=== PATIENT | female | born 1955 | race Caucasian/White ===

== ENCOUNTER 2023-05-29 07:43 | Outpatient (OUT) | payer MEDICARE, MEDICAID, SELFPAY ==
--- NOTE | 2023-05-29 07:48 | CT_ITS ---
The [address] [address] Patient Name: FRANKO NUNEZ MRN: [id number] date: 1955 Sex: F Assigned Patient Location: CT Current Patient Location: CT Accession/Order Number: [id number] Exam Date: 05/29/2023 07:55 Report Date: 05/29/2023 08:49 At the request of: FAN HOWARD Procedure: CT lung screening low-dose EXAMINATION: CT lung screening low-dose HISTORY: Lung cancer screening Z12.2, Nicotine dependence F17.219 COMPARISON: No relevant comparison available. TECHNIQUE: Axial, Coronal, and Sagittal images were created without the administration of IV contrast material. Dose reduction techniques were achieved by using automated exposure control and/or adjustment of mA and/or kV according to patient size and/or use of iterative reconstruction technique. FINDINGS: LUNGS: Mild emphysematous changes and stable appearance of a few scattered punctate 3 mm nodules. PLEURA: No mass, effusion, or pneumothorax. VASCULATURE: No abnormality. ALISIA: No mass or pathologic adenopathy. MEDIASTINUM: No mass or pathologic adenopathy. CARDIAC: No enlargement, pericardial thickening, or significant calcification. AORTA: No aneurysm or dissection. CHEST WALL: No mass or axillary adenopathy BONES: No bone lesion or fracture. LIMITED ABDOMEN: No suspicious findings. Limited images of the upper abdomen. OTHER: Negative. CT/CT lung screening low-dose IMPRESSION: 1. Lung-RADS 2- Benign Appearance or Behavior. Nodules with a very low likelihood of becoming a clinically active cancer due to size or lack of growth. Follow-up CT Chest in 1 year. Electronically authenticated by: YANELIS ENGEL Date: 05/29/2023 08:49
== END 2023-05-29 07:44 | disposition home or self-care (01) ==
LOC: CT 07:43
PROVIDERS: PCP Nurse Practitioner; Visit Provider Internal Medicine
DX: J44.9 Chronic obstructive pulmonary disease, unspecified (principal); Z12.2 Encounter for screening for malignant neoplasm of respiratory organs; F17.219 Nicotine dependence, cigarettes, with unspecified nicotine-induced disorders
CPT/HCPCS: 71271

== ENCOUNTER 2023-06-04 07:15 | Outpatient (OUT) | payer MEDICARE, MEDICAID, SELFPAY ==
--- NOTE | 2023-06-04 08:25 | CA_ITS ---
Patient: FRANKO NUNEZ Exam Date: 06/04/2023 : 1955 Gender:F Ordering : VERONICA FLOR Admission #: [id number] Family : Order #: [id number] CLICK HERE TO VIEW EXAM ECHOCARDIOGRAM REPORT PROCEDURE: CA ECHO DOPPLER COMPLETE INDICATIONS: Benign essential HTN, Nonrheumatic MV regurgitation COMPARISON: None. DESCRIPTION: COMPLETE ECHOCARDIOGRAM Real-time transthoracic echocardiography with 2D, M-mode, spectral and color flow Doppler performed. QUALITY: Technical quality was adequate. LEFT VENTRICLE: Normal chamber size. Proximal septal hypertrophy (sigmoid septum). LV EF: Global left ventricular systolic function is normal. Calculated left ventricular ejection fraction is 60% DIASTOLIC: Unable to assess diastolic function. ATRIAL SEPTUM: Inadequately seen. LEFT ATRIUM: Mild dilatation. RIGHT ATRIUM: Mild dilatation. RIGHT VENTRICLE: Normal chamber size. Normal right ventricular systolic function. TRICUSPID VALVE: Normal mobility and thickness. No stenosis with trivial regurgitation. Mild pulmonary hypertension. RVSP 38mmHg MITRAL VALVE: Mildly thickened with normal mobility. No evidence of mitral valve stenosis. Mild mitral annular calcification. Moderate mitral regurgitation. AORTIC VALVE: Normal trileaflet appearance. Thickened aortic valve. Normal leaflet mobility. No evidence of aortic valve stenosis. No aortic regurgitation. AORTIC ROOT: Normal diameter and appearance. PULMONIC VALVE: Normal thickness and mobility. No stenosis. No regurgitation. PERICARDIUM: Anterior free space; trivial effusion versus fat pad. IVC: Collapses with inspirations. Normal size. CONCLUSION: 1. Global left ventricular systolic function is normal; visually estimated ejection fraction is 60 to 65%. No wall motion abnormalities. 2. Unable to assess diastolic function. 3. Biatrial enlargement. 4. The right ventricle is normal in size and systolic function. 5. Mildly elevated right ventricular systolic pressure. 6. Moderate mitral regurgitation. 7. Anterior free space; trivial effusion versus fat pad. Adult Echocardiography Procedure Report Left Ventricle LVEDD (3.7 - 5.6 cm): 4.92 cm LVESD (2.2 - 4.0 cm): 3.40 cm LVIVS thickness (0.6 - 1.2 cm): 1.19 cm LVPW thickness (0.5 - 1.0 cm): 1.02 cm e': 0.07 m/s E - e': 14.24 LVOT Max Gradient: 1.75 mm[Hg] LVOT Area (cm2): 0.66 m/s Peak Velocity (LVOT): 0.66 m/s Mean Velocity (LVOT): 0.45 m/s LVOT Diameter 1.99 cm Left Ventricular Ejection Fraction: 60.39 % Left Atrium LA Volume Index (2D A2C): 37.64 ml/m2 Left Atrium Systolic Dimension: 4.16 cm Mitral Valve MV E to A Ratio: 1.28 Mitral Valve A-Wave Peak Velocity: 0.76 m/s Mitral Valve E-Wave Peak Velocity: 0.97 m/s Right Ventricle RV Internal Diastolic Dimension: 3.62 cm Aorta AO Root Diam: 3.21 cm Ascending Ao Diam: 2.79 cm Aortic Valve AoV Area (Peak Donaldo): 1.65 cm2, 1.65 cm2 AoV Area (VTI): 1.77 cm2, 1.77 cm2 Peak Velocity(Antegrade Flow): 1.25 m/s Peak Gradient(Antegrade Flow): 6.21 mm[Hg] Mean Velocity(Antegrade Flow): 0.81 m/s Mean Gradient(Antegrade Flow): 3.01 mm[Hg] Velocity Time Integral: 29.60 cm Tricuspid Valve Peak Velocity (Regurgitant Flow): 1.62 m/s, 2.94 m/s Pulmonic Valve Mean Gradient: 1.11 mm[Hg] Mean Velocity: 0.49 m/s Peak Velocity: 0.72 m/s, 0.75 m/s Peak Gradient: 2.23 mm[Hg], 2.06 mm[Hg] Right Atrium Right Atrium Systolic Pressure: 56.67 ml, 56.67 ml Dictated by: Isra Ortez M.D. on 06/04/2023 at 15:44 Approved by: Isra Ortez M.D. on 06/04/2023 at 15:48
== END 2023-06-04 07:16 | disposition home or self-care (01) ==
LOC: CARD 07:16
PROVIDERS: PCP Nurse Practitioner; Visit Provider Nurse Practitioner
DX: I34.0 Nonrheumatic mitral (valve) insufficiency (principal); I10 Essential (primary) hypertension
CPT/HCPCS: 93306

== ENCOUNTER 2023-06-09 09:01 | Outpatient (OUT) | payer MEDICARE, MEDICAID, SELFPAY ==
[2023-06-09 09:41] LABS: Anion Gap 10.8; BUN Creatinine Ratio 34.5; Calcium 8.9 mg/dL (8.5-10.1); Carbon Dioxide 28.4 mmol/L (21.0-32.0); Chloride 103 mmol/L (98-107); Estimated GFR (African America >60 (>=60); Estimated GFR (Non-African Ame >60 (>=60); Glucose 125 mg/dL (74-106); Potassium 4.2 mmol/L (3.5-5.1); Sodium 138 mmol/L (136-145)
== END 2023-06-09 09:02 | disposition home or self-care (01) ==
PROVIDERS: PCP Nurse Practitioner; Visit Provider Nurse Practitioner
DX: I34.0 Nonrheumatic mitral (valve) insufficiency (principal)
CPT/HCPCS: 36415; 80048

== ENCOUNTER 2023-06-19 08:49 | Outpatient (OUT) | payer MEDICARE, MEDICAID, SELFPAY ==
[2023-06-19 08:43] LABS: Basophils Percent Auto 0.6 % (0.2-2.0); Eosinophils Absolute Auto 0.2 10^3/uL (0.0-0.7); Eosinophils Percent Auto 2.8 % (0.9-7.0); Hematocrit 47.6 % (36.0-48.0); Hemoglobin 16.3 g/dL (12.0-16.0); Immature Granulocytes Abs Auto 0.02 10^3/uL (0.00-0.03); Immature Granulocytes Pct Auto 0.3 % (0.0-0.5); Lymphocytes Absolute Auto 1.6 10^3/uL (1.2-3.8); Lymphocytes Percent Auto 25.5 % (20.5-60.0); Mean Corpuscular HGB Conc 34.2 g/dL (29.9-35.2); Mean Corpuscular Hemoglobin 30.4 pg (26.7-34.0); Mean Corpuscular Volume 88.8 fL (81.0-99.0); Mean Platelet Volume 10.7 fL (9.5-13.5); Monocytes Absolute Auto 0.6 10^3/uL (0.3-0.8); Monocytes Percent Auto 9.7 % (1.7-12.0); Neutrophils Absolute Auto 3.9 10^3/uL (1.4-6.5); Neutrophils Percent Auto 61.1 % (43.0-75.0); Platelet Count 258 10^3/uL (150-450); Red Blood Count 5.36 10^6/uL (4.20-5.40); Red Cell Distribution Width 12.6 % (11.0-15.0); White Blood Count 6.4 10^3/uL (4.0-11.0)
[2023-06-19 09:33] LABS: Alanine Aminotransferase 51 U/L (14-59); Albumin Globulin Ratio 0.9; Albumin Level 3.7 g/dL (3.4-5.0); Alkaline Phosphatase 67 U/L (46-116); Anion Gap 11.8; Aspartate Amino Transferase 33 U/L (15-37); BUN Creatinine Ratio 22.9; Bilirubin Total 0.8 mg/dL (0.2-1.0); Calcium 9.4 mg/dL (8.5-10.1); Carbon Dioxide 30.2 mmol/L (21.0-32.0); Chloride 103 mmol/L (98-107); Chol HDL Ratio 4.2; Cholesterol 166 mg/dL (<=200); Estimated GFR (African America >60 (>=60); Estimated GFR (Non-African Ame >60 (>=60); Free T3 2.02 pg/mL (2.18-3.98); Globulin 4.2 g/dL; Glucose 132 mg/dL (74-106); HDL Cholesterol 40 mg/dL (40-60); Sodium 140 mmol/L (136-145); Thyroid Stimulating Hormone 7.566 uIU/mL (0.358-3.740); Total Protein 7.9 g/dL (6.4-8.2); Triglycerides 165 mg/dL (<=150)
[2023-06-19 09:51] LABS: Free T4 0.58 ng/dL (0.76-1.46)
[2023-06-19 10:52] LABS: Estimated Average Glucose 117 mg/dL; Glycohemoglobin A1C 5.7 % (4.5-6.2)
== END 2023-06-19 08:50 | disposition home or self-care (01) ==
LOC: LAB 08:49
PROVIDERS: PCP Nurse Practitioner; Visit Provider Nurse Practitioner
DX: I10 Essential (primary) hypertension (principal); E78.2 Mixed hyperlipidemia; E05.00 Thyrotoxicosis with diffuse goiter without thyrotoxic crisis or storm; R73.09 Other abnormal glucose
CPT/HCPCS: 36415; 80053; 80061; 83036; 84439; 84443; 84481; 85025

== ENCOUNTER 2023-07-09 07:47 | Outpatient (OUT) | payer MEDICARE, MEDICAID, SELFPAY ==
[2023-07-09 08:33] LABS: Anion Gap 8.6; BUN Creatinine Ratio 25.3; Calcium 9.2 mg/dL (8.5-10.1); Carbon Dioxide 29.4 mmol/L (21.0-32.0); Chloride 106 mmol/L (98-107); Estimated GFR (African America >60 (>=60); Estimated GFR (Non-African Ame 59 (>=60); Glucose 123 mg/dL (74-106); Sodium 140 mmol/L (136-145)
== END 2023-07-09 07:48 | disposition home or self-care (01) ==
LOC: LAB 07:48
PROVIDERS: PCP Nurse Practitioner; Visit Provider Nurse Practitioner
DX: I10 Essential (primary) hypertension (principal)
CPT/HCPCS: 36415; 80048

== ENCOUNTER 2023-07-17 08:31 | Emergency (ER) | payer MEDICARE, MEDICAID, SELFPAY ==
[2023-07-17 08:44] VITALS: BP 169/80; PULSE 67; RESP 18; TEMP 36.6; O2SAT 95; BMI 35.4
--- NOTE | 2023-07-17 08:51 | XR_ITS ---
The [address] [address] Patient Name: FRANKO NUNEZ MRN: [id number] date: 1955 Sex: F Assigned Patient Location: ER Current Patient Location: .[facility] Accession/Order Number: [id number] Exam Date: 07/17/2023 09:00 Report Date: 07/17/2023 09:20 At the request of: GERONIMO FERGUSON Procedure: XR shoulder RT min 2V EXAM: XR shoulder RT min 2V HISTORY: Right shoulder pain which radiates into the neck and limited range of motion for a few weeks. COMPARISON: None. TECHNIQUE: 3 view right shoulder series performed. FINDINGS: The bony alignment and mineralization are within normal limits. The right clavicle, right scapula, visualized portions of the ribs and visualized portions of the proximal right humerus are unremarkable. There is no fracture, osseous destruction or periostitis. The acromioclavicular and glenohumeral articulations are maintained. There is a type II acromion. The acromiohumeral and coracohumeral intervals are maintained. There is no soft tissue abnormality. There are small endplate spurs at a few levels along the thoracic spine. There is atheromatous calcification at the aortic arch. XR/XR shoulder RT min 2V IMPRESSION: The right shoulder is unremarkable. There are small endplate spurs at a few levels along the thoracic spine. Electronically authenticated by: SUNNY CALVILLO Date: 07/17/2023 09:20
--- NOTE | 2023-07-17 09:33 | PC.NURSE ---
PT STATES HX RT SHOULDER DISLOCATION 25 YRS AGO.C/O RT SHOULDER PAIN WITH LIMITED ROM. PT STATES FREQUENT HEAVY LIFTING.
--- NOTE | 2023-07-17 09:37 | ED.EXTPRO1 ---
HPI - Extremity Problem General Chief complaint: Extremity Problem, Nontraumatic Stated complaint: UPPER EXTREMITY INJURY, NECK & SHOULDER Time Seen by Provider: 07/17/23 09:29 Source: patient Mode of arrival: walk-in Limitations: no limitations History of Present Illness HPI Narrative: 67-year-old female presents for right shoulder pain that she's had for two weeks. She gives no history of unusual activity though she's been helping another person clean her house. No trauma such as a fall. It doesn't seem to radiate. Contralateral shoulder doesn't hurt. She is right-handed. It's worse in certain positions and moderate to severe. Related Data Previous Rx's Medication Instructions Recorded ibuprofen 800 mg tablet 800 mg PO Q8H PRN pain #20 tabs 07/17/23 tramadol 50 mg tablet 50 mg PO Q6H PRN pain 5 days #20 07/17/23 tabs Allergies Allergy/AdvReac Type Severity Reaction Status Date / Time No Known Drug Allergies Allergy Verified 07/17/23 08:44 Review of Systems ROS Narrative A ten point review of systems is negative except as noted above. Exam Narrative Exam Narrative: Nurses note and vital signs reviewed and patient is not hypoxic. General: The patient appears well and in no apparent distress. Patient is resting comfortably on cart. Skin: Warm, dry, no pallor noted. There is no rash noted. Head: Normocephalic, atraumatic Eye: Normal conjunctiva, no drainage Ears, Nose, Mouth, and Throat: oral mucosa is moist. Nares patent. Cardiovascular: Regular Rate and Rhythm Respiratory: Patient is in no distress, no accessory muscle use Back: non-tender GI: nontender Musculoskeletal: the right arm is not swollen. Radial pulse 2+. Shoulders good range of motion though this causes discomfort. No erythema or bruise or rash. No focal areas tenderness to palpation. Neurological: A&O, normal speech Psychiatric: Cooperative Constitutional Vital Signs, click to edit/add: Last Vital Signs Temp 97.9 F 07/17/23 08:44 Pulse 67 07/17/23 08:44 Resp 18 07/17/23 08:44 BP 169/80 H 07/17/23 08:44 Pulse Ox 95 07/17/23 08:44 O2 Del Method Room Air 07/17/23 08:44 Course Vital Signs Vital signs: Vital Signs Temperature 97.9 F 07/17/23 08:44 Pulse Rate 67 07/17/23 08:44 Respiratory Rate 18 07/17/23 08:44 Blood Pressure 169/80 H 07/17/23 08:44 Pulse Oximetry 95 07/17/23 08:44 Oxygen Delivery Method Room Air 07/17/23 08:44 Temperature 97.9 F 07/17/23 08:44 Pulse Rate 67 07/17/23 08:44 Respiratory Rate 18 07/17/23 08:44 Blood Pressure 169/80 H 07/17/23 08:44 Pulse Oximetry 95 07/17/23 08:44 Oxygen Delivery Method Room Air 07/17/23 08:44 MDM - Extremity (Nontraumatic) MDM Narrative Medical decision making narrative: x-ray per radiology shows no acute findings. She is placed in a sling, application checked by me and found be appropriate, she is neurovascularly intact. With orthopedics. Treatment diagnosis and follow-up were discussed with the patient. Differential Diagnosis Differential diagnosis: Likely other (shoulder sprain, shoulder strain, dislocation, separation, arthritis and rotator cuff injury) Imaging Data right shoulder x-ray: Radiologist's impression: Procedure: XR shoulder RT min 2V EXAM: XR shoulder RT min 2V HISTORY: Right shoulder pain which radiates into the neck and limited range of motion for a few weeks. COMPARISON: None. TECHNIQUE: 3 view right shoulder series performed. FINDINGS: The bony alignment and mineralization are within normal limits. The right clavicle, right scapula, visualized portions of the ribs and visualized portions of the proximal right humerus are unremarkable. There is no fracture, osseous destruction or periostitis. The acromioclavicular and glenohumeral articulations are maintained. There is a type II acromion. The acromiohumeral and coracohumeral intervals are maintained. There is no soft tissue abnormality. There are small endplate spurs at a few levels along the thoracic spine. There is atheromatous calcification at the aortic arch. IMPRESSION: The right shoulder is unremarkable. There are small endplate spurs at a few levels along the thoracic spine. Electronically authenticated by: SUNNY CALVILLO Date: 07/17/2023 09:20 Discharge Plan Discharge Chief Complaint: Extremity Problem, Nontraumatic Clinical Impression: Acute pain of right shoulder Patient Disposition: Home, Self-Care Time of Disposition Decision: 09:34 Condition: Good Mode of Transportation: Private Vehicle Prescriptions / Home Meds: New ibuprofen 800 mg tablet 800 mg PO Q8H PRN (Reason: pain) Qty: 20 0RF tramadol 50 mg tablet 50 mg PO Q6H PRN (Reason: pain) 5 Days Qty: 20 0RF Instructions: Shoulder Pain (ED) Additional Instructions: Follow-up with Dr. Drake Do not wear sling for more than three days Stand Alone Forms: Portal Instructions Referrals: JAIRO WALKER [Primary Care Provider] - 1 week
[2023-07-17 09:45] VITALS: BP 140/80
== END 2023-07-17 09:46 | disposition home or self-care (01) ==
PROVIDERS: Emergency Provider Emergency Medicine; PCP Nurse Practitioner
DX: M25.511 Pain in right shoulder (principal)
CPT/HCPCS: 73030; 99283

== ENCOUNTER 2023-08-11 07:57 | Outpatient (OUT) | payer MEDICARE, MEDICAID, SELFPAY ==
--- NOTE | 2023-08-11 08:00 | XR_ITS ---
The [address] [address] Patient Name: FRANKO NUNEZ MRN: [id number] date: 1955 Sex: F Assigned Patient Location: [facility] Current Patient Location: [facility] Accession/Order Number: [id number] Exam Date: 08/11/2023 08:10 Report Date: 08/11/2023 11:58 At the request of: YANELIS SHOOK Procedure: XR cervical spine 5V EXAMINATION: XR cervical spine 5V HISTORY: Acute Neck PAin M54.2 ; recent fall COMPARISON: No relevant comparison available. FINDINGS: BONES: Multilevel mild degenerative facet arthropathy. No significant spondylosis, scoliosis, fracture, or visible bony lesion. DISC SPACES: Mild narrowing C2-3, C4-5, C5-6. Moderate narrowing C6-7. PARASPINOUS: Negative. No paraspinous abnormality is seen. OTHER: Negative. XR/XR cervical spine 5V IMPRESSION: 1. No appreciable acute abnormality. 2. Multilevel degenerative disc disease and facet arthropathy. Electronically authenticated by: YANELIS ENGEL Date: 08/11/2023 11:58
== END 2023-08-11 07:58 | disposition home or self-care (01) ==
LOC: RAD 07:57
PROVIDERS: PCP Nurse Practitioner; Visit Provider Orthopaedic Surgery
DX: M54.2 Cervicalgia (principal)
CPT/HCPCS: 72050

== ENCOUNTER 2024-03-08 07:00 | Outpatient (OUT) | payer OTHER, SELFPAY ==
--- OUTSIDE RECORDS SUMMARY | 2024-03-08 07:03 | XMS_ITS | CCD ---
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 Final Inspector Name Role Phone RANDAL ORTIZ Attending Unavailable Daley MOWER OPERATOR - POT FILLER, Jairo J Primary [facility] ider BRAULIO LASSITER Consulting Unavailable AJIT ., JERI Attending Unavailable AJIT ., JERI Admitting Unavailable DALEY, JAIRO Primary Care Unavailable AJIT ., JERI Consulting Unavailable JANEEN POOLE Consulting Unavailable AMALIA ., FAVIO Attending Unavailable AMALIA ., FAVIO Admitting Unavailable DALEY, JAIRO Primary Care Unavailable AMALIA .FAVIO Consulting Unavailable ZIEBYADI, DR YANELIS Zaldivar Consulting Unavailable DALEY, JAIRO Primary Care Unavailable PAY ., DR HUMMEL Attending Unavailable PAY ., DR HUMMEL Admitting Unavailable PAY ., DR HUMMEL Consulting Unavailable ELTAHAWY, DR ROCK Consulting Unavailable DALEY, JAIRO Primary Care Unavailable ELTAHAWY, DR ROCK Attending Unavailable ELTAHAWY, DR ROCK Admitting Unavailable ZIEBER, DR YANELIS Zaldivar Consulting Unavailable DALEY, JAIRO Primary Care Unavailable DALEY, JAIRO Attending Unavailable DALEY, JAIRO Admitting Unavailable DALEY, JAIRO Consulting Unavailable JANET, DR XAVIER Gonzalez Consulting Unavailable DALEY, JAIRO Primary Care Unavailable DALEY, JAIRO Attending Unavailable DALEY, JAIRO Admitting Unavailable ZIEBER, DR YANELIS Zaldivar Consulting Unavailable DALEY, JAIRO Consulting Unavailable TIMMIS, DR TSAI Consulting Unavailable DALEY, JAIRO Primary Care Unavailable TIMMIS, DR TSAI Attending Unavailable TIMKVNG, DR TSAI Admitting Unavailable ZIEBYADI, DR YANELIS Zaldivar Consulting Unavailable RACHELEBYADI, DR YANELIS Zaldivar Consulting Unavailable DALEY, JAIRO Primary Care Unavailable SUNNY VALENTIN Attending Unavailable SUNNY VALENTIN Admitting Unavailable SUNNY VALENTIN Consulting Unavailable JANET, DR XAVIER Gonzalez Consulting Unavailable DALEY, JAIRO Primary Care Unavailable SAMSA ., FAN Attending Unavailable SAMSA ., FAN Admitting Unavailable SAMSA ., FAN Consulting Unavailable DR YANELIS ENGEL Consulting Unavailable DALEY, JAIRO Primary Care Unavailable SUNNY VALENTIN Attending Unavailable SUNNY VALENTIN Admitting Unavailable SUNNY VALENTIN Consulting Unavailable PARSELL, BO W Referring Unavailable DALEY, JAIRO J Primary Care Unavailable BO BLACK Referring Unavailable DALEY, JAIRO J Primary Care Unavailable JASON AU Referring Unavailable DALEY, JAIRO J Primary Care Unavailable MILYCIJASON GERBER Referring Unavailable DALEY, JAIRO J Primary Care Unavailable MILYCIJASON GERBER Referring Unavailable DALEY, JAIRO J Primary Care Unavailable JASON AU Admitting Unavailable JASON AU Attending Unavailable DALEY, JAIRO J Primary Care Unavailable PARSELL, BO W Referring Unavailable DALEY, JAIRO J Primary Care Unavailable PARSELLBO W Referring Unavailable DALEY, JAIRO J Primary Care Unavailable Daley MOWER OPERATOR-POT FILLER, Jairo J Primary Care Provid er VERONICA FLOR Attending Unavailable PRANAV ORTEZ Attending Unavailable VERONICA FLOR Attending Unavailable Unavailable Primary Care Provider Unavailabl e RIA DALEYERIMarion Cabrera Attending Unavailable DALEY, JAIRO J Referring Unavailable DALEY, JAIRO J Primary Care Unavailable DALEY, JAIRO J Referring Unavailable DALEY, JAIRO J Primary Care Unavailable CRISTOBAL WHITE Attending Unavailable DALEY, JAIRO Referring Unavailable CRISTOBAL WHITE Attending Unavailable Allergies Allergy Classification Reported Allergen(s) Allergy Type Date of Onset Reaction(s) Facility (5 sources) Silicone adhesive tape Propensity to adverse reactions to drug 3 Rash [facility] (1 source) bee venom Drug allergy (disorder) 6 [facility] (1 source) Latex Drug allergy (disorder) [facility] (6 sources) Adhesive agent; Translations: [ADHESIVE] Propensity to adverse reactions to drug 3 Rash [facility] (6 sources) Lisinopril; Translations: [LISINOPRIL] Drug Allergy 3 Cough [facility] (6 sources) Bee Venom Protein (Honey Bee); Translations: [BEE VENOM PROTEIN (HONEY BEE)] Propensity to adverse reactions to drug 3 [facility] (2 sources) Honey bee venom Allergy to substance 3 Anaphylaxis [facility] (2 sources) Lisinopril Propensity to adverse reactions 3 Cough [facility] (2 sources) Attends Briefs Small Drug Intolerance 3 Rash [facility] NEGATED: Highlighted row has been ruled out! (5 sources) Other Propensity to adverse reactions 2 [facility] Medications Current Medications Medication Drug Class(es) Dates Sig (Normalized) Sig (Original) acetaminophen 500 mg / HYDROcodone bitartrate 7.5 mg oral tablet (5 sources) Opioid Agonist take 1 tablet by mouth once as needed, then take 1 tablet by mouth every four hours as needed hydrocodone-aceta minophen (LORTAB) 7.5-500 MG per tablet Take 1 tablet by mouth. 1 tab Q 4 hrs PRN 0 Active [id number] 200 actuat albuterol 0.09 mg/actuat metered dose inhaler (12 sources) beta2-Adrenergic Agonist Start: 01-13-2024 End: 01-15-2024 take 2 puff(s) by inhalation every four hours as needed for wheezing albuterol (PROVENTIL HFA;VENTOLIN HFA) 90 mcg/actuation inhaler Indications: Chronic bronchitis with emphysema (CMS-HCC) Inhale 2 puffs every 4 (four) hours as needed for wheezing or shortness of breath. 18 g 6 01/15/2024 Active Start: 03-03-2023 End: 01-13-2024 take 2 puff(s) by inhalation every four hours as needed for wheezing albuterol (PROVENTIL HFA;VENTOLIN HFA) 90 mcg/actuation inhaler Indications: Chronic bronchitis with emphysema (CMS-HCC) Inhale 2 puffs every 4 (four) hours as needed for wheezing or shortness of breath. 18 g 6 03/03/2023 01/13/2024 Discontinued (Reorder) Start: 03-03-2023 take 2 puff(s) by mo uth every six hours as needed albuterol HFA 90 mcg/act inhaler TAKE TWO PUFFS BY MOUTH EVERY 6 HOURS NEEDED 0 03/03/2023 Active take 2 puff(s) by in halation four times daily as needed ALBUTEROL IN Inhale into the lungs. 2 puffs 4 times a day PRN 0 Active atomoxetine 25 mg oral capsule (2 sources) Norepinephrine Reuptake Inhibitor Start: 02-06-2012 take 1 capsule by mouth once daily atomoxetine (STRATTERA) 25 MG capsule Take 1 capsule by mouth daily. 30 capsule 11 02/06/2012 Active diclofenac sodium 75 mg delayed release oral tablet (10 sources) Nonsteroidal Anti-inflammatory Drug Start: 01-13-2024 End: 01-15-2024 take 1 tablet by mouth in the morning for pain, then take 1 tablet by mouth at bedtime for pain, then take 1 tablet by mouth in the morning for pain, then take 1 tablet by mouth at bedtime for pain diclofenac (VOLTAREN) 75 mg EC tablet Indications: Arthritis, multiple joint involvement Take 1 tablet (75 mg total) by mouth in the morning and 1 tablet (75 mg total) before bedtime. TAKE 1 TABLET BY MOUTH IN THE MORNING AND 1 TABLET BEFORE BEDTIME. For pain.. 180 tablet 1 01/15/2024 Active Start: 12-11-2023 End: 01-13-2024 take 1 tablet by mouth in the morning for pain, then take 1 tablet by mouth at bedtime for pain, then take 1 tablet by mouth in the morning for pain, then take 1 tablet by mouth at bedtime for pain diclofenac (VOLTAREN) 75 mg EC tablet Indications: Arthritis, multiple joint involvement Take 1 tablet (75 mg total) by mouth in the morning and 1 tablet (75 mg total) before bedtime. TAKE 1 TABLET BY MOUTH IN THE MORNING AND 1 TABLET BEFORE BEDTIME. For pain.. 180 tablet 1 12/11/2023 01/13/2024 Discontinued (Reorder) Start: 08-20-2023 take 1 tablet by tapan th in the morning, then take 1 tablet by mouth at bedtime, then take 1 tablet by mouth in the morning, then take 1 tablet by mouth at bedtime diclofenac (VOLTAREN) 75 mg EC tablet Indications: Arthritis, multiple joint involvement Take 1 tablet (75 mg total) by mouth in the morning and 1 tablet (75 mg total) before bedtime. TAKE 1 TABLET BY MOUTH IN THE MORNING AND 1 TABLET BEFORE BEDTIME. 180 tablet 1 08/20/2023 Active Start: 11-17-2022 take 1 tablet by tapan th in the morning diclofenac (VOLTAREN) 75 MG EC tablet diclofenac sodium 75 mg tablet,delayed release TAKE 1 TABLET BY MOUTH IN THE MORNING AND 1 TABLET BEFORE BEDTIME 0 11/17/2022 Active [id number] 0.3 ml EPINEPHrine 1 mg/ml auto-injector (10 sources) alpha-Adrenergic Agonist, beta-Adrenergic Agonist, Catecholamine Start: 01-16-2023 EPINEPHrine (EPIP EN) 0.3 mg/0.3 mL auto-injector USE DIRECTED FOR BEE STINGS 2 each 3 01/16/2023 Active Start: 02-07-2012 EPINEPHrine (E PIPEN 2-ROSALINDA) 0.3 MG/0.3ML DANIELLE injection Inject 0.3 mLs into the muscle once as needed for 1 dose. 1 Device 1 02/07/2012 Active esomeprazole 40 mg delayed release oral capsule (5 sources) Proton Pump Inhibitor Start: 02-07-2012 take 1 capsule by mouth once daily before breakfast esomeprazole (NEXIUM) 40 MG capsule Take 1 capsule by mouth every morning (before breakfast). 30 capsule 5 02/07/2012 Active FLUoxetine 10 mg oral capsule (10 sources) Serotonin Reuptake Inhibitor Start: 01-13-2024 End: 01-15-2024 take 1 capsule by mouth once daily FLUoxetine (PROzac) 10 mg capsule Indications: Anxiety and depression Take 1 capsule (10 mg total) by mouth nightly. 90 capsule 1 01/15/2024 Active Start: 12-11-2023 End: 01-13-2024 take 1 capsule by mouth once daily FLUoxetine (PROzac) 10 mg capsule Indications: Anxiety and depression Take 1 capsule (10 mg total) by mouth nightly. 90 capsule 1 12/11/2023 01/13/2024 Discontinued (Reorder) Start: 08-03-2023 take 1 capsule by mo uth once daily FLUoxetine (PROzac) 10 mg capsule Indications: Anxiety and depression TAKE 1 CAPSULE (10 MG TOTAL) BY MOUTH NIGHTLY. 90 capsule 1 08/03/2023 Active Start: 09-04-2022 take 1 capsule by mo uth once daily FLUoxetine (PROZAC) 10 MG capsule fluoxetine 10 mg capsule TAKE 1 CAPSULE (10 MG TOTAL) BY MOUTH NIGHTLY. 0 09/04/2022 Active 60 actuat fluticasone propionate 0.25 mg/actuat / salmeterol 0.05 mg/actuat dry powder inhaler (5 sources) Corticosteroid, beta2-Adrenergic Agonist fluticasone-salmeter ol (ADVAIR) 250-50 MCG/DOSE AEPB Inhale 1 puff into the lungs every 12 hours. 2 puffs 0 Active 30 actuat fluticasone furoate 0.1 mg/actuat / umeclidinium 0.0625 mg/actuat / vilanterol 0.025 mg/actuat dry powder inhaler (10 sources) Anticholinergic, Corticosteroid, beta2-Adrenergic Agonist Start: 2023 End: 2023 take 1 puff(s) by mouth once daily TRELEGY ELLIPTA 100-62.5-25 mcg blister with device Indications: Chronic bronchitis with emphysema (CMS-HCC) INHALE 1 PUFF BY MOUTH EVERYDAY *RINSE MOUTH AFTER USE* Strength: 100-62.5-25 mcg 28 each 6 01/15/2024 Active Start: 08-20-2023 End: 01-13-2024 take 1 puff(s) by mouth once daily TRELEGY ELLIPTA 100-62.5-25 mcg blister with device Indications: Chronic bronchitis with emphysema (CMS-HCC) INHALE 1 PUFF BY MOUTH EVERYDAY *RINSE MOUTH AFTER USE* Strength: 100-62.5-25 mcg 28 each 6 08/20/2023 01/13/2024 Discontinued (Reorder) take 1 puff(s) by [facility] once daily asftjaitfws-egvynqmsn-ptmuru (TRELEGY ELLIPTA) 100-62.5-25 MCG/ACT AEPB inhaler Trelegy Ellipta 100 mcg-62.5 mcg-25 mcg powder for inhalation INHALE 1 PUFF BY MOUTH EVERYDAY *RINSE MOUTH AFTER USE* 0 Active gabapentin 300 mg oral capsule (17 sources) Anti-epileptic Agent Start: 01-13-2024 End: 01-15-2024 take 1 capsule by mouth once daily gabapentin (NEURONTIN) 300 mg capsule Indications: Fibromyalgia Take 1 capsule (300 mg total) by mouth nightly. 90 capsule 1 01/15/2024 Active Start: 12-11-2023 End: 03-28-2024 take 1 capsule by mouth once daily in the morning gabapentin (NEURONTIN) 100 mg capsule Indications: Fibromyalgia TAKE 1 CAPSULE BY MOUTH EVERY MORNING AND AFTERNOON Strength: 100 mg 180 capsule 1 01/15/2024 Active Start: 12-11-2023 End: 01-13-2024 take 1 capsule by mouth once daily gabapentin (NEURONTIN) 300 mg capsule Indications: Fibromyalgia Take 1 capsule (300 mg total) by mouth nightly. 90 capsule 1 12/11/2023 01/13/2024 Discontinued (Reorder) Start: 08-20-2023 take 1 capsule by mo uth at bedtime gabapentin (Neurontin) 300 MG capsule Take 300 mg by mouth at bedtime 0 08/20/2023 Active Start: 08-20-2023 take 1 capsule by mo uth once daily in the morning gabapentin (NEURONTIN) 100 mg capsule Indications: Fibromyalgia TAKE 1 CAPSULE BY MOUTH EVERY MORNING AND AFTERNOON Strength: 100 mg 180 capsule 0 08/20/2023 Active Start: 10-28-2022 take 1 capsule by mo uth at bedtime gabapentin (NEURONTIN) 300 MG capsule Take 300 mg by mouth in the morning and at bedtime. 0 10/28/2022 Active levothyroxine sodium 0.025 mg oral tablet (5 sources) l-Thyroxine Start: 01-13-2024 End: 01-15-2024 take 1 tablet by mouth in the morning levothyroxine (SYNTHROID, LEVOTHROID) 25 MCG tablet Indications: Acquired hypothyroidism Take 1 tablet (25 mcg total) by mouth in the morning. 90 tablet 1 01/15/2024 Active Start: 12-15-2023 End: 01-13-2024 take 1 tablet by mouth in the morning levothyroxine (SYNTHROID, LEVOTHROID) 25 MCG tablet Indications: Acquired hypothyroidism Take 1 tablet (25 mcg total) by mouth in the morning. 90 tablet 1 12/15/2023 01/13/2024 Discontinued (Reorder) Start: 10-02-2023 take 1 tablet by tapan th in the morning levothyroxine (SYNTHROID, LEVOTHROID) 50 MCG tablet Indications: Acquired hypothyroidism TAKE 1 TABLET BY MOUTH IN THE MORNING 90 tablet 1 10/02/2023 Active lisinopril 10 mg oral tablet (3 sources) Angiotensin Converting Enzyme Inhibitor Start: 06-25-2023 End: 12-22-2023 take 1 tablet by mouth in the morning lisinopril 10 MG tablet Take 10 mg by mouth in the morning. 0 06/25/2023 12/22/2023 Active losartan potassium 25 mg oral tablet (5 sources) Angiotensin 2 Receptor Julio C Start: 07-03-2023 End: 07-02-2024 losartan (COZAAR) 25 mg tablet Take 1 tablet (25 mg total) by mouth. 0 07/03/2023 07/02/2024 Active methocarbamol 500 mg oral tablet (2 sources) Muscle Relaxant take 1 tablet by mouth three times daily as needed methocarbamol (Robaxin) 500 MG tablet Take 1 tablet by mouth 3 (three) times a day as needed 0 Active metoprolol tartrate 25 mg oral tablet (12 sources) beta-Adrenergic Julio C Start: 01-13-2024 End: 01-15-2024 metoprolol tartrate (LOPRESSOR) 25 mg tablet Indications: Benign essential HTN TAKE 1 TABLET IN THE MORNING AND 1 TABLET BEFORE BEDTIME Strength: 25 mg 180 tablet 1 01/15/2024 Active Start: 12-11-2023 End: 01-13-2024 metoprolol tartrate (LOPRESS OR) 25 mg tablet Indications: Benign essential HTN TAKE 1 TABLET IN THE MORNING AND 1 TABLET BEFORE BEDTIME Strength: 25 mg 180 tablet 1 12/11/2023 01/13/2024 Discontinued (Reorder) Start: 08-20-2023 take 1 tablet by tapan th in the morning metoprolol tartrate (Lopressor) 25 MG tablet Take 1 tablet by mouth in the morning and 1 tablet before bedtime. 0 08/20/2023 Active Start: 10-31-2022 take 1 tablet by tapan th twice daily metoprolol tartrate (LOPRESSOR) 25 MG tablet metoprolol tartrate 25 mg tablet TAKE 1 TABLET BY MOUTH TWICE A DAY 0 10/31/2022 Active nitroglycerin 0.4 mg sublingual tablet (10 sources) Nitrate Vasodilator nitroglyceri n (NITROSTAT) 0.4 MG SL tablet as directed Sublingual 0 Active propylthiouracil 50 mg oral tablet (8 sources) Thyroid Hormone Synthesis Inhibitor Start: 2022 propylthiouracil (PTU) 50 MG tablet propylthiouracil 50 mg tablet TAKE 1 TABLET BY MOUTH IN THE MORNING, 1 TABLET AT NOON, 1 TABLET BEFORE BEDTIME 0 10/31/2022 Active spironolactone 25 mg oral tablet (5 sources) Aldosterone Antagonist Start: 2022 End: 2023 take 1 tablet by mouth in the morning spironolactone (ALDACTONE) 25 mg tablet Take 1 tablet (25 mg total) by mouth in the morning. 0 05/23/2023 05/22/2024 Active tiotropium (5 sources) Anticholinergic Tiotropium Bromi de Monohydrate (SPIRIVA HANDIHALER IN) Inhale into the lungs daily. 0 Active traMADol hydrochloride 50 mg oral tablet (2 sources) Opioid Agonist Start: 2022 take 1 tablet by mouth every eight hours as needed for pain traMADol (Ultram) 50 MG tablet TAKE 1 TABLET BY MOUTH EVERY 8 HOURS NEEDED FOR PAIN FOR UP TO 5 DAYS. 0 01/14/2023 Active traZODone hydrochloride 150 mg oral tablet (12 sources) Serotonin Reuptake Inhibitor Start: 2023 End: 2023 take 1 tablet by mouth once daily traZODone (DESYREL) 150 mg tablet Indications: Primary insomnia Take 1 tablet (150 mg total) by mouth nightly. 90 tablet 1 01/15/2024 Active Start: 08-20-2023 End: 01-13-2024 take 1 tablet by mouth once daily traZODone (DESYREL) 150 mg tablet Indications: Primary insomnia Take 1 tablet (150 mg total) by mouth nightly. 90 tablet 1 08/20/2023 01/13/2024 Discontinued (Reorder) Start: 10-31-2022 take 1 tablet by tapan th at bedtime traZODone (DESYREL) 150 MG tablet trazodone 150 mg tablet TAKE 1 TABLET BY MOUTH AT BEDTIME 0 10/31/2022 Active UNABLE TO FIND (5 sources) UNABLE TO FIND E pi pen PRN 0 Active Completed/Discontinued Medications Medication Drug Class(es) Dates Sig (Normalized) Sig (Original) iopamidol (ISOVUE-370) 76 % injection 120 mL (1 source) Start: 12-26-2022 End: 12-26-2022 iopamidol (ISOVUE-370) 76 % injection 120 mL Problems Active Problems Problem Classification Problem Date Documented Date Episodic/Chronic Alcohol-related disorders (2 sources) Alcohol dependence, uncomplicated; Translations: [Alcohol dependence, uncomplicated] Onset: 05-23-2023 Chronic Anxiety disorders (3 sources) Anxiety disorder, unspecified; Translations: [Mixed anxiety and depressive disorder] Onset: 12-11-2023 01-13-2024 Chronic Calculus of urinary tract (13 sources) Kidney stone; Translations: [Calculus of kidney] Onset: 08-11-2022 Episodic Cancer of cervix (1 source) Personal history of malignant neoplasm of cervix uteri; Translations: [PERS HX MALIG NEOPLASM CERV UTERI] Onset: 12-05-2022 Episodic Chronic obstructive pulmonary disease and bronchiectasis (9 sources) Emphysema, unspecified; Translations: [Chronic bronchitis] Onset: 04-01-2022 04-01-2022 Chronic Disorders usually diagnosed in infancy, childhood, or adolescence (8 sources) Attention deficit hyperactivity disorder, predominantly inattentive type; Translations: [Other specified behavioral and emotional disorders with onset usually occurring in childhood and adolescence] Onset: 02-06-2012 02-06-2012 Chronic E Codes: Fall (1 source) Fall on same level from slipping, tripping and stumbling with subsequent striking against unspecified object, initial encounter; Translations: [FALL SAME LVL SLIP STRK UNS OBJ INT] Onset: 12-05-2022 Episodic Esophageal disorders (1 source) Gastro-esophageal reflux disease without esophagitis; Translations: [GERD WITHOUT ESOPHAGITIS] Onset: 12-05-2022 Chronic Essential hypertension (10 sources) Essential (primary) hypertension; Translations: [Essential hypertension] Onset: 11-10-2019 04-01-2022 Chronic Headache; including migraine (1 source) Headache; including migraine; Translations: [HEADACHE UNSPECIFIED] Onset: 10-25-2022 Heart valve disorders (9 sources) Nonrheumatic mitral (valve) insufficiency; Translations: [Mitral valve regurgitation] Onset: 06-14-2021 Chronic Immunizations and screening for infectious disease (2 sources) Encounter for screening for other viral diseases; Translations: [Encounter for screening for other viral diseases] Onset: 12-11-2023 Episodic Joint disorders and dislocations; trauma-related (6 sources) Chondromalacia of left patella; Translations: [Chondromalacia patellae, left knee] Onset: 11-11-2022 11-11-2022 Chronic Miscellaneous mental health disorders (3 sources) Primary insomnia; Translations: [Primary insomnia] Onset: 08-20-2023 01-13-2024 Chronic Mycoses (2 sources) Onychomycosis; Translations: [Tinea unguium] 12-04-2023 Episodic Osteoarthritis (6 sources) Unspecified osteoarthritis, unspecified site; Translations: [Arthritis of left knee] Onset: 06-21-2022 11-11-2022 Chronic Other aftercare (1 source) Other [facility] (current) drug therapy; Translations: [OTH BLANKET CUTTER HAND CURRENT DRUG THERAPY] Onset: 12-05-2022 Episodic Other connective tissue disease (5 sources) Fibromyalgia; Translations: [Fibromyalgia] Onset: 11-11-2022 11-11-2022 Episodic Other connective tissue disease (2 sources) Disorder of musculoskeletal system; Translations: [Other specified disorders of synovium, right ankle and foot] 12-04-2023 Episodic Other connective tissue disease (2 sources) Pain of toes of bilateral feet; Translations: [Pain in right toe(s)] 12-04-2023 Episodic Other ear and sense organ disorders (1 source) Unspecified hearing loss, left ear; Translations: [UNSPECIFIED HEARING LOSS LEFT EAR] Onset: 12-05-2022 Chronic Other ear and sense organ disorders (7 sources) Sensorineural hearing loss, unilateral, left ear, with unrestricted hearing on the contralateral side; Translations: [Sensorineural hearing loss, unilateral] Onset: 10-21-2022 Chronic Other ear and sense organ disorders (1 source) Unspecified hearing loss, unspecified ear; Translations: [UNS HEARING LOSS UNSPECIFIED EAR] Onset: 06-21-2022 Chronic Other ear and sense organ disorders (3 sources) Deafness of left ear; Translations: [Unspecified hearing loss, left ear] Onset: 04-01-2022 04-01-2022 Chronic Other infections; including parasitic (1 source) H/O: infectious disease; Translations: [Personal history of other infectious and parasitic diseases] 11-17-2023 Episodic Other lower respiratory disease (3 sources) Pleurodynia; Translations: [PLEURODYNIA] Onset: 12-03-2022 Episodic Other nervous system disorders (1 source) Other chronic pain; Translations: [OTHER CHRONIC PAIN] Onset: 12-05-2022 Chronic Other nervous system disorders (3 sources) Chronic pain syndrome; Translations: [Chronic pain syndrome] Onset: 11-11-2022 11-11-2022 Chronic Other non-traumatic joint disorders (1 source) Arthropathy, unspecified; Translations: [Arthropathy, unspecified] Onset: 12-11-2023 Chronic Other non-traumatic joint disorders (2 sources) Arthropathy of multiple joints; Translations: [Arthropathy, unspecified] 01-13-2024 Chronic Other nutritional; endocrine; and metabolic disorders (1 source) Obesity, unspecified; Translations: [OBESITY UNSPECIFIED] Onset: 03-11-2022 Chronic Other nutritional; endocrine; and metabolic disorders (1 source) Body mass index (BMI) 35.0-35.9, adult; Translations: [BODY MASS INDEX BMI 35.0-35.9 ADULT] Onset: 03-11-2022 Chronic Other nutritional; endocrine; and metabolic disorders (3 sources) Morbid obesity; Translations: [Morbid (severe) obesity due to excess calories] Onset: 11-11-2022 11-11-2022 Chronic Other nutritional; endocrine; and metabolic disorders (1 source) Morbid (severe) obesity due to excess calories; Translations: [Morbid (severe) obesity due to excess calories] Onset: 11-11-2022 Chronic Other upper respiratory infections (1 source) Chronic maxillary sinusitis; Translations: [CHRONIC MAXILLARY SINUSITIS] Onset: 10-25-2022 Chronic Residual codes; unclassified (1 source) Acquired absence of both cervix and uterus; Translations: [ACQUIRED ABSENCE BOTH CERVIX AND UTERUS] Onset: 12-05-2022 Episodic Spondylosis; intervertebral disc disorders; other back problems (9 sources) Lumbar post-laminectomy syndrome; Translations: [Postlaminectomy syndrome, not elsewhere classified] Onset: 11-11-2022 11-11-2022 Chronic Spondylosis; intervertebral disc disorders; other back problems (1 source) Dorsalgia, unspecified; Translations: [DORSALGIA UNSPECIFIED] Onset: 12-05-2022 Episodic Substance-related disorders (13 sources) Nicotine dependence, cigarettes, uncomplicated; Translations: [Nicotine dependence, cigarettes, with unspecified nicotine-induced disorders] Onset: 04-01-2022 Chronic Superficial injury; contusion (3 sources) Contusion of left front wall of thorax, initial encounter; Translations: [Contusion of right elbow, initial encounter] Onset: 03-11-2022 Episodic Thyroid disorders (7 sources) Graves' disease; Translations: [Thyrotoxicosis with diffuse goiter without thyrotoxic crisis or storm] Onset: 05-25-2020 04-01-2022 Chronic Past or Other Problems Problem Classification Problem Date Documented Da te Episodic/Chronic Abdominal pain (4 sources) Unspecified abdominal pain; Translations: [UNSPECIFIED ABDOMINAL PAIN] Onset: 08-07-2022 Episodic Cancer of ovary (1 source) Personal history of malignant neoplasm of ovary; Translations: [PERSONAL HX MALIG NEOPLASM OVARY] Onset: 06-21-2022 Episodic Cardiac dysrhythmias (5 sources) Intermittent palpitations; Translations: [Palpitations] Onset: 05-23-2023 08-20-2023 Episodic Gastrointestinal hemorrhage (4 sources) Melena; Translations: [MELENA] Onset: 06-19-2022 Episodic Genitourinary symptoms and ill-defined conditions (4 sources) Rafael hematuria; Translations: [Gross hematuria] Onset: 12-12-2022 Episodic Mood disorders (4 sources) Mood disorders; Translations: [Depression, unspecified] Onset: 08-20-2023 Resolved: 12-11-2023 08-20-2023 Nonspecific chest pain (5 sources) Atypical chest pain; Translations: [Other chest pain] Onset: 05-19-2018 08-20-2023 Episodic Other bone disease and musculoskeletal deformities (1 source) Other specified disorders of bone density and structure, left thigh; Translations: [OTH D/O BONE DEN STRUCT LT THIGH] Onset: 08-18-2022 Episodic Other bone disease and musculoskeletal deformities (3 sources) Bone cyst; Translations: [Other cyst of bone, unspecified site] Onset: 05-23-2023 08-20-2023 Episodic Other connective tissue disease (1 source) Pain in right foot; Translations: [PAIN IN RIGHT FOOT] Onset: 04-04-2022 Episodic Other connective tissue disease (1 source) Fibromyalgia; Translations: [Fibromyalgia] Onset: 11-11-2022 Episodic Other non-traumatic joint disorders (4 sources) Pain in right ankle and joints of right foot; Translations: [PAIN IN RIGHT ANKLE] Onset: 07-03-2022 Episodic Other non-traumatic joint disorders (4 sources) Pain in right elbow; Translations: [PAIN IN RIGHT ELBOW] Onset: 03-08-2022 Episodic Other screening for suspected conditions (not mental disorders or infectious disease) (2 sources) Encounter for screening for osteoporosis; Translations: [Encounter for screening mammogram for malignant neoplasm of breast] Onset: 08-18-2022 Episodic Other upper respiratory infections (1 source) Acute maxillary sinusitis, unspecified; Translations: [ACUTE MAXILLARY SINUSITIS UNS] Onset: 10-25-2022 Episodic Residual codes; unclassified (8 sources) Insomnia; Translations: [Insomnia, unspecified] Onset: 02-06-2012 02-06-2012 Episodic Residual codes; unclassified (5 sources) Tobacco user; Translations: [Tobacco use] Onset: 02-06-2012 02-06-2012 Episodic Residual codes; unclassified (4 sources) Asymptomatic menopausal state; Translations: [ASYMPTOMATIC MENOPAUSAL STATE] Onset: 08-13-2022 Episodic Residual codes; unclassified (1 source) Family history of leukemia; Translations: [FAMILY HISTORY OF LEUKEMIA] Onset: 08-18-2022 Episodic Residual codes; unclassified (1 source) Family history of malignant neoplasm of kidney; Translations: [FAM HX MALIGNANT NEOPLASM KIDNEY] Onset: 08-18-2022 Episodic Residual codes; unclassified (1 source) Acquired absence of ovaries, bilateral; Translations: [ACQUIRED ABSENCE OVARIES BILATERAL] Onset: 06-21-2022 Episodic Unclassified (1 source) AMS, low o2 stats Onset: 09-11-2022 Unclassified (3 sources) Onset: 08-20-2023 Resolved: 12-15-2023 08-20-2023 Results Test Name Value Interpretation Reference Range Facility HCV Ab IA Qlon 12-11-2023 ANTI HCV W/PCR REFLX Reactive Abnormal NRCT [facility] Comment on above: Result Comment: Supplemental testing for HCV RNA by PCR has been ordered per CDC recommendations. Ejbvuz-la-dwjwqf ratio is >=1.00. Performed By: #### T HYR, 83167-3 #### [facility] ([id number]) [address], [address] [place] [address] HCV RNA PAULY+probe Qnon 12-11 HCV RNA QUANT PCR [id number] IU/mL Abnormal Undetected [facility] Comment on above: Result Comment: NOTE Result in log IU/mL is 7.28. ADDITIONAL INFORMATION The quantification range of this assay is 15 to 100,000,000 IU/mL (1.18 log to 8.00 log IU/mL). Testing was performed using the diomedes HCV test ([employer] Test Performed by: [facility] [address] [place] [address] [employer]: Raj Bhatti M.D. Ph.D.; CLIA# [id number] Performed By: #### T HYR, 44250-1 #### [facility] ([id number]) [address] [place] [address], [facility] [address] [place] [address] THYROID PROFILEon 12-11-2023 Free T4 [Mass/Vol] 1.29 ng/dL Normal 0.61-1.60 [facility] Comment on above: Performed By: #### T HYR, 35253-0 #### [facility] ([id number]) [address] [place] [address], [address] [address] TSH 0.45 uIU/mL Low 0.49-4.67 [facility] Comment on above: Performed By: #### T HYR, 76998-1 #### [facility] ([id number]) [address] [place] [address], [address] [address] Office Visiton 11-17-2023 Follow-up visit [id number] Robyn Thorpe 1955 F Date Provider Department Center 11/17/2023 Julisa-PRANAV ORTEZ Family History Problem Relation Age of Onset Diabetes Mother Coronary artery disease Mother Hypertension Mother Coronary artery disease Father Hypertension Father Other Father Coronary artery disease Brother Family Status - Relation Status Age at Mother Father Brother Level of Service:28507 SC OFFICE/OUTPATIENT ESTABLISHED LOW MDM 20 MIN Normal [facility] Orders Onlyon 11-17-2023 Orders Only [id number] Robyn Thorpe Rick 1955 F Date Provider Department Center 11/17/2023 PAT BAL GEE Alejandro Family History Problem Relation Age of Onset Diabetes Mother Coronary artery disease Mother Hypertension Mother Coronary artery disease Father Hypertension Father Other Father Coronary artery disease Brother Family Status - Relation Status Age at Mother Father Brother [facility] 36on 07-03-2023 36 Patient stopped by the office today c/o cough with lisinopril. Can we switch her to losartan? [facility] Orders Onlyon 06-25-2023 Orders Only [id number] Karson Thorpegiancarlo Cabrera 1955 Date Provider Department Center 06/25/2023 VERONICA BELLO GEE Thurman Family History Problem Relation Age of Onset Diabetes Mother Coronary artery disease Mother Hypertension Mother Coronary artery disease Father Hypertension Father Other Father Coronary artery disease Brother Family Status - Relation Status Age at Mother Father Brother [facility] 37on 06-10-2023 37 Increase lisinopril to 5 mg daily ( take 2 of the 2.5 mg tabs until the bottle is empty and then next bottle will be the 5 mg tabs) Have blood checked in 1 week- to check kidney function and electrolytes Continue all other meds [facility] Office Visiton 06-10-2023 Follow-up visit [id number] Gila,Robyn J 1955 Date Provider Department Center 06/10/2023 VERONICA BELLO GEE Alejandro Family History Problem Relation Age of Onset Diabetes Mother Coronary artery disease Mother Hypertension Mother Coronary artery disease Father Hypertension Father Other Father Coronary artery disease Brother Family Status - Relation Status Age at Mother Father Brother Level of Service:06112 SC OFFICE/OUTPATIENT ESTABLISHED MOD MDM 30-39 MIN Reason for Visit and Comments: Follow-up [[id number]] [facility] Telephoneon 06-10-2023 Telephone [id number] Karson Thorpegiancarlo Cabrera 1955 Date Provider Department Center 06/10/2023 PAT BAL Family History Problem Relation Age of Onset Diabetes Mother Coronary artery disease Mother Hypertension Mother Coronary artery disease Father Hypertension Father Other Father Coronary artery disease Brother Family Status - Relation Status Age at Mother Father Brother [facility] Orders Onlyon 06-02-2023 Orders Only [id number] Robyn Thorpe 1955 Provider Department Center 06/02/2023 VERONICA BELLO . Family History Problem Relation Age of Onset Diabetes Mother Coronary artery disease Mother Hypertension Mother Coronary artery disease Father Hypertension Father Other Father Coronary artery disease Brother Family Status - Relation Status Age at Mother Father Brother [facility] 36on 05-30-2023 36 Aline- does she have a f/U scheduled? [facility] 37on 05-23-2023 37 Start Spironolactone/Aldac tone 1 tab daily in the morning for high blood pressure and water retention Please have blood drawn next week to check kidney function and electrolytes. Continue to take all other medications [facility] Office Visiton 05-23-2023 Follow-up visit [id number] Robyn Thorpe 1955 Provider Department [place] 05/23/2023 VERONICA BELLO GEE [facility] Family History Problem Relation Age of Onset Diabetes Mother Coronary artery disease Mother Hypertension Mother Coronary artery disease Father Hypertension Father Other Father Coronary artery disease Brother Family Status - Relation Status Age at Mother Father Brother Level of Service:03654 SC OFFICE/OUTPATIENT ESTABLISHED MOD MDM 30-39 MIN [facility] XR ABDOMEN (KUB) (SINGLE AP VIEW)on 04-27-2023 XR ABDOMEN (KUB) (SINGLE AP VIEW) EXAMINATION: ONE SUPINE XRAY VIEW(S) OF THE ABDOMEN 04/25/2023 1:21 pm COMPARISON: None. HISTORY: ORDERING SYSTEM PROVIDED HISTORY: Renal calculus FINDINGS: Bowel gas pattern nonobstructed. Renal shadows partially obscured by bowel gas and fecal debris. No definite renal or ureteral stones. No acute osseous abnormality. IMPRESSION: No definite renal or ureteral stones Interpreted by: Олег Acosta DO Signed by: Олег Acosta DO 04/27/23 Final result Normal [facility] OPERATIVE REPORTon OPERATIVE REPORT [address] [address] OPERATIVE REPORT PATIENT NAME: ROBYN THORPE : 1955 MED REC NO: [id number] ROOM: ACCOUNT NO: [id number] ADMIT DATE: 01/21/2023 PROVIDER: Jason Au DATE OF PROCEDURE: 01/21/2023 SURGEON: Dr. Jason Au. PERINATAL DIRECTOR: None. PREOPERATIVE DIAGNOSIS: Right ureteral calculus. POSTOPERATIVE DIAGNOSIS: Right ureteral calculus. PROCEDURE PERFORMED: Right extracorporeal shockwave lithotripsy. ANESTHESIA: General. COMPLICATIONS: None. ESTIMATED BLOOD LOSS: Minimal. SPECIMENS: None. PROSTHESIS: None. DISPOSITION: Stable. FINDINGS: A 7-mm right renal calculus. INDICATIONS: The patient is a 67-year-old female with known right-sided renal calculus, here now for definitive therapy in the form of ESWL. DESCRIPTION OF PROCEDURE: The patient was taken back to the operating room after informed consent including all risks, benefits, and alternatives were obtained. The patient was transferred from the [facility] onto the operating room table, where she was induced under general anesthesia, and given IV Ancef for preoperative antibiotic prophylaxis. To begin the case, she was placed into the lithotripsy table. The stone was identified on biplanar fluoroscopy. We then ablated the stone. We did use a total of 3000 shocks, power level ranging between 3 and 7 and frequency between 60 and 90 in 3000 shocks. We did remove the treatment head and we saw fluoroscopic ablation of the calculus. She was then awoken from general anesthesia, transferred to the [facility], and taken to the PACU in satisfactory condition by Nursing and Anesthesia Teams. PLAN: The patient will be discharged home per PACU criterion and follow up with us in three months with a repeat KUB. JASON AU [id number] Doc#: [id number] CC: Normal [facility] Basic Metabolic Panelon 03- Anion gap [Moles/Vol] 8 mmol/L Low 9 - 17 mmol/L [facility] Calcium [Mass/Vol] 9.4 mg/dL 8.6 - 10. 4 mg/dL [facility] Chloride [Moles/Vol] 108 mmol/L High 98 - 107 mmol/L [facility] CO2 [Moles/Vol] 25 mmol/L 20 - 31 mmol/L [facility] Creatinine [Mass/Vol] 0.68 mg/dL 0.50 - 0.90 mg/dL [facility] GFR/1.73 sq M.predicted MDRD (S/P/Bld) [Vol rate/Area] - PINF [facility] Comment on above: These results are not intended for use in patients <18 years of age. eGFR results are calculated without a race factor using the 2020 CKD-EPI equation. Careful clinical correlation is recommended, particularly when comparing to results calculated using previous equations. The CKD-EPI equation is less accurate in patients with extremes of muscle mass, extra-renal metabolism of creatine, excessive creatine ingestion, or following therapy that affects renal tubular secretion. Glucose [Mass/Vol] 109 mg/dL High 70 - 99 mg/dL [facility] Interpretation and review of laboratory results Abnormal [facility] Potassium [Moles/Vol] 3.6 mmol/L Low 3.7 - 5.3 mmol/L [facility] Sodium [Moles/Vol] 141 mmol/L 135 - 144 mmol/L [facility] Urea nitrogen [Mass/Vol] 20 mg/dL 8 - 23 mg/dL [facility] Urea nitrogen/Creatinine (Bld) [Mass ratio] 29 High 9 - 20 [facility] Basic Metabolic Profon 01-03 Anion gap [Moles/Vol] 8 mmol/L Low -17 [facility] Comment on above: Performed By: #### B KARINA, CDP #### [facility] [address] [place] [address] [employer]: Xavier Cuevas MD BUN/CRE Ratio 29 High 9-20 [facility] Comment on above: Performed By: #### B KARINA, CDP #### [facility] [address] [place] [address] [employer]: Xavier Cuevas MD Calcium [Mass/Vol] 9.4 mg/dL Normal 8.6-10.4 [facility] Comment on above: Performed By: #### B KARINA, CDP #### [facility] [address] [place] [address] [employer]: Xavier Cuevas MD Chloride [Moles/Vol] 108 mmol/L High 98-107 [facility] Comment on above: Performed By: #### B MP, CDP #### [facility] [address] [place] [address] [employer]: Xavier Cuevas MD CO2 [Moles/Vol] 25 mmol/L Normal 20-31 [facility] Comment on above: Performed By: #### B KARINA, CDP #### [facility] [address] [place], [place] [id number] [employer]: Xavier Cuevas MD Creatinine [Mass/Vol] 0.68 mg/dL Normal 0.50-0.90 [facility] Comment on above: Performed By: #### B KARINA, CDP #### [facility] [address] [place] [address] [employer] B[employer]: Xavier Cuevas MD GFR/1.73 sq M.predicted among non-blacks MDRD (S/P/Bld) [Vol rate/Area] mL/min/{1.73_m2} Normal >60 [facility] Comment on above: Result Comment: These results are not intended for use in patients <18 years of age. eGFR results are calculated without a race factor using the 2020 CKD-EPI equation. Careful clinical correlation is recommended, particularly when comparing to results calculated using previous equations. The CKD-EPI equation is less accurate in patients with extremes of muscle mass, extra-renal metabolism of creatine, excessive creatine ingestion, or following therapy that affects renal tubular secretion. Performed By: #### B KARINA, CDP #### [facility] [address] [place] [address] [employer]: Xavier Cuevas MD Glucose [Mass/Vol] 109 mg/dL High 70-99 [facility] Comment on above: Performed By: #### B KARINA, CDP #### [facility] [address] [place] [address] [employer]: Xavier Cuevas MD Potassium [Moles/Vol] 3.6 mmol/L Low 3.7-5.3 [facility] Comment on above: Performed By: #### B KARINA, CDP #### [facility] [address] [place], [place] [id number] [employer]: Xavier Cuevas MD Sodium [Moles/Vol] 141 mmol/L Normal 135-144 [facility] Comment on above: Performed By: #### B KARINA, CDP #### [facility] [address] [place], [place] [id number] [employer]: Xavier Cuevas MD Urea nitrogen [Mass/Vol] 20 mg/dL Normal 8-23 [facility] Comment on above: Performed By: #### B KARINA, CDP #### [facility] [address] [place] [address] [employer] Bander: Xavier Cuevas MD CBC with Auto Differentialon 01-03-2023 Absolute Eos # 0.20 [facility] Absolute Immature Granulocyte 0.03 [facility] Absolute Lymph # 1.05 Low [facility] Absolute Sutter # 0.78 [facility] Basophils (Bld) [#/Vol] 0.04 10*3/uL [facility] Basophils/100 WBC (Bld) 1 % 0 - 2 % [facility] Eosinophils/100 WBC (Bld) 3 % 1 - 4 % [facility] Hematocrit (Bld) [Volume fraction] 43.3 % 36.3 - 47.1 % [facility] Hemoglobin (Bld) [Mass/Vol] 14.3 g/dL 11.9 - 15.1 g/dL [facility] Immature granulocytes/100 WBC (Bld) 1 % High 0 [facility] Interpretation and review of laboratory results Abnormal [facility] Lymphocytes/100 WBC (Bld) 16 % Low 24 - 43 % [facility] MCH (RBC) [Entitic mass] 28.9 pg 25.2 - 33.5 pg [facility] MCHC (RBC) [Mass/Vol] 33.0 g/dL 28.4 - 34.8 g/dL [facility] MCV (RBC) [Entitic vol] 87.5 fL 82.6 - 102.9 fL [facility] Monocytes/100 WBC (Bld) 12 % 3 - 12 % [facility] NRBC Automated 0.0 0.0 per 100 WBC [facility] Platelet distribution width (Bld) [Ratio] 13.2 % 11.8 - 14.4 % [facility] Platelet mean volume (Bld) [Entitic vol] 10.9 fL 8.1 - 13.5 fL [facility] Platelets (Bld) [#/Vol] 227 10*3/uL [facility] RBC (Bld) [#/Vol] 4.95 10*6/uL 3.95 - 5.1 1 m/uL [facility] Segmented neutrophils/100 WBC (Bld) 67 % High 36 - 65 % [facility] Segs Absolute 4.37 [facility] WBC (Bld) [#/Vol] 6.5 10*3/uL [facility] CBC with Diffon 01-03-2023 Abs. Basophil 0.04 k/uL Normal 0.00-0.20 [facility] Comment on above: Performed By: #### B KARINA, CDP #### [facility] [address] [place] [address] [place] [address] [employer] B[employer]: Xavier Cuevas MD Abs.Imm.Granulocyte 0.03 k/uL Normal 0.00-0.30 [facility] Comment on above: Performed By: #### B KARINA, CDP #### [facility] [address] [place] [address] [employer] Bander: Xavier Cuevas MD Abs.Neutrophil (Seg) 4.37 k/uL Normal 1.50-8.10 [facility] Comment on above: Performed By: #### B MP, CDP #### [facility] [address] [place] [address] Dr[address] [place], [place] [address] [employer]: Xavier Cuevas MD Basophils/100 WBC (Bld) 1 % Normal 0-2 [facility] Comment on above: Performed By: #### B MP, CDP #### [address] [place], [facility] [employer]: Xavier Cuevas MD Eosinophils (Bld) [#/Vol] 0.20 10*3/uL Normal 0.00-0.44 [facility] Comment on above: Performed By: #### B MP, CDP #### [address] [place], [place] [address] [employer]: Xavier Cuevas MD Eosinophils/100 WBC (Bld) 3 % Normal 1-4 [facility] Comment on above: Performed By: #### B KARINA, CDP #### [address] [place], [facility]83 [employer]: Xavier Cuevas MD Erythrocyte distribution width (RBC) [Ratio] 13.2 % Normal 11.8-14.4 [facility] Comment on above: Performed By: #### B KARINA, CDP #### [address] [place], [facility] ( [employer]: Xavier Cuevas MD Hematocrit (Bld) [Volume fraction] 43.3 % Normal 36.3-47.1 [facility] Comment on above: Performed By: #### B MP, CDP #### [address] [place], [facility]83 [employer]: Xavier Cuevas MD Hemoglobin (Bld) [Mass/Vol] 14.3 g/dL Normal 11.9-15.1 [facility] Comment on above: Performed By: #### B MP, CDP #### [facility] [address] [place], [place] [address] [employer]: Xavier Cuevas MD Immature granulocytes/100 WBC (Bld) 1 % High 0 [facility] Comment on above: Performed By: #### B MP, CDP #### [facility] [address] [place], [place] [phone] [employer]ander: Xavier Cuevas MD Lymphocytes (Bld) [#/Vol] 1.05 10*3/uL Low 1.10-3.70 [facility] Comment on above: Performed By: #### B KARINA, CDP #### [address] [place], [place] [id number] [employer]: Xavier Cuevas MD Lymphocytes/100 WBC (Bld) 16 % Low 24-43 [facility] Comment on above: Performed By: #### B KARINA, CDP #### [address] [place], [place] [id number] [employer]ander: Xavier Cuevas MD MCH (RBC) [Entitic mass] 28.9 pg Normal 25.2-33.5 [facility] Comment on above: Performed By: #### B KARINA, CDP #### [address] [place], [place] [id number] [employer]: Xavier Cuevas MD MCHC (RBC) [Mass/Vol] 33.0 g/dL Normal 28.4-34.8 [facility] Comment on above: Performed By: #### B KARINA, CDP #### [address] [place], [place] [phone] [employer] Bander: Xavier Cuevas MD MCV (RBC) [Entitic vol] 87.5 fL Normal 82.6-102.9 [facility] Comment on above: Performed By: #### B MP, CDP #### [address] [place] [address] Hand Edge Bander: Xavier Cuevas MD Monocytes (Bld) [#/Vol] 0.78 10*3/uL Normal 0.10-1.20 [facility] Comment on above: Performed By: #### B MP, CDP #### [facility] [address] [place] [address] [employer] Bander: Xavier Cuevas MD Monocytes/100 WBC (Bld) 12 % Normal 3-12 [facility] Comment on above: Performed By: #### B MP, CDP #### [facility] [address] [place] [address] [employer] Bander: Xavier Cuevas MD Neutrophil (Seg) 67 % High 36-65 [facility] Comment on above: Performed By: #### B KARINA, CDP #### [facility] [address] [place] [address] Hand Edge Bander: Xavier Cuevas MD NRBC Automated 0.0 per 100 WBC Normal 0.0 [facility] Comment on above: Performed By: #### B KARINA, CDP #### [address] [place] [address] [employer] Bander: Xavier Cuevas MD Platelet mean volume (Bld) [Entitic vol] 10.9 fL Normal 8.1-13.5 [facility] Comment on above: Performed By: #### B KARINA, CDP #### [facility] [address] [place] [address] Dr[place], [place] [phone] [employer]: Xavier Cuevas MD Platelets (Bld) [#/Vol] 227 10*3/uL Normal 138-453 [facility] Comment on above: Performed By: #### B MP, CDP #### [address] [place] [address] Hand Edge Bander: Xavier Cuevas MD RBC (Bld) [#/Vol] 4.95 10*6/uL Normal 3.95-5.11 [facility] Comment on above: Performed By: #### B MP, CDP #### [facility] [address] [place] [address] [employer] Bander: Xavier Cuevas MD WBC (Bld) [#/Vol] 6.5 10*3/uL Normal 3.5-11.3 [facility] Comment on above: Performed By: #### B MP, CDP #### [facility] [address] [place] [address] Hand Edge Bander: Xavier Cuevas MD EKG 12 LeadOrdered By: Enrique Quezada on 01-03-2023 Atrial Rate 64 BPM [employer] Phone: P [place] 75 degrees [employer] Phone: P-R Interval 146 ms [employer] Phone: Q-T Interval 480 ms [employer] Phone: QRS Duration 130 ms [employer] Phone: QTc Calculation (Bazett) 495 ms [employer] Phone: R [place] 3 degrees [employer] Phone: T [place] 31 degrees [employer] Phone: Ventricular Rate 64 BPM [employer] Phone: [employer] Phone: EKG 12 Leadon 01-03-2023 Normal sinus rhythm Right bundle branch block Abnormal ECG No previous ECGs available Confirmed by YANELIS QUEZADA ([id number]) on 01/03/2023 11:52:02 PM [facility] Yanelis Quezada MD - 01/03/2023 Normal sinus rhythm Right bundle branch block Abnormal ECG No previous ECGs available Confirmed by YANELIS QUEZADA ([id number]) on 01/03/2023 11:52:02 PM [employer] Phone: BUN & Creatinineon 3 Creatinine [Mass/Vol] 0.78 mg/dL 0.50 - 0.90 mg/dL [facility] GFR/1.73 sq M.predicted MDRD (S/P/Bld) [Vol rate/Area] - PINF [facility] Comment on above: These results are not intended for use in patients <18 years of age. eGFR results are calculated without a race factor using the 2020 CKD-EPI equation. Careful clinical correlation is recommended, particularly when comparing to results calculated using previous equations. The CKD-EPI equation is less accurate in patients with extremes of muscle mass, extra-renal metabolism of creatine, excessive creatine ingestion, or following therapy that affects renal tubular secretion. Urea nitrogen [Mass/Vol] 22 mg/dL 8 - 23 mg/dL [facility] BUN + Creatinineon 3 Creatinine [Mass/Vol] 0.78 mg/dL Normal 0.50-0.90 [facility] Comment on above: Performed By: #### B UNCRT #### [facility] [address] [place] [address] Hand [employer] Bander: Xavier Cuevas MD GFR/1.73 sq M.predicted among non-blacks MDRD (S/P/Bld) [Vol rate/Area] mL/min/{1.73_m2} Normal >60 [facility] Comment on above: Result Comment: These results are not intended for use in patients <18 years of age. eGFR results are calculated without a race factor using the 2020 CKD-EPI equation. Careful clinical correlation is recommended, particularly when comparing to results calculated using previous equations. The CKD-EPI equation is less accurate in patients with extremes of muscle mass, extra-renal metabolism of creatine, excessive creatine ingestion, or following therapy that affects renal tubular secretion. Performed By: #### B UNCRT #### [facility] [address] [place] [address] Hand Edge Bander: Xavier Cuevas MD Urea nitrogen [Mass/Vol] 22 mg/dL Normal 8-23 [facility] Comment on above: Performed By: #### B UNCRT #### [facility] [address] [place] [address] Hand Edge Bander: Xavier Cuevas MD CT UROGRAMon 12-26-2022 CT UROGRAM EXAMINATION: CT UROGRAM 12/26/2022 1:23 pm TECHNIQUE: CT of the abdomen and pelvis was performed before and after the administration of intravenous contrast as per CT urogram protocol. Multiplanar reformatted images as well as MIP urogram images are provided for review. Dose modulation, iterative reconstruction, and/or weight based adjustment of the mA/kV was utilized to reduce the radiation dose to as low as reasonably achievable. COMPARISON: None. HISTORY: ORDERING SYSTEM PROVIDED HISTORY: Renal calculus FINDINGS: Lower Chest: Mild atelectatic changes are present bases. Kidneys and Urinary Tract: Bilateral nonobstructing renal calculi are noted larger in the right kidney of 6.5 mm. Calculus in the left kidney is punctate 2-3 mm. No ureteral obstructing calculi. No suspicious masses. No bladder calculi. Bladder grossly unremarkable. Organs: Splenic and hepatic granulomas are present. Mild hepatic steatosis is present. No focal splenic or hepatic lesions. Pancreas, and adrenals are unremarkable. GI/Bowel: Moderate stool burden in the colon. No free fluid, free air bowel obstruction or bowel wall thickening is noted. No acute appendicitis. Pelvis: Bladder unremarkable. No free pelvic fluid, pelvic or inguinal adenopathy. Peritoneum/Retroperi toneum: No aortic aneurysm. Scattered calcified plaque in the abdominal aorta proximal iliac arteries. No retroperitoneal or mesenteric adenopathy. Bones/Soft Tissues: Postsurgical changes lower lumbar spine with intact indwelling hardware. Multilevel degenerative changes are present, predominantly moderate. No acute osseous or subcutaneous soft tissue abnormality. IMPRESSION: 1. Bilateral nonobstructing nephroliths larger on the right side of 6.5 mm. No ureteric obstruction. 2. Mild hepatic steatosis. Granulomas in liver and spleen. 3. Atherosclerotic disease. 4. Postsurgical changes lower lumbar spine. Other findings as above. Interpreted by: Katelyn Aceves MD Signed by: Katelyn Aceves MD 12/26/22 Final result Normal [facility] 1. Bilateral nonobstructing nephroliths larger on the right side of 6.5 mm. No ureteric obstruction. 2. Mild hepatic steatosis. Granulomas in liver and spleen. 3. Atherosclerotic disease. 4. Postsurgical changes lower lumbar spine. Other findings as above. [facility] EXAMINATION: CT UROGRAM 12/26/2022 1:23 pm TECHNIQUE: CT of the abdomen and pelvis was performed before and after the administration of intravenous contrast as per CT urogram protocol. Multiplanar reformatted images as well as MIP urogram images are provided for review. Dose modulation, iterative reconstruction, and/or weight based adjustment of the mA/kV was utilized to reduce the radiation dose to as low as reasonably achievable. COMPARISON: None. HISTORY: ORDERING SYSTEM PROVIDED HISTORY: Renal calculus FINDINGS: Lower Chest: Mild atelectatic changes are present bases. Kidneys and Urinary Tract: Bilateral nonobstructing renal calculi are noted larger in the right kidney of 6.5 mm. Calculus in the left kidney is punctate 2-3 mm. No ureteral obstructing calculi. No suspicious masses. No bladder calculi. Bladder grossly unremarkable. Organs: Splenic and hepatic granulomas are present. Mild hepatic steatosis is present. No focal splenic or hepatic lesions. Pancreas, and adrenals are unremarkable. GI/Bowel: Moderate stool burden in the colon. No free fluid, free air bowel obstruction or bowel wall thickening is noted. No acute appendicitis. Pelvis: Bladder unremarkable. No free pelvic fluid, pelvic or inguinal adenopathy. Peritoneum/Retroperi toneum: No aortic aneurysm. Scattered calcified plaque in the abdominal aorta proximal iliac arteries. No retroperitoneal or mesenteric adenopathy. Bones/Soft Tissues: Postsurgical changes lower lumbar spine with intact indwelling hardware. Multilevel degenerative changes are present, predominantly moderate. No acute osseous or subcutaneous soft tissue abnormality. [facility] Katelyn Aceves MD - 12/26/2022 EXAMINATION: CT UROGRAM 12/26/2022 1:23 pm TECHNIQUE: CT of the abdomen and pelvis was performed before and after the administration of intravenous contrast as per CT urogram protocol. Multiplanar reformatted images as well as MIP urogram images are provided for review. Dose modulation, iterative reconstruction, and/or weight based adjustment of the mA/kV was utilized to reduce the radiation dose to as low as reasonably achievable. COMPARISON: None. HISTORY: ORDERING SYSTEM PROVIDED HISTORY: Renal calculus FINDINGS: Lower Chest: Mild atelectatic changes are present bases. Kidneys and Urinary Tract: Bilateral nonobstructing renal calculi are noted larger in the right kidney of 6.5 mm. Calculus in the left kidney is punctate 2-3 mm. No ureteral obstructing calculi. No suspicious masses. No bladder calculi. Bladder grossly unremarkable. Organs: Splenic and hepatic granulomas are present. Mild hepatic steatosis is present. No focal splenic or hepatic lesions. Pancreas, and adrenals are unremarkable. GI/Bowel: Moderate stool burden in the colon. No free fluid, free air bowel obstruction or bowel wall thickening is noted. No acute appendicitis. Pelvis: Bladder unremarkable. No free pelvic fluid, pelvic or inguinal adenopathy. Peritoneum/Retroperi toneum: No aortic aneurysm. Scattered calcified plaque in the abdominal aorta proximal iliac arteries. No retroperitoneal or mesenteric adenopathy. Bones/Soft Tissues: Postsurgical changes lower lumbar spine with intact indwelling hardware. Multilevel degenerative changes are present, predominantly moderate. No acute osseous or subcutaneous soft tissue abnormality. IMPRESSION: 1. Bilateral nonobstructing nephroliths larger on the right side of 6.5 mm. No ureteric obstruction. 2. Mild hepatic steatosis. Granulomas in liver and spleen. 3. Atherosclerotic disease. 4. Postsurgical changes lower lumbar spine. Other findings as above. [employer] Phone: Radiology Study observation (narrative) [employer] Phone: CT UROGRAMOrdered By: Katelyn wilkes on 12-26-2022 [employer] Phone: Cult,Urineon 12-13-2022 Cult,Urine Specimen Description .CLEAN CATCH URINE Culture NO SIGNIFICANT GROWTH Report Status FINAL 12/13/2022 Normal [facility] Comment on above: Performed By: #### U #### [facility] [address] [place] [address] Hand Edge Bander: Richard Farias MD [facility] [address] [place] [address] Hand Edge Bander: Xavier Cuevas MD Urinalysis w/ Microon 2022 Bacteria 2+ Abnormal NONE [facility] Comment on above: Performed By: #### U AMIC #### [facility] [address] [place], [place] [id number] Hand Edge Bander: Xavier Cuevas MD Bilirubin, SemiQt,Ur Negative Normal NEG [facility] Comment on above: Performed By: #### U AMIC #### [facility] [address] [place], [place] [id number] Hand Edge Bander: Xavier Cuevas MD Blood, Urine TRACE Abnormal NEG [facility] Comment on above: Performed By: #### U AMIC #### [facility] [address] [place] [address] Dr. [place], [place] [phone] Hand Edge Bander: Xavier Cuevas MD Clarity (U) Clear Normal CLEAR [facility] Comment on above: Performed By: #### U AMIC #### [facility] [address] [place] [address] Dr. [place], [facility] Hand Edge Bander: Xavier Cuevas MD Color (U) Yellow Normal YEL [facility] Comment on above: Performed By: #### U AMIC #### [facility] [address] [place] [address] Dr. [place], [facility] Hand Edge Bander: Xavier Cuevas MD Epithelial cells LM Ql (Urine sed) 2 TO 5 Normal 0-25 [facility] Comment on above: Performed By: #### U AMIC #### [facility] [address] [place] [address] Dr. [place], [place] [phone] Hand Edge Bander: Xavier Cuevas MD Glucose Ql (U) Negative Normal NEG [facility] Comment on above: Performed By: #### U AMIC #### [facility] [address] [place] [address] [place] [address] Hand Edge Bander: Xavier Cuevas MD Ketones Ql (U) TRACE Abnormal NEG [facility] Comment on above: Performed By: #### U AMIC #### [facility] [address] [place] [address] [place], [place] [phone] Hand Edge Bander: Xavier Cuevas MD Leukocyte esterase Test strip Ql (U) Negative Normal NEG [facility] Comment on above: Performed By: #### U AMIC #### [facility] [address] [place] [address] Hand Edge Bander: Xavier Cuevas MD Mucus Strands 1+ Abnormal NONE [facility] Comment on above: Performed By: #### U AMIC #### [facility] [address] [place] [address] Hand Edge Bander: Xavier Cuevas MD Nitrite,Ur Negative Normal NEG [facility] Comment on above: Performed By: #### U AMIC #### [facility] [address] [place] [address] [place], [place] [phone] Hand Edge Bander: Xavier Cuevas MD PH,Ur 6.0 Normal 5.0-9.0 [facility] Comment on above: Performed By: #### U AMIC #### [facility] [address] [place] [address] Dr[place], [place] [phone] Hand Edge Bander: Xavier Cuevas MD Protein Ql (U) 1+ Abnormal NEG [facility] Comment on above: Performed By: #### U AMIC #### [facility] [address] [place] [address] Dr[place], [place] [phone] Hand Edge Bander: Xavier Cuevas MD Spec. [place],Ur 1.025 High 1.010-1.020 [facility] Comment on above: Performed By: #### U AMIC #### [facility] [address] [place], [place] [phone] Hand Edge Bander: Xavier Cuevas MD Urine RBC's 5 TO 10 Normal 0-2 [facility] Comment on above: Performed By: #### U AMIC #### [facility] [address] [place], [place] [address] Hand Edge Bander: Xavier Cuevas MD Urine WBC's 0 TO 2 Normal 0-5 [facility] Comment on above: Performed By: #### U AMIC #### [facility] [address] [place] [address] Hand Edge Bander: Xavier Cuevas MD Urobilinogen,Ur Normal Normal NORM [facility] Comment on above: Performed By: #### U AMIC #### [facility] [address] [place] [address] Hand Edge Bander: Xavier Cuevas MD Urinalysis with Microscopico n 12-12-2022 Bacteria, UA 2+ Abnormal None [facility] Bilirubin Urine Negative NEGATIVE [facility] Color, UA Yellow Yellow [facility] Epithelial Cells UA 2 TO 5 [facility] Glucose Auto test strip (U) [Mass/Vol] Negative NEGATIVE [facility] Interpretation and review of laboratory results Abnormal [facility] Ketones (U) [Mass/Vol] TRACE Abnormal NEGATIVE [facility] Leukocyte esterase Auto test strip Ql (U) Negative NEGATIVE [facility] Mucus, UA 1+ Abnormal None [facility] Nitrite Auto test strip Ql (U) Negative NEGATIVE [facility] Protein (U) [Mass/Vol] 6.0 mg/dL 5.0 - 9.0 [facility] Protein (U) [Mass/Vol] 1+ Abnormal NEGATIVE [facility] RBC clumps Auto (Urine sed) [#/Area] 5 TO 10 [facility] Specific [place], UA 1.025 High 1.010 - 1.020 [facility] Turbidity UA Clear Clear [facility] Urine Hgb TRACE Abnormal NEGATIVE [facility] Urobilinogen, Urine Normal Normal [facility] WBC, UA 0 TO 2 [facility] XR RIBS LT PA Sophia 3 XR RIBS LT PA CH EXAM: XR RIBS LT PA CH HISTORY: Rib pain COMPARISON: 05/28/2022 TECHNIQUE: Four views of the left ribs. FINDINGS: No rib fracture indentified. The lungs are clear. IMPRESSION: 1. No acute rib fracture identified. Electronically authenticated by: JANEEN VIRGILIO Date: 2022-12-03 10:28 Normal [facility] MRI BRAIN WO W CONon 023 MRI BRAIN WO W CON EXAMINATION: MRI BRAIN WO W CON HISTORY: Sensorineural hearing loss of left ear; headaches TECHNIQUE: A variety of imaging planes and parameters were utilized for visualization of suspected pathology. Images were performed without and with intravenous Dotarem contrast. FINDINGS: IACS: No evidence of acoustic schwannoma or other posterior fossa mass. INNER EARS: No abnormal signal intensity. MIDDLE EARS: No fluid or abnormal soft tissue. MASTOIDS: No fluid or abnormal soft tissue. CEREBRUM: No edema, hemorrhage, mass, acute infarction, or inappropriate atrophy. CEREBELLUM: No edema, hemorrhage, mass, acute infarction, or inappropriate atrophy. BRAINSTEM: No edema, hemorrhage, mass, acute infarction, or inappropriate atrophy. CSF SPACES: Ventricles, cisterns, and sulci are appropriate for age. No hydrocephalus, subarachnoid hemorrhage, or mass. SINUSES: Mucosal thickening and air-fluid level within left maxillary sinus. ORBITS: Limited views are unremarkable. OTHER: No abnormal meningeal or parenchymal enhancement. IMPRESSION: 1. No acoustic schwannoma, mass, or suspicious findings of the internal auditory canals or middle ears. 2. Normal appearance of the brain. 3. Left maxillary acute on chronic sinusitis. Electronically authenticated by: YANELIS ENGEL Date: 2022-10-22 13:55 Normal [facility] CREATININEon 10-21-2022 Creatinine [Mass/Vol] 0.94 mg/dL Normal 0.55-1.02 [facility] Comment on above: Performed By: #### C HUGH ####[facility] [address] [place] [address]Dr. Tapan Gordon EGFR-AF [facility] >60 Normal >=60 [facility] Comment on above: Performed By: #### C HUGH ####[facility] [address] [place] [address]DrCedric Gordon EGFR-NON AF [facility] =60 Normal >=60 [facility] Comment on above: Performed By: #### C HUGH ####[facility] [address] [place] [id number]. Tapan Gordon MG MAMM SCREEN 3D NICKOLAS CADon 08-13-2022 MG MAMM SCREEN 3D NICKOLAS CAD Patient: ROBYN THORPE Exam Date: 08/13/2022 : 1955 Gender:F Ordering : JAIRO MoisesCedric DALEY Admission #: [id number] Family : Order #: [id number] CLICK HERE TO VIEW EXAM RADIOLOGY REPORT PROCEDURE: MAMMOGRAM SCREENING 3D BILATERAL CAD COMPARISON: None. INDICATIONS: Screening mammography Calculator Name NCI Breast Cancer Risk Assessment Tool 5 Year Breast Cancer Risk 1.20% Lifetime Breast Cancer Risk 4.60% Personal Breast Cancer No Personal Ovarian Cancer No Treatments None Family Cancers Father with leukemia cancer at age 22; Brother with kidney cancer at age 64. LOCATION: [facility] BREAST COMPOSITION: Scattered areas fibroglandular density. FINDINGS: DIAGNOSTIC CATEGORY 2--BENIGN FINDING: Scattered benign-appearing nodules are present. Scattered benign-appearing calcifications are present. Scattered benign-appearing lymph nodes are present. RIGHT BREAST: No significant suspicious finding. LEFT BREAST: No significant suspicious finding. RECOMMENDATIONS: ROUTINE MAMMOGRAM AND CLINICAL EVALUATION IN 12 MONTHS. PLEASE NOTE: A NORMAL MAMMOGRAM DOES NOT EXCLUDE THE POSSIBILITY OF BREAST CANCER. A CLINICALLY SUSPICIOUS PALPABLE LUMP SHOULD BE BIOPSIED. Dictated by: Xavier Gonzales MD on 08/14/2022 at 07:56 Approved by: Xavier Gonzales MD on 08/14/2022 at 07:58 Normal [facility] XR DEXA BONE DENSITYon 08-13 XR DEXA BONE DENSITY EXAMINATION: XR DEXA BONE DENSITY, 08/13/2022 1:16 PM EDT HISTORY: Menopause present COMPARISON: None. TECHNIQUE: Dual-energy X-ray absorptiometry (DEXA) bone density study performed for the axial skeleton. FINDINGS: FOREARM ANALYSIS: Average bone mineral density is 0.6 x 4 g/cm2. T-score (standard deviation relative to young adult mean): -0.8 . HIP ANALYSIS: Lowest bone mineral density is within the left femoral neck, 0.815 g/cm2. T-score (standard deviation relative to young adult mean): -1.6 . IMPRESSION: [employer] Organization Classification: Osteopenia - Moderate Fracture Risk Electronically authenticated by: YANELIS ENGEL Date: 2022-08-13 16:09 Normal [facility] CT ABD/PELVIS WO CONon 08-07 CT ABD/PELVIS WO CON EXAMINATION: CT ABD/PELVIS WO CON HISTORY: Right flank pain ; chronic bilateral flank pain, history of kidney stones COMPARISON: CT abdomen pelvis 06/19/2022 TECHNIQUE: Axial, Coronal, and Sagittal images were obtained without and/or with IV contrast as indicated by examination type. Dose reduction techniques were achieved by using automated exposure control and/or adjustment of mA and/or kV according to patient size and/or use of iterative reconstruction technique. FINDINGS: LUNG BASES: No visible pulmonary or pleural disease. LIVER: No enlargement, atrophy, suspicious density, or significant focal lesion. BILIARY: No dilatation or calcification. PANCREAS: No lesion, fluid collection, or abnormal duct dilatation. SPLEEN: No enlargement or focal lesion. ADRENALS: No mass or enlargement. KIDNEYS: Bilateral nonobstructing kidney stones. Unremarkable ureters. BOWEL/MESENTERY: No visible mass, obstruction, or bowel wall thickening. AORTA/VASCULAR: No aneurysm or dissection. RETROPERITONEUM: No mass or adenopathy. LYMPH NODES: No adenopathy. URINARY BLADDER: No visible focal wall thickening, lesion, or calculus. PELVIC ORGANS: No visible mass. Pelvic organs appropriate for patient age. ABDOMINAL WALL: No mass or hernia. BONES: Posterior mechanical stabilization L4-L5. No acute or suspicious bone abnormality. OTHER: Negative. IMPRESSION: 1. Nonobstructing bilateral nephrolithiasis. No acute findings to account for patient's symptoms. Electronically authenticated by: YANELIS ENGEL Date: 2022-08-07 18:50 Normal [facility] ECHOCARDIO M/2D COMPLETEon 0 06-26-2022 ECHOCARDIO M/2D COMPLETE Patient: ROBYN THORPE Exam Date: 06/26/2022 : 1955 Gender:F Ordering : DR PRANAV ORTEZ M.D. Admission #: [id number] Family : JAIRO DALEY Order #: [id number] CLICK HERE TO VIEW EXAM ECHOCARDIOGRAM REPORT PROCEDURE: CARDIO PULMONARY ECHOCARDIO M/2D COMP INDICATIONS: Mitral valve regurgitation, COMPARISON: None. DESCRIPTION: COMPLETE ECHOCARDIOGRAM Real-time transthoracic echocardiography with 2D, M-mode, spectral and color flow Doppler performed. QUALITY: Technical quality was adequate. Smoker 64 202# 142/90 HR 62 LEFT VENTRICLE: Normal chamber size. Proximal septal hypertrophy (sigmoid septum). Global left ventricular systolic function is normal. No regional wall motion abnormalities. LV EF: Estimated ejection fraction is 65%. DIASTOLIC: Grade II diastolic dysfunction. ATRIAL SEPTUM: Intact atrial septum. LEFT ATRIUM: Moderate dilatation. RIGHT ATRIUM: Normal chamber size. RIGHT VENTRICLE: Normal chamber size. Normal right ventricular systolic function. TRICUSPID VALVE: Normal mobility and thickness. No stenosis with mild regurgitation. Doppler studies reveal mildly (35-45) elevated right sided pressures. RVSP is 45 mmHg MITRAL VALVE: Mildly thickened with normal mobility. No evidence of mitral valve stenosis. Mild to moderate mitral regurgitation. ERO 0.2 cm2 RV 39 ml AORTIC VALVE: Normal trileaflet appearance. Mildly calcified aortic valve. No evidence of aortic valve stenosis. No aortic regurgitation. AORTIC ROOT: Normal diameter and appearance. PULMONIC VALVE: Normal thickness and mobility. No stenosis. Trivial regurgitation. PERICARDIUM: No evidence of pericardial effusion. IVC: Collapses with inspirations. IVC normal in size. PLEURA: CONCLUSION: 1. Normal left ventricular systolic function with no regional wall motion abnormalities. LVEF is 65%. 2. Normal right ventricular size and systolic function. 3. Grade 2 diastolic dysfunction. 4. Mild to moderate mitral regurgitation. 5. Mild tricuspid regurgitation. 6. Mildly elevated right-sided pressures. 7. Moderately dilated left atrium. Adult Echocardiography Procedure Report Left Ventricle Left Atrium Mitral Valve Right Ventricle Aorta Aortic Valve Peak Velocity (Antegrade Flow): 1.31 m/s AoV Area (Peak Donaldo): 2.70 cm2, 2.70 cm2 Peak Velocity(Antegrade Flow): 1.31 m/s Peak Gradient(Antegrade Flow): 6.89 mm[Hg] Tricuspid Valve Peak Velocity (Regurgitant Flow): 3.25 m/s, 3.23 m/s Peak Velocity: 0.38 m/s Pulmonic Valve PV Max Donaldo (0.6 - 0.9 m per sec): 0.75 m/s PV Max Gradient: 2.27 mm[Hg] Right Atrium Dictated by: Hay Vargas M.D. on 06/26/2022 at 18:17 Approved by: Hay Vargas M.D. on 06/26/2022 at 18:22 Normal [facility] AMYLASEon 06-19-2022 Amylase [Catalytic activity/Vol] 48 U/L Normal 25-115 [facility] Comment on above: Performed By: #### C MP, RAMAN BERRIOS ####[facility] [address] [place] [address]Dr. Tapan Gordon CBC AUTO DIFFon 06-19-2022 BASO # 0.0 103/ul Normal 0.0-0.1 [facility] Comment on above: Performed By: #### C BC ####[facility] [address] [place], [place] [address]Dr. Tapan Evan Basophils/100 WBC (Bld) 0.5 % Normal 0.2-2.0 [facility] Comment on above: Performed By: #### C BC ####[facility] [address] [place], [place] [address]Dr. Tapan Gordon EO # 0.2 103/ul Normal 0.0-0.7 [facility] Comment on above: Performed By: #### C BC ####[facility] [address] [place], [place] [address]Dr. Tapan Gordon Eosinophils/100 WBC (Bld) 2.4 % Normal 0.9-7.0 [facility] Comment on above: Performed By: #### C BC ####[facility] [address] [place], [place] [address]Dr. Tapan Gordon Erythrocyte distribution width (RBC) [Ratio] 13.0 % Normal 11.0-15.0 [facility] Comment on above: Performed By: #### C BC ####[facility] [address] [place], [place] [address]Dr. Tapan Gordon Hematocrit (Bld) [Volume fraction] 43.6 % Normal 36.0-48.0 [facility] Comment on above: Performed By: #### C BC ####[facility] [address] [place], [place] [address]Dr. Tapan Gordon Hemoglobin (Bld) [Mass/Vol] 14.6 g/dL Normal 12.0-16.0 [facility] Comment on above: Performed By: #### C BC ####[facility] [address] [place] [address]Dr. Tapan Gordon IG # 0.02 10e3/ul Normal 0.00-0.03 [facility] Comment on above: Performed By: #### C BC ####[facility] [address] [place], [place] [address]DrCedric Tapan Evan IG % 0.3 % Normal 0.0-0.5 [facility] Comment on above: Performed By: #### C BC ####[facility] [address] [place], [place] [address]DrCedric Malikapalma Gordon LYMPH # 1.5 103/ul Normal 1.2-3.8 [facility] Comment on above: Performed By: #### C BC ####[facility] [address] [place], [place] [address]DrCedric Malikapalma Gordon Lymphocytes/100 WBC (Bld) 23.4 % Normal 20.5-60.0 [facility] Comment on above: Performed By: #### C BC ####[facility] [address] [place], [place] [address]DrCedric Malikapalma Gordon MANUAL DIFF REQ NO Normal [facility] Comment on above: Performed By: #### C BC ####[facility] [address] [place], [place] [address]DrCedric Tapan Evna MCH (RBC) [Entitic mass] 29.5 pg Normal 26.7-34.0 [facility] Comment on above: Performed By: #### C BC ####[facility] [address] [place], [place] [address]DrCedric Tapan Evan MCHC (RBC) [Mass/Vol] 33.5 g/dL Normal 29.9-35.2 [facility] Comment on above: Performed By: #### C BC ####[facility] [address] [place], [place] [address]DrCedric Tapan Evan MCV (RBC) [Entitic vol] 88.1 fL Normal 81.0-99.0 [facility] Comment on above: Performed By: #### C BC ####[facility] [address] [place], [place] [address]Dr. Tapan Gordon MONO # 0.6 103/ul Normal 0.3-0.8 [facility] Comment on above: Performed By: #### C BC ####[facility] [address] [place] [address]Dr. Tapan Gordon Monocytes/100 WBC (Bld) 9.8 % Normal 1.7-12.0 [facility] Comment on above: Performed By: #### C BC ####[facility] [address] [place] [address]Dr. Tapan Gordon NEUT # 4.0 103/ul Normal 1.4-6.5 [facility] Comment on above: Performed By: #### C BC ####[facility] [address] [place] [address]Dr. Tapan Gordon Neutrophils/100 WBC (Bld) 63.6 % Normal 43.0-75.0 [facility] Comment on above: Performed By: #### C BC ####[facility] [address] [place], [place] [address]Dr. Tapan Gordon Platelet mean volume (Bld) [Entitic vol] 10.3 fL Normal 9.5-13.5 [facility] Comment on above: Performed By: #### C BC ####[facility] [address] [place] [address]Dr. Tapan Gordon PLT 258 103/ul Normal 150-450 [facility] Comment on above: Performed By: #### C BC ####[facility] [address] [place] [address]Dr. Tapan Gordon RBC 4.95 106/ul Normal 4.20-5.40 [facility] Comment on above: Performed By: #### C BC ####[facility] [address] [place] [address]Dr. Tapan Gordon WBC 6.3 103/ul Normal 4.0-11.0 [facility] Comment on above: Performed By: #### C BC ####[facility] [address] [place] [address]. Tapan Evan CT ABD/PELVIS WO CONon 06-19 CT ABD/PELVIS WO CON EXAMINATION: CT ABD/PELVIS WO CON, 06/19/2022 9:34 AM EDT HISTORY: Abdomen cramping with dark diarrhea. The patient states she has black diarrhea 2-3 times a month. COMPARISON: None. TECHNIQUE: CT scan of the abdomen and pelvis was performed without IV contrast. CT dose reduction technique was used, including Automated Exposure Control. FINDINGS: The lung bases are clear. Lower mediastinal structures are normal. Liver is mildly enlarged and shows a few small calcifications. This again shows a few small calcifications. The adrenal glands and pancreas are normal. The gallbladder is almost completely contracted. The kidneys are symmetric in size. There is a 2 mm calcification in the left lower pole kidney, and several larger calcifications are seen in the right kidney. The right renal calcifications measure up to 2 mm. There is no hydronephrosis on either side and no stones are seen in the ureters. Scattered calcified plaque is seen in the aorta and branch vessels. The large and small bowel are normal caliber. Surgical changes of hysterectomy. Urinary bladder is almost completely empty. There is no free air or free fluid and no inflammatory stranding is seen. No suspicious or destructive bone lesions are seen. There are surgical changes at L4-L5. IMPRESSION: No acute process. No abnormality is seen to clearly account for the symptoms within the limitations of a noncontrast exam. Hepatomegaly. Bilateral nephrolithiasis, right greater than left. There is no evidence of obstruction or recently passed stone. Electronically authenticated by: BRAULIO LASSITER Date: 2022-06-19 10:13 Normal [facility] ER URINE PROFILEon 2 Bilirubin Ql (U) Negative Normal NEGATIVE The [facility] Comment on above: Performed By: #### U MICRO, ERUR #### [facility] [address] [place], [place] [address] Dr. Tapan Gordon Clarity (U) CLEAR Normal CLEAR [facility] Comment on above: Performed By: #### U MICRO, ERUR #### [facility] [address] [place], [place] [address] Dr. Tapan Gordon Color (U) LT. YELLOW Normal YELLOW [facility] Comment on above: Performed By: #### U MICRO, ERUR #### [facility] [address] [place] [address] [address] Tapan FORMAN A micrscopic examination will be performed if indicated. Normal [facility] Comment on above: Performed By: #### U MICRO, ERUR #### [facility] [address] [place] [address] [address] Tapan Gordon Glucose Ql (U) Negative Normal NEGATIVE The [facility] Comment on above: Performed By: #### U MICRO, ERUR #### [facility] [address] [place] [address] [address] Tapan Gordon Hemoglobin Ql (U) LARGE Abnormal NEGATIVE The [facility] Comment on above: Performed By: #### U MICRO, ERUR #### [facility] [address] [place] [address] [address] Tapan Gordon Ketones Ql (U) Negative Normal NEGATIVE [facility] Comment on above: Performed By: #### U MICRO, ERUR #### [facility] [address] [place] [address] Dr. Tapan Gordon LEUKOCYTES Negative Normal NEGATIVE [facility] Comment on above: Performed By: #### U MICRO, ERUR #### [facility] [address] [place] [address] [address] Tapan Gordon Nitrite Ql (U) Negative Normal NEGATIVE [facility] Comment on above: Performed By: #### U MICRO, ERUR #### [facility] [address] [place] [address] [address] Tapan Gordon pH (U) 7.0 [pH] Normal 5-9 [facility] Comment on above: Performed By: #### U MICRO, ERUR #### [facility] [address] [place] [address] [address] Tapan Gordon SPEC GRAVITY 1.015 Normal 1.005-<=1.[address] [facility] Comment on above: Performed By: #### U MICRO, ERUR #### [facility] [address] [place] [address] [address] Tapan Gordon UA PROTEIN TRACE Normal NEGATIVE/ TRACE [facility] Comment on above: Performed By: #### U MICRO, ERUR #### [facility] [address] [place] [address] [address] Tapan Gordon UR MICRO IND INDICATED Normal [facility] Comment on above: Performed By: #### U MICRO, ERUR #### [facility] [address] [place] [address] [address] Tapan Gordon Urobilinogen Qn (U) 2.0 {Aleida'U}/dL Abnormal 0.2 - 1. 0 [facility] Comment on above: Performed By: #### U MICRO, ERUR #### [facility] [address] [place] [address] [address] Tapan Gordon LIPASEon 06-19-2022 Lipase [Catalytic activity/Vol] 182.0 U/L Normal 73.0-393.0 [facility] Comment on above: Performed By: #### C MP, YASH, LIPA ####[facility] [address] [place] [address]DrCedric Gordon OCC BLD IMMUNO SCREENon 05-22 OCCULT BLOOD Negative Normal NEGATIVE [facility] Comment on above: Performed By: #### O BSCRN ####[facility] [address] [place] [address]DrCedric Gordon PROF 14(COMP METB)on 022 Albumin [Mass/Vol] 3.5 g/dL Normal 3.4-5.0 [facility] Comment on above: Performed By: #### C MP, YASH, LIPA ####[facility] [address] [place] [address]DrCedric Gordon Albumin/Globulin [Mass ratio] 1.0 {ratio} Normal [facility] Comment on above: Performed By: #### C MP, YASH, LIPA ####[facility] [address] [place] [address]DrCedric Gordon ALP [Catalytic activity/Vol] 76 U/L Normal 46-116 [facility] Comment on above: Performed By: #### C MP, YASH, LIPA ####[facility] [address] [place] [address]DrCedric Gordon ALT [Catalytic activity/Vol] 64 U/L Critically high 14-59 [facility] Comment on above: Performed By: #### C YASH COLLINS LIPA ####[facility] [address] [place] [address]Dr. Tapan Gordon Anion gap [Moles/Vol] 11.2 mmol/L Normal [facility] Comment on above: Performed By: #### C YASH COLLINS LIPA ####[facility] [address] [place] [address]Dr. Tapan Gordon AST [Catalytic activity/Vol] 38 U/L Critically high 15-37 [facility] Comment on above: Performed By: #### C YASH COLLINS LIPA ####[facility] [address] [place] [address]Dr. Tapan Gordon Bilirubin [Mass/Vol] 0.7 mg/dL Normal 0.2-1.0 [facility] Comment on above: Performed By: #### C YASH COLLINS LIPA ####[facility] [address] [place] [address]Dr. Tapan Gordon Calcium [Mass/Vol] 8.7 mg/dL Normal 8.5-10.1 [facility] Comment on above: Performed By: #### C YASH COLLINS LIPA ####[facility] [address] [place] [address]Dr. Tapan Gordon Chloride [Moles/Vol] 104 mmol/L Normal 98-107 [facility] Comment on above: Performed By: #### C YASH COLLINS, LIPA ####[facility] [address] [place] [address]Dr. Tapan Gordon CO2 [Moles/Vol] 29.6 mmol/L Normal 21.0-32.0 [facility] Comment on above: Performed By: #### C KARINA YASH, LIPA ####[facility] [address] [place] [address]Dr. Tapan Gordon Creatinine [Mass/Vol] 0.85 mg/dL Normal 0.55-1.02 [facility] Comment on above: Performed By: #### C YASH COLLINS, LIPA ####[facility] [address] [place] [id number]. Tapan Gordon EGFR-AF ST LUCIAN >60 Normal >=60 [facility] Comment on above: Performed By: #### C MP, YASH, LIPA ####[facility] [address] [place] [address]Dr. Tapan Gordon EGFR-NON AF ST LUCIAN >60 Normal >=60 [facility] Comment on above: Performed By: #### C MP, YASH, LIPA ####[facility] [address] [place] [address]Dr. Tapan Gordon Globulin (S) [Mass/Vol] 3.6 g/dL Normal [facility] Comment on above: Performed By: #### C MP, YASH, LIPA ####[facility] [address] [place] [address]Dr. Tapan Gordon Glucose [Mass/Vol] 125 mg/dL Critically high 74-106 [facility] Comment on above: Performed By: #### C MP, YASH, LIPA ####[facility] [address] [place] [address]Dr. Tapan Gordon Potassium [Moles/Vol] 3.8 mmol/L Normal 3.5-5.1 [facility] Comment on above: Performed By: #### C MP, YASH, LIPA ####[facility] [address] [place] [address]Dr. Tapan Gordon Protein [Mass/Vol] 7.1 g/dL Normal 6.4-8.2 [facility] Comment on above: Performed By: #### C MP, YASH, LIPA ####[facility] [address] [place], [place] [address]Dr. Tapan Gordon Sodium [Moles/Vol] 141 mmol/L Normal 136-145 [facility] Comment on above: Performed By: #### C MP, YASH, LIPA ####[facility] [address] [place] [address]Dr. Tapan Gordon Urea nitrogen [Mass/Vol] 22.0 mg/dL Critically high 7.0-18.0 [facility] Comment on above: Performed By: #### C YASH COLLINS, LIPA ####[facility] [address] [place] [address]Dr. Tapan Gordon Urea nitrogen/Creatinine [Mass ratio] 25.9 mg/mg Normal [facility] Comment on above: Performed By: #### C YASH COLLINS, LIPA ####[facility] [address] [place] [id number]. Tapan Gordon URINE MICROSCOPIC ONLYon BACTERIA TRACE Abnormal NONE SEEN [facility] Comment on above: Performed By: #### U MICRO, ERUR #### [facility] [address] [place] [address] [address] Tapan Gordon Bacteria identified Cx Nom (U) NOT INDICATED Normal [facility] Comment on above: Performed By: #### U MICRO, ERUR #### [facility] [address] [place] [address] [address] Tapan Gordon CAST NONE SEEN Normal NONE SEEN [facility] Comment on above: Performed By: #### U MICRO, ERUR #### [facility] [address] [place] [address] [address] Tapan Gordon Crystals LM Nom (Urine sed) NONE SEEN Normal NONE SEEN [facility] Comment on above: Performed By: #### U MICRO, ERUR #### [facility] [address] [place] [address] [address] Tapan Gordon Epithelial cells LM Ql (Urine sed) FEW Abnormal NONE SEEN /RARE [facility] Comment on above: Performed By: #### U MICRO, ERUR #### [facility] [address] [place] [address] [address] Tapan Gordon MUCOUS NONE SEEN Normal NONE SEEN [facility] Comment on above: Performed By: #### U MICRO, ERUR #### [facility] [address] [place] [address] [address] Tapan Gordon RBC 20-50 Abnormal 0-2 [facility] Comment on above: Performed By: #### U MICRO, ERUR #### [facility] [address] [place] [address] [address] Tapan Gordon WBC NONE SEEN Normal NONE SEEN [facility] Comment on above: Performed By: #### U MICRO, ERUR #### [facility] [address] [place] [address] [address] LUNG CANCER SCREENINGon 0 05-29-2022 CT LUNG CANCER SCREENING EXAMINATION: CT LUNG CANCER SCREENING HISTORY: Screening for malignant neoplasm of respiratory tract COMPARISON: No relevant comparison available. TECHNIQUE: Axial, Coronal, and Sagittal images were created without the administration of IV contrast material. Dose reduction techniques were achieved by using automated exposure control and/or adjustment of mA and/or kV according to patient size and/or use of iterative reconstruction technique. FINDINGS: LUNGS: Mild diffuse centrilobular emphysema. Dependent opacities, atelectasis is favored. Scattered punctate pulmonary nodules measuring up to 3 mm PLEURA: No mass, effusion, or pneumothorax. VASCULATURE: No abnormality. ALISIA: No mass or pathologic adenopathy. MEDIASTINUM: No mass or pathologic adenopathy. CARDIAC: No enlargement, pericardial thickening, or significant calcification. AORTA: No aneurysm or dissection. CHEST WALL: No mass or axillary adenopathy BONES: No bone lesion or fracture. LIMITED ABDOMEN: Punctate splenic and hepatic calcifications, prior granulomatous process OTHER: Negative. IMPRESSION: LUNG SCREENING: Lung-RADS Category 2- Benign Appearance or Behavior. Nodules with a very low likelihood of becoming a clinically active cancer due to size or lack of growth. 2. Continue annual screening with LDCT in 12 months. Electronically authenticated by: XAVIER GONZALES Date: 2022-05-29 07:22 Normal [facility] XR hip RT min 2V(w/wo pelvis )*on 11-30-2020 XR hip RT min 2V(w/wo pelvis)* [facility] [address] [place] [address] XRay Report Signed Patient: Robyn Thorpe MR#: [id number] : 1955 Acct:[id number] Age/Sex: 64 / F ADM Date: 11/30/20 Loc: XD Room: Type: [facility] CLI Attending Dr: Brian Ariza DO Ordering Provider: Brian Ariza DO Date of Service: 11/30/20 XR/XR chest 2V*: S/P TRAUMA ([id number]) XR/XR hip RT min 2V(w/wo pelvis)*: S/P,PAIN RIGHT HIP ([id number]) XR/XR lumbar spine min 4V*: S/P,PAIN RIGHT HIP AND LUMBAR SPINE Copies to: Brian Ariza DO CLINICAL DATA: Right anterior rib pain below the breast, cough and shortness of breath. Neck pain radiating down the legs, greater on the right after twisting injury while stacking firewood. Previous back surgery. PA AND LATERAL CHEST: COMPARISON: None There is mild hyperinflation. There is mild linear scarring or atelectasis at the left base. There is no focal parenchymal consolidation, effusion or pneumothorax. The cardiac, hilar and mediastinal silhouettes are within normal limits. There is no vascular congestion. The visualized bony structures are osteopenic. Dextroscoliotic curvature and mild endplate spurring are visualized. XR/XR chest 2V* IMPRESSION: OBSTRUCTIVE LUNG DISEASE WITH LEFT BASILAR SCARRING OR ATELECTASIS. NO ACUTE CARDIOPULMONARY ABNORMALITY. LUMBAR SPINE - 6 views COMPARISON: 05/31/2019 AP, lateral, both oblique and AP and lateral coned-down views of lumbosacral junction were obtained. There is potential slight levoscoliotic curvature. Patient is status post partial laminectomy and fusion with posterior rods and pedicle screws at L4-5. The hardware appears intact and similar to the prior. Interbody grafting material is seen. No acute fractures or displacement are identified. The unfused disc spaces are maintained. There is minor endplate spurring as well as lower lumbar facet hypertrophy. The SI joints are intact. There is atherosclerotic plaque at the aorta and iliac arteries. Right nephrolithiasis is suspected. IMPRESSION: STABLE LOWER LUMBAR FUSION. POTENTIAL MINOR SCOLIOSIS AND MILD DEGENERATIVE CHANGES. RIGHT HIP - 2 views COMPARISON: None AP and frog-lateral views were obtained. There is osteopenia. No acute fractures or dislocation are noted. The hip joint space is maintained. There is no prominent degenerative disease. The soft tissues are unremarkable. IMPRESSION: NO ACUTE BONY FINDINGS. Impression dictated by: Robyn Gardiner M.D.11/30/2020 12:21 PM Dictation Location[id number] Transcribed By: [facility] 11/30/20 1221 Dictated By: Robyn Gardiner MD 11/30/20 1214 Signed By: 11/30/20 1221 [facility] [place] Vital Signs Date Time Vital Sign Value Performing Clinician Shanell alfredo 12-04-2023 15:54-0500 Body height 161.3 cm Cristobal White DPM Work Phone: [facility] 12-04-2023 15:54-0500 Body mass index (BMI) [Ratio] 35.22 kg/m2 Cristobal White DPM Work Phone: [facility] 12-04-2023 15:54-0500 Body weight 91.63 kg Cristobal White DPM Work Phone: [facility] 12-04-2023 15:54-0500 Diastolic blood pressure 81 mm[Hg] Cristobal White DPM Work Phone: [facility] 12-04-2023 15:54-0500 Heart rate 88 /min Cristobal White DPM Work Phone: [facility] 12-04-2023 15:54-0500 Systolic blood pressure 131 mm[Hg] Cristobal White DPM Work Phone: [facility] Healthcare Encounters Encounter Date Encounter Type Care Provider Facility Start: 02-19-2024 End: 02-19-2024 ambulatory CRISTOBAL WHITE Not Available Start: 01-15-2024 Refill Isidra Vanesa TRACK MANAGER [facility] Comment on above: Chronic bronchitis w ith emphysema; Arthritis, multiple joint involvement; Anxiety and depression; Fibromyalgia; Acquired hypothyroidism; Benign essential HTN; Primary insomnia; History of kidney stones Start: 01-13-2024 Refill Isidra Vanesa TRACK MANAGER [facility] Comment on above: Chronic bronchitis w ith emphysema; Arthritis, multiple joint involvement; Anxiety and depression; Fibromyalgia; Acquired hypothyroidism; Benign essential HTN; Primary insomnia Start: 12-11-2023 End: 12-12-[address] [facility] Start: 12-11-2023 End: 12-11-2023 ambulatory [facility] Start: 12-04-2023 End: 12-04-2023 ambulatory CRISTOBAL WHITE Not Available Start: 12-04-2023 End: 12-04-2023 Office outpatient new 30 minutes Cristobal White DPM Work Phone: [facility] Comment on above: DJD (degenerative khurram int disease), ankle and foot, right (Primary Dx); Other specified disorders of synovium, right ankle and foot; Onychomycosis; Toe pain, bilateral Start: 12-04-2023 Chart abstracting Cristobal greer DPM Work Phone: [facility] Start: 11-17-2023 Telephone encounter [facility] Start: 11-17-2023 End: 11-17-2023 ambulatory [facility] Start: 06-10-2023 End: 06-10-2023 ambulatory [facility] Start: 05-23-2023 End: 05-23-2023 ambulatory [facility] Start: 04-25-2023 End: 04-28-[address] [facility] Start: 01-21-2023 End: 01-21-2023 ambulatory [facility] Start: 01-03-2023 End: 01-04-2023 ambulatory [facility] Start: 01-03-2023 Encounter for other preprocedural examination [facility] Start: 01-03-2023 End: 01-03-2023 Patient encounter status Jairo Britt CNP Work Phone: [facility] Start: 01-03-2023 End: 01-03-2023 Subsequent hospital visit by physician Jairo Britt CNP Work Phone: [facility] Comment on above: Renal calculus; Pre-op testing Start: 12-26-2022 End: 12-29-2022 ambulatory [facility] Start: 12-26-2022 End: 12-28-2022 Subsequent hospital visit by physician [facility] Scan Room [facility] Comment on above: Renal calculus; Gross hematuria Start: 12-12-2022 End: 12-13-2022 [facility] Start: 12-12-2022 End: 12-12-2022 Subsequent hospital visit by physician Jairo Daley APRN - POT FILLER Work Phone: [facility] Comment on above: Renal calculus; Gross hematuria Start: 12-03-2022 End: 12-03-2022 ambulatory JANEEN POOLE Facility:[facility] Start: 10-21-2022 End: 10-22-[address] EULALIO MENESES Facility:[facility] Start: 09-11-2022 End: 09-22-2022 Emergency department patient visit RANDAL ORTIZ Facility:[facility] Start: 08-13-2022 End: 08-14-[address] XAVIER GONZALES Facility:[facility] Start: 08-07-2022 End: 08-08-[address] YANELIS ENGEL Facility:[facility] Start: 07-03-2022 End: 07-04-[address] YANELIS ENGEL Facility:[facility] Start: 06-26-2022 End: 06-27-[address] PRANAV ORTEZ Facility:[facility] Start: 06-19-2022 End: 06-19-2022 ambulatory BRAULIO LASSITER Facility:[facility] Start: 05-28-2022 End: 05-29-[address] XAVIER GONZALES Facility:[facility] Start: 04-03-2022 End: 04-04-[address] YANELIS ENGEL Facility:[facility] Start: 03-08-2022 End: 03-08-[address] YANELIS ENGEL Facility: Procedures Date Procedure Procedure Detail Performing Clinician Start: 12-11-2023 Adult depression scr eening assessment Isidra Vanesa TRACK MANAGER Start: 08-20-2023 Adult depression scr eening assessment Adysan Sleek TRACK MANAGER Start: 01-03-2023 Ecg routine ecg w/le ast 12 lds w/i&r Bo Black APRN - POT FILLER Work Phone: Start: 01-03-2023 Basic metabolic pane l calcium total Bo Black MOWER OPERATOR - POT FILLER Work Phone: Start: 12-26-2022 Ct abdomen & pelvis w/o contrst 1/> body re Jason Au MD Work Phone: Start: 12-26-2022 Assay of urea nitrog en quantitative Jason Au MD Work Phone: Start: 12-12-2022 Urnls dip stick/tabl et reagent auto microscopy Jason Au MD Work Phone: Start: 08-13-2022 Mammography Adysan Sle ek TRACK MANAGER Plan of Treatment Date Care Activity Detail Author Start: 12-11-2024 Adult BMI Follow Up Plan Adult BMI F ollow Up Plan [facility] Start: 12-11-2024 Adult BMI Screening Adult BMI Screen ing [facility] Start: 12-11-2024 Depression Screening Depression Scre ening [facility] Start: 12-11-2024 Fall Risk Screening Fall Risk Screen ing [facility] Start: 12-11-2024 Tobacco Screening Tobacco Screening [facility] Start: 08-20-2024 Adult BMI Follow Up Plan Adult BMI F ollow Up Plan [facility] Start: 08-20-2024 Adult BMI Screening Adult BMI Screen ing [facility] Start: 08-20-2024 Depression Screening Depression Scre ening [facility] Start: 08-20-2024 Fall Risk Screening Fall Risk Screen ing [facility] Start: 08-20-2024 Medicare Annual Well ness Visit Medicare Annual Wellness Visit [facility] Start: 08-20-2024 Tobacco Screening Tobacco Screening [facility] Start: 04-12-2024 End: 04-12-2024 Patient encounter procedure 04/12/2024 9:40 AM EDT Office Visit [facility] - Family Medicine [address] [place] [id number] Jairo Daley, MOWER OPERATOR-POT FILLER [address] [place] [address] [facility] Physicians Internal Medicine - Family [facility] Start: 02-12-2024 End: 02-12-2024 Patient encounter procedure 02/12/2024 4:40 PM EDT Procedure Visit [facility] [address] [facility] [address] [place] [phone] Cristobal White, KISHAM [address] [address] [facility] Start: 01-07-2024 Tobacco Counseling Tobacco Counselin [facility] Start: 12-18-2023 End: 12-18-2023 Clinical Support 12/18/2023 8:50 AM EST Clinical Support [facility] [address] [facility] [address] [place] [phone] Cristobal White DPM [address] [address] [facility] Start: 12-11-2023 End: 12-11-2023 Patient encounter procedure 12/11/2023 9:45 AM EST [facility] Internal [facility] - Family Medicine [address] [place] [address] Jairo Daley, MOWER OPERATOR-POT FILLER [address] [place] [address] [facility] Physicians Internal Medicine - Family Medicine Start: 12-04-2023 End: 12-04-2023 Patient encounter procedure 12/04/2023 4:00 PM EST Office Visit [facility] [address] [facility] [address] [place] [phone] Cristobal White, KISHAM [address] [address] [facility] Start: 08-13-2023 Screening for malign ant neoplasm of breast Mammogram [facility] Start: 06-20-2023 COVID-19 Vaccine ( season) COVID-19 Vaccine () [facility] Start: 01-21-2023 End: 01-21-2023 Admission to same day surgery center 01/21/2023 Surgery IP Unit Jason Au MD [address], [address] [place] [address] ESWL EXTRACORPOREAL SHOCK WAVE LITHOTRIPSY [facility] Comment on above: ESWL EXTRACORPOREAL SHOCK WAVE LITHOTRIPSY Start: 01-21-2023 End: 01-21-2023 Lithotripsy xtrcorp shock wave ESWL EXTRACORPOREAL SHOCK WAVE LITHOTRIPSY Renal calculus 01/21/2023 7:30 AM EDT [facility] Start: 01-21-2023 Subsequent hospital visit by physician 01/21/2023 Hospital Encounter IP Unit Jason Au MD [address], [address] [place] [address] [facility] Start: 12-31-2022 End: 12-31-2022 Patient encounter procedure 12/31/[address] [facility] CT Scan Start: 12-12-2022 Annual Wellness Visi t (AWV) Annual Wellness Visit (AWV) [facility] Start: 2011 Screening for osteoporosis DEXA (modify frequency per FRAX score) [facility] Start: 2006 Administration of varicella zoster vaccine Zoster (Shingles) Vaccine (1 of 2) [facility] Start: 2006 Screening for malign ant neoplasm of breast Breast cancer screen [facility] Start: 2006 Shingles vaccine (1 of 2) Shingles vaccine (1 of 2) [facility] Start: 2001 Screening for malign ant neoplasm of colon [facility] Start: 1996 Lipid panel Lipids [facility] Start: 1991 Diabetes screen Diabetes screen [facility] Start: 1975 DTaP,Tdap and Td Vaccines (1 - Tdap) DTaP,Tdap and Td Vaccines (1 - Tdap) [facility] Start: 1975 DTaP/Tdap/Td vaccine (1 - Tdap) DTaP/Tdap/Td vaccine (1 - Tdap) [facility] Start: 1974 Hepatitis C screening Hepatitis C sc reen [facility] Start: 1968 Depression Screen Depression Screen [facility] Start: 06-05-1957 COVID-19 Vaccine (#1) COVID-19 Vacci ne (#1) [facility] Start: 1956 Screening for malign ant neoplasm of colon [facility] Start: 1956 Tobacco Counseling Tobacco Counselin g [facility] End: 12-12-2022 Culture, [facility] Work Phone: Comment on above: 1 Occurrences starti ng 12/12/2022 until 12/12/2022 US Lower extremity - right US foot right Imaging Routine Other specified disorders of synovium, right ankle and foot Ordered: 12/04/2023 [facility] Work Phone: Comment on above: Ordered: 12/04/2023 Immunizations Immunization Date Immunization Notes Care Provider Cristine hunt 08-20-2023 Influenza Vaccine, Quadrivalent, Adjuvanted Adysan Sleek [facility] [employer] 10-02-2022 Pneumococcal Conjuga te 20-valent Adysan Sleek [facility] 10-02-2022 pneumococcal conjuga te vaccine, 7 valent Adysan Sleek [facility] 07-30-2022 Influenza Vaccine, Quadrivalent, Adjuvanted Adysan Sleek [facility] Payers Date Payer Category Payer Medicare [id number] 2022 Medicaid MEDICAID [facility] - ONLY [id number] 2022-Present [phone] [address] [place] [address] [id number] 2022 Medicare [id number] [id number] 2017 Medicare [id number] [id number] 2017 Unknown [id number] 1959 Medicaid [id number] 1959 Medicare [id number] 1959 Unknown [id number] 1956 Unknown [id number] 2.16.840.1.099099.3.579.2.593 1956 Unknown [id number] 2.16.840.1.724675.3.579.2.593 1956 Unknown [id number] 2.16.840.1.184408.3.579.2.593 1956 Unknown [id number] 2.16.840.1.437811.3.579.2.593 1956 Unknown [id number] 2.16.840.1.258614.3.579.2.593 1956 Unknown [id number] 2.16.840.1.012879.3.579.2.593 1956 Unknown [id number] 2.16.840.1.727786.3.579.2.593 1956 Unknown [id number] 2.16.840.1.928329.3.579.2.593 1956 Unknown [id number] 2.16.840.1.073047.3.579.2.593 1956 Unknown [id number] 2.16.840.1.452555.3.579.2.593 1956 Unknown [id number] 2.16.840.1.212733.3.579.2.173 1956 Unknown [id number] 2.16.840.1.777538.3.579.2.173 1956 Unknown [id number] 2.16.840.1.014860.3.579.2.173 1956 Unknown [id number] 2.16.840.1.787242.3.579.2.173 1956 Unknown [id number] 2.16.840.1.892326.3.579.2.173 1956 Unknown [id number] 2.16.840.1.155607.3.579.2.173 1956 Unknown [id number] 2.16.840.1.100231.3.579.2.173 1956 Unknown [id number] 2.16.840.1.759313.3.579.2.173 1956 Unknown [id number] 2.16.840.1.822005.3.579.2.1286 1956 Unknown [id number] 2.16.840.1.131712.3.579.2.1286 1956 Unknown [id number] 2.16.840.1.695696.3.579.2.1259 1956 Unknown [id number] 2.16.840.1.747440.3.579.2.1259 Social History Date Type Detail Facility Start: 12-12-2022 End: 03-03-2023 Tobacco smoking status WVIS Smokes tobacco daily [employer] Phone: History of tobacco use Cigarette Smoker [facility] [employer] Phone: Start: 12-12-2022 End: 12-11-2023 Cigarettes smoked current (pack per day) - Reported 0.5 [employer] Phone: Start: 12-12-2022 End: 03-03-2023 Tobacco use and exposure Smokeless tobacco non-user [employer] Phone: Start: 12-12-2022 End: 12-11-2023 Alcohol intake Current drinker of alcohol (finding) [facility] [employer] Phone: Start: 12-12-2022 Tobacco Comment Smokes 6-8 cigs/day [facility] [employer] Phone: Start: 12-12-2022 Alcohol Comment Beer 2-3 every 2 wee ks [facility] [employer] Phone: Start: 1955 Sex Assigned At Not on file [facility] [employer] Phone: Start: 08-20-2023 End: 12-11-2023 [facility] Start: 02-20-2022 Alcohol Comment on weekends, n ot often. [facility] Start: 12-04-2023 Tobacco smoking stat NHIS Never smoked tobacco [facility] History of tobacco use Passive smoker [facility] Start: 12-04-2023 Alcohol intake Ex-drinker (finding) [facility] How often to you hav e a drink containing alcohol? 2-4 times a month [facility] Start: 12-04-2023 Alcohol Comment coffee daily [facility] Clinical Notes 03-08-2022 to 01-15-2024 Telephone Encounter - Isidra Alexis CMA - 01/15/2024 12:05 PM EDTTelephone Encounter - Isidra Alexis CMA - 01/15/2024 12:05 PM EDTCristobal White DPM - 12/04/2023 4:00 PM EST Note Date & Type Note Facility 01-15-2024 Miscellaneous Notes They went to the wrong pharmacy documented in this encounter [facility] 01-15-2024 Telephone encounter Note They went to the wrong pharmacy [facility] 12-04-2023 History of Presen t illness Narrative Patient: Robyn Thorpe : 1955 PCP: No primary care provider on file. SUBJECTIVE This is a 67 y.o. female that presents today with a CC of elongated, thick nails. Pt states nails have been elongated and thick for many years and cause pain with ambulation in shoegear. Pt has tried previous treatment with minimal relief. Pt presents today for nail care and treatment. Patient also has complaints to her right ankle region states it has been painful for the past 2 years since her ankle surgery of ankle fracture. States pain up to 5 to 8/10 and takes anti-inflammatories with minimal improvement Allergies: Allergies Allergen Reactions Bee Venom Anaphylaxis Other reaction(s): Not available Lisinopril Cough Attends Briefs Small Rash Past Medical History: Past Medical History: Diagnosis Date Allergies Anxiety Arthritis Asthma ([facility]) Cervical cancer ([facility] COPD (chronic obstructive pulmonary disease) ([facility]) Depression ([facility]) History of medical problems knee scraping for knee replacement HTN (hypertension) ([facility]) Kidney disease Medications: Current Outpatient Medications: albuterol HFA 90 mcg/act inhaler, TAKE TWO PUFFS BY MOUTH EVERY 6 HOURS NEEDED, Disp: , Rfl: EPINEPHrine (Epipen) 0.3 MG/0.3ML injection syringe, USE DIRECTED FOR BEE STINGS, Disp: , Rfl: gabapentin (Neurontin) 300 MG capsule, Take 300 mg by mouth at bedtime, Disp: , Rfl: lisinopril 10 MG tablet, Take 10 mg by mouth in the morning., Disp: , Rfl: losartan (Cozaar) 25 MG tablet, Take 25 mg by mouth, Disp: , Rfl: methocarbamol (Robaxin) 500 MG tablet, Take 1 tablet by mouth 3 (three) times a day as needed, Disp: , Rfl: metoprolol tartrate (Lopressor) 25 MG tablet, Take 1 tablet by mouth in the morning and 1 tablet before bedtime., Disp: , Rfl: nitroglycerin (Nitrostat) 0.4 MG SL tablet, DISSOLVE 1 TABLET UNDER TONGUE NEEEDED, Disp: , Rfl: propylthiouracil (PTU) 50 MG tablet, TAKE 1 TABLET BY MOUTH IN THE MORNING, 1 TABLET AT NOON, 1 TABLET BEFORE BEDTIME, Disp: , Rfl: spironolactone (Aldactone) 25 MG tablet, Take 25 mg by mouth in the morning., Disp: , Rfl: traMADol (Ultram) 50 MG tablet, TAKE 1 TABLET BY MOUTH EVERY 8 HOURS NEEDED FOR PAIN FOR UP TO 5 DAYS., Disp: , Rfl: traZODone (Desyrel) 150 MG tablet, Take 1 tablet by mouth at bedtime, Disp: , Rfl: Social History: Social History Socioeconomic History Marital status: Spouse name: Not on file Number of children: Not on file Years of education: Not on file Highest education level: Not on file Occupational History Not on file Tobacco Use Smoking status: Every Day Packs/day: 0.50 Years: 59.00 Additional pack years: 0.00 Total pack years: 29.50 Types: Cigarettes Passive exposure: Past Smokeless tobacco: Never Vaping Use Vaping Use: Unknown Substance and Sexual Activity Alcohol use: Not Currently Comment: coffee daily Drug use: Defer Sexual activity: Defer Other Topics Concern Not on file Social History Narrative Not on file Social Determinants of Health Financial Resource Strain: Not on file Food Insecurity: Not on file Transportation Needs: Not on file Physical Activity: Not on file Stress: Not on file Social Connections: Not on file Intimate Partner Violence: Not on file Housing Stability: Not on file ROS: Gastrointestinal: denies abdominal pain, ulcers, or changes in appetite or bowel habits Musculoskeletal: Positive generalized arthritis to joints and denies loss of strength. Positive history ankle surgery Cardiovascular: denies CP, palpitations, irregular rhythms. Positive history of mitral valve prolapse OBJECTIVE LE EXAM: DERM: Elongated thick yellow crumbly nails digits 1 through 10. Diminished hair growth b/l feet. Edema to right ankle VASC: Positive palpable pedal pulses bilaterally NEURO: Gross sensation intact to bilateral feet ORTHO: Positive pain on palpation to nails 1 through 10 Positive palpation lateral right ankle gutter and capsule region DIAGNOSTIC US REPORT: Verbal order for ultrasound today The right ankle was scanned today with a 12 MHz linear probe in the transverse/sagital planes. Images were obtained. FINDINGS: US examination in the longitudinal and transverse images of the ankle joint demonstrates a small amount of hypo-echoic density and signal of the ankle joint indicative of synovitis and capsulitis. IMPRESSION: US findings of capsulitis/synovitis of ankle. ASSESSMENT 1. QUIQUE (degenerative joint disease), ankle and foot, right 2. Other specified disorders of synovium, right ankle and foot 3. Onychomycosis 4. Toe pain, bilateral PLAN Discussed proper foot care with patient today. Debride nails in length and thickness digits 1 through 10 Patient to continue with oral anti - inflammatories as needed for pain and recommended OTC medications such as tylenol or Ibuprofen Pt was given steroid injection to the right ankle joint capsule and synovium under US guidance with visualization of injected fluid into area of concern per imaging. Injection consisted of a 2:1 mixture of xylocaine 2%plain and kenalog 10 for a total of 3ccs. Informed pt of risks and benefits of procedure including infection,damage or rupture to soft tissue structures and steroid flare. Pt understood and consented. This is the patients 1st injection Reviewed ultrasound today with patient Cristobal White DPM documented in this encounter [facility] 11-17-2023 Note [facility] Cardiology Clinic Note Chief Complaint: Patient here for 6 mo follow up mitral valve regurgitation, intermittent palpitations, and hypertension. Lisinopril was increased to 5mg at last apt in May 2023. BP was still running high a few weeks later so lisinopril was again increased to 10mg daily. She then c/o cough so Mirta Noni switched her to losartan 25mg daily. She isn't sure if she's taking spironolactone or not. States her chest pain is more often and hurts like hell sometimes . LE edema and SOB remain unchanged. Smokes 1/2 PPD. HPI: Robyn Thorpe is a 67 y.o. female With a history of hypertension, dyslipidemia, and smoking here in routine follow-up She describes noncardiac chest pain that occurs in the left chest, middle of the chest and lower chest. This is unrelated to exertion. She has known spine problems and has had rods placed in the lower spine. She is was told many years ago that she probably needs rods in the upper spine as well. No orthopnea, no paroxysmal external dyspnea, no lower extremity edema Cardiology ROS: Review of Systems Constitutional: Positive for diaphoresis. Cardiovascular: Positive for chest pain (more often), dyspnea on exertion, irregular heartbeat and leg swelling. Respiratory: Positive for cough, shortness of breath and wheezing. Neurological: Positive for headaches. All other systems reviewed and are negative. Past Medical History She has a past medical history of Heart valve disease and Hypertension. Surgical History She has a past surgical history that includes Cardiac catheterization; Back surgery; and section, classic. Social History She reports that she has been smoking cigarettes. She has been smoking an average of .5 packs per day. She has never used smokeless tobacco. She reports current alcohol use. No history on file for drug use. Family History Family History Problem Relation Name Age of Onset Diabetes Mother Coronary artery disease Mother Hypertension Mother Coronary artery disease Father Hypertension Father Other (cva) Father Coronary artery disease Brother Allergies Bee venom protein (honey bee), Lisinopril, and Adhesive Medications Current Outpatient Medications: albuterol 90 mcg/actuation inhaler, TAKE TWO PUFFS BY MOUTH EVERY 6 HOURS NEEDED, Disp: , Rfl: diclofenac (Voltaren) 75 mg EC tablet, Take 75 mg by mouth in the morning and at bedtime. Do not crush, chew, or split., Disp: , Rfl: EPINEPHrine 0.3 mg/0.3 mL auto-injector, USE DIRECTED FOR BEE STINGS, Disp: , Rfl: FLUoxetine (PROzac) 10 mg capsule, Take 10 mg by mouth in the morning., Disp: , Rfl: cpvliaofgtk-kqoaribkt-xvkgleub 100-62.5-25 mcg blister with device, INHALE 1 PUFF BY MOUTH EVERYDAY *RINSE MOUTH AFTER USE*, Disp: , Rfl: gabapentin (Neurontin) 100 mg capsule, Take 100 mg by mouth in the morning and at bedtime., Disp: , Rfl: gabapentin (Neurontin) 300 mg capsule, Take 300 mg by mouth at bedtime., Disp: , Rfl: lisinopril 10 mg tablet, Take 1 tablet (10 mg) by mouth in the morning., Disp: 30 tablet, Rfl: 5 losartan (Cozaar) 25 mg tablet, Take 1 tablet (25 mg) by mouth once daily as directed., Disp: 90 tablet, Rfl: 3 metoprolol tartrate (Lopressor) 25 mg tablet, Take 1 tablet by mouth in the morning and at bedtime., Disp: , Rfl: nitroglycerin (Nitrostat) 0.4 mg SL tablet, DISSOLVE 1 TABLET UNDER TONGUE NEEEDED, Disp: , Rfl: propylthiouracil (PTU) 50 mg tablet, Take 50 mg by mouth in the morning, at noon, and at bedtime., Disp: , Rfl: spironolactone (Aldactone) 25 mg tablet, Take 1 tablet (25 mg) by mouth in the morning., Disp: 90 tablet, Rfl: 3 traMADol (Ultram) 50 mg tablet, TAKE 1 TABLET BY MOUTH EVERY 8 HOURS NEEDED FOR PAIN FOR UP TO 5 DAYS., Disp: , Rfl: traZODone (Desyrel) 150 mg tablet, Take 1 tablet by mouth at bedtime., Disp: , Rfl: Last Recorded Vitals BP 142/72 (BP Location: Left arm, Patient Position: Sitting) Pulse 63 Ht 1.588 m (5' 2.5 ) Wt 92.1 kg (203 lb) SpO2 94% BMI 36.54 kg/m??? Physical Examination: GENERAL: alert and oriented x3, well developed, in no acute distress. HEAD: atraumatic, normocephalic. EYES: BRIGID, EOMI. NECK: trachea midline, no JVD present, no carotid bruits present. CARDIAC: S1, S2 present. RRR. No murmur, rubs, or gallops. RESPIRATORY: CTAB, no increased effort of breathing, no rales, rhonchi, or wheezing. ABDOMEN: soft, nontender, nondistended. EXTREMITIES: no lower extremity edema, peripheral pulses are 2+ bilaterally. No rash/skin discoloration present. NEURO: strength/sensation equal and symmetric in bilateral upper and lower extremities. PSYCH: appropriate mood, affect, and judgement. Investigations: Echocardiogram 06/04/2023: Global left ventricular systolic function is normal; EF 60 to 65%. No wall motion abnormalities. Unable to assess diastolic function. Biatrial enlargement. Right ventricle is normal in s (more content not included)... [facility] 11-17-2023 Miscellaneous Notes Patient called into office requesting Referral Tarun White [facility] for podiatry in [place] I do need a reason (diagnosis is required) to why she wants a referral. Patient would like her toe nails trimmed, she stated that her hand strength isn't there to cut them herself anymore. done documented in this encounter [facility] 11-17-2023 Telephone encounter Note Patient called into office requesting Referral Tarun THOMAS for podiatry in [place] [facility]23 Telephone encounter Note I do need a reason (diagnosis is required) to why she wants a referral. [facility] 11-17-2023 Telephone encounter Note Patient would like her toe nails trimmed, she stated that her hand strength isn't there to cut them herself anymore. [facility] 11-17-2023 Telephone encounter Note done [facility] 06-25-2023 Note HTN remains uncontro lled therefore script to increase lisinopril to 10 mg daily. Repeat BMP in 1 week Reviewed labs from 06/19/23 and renal function, liver function and cholesterol are normal and well controlled K+ 5.0- will monitor Veronica Flor NP Division of Cardiology, [facility]- [phone] Pager- [phone] Email- [email or web address] 06-10-2023 Note Increase lisinopril to 5 mg daily Continue monitoring b/p at home and staff to call in 1-2 weeks to review b/p If remains > 130/80 may transition metoprolol to coreg [facility] 06-10-2023 Note Echo reviewed with p t and noted Mod MV regurg [facility] 06-10-2023 Note Hypertension is unco ntrolled Increase lisinopril to 5 mg daily Continue metoprolol, aldactone and check BMP in 1 week to monitor renal function D/W pt about HTN with voltaren and she is not willing to stop at this time. [facility] 06-10-2023 Note [facility] CARDIOLOGY PROGR ESS NOTE HPI: Robyn Thorpe is a 67 y.o. female here for Follow-up HPI Pt states that b/p at home remains all over the place, review of log shows b/p typically is not controlled Denied chest pain, shortness of breath, orthopnea, palpitations. Admits generalized discomfort of back and legs, but denied any leg swelling Review of Systems Constitutional: Negative. Respiratory: Negative. Cardiovascular: Negative. Neurological: Negative. Negative for dizziness, syncope and light-headedness. All other systems reviewed and are negative. Visit Vitals BP 141/74 (BP Location: Left arm, Patient Position: Sitting, BP Cuff Size: Large adult) Pulse 55 Ht 1.588 m (5' 2.5 ) Wt 92.5 kg (204 lb) SpO2 95% BMI 36.72 kg/m??? Smoking Status Every Day BSA 2.02 m??? Allergies Allergen Reactions Bee Venom Protein (Honey Bee) Anaphylaxis Other reaction(s): Not available Adhesive Rash Medications: Current Outpatient Medications on File Prior to Visit Medication Sig Dispense Refill albuterol 90 mcg/actuation inhaler TAKE TWO PUFFS BY MOUTH EVERY 6 HOURS NEEDED diclofenac (Voltaren) 75 mg EC tablet Take 75 mg by mouth in the morning and at bedtime. Do not crush, chew, or split. EPINEPHrine 0.3 mg/0.3 mL auto-injector USE DIRECTED FOR BEE STINGS FLUoxetine (PROzac) 10 mg capsule Take 10 mg by mouth in the morning. bpmmoxhawmp-zzbsclvej-yzwfruqf 100-62.5-25 mcg blister with device INHALE 1 PUFF BY MOUTH EVERYDAY *RINSE MOUTH AFTER USE* gabapentin (Neurontin) 100 mg capsule Take 100 mg by mouth in the morning and at bedtime. gabapentin (Neurontin) 300 mg capsule Take 300 mg by mouth at bedtime. metoprolol tartrate (Lopressor) 25 mg tablet Take 1 tablet by mouth in the morning and at bedtime. nitroglycerin (Nitrostat) 0.4 mg SL tablet DISSOLVE 1 TABLET UNDER TONGUE NEEEDED propylthiouracil (PTU) 50 mg tablet Take 50 mg by mouth in the morning, at noon, and at bedtime. spironolactone (Aldactone) 25 mg tablet Take 1 tablet (25 mg) by mouth in the morning. 90 tablet 3 traMADol (Ultram) 50 mg tablet TAKE 1 TABLET BY MOUTH EVERY 8 HOURS NEEDED FOR PAIN FOR UP TO 5 DAYS. traZODone (Desyrel) 150 mg tablet Take 1 tablet by mouth at bedtime. [DISCONTINUED] lisinopril 2.5 mg tablet Take 1 tablet (2.5 mg) by mouth in the morning. 30 tablet 3 No current facility-administered medications on file prior to visit. Physical Exam: Constitutional: Appearance: Normal appearance. Without apparent distress, obese HENT: Head: Normocephalic and atraumatic. Nose: Nose normal. Mouth/Throat: Mouth: Mucous membranes are moist. Eyes: Extraocular Movements: Extraocular movements intact. Conjunctiva/sclera: Conjunctivae normal. Neck: Vascular: No JVD. Cardiovascular: Rate and Rhythm: Normal rate and regular rhythm. Pulses: Dorsalis pedis pulses are 3 on the right side and 3on the left side. Posterior tibial pulses are 3 on the right side and 3 on the left side. Heart sounds: Normal heart sounds, S1 normal and S2 normal. Pulmonary: Effort: Pulmonary effort is normal. Breath sounds: Normal breath sounds. Abdominal: General: Bowel sounds are normal. Palpations: Abdomen is soft. Musculoskeletal: General: Normal range of motion. Cervical back: Normal range of motion. Right lower leg: No edema. Left lower leg: No edema. Skin: General: Skin is warm and dry. Capillary Refill: Capillary refill takes less than 2 seconds. Neurological: General: No focal deficit present. Mental Status: She is alert and oriented to person, place, and time. Psychiatric: Mood and Affect: Mood normal. Behavior: Behavior normal. Thought Content: Thought content normal. Judgment: Judgment normal. Labs: renal function and electrolytes remain normal Last lab values have been reviewed CV Testin06/04/23 Echo- reviewed with pt Assessment/Plan: Benign essential HTN Hypertension is uncontrolled Increase lisinopril to 5 mg daily Continue metoprolol, aldactone and check BMP in 1 week to monitor renal function D/W pt about HTN with voltaren and she is not willing to stop at this time. Mitral valve regurgitation Echo reviewed with pt and noted Mod MV regurg Uncontrolled hypertension Increase lisinopril to 5 mg daily Continue monitoring b/p at home and staff to call in 1-2 weeks to review b/p If remains > 130/80 may transition metoprolol to coreg RTC 1-3 months staff to call pt in 1-2 weeks to review B/P log [facility] 06-02-2023 Note Hypertension is unco ntrolled with pt reporting very elevated B/p in the mornings despite starting aldactone. Will add lisinopril in the pm daily for better HTN management [facility] 05-23-2023 Note F/u with PCP [facility] 05-23-2023 Note Tobacco use is uncha nged- pt is not willing to quit smoking at this time [facility] 05-23-2023 Note Stable with metoprolol [facility] 05-23-2023 Note Repeat echo ordered in light of SOB with exertion and MR noted on prior echo [facility] 05-23-2023 Note Hypertension is elev ated continue all meds and will add aldactone to regime Repeat BMP in 1 week to assess renal function and electrolytes and pt voiced understanding [facility] 05-23-2023 Note Stable [facility] 05-23-2023 Note [facility] CARDIOLOGY PROGR ESS NOTE HPI: Robyn Thorpe is a 67 y.o. female here for routine f/U for HTN, MVR, Palpitations, tobacco dependence HPI Currently she admits shortness of breath with exertion and occasional chest discomfort that is not precipitated by any activity and resolves spontaneously- she states this is not different than usual. Denied orthopnea, palpitations or tachycardia Denied lightheadedness/dizziness or syncope Review of Systems Constitutional: Positive for fatigue. Respiratory: Negative. Cardiovascular: Negative. Neurological: Negative. All other systems reviewed and are negative. Previous HPI per Dr Ortez 06/17/22 COPD, tobacco abuse, and possible myocardial bridge here for follow-up Describes atypical, left-sided chest discomfort and back pain. She has severe spine problems. Also complains of a fluttering that occurs once or twice a week; this is unrelated to exertion. It last for a minute or so and resolve spontaneously. No associated lightheadedness or dizziness. She drinks 2 cups of coffee a day and 1-2 alcoholic beverages daily. She continues to smoke Visit Vitals BP 144/77 (BP Location: Left arm, Patient Position: Sitting) Pulse 65 Ht 1.588 m (5' 2.5 ) Wt 91.6 kg (202 lb) SpO2 95% BMI 36.36 kg/m??? Smoking Status Every Day BSA 2.01 m??? No Known Allergies Medications: Current Outpatient Medications on File Prior to Visit Medication Sig Dispense Refill albuterol 90 mcg/actuation inhaler TAKE TWO PUFFS BY MOUTH EVERY 6 HOURS NEEDED diclofenac (Voltaren) 75 mg EC tablet Take 75 mg by mouth in the morning and at bedtime. Do not crush, chew, or split. EPINEPHrine 0.3 mg/0.3 mL auto-injector USE DIRECTED FOR BEE STINGS FLUoxetine (PROzac) 10 mg capsule Take 10 mg by mouth in the morning. ubilhxsaxoo-vcbmdylch-zlmlsctn 100-62.5-25 mcg blister with device INHALE 1 PUFF BY MOUTH EVERYDAY *RINSE MOUTH AFTER USE* gabapentin (Neurontin) 100 mg capsule Take 100 mg by mouth in the morning and at bedtime. gabapentin (Neurontin) 300 mg capsule Take 300 mg by mouth at bedtime. metoprolol tartrate (Lopressor) 25 mg tablet Take 1 tablet by mouth in the morning and at bedtime. nitroglycerin (Nitrostat) 0.4 mg SL tablet DISSOLVE 1 TABLET UNDER TONGUE NEEEDED propylthiouracil (PTU) 50 mg tablet Take 50 mg by mouth in the morning, at noon, and at bedtime. traMADol (Ultram) 50 mg tablet TAKE 1 TABLET BY MOUTH EVERY 8 HOURS NEEDED FOR PAIN FOR UP TO 5 DAYS. traZODone (Desyrel) 150 mg tablet Take 1 tablet by mouth at bedtime. [DISCONTINUED] lisinopril 2.5 mg tablet Take 2.5 mg by mouth in the morning. No current facility-administered medications on file prior to visit. Physical Exam: Constitutional: Appearance: Normal appearance. Without apparent distress, obese HENT: Head: Normocephalic and atraumatic. Nose: Nose normal. Mouth/Throat: Mouth: Mucous membranes are moist. Eyes: Extraocular Movements: Extraocular movements intact. Conjunctiva/sclera: Conjunctivae normal. Neck: Vascular: No JVD. Cardiovascular: Rate and Rhythm: Normal rate and regular rhythm. Pulses: Dorsalis pedis pulses are 3 on the right side and 3on the left side. Posterior tibial pulses are 3 on the right side and 3 on the left side. Heart sounds: Normal heart sounds, S1 normal and S2 normal. Pulmonary: Effort: Pulmonary effort is normal. Breath sounds: Normal breath sounds. Abdominal: General: Bowel sounds are normal. Palpations: Abdomen is soft. Musculoskeletal: General: Normal range of motion. Cervical back: Normal range of motion. Right lower leg: No edema. Left lower leg: No edema. Skin: General: Skin is warm and dry. Capillary Refill: Capillary refill takes less than 2 seconds. Neurological: General: No focal deficit present. Mental Status: She is alert and oriented to person, place, and time. Psychiatric: Mood and Affect: Mood normal. Behavior: Behavior normal. Thought Content: Thought content normal. Judgment: Judgment normal. Labs: CBC normal Renal function normal, liver function stable Last lab values have been reviewed CV Testin06/26/22 Echo PFTs 05/25/21: moderate COPD vs asthma Cath 2017 at [facility]: non obstructive cors, possible bridging of LAD ECHO 04/26/2021: EF 55-60%,, mild LVH, grade 2 DD, biatrial enlargement, normal RV size and function, mild-mod MR, anterior free space; trivial effusion vs fat pad Echocardiogram 06/14/2020 Global left ventricular systolic function is normal. EF is 60%. The right ventricle is normal in size and systolic function. The left atrium is mildly large. Moderate mitral regurgitation. Lexiscan stress test 06/14/2020 -negative perfusion stress test for ischemia. Normal global left ventricular systolic function. No transient ischemic dilation. Normal Lexiscan ECG stress test. No echocardiogram results found for the past 12 months Assessment/Plan: Atypical chest (more content not included)... [facility] 05-23-2023 Note Patient here for 1 y ear follow up mitral valve regurgitation and hypertension. Echo was done in Jun 2022, and most recent labs in December 2022. Says her chest pain has become more frequent, but she refuses to go to the ED because she cannot afford it. She does have episodes of diaphoresis and SOB. Denies lightheadedness and palpitations. Review of Systems Constitutional: Positive for diaphoresis. Cardiovascular: Positive for chest pain, dyspnea on exertion and leg swelling. All other systems reviewed and are negative. [facility] 07-03-2022 Note PROCEDURE: XR ANKLE RT MIN 3 VIEWS HISTORY: Pain of right ankle joint COMPARISON: XR ankle right 04/03/2022 FINDINGS: BONES:Lateral plate and screw repair of distal fibular fracture with increasing density of the fracture lines. Persistent slight medial offset at the fracture site. Unremarkable tibia, ankle joint, visible hindfoot. SOFT TISSUES:No visible soft tissue swelling. EFFUSION:None visible. OTHER: Negative. IMPRESSION: 1. Stable alignment and ongoing bone healing of distal fibular fracture. No evidence of hardware failure. Electronically authenticated by: YANELIS ENGEL Date: 2022-07-03 10:27 [facility] 04-03-2022 Note PROCEDURE: XR ANKLE RT MIN 3 VIEWS, XR FOOT RT MIN 3 VIEWS HISTORY: Pain of right ankle joint COMPARISON: XR ankle right 02/27/2022 FINDINGS: BONES:Prior fracture and lateral plating of the distal fibula with persistent slight offset at fracture site. Mild sclerosis at fracture site suggesting partial healing. Intact ankle joint. Mild bunion formation. No acute abnormality of the foot. SOFT TISSUES:No visible soft tissue swelling. EFFUSION:None visible. OTHER: Negative. IMPRESSION: 1. Stable surgical repair and slight/partial healing of distal fibular fracture. 2. Mild bunion formation. Electronically authenticated by: YANELIS ENGEL Date: 2022-04-03 15:51 [facility] 04-03-2022 Note PROCEDURE: XR ANKLE RT MIN 3 VIEWS, XR FOOT RT MIN 3 VIEWS HISTORY: Pain of right ankle joint COMPARISON: XR ankle right 02/27/2022 FINDINGS: BONES:Prior fracture and lateral plating of the distal fibula with persistent slight offset at fracture site. Mild sclerosis at fracture site suggesting partial healing. Intact ankle joint. Mild bunion formation. No acute abnormality of the foot. SOFT TISSUES:No visible soft tissue swelling. EFFUSION:None visible. OTHER: Negative. IMPRESSION: 1. Stable surgical repair and slight/partial healing of distal fibular fracture. 2. Mild bunion formation. Electronically authenticated by: YANELIS ENGEL Date: 2022-04-03 15:51 [facility] 03-08-2022 Note PROCEDURE: XR ELBOW RT MIN 3 VIEWS HISTORY: Pain ; right elbow pain and contusion after falling COMPARISON: None. FINDINGS: BONES:No fracture, acute abnormality, or significant arthropathy. SOFT TISSUES:No visible soft tissue swelling. EFFUSION:None visible. OTHER: Negative. IMPRESSION: 1. No acute bone abnormality. 2. Minimal degenerative changes. Electronically authenticated by: YANELIS ENGEL Date: 2022-03-08 12:09 [facility] Evaluation note Diagnosis Renal calculus Calculus of kidney Gross hematuria documented in this encounter [employer] Phone: evaluation note* Diagnosis Renal calculus Calculus of kidney Gross hematuria documented in this encounter [employer] Phone: [email or web address] note* Diagnosis Renal calculus Calculus of kidney Gross hematuria documented in this encounter [employer] Phone: evaluation note* Diagnosis Renal calculus Calculus of kidney Pre-op testing Preoperative examination, unspecified Renal calculus Calculus of kidney documented in this encounter [employer] Phone: [email or web address] note* Diagnosis Renal calculus Calculus of kidney Pre-op testing Preoperative examination, unspecified Renal calculus Calculus of kidney documented in this encounter [employer] Phone: [email or web address] note* Diagnosis Hx of onychomycosis- Primary [facility]* Diagnosis DJD (degenerative joint disease), ankle and foot, right- Primary Other specified disorders of synovium, right ankle and foot Onychomycosis Dermatophytosis of nail Toe pain, bilateral documented in this encounter [facility]* Diagnosis Chronic bronchitis with emphysema ([facility]) Obstructive chronic bronchitis without exacerbation Arthritis, multiple joint involvement Unspecified arthropathy, multiple sites Anxiety and depression Fibromyalgia Unspecified myalgia and myositis Acquired hypothyroidism Unspecified hypothyroidism Benign essential HTN Primary insomnia Persistent disorder of initiating or maintaining sleep documented in this encounter [facility]* Diagnosis Chronic bronchitis with emphysema ([facility]) Obstructive chronic bronchitis without exacerbation Arthritis, multiple joint involvement Unspecified arthropathy, multiple sites Anxiety and depression Fibromyalgia Unspecified myalgia and myositis Acquired hypothyroidism Unspecified hypothyroidism Benign essential HTN Primary insomnia Persistent disorder of initiating or maintaining sleep History of kidney stones documented in this encounter [facility] SystemInstructionsNot on filedocumented in this encounter [facility] SystemInstructionsNot on filedocumented in this encounter [facility] SystemInstructionsNot on filedocumented in this encounter [facility] SystemReason for referral (narrative)* Consultation (Routine) - Pending Review Specialty Diagnoses / Procedures Referred By Gregor prabhakar Referred To Contact Podiatry Diagnoses Hx of onychomycosis Jairo Daley APRN-CNP [address] [place] [address] Cristobal White DPM [address] [address] Referral ID Status Reason Start Date Expiration Date Visits Requested Visits Authorized [id number] Pending Review Specialty Services Required 11/17/2023 11/16/2024 1 1 [facility] Summary Purpose Family History No Family History Records FoundNo Family History Records FoundNo Family History Records FoundNo Family History Records FoundNo Family History Records FoundNo Family History Records FoundNo Family History Records FoundNo Family History Records Found Advance Directives No Advanced Directives Records FoundNo Advanced Directives Records FoundNo Advanced Directives Records FoundNo Advanced Directives Records FoundNo Advanced Directives Records FoundNo Advanced Directives Records FoundNo Advanced Directives Records FoundNo Advanced Directives Records Found Reason for Referral Specialty Diagnoses / Procedures Referred By Contac t Referred To Contact Radiology Diagnoses Renal calculus Gross hematuria Renal Calculus [N20.0] Gross Hematuria [R31.0] Procedures CT UROGRAM CHG CT ABDOMEN & PELVIS W/O CONTRST 1/> [place] [id number] - CHG CT ABDOMEN & PELVIS W/O CONTRST 1/> BODY RE Jason Au MD [address] [facility], [address] [place] [address] Referral ID Status Reason Start Date Expiration Date Visits Re quested Visits Authorized [id number] Closed 12/12/2022 12/12/2023 1 1 Specialty Diagnoses / Procedures Referred By Contac t Referred To Contact Cardiology Diagnoses Renal calculus Pre-op testing Procedures EKG 12 Lead Bo Black, [employer]OWER [employer]PERATOR - [employer]ER [address] [facility] [address] [place] [address] Referral ID Status Reason Start Date Expiration Date Visits Re quested Visits Authorized [id number] Open 01/02/2023 01/02/2024 1 1 Additional Source Comments INFORMATION SOURCE (unrecogn ized section and content) DATE CREATED AUTHOR 11/26/2021 [facility] DATE CREATED AUTHOR AUTHOR'S ORGANIZ ATION 09/22/2022 [facility] DATE CREATED AUTHOR AUTHOR'S ORGANIZ ATION 03/03/2023 [facility] DATE CREATED AUTHOR AUTHOR'S ORGANIZ ATION [facility]/27/2023 [facility] DATE CREATED AUTHOR AUTHOR'S ORGANIZ ATION 11/21/2023 [facility] DATE CREATED AUTHOR AUTHOR'S ORGANIZ ATION 12/19/2023 [facility] DATE CREATED AUTHOR AUTHOR'S ORGANIZ ATION 12/19/2023 [facility] DATE CREATED AUTHOR AUTHOR'S ORGANIZ ATION 02/21/[address] 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 Relationship Specialty Start Date End Date Jairo Daley, [facility] [address], [place] [address] PCP - General 12/12/22 Truck Trailer Final Inspector Relationship Specialty Start Date End Date Jairo Daley, [facility] [address], [place] [address] PCP - General 12/12/22 Truck Trailer Final Inspector Relationship Specialty Start Date End Date Jairo Daley, [facility] [address], [place] [address] PCP - General 12/12/22 Truck 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 Final Inspector Relationship Specialty Start Date End Date Jairo Daley, [facility] [address], [place] [address] PCP - General 12/12/22 Truck Trailer Final Inspector Relationship Specialty Start Date End Date Jairo Daley [facility] [address], [place] [address] PCP - General Family Medicine 02/20/22 Truck Trailer Final Inspector Relationship Specialty Start Date End Date Jairo Daley [facility] [address], [place] [address] PCP - General Family Medicine 02/20/22 Truck Trailer Final Inspector Relationship Specialty Start Date End Date Jairo Daley [facility] [address], [place] [address] PCP - General Family Medicine 02/20/22 Reason for Visit (unrecogniz ed section and content) Specialty Diagnoses / Procedures Referred By Contac t Referred To Contact Radiology Diagnoses Renal calculus Gross hematuria Renal Calculus [N20.0] Gross Hematuria [R31.0] Procedures CT UROGRAM CHG CT ABDOMEN & PELVIS W/O CONTRST 1/> [place] [id number] - CHG CT ABDOMEN & PELVIS W/O CONTRST 1/> BODY RE Jason Au MD [address] [facility], [address] [place] [address] Referral ID Status Reason Start Date Expiration Date Visits Re quested Visits Authorized [id number] Closed 12/12/2022 12/12/2023 1 1 Reason Comments DM Foot Care Dm Nails/ fungus Specialty Diagnoses / Procedures Referred By Contac t Referred To Contact Podiatry Diagnoses Hx of onychomycosis Procedures AMB REFERRAL TO PODIATRY Jairo Daley CRNP [address] [place] [address] Cristobal White, DPBrock [address] [place] [address] Referral ID Status Reason Start Date Expiration Date Visits Re quested Visits Authorized [id number] Closed 11/17/2023 11/16/2024 1 1 Reason Onset Date Comments Med Refill 01/13/2024 Reason Onset Date Comments Med Refill 01/15/2024 FOR RECORDS PERTAINING TO PATIENTS WHO ARE OR HAVE BEEN ENROLLED IN A CHEMICAL DEPENDENCY/SUBSTANCEABUSE PROGRAM, SOME INFORMATION MAY BE OMITTED. This clinical summary was aggregated from multiple sources. Caution should be exercised in using it in the provision of clinical care. This summary normalizes information from multiple sources, and as a consequence, information in this document may materially change the coding, format and clinical context of patient data. In addition, data may be omitted in some cases. CLINICAL DECISIONS SHOULD BE BASED ON THE PRIMARY CLINICAL RECORDS. [facility] [employer]. provides no warranty or guarantee of the accuracy or completeness of information in this document.
--- NOTE | 2024-03-08 07:12 | MR_ITS ---
The [address] [address] Patient Name: FRANKO NUNEZ MRN: [id number] date: 1955 Sex: F Assigned Patient Location: MRI Current Patient Location: Accession/Order Number: [id number] Exam Date: 03/08/2024 07:40 Report Date: 03/09/2024 08:48 At the request of: IVA OWENS Procedure: MR ankle RT wo con EXAM: MR ankle RT wo con REASON FOR EXAM: Osteochondritis Dissecans Of Right Ankle M93.271. TECHNIQUE: Multiplanar, multisequence imaging of the right ankle was performed without contrast COMPARISON: Radiographs 07/03/2022. FINDINGS: There is fusiform thickening and intermediate signal the Achilles tendon consistent with tendinosis. No tear identified. The plantar fascia is intact without tear. Laterally, the peroneal tendons are mildly thickened with intermediate signal consistent with tendinosis. There is a short segment longitudinal split tear of the retromalleolar peroneus brevis tendon extending the level the peroneal tubercle. A complete rupture not identified. The superficial peroneal retinaculum is intact. The anterior talofibular ligament is significantly thin and attenuated likely reflecting prior lateral ligamentous injury. No evidence of acute lateral ligamentous injury. Medially, the medial flexor tendons demonstrate normal thickness and signal without tendinosis or tear. Note is made of a small os navicularis without significant edema at the synchondrosis. The deep deltoid ligament is intact. The spring ligament is partially imaged and appears intact. The Lisfranc ligament is intact. Anteriorly, the anterior extensor tendons demonstrate normal thickness and signal without tendinosis or tear. There are surgical changes from prior ORIF of a distal fibular fracture. No acute fracture identified. No osteonecrosis. The talar dome appears congruent. An osteochondral defect not identified. The subtalar joint is congruent. The sinus tarsi is nonedematous. The midfoot is congruent with mild joint space narrowing marginal osteophytes, most notable at the talonavicular joint. The plantar musculature demonstrates mild atrophy. Remaining soft tissues are unremarkable. MR/MR ankle RT wo con IMPRESSION: 1. Surgical changes from ORIF of a distal fibular fracture. No acute fracture is evident. 2. Sequela of prior ATFL sprain. No evidence of acute ligamentous injury. 3. Peroneal tendinosis with a short segment longitudinal split tear of the peroneus brevis tendon. Complete rupture not identified. 4. Achilles tendinosis without tear. Electronically authenticated by: KERON WALTON Date: 03/09/2024 08:48
== END 2024-03-08 07:01 | disposition home or self-care (01) ==
PROVIDERS: PCP Nurse Practitioner
DX: M93.271 Osteochondritis dissecans, right ankle and joints of right foot (principal); M76.61 Achilles tendinitis, right leg
CPT/HCPCS: 73721

== ENCOUNTER 2024-04-25 08:23 | Emergency (ER) | payer OTHER, SELFPAY ==
[2024-04-25] VITALS (13 sets, daily range): BP systolic 160; BP diastolic 73; PULSE 60–76; O2SAT 93–99; BMI 26.5
--- NOTE | 2024-04-25 08:41 | CT_ITS ---
The [address] [address] Patient Name: FRANKO NUNEZ MRN: [id number] date: 1955 Sex: F Assigned Patient Location: ER Current Patient Location: ER Accession/Order Number: [id number] Exam Date: 04/25/2024 09:18 Report Date: 04/25/2024 10:39 At the request of: EMRE ZARATE Procedure: CT head/brain wo con PROCEDURE: CT head/brain wo con, 04/25/2024 9:18 AM EDT CLINICAL INDICATIONS: Traumatic injury, fall from stairs COMPARISON: None TECHNIQUE: Thin section axial images obtained through the brain without IV contrast. Helical acquisition technique was utilized with multiplanar reformatted images obtained. Dose reduction techniques were achieved by using automated exposure control and/or adjustment of mA and/or kV according to patient size and/or use of iterative reconstruction technique. FINDINGS: Ventricular system and CSF spaces are age appropriate. The [place] and white matter differentiation is preserved. Acute hemorrhage or mass effect is not demonstrated. No abnormal extraaxial fluid collection is seen. Minimal periventricular white matter changes seen. Mild internal and external capsule white matter changes noted. Mastoid air cells and middle ear are clear. Displaced calvarium fracture is not seen. Regional soft tissues are unremarkable. CT/CT head/brain wo con IMPRESSION: 1. No acute traumatic intracranial pathology, hemorrhage or mass effect 2. Mild periventricular, internal and external capsule white matter changes, likely microvascular ischemic in a patient this age Electronically authenticated by: ELYSIA GONZALEZ Date: 04/25/2024 10:39
--- NOTE | 2024-04-25 08:41 | CT_ITS ---
The [address] [address] Patient Name: FRANKO NUNEZ MRN: [id number] date: 1955 Sex: F Assigned Patient Location: ER Current Patient Location: ER Accession/Order Number: [id number] Exam Date: 04/25/2024 09:18 Report Date: 04/25/2024 10:49 At the request of: EMRE ZARATE Procedure: CT cervical spine wo con PROCEDURE: CT cervical spine wo con, 04/25/2024 9:18 AM EDT CLINICAL INDICATIONS: Traumatic injury, fall COMPARISON: None TECHNIQUE: Thin section axial images obtained from base of skull to thoracic inlet without IV contrast. Helical acquisition technique was utilized with multiplanar reformatted images obtained. Dose reduction techniques were achieved by using automated exposure control and/or adjustment of mA and/or kV according to patient size and/or use of iterative reconstruction technique. FINDINGS: Well-corticated ossicles identified along the superior margin of the dens, inferior clivus and anterior C1 arch. Remote process favored. Alignment is intact and coronal and sagittal reformatted images. Disc degeneration mild spondylitic change throughout mid and lower cervical spine levels noted. Disc and osteophyte complexes are seen with mild to moderate encroachment ventral left C3-4, C4-5, C5-6 and diffusely at C6-7 levels. The neural arch is intact at each level. Anatomic resolution of central neural contents is limited due to beam-hardening artifact. Fracture is not demonstrated. Uncovertebral and facet arthropathy results in left C3-4 bilateral C4-5, bilateral C5-6 and C6-7 foraminal encroachment. Bilateral cervical carotid artery calcified atheromatous plaque is noted. Regional soft tissues unremarkable. CT/CT cervical spine wo con IMPRESSION: 1. No acute traumatic osseous cervical spine pathology 2. Well-corticated remote ossicle at the interface of the dens, inferior clivus and anterior C1 arch 3. Multilevel disc degeneration, spondylosis spanning C3-C7 with disc and osteophyte complexes, mild to moderate canal compromise as described 4. Cervical uncovertebral and facet arthropathy with foraminal encroachment as described 5. Bilateral cervical carotid artery calcified atheromatous plaque Electronically authenticated by: ELYSIA GONZALEZ Date: 04/25/2024 10:49
--- NOTE | 2024-04-25 08:41 | XR_ITS ---
[address] [address] Patient Name: FRANKO NUNEZ MRN: [id number] date: 1955 Sex: F Assigned Patient Location: ER Current Patient Location: ER Accession/Order Number: [id number] Exam Date: 04/25/2024 09:35 Report Date: 04/25/2024 10:55 At the request of: EMRE ZARATE Procedure: XR forearm RT 2V EXAM: XR forearm RT 2V HISTORY: trauma COMPARISON: None. FINDINGS/IMPRESSION: 1. No acute fracture or dislocation. 2. Normal alignment of the elbow and wrist. Electronically authenticated by: RAMIRO ROSENTHAL Date: 04/25/2024 10:55
--- NOTE | 2024-04-25 08:41 | CT_ITS ---
[address] [address] Patient Name: FRANKO NUNEZ MRN: [id number] date: 1955 Sex: F Assigned Patient Location: ER Current Patient Location: ER Accession/Order Number: [id number] Exam Date: 04/25/2024 09:18 Report Date: 04/25/2024 11:11 At the request of: EMRE ZARATE Procedure: CT chest wo con PROCEDURE: CT abdomen pelvis wo con, CT chest wo con, 04/25/2024 9:18 AM EDT CLINICAL INDICATIONS: Traumatic injury, fall from stairs COMPARISON: CT abdomen 08/07/2022, CT chest 05/29/2023 TECHNIQUE: Thin section axial images obtained through the chest, abdomen and pelvis without the administration of intravenous contrast. Helical acquisition technique was utilized with multiplanar reformatted images obtained. Dose reduction techniques were achieved by using automated exposure control and/or adjustment of mA and/or kV according to patient size and/or use of iterative reconstruction technique. FINDINGS: CORONARY ARTERIES: Mild right coronary artery calcified atheromatous plaque. CT CHEST: Pericardial effusion measures up to 0.8 cm. Mitral valve annular calcification seen. Mild thoracic aortic calcified plaque, normal size aorta. Central pulmonary arterial pathology is not suspected. Normal esophagus. No mediastinal hematoma. No pathologic pulmonary lymphadenopathy. Thoracic inlet, chest wall, axillary regions are normal. Hyperinflation with upper lobe predominant centrilobular emphysema noted. Mild endotracheal, left main bronchial secretions seen. Calcified granulomata are seen. Linear scar or atelectasis involving the lingula noted. Pulmonary laceration, contusion, consolidation, pleural effusion or pneumothorax are not suspected. Stable scattered noncalcified pulmonary nodules measure up to; 0.3 cm medial segment right middle lobe 0.3 cm apical posterior segment left upper lobe 0.2 cm anterior basilar segment left lower lobe Accentuated thoracic kyphosis is noted. Multilevel mid and lower thoracic spine disc degeneration spondylitic changes seen. Convincing sign of acute traumatic osseous pathology is not demonstrated. CT ABDOMEN: Calcified hepatic and splenic granulomatous changes noted. Liver is enlarged , right lobe up to 17.1 cm. Minimal lobular contour noted. Gallbladder is nondistended. Calculus or bile duct dilatation are not suspected. Normal adrenal glands. Opaque medication within nondistended stomach is seen. Pancreas is atrophic. Moderate to severe calcified atheromatous plaque, normal size aorta and iliac vasculature. Inferior vena cava unremarkable. Bilateral nephrolithiasis; 0.4 cm, 0.3 cm, 0.3 cm lower pole right 0.6 cm lower pole left. Urinary tract calculus, obstructive uropathy are not demonstrated. Focal renal abnormality is not suspected. CT PELVIS: Uterus surgically absent. Vaginal cuff symmetric. Pelvic phleboliths noted. Adnexal pathology is not seen. Urinary bladder is decompressed. Stool and gas are seen within nondistended colon. Colonic redundancy is noted. Bowel pattern nonobstructive. Appendix is not seen. No abdominal or pelvic hematoma, free fluid, abscess, ectopic gas noted. Mild portacaval lymph node prominence up to 1.9 x 1.3 cm noted. Additional pathologic adenopathy is not suspected. L4-5 interbody disc fusion, transpedicular screw, murtaza fixation noted, no hardware complication. Acute traumatic osseous pathology is not suspected. Lumbosacral facet arthropathy is seen. CT/CT chest wo con IMPRESSION: 1. 0.8 cm pericardial effusion, not evident previously. 2. No acute traumatic thoracic abdominal or pelvic pathology. Solid organ assessment is diminished given lack of intravenous contrast. 3. Chronic obstructive pulmonary disease, upper lobe predominant centrilobular emphysema 4. Endobronchial, left bronchial secretions, no acute pulmonary pathology. Mild bronchitis, airways disease, aspiration could present this pattern 5. Stable noncalcified pulmonary nodules up to 0.3 cm. 12 month follow-up recommended. 6. Hepatomegaly, mild nonspecific lobular contour. Spleen normal in size, no ascites. 7. Bilateral nonobstructive nephrolithiasis 8. Borderline portacaval lymph node prominence, reactive lymph node enlargement favored. Electronically authenticated by: ELYSIA GONZALEZ Date: 04/25/2024 11:11
--- NOTE | 2024-04-25 08:41 | ECG_ITS ---
The [facility] Test Date: 2024-04-25 Pat Name: FRANKO NUNEZ Department: Room: - Gender: Female [employer] Deputy: : 1955 Requested By: Emmie Daley Order Number: [id number] Reading MD: ANDREY DESIR Measurements Intervals [place] Rate: 61 P: 75 RI: 138 QRS: 29 QRSD: 128 T: 27 QT: 466 QTc: 469 Interpretive Statements 1100 Sinus rhythm 2450 Right bundle branch block 9150 abnormal ECG Compared to ECG 12/03/2022 09:42:45 No significant changes Electronically Signed On 04-26-2024 6:52:54 EDT by ANDREY DESIR
--- NOTE | 2024-04-25 08:41 | XR_ITS ---
[address] [address] Patient Name: FRANKO NUNEZ MRN: [id number] date: 1955 Sex: F Assigned Patient Location: ER Current Patient Location: Accession/Order Number: [id number] Exam Date: 04/25/2024 09:35 Report Date: 04/25/2024 10:54 At the request of: EMRE ZARATE Procedure: XR foot RT min 3V EXAM: XR foot RT min 3V HISTORY: fall COMPARISON: None. FINDINGS/IMPRESSION: 1. No acute fracture or dislocation. 2. Mild degeneration of the interphalangeal joints. 3. Plate and screw fixation of the distal fibula. Electronically authenticated by: RAMIRO ROSENTHAL Date: 04/25/2024 10:54
--- NOTE | 2024-04-25 08:41 | CT_ITS ---
[address] [address] Patient Name: FRANKO NUNEZ MRN: [id number] date: 1955 Sex: F Assigned Patient Location: ER Current Patient Location: ER Accession/Order Number: [id number] Exam Date: 04/25/2024 09:18 Report Date: 04/25/2024 11:11 At the request of: EMRE ZARATE Procedure: CT abdomen pelvis wo con PROCEDURE: CT abdomen pelvis wo con, CT chest wo con, 04/25/2024 9:18 AM EDT CLINICAL INDICATIONS: Traumatic injury, fall from stairs COMPARISON: CT abdomen 08/07/2022, CT chest 05/29/2023 TECHNIQUE: Thin section axial images obtained through the chest, abdomen and pelvis without the administration of intravenous contrast. Helical acquisition technique was utilized with multiplanar reformatted images obtained. Dose reduction techniques were achieved by using automated exposure control and/or adjustment of mA and/or kV according to patient size and/or use of iterative reconstruction technique. FINDINGS: CORONARY ARTERIES: Mild right coronary artery calcified atheromatous plaque. CT CHEST: Pericardial effusion measures up to 0.8 cm. Mitral valve annular calcification seen. Mild thoracic aortic calcified plaque, normal size aorta. Central pulmonary arterial pathology is not suspected. Normal esophagus. No mediastinal hematoma. No pathologic pulmonary lymphadenopathy. Thoracic inlet, chest wall, axillary regions are normal. Hyperinflation with upper lobe predominant centrilobular emphysema noted. Mild endotracheal, left main bronchial secretions seen. Calcified granulomata are seen. Linear scar or atelectasis involving the lingula noted. Pulmonary laceration, contusion, consolidation, pleural effusion or pneumothorax are not suspected. Stable scattered noncalcified pulmonary nodules measure up to; 0.3 cm medial segment right middle lobe 0.3 cm apical posterior segment left upper lobe 0.2 cm anterior basilar segment left lower lobe Accentuated thoracic kyphosis is noted. Multilevel mid and lower thoracic spine disc degeneration spondylitic changes seen. Convincing sign of acute traumatic osseous pathology is not demonstrated. CT ABDOMEN: Calcified hepatic and splenic granulomatous changes noted. Liver is enlarged , right lobe up to 17.1 cm. Minimal lobular contour noted. Gallbladder is nondistended. Calculus or bile duct dilatation are not suspected. Normal adrenal glands. Opaque medication within nondistended stomach is seen. Pancreas is atrophic. Moderate to severe calcified atheromatous plaque, normal size aorta and iliac vasculature. Inferior vena cava unremarkable. Bilateral nephrolithiasis; 0.4 cm, 0.3 cm, 0.3 cm lower pole right 0.6 cm lower pole left. Urinary tract calculus, obstructive uropathy are not demonstrated. Focal renal abnormality is not suspected. CT PELVIS: Uterus surgically absent. Vaginal cuff symmetric. Pelvic phleboliths noted. Adnexal pathology is not seen. Urinary bladder is decompressed. Stool and gas are seen within nondistended colon. Colonic redundancy is noted. Bowel pattern nonobstructive. Appendix is not seen. No abdominal or pelvic hematoma, free fluid, abscess, ectopic gas noted. Mild portacaval lymph node prominence up to 1.9 x 1.3 cm noted. Additional pathologic adenopathy is not suspected. L4-5 interbody disc fusion, transpedicular screw, murtaza fixation noted, no hardware complication. Acute traumatic osseous pathology is not suspected. Lumbosacral facet arthropathy is seen. CT/CT abdomen pelvis wo con IMPRESSION: 1. 0.8 cm pericardial effusion, not evident previously. 2. No acute traumatic thoracic abdominal or pelvic pathology. Solid organ assessment is diminished given lack of intravenous contrast. 3. Chronic obstructive pulmonary disease, upper lobe predominant centrilobular emphysema 4. Endobronchial, left bronchial secretions, no acute pulmonary pathology. Mild bronchitis, airways disease, aspiration could present this pattern 5. Stable noncalcified pulmonary nodules up to 0.3 cm. 12 month follow-up recommended. 6. Hepatomegaly, mild nonspecific lobular contour. Spleen normal in size, no ascites. 7. Bilateral nonobstructive nephrolithiasis 8. Borderline portacaval lymph node prominence, reactive lymph node enlargement favored. Electronically authenticated by: ELYSIA GONZALEZ Date: 04/25/2024 11:11
--- NOTE | 2024-04-25 08:41 | XR_ITS ---
The [address] [address] Patient Name: FRANKO NUNEZ MRN: [id number] date: 1955 Sex: F Assigned Patient Location: ER Current Patient Location: ER Accession/Order Number: [id number] Exam Date: 04/25/2024 09:35 Report Date: 04/25/2024 10:34 At the request of: EMRE ZARATE Procedure: XR tibia fibula LT 2V PROCEDURE: XR knee LT 4V, XR tibia fibula LT 2V, 04/25/2024 9:35 AM EDT CLINICAL INDICATIONS: Traumatic injury, fall from stairs, low lower extremity pain COMPARISON: None TECHNIQUE: Left knee 4 images. Left tibia-fibula 3 images. FINDINGS: LEFT KNEE: Tricompartment osteoarthrosis most apparent medial femoral-tibial and patellofemoral joint levels is seen. Mild medial femoral on tibial subluxation is noted. Acute osseous pathology is not demonstrated. No knee effusion. Vascular calcifications are noted. LEFT TIBIA FIBULA: Acute osseous pathology is not demonstrated. Regional soft tissues normal. XR/XR tibia fibula LT 2V IMPRESSION: 1. No acute traumatic osseous left knee, tibia or fibular pathology. 2. Tricompartment left knee osteoarthrosis, most apparent medial femoral-tibial and patellofemoral compartment. Medial femoral on tibial subluxation Electronically authenticated by: ELYSIA GONZALEZ Date: 04/25/2024 10:34
--- NOTE | 2024-04-25 08:41 | XR_ITS ---
The [address] [address] Patient Name: FRANKO NUNEZ MRN: [id number] date: 1955 Sex: F Assigned Patient Location: ER Current Patient Location: ER Accession/Order Number: [id number] Exam Date: 04/25/2024 09:35 Report Date: 04/25/2024 10:34 At the request of: EMRE ZARATE Procedure: XR knee LT 4V PROCEDURE: XR knee LT 4V, XR tibia fibula LT 2V, 04/25/2024 9:35 AM EDT CLINICAL INDICATIONS: Traumatic injury, fall from stairs, low lower extremity pain COMPARISON: None TECHNIQUE: Left knee 4 images. Left tibia-fibula 3 images. FINDINGS: LEFT KNEE: Tricompartment osteoarthrosis most apparent medial femoral-tibial and patellofemoral joint levels is seen. Mild medial femoral on tibial subluxation is noted. Acute osseous pathology is not demonstrated. No knee effusion. Vascular calcifications are noted. LEFT TIBIA FIBULA: Acute osseous pathology is not demonstrated. Regional soft tissues normal. XR/XR knee LT 4V IMPRESSION: 1. No acute traumatic osseous left knee, tibia or fibular pathology. 2. Tricompartment left knee osteoarthrosis, most apparent medial femoral-tibial and patellofemoral compartment. Medial femoral on tibial subluxation Electronically authenticated by: ELYSIA GONZALEZ Date: 04/25/2024 10:34
--- NOTE | 2024-04-25 08:41 | XR_ITS ---
The [address] [address] Patient Name: FRANKO NUNEZ MRN: [id number] date: 1955 Sex: F Assigned Patient Location: ER Current Patient Location: ER Accession/Order Number: [id number] Exam Date: 04/25/2024 09:35 Report Date: 04/25/2024 11:01 At the request of: EMRE ZARATE Procedure: XR wrist RT min 3V PLAIN FILM OF WRIST RIGHT HISTORY: wrist pain. In a 68-year-old female with fall down the stairs now with right proximal forearm pain. TECHNIQUE: 3 views of the wrist submitted for review. COMPARISON: None. FINDINGS: There is a nondisplaced hairline fracture seen involving the metadiaphysis of the medial aspect of the right radius. Overlying soft tissue swelling is demonstrated. There is some degenerative change involving joint spaces. Bone mineralization is decreased. Soft tissues are edematous.. IV tubing is demonstrated. XR/XR wrist RT min 3V IMPRESSION: Nondisplaced hairline fracture involving the medial metadiaphysis of the right radius. Electronically authenticated by: STEVAN MCCLAIN Date: 04/25/2024 11:01
--- NOTE | 2024-04-25 08:41 | XR_ITS ---
[address] [address] Patient Name: FRANKO NUNEZ MRN: [id number] date: 1955 Sex: F Assigned Patient Location: ER Current Patient Location: ER Accession/Order Number: [id number] Exam Date: 04/25/2024 09:35 Report Date: 04/25/2024 10:57 At the request of: EMRE ZARATE Procedure: XR shoulder LT min 2V EXAM: XR shoulder LT min 2V HISTORY: trauma COMPARISON: None. FINDINGS/IMPRESSION: 1. No acute fracture or dislocation. 2. Normal alignment of the left shoulder. Normal alignment of the acromioclavicular joint. 3. Moderate degeneration of the lower cervical spine disc spaces. Electronically authenticated by: RAMIRO ROSENTHAL Date: 04/25/2024 10:57
--- OUTSIDE RECORDS SUMMARY | 2024-04-25 08:48 | XMS_ITS ---
Patient Summarization (C-CDA 2.1 CCD) Created on: April 25, 2024 ROBYN THORPE : 1955 Sex: Undifferentiated Author Organization Sample organization Care Team Providers Care Construction Sales Manager Name Role Phone RANDAL ORTIZ Attending Unavailable Daley BIOLOGY TUTOR - RU[employer]ER GOODS ASSEMBLER, Jairo Cabrera Primary Care [facility] ider BRAULIO LASSITER Consulting Unavailable AJIT ., JERI Attending Unavailable AJIT ., JERI Admitting Unavailable DALEY, JAIRO Primary Care Unavailable AJIT ., JERI Consulting Unavailable JANEEN POOLE Consulting Unavailable AMALIA ., FAVIO Attending Unavailable AMALIA ., FAVIO Admitting Unavailable DALEY, JAIRO Primary Care Unavailable AMALIA ., FAVIO Consulting Unavailable ZIEBYADI, DR YANELIS Zaldivar Consulting [...] JAIRO Admitting Unavailable DALEY, JAIRO Consulting Unavailable MYRA, DR XAVIER Gonzalez Consulting Unavailable DALEY, JAIRO Primary Care Unavailable DALEY, JAIRO Attending Unavailable DALEY, JAIRO Admitting Unavailable ZIEBER, DR YANELIS Zaldivar Consulting Unavailable DALEY, JAIRO Consulting Unavailable TIMMIS, DR TSAI Consulting Unavailable DALEY, JAIRO Primary Care Unavailable TIMMIS, DR TSAI Attending Unavailable TIMKVNG, DR TSAI Admitting Unavailable ZIEBER, DR YANELIS Zaldivar Consulting Unavailable ZIEBYADI, DR YANELIS Zaldivar Consulting Unavailable DALEY, JAIRO Primary Care Unavailable SUNNY VALENTIN Attending Unavailable SUNNY VALENTIN Admitting Unavailable SUNNY VALENTIN Consulting Unavailable JANET, DR XAVIER Gonzalez Consulting Unavailable DALEY, JAIRO Primary Care Unavailable SAM .FAN Attending Unavailable SAMSA ., FAN Admitting Unavailable SAMSA ., FAN Consulting Unavailable DR YANELIS ENGEL Consulting Unavailable DALEY, JAIRO Primary Care Unavailable SUNNY VALENTIN Attending Unavailable SUNNY VALENTIN Admitting Unavailable SUNNY VALENTIN Consulting Unavailable BO BLACK Referring Unavailable DALEY, JAIRO [...] Unavailable DALEY, JAIRO J Primary Care Unavailable ARIELELLBO W Referring Unavailable DALEY, JAIRO J Primary Care Unavailable BO BLACK Referring Unavailable DALEY, JAIRO J Primary Care Unavailable Daley BIOLOGY TUTOR-RU[employer]ER GOODS ASSEMBLER, Jairo J Primary Care Provid er VERONICA FLOR Attending Unavailable [facility], Attending Unavailable VERONICA FLOR Attending Unavailable Unavailable Primary Care Provider Unavailabl e DALEY, JAIRO J Referring Unavailable DALEY, JAIRO J Primary Care Unavailable CRISTOBAL WHITE Attending Unavailable DALEY, JAIRO Referring Unavailable CRISTOBAL WHITE Attending Unavailable CRISTOBAL WHITE Attending Unavailable DALEY, JAIRO Rick Attending Unavailable DALEY, JAIRO J Referring Unavailable DALEY, JAIRO J Primary Care Unavailable DALEY, JAIRO J Attending Unavailable DALEY, JAIRO J Referring Unavailable DALEY, JAIRO J Primary Care Unavailable Allergies Allergy Classification Reported Allergen(s) Allergy Type Date of Onset Reaction(s) Facility (5 sources) Silicone adhesive tape Propensity to adverse reactions to drug 3 [facility] (1 source) bee venom Drug allergy (disorder) 6 [facility] (1 source) Latex Drug allergy (disorder) [facility] (6 sources) Adhesive agent; Translations: [ADHESIVE] Propensity to adverse reactions to drug 3 [facility] (6 sources) Lisinopril; Translations: [LISINOPRIL] Drug Allergy 3 Cough [facility] (6 sources) Bee Venom Protein (Honey Bee); Translations: [BEE VENOM PROTEIN (HONEY BEE)] Propensity to adverse reactions to drug 3 [facility] (2 sources) Honey bee venom Allergy to substance 3 Anaphylaxis [facility] (2 sources) Lisinopril Propensity to adverse reactions 3 Cough [facility] (2 sources) Attends Briefs Small Drug Intolerance 3 Rash [facility] NEGATED: Highlighted row has been ruled out! (5 sources) Other Propensity to adverse reactions 2 [facility] Encounters Encounter Date Encounter Type Care Provider Facility Start: 04-12-2024 End: 04-12-2024 ambulatory [facility] Start: 03-11-2024 End: 03-11-2024 ambulatory CRISTOBAL WHITE Not Available Start: 02-19-2024 End: 02-19-2024 ambulatory CRISTOBAL WHITE Not Available Start: 01-15-2024 Refill Isidra Vanesa [facility] Comment on above: Chronic bronchitis w ith emphysema; Arthritis, multiple joint involvement; Anxiety and depression; Fibromyalgia; Acquired hypothyroidism; Benign essential HTN; Primary insomnia; History of kidney stones Start: 01-13-2024 Refill Isidra Vanesa [facility] Comment on above: Chronic bronchitis w ith emphysema; Arthritis, multiple joint involvement; Anxiety and depression; Fibromyalgia; Acquired hypothyroidism; Benign essential HTN; Primary insomnia Start: 12-11-2023 End: 12-12-2023 ambulatory [facility] Start: 12-11-2023 End: 12-11-2023 ambulatory [facility] Start: 12-04-2023 End: 12-04-2023 ambulatory [...] Chart abstracting Cristobal greer DPM Work Phone: [facility] Start: 11-17-2023 Telephone encounter Hilario Martinsediclex[facility] Start: 11-17-2023 End: 11-17-2023 ambulatory AB [facility] Start: 06-10-2023 End: 06-10-2023 ambulatory [facility] Start: 05-23-2023 End: 05-23-2023 ambulatory [facility] Start: 04-25-2023 End: 04-28-2023 ambulatory BO Zhanna [facility] Start: 01-21-2023 End: 01-21-2023 ambulatory JASON AU [facility] Start: 01-03-2023 End: 01-04-2023 ambulatory BO Zhanna [facility] Start: 01-03-2023 Encounter for other preprocedural examination [facility] Start: 01-03-2023 End: 01-03-2023 Patient encounter status Jairo Britt CNP Work Phone: [facility] EKG Start: 01-03-2023 End: 01-03-2023 Subsequent hospital visit by physician Jairo Britt CNP Work Phone: [facility] EKG Comment on above: Renal calculus; Pre-op testing Start: 12-26-2022 End: 12-29-2022 ambulatory [facility] Start: 12-26-2022 End: 12-28-2022 Subsequent hospital visit by physician [facility] Scan Room [facility] Laboratory Comment on above: Renal calculus; Gross hematuria Start: 12-12-2022 End: 12-13-2022 ambulatory JASON [facility] Start: 12-12-2022 End: 12-12-2022 Subsequent hospital visit by physician Jairo Britt CNP Work Phone: [facility] Laboratory Comment on above: Renal calculus; Gross hematuria Start: 12-03-2022 End: 12-03-2022 ambulatory JANEEN POOLE Facility:[facility] Start: 10-21-2022 End: 10-22-[address] EULALIO MENESES Facility:[facility] Start: 09-11-2022 End: 09-22-2022 Emergency department patient visit RANDAL ORTIZ Facility:[facility] Start: 08-13-2022 End: 08-14-[address] XAVIER [...] 03-08-2022 End: 03-08-[address] YANELIS ENGEL Facility:[facility] Immunizations Immunization Date Immunization Notes Care Provider Cristine hunt 08-20-2023 Influenza Vaccine, Quadrivalent, Adjuvanted [facility] 10-02-2022 Pneumococcal Conjuga te 20-valent Adysan Sleek [facility] 10-02-2022 pneumococcal conjuga te vaccine, [address] [facility] 07-30-2022 Influenza Vaccine, Quadrivalent, Adjuvanted [facility]an [facility] Medications Current Medications Medication Drug Class(es) Dates [...] tab Q 4 hrs PRN 0 Active [id number] 200 actuat albuterol 0.09 mg/actuat metered dose [...] 1 TABLET BEFORE BEDTIME 0 11/17/2022 Active [id number] 0.3 ml EPINEPHrine 1 mg/ml auto-injector (10 [...] Start: 08-03-2023 take 1 capsule by mo ut once daily FLUoxetine (PROzac) 10 mg capsule [...] 01/13/2024 Discontinued (Reorder) take 1 puff(s) by mo uth once daily wqruvzmtohn-blikiiukz-nbsgyl (TRELEGY ELLIPTA) 100-62.5-25 MCG/ACT AEPB inhaler Trelegy [...] capsule 1 01/15/2024 Active Start: 12-11-2023 End: 01-15-2024 take 1 capsule by mouth [...] Start: 10-28-2022 take 1 capsule by mo [facility] at bedtime gabapentin (NEURONTIN) 300 MG capsule [...] (Reorder) Start: 10-02-2023 [facility] levothyroxine (SYNTHROID, LEVOTHROID) 50 [...] iopamidol (ISOVUE-370) 76 % injection 120 mL Payers Date Payer Category Payer Unknown [id number] 2023 Medicaid [id number] 2023 Medicare [id number] 2023 Medicare [id number] 2022 Medicaid [place]ICAID [place] [employer] -[place] ONLY [id number] 2022-Present [phone] [address] [place] [address] [id number] [id number] 2022 Medicare [id number] 1.13.424.2.7.3.6 [id number] 2017 Medicare [id number] 1.2.840.114684.1.13.239.2.7.3.6 [id number] 2017 Unknown [id number] 1959 Medicaid [id number] 1959 Medicare [id number] 1959 Unknown [id number] 1955 Unknown [id number] 2.16.840.1.385791.3.579.2.593 1955 Unknown [id number] 2.16.840.1.878916.3.579.2.593 1955 Unknown [id number] 2.16.840.1.748008.3.579.2.593 1955 Unknown [id number] 2.16.840.1.195614.3.579.2.593 1955 Unknown [id number] 2.16.840.1.552169.3.579.2.593 1955 Unknown [id number] 2.16.840.1.068016.3.579.2.593 1955 Unknown [id number] 2.16.840.1.716397.3.579.2.593 1956 Unknown [id number] 2.16.840.1.787397.3.579.2.593 1955 Unknown [id number] 2.16.840.1.121406.3.579.2.593 1955 Unknown [id number] 2.16.840.1.858577.3.579.2.593 1955 Unknown [id number] 2.16.840.1.806348.3.579.2.173 1955 Unknown [id number] 2.16.840.1.093368.3.579.2.173 1955 Unknown [id number] 2.16.840.1.559226.3.579.2.173 1955 Unknown [id number] 2.16.840.1.845019.3.579.2.173 1955 Unknown [id number] 2.16.840.1.276390.3.579.2.173 1955 Unknown [id number] 2.16.840.1.425571.3.579.2.173 1955 Unknown [id number] 2.16.840.1.159808.3.579.2.173 1956 Unknown [id number] 2.16.840.1.490069.3.579.2.173 1955 Unknown [id number] 2.16.840.1.449051.3.579.2.1286 1956 Unknown [id number] 2.16.840.1.841308.3.579.2.1259 1956 Unknown [id number] 2.16.840.1.882389.3.579.2.1259 1956 Unknown [id number] 2.16.840.1.481320.3.579.2.1259 1956 Unknown [id number] 2.16.840.1.093022.3.579.2.1286 1955 Unknown [id number] 2.16.840.1.986587.3.579.2.1286 Plan of Treatment Date Care Activity Detail Author Start: 12-11-2024 Adult BMI Follow Up Plan Adult BMI F ollow Up Plan [facility] Start: 12-11-2024 Adult BMI Screening Adult BMI Screen ing [facility] Start: 12-11-2024 Depression Screening Depression Scre [facility] Start: 12-11-2024 Fall Risk Screening Fall Risk Screen ing [facility] Start: 12-11-2024 Tobacco Screening Tobacco Screening [facility] Start: 08-20-2024 Adult BMI Follow Up Plan Adult BMI F ollow Up Plan [facility] Start: 08-20-2024 Adult BMI Screening Adult BMI Screen ing [facility] Start: 08-20-2024 Depression Screening Depression Scre ening [facility] Start: 08-20-2024 Fall Risk Screening Fall Risk Screen ing [facility] Start: 08-20-2024 Medicare Annual Well ness Visit Medicare Annual Wellness Visit [facility] Start: 08-20-2024 Tobacco Screening Tobacco Screening [facility] Start: 04-12-2024 End: 04-12-2024 Patient encounter procedure 04/12/2024 9:40 AM EDT Office Visit [facility] [address] [place] [address] Jairo Daley, BIOLOGY TUTOR-RUBBER GOODS ASSEMBLER [address] [place] [phone] [facility] Start: 02-12-2024 End: 02-12-2024 Patient encounter procedure 02/12/2024 4:40 PM EDT Procedure Visit [facility] [address] [facility] [address] [place] [id number] Cristobal White DPM [address] [facility] [address] [place] [address] [facility] Start: 01-07-2024 Tobacco Counseling Tobacco Counselin g [facility] Start: 12-18-2023 End: 12-18-2023 Clinical Support 12/18/2023 8:50 AM EST Clinical Support [facility] [address] [facility] [address] [place] [id number] Cristobal White DPM [address] [facility] [address] [place] [address] [facility] Start: 12-11-2023 End: 12-11-2023 Patient encounter procedure 12/11/2023 9:45 AM EST Office Visit [facility] [address] [place] [address] Jairo Daley, BIOLOGY TUTOR-RU[employer]ER GOODS ASSEMBLER [address] [place] [address] [facility] Start: 12-04-2023 End: 12-04-2023 Patient encounter procedure 12/04/2023 4:00 PM EST Office Visit [facility] [address] [facility] [address] [place] [address] Cristobal White DPM [address] [facility] [address] [place] [address] [facility] Start: 08-13-2023 Screening for malign ant neoplasm of breast Mammogram [facility] Start: 06-20-2023 COVID-19 Vaccine ( season) COVID-19 Vaccine () [facility] Start: 01-21-2023 End: 01-21-2023 Admission to same day surgery center 01/21/2023 Surgery IP Unit Jason Au MD [address], [address] [place] [address] ESWL EXTRACORPOREAL SHOCK WAVE LITHOTRIPSY [facility] Comment on above: ESWL EXTRACORPOREAL SHOCK WAVE LITHOTRIPSY Start: 01-21-2023 End: 01-21-2023 Lithotripsy xtrcorp shock wave ESWL EXTRACORPOREAL SHOCK WAVE LITHOTRIPSY Renal calculus 01/21/2023 7:30 AM EDT [facility] Start: 01-21-2023 Subsequent hospital visit by physician 01/21/2023 Hospital Encounter IP Unit Jason Au MD [address], [address] [place] [address] [facility] Start: 12-31-2022 End: 12-31-2022 Patient encounter procedure 12/31/2022 Appointment Radiology [facility] CT Scan Start: 12-12-2022 Annual Wellness Visi t (AWV) Annual Wellness Visit (AWV) [facility] Start: 2011 Screening for osteoporosis DEXA (modify frequency per FRAX score) [facility] Start: 2006 Administration of varicella zoster vaccine Zoster (Shingles) Vaccine (1 of 2) [facility] Start: 2006 Screening for malign ant neoplasm of breast Breast cancer screen [facility] Start: 2006 Shingles vaccine (1 of 2) Shingles vaccine (1 of 2) [facility] Start: 2001 Screening for malign ant neoplasm of colon [facility] Start: 1996 Lipid panel Lipids [facility] Start: 1991 Diabetes screen Diabetes screen [facility] Start: 1975 DTaP,Tdap and Td Vaccines (1 - Tdap) DTaP,Tdap and Td Vaccines (1 - Tdap) [facility] Start: 1975 DTaP/Tdap/Td vaccine (1 - Tdap) DTaP/Tdap/Td vaccine (1 - Tdap) [facility] Start: 1974 Hepatitis C screening Hepatitis C sc reen [facility] Start: 1968 Depression Screen Depression Screen [facility] Start: 06-05-1957 COVID-19 Vaccine (#1) COVID-19 Vacci ne (#1) [facility] Start: 1955 Screening for malign ant neoplasm of colon [facility] Start: 1956 Tobacco Counseling Tobacco Counselin g [facility] End: 12-12-2022 Culture, Urine [facility] Work Phone: Comment on above: 1 Occurrences starti ng 12/12/2022 until 12/12/2022 US Lower extremity - right US foot right Imaging Routine Other specified disorders of synovium, right ankle and foot Ordered: 12/04/2023 [facility] [employer] Work Phone: Comment on above: Ordered: 12/04/2023 Problems Active Problems Problem Classification Problem Date Documented Date Episodic/Chronic Alcohol-related disorders (2 sources) Alcohol dependence, uncomplicated; Translations: [Alcohol dependence, uncomplicated] Onset: 05-23-2023 Chronic Anxiety disorders (3 sources) Mixed anxiety and depressive disorder; Translations: [Anxiety disorder, unspecified] Onset: 04-12-2024 01-13-2024 Chronic Calculus of urinary tract (13 sources) Kidney stone; Translations: [Calculus of kidney] Onset: 08-11-2022 Episodic Cancer of cervix (1 source) Personal history of malignant neoplasm of cervix uteri; Translations: [PERS HX MALIG NEOPLASM CERV UTERI] Onset: 12-05-2022 Episodic Chronic obstructive pulmonary disease and bronchiectasis (9 sources) Emphysema, unspecified; Translations: [Chronic bronchitis] Onset: 04-01-2022 04-01-2022 Chronic Chronic obstructive pulmonary disease and bronchiectasis (1 source) Chronic obstructive pulmonary disease and bronchiectasis; Translations: [Other specified chronic obstructive pulmonary disease] Onset: 04-01-2022 Disorders usually diagnosed in infancy, childhood, or [...] Translations: [Mitral valve regurgitation] Onset: 06-14-2021 Chronic Joint disorders and dislocations; trauma-related (6 sources) Chondromalacia of left patella; Translations: [Chondromalacia patellae, left knee] Onset: 11-11-2022 11-11-2022 Chronic Miscellaneous mental health disorders (3 sources) Primary insomnia; Translations: [Primary insomnia] Onset: 08-20-2023 01-13-2024 Chronic Mood disorders (1 source) Depression Onset: 04-12-2024 Chronic Mood disorders (4 sources) Mood disorders; Translations: [Depression, unspecified] Onset: 08-20-2023 Resolved: 12-11-2023 08-20-2023 Mycoses (2 sources) Onychomycosis; Translations: [Tinea unguium] 12-04-2023 Episodic Osteoarthritis (6 sources) Unspecified osteoarthritis, unspecified site; Translations: [Arthritis of left knee] Onset: 06-21-2022 11-11-2022 Chronic Other aftercare (1 source) Other terminal carman (current) drug therapy; Translations: [OTH HALFWAY CURRENT DRUG THERAPY] Onset: 12-05-2022 Episodic Other connective tissue disease (6 sources) Fibromyalgia; Translations: [Fibromyalgia] Onset: 11-11-2022 11-11-2022 [...] 11-11-2022 11-11-2022 Chronic Other non-traumatic joint disorders (2 sources) Arthropathy of multiple joints; Translations: [Arthropathy, unspecified] 01-13-2024 Chronic Other non-traumatic joint disorders (1 source) Arthropathy, unspecified; Translations: [Arthropathy, unspecified] Onset: 04-12-2024 Chronic Other nutritional; endocrine; and metabolic disorders [...] to excess calories] Onset: 11-11-2022 Chronic Other screening for suspected conditions (not mental disorders or infectious disease) (3 sources) Encounter for screening for osteoporosis; Translations: [Encounter for screening mammogram for malignant neoplasm of breast] Onset: 08-18-2022 Episodic Other upper respiratory infections (1 source) Chronic [...] initial encounter] Onset: 03-11-2022 Episodic Thyroid disorders (8 sources) Graves' disease; Translations: [Thyrotoxicosis with diffuse [...] hematuria; Translations: [Gross hematuria] Onset: 12-12-2022 Episodic Immunizations and screening for infectious disease (2 sources) Encounter for screening for other viral diseases; Translations: [Encounter for screening for other viral diseases] Onset: 12-11-2023 Episodic Nonspecific chest pain (5 sources) Atypical chest [...] IN RIGHT ELBOW] Onset: 03-08-2022 Episodic Other upper respiratory infections (1 source) [...] (3 sources) Onset: 08-20-2023 Resolved: 12-15-2023 08-20-2023 Procedures Date Procedure Procedure Detail Performing Clinician Start: 12-11-2023 Adult depression scr eening assessment Isidra Vanesa [employer] Start: 08-20-2023 Adult depression scr eening assessment Adysan Sleek [employer] Start: 01-03-2023 Ecg routine ecg w/le ast 12 lds w/i&r Bo Black BIOLOGY TUTOR - [employer] ASSEMBLER Work Phone: Start: 01-03-2023 Basic metabolic pane l calcium total Bo Black BIOLOGY TUTOR - [employer] ASSEMBLER Work Phone: Start: 12-26-2022 Ct abdomen & pelvis w/o contrst 1/> body re Jason Au MD Work Phone: Start: 12-26-2022 Assay of urea nitrog en quantitative Jason Au MD Work Phone: Start: 12-12-2022 Urnls dip stick/tabl et reagent auto microscopy Jason Au MD Work Phone: Start: 08-13-2022 Mammography Adysan Sle ek [employer] Results Test Name Value Interpretation Reference Range Facility HCV Ab IA Qlon 12-11-2023 ANTI HCV W/PCR REFLX Reactive Abnormal NRCT [facility] Comment on above: Result Comment: Supplemental testing for HCV RNA by PCR has been ordered per CDC recommendations. Becmsm-zv-rpqolb ratio is >=1.00. Performed By: #### T LOIDA, [id number] #### [facility] ([id number]) [address] [place] [address], [address] [place] [address] HCV RNA PAULY+probe Qnon 12-11 HCV RNA QUANT PCR [id number] IU/mL Abnormal Undetected [facility] Comment on above: Result Comment: NOTE Result in log IU/mL is 7.28. ADDITIONAL INFORMATION The quantification range of this assay is 15 to 100,000,000 IU/mL (1.18 log to 8.00 log IU/mL). Testing was performed using the doimedes HCV test ([employer] Test Performed by: [facility] [address] [place] [address] Manager French: Raj Bhatti M.D. Ph.D.; CLIA# [id number] Performed By: #### T RAIZAR, 05370-0 #### [facility] ([id number]) [address] [place] [address], [address] [place] [address] THYROID PROFILEon 02-22-2024 Free T4 [Mass/Vol] 1.29 ng/dL Normal 0.61-1.60 [facility] Comment on above: Performed By: #### T HYR, 76078-1 #### [facility] ([id number]) [address] [place] [address] TSH 0.45 uIU/mL Low 0.49-4.67 [facility] Comment on above: Performed By: #### T HYR, 43607-5 #### [facility] ([id number]) [address] [place] [address] Office Visiton 11-17-2023 Follow-up visit [id number] Robyn Thorpe 1955 Provider Department Center 11/17/2023 Julisa-PRANAV ORTEZ Family History Problem Relation Age of Onset Diabetes Mother Coronary artery disease Mother Hypertension Mother Coronary artery disease Father Hypertension Father Other Father Coronary artery disease Brother Family Status - Relation Status Age at Mother Father Brother Level of Service:57299 [place] OFFICE/OUTPATIENT ESTABLISHED LOW MDM 20 MIN [facility] Orders Onlyon 11-17-2023 Orders Only [id number] Robyn Thorpe 1955 Provider Department Center 11/17/2023 PAT BAL GEE Alejandro Family History Problem Relation Age of Onset Diabetes Mother Coronary artery disease Mother Hypertension Mother Coronary artery disease Father Hypertension Father Other Father Coronary artery disease Brother Family Status - Relation Status Age at Mother Father Brother [facility] 36on 07-03-2023 37 Patient stopped by the office today c/o cough with lisinopril. Can we switch her to losartan? [facility] Orders Onlyon 06-25-2023 Orders Only [id number] Robyn Thorpe 1955 Provider Department Center 06/25/2023 VERONICA BELLO Family History Problem Relation Age of Onset Diabetes Mother Coronary artery disease Mother Hypertension Mother Coronary artery disease Father Hypertension Father Other Father Coronary artery disease Brother Family Status - Relation Status Age at Mother Father Brother [facility] 3706-10-2023 37 Increase lisinopril to 5 mg daily ( take 2 of the 2.5 mg tabs until the bottle is empty and then next bottle will be the 5 mg tabs) Have blood checked in 1 week- to check kidney function and electrolytes Continue all other meds [facility] Office Visiton 06-10-2023 Follow-up visit [id number] Robyn Thorpe 1955 F Date Provider Department Center 06/10/2023 VERONICA BELLO GEE [facility] Family History Problem Relation Age of Onset Diabetes Mother Coronary artery disease Mother Hypertension Mother Coronary artery disease Father Hypertension Father Other Father Coronary artery disease Brother Family Status - Relation Status Age at Mother Father Brother Level of Service:96070 [place] OFFICE/OUTPATIENT ESTABLISHED MOD MDM 30-39 MIN Reason for Visit and Comments: Follow-up [[id number]] [facility] Telephoneon 06-10-2023 Telephone [id number] Robyn Thorpe 1955 F Date Provider Department Center 06/10/2023 PAT BAL GEE Alejandro Family History Problem Relation Age of Onset Diabetes Mother Coronary artery disease Mother Hypertension Mother Coronary artery disease Father Hypertension Father Other Father Coronary artery disease Brother Family Status - Relation Status Age at Mother Father Brother [facility] Orders Onlyon 06-02-2023 Orders Only [id number] Robyn Thorpe 1955 F Date Provider Department Center 06/02/2023 VERONICA BELLO GEE [facility] Family History Problem Relation Age of Onset Diabetes Mother Coronary artery disease Mother Hypertension Mother Coronary artery disease Father Hypertension Father Other Father Coronary artery disease Brother Family Status - Relation Status Age at Mother Father Brother [facility] 3605-30-2023 36 Aline- does she have a f/U scheduled? [facility] 3705-23-2023 38 Start Spironolactone/Aldac tone 1 tab daily in the morning for high blood pressure and water retention Please have blood drawn next week to check kidney function and electrolytes. Continue to take all other medications [facility] Office Visiton 05-23-2023 Follow-up visit [id number] Robyn Thorpe 1955 F Date Provider Department Center 05/23/2023 VERONICA BELLO GEE Alejandro Family History Problem Relation Age of Onset Diabetes Mother Coronary artery disease Mother Hypertension Mother Coronary artery disease Father Hypertension Father Other Father Coronary artery disease Brother Family Status - Relation Status Age at Mother Father Brother Level of Service:42314 [place] OFFICE/OUTPATIENT ESTABLISHED MOD MDM 30-39 MIN Normal [facility] XR ABDOMEN (KUB) (SINGLE AP VIEW)on [...] Олег Acosta DO 04/27/23 Final result Normal [facility] OPERATIVE REPORTon OPERATIVE REPORT [address] [id number] OPERATIVE REPORT PATIENT NAME: ROBYN THORPE : 1955 MED REC NO: [id number] ROOM: ACCOUNT NO: [id number] ADMIT DATE: 01/21/2023 PROVIDER: Jason Au DATE OF PROCEDURE: 01/21/2023 SURGEON: Dr. Jason Au. PEWTER FABRICATOR: None. PREOPERATIVE DIAGNOSIS: Right ureteral calculus. POSTOPERATIVE [...] obtained. [facility], where she [...] awoken from general anesthesia, [facility], and taken to the PACU in satisfactory condition by Nursing and Anesthesia Teams. PLAN: The patient will be discharged home per PACU criterion and follow up with us in three months with a repeat KUB. JASON AU [id number] Doc#: [id number] CC: Normal [facility] Basic Metabolic Panelon 12-18 Anion gap [Moles/Vol] 8 mmol/L Low 9 - 17 mmol/L [facility] Calcium [Mass/Vol] 9.4 mg/dL 8.6 - 10. 4 mg/dL [facility] Chloride [Moles/Vol] 108 mmol/L High 98 - 107 mmol/L [facility] CO2 [Moles/Vol] 25 mmol/L 20 - 31 mmol/L [facility] Creatinine [Mass/Vol] 0.68 mg/dL 0.50 - 0.90 mg/dL [facility] GFR/1.73 sq M.predicted MDRD (S/P/Bld) [Vol rate/Area] - PINF [facility] Comment on above: These results are not intended for use in patients <18 years of age. eGFR results are calculated without a race factor using the 202 CKD-EPI equation. Careful clinical correlation is recommended, particularly when comparing to results calculated using previous equations. The CKD-EPI equation is less accurate in patients with extremes of muscle mass, extra-renal metabolism of creatine, excessive creatine ingestion, or following therapy that affects renal tubular secretion. Glucose [Mass/Vol] 109 mg/dL High 70 - 99 mg/dL [facility] Potassium [Moles/Vol] 3.6 mmol/L Low 3.7 - 5.3 mmol/L [facility] Sodium [Moles/Vol] 141 mmol/L 135 - 144 mmol/L [facility] Urea nitrogen [Mass/Vol] 20 mg/dL 8 - 23 mg/dL [facility] Urea nitrogen/Creatinine (Bld) [Mass ratio] 29 High 9 - 20 [facility] Basic Metabolic Profon 01-03 Anion gap [Moles/Vol] 8 mmol/L Low 9-17 [facility] Comment on above: Performed By: #### B KARINA, CDP #### [facility] [address] [place] [address] Manager French: Xavier Cuevas MD BUN/CRE Ratio 29 High 9-20 [facility] Comment on above: Performed By: #### B KARINA, CDP #### [facility] [address] [place] [address] Manager French: Xavier Cuevas MD Calcium [Mass/Vol] 9.4 mg/dL Normal 8.6-10.4 [facility] Comment on above: Performed By: #### B KARINA, CDP #### [facility] [address] [place] [address] Manager French: Xavier Cuevas MD Chloride [Moles/Vol] 108 mmol/L High 98-107 [facility] Comment on above: Performed By: #### B KARINA, CDP #### [facility] [address] [place] [address] Manager French: Xavier Cuevas MD CO2 [Moles/Vol] 25 mmol/L Normal 20-31 [facility] Comment on above: Performed By: #### B KARINA, CDP #### [facility] [address] [place] [address] Manager French: Xavier Cuevas MD Creatinine [Mass/Vol] 0.68 mg/dL Normal 0.50-0.90 [facility] Comment on above: Performed By: #### B KARINA, CDP #### [facility] [address] [place] [address] Manager French: Xavier Cuevas MD GFR/1.73 sq M.predicted among non-blacks MDRD (S/P/Bld) [Vol rate/Area] mL/min/{1.73_m2} Normal >60 [facility] Comment on above: Result Comment: These results [...] Performed By: #### B KARINA, CDP #### [facility] [address] [place] [address] [place] [address] Manager French: Xavier Cuevas MD Glucose [Mass/Vol] 109 mg/dL High 70-99 [facility] Comment on above: Performed By: #### B KARINA, CDP #### [facility] [address] [place] [address] Manager French: Xavier Cuevas MD Potassium [Moles/Vol] 3.6 mmol/L Low 3.7-5.3 [facility] Comment on above: Performed By: #### B KARINA, CDP #### [facility] [address] [place] [address] Manager French: Xavier Cuevas MD Sodium [Moles/Vol] 141 mmol/L Normal 135-144 [facility] Comment on above: Performed By: #### B KARINA, CDP #### [facility] [address] [place] [address] Manager French: Xavier Cuevas MD Urea nitrogen [Mass/Vol] 20 mg/dL Normal 8-23 [facility] Comment on above: Performed By: #### B KARINA, CDP #### [facility] [address] [place] [address] Manager French: Xavier Cuevas MD CBC with Auto Differentialon 01-03-2023 Absolute Eos # 0.20 [facility] Absolute Immature Granulocyte 0.03 [facility] Absolute Lymph # 1.05 Low [facility] Absolute Hancock # 0.78 [facility] Basophils (Bld) [#/Vol] 0.04 10*3/uL [facility] Basophils/100 WBC (Bld) 1 % 0 - 2 % [facility] Eosinophils/100 WBC (Bld) 3 % 1 - 4 % [facility] Hematocrit (Bld) [Volume fraction] 43.3 % 36.3 - 47.1 % [facility] Hemoglobin (Bld) [Mass/Vol] 14.3 g/dL 11.9 - 15.1 g/dL [facility] Immature granulocytes/100 WBC (Bld) 1 % High 0 [facility] Lymphocytes/100 WBC (Bld) 16 % Low 24 - 43 % [facility] MCH (RBC) [Entitic mass] 28.9 pg 25.2 - 33.5 pg [facility] MCHC (RBC) [Mass/Vol] 33.0 g/dL 28.4 - 34.8 g/dL [facility] MCV (RBC) [Entitic vol] 87.5 fL 82.6 - 102.9 fL [facility] Monocytes/100 WBC (Bld) 12 % 3 - 12 % [facility] NRBC Automated 0.0 0.0 per 100 WBC [facility] Platelet distribution width (Bld) [Ratio] 13.2 % 11.8 - 14.4 % [facility] Platelet mean volume (Bld) [Entitic vol] 10.9 fL 8.1 - 13.5 fL [facility] Platelets (Bld) [#/Vol] 227 10*3/uL [facility] RBC (Bld) [#/Vol] 4.95 10*6/uL 3.95 - 5.1 1 m/uL [facility] Segmented neutrophils/100 WBC (Bld) 67 % High 36 - 65 % [facility] Segs Absolute 4.37 [facility] WBC (Bld) [#/Vol] 6.5 10*3/uL [facility] CBC with Diffon 01-03-2023 Abs. Basophil 0.04 k/uL Normal 0.00-0.20 [facility] Comment on above: Performed By: #### B MP, CDP #### [facility] [address] [place] [address] [place] [address] Manager French: Xavier Cuevas MD Abs.Imm.Granulocyte 0.03 k/uL Normal 0.00-0.30 [facility] Comment on above: Performed By: #### B KARINA, CDP #### [address] [place] [address] Manager French: Xavier Cuevas MD Abs.Neutrophil (Seg) 4.37 k/uL Normal 1.50-8.10 [facility] Comment on above: Performed By: #### B KARINA, CDP #### [address] [place] [address] Manager French: Xavier Cuevas MD Basophils/100 WBC (Bld) 1 % Normal 0-2 [facility] Comment on above: Performed By: #### B KARINA, CDP #### [address] [place] [address] Manager French: Xavier Cuevas MD Eosinophils (Bld) [#/Vol] 0.20 10*3/uL Normal 0.00-0.44 [facility] Comment on above: Performed By: #### B MP, CDP #### [address] [place], [place] [id number] Manager French: Xavier Cuevas MD Eosinophils/100 WBC (Bld) 3 % Normal 1-4 [facility] Comment on above: Performed By: #### B MP, CDP #### [facility] [address] [place], [place] [id number] Manager French: Xavier Cuevas MD Erythrocyte distribution width (RBC) [Ratio] 13.2 % Normal 11.8-14.4 [facility] Comment on above: Performed By: #### B MP, CDP #### [address] [place], [place] [id number] Manager French: Xavier Cuevas MD Hematocrit (Bld) [Volume fraction] 43.3 % Normal 36.3-47.1 [facility] Comment on above: Performed By: #### B KARINA, CDP #### [address] [place], [place] [id number] Manager French: Xavier Cuevas MD Hemoglobin (Bld) [Mass/Vol] 14.3 g/dL Normal 11.9-15.1 [facility] Comment on above: Performed By: #### B KARINA, CDP #### [facility] [address] [place] [address] Dr[place], [place] [id number] Manager French: Xavier Cuevas MD Immature granulocytes/100 WBC (Bld) 1 % High 0 [facility] Comment on above: Performed By: #### B MP, CDP #### [address] [place] [address] Manager French: Xavier Cuevas MD Lymphocytes (Bld) [#/Vol] 1.05 10*3/uL Low 1.10-3.70 [facility] Comment on above: Performed By: #### B MP, CDP #### [facility] [address] [place] [address] Dr[place], [place] [id number] Manager French: Xavier Cuevas MD Lymphocytes/100 WBC (Bld) 16 % Low 24-43 [facility] Comment on above: Performed By: #### B MP, CDP #### [facility] [address] [place] [address] Dr[place], [place] [phone] Manager French: Xavier Cuevas MD MCH (RBC) [Entitic mass] 28.9 pg Normal 25.2-33.5 [facility] Comment on above: Performed By: #### B MP, CDP #### [address] [place] [address] Manager French: Xavier Cuevas MD MCHC (RBC) [Mass/Vol] 33.0 g/dL Normal 28.4-34.8 [facility] Comment on above: Performed By: #### B MP, CDP #### [address] [place] [address] Manager French: Xavier Cuevas MD MCV (RBC) [Entitic vol] 87.5 fL Normal 82.6-102.9 [facility] Comment on above: Performed By: #### B KARINA, CDP #### [address] [place], [place] [id number] Manager French: Xavier Cuevas MD Monocytes (Bld) [#/Vol] 0.78 10*3/uL Normal 0.10-1.20 [facility] Comment on above: Performed By: #### B KARINA, CDP #### [address] [place], [place] [id number] Manager French: Xavier Cuevas MD Monocytes/100 WBC (Bld) 12 % Normal 3-12 [facility] Comment on above: Performed By: #### B MP, CDP #### [facility] [address] [place] [address] Dr[place], [place] [id number] Manager French: Xavier Cuevas MD Neutrophil (Seg) 67 % High 36-65 [facility] Comment on above: Performed By: #### B MP, CDP #### [facility] [address] [place] [address] Dr[place], [place] [id number] Manager French: Xavier Cuevas MD NRBC Automated 0.0 per 100 WBC Normal 0.0 [facility] Comment on above: Performed By: #### B MP, CDP #### [facility] [address] [place], [place] [id number] Manager French: Xavier Cuevas MD Platelet mean volume (Bld) [Entitic vol] 10.9 fL Normal 8.1-13.5 [facility] Comment on above: Performed By: #### B MP, CDP #### [facility] [address] [place], [place] 1922383 Manager French: Xavier Cuevas MD Platelets (Bld) [#/Vol] 227 10*3/uL Normal 138-453 [facility] Comment on above: Performed By: #### B KARINA, CDP #### [facility] [address] [place] [address] Manager French: Xavier Cuevas MD RBC (Bld) [#/Vol] 4.95 10*6/uL Normal 3.95-5.11 [facility] Comment on above: Performed By: #### B KARINA, CDP #### [facility] [address] [place] [address] Manager French: Xavier Cuevas MD WBC (Bld) [#/Vol] 6.5 10*3/uL Normal 3.5-11.3 [facility] Comment on above: Performed By: #### B KARINA, CDP #### [facility] [address] [place], [place] [id number] Manager French: Xavier Cuevas MD EKG 12 LeadOrdered By: Enrique Quezada on 01-03-2023 Atrial Rate 64 BPM [employer] [facility] Phone: P Liberty 75 degrees [employer] [facility] Phone: P-R Interval 146 ms [employer] [facility] Phone: Q-T Interval 480 ms [employer] [facility] Phone: QRS Duration 130 ms [employer] Work Phone: QTc Calculation (Bazett) 495 ms [employer] Work Phone: R Liberty 3 degrees [employer] Work Phone: T Liberty 31 degrees [employer] Work Phone: Ventricular Rate 64 BPM [employer] CLAR[employer] Work Phone: [employer] Work Phone: EKG 12 Leadon 01-03-2023 Normal sinus rhythm Right bundle branch block Abnormal ECG No previous ECGs available Confirmed by YANELIS QUEZADA ([id number]) on 01/03/2023 11:52:02 PM [facility] RADIOLOGY Yanelis Quezada MD - 01/03/2023 Normal sinus rhythm Right bundle branch block Abnormal ECG No previous ECGs available Confirmed by YANELIS QUEZADA ([id number]) on 01/03/2023 11:52:02 PM [employer] Work Phone: No Panel Informationon 01-03 Interpretation and review of laboratory results Abnormal Xi3 BUN & Creatinineon 3 Creatinine [Mass/Vol] 0.78 mg/dL 0.50 - 0.90 mg/dL [employer] GFR/1.73 sq M.predicted MDRD (S/P/Bld) [Vol rate/Area] - PINF [employer] Comment on above: These results are not [...] [Mass/Vol] 22 mg/dL 8 - 23 mg/dL Xi3 BUN + Creatinineon 3 Creatinine [Mass/Vol] 0.78 mg/dL Normal 0.50-0.90 [facility] Comment on above: Performed By: #### B UNCRT #### [facility] [address] [place] [address] Manager French: Xavier Cuevas MD GFR/1.73 sq M.predicted among non-blacks MDRD (S/P/Bld) [Vol rate/Area] mL/min/{1.73_m2} Normal >60 [facility] Comment on above: Result Comment: These results [...] secretion. Performed By: #### B UNCRT #### [facility] [address] [place] [address] Manager French: Xavier Cuevas MD Urea nitrogen [Mass/Vol] 22 mg/dL Normal 8-23 [facility] Comment on above: Performed By: #### B UNCRT #### [facility] [address] [place] [address] Manager French: Xavier Cuevas MD CT UROGRAMon 12-26-2022 CT [...] Katelyn Aceves MD 12/26/22 Final result Normal [facility] Radiology Study observation (narrative) [employer]UAL[employer]ERTO BAUTISTAMashalot [facility] [employer] Work Phone: 1. Bilateral nonobstructing nephroliths larger on the right side of 6.5 mm. No ureteric obstruction. 2. Mild hepatic steatosis. Granulomas in liver and spleen. 3. Atherosclerotic disease. 4. Postsurgical changes lower lumbar spine. Other findings as above. [facility] RIS CONSOLIDATED EXAMINATION: CT UROGRAM 12/26/2022 1:23 pm TECHNIQUE: [...] acute osseous or subcutaneous soft tissue abnormality. [facility] RIS Katelyn Vasquez MD - 12/26/2022 EXAMINATION: CT UROGRAM 12/26/2022 [...] lower lumbar spine. Other findings as above. [facility] [employer] Phone: CT UROGRAMOrdered By: Katelyn Chao all on 12-26-2022 [facility] [employer] Phone: Cult,Urineon 12-13-2022 Cult,Urine Specimen Description .CLEAN CATCH URINE Culture NO SIGNIFICANT GROWTH Report Status FINAL 12/13/2022 Normal [facility] Comment on above: Performed By: #### U RC #### [address] [address] Manager French: Richard Farias MD [address] [place] [address] Manager French: Xavier Cuevas MD Urinalysis w/ Microon 2022 Bacteria 2+ Abnormal NONE [facility] Comment on above: Performed By: #### U AMIC #### [address] [place] [address] Manager French: Xavier Cuevas MD Bilirubin, SemiQt,Ur Negative Normal NEG [facility] Comment on above: Performed By: #### U AMIC #### [address] [place] [address] Manager French: Xavier Cuevas MD Blood, Urine TRACE Abnormal NEG [facility] Comment on above: Performed By: #### U AMIC #### [address] [place] [address] Manager French: Xavier Cuevas MD Clarity (U) Clear Normal CLEAR [facility] Comment on above: Performed By: #### U AMIC #### [address] [place] [address] Manager French: Xavier Cuevas MD Color (U) Yellow Normal YEL [facility] Comment on above: Performed By: #### U AMIC #### [facility] [address] [place], [place] [id number] Manager French: Xavier Cuevas MD Epithelial cells LM Ql (Urine sed) 2 TO 5 Normal 0-25 [facility] Comment on above: Performed By: #### U AMIC #### [facility] [address] [place] [address] Dr[place], [place] [id number] Manager French: Xavier Cuevas MD Glucose Ql (U) Negative Normal NEG [facility] Comment on above: Performed By: #### U AMIC #### [facility] [address] [place] [address] Dr[place], [place] [id number] Manager French: Xavier Cuevas MD Ketones Ql (U) TRACE Abnormal NEG [facility] Comment on above: Performed By: #### U AMIC #### [facility] [address] [place] [address] Dr[place], [place] [id number] Manager French: Xavier Cuevas MD Leukocyte esterase Test strip Ql (U) Negative Normal NEG [facility] Comment on above: Performed By: #### U AMIC #### [facility] [address] [place] [address] Dr[place], [place] [id number] Manager French: Xavier Cuevas MD Mucus Strands 1+ Abnormal NONE [facility] Comment on above: Performed By: #### U AMIC #### [facility] [address] [place] [address] Dr[place], [place] [id number] Manager French: Xavier Cuevas MD Nitrite,Ur Negative Normal NEG [facility] Comment on above: Performed By: #### U AMIC #### [facility] [address] [place] [address] Dr[place], [place] [id number] Manager French: Xavier Cuevas MD PH,Ur 6.0 Normal 5.0-9.0 [facility] Comment on above: Performed By: #### U AMIC #### [facility] [address] [place], [place] [phone] Manager French: Xavier Cuevas MD Protein Ql (U) 1+ Abnormal NEG [facility] Comment on above: Performed By: #### U AMIC #### [facility] [address] [place], [place] [id number] Manager French: Xavier Cuevas MD Spec. Indiahoma,Ur 1.025 High 1.010-1.020 [facility] Comment on above: Performed By: #### U AMIC #### [facility] [address] [place], [place] [id number] Manager French: Xavier Cuevas MD Urine RBC's 5 TO 10 Normal 0-2 [facility] Comment on above: Performed By: #### U AMIC #### [facility] [address] [place], [place] [phone] Manager French: Xavier Cuevas MD Urine WBC's 0 TO 2 Normal 0-5 [facility] Comment on above: Performed By: #### U AMIC #### [facility] [address] [place] [address] Dr[place], [place] [id number] Manager French: Xavier Cuevas MD Urobilinogen,Ur Normal Normal NORM [facility] Comment on above: Performed By: #### U AMIC #### [facility] [address] [place], [place] [phone] Manager French: Xavier Cuevas MD Urinalysis with Microscopico n 12-12-2022 Bacteria, UA 2+ Abnormal None [facility] Bilirubin Urine Negative NEGATIVE [facility] [employer] Color, UA Yellow Yellow [facility] Epithelial Cells UA 2 TO 5 [facility] Glucose Auto test strip (U) [Mass/Vol] Negative NEGATIVE [facility] Interpretation and review of laboratory results Abnormal [facility] Ketones (U) [Mass/Vol] TRACE Abnormal NEGATIVE [facility] Leukocyte esterase Auto test strip Ql (U) Negative NEGATIVE [facility] Mucus, UA 1+ Abnormal None [facility] Nitrite Auto test strip Ql (U) Negative NEGATIVE [facility] Protein (U) [Mass/Vol] 6.0 mg/dL 5.0 - 9.0 [facility] Protein (U) [Mass/Vol] 1+ Abnormal NEGATIVE [facility] RBC clumps Auto (Urine sed) [#/Area] 5 TO 10 [facility] Specific [place], UA 1.025 High 1.010 - 1.020 [facility] Turbidity UA Clear Clear [facility] Urine Hgb TRACE Abnormal NEGATIVE [facility] Urobilinogen, Urine Normal Normal [facility] WBC, UA 0 TO 2 [facility] XR RIBS LT PA Sophia 3 XR RIBS LT PA CH EXAM: XR RIBS LT PA CH HISTORY: Rib pain COMPARISON: 05/28/2022 TECHNIQUE: Four views of the left ribs. FINDINGS: No rib fracture indentified. The lungs are clear. IMPRESSION: 1. No acute rib fracture identified. Electronically authenticated by: JANEEN POOLE Date: 2022-12-03 10:28 Normal [facility] MRI BRAIN WO W CONon 023 [...] YANELIS ENGEL Date: 2022-10-22 13:55 Normal [facility] CREATININEon 10-21-2022 Creatinine [Mass/Vol] 0.94 mg/dL Normal 0.55-1.02 [facility] Comment on above: Performed By: #### C HUGH ####[facility] [address]et[address]ozs[address] [place] [id number]. Tapan Gordon EGFR-AF PRYDEINIG >60 Normal >=60 [facility] Comment on above: Performed By: #### C HUGH ####[facility] Ivkntmzsgx[address] [place] [id number]. Tapan Gordon EGFR-NON AF PRYDEINIG =60 Normal >=60 [facility] Comment on above: Performed By: #### C HUGH ####[facility] [address]rgsrtu[address] [place] [id number]. Tapan Gordon MG MAMM SCREEN 3D NICKOLAS CADon 08-13-2022 MG MAMM SCREEN 3D NICKOLAS CAD Patient: ROBYN THORPE Exam Date: 08/13/2022 : 1955 Gender:F Ordering : JAIRO DALEY Admission #: [id number] Family : Order #: [id number] CLICK HERE TO VIEW EXAM RADIOLOGY REPORT [...] kidney cancer at age 65. LOCATION: [facility] BREAST COMPOSITION: Scattered areas fibroglandular density. [...] Gonzales MD on 08/14/2022 at 07:58 Normal [facility] XR DEXA BONE DENSITYon 08-13 XR [...] - Moderate Fracture Risk Electronically authenticated by: YANEILS ENGEL Date: 2022-08-13 16:09 Normal [facility] CT ABD/PELVIS WO CONon 08-07 CT [...] by: YANELIS ENGEL Date: 2022-08-07 18:50 Normal [facility] ECHOCARDIO M/2D COMPLETEon 0 06-26-2022 ECHOCARDIO M/2D COMPLETE Patient: ROBYN THORPE Exam Date: 06/26/2022 : 1955 Gender:F Ordering : DR PRANAV ORTEZ M.D. Admission #: [id number] Family : JAIRO DALEY Order #: [id number] CLICK HERE TO VIEW EXAM ECHOCARDIOGRAM REPORT [...] M.D. on 06/26/2022 at 18:22 Normal [facility] AMYLASEon 06-19-2022 Amylase [Catalytic activity/Vol] 48 U/L Normal 25-115 [facility] Comment on above: Performed By: #### C YASH COLLINS LIPA ####[facility] [address]uiyqdwvx[address] [place] [id number]. Tapan Gordon CBC AUTO DIFFon 06-19-2022 BASO # 0.0 103/ul Normal 0.0-0.1 [facility] Comment on above: Performed By: #### C BC ####[facility] Gtpqnfzjtk[address] [place] [id number]. Tapan Gordon Basophils/100 WBC (Bld) 0.5 % Normal 0.2-2.0 [facility] Comment on above: Performed By: #### C BC ####[facility] [address]evjlnitx[address] [place] [id number]. Tapan Gordon EO # 0.2 103/ul Normal 0.0-0.7 [facility] Comment on above: Performed By: #### C BC ####[facility] Ixttegxfqv5398 [place] [id number]. Tapan Gordon Eosinophils/100 WBC (Bld) 2.4 % Normal 0.9-7.0 [facility] Comment on above: Performed By: #### C BC ####[facility] W[address]ovzx[address] [place] [address]Dr. Tapna Gordon Erythrocyte distribution width (RBC) [Ratio] 13.0 % Normal 11.0-15.0 [facility] Comment on above: Performed By: #### C BC ####[facility] [address] [place], [place] [address]Dr. Tapan Gordon Hematocrit (Bld) [Volume fraction] 43.6 % Normal 36.0-48.0 [facility] Comment on above: Performed By: #### C BC ####[facility] Y[address]ik[address] [place], [place] [address]Dr. Tapan Gordon Hemoglobin (Bld) [Mass/Vol] 14.6 g/dL Normal 12.0-16.0 [facility] Comment on above: Performed By: #### C BC ####[facility] K[address]om[address] [place], [place] [address]Dr. Tapan Gordon IG # 0.02 10e3/ul Normal 0.00-0.03 [facility] Comment on above: Performed By: #### C BC ####[facility] W[address]wjldqr[address] [place] [address]Dr. Tapan Gordon IG % 0.3 % Normal 0.0-0.5 [facility] Comment on above: Performed By: #### C BC ####[facility] [address] [place], [place] [address]Dr. Tapan Gordon LYMPH # 1.5 103/ul Normal 1.2-3.8 [facility] Comment on above: Performed By: #### C BC ####[facility] [address]xf[address] [place], [place] [address]Dr. Tapan Gordon Lymphocytes/100 WBC (Bld) 23.4 % Normal 20.5-60.0 [facility] Comment on above: Performed By: #### C BC ####[facility] Oyk[address]upg[address] [place] [id number]. Tapan Gordon MANUAL DIFF REQ NO Normal [facility] Comment on above: Performed By: #### C BC ####[facility] Wirkkmqkjy[address] [place] [id number]. Tapan Gordon MCH (RBC) [Entitic mass] 29.5 pg Normal 26.7-34.0 [facility] Comment on above: Performed By: #### C BC ####[facility] [address]wibwrj[address] [place], [place] [address]Dr. Tapan Gordon MCHC (RBC) [Mass/Vol] 33.5 g/dL Normal 29.9-35.2 [facility] Comment on above: Performed By: #### C BC ####[facility] [address] [place], [place] [address]Dr. Tapan Gordon MCV (RBC) [Entitic vol] 88.1 fL Normal 81.0-99.0 [facility] Comment on above: Performed By: #### C BC ####[facility] [address] [place], [place] [address]Dr. Tapan Gordon MONO # 0.6 103/ul Normal 0.3-0.8 [facility] Comment on above: Performed By: #### C BC ####[facility] [address] [place], [place] [address]Dr. Tapan Evan Monocytes/100 WBC (Bld) 9.8 % Normal 1.7-12.0 [facility] Comment on above: Performed By: #### C BC ####[facility] [address] [place], [place] [id number]. Tapan Gordon NEUT # 4.0 103/ul Normal 1.4-6.5 [facility] Comment on above: Performed By: #### C BC ####[facility] [address] [place], [place] [address]Dr. Tapan Gordon Neutrophils/100 WBC (Bld) 63.6 % Normal 43.0-75.0 [facility] Comment on above: Performed By: #### C BC ####[facility] [address] [place], [place] [address]Gc. Tapan Gordon Platelet mean volume (Bld) [Entitic vol] 10.3 fL Normal 9.5-13.5 [facility] Comment on above: Performed By: #### C BC ####[facility] [address]efvxxe30[address] [place], [place] [address]Va. Tapan Gordon PLT 258 103/ul Normal 150-450 [facility] Comment on above: Performed By: #### C BC ####[facility] Tgbremijyj[address] [place], [place] [address]Vl. Tapan Gordon RBC 4.95 106/ul Normal 4.20-5.40 [facility] Comment on above: Performed By: #### C BC ####[facility] Yeximqmaei[address] [place], [place] [address]Tb. Tapan Gordon WBC 6.3 103/ul Normal 4.0-11.0 [facility] Comment on above: Performed By: #### C BC ####[facility] [address]ts[address] [place], [place] [address]Qv. T[address] CT ABD/PELVIS WO CONon 06-19 CT ABD/PELVIS [...] BRAULIO LASSITER Date: 2022-06-19 10:13 Normal [facility] ER URINE PROFILEon 2 Bilirubin Ql (U) Negative Normal NEGATIVE [facility] Comment on above: Performed By: #### U MICRO, ERUR #### [facility] [address] [place] [address] Dr. Tapan Gordon Clarity (U) CLEAR Normal CLEAR [facility] Comment on above: Performed By: #### U MICRO, ERUR #### [facility] [address] [place] [address] Dr. Tapan Gordon Color (U) LT. YELLOW Normal YELLOW [facility] Comment on above: Performed By: #### U MICRO, ERUR #### [facility] [address] [place] [address] Dr. Tapan Gordon ERUAHD A micrscopic examination will be performed if indicated. Normal [facility] Comment on above: Performed By: #### U MICRO, ERUR #### [facility] [address] [place] [address] Dr. Tapan Gordon Glucose Ql (U) Negative Normal NEGATIVE [facility] Comment on above: Performed By: #### U MICRO, ERUR #### [facility] [address] [place] [address] [address] Tapan Gordon Hemoglobin Ql (U) LARGE Abnormal NEGATIVE [facility] Comment on above: Performed By: #### U MICRO, ERUR #### [facility] [address] [place] [address] Dr. Tapan Gordon Ketones Ql (U) Negative Normal NEGATIVE [facility] Comment on above: Performed By: #### U MICRO, ERUR #### [facility] [address] [place] [address] Dr. Tapan Gordon LEUKOCYTES Negative Normal NEGATIVE [facility] Comment on above: Performed By: #### U MICRO, ERUR #### [facility] [address] [place] [address] [address] Tapan Gordon Nitrite Ql (U) Negative Normal NEGATIVE [facility] Comment on above: Performed By: #### U MICRO, ERUR #### [facility] [address] [place] [address] [address] Tapan Gordon pH (U) 7.0 [pH] Normal 5-9 [facility] Comment on above: Performed By: #### U MICRO, ERUR #### [facility] [address] [place] [address] [address] Tapan Gordon SPEC GRAVITY 1.015 Normal 1.005-<=1.025 [facility] Comment on above: Performed By: #### U MICRO, ERUR #### [facility] [address] [place] [address] [address] Tapan Gordon UA PROTEIN TRACE Normal NEGATIVE/ TRACE [facility] Comment on above: Performed By: #### U MICRO, ERUR #### [facility] [address] [place] [address] [address] Tapan Gordon UR MICRO IND INDICATED Normal [facility] Comment on above: Performed By: #### U MICRO, ERUR #### [facility] [address] [address] [address] Tapan Gordon Urobilinogen Qn (U) 2.0 {Aleida'U}/dL Abnormal 0.2 - 1. 0 [facility] Comment on above: Performed By: #### U MICRO, ERUR #### [facility] [address] [place] [address] [address] Tapan Gordon LIPASEon 06-19-2022 Lipase [Catalytic activity/Vol] 182.0 U/L Normal 73.0-393.0 [facility] Comment on above: Performed By: #### C MP, YASH, LIPA ####[facility] [address] [place] [address]Dr. Tapan Gordon OCC BLD IMMUNO SCREENon 05-22 OCCULT BLOOD Negative Normal NEGATIVE [facility] Comment on above: Performed By: #### O BSCRN ####[facility] [address] [place] [address]Dr. Tapan Gordon PROF 14(COMP METB)on 022 Albumin [Mass/Vol] 3.5 g/dL Normal 3.4-5.0 [facility] Comment on above: Performed By: #### C YASH COLLINS LIPA ####[facility] [address] [place] [address]Dr. Tapan Gordon Albumin/Globulin [Mass ratio] 1.0 {ratio} Normal [facility] Comment on above: Performed By: #### C YASH COLLINS LIPA ####[facility] [address] [place] [address]Dr. Tapan Gordon ALP [Catalytic activity/Vol] 76 U/L Normal 46-116 [facility] Comment on above: Performed By: #### C KARINA YASH, LIPA ####[facility] [address] [place] [address]Dr. Tapan Gordon ALT [Catalytic activity/Vol] 64 U/L Critically high 14-59 [facility] Comment on above: Performed By: #### C KARINA YASH, LIPA ####[facility] [address] [place] [address]Dr. Tapan Gordon Anion gap [Moles/Vol] 11.2 mmol/L Normal [facility] Comment on above: Performed By: #### C KARINA YASH, LIPA ####[facility] [address] [place] [address]Dr. Tapan Gordon AST [Catalytic activity/Vol] 38 U/L Critically high 15-37 [facility] Comment on above: Performed By: #### C YASH COLLINS LIPA ####[facility] [address]recs[address] [place] [address]Dr. Tapan Gordon Bilirubin [Mass/Vol] 0.7 mg/dL Normal 0.2-1.0 [facility] Comment on above: Performed By: #### C KARINA YASH, LIPA ####[facility] [address] [place] [address]Dr. Tapan Gordon Calcium [Mass/Vol] 8.7 mg/dL Normal 8.5-10.1 [facility] Comment on above: Performed By: #### C MP, YAHS, LIPA ####[facility] E[address]far[address] [place] [address]Dr. Tapan Gordon Chloride [Moles/Vol] 104 mmol/L Normal 98-107 [facility] Comment on above: Performed By: #### C MP, YASH, LIPA ####[facility] Eq[address]mfezxx[address] [place] [address]Dr. Tapan Gordon CO2 [Moles/Vol] 29.6 mmol/L Normal 21.0-32.0 [facility] Comment on above: Performed By: #### C MP, YASH, LIPA ####[facility] [address] [place], [place] [address]Dr. Tapan Gordon Creatinine [Mass/Vol] 0.85 mg/dL Normal 0.55-1.02 [facility] Comment on above: Performed By: #### C MP, YASH, LIPA ####[facility] [address] [place], [place] [address]Dr. Tapan Gordon EGFR-AF PRYDEINIG >60 Normal >=60 [facility] Comment on above: Performed By: #### C MP, YASH, LIPA ####[facility] [address] [place] [address]Dr. Tapan Gordon EGFR-NON AF PRYDEINIG >60 Normal >=60 [facility] Comment on above: Performed By: #### C MP, YASH, LIPA ####[facility] [address] [place], [place] [address]Dr. Tapan Gordon Globulin (S) [Mass/Vol] 3.6 g/dL Normal [facility] Comment on above: Performed By: #### C MP, YASH, LIPA ####[facility] [address] [place] [address]Dr. Tapan Gordon Glucose [Mass/Vol] 125 mg/dL Critically high 74-106 [facility] Comment on above: Performed By: #### C YASH COLLINS, LIPA ####[facility] Y[address]uc[address] [place] [address]Dr. Malikapalma Evan Potassium [Moles/Vol] 3.8 mmol/L Normal 3.5-5.1 [facility] Comment on above: Performed By: #### C YASH COLLINS, LIPA ####[facility] Editwebxru[address] [place] [address]Dr. Tapan Gordon Protein [Mass/Vol] 7.1 g/dL Normal 6.4-8.2 [facility] Comment on above: Performed By: #### C YASH COLLINS LIPA ####[facility] [address]cmifrs[address] [place] [address]Dr. Tapan Gordon Sodium [Moles/Vol] 141 mmol/L Normal 136-145 [facility] Comment on above: Performed By: #### C YASH COLLINS LIPA ####[facility] [address]juu[address] [place] [address]Dr. Tapan Gordon Urea nitrogen [Mass/Vol] 22.0 mg/dL Critically high 7.0-18.0 [facility] Comment on above: Performed By: #### C YASH COLLINS LIPA ####[facility] [address] [place] [address]Dr. Tapan Gordon Urea nitrogen/Creatinine [Mass ratio] 25.9 mg/mg Normal [facility] Comment on above: Performed By: #### C YASH COLLINS LIPA ####[facility] [address] [place] [address]Dr. Tapan Gordon URINE MICROSCOPIC ONLYon BACTERIA TRACE Abnormal NONE SEEN [facility] Comment on above: Performed By: #### U MICRO, ERUR #### [facility] [address] [place] [address] Dr. Tapan Gordon Bacteria identified Cx Nom (U) NOT INDICATED Normal [facility] Comment on above: Performed By: #### U MICRO, ERUR #### [facility] [address] [place] [address] Dr. Tapan Gordon CAST NONE SEEN Normal NONE SEEN [facility] Comment on above: Performed By: #### U MICRO, ERUR #### [facility] [address] [place] [address] [address] Tapan Gordon Crystals LM Nom (Urine sed) NONE SEEN Normal NONE SEEN [facility] Comment on above: Performed By: #### U MICRO, ERUR #### [facility] [address] [place] [address] [address] Tapan oGrdon Epithelial cells LM Ql (Urine sed) FEW Abnormal NONE SEEN /RARE [facility] Comment on above: Performed By: #### U MICRO, ERUR #### [facility] [address] [place] [address] Dr. Tapan Gordon MUCOUS NONE SEEN Normal NONE SEEN [facility] Comment on above: Performed By: #### U MICRO, ERUR #### [facility] [address] [place] [address] Dr. Tapan Gordon RBC 20-50 Abnormal 0-2 [facility] Comment on above: Performed By: #### U MICRO, ERUR #### [facility] [address] [place] [address] Dr. Tapan Gordon WBC NONE SEEN Normal NONE SEEN [facility] Comment on above: Performed By: #### U MICRO, ERUR #### [facility] [address] [place] [address] LUNG CANCER SCREENINGon 0 05-29-2022 [...] by: XAVIER GONZALES Date: 2022-05-29 07:22 Normal [facility] XR hip RT min 2V(w/wo pelvis )*on 11-30-2020 XR hip RT min 2V(w/wo pelvis)* [facility] [place] [address] [place] [address] XRay Report Signed Patient: Robyn Thorpe MR#: [id number] : 1955 Acct:[id number] Age/Sex: 64 / F ADM Date: 11/30/20 Loc: XD Room: Type: [facility] Attending Dr: Brian Ariza DO Ordering Provider: Brian Ariza DO Date of Service: 11/30/20 XR/XR chest 2V*: S/P TRAUMA ([id number]) XR/XR hip RT min 2V(w/wo pelvis)*: S/P,PAIN RIGHT HIP ([id number]) XR/XR lumbar spine min 4V*: S/P,PAIN RIGHT [...] Robyn Gardiner M.D.11/30/2020 12:21 PM Dictation Location: [id number] Transcribed By: [facility] 11/30/20 1221 Dictated By: Robyn Gardiner MD 11/30/20 1214 Signed By: 11/30/20 1221 [facility] Social History Date Type Detail Facility Start: [facility]04-2023 [facility] Start: 12-04-2023 Alcohol intake Ex-drinker (finding) [facility] Start: 12-04-2023 Alcohol Comment coffee [facility] Start: 08-20-2023 End: 12-11-2023 [facility] Start: 12-12-2022 End: 03-03-2023 Tobacco smoking status [facility] Smokes tobacco daily [employer] Work Phone: Start: 12-12-2022 End: 12-11-2023 Cigarettes smoked current (pack per day) - Reported 0.5 [employer] Phone: Start: 12-12-2022 End: 03-03-2023 Tobacco use and exposure Smokeless tobacco non-user [employer] Phone: Start: 12-12-2022 End: 12-11-2023 Alcohol intake Current drinker of alcohol (finding) [employer] Phone: Start: 12-12-2022 Tobacco Comment Smokes 6-8 cigs/day [employer] Phone: Start: 12-12-2022 Alcohol Comment Beer 2-3 every 2 wee ks [employer] Work Phone: Start: 02-20-2022 Alcohol Comment on weekends, n ot often. [employer] Start: 1955 Sex Assigned At Not on file B [employer] Phone: History of tobacco use Cigarette Smoker [employer] Phone: Adolescent depressio n [facility] of [facility] use Passive smoker [facility] How often to you hav e a drink containing alcohol? 2-4 times a month [facility] Vital Signs Date Time Vital Sign Value Performing Clinician Shanell paigey 12-04-2023 15:54-0500 Body height 161.3 cm Cristobal White DPM Work Phone: [facility] [employer] 12-04-2023 15:54-0500 Body mass index (BMI) [Ratio] 35.22 kg/m2 Cristobal White DPM Work Phone: [facility] [employer] 12-04-2023 15:54-0500 Body weight 91.63 kg Cristobal White DPM Work Phone: [facility] 12-04-2023 15:54-0500 Diastolic blood pressure 81 mm[Hg] Cristobal White DPM Work Phone: [facility] [employer] 12-04-2023 15:54-0500 Heart rate 88 /min Cristobal White DPM Work Phone: [facility] 12-04-2023 15:54-0500 Systolic blood pressure 131 mm[Hg] Cristobal White DPM Work Phone: [facility] Clinical Notes 03-08-2022 to 01-15-2024 Telephone Encounter - Isidra Alexis CMA - 01/15/2024 12:05 PM EDTTelephone Encounter - Isidra Alexis CMA - 01/15/2024 12:05 PM EDTCristobal White DPM - 12/04/2023 4:00 PM EST Note Date & Type Note Facility 01-15-2024 Miscellaneous Notes They went to the wrong pharmacy documented in this encounter [facility] 01-15-2024 Telephone encounter Note They went to the wrong pharmacy [facility] 12-04-2023 History of Presen t [...] History: Diagnosis Date Allergies Anxiety Arthritis Asthma ([facility]) Cervical cancer ([facility] COPD (chronic obstructive pulmonary disease) ([facility] Depression ([facility]) History of medical problems knee scraping for knee replacement HTN (hypertension) ([facility]) Kidney disease Medications: Current Outpatient Medications: [...] findings of capsulitis/synovitis of ankle. ASSESSMENT 1. DJD (degenerative joint disease), ankle and foot, right [...] Cristobal White DPM documented in this encounter [facility] 11-17-2023 Note [facility] Cardiology Clinic Note Chief Complaint: Patient here for 6 mo follow up mitral valve regurgitation, intermittent palpitations, and hypertension. Lisinopril was increased to 5mg at last apt in May 2023. BP was still running high a few weeks later so lisinopril was again increased to 10mg daily. She then c/o cough so Mirta Flor switched her to losartan 25mg daily. She [...] mouth in the morning., Disp: , Rfl: hknwcnmsmsp-xyyxgzssx-ulhqohcj 100-62.5-25 mcg blister with device, INHALE 1 [...] normal in s (more content not included)... [facility] 11-17-2023 Miscellaneous Notes Patient called into office requesting Referral Tarunthania White MARTHA for podiatry in [place] I do need a reason (diagnosis is required) to why she wants a referral. Patient would like her toe nails trimmed, she stated that her hand strength isn't there to cut them herself anymore. done documented in this encounter [facility] 11-17-2023 Telephone encounter Note Patient called into office requesting Referral Taurn THOMAS for podiatry in [place] [facility] [employer] [facility] 11-17-2023 Telephone encounter Note I do need a reason (diagnosis is required) to why she wants a referral. [employer] 11-17-2023 Telephone encounter Note Patient would like her toe nails trimmed, she stated that her hand strength isn't there to cut them herself anymore. [employer] 11-17-2023 Telephone encounter Note done [employer] 06-25-2023 Note HTN remains uncontro lled therefore script to increase lisinopril to 10 mg daily. Repeat BMP in 1 week Reviewed labs from 06/19/23 and renal function, liver function and cholesterol are normal and well controlled K+ 5.0- will monitor Veronica Flor [employer] Division of Cardiology, [facility] Ph- [phone] Pager- [phone] Email- [email or web address] 06-10-2023 Note Increase lisinopril to 5 mg daily Continue monitoring b/p at home and staff to call in 1-2 weeks to review b/p If remains > 130/80 may transition metoprolol to coreg [facility] 06-10-2023 Note Echo reviewed with p t and noted Mod MV regurg [facility] 06-10-2023 Note Hypertension is unco ntrolled Increase lisinopril to 5 mg daily Continue metoprolol, aldactone and check BMP in 1 week to monitor renal function D/W pt about HTN with voltaren and she is not willing to stop at this time. [facility] 06-10-2023 Note [facility] CARDIOLOGY PROGR ESS [...] 10 mg by mouth in the morning. svbvhyftpvt-mvttmumwp-ltahtgse 100-62.5-25 mcg blister with device INHALE 1 [...] in 1-2 weeks to review B/P log [facility] 06-02-2023 Note Hypertension is unco ntrolled with pt reporting very elevated B/p in the mornings despite starting aldactone. Will add lisinopril in the pm daily for better HTN management [facility] 05-23-2023 Note F/u with PCP [facility] 05-23-2023 Note Tobacco use is uncha nged- pt is not willing to quit smoking at this time [facility] 05-23-2023 Note Stable with metoprolol [facility] 05-23-2023 Note Repeat echo ordered in light of SOB with exertion and MR noted on prior echo [facility] 05-23-2023 Note Hypertension is elev ated continue all meds and will add aldactone to regime Repeat BMP in 1 week to assess renal function and electrolytes and pt voiced understanding [facility] 05-23-2023 Note Stable [facility] 05-23-2023 Note [facility] CARDIOLOGY PROGR ESS NOTE [...] 10 mg by mouth in the morning. ctrpvcbouan-njolycxny-tlqkmjeo 100-62.5-25 mcg blister with device INHALE 1 [...] moderate COPD vs asthma Cath 2017 at [facility]: non obstructive cors, possible bridging of LAD [...] Assessment/Plan: Atypical chest (more content not included)... [facility] 05-23-2023 Note Patient here for 1 [...] All other systems reviewed and are negative. [facility] 07-03-2022 Note PROCEDURE: XR ANKLE RT [...] authenticated by: YANELIS ENGEL Date: 2022-07-03 10:27 [facility] 04-03-2022 Note PROCEDURE: XR ANKLE RT [...] authenticated by: YANELIS ENGEL Date: 2022-04-03 15:51 [facility] 04-03-2022 Note PROCEDURE: XR ANKLE RT [...] authenticated by: YANELIS ENGEL Date: 2022-04-03 15:51 [facility] 03-08-2022 Note PROCEDURE: XR ELBOW RT MIN 3 VIEWS HISTORY: Pain ; right elbow pain and contusion after falling COMPARISON: None. FINDINGS: BONES:No fracture, acute abnormality, or significant arthropathy. SOFT TISSUES:No visible soft tissue swelling. EFFUSION:None visible. OTHER: Negative. IMPRESSION: 1. No acute bone abnormality. 2. Minimal degenerative changes. Electronically authenticated by: YANELIS ENGEL Date: 2022-03-08 12:09 [facility] Evaluation note Diagnosis Renal calculus Calculus of kidney Gross hematuria documented in this encounter [employer] Phone: evaluation note* Diagnosis Renal calculus Calculus of kidney Gross hematuria documented in this encounter [facility] [employer] Phone: evaluation note* Diagnosis Renal calculus Calculus of kidney Gross hematuria documented in this encounter [employer] Phone: evaluation note* Diagnosis Renal calculus Calculus of kidney Pre-op testing Preoperative examination, unspecified Renal calculus Calculus of kidney documented in this encounter [employer] Phone: evaluation note* Diagnosis Renal calculus Calculus of kidney Pre-op testing Preoperative examination, unspecified Renal calculus Calculus of kidney documented in this encounter [employer] Phone: evaluation note* Diagnosis Hx of onychomycosis- Primary documented in this encounter [facility] [employer] SystemEvaluation note* Diagnosis DJD (degenerative joint disease), ankle and foot, right- Primary Other specified disorders of synovium, right ankle and foot Onychomycosis Dermatophytosis of nail Toe pain, bilateral documented in this encounter [facility] HealthcareEvaluation note* Diagnosis Chronic bronchitis with emphysema ([facility]) Obstructive chronic bronchitis without exacerbation Arthritis, multiple joint involvement Unspecified arthropathy, multiple sites Anxiety and depression Fibromyalgia Unspecified myalgia and myositis Acquired hypothyroidism Unspecified hypothyroidism Benign essential HTN Primary insomnia Persistent disorder of initiating or maintaining sleep [facility] Diagnosis Chronic bronchitis with emphysema ([facility]) Obstructive chronic bronchitis without exacerbation Arthritis, multiple joint involvement Unspecified arthropathy, multiple sites Anxiety and depression Fibromyalgia Unspecified myalgia and myositis Acquired hypothyroidism Unspecified hypothyroidism Benign essential HTN Primary insomnia Persistent disorder of initiating or maintaining sleep History of kidney stones documented in this [facility] filedocumented in this [facility] on filedocumented in this encounter [facility] SystemInstructionsNot on filedocumented in this encounter [facility] for [facility] (narrative)* Consultation (Routine) - Pending Review Specialty Diagnoses / Procedures Referred By Gregor prabhakar Referred To Contact Podiatry Diagnoses Hx of onychomycosis Jairo Daley, BIOLOGY TUTOR-RUBBER GOODS ASSEMBLER [address] [place] [address] Cristobal White, DPBrock [address] [facility] [address] [place] [address] Referral ID Status Reason Start Date Expiration Date Visits Requested Visits Authorized [id number] Pending Review Specialty Services Required 11/17/2023 11/16/2024 1 [facility] [employer] Summary Purpose Family History No Family History [...] & PELVIS W/O CONTRST 1/> [place] [id number] - CHG CT ABDOMEN & PELVIS W/O CONTRST 1/> BODY RE Jason Au MD [address], [facility] [address] [place] [address] Referral ID Status Reason Start Date Expiration Date Visits Re quested Visits Authorized [id number] Closed 12/12/2022 12/12/2023 1 1 Specialty Diagnoses / Procedures Referred By Contac t Referred To Contact Cardiology Diagnoses Renal calculus Pre-op testing Procedures EKG 12 Lead Bo Black, BIOLOGY TUTOR - [employer]ER GOODS ASSEMBLER [address] [facility] [address] [place] [address] Referral ID Status Reason Start Date Expiration Date Visits Re quested Visits Authorized [id number] Open 01/02/2023 01/02/2024 1 1 Additional Source Comments INFORMATION SOURCE (unrecogn ized section and content) DATE CREATED AUTHOR 11/26/2021 [facility] DATE CREATED AUTHOR AUTHOR'S ORGANIZ ATION 09/22/2022 [facility] [place] DATE CREATED AUTHOR AUTHOR'S ORGANIZ ATION 03/03/2023 [facility] DATE CREATED AUTHOR AUTHOR'S ORGANIZ ATION 04/27/2023 [facility] DATE CREATED AUTHOR AUTHOR'S ORGANIZ ATION 11/21/2023 [facility] DATE CREATED AUTHOR AUTHOR'S ORGANIZ ATION 12/19/2023 [facility] DATE CREATED AUTHOR AUTHOR'S ORGANIZ ATION 03/13/2024 [facility] DATE CREATED AUTHOR AUTHOR'S ORGANIZ ATION 04/12/2024 [facility] Care Teams (unrecognized sec tion and content) Construction Sales Manager Relationship Specialty Start Date End Date Jairo Daley, BIOLOGY TUTOR - [employer] ASSEMBLER [address] [place] [address] PCP - General 12/12/22 Construction Sales Manager Relationship Specialty Start Date End Date Jairo Daley BIOLOGY TUTOR - [employer] ASSEM[employer]ER [address] [place] [address] PCP - General 12/12/22 Construction Sales Manager Relationship Specialty Start Date End Date Jaior Daley BIOLOGY TUTOR - [employer]SEM[employer]ER [address] [place] [address] PCP - General 12/12/22 Construction Sales Manager Relationship Specialty Start Date End Date Jairo Daley BIOLOGY TUTOR - [employer] ASSEMBLER [address] [place] [address] PCP - General 12/12/22 Construction Sales Manager Relationship Specialty Start Date End Date Jairo Daley [facility] [address] [place] [address] PCP - General Family Medicine 02/20/22 Construction Sales Manager Relationship Specialty Start Date End Date Jairo Daley [facility]Y [facility] [address] [place] [address] PCP - General Family Medicine 02/20/22 Construction Sales Manager Relationship Specialty Start Date End Date [facility] [address] [place] [address] PCP - General Family Medicine 02/20/22 Reason for Visit (unrecogniz ed section and content) Specialty Diagnoses / Procedures Referred By Contlou t Referred To Contact Radiology Diagnoses Renal calculus Gross hematuria Renal Calculus [N20.0] Gross Hematuria [R31.0] Procedures CT UROGRAM CHG CT ABDOMEN & PELVIS W/O CONTRST 1/> [place] [id number] - CHG CT ABDOMEN & PELVIS W/O CONTRST 1/> BODY RE Jason Au MD [address], [address] [place] [address] Referral ID Status Reason Start Date Expiration Date Visits Re quested Visits Authorized [id number] Closed 12/12/2022 12/12/2023 1 1 Reason Comments DM Foot Care Dm Nails/ fungus Specialty Diagnoses / Procedures Referred By Contlou t Referred To Contact Podiatry Diagnoses Hx of onychomycosis Procedures AMB REFERRAL TO PODIATRY Jairo Daley CRNP [address] [place] [address] Cristobal White DPM [address] [place] [address] Referral ID Status Reason Start Date Expiration Date Visits Re quested Visits Authorized [id number] Closed 11/17/2023 11/16/2024 1 1 Reason Onset [...] BE BASED ON THE PRIMARY CLINICAL RECORDS. [facility]. provides no warranty or guarantee of the accuracy or completeness of information in this document.
[2024-04-25 09:13] LABS: Basophils Absolute Auto 0.1 10^3/uL (0.0-0.1); Basophils Percent Auto 0.4 % (0.2-2.0); Eosinophils Absolute Auto 0.1 10^3/uL (0.0-0.7); Eosinophils Percent Auto 1.1 % (0.9-7.0); Hematocrit 37.1 % (36.0-48.0); Hemoglobin 12.2 g/dL (12.0-16.0); Immature Granulocytes Abs Auto 0.05 10^3/uL (0.00-0.03); Immature Granulocytes Pct Auto 0.4 % (0.0-0.5); Lymphocytes Absolute Auto 1.8 10^3/uL (1.2-3.8); Lymphocytes Percent Auto 15.1 % (20.5-60.0); Mean Corpuscular HGB Conc 32.9 g/dL (29.9-35.2); Mean Corpuscular Hemoglobin 30.1 pg (26.7-34.0); Mean Corpuscular Volume 91.6 fL (81.0-99.0); Mean Platelet Volume 10.8 fL (9.5-13.5); Monocytes Percent Auto 8.5 % (1.7-12.0); Neutrophils Absolute Auto 8.6 10^3/uL (1.4-6.5); Neutrophils Percent Auto 74.5 % (43.0-75.0); Platelet Count 266 10^3/uL (150-450); Red Blood Count 4.05 10^6/uL (4.20-5.40); Red Cell Distribution Width 13.2 % (11.0-15.0); White Blood Count 11.6 10^3/uL (4.0-11.0)
[2024-04-25 09:31] LABS: Anion Gap 11.9
[2024-04-25 09:34] LABS: Alanine Aminotransferase 44 U/L (14-59); Albumin Globulin Ratio 0.9; Albumin Level 2.9 g/dL (3.4-5.0); Alkaline Phosphatase 68 U/L (46-116); Aspartate Amino Transferase 34 U/L (15-37); BUN Creatinine Ratio 30.2; Bilirubin Total 0.7 mg/dL (0.2-1.0); Calcium 8.2 mg/dL (8.5-10.1); Carbon Dioxide 26.3 mmol/L (21.0-32.0); Chloride 104 mmol/L (98-107); Estimated GFR (African America >60 (>=60); Estimated GFR (Non-African Ame 52 (>=60); Globulin 3.3 g/dL; Glucose 184 mg/dL (74-106); Potassium 4.2 mmol/L (3.5-5.1); Sodium 138 mmol/L (136-145); Total Protein 6.2 g/dL (6.4-8.2); Troponin I High Sensitivity 8.8 pg/mL (4.0-51.3)
[2024-04-25] MEDS: KETOROLAC TROMETHAMINE 30 MG/ML VIAL 15 MG IVP (10:17)
--- NOTE | 2024-04-25 15:12 | ED.GENADUL1 ---
HPI HPI - General Adult General Chief complaint: Extremity Injury, Lower Stated complaint: LOW AND UPPER EXTREMETY INJURY DUE TO A FALL Time Seen by Provider: 04/25/24 08:29 Source: patient Mode of arrival: walk-in Limitations: no limitations History of Present Illness HPI narrative: The patient is coming to the ER with almost 8 hours history of fall she did remember that she woke up to go downstairs at midnight this morning and she remembers that she woke up at the end of the stairs with bruises all over her. Patient does not live by herself, she mentioned that when she woke up she was not confused and she does not know what exactly happened but she thinks it is she fell down stairs. The patient is complaining of right hip pain as well as left shoulder pain There was no other complaints Related Data Home Medications ?Medication ?Instructions ?Recorded ?Confirmed albuterol sulfate 90 mcg/actuation 1 inh inhalation Q6H PRN 04/25/24 04/25/24 aerosol inhaler bronchospasm diclofenac sodium 75 mg 75 mg PO Q12H 04/25/24 04/25/24 tablet,delayed release fluoxetine 10 mg capsule 10 mg PO .QHS 04/25/24 04/25/24 fluticasone fur. 100 mcg-umeclid 1 inh inhalation Q24H 04/25/24 04/25/24 62.5 mcg-vilant 25 mcg inhalat.powder (Trelegy Ellipta) gabapentin 100 mg capsule 100 mg PO Q12H 04/25/24 04/25/24 gabapentin 300 mg capsule 300 mg PO Q12H 04/25/24 04/25/24 levothyroxine 25 mcg tablet 25 mcg PO DAILY 04/25/24 04/25/24 losartan 25 mg tablet 25 mg PO DAILY 04/25/24 04/25/24 metoprolol tartrate 25 mg tablet 25 mg PO Q12H 04/25/24 04/25/24 spironolactone 25 mg tablet 25 mg PO DAILY 04/25/24 04/25/24 trazodone 150 mg tablet 150 mg PO .QHS 04/25/24 04/25/24 Previous Rx's ?Medication ?Instructions ?Recorded tramadol 50 mg tablet 50 mg PO Q6H PRN pain 5 days #20 07/17/23 tabs Allergies Allergy/AdvReac Type Severity Reaction Status Date / Time No Known Drug Allergies Allergy Verified 07/17/23 08:44 Opioid HPI Opioid Management Most Recent Opioid Data: Last Pain Scale 8 04/25/24 10:17 Last DEC Pain Assessment 04/25/24 10:17 Review of Systems ROS Status of ROS 10 or more systems reviewed and unremarkable except as noted in history and below Exam Narrative Exam Narrative: Nurses notes and vital signs reviewed and patient is not hypoxic. General: Well-appearing and in no apparent distress. Skin: Warm, dry, no pallor noted. No rash. Head: Normocephalic, atraumatic. Neck: Supple, non-tender. Eye: Pupils are equal, round and EOMI. No scleral icterus. Ears, Nose, Mouth, and Throat: TM are clear, no nasal mucosal hypertrophy. Oral mucosa is moist, no posterior oropharynx erythema, uvula is mid-line Cardiovascular: Regular Rate and Rhythm without murmur, gallop or rub. Respiratory: No accessory muscle use or respiratory distress. Lungs are clear to auscultation, no wheezing, rales or rhonchi Chest Wall: no tenderness Back: No midline thoracic or lumbar vertebral tenderness. No CVA tenderness Musculoskeletal multiple bruises noted in the upper and lower extremity mostly in the right forearm as well as the right tibia and the left leg as well The patient have no open wounds and she is able to ambulate with no difficulty and have full range of movement. And there is a big bruise in the right hip area covering all the buttock area as well the patient have another bruise on the left shoulder as well, also a small bruise on the left posterior aspect of the back GI: Abdomen is soft, non-distended. Normal bowel sounds. No masses appreciated. No tenderness to palpation. No rebound, guarding, or rigidity noted. Neurological: A&O x4. No cranial nerve dysfunction observed. No truncal ataxia. Moves all extremities. Sensation intact. Psychiatric: Cooperative and interactive. Normal mood and affect. Constitutional Vital Signs, click to edit/add: Last Vital Signs Pulse 65 04/25/24 11:50 Resp 18 04/25/24 11:50 BP 160/73 H 04/25/24 08:26 Pulse Ox 97 04/25/24 11:50 Course Vital Signs Vital signs: Vital Signs Pulse Rate 76 04/25/24 08:26 Respiratory Rate 18 04/25/24 08:26 Blood Pressure 160/73 H 04/25/24 08:26 Pulse Oximetry 98 04/25/24 08:26 Pulse Rate 65 04/25/24 11:50 Respiratory Rate 18 04/25/24 11:50 Blood Pressure 160/73 H 04/25/24 08:26 Pulse Oximetry 97 04/25/24 11:50 Medical Decision Making MDM Narrative Medical decision making narrative: CT head as well as CT cervical spine showed no acute pathology CT abdomen and CT chest also showed no acute pathology The patient also had a CT pelvis showing no acute pathology as well included in the CT abdomen The patient CBC and chemistry showed no acute pathology except for mild dehydration and BUN elevation The patient upper and lower extremities shows only hairline fracture in the right distal radius no other pathology detected Sugar-tong splint applied to the right forearm and the patient was referred to orthopedic as outpatient The patient was instructed to monitor his symptoms in case of any new symptoms she is to be coming back to the ER she also to apply ice treatment Patient also treated in the ER with Toradol The patient is to follow up with primary care physician in next 2-3 days or to return to the emergency department should any of the signs or symptoms worsen or new symptoms develop. The patient agrees with the following Diagnosis and Treatment plan and the patient will be discharged home. Lab Data Labs: Lab Results 04/25/24 Range/Units 09:05 WBC 11.6 H (4.0-11.0) 10^3/uL RBC 4.05 L (4.20-5.40) 10^6/uL Hgb 12.2 (12.0-16.0) g/dL Hct 37.1 (36.0-48.0) % MCV 91.6 (81.0-99.0) fL MCH 30.1 (26.7-34.0) pg MCHC 32.9 (29.9-35.2) g/dL RDW 13.2 (11.0-15.0) % Plt Count 266 (150-450) 10^3/uL MPV 10.8 (9.5-13.5) fL Neut % (Auto) 74.5 (43.0-75.0) % Lymph % (Auto) 15.1 L (20.5-60.0) % Pettis % (Auto) 8.5 (1.7-12.0) % Eos % (Auto) 1.1 (0.9-7.0) % Baso % (Auto) 0.4 (0.2-2.0) % Neut # (Auto) 8.6 H (1.4-6.5) 10^3/uL Lymph # (Auto) 1.8 (1.2-3.8) 10^3/uL Pettis # (Auto) 1.0 H (0.3-0.8) 10^3/uL Eos # (Auto) 0.1 (0.0-0.7) 10^3/uL Baso # (Auto) 0.1 (0.0-0.1) 10^3/uL Abs Immat Gran (auto) 0.05 H (0.00-0.03) 10^3/uL Imm/Tot Granulo (auto) 0.4 (0.0-0.5) % Sodium 138 (136-145) mmol/L Potassium 4.2 (3.5-5.1) mmol/L Chloride 104 (98-107) mmol/L Carbon Dioxide 26.3 (21.0-32.0) mmol/L Anion Gap 11.9 BUN 32.0 H (7.0-18.0) mg/dL Creatinine 1.06 H (0.55-1.02) mg/dL Est GFR ( Amer) >60 (>=60) Est GFR (Non-Af Amer) 52 L (>=60) BUN/Creatinine Ratio 30.2 Glucose 184 H (74-106) mg/dL Calcium 8.2 L (8.5-10.1) mg/dL Total Bilirubin 0.7 (0.2-1.0) mg/dL AST 34 (15-37) U/L ALT 44 (14-59) U/L Alkaline Phosphatase 68 (46-116) U/L Troponin I High Sens 8.8 (4.0-51.3) pg/mL Total Protein 6.2 L (6.4-8.2) g/dL Albumin 2.9 L (3.4-5.0) g/dL Globulin 3.3 g/dL Albumin/Globulin Ratio 0.9 Discharge Plan Discharge Stand Alone Forms: Portal Instructions Chief Complaint: Extremity Injury, Lower Clinical Impression: Fall, Distal radial fracture Patient Disposition: Home, Self-Care Time of Disposition Decision: 12:59 Condition: Good Prescriptions / Home Meds: No Action tramadol 50 mg tablet 50 mg PO Q6H PRN (Reason: pain) 5 Days Qty: 20 0RF albuterol sulfate 90 mcg/actuation HFA aerosol inhaler 1 inh INHALATION Q6H PRN (Reason: bronchospasm) diclofenac sodium 75 mg tablet,delayed release (DR/EC) 75 mg PO Q12H fluoxetine 10 mg capsule 10 mg PO .QHS Trelegy Ellipta 100-62.5-25 mcg blister with device 1 inh INHALATION Q24H gabapentin 300 mg capsule 300 mg PO Q12H levothyroxine 25 mcg tablet 25 mcg PO DAILY losartan 25 mg tablet 25 mg PO DAILY metoprolol tartrate 25 mg tablet 25 mg PO Q12H trazodone 150 mg tablet 150 mg PO .QHS gabapentin 100 mg capsule 100 mg PO Q12H spironolactone 25 mg tablet 25 mg PO DAILY Print Language: Chinese Instructions: Arm Fracture in Adults (ED), Fall Prevention (ED) Referrals: Michi Drake MD [Physician] - 1 week JAIRO WALKER [Primary Care Provider] - 1 week Discharge Date/Time: 04/25/24 13:19
== END 2024-04-25 13:19 | disposition home or self-care (01) ==
PROVIDERS: Emergency Provider Emergency Medicine; PCP Nurse Practitioner
DX: S52.501A Unspecified fracture of the lower end of right radius, initial encounter for closed fracture (principal); W10.9XXA Fall (on) (from) unspecified stairs and steps, initial encounter
CPT/HCPCS: 29125; 36415; 70450; 71250; 72125; 73030; 73090; 73110; 73564; 73590; 73630; 74176; 80053; 84484; 85025; 93005; 96374; 99285; J1885

== ENCOUNTER 2024-05-03 07:25 | Outpatient (OUT) | payer OTHER, SELFPAY ==
--- NOTE | 2024-05-03 | XR_ITS ---
The [address] [address] Patient Name: FRANKO NUNEZ MRN: [id number] date: 1955 Sex: F Assigned Patient Location: Current Patient Location: Accession/Order Number: [id number] Exam Date: 05/03/2024 07:25 Report Date: 05/03/2024 07:56 At the request of: YANELIS SHOOK Procedure: XR wrist RT min 3V PROCEDURE: XR wrist RT min 3V COMPARISON: 04/25/2024 HISTORY: RIGHT WRIST PAIN FINDINGS: BONES:Distal radius fracture is poorly visualized on today's exam. No new fracture or dislocation SOFT TISSUES:Negative. No visible soft tissue swelling. EFFUSION:None visible. OTHER: Negative. XR/XR wrist RT min 3V IMPRESSION: Previously identified distal radius fracture is poorly seen on today's exam suggesting interval healing Electronically authenticated by: XAVIER GONZALES Date: 05/03/2024 07:56
== END 2024-05-03 07:26 | disposition home or self-care (01) ==
LOC: EC 07:25
PROVIDERS: PCP Nurse Practitioner; Visit Provider Orthopaedic Surgery
DX: S52.551D Other extraarticular fracture of lower end of right radius, subsequent encounter for closed fracture with routine healing (principal)
CPT/HCPCS: 73110

== ENCOUNTER 2024-05-10 08:06 | Outpatient (OUT) | payer OTHER, SELFPAY ==
--- NOTE | 2024-05-10 | XR_ITS ---
The [address] [address] Patient Name: FRANKO NUNEZ MRN: [id number] date: 1955 Sex: F Assigned Patient Location: Current Patient Location: Accession/Order Number: [id number] Exam Date: 05/10/2024 08:07 Report Date: 05/11/2024 06:26 At the request of: YANELIS SHOOK Procedure: XR wrist RT min 3V PROCEDURE: XR wrist RT min 3V HISTORY: RIGHT WRIST PAIN COMPARISON: XR wrist right 05/03/2024 FINDINGS: BONES:No visible fracture or periosteal reaction. Intact carpal bones. SOFT TISSUES:Images were obtained to cast material which limits evaluation. EFFUSION:None visible. OTHER: Negative. XR/XR wrist RT min 3V IMPRESSION: 1. Evaluation is limited by cast material. 2. No appreciable fracture on today's images. Electronically authenticated by: YANELIS ENGEL Date: 05/11/2024 06:26
== END 2024-05-10 08:07 | disposition home or self-care (01) ==
LOC: EC 08:06
PROVIDERS: PCP Nurse Practitioner; Visit Provider Orthopaedic Surgery
DX: S52.551D Other extraarticular fracture of lower end of right radius, subsequent encounter for closed fracture with routine healing (principal)
CPT/HCPCS: 73110

== ENCOUNTER 2024-06-02 07:48 | Outpatient (OUT) | payer OTHER, SELFPAY ==
--- OUTSIDE RECORDS SUMMARY | 2024-06-02 07:53 | XMS_ITS | CCD ---
Author Organization [facility] Care Team Providers Care Staff Pharmacist Hospital Name Role Phone RANDAL ORTIZ Attending Unavailable Daley STEELWORKER - BOTTOM IRONER, Jairo Cabrera Primary Care [facility] ider BRAULIO LASSITER Consulting Unavailable AJIT ., JERI Attending Unavailable AJIT ., JERI Admitting Unavailable DALEY, JAIRO Primary Care Unavailable AJIT ., JERI Consulting Unavailable JANEEN POOLE Consulting Unavailable AMALIA ., FAVIO Attending Unavailable AMALIA ., FAVIO Admitting Unavailable DALEY, JAIRO Primary Care Unavailable AMALIA ., FAVIO Consulting Unavailable TORO, DR YANELIS Zaldivar Consulting Unavailable DALEY, JAIRO [...] Consulting Unavailable DALEY, JAIRO Primary Care Unavailable NATANDER, SUNNY Laws Attending Unavailable HOMERO, SUNNY Laws Admitting Unavailable SUNNY VALENTIN Consulting Unavailable BO [...] DALEY, JAIRO J Primary Care Unavailable Daley STEELWORKER-BOTTOM IRONER, Jairo J Primary Care Provid er VERONICA FLOR Attending Unavailable [facility]V Attending Unavailable VERONICA FLOR Attending Unavailable Unavailable Primary Care Provider Unavailabl e AARON, JAIRO J Referring Unavailable DALEY, JAIRO J Primary Care Unavailable DALEY, JAIRO J Attending Unavailable DALEY, JAIRO J Referring Unavailable DALEY, JAIRO J Primary Care Unavailable DALEY, JAIRO J Attending Unavailable DALEY, JAIRO J Referring Unavailable DALEY, JAIRO J Primary Care Unavailable CRISTOBAL WHITE Attending Unavailable DALEY, JAIRO Referring Unavailable CRISTOBAL WHITE Attending Unavailable CRISTOBAL WHITE Attending Unavailable CRISTOBAL WHITE Attending Unavailable Allergies Allergy Classification Reported Allergen(s) Allergy Type Date of Onset Reaction(s) Facility (5 sources) Silicone adhesive tape Propensity to adverse reactions to drug 3 Rash [facility] (1 source) bee venom Drug allergy (disorder) 6 [facility] (1 source) Latex Drug allergy (disorder) [facility] (6 sources) Adhesive agent; Translations: [ADHESIVE] Propensity to adverse reactions to drug 3 Rash [facility] (6 sources) Lisinopril; Translations: [LISINOPRIL] Drug Allergy 3 Cough [facility] (6 sources) Bee Venom Protein (Honey Bee); Translations: [BEE VENOM PROTEIN (HONEY BEE)] Propensity to adverse reactions to drug 3 [facility] (2 sources) Honey bee venom Allergy to substance 3 Anaphylaxis [facility] (2 sources) Lisinopril Propensity to adverse reactions 3 Cough [facility] (2 sources) Attends Briefs Small Drug Intolerance 3 Rash [facility] NEGATED: Highlighted row has been ruled out! (5 sources) Other Propensity to adverse reactions 2 [facility] Medications Current Medications Medication Drug Class(es) [...] tab Q 4 hrs PRN 0 Active [id number] 200 actuat albuterol 0.09 mg/actuat metered dose [...] 1 TABLET BEFORE BEDTIME 0 11/17/2022 Active [id number] 0.3 ml EPINEPHrine 1 mg/ml auto-injector (10 [...] Start: 08-03-2023 take 1 capsule by mo [facility] once daily FLUoxetine (PROzac) 10 mg capsule Indications: Anxiety and depression TAKE 1 CAPSULE (10 MG TOTAL) BY MOUTH NIGHTLY. 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 Fqnbzz-gi-hsfauh ratio is >=1.00. Performed By: #### T LOIDA, 66029-6 #### [facility] ([id number]) [address] [place] [address], [address] [address] HCV RNA PAULY+probe Qnon 12-11 HCV RNA QUANT PCR [id number] IU/mL Abnormal Undetected [facility] Comment on above: Result Comment: NOTE Result in log IU/mL is 7.28. ADDITIONAL INFORMATION The quantification range of this assay is 15 to 100,000,000 IU/mL (1.18 log to 8.00 log IU/mL). Testing was performed using the diomedes HCV test ([employer] Test Performed by: [place] [address] Auditor: Raj Bhatti M.D. Ph.D.; CLIA# [id number] Performed By: #### Evens MARISCAL, 60855-9 #### [facility] ([id number]) [address] [place] [address] THYROID PROFILEon 12-11-2023 Free T4 [Mass/Vol] 1.29 ng/dL Normal 0.61-1.60 [facility] Comment on above: Performed By: #### T LOIDA, 59242-4 #### [facility] ([id number]) [address] [place] [address] TSH 0.45 uIU/mL Low 0.49-4.67 [facility] Comment on above: Performed By: #### T LOIDA, 40726-0 #### [facility] ([id number]) [address] [place] [address] Office Visiton 11-17-2023 Follow-up visit [id number] Robyn Thorpe 1955 Date Provider Department Center 11/17/2023 271-PRANAV ORTEZ GEE Alejandro Family History Problem Relation Age of Onset Diabetes Mother Coronary artery disease Mother Hypertension Mother Coronary artery disease Father Hypertension Father Other Father Coronary artery disease Brother Family Status - Relation Status Age at Mother Father Brother Level of Service:73719 OR OFFICE/OUTPATIENT ESTABLISHED LOW MDM 20 MIN [facility] Orders Onlyon 11-17-2023 Orders Only [id number] Robyn Thorpe 1955 Date Provider Department Center 11/17/2023 895-PAT BELTRÁN GEE [facility] Family History Problem Relation Age of Onset Diabetes Mother Coronary artery disease Mother Hypertension Mother Coronary artery disease Father Hypertension Father Other Father Coronary artery disease Brother Family Status - Relation Status Age at Mother Father Brother [facility] 36on 07-03-2023 36 Patient stopped by the office today c/o cough with lisinopril. Can we switch her to losartan? Normal [facility] Orders Onlyon 06-25-2023 Orders Only [id number] Robyn Thorpe 1955 Provider Department [place] 06/25/2023 VERONICA BELLO GEE Parikh Cedric Family History Problem Relation Age of Onset Diabetes Mother Coronary artery disease Mother Hypertension Mother Coronary artery disease Father Hypertension Father Other Father Coronary artery disease Brother Family Status - Relation Status Age at Mother Father Brother [facility] 37on 06-10-2023 37 Increase lisinopril to 5 mg daily ( take 2 of the 2.5 mg tabs until the bottle is empty and then next bottle will be the 5 mg tabs) Have blood checked in 1 week- to check kidney function and electrolytes Continue all other meds [facility] Office Visiton 06-10-2023 Follow-up visit [id number] Robyn Thorpe 1955 Provider Department Center 06/10/2023 VERONICA BELLO GEE Alejandro Family History Problem Relation Age of Onset Diabetes Mother Coronary artery disease Mother Hypertension Mother Coronary artery disease Father Hypertension Father Other Father Coronary artery disease Brother Family Status - Relation Status Age at Mother Father Brother Level of Service:59685 OR OFFICE/OUTPATIENT ESTABLISHED MOD MDM 30-39 MIN Reason for Visit and Comments: Follow-up [233222] [facility] Telephoneon 06-10-2023 Telephone [id number] Robyn Thorpe Rick 1955 F Date Provider Department Center 06/10/2023 PAT BAL Family History Problem Relation Age of Onset Diabetes Mother Coronary artery disease Mother Hypertension Mother Coronary artery disease Father Hypertension Father Other Father Coronary artery disease Brother Family Status - Relation Status Age at Mother Father Brother [facility] Orders Onlyon 06-02-2023 Orders Only [id number] Robyn Thorpe Rick 1955 F Date Provider Department Center 06/02/2023 VERONICA BELLO GEE Thurman Family History Problem Relation Age of Onset Diabetes Mother Coronary artery disease Mother Hypertension Mother Coronary artery disease Father Hypertension Father Other Father Coronary artery disease Brother Family Status - Relation Status Age at Mother Father Brother [facility] 36on 05-30-2023 36 Aline- does she have a f/U scheduled? [facility] 37on 05-23-2023 37 Start Spironolactone/Aldac tone 1 tab daily in the morning for high blood pressure and water retention Please have blood drawn next week to check kidney function and electrolytes. Continue to take all other medications [facility] Office Visiton 05-23-2023 Follow-up visit [id number] IlaKarsonRobyn J 1955 F Date Provider Department Center 05/23/2023 VERONICA BELLO GEE Alejandro Family History Problem Relation Age of Onset Diabetes Mother Coronary artery disease Mother Hypertension Mother Coronary artery disease Father Hypertension Father Other Father Coronary artery disease Brother Family Status - Relation Status Age at Mother Father Brother Level of Service:89256 OR OFFICE/OUTPATIENT ESTABLISHED MOD MDM 30-39 MIN [facility] XR ABDOMEN (KUB) (SINGLE AP VIEW)on 04-27-2023 [...] renal or ureteral stones Interpreted by: Олег Beltrán DO Signed by: Олег Beltrán DO 04/27/23 Final result Normal [facility] OPERATIVE REPORTon OPERATIVE REPORT [address] [address] OPERATIVE REPORT PATIENT NAME: ROBYN THORPE : 1955 MED REC NO: [id number] ROOM: ACCOUNT NO: [id number] ADMIT DATE: 01/21/2023 PROVIDER: Jason Au DATE OF PROCEDURE: 01/21/2023 SURGEON: Dr. Jason Au. VARNISHING UNIT TOOL SETTER: None. PREOPERATIVE DIAGNOSIS: Right ureteral calculus. POSTOPERATIVE [...] obtained. The patient was transferred from the [facility] onto the operating room table, [...] awoken from general anesthesia, transferred to the [facility], and taken to the PACU in satisfactory condition by Nursing and Anesthesia Teams. PLAN: The patient will be discharged home per PACU criterion and follow up with us in three months with a repeat KUB. JASON AU TZ/[id number]_T Doc#: [id number] CC: Normal [facility] Basic Metabolic Panelon 12-18 Anion gap [Moles/Vol] 8 mmol/L Low 9 - 17 mmol/L [facility] Calcium [Mass/Vol] 9.4 mg/dL 8.6 - 10. 4 mg/dL [facility] Chloride [Moles/Vol] 108 mmol/L High 98 - 107 mmol/L [facility] CO2 [Moles/Vol] 25 mmol/L 20 - 31 mmol/L [facility] Creatinine [Mass/Vol] 0.68 mg/dL 0.50 - 0.90 [...] 109 mg/dL High 70 - 99 mg/dL [facility] Interpretation and review of laboratory results Abnormal [facility] Potassium [Moles/Vol] 3.6 mmol/L Low 3.7 - 5.3 mmol/L [facility] Sodium [Moles/Vol] 141 mmol/L 135 - 144 mmol/L [facility] Urea nitrogen [Mass/Vol] 20 mg/dL 8 - 23 mg/dL [facility] Urea nitrogen/Creatinine (Bld) [Mass ratio] 29 High 9 - 20 [facility] Basic Metabolic Profon 01-03 Anion gap [Moles/Vol] 8 mmol/L Low 9-17 [facility] Comment on above: Performed By: #### B MP, CDP #### [facility] [address] [address] Auditor: Xavier Cuevas MD BUN/CRE Ratio 29 High 9-20 [facility] Comment on above: Performed By: #### B MP, CDP #### [facility] [address] [place], [place] [id number] Auditor: Xavier Cuevas MD Calcium [Mass/Vol] 9.4 mg/dL Normal 8.6-10.4 [facility] Comment on above: Performed By: #### B MP, CDP #### [facility] [address] [place], [place] [id number] Auditor: Xavier Cuevas MD Chloride [Moles/Vol] 108 mmol/L High 98-107 [facility] Comment on above: Performed By: #### B KARINA, CDP #### [facility] [address] [address] Auditor: Xavier Cuevas MD CO2 [Moles/Vol] 25 mmol/L Normal 20-31 [facility] Comment on above: Performed By: #### B KARINA, CDP #### [facility] [address] [address] Auditor: Xavier Cuevas MD Creatinine [Mass/Vol] 0.68 mg/dL Normal 0.50-0.90 [facility] Comment on above: Performed By: #### B KARINA, CDP #### [facility] [address] [address] Auditor: Xavier Cuevas MD GFR/1.73 sq M.predicted among non-blacks MDRD (S/P/Bld) [Vol rate/Area] mL/min/{1.73_m2} Normal >60 [facility] Comment on above: Result Comment: These [...] Performed By: #### B KARINA, CDP #### [facility] [address] [place], [place] [id number] Auditor: Xavier Cuevas MD Glucose [Mass/Vol] 109 mg/dL High 70-99 [facility] Comment on above: Performed By: #### B KARINA, CDP #### [facility] [address] [place], [place] [id number] Auditor: Xavier Cuevas MD Potassium [Moles/Vol] 3.6 mmol/L Low 3.7-5.3 [facility] Comment on above: Performed By: #### B KARINA, CDP #### [address] [place], [place] [id number] Auditor: Xavier Cuevas MD Sodium [Moles/Vol] 141 mmol/L Normal 135-144 [facility] Comment on above: Performed By: #### B KARINA, CDP #### [address] [place], [place] [id number] Auditor: Xavier Cuevas MD Urea nitrogen [Mass/Vol] 20 mg/dL Normal 8-23 [facility] Comment on above: Performed By: #### B KARINA, CDP #### [facility] [address] [place] [address] Dr[place], [place] [id number] Auditor: Xavier Cuevas MD CBC with Auto Differentialon 01-03-2023 Absolute Eos # 0.20 [facility] Absolute Immature Granulocyte 0.03 [facility] Absolute Lymph # 1.05 Low [facility] Absolute [place] # 0.78 [facility] Basophils (Bld) [#/Vol] 0.04 10*3/uL [facility] Basophils/100 WBC (Bld) 1 % 0 - 2 % [facility] Eosinophils/100 WBC (Bld) 3 % 1 - 4 % [facility] Hematocrit (Bld) [Volume fraction] 43.3 % 36.3 - 47.1 % [facility] Hemoglobin (Bld) [Mass/Vol] 14.3 g/dL 11.9 - 15.1 g/dL [facility] Immature granulocytes/100 WBC (Bld) 1 % High 0 [facility] Interpretation and review of laboratory results Abnormal [facility] Lymphocytes/100 WBC (Bld) 16 % Low 24 - 43 % [facility] MCH (RBC) [Entitic mass] 28.9 pg 25.2 - 33.5 pg [facility] MCHC (RBC) [Mass/Vol] 33.0 g/dL 28.4 - 34.8 g/dL [facility] MCV (RBC) [Entitic vol] 87.5 fL 82.6 - 102.9 fL [facility] Monocytes/100 WBC (Bld) 12 % 3 - 12 % [facility] NRBC Automated 0.0 0.0 per 100 WBC [facility] Platelet distribution width (Bld) [Ratio] 13.2 % 11.8 - 14.4 % [facility] Platelet mean volume (Bld) [Entitic vol] 10.9 fL 8.1 - 13.5 fL [facility] Platelets (Bld) [#/Vol] 227 10*3/uL [facility] RBC (Bld) [#/Vol] 4.95 10*6/uL 3.95 - 5.1 1 m/uL [facility] Segmented neutrophils/100 WBC (Bld) 67 % High 36 - 65 % [facility] Segs Absolute 4.37 [facility] WBC (Bld) [#/Vol] 6.5 10*3/uL [facility] CBC with Diffon 01-03-2023 Abs. Basophil 0.04 k/uL Normal 0.00-0.20 [facility] Comment on above: Performed By: #### B MP, CDP #### [facility] [address] [address] Auditor: Xavier Cuevas MD Abs.Imm.Granulocyte 0.03 k/uL Normal 0.00-0.30 [facility] Comment on above: Performed By: #### B KARINA, CDP #### [facility] [address] [place] [address] Dr[place], [place] [id number] Auditor: Xavier Cuevas MD Abs.Neutrophil (Seg) 4.37 k/uL Normal 1.50-8.10 [facility] Comment on above: Performed By: #### B KARINA, CDP #### [address] [place] [id number] Auditor: Xavier Cuevas MD Basophils/100 WBC (Bld) 1 % Normal 0-2 [facility] Comment on above: Performed By: #### B KARINA, CDP #### [address] [place], [place] [address] Auditor: Xavier Cuevas MD Eosinophils (Bld) [#/Vol] 0.20 10*3/uL Normal 0.00-0.44 [facility] Comment on above: Performed By: #### B KARINA, CDP #### [address] [place], [facility]83 Auditor: Xavier Cuevas MD Eosinophils/100 WBC (Bld) 3 % Normal 1-4 [facility] Comment on above: Performed By: #### B KARINA, CDP #### [facility] [address] [place] [address] Dr. [place], [facility]83 Auditor: Xavier Cuevas MD Erythrocyte distribution width (RBC) [Ratio] 13.2 % Normal 11.8-14.4 [facility] Comment on above: Performed By: #### B KARINA, CDP #### [address] [place], [place] [id number] Auditor: Xavier Cuevas MD Hematocrit (Bld) [Volume fraction] 43.3 % Normal 36.3-47.1 [facility] Comment on above: Performed By: #### B AKRINA, CDP #### [facility] [address] [place] [address] Dr[place], [place] [id number] Auditor: Xavier Cuevas MD Hemoglobin (Bld) [Mass/Vol] 14.3 g/dL Normal 11.9-15.1 [facility] Comment on above: Performed By: #### B MP, CDP #### [facility] [address] [place] [address] Dr[place], [place] [id number] Auditor: Xavier Cuevas MD Immature granulocytes/100 WBC (Bld) 1 % High 0 [facility] Comment on above: Performed By: #### B KARINA, CDP #### [address] [place], [place] [id number] Auditor: Xavier Cuevas MD Lymphocytes (Bld) [#/Vol] 1.05 10*3/uL Low 1.10-3.70 [facility] Comment on above: Performed By: #### B KARINA, CDP #### [address] [place], [place] [id number] Auditor: Xavier Cuevas MD Lymphocytes/100 WBC (Bld) 16 % Low 24-43 [facility] Comment on above: Performed By: #### B KARINA, CDP #### [facility] [address] [place] [address] Dr. [place], [facility]83 Auditor: Xavier Cuevas MD MCH (RBC) [Entitic mass] 28.9 pg Normal 25.2-33.5 [facility] Comment on above: Performed By: #### B KARINA, CDP #### [facility] [address] [place] [address] [place] [address] Auditor: Xavier Cuevas MD MCHC (RBC) [Mass/Vol] 33.0 g/dL Normal 28.4-34.8 [facility] Comment on above: Performed By: #### B KARINA, CDP #### [facility] [address] [place], [place] [phone] Auditor: Xavier Cuevas MD MCV (RBC) [Entitic vol] 87.5 fL Normal 82.6-102.9 [facility] Comment on above: Performed By: #### B MP, CDP #### [facility] [address] [place], [place] [id number] Auditor: Xavier Cuevas MD Monocytes (Bld) [#/Vol] 0.78 10*3/uL Normal 0.10-1.20 [facility] Comment on above: Performed By: #### B KARINA, CDP #### [address] [place], [place] [id number] Auditor: Xavier Cuevas MD Monocytes/100 WBC (Bld) 12 % Normal 3-12 [facility] Comment on above: Performed By: #### B KARINA, CDP #### [address] [place], [place] [id number] Auditor: Xavier Cuevas MD Neutrophil (Seg) 67 % High 36-65 [facility] Comment on above: Performed By: #### B MP, CDP #### [address] [place], [place] [id number] Auditor: Xavier Cuevas MD NRBC Automated 0.0 per 100 WBC Normal 0.0 [facility] Comment on above: Performed By: #### B MP, CDP #### [facility] [address] [place], [place] [id number] Auditor: Xavier Cuevas MD Platelet mean volume (Bld) [Entitic vol] 10.9 fL Normal 8.1-13.5 [facility] Comment on above: Performed By: #### B MP, CDP #### [address] [place] [address] Auditor: Xavier Cuevas MD Platelets (Bld) [#/Vol] 227 10*3/uL Normal 138-453 [facility] Comment on above: Performed By: #### B MP, CDP #### [facility] [address] [place] [address] Auditor: Xavier Cuevas MD RBC (Bld) [#/Vol] 4.95 10*6/uL Normal 3.95-5.11 [facility] Comment on above: Performed By: #### B MP, CDP #### [facility] [address] [place], [place] [id number] Auditor: Xavier Cuevas MD WBC (Bld) [#/Vol] 6.5 10*3/uL Normal 3.5-11.3 [facility] Comment on above: Performed By: #### B MP, CDP #### [facility] [address] [place], [place] [phone] Auditor: Xavier Cuevas MD EKG 12 LeadOrdered By: Enrique Quezada on 01-03-2023 Atrial Rate 64 BPM [employer] Phone: P [place] 75 degrees [employer] Phone: P-R Interval 146 ms [employer] Phone: Q-T Interval 480 ms [employer] Phone: QRS Duration 130 ms [employer] Phone: QTc Calculation (Bazett) 495 ms [employer] Phone: R [place] 3 degrees [employer] Phone: T [place] 31 degrees [employer] Phone: Ventricular Rate 64 BPM [facility] [employer] Phone: [employer] Phone: EKG 12 Leadon 01-03-2023 Normal sinus rhythm Right bundle branch block Abnormal ECG No previous ECGs available Confirmed by YANELIS QUEZADA ([id number]) on 01/03/2023 11:52:02 PM [facility] Yanelis Quezada MD - 01/03/2023 Normal sinus rhythm Right bundle branch block Abnormal ECG No previous ECGs available Confirmed by YANELIS QUEZADA ([id number]) on 01/03/2023 11:52:02 PM [facility] [employer] Phone: BUN & Creatinineon 3 Creatinine [Mass/Vol] 0.78 mg/dL 0.50 - 0.90 mg/dL [facility] [Mass/Vol] 22 mg/dL 8 - 23 mg/dL [facility] BUN + Creatinineon 3 Creatinine [Mass/Vol] 0.78 mg/dL Normal 0.50-0.90 [facility] Comment on above: Performed By: #### B [facility] #### [facility] [address] [address] Auditor: Xavier Cuevas MD GFR/1.73 sq M.predicted among non-blacks MDRD (S/P/Bld) [Vol rate/Area] mL/min/{1.73_m2} Normal >60 [facility] Comment on above: Result Comment: These [...] secretion. Performed By: #### B UNCRT #### [facility] [address] [place], [place] [id number] Auditor: Xavier Cuevas MD Urea nitrogen [Mass/Vol] 22 mg/dL Normal 8-23 [facility] Comment on above: Performed By: #### B UNCRT #### [facility] [address] [address] Auditor: Xavier Cuevas MD CT UROGRAMon 12-26-2022 CT [...] Katelyn Aceves MD 12/26/22 Final result Normal [facility] 1. Bilateral nonobstructing nephroliths larger on the right side of 6.5 mm. No ureteric obstruction. 2. Mild hepatic steatosis. Granulomas in liver and spleen. 3. Atherosclerotic disease. 4. Postsurgical changes lower lumbar spine. Other findings as above. [facility] CONSOLIDATED EXAMINATION: CT UROGRAM 12/26/2022 1:23 pm [...] acute osseous or subcutaneous soft tissue abnormality. [facility] Katelyn Aceves MD - [...] lower lumbar spine. Other findings as above. [employer] Phone: Radiology Study observation (narrative) [employer] Phone: CT UROGRAMOrdered By: Katelyn wilkes on 12-26-2022 [employer] Phone: Cult,Urineon 12-13-2022 Cult,Urine Specimen Description .CLEAN CATCH URINE Culture NO SIGNIFICANT GROWTH Report Status FINAL 12/13/2022 [facility] Comment on above: Performed By: #### U RC #### [facility] [address] [place], [place] [id number] Auditor: Richard Farias MD [facility] [address] [place] [address] Dr. [place], [place] [id number] Auditor: Xavier Cuevas MD Urinalysis w/ Microon 2022 Bacteria 2+ Abnormal NONE [facility] Comment on above: Performed By: #### U AMIC #### [facility] [address] [place] [address] Dr. [place], [place] [id number] Auditor: Xavier Cuevas MD Bilirubin, SemiQt,Ur Negative Normal NEG [facility] Comment on above: Performed By: #### U AMIC #### [facility] [address] [place] [address] Dr. [place], [place] [id number] Auditor: Xavier Cuevas MD Blood, Urine TRACE Abnormal NEG [facility] Comment on above: Performed By: #### U AMIC #### [facility] [address] [place] [address] Dr. [place], [place] [id number] Auditor: Xavier Cuevas MD Clarity (U) Clear Normal CLEAR [facility] Comment on above: Performed By: #### U AMIC #### [facility] [address] [place] [address] Dr. [place], [place] [id number] Auditor: Xavier Cuevas MD Color (U) Yellow Normal YEL [facility] Comment on above: Performed By: #### U AMIC #### [facility] [address] [place] [address] Dr. [place], [place] [id number] Auditor: Xavier Cuevas MD Epithelial cells LM Ql (Urine sed) 2 TO 5 Normal 0-25 [facility] Comment on above: Performed By: #### U AMIC #### [facility] [address] [place] [address] Dr. [place], [place] [id number] Auditor: Xavier Cuevas MD Glucose Ql (U) Negative Normal NEG [facility] Comment on above: Performed By: #### U AMIC #### [facility] [address] [place] [address] Dr. [place], [facility]83 Auditor: Xavier Cuevas MD Ketones Ql (U) TRACE Abnormal NEG [facility] Comment on above: Performed By: #### U AMIC #### [facility] [address] [place] [address] [place] [address] Auditor: Xavier Cuevas MD Leukocyte esterase Test strip Ql (U) Negative Normal NEG [facility] Comment on above: Performed By: #### U AMIC #### [facility] [address] [place] [address] [place] [id number] Auditor: Xavier Cuevas MD Mucus Strands 1+ Abnormal NONE [facility] Comment on above: Performed By: #### U AMIC #### [facility] [address] [place] [address] [place] [address] Auditor: Xavier Cuevas MD Nitrite,Ur Negative Normal NEG [facility] Comment on above: Performed By: #### U AMIC #### [facility] [address] [place] [address] Dr. [place] [id number] Auditor: Xavier Cuevas MD PH,Ur 6.0 Normal 5.0-9.0 [facility] Comment on above: Performed By: #### U AMIC #### [facility] [address] [place] [address] [place] [address] Auditor: Xavier Cuevas MD Protein Ql (U) 1+ Abnormal NEG [facility] Comment on above: Performed By: #### U AMIC #### [facility] [address] [place] [address] Dr. [place] [id number] Auditor: Xavier Cuevas MD Spec. Criders,Ur 1.025 High 1.010-1.020 [facility] Comment on above: Performed By: #### U AMIC #### [facility] [address] [place], [place] [id number] Auditor: Xavier Cuevas MD Urine RBC's 5 TO 10 Normal 0-2 [facility] Comment on above: Performed By: #### U AMIC #### [facility] [address] [place], [place] [id number] Auditor: Xavier Cuevas MD Urine WBC's 0 TO 2 Normal 0-5 [facility] Comment on above: Performed By: #### U AMIC #### [facility] [address] [place], [place] [id number] Auditor: Xavier Cuevas MD Urobilinogen,Ur Normal Normal NORM [facility] Comment on above: Performed By: #### U AMIC #### [facility] [address] [address] Auditor: Xavier Cuevas MD Urinalysis with Microscopico n 12-12-2022 Bacteria, UA 2+ Abnormal None [facility] Bilirubin Urine Negative NEGATIVE [facility] Color, UA Yellow Yellow [facility] Epithelial Cells UA 2 TO 5 [facility] Glucose Auto test strip (U) [Mass/Vol] Negative NEGATIVE [facility] Interpretation and review of laboratory results Abnormal [facility] Ketones (U) [Mass/Vol] TRACE Abnormal NEGATIVE [facility] Leukocyte esterase Auto test strip Ql (U) Negative NEGATIVE [facility] Mucus, UA 1+ Abnormal None [facility] Nitrite Auto test strip Ql (U) Negative NEGATIVE [facility] Protein (U) [Mass/Vol] 6.0 mg/dL 5.0 - 9.0 [facility] Protein (U) [Mass/Vol] 1+ Abnormal NEGATIVE [facility] RBC clumps Auto (Urine sed) [#/Area] 5 TO 10 [facility] Specific Criders, UA 1.025 High 1.010 - 1.020 [facility] Turbidity UA Clear Clear [facility] Urine Hgb TRACE Abnormal NEGATIVE [facility] Urobilinogen, Urine Normal Normal [facility] S [facility] WBC, UA 0 TO 2 [facility] XR RIBS LT PA Sophia 3 XR RIBS LT PA CH EXAM: XR RIBS LT PA CH HISTORY: Rib pain COMPARISON: 05/28/2022 TECHNIQUE: Four views of the left ribs. FINDINGS: No rib fracture indentified. The lungs are clear. IMPRESSION: 1. No acute rib fracture identified. Electronically authenticated by: JANEEN POOLE Date: 2022-12-03 10:28 Normal [facility] MRI BRAIN WO W CONon 023 MRI [...] YANELIS ENGEL Date: 2022-10-22 13:55 Normal [facility] CREATININEon 10-21-2022 Creatinine [Mass/Vol] 0.94 mg/dL Normal 0.55-1.02 [facility] Comment on above: Performed By: #### C HUGH ####[facility] [address] [place] [address]DrCedric Gordon EGFR-AF SOMALI >60 Normal >=60 [facility] Comment on above: Performed By: #### C HUGH ####[facility] [address] [place], [place] [address]FeCedric Gordon EGFR-NON AF SOMALI =60 Normal >=60 [facility] Comment on above: Performed By: #### C HUGH ####[facility] [address] [place], [place] [address]Xk. Tapan Gordon MG MAMM SCREEN 3D NICKOLAS CADon 08-13-2022 MG MAMM SCREEN 3D NICKOLAS CAD Patient: ROBYN THORPE Exam Date: 08/13/2022 : 1955 Gender:F Ordering : JAIRO DALEY Admission #: [id number] Family : Order #: [id number] CLICK HERE TO VIEW EXAM RADIOLOGY REPORT [...] kidney cancer at age 65. LOCATION: [facility] BREAST COMPOSITION: Scattered areas fibroglandular density. FINDINGS: [...] Gonzales MD on 08/14/2022 at 07:58 Normal [facility] XR DEXA BONE DENSITYon 08-13 XR DEXA [...] by: YANELIS ENGEL Date: 2022-08-13 16:09 Normal [facility] CT ABD/PELVIS WO CONon 08-07 CT ABD/PELVIS [...] by: YANELIS ENGEL Date: 2022-08-07 18:50 Normal [facility] ECHOCARDIO M/2D COMPLETEon 0 06-26-2022 ECHOCARDIO M/2D COMPLETE Patient: ROBYN THORPE Exam Date: 06/26/2022 : 1955 Gender:F Ordering : DR PRANAV ORTEZ M.D. Admission #: [id number] Family : JAIRO DALEY Order #: [id number] CLICK HERE TO VIEW EXAM ECHOCARDIOGRAM REPORT [...] M.D. on 06/26/2022 at 18:22 Normal [facility] AMYLASEon 06-19-2022 Amylase [Catalytic activity/Vol] 48 U/L Normal 25-115 [facility] Comment on above: Performed By: #### C MP, YASH, LIPA ####[facility] [address] [place] [address]Dr. Tapan Gordon CBC AUTO DIFFon 06-19-2022 BASO # 0.0 103/ul Normal 0.0-0.1 [facility] [place] Comment on above: Performed By: #### C BC ####[facility] [address] [place], [place] [address]Dr. Tapan Gordon Basophils/100 WBC (Bld) 0.5 % Normal 0.2-2.0 [facility] [place] Comment on above: Performed By: #### C BC ####[facility] [address] [place], [place] [address]DrCedric Gordon EO # 0.2 103/ul Normal 0.0-0.7 [facility] Comment on above: Performed By: #### C BC ####[facility] [address] [place], [place] [address]Dr. Tapan Gordon Eosinophils/100 WBC (Bld) 2.4 % Normal 0.9-7.0 [facility] Comment on above: Performed By: #### C BC ####[facility] [address] [place], [place] [address]DrCedric Gordon Erythrocyte distribution width (RBC) [Ratio] 13.0 % Normal 11.0-15.0 [facility] Comment on above: Performed By: #### C BC ####[facility] [address] [place], [place] [address]Dr. Tapan Gordon Hematocrit (Bld) [Volume fraction] 43.6 % Normal 36.0-48.0 [facility] Comment on above: Performed By: #### C BC ####[facility] [address] [place] [address]Dr. Tapan Gordon Hemoglobin (Bld) [Mass/Vol] 14.6 g/dL Normal 12.0-16.0 [facility] Comment on above: Performed By: #### C BC ####[facility] [address] [place] [address]Dr. Tapan Gordon IG # 0.02 10e3/ul Normal 0.00-0.03 [facility] Comment on above: Performed By: #### C BC ####[facility] [address] [place], [place] [address]Dr. Tapan Evan IG % 0.3 % Normal 0.0-0.5 [facility] Comment on above: Performed By: #### C BC ####[facility] [address] [place], [place] [address]Dr. Malikapalma Evan LYMPH # 1.5 103/ul Normal 1.2-3.8 [facility] Comment on above: Performed By: #### C BC ####[facility] [address] [place], [place] [address]Dr. Tapan Evan Lymphocytes/100 WBC (Bld) 23.4 % Normal 20.5-60.0 [facility] Comment on above: Performed By: #### C BC ####[facility] [address] [place] [address]Dr. Tapan Gordon MANUAL DIFF REQ NO Normal [facility] Comment on above: Performed By: #### C BC ####[facility] [address] [place] [address]Dr. Tapan Gordon MCH (RBC) [Entitic mass] 29.5 pg Normal 26.7-34.0 [facility] Comment on above: Performed By: #### C BC ####[facility] [address] [place] [address]Dr. Tapan Gordon MCHC (RBC) [Mass/Vol] 33.5 g/dL Normal 29.9-35.2 [facility] Comment on above: Performed By: #### C BC ####[facility] [address] [place] [address]Dr. Tapan Gordon MCV (RBC) [Entitic vol] 88.1 fL Normal 81.0-99.0 [facility] Comment on above: Performed By: #### C BC ####[facility] [address] [place], [place] [address]Dr. Tapan Gordon MONO # 0.6 103/ul Normal 0.3-0.8 [facility] Comment on above: Performed By: #### C BC ####[facility] [address] [place], [place] [address]Dr. Malikapalma Gordon Monocytes/100 WBC (Bld) 9.8 % Normal 1.7-12.0 [facility] Comment on above: Performed By: #### C BC ####[facility] [address] [place], [place] [address]Dr. Tapan Gordon NEUT # 4.0 103/ul Normal 1.4-6.5 [facility] Comment on above: Performed By: #### C BC ####[facility] [address] [place], [place] [address]Dr. Malikapalma Gordon Neutrophils/100 WBC (Bld) 63.6 % Normal 43.0-75.0 [facility] Comment on above: Performed By: #### C BC ####[facility] [address] [place], [place] [address]Dr. Tapan Evan Platelet mean volume (Bld) [Entitic vol] 10.3 fL Normal 9.5-13.5 [facility] Comment on above: Performed By: #### C BC ####[facility] [address] [place], [place] [address]Dr. Tapan Gordon PLT 258 103/ul Normal 150-450 [facility] Comment on above: Performed By: #### C BC ####[facility] [address] [place], [place] [address]Dr. Tapan Gordon RBC 4.95 106/ul Normal 4.20-5.40 [facility] Comment on above: Performed By: #### C BC ####[facility] [address] [place], [place] [address]YgCedric Gordon WBC 6.3 103/ul Normal 4.0-11.0 [facility] Comment on above: Performed By: #### C BC ####[facility] [address] [place], [place] [address]Yz. T[address] CT ABD/PELVIS WO CONon 06-19 [...] BRAULIO LASSITER Date: 2022-06-19 10:13 Normal [facility] ER URINE PROFILEon 2 Bilirubin Ql (U) Negative Normal NEGATIVE [facility] Comment on above: Performed By: #### U MICRO, ERUR #### [facility] [address] [place] [address] [address] Tapan Gordon Clarity (U) CLEAR Normal CLEAR [facility] Comment on above: Performed By: #### U MICRO, ERUR #### [facility] [address] [place] [address] [address] Tapan Gordon Color (U) LT. YELLOW Normal YELLOW [facility] Comment on above: Performed By: #### U MICRO, ERUR #### [facility] [address] [place] [address] [address] Tapan Gordon ERUAHD A micrscopic examination will be performed if indicated. Normal [facility] Comment on above: Performed By: #### U MICRO, ERUR #### [facility] [address] [place] [address] Dr. Tapan Gordon Glucose Ql (U) Negative Normal NEGATIVE [facility] Comment on above: Performed By: #### U MICRO, ERUR #### [facility] [address] [place] [address] Dr. Tapan Gordon Hemoglobin Ql (U) LARGE Abnormal NEGATIVE [facility] Comment on above: Performed By: #### U MICRO, ERUR #### [facility] [address] [place] [address] Dr. Tapan Godron Ketones Ql (U) Negative Normal NEGATIVE [facility] Comment on above: Performed By: #### U MICRO, ERUR #### [facility] [address] [place] [address] Dr. Tapan Gordon LEUKOCYTES Negative Normal NEGATIVE [facility] [place] Comment on above: Performed By: #### U MICRO, ERUR #### [facility] [address] [place] [address] [address] Tapan Gordon Nitrite Ql (U) Negative Normal NEGATIVE [facility] Comment on above: Performed By: #### U MICRO, ERUR #### [facility] [address] [place] [address] Dr. Tapan Gordon pH (U) 7.0 [pH] Normal 5-9 [facility] Comment on above: Performed By: #### U MICRO, ERUR #### [facility] [address] [place], [place] [address] Dr. Tapan Gordon SPEC GRAVITY 1.015 Normal 1.005-<=1.025 [facility] Comment on above: Performed By: #### U MICRO, ERUR #### [facility] [address] [place] [place] [address] [address] Tapan Gordon UA PROTEIN TRACE Normal NEGATIVE/ TRACE [facility] Comment on above: Performed By: #### U MICRO, ERUR #### [facility] [address] [place] [address] [address] Tapan Gordon UR MICRO IND INDICATED Normal [facility] [place] Comment on above: Performed By: #### U MICRO, ERUR #### [facility] [address] [place] [address] Dr. Tapan Gordon Urobilinogen Qn (U) 2.0 {Aleida'U}/dL Abnormal 0.2 - 1. 0 [facility] Comment on above: Performed By: #### U MICRO, ERUR #### [facility] [address] [place] [address] Dr. Tapan Gordon LIPASEon 06-19-2022 Lipase [Catalytic activity/Vol] 182.0 U/L Normal 73.0-393.0 [facility] Comment on above: Performed By: #### C YASH COLLINS, LIPA ####[facility] [address] [place] [address]Dr. Tapan Gordon OCC BLD IMMUNO SCREENon 05-22 OCCULT BLOOD Negative Normal NEGATIVE [facility] Comment on above: Performed By: #### O BSCRN ####[facility] [address] [place] [address]Dr. Tapan Gordon PROF 14(COMP METB)on 022 Albumin [Mass/Vol] 3.5 g/dL Normal 3.4-5.0 [facility] Comment on above: Performed By: #### C YASH COLLINS, LIPA ####[facility] [address] [place] [address]DrCedric Gordon Albumin/Globulin [Mass ratio] 1.0 {ratio} Normal [facility] Comment on above: Performed By: #### C MP, YASH, LIPA ####[facility] [address] [place] [address]Dr. Tapan Gordon ALP [Catalytic activity/Vol] 76 U/L Normal 46-116 [facility] Comment on above: Performed By: #### C MP, YASH, LIPA ####[facility] [address] [place] [address]Dr. Tapan Gordon ALT [Catalytic activity/Vol] 64 U/L Critically high 14-59 [facility] Comment on above: Performed By: #### C MP, YASH, LIPA ####[facility] [address] [place], [place] [address]Dr. Tapan Gordon Anion gap [Moles/Vol] 11.2 mmol/L Normal [facility] Comment on above: Performed By: #### C MP, YASH, LIPA ####[facility] [address] [place], [place] [address]Dr. Tapan Gordon AST [Catalytic activity/Vol] 38 U/L Critically high 15-37 [facility] Comment on above: Performed By: #### C MP, YASH, LIPA ####[facility] [address] [place], [place] [address]Dr. Tapan Gordon Bilirubin [Mass/Vol] 0.7 mg/dL Normal 0.2-1.0 [facility] Comment on above: Performed By: #### C MP, YASH, LIPA ####[facility] [address] [place], [place] [address]Dr. Tapan Gordon Calcium [Mass/Vol] 8.7 mg/dL Normal 8.5-10.1 [facility] Comment on above: Performed By: #### C MP, YASH, LIPA ####[facility] [address] [place], [place] [address]Dr. Tapan Gordon Chloride [Moles/Vol] 104 mmol/L Normal 98-107 [facility] Comment on above: Performed By: #### C MP, YASH, LIPA ####[facility] [address] [place], [place] [address]Dr. Tapan Gordon CO2 [Moles/Vol] 29.6 mmol/L Normal 21.0-32.0 [facility] Comment on above: Performed By: #### C YASH COLLINS, LIPA ####[facility] [address] [place] [address]Dr. Tapan Gordon Creatinine [Mass/Vol] 0.85 mg/dL Normal 0.55-1.02 [facility] Comment on above: Performed By: #### C KARINA YASH, LIPA ####[facility] [address] [place] [id number]. Tapan Gordon EGFR-AF SOMALI >60 Normal >=60 [facility] Comment on above: Performed By: #### C KARINA YASH, LIPA ####[facility] [address] [place] [address]Dr. Tapan Gordon EGFR-NON AF SOMALI >60 Normal >=60 [facility] Comment on above: Performed By: #### C KARINA YASH, LIPA ####[facility] [address] [place] [address]Dr. Tapan Gordon Globulin (S) [Mass/Vol] 3.6 g/dL Normal [facility] Comment on above: Performed By: #### C KARINA YASH, LIPA ####[facility] [address] [place] [address]Dr. Tapan Gordon Glucose [Mass/Vol] 125 mg/dL Critically high 74-106 [facility] Comment on above: Performed By: #### C KARINA YASH, LIPA ####[facility] [address] [place] [address]Dr. Tapan Gordon Potassium [Moles/Vol] 3.8 mmol/L Normal 3.5-5.1 [facility] Comment on above: Performed By: #### C KARINA YASH, LIPA ####[facility] [address] [place] [address]Dr. Tapan Gordon Protein [Mass/Vol] 7.1 g/dL Normal 6.4-8.2 [facility] Comment on above: Performed By: #### C KARINA YASH, LIPA ####[facility] [address] [place] [id number]. Tapan Gordon Sodium [Moles/Vol] 141 mmol/L Normal 136-145 [facility] Comment on above: Performed By: #### C MP, YASH, LIPA ####[facility] [address] [place] [address]Dr. Tapan Gordon Urea nitrogen [Mass/Vol] 22.0 mg/dL Critically high 7.0-18.0 [facility] Comment on above: Performed By: #### C MP, YASH, LIPA ####[facility] [address] [place] [address]Dr. Tapan Gordon Urea nitrogen/Creatinine [Mass ratio] 25.9 mg/mg Normal [facility] Comment on above: Performed By: #### C MP, YASH, LIPA ####[facility] [address] [place] [address]Dr. Tapan Gordon URINE MICROSCOPIC ONLYon BACTERIA TRACE Abnormal NONE SEEN [facility] Comment on above: Performed By: #### U MICRO, ERUR #### [facility] [address] [address] [address] Tapan Gordon Bacteria identified Cx Nom (U) NOT INDICATED Normal [facility] Comment on above: Performed By: #### U MICRO, ERUR #### [facility] [address] [address] [address] Tapan Gordon CAST NONE SEEN Normal NONE SEEN [facility] Comment on above: Performed By: #### U MICRO, ERUR #### [facility] [address] [address] [address] Tapan Gordon Crystals LM Nom (Urine sed) NONE SEEN Normal NONE SEEN [facility] Comment on above: Performed By: #### U MICRO, ERUR #### [facility] [address] [address] [address] Tapan Gordon Epithelial cells LM Ql (Urine sed) FEW Abnormal NONE SEEN /RARE [facility] Comment on above: Performed By: #### U MICRO, ERUR #### [facility] [address] [address] [address] Tapan Gordon MUCOUS NONE SEEN Normal NONE SEEN [facility] Comment on above: Performed By: #### U MICRO, ERUR #### [facility] [address] [address] [address] Tapan Gordon RBC 20-50 Abnormal 0-2 [facility] Comment on above: Performed By: #### U MICRO, ERUR #### [facility] [address] [address] [address] Tapan Gordon WBC NONE SEEN Normal NONE SEEN [facility] Comment on above: Performed By: #### U MICRO, ERUR #### [facility] [address] [address] [address] LUNG CANCER SCREENINGon [...] XAVIER GONZALES Date: 2022-05-29 07:22 Normal [facility] XR hip RT min 2V(w/wo pelvis )*on 11-30-2020 XR hip RT min 2V(w/wo pelvis)* [facility] Main [place] [address] [place] [address] XRay Report Signed Patient: Robyn Thorpe MR#: [id number] : 1955 Acct:[id number] Age/Sex: 64 / F ADM Date: 11/30/20 Loc: XD Room: Type: [facility] CLI Attending Dr: Brian Ariza DO Ordering Provider: Brian Ariza DO Date of Service: 11/30/20 XR/XR chest 2V*: S/P TRAUMA ([id number]) XR/XR hip RT min 2V(w/wo pelvis)*: S/P,PAIN RIGHT HIP ([id number]) XR/XR lumbar spine min 4V*: S/P,PAIN RIGHT [...] Robyn Gardiner M.D.11/30/2020 12:21 PM [id number] Transcribed By: NADIA 11/30/20 1221 Dictated By: Robyn Gardiner MD 11/30/20 1214 Signed By: 11/30/20 1221 [facility] Vital Signs Date Time Vital Sign Value Performing Clinician Faci lity 12-04-2023 15:54-0500 Body height 161.3 cm Cristobal White DPM Work Phone: [facility] 12-04-2023 15:54-0500 Body mass index (BMI) [Ratio] 35.22 kg/m2 Cristobal White DPM Work Phone: [facility] 12-04-2023 15:54-0500 Body weight 91.63 kg Cristobal White DPM Work Phone: [facility] 12-04-2023 15:54-0500 Diastolic blood pressure 81 mm[Hg] Cristobal White DPM Work Phone: [facility] 12-04-2023 15:54-0500 Heart rate 88 /min Cristobal White DPM Work Phone: [facility] 12-04-2023 15:54-0500 Systolic blood pressure 131 mm[Hg] Cristobal White DPM Work Phone: [facility] Healthcare Encounters Encounter Date Encounter Type Care Provider Facility Start: 04-29-2024 End: 04-29-2024 ambulatory CRISTOBAL WHITE Not Available Start: 04-12-2024 End: 04-12-2024 ambulatory [facility] Start: 03-11-2024 End: 03-11-2024 ambulatory CRISTOBAL WHITE Not Available Start: 02-19-2024 End: 02-19-2024 ambulatory CRISTOBAL WHITE Not Available Start: 01-15-2024 Refill Isidra Vanesa [facility] Comment on above: Chronic bronchitis w ith emphysema; Arthritis, multiple joint involvement; Anxiety and depression; Fibromyalgia; Acquired hypothyroidism; Benign essential HTN; Primary insomnia; History of kidney stones Start: 01-13-2024 Refill Isidra Vanesa [facility] Comment on above: Chronic bronchitis w ith emphysema; Arthritis, multiple joint involvement; Anxiety and depression; Fibromyalgia; Acquired hypothyroidism; Benign essential HTN; Primary insomnia Start: 12-11-2023 End: 12-12-2023 ambulatory [facility] Start: 12-11-2023 End: 12-11-2023 ambulatory [facility] Start: 12-04-2023 End: 12-04-2023 Office outpatient new 30 minutes Cristobal White DPM Work Phone: [facility] Comment on above: DJD (degenerative khurram int disease), ankle and foot, right (Primary Dx); Other specified disorders of synovium, right ankle and foot; Onychomycosis; Toe pain, bilateral Start: 12-04-2023 End: 12-04-2023 ambulatory CRISTOBAL WHITE Not Available Start: 12-04-2023 Chart abstracting Cristobal greer DPM Work Phone: [facility] Start: 11-17-2023 [facility] Start: 11-17-2023 End: 11-17-2023 ambulatory AB [facility] Start: 06-10-2023 End: 06-10-2023 ambulatory [facility] Start: 05-23-2023 End: 05-23-2023 ambulatory [facility] Start: 04-25-2023 End: 04-28-2023 ambulatory [facility] Start: 01-21-2023 End: 01-21-2023 ambulatory JASON [facility] Start: 01-03-2023 End: 01-04-2023 ambulatory BO BLACK [facility] Start: 01-03-2023 Encounter for other preprocedural examination BOLACY BLACK [facility] Start: 01-03-2023 End: 01-03-2023 Patient encounter status Jairo Daley APRN - TESS Work Phone: [facility] Start: 01-03-2023 End: 01-03-2023 Subsequent hospital visit by physician Jairo Daley APRN - [employer] Work Phone: [facility] Comment on above: Renal calculus; Pre-op testing Start: 12-26-2022 End: 12-29-2022 [facility] Start: 12-26-2022 End: 12-28-2022 Subsequent hospital visit by physician [facility] Scan Room [facility] Comment on above: Renal calculus; Gross hematuria Start: 12-12-2022 End: 12-13-2022 ambulatory [facility] Start: 12-12-2022 End: 12-12-2022 Subsequent hospital visit by physician Jairo Daley APRN - TESS Work Phone: [facility] Comment on above: Renal calculus; Gross hematuria Start: 12-03-2022 End: 12-03-2022 ambulatory JANEEN POOLE Facility:[facility] Start: 10-21-2022 End: 10-22-[address] EULALIO MENESES Facility:[facility] Start: 09-11-2022 End: 09-22-2022 Emergency department patient visit RANDAL ROTIZ Facility:[facility] Start: 08-13-2022 End: 08-14-[address] [...] End: 03-08-[address] YANELIS ENGEL Facility:[facility] Procedures Date Procedure Procedure Detail Performing Clinician Start: 12-11-2023 Adult depression scr eening assessment Isidra Vanesa [facility] Start: 08-20-2023 Adult depression scr eening assessment Adysan Sleek [facility] Start: 01-03-2023 Ecg routine ecg w/le ast 12 lds w/i&r Bo Black [employer] Work Phone: Start: 01-03-2023 Basic metabolic pane l calcium total Bo Black [employer] Work Phone: Start: 12-26-2022 Ct abdomen & pelvis w/o contrst 1/> body re Jason Au MD Work Phone: Start: 12-26-2022 Assay of urea nitrog en quantitative Jason Au MD Work Phone: Start: 12-12-2022 Urnls dip stick/tabl et reagent auto microscopy Jason Au MD Work Phone: Start: 08-13-2022 Mammography Adysan Sle ek [facility] Plan of Treatment Date Care Activity Detail Author Start: 12-11-2024 Adult BMI Follow Up Plan Adult BMI F ollow Up Plan [facility] Start: 12-11-2024 Adult BMI Screening Adult BMI Screen ing [facility] Start: 12-11-2024 Depression Screening Depression Scre ening [facility] Start: 12-11-2024 Fall Risk Screening Fall Risk Screen ing [facility] Start: 12-11-2024 Tobacco Screening Tobacco Screening [facility] Start: 08-20-2024 Adult BMI Follow Up Plan Adult BMI F ollow Up Plan [facility] Start: 08-20-2024 Adult BMI Screening Adult BMI Screen ing [facility] Start: 08-20-2024 Depression Screening Depression Scre ening [facility] Start: 08-20-2024 Fall Risk Screening Fall Risk Screen ing [facility] Start: 08-20-2024 Medicare Annual Well ness Visit Medicare Annual Wellness Visit [facility] Start: 08-20-2024 Tobacco Screening Tobacco Screening [facility] Start: 04-12-2024 End: 04-12-2024 Patient encounter procedure 04/12/2024 9:40 AM EDT Office Visit [facility] [address] [place] [address] Jairo Daley, [employer] [address] [place] [id number] [facility] Start: 02-12-2024 End: 02-12-2024 Patient encounter procedure 02/12/2024 4:40 PM EDT Procedure Visit [facility] [address] [place] [address] Cristobal White DPM [address] [facility] [address] [place] [address] [facility] Start: 01-07-2024 Tobacco Counseling Tobacco Counselin g [facility] Start: 12-18-2023 End: 12-18-2023 Clinical Support 12/18/2023 8:50 AM EST Clinical Support [facility] [address] [place] [address] Cristobal White DPM [address] [facility] [address] [address] [place] [address] [facility] Start: 12-11-2023 End: 12-11-2023 Patient encounter procedure 12/11/2023 9:45 AM EST Office Visit [facility] [address] [place] [address] Jairo Daley, [employer] [address] [place] [address] [facility] Start: 12-04-2023 End: 12-04-2023 Patient encounter procedure 12/04/2023 4:00 PM EST Office Visit [facility] [address] [facility] [address] [place] [address] Cristobal White, VIKI [address] [facility] [address] [place] [address] [facility] Start: 08-13-2023 Screening for malign ant neoplasm of breast Mammogram [facility] Start: 06-20-2023 COVID-19 Vaccine ( season) COVID-19 Vaccine () [facility] Start: 01-21-2023 End: 01-21-2023 Admission to same day surgery center 01/21/2023 Surgery IP Unit Jason Au MD [address] [facility], [address] [place] [address] ESWL EXTRACORPOREAL SHOCK WAVE LITHOTRIPSY [facility] Comment on above: ESWL EXTRACORPOREAL SHOCK WAVE LITHOTRIPSY Start: 01-21-2023 End: 01-21-2023 Lithotripsy xtrcorp shock wave [facility] EXTRACORPOREAL SHOCK WAVE LITHOTRIPSY Renal calculus 01/21/2023 7:30 AM EDT [facility] Start: 01-21-2023 Subsequent hospital visit by physician 01/21/2023 Hospital Encounter IP Unit Jason Au MD [address] [place] [address], [address] [place] [address] [facility] Start: 12-31-2022 End: 12-31-2022 Patient encounter procedure 12/31/2022 Appointment Radiology [facility] CT Scan Start: 12-12-2022 Annual Wellness Visi t (AWV) Annual Wellness Visit (AWV) [facility] Start: 2011 Screening for osteoporosis DEXA (modify frequency per FRAX score) [facility] Start: 2006 Administration of varicella zoster vaccine Zoster (Shingles) Vaccine (1 of 2) [facility] Start: 2006 Screening for malign ant neoplasm of breast Breast cancer screen [facility] Start: 2006 Shingles vaccine (1 of 2) Shingles vaccine (1 of 2) [facility] Start: 2001 Screening for malign ant neoplasm of colon [facility] Start: 1996 Lipid panel Lipids [facility] Start: 1991 Diabetes screen Diabetes screen [facility] Start: 1975 DTaP,Tdap and Td Vaccines (1 - Tdap) DTaP,Tdap and Td Vaccines (1 - Tdap) [facility] Start: 1975 DTaP/Tdap/Td vaccine (1 - Tdap) DTaP/Tdap/Td vaccine (1 - Tdap) [facility] Start: 1974 Hepatitis C screening Hepatitis C sc reen [facility] Start: 1968 Depression Screen Depression Screen [facility] Start: 06-05-1957 COVID-19 Vaccine (#1) COVID-19 Vacci ne (#1) [facility] Start: 1956 Screening for malign ant neoplasm of colon [facility] Start: 1955 Tobacco Counseling Tobacco Counselin g [facility] End: 12-12-2022 Culture, Urine [facility] Work Phone: Comment on above: 1 Occurrences starti ng 12/12/2022 until 12/12/2022 US Lower extremity - right US foot right Imaging Routine Other specified disorders of synovium, right ankle and foot Ordered: 12/04/2023 [facility] Work Phone: Comment on above: Ordered: 12/04/2023 Immunizations Immunization Date Immunization Notes Care Provider Cristine hunt 08-20-2023 Influenza Vaccine, Quadrivalent, Adjuvanted [facility] 10-02-2022 Pneumococcal Conjuga te 20-valent Adysan Sleek [facility] 10-02-2022 pneumococcal conjuga te vaccine, 7 valent Adysan Sleek [facility] 07-30-2022 Influenza Vaccine, Quadrivalent, Adjuvanted [facility] Payers Date Payer Category Payer Unknown [id number] 2024 Unknown [id number] 2023 Medicaid [id number] 2023 Medicare [id number] 2023 Medicare [id number] 2022 Medicaid [place] [employer] -[place] ONLY [id number] 2022-Present [phone] [address] [place] [address] [id number] 2022 Medicare [id number] [id number] 2017 Medicare [id number] [id number] [id number] 2017 Unknown [id number] 1959 Medicaid [id number] 1959 Medicare [id number] 1959 Unknown [id number] 1956 Unknown [id number] 2.16.840.1.392563.3.579.2.593 1956 Unknown [id number] .16.840.1.456483.3.579.2.593 1956 Unknown [id number] 2.16.840.1.924862.3.579.2.593 1956 Unknown [id number] 2.16.840.1.329644.3.579.2.593 1956 Unknown [id number] 2.16.840.1.738046.3.579.2.593 1956 Unknown [id number] 2.16.840.1.422308.3.579.2.593 1956 Unknown [id number] 2.16.840.1.975143.3.579.2.593 1956 Unknown [id number] 2.16.840.1.963839.3.579.2.593 1956 Unknown [id number] 2.16.840.1.856255.3.579.2.593 1956 Unknown [id number] 2.16.840.1.527620.3.579.2.593 1956 Unknown [id number] 2.16.840.1.488875.3.579.2.173 1956 Unknown [id number] 2.16.840.1.441585.3.579.2.173 1956 Unknown [id number] 2.16.840.1.581319.3.579.2.173 1956 Unknown [id number] 2.16.840.1.739618.3.579.2.173 1956 Unknown [id number] 2.16.840.1.077012.3.579.2.173 1956 Unknown [id number] 2.16.840.1.646191.3.579.2.173 1956 Unknown [id number] 2.16.840.1.848066.3.579.2.173 1956 Unknown [id number] 2.16.840.1.801142.3.579.2.173 1956 Unknown [id number] 2.16.840.1.609587.3.579.2.1286 1956 Unknown [id number] 2.16.840.1.660125.3.579.2.1286 1956 Unknown [id number] 2.16.840.1.926293.3.579.2.1286 1956 Unknown [id number] 2.16.840.1.265851.3.579.2.1259 1956 Unknown [id number] 2.16.840.1.890295.3.579.2.1259 1956 Unknown [id number] 2.16.840.1.783134.3.579.2.1259 1956 Unknown [id number] 2.16.840.1.937239.3.579.2.1259 Social History Date Type Detail Facility Start: 12-12-2022 End: 03-03-2023 Tobacco smoking status NHIS Smokes tobacco daily [employer] Phone: History of tobacco use Cigarette Smoker [facility] [employer] Phone: Start: 12-12-2022 End: 12-11-2023 Cigarettes smoked current (pack per day) - Reported 0.5 [employer] Phone: Start: 12-12-2022 End: 03-03-2023 Tobacco use and exposure Smokeless tobacco non-user [employer] Phone: Start: 12-12-2022 End: 12-11-2023 Alcohol intake Current drinker of alcohol (finding) [employer] Phone: Start: 12-12-2022 Tobacco Comment Smokes 6-8 cigs/day [employer] Phone: Start: 12-12-2022 Alcohol Comment Beer 2-3 every 2 wee ks [employer] Phone: Start: 1955 Sex Assigned At Not on file B ON [employer] Phone: Start: 08-20-2023 End: 02-22-2024 Tobacco use panel [facility] Adolescent depressio n screening assessment 0 [facility] Start: 02-20-2022 Alcohol Comment on weekends, n ot often. [facility] Start: 12-04-2023 Tobacco smoking stat us NHIS Never smoked tobacco [facility] History of tobacco use Passive smoker [facility] Start: 12-04-2023 Alcohol intake Ex-drinker (finding) [facility] How often to you hav e a drink containing alcohol? 2-4 times a month [facility] Start: 12-04-2023 Alcohol Comment coffee daily [facility] Clinical Notes 03-08-2022 to 01-15-2024 Telephone Encounter - Isidra Alexis CMA - 01/15/2024 12:05 PM EDTTelephone Encounter - Isidra Alexis CMA - 01/15/2024 12:05 PM EDTCristobal White DPM - 12/04/2023 4:00 PM EST Note Date & Type Note Facility 01-15-2024 Miscellaneous Notes They went to the wrong pharmacy documented in this encounter [facility] 01-15-2024 Telephone encounter Note They went to the wrong pharmacy [facility] 12-04-2023 History of Presen t illness [...] Bee Venom Anaphylaxis Other reaction(s): Not available Lidiapril Cough Attends Briefs Small Rash Past Medical History: Past Medical History: Diagnosis Date Allergies Anxiety Arthritis Asthma ([facility]) Cervical cancer ([facility] COPD (chronic obstructive pulmonary disease) ([facility]) Depression ([facility]) History of medical problems knee scraping for knee replacement HTN (hypertension) ([facility]) Kidney disease Medications: Current Outpatient Medications: [...] Cristobal White DPM documented in this encounter [facility] 11-17-2023 Note [facility] Cardiology Clinic Note Chief Complaint: Patient here [...] mouth in the morning., Disp: , Rfl: rtugitctuie-rkeiprixd-pwbaljxb 100-62.5-25 mcg blister with device, INHALE 1 [...] normal in s (more content not included)... [facility] 11-17-2023 Miscellaneous Notes Patient called into office requesting Referral Tarun THOMAS for podiatry in [place] I do need a reason (diagnosis is required) to why she wants a referral. Patient would like her toe nails trimmed, she stated that her hand strength isn't there to cut them herself anymore. done documented in this encounter [facility] [employer] 11-17-2023 Telephone encounter Note Patient called into office requesting Referral Tarun White [facility] for [facility]iatry in [place] [facility] 11-17-2023 Telephone encounter Note I do need a reason (diagnosis is required) to why she wants a referral. [facility] 11-17-2023 Telephone encounter Note Patient would like her toe nails trimmed, she stated that her hand strength isn't there to cut them herself anymore. [facility] 11-17-2023 Telephone encounter Note done [facility] 06-25-2023 Note HTN remains uncontro lled therefore script to increase lisinopril to 10 mg daily. Repeat BMP in 1 week Reviewed labs from 06/19/23 and renal function, liver function and cholesterol are normal and well controlled K+ 5.0- will monitor Veronica Flor NP Division of Cardiology, [facility] [phone] Pager- [phone] Email- [email or web address] 06-10-2023 Note Increase lisinopril to 5 mg daily Continue monitoring b/p at home and staff to call in 1-2 weeks to review b/p If remains > 130/80 may transition metoprolol to coreg [facility] 06-10-2023 Note Echo reviewed with fuad prabhakar and noted Mod MV regurg [facility] 06-10-2023 Note Hypertension is unco ntrolled Increase lisinopril to 5 mg daily Continue metoprolol, aldactone and check BMP in 1 week to monitor renal function D/W pt about HTN with voltaren and she is not willing to stop at this time. [facility] 06-10-2023 Note [facility] CARDIOLOGY PROGR ESS NOTE [...] 10 mg by mouth in the morning. oyoxlwpgkdz-iqmvhxzsl-ftzdbddk 100-62.5-25 mcg blister with device INHALE 1 [...] in 1-2 weeks to review B/P log [facility] 06-02-2023 Note Hypertension is unco ntrolled with pt reporting very elevated B/p in the mornings despite starting aldactone. Will add lisinopril in the pm daily for better HTN management [facility] 05-23-2023 Note F/u with PCP [facility] 05-23-2023 Note Tobacco use is uncha nged- pt is not willing to quit smoking at this time [facility] 05-23-2023 Note Stable with metoprolol [facility] 05-23-2023 Note Repeat echo ordered in light of SOB with exertion and MR noted on prior echo [facility] 05-23-2023 Note Hypertension is elev ated continue all meds and will add aldactone to regime Repeat BMP in 1 week to assess renal function and electrolytes and pt voiced understanding [facility] 05-23-2023 Note Stable [facility] 05-23-2023 Note [facility]TP CARDIOLOGY PROGR ESS [...] 10 mg by mouth in the morning. mvvuklhicru-biiqtpdsg-ysylbcxu 100-62.5-25 mcg blister with device INHALE 1 [...] moderate COPD vs asthma Cath 2017 at [facility]: non obstructive cors, possible bridging of [...] Assessment/Plan: Atypical chest (more content not included)... [facility] 05-23-2023 Note Patient here for 1 y [...] All other systems reviewed and are negative. [facility] 07-03-2022 Note PROCEDURE: XR ANKLE RT MIN [...] authenticated by: YANELIS ENGEL Date: 2022-07-03 10:27 [facility] 04-03-2022 Note PROCEDURE: XR ANKLE RT MIN [...] by: YANELIS ENGEL Date: 2022-04-03 15:51 [facility] 04-03-2022 Note PROCEDURE: XR ANKLE RT MIN [...] by: YANELIS ENGEL Date: 2022-04-03 15:51 [facility] 03-08-2022 Note PROCEDURE: XR ELBOW RT MIN 3 VIEWS HISTORY: Pain ; right elbow pain and contusion after falling COMPARISON: None. FINDINGS: BONES:No fracture, acute abnormality, or significant arthropathy. SOFT TISSUES:No visible soft tissue swelling. EFFUSION:None visible. OTHER: Negative. IMPRESSION: 1. No acute bone abnormality. 2. Minimal degenerative changes. Electronically authenticated by: YANELIS ENGEL Date: 2022-03-08 12:09 [facility] Evaluation note Diagnosis Renal calculus Calculus of kidney Gross hematuria documented in this encounter [employer] Phone: evaluation note* Diagnosis Renal calculus Calculus of kidney Gross hematuria documented in this encounter [employer] Phone: evaluation note* Diagnosis Renal calculus Calculus of kidney Gross hematuria documented in this encounter [employer] Phone: evaletdnan note* Diagnosis Renal calculus Calculus of kidney Pre-op testing Preoperative examination, unspecified Renal calculus Calculus of kidney documented in this encounter [employer] Phone: [email or web address] note* Diagnosis Renal calculus Calculus of kidney Pre-op testing Preoperative examination, unspecified Renal calculus Calculus of kidney documented in this encounter [employer] Phone: [email or web address] note* Diagnosis Hx of onychomycosis- Primary [facility] Diagnosis DJD (degenerative joint disease), ankle and foot, right- Primary Other specified disorders of synovium, right ankle and foot Onychomycosis Dermatophytosis of nail Toe pain, bilateral documented in this encounter [facility]* Diagnosis Chronic bronchitis with emphysema ([facility]) Obstructive chronic bronchitis without exacerbation Arthritis, multiple joint involvement Unspecified arthropathy, multiple sites Anxiety and depression Fibromyalgia Unspecified myalgia and myositis Acquired hypothyroidism Unspecified hypothyroidism Benign essential HTN Primary insomnia Persistent disorder of initiating or maintaining sleep [facility] Diagnosis Chronic bronchitis with emphysema ([facility]) Obstructive chronic bronchitis without exacerbation Arthritis, multiple joint involvement Unspecified arthropathy, multiple sites Anxiety and depression Fibromyalgia Unspecified myalgia and myositis Acquired hypothyroidism Unspecified hypothyroidism Benign essential HTN Primary insomnia Persistent disorder of initiating or maintaining sleep History of kidney stones documented [facility] encounter [facility] SystemInstructionsNot on filedocumented in this encounter [facility] SystemInstructionsNot on filedocumented in this encounter [facility] SystemInstructionsNot on filedocumented in this encounter [facility] SystemReason for referral (narrative)* Consultation (Routine) - Pending Review Specialty Diagnoses / Procedures Referred By Gregor prabhakar Referred To Contact Podiatry Diagnoses Hx of onychomycosis Jairo Daley APRN-CNP [address] [place] [address] Cristobal White DPM [address] [address] Referral ID Status Reason Start Date Expiration Date Visits Requested Visits Authorized [id number] Pending Review Specialty Services Required 11/17/2023 11/16/2024 1 1 [facility] Summary Purpose Family History No Family [...] Referral Specialty Diagnoses / Procedures Referred By Gregor prabhakar Referred To Contact Radiology Diagnoses Renal calculus Gross hematuria Renal Calculus [N20.0] Gross Hematuria [R31.0] Procedures CT UROGRAM CHG CT ABDOMEN & PELVIS W/O CONTRST 1/> [place] [id number] - CHG CT ABDOMEN & PELVIS W/O CONTRST 1/> BODY RE Jason Au MD [address] [facility], [address] [place] [address] Referral ID Status Reason Start Date Expiration Date Visits Re quested Visits Authorized [id number] Closed 12/12/2022 12/12/2023 1 1 Specialty Diagnoses / Procedures Referred By Gregor prabhakar Referred To Contact Cardiology Diagnoses Renal calculus Pre-op testing Procedures EKG 12 Lead Bo Black, [employer] [address] [place] [address] Referral ID Status Reason Start Date Expiration Date Visits Re quested Visits Authorized [id number] Open 01/02/2023 01/02/2024 1 1 Additional Source Comments INFORMATION SOURCE (unrecogn ized section and content) DATE CREATED AUTHOR 11/26/2021 [facility] DATE CREATED AUTHOR AUTHOR'S ORGANIZ ATION 09/22/2022 [facility] DATE CREATED AUTHOR AUTHOR'S ORGANIZ ATION 03/03/2023 [facility] DATE CREATED AUTHOR AUTHOR'S ORGANIZ ATION 04/27/2023 [facility] DATE CREATED AUTHOR AUTHOR'S ORGANIZ ATION 11/21/2023 [facility] DATE CREATED AUTHOR AUTHOR'S ORGANIZ ATION 12/19/2023 [facility] DATE CREATED AUTHOR AUTHOR'S ORGANIZ ATION 04/12/2024 [facility] DATE CREATED AUTHOR AUTHOR'S ORGANIZ ATION 05/05/2024 [facility] EPIC Care Teams (unrecognized sec tion and content) Staff Pharmacist Hospital Relationship Specialty Start Date End Date Jairo Daley [employer] [address] [place] [address] PCP - General 12/12/22 Staff Pharmacist Hospital Relationship Specialty Start Date End Date Jairo Daley [employer] [address] [place] [address] PCP - General 12/12/22 Staff Pharmacist Hospital Relationship Specialty Start Date End Date Jairo Daley [employer] [address] [place] [address] PCP - General 12/12/22 Staff Pharmacist Hospital Relationship Specialty Start Date End Date Jairo Daley APRN [facility] [address] [place] [address] PCP - General 12/12/22 Staff Pharmacist Hospital Relationship Specialty Start Date End Date [facility] [address] [place] [address] PCP - General Family Medicine 02/20/22 Staff Pharmacist Hospital Relationship Specialty Start Date End Date [facility] [address] [place] [address] PCP - General Family Medicine 02/20/22 Staff Pharmacist Hospital Relationship Specialty Start Date End Date [facility] [address] [place] [address] PCP - General Family Medicine 02/20/22 Reason for Visit (unrecogniz ed section and content) Specialty Diagnoses / Procedures Referred By Gregor prabhakar Referred To Contact Radiology Diagnoses Renal calculus Gross hematuria Renal Calculus [N20.0] Gross Hematuria [R31.0] Procedures CT UROGRAM CHG CT ABDOMEN & PELVIS W/O CONTRST 1/> [place] [id number] - CHG CT ABDOMEN & PELVIS W/O CONTRST 1/> BODY RE Jason Au MD [address] [place] [address], [address] [place] [address] Referral ID Status Reason Start Date Expiration Date Visits Re quested Visits Authorized [id number] Closed 12/12/2022 12/12/2023 1 1 Reason Comments DM Foot Care Dm Nails/ fungus Specialty Diagnoses / Procedures Referred By Contac t Referred To Contact Podiatry Diagnoses Hx of onychomycosis Procedures AMB REFERRAL TO PODIATRY Jairo Daley CRNP [address] [place] [address] Cristobal White DPM [address] [place] [address] Referral ID Status Reason Start Date Expiration Date Visits Re quested Visits Authorized [id number] Closed 11/17/2023 11/16/2024 1 1 Reason Onset [...] BE BASED ON THE PRIMARY CLINICAL RECORDS. [facility] [employer] provides no warranty or guarantee of the accuracy or completeness of information in this document.
--- NOTE | 2024-06-02 07:58 | CT_ITS ---
[address] [address] Patient Name: FRANKO NUNEZ MRN: [id number] date: 1955 Sex: F Assigned Patient Location: CT Current Patient Location: Accession/Order Number: [id number] Exam Date: 06/02/2024 08:08 Report Date: 06/03/2024 06:43 At the request of: FAN HOWARD Procedure: CT lung screening low-dose EXAMINATION: CT lung screening low-dose HISTORY: Screening Malignant Neoplasm Z12.2 COMPARISON: CT lung cancer screening 05/29/2023 TECHNIQUE: Axial, Coronal, and Sagittal images were created without the administration of IV contrast material. Dose reduction techniques were achieved by using automated exposure control and/or adjustment of mA and/or kV according to patient size and/or use of iterative reconstruction technique. FINDINGS: LUNGS: Moderate emphysematous changes and a few tiny 3 mm nodules scattered within the lungs; unchanged. PLEURA: No mass, effusion, or pneumothorax. VASCULATURE: No abnormality. ALISIA: No mass or pathologic adenopathy. MEDIASTINUM: No mass or pathologic adenopathy. CARDIAC: Trace amount pericardial fluid. Coronary Artery calcifications: Coronary calcifications are mild. AORTA: No aneurysm or dissection. CHEST WALL: No mass or axillary adenopathy BONES: No bone lesion or fracture. LIMITED ABDOMEN: No suspicious findings. Limited images of the upper abdomen. OTHER: Negative. CT/CT lung screening low-dose IMPRESSION: 1. Lung-RADS 2- Benign Appearance or Behavior. Nodules with a very low likelihood of becoming a clinically active cancer due to size or lack of growth. Follow-up CT Chest in 1 year. 2. Trace amount of pericardial fluid; new since prior study. Electronically authenticated by: YANELIS ENGEL Date: 06/03/2024 06:43
== END 2024-06-02 07:49 | disposition home or self-care (01) ==
LOC: CT 07:48
PROVIDERS: PCP Nurse Practitioner; Visit Provider Internal Medicine
DX: F17.219 Nicotine dependence, cigarettes, with unspecified nicotine-induced disorders (principal); Z12.2 Encounter for screening for malignant neoplasm of respiratory organs
CPT/HCPCS: 71271

== ENCOUNTER 2024-06-02 08:31 | Outpatient (OUT) | payer OTHER, SELFPAY ==
--- OUTSIDE RECORDS SUMMARY | 2024-06-02 08:49 | XMS_ITS | CCD ---
Author Organization [facility] Care Team Providers Care Hospital Liaison Name Role Phone RANDAL ORTIZ Attending Unavailable Daley IT SALES REPRESENTATIVE - SOLAR FIELD SERVICE TECHNICIAN, Jairo Cabrera Primary Care [facility] ider BRAULIO LASSITER Consulting Unavailable AJIT ., [...] DALEY, JAIRO J Primary Care Unavailable Daley IT SALES REPRESENTATIVE-SOLAR FIELD SERVICE TECHNICIAN, Jairo J Primary Care Provid er VERONICA FLOR Attending Unavailable [facility]V Attending Unavailable VERONICA FLOR Attending [...] adverse reactions to drug 3 Rash [facility] (1 source) bee venom Drug allergy (disorder) 6 [facility] (1 source) Latex Drug allergy (disorder) [facility] (6 sources) Adhesive agent; Translations: [ADHESIVE] Propensity to adverse reactions to drug 3 Rash [facility] (6 sources) Lisinopril; Translations: [LISINOPRIL] Drug Allergy 3 Cough [facility] (6 sources) Bee Venom Protein (Honey Bee); Translations: [BEE VENOM PROTEIN (HONEY BEE)] Propensity to adverse reactions to drug 3 [facility] (2 sources) Honey bee venom Allergy to substance 3 Anaphylaxis [facility] (2 sources) Lisinopril Propensity to adverse reactions 3 Cough [facility] (2 sources) Attends Briefs Small Drug Intolerance 3 Rash [facility] NEGATED: Highlighted row has been ruled out! (5 sources) Other Propensity to adverse reactions [address] 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 Znfsns-nd-mzytno ratio is >=1.00. Performed By: #### T LOIDA, 36430-4 #### [facility] ([id number]) [address] [place] [address], [address] [address] HCV RNA PAULY+probe Qnon 12-11 HCV RNA QUANT PCR [id number] IU/mL Abnormal Undetected [facility] Comment on above: Result Comment: NOTE Result in log IU/mL is 7.28. ADDITIONAL INFORMATION The quantification range of this assay is 15 to 100,000,000 IU/mL (1.18 log to 8.00 log IU/mL). Testing was performed using the diomedes HCV test ([employer] Test Performed by: [place] [address] Foot Worker: Raj Bhatti M.D. Ph.D.; CLIA# [id number] Performed By: #### Evens MARISCAL, 99405-4 #### [facility] ([id number]) [address] [place] [address] THYROID PROFILEon 12-11-2023 Free T4 [Mass/Vol] 1.29 ng/dL Normal 0.61-1.60 [facility] Comment on above: Performed By: #### T LOIDA, 61675-3 #### [facility] ([id number]) [address] [place] [address] TSH 0.45 uIU/mL Low 0.49-4.67 [facility] Comment on above: Performed By: #### T LOIDA, 72916-8 #### [facility] ([id number]) [address] [place] [address] Office Visiton 11-17-2023 Follow-up visit [id number] Robyn Thorpe 1955 Date Provider Department Center 11/17/2023 271-PRANAV ORTEZ GEE Alejandro Family History Problem Relation Age of Onset Diabetes Mother Coronary artery disease Mother Hypertension Mother Coronary artery disease Father Hypertension Father Other Father Coronary artery disease Brother Family Status - Relation Status Age at Mother Father Brother Level of Service:13174 [place] OFFICE/OUTPATIENT ESTABLISHED LOW MDM 20 MIN [facility] Orders Onlyon 11-17-2023 Orders Only [id number] Robyn Thorpe 1955 Date Provider Department Center 11/17/2023 895-PAT BELTRÁN GEE [facility] Family History Problem Relation Age of Onset Diabetes Mother Coronary artery disease Mother Hypertension Mother Coronary artery disease Father Hypertension Father Other Father Coronary artery disease Brother Family Status - Relation Status Age at Mother Father Brother [facility] 36on 07-03-2023 36 Patient stopped by the office today c/o cough with lisinopril. Can we switch her to losartan? Normal [facility] Orders Onlyon 06-25-2023 Orders Only [id number] Robyn Thorpe 1955 Provider Department [place] 06/25/2023 VERONICA BELLO GEE Parikh Cedric Family History Problem Relation Age of Onset Diabetes Mother Coronary artery disease Mother Hypertension Mother Coronary artery disease Father Hypertension Father Other Father Coronary artery disease Brother Family Status - Relation Status Age at Mother Father Brother [facility] 37on 06-10-2023 37 Increase lisinopril to 5 mg daily ( take 2 of the 2.5 mg tabs until the bottle is empty and then next bottle will be the 5 mg tabs) Have blood checked in 1 week- to check kidney function and electrolytes Continue all other meds [facility] Office Visiton 06-10-2023 Follow-up visit [id number] Robyn Thorpe 1955 Provider Department Center 06/10/2023 VERONICA BELLO GEE Alejandro Family History Problem Relation Age of Onset Diabetes Mother Coronary artery disease Mother Hypertension Mother Coronary artery disease Father Hypertension Father Other Father Coronary artery disease Brother Family Status - Relation Status Age at Mother Father Brother Level of Service:47915 [place] OFFICE/OUTPATIENT ESTABLISHED MOD MDM 30-39 MIN Reason for Visit and Comments: Follow-up [[id number]] [facility] Telephoneon 06-10-2023 Telephone [id number] Robyn Thorpe Rick 1955 F Date Provider Department Center 06/10/2023 PAT BAL Family History Problem Relation Age of Onset Diabetes Mother Coronary artery disease Mother Hypertension Mother Coronary artery disease Father Hypertension Father Other Father Coronary artery disease Brother Family Status - Relation Status Age at Mother Father Brother [facility] Orders Onlyon 06-02-2023 Orders Only [id number] Robyn Thorpe Rick 1955 F Date Provider Department Center 06/02/2023 VERONICA BELLO GEE Thurman Family History Problem Relation Age of Onset Diabetes Mother Coronary artery disease Mother Hypertension Mother Coronary artery disease Father Hypertension Father Other Father Coronary artery disease Brother Family Status - Relation Status Age at Mother Father Brother [facility] 36on 05-30-2023 36 Aline- does she have a f/U scheduled? [facility] 37on 05-23-2023 37 Start Spironolactone/Aldac tone 1 tab daily in the morning for high blood pressure and water retention Please have blood drawn next week to check kidney function and electrolytes. Continue to take all other medications [facility] Office Visiton 05-23-2023 Follow-up visit [id number] IlaKarsonRobyn J 1955 F Date Provider Department Center 05/23/2023 VERONICA BELLO GEE Alejandro Family History Problem Relation Age of Onset Diabetes Mother Coronary artery disease Mother Hypertension Mother Coronary artery disease Father Hypertension Father Other Father Coronary artery disease Brother Family Status - Relation Status Age at Mother Father Brother Level of Service:22583 [place] OFFICE/OUTPATIENT ESTABLISHED MOD MDM 30-39 MIN [facility] XR ABDOMEN (KUB) (SINGLE AP [...] Олег Beltrán DO 04/27/23 Final result Normal [facility] OPERATIVE REPORTon OPERATIVE REPORT [address] [address] OPERATIVE REPORT PATIENT NAME: ROBYN THORPE : 1955 MED REC NO: [id number] ROOM: ACCOUNT NO: [id number] ADMIT DATE: 01/21/2023 PROVIDER: Jason Au DATE OF PROCEDURE: 01/21/2023 SURGEON: Dr. Jason Au. PRECISION AIRCRAFT STRUCTURE ASSEMBLER: None. PREOPERATIVE DIAGNOSIS: Right ureteral calculus. POSTOPERATIVE [...] obtained. The patient was transferred from the [facility] onto the operating room table, [...] awoken from general anesthesia, transferred to the [facility], and taken to the PACU in satisfactory condition by Nursing and Anesthesia Teams. PLAN: The patient will be discharged home per PACU criterion and follow up with us in three months with a repeat KUB. JASON AU [id number] Doc#: [id number] CC: Normal [facility] Basic Metabolic Panelon 12-18 Anion gap [Moles/Vol] 8 mmol/L Low 9 - 17 mmol/L [facility] Calcium [Mass/Vol] 9.4 mg/dL 8.6 - 10. 4 mg/dL [facility] Chloride [Moles/Vol] 108 mmol/L High 98 - 107 mmol/L [facility] CO2 [Moles/Vol] 25 mmol/L 20 - 31 mmol/L [facility] Creatinine [Mass/Vol] 0.68 mg/dL 0.50 - 0.90 mg/dL [facility] GFR/1.73 sq M.predicted MDRD (S/P/Bld) [Vol rate/Area] - PINF [facility] Comment on above: These results are [...] mg/dL High 70 - 99 mg/dL [facility] Interpretation and review of laboratory results Abnormal [facility] Potassium [Moles/Vol] 3.6 mmol/L Low 3.7 - 5.3 mmol/L [facility] Sodium [Moles/Vol] 141 mmol/L 135 - 144 mmol/L [facility] Urea nitrogen [Mass/Vol] 20 mg/dL 8 - 23 mg/dL [facility] Urea nitrogen/Creatinine (Bld) [Mass ratio] 29 High 9 - 20 [facility] Basic Metabolic Profon 01-03 Anion gap [Moles/Vol] 8 mmol/L Low 9-17 [facility] Comment on above: Performed By: #### B MP, CDP #### [facility] [address] [place] [address] Foot Worker: Xavier Cuevas MD BUN/CRE Ratio 29 High 9-20 [facility] Comment on above: Performed By: #### B MP, CDP #### [facility] [address] [place], [place] 1122383 Foot Worker: Xavier Cuevas MD Calcium [Mass/Vol] 9.4 mg/dL Normal 8.6-10.4 [facility] Comment on above: Performed By: #### B MP, CDP #### [facility] [address] [place], [place] 7554483 Foot Worker: Xavier Cuevas MD Chloride [Moles/Vol] 108 mmol/L High 98-107 [facility] Comment on above: Performed By: #### B KARINA, CDP #### [facility] [address] [place] [address] Foot Worker: Xavier Cuevas MD CO2 [Moles/Vol] 25 mmol/L Normal 20-31 [facility] Comment on above: Performed By: #### B KARINA, CDP #### [facility] [address] [place] [address] Foot Worker: Xavier Cuevas MD Creatinine [Mass/Vol] 0.68 mg/dL Normal 0.50-0.90 [facility] Comment on above: Performed By: #### B KARINA, CDP #### [facility] [address] [place] [address] Foot Worker: Xavier Cuevas MD GFR/1.73 sq M.predicted among non-blacks MDRD (S/P/Bld) [Vol rate/Area] mL/min/{1.73_m2} Normal >60 [facility] Comment on above: Result Comment: These results [...] Performed By: #### B KARINA, CDP #### [facility] [address] [place], [place] [id number] Foot Worker: Xavier Cuevas MD Glucose [Mass/Vol] 109 mg/dL High 70-99 [facility] Comment on above: Performed By: #### B KARINA, CDP #### [facility] [address] [place], [place] [id number] Foot Worker: Xavier Cuevas MD Potassium [Moles/Vol] 3.6 mmol/L Low 3.7-5.3 [facility] Comment on above: Performed By: #### B KARINA, CDP #### [address] [place], [place] [id number] Foot Worker: Xavier Cuevas MD Sodium [Moles/Vol] 141 mmol/L Normal 135-144 [facility] Comment on above: Performed By: #### B KARINA, CDP #### [address] [place], [place] [id number] Foot Worker: Xavier Cuevas MD Urea nitrogen [Mass/Vol] 20 mg/dL Normal 8-23 [facility] Comment on above: Performed By: #### B KARINA, CDP #### [facility] [address] [place] [address] [place], [place] [id number] Foot Worker: Xavier Cuevas MD CBC with Auto Differentialon 01-03-2023 Absolute Eos # 0.20 [facility] Absolute Immature Granulocyte 0.03 [facility] Absolute Lymph # 1.05 Low [facility] Absolute [place] # 0.78 [facility] Basophils (Bld) [#/Vol] 0.04 10*3/uL [facility] Basophils/100 WBC (Bld) 1 % 0 - 2 % [facility] Eosinophils/100 WBC (Bld) 3 % 1 - 4 % [facility] Hematocrit (Bld) [Volume fraction] 43.3 % 36.3 - 47.1 % [facility] Hemoglobin (Bld) [Mass/Vol] 14.3 g/dL 11.9 - 15.1 g/dL [facility] Immature granulocytes/100 WBC (Bld) 1 % High [address] [facility] Interpretation and review of laboratory results Abnormal [facility] Lymphocytes/100 WBC (Bld) 16 % Low 24 - 43 % [facility] MCH (RBC) [Entitic mass] 28.9 pg 25.2 - 33.[address] [facility] MCHC (RBC) [Mass/Vol] 33.0 g/dL 28.4 - 34.8 g/dL [facility] MCV (RBC) [Entitic vol] 87.5 fL 82.6 - 102.[address] [facility] Monocytes/100 WBC (Bld) 12 % 3 - 12 % [facility] NRBC Automated 0.0 0.0 per [address] [facility] Platelet distribution width (Bld) [Ratio] 13.2 % 11.8 - 14.4 % [facility] Platelet mean volume (Bld) [Entitic vol] 10.9 fL 8.1 - 13.[address] [facility] Platelets (Bld) [#/Vol] 227 10*3/uL [facility] RBC (Bld) [#/Vol] 4.95 10*6/uL 3.95 - 5.1 1 m/uL [facility] Segmented neutrophils/100 WBC (Bld) 67 % High 36 - 65 % [facility] Segs Absolute 4.[address] [facility] WBC (Bld) [#/Vol] 6.5 10*3/uL [facility] CBC with Diffon 01-03-2023 Abs. Basophil 0.04 k/uL Normal 0.00-0.20 [facility] Comment on above: Performed By: #### B MP, CDP #### [facility] [address] [place] [address] Foot Worker: Xavier Cuevas MD Abs.Imm.Granulocyte 0.03 k/uL Normal 0.00-0.30 [facility] Comment on above: Performed By: #### B KARINA, CDP #### [facility] [address] [place] [address] [place], [place] [id number] Foot Worker: Xavier Cuevas MD Abs.Neutrophil (Seg) 4.37 k/uL Normal 1.50-8.10 [facility] Comment on above: Performed By: #### B KARINA, CDP #### [address] [place] [id number] Foot Worker: Xavier Cuevas MD Basophils/100 WBC (Bld) 1 % Normal 0-2 [facility] Comment on above: Performed By: #### B KARINA, CDP #### [address] [place], [place] [address] Foot Worker: Xavier Cuevas MD Eosinophils (Bld) [#/Vol] 0.20 10*3/uL Normal 0.00-0.44 [facility] Comment on above: Performed By: #### B KARINA, CDP #### [address] [place], [facility] Foot Worker: Xavier Cuevas MD Eosinophils/100 WBC (Bld) 3 % Normal 1-4 [facility] Comment on above: Performed By: #### B KARINA, CDP #### [facility] [address] [place] [address] Dr[place], [facility]83 Foot Worker: Xavier Cuevas MD Erythrocyte distribution width (RBC) [Ratio] 13.2 % Normal 11.8-14.4 [facility] Comment on above: Performed By: #### B KARINA, CDP #### [address] [place], [place] 3940383 Foot Worker: Xavier Cuevas MD Hematocrit (Bld) [Volume fraction] 43.3 % Normal 36.3-47.1 [facility] Comment on above: Performed By: #### B KARINA, CDP #### [facility] [address] [place] [address] Dr[place], [place] 8250183 Foot Worker: Xavier Cuevas MD Hemoglobin (Bld) [Mass/Vol] 14.3 g/dL Normal 11.9-15.1 [facility] Comment on above: Performed By: #### B MP, CDP #### [facility] [address] [place] [address] Dr[place], [place] [id number] Foot Worker: Xavier Cuevas MD Immature granulocytes/100 WBC (Bld) 1 % High 0 [facility] Comment on above: Performed By: #### B KARINA, CDP #### [address] [place], [place] 0460783 Foot Worker: Xavier Cuevas MD Lymphocytes (Bld) [#/Vol] 1.05 10*3/uL Low 1.10-3.70 [facility] Comment on above: Performed By: #### B KARINA, CDP #### [address] [place], [place] 5324483 Foot Worker: Xavier Cuevas MD Lymphocytes/100 WBC (Bld) 16 % Low 24-43 [facility] Comment on above: Performed By: #### B KARINA, CDP #### [facility] [address] [place] [address] Dr[place], [facility]83 Foot Worker: Xavier Cuevas MD MCH (RBC) [Entitic mass] 28.9 pg Normal 25.2-33.5 [facility] Comment on above: Performed By: #### B KARINA, CDP #### [facility] [address] [place] [address] [place] [address] Foot Worker: Xavier Cuevas MD MCHC (RBC) [Mass/Vol] 33.0 g/dL Normal 28.4-34.8 [facility] Comment on above: Performed By: #### B KARINA, CDP #### [facility] [address] [place], [place] [id number] Foot Worker: Xavier Cuevas MD MCV (RBC) [Entitic vol] 87.5 fL Normal 82.6-102.9 [facility] Comment on above: Performed By: #### B MP, CDP #### [facility] [address] [place], [place] 7439683 Foot Worker: Xavier Cuevas MD Monocytes (Bld) [#/Vol] 0.78 10*3/uL Normal 0.10-1.20 [facility] Comment on above: Performed By: #### B KARINA, CDP #### [address] [place], [place] [address]83 Foot Worker: Xavier Cuevas MD Monocytes/100 WBC (Bld) 12 % Normal 3-12 [facility] Comment on above: Performed By: #### B KARINA, CDP #### [address] [place], [place] 7938583 Foot Worker: Xavier Cuevas MD Neutrophil (Seg) 67 % High 36-65 [facility] Comment on above: Performed By: #### B MP, CDP #### [address] [place], [place] 856[address]83 Foot Worker: Xavier Cuevas MD NRBC Automated 0.0 per 100 WBC Normal 0.0 [facility] Comment on above: Performed By: #### B MP, CDP #### [facility] [address] [place], [place] 1027083 Foot Worker: Xavier Cuevas MD Platelet mean volume (Bld) [Entitic vol] 10.9 fL Normal 8.1-13.5 [facility] Comment on above: Performed By: #### B MP, CDP #### [address] [place] [address] Foot Worker: Xavier Cuevas MD Platelets (Bld) [#/Vol] 227 10*3/uL Normal 138-453 [facility] Comment on above: Performed By: #### B MP, CDP #### [facility] [address] [place] [address] Foot Worker: Xavier Cuevas MD RBC (Bld) [#/Vol] 4.95 10*6/uL Normal 3.95-5.11 [facility] Comment on above: Performed By: #### B MP, CDP #### [facility] [address] [place], [place] 9377283 Foot Worker: Xavier Cuevas MD WBC (Bld) [#/Vol] 6.5 10*3/uL Normal 3.5-11.3 [facility] Comment on above: Performed By: #### B MP, CDP #### [facility] [address] [place], [place] 3239783 Foot Worker: Xavier Cuevas MD EKG 12 LeadOrdered By: Enrique Quezada on 01-03-2023 Atrial Rate 64 BPM [employer] Phone: P [place] 75 degrees [employer] Phone: P-R Interval 146 ms [employer] Phone: Q-T Interval 480 ms [employer] Phone: QRS Duration 130 ms [employer] Phone: QTc Calculation (Bazett) 495 ms [employer] [employer] Phone: R [place] 3 degrees [employer] Phone: T [place] 31 degrees [employer] Phone: Ventricular Rate 64 BPM [facility] [employer] Phone: [facility] [employer] Phone: EKG 12 Leadon 01-03-2023 Normal sinus rhythm Right bundle branch block Abnormal ECG No previous ECGs available Confirmed by YANELIS QUEZADA ([id number]) on 01/03/2023 11:52:02 PM [facility] Yanelis Quezada MD - 01/03/2023 Normal sinus rhythm Right bundle branch block Abnormal ECG No previous ECGs available Confirmed by YANELIS QUEZADA ([id number]) on 01/03/2023 11:52:02 PM [facility] [employer] Work Phone: BUN & Creatinineon 3 Creatinine [Mass/Vol] 0.78 mg/dL 0.50 - 0.90 mg/dL [facility] GFR/1.73 sq M.predicted MDRD (S/P/Bld) [Vol rate/Area] - PINF [facility] Comment on above: These results are [...] [Mass/Vol] 22 mg/dL 8 - 23 mg/dL [facility] BUN + Creatinineon 3 Creatinine [Mass/Vol] 0.78 mg/dL Normal 0.50-0.90 [facility] Comment on above: Performed By: #### B [facility] #### [facility] [address] [place] [address] Foot Worker: Xavier Cuevas MD GFR/1.73 sq M.predicted among non-blacks MDRD (S/P/Bld) [Vol rate/Area] mL/min/{1.73_m2} Normal >60 [facility] Comment on above: Result Comment: These results [...] secretion. Performed By: #### B UNCRT #### [facility] [address] [place], [place] 9[address]7783 Foot Worker: Xavier Cuevas MD Urea nitrogen [Mass/Vol] 22 mg/dL Normal 8-23 [facility] Comment on above: Performed By: #### B UNCRT #### [facility] [address] [place] [address] Foot Worker: Xavier Cuevas MD CT UROGRAMon 12-26-2022 CT [...] Katelyn Aceves MD 12/26/22 Final result Normal [facility] 1. Bilateral nonobstructing nephroliths larger on the right side of 6.5 mm. No ureteric obstruction. 2. Mild hepatic steatosis. Granulomas in liver and spleen. 3. Atherosclerotic disease. 4. Postsurgical changes lower lumbar spine. Other findings as above. [facility] EXAMINATION: CT UROGRAM 12/26/2022 1:23 [...] acute osseous or subcutaneous soft tissue abnormality. [facility] Katelyn Aceves MD - 12/26/2022 [...] lower lumbar spine. Other findings as above. [employer] Phone: Radiology Study observation (narrative) [employer] Phone: CT UROGRAMOrdered By: Katelyn wilkes on 12-26-2022 [employer] Phone: Cult,Urineon 12-13-2022 Cult,Urine Specimen Description .CLEAN CATCH URINE Culture NO SIGNIFICANT GROWTH Report Status FINAL 12/13/2022 [facility] Comment on above: Performed By: #### U RC #### [facility] [address] [place], [place] 4448[address] Foot Worker: Richard Farias MD [facility] [address] [place] [address] [place], [place] 3708783 Foot Worker: Xavier Cuevas MD Urinalysis w/ Microon 2022 Bacteria 2+ Abnormal NONE [facility] Comment on above: Performed By: #### U AMIC #### [facility] [address] [place] [address] [place], [place] 2557483 Foot Worker: Xavier Cuevas MD Bilirubin, SemiQt,Ur Negative Normal NEG [facility] Comment on above: Performed By: #### U AMIC #### [facility] [address] [place] [address] [place], [place] 2245783 Foot Worker: Xavier Cuevas MD Blood, Urine TRACE Abnormal NEG [facility] Comment on above: Performed By: #### U AMIC #### [facility] [address] [place] [address] [place], [place] [id number] Foot Worker: Xavier Cuevas MD Clarity (U) Clear Normal CLEAR [facility] Comment on above: Performed By: #### U AMIC #### [facility] [address] [place] [address] Dr. [place], [place] [id number] Foot Worker: Xavier Cuevas MD Color (U) Yellow Normal YEL [facility] Comment on above: Performed By: #### U AMIC #### [facility] [address] [place] [address] [place]. [place], [place] [id number] Foot Worker: Xavier Cuevas MD Epithelial cells LM Ql (Urine sed) 2 TO 5 Normal 0-25 [facility] Comment on above: Performed By: #### U AMIC #### [facility] [address] [place] [address] Dr. [place], [place] [id number] Foot Worker: Xavier Cuevas MD Glucose Ql (U) Negative Normal NEG [facility] Comment on above: Performed By: #### U AMIC #### [facility] [address] [place] [address] Dr. [place], [facility]83 Foot Worker: Xavier Cuevas MD Ketones Ql (U) TRACE Abnormal NEG [facility] Comment on above: Performed By: #### U AMIC #### [facility] [address] [place] [address] [place] [address] Foot Worker: Xavier Cuevas MD Leukocyte esterase Test strip Ql (U) Negative Normal NEG [facility] Comment on above: Performed By: #### U AMIC #### [facility] [address] [place] [address] [place]. [place] [id number] Foot Worker: Xavier Cuevas MD Mucus Strands 1+ Abnormal NONE [facility] Comment on above: Performed By: #### U AMIC #### [facility] [address] [place] [address] [place] [address] Foot Worker: Xavier Cuevas MD Nitrite,Ur Negative Normal NEG [facility] Comment on above: Performed By: #### U AMIC #### [facility] [address] [place] [address] Dr. [place] [id number] Foot Worker: Xavier Cuevas MD PH,Ur 6.0 Normal 5.0-9.0 [facility] Comment on above: Performed By: #### U AMIC #### [facility] [address] [place] [address] [place] [address] Foot Worker: Xavier Cuevas MD Protein Ql (U) 1+ Abnormal NEG [facility] Comment on above: Performed By: #### U AMIC #### [facility] [address] [place] [address] Dr. [place] [id number] Foot Worker: Xavier Cuevas MD Spec. [place],Ur 1.025 High 1.010-1.020 [facility] Comment on above: Performed By: #### U AMIC #### [facility] [address] [place], [place] 1839283 Foot Worker: Xavier Cuevas MD Urine RBC's 5 TO 10 Normal 0-2 [facility] Comment on above: Performed By: #### U AMIC #### [facility] [address] [place], [place] [id number] Foot Worker: Xavier Cuevas MD Urine WBC's 0 TO 2 Normal 0-5 [facility] Comment on above: Performed By: #### U AMIC #### [facility] [address] [place], [place] [id number] Foot Worker: Xavier Cuevas MD Urobilinogen,Ur Normal Normal NORM [facility] Comment on above: Performed By: #### U AMIC #### [facility] [address] [place] [address] Foot Worker: Xavier Cuevas MD Urinalysis with Microscopico n 12-12-2022 Bacteria, UA 2+ Abnormal None [facility] Bilirubin Urine Negative NEGATIVE [facility] Color, UA Yellow Yellow [facility] Epithelial Cells UA 2 TO 5 [facility] Glucose Auto test strip (U) [Mass/Vol] Negative NEGATIVE [facility] Interpretation and review of laboratory results Abnormal [facility] Ketones (U) [Mass/Vol] TRACE Abnormal NEGATIVE [facility] Leukocyte esterase Auto test strip Ql (U) Negative NEGATIVE [facility] Mucus, UA 1+ Abnormal None [facility] Nitrite Auto test strip Ql (U) Negative NEGATIVE [facility] Protein (U) [Mass/Vol] 6.0 mg/dL 5.0 - 9.0 [facility] Protein (U) [Mass/Vol] 1+ Abnormal NEGATIVE [facility] RBC clumps Auto (Urine sed) [#/Area] 5 TO [address] [facility] Specific [place], UA 1.025 High 1.010 - 1.[address] [facility] Turbidity UA Clear Clear [facility] Urine Hgb TRACE Abnormal NEGATIVE [facility] Urobilinogen, Urine Normal Normal [facility] WBC, UA 0 TO [address] [facility] XR RIBS LT PA Sophia 3 XR RIBS LT PA CH EXAM: XR RIBS LT PA CH HISTORY: Rib pain COMPARISON: 05/28/2022 TECHNIQUE: Four views of the left ribs. FINDINGS: No rib fracture indentified. The lungs are clear. IMPRESSION: 1. No acute rib fracture identified. Electronically authenticated by: JANEEN POOLE Date: 2022-12-03 10:28 Normal [facility] MRI BRAIN WO W CONon 023 MRI [...] YANELIS ENGEL Date: 2022-10-22 13:55 Normal [facility] CREATININEon 10-21-2022 Creatinine [Mass/Vol] 0.94 mg/dL Normal 0.55-1.02 [facility] Comment on above: Performed By: #### C HUGH ####[facility] [address] [place] [address]DrCedric Gordon EGFR-AF PERUVIAN >60 Normal >=60 [facility] Comment on above: Performed By: #### C HUGH ####[facility] [address] [place], [place] [address]RuCedric Gordon EGFR-NON AF PERUVIAN =60 Normal >=60 [facility] Comment on above: Performed By: #### C HUGH ####[facility] [address] [place], [place] [address]Bz. Tapan Gordon MG MAMM SCREEN 3D NICKOLAS CADon 08-13-2022 MG MAMM SCREEN 3D NICKOLAS CAD Patient: ROBYN THORPE Exam Date: 08/13/2022 : 1955 Gender:F Ordering : JAIRO DALEY Admission #: [id number] Family : Order #: [id number] CLICK HERE TO VIEW EXAM RADIOLOGY REPORT [...] kidney cancer at age 65. LOCATION: [facility] BREAST COMPOSITION: Scattered areas fibroglandular density. FINDINGS: [...] MD on 08/14/2022 at 07:58 Normal [facility] XR DEXA BONE DENSITYon 08-13 XR DEXA [...] by: YANELIS ENGEL Date: 2022-08-13 16:09 Normal [facility] CT ABD/PELVIS WO CONon 08-07 CT ABD/PELVIS [...] by: YANELIS ENGEL Date: 2022-08-07 18:50 Normal [facility] ECHOCARDIO M/2D COMPLETEon 0 06-26-2022 ECHOCARDIO M/2D COMPLETE Patient: ROBYN THORPE Exam Date: 06/26/2022 : 1955 Gender:F Ordering : DR PRANAV ORTEZ M.D. Admission #: [id number] Family : JAIRO DALEY Order #: [id number] CLICK HERE TO VIEW EXAM ECHOCARDIOGRAM REPORT [...] M.D. on 06/26/2022 at 18:22 Normal [facility] AMYLASEon 06-19-2022 Amylase [Catalytic activity/Vol] 48 U/L Normal 25-115 [facility] Comment on above: Performed By: #### C MP, YASH, LIPA ####[facility] [address] [place] [address]Dr. Tapan Gordon CBC AUTO DIFFon 06-19-2022 BASO # 0.0 103/ul Normal 0.0-0.1 [facility] Comment on above: Performed By: #### C BC ####[facility] [address] [place], [place] [address]Dr. Tapan Gordon Basophils/100 WBC (Bld) 0.5 % Normal 0.2-2.0 [facility] Comment on above: Performed By: #### C BC ####[facility] [address] [place], [place] [address]DrCedric Gordon EO # 0.2 103/ul Normal 0.0-0.7 [facility] Comment on above: Performed By: #### C BC ####[facility] [address] [place], [place] [address]Dr. Tapan Gordon Eosinophils/100 WBC (Bld) 2.4 % Normal 0.9-7.0 [facility] Comment on above: Performed By: #### C BC ####[facility] [address] [place], [place] [address]DrCedric Gordon Erythrocyte distribution width (RBC) [Ratio] 13.0 % Normal 11.0-15.0 [facility] Comment on above: Performed By: #### C BC ####[facility] [address] [place], [place] [address]Dr. Tapan Gordon Hematocrit (Bld) [Volume fraction] 43.6 % Normal 36.0-48.0 [facility] Comment on above: Performed By: #### C BC ####[facility] [address] [place] [address]Dr. Tapan Gordon Hemoglobin (Bld) [Mass/Vol] 14.6 g/dL Normal 12.0-16.0 [facility] Comment on above: Performed By: #### C BC ####[facility] [address] [place] [address]Dr. Tapan Gordon IG # 0.02 10e3/ul Normal 0.00-0.03 [facility] Comment on above: Performed By: #### C BC ####[facility] [address] [place], [place] [address]Dr. Tapan Evan IG % 0.3 % Normal 0.0-0.5 [facility] Comment on above: Performed By: #### C BC ####[facility] [address] [place], [place] [address]Dr. Malikapalma Evan LYMPH # 1.5 103/ul Normal 1.2-3.8 [facility] Comment on above: Performed By: #### C BC ####[facility] [address] [place], [place] [address]Dr. Tapan Evan Lymphocytes/100 WBC (Bld) 23.4 % Normal 20.5-60.0 [facility] Comment on above: Performed By: #### C BC ####[facility] [address] [place] [address]Dr. Tapan Gordon MANUAL DIFF REQ NO [facility] Comment on above: Performed By: #### C BC ####[facility] [address] [place] [address]Dr. Tapan Gordon MCH (RBC) [Entitic mass] 29.5 pg Normal 26.7-34.0 [facility] Comment on above: Performed By: #### C BC ####[facility] [address] [place] [address]Dr. Tapan Gordon MCHC (RBC) [Mass/Vol] 33.5 g/dL Normal 29.9-35.2 [facility] Comment on above: Performed By: #### C BC ####[facility] [address] [place] [address]Dr. Tapan Gordon MCV (RBC) [Entitic vol] 88.1 fL Normal 81.0-99.0 [facility] Comment on above: Performed By: #### C BC ####[facility] [address] [place], [place] [address]Dr. Tapan Gordon MONO # 0.6 103/ul Normal 0.3-0.8 [facility] Comment on above: Performed By: #### C BC ####[facility] [address] [place], [place] [address]Dr. Malikapalma Gordon Monocytes/100 WBC (Bld) 9.8 % Normal 1.7-12.0 [facility] Comment on above: Performed By: #### C BC ####[facility] [address] [place], [place] [address]Dr. Tapan Gordon NEUT # 4.0 103/ul Normal 1.4-6.5 [facility] Comment on above: Performed By: #### C BC ####[facility] [address] [place], [place] [address]Dr. Malikapalma Gordon Neutrophils/100 WBC (Bld) 63.6 % Normal 43.0-75.0 [facility] Comment on above: Performed By: #### C BC ####[facility] [address] [place], [place] [address]Dr. Tapan Evan Platelet mean volume (Bld) [Entitic vol] 10.3 fL Normal 9.5-13.5 [facility] Comment on above: Performed By: #### C BC ####[facility] [address] [place], [place] [address]Dr. Tapan Gordon PLT 258 103/ul Normal 150-450 [facility] Comment on above: Performed By: #### C BC ####[facility] [address] [place], [place] [address]Dr. Tapan Gordon RBC 4.95 106/ul Normal 4.20-5.40 [facility] Comment on above: Performed By: #### C BC ####[facility] [address] [place], [place] [address]LkCedric Gordon WBC 6.3 103/ul Normal 4.0-11.0 [facility] Comment on above: Performed By: #### C BC ####[facility] [address] [place], [place] [address]Nt. [address] ABD/PELVIS WO CONon 06-19 [...] BRAULIO LASSITER Date: 2022-06-19 10:13 Normal [facility] ER URINE PROFILEon 2 Bilirubin Ql (U) Negative Normal NEGATIVE [facility] Comment on above: Performed By: #### U MICRO, ERUR #### [facility] [address] [place] [address] [address] Tapan Gordon Clarity (U) CLEAR Normal CLEAR [facility] Comment on above: Performed By: #### U MICRO, ERUR #### [facility] [address] [place] [address] [address] Tapan Gordon Color (U) LT. YELLOW Normal YELLOW [facility] Comment on above: Performed By: #### U MICRO, ERUR #### [facility] [address] [place] [address] [address] Tapan Gordon ERUAHD A micrscopic examination will be performed if indicated. Normal [facility] Comment on above: Performed By: #### U MICRO, ERUR #### [facility] [address] [place] [address] Dr. Tapan Gordon Glucose Ql (U) Negative Normal NEGATIVE [facility] Comment on above: Performed By: #### U MICRO, ERUR #### [facility] [address] [place] [address] Dr. Tapan Gordon Hemoglobin Ql (U) LARGE Abnormal NEGATIVE [facility] Comment on above: Performed By: #### U MICRO, ERUR #### [facility] [address] [place] [address] Dr. Tapan Gordon Ketones Ql (U) Negative Normal NEGATIVE [facility] Comment on above: Performed By: #### U MICRO, ERUR #### [facility] [address] [place] [address] Dr. Tapan Gordon LEUKOCYTES Negative Normal NEGATIVE [facility] Comment on above: Performed By: #### U MICRO, ERUR #### [facility] [address] [place] [address] [address] Tapan Gordon Nitrite Ql (U) Negative Normal NEGATIVE [facility] Comment on above: Performed By: #### U MICRO, ERUR #### [facility] [address] [place] [address] Dr. Tapan Gordon pH (U) 7.0 [pH] Normal 5-9 [facility] Comment on above: Performed By: #### U MICRO, ERUR #### [facility] [address] [place], [place] [address] Dr. Tapan Gordon SPEC GRAVITY 1.015 Normal 1.005-<=1.025 [facility] Comment on above: Performed By: #### U MICRO, ERUR #### [facility] [address] [place] [address] [address] Tapan Gordon UA PROTEIN TRACE Normal NEGATIVE/ TRACE [facility] Comment on above: Performed By: #### U MICRO, ERUR #### [facility] [address] [place] [address] [address] Tapan Gordon UR MICRO IND INDICATED Normal [facility] Comment on above: Performed By: #### U MICRO, ERUR #### [facility] [address] [place] [address] Dr. Tapan Gordon Urobilinogen Qn (U) 2.0 {Aleida'U}/dL Abnormal 0.2 - 1. 0 [facility] Comment on above: Performed By: #### U MICRO, ERUR #### [facility] [address] [place] [address] Dr. Tapan Gordon LIPASEon 06-19-2022 Lipase [Catalytic activity/Vol] 182.0 U/L Normal 73.0-393.0 [facility] Comment on above: Performed By: #### C YASH COLLINS, LIPA ####[facility] [address] [place] [address]Dr. Tapan Gordon OCC BLD IMMUNO SCREENon 05-22 OCCULT BLOOD Negative Normal NEGATIVE [facility] Comment on above: Performed By: #### O BSCRN ####[facility] [address] [place] [address]Dr. Tapan Gordon PROF 14(COMP METB)on 022 Albumin [Mass/Vol] 3.5 g/dL Normal 3.4-5.[address] [facility] Comment on above: Performed By: #### C YASH COLLINS, LIPA ####[facility] [address] [place] [address]DrCedric Gordon Albumin/Globulin [Mass ratio] 1.0 {ratio} Normal [facility] Comment on above: Performed By: #### C MP, YASH, LIPA ####[facility] [address] [place] [address]Dr. Tapan Gordon ALP [Catalytic activity/Vol] 76 U/L Normal 46-116 [facility] Comment on above: Performed By: #### C MP, YASH, LIPA ####[facility] [address] [place] [address]Dr. Tapan Gordon ALT [Catalytic activity/Vol] 64 U/L Critically high 14-59 [facility] Comment on above: Performed By: #### C MP, YASH, LIPA ####[facility] [address] [place], [place] [address]Dr. Tapan Gordon Anion gap [Moles/Vol] 11.2 mmol/L Normal [facility] Comment on above: Performed By: #### C MP, YASH, LIPA ####[facility] [address] [place], [place] [address]Dr. Tapan Gordon AST [Catalytic activity/Vol] 38 U/L Critically high 15-37 [facility] Comment on above: Performed By: #### C MP, YASH, LIPA ####[facility] [address] [place], [place] [address]Dr. Tapan Gordon Bilirubin [Mass/Vol] 0.7 mg/dL Normal 0.2-1.0 [facility] Comment on above: Performed By: #### C MP, YASH, LIPA ####[facility] [address] [place], [place] [address]Dr. Tapan Gordon Calcium [Mass/Vol] 8.7 mg/dL Normal 8.5-10.[address] [facility] Comment on above: Performed By: #### C MP, YASH, LIPA ####[facility] [address] [place], [place] [address]Dr. Tapan Gordon Chloride [Moles/Vol] 104 mmol/L Normal 98-107 [facility] Comment on above: Performed By: #### C MP, YASH, LIPA ####[facility] [address] [place], [place] [address]Dr. Tapan Gordon CO2 [Moles/Vol] 29.6 mmol/L Normal 21.0-32.0 [facility] Comment on above: Performed By: #### C YASH COLLINS, LIPA ####[facility] [address] [place] [address]Dr. Tapan Gordon Creatinine [Mass/Vol] 0.85 mg/dL Normal 0.55-1.02 [facility] Comment on above: Performed By: #### C KARINA YASH, LIPA ####[facility] [address] [place] [address]Dr. Tapan Gordon EGFR-AF PERUVIAN >60 Normal >=60 [facility] Comment on above: Performed By: #### C KARINA YASH, LIPA ####[facility] [address] [place] [address]Dr. Tapan Gordon EGFR-NON AF PERUVIAN >60 Normal >=60 [facility] Comment on above: Performed By: #### C KARINA YASH, LIPA ####[facility] [address] [place] [address]Dr. Tapan Gordon Globulin (S) [Mass/Vol] 3.6 g/dL Normal [facility] Comment on above: Performed By: #### C KARINA YASH, LIPA ####[facility] [address] [place] [address]Dr. Tapan Gordon Glucose [Mass/Vol] 125 mg/dL Critically high 74-106 [facility] Comment on above: Performed By: #### C KARINA YASH, LIPA ####[facility] [address] [place] [address]Dr. Tapan Gordon Potassium [Moles/Vol] 3.8 mmol/L Normal 3.5-5.1 [facility] Comment on above: Performed By: #### C KARINA YASH, LIPA ####[facility] [address] [place] [address]Dr. Tapan Gordon Protein [Mass/Vol] 7.1 g/dL Normal 6.4-8.2 [facility] Comment on above: Performed By: #### C KARINA YASH, LIPA ####[facility] [address] [place] [address]Dr. Tapan Gordon Sodium [Moles/Vol] 141 mmol/L Normal 136-145 [facility] Comment on above: Performed By: #### C MP, YASH, LIPA ####[facility] [address] [place] [address]Dr. Tapan Gordon Urea nitrogen [Mass/Vol] 22.0 mg/dL Critically high 7.0-18.0 [facility] Comment on above: Performed By: #### C MP, YASH, LIPA ####[facility] [address] [place] [address]Dr. Tapan Gordon Urea nitrogen/Creatinine [Mass ratio] 25.9 mg/mg Normal [facility] Comment on above: Performed By: #### C MP, YASH, LIPA ####[facility] [address] [place] [address]Dr. Tapan Gordon URINE MICROSCOPIC ONLYon BACTERIA TRACE Abnormal NONE SEEN [facility] Comment on above: Performed By: #### U MICRO, ERUR #### [facility] [address] [place] [address] [address] Tapan Gordon Bacteria identified Cx Nom (U) NOT INDICATED Normal [facility] Comment on above: Performed By: #### U MICRO, ERUR #### [facility] [address] [place] [address] [address] Tapan Gordon CAST NONE SEEN Normal NONE SEEN [facility] Comment on above: Performed By: #### U MICRO, ERUR #### [facility] [address] [place] [address] [address] Tapan Gordon Crystals LM Nom (Urine sed) NONE SEEN Normal NONE SEEN [facility] Comment on above: Performed By: #### U MICRO, ERUR #### [facility] [address] [place] [address] [address] Tapan Gordon Epithelial cells LM Ql (Urine sed) FEW Abnormal NONE SEEN /RARE [facility] Comment on above: Performed By: #### U MICRO, ERUR #### [facility] [address] [place] [address] [address] Tapan Gordon MUCOUS NONE SEEN Normal NONE SEEN [facility] Comment on above: Performed By: #### U MICRO, ERUR #### [facility] [address] [place] [address] [address] Tapan Gordon RBC 20-50 Abnormal 0-2 [facility] Comment on above: Performed By: #### U MICRO, ERUR #### [facility] [address] [place] [address] [address] Tapan Gordon WBC NONE SEEN Normal NONE SEEN [facility] Comment on above: Performed By: #### U MICRO, ERUR #### [facility] [address] [place] [address] [address] LUNG CANCER SCREENINGon [...] XAVIER GONZALES Date: 2022-05-29 07:22 Normal [facility] XR hip RT min 2V(w/wo pelvis )*on 11-30-2020 XR hip RT min 2V(w/wo pelvis)* [facility] [place] [address] [place] [address] XRay Report Signed Patient: Robyn Thorpe MR#: [id number] : 1955 Acct:[id number] Age/Sex: 64 / F ADM Date: 11/30/20 Loc: XD Room: Type: [facility] CLI Attending Dr: Brian Ariza DO Ordering Provider: Brian Ariza DO Date of Service: 11/30/20 XR/XR chest 2V*: S/P TRAUMA ([id number]) XR/XR hip RT min 2V(w/wo pelvis)*: S/P,PAIN RIGHT HIP ([id number]) XR/XR lumbar spine min 4V*: S/P,PAIN RIGHT [...] Robyn Gardiner M.D.11/30/2020 12:21 PM Dictation [id number] Transcribed By: NADIA 11/30/20 1221 Dictated By: Robyn Gardiner MD 11/30/20 1214 Signed By: 11/30/20 1221 [facility] Vital Signs Date Time Vital Sign Value Performing Clinician Faci lity 12-04-2023 15:54-0500 Body height 161.3 cm Cristobal White DPM Work Phone: [facility] 12-04-2023 15:54-0500 Body mass index (BMI) [Ratio] 35.22 kg/m2 Cristobal White DPM Work Phone: [facility] 12-04-2023 15:54-0500 Body weight 91.63 kg Cristobal White DPM Work Phone: [facility] 12-04-2023 15:54-0500 Diastolic blood pressure 81 mm[Hg] Cristobal White DPM Work Phone: [facility] 12-04-2023 15:54-0500 Heart rate 88 /min Cristobal White DPM Work Phone: [facility] 12-04-2023 15:54-0500 Systolic blood pressure 131 mm[Hg] Cristobal White DPM Work Phone: [facility] Healthcare Encounters Encounter Date Encounter Type Care Provider Facility Start: 04-29-2024 End: 04-29-2024 ambulatory CRISTOBAL WHITE Not Available Start: 04-12-2024 End: 04-12-2024 ambulatory [facility] Start: 03-11-2024 End: 03-11-2024 ambulatory CRISTOBAL WHITE Not Available Start: 02-19-2024 End: 02-19-2024 ambulatory CRISTOBAL WHITE Not Available Start: 01-15-2024 Refill Isidra Vanesa [facility] Jass bro[facility] Internal Medicine - Family Medicine Comment on above: Chronic bronchitis w ith emphysema; Arthritis, multiple joint involvement; Anxiety and depression; Fibromyalgia; Acquired hypothyroidism; Benign essential HTN; Primary insomnia; History of kidney stones Start: 01-13-2024 Refill Isidra Vanesa [facility] Jass bro[facility] Internal Medicine - Family Medicine Comment on above: Chronic bronchitis w ith emphysema; Arthritis, multiple joint involvement; Anxiety and depression; Fibromyalgia; Acquired hypothyroidism; Benign essential HTN; Primary insomnia Start: 12-11-2023 End: 12-12-2023 ambulatory [facility] Start: 12-11-2023 End: 12-11-2023 ambulatory [facility] Start: 12-04-2023 End: 12-04-2023 Office [...] PODIATRY Start: 11-17-2023 Telephone encounter [facility] Start: 11-17-2023 End: 11-17-2023 ambulatory AB [facility] Start: 06-10-2023 End: 06-10-[address] [facility] Start: 05-23-2023 End: 05-23-[address] [facility] Start: 04-25-2023 End: 04-28-2023 ambulatory [facility] Start: 01-21-2023 End: 01-21-2023 ambulatory JASON [facility] Start: 01-03-2023 End: 01-04-2023 ambulatory BO BLACK [facility] Start: 01-03-2023 Encounter for other preprocedural examination BOLACY BLACK [facility] Start: 01-03-2023 End: 01-03-2023 Patient encounter status Jairo Daley APRN - TESS Work Phone: [facility] Start: 01-03-2023 End: 01-03-2023 Subsequent hospital visit by physician Jairo Daley APRN - SOLAR FIELD SERVICE TECHNICIAN Work Phone: [facility] Comment on above: Renal calculus; Pre-op testing Start: 12-26-2022 End: 12-29-2022 [facility]ulatory [facility] Start: 12-26-2022 End: 12-28-2022 Subsequent hospital visit by physician [facility] Scan Room [facility] Laboratory Comment on above: Renal calculus; Gross hematuria Start: 12-12-2022 End: 12-13-2022 ambulatory [facility] Start: 12-12-2022 End: 12-12-2022 Subsequent hospital visit by physician Jairo Daley APRN - TESS Work Phone: [facility] Laboratory Comment on above: Renal calculus; Gross [...] Adult depression scr eening assessment Isidra Vanesa [employer] Start: 08-20-2023 Adult depression scr eening assessment Adysan Sleek [employer] Start: 01-03-2023 Ecg routine ecg w/le ast 12 lds w/i&r Bo Black IT SALES REPRESENTATIVE - SOLAR FIELD SERVICE TECHNICIAN Work Phone: Start: 01-03-2023 Basic metabolic pane l calcium total Bo Black IT SALES REPRESENTATIVE - SOLAR FIELD SERVICE TECHNICIAN Work Phone: Start: 12-26-2022 Ct abdomen & pelvis w/o contrst 1/> body re Jason Au MD Work Phone: Start: 12-26-2022 Assay of urea nitrog en quantitative Jason Au MD Work Phone: Start: 12-12-2022 Urnls dip stick/tabl et reagent auto microscopy Jason Au MD Work Phone: Start: 08-13-2022 Mammography Adysan Sle ek MORTGAGE CONSULTANT Plan of Treatment Date Care Activity Detail Author Start: 12-11-2024 Adult BMI Follow Up Plan Adult BMI F ollow Up Plan [facility] Start: 12-11-2024 Adult BMI Screening Adult BMI Screen ing [facility] Start: 12-11-2024 Depression Screening Depression Scre ening [facility] Start: 12-11-2024 Fall Risk Screening Fall Risk Screen ing [facility] Start: 12-11-2024 Tobacco Screening Tobacco Screening [facility] Start: 08-20-2024 Adult BMI Follow Up Plan Adult BMI F ollow Up Plan [facility] Start: 08-20-2024 Adult BMI Screening Adult BMI Screen ing [facility] Start: 08-20-2024 Depression Screening Depression Scre ening [facility] Start: 08-20-2024 Fall Risk Screening Fall Risk Screen ing [facility] Start: 08-20-2024 Medicare Annual Well ness Visit Medicare Annual Wellness Visit [facility] Start: 08-20-2024 Tobacco Screening Tobacco Screening [facility] Start: 04-12-2024 End: 04-12-2024 Patient encounter procedure 04/12/2024 9:40 AM EDT Office Visit [facility] Internal Medicine - Family Medicine [address] [place] [address] Jairo Daley, IT SALES REPRESENTATIVE-SOLAR FIELD SERVICE TECHNICIAN [address] [place] [address] [facility] Internal Medicine - Family Medicine Start: 02-12-2024 End: 02-12-2024 Patient encounter procedure 02/12/2024 4:40 PM EDT Procedure Visit [facility] [address] [place] [address] Cristobal White DPM [address] [facility] [address] [place] [address] [facility] Start: 01-07-2024 Tobacco Counseling Tobacco Counselin g [facility] Start: 12-18-2023 End: 12-18-2023 Clinical Support 12/18/2023 8:50 AM EST Clinical Support [facility] [address] [place] [address] Cristobal White DPM [address] [facility] [address] [place] [address] [facility] Start: 12-11-2023 End: 12-11-2023 Patient encounter procedure 12/11/2023 9:45 AM EST Office Visit [facility] Internal Medicine - Family Medicine [address] [place] [address] Jairo Daley, IT SALES REPRESENTATIVE-SOLAR FIELD SERVICE TECHNICIAN [address] [place] [address] [facility] Internal Medicine - Family Medicine Start: 12-04-2023 End: 12-04-2023 Patient encounter procedure 12/04/2023 4:00 PM EST Office Visit [facility] [address] [facility] [address] [place] [address] Cristobal White, VIKI [address] [facility] [address] [place] [address] [facility] Start: 08-13-2023 Screening for malign ant neoplasm of breast Mammogram [facility] Start: 06-20-2023 COVID-19 Vaccine ( season) COVID-19 Vaccine () [facility] Start: 01-21-2023 End: 01-21-2023 Admission to same day surgery center 01/21/2023 Surgery IP Unit Jason Au MD [address], [address] [place] [address] ESWL EXTRACORPOREAL SHOCK WAVE LITHOTRIPSY [facility] OR Comment on above: ESWL EXTRACORPOREAL SHOCK WAVE LITHOTRIPSY Start: 01-21-2023 End: 01-21-2023 Lithotripsy xtrcorp shock wave [facility] EXTRACORPOREAL SHOCK WAVE LITHOTRIPSY Renal calculus 01/21/2023 7:30 AM EDT [facility] Start: 01-21-2023 Subsequent hospital visit by physician 01/21/2023 Hospital Encounter IP Unit Jason Au MD [address] [place] [address], [address] [place] [address] [facility] Start: 12-31-2022 End: 12-31-2022 Patient encounter procedure 12/31/2022 Appointment Radiology [facility] CT Scan Start: 12-12-2022 Annual Wellness Visi t (AWV) Annual Wellness Visit (AWV) [facility] Start: 2011 Screening for osteoporosis DEXA (modify frequency per FRAX score) [facility] Start: 2006 Administration of varicella zoster vaccine Zoster (Shingles) Vaccine (1 of 2) [facility] Start: 2006 Screening for malign ant neoplasm of breast Breast cancer screen [facility] Start: 2006 Shingles vaccine (1 of 2) Shingles vaccine (1 of 2) [facility] Start: 2001 Screening for malign ant neoplasm of colon [facility] Start: 1996 Lipid panel Lipids [facility] Start: 1991 Diabetes screen Diabetes screen [facility] Start: 1975 DTaP,Tdap and Td Vaccines (1 - Tdap) DTaP,Tdap and Td Vaccines (1 - Tdap) [facility] Start: 1975 DTaP/Tdap/Td vaccine (1 - Tdap) DTaP/Tdap/Td vaccine (1 - Tdap) [facility] Start: 1974 Hepatitis C screening Hepatitis C sc reen [facility] Start: 1968 Depression Screen Depression Screen [facility] Start: 06-05-1957 COVID-19 Vaccine (#1) COVID-19 Vacci ne (#1) [facility] Start: 1956 Screening for malign ant neoplasm of colon [facility] Start: 1956 Tobacco Counseling Tobacco Counselin g [facility] End: 12-12-2022 Culture, Urine [facility] Work Phone: Comment on above: 1 Occurrences starti ng 12/12/2022 until 12/12/2022 US Lower extremity - right US foot right Imaging Routine Other specified disorders of synovium, right ankle and foot Ordered: 12/04/2023 [facility] Work Phone: Comment on above: Ordered: 12/04/2023 Immunizations Immunization Date Immunization Notes Care Provider Cristine hunt 08-20-2023 Influenza Vaccine, Quadrivalent, Adjuvanted [facility] 10-02-2022 Pneumococcal Conjuga te 20-valent Adysan Sleek [facility] 10-02-2022 pneumococcal conjuga te vaccine, 7 valent Adysan Sleek [facility] 07-30-2022 Influenza Vaccine, Quadrivalent, Adjuvanted [facility] Payers Date Payer Category Payer Unknown [id number] 2024 Unknown [id number] 2023 Medicaid [id number] 2023 Medicare [id number] 2023 Medicare [id number] 2022 Medicaid [place]ID [place] [employer] -[place] ONLY [id number] 2022-Present [phone] [address] [place] [address] [id number] 2022 Medicare [id number] [id number] 2017 Medicare [id number] [id number].3.6 [id number] 2017 Unknown [id number] 1959 Medicaid [id number] 1959 Medicare [id number] 1959 Unknown [id number] 1956 Unknown [id number] 2.16.840.1.236933.3.579.2.593 1956 Unknown [id number] .16.840.1.547273.3.579.2.593 1956 Unknown [id number] 2.16.840.1.909655.3.579.2.593 1956 Unknown [id number] 2.16.840.1.770001.3.579.2.593 1956 Unknown [id number] 2.16.840.1.155956.3.579.2.593 1956 Unknown [id number] 2.16.840.1.471744.3.579.2.593 1956 Unknown [id number] 2.16.840.1.496061.3.579.2.593 1956 Unknown [id number] 2.16.840.1.510219.3.579.2.593 1956 Unknown [id number] 2.16.840.1.171180.3.579.2.593 1956 Unknown [id number] 2.16.840.1.949508.3.579.2.593 1956 Unknown [id number] 2.16.840.1.810006.3.579.2.173 1956 Unknown [id number] 2.16.840.1.405509.3.579.2.173 1956 Unknown [id number] 2.16.840.1.488227.3.579.2.173 1956 Unknown [id number] 2.16.840.1.679851.3.579.2.173 1956 Unknown [id number] 2.16.840.1.796002.3.579.2.173 1956 Unknown [id number] 2.16.840.1.633057.3.579.2.173 1956 Unknown [id number] 2.16.840.1.248523.3.579.2.173 1956 Unknown [id number] 2.16.840.1.042453.3.579.2.173 1956 Unknown [id number] 2.16.840.1.326771.3.579.2.1286 1956 Unknown [id number] 2.16.840.1.352397.3.579.2.1286 1956 Unknown [id number] 2.16.840.1.146870.3.579.2.1286 1956 Unknown [id number] 2.16.840.1.185176.3.579.2.1259 1956 Unknown [id number] 2.16.840.1.669903.3.579.2.1259 1956 Unknown [id number] 2.16.840.1.150496.3.579.2.1259 1956 Unknown [id number] 2.16.840.1.412132.3.579.2.1259 Social History Date Type Detail Facility Start: 12-12-2022 End: 03-03-2023 Tobacco smoking status NHIS Smokes tobacco daily [facility] Phone: History of tobacco use Cigarette Smoker [facility] Phone: Start: 12-12-2022 End: 12-11-2023 Cigarettes smoked current (pack per day) - Reported 0.5 [facility] Phone: Start: 12-12-2022 End: 03-03-2023 Tobacco use and exposure Smokeless tobacco non-user [facility] Phone: Start: 12-12-2022 End: 12-11-2023 Alcohol intake Current drinker of alcohol (finding) [facility] Phone: Start: 12-12-2022 Tobacco Comment Smokes 6-8 cigs/day [facility] Phone: Start: 12-12-2022 Alcohol Comment Beer 2-3 every 2 wee ks [facility] Phone: Start: 1955 Sex Assigned At Not on file [facility] Phone: Start: 08-20-2023 End: 02-22-2024 Tobacco use panel [facility] Adolescent depressio n screening assessment 0 [facility] Start: 02-20-2022 Alcohol Comment on weekends, n ot often. [facility] Start: 12-04-2023 Tobacco smoking stat us NHIS Never smoked tobacco [facility] History of tobacco use Passive smoker [facility] Start: 12-04-2023 Alcohol intake Ex-drinker (finding) [facility] How often to you hav e a drink containing alcohol? 2-4 times a month [facility] Start: 12-04-2023 Alcohol Comment coffee daily [facility] Clinical Notes 03-08-2022 to 01-15-2024 Telephone Encounter - Isidra Alexis CMA - 01/15/2024 12:05 PM EDTTelephone Encounter - Isidra Alexis CMA - 01/15/2024 12:05 PM EDTCristobal White DPM - 12/04/2023 4:00 PM EST Note Date & Type Note Facility 01-15-2024 Miscellaneous Notes They went to the wrong pharmacy documented in this encounter [facility] 01-15-2024 Telephone encounter Note They went to the wrong pharmacy [facility] 12-04-2023 History of Presen t illness Narrative [...] History: Diagnosis Date Allergies Anxiety Arthritis Asthma ([facility]) Cervical cancer ([facility]) COPD (chronic obstructive pulmonary disease) ([facility]) Depression ([facility]) History of medical problems knee scraping for knee replacement HTN (hypertension) ([facility]) Kidney disease Medications: Current Outpatient Medications: albuterol [...] Cristobal White DPM documented in this encounter [facility] 11-17-2023 Note [facility] Cardiology Clinic Note Chief Complaint: Patient here [...] mouth in the morning., Disp: , Rfl: jwwvbzpchcl-jcnwjicjj-aqxmfpwb 100-62.5-25 mcg blister with device, INHALE 1 [...] normal in s (more content not included)... [facility] 11-17-2023 Miscellaneous Notes Patient called into office requesting Referral Tarun THOMAS for podiatry in [place] I do need a reason (diagnosis is required) to why she wants a referral. Patient would like her toe nails trimmed, she stated that her hand strength isn't there to cut them herself anymore. done documented in this encounter [facility] [employer] 11-17-2023 Telephone encounter Note Patient called into office requesting Referral Tarun White [facility] for podiatry in [place] -[facility] 11-17-2023 Telephone encounter Note I do need a reason (diagnosis is required) to why she wants a referral. -[facility] 11-17-2023 Telephone encounter Note Patient would like her toe nails trimmed, she stated that her hand strength isn't there to cut them herself anymore. -[facility] 11-17-2023 Telephone encounter Note done -[facility] 06-25-2023 Note HTN remains uncontro lled therefore script to increase lisinopril to 10 mg daily. Repeat BMP in 1 week Reviewed labs from 06/19/23 and renal function, liver function and cholesterol are normal and well controlled K+ 5.0- will monitor Veronica Flor NP Division of Cardiology, [facility]- [phone] Pager- [phone] Email- [email or web address] 06-10-2023 Note Increase lisinopril to 5 mg daily Continue monitoring b/p at home and staff to call in 1-2 weeks to review b/p If remains > 130/80 may transition metoprolol to coreg [facility] 06-10-2023 Note Echo reviewed with fuad prabhakar and noted Mod MV regurg [facility] 06-10-2023 Note Hypertension is unco ntrolled Increase lisinopril to 5 mg daily Continue metoprolol, aldactone and check BMP in 1 week to monitor renal function D/W pt about HTN with voltaren and she is not willing to stop at this time. [facility] 06-10-2023 Note [facility] CARDIOLOGY PROGR ESS [...] 10 mg by mouth in the morning. olevnwmengs-gbjfgbqcc-fnirhxtl 100-62.5-25 mcg blister with device INHALE 1 [...] in 1-2 weeks to review B/P log [facility] 06-02-2023 Note Hypertension is unco ntrolled with pt reporting very elevated B/p in the mornings despite starting aldactone. Will add lisinopril in the pm daily for better HTN management [facility] 05-23-2023 Note F/u with PCP [facility] 05-23-2023 Note Tobacco use is uncha nged- pt is not willing to quit smoking at this time [facility] 05-23-2023 Note Stable with metoprolol [facility] 05-23-2023 Note Repeat echo ordered in light of SOB with exertion and MR noted on prior echo [facility] 05-23-2023 Note Hypertension is elev ated continue all meds and will add aldactone to regime Repeat BMP in 1 week to assess renal function and electrolytes and pt voiced understanding [facility] 05-23-2023 Note Stable [facility] 05-23-2023 Note [facility] CARDIOLOGY PROGR ESS NOTE [...] 10 mg by mouth in the morning. dlkyhxffiyv-wixzjlbvq-ncuotzej 100-62.5-25 mcg blister with device INHALE 1 [...] moderate COPD vs asthma Cath 2017 at [facility]: non obstructive cors, possible bridging of LAD [...] Assessment/Plan: Atypical chest (more content not included)... [facility] 05-23-2023 Note Patient here for 1 [...] All other systems reviewed and are negative. [facility] 07-03-2022 Note PROCEDURE: XR ANKLE RT [...] authenticated by: YANELIS ENGEL Date: 2022-07-03 10:27 [facility] 04-03-2022 Note PROCEDURE: XR ANKLE RT MIN [...] by: YANELIS ENGEL Date: 2022-04-03 15:51 [facility] 04-03-2022 Note PROCEDURE: XR ANKLE RT MIN [...] by: YANELIS ENGEL Date: 2022-04-03 15:51 [facility] 03-08-2022 Note PROCEDURE: XR ELBOW RT MIN 3 VIEWS HISTORY: Pain ; right elbow pain and contusion after falling COMPARISON: None. FINDINGS: BONES:No fracture, acute abnormality, or significant arthropathy. SOFT TISSUES:No visible soft tissue swelling. EFFUSION:None visible. OTHER: Negative. IMPRESSION: 1. No acute bone abnormality. 2. Minimal degenerative changes. Electronically authenticated by: YANELIS ENGEL Date: 2022-03-08 12:09 [facility] Evaluation note Diagnosis Renal calculus Calculus of kidney Gross hematuria documented in this encounter [facility] Phone: evaluation note* Diagnosis Renal calculus Calculus of kidney Gross hematuria documented in this encounter [facility] Phone: evaluation note* Diagnosis Renal calculus Calculus of kidney Gross hematuria documented in this encounter [facility] Phone: evalgxufhi note* Diagnosis Renal calculus Calculus of kidney Pre-op testing Preoperative examination, unspecified Renal calculus Calculus of kidney documented in this encounter [facility] Phone: evalhhhfgy note* Diagnosis Renal calculus Calculus of kidney Pre-op testing Preoperative examination, unspecified Renal calculus Calculus of kidney documented in this encounter [facility] Phone: evalroskye note* Diagnosis Hx of onychomycosis- Primary [facility] Diagnosis DJD (degenerative joint disease), ankle and foot, right- Primary Other specified disorders of synovium, right ankle and foot Onychomycosis Dermatophytosis of nail Toe pain, bilateral documented in this encounter [facility] Healthcare[facility] note* Diagnosis Chronic bronchitis with emphysema ([facility]) Obstructive chronic bronchitis without exacerbation Arthritis, multiple joint involvement Unspecified arthropathy, multiple sites Anxiety and depression Fibromyalgia Unspecified myalgia and myositis Acquired hypothyroidism Unspecified hypothyroidism Benign essential HTN Primary insomnia Persistent disorder of initiating or maintaining sleep [facility] Diagnosis Chronic bronchitis with emphysema ([facility]) Obstructive chronic bronchitis without exacerbation Arthritis, multiple joint involvement Unspecified arthropathy, multiple sites Anxiety and depression Fibromyalgia Unspecified myalgia and myositis Acquired hypothyroidism Unspecified hypothyroidism Benign essential HTN Primary insomnia Persistent disorder of initiating or maintaining sleep History of kidney stones documented in this encounter [facility] SystemInstructionsNot on filedocumented in this encounter [facility] System[facility]ructionsNot on filedocumented in this encounter [facility] SystemInstructionsNot on filedocumented in this encounter [facility] SystemReason for referral (narrative)* Consultation (Routine) - Pending Review Specialty Diagnoses / Procedures Referred By Gregor prabhakar Referred To Contact Podiatry Diagnoses Hx of onychomycosis Jairo Daley APRN-CNP [address] [place] [address] Cristobal White DPM [address] [address] Referral ID Status Reason Start Date Expiration Date Visits Requested Visits Authorized [id number] Pending Review Specialty Services Required 11/17/2023 11/16/2024 1 1 [facility] Summary Purpose Family History No Family History [...] & PELVIS W/O CONTRST 1/> [place] [id number] - CHG CT ABDOMEN & PELVIS W/O CONTRST 1/> BODY RE Jason Au MD [address], [address] [place] [address] Referral ID Status Reason Start Date Expiration Date Visits Re quested Visits Authorized [id number] Closed 12/12/2022 12/12/2023 1 1 Specialty Diagnoses / Procedures Referred By Gregor prabhakar Referred To Contact Cardiology Diagnoses Renal calculus Pre-op testing Procedures EKG 12 Lead Bo Black, IT SALES REPRESENTATIVE - SOLAR FIELD SERVICE TECHNICIAN [address] [place] [address] Referral ID Status Reason Start Date Expiration Date Visits Re quested Visits Authorized [id number] Open 01/02/2023 01/02/2024 1 1 Additional Source Comments INFORMATION SOURCE (unrecogn ized section and content) DATE CREATED AUTHOR 11/26/2021 [facility] DATE CREATED AUTHOR AUTHOR'S ORGANIZ ATION 09/22/2022 [facility] DATE CREATED AUTHOR AUTHOR'S ORGANIZ ATION 03/03/2023 [facility] DATE CREATED AUTHOR AUTHOR'S ORGANIZ ATION 04/27/2023 [facility] DATE CREATED AUTHOR AUTHOR'S ORGANIZ ATION 11/21/2023 [facility] DATE CREATED AUTHOR AUTHOR'S ORGANIZ ATION 12/19/2023 [facility] DATE CREATED AUTHOR AUTHOR'S ORGANIZ ATION 04/12/2024 [facility] DATE CREATED AUTHOR AUTHOR'S ORGANIZ ATION 05/05/2024 [facility] dical Specialists EPIC Care Teams (unrecognized sec tion and content) Hospital Liaison Relationship Specialty Start Date End Date Jairo Daley IT SALES REPRESENTATIVE - SOLAR FIELD SERVICE TECHNICIAN [address] [place] [address] PCP - General 12/12/22 Hospital Liaison Relationship Specialty Start Date End Date Jairo Daley IT SALES REPRESENTATIVE - SOLAR FIELD SERVICE TECHNICIAN [address] [place] [address] PCP - General 12/12/22 Hospital Liaison Relationship Specialty Start Date End Date Jairo Daley IT SALES REPRESENTATIVE - SOLAR FIELD SERVICE TECHNICIAN [address] [place] [address] PCP - General 12/12/22 Hospital Liaison Relationship Specialty Start Date End Date Jairo Daley APRN [facility] [address] [place] [address] PCP - General 12/12/22 Hospital Liaison Relationship Specialty Start Date End Date [facility] [address] [place] [address] PCP - General Family Medicine 02/20/22 Hospital Liaison Relationship Specialty Start Date End Date [facility] [address] [place] [address] PCP - General Family Medicine 02/20/22 Hospital Liaison Relationship Specialty Start Date End Date [facility] [address] [place] [address] PCP - General Family Medicine 02/20/22 Reason for Visit (unrecogniz ed section and content) Specialty Diagnoses / Procedures Referred By Gregor prabhakar Referred To Contact Radiology Diagnoses Renal calculus Gross hematuria Renal Calculus [N20.0] Gross Hematuria [R31.0] Procedures CT UROGRAM CHG CT ABDOMEN & PELVIS W/O CONTRST 1/> [place] [id number] - CHG CT ABDOMEN & PELVIS W/O CONTRST 1/> BODY RE Jason Au MD [address] [place] [address], [address] [place] [address] Referral ID Status Reason Start Date Expiration Date Visits Re quested Visits Authorized [id number] Closed 12/12/2022 12/12/2023 1 1 Reason Comments DM Foot Care Dm Nails/ fungus Specialty Diagnoses / Procedures Referred By Contac t Referred To Contact Podiatry Diagnoses Hx of onychomycosis Procedures AMB REFERRAL TO PODIATRY Jairo Daley CRNP [address], [place] [address] Cristobal White DPM [address] [place] [address] Referral ID Status Reason Start Date Expiration Date Visits Re quested Visits Authorized [id number] Closed 11/17/2023 11/16/2024 1 1 Reason Onset [...] BE BASED ON THE PRIMARY CLINICAL RECORDS. [facility] [employer] provides no warranty or guarantee of the accuracy or completeness of information in this document.
--- NOTE | 2024-06-02 09:00 | CA_ITS ---
Patient Name: FRANKO NUNEZ MR#: [id number] : 1955 Exam Date: 06/02/2024 Ordering Doctor: DR Isra Ortez M.D. ECHOCARDIOGRAM REPORT PROCEDURE: CA ECHO DOPPLER COMPLETE INDICATIONS: Mitral valve regurgitation. smoker, COPD, hypertension COMPARISON: None. DESCRIPTION: COMPLETE ECHOCARDIOGRAM Real-time transthoracic echocardiography with 2D, M-mode, spectral and color flow Doppler performed. QUALITY: Technical quality was good. LEFT VENTRICLE: Normal chamber size. Mild left ventricular hypertrophy. LV EF: Global left ventricular systolic function is normal; visually estimated ejection fraction is 55 to 60%. No significant wall motion abnormalities. DIASTOLIC: Grade II diastolic dysfunction. ATRIAL SEPTUM: Visually appears intact. LEFT ATRIUM: Mild dilatation. RIGHT ATRIUM: Normal chamber size. RIGHT VENTRICLE: Normal chamber size. Normal right ventricular systolic function. TRICUSPID VALVE: Normal mobility and thickness. No stenosis with trivial regurgitation. Doppler studies reveal mildly (35-45) elevated right sided pressures. RVSP 45 mmHg MITRAL VALVE: Mildly thickened with normal mobility. No evidence of mitral valve stenosis. Mild mitral annular calcification. Mild mitral regurgitation. AORTIC VALVE: Normal trileaflet appearance. No visible sclerosis. Normal leaflet mobility. No evidence of aortic valve stenosis. No aortic regurgitation. AORTIC ROOT: Normal diameter and appearance. PULMONIC VALVE: Not well visualized. No stenosis. No regurgitation. PERICARDIUM: No evidence of pericardial effusion. IVC: Collapses with inspirations. IVC is normal in size. CONCLUSION: 1. Global left ventricular systolic function is normal; visually estimated ejection fraction is 55 to 60% 2. Normal right ventricular size and systolic function 3. Mild left ventricular hypertrophy 4. The left atrium is mildly dilated 5. Mildly elevated right ventricular systolic pressure; RVSP 45 mmHg 6. Mild mitral regurgitation Adult Echocardiography Procedure Report Left Ventricle LVEDD (3.7 - 5.6 cm): 5.10 cm LVESD (2.2 - 4.0 cm): 3.10 cm LVIVS thickness (0.6 - 1.2 cm): 1.23 cm LVPW thickness (0.5 - 1.0 cm): 1.08 cm E - e': 13.50 LVOT Max Gradient: 3.48 mm[Hg] LVOT Area (cm2): 0.93 m/s Peak Velocity (LVOT): 0.93 m/s Mean Velocity (LVOT): 0.59 m/s LVOT Diameter 2.24 cm Left Atrium LA Volume Index (2D A2C): 41.89 ml/m2 Left Atrium Systolic Dimension: 4.49 cm Mitral Valve MV E to A Ratio: 1.10 Mitral Valve A-Wave Peak Velocity: 0.76 m/s Mitral Valve E-Wave Peak Velocity: 0.83 m/s Right Ventricle Aorta AO Root Diam: 3.29 cm Aortic Valve AoV Area (Peak Donaldo): 3.50 cm2, 3.50 cm2 AoV Area (VTI): 3.02 cm2, 3.02 cm2 Peak Velocity(Antegrade Flow): 1.05 m/s Peak Gradient(Antegrade Flow): 4.41 mm[Hg] Mean Velocity(Antegrade Flow): 0.71 m/s Mean Gradient(Antegrade Flow): 2.33 mm[Hg] Velocity Time Integral: 25.03 cm Tricuspid Valve Peak Velocity (Regurgitant Flow): 3.26 m/s Pulmonic Valve Peak Velocity: 0.62 m/s Peak Gradient: 1.52 mm[Hg] Right Atrium Right Atrium Systolic Pressure: 44.76 ml, 44.76 ml Dictated by: Isra Ortez M.D. on 06/02/2024 at 17:59 Approved by: Isra Ortez M.D. on 06/02/2024 at 18:03
== END 2024-06-02 08:32 | disposition home or self-care (01) ==
LOC: CARD 08:31
PROVIDERS: PCP Nurse Practitioner; Visit Provider Internal Medicine Interventional Cardiology
DX: F17.219 Nicotine dependence, cigarettes, with unspecified nicotine-induced disorders (principal); Z12.2 Encounter for screening for malignant neoplasm of respiratory organs; I34.0 Nonrheumatic mitral (valve) insufficiency
CPT/HCPCS: 71271; 93306

== ENCOUNTER 2024-06-07 08:32 | Outpatient (OUT) | payer OTHER, SELFPAY ==
--- NOTE | 2024-06-07 | XR_ITS ---
The [address] [address] Patient Name: FRANKO NUNEZ MRN: [id number] date: 1955 Sex: F Assigned Patient Location: Current Patient Location: Accession/Order Number: [id number] Exam Date: 06/07/2024 08:30 Report Date: 06/08/2024 10:25 At the request of: YANELIS SHOOK Procedure: XR wrist RT min 3V PROCEDURE: XR wrist RT min 3V HISTORY: RIGHT WRIST PAIN COMPARISON: XR wrist right 05/10/2024 FINDINGS: BONES:No visible fracture or dislocation. Mild degenerative changes. SOFT TISSUES:No visible soft tissue swelling. EFFUSION:None visible. OTHER: Negative. XR/XR wrist RT min 3V IMPRESSION: 1. Images were obtained through cast material which limits evaluation. 2. Previously described distal radius fracture is not visible today study. No appreciable acute abnormality. Electronically authenticated by: YANELIS ENGEL Date: 06/08/2024 10:25
--- OUTSIDE RECORDS SUMMARY | 2024-06-07 08:37 | XMS_ITS | CCD ---
Author Organization [facility] Care Team Providers Care Clinical Research Associate Name Role Phone RANDAL ORTIZ Attending Unavailable Daley FRONT OFFICE ADMINISTRATOR - CHIEF ORDER DISPATCHER, Jairo J Primary Care [facility] ider BRAULIO LASSITER Consulting Unavailable AJIT ., JERI Attending Unavailable AJIT ., JERI Admitting Unavailable DALEY, JAIRO Primary Care Unavailable AJIT ., JERI Consulting Unavailable JANEEN POOLE Consulting Unavailable AMALIA ., FAVIO Attending Unavailable AMALIA ., FAVIO Admitting Unavailable DALEY, JAIRO Primary Care Unavailable AMALIA .FAVIO Consulting Unavailable TORO, DR YANELIS Zaldivar Consulting [...] Care Unavailable TIMMIS, DR TSAI Attending Unavailable TIMMIS, DR TSAI Admitting Unavailable ZIEBER, DR YANELIS Zaldivar Consulting Unavailable RACHELEBYADI, DR [...] VALENTIN Admitting Unavailable SUNNY VALENTIN Consulting Unavailable Daley FRONT OFFICE ADMINISTRATOR-CHIEF ORDER DISPATCHER, Jairo J Primary Care Provid er VERONICA [...] Primary Care Unavailable CRISTOBAL WHITE Attending Unavailable AARON, JAIRO Referring Unavailable CRISTOBAL WHITE Attending Unavailable CRISTOBAL WHITE Attending Unavailable CRISTOBAL WHITE Attending Unavailable JASON AU Referring Unavailable DALEY, JAIRO J Primary Care Unavailable JASON AU Referring Unavailable DALEY, JAIRO J Primary Care Unavailable Allergies Allergy Classification Reported Allergen(s) Allergy Type Date of Onset Reaction(s) Facility (5 sources) Silicone adhesive tape Propensity to adverse reactions to drug 3 Rash [facility] (1 source) bee venom Drug allergy (disorder) 6 [facility] Repository (1 source) Latex Drug allergy (disorder) [facility] (6 sources) Adhesive agent; Translations: [ADHESIVE] Propensity to adverse reactions to drug 3 Rash [facility] (6 sources) Lisinopril; Translations: [LISINOPRIL] Drug Allergy 3 Cough [facility] (6 sources) Bee Venom Protein (Honey Bee); Translations: [BEE VENOM PROTEIN (HONEY BEE)] Propensity to adverse reactions to drug 3 [facility] sources) Honey bee venom Allergy to substance 3 Anaphylaxis [facility] (2 sources) Lisinopril Propensity to adverse reactions 3 Cough [facility] (2 sources) Attends Briefs Small Drug Intolerance 3 Rash [facility] NEGATED: Highlighted row has been ruled out! (5 sources) Other Propensity to adverse reactions 2 [facility] Medications Current Medications Medication Drug Class(es) [...] tab Q 4 hrs PRN 0 Active [id number] 200 actuat albuterol 0.09 mg/actuat metered dose [...] 1 TABLET BEFORE BEDTIME 0 11/17/2022 Active [id number] 0.3 ml EPINEPHrine 1 mg/ml auto-injector (10 [...] 01/13/2024 Discontinued (Reorder) take 1 puff(s) by [facility] once daily quhzyxahzxj-jqxzpjiss-acyglt (TRELEGY ELLIPTA) 100-62.5-25 MCG/ACT AEPB inhaler Trelegy [...] Start: 10-02-2023 take 1 tablet by tapan in the morning levothyroxine (SYNTHROID, LEVOTHROID) 50 [...] Translations: [Essential hypertension] Onset: 11-10-2019 04-01-2022 Chronic Genitourinary symptoms and ill-defined conditions (3 sources) Rafael hematuria; Translations: [Gross hematuria] Episodic Headache; including migraine (1 source) Headache; including [...] 11-11-2022 Chronic Other aftercare (1 source) 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 Renal shadows partially obscured by bowel gas and fecal debris. No definite renal or ureteral stones. No acute osseous abnormality. IMPRESSION: No definite renal or ureteral stones Interpreted by: Олег Beltrán DO Signed by: Олег Beltrán DO 06/05/24 Final result [facility] HCV Ab IA Qlon 12-11-2023 ANTI HCV W/PCR REFLX Reactive Abnormal NRCT [facility] Comment on above: Result Comment: Supplemental testing for HCV RNA by PCR has been ordered per CDC recommendations. Heqrzh-nz-dkbgff ratio is >=1.00. Performed By: #### Evens MARISCAL, 67071-4 #### [facility] ([id number]) [address] [facility], [address] [address] HCV RNA PAULY+probe Qnon 12-11 HCV RNA QUANT PCR [id number] IU/mL Abnormal Undetected Pro [facility] Comment on above: Result Comment: NOTE Result in log IU/mL is 7.28. ADDITIONAL INFORMATION The quantification range of this assay is 15 to 100,000,000 IU/mL (1.18 log to 8.00 log IU/mL). Testing was performed using the diomedes HCV test ([employer] Test Performed by: [place] [address] [employer] Cut Off Saw Operator: Raj Bhatti M.D. Ph.D.; CLIA# [id number] Performed By: #### Evens MARISCAL, 54027-9 #### [facility] ([id number]) [address] [address] THYROID PROFILEon 12-11-2023 Free T4 [Mass/Vol] 1.29 ng/dL Normal 0.61-1.60 [facility] Comment on above: Performed By: #### T RAIZAR, 22898-6 #### [facility] ([id number]) [address] [address] TSH 0.45 uIU/mL Low 0.49-4.67 [facility] Comment on above: Performed By: #### T RAIZAR, 67490-7 #### [facility] ([id number]) [address] [address] Office Visiton 11-17-2023 Follow-up visit [id number] Robyn Thorpe Rick 1955 F Date Provider Department Center 11/17/2023 Julisa-PRANAV ORTEZ Family History Problem Relation Age of Onset Diabetes Mother Coronary artery disease Mother Hypertension Mother Coronary artery disease Father Hypertension Father Other Father Coronary artery disease Brother Family Status - Relation Status Age at Mother Father Brother Level of Service:54266 ND OFFICE/OUTPATIENT ESTABLISHED LOW MDM 20 MIN [facility] Orders Onlyon 11-17-2023 Orders Only [id number] Robyn Thorpe Rick 1955 F Date Provider Department Center 11/17/2023 PAT BAL GEE Alejandro Family History Problem Relation Age of Onset Diabetes Mother Coronary artery disease Mother Hypertension Mother Coronary artery disease Father Hypertension Father Other Father Coronary artery disease Brother Family Status - Relation Status Age at Mother Father Brother [facility] 36on 07-03-2023 36 Patient stopped by the office today c/o cough with lisinopril. Can we switch her to losartan? Normal [facility] Orders Onlyon 06-25-2023 Orders Only [id number] Mcnairy,Robyn J 1955 F Date Provider Department Center 06/25/2023 VERONICA BELLO GEE Thurman Family History Problem Relation Age of Onset Diabetes Mother Coronary artery disease Mother Hypertension Mother Coronary artery disease Father Hypertension Father Other Father Coronary artery disease Brother Family Status - Relation Status Age at Mother Father Brother [facility] 37on 06-10-2023 37 Increase lisinopril to 5 mg daily ( take 2 of the 2.5 mg tabs until the bottle is empty and then next bottle will be the 5 mg tabs) Have blood checked in 1 week- to check kidney function and electrolytes Continue all other meds Normal [facility] Office Visiton 06-10-2023 Follow-up visit [id number] IlaKarsonRobyn J 1955 F Date Provider Department Center 06/10/2023 VERONICA BELLO GEE Alejandro Family History Problem Relation Age of Onset Diabetes Mother Coronary artery disease Mother Hypertension Mother Coronary artery disease Father Hypertension Father Other Father Coronary artery disease Brother Family Status - Relation Status Age at Mother Father Brother Level of Service:25106 ND OFFICE/OUTPATIENT ESTABLISHED MOD MDM 30-39 MIN Reason for Visit and Comments: Follow-up [580458] [facility] Telephoneon 06-10-2023 Telephone [id number] Robyn Thorpe Rick 1955 F Date Provider Department Center 06/10/2023 Gina-PAT BELTRÁN Family History Problem Relation Age of Onset Diabetes Mother Coronary artery disease Mother Hypertension Mother Coronary artery disease Father Hypertension Father Other Father Coronary artery disease Brother Family Status - Relation Status Age at Mother Father Brother [facility] Orders Onlyon 06-02-2023 Orders Only [id number] Mcnairy,Robyn J 1955 Date Provider Department Center 06/02/2023 VERONICA BELLO Family History Problem Relation Age of Onset Diabetes Mother Coronary artery disease Mother Hypertension Mother Coronary artery disease Father Hypertension Father Other Father Coronary artery disease Brother Family Status - Relation Status Age at Mother Father Brother [facility] 36on 05-30-2023 36 Aline- does she have a f/U scheduled? [facility] 37on 05-23-2023 37 Start Spironolactone/Aldac tone 1 tab daily in the morning for high blood pressure and water retention Please have blood drawn next week to check kidney function and electrolytes. Continue to take all other medications [facility] Office Visiton 05-23-2023 Follow-up visit [id number] IlaRobyn J 1955 Date Provider Department Center 05/23/2023 VERONICA BELLO Family History Problem Relation Age of Onset Diabetes Mother Coronary artery disease Mother Hypertension Mother Coronary artery disease Father Hypertension Father Other Father Coronary artery disease Brother Family Status - Relation Status Age at Mother Father Brother Level of Service:15888 ND OFFICE/OUTPATIENT ESTABLISHED MOD MDM 30-39 MIN [facility] Basic Metabolic Panelon 03- Anion gap [Moles/Vol] 8 mmol/L Low 9 - 17 mmol/L [facility] Calcium [Mass/Vol] 9.4 mg/dL 8.6 - 10. 4 mg/dL [facility] Chloride [Moles/Vol] 108 mmol/L High 98 - 107 mmol/L [facility] CO2 [Moles/Vol] 25 mmol/L 20 - 31 mmol/L [facility] Creatinine [Mass/Vol] 0.68 mg/dL 0.50 - 0.90 mg/dL [facility] GFR/1.73 sq M.predicted MDRD (S/P/Bld) [Vol rate/Area] - PINF [facility] Comment on above: These results are [...] 109 mg/dL High 70 - 99 mg/dL [facility] Interpretation and review of laboratory results Abnormal [facility] Potassium [Moles/Vol] 3.6 mmol/L Low 3.7 - 5.3 mmol/L [facility] Sodium [Moles/Vol] 141 mmol/L 135 - 144 mmol/L [facility] Urea nitrogen [Mass/Vol] 20 mg/dL 8 - 23 mg/dL [facility] Urea nitrogen/Creatinine (Bld) [Mass ratio] 29 High 9 - 20 [facility] CBC with Auto Differentialon 01-03-2023 Absolute Eos # 0.20 [facility] Absolute Immature Granulocyte 0.03 [facility] Absolute Lymph # 1.05 Low [facility] Absolute Kendall # 0.78 [facility] Basophils (Bld) [#/Vol] 0.04 10*3/uL [facility] Basophils/100 WBC (Bld) 1 % 0 - 2 % [facility] Eosinophils/100 WBC (Bld) 3 % 1 - 4 % [facility] Hematocrit (Bld) [Volume fraction] 43.3 % 36.3 - 47.1 % [facility] Hemoglobin (Bld) [Mass/Vol] 14.3 g/dL 11.9 - 15.1 g/dL [facility] Immature granulocytes/100 WBC (Bld) 1 % High 0 [facility] Interpretation and review of laboratory results Abnormal [facility] Lymphocytes/100 WBC (Bld) 16 % Low 24 - 43 % [facility] MCH (RBC) [Entitic mass] 28.9 pg 25.2 - 33.5 pg [facility] MCHC (RBC) [Mass/Vol] 33.0 g/dL 28.4 - 34.8 g/dL [facility] MCV (RBC) [Entitic vol] 87.5 fL 82.6 - 102.9 fL [facility] Monocytes/100 WBC (Bld) 12 % 3 - 12 % [facility] NRBC Automated 0.0 0.0 per 100 WBC [facility] Platelet distribution width (Bld) [Ratio] 13.2 % 11.8 - 14.4 % [facility] Platelet mean volume (Bld) [Entitic vol] 10.9 fL 8.1 - 13.5 fL [facility] Platelets (Bld) [#/Vol] 227 10*3/uL [facility] RBC (Bld) [#/Vol] 4.95 10*6/uL 3.95 - 5.1 1 m/uL [facility] Segmented neutrophils/100 WBC (Bld) 67 % High 36 - 65 % [facility] Segs Absolute 4.37 [facility] WBC (Bld) [#/Vol] 6.5 10*3/uL [facility] EKG 12 LeadOrdered By: Enrique Quezada on 01-03-2023 Atrial Rate 64 BPM [facility] Work Phone: P Mission 75 degrees [facility] Work Phone: P-R Interval 146 ms [facility] Work Phone: Q-T Interval 480 ms [facility] Work Phone: QRS Duration 130 ms [employer] Work Phone: QTc Calculation (Bazett) 495 ms [employer] Work Phone: R Mission 3 degrees [employer] Work Phone: T Mission 31 degrees [employer] Work Phone: Ventricular Rate 64 BPM [employer] Work Phone: [employer] Work Phone: EKG 12 Leadon 01-03-2023 Normal sinus rhythm Right bundle branch block Abnormal ECG No previous ECGs available Confirmed by YANELIS QUEZADA ([id number]) on 01/03/2023 11:52:02 PM [facility] RADIOLOGY Yanelis Quezada MD - 01/03/2023 Normal sinus rhythm Right bundle branch block Abnormal ECG No previous ECGs available Confirmed by YANELIS QUEZADA ([id number]) on 01/03/2023 11:52:02 PM [employer] Work Phone: BUN & Creatinineon 3 Creatinine [Mass/Vol] 0.78 mg/dL 0.50 - 0.90 mg/dL [employer] GFR/1.73 sq M.predicted MDRD (S/P/Bld) [Vol rate/Area] - PINF [employer] Comment on above: These results are not [...] [Mass/Vol] 22 mg/dL 8 - 23 mg/dL [employer] [facility] [employer] CT UROGRAMon 12-26-2022 1. Bilateral nonobstructing nephroliths larger on the right side of 6.5 mm. No ureteric obstruction. 2. Mild hepatic steatosis. Granulomas in liver and spleen. 3. Atherosclerotic disease. 4. Postsurgical changes lower lumbar spine. Other findings as above. [facility] EXAMINATION: CT UROGRAM 12/26/2022 1:23 pm [...] acute osseous or subcutaneous soft tissue abnormality. [facility] CONSOLID[facility] Katelyn Aceves MD - 12/26/2022 EXAMINATION: [...] lower lumbar spine. Other findings as above. [employer] Work Phone: Radiology Study observation (narrative) [employer] Work Phone: CT UROGRAMOrdered By: Katelyn wilkes on 12-26-2022 [employer] Work Phone: Urinalysis with Microscopico n 12-12-2022 Bacteria, UA 2+ Abnormal None [facility] [employer] Bilirubin Urine Negative NEGATIVE [employer] [facility] [employer] Color, UA Yellow Yellow [employer] Epithelial Cells UA 2 TO 5 [place] S [employer] Glucose Auto test strip (U) [Mass/Vol] Negative NEGATIVE [employer] Interpretation and review of laboratory results Abnormal [employer] Ketones (U) [Mass/Vol] TRACE Abnormal NEGATIVE [employer] [facility] Leukocyte esterase Auto test strip Ql (U) Negative NEGATIVE [employer] Mucus, UA 1+ Abnormal None [employer] Nitrite Auto test strip Ql (U) Negative NEGATIVE [employer] Protein (U) [Mass/Vol] 6.0 mg/dL 5.0 - 9.0 [facility] Protein (U) [Mass/Vol] 1+ Abnormal NEGATIVE [facility] RBC clumps Auto (Urine sed) [#/Area] 5 TO 10 [facility] Specific [place], UA 1.025 High 1.010 - 1.020 [facility] Turbidity UA Clear Clear [facility] Urine Hgb TRACE Abnormal NEGATIVE [facility] Urobilinogen, Urine Normal Normal [facility] WBC, UA 0 TO 2 [facility] XR RIBS LT PA Sophia 3 XR RIBS LT PA CH EXAM: XR RIBS LT PA CH HISTORY: Rib pain COMPARISON: 05/28/2022 TECHNIQUE: Four views of the left ribs. FINDINGS: No rib fracture indentified. The lungs are clear. IMPRESSION: 1. No acute rib fracture identified. Electronically authenticated by: JANEEN POOLE Date: 2022-12-03 10:28 Normal [facility] MRI BRAIN WO W CONon 023 [...] YANELIS ENGEL Date: 2022-10-22 13:55 Normal [facility] CREATININEon 10-21-2022 Creatinine [Mass/Vol] 0.94 mg/dL Normal 0.55-1.02 [facility] Comment on above: Performed By: #### C HUGH ####[facility] [address] [place] [id number]. Tapan Gordon EGFR-AF BELGIAN >60 Normal >=60 [facility] Comment on above: Performed By: #### C HUGH ####[facility] [address] [place], [place] [address]Rz. Tapan Gordon EGFR-NON AF BELGIAN =60 Normal >=60 [facility] Comment on above: Performed By: #### C HUGH ####[facility] [address] [place] [id number]. Tapan Gordon MG MAMM SCREEN 3D NICKOLAS CADon 08-13-2022 MG MAMM SCREEN 3D NICKOLAS CAD Patient: ROBYN THORPE Exam Date: 08/13/2022 : 1955 Gender:F Ordering : JAIRO DALEY Admission #: [id number] Family : Order #: [id number] CLICK HERE TO VIEW EXAM RADIOLOGY REPORT [...] kidney cancer at age 65. LOCATION: [facility] BREAST COMPOSITION: Scattered areas fibroglandular [...] on 08/14/2022 at 07:58 Normal [facility] XR DEXA BONE DENSITYon 08-13 XR [...] by: YANELIS ENGEL Date: 2022-08-13 16:09 Normal [facility] CT ABD/PELVIS WO CONon 08-07 CT [...] YANELIS ENGEL Date: 2022-08-07 18:50 Normal [facility] ECHOCARDIO M/2D COMPLETEon 0 06-26-2022 ECHOCARDIO M/2D COMPLETE Patient: ROBYN THORPE Exam Date: 06/26/2022 : 1955 Gender:F Ordering : DR PRANAV ORTEZ M.D. Admission #: [id number] Family : JAIRO DALEY Order #: [id number] CLICK HERE TO VIEW EXAM ECHOCARDIOGRAM REPORT [...] M.D. on 06/26/2022 at 18:22 Normal [facility] AMYLASEon 06-19-2022 Amylase [Catalytic activity/Vol] 48 U/L Normal 25-115 [facility] Comment on above: Performed By: #### C MP, YASH, LIPA ####[facility] [address] [place] [address]Dr. Tapan Gordon CBC AUTO DIFFon 06-19-2022 BASO # 0.0 103/ul Normal 0.0-0.1 [facility] Comment on above: Performed By: #### C BC ####[facility] [address] [place], [place] [address]Dr. Tapan Gordon Basophils/100 WBC (Bld) 0.5 % Normal 0.2-2.0 [facility] Comment on above: Performed By: #### C BC ####[facility] [address] [place], [place] [address]Dr. Tapan Gordon EO # 0.2 103/ul Normal 0.0-0.7 [facility] Comment on above: Performed By: #### C BC ####[facility] [address] [place], [place] [address]Dr. Tapan Gordon Eosinophils/100 WBC (Bld) 2.4 % Normal 0.9-7.0 [facility] Comment on above: Performed By: #### C BC ####[facility] [address] [place] [address]Dr. Tapan Gordon Erythrocyte distribution width (RBC) [Ratio] 13.0 % Normal 11.0-15.0 [facility] Comment on above: Performed By: #### C BC ####[facility] [address] [place] [address]Dr. Tapan Gordon Hematocrit (Bld) [Volume fraction] 43.6 % Normal 36.0-48.0 [facility] Comment on above: Performed By: #### C BC ####[facility] [address] [place], [place] [address]Dr. Tapan Gordon Hemoglobin (Bld) [Mass/Vol] 14.6 g/dL Normal 12.0-16.0 [facility] Comment on above: Performed By: #### C BC ####[facility] [address] [place], [place] [address]Dr. Tapan Gordon IG # 0.02 10e3/ul Normal 0.00-0.03 [facility] Comment on above: Performed By: #### C BC ####[facility] [address] [place], [place] [address]Dr. Tapan Gordon IG % 0.3 % Normal 0.0-0.5 [facility] Comment on above: Performed By: #### C BC ####[facility] [address] [place], [place] [address]Dr. Tapan Gordon LYMPH # 1.5 103/ul Normal 1.2-3.8 [facility] Comment on above: Performed By: #### C BC ####[facility] [address] [place], [place] [address]Dr. Tapan Gordon Lymphocytes/100 WBC (Bld) 23.4 % Normal 20.5-60.0 [facility] Comment on above: Performed By: #### C BC ####[facility] [address] [place], [place] [address]Dr. Tapna Gordon MANUAL DIFF REQ NO Normal [facility] Comment on above: Performed By: #### C BC ####[facility] [address] [place], [place] [address]Dr. Tapan Gordon MCH (RBC) [Entitic mass] 29.5 pg Normal 26.7-34.0 [facility] Comment on above: Performed By: #### C BC ####[facility] [address] [place] [address]Dr. Tapan Gordon MCHC (RBC) [Mass/Vol] 33.5 g/dL Normal 29.9-35.2 [facility] Comment on above: Performed By: #### C BC ####[facility] [address] [place] [address]Dr. Tapan Gordon MCV (RBC) [Entitic vol] 88.1 fL Normal 81.0-99.0 [facility] Comment on above: Performed By: #### C BC ####[facility] [address] [place] [address]Dr. Tapan Evan MONO # 0.6 103/ul Normal 0.3-0.8 [facility] Comment on above: Performed By: #### C BC ####[facility] [address] [place] [address]Dr. Tapan Evan Monocytes/100 WBC (Bld) 9.8 % Normal 1.7-12.0 [facility] Comment on above: Performed By: #### C BC ####[facility] [address] [place] [address]Dr. Tapan Gordon NEUT # 4.0 103/ul Normal 1.4-6.5 [facility] Comment on above: Performed By: #### C BC ####[facility] [address] [place], [place] [address]Dr. Tapan Evan Neutrophils/100 WBC (Bld) 63.6 % Normal 43.0-75.0 [facility] Comment on above: Performed By: #### C BC ####[facility] [address] [place] [address]Dr. Tapan Evan Platelet mean volume (Bld) [Entitic vol] 10.3 fL Normal 9.5-13.5 [facility] Comment on above: Performed By: #### C BC ####[facility] [address] [place], [place] [address]Jl. Tapan Gordon PLT 258 103/ul Normal 150-450 [facility] Comment on above: Performed By: #### C BC ####[facility] [address] [place], [place] [address]Fh. Tapan Gordon RBC 4.95 106/ul Normal 4.20-5.40 [facility] Comment on above: Performed By: #### C BC ####[facility] [address] [place], [place] [address]Kd. Tapan Gordon WBC 6.3 103/ul Normal 4.0-11.0 [facility] Comment on above: Performed By: #### C BC ####[facility] [address] [place], [place] [address]. [address] CT ABD/PELVIS WO CONon 06-19 [...] recently passed stone. Electronically authenticated by: BRAULIO RODARTEOWS Date: 2022-06-19 10:13 Normal [facility] ER URINE PROFILEon 2 Bilirubin Ql (U) Negative Normal NEGATIVE [facility] Comment on above: Performed By: #### U MICRO, ERUR #### [facility] [address] [place] [address] [address] Tapan Gordon Clarity (U) CLEAR Normal CLEAR [facility] Comment on above: Performed By: #### U MICRO, ERUR #### [facility] [address] [address] [address] Tapan Gordon Color (U) LT. YELLOW Normal YELLOW [facility] Comment on above: Performed By: #### U MICRO, ERUR #### [facility] [address] [place] [address] Dr. Tapan Gordon ERUAHD A micrscopic examination will be performed if indicated. Normal [facility] Comment on above: Performed By: #### U MICRO, ERUR #### [facility] [address] [address] [address] Tapan Gordon Glucose Ql (U) Negative Normal NEGATIVE The [facility] Comment on above: Performed By: #### U MICRO, ERUR #### [facility] [address] [address] [address] Tapan Gordon Hemoglobin Ql (U) LARGE Abnormal NEGATIVE The [facility] Comment on above: Performed By: #### U MICRO, ERUR #### [facility] [address] [address] [address] Tapan Gordon Ketones Ql (U) Negative Normal NEGATIVE [facility] Comment on above: Performed By: #### U MICRO, ERUR #### [facility] [address] [address] [address] Tapan Gordon LEUKOCYTES Negative Normal NEGATIVE [facility] Comment on above: Performed By: #### U MICRO, ERUR #### [facility] [address] [address] [address] Tapan Gordon Nitrite Ql (U) Negative Normal NEGATIVE The [facility] Comment on above: Performed By: #### U MICRO, ERUR #### [facility] [address] [address] [address] Tapan Gordon pH (U) 7.0 [pH] Normal 5-9 [facility] Comment on above: Performed By: #### U MICRO, ERUR #### [facility] [address] [address] [address] Tapan Gordon SPEC GRAVITY 1.015 Normal 1.005-<=1.025 [facility] Comment on above: Performed By: #### U MICRO, ERUR #### [facility] [address] [address] [address] Tapan Gordon UA PROTEIN TRACE Normal NEGATIVE/ TRACE [facility] Comment on above: Performed By: #### U MICRO, ERUR #### [facility] [address] [address] [address] Tapan Gordon UR MICRO IND INDICATED Normal [facility] Comment on above: Performed By: #### U MICRO, ERUR #### [facility] [address] [address] [address] Tapan Gordon Urobilinogen Qn (U) 2.0 {Aleida'U}/dL Abnormal 0.2 - 1. 0 [facility] Comment on above: Performed By: #### U MICRO, ERUR #### [facility] [address] [address] [address] Tapan Gordon LIPASEon 06-19-2022 Lipase [Catalytic activity/Vol] 182.0 U/L Normal 73.0-393.0 [facility] Comment on above: Performed By: #### C MP, YASH, LIPA ####[facility] [address] [address]Dr. Tapan Gordon OCC BLD IMMUNO SCREENon 05-22 OCCULT BLOOD Negative Normal NEGATIVE [facility] Comment on above: Performed By: #### O BSCRN ####[facility] [address] [address]Dr. Tapan Gordon PROF 14(COMP METB)on 022 Albumin [Mass/Vol] 3.5 g/dL Normal 3.4-5.[address] [facility] Comment on above: Performed By: #### C YASH COLLINS LIPA ####[facility] [address] [address]Dr. Tapan Gordon Albumin/Globulin [Mass ratio] 1.0 {ratio} Normal [facility] Comment on above: Performed By: #### C YASH COLLINS LIPA ####[facility] [address] [address]Dr. Tapan Gordon ALP [Catalytic activity/Vol] 76 U/L Normal 46-116 [facility] Comment on above: Performed By: #### C YASH COLLINS LIPA ####[facility] [address] [address]Dr. Malikapalma Gordon ALT [Catalytic activity/Vol] 64 U/L Critically high 14-59 [facility] Comment on above: Performed By: #### C YASH COLLINS LIPA ####[facility] [address] [place], [place] [address]Dr. Malikapalma Gordon Anion gap [Moles/Vol] 11.2 mmol/L Normal [facility] Comment on above: Performed By: #### C YASH COLLINS LIPA ####[facility] [address] [address]Dr. Malikapalma Gordon AST [Catalytic activity/Vol] 38 U/L Critically high 15-37 [facility] Comment on above: Performed By: #### C YASH COLLINS LIPA ####[facility] [address] [place], [place] [address]Dr. Malikapalma Gordon Bilirubin [Mass/Vol] 0.7 mg/dL Normal 0.2-1.0 [facility] Comment on above: Performed By: #### C YASH COLLINS LIPA ####[facility] [address] [address]Dr. Tapan Gordon Calcium [Mass/Vol] 8.7 mg/dL Normal 8.5-10.1 [facility] Comment on above: Performed By: #### C YASH COLLINS LIPA ####[facility] [address] [address]Dr. Tapan Gordon Chloride [Moles/Vol] 104 mmol/L Normal 98-107 [facility] Comment on above: Performed By: #### C MP, YASH, LIPA ####[facility] [address] [address]Dr. Tapan Gordon CO2 [Moles/Vol] 29.6 mmol/L Normal 21.0-32.0 The [facility] Comment on above: Performed By: #### C MP, YASH, LIPA ####[facility] [address] [address]Dr. Tapan Gordon Creatinine [Mass/Vol] 0.85 mg/dL Normal 0.55-1.02 [facility] Comment on above: Performed By: #### C MP, YASH, LIPA ####[facility] [address] [place], [place] [address]Dr. Tapan Gordon EGFR-AF BELGIAN >60 Normal >=60 The [facility] Comment on above: Performed By: #### C MP, YASH, LIPA ####[facility] [address] [place], [place] [address]Dr. Tapan Gordon EGFR-NON AF BELGIAN >60 Normal >=60 [facility] Comment on above: Performed By: #### C MP, YASH, LIPA ####[facility] [address] [address]Dr. Tapan Gordon Globulin (S) [Mass/Vol] 3.6 g/dL Normal [facility] Comment on above: Performed By: #### C MP, YASH, LIPA ####[facility] [address] [address]Dr. Tapan Gordon Glucose [Mass/Vol] 125 mg/dL Critically high 74-106 [facility] Comment on above: Performed By: #### C MP, YASH, LIPA ####[facility] [address] [address]Dr. Tapan Gordon Potassium [Moles/Vol] 3.8 mmol/L Normal 3.5-5.1 [facility] Comment on above: Performed By: #### C YASH COLLINS, LIPA ####[facility] [address] [address]Dr. Tapan Gordon Protein [Mass/Vol] 7.1 g/dL Normal 6.4-8.2 [facility] Comment on above: Performed By: #### C KARINA YASH, LIPA ####[facility] [address] [address]Dr. Tapan Gordon Sodium [Moles/Vol] 141 mmol/L Normal 136-145 [facility] Comment on above: Performed By: #### C KARINA YASH, LIPA ####[facility] [address] [address]Dr. Tapan Gordon Urea nitrogen [Mass/Vol] 22.0 mg/dL Critically high 7.0-18.0 [facility] Comment on above: Performed By: #### C YASH COLLINS, LIPA ####[facility] [address] [address]Dr. Tapan Gordon Urea nitrogen/Creatinine [Mass ratio] 25.9 mg/mg Normal [facility] Comment on above: Performed By: #### C YASH COLLINS, LIPA ####[facility] [address] [address]Dr. Tapan Gordon URINE MICROSCOPIC ONLYon BACTERIA TRACE Abnormal NONE SEEN [facility] Comment on above: Performed By: #### U MICRO, ERUR #### [facility] [address] [address] [address] Tapan Gordon Bacteria identified Cx Nom (U) NOT INDICATED Normal [facility] Comment on above: Performed By: #### U MICRO, ERUR #### [facility] [address] [address] [address] Tapan Gordon CAST NONE SEEN Normal NONE SEEN [facility] Comment on above: Performed By: #### U MICRO, ERUR #### [facility] [address] [address] [address] Tapan Gordon Crystals LM Nom (Urine sed) NONE SEEN Normal NONE SEEN [facility] Comment on above: Performed By: #### U MICRO, ERUR #### [facility] [address] [address] [address] Tapan Gordon Epithelial cells LM Ql (Urine sed) FEW Abnormal NONE SEEN /RARE [facility] Comment on above: Performed By: #### U MICRO, ERUR #### [facility] [address] [address] [address] Tapan Gordon MUCOUS NONE SEEN Normal NONE SEEN [facility] Comment on above: Performed By: #### U MICRO, ERUR #### [facility] [address] [address] [address] Tapan Gordon RBC 20-50 Abnormal 0-2 [facility] Comment on above: Performed By: #### U MICRO, ERUR #### [facility] [address] [place] [address] Dr. Tapan Gordon WBC NONE SEEN Normal NONE SEEN [facility] Comment on above: Performed By: #### U MICRO, ERUR #### [facility] [address] [address] [address] LUNG CANCER SCREENINGon [...] XAVIER GONZALES Date: 2022-05-29 07:22 Normal [facility] XR hip RT min 2V(w/wo pelvis )*on 11-30-2020 XR hip RT min 2V(w/wo pelvis)* [facility] [place] [address] [place] [address] XRay Report Signed Patient: Robyn Thorpe MR#: [id number] : 1955 Acct:[id number] Age/Sex: 64 / F ADM Date: 11/30/20 Loc: XD Room: Type: [facility] CLI Attending Dr: Brian Ariza DO Ordering Provider: Brian Ariza DO Date of Service: 11/30/20 XR/XR chest 2V*: S/P TRAUMA ([id number]) XR/XR hip RT min 2V(w/wo pelvis)*: S/P,PAIN RIGHT HIP ([id number]) XR/XR lumbar spine min 4V*: S/P,PAIN RIGHT [...] Robyn Gardiner M.D.11/30/2020 12:21 PM Dictation [id number] Transcribed By: NADIA 11/30/20 1221 Dictated By: Robyn Gardiner MD 11/30/20 1214 Signed By: 11/30/20 1221 [facility] Vital Signs Date Time Vital Sign Value Performing Clinician Faci lity 12-04-2023 15:54-0500 Body height 161.3 cm Cristobal White DPM Work Phone: [facility] 12-04-2023 15:54-0500 Body mass index (BMI) [Ratio] 35.22 kg/m2 Cristobal White DPM Work Phone: [facility] 12-04-2023 15:54-0500 Body weight 91.63 kg Cristobal White DPM Work Phone: [facility] 12-04-2023 15:54-0500 Diastolic blood pressure 81 mm[Hg] Cristobal White DPM Work Phone: [facility] 12-04-2023 15:54-0500 Heart rate 88 /min Cristobal White DPM Work Phone: [facility] 12-04-2023 15:54-0500 Systolic blood pressure 131 mm[Hg] Cristobal White DPM Work Phone: [facility] Healthcare Encounters Encounter Date Encounter Type Care Provider Facility Start: 06-02-2024 End: 06-04-2024 ambulatory JASON Del Rosario [facility] Start: 04-29-2024 End: 04-29-2024 ambulatory CRISTOBAL WHITE Not Available Start: 04-12-2024 End: 04-12-2024 ambulatory [facility] Start: 03-11-2024 End: 03-11-2024 ambulatory CRISTOBAL WHITE Not Available Start: 02-19-2024 End: 02-19-2024 ambulatory CRISTOBAL WHITE Not Available Start: 01-15-2024 [facility] Comment on above: Chronic bronchitis w ith emphysema; Arthritis, multiple joint involvement; Anxiety and depression; Fibromyalgia; Acquired hypothyroidism; Benign essential HTN; Primary insomnia; History of kidney stones Start: 01-13-2024 [facility] Comment on above: Chronic bronchitis w ith emphysema; Arthritis, multiple joint involvement; Anxiety and depression; Fibromyalgia; Acquired hypothyroidism; Benign essential HTN; Primary insomnia Start: 12-11-2023 End: 12-12-2023 [facility] Start: 12-11-2023 End: 12-11-2023 [facility] Start: 12-04-2023 End: 12-04-2023 Office [...] PODIATRY Start: 11-17-2023 Telephone encounter Hilario Hurst [facility] Start: 11-17-2023 End: 11-17-2023 ambulatory PRANAV ORTEZ [facility] Start: 06-10-2023 End: 06-10-2023 ambulatory [facility] Start: 05-23-2023 End: 05-23-2023 ambulatory [facility] Start: 01-03-2023 End: 01-03-2023 Patient encounter status Jairo Daley APRN - CHIEF ORDER DISPATCHER Work Phone: [facility] Start: 01-03-2023 End: 01-03-2023 Subsequent hospital visit by physician Jairo Daley APRN - CHIEF ORDER DISPATCHER Work Phone: [facility] Comment on above: Renal calculus; Pre-op testing Start: 12-26-2022 End: 12-28-2022 Subsequent hospital visit by physician [facility] Scan Room [facility] Laboratory Comment on above: Renal calculus; Gross hematuria Start: 12-12-2022 End: 12-12-2022 Subsequent hospital visit by physician Jairo Daley APRN - CHIEF ORDER DISPATCHER Work Phone: [facility] Laboratory Comment on above: Renal calculus; Gross hematuria Start: 12-03-2022 End: 12-03-2022 ambulatory JANEEN POOLE Facility:[facility] Start: 10-21-2022 End: 10-22-[address] EULALIO MENESES Facility:[facility] Start: 09-11-2022 End: 09-22-2022 Emergency department patient visit RANDAL Luis Alberto DIANA Facility:[facility] Start: 08-13-2022 End: 08-14-[address] [...] Adult depression scr eening assessment Isidra Vanesa [facility] Start: 08-20-2023 Adult depression scr eening assessment Adysan Sleek [facility] INTER[facility] Start: 01-03-2023 Ecg routine ecg w/le ast 12 lds w/i&r Adele Black FRONT OFFICE ADMINISTRATOR - CHIEF ORDER DISPATCHER Work Phone: Start: 01-03-2023 Basic metabolic pane l calcium total Adele Cejaell FRONT OFFICE ADMINISTRATOR - CHIEF ORDER DISPATCHER Work Phone: Start: 12-26-2022 Ct abdomen & pelvis w/o contrst 1/> body re Jason Au MD Work Phone: Start: 12-26-2022 Assay of urea nitrog en quantitative Jason Au MD Work Phone: Start: 12-12-2022 Urnls dip stick/tabl et reagent auto microscopy Jason Au MD Work Phone: Start: 08-13-2022 Mammography Adysan Sle ek CAD INTERN Plan of Treatment Date Care Activity Detail Author Start: 12-11-2024 Adult BMI Follow Up Plan Adult BMI F ollow Up Plan [facility] Start: 12-11-2024 Adult BMI Screening Adult BMI Screen ing [facility] Start: 12-11-2024 Depression Screening Depression Scre ening [facility] Start: 12-11-2024 Fall Risk Screening Fall Risk Screen ing [facility] Start: 12-11-2024 Tobacco Screening Tobacco Screening [facility] Start: 08-20-2024 Adult BMI Follow Up Plan Adult BMI F ollow Up Plan [facility] Start: 08-20-2024 Adult BMI Screening Adult BMI Screen ing [facility] Start: 08-20-2024 Depression Screening Depression Scre ening [facility] Start: 08-20-2024 Fall Risk Screening Fall Risk Screen ing [facility] Start: 08-20-2024 Medicare Annual Well ness Visit Medicare Annual Wellness Visit [facility] Start: 08-20-2024 Tobacco Screening Tobacco Screening [facility] Start: 04-12-2024 End: 04-12-2024 Patient encounter procedure 04/12/2024 9:40 AM EDT [facility] [address] [place] [address] Jairo Daley, FRONT OFFICE ADMINISTRATOR-CHIEF ORDER DISPATCHER [address] [place] [address] [facility] Start: 02-12-2024 End: 02-12-2024 Patient encounter procedure 02/12/2024 4:40 PM EDT Procedure Visit [facility] [address] [facility] [address] [place] [address] Cristobal White DPM [address] [facility] [address] [place] [address] [facility] Start: 01-07-2024 Tobacco Counseling Tobacco Counselin g [facility] Start: 12-18-2023 End: 12-18-2023 Clinical Support 12/18/2023 8:50 AM EST Clinical Support [facility] [address] [facility] [address] [place] [address] Cristobal White DPM [address] [facility] [address] [place] [address] [facility] Start: 12-11-2023 End: 12-11-2023 Patient encounter procedure 12/11/2023 9:45 AM EST [facility] [address] [place] [address] Jaior Daley, FRONT OFFICE ADMINISTRATOR-CHIEF ORDER DISPATCHER [address] [place] [address] [facility] Start: 12-04-2023 End: 12-04-2023 Patient encounter procedure 12/04/2023 4:00 PM EST Office Visit [facility] [address] [facility] [address] [place] [id number] Cristobal White, DPM [address] [facility] [address] [place] [address] [facility] Start: 08-13-2023 Screening for malign ant neoplasm of breast Mammogram [facility] Start: 06-20-2023 COVID-19 Vaccine () COVID-19 Vaccine () [facility] Start: 01-21-2023 End: 01-21-2023 Admission to same day surgery center 01/21/2023 Surgery IP Unit Jason Au MD [address] [place] [address], [address] [place], [place] [id number] ESWL EXTRACORPOREAL SHOCK WAVE LITHOTRIPSY [facility] Comment on above: ESWL EXTRACORPOREAL SHOCK WAVE LITHOTRIPSY Start: 01-21-2023 End: 01-21-2023 Lithotripsy xtrcorp shock wave ESW[facility] EXTRACORPOREAL SHOCK WAVE LITHOTRIPSY Renal calculus 01/21/2023 7:30 AM EDT [facility] Start: 01-21-2023 Subsequent hospital visit by physician 01/21/2023 Hospital Encounter IP Unit Jason Au MD [address] [place] [address], [address] [place] [address] [facility] Start: 12-31-2022 End: 12-31-2022 Patient encounter procedure 12/31/2022 Appointment Radiology [facility] CT Scan Start: 12-12-2022 Annual Wellness Visi t (AWV) Annual Wellness Visit (AWV) [facility] Start: 2011 Screening for osteoporosis DEXA (modify frequency per FRAX score) [facility] Start: 2006 Administration of varicella zoster vaccine Zoster (Shingles) Vaccine (1 of 2) [facility] Start: 2006 Screening for malign ant neoplasm of breast Breast cancer screen [facility] Start: 2006 Shingles vaccine (1 of 2) Shingles vaccine (1 of 2) [facility] Start: 2001 Screening for malign ant neoplasm of colon [facility] Start: 1996 Lipid panel Lipids [facility] Start: 1991 Diabetes screen Diabetes screen [facility] Start: 1975 DTaP,Tdap and Td Vaccines (1 - Tdap) DTaP,Tdap and Td Vaccines (1 - Tdap) [facility] Start: 1975 DTaP/Tdap/Td vaccine (1 - Tdap) DTaP/Tdap/Td vaccine (1 - Tdap) [facility] Start: 1974 Hepatitis C screening Hepatitis C sc reen [facility] Start: 1968 Depression Screen Depression Screen [facility] Start: 06-05-1957 COVID-19 Vaccine (#1) COVID-19 Vacci ne (#1) [facility] Start: 1956 Screening for malign ant neoplasm of colon [facility] Start: 1956 Tobacco Counseling Tobacco Counselin g [facility] End: 12-12-2022 Culture, Urine [facility] Work Phone: Comment on above: 1 Occurrences starti ng 12/12/2022 until 12/12/2022 US Lower extremity - right US foot right Imaging Routine Other specified disorders of synovium, right ankle and foot Ordered: 12/04/2023 [facility] Healthcare Work Phone: Comment on above: Ordered: 12/04/2023 Immunizations Immunization Date Immunization Notes Care Provider Cristine hunt 08-20-2023 Influenza Vaccine, Quadrivalent, Adjuvanted Adysan Sleek [facility] 10-02-2022 Pneumococcal Conjuga te 20-valent Adysan Sleek [facility] 10-02-2022 pneumococcal conjuga te vaccine, 7 valent Adysan Sleek [facility] 07-30-2022 Influenza Vaccine, Quadrivalent, Adjuvanted Adysan Sleek [facility] Payers Date Payer Category Payer Unknown [id number] 2024 Unknown [id number] 2023 Medicaid [id number] 2023 Medicare [id number] 2023 Medicare [id number] 2022 Medicaid [place] -[place] ONLY [id number] 2022-Present [phone] [address] [place] [address] [id number] 2022 Medicare [id number] [id number] 2017 Medicare [id number] [id number] 2017 Unknown [id number] 1959 Medicaid [id number] 1959 Medicare [id number] 1959 Unknown [id number] 1956 Unknown [id number] 1956 Unknown [id number] .840.1.568945.3.579.2.593 1955 Unknown [id number] ..840.1.619909.3.579.2.593 1955 Unknown [id number] .16.840.1.834404.3.579.2.593 1956 Unknown [id number] 2.16.840.1.737019.3.579.2.593 1956 Unknown [id number] 2.16.840.1.320143.3.579.2.593 1956 Unknown [id number] 2.16.840.1.961267.3.579.2.593 1956 Unknown [id number] 2.16.840.1.912140.3.579.2.593 1956 Unknown [id number] 2.16.840.1.478390.3.579.2.593 1956 Unknown [id number] 2.16.840.1.399850.3.579.2.593 1956 Unknown [id number] 2.16.840.1.854118.3.579.2.1286 1956 Unknown [id number] 2.16.840.1.133470.3.579.2.1286 1956 Unknown [id number] 2.16.840.1.185643.3.579.2.1286 1956 Unknown [id number] 2.16.840.1.638292.3.579.2.1259 1956 Unknown [id number] 2.16.840.1.833618.3.579.2.1259 1956 Unknown [id number] 2.16.840.1.529079.3.579.2.1259 1956 Unknown [id number] 2.16.840.1.335908.3.579.2.1259 1956 Unknown [id number] 2.16.840.1.943541.3.579.2.173 1955 Unknown [id number] 2.16.840.1.007265.3.579.2.173 Social History Date Type Detail Facility Start: 12-12-2022 End: 03-03-2023 Tobacco smoking status HIIS Smokes tobacco daily [facility] Phone: History of tobacco use Cigarette Smoker [facility] Phone: Start: 12-12-2022 End: 12-11-2023 Cigarettes smoked current (pack per day) - Reported 0.5 [facility] Phone: Start: 12-12-2022 End: 03-03-2023 Tobacco use and exposure Smokeless tobacco non-user [facility] Phone: Start: 12-12-2022 End: 12-11-2023 Alcohol intake Current drinker of alcohol (finding) [facility] Phone: Start: 12-12-2022 Tobacco Comment Smokes 6-8 cigs/day [facility] Phone: Start: 12-12-2022 Alcohol Comment Beer 2-3 every 2 wee ks [facility] Phone: Start: 1955 Sex Assigned At Not on file [facility] Phone: Start: 08-20-2023 End: 12-11-2023 Tobacco use panel [employer] Adolescent depressio n screening assessment 0 [employer] Start: 02-20-2022 Alcohol Comment on weekends, n ot often. [employer] Start: 12-04-2023 Tobacco smoking stat [facility] Never smoked tobacco [facility] History of tobacco use Passive smoker [facility] Start: 12-04-2023 Alcohol intake Ex-drinker (finding) [facility] How often to you hav e a drink containing alcohol? 2-4 times a month [facility] Start: 12-04-2023 Alcohol Comment coffee daily [facility] Clinical Notes 03-08-2022 to 01-15-2024 Telephone Encounter - Isidra Alexis, [facility] - 01/15/2024 12:05 PM EDTTelephone Encounter - Isidra Alexis, [facility] - 01/15/2024 12:05 PM Nohemy White, [facility] - 12/04/2023 4:00 PM EST Note Date & Type Note Facility 01-15-2024 Miscellaneous Notes They [facility] the [facility] 01-15-2024 Telephone encounter Note They [facility] 12-04-2023 History of Presen t illness Narrative [...] History: Diagnosis Date Allergies Anxiety Arthritis Asthma ([facility]) Cervical cancer ([facility] [facility]) COPD (chronic obstructive pulmonary disease) ([facility]) Depression ([facility]) History of medical problems knee scraping for knee replacement HTN (hypertension) ([facility]) Kidney disease Medications: Current Outpatient Medications: albuterol [...] Cristobal White DPM documented in this encounter [facility] 11-17-2023 Note [facility] Card[facility] Clinic Note Chief Complaint: Patient here [...] mouth in the morning., Disp: , Rfl: hkczengqqsj-nvnczvmdh-atauxjta 100-62.5-25 mcg blister with device, INHALE 1 [...] s (more content not included)... [facility] 11-17-2023 Miscellaneous Notes Patient called into office requesting Referral Tarun White [facility] for podiatry in [place] I do need a reason (diagnosis is required) to why she wants a referral. Patient would like her toe nails trimmed, she stated that her hand strength isn't there to cut them herself anymore. done documented in this encounter [facility] 11-17-2023 Telephone encounter Note Patient called into office requesting Referral Tarun White [facility] for podiatry in [place] [facility] 11-17-2023 Telephone encounter Note I do need a reason (diagnosis is required) to why she wants a referral. [facility] 11-17-2023 Telephone encounter Note Patient would like her toe nails trimmed, she stated that her hand strength isn't there to cut them herself anymore[facility] done [facility] 06-25-2023 Note HTN remains uncontro lled therefore script to increase lisinopril to 10 mg daily. Repeat BMP in 1 week Reviewed labs from 06/19/23 and renal function, liver function and cholesterol are normal and well controlled K+ 5.0- will monitor Veronica Flor RESIDENT SERVICES DIRECTOR Division of Cardiology, [facility]- [phone] Pager- [phone] Email- [email or web address] 06-10-2023 Note Increase lisinopril to 5 mg daily Continue monitoring b/p at home and staff to call in 1-2 weeks to review b/p If remains > 130/80 may transition metoprolol to coreg [facility] 06-10-2023 Note Echo reviewed with p t and noted Mod MV regurg [facility] 06-10-2023 Note Hypertension is unco ntrolled Increase lisinopril to 5 mg daily Continue metoprolol, aldactone and check BMP in 1 week to monitor renal function D/W pt about HTN with voltaren and she is not willing to stop at this time. [facility] 06-10-2023 Note [facility] ESS [...] 10 mg by mouth in the morning. fbqylyxvtku-jlfxwrqmp-fibwwvra 100-62.5-25 mcg blister with device INHALE 1 [...] weeks to review B/P log [facility] 06-02-2023 Note Hypertension is unco ntrolled with pt reporting very elevated B/p in the mornings despite starting aldactone. Will add lisinopril in the pm daily for better HTN management [facility] 05-23-2023 Note F/u with PCP [facility] 05-23-2023 Note Tobacco use is uncha nged- pt is not willing to quit smoking at this time [facility] 05-23-2023 Note Stable with metoprolol [facility] 05-23-2023 Note Repeat echo ordered in light of SOB with exertion and MR noted on prior echo [facility] 05-23-2023 Note Hypertension is elev ated continue all meds and will add aldactone to regime Repeat BMP in 1 week to assess renal function and electrolytes and pt voiced understanding [facility] 05-23-2023 Note Stable [facility] 05-23-2023 Note [facility] C[facility] PRO[facility] ESS NOTE [...] 10 mg by mouth in the morning. ixruoybhwhd-zmgzyzxre-foymvqia 100-62.5-25 mcg blister with device INHALE 1 [...] moderate COPD vs asthma Cath 2017 at [facility]: non obstructive cors, possible bridging of LAD [...] chest (more content not included)... [facility] 05-23-2023 Note Patient here for 1 [...] systems reviewed and are negative. [facility] 07-03-2022 Note PROCEDURE: XR ANKLE RT [...] authenticated by: YANELIS ENGEL Date: 2022-07-03 10:27 [facility] 04-03-2022 Note PROCEDURE: XR ANKLE RT [...] by: YANELIS ENGEL Date: 2022-04-03 15:51 [facility] 04-03-2022 Note PROCEDURE: XR ANKLE [...] by: YANELIS ENGEL Date: 2022-04-03 15:51 [facility] 03-08-2022 Note PROCEDURE: XR ELBOW RT MIN 3 VIEWS HISTORY: Pain ; right elbow pain and contusion after falling COMPARISON: None. FINDINGS: BONES:No fracture, acute abnormality, or significant arthropathy. SOFT TISSUES:No visible soft tissue swelling. EFFUSION:None visible. OTHER: Negative. IMPRESSION: 1. No acute bone abnormality. 2. Minimal degenerative changes. Electronically authenticated by: YANELIS ENGEL Date: 2022-03-08 12:09 [facility] Evaluation note Diagnosis Renal calculus Calculus of kidney Gross hematuria documented in this encounter [facility] [employer] Phone: evaluation note* Diagnosis Renal calculus Calculus of kidney Gross hematuria documented in this encounter [employer] Phone: [email or web address] note* Diagnosis Renal calculus Calculus of kidney Gross hematuria documented in this encounter [employer] Phone: evaluation note* Diagnosis Renal calculus Calculus of kidney Pre-op testing Preoperative examination, unspecified Renal calculus Calculus of kidney documented in this encounter [employer] Phone: evaluation note* Diagnosis Renal calculus Calculus of kidney Pre-op testing Preoperative examination, unspecified Renal calculus Calculus of kidney documented in this encounter GUALBERTO MA[facility] [employer] Phone: evaluation note* Diagnosis Hx of onychomycosis- Primary [facility] Diagnosis DJD (degenerative joint disease), ankle and foot, right- Primary Other specified disorders of synovium, right ankle and foot Onychomycosis Dermatophytosis of nail Toe pain, bilateral documented in this encounter [facility] Healthcare[facility] note* Diagnosis Chronic bronchitis with emphysema ([facility]) Obstructive chronic bronchitis without exacerbation Arthritis, multiple joint involvement Unspecified arthropathy, multiple sites Anxiety and depression Fibromyalgia Unspecified myalgia and myositis Acquired hypothyroidism Unspecified hypothyroidism Benign essential HTN Primary insomnia Persistent disorder of initiating or maintaining sleep [facility] Diagnosis Chronic bronchitis with emphysema ([facility]) Obstructive chronic bronchitis without exacerbation [...] SystemInstructionsNot on filedocumented in this encounter [facility] SystemReason for referral (narrative)* Consultation (Routine) - Pending Review Specialty Diagnoses / Procedures Referred By Gregor prabhakar Referred To Contact Podiatry Diagnoses Hx of onychomycosis Jairo Daley APRN-CHIEF ORDER DISPATCHER [address] [place] [address] Cristobal White DPM [address] [address] Referral ID Status Reason Start Date Expiration Date Visits Requested Visits Authorized [id number] Pending Review Specialty Services Required 11/17/2023 11/16/2024 1 1 [facility] Summary Purpose Family History No Family History [...] & PELVIS W/O CONTRST 1/> [place] [id number] - CHG CT ABDOMEN & PELVIS W/O CONTRST 1/> BODY RE Jason Au MD [address] [facility], [address] [place] [address] Referral ID Status Reason Start Date Expiration Date Visits Re quested Visits Authorized [id number] Closed 12/12/2022 12/12/2023 1 1 Specialty Diagnoses / Procedures Referred By Contac t Referred To Contact Cardiology Diagnoses Renal calculus Pre-op testing Procedures EKG 12 Lead Adele Black, FRONT OFFICE ADMINISTRATOR - CHIEF ORDER DISPATCHER [address] [facility] [address] [place] [address] Referral ID Status Reason Start Date Expiration Date Visits Re quested Visits Authorized [id number] Open 01/02/2023 01/02/2024 1 1 Additional Source Comments INFORMATION SOURCE (unrecogn ized section and content) DATE CREATED AUTHOR 11/26/2021 [facility] DATE CREATED AUTHOR AUTHOR'S ORGANIZ ATION 09/22/2022 [facility] DATE CREATED AUTHOR AUTHOR'S ORGANIZ ATION 03/03/2023 [facility] DATE CREATED AUTHOR AUTHOR'S ORGANIZ ATION 11/21/2023 [facility] DATE CREATED AUTHOR AUTHOR'S ORGANIZ ATION 12/19/2023 [facility] DATE CREATED AUTHOR AUTHOR'S ORGANIZ ATION 04/12/2024 [facility] DATE CREATED AUTHOR AUTHOR'S ORGANIZ ATION 05/05/2024 [facility] EPIC DATE CREATED AUTHOR AUTHOR'S ORGANIZ ATION 06/06/2024 [facility] Care Teams (unrecognized sec tion and content) Clinical Research Associate Relationship Specialty Start Date End Date Jairo Daley FRONT OFFICE ADMINISTRATOR - CHIEF ORDER DISPATCHER [address] [place] [address] PCP - General 12/12/22 Clinical Research Associate Relationship Specialty Start Date End Date Jairo Daley FRONT OFFICE ADMINISTRATOR - CHIEF ORDER DISPATCHER [address] [place] [address] PCP - General 12/12/22 Clinical Research Associate Relationship Specialty Start Date End Date Jairo Daley FRONT OFFICE ADMINISTRATOR - CHIEF ORDER DISPATCHER [address] [place] [address] PCP - General 12/12/22 Clinical Research Associate Relationship Specialty Start Date End Date Jairo Daley APRN - CHIEF ORDER DISPATCHER [address] [place] [address] PCP - General 12/12/22 Clinical Research Associate Relationship Specialty Start Date End Date Jairo Daley [facility] [address] [place] [address] PCP - General Family Medicine 02/20/22 Clinical Research Associate Relationship Specialty Start Date End Date Jairo Daley FRONT OFFICE ADMINISTRATORCHIEF ORDER DISPATCHER [address] [place] [address] PCP - General Family Medicine 02/20/22 Clinical Research Associate Relationship Specialty Start Date End Date Jairo Daley, FRONT OFFICE ADMINISTRATOR-CHIEF ORDER DISPATCHER [address] [place] [address] PCP - General Family Medicine 02/20/22 Reason for Visit (unrecogniz ed section and content) Specialty Diagnoses / Procedures Referred By Contac t Referred To Contact Radiology Diagnoses Renal calculus Gross hematuria Renal Calculus [N20.0] Gross Hematuria [R31.0] Procedures CT UROGRAM CHG CT ABDOMEN & PELVIS W/O CONTRST 1/> [place] [id number] - CHG CT ABDOMEN & PELVIS W/O CONTRST 1/> BODY RE Jason Au MD [address] [place] [address], [address] [place] [address] Referral ID Status Reason Start Date Expiration Date Visits Re quested Visits Authorized [id number] Closed 12/12/2022 12/12/2023 1 1 Reason Comments DM Foot Care Dm Nails/ fungus Specialty Diagnoses / Procedures Referred By Contlou t Referred To Contact Podiatry Diagnoses Hx of onychomycosis Procedures AMB REFERRAL TO PODIATRY Jairo Daley CRNP [address] [place] [address] Cristobal White DPM [address] [place] [address] Referral ID Status Reason Start Date Expiration Date Visits Re quested Visits Authorized [id number] Closed 11/17/2023 11/16/2024 1 1 Reason Onset [...] BE BASED ON THE PRIMARY CLINICAL RECORDS. [facility] [employer] [facility]. provides no warranty or guarantee of the accuracy or completeness of information in this document.
== END 2024-06-07 08:33 | disposition home or self-care (01) ==
LOC: EC 08:33
PROVIDERS: PCP Nurse Practitioner; Visit Provider Orthopaedic Surgery
DX: S52.551D Other extraarticular fracture of lower end of right radius, subsequent encounter for closed fracture with routine healing (principal)
CPT/HCPCS: 73110

== ENCOUNTER 2024-07-05 07:58 | Outpatient (OUT) | payer MEDICARE, SELFPAY ==
--- NOTE | 2024-07-05 | XR_ITS ---
The [address] [address] Patient Name: FRANKO NUNEZ MRN: [id number] date: 1955 Sex: F Assigned Patient Location: Current Patient Location: Accession/Order Number: [id number] Exam Date: 07/05/2024 08:25 Report Date: 07/05/2024 15:55 At the request of: YANELIS SHOOK Procedure: XR wrist RT min 3V EXAM: XR wrist RT min 3V HISTORY: RIGHT WRIST PAIN COMPARISON: 06/07/2024 TECHNIQUE: 3 views of the right wrist were obtained. FINDINGS: The circular cast has been removed. There is no apparent acute fracture or dislocation. The previously identified fracture of the distal radius has healed. Mild degenerative changes are seen at the distal radioulnar joint with ulnar minus variance present. There is mild narrowing at the first carpometacarpal joint. XR/XR wrist RT min 3V IMPRESSION: A circular cast has been removed. There is no evidence of an acute fracture or dislocation. Mild degenerative changes are present. Electronically authenticated by: SUNNY SKINNER Date: 07/05/2024 15:55
== END 2024-07-05 07:59 | disposition home or self-care (01) ==
PROVIDERS: PCP Nurse Practitioner; Visit Provider Orthopaedic Surgery
DX: S52.551D Other extraarticular fracture of lower end of right radius, subsequent encounter for closed fracture with routine healing (principal)
CPT/HCPCS: 73110

== ENCOUNTER 2024-07-26 10:51 | Outpatient (OUT) | payer MEDICARE, SELFPAY ==
--- NOTE | 2024-07-26 | XR_ITS ---
[address] [address] Patient Name: FRANKO NUNEZ MRN: [id number] date: 1955 Sex: F Assigned Patient Location: Current Patient Location: Accession/Order Number: [id number] Exam Date: 07/26/2024 10:53 Report Date: 07/26/2024 16:01 At the request of: YANELIS SHOOK Procedure: XR knee RT 4V PROCEDURE: XR knee RT 4V COMPARISON: None. HISTORY: RIGHT KNEE PAIN FINDINGS: BONES:No acute fracture or dislocation. Tricompartmental osteoarthropathy with mild narrowing of the medial joint space. Marginal osteophyte formation. SOFT TISSUES:Negative. No visible soft tissue swelling. EFFUSION:None visible. OTHER: Negative. XR/XR knee RT 4V IMPRESSION: Mild osteoarthritis Electronically authenticated by: XAVIER GONZALES Date: 07/26/2024 16:01
--- OUTSIDE RECORDS SUMMARY | 2024-07-26 11:06 | XMS_ITS | CCD ---
Author Organization [facility] Care Team Providers Care Home Economist Name Role Phone RANDAL ORTIZ Attending Unavailable Daley SPLITTING MACHINE FEEDER - BAR PILOT, Jairo J Primary Care Prov ider BRAULIO LASSITER Consulting Unavailable AJIT ., [...] Care Unavailable TIMMIS, DR TSAI Attending Unavailable TIMANNES, DR TSAI Admitting Unavailable ZIEBER, DR YANELIS Zaldivar Consulting Unavailable ZIEBYADI, DR YANELIS Zaldivar Consulting Unavailable DALEY, JIARO Primary Care Unavailable SUNNY VALENTIN Attending Unavailable SUNNY VALENTIN Admitting Unavailable SUNNY VALENTIN Consulting Unavailable WEST, DR XAVIER Gonzalez Consulting Unavailable DALEY, JAIRO Primary Care Unavailable SAMSA ., FAN Attending Unavailable SAMSA ., FAN Admitting Unavailable SAMSA ., FAN Consulting Unavailable DR YANELIS ENGEL Consulting Unavailable DALEY, JAIRO Primary Care Unavailable SUNNY VALENTIN Attending Unavailable SUNNY VALENTIN Admitting Unavailable SUNNY VALENTIN Consulting Unavailable Daley SPLITTING MACHINE FEEDER-BAR PILOT, Jairo J Primary Care Provid er Unavailable Primary Care Provider Unavailabl e DALEY, JAIRO J Referring Unavailable DALEY, JAIRO J Primary Care Unavailable DALEY, JAIRO J Attending Unavailable DALEY, JAIRO J Referring Unavailable DALEY, JAIRO J Primary Care Unavailable DALEY, JAIRO J Attending Unavailable DALEY, JAIRO J Referring Unavailable DALEY, JAIRO J Primary Care Unavailable PRANAV TRINIDAD Attending Unavailable Daley SPLITTING MACHINE FEEDER - BAR PILOT, Jairo J Primary Care [facility] ider CRISTOBAL WHITE Attending Unavailable DALEY, JAIRO Referring [...] Unavailable DALEY, JAIRO J Primary Care Unavailable Daley, Jairo J Primary Care Unavailable Asaad, Imad Attending Unavailable Asaad, Imad Admitting Unavailable MD Wanda Hagan Attending Provider [phone] LINDA Daleyerie J Primary Care Provider Allergies Allergy Classification Reported Allergen(s) Allergy Type Date of Onset Reaction(s) Facility (6 sources) Silicone adhesive tape Propensity to adverse reactions to drug 3 [facility] (1 source) bee venom Drug allergy (disorder) 6 [facility] (1 source) Latex Drug allergy (disorder) [facility] (6 sources) Adhesive agent; Translations: [ADHESIVE] Propensity to adverse reactions to drug 3 Rash [facility] (7 sources) Lisinopril; Translations: [LISINOPRIL] Drug Allergy 3 Cough [facility] (6 sources) Bee Venom Protein (Honey Bee); Translations: [BEE VENOM PROTEIN (HONEY BEE)] Propensity to adverse reactions to drug 3 [facility] (2 sources) Honey bee venom Allergy to substance 3 Anaphylaxis [facility] (2 sources) Lisinopril Propensity to adverse reactions 3 Cough [facility] (2 sources) Attends Briefs Small Drug Intolerance 3 Rash [facility] NEGATED: Highlighted row has been ruled out! (6 sources) Other Propensity to adverse reactions 2 [facility] Medications Current Medications Medication Drug Class(es) Dates Sig (Normalized) Sig (Original) acetaminophen 500 mg / HYDROcodone bitartrate 7.5 mg oral tablet (6 sources) Opioid Agonist take 1 tablet by mouth once as needed, then take 1 tablet by mouth every four hours as needed hydrocodone-aceta minophen (LORTAB) 7.5-500 MG per tablet Take 1 tablet by mouth. 1 tab Q 4 hrs PRN Active [id number] 200 actuat albuterol 0.09 mg/actuat metered dose inhaler (14 sources) beta2-Adrenergic Agonist Start: 07-07-2024 Albuterol Sulfate (Ventolin Hfa) 90 mcg/actuation HFA aerosol inhaler Active 1 PUFF INHALATION Q20M July 07, 2024 12:00am FreeTextSi puffs as needed Inhalation prn; Note: Source Status: Taking; Provider: Neha Collazo ( ) Start: 03-03-2023 take 2 puff(s) by inhalation every four hours as needed for wheezing albuterol sulfate HFA (PROVENTIL;VENTOLIN;PROAIR) 108 (90 Base) MCG/ACT inhaler INHALE 2 PUFFS EVERY 4 HOURS NEEDED FOR WHEEZING OR SHORTNESS OF BREATH 03/03/2023 Active Start: 03-03-2023 End: 01-15-2024 take 2 puff(s) by inhalation every four hours as needed for wheezing albuterol (PROVENTIL HFA;VENTOLIN HFA) 9 0 mcg/actuation inhaler Indications: Chronic bronchitis with emphysema ([facility]) Inhale 2 puffs every 4 (four) hours as needed for wheezing or shortness of breath. 18 g 6 01/15/2024 Active Start: 03-03-2023 take 2 puff(s) by mo uth every six hours as needed albuterol HFA 90 mcg/act inhaler TAKE TW O PUFFS BY MOUTH EVERY 6 HOURS NEEDED 0 03/03/2023 Active take 2 puff(s) by inhalation four times daily as needed ALBUTEROL IN Inhale into the lungs. 2 puffs 4 times a day PRN 0 Active [id number] Igq-Fqcs-Edh-Asb-C (1 source) Osmotic Laxative, Vitamin C Start: 06-04-2024 take 1 dose by mouth once daily [id number] Ehx-Etot-Luy-Asb-C (Plenvu) 140-9-5.2 gram powder in packet, sequential Active 140 ML PO .COMPLEX 1 1 June 04, 2024 12:00am First dose at 4pm the day before colonoscopy, Second dose at 11pm the night before the colonoscopy atomoxetine 25 mg oral capsule (3 sources) Norepinephrine Reuptake Inhibitor Start: 02-06-2012 take 1 capsule by mouth once daily atomoxetine (STRATTERA) 25 MG capsule Take 1 capsule by mouth daily. 30 capsule 11 02/06/2012 Active diclofenac sodium 75 mg delayed release oral tablet (11 sources) Nonsteroidal Anti-inflammatory Drug Start: 07-07-2024 take 75 mg by mouth twice daily Diclofenac Sodium Active 75 MG PO 2 times daily July 07, 2024 12:00am Start: 12-11-2023 End: 01-15-2024 take 1 tablet by mouth [...] pain.. 180 tablet 1 01/15/2024 Active Start: 08-20-2023 take 1 tablet by tapan [...] 1 TABLET BEFORE BEDTIME 0 11/17/2022 Active [id number] 0.3 ml EPINEPHrine 1 mg/ml auto-injector (11 sources) alpha-Adrenergic Agonist, beta-Adrenergic Agonist, Catecholamine Start: [...] TOTAL) BY MOUTH NIGHTLY. 0 09/04/2022 Active Fluticasone Propion-Salmeterol (6 sources) Corticosteroid, beta2-Adrenergic Agonist Start: 07-07-2024 take 1 puff(s) by inhalation twice daily Fluticasone Propion-Salmeterol (Advair Diskus) 500-50 mcg/dose blister with device Active 1 INH INHALATION Twice daily July 07, 2024 12:00am FreeTextSi puff Inhalation Twice a day; Note: Source Status: Taking; Provider: Neha Collazo ( ) fluticasone-salm eterol (ADVAIR) 250-50 MCG/DOSE AEPB Inhale 1 puff into the lungs every 12 hours. 2 puffs 0 Active 30 actuat fluticasone furoate 0.1 mg/actuat / umeclidinium 0.0625 mg/actuat / vilanterol 0.025 mg/actuat dry powder inhaler (11 sources) Anticholinergic, Corticosteroid, beta2-Adrenergic Agonist Start: 08-20-2023 End: 01-15-2024 take 1 puff(s) by mouth once daily TRELEGY ELLIPTA 100-62.5-25 mcg blister with device Indications: Chronic bronchitis with emphysema (CMS-HCC) INHALE 1 PUFF BY MOUTH EVERYDAY *RINSE MOUTH AFTER USE* Strength: 100-62.5-25 mcg 28 each 6 01/15/2024 Active gabapentin 100 mg oral capsule (19 sources) Anti-epileptic Agent Start: 07-07-2024 take 100 mg by mouth twice daily Gabapentin Active 100 MG PO 2 times daily July 07, 2024 12:00am Start: 12-11-2023 End: 01-15-2024 take 1 capsule by mouth once daily in the morning gabapentin (NEURONTIN) 100 mg capsule Indications: Fibromyalgia TAKE 1 CAPSULE BY MOUTH EVERY MORNING AND AFTERNOON Strength: 100 mg 180 capsule 1 01/15/2024 Active Start: 08-20-2023 take 1 capsule by [facility] once daily in the morning gabapentin (NEURONTIN) 100 mg capsule Indications: Fibromyalgia TAKE 1 CAPSULE BY MOUTH EVERY MORNING AND AFTERNOON Strength: 100 mg 180 capsule 0 08/20/2023 Active Start: 10-28-2022 End: 01-15-2024 take 1 capsule by mouth once daily gabapentin (NEURONTIN) 300 mg capsule Indications: Fibromyalgia Take 1 capsule (300 mg total) by mouth nightly. 90 capsule 1 01/15/2024 Active levothyroxine sodium 0.025 mg oral tablet (6 sources) l-Thyroxine Start: 07-07-2024 take 25 ug by mouth once daily Levothyroxine Active 25 MCG PO Daily July 07, 2024 12:00am Start: 12-15-2023 End: 01-15-2024 take 1 tablet by mouth in the morning levothyroxine (SYNTHROID, LEVOTHROID) 25 MCG tablet Indications: Acquired hypothyroidism Take 1 tablet (25 mcg total) by mouth in the morning. 90 tablet 1 01/15/2024 Active Start: 10-02-2023 take 1 tablet by tapan [...] Active losartan potassium 25 mg oral tablet (6 sources) Angiotensin 2 Receptor Julio C Start: 07-07-2024 take 25 mg by mouth once daily Losartan Active 25 MG PO Daily July 07, 2024 12:00am Start: 07-03-2023 End: 07-02-2024 losartan (COZAAR) 25 mg tabl et Take 1 tablet (25 mg total) by mouth. 0 07/03/2023 07/02/2024 Active methocarbamol 500 mg oral tablet (2 sources) Muscle Relaxant take 1 tablet by mouth three times daily as needed methocarbamol (Robaxin) 500 MG tablet Take 1 tablet by mouth 3 (three) times a day as needed 0 Active metoprolol tartrate 25 mg oral tablet (14 sources) beta-Adrenergic Julio C Start: take 1 tablet by mouth twice daily at mealtime Metoprolol Tartrate Active 25 MG PO Twice daily July 07, 2024 12:00am FreeTextSi tablet with food Orally Twice a day; Note: Source Status: Taking; Provider: Neha Collazo ( ) Start: 10-31-2022 End: 01-15-2024 metoprolol tartrate (LOPRESS OR) 25 mg tablet Indications: Benign essential HTN TAKE 1 TABLET IN THE MORNING AND 1 TABLET BEFORE BEDTIME Strength: 25 mg 180 tablet 1 01/15/2024 Active nitroglycerin 0.4 mg sublingual tablet (11 sources) Nitrate Vasodilator nitroGLYCERI N (NITROSTAT) 0.4 MG SL tablet nitroglycerin 0.4 mg sublingual tablet DISSOLVE 1 TABLET UNDER TONGUE NEEEDED Active propylthiouracil 50 mg oral tablet (9 sources) Thyroid Hormone Synthesis Inhibitor Start: 2022 propylthiouracil (PTU) 50 MG tablet propylthiouracil 50 mg tablet TAKE 1 TABLET BY MOUTH IN THE MORNING, 1 TABLET AT NOON, 1 TABLET BEFORE BEDTIME 10/31/2022 Active spironolactone 25 mg oral tablet (6 sources) Aldosterone Antagonist Start: 2022 End: 2023 take 1 tablet by mouth once daily spironolactone (ALDACTONE) 25 MG tablet Take 1 tablet by mouth daily 30 tablet 11 05/23/2023 Active tiotropium (5 sources) Anticholinergic Tiotropium Bromi [...] 5 DAYS. 0 01/14/2023 Active traZODone hydrochloride 50 mg oral tablet (14 sources) Serotonin Reuptake Inhibitor Start: 2023 take 1 tablet by mouth once daily at bedtime Trazodone Active 50 MG PO Daily at bedtime July 07, 2024 12:00am FreeTextSi tablet at bedtime as needed Orally Once a day; Note: Source Status: Taking; Provider: Neha Collazo ( ) Start: 10-31-2022 End: 01-15-2024 take 1 tablet by mouth once daily traZODone (DESYREL) 150 mg tablet Indications: Primary insomnia Take 1 tablet (150 mg total) by mouth nightly. 90 tablet 1 01/15/2024 Active UNABLE TO FIND (5 sources) UNABLE TO FIND E pi pen PRN 0 Active Completed/Discontinued Medications Medication Drug Class(es) Dates Sig (Normalized) Sig (Original) hydroCHLOROthiazide 12.5 mg / lisinopril 10 mg oral tablet (1 source) Thiazide Diuretic, Angiotensin Converting Enzyme Inhibitor Start: 07-07-2024 End: 07-07-2024 take 1 tablet by mouth once daily Lisinopril-Hydroc hlorothiazide Discontinued 1 TAB PO Daily July 07, 2024 12:00am July 07, 2024 8:17am FreeTextSi tablet Orally Once a day; Note: Source Status: Not-Taking\PRN; Provider: Neha Collazo ( ) iopamidol (ISOVUE-370) 76 % injection 120 mL (1 source) Start: 12-26-2022 End: 12-26-2022 iopamidol (ISOVUE-370) 76 % injection 120 mL Problems Active Problems Problem Classification Problem Date Documented Date Episodic/Chronic Anxiety disorders (3 sources) Mixed anxiety and depressive disorder; Translations: [Anxiety disorder, unspecified] Onset: 04-12-2024 01-13-2024 Chronic Calculus of urinary tract (14 sources) Kidney stone; Translations: [Calculus of kidney] [...] usually diagnosed in infancy, childhood, or adolescence (9 sources) Attention deficit hyperactivity disorder, predominantly inattentive [...] 04-01-2022 Chronic Genitourinary symptoms and ill-defined conditions (7 sources) Rafael hematuria; Translations: [Gross hematuria] Onset: 06-08-2024 Episodic Headache; including migraine (1 source) Headache; including migraine; Translations: [HEADACHE UNSPECIFIED] Onset: 10-25-2022 Heart valve disorders (7 sources) Nonrheumatic mitral (valve) insufficiency; Translations: [Mitral [...] 11-11-2022 Chronic Other aftercare (1 source) 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; Translations: [OTH CHILD THERAPIST CURRENT DRUG THERAPY] Onset: 12-05-2022 Episodic Other [...] [DORSALGIA UNSPECIFIED] Onset: 12-05-2022 Episodic Substance-related disorders (11 sources) Nicotine dependence, cigarettes, uncomplicated; Translations: [Nicotine [...] NEOPLASM OVARY] Onset: 06-21-2022 Episodic Cardiac dysrhythmias (3 sources) Intermittent palpitations; Translations: [Palpitations] Onset: 05-23-2023 08-20-2023 Episodic Gastrointestinal hemorrhage (4 sources) Melena; Translations: [MELENA] Onset: 06-19-2022 Episodic Immunizations and screening for infectious disease (2 sources) Encounter for screening for other viral diseases; Translations: [Encounter for screening for other viral diseases] Onset: 12-11-2023 Episodic Nonspecific chest pain (3 sources) Atypical chest pain; Translations: [Other chest [...] UNS] Onset: 10-25-2022 Episodic Residual codes; unclassified (9 sources) Insomnia; Translations: [Insomnia, unspecified] Onset: 02-06-2012 02-06-2012 Episodic Residual codes; unclassified (6 sources) Tobacco user; Translations: [Tobacco use] Onset: [...] Test Name Value Interpretation Reference Range Facility Amphetamine Screen Ql (U)Ord ered By: Wanda Hagan on 07-21-2024 Amphetamines Ql (U) Negative Negative [facility] Barbiturates [Presence] in U rine by Screen methodOrdered By: Wanda Hagan on 07-21-2024 Barbiturates Screen Ql (U) Negative Negative [facility] Benzodiazepines Screen Ql (U )Ordered By: Imflo Asaad on 07-21-2024 Benzodiazepines Ql (U) Negative Negative [facility] Benzoylecgonine [Presence] i n Urine by Screen methodOrdered By: Imflo Asaad on 07-21-2024 Benzoylecgonine Screen Ql (U) Negative Negative [facility] Cannabinoids [Presence] in U rine by Screen methodOrdered By: Imflo Asaad on 07-21-2024 Cannabinoids Screen Ql (U) Positive High Negative [facility] Comment on above: These are unconfirme d results and should not be used for legal purposes. Drug Cut-Off Concentration: AMPH 1000 ng/mL JAMES 200 ng/mL TERESSA 200 ng/mL COCM 300 ng/mL OP 300 ng/mL PCP 25 ng/mL THC 20 ng/mL Drug Screen,Urineon 07-21-20 24 Amphetamine Screen,Urine Negative Normal Negative [facility] Comment on above: Performed By: #### U RDS #### [address] Barbiturate Screen,Urine Negative Normal Negative [facility] Comment on above: Performed By: #### U RDS #### [address] Benzodiazepines Screen,Urine Negative Normal Negative [facility] Comment on above: Performed By: #### U RDS #### [address] Cannabinoid Screen,Urine Positive High Negative [facility] Comment on above: Result Comment: Thes e are unconfirmed results and should not be used for legal purposes. Drug Cut-Off Concentration: AMPH 1000 ng/mL JAMES 200 ng/mL TERESSA 200 ng/mL COCM 300 ng/mL OP 300 ng/mL PCP 25 ng/mL THC 20 ng/mL PERFORMED BY: [place] [address] PATHOLOGIST REAMER HAND FREDERIC CHRISTINA M.D. Performed By: #### U RDS #### [address] Cocaine Screen,Urine Negative Normal Negative [facility] Comment on above: Performed By: #### U RDS #### [address] Opiate Screen,Urine Negative Normal Negative [facility] Comment on above: Performed By: #### U RDS #### [address] Phencyclidine Screen,Urine Negative Normal Negative [facility] Comment on above: Performed By: #### U RDS #### [address] Opiates [Presence] in Urine by Screen methodOrdered By: Wanda Hagan on 07-21-2024 Opiates Screen Ql (U) Negative Negative [facility] Phencyclidine Screen Ql (U)O rdered By: Wanda Luiflo on 07-21-2024 Phencyclidine Ql (U) Negative Negative [facility] BUN & Creatinineon 4 Creatinine [Mass/Vol] 0.8 mg/dL 0.50 - 0.90 mg/dL [facility] Est, Glom Filt Rate 84 - PINF [facility] Comment on above: These results are not [...] following therapy that affects renal tubular secretion. Interpretation and review of laboratory results Abnormal [facility] Urea nitrogen [Mass/Vol] 24 mg/dL High 8 - 23 mg/dL [facility] BUN + Creatinineon 4 Creatinine [Mass/Vol] 0.8 mg/dL Normal 0.50-0.90 [facility] Comment on above: Performed By: #### B UNCRT #### [facility] [address] [place] [address] [place] Supervisor: Xavier Cuevas MD GFR/1.73 sq M.predicted among non-blacks MDRD (S/P/Bld) [Vol rate/Area] 84 mL/min/{1.73_m2} Normal >60 [facility] Comment on above: Result Comment: These [...] secretion. Performed By: #### B UNCRT #### [facility] [address] [place] [address] [place] Supervisor: Xavier Cuevas MD Urea nitrogen [Mass/Vol] 24 mg/dL High 8-23 [facility] Comment on above: Performed By: #### B UNCRT #### [facility] [address] [place] [address] [place] Supervisor: Xavier Cuevas MD CT UROGRAMon 07-09-2024 CT UROGRAM EXAMINATION: CT UROGRAM 07/09/2024 9:15 am TECHNIQUE: CT of the abdomen and pelvis was performed before and after the administration of intravenous contrast as per CT urogram protocol. Multiplanar reformatted images as well as MIP urogram images are provided for review. Dose modulation, iterative reconstruction, and/or weight based adjustment of the mA/kV was utilized to reduce the radiation dose to as low as reasonably achievable. COMPARISON: 12/26/2022 HISTORY: ORDERING SYSTEM PROVIDED HISTORY: Microscopic hematuria FINDINGS: Lower Chest: No acute findings. Kidneys and Urinary Tract: Bilateral punctate nonobstructing renal calculi measuring up to 4 mm in the lower pole of the left kidney. No solid or suspicious renal mass identified. No inflammatory change identified. Appropriate excretion of contrast is demonstrated bilaterally. No filling defect identified. Organs: The liver, gallbladder, pancreas, spleen and adrenals reveal no significant findings. GI/Bowel: There is no bowel dilatation or wall thickening identified. Pelvis: No acute findings. No discrete bladder wall abnormality identified. Peritoneum/Retroperi toneum: No free air or free fluid. The aorta is normal in caliber. The visceral branches are patent. No lymphadenopathy. Bones/Soft Tissues: No acute findings. Status post discectomy and transpedicular fusion at L4-5. IMPRESSION: Bilateral nonobstructing renal calculi measuring up to 4 mm in the lower pole of the left kidney. Interpreted by: Jay Macias MD Signed by: Jay Macias MD 07/09/24 Final result Normal [facility] 36on 06-14-2024 36 Pt informed, she told me she will be looking for new heart doctor as she is not happy with us. Normal [facility] Cult,Urineon 06-09-2024 Cult,Urine Specimen Description .CLEAN CATCH URINE Special Requests Site: Urine Culture NO SIGNIFICANT GROWTH Report Status FINAL 06/09/2024 Normal [facility] Comment on above: Performed By: #### U RC #### [facility] [address] [place], [place] [id number] [place] Supervisor: Richard Farias MD [facility] [address] [place], [place] [id number] [place] Supervisor: Xavier Cuevas MD Urinalysis w/ Microon 2023 Bacteria TRACE Abnormal NONE [facility] Comment on above: Performed By: #### U AMIC #### [facility] [address] [place], [place] [id number] [place] Supervisor: Xavier Cuevas MD Bilirubin, SemiQt,Ur MODERATE Abnormal NEG [facility] Comment on above: Performed By: #### U AMIC #### [facility] [address] [place], [place] [id number] [place] Supervisor: Xavier Cuevas MD Blood, Urine Negative Normal NEG [facility] Comment on above: Performed By: #### U AMIC #### [facility] [address] [place], [place] [id number] [place] Supervisor: Xavier Cuevas MD Casts 2 TO 5 Normal [facility] Comment on above: Result Comment: HYAL INE Performed By: #### U AMIC #### [facility] [address] [place], [place] [id number] [place] Supervisor: Xavier Cuevas MD Clarity (U) Clear Normal CLEAR [facility] Comment on above: Performed By: #### U AMIC #### [facility] [address] [place], [place] [id number] [place] Supervisor: Xavier Cuevas MD Color (U) [place] Abnormal YEL [facility] Comment on above: Performed By: #### U AMIC #### [facility] [address] [place], [place] [id number] [place] Supervisor: Xavier Cuevas MD Crystals LM Nom (Urine sed) 10 TO 20 Abnormal NONE [facility] Comment on above: Result Comment: CALC IUM OXALATE Performed By: #### U AMIC #### [facility] [address] [place] [address] Dr[place], [place] [id number] [place] Supervisor: Xavier Cuevas MD Epithelial cells LM Ql (Urine sed) 2 TO 5 Normal 0-25 [facility] Comment on above: Performed By: #### U AMIC #### [facility] [address] [place], [place] [id number] [place] Supervisor: Xavier Cuevas MD Epithelial, Renal 0 TO 2 Normal 0 [facility] Comment on above: Performed By: #### U AMIC #### [facility] [address] [place] [address] Dr[place], [place] [id number] [place] Supervisor: Xavier Cuevas MD Glucose Ql (U) Negative Normal NEG [facility] Comment on above: Performed By: #### U AMIC #### [facility] [address] [place] [address] Dr[place], [place] [id number] [place] Supervisor: Xavier Cuevas MD Ketones Ql (U) 1+ mg/dL Abnormal NEG [facility] Comment on above: Performed By: #### U AMIC #### [facility] [address] [place] [address] Dr[place], [place] [id number] [place] Supervisor: Xavier Cuevas MD Leukocyte esterase Test strip Ql (U) TRACE Abnormal NEG [facility] Comment on above: Performed By: #### U AMIC #### [facility] [address] [place] [address] Dr[place], [place] [id number] [place] Supervisor: Xavier Cuevas MD Nitrite,Ur Positive Abnormal NEG [facility] Comment on above: Performed By: #### U AMIC #### [facility] [address] [place] [address] Dr[place], [place] [id number] [place] Supervisor: Xavier Cuevas MD PH,Ur 6.0 Normal 5.0-9.0 [facility] Comment on above: Performed By: #### U AMIC #### [facility] [address] [place] [address] Dr[place], [place] [id number] [employer] Supervisor: Xavier Cuevas MD Protein Ql (U) 2+ mg/dL Abnormal NEG [facility] Comment on above: Performed By: #### U AMIC #### [facility] [address] [place] [address] [place] [address] [place] Supervisor: Xavier Cuevas MD Spec. [place],Ur >1.030 High 1.010-1.020 [facility] Comment on above: Performed By: #### U AMIC #### [facility] [address] [place] [address] Dr[place], [place] [id number] [place] Supervisor: Xavier Cuevas MD Urine RBC's 5 TO 10 Normal 0-2 [facility] Comment on above: Performed By: #### U AMIC #### [facility] [address] [place] [address] Dr[place], [place] [id number] [place] Supervisor: Xavier Cuevas MD Urine WBC's 5 TO 10 Normal 0-5 [facility] Comment on above: Performed By: #### U AMIC #### [address] [place], [place] [id number] [place] Supervisor: Xavier Cuevas MD Urobilinogen,Ur ELEVATED Normal 0.0-1.0 [facility] Comment on above: Performed By: #### U AMIC #### [facility] [address] [place] [address] Dr[address] [place], [place] [id number] [place] Supervisor: Xavier Cuevas MD XR ABDOMEN (KUB) (SINGLE AP VIEW)on 06-05-2024 [...] Acosta DO Signed by: Олег Acosta DO 06/05/24 Final result Normal [facility] HCV Ab IA Qlon 12-11-2023 ANTI HCV W/PCR REFLX Reactive Abnormal NRCT [facility] Comment on above: Result Comment: Supplemental testing for HCV RNA by PCR has been ordered per CDC recommendations. Sckcei-og-iyngrz ratio is >=1.00. Performed By: #### T HYR, 72702-5 #### [facility] ([id number]) [address] [place] [address], [address] [place] [address] HCV RNA PAULY+probe Qnon 12-11 HCV RNA QUANT PCR [id number] IU/mL Abnormal Undetected Pro [facility] Comment on above: Result Comment: NOTE Result in log IU/mL is 7.28. ADDITIONAL INFORMATION The quantification range of this assay is 15 to 100,000,000 IU/mL (1.18 log to 8.00 log IU/mL). Testing was performed using the diomedes HCV test ([employer] Test Performed by: [place] [address] [place] Supervisor: Raj Bhatti M.D. Ph.D.; CLIA# [id number] Performed By: #### T HYR, 73677-4 #### [facility] ([id number]) [address] [place] [address], [address] [place] [address] THYROID PROFILEon 12-11-2023 Free T4 [Mass/Vol] 1.29 ng/dL Normal 0.61-1.60 [facility] Comment on above: Performed By: #### T HYR, 97721-1 #### [facility] ([id number]) [address] [place] [address], [address] [place] [address] TSH 0.45 uIU/mL Low 0.49-4.67 [facility] Comment on above: Performed By: #### T R, 87632-5 #### [facility] ([id number]) [address], [address] [place] [address] Office Visiton 11-17-2023 Follow-up visit [id number] Robyn Thorpe 1955 F Date Provider Department Center 11/17/2023 PRANAV CAVAZOS GEE Alejandro Family History Problem Relation Age of Onset Diabetes Mother Coronary artery disease Mother Hypertension Mother Coronary artery disease Father Hypertension Father Other Father Coronary artery disease Brother Family Status - Relation Status Age at Mother Father Brother Level of Service:78761 [place] OFFICE/OUTPATIENT ESTABLISHED LOW MDM 20 MIN Normal [facility] Orders Onlyon 11-17-2023 Orders Only [id number] Robyn Thorpe 1955 F Date Provider Department Center 11/17/2023 PAT BAL GEE Alejandro Family History Problem Relation Age of Onset Diabetes Mother Coronary artery disease Mother Hypertension Mother Coronary artery disease Father Hypertension Father Other Father Coronary artery disease Brother Family Status - Relation Status Age at Mother Father Brother Normal [facility] 36on 07-03-2023 37 Patient stopped by the office today c/o cough with lisinopril. Can we switch her to losartan? Normal [facility] Orders Onlyon 06-25-2023 Orders Only [id number] Robyn Thorpe 1955 Date Provider Department Center 06/25/2023 VERONICA BELLO Family History Problem Relation Age of Onset Diabetes Mother Coronary artery disease Mother Hypertension Mother Coronary artery disease Father Hypertension Father Other Father Coronary artery disease Brother Family Status - Relation Status Age at Mother Father Brother Normal [facility] Basic Metabolic Panelon 12-18 Anion gap [Moles/Vol] 8 mmol/L Low 9 - 17 mmol/L [facility] Calcium [Mass/Vol] 9.4 mg/dL 8.6 - 10. 4 mg/dL [facility] [employer] Chloride [Moles/Vol] 108 mmol/L High 98 - 107 mmol/L [facility] CO2 [Moles/Vol] 25 mmol/L 20 - 31 mmol/L [facility] Creatinine [Mass/Vol] 0.68 mg/dL 0.50 - 0.90 mg/dL [facility] GFR/1.73 sq M.predicted MDRD (S/P/Bld) [Vol rate/Area] - PINF [facility] Comment on above: These results are not [...] 109 mg/dL High 70 - 99 mg/dL [facility] Interpretation and review of laboratory results Abnormal [facility] Potassium [Moles/Vol] 3.6 mmol/L Low 3.7 - 5.3 mmol/L [facility] Sodium [Moles/Vol] 141 mmol/L 135 - 144 mmol/L [facility] Urea nitrogen [Mass/Vol] 20 mg/dL 8 - 23 mg/dL [facility] Urea nitrogen/Creatinine (Bld) [Mass ratio] 29 High 9 - 20 [facility] CBC with Auto Differentialon 01-03-2023 Absolute Eos # 0.20 [facility] Absolute Immature Granulocyte 0.03 [facility] Absolute Lymph # 1.05 Low [facility] Absolute Morrill # 0.78 [facility] Basophils (Bld) [#/Vol] 0.04 10*3/uL [facility] Basophils/100 WBC (Bld) 1 % 0 - 2 % [facility] Eosinophils/100 WBC (Bld) 3 % 1 - 4 % [facility] Hematocrit (Bld) [Volume fraction] 43.3 % 36.3 - 47.1 % [facility] Hemoglobin (Bld) [Mass/Vol] 14.3 g/dL 11.9 - 15.1 g/dL [facility] Immature granulocytes/100 WBC (Bld) 1 % High 0 [facility] Interpretation and review of laboratory results Abnormal [facility] Lymphocytes/100 WBC (Bld) 16 % Low 24 - 43 % [facility] MCH (RBC) [Entitic mass] 28.9 pg 25.2 - 33.5 pg [facility] MCHC (RBC) [Mass/Vol] 33.0 g/dL 28.4 - 34.8 g/dL [facility] MCV (RBC) [Entitic vol] 87.5 fL 82.6 - 102.9 fL [facility] Monocytes/100 WBC (Bld) 12 % 3 - 12 % [facility] NRBC Automated 0.0 0.0 per 100 WBC [facility] Platelet distribution width (Bld) [Ratio] 13.2 % 11.8 - 14.4 % [facility] Platelet mean volume (Bld) [Entitic vol] 10.9 fL 8.1 - 13.5 fL [facility] Platelets (Bld) [#/Vol] 227 10*3/uL [facility] RBC (Bld) [#/Vol] 4.95 10*6/uL 3.95 - 5.1 1 m/uL [facility] Segmented neutrophils/100 WBC (Bld) 67 % High 36 - 65 % [facility] Segs Absolute 4.37 [facility] WBC (Bld) [#/Vol] 6.5 10*3/uL [facility] EKG 12 LeadOrdered By: Enrique Quezada on 01-03-2023 Atrial Rate 64 BPM [facility] Work Phone: P [place] 75 degrees [facility] Work Phone: P-R Interval 146 ms [facility] Work Phone: Q-T Interval 480 ms [facility] Work Phone: QRS Duration 130 ms [facility] Work Phone: QTc Calculation (Bazett) 495 ms [facility] Work Phone: R [place] 3 degrees [employer] Work Phone: T [place] 31 degrees [employer] Work Phone: Ventricular Rate 64 BPM [employer] Work Phone: [place] [employer] Work Phone: EKG 12 Leadon 01-03-2023 Normal sinus rhythm Right bundle branch block Abnormal ECG No previous ECGs available Confirmed by YANELIS QUEZADA ([id number]) on 01/03/2023 11:52:02 PM [facility] Yanelis Quezada MD - 01/03/2023 Normal sinus rhythm Right bundle branch block Abnormal ECG No previous ECGs available Confirmed by YANELIS QUEZADA ([id number]) on 01/03/2023 11:52:02 PM [facility] Work Phone: BUN & Creatinineon 3 Creatinine [Mass/Vol] 0.78 mg/dL 0.50 - 0.90 mg/dL [facility] GFR/1.73 sq M.predicted MDRD (S/P/Bld) [Vol rate/Area] - PINF [facility] Comment on above: These results are not [...] [Mass/Vol] 22 mg/dL 8 - 23 mg/dL [facility] [employer] CT UROGRAMon 12-26-2022 1. Bilateral nonobstructing nephroliths larger on the right side of 6.5 mm. No ureteric obstruction. 2. Mild hepatic steatosis. Granulomas in liver and spleen. 3. Atherosclerotic disease. 4. Postsurgical changes lower lumbar spine. Other findings as above. [facility] RIS CONSOLIDATED EXAMINATION: CT UROGRAM 12/26/2022 1:23 [...] acute osseous or subcutaneous soft tissue abnormality. [facility] CONSOLIDATED Katelyn Aceves MD - [...] lower lumbar spine. Other findings as above. [employer] Work Phone: Radiology Study observation (narrative) [employer] Phone: CT UROGRAMOrdered By: Katelyn wilkes on 12-26-2022 [employer] Work Phone: Urinalysis with Microscopico n 12-12-2022 Bacteria, UA 2+ Abnormal None [facility] Bilirubin Urine Negative NEGATIVE [facility] [employer] Color, UA Yellow Yellow [facility] Epithelial Cells UA 2 TO [address] [facility] [facility] [employer] Glucose Auto test strip (U) [Mass/Vol] Negative NEGATIVE [facility] Interpretation and review of laboratory results Abnormal [facility] Ketones (U) [Mass/Vol] TRACE Abnormal NEGATIVE [facility] Leukocyte esterase Auto test strip Ql (U) Negative NEGATIVE [facility] Mucus, UA 1+ Abnormal None [facility] Nitrite Auto test strip Ql (U) Negative NEGATIVE [facility] Protein (U) [Mass/Vol] 6.0 mg/dL 5.0 - 9.0 [facility] Protein (U) [Mass/Vol] 1+ Abnormal NEGATIVE [facility] RBC clumps Auto (Urine sed) [#/Area] 5 TO 10 [facility] Specific [place], UA 1.025 High 1.010 - 1.020 [facility] Turbidity UA Clear Clear [facility] Urine Hgb TRACE Abnormal NEGATIVE [facility] Urobilinogen, Urine Normal Normal [facility] S [facility] WBC, UA 0 TO 2 [facility] XR RIBS LT PA Sophia 3 XR RIBS LT PA CH EXAM: XR RIBS LT PA CH HISTORY: Rib pain COMPARISON: 05/28/2022 TECHNIQUE: Four views of the left ribs. FINDINGS: No rib fracture indentified. The lungs are clear. IMPRESSION: 1. No acute rib fracture identified. Electronically authenticated by: JANEEN POOLE Date: 2022-12-03 10:28 Normal [facility] MRI BRAIN WO W CONon 023 [...] by: YANELIS ENGEL Date: 2022-10-22 13:55 Normal [facility] CREATININEon 10-21-2022 Creatinine [Mass/Vol] 0.94 mg/dL Normal 0.55-1.02 [facility] Comment on above: Performed By: #### C HUGH ####[facility] [address] [place], [place] [address]Bc. Tapan Gordon EGFR-AF GREENLANDIC >60 Normal >=60 [facility] Comment on above: Performed By: #### C HUGH ####[facility] [address] [place], [place] [address]Eo. Tapan Gordon EGFR-NON AF GREENLANDIC =60 Normal >=60 [facility] Comment on above: Performed By: #### C HUGH ####[facility] [address] [place], [place] [address]Mt. Tapan Gordon MG MAMM SCREEN 3D NICKOLAS CADon 08-13-2022 MG MAMM SCREEN 3D NICKOLAS CAD Patient: ROBYN THORPE Exam Date: 08/13/2022 : 1955 Gender:F Ordering : JAIRO DALEY Admission #: [id number] Family : Order #: [id number] CLICK HERE TO VIEW EXAM RADIOLOGY REPORT [...] kidney cancer at age 65. LOCATION: [facility] BREAST COMPOSITION: Scattered areas fibroglandular density. [...] MD on 08/14/2022 at 07:58 Normal [facility] XR DEXA BONE DENSITYon 08-13 XR [...] ENGEL Date: 2022-08-13 16:09 Normal [facility] CT ABD/PELVIS WO CONon 08-07 CT [...] ENGEL Date: 2022-08-07 18:50 Normal [facility] ECHOCARDIO M/2D COMPLETEon 0 06-26-2022 ECHOCARDIO M/2D COMPLETE Patient: ROBYN THORPE Exam Date: 06/26/2022 : 1955 Gender:F Ordering : DR PRANAV TRINIDAD M.D. Admission #: [id number] Family : JAIRO DALEY Order #: [id number] CLICK HERE TO VIEW EXAM ECHOCARDIOGRAM REPORT [...] M.D. on 06/26/2022 at 18:22 Normal [facility] AMYLASEon 06-19-2022 Amylase [Catalytic activity/Vol] 48 U/L Normal 25-115 [facility] Comment on above: Performed By: #### C MP, YASH, LIPA ####[facility] [address] [place], [place] [address]DrCedric Gordon CBC AUTO DIFFon 06-19-2022 BASO # 0.0 103/ul Normal 0.0-0.1 [facility] Comment on above: Performed By: #### C BC ####[facility] [address] [place], [place] [address]Dr. Tapan Gordon Basophils/100 WBC (Bld) 0.5 % Normal 0.2-2.0 [facility] Comment on above: Performed By: #### C BC ####[facility] [address] [place], [place] [address]DrCedric Gordon EO # 0.2 103/ul Normal 0.0-0.7 [facility] Comment on above: Performed By: #### C BC ####[facility] [address] [place], [place] [address]DrCedric Gordon Eosinophils/100 WBC (Bld) 2.4 % Normal 0.9-7.0 [facility] Comment on above: Performed By: #### C BC ####[facility] [address] [place], [place] [address]DrCedric Gordon Erythrocyte distribution width (RBC) [Ratio] 13.0 % Normal 11.0-15.0 [facility] Comment on above: Performed By: #### C BC ####[facility] [address] [place] [address]DrCedric Gordon Hematocrit (Bld) [Volume fraction] 43.6 % Normal 36.0-48.0 [facility] Comment on above: Performed By: #### C BC ####[facility] [address] [place] [address]DrCedric Gordon Hemoglobin (Bld) [Mass/Vol] 14.6 g/dL Normal 12.0-16.0 [facility] Comment on above: Performed By: #### C BC ####[facility] [address] [place], [place] [address]DrCedric Gordon IG # 0.02 10e3/ul Normal 0.00-0.03 [facility] Comment on above: Performed By: #### C BC ####[facility] [address] [place], [place] [address]DrCedric Gordon IG % 0.3 % Normal 0.0-0.5 [facility] Comment on above: Performed By: #### C BC ####[facility] [address] [place], [place] [address]DrCedric Gordon LYMPH # 1.5 103/ul Normal 1.2-3.8 [facility] Comment on above: Performed By: #### C BC ####[facility] [address] [place], [place] [address]DrCedric Gordon Lymphocytes/100 WBC (Bld) 23.4 % Normal 20.5-60.0 [facility] Comment on above: Performed By: #### C BC ####[facility] [address] [place], [place] [address]DrCedric Gordon MANUAL DIFF REQ NO Normal [facility] Comment on above: Performed By: #### C BC ####[facility] [address] [place] [address]DrCedric Gordon MCH (RBC) [Entitic mass] 29.5 pg Normal 26.7-34.0 [facility] Comment on above: Performed By: #### C BC ####[facility] [address] [place] [address]Dr. Tapan Gordon MCHC (RBC) [Mass/Vol] 33.5 g/dL Normal 29.9-35.2 [facility] Comment on above: Performed By: #### C BC ####[facility] [address] [place] [address]DrCedric Gordon MCV (RBC) [Entitic vol] 88.1 fL Normal 81.0-99.0 [facility] Comment on above: Performed By: #### C BC ####[facility] [address] [place], [place] [address]DrCedric Gordon MONO # 0.6 103/ul Normal 0.3-0.8 [facility] Comment on above: Performed By: #### C BC ####[facility] [address] [place], [place] [address]Dr. Tapan Gordon Monocytes/100 WBC (Bld) 9.8 % Normal 1.7-12.0 [facility] Comment on above: Performed By: #### C BC ####[facility] [address] [place], [place] [address]DrCedric Gordon NEUT # 4.0 103/ul Normal 1.4-6.5 [facility] Comment on above: Performed By: #### C BC ####[facility] [address] [place], [place] [address]Dr. Tapan Gordon Neutrophils/100 WBC (Bld) 63.6 % Normal 43.0-75.0 [facility] Comment on above: Performed By: #### C BC ####[facility] [address] [place], [place] [address]DrCedric Gordon Platelet mean volume (Bld) [Entitic vol] 10.3 fL Normal 9.5-13.5 [facility] Comment on above: Performed By: #### C BC ####[facility] [address] [place], [place] [address]Dr. Tapan Gordon PLT 258 103/ul Normal 150-450 [facility] Comment on above: Performed By: #### C BC ####[facility] [address] [place], [place] [address]Rr. Tapan Gordon RBC 4.95 106/ul Normal 4.20-5.40 [facility] Comment on above: Performed By: #### C BC ####[facility] [address] [place], [place] [address]Uy. Tapan Gordon WBC 6.3 103/ul Normal 4.0-11.0 [facility] Comment on above: Performed By: #### C BC ####[facility] [address] [place], [place] [address]Jo. T[address] ABD/PELVIS WO CONon 06-19 [...] BRAULIO LASSITER Date: 2022-06-19 10:13 Normal [facility] ER URINE PROFILEon 2 Bilirubin Ql (U) Negative Normal NEGATIVE [facility] Comment on above: Performed By: #### U MICRO, ERUR #### [facility] [address] [place] [address] [address] Tapan Gordon Clarity (U) CLEAR Normal CLEAR [facility] Comment on above: Performed By: #### U MICRO, ERUR #### [facility] [address] [place] [address] [address] Tapan Gordon Color (U) LT. YELLOW Normal YELLOW [facility] Comment on above: Performed By: #### U MICRO, ERUR #### [facility] [address] [place] [address] [address] Tapan FORMAN A micrscopic examination will be performed if indicated. Normal [facility] Comment on above: Performed By: #### U MICRO, ERUR #### [facility] [address] [address] [address] Tapan Gordon Glucose Ql (U) Negative Normal NEGATIVE [facility] Comment on above: Performed By: #### U MICRO, ERUR #### [facility] [address] [address] [address] Tapan Gordon Hemoglobin Ql (U) LARGE Abnormal NEGATIVE [facility] Comment on above: Performed By: #### U MICRO, ERUR #### [facility] [address] [place] [address] [address] Tapan Gordon Ketones Ql (U) Negative Normal NEGATIVE [facility] Comment on above: Performed By: #### U MICRO, ERUR #### [facility] [address] [place] [address] [address] Tapan Gordon LEUKOCYTES Negative Normal NEGATIVE [facility] Comment on above: Performed By: #### U MICRO, ERUR #### [facility] [address] [place] [address] [address] Tapan Gordon Nitrite Ql (U) Negative Normal NEGATIVE [facility] Comment on above: Performed By: #### U MICRO, ERUR #### [facility] [address] [place] [address] [address] Tapan Gordon pH (U) 7.0 [pH] Normal 5-9 [facility] Comment on above: Performed By: #### U MICRO, ERUR #### [facility] [address] [place] [address] [address] Tapan Gordon SPEC GRAVITY 1.015 Normal 1.005-<=1.025 [facility] Comment on above: Performed By: #### U MICRO, ERUR #### [facility] [address] [place] [address] [address] Tapan Gordon UA PROTEIN TRACE Normal NEGATIVE/ TRACE [facility] Comment on above: Performed By: #### U MICRO, ERUR #### [facility] [address] [place] [address] [address] Tapan Gordon UR MICRO IND INDICATED Normal [facility] Comment on above: Performed By: #### U MICRO, ERUR #### [facility] [address] [place] [address] [address] Tapan Gordon Urobilinogen Qn (U) 2.0 {Aleida'U}/dL Abnormal 0.2 - 1. 0 [facility] Comment on above: Performed By: #### U MICRO, ERUR #### [facility] [address] [place] [address] [address] Tapan Gordon LIPASEon 06-19-2022 Lipase [Catalytic activity/Vol] 182.0 U/L Normal 73.0-393.0 [facility] Comment on above: Performed By: #### C MP, YASH, LIPA ####[facility] [address] [place] [address]Dr. Tapan Gordon OCC BLD IMMUNO SCREENon 05-22 OCCULT BLOOD Negative Normal NEGATIVE [facility] Comment on above: Performed By: #### O BSCRN ####[facility] [address] [place] [address]Dr. Tapan Gordon PROF 14(COMP METB)on 022 Albumin [Mass/Vol] 3.5 g/dL Normal 3.4-5.0 [facility] Comment on above: Performed By: #### C MP, YASH, LIPA ####[facility] [address] [place] [address]Dr. Tapan Gordon Albumin/Globulin [Mass ratio] 1.0 {ratio} Normal [facility] Comment on above: Performed By: #### C MP, YASH, LIPA ####[facility] [address] [place] [address]Dr. Tapan Gordon ALP [Catalytic activity/Vol] 76 U/L Normal 46-116 [facility] Comment on above: Performed By: #### C MP, YASH, LIPA ####[facility] [address] [place] [address]Dr. Tapan Gordon ALT [Catalytic activity/Vol] 64 U/L Critically high 14-59 [facility] Comment on above: Performed By: #### C MP, YASH, LIPA ####[facility] [address] [place], [place] [address]Dr. Tapan Gordon Anion gap [Moles/Vol] 11.2 mmol/L Normal [facility] Comment on above: Performed By: #### C MP, YASH, LIPA ####[facility] [address] [place], [place] [address]Dr. Tapan Gordon AST [Catalytic activity/Vol] 38 U/L Critically high 15-37 [facility] Comment on above: Performed By: #### C MP, YASH, LIPA ####[facility] [address] [place], [place] [address]Dr. Tapan Gordon Bilirubin [Mass/Vol] 0.7 mg/dL Normal 0.2-1.0 [facility] Comment on above: Performed By: #### C MP, YASH, LIPA ####[facility] [address] [place], [place] [address]Dr. Tapan Gordon Calcium [Mass/Vol] 8.7 mg/dL Normal 8.5-10.1 [facility] Comment on above: Performed By: #### C MP, YASH, LIPA ####[facility] [address] [place], [place] [address]Dr. Tapan Gordon Chloride [Moles/Vol] 104 mmol/L Normal 98-107 [facility] Comment on above: Performed By: #### C YASH COLLINS LIPA ####[facility] [address] [place] [address]Dr. Tapan Gordon CO2 [Moles/Vol] 29.6 mmol/L Normal 21.0-32.0 [facility] Comment on above: Performed By: #### C YASH COLLINS LIPA ####[facility] [address] [place] [address]Dr. Tapan Gordon Creatinine [Mass/Vol] 0.85 mg/dL Normal 0.55-1.02 [facility] Comment on above: Performed By: #### C YASH COLLINS LIPA ####[facility] [address] [place] [address]Dr. Tapan Gordon EGFR-AF GREENLANDIC >60 Normal >=60 [facility] Comment on above: Performed By: #### C YASH COLLINS LIPA ####[facility] [address] [place] [address]Dr. Tapan Gordon EGFR-NON AF GREENLANDIC >60 Normal >=60 [facility] Comment on above: Performed By: #### C YASH COLLINS LIPA ####[facility] [address] [place] [address]Dr. Tapan Gordon Globulin (S) [Mass/Vol] 3.6 g/dL Normal [facility] Comment on above: Performed By: #### C YASH COLLINS LIPA ####[facility] [address] [place] [address]Dr. Tapan Gordon Glucose [Mass/Vol] 125 mg/dL Critically high 74-106 [facility] Comment on above: Performed By: #### C YASH COLLINS LIPA ####[facility] [address] [place] [address]Dr. Tapan Gordon Potassium [Moles/Vol] 3.8 mmol/L Normal 3.5-5.1 [facility] Comment on above: Performed By: #### C YASH COLLINS LIPA ####[facility] [address] [place] [address]Dr. Tapan Gordon Protein [Mass/Vol] 7.1 g/dL Normal 6.4-8.2 [facility] Comment on above: Performed By: #### C MP, YASH, LIPA ####[facility] [address] [place] [address]Dr. Tapan Gordon Sodium [Moles/Vol] 141 mmol/L Normal 136-145 [facility] Comment on above: Performed By: #### C MP, YASH, LIPA ####[facility] [id number] [place] [address]Dr. Tapan Gordon Urea nitrogen [Mass/Vol] 22.0 mg/dL Critically high 7.0-18.0 [facility] Comment on above: Performed By: #### C MP, YASH, LIPA ####[facility] [id number] [address]Dr. Tapan Gordon Urea nitrogen/Creatinine [Mass ratio] 25.9 mg/mg Normal [facility] Comment on above: Performed By: #### C MP, YASH, LIPA ####[facility] [id number] [address]Dr. Tapan Gordon URINE MICROSCOPIC ONLYon BACTERIA TRACE Abnormal NONE SEEN [facility] Comment on above: Performed By: #### U MICRO, ERUR #### [facility] [address] [address] [address] Tapan Gordon Bacteria identified Cx Nom (U) NOT INDICATED Normal [facility] Comment on above: Performed By: #### U MICRO, ERUR #### [facility] [address] [address] [address] Tapan Gordon CAST NONE SEEN Normal NONE SEEN [facility] Comment on above: Performed By: #### U MICRO, ERUR #### [facility] [address] [address] [address] Tapan Gordon Crystals LM Nom (Urine sed) NONE SEEN Normal NONE SEEN [facility] Comment on above: Performed By: #### U MICRO, ERUR #### [facility] [address] [address] [address] Tapan Gordon Epithelial cells LM Ql (Urine sed) FEW Abnormal NONE SEEN /RARE [facility] Comment on above: Performed By: #### U MICRO, ERUR #### [facility] [address] [address] [address] Tapan Gordon MUCOUS NONE SEEN Normal NONE SEEN [facility] Comment on above: Performed By: #### U MICRO, ERUR #### [facility] [address] [address] [address] Tapan Gordon RBC 20-50 Abnormal 0-2 [facility] Comment on above: Performed By: #### U MICRO, ERUR #### [facility] [address] [address] [address] Tapan Gordon WBC NONE SEEN Normal NONE SEEN [facility] Comment on above: Performed By: #### U MICRO, ERUR #### [facility] [address] [place] [address] LUNG CANCER SCREENINGon [...] by: XAVIER GONZALES Date: 2022-05-29 07:22 Normal [facility] Vital Signs Date Time Vital Sign Value Performing Clinician Facility 07-21-2024 09:40-0400 Diastolic blood pressure 78 mm[Hg] NIGHT SHIFT SUPERVISOR-C Jairo Daley Work Phone: [facility] 07-21-2024 09:40-0400 Heart rate 72 /min NIGHT SHIFT SUPERVISOR-C Jairo Daley Work Phone: [facility] 07-21-2024 09:40-0400 Respiratory rate 20 /min NIGHT SHIFT SUPERVISOR-C Jairo Dlaey Work Phone: [facility] 07-21-2024 09:40-0400 SaO2% (BldA) [Mass fraction] 98 % NIGHT SHIFT SUPERVISOR-C Jairo Daley Work Phone: [facility] 07-21-2024 09:40-0400 Systolic blood pressure 138 mm[Hg] NIGHT SHIFT SUPERVISOR-C Jairo Daley Work Phone: [facility] 07-21-2024 06:51-0400 Body height 157.48 cm NIGHT SHIFT SUPERVISOR-C Jairo Daley Work Phone: [facility] 07-21-2024 06:51-0400 Body weight 92.98 kg NIGHT SHIFT SUPERVISOR-C Jairo Daley Work Phone: [facility] 12-04-2023 15:54-0500 Body height 161.3 cm Cristobal White DPM Work Phone: [facility] 12-04-2023 15:54-0500 Body mass index (BMI) [Ratio] 35.22 kg/m2 Cristobal White DPM Work Phone: [facility] 12-04-2023 15:54-0500 Body weight 91.63 kg Cristobal White DPM Work Phone: [facility] 12-04-2023 15:54-0500 Diastolic blood pressure 81 mm[Hg] Cristobal White DPM Work Phone: [facility] 12-04-2023 15:54-0500 Heart rate 88 /min Cristobal White DPM Work Phone: [facility] 12-04-2023 15:54-0500 Systolic blood pressure 131 mm[Hg] Cristobal White DPM Work Phone: [facility] Encounters Encounter Date Encounter Type Care Provider Facility Start: 07-21-2024 Non-patient / Non-visit NIGHT SHIFT SUPERVISOR-Tika Daley Work Phone: [facility] Work Phone: Start: 07-21-2024 End: 07-21-2024 Admission to same day surgery center NIGHT SHIFT SUPERVISOR-Tika Daley Work Phone: [facility] Work Phone: Start: 07-21-2024 End: 07-21-2024 ambulatory Jairo Daley Facility:[facility] Start: 07-09-2024 End: 07-09-2024 Subsequent hospital visit by physician Jairo Daley SPLITTING MACHINE FEEDER - [facility] Work Phone: [facility] Laboratory Comment on above: Microscopic hematuri a Start: 07-09-2024 End: 07-11-2024 ambulatory BO Kulkarniy [facility] Start: 07-08-2024 End: 07-08-2024 ambulatory CRISTOBAL WHITE Not Available Start: 06-08-2024 End: 06-08-2024 ambulatory [facility] BLACK [facility] Start: 06-02-2024 End: 06-04-2024 ambulatory JASON Del Rosario [facility] Start: 04-29-2024 End: 04-29-2024 ambulatory CRISTOBAL WHITE Not Available Start: 04-26-2024 Non-patient / Non-visit LINDA Daley Work Phone: [facility] Physician [facility] Work Phone: Start: 04-12-2024 End: 04-12-2024 ambulatory [facility] Start: 03-11-2024 End: 03-11-2024 ambulatory CRISTOBAL WHITE Not Available Start: 02-19-2024 End: 02-19-2024 ambulatory CRISTOBAL WHITE Not Available Start: 01-15-2024 [facility] Phys[facility] Internal Medicine - Family Medicine Comment on above: Chronic bronchitis w ith emphysema; Arthritis, multiple joint involvement; Anxiety and depression; Fibromyalgia; Acquired hypothyroidism; Benign essential HTN; Primary insomnia; History of kidney stones Start: 01-13-2024 Refill Isidra Vanesa [facility] Physicians Internal Medicine - Family Medicine Comment on above: Chronic bronchitis w ith emphysema; Arthritis, multiple joint involvement; Anxiety and depression; Fibromyalgia; Acquired hypothyroidism; Benign essential HTN; Primary insomnia Start: 12-11-2023 End: 12-12-2023 [facility] Start: 12-11-2023 End: 12-11-2023 ambulatory [facility] Start: 12-04-2023 End: 12-04-2023 Office [...] PODIATRY Start: 11-17-2023 Telephone encounter Hilario Hurst [facility] Physicians Internal Medicine - Family Medicine Start: 11-17-2023 End: 11-17-2023 ambulatory AB [facility] Start: 01-03-2023 End: 01-03-2023 Patient encounter status Jairo Sweetillo SPLITTING MACHINE FEEDER - [employer] Work Phone: [facility] EKG Start: 01-03-2023 End: 01-03-2023 Subsequent hospital visit by physician Jairo Daley SPLITTING MACHINE FEEDER - [employer] Work Phone: [facility] EKG Comment on above: Renal calculus; Pre-op testing Start: 12-26-2022 End: 12-28-2022 Subsequent hospital visit by physician [facility] Scan Room [facility] Laboratory Comment on above: Renal calculus; Gross hematuria Start: 12-12-2022 End: 12-12-2022 Subsequent hospital visit by physician Jairo Daley SPLITTING MACHINE FEEDER - [employer] Work Phone: [facility] Laboratory Comment on above: Renal calculus; Gross hematuria Start: 12-03-2022 End: 12-03-2022 ambulatory JANEEN POOLE Facility:[facility] Start: 10-21-2022 End: 10-22-[address] EULALIO MENESES Facility:[facility] Start: 09-11-2022 End: 09-22-2022 Emergency department patient visit RANDAL ORTIZ Facility:[facility] Start: 08-13-2022 End: 08-14-[address] XAVIER GONZALES Facility:[facility] Start: 08-07-2022 End: 08-08-[address] YANELIS ENGEL Facility: Start: 07-03-2022 End: 07-04-[address] YANELIS ENGEL Facility: Start: 06-26-2022 End: 06-27-[address] PRANAV TRINIDAD Facility:[facility] Start: 06-19-2022 End: 06-19-2022 ambulatory BRAULIO LASSITER Facility:[facility] Start: 05-28-2022 End: 05-29-[address] XAVIER GONZALES Facility:[facility] Start: 04-03-2022 End: 04-04-[address] YANELIS ENGEL Facility:[facility] Start: 03-08-2022 End: 03-08-[address] YANELIS ENGEL Facility: Procedures Date Procedure Procedure Detail Performing Clinician Start: 07-21-2024 Screening colonoscopy N P-C Jairo Daley Work Phone: Start: 07-09-2024 Assay of urea nitrog en quantitative Bo Black SPLITTING MACHINE FEEDER - [employer] Work Phone: Start: 12-11-2023 Adult depression scr eening assessment Isidra Vanesa NATIONAL SERVICE OFFICER Start: 08-20-2023 Adult depression scr eening assessment Adysan Sleek NATIONAL SERVICE OFFICER Start: 01-03-2023 Ecg routine ecg w/le ast 12 lds w/i&r Bo Black SPLITTING MACHINE FEEDER - [employer] Work Phone: Start: 01-03-2023 Basic metabolic pane l calcium total Bo Chao Brennatala SPLITTING MACHINE FEEDER - [employer] Work Phone: Start: 12-26-2022 Ct abdomen & pelvis w/o contrst 1/> body re Jason Au MD Work Phone: Start: 12-26-2022 Assay of urea nitrog en quantitative Jason Au MD Work Phone: Start: 12-12-2022 Urnls dip stick/tabl et reagent auto microscopy Jason Au MD Work Phone: Start: 08-13-2022 Mammography Adysan Sle ek NATIONAL SERVICE OFFICER Plan of Treatment Date Care Activity Detail Author Start: 06-09-2025 End: 06-09-2025 Patient encounter procedure 06/09/2025 9:00 AM EDT Office Visit [facility] UROLOGY Part of [address] [place] [address] Bo Black, SPLITTING MACHINE FEEDER - [employer] [address] [place] [address] [address] [place] [address] 1yr PVR KUB [facility] UR[facility] Part of [facility] Comment on above: 1yr PVR KUB Start: 12-11-2024 Adult BMI Follow Up Plan Adult BMI F ollow Up Plan [facility] Start: 12-11-2024 Adult BMI Screening Adult BMI Screen ing [facility] Start: 12-11-2024 Depression Screening Depression Scre ening [facility] Start: 12-11-2024 Fall Risk Screening Fall Risk Screen ing [facility] Start: 12-11-2024 Tobacco Screening Tobacco Screening [facility] Start: 08-20-2024 Adult BMI Follow Up Plan Adult BMI F ollow Up Plan [facility] Start: 08-20-2024 Adult BMI Screening [facility] Screen ing [facility] Start: 08-20-2024 Depression Screening Depression Scre ening [facility] Start: 08-20-2024 Fall Risk Screening Fall Risk Screen ing [facility] Start: 08-20-2024 Medicare Annual Well ness Visit Medicare Annual Wellness Visit [facility] [employer] [facility] Start: 08-20-2024 Tobacco Screening Tobacco Screening [facility] [employer] [facility] Start: 08-13-2024 Screening for malign ant neoplasm of breast Breast cancer screen [facility] Start: 07-21-2024 [facility] Start: 07-16-2024 End: 07-16-2024 Patient encounter procedure 07/16/2024 8:45 AM EDT Office Visit [facility] UROLOGY Part [address] [place] [id number] Jason Au MD [address] [place] [address], [address] [place] [address] [facility] Comment on above: Follow up CT Start: 06-29-2024 Annual Wellness Visi t (Medicare) Annual Wellness Visit (Medicare) [facility] Start: 06-20-2024 COVID-19 Vaccine ( season) COVID-19 Vaccine ( season) [facility] Start: 05-20-2024 Influenza vaccination Flu vaccine (# 1) [facility] Start: 04-12-2024 End: 04-12-2024 Patient encounter procedure 04/12/2024 9:40 AM EDT Office Visit [facility] Internal Medicine - Family Medicine [address] [place] [id number] Jairo Daley, SPLITTING MACHINE FEEDER-[employer] [address] [place] [id number] [facility] Physicians Internal Medicine - Family [facility] Start: 02-12-2024 End: 02-12-2024 Patient encounter procedure 02/12/2024 4:40 PM EDT Procedure Visit [facility] [address] [place] [address] Cristobal White, KISHAM [address] [address] [facility] Start: 01-07-2024 Tobacco Counseling Tobacco Counselin g [facility] Start: 12-18-2023 End: 12-18-2023 Clinical Support 12/18/2023 8:50 AM EST Clinical Support [facility] [address] [facility] [address] [place] [address] Cristobal White, DPM [address] [address] [facility] Start: 12-11-2023 End: 12-11-2023 Patient encounter procedure 12/11/2023 9:45 AM EST Office Visit [facility] Internal Medicine - Family Medicine [address] [place] [address] Jairo Daley, SPLITTING MACHINE FEEDER-[employer] [address] [place] [address] [facility] Internal Medicine - Family [facility] Start: 12-04-2023 End: 12-04-2023 Patient encounter procedure 12/04/2023 4:00 PM EST Office Visit [facility] [address] [facility] [address] [place] [id number] Cristobal White, KISHAM [address] [address] [facility] Start: 08-13-2023 Screening for malign ant neoplasm of breast Mammogram [facility] Start: 06-20-2023 COVID-19 Vaccine ( season) COVID-19 Vaccine ( season) [facility] [employer] [facility] Start: 01-21-2023 End: 01-21-2023 Admission to same day surgery center 01/21/2023 Surgery IP Unit Jason Au MD [address] [place] [address], [address] [place] [id number] ESWL EXTRACORPOREAL SHOCK WAVE LITHOTRIPSY [facility] Comment on above: ESWL EXTRACORPOREAL SHOCK WAVE LITHOTRIPSY Start: 01-21-2023 End: 01-21-2023 Lithotripsy xtrcorp shock wave ESWL EXTRACORPOREAL SHOCK WAVE LITHOTRIPSY Renal calculus 01/21/2023 7:[address] [facility] Start: 01-21-2023 Subsequent hospital visit by physician 01/21/2023 Hospital Encounter IP Unit Jason Au MD [address] [place] [address], [address] [place] [address] [facility] Start: 12-31-2022 End: 12-31-2022 Patient encounter procedure 12/31/2022 Appointment Radiology [facility] CT Scan Start: 12-12-2022 Annual Wellness Visi t (AWV) Annual Wellness Visit (AWV) [facility] Start: 2016 Respiratory Syncytia l Virus (RSV) or age 60 yrs+ (1 - 1-dose 60+ series) Respiratory Syncytial Virus (RSV) or age 60 yrs+ (1 - 1-dose 60+ series) [facility] Start: 2011 Screening for osteoporosis DEXA (modify frequency per FRAX score) [facility] Start: 2006 Administration of varicella zoster vaccine Zoster (Shingles) Vaccine (1 of 2) [facility] Start: 2006 Screening for malign ant neoplasm of breast Breast cancer screen [facility] Start: 2006 Shingles vaccine (1 of 2) Shingles vaccine (1 of 2) [facility] Start: 2001 Screening for malign ant neoplasm of colon [facility] Start: 1996 Lipid panel Lipids [facility] Start: 1991 Diabetes screen Diabetes screen [facility] Start: 1975 DTaP,Tdap and Td Vaccines (1 - Tdap) DTaP,Tdap and Td Vaccines (1 - Tdap) [facility] Start: 1975 DTaP/Tdap/Td vaccine (1 - Tdap) DTaP/Tdap/Td vaccine (1 - Tdap) [facility] Start: 1974 Hepatitis C screening Hepatitis C sc reen [facility] Start: 1968 Depression Screen Depression Screen [facility] Start: 06-05-1957 COVID-19 Vaccine (#1) COVID-19 Vacci ne (#1) [facility] Start: 1956 Screening for malign ant neoplasm of colon [facility] Start: 1956 Tobacco Counseling Tobacco Counselin g [facility] End: 12-12-2022 Culture, Urine [facility] Work Phone: Comment on above: 1 Occurrences starti ng 12/12/2022 until 12/12/2022 Patient Education Hemorrhoids (D C) Diverticulosis (DC) Colon Polypectomy (DC) Know your [place] Work Phone: US Lower extremity - right US foot right Imaging Routine Other specified disorders of synovium, right ankle and foot Ordered: 12/04/2023 [facility] Work Phone: Comment on above: Ordered: 12/04/2023 Immunizations Immunization Date Immunization Notes Care Provider Cristine hunt 08-20-2023 Influenza Vaccine, Quadrivalent, Adjuvanted Adysan Sleek [facility] [employer] 10-02-2022 Pneumococcal Conjuga te 20-valent Adysan Sleek [facility] 10-02-2022 pneumococcal conjuga te vaccine, 7 valent Adysan Sleek [facility] 07-30-2022 Influenza Vaccine, Quadrivalent, Adjuvanted Adysan Sleek [facility] Payers Date Payer Category Payer Self-pay 2024 Unknown [id number] 2024 Unknown [id number] 2023 Medicaid [id number] 2023 Medicare [id number] 2023 Medicare [id number] 2022 [id number] [id number] 2022-Present [phone] [address] [place] [address] [id number]. [id number] 2022 Medicare [id number]. [id number] 2017 Medicare [id number] [id number]. 7.3.417253.315 2017 Unknown [id number] 1959 Medicaid [id number] 1959 Medicare [id number] 1959 Unknown [id number] 1956 Unknown [id number] .16.840.1.334275.3.579.2. 593 1956 Unknown [id number] .16.840.1.012017.3.579.2. 593 1956 Unknown [id number] .16.840.1.059025.3.579.2. 593 1956 Unknown [id number] .16.840.1.689980.3.579.2. 593 1956 Unknown [id number] 2.16.840.1.775446.3.579.2. 593 1956 Unknown [id number] 2.16.840.1.881048.3.579.2. 593 1956 Unknown [id number] 2.16.840.1.415242.3.579.2. 593 1956 Unknown [id number] 2.16.840.1.456295.3.579.2. 593 1956 Unknown [id number] 2.16.840.1.629018.3.579.2. 593 1956 Unknown [id number] 2.16.840.1.767443.3.579.2. 593 1956 Unknown [id number] 2.16.840.1.396905.3.579.2. 1286 1956 Unknown [id number] 2.16.840.1.360291.3.579.2. 1286 1956 Unknown [id number] 2.16.840.1.469752.3.579.2. 1286 1956 Unknown [id number] 2.16.840.1.555446.3.579.2. 1259 1956 Unknown [id number] 2.16.840.1.646752.3.579.2. 1259 1956 Unknown [id number] 2.16.840.1.800136.3.579.2. 1259 1956 Unknown [id number] 2.16.840.1.851582.3.579.2. 1259 1956 Unknown [id number] 2.16.840.1.421560.3.579.2. 1259 1956 Unknown [id number] 2.16.840.1.631714.3.579.2. 173 1956 Unknown [id number] 2.16.840.1.059814.3.579.2. 173 1956 Unknown [id number] 2.16.840.1.763280.3.579.2. 173 1956 Unknown [id number] 2.16.840.1.326145.3.579.2. 173 1956 Unknown [id number] 2.16.840.1.217206.3.579.2. 173 Private Health Insurance [facility] [id number] Unknown [id number] 2.16.840.1.302677.3.579.2. 531 Unknown HCAP/HFA/FAP Active [id number] Social History Date Type Detail Facility Start: 12-12-2022 End: 06-08-2024 Tobacco smoking status NHIS Smokes tobacco daily [employer] Phone: History of tobacco use Cigarette Smoker B ON [employer] Phone: Start: 12-12-2022 End: 06-08-2024 Cigarettes smoked current (pack per day) - Reported 0.5 [employer] Phone: Start: 12-12-2022 End: 06-08-2024 Tobacco use and exposure Smokeless tobacco non-user [employer] Phone: Start: 12-12-2022 End: 06-08-2024 Alcohol intake Current drinker of alcohol (finding) [employer] Phone: Start: 12-12-2022 Tobacco Comment Smokes 6-8 cigs/day [employer] Phone: Start: 12-12-2022 Alcohol Comment Beer 2-3 every 2 wee ks [employer] Phone: Start: 1955 Sex Assigned At Not on file B ON [employer] Phone: Start: 08-20-2023 End: 06-08-2024 Tobacco use panel [employer] Adolescent depressio n screening assessment 0 [employer] Start: 02-20-2022 Alcohol Comment on weekends, n ot often. [employer] Start: 12-04-2023 [facility] History of tobacco use Passive smoker [facility] Start: 12-04-2023 Alcohol intake Ex-drinker (finding) [facility] How often to you hav e a drink containing alcohol? 2-4 times a month [facility] Start: 12-04-2023 Alcohol Comment coffee daily [facility] Start: 07-21-2024 Tobacco smoking stat [facility] Smoker (finding) [facility] Start: 1955 Sex Assigned At Female F [facility] Goals Date Patient Goal Desired Activity /State Clinical Notes 03-08-2022 to 07-21-2024 Telephone Encounter - Isidra Alexis CMA - 01/15/2024 12:05 PM EDTTelephone Encounter - Isidra Alexis CMA - 01/15/2024 12:05 PM EDTCristobal White DPM - 12/04/2023 4:00 PM EST Note Date & Type Note Facility 07-21-2024 Procedure note [facility] 01-15-2024 Miscellaneous Notes They went to the wrong pharmacy documented in this encounter [facility] 01-15-2024 Telephone encounter Note They went to the wrong pharmacy [facility] 12-04-2023 History of Presen t illness [...] History: Diagnosis Date Allergies Anxiety Arthritis Asthma ([facility]) Cervical cancer ([facility]) COPD (chronic obstructive pulmonary disease) ([facility]) Depression ([facility]) History of medical problems knee scraping for knee replacement HTN (hypertension) ([facility]) Kidney disease Medications: Current Outpatient Medications: albuterol [...] Cristobal White DPM documented in this encounter [facility] 11-17-2023 Note [facility] Cardiology Clinic Note Chief Complaint: Patient here for 6 mo follow up mitral valve regurgitation, intermittent palpitations, and hypertension. Lisinopril was increased to 5mg at last apt in May 2023. BP was still running high a few weeks later so lisinopril was again increased to 10mg daily. She then c/o cough so Mirta Cheney switched her to losartan 25mg daily. She [...] mouth in the morning., Disp: , Rfl: [id number] 100-62.5-25 mcg blister with device, INHALE 1 [...] normal in s (more content not included)... [facility] 11-17-2023 Miscellaneous Notes Patient called into office requesting Referral Tarun White [facility] in [place] I do need a reason (diagnosis is required) to why she wants a referral. Patient would like her toe nails trimmed, she stated that her hand strength isn't there to cut them herself anymore. done documented in this encounter [facility] [employer] [facility] 11-17-2023 Telephone encounter Note Patient called into office requesting Referral Tarun White [facility] for [facility] [place] [facility] [employer] 11-17-2023 Telephone encounter Note I do need a reason (diagnosis is required) to why she wants a referral. [facility] [employer] 11-17-2023 Telephone encounter Note Patient would like her toe nails trimmed, she stated that her hand strength isn't there to cut them herself anymore. [facility] [employer] 11-17-2023 Telephone encounter Note done [facility] [employer] 06-25-2023 Note HTN remains uncontro lled therefore script to increase lisinopril to 10 mg daily. Repeat BMP in 1 week Reviewed labs from 06/19/23 and renal function, liver function and cholesterol are normal and well controlled K+ 5.0- will monitor Veronica Cheney NP Division of Cardiology, [facility] Ph- [phone] Pager- [phone] Email- [email or web address] 07-03-2022 Note PROCEDURE: XR ANKLE RT [...] by: YANELIS ENGEL Date: 2022-07-03 10:27 [facility] 04-03-2022 Note PROCEDURE: XR ANKLE RT [...] by: YANELIS ENGEL Date: 2022-04-03 15:51 [facility] 04-03-2022 Note PROCEDURE: XR ANKLE RT [...] authenticated by: YANELIS ENGEL Date: 2022-04-03 15:51 [facility] 03-08-2022 Note PROCEDURE: XR ELBOW RT MIN 3 VIEWS HISTORY: Pain ; right elbow pain and contusion after falling COMPARISON: None. FINDINGS: BONES:No fracture, acute abnormality, or significant arthropathy. SOFT TISSUES:No visible soft tissue swelling. EFFUSION:None visible. OTHER: Negative. IMPRESSION: 1. No acute bone abnormality. 2. Minimal degenerative changes. Electronically authenticated by: YANELIS ENGEL Date: 2022-03-08 12:09 [facility] Evaluation note Diagnosis Renal calculus Calculus of kidney Gross hematuria [facility]* Diagnosis Renal calculus Calculus of kidney Gross hematuria [facility]: [facility]* Diagnosis Renal calculus Calculus of kidney Gross hematuria documented in this encounter [employer] Phone: [email or web address] note* Diagnosis Renal calculus Calculus of kidney Pre-op testing Preoperative examination, unspecified Renal calculus Calculus of kidney documented in this encounter [employer] Phone: evalpzcyll note* Diagnosis Renal calculus Calculus of kidney Pre-op testing Preoperative examination, unspecified Renal calculus Calculus of kidney documented in this encounter [employer] Phone: evalyrlyie note* Diagnosis Hx of onychomycosis- Primary [facility] Diagnosis DJD (degenerative joint disease), ankle and foot, right- Primary Other specified disorders of synovium, right ankle and foot Onychomycosis Dermatophytosis of nail Toe pain, bilateral documented in this encounter [facility]* Diagnosis Chronic bronchitis with emphysema ([facility]-H[facility]) Obstructive chronic bronchitis without exacerbation Arthritis, multiple joint involvement Unspecified arthropathy, multiple sites Anxiety and depression Fibromyalgia Unspecified myalgia and myositis Acquired hypothyroidism Unspecified hypothyroidism Benign essential HTN Primary insomnia Persistent disorder of initiating or maintaining sleep [facility] Diagnosis Chronic bronchitis with emphysema ([facility]-HCC) Obstructive chronic bronchitis without exacerbation Arthritis, multiple joint involvement Unspecified arthropathy, multiple sites Anxiety and depression Fibromyalgia Unspecified myalgia and myositis Acquired hypothyroidism Unspecified hypothyroidism Benign essential HTN Primary insomnia Persistent disorder of initiating or maintaining sleep History of kidney stones [facility] this [facility]* Diagnosis Microscopic hematuria documented in this encounter [facility] [employer] HEALTHEvaluation noteNo assessment information available [facility] Work Phone: History and physical note Author Wanda Hagan [facility] July 21, 2024 8:40am Note Date/Time July 21, 2024 8: 40am [facility] [address] [place] [address] Gastroenterology H&P Signed Patient: Robyn Thorpe MR#: [id number] : 1955 Acct:[id number] Age/Sex: 68 / F Adm Date: 4 Loc: Room: Type: [facility] Attending Dr: Wanda Hagan MD Copies to: MD Jairo Cui~ Date of Service: 07/21/2024 HISTORY & PHYSICAL: Patient's history with special attention to the cardiovascular, pulmonary systems and the current problem was reviewed with the patient immediately prior to the procedure. Present medications and doses reviewed in the EMR. Allergies and pertinent laboratory tests were also reviewedat this time in the EMR. The physical examination, as below, was then performed. Indication, assessment and HPI: 68-year-old female here for screening colonoscopy Family history of GI malignancy? No PHYSICAL EXAMINATION General appearance: NAD Skin: No jaundice Head: NC/AT Eyes: Anicteric Neck: Supple Lungs: Normal respiratory effort, no use of accessory muscles Abdomen: nondistended Neuro: Ox3. REVIEW OF SYSTEMS Constitutional: Denies malaise, fevers Cardiovascular: Denies chest pain, palpitations Respiratory: Denies shortness of breath, wheezing Gastrointestinal: As per HPI Genitourinary: Denies dysuria, polyuria Musculoskeletal: Denies joint swelling, joint stiffness Neurological: Denies confusion, numbness, tingling Endocrine: Denies fatigue Written informed consent obtained from the patient. Risks (including but not limited to perforation, infection, bloating, bleeding, need for emergent surgeryand loss of life), benefits and alternatives explained and questions answered. The patient verbalized understanding. Based on history patient is an appropriate candidate for the procedure. Wanda Hagan M.D. Documented By: Wanda Hagan MD 07/21/24 0839 Signed By: <Electronically signed by Wanda Hagan MD> 07/21/24 0840 [facility] Work Phone: InstructionsNot on filedocumented in this encounter [facility] filedocument[facility] in this encounter [facility]ructionsNot on filedocumented in this encounter [facility] for [facility] (narrative)* Consultation (Routine) - Pending Review Specialty Diagnoses / Procedures Referred By Gregor prabhakar Referred To Contact Podiatry Diagnoses Hx of onychomycosis Jairo Daley, SPLITTING MACHINE FEEDER-BAR PILOT [address] [place] [address] Cristobal White DPM [address] [facility] [address] [place] [address] Referral ID Status Reason Start Date Expiration Date Visits Requested Visits Authorized [id number] Pending Review Specialty Services Required 11/17/2023 11/16/2024 1 1 [email or web address] Summary Purpose Family History Relationship Condition Age at Onset Recorded Date/T chen father Unknown Malignant neoplasm Unknown Heart disease Unknown Hypertension Unknown mother Diabetes mellitus Unknown Family history of kidney disease Unknown Advance Directives Date Activated Date Inactivated Comments 01/21/2023 8:09 AM 01/21/2023 4:07 PM Advance Directive Response Recorded Date/ Time Advance Directives No May 18 10:27am Reason for Referral Specialty Diagnoses / Procedures Referred By Contac t Referred To Contact Radiology Diagnoses Renal calculus Gross hematuria Renal Calculus [N20.0] Gross Hematuria [R31.0] Procedures CT UROGRAM CHG CT ABDOMEN & PELVIS W/O CONTRST 1/> [place] [id number] - CHG CT ABDOMEN & PELVIS W/O CONTRST 1/> BODY RE Jason Au MD [address] [facility], [address] [place] [address] Referral ID Status Reason Start Date Expiration Date Visits Re quested Visits Authorized [id number] Closed 12/12/2022 12/12/2023 1 1 Specialty Diagnoses / Procedures Referred By Contac t Referred To Contact Cardiology Diagnoses Renal calculus Pre-op testing Procedures EKG 12 Lead Bo Black APRN - BAR PILOT [address] [facility] [address] [place] [address] Referral ID Status Reason Start Date Expiration Date Visits Re quested Visits Authorized [id number] Open 01/02/2023 01/02/2024 1 1 Chief Complaint and Reason for Visit Chief Complaint Screening Screening Additional Source Comments INFORMATION SOURCE (unrecogn ized section and content) DATE CREATED AUTHOR 09/22/2022 [facility] [place] DATE CREATED AUTHOR AUTHOR'S ORGANIZ ATION 03/03/2023 [facility] DATE CREATED AUTHOR AUTHOR'S ORGANIZ ATION 12/19/2023 [facility] DATE CREATED AUTHOR AUTHOR'S ORGANIZ ATION 04/12/2024 [facility] DATE CREATED AUTHOR AUTHOR'S ORGANIZ ATION 06/15/2024 [facility] DATE CREATED AUTHOR AUTHOR'S ORGANIZ ATION 07/10/2024 [facility] EPIC DATE CREATED AUTHOR AUTHOR'S ORGANIZ ATION 07/13/2024 [facility] DATE CREATED AUTHOR AUTHOR'S ORGANIZ ATION 07/22/2024 [facility] y[facility] Care Teams (unrecognized sec tion and content) Home Economist Relationship Specialty Start Date End Date Jairo Daley SPLITTING MACHINE FEEDER - [employer] [address] [place] [address] PCP - General 12/12/22 Home Economist Relationship Specialty Start Date End Date Jairo Daley APRN - BAR PIL[employer] [address] [place] [address] PCP - General 12/12/22 Home Economist Relationship Specialty Start Date End Date Jairo Daley SPLITTING MACHINE FEEDER - [employer] [address] [place] [address] PCP - General 12/12/22 Home Economist Relationship Specialty Start Date End Date Jairo Daley SPLITTING MACHINE FEEDER - [employer] [address] [place] [address] PCP - General 12/12/22 Home Economist Relationship Specialty Start Date End Date Jairo Daley SPLITTING MACHINE FEEDER-BAR PILOT [address] [place] [address] PCP - General Family Medicine 02/20/22 Home Economist Relationship Specialty Start Date End Date [facility] [address] [place] [address] PCP - General Family Medicine 02/20/22 Home Economist Relationship Specialty Start Date End Date Jairo Daley [facility] [address] [place] [address] PCP - General Family Medicine 02/20/22 Home Economist Relationship Specialty Start Date End Date Jairo Daley [facility] [address] [place] [address] PCP - General 12/12/22 Team Status: Active Member Role Status Dates LINDA Haas Primary Care Provider Active Team Status: Active Member Role Status Dates Sid Seth DO Attending Provider Active Sta rt: April 26, 2024 Team Status: Inactive Member Role Status Dates Wanda Hagan MD Attending Provider Active Start: July 21, 2024 End: July 21, 2024 LINDA Haas Primary Care Provider Active Start: July 21, 2024 End: July 21, 2024 Team Status: Active Member Role Status Dates Wanda Hagan MD Attending Provider, Other Provider Active Start: July 21, 2024 LINDA Haas Primary Care Provider Active Start: July 21, 2024 Reason for Visit (unrecogniz ed section and content) Specialty Diagnoses / Procedures Referred By Gregor t Referred To Contact Radiology Diagnoses Renal calculus Gross hematuria Renal Calculus [N20.0] Gross Hematuria [R31.0] Procedures CT UROGRAM CHG CT ABDOMEN & PELVIS W/O CONTRST 1/> [place] [id number] - CHG CT ABDOMEN & PELVIS W/O CONTRST 1/> BODY RE Jason Au MD [address] [facility], [address] [place] [address] Referral ID Status Reason Start Date Expiration Date Visits Re quested Visits Authorized [id number] Closed 12/12/2022 12/12/2023 1 1 Reason Comments DM Foot Care Dm Nails/ fungus Specialty Diagnoses / Procedures Referred By Contlou t Referred To Contact Podiatry Diagnoses Hx of onychomycosis Procedures AMB REFERRAL TO PODIATRY Jairo Daley CRNP [address] [facility], [place] [address] Cristobal White, VIKI [address] [place] [address] Referral ID Status Reason Start Date Expiration Date Visits Re quested Visits Authorized [id number] Closed 11/17/2023 11/16/2024 1 1 Reason Onset [...] BE BASED ON THE PRIMARY CLINICAL RECORDS. [facility] [employer] [facility]. provides no warranty or guarantee of the accuracy or completeness of information in this document.
== END 2024-07-26 10:52 | disposition home or self-care (01) ==
LOC: EC 10:51
PROVIDERS: PCP Nurse Practitioner; Visit Provider Orthopaedic Surgery
DX: M25.561 Pain in right knee (principal)
CPT/HCPCS: 73564

== ENCOUNTER 2024-11-22 11:47 | Outpatient (OUT) | payer MEDICARE, SELFPAY ==
--- OUTSIDE RECORDS SUMMARY | 2024-11-22 11:53 | XMS_ITS | CCD ---
Author Organization [facility] Care Team Providers Care Clinic Mgr Name Role Phone RANDAL ORTIZ Attending Unavailable Daley PATIENT INSURANCE CLERK - INTERNET CAFE MANAGER, Jairo Cabrera Primary Care [facility] ider BRAULIO LASSITER Consulting Unavailable AJIT ., [...] Admitting Unavailable SAMSA ., FAN Consulting Unavailable TORO, DR YANELIS Zaldivar Consulting Unavailable DALEY, JAIRO Primary Care Unavailable SUNNY VALENTIN Attending Unavailable SUNNY VALENTIN Admitting Unavailable SUNNY VALENTIN Consulting Unavailable Daley PATIENT INSURANCE CLERK-INTERNET CAFE MANAGER, Jairo J Primary Care Provid er Unavailable Primary Care Provider UnavailJAIRO Estes J Referring Unavailable DALEY, JAIRO J Primary Care Unavailable PRANAV TRINIDAD Attending Unavailable Daley PATIENT INSURANCE CLERK - INTERNET CAFE MANAGER, Jairo J Primary Care Prov ider CRISTOBAL OWENS Attending Unavailable DALEY, JAIRO Referring Unavailable CRISTOBAL OWENS Attending Unavailable CRISTOBAL OWENS Attending Unavailable CRISTOBAL OWENS Attending Unavailable CRISTOBAL OWENS Attending Unavailable JASON DOMINGUEZ Referring Unavailable DALEY, JAIRO J Primary Care Unavailable JASON DOMINGUEZ Referring Unavailable DALEY, JAIRO J Primary Care Unavailable BO DARLING Referring Unavailable DALEY, JAIRO J Primary Care Unavailable BO DARLING Referring Unavailable DALEY, JAIRO J Primary Care Unavailable BO DARLING Referring Unavailable DALEY, JAIRO J Primary Care Unavailable MD Danya Imflo Attending Provider LINDA Daley Primary Care Provider Asaad, Imad Admitting Unavailable Wanda Hagan Attending Unavailable Daley Jairo J Primary Care Unavailable Daley Selvin ROSAe Unavailable [phone] Unallocated , Cruzs Provider Primary Care Provi nabeel JAIRO DALEY Attending Unavailable DALEY JAIRO J Referring Unavailable DALEY, JAIRO J Primary Care Unavailable DALEYRIA CARLOSERIE J Attending Unavailable DALEY JAIRO J Referring Unavailable DALEY, JAIRO J Primary Care Unavailable DALEYSELVIN CARLOSE J Attending Unavailable DALEY, JAIRO J Referring Unavailable DALEY, JAIRO J Primary Care Unavailable DALEY, JAIRO J Attending Unavailable DALEY, JAIRO J Referring Unavailable JAIRO DALEY Primary Care Unavailable JAIRO DALEY Attending Unavailable JAIRO DALEY Referring Unavailable JAIRO DALEY Primary Care Unavailable JAIRO DALEY Attending Unavailable JAIRO DALEY Referring Unavailable JAIRO DALEY Primary Care Unavailable Allergies Allergy Classification Reported Allergen(s) Allergy Type Date of Onset Reaction(s) Facility (6 sources) Silicone adhesive tape Propensity to adverse reactions to drug 3 Rash [facility] (1 source) bee venom Drug allergy (disorder) 6 [facility] (1 source) Latex Drug allergy (disorder) [facility] (10 sources) Adhesive agent; Translations: [ADHESIVE] Propensity to adverse reactions to drug 3 Rash [facility] (11 sources) Lisinopril; Translations: [LISINOPRIL] Drug Allergy 3 Cough [facility] (10 sources) Bee Venom Protein (Honey Bee); Translations: [BEE VENOM PROTEIN (HONEY BEE)] Propensity to adverse reactions to drug 3 [facility] (4 sources) Honey bee venom Allergy to substance 3 Anaphylaxis [facility] (4 sources) Lisinopril Propensity to adverse reactions 3 Cough [facility] (4 sources) Attends Briefs Small Drug Intolerance 3 [facility] NEGATED: Highlighted row has been ruled [...] 1 tab Q 4 hrs PRN Active [id number] 200 actuat albuterol 0.09 mg/actuat metered dose inhaler (20 sources) beta2-Adrenergic Agonist Start: 07-07-2024 Albuterol Sulfate (Ventolin Hfa) 90 mcg/actuation HFA aerosol inhaler Active 1 PUFF INHALATION Q20M July 07, 2024 12:00am FreeTextSi puffs as needed Inhalation prn; Note: Source Status: Taking; Provider: Neha Collazo ( ) Start: 03-03-2023 End: 01-15-2024 take 2 puff(s) by inhalation every four hours as needed for wheezing albuterol (PROVENTIL HFA;VENTOLIN HFA) 90 mcg/actuation inhaler Indications: Chronic bronchitis with emphysema ([facility]) Inhale 2 puffs every 4 (four) hours as needed for wheezing or shortness of breath. 18 g 6 01/15/2024 Active Start: 03-03-2023 take 2 puff(s) by in halation every four hours as needed for wheezing albuterol sulfate HFA (PROVENTIL;VENTOLIN;PROAIR) 108 (90 Base) MCG/ACT inhaler INHALE 2 PUFFS EVERY 4 HOURS NEEDED FOR WHEEZING OR SHORTNESS OF BREATH 03/03/2023 Active Start: 03-03-2023 take 2 puff(s) by mo uth every six hours as needed albuterol HFA 90 mcg/act inhaler TAKE TWO PUFFS BY MOUTH EVERY 6 HOURS NEEDED 03/03/2023 Active take 2 puff(s) by in halation four times daily as needed ALBUTEROL IN Inhale into the lungs. 2 puffs 4 times a day PRN 0 Active [id number] Tvt-[id number]-Asb-C (1 source) Osmotic Laxative, Vitamin C Start: 06-04-2024 take 1 dose by mouth once daily [id number] Rbv-Jvhd-[id number]-Asb-C (Plenvu) 140-9-5.2 gram powder in packet, sequential [...] mouth daily. 30 capsule 11 02/06/2012 Active azithromycin 250 mg oral tablet (1 source) Macrolide Antimicrobial Start: 09-13-2024 End: 09-17-2024 azithromycin (ZITHROMAX) 250 mg tablet Indications: COPD exacerbation ([facility]) Take 2 tablets the first day, then 1 tablet daily for 4 days. 6 tablet 09/13/2024 09/17/2024 Active diclofenac sodium 75 mg delayed release oral tablet (16 sources) Nonsteroidal Anti-inflammatory Drug Start: 04-12-2024 End: 08-10-2024 take 1 tablet by mouth in the [...] BEFORE BEDTIME. For pain.. 180 tablet 1 08/10/2024 Active Start: 12-11-2023 End: 01-15-2024 take 1 tablet [...] 1 TABLET BEFORE BEDTIME 0 11/17/2022 Active [id number] 0.3 ml EPINEPHrine 1 mg/ml auto-injector (14 sources) alpha-Adrenergic Agonist, beta-Adrenergic Agonist, Catecholamine Start: 01-16-2023 End: 08-10-2024 EPINEPHrine (EPIPEN) 0.3 mg/0.3 mL auto-injector USE DIRECTED FOR BEE STINGS 2 each 3 01/16/2023 08/10/2024 Discontinued (Therapy completed) Start: 02-07-2012 EPINEPHrine (E PIPEN 2-ROSALINDA) 0.3 [...] 02/07/2012 Active FLUoxetine 10 mg oral capsule (15 sources) Serotonin Reuptake Inhibitor Start: 04-12-2024 End: 08-10-2024 take 1 capsule by mouth once daily FLUoxetine (PROzac) 10 mg capsule Indications: Anxiety and depression Take 1 capsule (10 mg total) by mouth nightly. 90 capsule 1 08/10/2024 Active Start: 12-11-2023 End: 01-15-2024 take 1 capsule by mouth once daily FLUoxetine (PROzac) 10 mg capsule Indications: Anxiety and depression Take 1 capsule (10 mg total) by mouth nightly. 90 capsule 1 01/15/2024 Active Start: 08-03-2023 take 1 capsule by [facility] once daily FLUoxetine (PROzac) 10 mg capsule Indications: Anxiety and depression TAKE 1 CAPSULE (10 MG TOTAL) BY MOUTH NIGHTLY. 90 capsule 1 08/03/2023 Active Start: 09-04-2022 take 1 capsule by mo [facility] once daily FLUoxetine (PROZAC) 10 MG capsule [...] / vilanterol 0.025 mg/actuat dry powder inhaler (16 sources) Anticholinergic, Corticosteroid, beta2-Adrenergic Agonist Start: 04-12-2024 End: 08-10-2024 take 1 puff(s) by mouth once daily TRELEGY ELLIPTA 100-62.5-25 mcg blister with device Indications: Chronic bronchitis with emphysema (CMS-HCC) INHALE 1 PUFF BY MOUTH EVERYDAY *RINSE MOUTH AFTER USE* Strength: 100-62.5-25 mcg 28 each 6 08/10/2024 Active Start: 08-20-2023 End: 01-15-2024 take 1 puff(s) by mouth once daily TRELEGY ELLIPTA 100-62.5-25 mcg blister with device Indications: Chronic bronchitis with emphysema (CMS-HCC) INHALE 1 PUFF BY MOUTH EVERYDAY *RINSE MOUTH AFTER USE* Strength: 100-62.5-25 mcg 28 each 6 01/15/2024 Active gabapentin 300 mg oral capsule (20 sources) Anti-epileptic Agent Start: 07-07-2024 take 100 mg by mouth twice daily Gabapentin Active 100 MG PO 2 times daily July 07, 2024 12:00am Start: 04-12-2024 End: 08-10-2024 take 1 capsule by mouth once daily in the morning gabapentin (NEURONTIN) 100 mg capsule Indications: Fibromyalgia TAKE 1 CAPSULE BY MOUTH EVERY MORNING AND AFTERNOON 180 capsule 1 08/10/2024 Active Start: 12-11-2023 End: 01-15-2024 take 1 capsule by mouth once daily in the morning gabapentin (NEURONTIN) 100 mg capsule Indications: Fibromyalgia TAKE 1 CAPSULE BY MOUTH EVERY MORNING AND AFTERNOON Strength: 100 mg 180 capsule 1 01/15/2024 Active Start: 08-20-2023 take 1 capsule by mo ut once daily in the morning gabapentin (NEURONTIN) 100 mg capsule Indications: Fibromyalgia TAKE 1 CAPSULE BY MOUTH EVERY MORNING AND AFTERNOON Strength: 100 mg 180 capsule 0 08/20/2023 Active Start: 10-28-2022 End: 08-10-2024 take 1 capsule by mouth once daily gabapentin (NEURONTIN) 300 mg capsule Indications: Fibromyalgia Take 1 capsule (300 mg total) by mouth nightly. 90 capsule 1 08/10/2024 Active levothyroxine sodium 0.025 mg oral tablet (11 sources) l-Thyroxine Start: 04-12-2024 End: 08-10-2024 take 1 tablet by mouth in the morning levothyroxine (SYNTHROID, LEVOTHROID) 25 MCG tablet Indications: Acquired hypothyroidism Take 1 tablet (25 mcg total) by mouth in the morning. 90 tablet 1 08/10/2024 Active Start: 12-15-2023 End: 01-15-2024 take 1 tablet [...] 10/02/2023 Active lisinopril 10 mg oral tablet (5 sources) Angiotensin Converting Enzyme Inhibitor Start: 06-25-2023 End: 12-22-2023 take 1 tablet by mouth in the morning lisinopril 10 MG tablet Take 10 mg by mouth in the morning. 06/25/2023 Active losartan potassium 100 mg oral tablet (13 sources) Angiotensin 2 Receptor Julio C Start: 11-03-2024 End: 11-03-2025 take 1 tablet by mouth in the morning losartan (COZAAR) 100 mg tablet Indications: Benign essential HTN Take 1 tablet (100 mg total) by mouth in the morning. 90 tablet 3 11/03/2024 11/03/2025 Active Start: 07-03-2023 End: 04-12-2025 take 1 tablet by mouth in the morning losartan (COZAAR) 25 mg tablet Indications: Benign essential HTN Take 1 tablet (25 mg total) by mouth in the morning. 90 tablet 3 04/12/2024 11/03/2024 Discontinued (Reorder) methocarbamol 500 mg oral tablet (4 sources) Muscle Relaxant take 1 tablet by mouth three times daily as needed methocarbamol (Robaxin) 500 MG tablet Take 1 tablet by mouth 3 (three) times a day as needed Active metoprolol tartrate 25 mg oral tablet (20 sources) beta-Adrenergic Julio C Start: 2022 End: 2023 metoprolol tartrate (LOPRESSOR) 25 mg tablet Indications: Benign essential HTN TAKE 1 TABLET IN THE MORNING AND 1 TABLET BEFORE BEDTIME Strength: 25 mg 180 tablet 1 08/10/2024 Active nitroglycerin 0.4 mg sublingual tablet (17 sources) Nitrate Vasodilator nitroglyceri n (NITROSTAT) 0.4 MG SL tablet as directed Sublingual Active propylthiouracil 50 mg oral tablet (11 sources) Thyroid Hormone Synthesis Inhibitor Start: 2022 propylthiouracil (PTU) 50 MG tablet propylthiouracil 50 mg tablet TAKE 1 TABLET BY MOUTH IN THE MORNING, 1 TABLET AT NOON, 1 TABLET BEFORE BEDTIME 10/31/2022 Active spironolactone 25 mg oral tablet (12 sources) Aldosterone Antagonist Start: 2022 End: 2024 take 1 tablet by mouth in the morning spironolactone (ALDACTONE) 25 mg tablet Indications: Benign essential HTN Take 1 tablet (25 mg total) by mouth in the morning. 90 tablet 3 04/12/2024 04/12/2025 Active tiotropium (5 sources) Anticholinergic Tiotropium Bromi de Monohydrate (SPIRIVA HANDIHALER IN) Inhale into the lungs daily. 0 Active traMADol hydrochloride 50 mg oral tablet (8 sources) Opioid Agonist Start: 2023 take 1 tablet by mouth every six hours as needed for pain traMADoL (ULTRAM) 50 mg tablet Indications: Arthritis, multiple joint involvement , Fibromyalgia Take 1 tablet (50 mg total) by mouth every 6 (six) hours as needed for pain. 40 tablet 08/10/2024 Active Start: 01-14-2023 take 1 tablet by tapan th every eight hours as needed for pain traMADol (Ultram) 50 MG tablet TAKE 1 TABLET BY MOUTH EVERY 8 HOURS NEEDED FOR PAIN FOR UP TO 5 DAYS. 01/14/2023 Active traZODone hydrochloride 150 mg oral tablet (20 sources) Serotonin Reuptake Inhibitor Start: 07-07-2024 take 1 tablet by mouth once daily at bedtime Trazodone Active 50 MG PO Daily at bedtime July 07, 2024 12:00am FreeTextSi tablet at bedtime as needed Orally Once a day; Note: Source Status: Taking; Provider: Neha Collazo ( ) Start: 10-31-2022 End: 08-10-2024 take 1 tablet by mouth once daily traZODone (DESYREL) 150 mg tablet Indications: Primary insomnia Take 1 tablet (150 mg total) by mouth nightly. 90 tablet 1 08/10/2024 Active UNABLE TO FIND (5 sources) UNABLE [...] iopamidol (ISOVUE-370) 76 % injection 120 mL predniSONE 20 mg oral tablet (3 sources) Start: 10-06-2024 End: 11-03-2024 predniSONE (DELTASONE) 20 mg tablet Indications: COPD exacerbation (CMS-HCC) Take 1 tablet (20 mg total) by mouth See Admin Instructions. 1 tab 2x daily x3 days, 1 tab daily x3 days, 1/2 tablet daily x4 days 11 tablet 10/06/2024 11/03/2024 Discontinued (Therapy completed) Start: 09-13-2024 predniSONE (DE LTASONE) 20 mg tablet Indications: COPD exacerbation (CMS-HCC) Take 1 tablet (20 mg total) by mouth See Admin Instructions. 1 tab 2x daily x3 days, 1 tab daily x3 days, 1/2 tablet daily x4 days 11 tablet 09/13/2024 Active Problems Active Problems Problem Classification Problem Date Documented Date Episodic/Chronic Anxiety disorders (4 sources) Mixed anxiety and depressive disorder; Translations: [Anxiety disorder, unspecified] Onset: 04-12-2024 01-13-2024 Chronic Bacterial infection; unspecified site (1 source) Other specified bacterial agents as the cause of diseases classified elsewhere; Translations: [Other specified bacterial agents as the cause of diseases classified elsewhere] Onset: 10-06-2024 Episodic Cancer of cervix (1 source) Personal history of malignant neoplasm of cervix uteri; Translations: [PERS HX MALIG NEOPLASM CERV UTERI] Onset: 12-05-2022 Episodic Chronic obstructive pulmonary disease and bronchiectasis (20 sources) Emphysema, unspecified; Translations: [Chronic bronchitis] Onset: 04-01-2022 Resolved: 11-03-2024 04-01-2022 Chronic Chronic obstructive pulmonary disease and bronchiectasis (1 source) Chronic obstructive pulmonary disease and bronchiectasis; Translations: [Other specified chronic obstructive pulmonary disease] Onset: 04-01-2022 Disorders of lipid metabolism (2 sources) Mixed hyperlipidemia; Translations: [Mixed hyperlipidemia] Onset: 08-10-2024 08-10-2024 Chronic Disorders usually diagnosed in infancy, childhood, or adolescence (13 sources) Attention deficit hyperactivity disorder, predominantly inattentive [...] WITHOUT ESOPHAGITIS] Onset: 12-05-2022 Chronic Essential hypertension (18 sources) Essential (primary) hypertension; Translations: [Essential hypertension] Onset: 11-10-2019 04-01-2022 Chronic Genitourinary symptoms and ill-defined conditions (7 sources) Rafael hematuria; Translations: [Gross hematuria] Onset: 06-08-2024 Episodic Headache; including migraine (1 source) Headache; including migraine; Translations: [HEADACHE UNSPECIFIED] Onset: 10-25-2022 Heart valve disorders (13 sources) Nonrheumatic mitral (valve) insufficiency; Translations: [Mitral valve regurgitation] Onset: 06-14-2021 Chronic Immunizations and screening for infectious disease (4 sources) Encounter for screening for other viral diseases; Translations: [Needs influenza immunization] Onset: 12-11-2023 08-10-2024 Episodic Joint disorders and dislocations; trauma-related (14 sources) Chondromalacia of left patella; Translations: [Chondromalacia patellae, left knee] Onset: 11-11-2022 11-11-2022 Chronic Miscellaneous mental health disorders (4 sources) Primary insomnia; Translations: [Primary insomnia] Onset: 08-20-2023 01-13-2024 Chronic Mood disorders (1 source) Depression Onset: 04-12-2024 Chronic Mood disorders (8 sources) Mood disorders; Translations: [Depression, unspecified] Onset: 08-20-2023 Resolved: 09-13-2024 08-20-2023 Osteoarthritis (10 sources) Unspecified osteoarthritis, unspecified site; Translations: [Arthritis of left knee] Onset: 06-21-2022 11-11-2022 Chronic Other aftercare (1 source) Other terminal 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 up operator (current) drug therapy; Translations: [OTH NURSING HOME CURRENT DRUG THERAPY] Onset: 12-05-2022 Episodic Other connective tissue disease (2 sources) Disorder of musculoskeletal system; Translations: [Other specified disorders of synovium, right ankle and foot] 12-04-2023 Episodic Other ear and sense organ disorders (1 source) Unspecified hearing loss, left ear; Translations: [UNSPECIFIED HEARING LOSS LEFT EAR] Onset: 12-05-2022 Chronic Other ear and sense organ disorders (11 sources) Sensorineural hearing loss, unilateral, left ear, with unrestricted hearing on the contralateral side; Translations: [Sensorineural hearing loss, unilateral] Onset: 10-21-2022 Chronic Other ear and sense organ disorders (1 source) Unspecified hearing loss, unspecified ear; Translations: [UNS HEARING LOSS UNSPECIFIED EAR] Onset: 06-21-2022 Chronic Other ear and sense organ disorders (7 sources) Deafness of left ear; Translations: [Unspecified [...] Onset: 12-05-2022 Chronic Other nervous system disorders (7 sources) Chronic pain syndrome; Translations: [Chronic pain syndrome] Onset: 11-11-2022 11-11-2022 Chronic Other non-traumatic joint disorders (3 sources) Arthropathy of multiple joints; Translations: [Arthropathy, [...] Chronic Other nutritional; endocrine; and metabolic disorders (8 sources) Morbid obesity; Translations: [Morbid (severe) obesity due to excess calories] Onset: 11-11-2022 11-11-2022 Chronic Other nutritional; endocrine; and metabolic disorders (1 source) Morbid (severe) obesity due to excess calories; Translations: [Morbid (severe) obesity due to excess calories] Onset: 11-11-2022 Chronic Other screening for suspected conditions (not mental disorders or infectious disease) (6 sources) Encounter for screening for osteoporosis; Translations: [Encounter for screening mammogram for malignant neoplasm of breast] Onset: 08-18-2022 08-10-2024 Episodic Other upper respiratory infections (2 sources) Chronic maxillary sinusitis; Translations: [Chronic sinusitis, unspecified] Onset: 10-25-2022 Chronic Residual codes; unclassified (1 source) Acquired absence of both cervix and uterus; Translations: [ACQUIRED ABSENCE BOTH CERVIX AND UTERUS] Onset: 12-05-2022 Episodic Spondylosis; intervertebral disc disorders; other back problems (20 sources) Lumbar post-laminectomy syndrome; Translations: [Postlaminectomy syndrome, not elsewhere classified] Onset: 11-11-2022 11-11-2022 Chronic Spondylosis; intervertebral disc disorders; other back problems (1 source) Dorsalgia, unspecified; Translations: [DORSALGIA UNSPECIFIED] Onset: 12-05-2022 Episodic Substance-related disorders (19 sources) Nicotine dependence, cigarettes, uncomplicated; Translations: [Nicotine dependence, cigarettes, with unspecified nicotine-induced disorders] Onset: 04-01-2022 Chronic Superficial injury; contusion (3 sources) Contusion of left front wall of thorax, initial encounter; Translations: [Contusion of right elbow, initial encounter] Onset: 03-11-2022 Episodic Thyroid disorders (14 sources) Graves' disease; Translations: [Thyrotoxicosis with diffuse goiter without thyrotoxic crisis or storm] Onset: 05-25-2020 04-01-2022 Chronic Unclassified (1 source) Annual Exam Onset: 09-13-2024 Unclassified (1 source) fibro Onset: 08-10-2024 Past or Other Problems Problem Classification Problem Date Documented Da te Episodic/Chronic Abdominal pain (4 sources) Unspecified abdominal pain; Translations: [UNSPECIFIED ABDOMINAL PAIN] Onset: 08-07-2022 Episodic Calculus of urinary tract (18 sources) Kidney stone; Translations: [Calculus of kidney] Onset: 08-11-2022 Episodic Cancer of ovary (1 source) Personal history of malignant neoplasm of ovary; Translations: [PERSONAL HX MALIG NEOPLASM OVARY] Onset: 06-21-2022 Episodic Cardiac dysrhythmias (7 sources) Intermittent palpitations; Translations: [Palpitations] Onset: 05-23-2023 08-20-2023 Episodic Gastrointestinal hemorrhage (4 sources) Melena; Translations: [MELENA] Onset: 06-19-2022 Episodic Mycoses (3 sources) Onychomycosis; Translations: [Tinea unguium] 12-04-2023 Episodic Nonspecific chest pain (7 sources) Atypical chest pain; Translations: [Other chest pain] Onset: 05-19-2018 08-20-2023 Episodic Other bone disease and musculoskeletal deformities (1 source) Other specified disorders of bone density and structure, left thigh; Translations: [OTH D/O BONE DEN STRUCT LT THIGH] Onset: 08-18-2022 Episodic Other bone disease and musculoskeletal deformities (7 sources) Bone cyst; Translations: [Other cyst of bone, unspecified site] Onset: 05-23-2023 08-20-2023 Episodic Other connective tissue disease (1 source) Pain in right foot; Translations: [PAIN IN RIGHT FOOT] Onset: 04-04-2022 Episodic Other connective tissue disease (11 sources) Fibromyalgia; Translations: [Fibromyalgia] Onset: 11-11-2022 11-11-2022 Episodic Other connective tissue disease (3 sources) Pain of toes of bilateral feet; Translations: [Pain in right toe(s)] 12-04-2023 Episodic Other connective tissue disease (1 source) [...] UNS] Onset: 10-25-2022 Episodic Residual codes; unclassified (13 sources) Insomnia; Translations: [Insomnia, unspecified] Onset: 02-06-2012 [...] [ACQUIRED ABSENCE OVARIES BILATERAL] Onset: 06-21-2022 Episodic Sprains and strains (1 source) Tendon injury - lower limb; Translations: [Strain of muscle(s) and tendon(s) of peroneal muscle group at lower leg level, right leg, initial encounter] 07-01-2024 Episodic Unclassified (1 source) AMS, low o2 stats Onset: 09-11-2022 Unclassified (7 sources) Onset: 08-20-2023 Resolved: 11-03-2024 08-20-2023 Results Test Name Value Interpretation Reference Range Facility Amphetamine Screen Ql (U)Ord ered By: Wanda Hagan on 07-21-2024 Amphetamines Ql (U) Negative Negative [facility] Barbiturates [Presence] in U rine by Screen methodOrdered By: Wanda Hagan on 07-21-2024 Barbiturates Screen Ql (U) Negative Negative [facility] Benzodiazepines Screen Ql (U )Ordered By: flo Hagan on 07-21-2024 Benzodiazepines Ql (U) Negative Negative [facility] Benzoylecgonine [Presence] i n Urine by Screen methodOrdered By: flo Hagan on 07-21-2024 Benzoylecgonine Screen Ql (U) Negative Negative [facility] Cannabinoids [Presence] in U rine by Screen methodOrdered By: flo Hagan on 07-21-2024 Cannabinoids Screen Ql (U) Positive High Negative [facility] Comment on above: These are unconfirme d results and should not be used for legal purposes. Drug Cut-Off Concentration: AMPH 1000 ng/mL JAMES 200 ng/mL TERESSA 200 ng/mL COCM 300 ng/mL OP 300 ng/mL PCP 25 ng/mL THC 20 ng/mL Drug Screen,Urineon 07-21-20 24 Amphetamine Screen,Urine Negative Normal Negative [facility] Comment on above: Performed By: #### U RDS #### [address] Barbiturate Screen,Urine Negative Normal Negative [facility] Comment on above: Performed By: #### U RDS #### [address] Benzodiazepines Screen,Urine Negative Normal Negative [facility] Comment on above: Performed By: #### U RDS #### [address] Cannabinoid Screen,Urine Positive High Negative [facility] Comment on above: Result Comment: Thes e are unconfirmed results and should not be used for legal purposes. Drug Cut-Off Concentration: AMPH 1000 ng/mL JAMES 200 ng/mL TERESSA 200 ng/mL COCM 300 ng/mL OP 300 ng/mL PCP 25 ng/mL THC 20 ng/mL PERFORMED BY: [place] [address] PATHOLOGIST [employer] STAM[employer] FREDERIC CHRISTINA M.D. Performed By: #### U RDS #### [address] Cocaine Screen,Urine Negative Normal Negative [facility] Comment on above: Performed By: #### U RDS #### [address] Opiate Screen,Urine Negative Normal Negative [facility] Comment on above: Performed By: #### U RDS #### [address] Phencyclidine Screen,Urine Negative Normal Negative [facility] Comment on above: Performed By: #### U RDS #### [address] Opiates [Presence] in Urine by Screen methodOrdered By: Imad Asaad on 07-21-2024 Opiates Screen Ql (U) Negative Negative [facility] Pathology Request for Lab Co rpon 07-21-2024 Pathology Request for Lab Jesus Manuel Normal [facility] Comment on above: Order Comment: PATHO LOGY GI SPECIMEN Result Comment: See report. Scanned copy available in EMR. PERFORMED BY: [place] [address] PATHOLOGIST [employer] STAMPER FREDERIC CHRISTINA M.D. Performed By: #### P ATH TO [facility] #### [facility] [address] Phencyclidine Screen Ql (U)O rdered By: Wanda Hagan on 07-21-2024 Phencyclidine Ql (U) Negative Negative [facility] BUN & Creatinineon 4 Creatinine [Mass/Vol] 0.8 mg/dL 0.50 - 0.90 mg/dL [facility] Est, Glom Filt Rate 84 - PINF [facility] Comment on above: These results are [...] laboratory results Abnormal [facility] Urea nitrogen [Mass/Vol] 24 mg/dL High 8 - 23 mg/dL [facility] BUN + Creatinineon 4 Creatinine [Mass/Vol] 0.8 mg/dL Normal 0.50-0.90 [facility] Comment on above: Performed By: #### B UNCRT #### [facility] [address] [place] [address] Stone Repairer: Xavier Cuevas MD GFR/1.73 sq M.predicted among non-blacks MDRD (S/P/Bld) [Vol rate/Area] 84 mL/min/{1.73_m2} Normal >60 [facility] Comment [...] secretion. Performed By: #### B UNCRT #### [facility] [address] [place] [address] Stone Repairer: Xavier Cuevas MD Urea nitrogen [Mass/Vol] 24 mg/dL High 8- [facility] Comment on above: Performed By: #### B UNCRT #### [facility] [address] [place] [address] Stone Repairer: Xavier Cuevas MD CT UROGRAMon 07-09-2024 CT [...] Jay Macias MD 07/09/24 Final result Normal [facility] 36on 06-14-2024 36 Pt informed, she told me she will be looking for new heart doctor as she is not happy with us. Normal [facility] Cult,Urineon 06-09-2024 Cult,Urine Specimen Description .CLEAN CATCH URINE Special Requests Site: Urine Culture NO SIGNIFICANT GROWTH Report Status FINAL 06/09/2024 Normal [facility] Comment on above: Performed By: #### U RC #### [facility] [address] [place], [place] [id number] Stone Repairer: Richard Farias MD [facility] [address] [place] [address] Stone Repairer: Xavier Cuevas MD Urinalysis w/ Microon 2023 Bacteria TRACE Abnormal NONE [facility] Comment on above: Performed By: #### U AMIC #### [address] [place] [address] Stone Repairer: Xavier Cuevas MD Bilirubin, SemiQt,Ur MODERATE Abnormal NEG [facility] Comment on above: Performed By: #### U AMIC #### [facility] [address] [place] [address] Stone Repairer: Xavier Cuevas MD Blood, Urine Negative Normal NEG [facility] Comment on above: Performed By: #### U AMIC #### [address] [place], [place] [address] Stone Repairer: Xavier Cuevas MD Casts 2 TO 5 Normal [facility] Comment on above: Result Comment: HYAL INE Performed By: #### U AMIC #### [facility] [address] [place] [address] [place] [address] Stone Repairer: Xavier Cuevas MD Clarity (U) Clear Normal CLEAR [facility] Comment on above: Performed By: #### U AMIC #### [facility] [address] [place] [address] Stone Repairer: Xavier Cuevas MD Color (U) Cascade Abnormal YEL [facility] Comment on above: Performed By: #### U AMIC #### [facility] [address] [place], [place] [phone] Stone Repairer: Xavier Cuevas MD Crystals LM Nom (Urine sed) 10 TO 20 Abnormal NONE [facility] Comment on above: Result Comment: CALC IUM OXALATE Performed By: #### U AMIC #### [facility] [address] [place] [address] Stone Repairer: Xavier Cuevas MD Epithelial cells LM Ql (Urine sed) 2 TO 5 Normal 0-25 [facility] Comment on above: Performed By: #### U AMIC #### [facility] [address] [place], [place] [phone] Stone Repairer: Xavier Cuevas MD Epithelial, Renal 0 TO 2 Normal 0 [facility] Comment on above: Performed By: #### U AMIC #### [facility] [address] [place] [address] Dr. [place], [place] [address] Stone Repairer: Xavier Cuevas MD Glucose Ql (U) Negative Normal NEG [facility] Hospital Comment on above: Performed By: #### U AMIC #### [facility] [address] [place] [address] Dr. [place], [place] [address] Stone Repairer: Xavier Cuevas MD Ketones Ql (U) 1+ mg/dL Abnormal NEG [facility] Comment on above: Performed By: #### U AMIC #### [facility] [address] [place], [place] [address] Stone Repairer: Xavier Cuevas MD Leukocyte esterase Test strip Ql (U) TRACE Abnormal NEG [facility] Comment on above: Performed By: #### U AMIC #### [facility] [address] [place], [place] [address] Stone Repairer: Xavier Cuevas MD Nitrite,Ur Positive Abnormal NEG [facility] Comment on above: Performed By: #### U AMIC #### [facility] [address] [place], [place] [phone] Stone Repairer: Xavier Cuevas MD PH,Ur 6.0 Normal 5.0-9.0 [facility] Comment on above: Performed By: #### U AMIC #### [facility] [address] [place] [address] Dr. [place], [place] [address] Stone Repairer: Xavier Cuevas MD Protein Ql (U) 2+ mg/dL Abnormal NEG [facility] Comment on above: Performed By: #### U AMIC #### [facility] [address] [place] [address] Dr[place] [address] Stone Repairer: Xavier Cuevas MD Spec. [place],Ur >1.030 High 1.010-1.020 [facility] Comment on above: Performed By: #### U AMIC #### [facility] [address] [place] [address] Dr. [place], [place] [address] Stone Repairer: Xavier Cuevas MD Urine RBC's 5 TO 10 Normal 0-2 [facility] Comment on above: Performed By: #### U AMIC #### [facility] [address] [place] [address] Dr[place] [phone] Stone Repairer: Xavier Cuevas MD Urine WBC's 5 TO 10 Normal 0-5 [facility] Comment on above: Performed By: #### U AMIC #### [facility] [address] [place] [address] Dr. [place], [place] [phone] Stone Repairer: Xavier Cuevas MD Urobilinogen,Ur ELEVATED Normal 0.0-1.0 [facility] Comment on above: Performed By: #### U AMIC #### [facility] [address] [place] [address] [place] [address] Stone Repairer: Xavier Cuevas MD XR ABDOMEN (KUB) (SINGLE [...] Олег Acosta DO 06/05/24 Final result Normal [facility] HCV Ab IA Qlon 12-11-2023 ANTI HCV W/PCR REFLX Reactive Abnormal NRCT [facility] Comment on above: Result Comment: Supplemental testing for HCV RNA by PCR has been ordered per CDC recommendations. Givkcz-fr-dqjhlx ratio is >=1.00. Performed By: #### T RAIZAR, 03168-4 #### [facility] ([id number]) [address] [place] [address], [address] [place] [address] HCV RNA PAULY+probe Qnon 12-11 HCV RNA QUANT PCR [id number] IU/mL Abnormal Undetected Pro [facility] Comment on above: Result Comment: NOTE Result in log IU/mL is 7.28. ADDITIONAL INFORMATION The quantification range of this assay is 15 to 100,000,000 IU/mL (1.18 log to 8.00 log IU/mL). Testing was performed using the diomedes HCV test ([employer] Test Performed by: [place] [address] Stone Repairer: Raj Bhatti M.D. Ph.D.; CLIA# [id number] Performed By: #### T HYR, 64827-5 #### [facility] ([id number]) [address] [place] [address], [address] [place] [address] THYROID PROFILEon 12-11-2023 Free T4 [Mass/Vol] 1.29 ng/dL Normal 0.61-1.60 [facility] Comment on above: Performed By: #### T HYR, 78047-2 #### [facility] ([id number]) [address] [place] [address] TSH 0.45 uIU/mL Low 0.49-4.67 [facility] Comment on above: Performed By: #### T HYR, 04193-6 #### [facility] ([id number]) [address] [place] [address] Office Visiton 11-17-2023 Follow-up visit [id number] Robyn Thorpe 1955 F Date Provider Department Center 11/17/2023 Julisa-PRANAV TRINIDAD Family History Problem Relation Age of Onset Diabetes Mother Coronary artery disease Mother Hypertension Mother Coronary artery disease Father Hypertension Father Other Father Coronary artery disease Brother Family Status - Relation Status Age at Mother Father Brother Level of Service:89592 DC OFFICE/OUTPATIENT ESTABLISHED LOW MDM 20 MIN Normal [facility] Orders Onlyon 11-17-2023 Orders Only [id number] oRbyn Thorpe 1955 F Date Provider Department Center 11/17/2023 PAT BAL GEE Alejandro Family History Problem Relation Age of Onset Diabetes Mother Coronary artery disease Mother Hypertension Mother Coronary artery disease Father Hypertension Father Other Father Coronary artery disease Brother Family Status - Relation Status Age at Mother Father Brother Normal [facility] 36on 07-03-2023 36 Patient stopped by the office today c/o cough with lisinopril. Can we switch her to losartan? Normal [facility] Orders Onlyon 06-25-2023 Orders Only [id number] Robyn Thorpe 1955 F Date Provider Department Center 06/25/2023 VERONICA BELLO. Family History Problem Relation Age of Onset Diabetes Mother Coronary artery disease Mother Hypertension Mother Coronary artery disease Father Hypertension Father Other Father Coronary artery disease Brother Family Status - Relation Status Age at Mother Father Brother Normal [facility] Basic Metabolic Panelon 03- Anion gap [Moles/Vol] 8 mmol/L Low 9 - 17 mmol/L [facility] Calcium [Mass/Vol] 9.4 mg/dL 8.6 - 10. 4 mg/dL [facility] Chloride [Moles/Vol] 108 mmol/L High 98 - 107 mmol/L [facility] CO2 [Moles/Vol] 25 mmol/L 20 - 31 mmol/L [facility] Creatinine [Mass/Vol] 0.68 mg/dL 0.50 - [...] [Mass ratio] 29 High 9 - 20 [facility] CBC with Auto Differentialon 01-03-2023 Absolute Eos # 0.20 [facility] Absolute Immature Granulocyte 0.03 [facility] Absolute Lymph # 1.05 Low [facility] SECO URS [facility] Absolute Tensas # 0.78 [facility] RS [facility] Basophils (Bld) [#/Vol] 0.04 10*3/uL [facility] Basophils/100 WBC (Bld) 1 % 0 - 2 % [facility] Eosinophils/100 WBC (Bld) 3 % 1 [...] [facility] WBC (Bld) [#/Vol] 6.5 10*3/uL [facility] EKG 12 LeadOrdered By: Enrique Quezada on 01-03-2023 Atrial Rate 64 BPM [facility] Work Phone: P Doerun 75 degrees [facility] Work Phone: P-R Interval 146 ms [facility] Work Phone: Q-T Interval 480 ms [employer] Work Phone: QRS Duration 130 ms [employer] Work Phone: QTc Calculation (Bazett) 495 ms [employer] Work Phone: R Doerun 3 degrees [employer] Work Phone: T Doerun 31 degrees [employer] Work Phone: Ventricular Rate 64 BPM [employer] Work Phone: [employer] Work Phone: EKG 12 Leadon 01-03-2023 Normal sinus rhythm Right bundle branch block Abnormal ECG No previous ECGs available Confirmed by YANELIS QUEZADA ([id number]) on 01/03/2023 11:52:02 PM [facility] RADIOLOGY Yanelis Quezada MD - 01/03/2023 Normal sinus rhythm Right bundle branch block Abnormal ECG No previous ECGs available Confirmed by YANELIS QUEZADA ([id number]) on 01/03/2023 11:52:02 PM [employer] Work Phone: BUN & Creatinineon 3 Creatinine [Mass/Vol] 0.78 mg/dL 0.50 - 0.90 mg/dL [employer] GFR/1.73 sq M.predicted MDRD (S/P/Bld) [Vol rate/Area] - PINF [employer] Comment on above: These results are not [...] [Mass/Vol] 22 mg/dL 8 - 23 mg/dL [employer] [facility] [employer] CT UROGRAMon 12-26-2022 1. Bilateral nonobstructing nephroliths larger on the right side of 6.5 mm. No ureteric obstruction. 2. Mild hepatic steatosis. Granulomas in liver and spleen. 3. Atherosclerotic disease. 4. Postsurgical changes lower lumbar spine. Other findings as above. [facility] EXAMINATION: CT UROGRAM 12/26/2022 1:23 pm TECHNIQUE: [...] acute osseous or subcutaneous soft tissue abnormality. [facility] Katelyn Aceves MD - 12/26/2022 [...] lower lumbar spine. Other findings as above. [employer] Work Phone: Radiology Study observation (narrative) [employer] Work Phone: CT UROGRAMOrdered By: Katelyn wilkes on 12-26-2022 [employer] Work Phone: Urinalysis with Microscopico n 12-12-2022 Bacteria, UA 2+ Abnormal None [employer] Bilirubin Urine Negative NEGATIVE [employer] Color, UA Yellow Yellow [employer] Epithelial Cells UA 2 TO 5 [facility] S [employer] Glucose Auto test strip (U) [Mass/Vol] Negative NEGATIVE [employer] Interpretation and review of laboratory results Abnormal [employer] Ketones (U) [Mass/Vol] TRACE Abnormal NEGATIVE [employer] Leukocyte esterase Auto test strip Ql (U) Negative NEGATIVE [employer] Mucus, UA 1+ Abnormal None [employer] Nitrite Auto test strip Ql (U) Negative NEGATIVE [facility] Protein (U) [Mass/Vol] 6.0 mg/dL 5.0 - 9.0 [facility] Protein (U) [Mass/Vol] 1+ Abnormal NEGATIVE [facility] RBC clumps Auto (Urine sed) [#/Area] 5 TO 10 [facility] Specific [place], UA 1.025 High 1.010 - 1.020 [facility] Turbidity UA Clear Clear [facility] Urine Hgb TRACE Abnormal NEGATIVE [facility] Urobilinogen, Urine Normal Normal [facility] S [facility] WBC, UA 0 TO 2 [facility] XR RIBS LT PA Sophia 3 XR RIBS LT PA CH EXAM: XR RIBS LT PA CH HISTORY: Rib pain COMPARISON: 05/28/2022 TECHNIQUE: Four views of the left ribs. FINDINGS: No rib fracture indentified. The lungs are clear. IMPRESSION: 1. No acute rib fracture identified. Electronically authenticated by: JANEEN POOLE Date: 2022-12-03 10:28 Normal [facility] MRI BRAIN WO W CONon 023 MRI [...] Date: 2022-10-22 13:55 Normal [facility] CREATININEon 10-21-2022 Creatinine [Mass/Vol] 0.94 mg/dL Normal 0.55-1.02 [facility] Comment on above: Performed By: #### C HUGH ####[facility] [address] [place] [address]Dr. Tapan Gordon EGFR-AF DOMINICAN >60 Normal >=60 [facility] Comment on above: Performed By: #### C HUGH ####[facility] [address] [place], [place] [address]Mh. Tapan Gordon EGFR-NON AF DOMINICAN =60 Normal >=60 [facility] Comment on above: Performed By: #### C HUGH ####[facility] [address] [place] [address]Dr. Tapan Gordon MG MAMM SCREEN 3D NICKOLAS CADon 08-13-2022 MG MAMM SCREEN 3D NICKOLAS CAD Patient: ROBYN THORPE Exam Date: 08/13/2022 : 1955 Gender:F Ordering : JAIRO DALEY Admission #: [id number] Family : Order #: [id number] CLICK HERE TO VIEW EXAM RADIOLOGY REPORT [...] at age 65. LOCATION: [facility] BREAST COMPOSITION: Scattered areas fibroglandular density. FINDINGS: [...] LUMP SHOULD BE BIOPSIED. Dictated by: Xavier Hollingsworth MD on 08/14/2022 at 07:56 Approved by: Xavier Hollingsworth MD on 08/14/2022 at 07:58 Normal [facility] XR DEXA BONE DENSITYon 08-13 XR DEXA [...] by: YANELIS ENGEL Date: 2022-08-13 16:[address] [facility] [address] ABD/PELVIS WO CONon 08-07 CT ABD/PELVIS [...] by: YANELIS ENGEL Date: 2022-08-07 18:50 Normal [facility] ECHOCARDIO M/2D COMPLETEon 0 06-26-2022 ECHOCARDIO M/2D COMPLETE Patient: ROBYN THORPE Exam Date: 06/26/2022 : 1955 Gender:F Ordering : DR PRANAV TRINIDAD M.D. Admission #: [id number] Family : JAIRO DALEY Order #: [id number] CLICK HERE TO VIEW EXAM ECHOCARDIOGRAM REPORT [...] 06/26/2022 at 18:22 Normal [facility] AMYLASEon 06-19-2022 Amylase [Catalytic activity/Vol] 48 U/L Normal 25-115 [facility] Comment on above: Performed By: #### C MP, YASH, LIPA ####[facility] [address] [place] [address]Dr. Malikapalma Gordon CBC AUTO DIFFon 06-19-2022 BASO # 0.0 103/ul Normal 0.0-0.1 [facility] Comment on above: Performed By: #### C BC ####[facility] [address] [place] [address]Dr. Tapan Gordon Basophils/100 WBC (Bld) 0.5 % Normal 0.2-2.0 [facility] Comment on above: Performed By: #### C BC ####[facility] [address] [place] [address]Dr. Tapan Gordon EO # 0.2 103/ul Normal 0.0-0.7 [facility] Comment on above: Performed By: #### C BC ####[facility] [address] [place] [address]Dr. Malikapalma Gordon Eosinophils/100 WBC (Bld) 2.4 % Normal 0.9-7.0 [facility] Comment on above: Performed By: #### C BC ####[facility] [address] [place] [address]Dr. Tapna Gordon Erythrocyte distribution width (RBC) [Ratio] 13.0 % Normal 11.0-15.0 [facility] Comment on above: Performed By: #### C BC ####[facility] [address] [place] [address]Dr. Tapan Gordon Hematocrit (Bld) [Volume fraction] 43.6 % Normal 36.0-48.0 [facility] Comment on above: Performed By: #### C BC ####[facility] [address] [place] [address]Dr. Tapan Gordon Hemoglobin (Bld) [Mass/Vol] 14.6 g/dL Normal 12.0-16.0 [facility] Comment on above: Performed By: #### C BC ####[facility] [address] [place], [place] [address]Dr. Tapan Gordon IG # 0.02 10e3/ul Normal 0.00-0.03 [facility] Comment on above: Performed By: #### C BC ####[facility] [address] [place], [place] [address]Dr. Tapan Gordon IG % 0.3 % Normal 0.0-0.5 [facility] Comment on above: Performed By: #### C BC ####[facility] [address] [place] [address]Dr. Tapan Gordon LYMPH # 1.5 103/ul Normal 1.2-3.8 [facility] Comment on above: Performed By: #### C BC ####[facility] [address] [place] [address]Dr. Tapan Gordon Lymphocytes/100 WBC (Bld) 23.4 % Normal 20.5-60.0 [facility] Comment on above: Performed By: #### C BC ####[facility] [address] [place] [address]Dr. Tapan Gordon MANUAL DIFF REQ NO Normal [facility] Comment on above: Performed By: #### C BC ####[facility] [address] [place] [address]Dr. Tapan Gordon MCH (RBC) [Entitic mass] 29.5 pg Normal 26.7-34.0 [facility] Comment on above: Performed By: #### C BC ####[facility] [address] [place] [address]Dr. Tapan Gordon MCHC (RBC) [Mass/Vol] 33.5 g/dL Normal 29.9-35.2 [facility] Comment on above: Performed By: #### C BC ####[facility] [address] [place] [address]Dr. Tapan Evan MCV (RBC) [Entitic vol] 88.1 fL Normal 81.0-99.0 [facility] Comment on above: Performed By: #### C BC ####[facility] [address] [place], [place] [address]Dr. Tapan Gordon MONO # 0.6 103/ul Normal 0.3-0.8 [facility] Comment on above: Performed By: #### C BC ####[facility] [address] [place] [address]Dr. Malikapalma Gordon Monocytes/100 WBC (Bld) 9.8 % Normal 1.7-12.0 [facility] Comment on above: Performed By: #### C BC ####[facility] [address] [place], [place] [address]Dr. Malikapalma Gordon NEUT # 4.0 103/ul Normal 1.4-6.5 [facility] Comment on above: Performed By: #### C BC ####[facility] [address] [place], [place] [address]Dr. Tapan Gordon Neutrophils/100 WBC (Bld) 63.6 % Normal 43.0-75.0 [facility] Comment on above: Performed By: #### C BC ####[facility] [address] [place], [place] [address]Dr. Tapan Gordon Platelet mean volume (Bld) [Entitic vol] 10.3 fL Normal 9.5-13.5 [facility] Comment on above: Performed By: #### C BC ####[facility] [address] [place], [place] [address]Aw. Tapan Gordon PLT 258 103/ul Normal 150-450 [facility] Comment on above: Performed By: #### C BC ####[facility] [address] [place], [place] [address]St. Tapan Gordon RBC 4.95 106/ul Normal 4.20-5.40 [facility] Comment on above: Performed By: #### C BC ####[facility] [address] [place], [place] [address]Qp. Tapan Gordon WBC 6.3 103/ul Normal 4.0-11.0 [facility] Comment on above: Performed By: #### C BC ####[facility] [address] [place], [place] [address]Hq. T[address] CT ABD/PELVIS WO CONon 06-19 [...] Date: 2022-06-19 10:13 Normal [facility] ER URINE PROFILEon 2 Bilirubin Ql (U) Negative Normal NEGATIVE [facility] Comment on above: Performed By: #### U MICRO, ERUR #### [facility] [address] [place] [address] [address] Tapan Gordon Clarity (U) CLEAR Normal CLEAR [facility] Comment on above: Performed By: #### U MICRO, ERUR #### [facility] [address] [address] [address] Tapan Gordon Color (U) LT. YELLOW Normal YELLOW [facility] Comment on above: Performed By: #### U MICRO, ERUR #### [facility] [address] [place] [address] Dr. Tapan BARONEAHD A micrscopic examination will be performed if indicated. Normal [facility] Comment on above: Performed By: #### U MICRO, ERUR #### [facility] [address] [address] [address] Tapan Gordon Glucose Ql (U) Negative Normal NEGATIVE [facility] Comment on above: Performed By: #### U MICRO, ERUR #### [facility] [address] [address] [address] Tapan Gordon Hemoglobin Ql (U) LARGE Abnormal NEGATIVE [facility] Comment on above: Performed By: #### U MICRO, ERUR #### [facility] [address] [address] [address] Tapan Gordon Ketones Ql (U) Negative Normal NEGATIVE [facility] Comment on above: Performed By: #### U MICRO, ERUR #### [facility] [address] [address] [address] Tapan Gordon LEUKOCYTES Negative Normal NEGATIVE [facility] Comment on above: Performed By: #### U MICRO, ERUR #### [facility] [address] [address] [address] Tapan Gordon Nitrite Ql (U) Negative Normal NEGATIVE [facility] Comment on above: Performed By: #### U MICRO, ERUR #### [facility] [address] [address] [address] Tapan Gordon pH (U) 7.0 [pH] Normal 5-9 [facility] Comment on above: Performed By: #### U MICRO, ERUR #### [facility] [address] [address] [address] Tapan Gordon SPEC GRAVITY 1.015 Normal 1.005-<=1.025 [facility] Comment on above: Performed By: #### U MICRO, ERUR #### [facility] [address] [place] [address] Dr. Tapan Gordon UA PROTEIN TRACE Normal NEGATIVE/ TRACE [facility] Comment on above: Performed By: #### U MICRO, ERUR #### [facility] [address] [place] [address] Dr. Tapan Gordon UR MICRO IND INDICATED Normal [facility] Comment on above: Performed By: #### U MICRO, ERUR #### [facility] [address] [place] [address] Dr. Tapan Gordon Urobilinogen Qn (U) 2.0 {Aleida'U}/dL Abnormal 0.2 - 1. 0 [facility] Comment on above: Performed By: #### U MICRO, ERUR #### [facility] [address] [address] [address] Tapan Gordon LIPASEon 06-19-2022 Lipase [Catalytic activity/Vol] 182.0 U/L Normal 73.0-393.0 [facility] Comment on above: Performed By: #### C MP, YASH, LIPA ####[facility] [address] [address]Dr. Tapan Gordon OCC BLD IMMUNO SCREENon 05-22 OCCULT BLOOD Negative Normal NEGATIVE [facility] Comment on above: Performed By: #### O BSCRN ####[facility] [address] [address]Dr. Tapan Gordon PROF 14(COMP METB)on 022 Albumin [Mass/Vol] 3.5 g/dL Normal 3.4-5.0 [facility] Comment on above: Performed By: #### C YASH COLLINS LIPA ####[facility] [address] [address]Dr. Tapan Gordon Albumin/Globulin [Mass ratio] 1.0 {ratio} Normal [facility] Comment on above: Performed By: #### C YASH COLLINS LIPA ####[facility] [address] [place], [place] [address]Dr. Tapan Gordon ALP [Catalytic activity/Vol] 76 U/L Normal 46-116 [facility] Comment on above: Performed By: #### C YASH COLLINS LIPA ####[facility] [address] [address]Dr. Tapan Gordon ALT [Catalytic activity/Vol] 64 U/L Critically high 14-59 [facility] Comment on above: Performed By: #### C YASH COLLINS, LIPA ####[facility] [address] [address]Dr. Tapan Gordon Anion gap [Moles/Vol] 11.2 mmol/L Normal [facility] Comment on above: Performed By: #### C YASH COLLINS, LIPA ####[facility] [address] [address]Dr. Tapan Gordon AST [Catalytic activity/Vol] 38 U/L Critically high 15-37 [facility] Comment on above: Performed By: #### C YASH COLLINS, LIPA ####[facility] [address] [address]Dr. Tapan Gordon Bilirubin [Mass/Vol] 0.7 mg/dL Normal 0.2-1.0 [facility] Comment on above: Performed By: #### C KARINA YASH, LIPA ####[facility] [address] [place], [place] [address]Dr. Tapan Gordon Calcium [Mass/Vol] 8.7 mg/dL Normal 8.5-10.1 [facility] Comment on above: Performed By: #### C MP, YASH, LIPA ####[facility] [address] [address]Dr. Tapan Gordon Chloride [Moles/Vol] 104 mmol/L Normal 98-107 [facility] Comment on above: Performed By: #### C MP, YASH, LIPA ####[facility] [address] [address]Dr. Tapan Gordon CO2 [Moles/Vol] 29.6 mmol/L Normal 21.0-32.0 [facility] Comment on above: Performed By: #### C MP, YASH, LIPA ####[facility] [address] [place], [place] [address]Dr. Tapan Gordon Creatinine [Mass/Vol] 0.85 mg/dL Normal 0.55-1.02 [facility] Comment on above: Performed By: #### C MP, YASH, LIPA ####[facility] [address] [place], [place] [address]Dr. Tapan Gordon EGFR-AF DOMINICAN >60 Normal >=60 [facility] Comment on above: Performed By: #### C MP, YASH, LIPA ####[facility] [address] [place], [place] [address]Dr. Tapan Gordon EGFR-NON AF DOMINICAN >60 Normal >=60 [facility] Comment on above: Performed By: #### C MP, YASH, LIPA ####[facility] [address] [place], [place] [address]Dr. Tapan Gordon Globulin (S) [Mass/Vol] 3.6 g/dL Normal [facility] Comment on above: Performed By: #### C MP, YASH, LIPA ####[facility] [address] [place], [place] [address]Dr. Tapan Gordon Glucose [Mass/Vol] 125 mg/dL Critically high 74-106 [facility] Comment on above: Performed By: #### C MP, YASH, LIPA ####[facility] [address] [place], [place] [address]Dr. Tapan Gordon Potassium [Moles/Vol] 3.8 mmol/L Normal 3.5-5.1 [facility] Comment on above: Performed By: #### C YASH COLLINS LIPA ####[facility] [address] [address]Dr. Tapan Gordon Protein [Mass/Vol] 7.1 g/dL Normal 6.4-8.2 [facility] Comment on above: Performed By: #### C YASH COLLINS LIPA ####[facility] [address] [address]Dr. Tapan Gordon Sodium [Moles/Vol] 141 mmol/L Normal 136-145 [facility] Comment on above: Performed By: #### C YASH COLLINS LIPA ####[facility] [address] [address]Dr. Tapan Gordon Urea nitrogen [Mass/Vol] 22.0 mg/dL Critically high 7.0-18.0 [facility] Comment on above: Performed By: #### C YASH COLLINS LIPA ####[facility] [address] [address]Dr. Tapan Gordon Urea nitrogen/Creatinine [Mass ratio] 25.9 mg/mg Normal [facility] Comment on above: Performed By: #### C YASH COLLINS LIPA ####[facility] [address] [address]Dr. Tapan Gordon URINE MICROSCOPIC ONLYon BACTERIA TRACE Abnormal NONE SEEN [facility] Comment on above: Performed By: #### U MICRO, ERUR #### [facility] [address] [place] [address] Dr. Tapan Gordon Bacteria identified Cx Nom (U) NOT INDICATED Normal [facility] Comment on above: Performed By: #### U MICRO, ERUR #### [facility] [address] [place] [address] Dr. Tapan Gordon CAST NONE SEEN Normal NONE SEEN [facility] Comment on above: Performed By: #### U MICRO, ERUR #### [facility] [address] [place] [address] Dr. Tapan Gordon Crystals LM Nom (Urine sed) NONE SEEN Normal NONE SEEN [facility] Comment on above: Performed By: #### U MICRO, ERUR #### [facility] [address] [place] [address] Dr. Tapan Gordon Epithelial cells LM Ql (Urine sed) FEW Abnormal NONE SEEN /RARE [facility] Comment on above: Performed By: #### U MICRO, ERUR #### [facility] [address] [place] [address] Dr. Tapan Gordon MUCOUS NONE SEEN Normal NONE SEEN [facility] Comment on above: Performed By: #### U MICRO, ERUR #### [facility] [address] [place] [address] Dr. Tapan Gordon RBC 20-50 Abnormal 0-2 [facility] Comment on above: Performed By: #### U MICRO, ERUR #### [facility] [address] [place] [address] Dr. Tapan Gordon WBC NONE SEEN Normal NONE SEEN [facility] Comment on above: Performed By: #### U MICRO, ERUR #### [facility] [address] [place] [address] LUNG CANCER SCREENINGon [...] in 12 months. Electronically authenticated by: XAVIER HOLLINGSWORTH Date: 2022-05-29 07:22 Normal [facility] Vital Signs Date Time Vital Sign Value Performing Clinician Facility 11-03-2024 12:58-0500 Body height 160 cm Jairo Daley APRN-INTERNET CAFE MANAGER Work Phone: [facility] 11-03-2024 12:58-0500 Body mass index (BMI) [Ratio] 36.28 kg/m2 Jairo Daley PATIENT INSURANCE CLERK-INTERNET CAFE MANAGER Work Phone: [facility] 11-03-2024 12:58-0500 Body temperature 97.59 [degF] Jairo Daley APRN-INTERNET CAFE MANAGER Work Phone: [facility] 11-03-2024 12:58-0500 Body weight 92.9 kg Jairo Daley APRN-INTERNET CAFE MANAGER Work Phone: [facility] 11-03-2024 12:58-0500 Diastolic blood pressure 88 mm[Hg] Jairo Daley APRN-INTERNET CAFE MANAGER Work Phone: [facility] 11-03-2024 12:58-0500 Heart rate 61 /min Jairo Daley APRN-INTERNET CAFE MANAGER Work Phone: [facility] 11-03-2024 12:58-0500 Respiratory rate 18 /min Jairo Daley APRN-INTERNET CAFE MANAGER Work Phone: [facility] 11-03-2024 12:58-0500 SaO2% (BldA) [Mass fraction] 94 % Jairo Daley APRN-INTERNET CAFE MANAGER Work Phone: [facility] 11-03-2024 12:58-0500 Systolic blood pressure 160 mm[Hg] Jairo Daley PATIENT INSURANCE CLERK-INTERNET CAFE MANAGER Work Phone: [facility] 09-13-2024 14:20-0500 Body height 160 cm Jairo Daley APRN-INTERNET CAFE MANAGER Work Phone: [facility] 09-13-2024 14:20-0500 Body mass index (BMI) [Ratio] 36 kg/m2 Jairo Daley APRN-INTERNET CAFE MANAGER Work Phone: [facility] 09-13-2024 14:20-0500 Body temperature 97.9 [degF] Jairo Daley APRN-INTERNET CAFE MANAGER Work Phone: [facility] 09-13-2024 14:20-0500 Body weight 92.17 kg Jairo Daley APRN-INTERNET CAFE MANAGER Work Phone: [facility] 09-13-2024 14:20-0500 Diastolic blood pressure 80 mm[Hg] Jairo Daley APRN-INTERNET CAFE MANAGER Work Phone: [facility] 09-13-2024 14:20-0500 Heart rate 67 /min Jairo Daley APRN-INTERNET CAFE MANAGER Work Phone: [facility] 09-13-2024 14:20-0500 Respiratory rate 18 /min Jairo Daley APRN-INTERNET CAFE MANAGER Work Phone: [facility] 09-13-2024 14:20-0500 SaO2% (BldA) [Mass fraction] 91 % Jairo Daley APRN-INTERNET CAFE MANAGER Work Phone: [facility] 09-13-2024 14:20-0500 Systolic blood pressure 140 mm[Hg] Jairo Daley APRN-INTERNET CAFE MANAGER Work Phone: [facility] 08-10-2024 08:15-0400 Body height 160 cm Jairo Daley APRN-INTERNET CAFE MANAGER Work Phone: [facility] 08-10-2024 08:15-0400 Body mass index (BMI) [Ratio] 36.6 kg/m2 Jairo Daley PATIENT INSURANCE CLERK-INTERNET CAFE MANAGER Work Phone: [facility] 08-10-2024 08:15-0400 Body temperature 97.5 [degF] Jairo Daley PATIENT INSURANCE CLERK-INTERNET CAFE MANAGER Work Phone: [facility] 08-10-2024 08:15-0400 Body weight 93.71 kg Jairo Daley PATIENT INSURANCE CLERK-INTERNET CAFE MANAGER Work Phone: [facility] 08-10-2024 08:15-0400 Diastolic blood pressure 86 mm[Hg] Jairo Daley PATIENT INSURANCE CLERK-INTERNET CAFE MANAGER Work Phone: [facility] 08-10-2024 08:15-0400 Heart rate 64 /min Jairo Daley PATIENT INSURANCE CLERK-INTERNET CAFE MANAGER Work Phone: [facility] 08-10-2024 08:15-0400 Respiratory rate 18 /min Jairo Daley PATIENT INSURANCE CLERK-INTERNET CAFE MANAGER Work Phone: [facility] 08-10-2024 08:15-0400 SaO2% (BldA) [Mass fraction] 92 % Jairo Daley PATIENT INSURANCE CLERK-INTERNET CAFE MANAGER Work Phone: [facility] 08-10-2024 08:15-0400 Systolic blood pressure 138 mm[Hg] Jairo Daley PATIENT INSURANCE CLERK-INTERNET CAFE MANAGER Work Phone: [facility] 07-21-2024 09:40-0400 Diastolic blood pressure 78 mm[Hg] DENTAL DIRECTOR-C Jairo Daley Work Phone: [facility] 07-21-2024 09:40-0400 Heart rate 72 /min DENTAL DIRECTOR-C Jairo Daley Work Phone: [facility] 07-21-2024 09:40-0400 Respiratory rate 20 /min DENTAL DIRECTOR-C Jairo Daley Work Phone: [facility] 07-21-2024 09:40-0400 SaO2% (BldA) [Mass fraction] 98 % DENTAL DIRECTOR-C Jairo Daley Work Phone: [facility] 07-21-2024 09:40-0400 Systolic blood pressure 138 mm[Hg] DENTAL DIRECTOR-C Jairo Daley Work Phone: [facility] 07-21-2024 06:51-0400 Body height 157.48 cm DENTAL DIRECTOR-C Jairo Daley Work Phone: [facility] 07-21-2024 06:51-0400 Body weight 92.98 kg DENTAL DIRECTOR-C Jairo Daley Work Phone: [facility] 07-08-2024 12:09-0400 Body height 161.3 cm Cristobal Owens DPM Work Phone: [facility] 07-08-2024 12:09-0400 Body mass index (BMI) [Ratio] 35.22 kg/m2 Cristobal Owens DPM Work Phone: [facility] 07-08-2024 12:09-0400 Body weight 91.63 kg Cristobal Owens DPM Work Phone: [facility] 07-08-2024 12:09-0400 Diastolic blood pressure 80 mm[Hg] Cristobal Owens DPM Work Phone: [facility] 07-08-2024 12:09-0400 Heart rate 74 /min Cristobal Owens DPM Work Phone: [facility] 07-08-2024 12:09-0400 Respiratory rate 18 /min Cristobal Owens DPM Work Phone: [facility] 07-08-2024 12:09-0400 Systolic blood pressure 130 mm[Hg] Cristobal Owens DPM Work Phone: [facility] 12-04-2023 15:54-0500 Body height 161.3 cm Cristobal Owens DPM Work Phone: [facility] 12-04-2023 15:54-0500 Body mass index (BMI) [Ratio] 35.22 kg/m2 Cristobal Owens DPM Work Phone: [facility] 12-04-2023 15:54-0500 Body weight 91.63 kg Cristobal Owens DPM Work Phone: [facility] 12-04-2023 15:54-0500 Diastolic blood pressure 81 mm[Hg] Cristobal Owens DPM Work Phone: [facility] 12-04-2023 15:54-0500 Heart rate 88 /min Cristobal Owens DPM Work Phone: [facility] 12-04-2023 15:54-0500 Systolic blood pressure 131 mm[Hg] Cristobal Owens DPM Work Phone: [facility] Healthcare Encounters Encounter Date Encounter Type Care Provider Facility Start: 11-03-2024 End: 11-03-2024 Office outpatient visit 15 minutes Jairo Daley PATIENT INSURANCE CLERK-INTERNET CAFE MANAGER Work Phone: [facility] Comment on above: Benign essential HTN (Primary Dx); Obesity, morbid ([facility]) Start: 11-03-2024 End: 11-03-2024 ambulatory [facility] Start: 10-21-2024 End: 11-01-2024 Telephone encounter Isidra Alexis CMA [facility] Start: 10-06-2024 End: 10-06-2024 ambulatory [facility] Start: 09-13-2024 End: 09-13-2024 Patient encounter procedure Jairo Rick Daley PATIENT INSURANCE CLERK-INTERNET CAFE MANAGER Work Phone: [facility] Comment on above: Medicare annual well ness visit, subsequent (Primary Dx); COPD exacerbation ([facility]) Start: 09-13-2024 End: 09-13-2024 ambulatory [facility] Start: 08-10-2024 End: 08-10-2024 Office outpatient visit 25 minutes Jairo Daley PATIENT INSURANCE CLERK-INTERNET CAFE MANAGER Work Phone: [facility] Comment on above: Fibromyalgia (Primar y Dx); Need for influenza vaccination; Arthritis, multiple joint involvement; Anxiety and depression; Acquired hypothyroidism; Benign essential HTN; Primary insomnia; Chronic bronchitis with emphysema (CMS-HCC); Mixed hyperlipidemia; Screening for diabetes mellitus (DM) Start: 08-10-2024 End: 08-10-2024 ambulatory JAIRO DALEY [facility] Start: 07-21-2024 Non-patient / Non-visit LINDA Daley Work Phone: [facility] Work Phone: Start: 07-21-2024 End: 07-21-2024 Admission to same day surgery center DENTAL DIRECTOR-Tika Daley Work Phone: [facility] Work Phone: Start: 07-21-2024 End: 07-21-2024 ambulatory JACOBTika Daley Work Phone: [facility] Work Phone: Start: 07-09-2024 End: 07-09-2024 Subsequent hospital visit by physician Jairo Daley PATIENT INSURANCE CLERK - INTERNET CAFE MANAGER Work Phone: [facility] Comment on above: Microscopic hematuri a Start: 07-09-2024 End: 07-11-2024 [facility] Start: 07-08-2024 End: 07-08-2024 Bamboo flowsheet Cristobal Owens DPM Work Phone: [facility] Start: 07-08-2024 End: 07-08-2024 Bamboo flowsheet Cristobal Owens DPM Work Phone: [facility] Start: 07-08-2024 End: 07-08-2024 Office outpatient visit 15 minutes Cristobal Owens DPM Work Phone: [facility] Comment on above: Peroneal tendon tear , right, initial encounter (Primary Dx); Onychomycosis; Toe pain, bilateral Start: 07-08-2024 End: 07-08-2024 ambulatory CRISTOBAL OWENS Not Available Start: 06-08-2024 End: 06-08-2024 ambulatory BO DARLING [facility] Start: 06-02-2024 End: 06-04-2024 ambulatory JASON DOMINGUEZ [facility] Start: 04-29-2024 End: 04-29-2024 ambulatory CRISTOBAL OWENS Not Available Start: 04-26-2024 Non-patient / Non-visit DENTAL DIRECTOR-C Jairo Daley Work Phone: [facility] Work Phone: Start: 04-12-2024 End: 04-12-2024 ambulatory [facility] Start: 03-11-2024 End: 03-11-2024 ambulatory CRISTOBAL OWENS Not Available Start: 02-19-2024 End: 02-19-2024 ambulatory CRISTOBAL OWENS Not Available Start: 01-15-2024 Refill Isidra Vanesa [facility] Comment on above: Chronic bronchitis w ith emphysema; Arthritis, multiple joint involvement; Anxiety and depression; Fibromyalgia; Acquired hypothyroidism; Benign essential HTN; Primary insomnia; History of kidney stones Start: 01-13-2024 Refill Isidra Vanesa [facility] Comment on above: Chronic bronchitis w ith emphysema; Arthritis, multiple joint involvement; Anxiety and depression; Fibromyalgia; Acquired hypothyroidism; Benign essential HTN; Primary insomnia Start: 12-11-2023 End: 12-12-2023 ambulatory [facility] Start: 12-11-2023 End: 12-11-2023 ambulatory [facility] Start: 12-04-2023 End: 12-04-2023 Office outpatient new 30 minutes Cristobal Owens DPM Work Phone: [facility] Comment on above: DJD (degenerative khurram int disease), ankle and foot, right (Primary Dx); Other specified disorders of synovium, right ankle and foot; Onychomycosis; Toe pain, bilateral Start: 12-04-2023 End: 12-04-2023 ambulatory CRISTOBAL OWENS Not Available Start: 12-04-2023 Chart abstracting Cristobal greer DP Work Phone: [facility] Start: 11-17-2023 Telephone encounter Flosinaiirene Connell [facility] Start: 11-17-2023 End: 11-17-2023 [facility] Start: 01-03-2023 End: 01-03-2023 Patient encounter status Jairo Daley APRN - INTERNET CAFE MANAGER Work Phone: [facility] Start: 01-03-2023 End: 01-03-2023 Subsequent hospital visit by physician Jairo Daley APRN - INTERNET CAFE MANAGER Work Phone: [facility] Comment on above: Renal calculus; Pre-op testing Start: 12-26-2022 End: 12-28-2022 Subsequent hospital visit by physician [facility] Scan Room [facility] Comment on above: Renal calculus; Gross hematuria Start: 12-12-2022 End: 12-12-2022 Subsequent hospital visit by physician Jairo Britt INTERNET CAFE MANAGER Work Phone: [facility] Comment on above: Renal calculus; Gross hematuria Start: 12-03-2022 End: 12-03-2022 ambulatory JANEEN POOLE Facility:[facility] Start: 10-21-2022 End: 10-22-[address] EULALIO MENESES Facility:[facility] Start: 09-11-2022 End: 09-22-2022 Emergency department patient visit RANDAL ORTIZ Facility:[facility] Start: 08-13-2022 End: 08-14-[address] XAVIER HOLLINGSWORTH Facility:[facility] Start: 08-07-2022 End: 08-08-[address] YANELIS ENGEL Facility:[facility] Start: 07-03-2022 End: 07-04-[address] YANELIS ENGEL Facility:[facility] Start: 06-26-2022 End: 06-27-[address] PRANAV TRINIDAD Facility:[facility] Start: 06-19-2022 End: 06-19-2022 ambulatory BRAULIO LASSITER Facility:[facility] Start: 05-28-2022 End: 05-29-[address] XAVIER HOLLINGSWORTH Facility:[facility] Start: 04-03-2022 End: 04-04-[address] YANELIS ENGEL Facility:[facility] Start: 03-08-2022 End: 03-08-[address] YANELIS ENGEL Facility:[facility] Procedures Date Procedure Procedure Detail Performing Clinician Start: 09-13-2024 Adult depression scr eening assessment Jairo Daley PATIENT INSURANCE CLERK-INTERNET CAFE MANAGER Work Phone: Start: 07-21-2024 Screening colonoscopy N P-C Jairo Daley Work Phone: Start: 07-09-2024 Assay of urea nitrog en quantitative Bo Zhanna Brennaell PATIENT INSURANCE CLERK - INTERNET CAFE MANAGER Work Phone: Start: 04-12-2024 Adult depression scr eening assessment Jairo Daley PATIENT INSURANCE CLERK-INTERNET CAFE MANAGER Work Phone: Start: 12-11-2023 Adult depression scr eening assessment Isidra Vanesa CHIEF MERCHANDISING OFFICER Start: 08-20-2023 Adult depression scr eening assessment Adysan Sleek CHIEF MERCHANDISING OFFICER Start: 01-03-2023 Ecg routine ecg w/le ast 12 lds w/i&r Bo Chao Brennaell PATIENT INSURANCE CLERK - INTERNET CAFE MANAGER Work Phone: Start: 01-03-2023 Basic metabolic pane l calcium total Bo Chao Wayne PATIENT INSURANCE CLERK - INTERNET CAFE MANAGER Work Phone: Start: 12-26-2022 Ct abdomen & pelvis w/o contrst 1/> body re Jason Dominguez MD Work Phone: Start: 12-26-2022 Assay of urea nitrog en quantitative Jason Dominguez MD Work Phone: Start: 12-12-2022 Urnls dip stick/tabl et reagent auto microscopy Jason Dominguez MD Work Phone: Start: 08-13-2022 Mammography Adysan Sle ek CHIEF MERCHANDISING OFFICER Plan of Treatment Date Care Activity Detail Author Start: 11-03-2025 Adult BMI Screening Adult BMI Screen ing [facility] Start: 11-03-2025 [facility] Start: 10-06-2025 Adult BMI Follow Up Plan Adult BMI F ollow Up Plan [facility] Start: 10-06-2025 Adult BMI Screening Adult BMI Screen ing [facility] Start: 10-06-2025 [facility] Start: 09-13-2025 Adult [facility] Start: 09-13-2025 Depression Screening [facility] Start: 09-13-2025 Fall Risk Screening [facility] Start: 09-13-2025 Medicare Annual Well ness Visit Medicare Annual Wellness Visit [facility] Start: 09-13-2025 Tobacco Screening Tobacco Screening [facility] [facility] Start: 08-10-2025 Adult BMI Follow Up Plan [facility]: [facility]25 Adult BMI Screening Adult BMI Screen ing [facility] Start: 08-10-2025 Tobacco Screening Tobacco Screening [facility] Start: 06-09-2025 End: 06-09-2025 Patient encounter procedure 06/09/2025 9:00 AM EDT Office Visit [facility] [address] [place] [address] Bo Darling, PATIENT INSURANCE CLERK - INTERNET CAFE MANAGER [address] [facility] [address] [place] [address] 1yr PVR KUB [facility] Part [facility] Comment on above: 1yr PVR KUB Start: 04-12-2025 Adult BMI Follow Up Plan Adult BMI F ollow Up Plan [facility] Start: 04-12-2025 Depression Screening Depression Scre ening [facility] Start: 04-12-2025 Fall Risk Screening Fall Risk Screen ing [facility] Start: 12-16-2024 End: 12-16-2024 Patient encounter procedure 12/16/2024 2:00 PM EST Office Visit [facility] Internal [facility] - Family Medicine [address] [place] [address] Jairo Daley, PATIENT INSURANCE CLERK-INTERNET CAFE MANAGER [address] [place] [address] [facility] Internal Medicine - Family Medicine Start: 12-11-2024 Adult BMI Follow Up Plan Adult BMI F ollow Up Plan [facility] Start: 12-11-2024 Adult BMI Screening Adult BMI Screen ing [facility] Start: 12-11-2024 Depression Screening Depression Scre ening [facility] Start: 12-11-2024 Fall Risk Screening Fall Risk Screen ing [facility] Start: 12-11-2024 Tobacco Screening Tobacco Screening [facility] Start: 11-29-2024 COVID-19 Vaccine ( season) COVID-19 Vaccine () [facility] Start: 11-03-2024 End: 11-03-2024 Patient encounter procedure 11/03/2024 1:00 PM EST Office Visit [facility] Internal Medicine - Family Medicine [address] [place] [address] Jairo Daley, PATIENT INSURANCE CLERK-INTERNET CAFE MANAGER [address] [place] [address] [facility] Internal Medicine - Family Medicine Start: 09-23-2024 End: 09-23-2024 Patient encounter procedure 09/23/2024 11:50 AM EST Procedure Visit [facility] [address] [facility] [address] [place] [id number] Cristobal Owens DPM [address] [facility] [address] [place] [address] [facility] Start: 09-13-2024 End: 09-13-2024 Patient encounter procedure 09/13/2024 2:40 PM EST Office Visit [facility] - [facility] [address] [place] [address] Jairo Daley, PATIENT INSURANCE CLERK-INTERNET CAFE MANAGER [address] [place] [address] [facility] - [facility] Start: 08-20-2024 Adult BMI Follow Up Plan Adult BMI F ollow Up Plan [facility] Start: 08-20-2024 Adult BMI Screening Adult BMI Screen ing [facility] Start: 08-20-2024 Depression Screening Depression Scre ening [facility] Start: 08-20-2024 Fall Risk Screening Fall Risk Screen ing [facility] Start: 08-20-2024 Medicare Annual Well ness Visit Medicare Annual Wellness Visit [facility] Start: 08-20-2024 Tobacco Screening Tobacco Screening [facility] Start: 08-13-2024 Screening for malign ant neoplasm of breast Breast cancer screen [facility]O [facility] Start: 07-21-2024 [facility] Start: 07-16-2024 End: 07-16-2024 Patient encounter procedure 07/16/2024 8:45 AM EDT Office Visit [facility] Part [address] [place] [phone] Jason Dominguez MD [address] [place] [address], [address] [place] [id number] Follow up [facility] Comment on above: Follow up CT Start: 07-08-2024 End: 07-08-2024 Patient encounter procedure 07/08/2024 11:50 AM EDT Procedure Visit [facility] [address] [facility] [address] [place] [address] Cristobal Owens DPM [address] [facility] [address] [place] [address] Peroneal tendon tear, right, initial encounter (Primary Dx); Onychomycosis; Toe pain, bilateral [facility] Comment on above: Peroneal tendon tear , right, initial encounter (Primary Dx); Onychomycosis; Toe pain, bilateral Start: 06-29-2024 Annual Wellness Visi t (Medicare) Annual Wellness Visit (Medicare) [facility] Start: 06-20-2024 COVID-19 Vaccine ( season) COVID-19 Vaccine ( season) [facility] Start: 06-20-2024 Influenza vaccination Influenza Vacc ine (#1) [facility] Start: 05-20-2024 Influenza vaccination Flu vaccine (# 1) [facility] Start: 04-12-2024 End: 04-12-2024 Patient encounter procedure 04/12/2024 9:40 AM EDT [facility] [address] [place] [phone] Jairo Daley, PATIENT INSURANCE CLERK-INTERNET CAFE MANAGER [address] [place] [address] [facility] Start: 02-12-2024 End: 02-12-2024 Patient encounter procedure 02/12/2024 4:40 PM EDT Procedure Visit [facility] [address] [phone] Cristobal Owens DPM [address] [address] [facility] Start: 01-07-2024 Tobacco Counseling [facility] Start: 12-18-2023 End: 12-18-2023 Clinical Support 12/18/2023 8:50 AM EST Clinical Support [facility] [address] [facility] [address] [place] [phone] Cristobal Owens DPM [address] [address] [facility] Start: 12-11-2023 End: 12-11-2023 Patient encounter procedure 12/11/2023 9:45 AM EST Office Visit [facility] [address] [place] [address] Jairo Daley, PATIENT INSURANCE CLERK-INTERNET CAFE MANAGER [address] [place] [address] [facility] Start: 12-04-2023 End: 12-04-2023 Patient encounter procedure 12/04/2023 4:00 PM EST Office Visit [facility] [address] [facility] [address] [place] [address] Cristobal Owens DPM [address] [facility] [address] [place] [address] [facility] Start: 08-13-2023 Screening for malign ant neoplasm of breast Mammogram [facility] Start: 06-20-2023 COVID-19 Vaccine ( season) COVID-19 Vaccine ( season) [facility] Start: 01-21-2023 End: 01-21-2023 Admission to same day surgery center 01/21/2023 Surgery IP Unit Jason Dominguez MD [address] [place] [address], [address] [place] [address] ESWL EXTRACORPOREAL SHOCK WAVE LITHOTRIPSY [facility] Comment on above: ESWL EXTRACORPOREAL SHOCK WAVE LITHOTRIPSY Start: 01-21-2023 End: 01-21-2023 Lithotripsy xtrcorp shock wave ESWL EXTRACORPOREAL SHOCK WAVE LITHOTRIPSY Renal calculus 01/21/2023 7:30 AM EDT [facility] Start: 01-21-2023 Subsequent hospital visit by physician 01/21/2023 Hospital Encounter IP Unit Jason Dominguez MD [address] [facility], [address] [place] [address] (work) [facility] Start: 12-31-2022 End: 12-31-2022 Patient encounter procedure 12/31/2022 Appointment Radiology [facility] [place] Scan Start: 12-12-2022 Annual Wellness Visi t (AWV) Annual Wellness Visit (AWV) [facility] Start: 2016 Respiratory Syncytia l Virus (RSV) or age 60 yrs+ (1 - 1-dose 60+ series) Respiratory Syncytial Virus (RSV) or age 60 yrs+ (1 - 1-dose 60+ series) [facility] Start: 2011 Screening for osteoporosis DEXA (modify frequency per FRAX score) [facility] Start: 2006 Administration of varicella zoster vaccine Zoster (Shingles) Vaccine (1 of 2) [facility] Start: 2006 Screening for malign ant neoplasm of breast Breast cancer screen [facility] Start: 2006 Shingles vaccine (1 of 2) Shingles vaccine (1 of 2) [facility] Start: 2001 Screening for malign ant neoplasm of colon [facility] Start: 1996 Lipid panel Lipids [facility] Start: 1991 Diabetes screen Diabetes screen [facility] Start: 1975 DTaP,Tdap and Td Vaccines (1 - Tdap) DTaP,Tdap and Td Vaccines (1 - Tdap) [facility] Start: 1975 DTaP/Tdap/Td vaccine (1 - Tdap) DTaP/Tdap/Td vaccine (1 - Tdap) [facility] Start: 1974 Hepatitis C screening Hepatitis C sc reen [facility] Start: 1968 Depression Screen Depression Screen [facility] Start: 06-05-1957 COVID-19 Vaccine (#1) COVID-19 Vacci ne (#1) [facility] Start: 1956 Screening for malign ant neoplasm of colon [facility] Start: 1956 Tobacco Counseling Tobacco Counselradha ortiz [facility] End: 08-10-2025 CBC W Auto Differential panel - Blood CBC auto differential Lab Routine Acquired hypothyroidism 1 Occurrences starting 08/10/2024 until 08/10/2025 [facility] Comment on above: 1 Occurrences starti ng 08/10/2024 until 08/10/2025 End: 08-10-2025 Comprehensive metabolic 2000 panel - Serum or Plasma Comprehensive metabolic panel Lab Routine Acquired hypothyroidism 1 Occurrences starting 08/10/2024 until 08/10/2025 [employer] Work Phone: Comment on above: 1 Occurrences starti ng 08/10/2024 until 08/10/2025 End: 12-12-2022 Culture, Urine [facility] Work Phone: Comment on above: 1 Occurrences starti ng 12/12/2022 until 12/12/2022 End: 08-10-2025 Hemoglobin A1c/Hemoglobin.total in Blood Hemoglobin A1c Lab Routine Screening for diabetes mellitus (DM) 1 Occurrences starting 08/10/2024 until 08/10/2025 [facility] Comment on above: 1 Occurrences starti ng 08/10/2024 until 08/10/2025 End: 08-10-2025 Lipid 1996 panel - Serum or Plasma Lipid profile Lab Routine Mixed hyperlipidemia 1 Occurrences starting 08/10/2024 until 08/10/2025 [facility] Comment on above: 1 Occurrences starti ng 08/10/2024 until 08/10/2025 Patient Education Hemorrhoids (D C) Diverticulosis (DC) Colon Polypectomy (DC) [facility] Work Phone: End: 08-10-2025 Thyrotropin [Units/volume] in Serum or Plasma TSH Lab Routine Acquired hypothyroidism 1 Occurrences starting 08/10/2024 until 08/10/2025 [facility] Comment on above: 1 Occurrences starti ng 08/10/2024 until 08/10/2025 US Lower extremity - right US foot right Imaging Routine Other specified disorders of synovium, right ankle and foot Ordered: 12/04/2023 [facility] [employer] Work Phone: Comment on above: Ordered: 12/04/2023 Immunizations Immunization Date Immunization Notes Care Provider Fa cili 08-10-2024 Seasonal trivalent influenza vaccine, adjuvanted, preservative free Jairo Daley PATIENT INSURANCE CLERK-INTERNET CAFE MANAGER Work Phone: [facility] 08-10-2024 Immunization, In Clinic,; Translations: [Drug or medicament (substance)] Jairo Daley PATIENT INSURANCE CLERK-INTERNET CAFE MANAGER Work Phone: [facility] 08-20-2023 Influenza Vaccine, Quadrivalent, Adjuvanted Adysan Sleek [facility] 08-20-2023 influenza virus vaccine, unspecified formulation Cristobal Owens DPM Work Phone: [facility] 10-02-2022 Pneumococcal Conjuga te 20-valent Adysan Sleek [facility] 10-02-2022 pneumococcal conjuga te vaccine, 7 valent Adysan Sleek [facility] 07-30-2022 Influenza Vaccine, Quadrivalent, Adjuvanted Adysan Sleek [facility] Payers Date Payer Category Payer Medicare HMO [employer] [id number] 2024 Self-pay [id number] 2024 Unknown [id number] 2024 Medicare [id number] 2023 Medicaid [id number] 2023 Medicare [id number] 2023 Medicare [id number] 2022 Medicaid [id number]. [id number] 2022 Medicare [id number] [id number]. [id number] 2017 Medicare [id number] 1.2.840.594446.1.13.239. 2.7.3.675568.315 2017 Unknown [id number] 1959 Medicaid [id number] 1959 Medicare [id number] 1959 Unknown [id number] 1956 Unknown [id number] 2.16.840.1.572695.3.579. 2.593 1956 Unknown [id number] 2.16.840.1.647663.3.579. 2.593 1956 Unknown [id number] 2.16.840.1.013296.3.579. 2.593 1956 Unknown [id number] 2.16.840.1.977040.3.579. 2.593 1956 Unknown [id number] 2.16.840.1.883152.3.579. 2.593 1956 Unknown [id number] 2.16.840.1.254690.3.579. 2.593 1956 Unknown [id number] 2.16.840.1.249111.3.579. 2.593 1956 Unknown [id number] 2.16.840.1.189707.3.579. 2.593 1956 Unknown [id number] 2.16.840.1.844566.3.579. 2.593 1956 Unknown [id number] 2.16.840.1.123285.3.579. 2.593 1956 Unknown [id number] 2.16.840.1.189886.3.579. 2.1286 1956 Unknown [id number] 2.16.840.1.367033.3.579. 2.1259 1956 Unknown [id number] 2.16.840.1.755034.3.579. 2.1259 1956 Unknown [id number] 2.16.840.1.372004.3.579. 2.1259 1956 Unknown [id number] 2.16.840.1.413596.3.579. 2.1259 1956 Unknown [id number] 2.16.840.1.933135.3.579. 2.1259 1956 Unknown [id number] 2.16.840.1.392736.3.579. 2.173 1956 Unknown [id number] 2.16.840.1.575250.3.579. 2.173 1956 Unknown [id number] 2.16.840.1.108244.3.579. 2.173 1956 Unknown [id number] 2.16.840.1.251030.3.579. 2.173 1956 Unknown [id number] 2.16.840.1.263849.3.579. 2.173 1956 Unknown [id number] 2.16.840.1.949612.3.579. 2.128 1956 Unknown [id number] 2.16.840.1.928749.3.579. 2.1285 1956 Unknown [id number] 2.16.840.1.781193.3.579. 2.1285 1956 Unknown [id number] 2.16.840.1.445947.3.579. 2.1285 1956 Unknown [id number] 2.16.840.1.300437.3.579. 2.1285 1956 Unknown [id number] 2.16.840.1.276905.3.579. 2.1286 Private Health Insurance [facility] [id number] Unknown HCAP/HFA/FAP Active [id number] Unknown [id number] 2.16.840.1.891622.3.579. 2.531 Social History Date Type Detail Facility Start: 12-12-2022 End: 03-03-2023 Tobacco smoking status NHIS Smokes tobacco daily [facility] Phone: History of tobacco use Cigarette Smoker [facility] Phone: Start: 12-12-2022 End: 04-12-2024 Cigarettes smoked current (pack per day) - Reported 0.5 [facility] Phone: Start: 12-12-2022 End: 03-03-2023 Tobacco use and exposure Smokeless tobacco non-user [facility] ([facility] Phone: Start: 12-12-2022 End: 11-03-2024 Alcohol intake Current drinker of alcohol (finding) [facility] ([facility] Phone: Start: 12-12-2022 Tobacco Comment Smokes 6-8 cigs/day [facility] Phone: Start: 12-12-2022 Alcohol Comment Beer 2-3 every 2 wee ks [facility] ([facility] Phone: Start: 1955 Sex Assigned At Not on file [facility] Phone: Start: 08-20-2023 End: 04-12-2024 Tobacco use panel [facility] Adolescent depressio n screening assessment 0 [facility] Start: 02-20-2022 Alcohol Comment on weekends, n ot often. [facility] Start: 12-04-2023 Tobacco smoking stat [facility] Never smoked tobacco [facility] History of tobacco use Passive smoker [facility] Start: 12-04-2023 End: 07-08-2024 Alcohol intake Ex-drinker (finding) [facility] How often to you hav e a drink containing alcohol? 2-4 times a month [facility] Start: 12-04-2023 Alcohol Comment coffee daily [facility] Start: 07-21-2024 Tobacco smoking stat [facility] Smoker (finding) [facility] Start: 1955 Sex Assigned At Female F [facility] Start: 10-22-2016 Sex Female (finding) [facility] Goals Date Patient Goal Desired Activity /State Clinical Notes 03-08-2022 to 11-03-2024 Jairo Daley, PATIENT INSURANCE CLERK-INTERNET CAFE MANAGER - 11/03/2024 1:00 PM ESTPatient InstructionsAttachmentsTelephone Encounter - Isidra Alexis, CHIEF MERCHANDISING OFFICER - 10/21/2024 12:10 PM ESTPatient InstructionsAttachments Note Date & Type Note Facility 11-03-2024 History of Presen t illness Narrative Images from the original note were not included. [address] [facility] [address] SUBJECTIVE: Patient ID: Robyn Thorpe is a 68 y.o. female. Chief Complaint Patient presents with Hypertension Patient presents for concern about increased blood pressure. She has been checking at home and has been getting elevated readings. Uses wrist electronic blood pressure cuff. Hypertension This is a chronic problem. The problem has been waxing and waning since onset. The problem is uncontrolled. Pertinent negatives include no chest pain, palpitations or shortness of breath. There are no associated agents to hypertension. Risk factors for coronary artery disease include smoking/tobacco exposure, obesity, post-menopausal state and family history. Past treatments include beta blockers and calcium channel blockers. The current treatment provides moderate improvement. The following portions of the patient's history were reviewed and updated as appropriate: allergies, current medications, past family history, past medical history, past social history, past surgical history and problem list. Past Surgical History: Procedure Laterality Date APPENDECTOMY HYSTERECTOMY ORTHOPEDIC SURGERY Right Shattered ankle, has hardware in still. TONSILLECTOMY Past Medical History: Diagnosis Date Allergic Asthma Back pain Cancer ([facility]) Chronic kidney disease Disease of thyroid gland Hypertension Varicella Immunization History Administered Date(s) Administered COVID-19, mRNA, LNP-S, PF, 30mcg/0.3mL Dose 06/23/2021, 07/14/2021 Covid-19, Mrna, Lnp-s, Bivalent, Pf, 30mcg/0.3 ml 08/14/2022 Covid-19, Mrna, Lnp-s, Pf, 30 Mcg/0.3 Ml Dose, Joce-sucrose 01/13/2022 Influenza Vaccine, Quadrivalent, Adjuvanted 07/30/2022, 08/20/2023 Influenza, Trivalent, Adjuvanted 08/10/2024 Pneumococcal Conjugate 10/02/2022 Pneumococcal Conjugate 20-valent 10/02/2022 REVIEW OF SYSTEMS: Review of Systems Constitutional: Negative for chills and fever. HENT: Negative. Eyes: Negative for visual disturbance. Respiratory: Negative for chest tightness and shortness of breath. Cardiovascular: Negative for chest pain and palpitations. Gastrointestinal: Negative. Endocrine: Negative. Genitourinary: Negative for menstrual problem and pelvic pain. Musculoskeletal: Negative. Skin: Negative. Allergic/Immunologic: Negative. Neurological: Negative for syncope and facial asymmetry. Hematological: Does not bruise/bleed easily. Psychiatric/Behavioral: Negative. PHYSICAL EXAMINATION: Vitals: 11/03/24 1258 BP: 160/88 BP Site: Left Arm BP Postition: Sitting Pulse: 61 Resp: 18 Temp: 36.4 C (97.6 F) TempSrc: Oral SpO2: 94% Weight: 92.9 kg (204 lb 12.8 oz) Height: 160 cm (5' 3 ) Patient noted to have elevated BMI and the following intervention(s) were applied: encouragement to exercise. Physical Exam Vitals and nursing note reviewed. Constitutional: General: She is not in acute distress. Appearance: She is well-developed. She is not diaphoretic. HENT: Head: Normocephalic and atraumatic. Right Ear: Tympanic membrane and external ear normal. Left Ear: Tympanic membrane and external ear normal. Nose: Nose normal. Mouth/Throat: Mouth: Mucous membranes are moist. Pharynx: No oropharyngeal exudate. Eyes: General: Right eye: No discharge. Left eye: No discharge. Conjunctiva/sclera: Conjunctivae normal. Pupils: Pupils are equal, round, and reactive to light. Neck: Thyroid: No thyromegaly. Vascular: No JVD. Cardiovascular: Rate and Rhythm: Normal rate and regular rhythm. Heart sounds: Normal heart sounds. No murmur heard. No friction rub. No gallop. Pulmonary: Effort: Pulmonary effort is normal. Breath sounds: Normal breath sounds. Abdominal: General: Bowel sounds are normal. There is no distension. Palpations: Abdomen is soft. There is no mass. Tenderness: There is no abdominal tenderness. Musculoskeletal: General: Normal range of motion. Cervical back: Normal range of motion and neck supple. Lymphadenopathy: Cervical: No cervical adenopathy. Skin: General: Skin is warm and dry. Capillary Refill: Capillary refill takes less than 2 seconds. Neurological: Mental Status: She is alert and oriented to person, place, and time. Deep Tendon Reflexes: Reflexes are normal and symmetric. Psychiatric: Mood and Affect: Mood normal. Behavior: Behavior normal. Thought Content: Thought content normal. Judgment: Judgment normal. ASSESSMENT/PLAN: Robyn was seen today for hypertension. Diagnoses and all orders for this visit: Obesity, morbid (CMS-HCC) Benign essential HTN - losartan (COZAAR) 100 mg tablet; Take 1 tablet (100 mg total) by mouth in the morning. Blood pressure 160/90. Increase losartan to 100 mg oral daily. Continue metoprolol 25 mg oral twice daily Spironolactone 25 mg oral daily Continue to monitor blood pressure at home. If blood pressure remains above 140 systolic and above 90 diastolic. Please call the office to inform. ALL QUESTIONS ANSWERED Total time spent was 25 minutes: Preparing to see the patient (e.g., review of tests) Obtaining and/or reviewing separately obtained history Performing a medically appropriate examination and/or evaluation Counseling and educating the patient/family/caregiver Ordering medications, tests, or procedures Follow-up: Next scheduled Sooner if blood pressure does not improve CARLITOS Haas 11/03/24 1326 documented in this encounter [facility] Instructions CARLITOS Haas - 11/03/2024 1:00 PM EST Are You Ready To Kick The Habit? Free Tobacco Cessation Resources [facility] Services [facility] provide all employees with free tobacco cessation services that include: Counseling to understand nicotine addiction Education about medications that can help you successfully quit Assistance with developing a plan to quit Call to set up an individual appointment or find out when group classes will be held: [facility]: [phone] [facility]: [phone] [facility]: [phone] [facility]: [phone] Quit Smoking Action Plan and Resources [facility] offers an eight-week, online smoking cessation plan to all [facility] employees, regardless of whether [employer] is your medical insurance provider. Go to [email or web address] [email or web address] and click the Health Risk Assessment and Resources link to get started. In the [employer] menu, click Action Plans instead of Health Risk Assessment to access the Quit Smoking Action Plan. Additional smoking cessation resources are also available to all [facility] employees on the Fuf[employer]Itfxxv web page at [email or web address] [email or web address]. [employer] Tobacco Cessation Program If [employer] is your medical insurance provider, there are more free resources available to you, including: No copays or deductibles on local tobacco cessation counseling services to help you quit Prescription assistance for tobacco cessation medications to help you quit For details about the tobacco cessation program available to [employer] members, go to www.[email or web address].me.[employer] (Search: Tobacco Cessation Program). [place] Tobacco Quit Line 2-578-KAPS-NOW ( ) is a toll-free, telephonic service that helps [place] residents quit smoking and using tobacco. It is staffed by experts who tailor a quit plan for you and provide you with advice. [place] Tobacco Quit Line 4-454-GDEE-NOW ( ) is a toll-free, telephonic service that helps [place] residents quit smoking and using tobacco. It is staffed by experts who tailor a quit plan for you and provide you with advice. Two weeks of nicotine replacement therapy may be provided at no charge, if needed. Additional Resources These national organizations also offer free information and resources to help you quit tobacco: [employer]--www.cancer.org/healthy /stayawayfromtobacco [place] [employer]--www.heart.org (Search: Quit Smoking) Centers for Disease Control and Prevention--www.cdc.gov/tobacco [place] [employer] Association--www.lungusa.org The following attachments cannot be sent through Care Everywhere.Diet and health (Hungarian)documented in this encounter [facility] 10-21-2024 Miscellaneous Notes Pt called stated that her BP has been 200s over 100s and needs her meds changed its been like this for a week in a half She will need an appointment for further evaluation Can someone finagale this pls Whenever first available is, can be 20 min I can't find anything till the , I would think she needs to come in sooner if possible you guys are better at working the schedule If that's the first 20 minute we have then that's all. I can't move appointments to accommodate Pt is scheduled Pt called requesting a referral to a new protective officer in [place] Their name is [facility] Phone number is [phone] Fax is [phone] documented in this encounter [facility] 10-21-2024 Telephone encounter Note Pt called stated that her BP has been 200s over 100s and needs her meds changed its been like this for a week in a half [facility] 10-21-2024 Telephone encounter Note She will need an appointment for further evaluation [facility] 10-21-2024 Telephone encounter Note Can someone [facility]ale [facility] 10-21-2024 Telephone encounter Note Whenever first available is, can be 20 min [facility] 10-21-2024 Telephone encounter Note I can't find anything till the , I would think she needs to come in sooner if possible you guys are better at working the schedule [facility] Telephone encounter Note If that's the first 20 minute we have then that's all. I can't move appointments to accommodate [facility]24 Telephone encounter Note Pt is scheduled [facility] 10-21-2024 Telephone encounter Note Pt called requesting a referral to a new protective officer in [place] Their name is [facility] Phone number is [phone] Fax is [phone] [facility] 09-13-2024 History of Presen t illness Narrative Subjective SUBJECTIVE: Patient ID: Robyn Thorpe is a 68 y.o. female who presents for a Medicare Annual Wellness exam. Presents for annual wellness. She stays active. Resides in her own home with significant other. Drives. Does not use assistive gait devices for ambulation. Is a smoker. CT low dose screening is done through cuprous chloride operator yearly ([facility]) States she has been experiencing wheezing and coughing for two weeks. Annual Exam Associated symptoms include coughing. Pertinent negatives include no chest pain, chills or fever. The following portions of the patient's history were reviewed and updated as appropriate: allergies, current medications, past family history, past medical history, past social history, past surgical history and problem list. Past Surgical History: Procedure Laterality Date APPENDECTOMY HYSTERECTOMY ORTHOPEDIC SURGERY Right Shattered ankle, has hardware in still. TONSILLECTOMY Past Medical History: Diagnosis Date Allergic Asthma Back pain Cancer ([facility]) Chronic kidney disease Disease of thyroid gland Hypertension Varicella Immunization History Administered Date(s) Administered COVID-19, mRNA, LNP-S, PF, 30mcg/0.3mL Dose 06/23/2021, 07/14/2021 Covid-19, Mrna, Lnp-s, Bivalent, Pf, 30mcg/0.3 ml 08/14/2022 Covid-19, Mrna, Lnp-s, Pf, 30 Mcg/0.3 Ml Dose, Joce-sucrose 01/13/2022 Influenza Vaccine, Quadrivalent, Adjuvanted 07/30/2022, 08/20/2023 Influenza, Trivalent, Adjuvanted 08/10/2024 Pneumococcal Conjugate 10/02/2022 Pneumococcal Conjugate 20-valent 10/02/2022 AWV FLOWSHEET : Lifestyle Assessment Do you smoke or use smokeless tobacco?: (!) Yes If you smoke or use smokeless tobacco, are you ready to quit?: (!) Yes Are you exposed to secondhand smoke?: No On average, how many drinks of alcohol do you consume in a week?: 1 or less Do you exercise for 30 or more minutes on average at least 3 days a week?: Always Do you have any tooth, denture, or oral problems?: (!) Yes Do you snore or has anyone told you that you snore?: (!) Yes Do you try to eat a balanced diet?: Yes Do you have difficulty performing any of these activities? (check all that apply): None Do you have difficulty performing any of these activities? (check all that apply): None Patient is a current smoker, smoking cessation discussed today in office. He/She is not interested at this time Discussed dental visits every 6 months and per dental provider recommendations. Witnessed snoring, does not wish to pursue sleep study at this time. Fall Risk Depression Screening Little interest or pleasure in doing things: Not at all Feeling down, depressed, or hopeless: Not at all Trouble falling or staying asleep, or sleeping too much: Not at all Feeling tired or having little energy: Not at all Poor appetite or overeating: Not at all Feeling bad about yourself - or that you are a failure or have let yourself or your family down: Not at all Trouble concentrating on things, such as reading the newspaper or watching television: Not at all Moving or speaking so slowly that other people could have noticed. Or the opposite - being so fidgety or restless that you have been moving around a lot more than usual: Not at all Thoughts that you would be better off , or of hurting yourself in some way: Not at all Safety Assessment Do you have throw rugs on the floor?: (!) Yes Do you feel safe at your home?: Yes Do you feel unsteady when walking?: (!) Yes Are you having difficulty with driving?: (!) Yes Do you have trouble seeing?: No What assistive device do you use? (check all that apply): None Throw rugs increase risk for slips, trips, and falls When pain level is higher, has difficulty walking Hearing Assessment Do you strain or struggle to hear/understand conversations?: (!) Yes Do you have trouble hearing the television or radio when others do not?: (!) Yes Does your family ever voice concerns about your hearing?: (!) Yes Do you wear hearing aid/s?: (!) Yes Discussed audiology testing. Referral if hearing issues continue. Personal Health During the past 4 weeks, how would you rate your overall health?: Good Do you understand how to take all of your medications?: Yes How confident are you that you can control and manage most of your health problems?: Very confident In the past 12 months, how many times have you been hospitalized?: None End of Life Planning Do you have a living will?: (!) No Do you have a durable power of regulatory attorney?: (!) No Patient educated today about benefits of having a Living Will and DPOA. Information packet provided today. Cognitive Screening Do you have trouble remembering or recalling facts or events?: (!) Yes Do family members or caregivers report that you have difficulty remembering things?: (!) Yes Clock Drawing Test: Normal Mini mental 27/30 REVIEW OF SYSTEMS: Review of Systems Constitutional: Negative for chills and fever. HENT: Negative. Eyes: Negative for visual disturbance. Respiratory: Positive for cough, chest tightness and wheezing. Negative for shortness of breath. Cardiovascular: Negative for chest pain and palpitations. Gastrointestinal: Negative. Endocrine: Negative. Genitourinary: Negative for menstrual problem and pelvic pain. Musculoskeletal: Negative. Skin: Negative. Allergic/Immunologic: Negative. Neurological: Negative for syncope and facial asymmetry. Hematological: Does not bruise/bleed easily. Psychiatric/Behavioral: Negative. Objective PHYSICAL EXAMINATION: Vitals: 09/13/24 1420 BP: 140/80 BP Site: Left Arm BP Postition: Sitting Pulse: 67 Resp: 18 Temp: 36.6 C (97.9 F) TempSrc: Oral SpO2: 91% Weight: 92.2 kg (203 lb 3.2 oz) Height: 160 cm (5' 3 ) Patient noted to have elevated BMI and the following intervention(s) were applied: encouragement to exercise. Relevant Labs: Lab Results Component Value Date HGBA1C 6.2 (H) 08/10/2024 No results found for: MICROALBUR , URINECREAT , ALBCREATRA Lab Results Component Value Date TSH 0.42 (L) 08/10/2024 TSH 0.45 (L) 12/11/2023 T4 1.29 12/11/2023 T4 1.58 08/20/2023 No results found for: VITD25 Lab Results Component Value Date WBC 5.8 08/10/2024 RBCCOUNT 5.07 08/10/2024 HGB 15.0 08/10/2024 HCT 44.0 08/10/2024 MCV 87 08/10/2024 MCH 29.5 08/10/2024 MCHC 34.1 08/10/2024 RDW 14.2 08/10/2024 PLT 199 08/10/2024 MPV 8.9 08/10/2024 No results found for: PSA Lab Results Component Value Date SODIUM 140 08/10/2024 K 4.1 08/10/2024 CL 105 08/10/2024 CO2 25 08/10/2024 ANIONGAP 10 08/10/2024 BUN 22 08/10/2024 GLU 117 (H) 08/10/2024 CALCIUM 9.1 08/10/2024 TOTALPROTEI 7.0 08/10/2024 ALBUMIN 3.9 08/10/2024 ALKPHOS 67 08/10/2024 AST 39 08/10/2024 ALT 41 (H) 08/10/2024 Imaging: No results found. Physical Exam Vitals and nursing note reviewed. Constitutional: General: She is not in acute distress. Appearance: She is well-developed. She is not diaphoretic. HENT: Head: Normocephalic and atraumatic. Right Ear: Tympanic membrane and external ear normal. Left Ear: Tympanic membrane and external ear normal. Nose: Nose normal. Mouth/Throat: Mouth: Mucous membranes are moist. Pharynx: No oropharyngeal exudate. Eyes: General: Right eye: No discharge. Left eye: No discharge. Conjunctiva/sclera: Conjunctivae normal. Pupils: Pupils are equal, round, and reactive to light. Neck: Thyroid: No thyromegaly. Vascular: No JVD. Cardiovascular: Rate and Rhythm: Normal rate and regular rhythm. Heart sounds: Normal heart sounds. No murmur heard. No friction rub. No gallop. Pulmonary: Effort: Pulmonary effort is normal. Breath sounds: Wheezing present. Comments: Moist cough present Abdominal: General: Bowel sounds are normal. There is no distension. Palpations: Abdomen is soft. There is no mass. Tenderness: There is no abdominal tenderness. Musculoskeletal: General: Normal range of motion. Cervical back: Normal range of motion and neck supple. Lymphadenopathy: Cervical: No cervical adenopathy. Skin: General: Skin is warm and dry. Capillary Refill: Capillary refill takes less than 2 seconds. Neurological: Mental Status: She is alert and oriented to person, place, and time. Deep Tendon Reflexes: Reflexes are normal and symmetric. Psychiatric: Mood and Affect: Mood normal. Behavior: Behavior normal. Thought Content: Thought content normal. Judgment: Judgment normal. Assessment/Plan ASSESSMENT/PLAN Robyn was seen today for annual exam. Diagnoses and all orders for this visit: Medicare annual wellness visit, subsequent COPD exacerbation ([facility]) - azithromycin (ZITHROMAX) 250 mg tablet; Take 2 tablets the first day, then 1 tablet daily for 4 days. - predniSONE (DELTASONE) 20 mg tablet; Take 1 tablet (20 mg total) by mouth See Admin Instructions. 1 tab 2x daily x3 days, 1 tab daily x3 days, 1/2 tablet daily x4 days Colonoscopy screening discussed today. Risk and benefits of procedure explained. Patient completed 2023 Depression: Not at risk (09/13/2024) PHQ-2 PHQ-2 Score: 0 COPD exacerbation Start Zpak and Prednisone 20 mg oral taper as directed Body mass index is 36 kg/m . Patient noted to have elevated BMI and the following intervention(s) were applied: Discussed current weight today. Consider healthy food choices, portion control. Avoid sugary beverages and high concentrated sweets. Routine exercise regimen encouraged. Total time spent was 30 minutes: Preparing to see the patient (e.g., review of tests) Obtaining and/or reviewing separately obtained history Performing a medically appropriate examination and/or evaluation Counseling and educating the patient/family/caregiver Ordering medications, tests, or procedures Return in about 3 months (around 12/14/2024). There are no Patient Instructions on file for this visit. Jairo Daley APRN-INTERNET CAFE MANAGER 09/13/24 1510 documented in this encounter [facility] 08-10-2024 History of Presen t illness Narrative Images from the original note were not included. [address] [place] [address] SUBJECTIVE: Patient ID: Robyn Thorpe is a 68 y.o. female. Chief Complaint Patient presents with Hypothyroidism fibro Presents for follow up States multiple joint pain and fibromyalgia has been aching her. She relays my knees are bone on bone . She is planning having knee replacement in the near future. She doesn't know which knee she is doing first. Pain This is a chronic problem. The current episode started more than 1 year ago. The problem occurs daily. The problem has been waxing and waning. Associated symptoms include arthralgias, myalgias and weakness. Pertinent negatives include no chills, fatigue, fever, headaches, joint swelling, neck pain, rash, sore throat, swollen glands, vertigo, visual change or vomiting. Nothing aggravates the symptoms. She has tried rest, oral narcotics, position changes, sleep, walking, relaxation, NSAIDs, heat, eating, ice, acetaminophen, immobilization and lying down for the symptoms. The treatment provided moderate relief. Hypertension This is a chronic problem. The current episode started more than 1 year ago. The problem is controlled. Pertinent negatives include no headaches or neck pain. There are no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 [address] Referral ID Status Reason Start Date Expiration Date Visits Re quested Visits Authorized [id number] Open 01/02/2023 01/02/2024 1 1 Chief Complaint and Reason for Visit Chief Complaint Screening Screening Additional Source Comments INFORMATION SOURCE (unrecogn ized section and content) DATE CREATED AUTHOR 09/22/2022 [facility] DATE CREATED AUTHOR AUTHOR'S ORGANIZ ATION 03/03/2023 [facility] DATE CREATED AUTHOR AUTHOR'S ORGANIZ ATION 12/19/2023 [facility] DATE CREATED AUTHOR AUTHOR'S ORGANIZ ATION 06/15/2024 [facility] DATE CREATED AUTHOR AUTHOR'S ORGANIZ ATION 07/10/2024 [facility] DATE CREATED AUTHOR AUTHOR'S ORGANIZ ATION 07/13/2024 [facility] DATE CREATED AUTHOR AUTHOR'S ORGANIZ ATION 08/01/2024 [facility] DATE CREATED AUTHOR AUTHOR'S ORGANIZ ATION 11/06/2024 [facility] Care Teams (unrecognized sec tion and content) Clinic Mgr Relationship Specialty Start Date End Date Jairo Daley PATIENT INSURANCE CLERK [facility] [address] [place] [address] PCP - General 12/12/22 Clinic Mgr Relationship Specialty Start Date End Date Jairo Daley PATIENT INSURANCE CLERK [facility] [address] [place] [address] PCP - General 12/12/22 Clinic Mgr Relationship Specialty Start Date End Date Jairo Daley [facility] [address] [place] [address] PCP - General 12/12/22 Clinic Mgr Relationship Specialty Start Date End Date Jairo Daley PATIENT INSURANCE CLERK [facility] [address] [place] [address] PCP - General 12/12/22 Clinic Mgr Relationship Specialty Start Date End Date [facility] [address] [place] [address] PCP - General Family Medicine 02/20/22 Clinic Mgr Relationship Specialty Start Date End Date [facility] [address] [place] [address] PCP - General Family Medicine 02/20/22 Clinic Mgr Relationship Specialty Start Date End Date [facility] [address] [place] [address] PCP - General Family Medicine 02/20/22 Clinic Mgr Relationship Specialty Start Date End Date Jairo Daley APRN - TESS [address] [place] [address] PCP - General 12/12/22 Team Status: Active [...] Care Provider Active Start: July 21, 2024 Clinic Mgr Relationship Specialty Start Date End Date Jairo Daley APRN-TESS [address] [place] [address] PCP - General Family Medicine 02/20/22 Clinic Mgr Relationship Specialty Start Date End Date Jairo Daley APRN-TESS [address] [place] [address] PCP - General Family Medicine 02/20/22 Clinic Mgr Relationship Specialty Start Date End Date Unallocated, Noms Provider, [place] [address] PCP - General Family Medicine 07/08/24 Jairo Daley CRNP [address] [place] [address] Referring Physician Nurse Practitioner 07/08/24 Clinic Mgr Relationship Specialty Start Date End Date Unallocated, Martha Cabrera MD [address] [place] [address] PCP - General Family Medicine 07/08/24 Jairo Daley CRNP [address] [place] [address] Referring Physician Nurse Practitioner 07/08/24 Clinic Mgr Relationship Specialty Start Date End Date Jairo Daley APRN-INTERNET CAFE MANAGER [address] [place] [address] PCP - General Family Medicine 02/20/22 Clinic Mgr Relationship Specialty Start Date End Date Jairo Daley APRN-INTERNET CAFE MANAGER [address] [place] [address] PCP - General Family Medicine 02/20/22 Reason for Visit (unrecogniz ed section and content) Specialty Diagnoses / Procedures Referred By Gregor prabhakar Referred To Contact Radiology Diagnoses Renal calculus Gross hematuria Renal Calculus [N20.0] Gross Hematuria [R31.0] Procedures CT UROGRAM CHG CT ABDOMEN & PELVIS W/O CONTRST 1/> [place] [id number] - CHG CT ABDOMEN & PELVIS W/O CONTRST 1/> BODY RE Jason Dominguez MD [address] [facility], [address] [place] [address] Referral ID Status Reason Start Date Expiration Date Visits Re quested Visits Authorized [id number] Closed 12/12/2022 12/12/2023 1 1 Reason Comments DM Foot Care Dm Nails/ fungus Specialty Diagnoses / Procedures Referred By Contac t Referred To Contact Podiatry Diagnoses Hx of onychomycosis Procedures AMB REFERRAL TO PODIATRY Jairo Daley CRNP [address] [place] [address] Cristobal Owens, VIKI [address] [place] [address] Referral ID Status Reason Start Date Expiration Date Visits Re quested Visits Authorized [id number] Closed 11/17/2023 11/16/2024 1 1 Reason Onset Date Comments Med Refill 01/13/2024 Reason Onset Date Comments Med Refill 01/15/2024 Reason Comments Hypothyroidism fibro Reason Comments Annual Exam medicare Reason Comments Toenail Care NON DM NAIL CARE Reason Comments Hypertension FOR RECORDS PERTAINING TO PATIENTS WHO ARE [...] BE BASED ON THE PRIMARY CLINICAL RECORDS. [employer] provides no warranty or guarantee of the accuracy or completeness of information in this document.
--- NOTE | 2024-11-22 11:55 | XR_ITS ---
The [address] [address] Patient Name: FRANKO NUNEZ MRN: [id number] date: 1955 Sex: F Assigned Patient Location: [facility] Current Patient Location: [facility] Accession/Order Number: [id number] Exam Date: 11/22/2024 12:00 Report Date: 11/25/2024 09:48 At the request of: HENRY WONG Procedure: XR ankle RT min 3V PROCEDURE: XR ankle RT min 3V COMPARISON: None. HISTORY: Right Ankle Pain FINDINGS: BONES:No acute fracture or dislocation. Remote healed distal fibular fracture with internal fixation utilizing a lateral plate and screws. No mechanical failure. SOFT TISSUES:Negative. No visible soft tissue swelling. EFFUSION:None visible. OTHER: Negative. XR/XR ankle RT min 3V IMPRESSION: Remote healed distal fibular fracture. Electronically authenticated by: XAVIER GONZALES Date: 11/25/2024 09:48
== END 2024-11-22 11:48 | disposition home or self-care (01) ==
LOC: RAD 11:49
PROVIDERS: PCP Nurse Practitioner; Visit Provider Physician Assistant
DX: M25.571 Pain in right ankle and joints of right foot (principal); S89.391D Other physeal fracture of lower end of right fibula, subsequent encounter for fracture with routine healing
CPT/HCPCS: 73610

== ENCOUNTER 2025-03-03 15:00 | Outpatient (RCR) | payer MEDICARE, SELFPAY | END 2025-03-18 10:23 | disposition home or self-care (01) | LOC: PT 15:00 | PROVIDERS: PCP Nurse Practitioner | DX: S82.891D Other fracture of right lower leg, subsequent encounter for closed fracture with routine healing (principal); Z98.890 Other specified postprocedural states | CPT/HCPCS: 97110; 97140; 97161 ==

== ENCOUNTER 2025-04-14 13:53 | Outpatient (OUT) | payer MEDICARE, MEDICAID, SELFPAY ==
--- OUTSIDE RECORDS SUMMARY | 2024-09-06 06:00 | XMS_ITS ---
Author Organization [facility] Address [address] [place] [address] Care Team Providers Care Commercial Baker Helper Name Role Phone JAIRO OCHOA Primary Care Provider Unavail able Michi Drake Unavailable [phone] REASON FOR VISIT RIGHT KNEE OA Encounters Encounter Location Date Provider Diagnosis [facility] [facility] [address] [place] [address] [address] [place] [address] 09/06/2024 Michi Drake Plan Of Treatment No Information Progress Notes * ENRIQUEFRANKODOB:1955 (69 yo F)Acc No.[id number]:09/06/2024 Patient: FRANKO LYNNE Provider: Getachew Drake MD :1955 A ge:68 Y S ex:Female Date:09/06/2024 Address:[address] [place] [address] [address], [place], [place] Pcp:JAIRO OCHOA Subjective: * Chief Complaints: * 1 . RIGHT KNEE OA. * Medical History: Objective: * Vitals: Assessment: Plan: * Treatment: Forms: * Images: * Electronic signature of Vimal Drake MD on 04/14/2025 at 01:57 PM EDT Sign off status: Pending * Provider: Getachew Drake MD Date: 11/06/2023 Generated for Printi ng/Faxing/eTransmitting on: 0 04/14/2025 01:57 PM EDT
--- OUTSIDE RECORDS SUMMARY | 2024-09-13 06:05 | XMS_ITS ---
Author Organization [facility] [place] Address [address] [place] [address] Care Team Providers Care Mental Health Program Director Name Role Phone DaleyAliciaEmmie Primary Care Provider Unavaila Onesimo Kidd Unavailable [phone] REASON FOR VISIT Inhalers Encounters Encounter Location Date Provider Diagnosis [facility] [place] [address] [place] [address] 09/13/2024 Onesimo Spaulding Plan Of Treatment Next Appt Details Provider Name:Onesimo Spaulding, 06/29/2025 08:00:00 AM, [address] [place], [address], Progress Notes * Robny NUNEZDOB:1955 (68 yo F)Acc No.[id number]:09/13/2024 Patient: Robyn LYNNE :1955 A ge:68 Y S ex:Female Address:[address] [place], [address] * true * Date: Generated for Printi ng/Faxing/eTransmitting on: 0 04/14/2025 01:56 PM EDT
--- OUTSIDE RECORDS SUMMARY | 2024-11-01 09:30 | XMS_ITS ---
Author Organization [facility] Address [address] [place] [address] Care Team Providers Care [employer] Hazmat Tanker Driver Name Role Phone JAIRO OCHOA Primary Care Provider Unavail able Michi Drake Unavailable [phone] Karthik Samaniego Unavailable [phone] REASON FOR VISIT RIGHT KNEE RECHECK - CSI 08/16 Medications Medication SIG (Take, Route, Fr equency, Duration) Notes Start Date End Date Status Medrol Dosepak 4 mg as directed 07/26/2024 Active Encounters Encounter Location Date Provider Diagnosis [facility] [facility] [address] [place] [address] [place] [address] 11/01/2024 Karthik Samaniego Plan Of Treatment No Information Progress Notes * FRANKO NUNEZDOB:1955 (69 yo F)Acc No.[id number]:11/01/2024 Patient: Caroline LUISITOCELESTINEFRANKO Provider: Eusebia Samaniego DO :1955 A ge:68 Y S ex:Female Date:11/01/2024 Address:[address] [place] [address] [address], [place], [place] Pcp:JAIRO OCHOA Subjective: * Chief Complaints: * 1 . RIGHT KNEE RECHECK - CSI 08/16. * Medical History: * Medications: T aking Medrol Dosepak 4 mg tablet as directed Objective: * Vitals: Assessment: Plan: * Treatment: Forms: * Images: * Electronic signature of Kasey Samaniego DO on 04/14/2025 at 01:57 PM EDT Sign off status: Pending * Provider: Eusebia Samaniego, Date: 0 11/01/2024 Generated for Leo chaidez/Brodie/Mary Alice on: 0 04/14/2025 01:57 PM EDT
--- OUTSIDE RECORDS SUMMARY | 2024-11-23 05:30 | XMS_ITS ---
Author Organization The [facility] in [place] Address [address] [place] [address] Care Team Providers Care Disintegrator Name Role Phone DaleyAliciaEmmie Primary Care Provider Shakir Rice [phone] REASON FOR VISIT rt foot, fell felt pop, having pain Medications Medication SIG (Take, Route, Frequency, Duration) Notes Start Date End Date Status Spironolactone 25 MG Oral for 90 Days Active Trelegy Ellipta 100-62.5-25 MCG/ACT 1 puff Inhalation Once a day for 90 days Rinse after use Active Lisinopril 2.5 MG 1 tablet Orally HS Active Metoprolol Tartrate 25 MG Oral for 90 Days Active Lisinopril 10 MG 1 tablet Orally AM for 30 days Active FLUoxetine HCl 10 MG TAKE 1 CAPSULE (10 MG TOTAL) BY MOUTH NIGHTLY. Oral for 90 Days Active Gabapentin 100 MG Oral for 90 Days Active Diclofenac Sodium 75 MG Oral for 90 Days Active Gabapentin 300 MG 1 capsule Orally Once a day Active Levothyroxine Sodium 50 MCG Oral for 90 Days Active Albuterol Sulfate HFA 108 (90 Base) MCG/ACT 2 puffs as needed for SOB Inhalation Q4H for 90 days Active Social History Tobacco Use: Social History Observation Description Date Details (start date - stop date) Current Smoker NA - NA Tobacco Use/Smoking Question Answer Notes Patient is a current every day smoker Additional Findings: Tobacco User Light cigarett e smoker ((1-9 cigs/day) Tobacco Control (Standard) Question Answer Notes Tobacco use: Current every day smoker Additional Findings: Tobacco user Moderate cigar ette smoker (10-19 cigs/day) Encounters Encounter Location Date Provider Diagnosis [facility] (PODIATRY) [address] [place] [address] [place] [address] 11/23/2024 Shakir Kinney Displaced fracture of lateral malleolus of right fibula, sequela S82.61XS ; Other instability, right ankle M25.371 ; Strain of muscle(s) and tendon(s) of peroneal muscle group at lower leg level, right leg, initial encounter S86.311A ; Other specified joint disorders, right ankle and foot M25.871 ; Cigarette nicotine dependence with nicotine-induced disorder F17.219 and Right ankle pain M25.571 Assessments Encounter Date Diagnosis (ICD Code) Assessment Notes Treatment Notes Treatment Clinical Notes Section Notes 11/23/2024 Displaced fracture of lateral malleolus of right fibula, sequela (ICD-10 - S82.61XS) Patient was seen and evaluated. Patient's condition was provided and all questions were answered to satisfaction. I reviewed x-rays, MRI and physical exam findings. Patient has had the symptoms for nearly 9 months and under the care of Dr. White she failed to respond to bracing and corticosteroid injection. Patient would like to undergo reconstructive surgery and I recommended: Right ankle arthroscopy, lateral ankle stabilization, peroneal tendon repair and removal of deep implanted hardware I reviewed the possible complications which include but not limited to infection, wound healing issue, numbness and tingling, bleeding, blood clot, pain, need for additional surgery.Patient is at increased risk of postoperative complication giving smoking history and significant cardiovascular disease. She recently seen her plant health manager but related that she is going to see a new plant health manager at the end of the month. She will require cardiac clearance and possibly pulmonary clearance.Postoperat joslyn course was reviewed and the patient will likely be: Nonweightbearing for 1 to 3 weeks followed by protected weightbearing in cam boot Patient will be: outpatient postoperatively Proposed anesthesia: General And regional Proposed implants: Medline 3.3 mm suture anchors 11/23/2024 Other instability, right ankle (ICD-10 - M25.371) 11/23/2024 Strain of muscle(s) and tendon(s) of peroneal muscle group at lower leg level, right leg, initial encounter (ICD-10 - S86.311A) 11/23/2024 Other specified joint disorders, right ankle and foot (ICD-10 - M25.871) 11/23/2024 Cigarette nicotine dependence with nicotine-induc ed disorder (ICD-10 - F17.219) 11/23/2024 Right ankle pain (ICD-10 - M25.571) Plan Of Treatment Treatment Notes Assessment Notes Displaced fracture of latera l malleolus of right fibula, sequela Patient was seen and evaluated. Patient's condition was provided and all questions were answered to satisfaction. I reviewed x-rays, MRI and physical exam findings. Patient has had the symptoms for nearly 9 months and under the care of Dr. White she failed to respond to bracing and corticosteroid injection. Patient would like to undergo reconstructive surgery and I recommended: Right ankle arthroscopy, lateral ankle stabilization, peroneal tendon repair and removal of deep implanted hardware I reviewed the possible complications which include but not limited to infection, wound healing issue, numbness and tingling, bleeding, blood clot, pain, need for additional surgery.Patient is at increased risk of postoperative complication giving smoking history and significant cardiovascular disease. She recently seen her plant health manager but related that she is going to see a new plant health manager at the end of the month. She will require cardiac clearance and possibly pulmonary clearance.Postoperative course was reviewed and the patient will likely be: Nonweightbearing for 1 to 3 weeks followed by protected weightbearing in cam boot Patient will be: outpatient postoperatively Proposed anesthesia: General And regional Proposed implants: Medline 3.3 mm suture anchors Pending Test Test Name Order Date XR Ankle RT (3 views) * (161) 11/23/2024 Next Appt Details Provider Name:Onesimo Spaulding, 06/29/2025 08:00:00 AM, [address] [place], [address], Progress Notes * Robyn NUNEZDOB:1955 (68 yo F)Acc No.[id number]:11/23/2024 Follow Up Patient: Robyn LYNNE Provider: Caroline Kinney DPM, MS :1955 A ge:68 Y S ex:Female Date:11/23/2024 Address:[facility] [address] [id number] Pcp:Emmie Daley Check In:09:16 AM Lalit O ut:10:17 AM EST Subjective: * Chief Complaints: * R t foot, fell felt pop, having pain * HPI: G eneral: Patient in office today complaining of right ankle pain. Majority of her pain is located in her lateral ankle. She states back in february of 2024 Dr. White did an MRI of her right ankle. It confrimed that she has a torn tendon. She states they did try a steroid injection and it did not help. Recently in September of 2024 the patient fell down her stairs and reinjured her ankle. She states she heard a popping sound after falling. She states her ankle feels unstable when walking. Sh has not trierd ankle bracing. * ROS: G eneral/Constitutional: Chills d enies. F ever d enies. W eight gain?denies. W eight loss d enies. S kin: Skin Ulcers d enies. S kin lesion(s) d enies. ? C ardiovascular: Difficulty breathing on exertion d enies. L eg cramps?denies. E marianna d enies. C hest pain d enies. R espiratory: Difficulty breathing d enies. D yspnea d enies.?Cough d enies. G astrointestinal: Diarrhea d enies. N ausea d enies. V omiting?denies. M usculoskeletal: Bone/Joint Symptoms d enies. C fdc Pain d enies.?Leg cramps d enies. N eurologic: Numbness d enies. T ingling d enies . G ait abnormality d enies. ? H ematology: Anemia D enies. E asy bruising d enies. ? A ll Other Systems: Review of Systems (ROS) S ee HPI for details,All others negative except those mentioned in HPI. 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 Modified On:07/03/2023W/U Status:confirmed F17.219 Cigarette nicotine d ependence with nicotine-induced disorder Modified On:07/03/2023/U Status:confirmed R91.8 Multiple pulmonary n odules Modified On:07/03/2023/U Status:confirmed E66.9 Obesity, unspecified Modified On:07/03/2023/U Status:confirmed Z68.37 Body mass index [BMI ] 37.0-37.9, adult Modified On:06/30/2024/U Status:confirmed * Medical History: * Surgical History: r ight knee arthroscopy hysterectomy tonsillectomy back surgery appendectomy right foot surgery ureteral stent lithotripsy * Hospitalization/Major Diagno stic Procedure: N o Hospitalization History. * Family History: F ather: diagnosed with Other malignant neoplasm of unspecified site, Unspecified essential hypertension, Unspecified heart disease. M other: diagnosed with Other malignant neoplasm of unspecified site, Unspecified essential hypertension, Unspecified heart disease, Diabetes mellitus without mention of complication, type II or unspecified type, not stated as uncontrolled. B rother(s): diagnosed with Other malignant neoplasm of unspecified site. * Social History: T obacco Use: T obacco Control (Standard) T obacco use: C urrent every day smoker A dditional Findings: Tobacco user M oderate cigarette smoker (10-19 cigs/day) Electronic Cigarette use C urrent user N o LM: Additional Tobacco Questions N umber of Years Pt Smoked: 5 5 N umber of Packs per Day: 3 Tobacco Use/Smoking P atient is a c urrent every day smoker A dditional Findings: Tobacco User L ight cigarette smoker ((1-9 cigs/day) * Medications: T akingAlbuterol Sulfate HFA 108 (90 Base) MCG/ACT Aerosol Solution 2 puffs as needed for SOB Inhalation Q4H Diclofenac Sodium 75 MG Tablet Delayed Release Oral FLUoxetine HCl 10 MG Capsule TAKE 1 CAPSULE (10 MG TOTAL) BY MOUTH NIGHTLY. Oral Gabapentin 100 MG Capsule Oral Gabapentin 300 MG Capsule 1 capsule Orally Once a day Levothyroxine Sodium 50 MCG Tablet Oral Lisinopril 10 MG Tablet 1 tablet Orally AM Lisinopril 2.5 MG Tablet 1 tablet Orally HS Metoprolol Tartrate 25 MG Tablet Oral Spironolactone 25 MG Tablet Oral Trelegy Ellipta(Vyubseknxlh-Sinjwzmtq-Vlifmb) 100-62.5-25 MCG/ACT Aerosol Powder Breath Activated 1 puff Inhalation Once a day , Notes to Pharmacist: Rinse after useMedication List reviewed and reconciled with the patientTaking Albuterol Sulfate HFA 108 (90 Base) MCG/ACT Aerosol Solution 2 puffs as needed for SOB Inhalation Q4H Taking Diclofenac Sodium 75 MG Tablet Delayed Release Oral Taking FLUoxetine HCl 10 MG Capsule TAKE 1 CAPSULE (10 MG TOTAL) BY MOUTH NIGHTLY. Oral Taking Gabapentin 100 MG Capsule Oral Taking Gabapentin 300 MG Capsule 1 capsule Orally Once a day Taking Levothyroxine Sodium 50 MCG Tablet Oral Taking Lisinopril 10 MG Tablet 1 tablet Orally AM Taking Lisinopril 2.5 MG Tablet 1 tablet Orally HS Taking Metoprolol Tartrate 25 MG Tablet Oral Taking Spironolactone 25 MG Tablet Oral Taking Trelegy Ellipta(Mdnbfanyiew-Icijdqcvh-Sgcltw) 100-62.5-25 MCG/ACT Aerosol Powder Breath Activated 1 puff Inhalation Once a day , Notes to Pharmacist: Rinse after useMedication List reviewed and reconciled with the patient * Allergies: n o[Allergies Verified] Objective: * Vitals: * Examination: P odiatry Examination: SKIN: s kin intact, n o sign of infection. MUSCULOSKELETAL: P OP at anterior lateral ankle over the ATFL, A nterior drawer is guarded & positive, P OP along the peroneal tendons; circumduction of the foot elicits clicking of the peroneals however no sheba dislocation; E version strength against resistance is guarded. There is also pain on direct palpation over the lateral fibula over palpable plate. NEUROLOGICAL: l ight touch sensation intact, n egative tinel's sign. VASCULAR: P edal pulses are faintly palpable, C apillary refill is brisk to toe, D igital hair absent. X rays: xrays were obtained and reviewed in my office today. No fracture is noted. Mortise is congruent and joint space is preserved. Hardware over the fibula is stable. Assessment: * Assessment: 1. D isplaced fracture of lateral malleolus of right fibula, sequela - S82.61XS (Primary) ? 2 . O ther instability, right ankle - M25.371 3 . S train of muscle(s) and tendon(s) of peroneal muscle group at lower leg level, right leg, initial encounter - S86.311A 4 . O ther specified joint disorders, right ankle and foot - M25.871 & #160; 5 . C igarette nicotine dependence with nicotine-induced disorder - F17.219 6 . R ight ankle pain - M25.571 Plan: * Treatment: 2. R ight ankle pain I maging: XR Ankle RT (3 views) * (161) * Procedure Codes: * * Sign off status: Completed Visit Status: C HK (Check Out) true * Provider: Caroline Kinney DPM, MS Date: 0 11/23/[address] [facility]rod[facility]Mary Alice on: 0 04/14/2025 01:57 PM EDT History and Physical Notes * HPI (History of Present Illness) Category Sub-Category Detail Notes Category Not es General Patient in offi ce today complaining of right ankle pain. Majority of her pain is located in her lateral ankle. She states back in february of 2024 Dr. White did an MRI of her right ankle. It confrimed that she has a torn tendon. She states they did try a steroid injection and it did not help. Recently in September of 2024 the patient fell down her stairs and reinjured her ankle. She states she heard a popping sound after falling. She states her ankle feels unstable when walking. Sh has not trierd ankle bracing. Examination Category Sub-Category Detail Notes Category Not es Podiatry Examination SKIN: skin intact, no sign of infection Xrays: xrays were obtained and reviewed in my office today. No fracture is noted. Mortise is congruent and joint space is preserved. Hardware over the fibula is stable MUSCULOSKELETAL: POP at anterior late ral ankle over the ATFL, Anterior drawer is guarded & positive, POP along the peroneal tendons; circumduction of the foot elicits clicking of the peroneals however no sheba dislocation; Eversion strength against resistance is guarded. There is also pain on direct palpation over the lateral fibula over palpable plate NEUROLOGICAL: light touch sensatio n intact, negative tinel's sign VASCULAR: Pedal pulses are cathy ntly palpable, Capillary refill is brisk to toe, Digital hair absent
--- OUTSIDE RECORDS SUMMARY | 2024-12-23 06:20 | XMS_ITS ---
Author Organization [facility] in [place] Address [address] [place] [address] Care Team Providers Care Field Support Specialist Name Role Phone Alicia Daleyerie Primary Care Provider Cleopatraa Shakir [place]field [phone] Reason For Referral Reason referral for aundrea We have an old system that i will have to send ramon Diagnosis 1 Other instability, r ight ankle (M25.371) Referral Organization [facility] (PODIATRY) Referring Provider First Name Shakir Referring Provider Last Name Gregoria Referring Provider Speciality Podiatry Referred Provider Aundrea Burden Referred Provider Specialty Podiatry Referral Priority Routine REASON FOR VISIT referral Encounters Encounter Location Date Provider Diagnosis [facility] (POD[facility]) [address] [place] [address] [place] [address] 12/23/2024 Shakir Kinney Plan Of Treatment Referrals Referral Date Details 12/23/2024 12/23/2024, referral for aundrea We have an old system that i will have to send Aundrea navarro Next Appt Details Provider Name:Onesimo Spaulding, 06/29/2025 08:00:00 AM, [address] [place], [address], Progress Notes * Robyn NUNEZDOB:1955 (69 yo F)Acc No.[id number]:12/23/2024 Patient: Robyn LYNNE :1955 A ge:69 Y S ex:Female Address:[facility] [address], [place], [address] Subjective: * Chief Complaints: * R eferral * Medical History: * Surgical History: * Hospitalization/Major Diagno stic Procedure: * Medications: Objective: * Vitals: * Physical Examination: Assessment: Plan: * Treatment: * Procedure Codes: * true * Date: Generated for Leo chaidez/Brodie/Toriesmitting on: 0 04/14/2025 01:58 PM EDT Consultation Request Notes Referral Date Referring Provider Referred Provider Not es 12/23/2024 Shakir Kinney Lance referral for aundrea We have an old system that i will have to send ramon
--- OUTSIDE RECORDS SUMMARY | 2025-04-14 13:56 | XMS_ITS | Encounter Summary ---
Author Organization [employer] Address [id number] [address] [place] [address] Care Team Providers Care Director Network Development Name Role Phone Emmie Daley PLANT CHANGER-SECOND MILLER Primary Care Provid er Encounter Details Date Type Department Care Team ([facility] Contact Info) Description 08/09/2022 Orders Only [facility] [address] [place] [address] [place] [address] Vianey Miranda CMA Flank pain; History of kidney stones Social History Tobacco Use Types Packs/Day Years Used Date Smoking Tobacco: Every Day Cigarettes 0.5 56 Smokeless Tobacco: Never Alcohol Use Standard Drinks/Week Comments Yes 0 (1 standard drink = 0.6 oz pur e alcohol) on weekends, not often. PHQ-2 Answer Date Recorded Total Score 0 07/30/2022 Childcare Answer Date Recorded Childcare Unknown 03/31/2019 Employment Answer Date Recorded Employment Unknown 03/31/2019 Comments Unknown Sex and Gender Information Value Date Recorded Sex Assigned at Not on file Legal Sex Female 10:24 AM EST Gender Identity Not on file Sexual Orientation Not on file COVID-19 Exposure Response Date Recorded In the last month, have you been in contact with someone who was confirmed or suspected to have Coronavirus / COVID-19? No / Unsure 07/30/2022 8:11 AM EDT documented as of this encounter Plan of Treatment Upcoming Encounters Date Type Department Care Team ([facility] Contact Info) Description 05/18/2025 1:00 PM EDT Office Visit [facility] [address] [place] [phone] Emmie Daley APRN-CNP [address] [place] [address] documented as of this encounter Procedures Procedure Name Priority Date/Time Associated Diagnosis Comments CT ABDOMEN AND PELVIS WO CONT Routine 08/09/2022 12:55 PM EDT Flank pain History of kidney stones documented in this encounter Results * CT abdomen and pelvis without contrast (08/09/2022 12:55 PM EDT) Anatomical Region Laterality Modality Body, Abdomen, Body Covera N/A Compu neel Tomography us Emmie URBINA IMG CT ORDERABLES Fi nal Result documented in this encounter Visit Diagnoses Diagnosis Flank pain Abdominal pain, unspecified site History of kidney stones documented in this encounter Additional Health Concerns Assessment Noted Time PHQ-9 Depression Total Score: 0 07/30/20 8:12 AM EDT A Body Mass Index follow-up plan has been documented for the patient 07/09/2022 5:59 PM EDT documented as of this encounter Care Teams Director Network Development Relationship Specialty Start Date End Date Emmie Daley APRN-CNP [address] [place] [address] PCP - General Family Medicine 02/20/22 documented as of this encounter
--- OUTSIDE RECORDS SUMMARY | 2025-04-14 13:56 | XMS_ITS | Encounter Summary ---
Author Organization [facility] Address [id number] [address] [place] [address] Care Team Providers Care Intelligence Engineer Name Role Phone Emmie Daley FIELD PIPELINES SUPERVISOR-PATROL DEPUTY SHERIFF Primary Care Provid er Reason for Visit * Reason Comments Med Refill Encounter Details Date Type Department Care Team (Late st Contact Info) Description 05/25/2022 Refill [facility] [address] [place] [address] Emmie Daley, FIELD PIPELINES SUPERVISOR-PATROL DEPUTY SHERIFF [address] [place] [phone] Arthritis, multiple joint involvement; Chest wall pain; Chronic pain of right hip; Fibromyalgia; Graves disease; Benign essential HTN Social History Tobacco Use Types Packs/Day Years Used Date Smoking Tobacco: Every Day Cigarettes 0.5 56 Smokeless Tobacco: Never Alcohol Use Standard Drinks/Week Comments Yes 0 (1 standard drink = 0.6 oz pur e alcohol) on weekends, not often. PHQ-2 Answer Date Recorded Total Score 0 05/16/2022 Childcare Answer Date Recorded Childcare Unknown 03/31/2019 [...] have Coronavirus / COVID-19? No / Unsure 05/15/2022 4:38 PM EDT documented as of this encounter Plan of Treatment Upcoming Encounters Date Type Department Care Team (Late st Contact Info) Description 05/18/2025 1:00 PM EDT Office Visit [facility] [address] [place] [phone] Emmie Daley APRN-PATROL DEPUTY SHERIFF [address] [place] [address] documented as of this encounter Visit Diagnoses Diagnosis Arthritis, multiple joint involvement Unspecified arthropathy, multiple sites Chest wall pain Painful respiration Chronic pain of right hip Fibromyalgia Unspecified myalgia and myositis Graves disease Toxic diffuse goiter without mention of thyrotoxic crisis or storm Benign essential HTN documented in this encounter Additional Health Concerns Assessment Noted Time PHQ-9 Depression Total Score: 0 05/16/20 1:34 PM EDT A Body Mass Index follow-up plan has been documented for the patient 05/16/2022 4:24 PM EDT documented as of this encounter Care Teams Intelligence Engineer Relationship Specialty Start Date End Date Emmie Daley, NADEEM-PATROL DEPUTY SHERIFF [address] [place] [address] PCP - General Family Medicine 02/20/22 documented as of this encounter
--- OUTSIDE RECORDS SUMMARY | 2025-04-14 13:56 | XMS_ITS | Clinical Summary ---
Author Organization [facility] Address [id number] [address] [place] [address] Care Team Providers Care Product Manager E Commerce Name Role Phone Emmie Daley [employer] Primary Care Provid er Allergies Active Allergy Reactions Criticality Noted Date Comments Bee Venom Protein (Honey Bee) 2021 Lisinopril Cough 07/03/2023 Adhesive Rash Low 01/27/2013 Medications nitroglycerin (NITROSTAT) 0.4 MG SL tablet as directed Sublingual Active albuterol (PROVENTIL HFA;VENTOLIN HFA) 90 mcg/actuation inhalerIndications :Chronic bronchitis with emphysema ([facility]) Inhale 2 puffs every 4 (four) hours as needed for wheezing or shortness of breath. 18 g 6 4 Active losartan (COZAAR) 100 mg tabletIndications: Benign essential HTN Take 1 tablet (100 mg total) by mouth in the morning. 90 tablet 3 5 026 Active diclofenac (VOLTAREN) 75 mg EC tabletIndications: Arthritis, multiple joint involvement Take 1 tablet (75 mg total) by mouth in the morning and 1 tablet (75 mg total) before bedtime. TAKE 1 TABLET BY MOUTH IN THE MORNING AND 1 TABLET BEFORE BEDTIME. For pain.. 180 tablet 1 5 Active gabapentin (NEURONTIN) 100 mg capsuleIndications :Fibromyalgia TAKE 1 CAPSULE BY MOUTH EVERY MORNING AND AFTERNOON 180 capsule 1 5 Active gabapentin (NEURONTIN) 300 mg capsuleIndications :Fibromyalgia Take 1 capsule (300 mg total) by mouth nightly. 90 capsule 1 5 Active levothyroxine (SYNTHROID, LEVOTHROID) 25 MCG tabletIndications: Acquired hypothyroidism Take 1 tablet (25 mcg total) by mouth in the morning. 90 tablet 2 5 Active metoprolol tartrate (LOPRESSOR) 25 mg tabletIndications: Benign essential HTN TAKE 1 TABLET IN THE MORNING AND 1 TABLET BEFORE BEDTIME Strength: 25 mg 180 tablet 1 5 Active spironolactone (ALDACTONE) 25 mg tabletIndications: Benign essential HTN Take 1 tablet (25 mg total) by mouth in the morning. 90 tablet 3 5 026 Active traZODone (DESYREL) 150 mg tabletIndications: Primary insomnia Take 1 tablet (150 mg total) by mouth nightly. 90 tablet 1 5 Active TRELEGY ELLIPTA 100-62.5-25 mcg blister with deviceIndications: Chronic bronchitis with emphysema (CMS-HCC) INHALE 1 PUFF BY MOUTH EVERYDAY *RINSE MOUTH AFTER USE* Strength: 100-62.5-25 mcg 28 each 6 5 Active traMADoL (ULTRAM) 50 mg tabletIndications: Arthritis, multiple joint involvement,Fibrom yalgia Take 1 tablet (50 mg total) by mouth every 6 (six) hours as needed for pain. 40 tablet 5 Active Active Problems Problem Noted Date Diagnosed Date Cervical spondylosis without myelopathy 08/20/20 23 Spondylosis without myelopat hy or radiculopathy, lumbar region 08/20/2023 Bone cyst 05/23/2023 Overview (08/20/2023): In January 2013 reports 3 year history of slowly enlarging mass in the mouth that has become more bothersome recently, because her upper dentures no longer fit. She reports pain in the area, but no trismus and no weight loss. 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 Intermittent palpitations 05/23/2023 Overview (08/20/2023): Last Assessment & Plan: Stable with metoprolol Tobacco dependence 05/23/2023 Overview (08/20/2023): Last Assessment & Plan: Tobacco use is unchanged- pt is not willing to quit smoking at this time Renal calculus 01/20/2023 Arthritis of left knee 11/11/2022 Chronic pain disorder 11/11/2022 Fibromyalgia 11/11/2022 Lumbar post-laminectomy syndrome 11/11/2022 Chondromalacia patellae of left knee 11/11/2022 Internal derangement of left knee 11/11/2022 Sensorineural hearing loss ( SNHL) of left ear with unrestricted hearing of right ear 11/11/2022 Obesity, morbid 11/11/2022 Deafness in left ear 04/01/2022 Overview (04/01/2022): lifelong Smoking 04/01/2022 Overview (04/01/2022): Last Assessment & Plan: I spent 5 minutes counseling-encouraging her in smoking cessation. Mitral valve regurgitation 06/14/2021 Graves' disease 05/25/2020 Essential hypertension 11/10/2019 Atypical chest pain 05/19/2018 Overview (08/20/2023): Last Assessment & Plan: Stable ADD (attention deficit disorder) 02/06/2012 Insomnia 02/06/2012 Resolved Problems Problem Noted Date Diagnosed Date Resolved Date Panlobular emphysema 12/11/2023 025 Chronic bronchitis with emphysema 04/01/2022 11/03/2024 Overview (04/01/2022): Last Assessment & Plan: She has a 40-year smoking history. At the time of my evaluation, her peak exhalatory flow was 280 L/minute and her transdermal arterial pulse oximetry while breathing ambient air at rest was 98% when she was seated. Additional pulmonary testing is not indicated at this time. I instructed her to inhale her tiotropium (Spiriva) every morning, including on the morning of surgery. In the postoperative period continue to treat her with incentive spirometry hourly when awake and continue tiotropium inhaled QAM. Treat her with additional inhaled bronchodilators and supplemental inhaled oxygen if clinically indicated. Encounters Date Type Department Care Team Description 02/11/2025 Telephone [facility] [address] [place] [address] Sandra Zuleta CMA 02/09/2025 Orders Only [facility] [address] [place] [address] Ref Prov, Not In System from Last 3 Months Immunizations Immunization Administration Dates Next Due Influenza Vaccine, Quadrivalent, Adjuvanted 10/2022,07/30/2022 Influenza, Trivalent, Adjuvanted 08/10/2024 Pneumococcal Conjugate 10/02/2022 Pneumococcal Conjugate 20-valent 10/02/2022 Family History Medical History Relation Name Comments Cancer Brother Diabetes Daughter 1 Kidney failure Daughter 1 Heart disease Father Leukemia Father Cancer Mother Heart disease Mother Kidney disease Mother Relation Name Status Comments Brother Daughter 1 Alive Daughter 2 Alive Father Mother Social History Tobacco Use Types Packs/Day Years Used Date Smoking Tobacco: Every Day Cigarettes 0.5 56 Smokeless Tobacco: Never Tobacco Cessation:Ready to Q uit: Not Asked; Counseling Given: Not Answered Alcohol Use Standard Drinks/Week Comments Yes 0 (1 standard drink = 0.6 oz pur e alcohol) on weekends, not often. PHQ-2 Answer Date Recorded Total Score 0 12/16/2024 Childcare Answer Date Recorded Childcare Unknown 03/31/2019 Employment Answer Date Recorded Employment Unknown 03/31/2019 Hunger Screening Answer Date Recorded Within the past 12 months we worried whether our food would run out before we got money to buy more. Never True 12/16/2024 Within the past 12 months th e food we bought just didn't last and we didn't have money to get more. Never True 12/16/2024 Comments Unknown Sex and Gender Information Value Date Recorded Sex Assigned at Not on file Legal Sex Female 10:24 AM EST Gender Identity Not on file Sexual Orientation Not on file Last Filed Vital Signs Vital Sign Reading Time Taken Comments Blood Pressure 138/80 12/16/2024 1:34 PM EST Pulse 80 12/16/2024 1:34 PM EST Temperature 36.4 C (97.6 F) 12/16/2024 1:34 PM EST Respiratory Rate 20 12/16/2024 1:34 PM EST Oxygen Saturation 98% 12/16/2024 1:34 PM EST Inhaled Oxygen Concentration - - Weight 96.5 kg (212 lb 11.2 oz) 12/16/2024 1:34 PM EST Height 160 cm (5' 2.99 ) 12/16/2024 1:34 PM EST Body Mass Index 37.69 12/16/2024 1:34 PM EST Plan of Treatment Upcoming Encounters Date Type Department Care Team (Late st Contact Info) Description 05/18/2025 1:00 PM EDT Office Visit [facility] [address] [place] [id number] Emmie Daley, [employer]PLIANCES SAL[employer]ERSON[employer] [address] [place] [address] Health Maintenance Due Date Last Done Comments Tobacco Counseling 1955 DTaP,Tdap and Td Vaccines (1 - Tdap) 1975 Colonoscopy 2001 Zoster (Shingles) Vaccine (1 of 2) 2006 Mammogram 08/13/2023 08/13/2022 COVID-19 Vaccine (6 - 2023-2 5 season) 2025 07/29/2024, 08/14/2022, 01/13/2022, Additional history exists Influenza Vaccine 06/20/2025 08/10/2024, , 08/20/2023, Additional history exists Medicare Annual Wellness Visit 09/13/2025 1 11/13/2023, 08/20/2023, 07/30/2022 Adult BMI Follow Up Plan 12/16/2025 12/16/2024 Adult BMI Screening 12/16/2025 12/16/2024 Depression Screening 12/16/2025 12/16/2024 Fall Risk Screening 12/16/2025 12/16/2024 Tobacco Screening 12/16/2025 12/16/2024 Medical Devices Not on file Procedures Procedure Name Priority Date/Time Associated Diagnosis Comments STRESS TEST (EXERCISE ONLY) Routine 01/21/2025 9:37 AM EDT MAMM SCREENING BILATERAL W CAD Routine 08/13/2022 Encounter for screening mammogram for malignant neoplasm of breast from Last 3 Months or Most Recently Relevant to Health Maintenance Results * Stress test (exercise only) (01/21/2025 9:37 AM EDT) Anatomical Region Laterality Modality Chest N/A Other us Not In System Ref Prov CV STRESS ORDERABLES Nida l Result * Mammography screening bilateral with CAD (08/13/2022) Anatomical Region Laterality Modality Breast Bilateral Mammography 08/13/2022 us Emmie Daley [employer]GICAL [employer]ES [employer] IMG MAMMOGRAPHY ORDE RABLES Final Result from Last 3 Months or Most Recently Relevant to Health Maintenance Insurance MEDICAID [place] [employer] MEDICARE Care Teams Product Manager E Commerce Relationship Specialty Start Date End Date Emmie Daley, [employer] [address], [place] [address] PCP - General Family Medicine 02/20/22
--- OUTSIDE RECORDS SUMMARY | 2025-04-14 13:56 | XMS_ITS | Patient Health Record ---
Author Organization [facility] Address [address] [place] [address] Care Team Providers Care Scanning Manager Name Role Phone JAIRO OCHOA Primary Care Provider Unavail able Michi Drake Unavailable [phone] SamaniegoKarthik cornejo Unavailable [phone] YeniferTrish lopez Unavailable [phone] Allergies Allergen (clinical drug ingredient) Drug/Non Drug Allergy documented on EMR Reaction Allergy Type Onset Date Status latex/surgical tape (uncoded) Unknown Allergy Active Reason For Referral No Information Medications Medication SIG (Take, Route, Fr equency, Duration) Notes Start Date End Date Status Medrol Dosepak 4 mg as directed 07/26/2024 Active Social History Tobacco Use: Social History Observation Description Date Details (start date - stop date) Current Smoker NA - NA Smoking History Question Answer Notes Smoking Status Current Smoker AUDIT-C (Standard) Question Answer Notes Did you have a drink containing alcohol in the p ast year? No Points 0 Interpretation Negative Problems Problem Type SNOMED Code ICD Code Onset Dates Problem Status W/U Status Risk Notes Problem Spondylosis without myelopathy or radiculopathy, cervical region (M47.812) Active confirmed Problem 752891904 Spondylosis without myelopathy or radiculopathy, lumbar region (M47.816) Active confirmed Problem 43545867 Other extraarticular fracture of lower end of right radius, subsequent encounter for closed fracture with routine healing (S52.551D) Active confirmed Problem Osteoarthritis of knee (164241223) Primary osteoarthritis of right knee (M17.11) Active confirmed Problem 02511475 Other closed extra-articular fracture of distal end of right radius, initial encounter (S52.551A) Active confirmed Vital Signs Height 5'2 in 07/26/2024 Weight 210 lbs 07/26/2024 BMI 38.41 07/26/2024 Encounters Encounter Location Date Provider Diagnosis [facility] [address] [place] [address] [place] [address] 04/26/2024 Michi Drake Other closed extra-articular fracture of distal end of right radius, initial encounter S52.551A [facility] [address] [place] [address] [place] [address] 05/03/2024 Michi Drake Other closed extra-articular fracture of distal end of right radius, initial encounter S52.551A [facility] [address] [place] [address] [place] [address] 05/10/2024 Trish Le Other extraarticular fracture of lower end of right radius, subsequent encounter for closed fracture with routine healing S52.551D [address] [place] [address] 06/07/2024 Trish Le Other extraarticular fracture of lower end of right radius, subsequent encounter for closed fracture with routine healing S52.551D [facility] [address] [place] [address] [place] [address] 07/05/2024 Michi Drake Other extraarticular fracture of lower end of right radius, subsequent encounter for closed fracture with routine healing S52.551D [facility] [address] [place] [address] [place] [address] 07/26/2024 Trish Babakalonso Primary osteoarthritis of right knee M17.11 [facility] [address] [place] [address] [place] [address] 08/16/2024 Karthik Sam[place] Primary osteoarthrit is of right knee M17.11 Assessments Encounter Date Diagnosis (ICD Code) Assessment Notes Treatment Notes Treatment Clinical Notes Section Notes 04/26/2024 Other closed extra-articular fracture of distal end of right radius, initial encounter (ICD-10 - S52.551A) 05/03/2024 Other closed extra-articular fracture of distal end of right radius, initial encounter (ICD-10 - S52.551A) 05/10/2024 Other extraarticular fracture of lower end of right radius, subsequent encounter for closed fracture with routine healing (ICD-10 - S52.551D) 06/07/2024 Other extraarticular fracture of lower end of right radius, subsequent encounter for closed fracture with routine healing (ICD-10 - S52.551D) 07/05/2024 Other extraarticular fracture of lower end of right radius, subsequent encounter for closed fracture with routine healing (ICD-10 - S52.551D) 07/26/2024 Primary osteoarthritis of right knee (ICD-10 - M17.11) Right knee osteoarthritis 08/16/2024 Primary osteoarthritis of right knee (ICD-10 - M17.11) Right knee OA 04/26/2024 Other For her right distal radius fracture she was placed in a short arm cast today in clinic. Follow-up in 1 week to repeat x-rays in the cast and reassess her progress. Import medication 05/03/2024 Other She will follow-up in 1 week to repeat x-rays in the cast and reassess her progress. She will then follow-up 4 weeks later for cast removal and repeat x-rays. Import medication 05/10/2024 Other Patient is samreenprasad diana well in her short arm cast. I will have her return in 4 weeks to remove the cast and repeat x-rays of the wrist. 06/07/2024 Other Today I discussed with the patient that she will need to start stretching and working on her flexion/extensio n ROM. She denies need for occupational therapy and would like to do a home exercise program at home. I have ordered a right cock up wrist brace for her to wear with activity. She will follow-up in 4 weeks to repeat x-rays and reassess her progress. 07/05/2024 Other Patient is doing well. She will follow-up on an as-needed basis. Import medication 07/26/2024 Other Today I discussed various treatments for the patient's right knee osteoarthritis including rest, activity modification, NSAIDs, corticosteroid injections, and viscosupplementa tion. Patient would like to wait to get a corticosteroid injection. I did prescribe a Medrol Dosepak to try and help her inflammation and she is agreeable to this. She does have a heart history and is in between cardiologists at this point, but I did talk to her about discussing NSAID use with her PCP in the meantime. She will take Tylenol in the meantime as needed. We will have her follow-up in 6 weeks to reassess her progress and did discuss doing a possible corticosteroid injection at that time. Right knee osteoarthritis 08/16/2024 Other I discussed today with the patient regarding her right knee pain. Her x-rays do not appear to have severe arthritis. We did discuss treatment options. She is currently smoking therefore total knee arthroplasty is out of the picture. Also has severe COPD and unsure if she was cleared for surgery. Will start with a corticosteroid injection. Follow-up in 3 months and work on smoking smoking cessation Right knee OA Plan Of Treatment Pending Test Test Name Order Date SCC- KNEE 4 VIEW RIGHT [id number] 07/26/2024 SCC- WRIST 3 VIEW RIGHT [id number] 05/03/2024 SCC- WRIST 3 VIEW RIGHT [id number] 05/10/2024 SCC- WRIST 3 VIEW RIGHT [id number] 06/07/2024 SCC- WRIST 3 VIEW RIGHT [id number] 07/05/2024 Insurance Providers Payer Name Payer Address Payer Phone Subscriber Number Group Number Insured Name Patient Relationship to Insured Coverage Start Date Coverage End Date MEDICARE UHC DUAL COMPLETE [address] [place] [address] [id number] [facility] FRANKO NUNEZ Self - patient is the insured [facility] [address] [place] [address] [id number] ENRIQUEFRANKO Self - patient is the insured Medicare [facility] [address] [place]ETTE QURESHI [phone] [id number] FRANKO NUNEZ Self - patient is the insured 4 Medical (General) History Medical History History ICD Code Latex Allergy Asthma Cancer Kidney trouble High Blood Pressure
--- OUTSIDE RECORDS SUMMARY | 2025-04-14 13:56 | XMS_ITS | Referral Summary ---
Author Organization [facility] Address [address] [place] [address] Care Team Providers Care Carpet Installer Helper Name Role Phone Emmie Daley MD Primary Care Provider [phone] Allergies Active Allergy Reactions Criticality Noted Date Comments Adhesive Rash Low 01/27/2013 Bee Venom Protein (Honey Bee) Anaphylaxis High 01/27/2013 Other reaction(s): Not available Lisinopril Cough 07/03/2023 Medications albuterol 90 mcg/actuation inhaler TAKE TWO PUFFS BY MOUTH EVERY 6 HOURS NEEDED Active EPINEPHrine 0.3 mg/0.3 mL auto-injector USE DIRECTED FOR BEE STINGS 3 Active fluticasone-umec lidin-vilanter 100-62.5-25 mcg blister with device INHALE 1 PUFF BY MOUTH EVERYDAY *RINSE MOUTH AFTER USE* 3 Active metoprolol tartrate (Lopressor) 25 mg tablet Take 1 tablet by mouth in the morning and at bedtime. 1 Active nitroglycerin (Nitrostat) 0.4 mg SL tablet DISSOLVE 1 TABLET UNDER TONGUE NEEEDED Active traMADol (Ultram) 50 mg tablet TAKE 1 TABLET BY MOUTH EVERY 8 HOURS NEEDED FOR PAIN FOR UP TO 5 DAYS. 3 Active traZODone (Desyrel) 150 mg tablet Take 1 tablet by mouth at bedtime. 3 Active gabapentin (Neurontin) 100 mg capsule Take 100 mg by mouth in the morning and at bedtime. Active gabapentin (Neurontin) 300 mg capsule Take 300 mg by mouth at bedtime. Active FLUoxetine (PROzac) 10 mg capsule Take 10 mg by mouth in the morning. Active diclofenac (Voltaren) 75 mg EC tablet Take 75 mg by mouth in the morning and at bedtime. Do not crush, chew, or split. Active propylthiouracil (PTU) 50 mg tablet Take 50 mg by mouth in the morning, at noon, and at bedtime. Active spironolactone (Aldactone) 25 mg tabletIndication s:Nonrheumatic mitral valve regurgitation,Be nign essential HTN Take 1 tablet (25 mg) by mouth in the morning. 90 tablet 3 3 Active lisinopril 10 mg tabletIndication s:Uncontrolled hypertension Take 1 tablet (10 mg) by mouth in the morning. 30 tablet 5 3 Active Additional Information Patient not taking.Reported on 11/17/2023 losartan (Cozaar) 25 mg tabletIndication s:Benign hypertensive heart disease with heart failure (CMS/HCC) Take 1 tablet (25 mg) by mouth once daily as directed. 90 tablet 3 3 Active Active Problems Problem Noted Date Diagnosed Date Uncontrolled hypertension 06/02/2023 Assessment & Plan (06/10/2023 11:26 AM EDT): Increase lisinopril to 5 mg daily Continue monitoring b/p at home and staff to call in 1-2 weeks to review b/p If remains > 130/80 may transition metoprolol to coreg Assessment & Plan (06/02/2023 7:59 AM EDT): Hypertension is uncontrolled with pt reporting very elevated B/p in the mornings despite starting aldactone. Will add lisinopril in the pm daily for better HTN management Mitral valve regurgitation 05/23/2023 Overview (05/23/2023): Mild to mod per 04/26/21 ECHO Assessment & Plan (06/10/2023 11:26 AM EDT): Echo reviewed with pt and noted Mod MV regurg Assessment & Plan (05/23/2023 1:00 PM EDT): Repeat echo ordered in light of SOB with exertion and MR noted on prior echo Intermittent palpitations 05/23/2023 Assessment & Plan (05/23/2023 1:01 PM EDT): Stable with metoprolol Atypical chest pain 05/23/2023 Assessment & Plan (05/23/2023 1:00 PM EDT): Stable Benign essential HTN 05/23/2023 Assessment & Plan (06/10/2023 11:25 AM EDT): Hypertension is uncontrolled Increase lisinopril to 5 mg daily Continue metoprolol, aldactone and check BMP in 1 week to monitor renal function D/W pt about HTN with voltaren and she is not willing to stop at this time. Assessment & Plan (05/23/2023 1:00 PM EDT): Hypertension is elevated continue all meds and will add aldactone to regime Repeat BMP in 1 week to assess renal function and electrolytes and pt voiced understanding Tobacco dependence 05/23/2023 Assessment & Plan (05/23/2023 1:01 PM EDT): Tobacco use is unchanged- pt is not willing to quit smoking at this time Uncomplicated alcohol dependence 05/23/2023 Assessment & Plan (05/23/2023 1:01 PM EDT): F/u with PCP Bone cyst 05/23/2023 05/23/2023 Overview (05/23/2023): In January 2013 reports 3 year history of slowly enlarging mass in the mouth that has become more bothersome recently, because her upper dentures no longer fit. She reports pain in the area, but no trismus and no weight loss. 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 History of cervical cancer 05/23/202305/23 Overview (05/23/2023): resected Renal calculus 01/20/2023 05/23/2023 Arthritis of left knee 11/11/2022 Internal derangement of left knee 11/11/2022 05/23/2023 Chondromalacia patellae of left knee 11/11/2022 05/23/2023 Chronic pain disorder 11/11/2022 05/23/2023 Fibromyalgia 11/11/2022 05/23/2023 Lumbar post-laminectomy syndrome 11/11/2022 05/23/2023 Obesity, morbid 11/11/2022 05/23/2023 Sensorineural hearing loss ( SNHL) of left ear with unrestricted hearing of right ear 11/11/2022 05/23/2023 Chronic bronchitis with emphysema 04/01/2022 05/23/2023 Overview (05/23/2023): Last Assessment & Plan: She has a [...] and supplemental inhaled oxygen if clinically indicated. Last Assessment & Plan: She has a [...] and supplemental inhaled oxygen if clinically indicated. Deafness in left ear 04/01/2022 05/23/2023 Overview (05/23/2023): lifelong lifelong Smoking 04/01/2022 05/23/2023 Overview (05/23/2023): Last Assessment & Plan: I spent 5 minutes counseling-encouraging her in smoking cessation. Last Assessment & Plan: I spent 5 minutes counseling-encouraging her in smoking cessation. Graves' disease 05/25/2020 05/23/2023 Essential hypertension 11/10/2019 Chest pain 05/19/2018 05/23/2023 ADD (attention deficit disorder) 02/06/2012 05/23/2023 Insomnia 02/06/2012 05/23/2023 Tobacco abuse 02/06/2012 05/23/2023 Immunizations Immunization Administration Dates Next Due Influenza, Seasonal, Quadrivalent, Adjuvanted Moderna SARS-CoV-2 Vaccination 01/13/2022 Pneumococcal Conjugate PCV 20 10/02/2022 Social History Tobacco Use Types Packs/Day Years Used Date Smoking Tobacco: Every Day Cigarettes Smokeless Tobacco: Never Tobacco Cessation:Ready to Q uit: Not Asked; Counseling Given: Not Answered Alcohol Use Standard Drinks/Week Comments Yes 0 (1 standard drink = 0.6 oz pur e alcohol) moderate [place] Safety & Environment Answer Date Rec orded Fear of Current or Ex-Partner Not on file Emotionally Abused Not on file 12/11/2023 Physically Abused Not on file 12/11/2023 Sexually Abused Not on file 12/11/2023 Physically or Sexually Abused Not on file Comments Unknown Sex and Gender Information Value Date Recorded Sex Assigned at Not on file Legal Sex Female 11:52 PM EDT Gender Identity Not on file Sexual Orientation Not on file Last Filed Vital Signs Vital Sign Reading Time Taken Comments Blood Pressure 142/72 11/17/2023 10:32 AM EST Pulse 63 11/17/2023 10:32 AM EST Temperature - - Respiratory Rate - - Oxygen Saturation 94% 11/17/2023 10:32 AM EST Inhaled Oxygen Concentration - - Weight 92.1 kg (203 lb) 11/17/2023 10:32 AM EST Height 158.8 cm (5' 2.5 ) 11/17/2023 10:32 AM ES T Body Mass Index 36.54 11/17/2023 10:32 AM EST Plan of Treatment Not on file Insurance [employer] MEDICARE Care Teams Carpet Installer Helper Relationship Specialty Start Date End Date Emmie Daley MD PCP - General Family Medicine 05/23/23
--- OUTSIDE RECORDS SUMMARY | 2025-04-14 13:56 | XMS_ITS | Encounter Summary ---
Author Organization [employer] s tem Address [id number] [address] [place] [address] Care Team Providers Care Floor Grinder Name Role Phone Emmie Daley TRANSPORTATION DEPARTMENT SUPERVISOR-RESIST COATER DEVELOPER Primary Care Provid er Encounter Details Date Type Department Care Team ([facility] Contact Info) Description 06/27/2022 Orders Only [facility] [address] [place] [phone] Ref Prov, [place] [address] Social History Tobacco Use Types Packs/Day Years [...] have Coronavirus / COVID-19? No / Unsure 06/03/2022 2:39 PM EDT documented as of this encounter Plan of Treatment Upcoming Encounters Date Type Department Care Team ([facility] Contact Info) Description 05/18/2025 1:00 PM EDT Office Visit [facility] - Family Medicine [address] [place] [phone] Emmie Daley, TRANSPORTATION DEPARTMENT SUPERVISOR-RESIST COATER DEVELOPER [address] [place] [address] documented as of this encounter Procedures Procedure Name Priority Date/Time Associated Diagnosis Comments ECHO DOPPLER Routine 06/26/2022 documented in this encounter Results * Echo Doppler (06/26/2022) Anatomical Region Laterality Modality Chest N/A Ultrasound us Not In System Ref Prov CV ECHO ORDERABLES Final Result documented in this encounter Visit Diagnoses Not on filedocumented in this encounter Additional Health Concerns Assessment Noted Time PHQ-9 Depression Total Score: 0 05/16/20 22 1:34 PM EDT A Body Mass Index follow-up plan has been documented for the patient 06/05/2022 12:55 PM EDT documented as of this encounter Care Teams Floor Grinder Relationship Specialty Start Date End Date Emmie Daley, TRANSPORTATION DEPARTMENT SUPERVISOR-RESIST COATER DEVELOPER [address] [place] [address] PCP - General Family Medicine 02/20/22 documented as of this encounter
--- OUTSIDE RECORDS SUMMARY | 2025-04-14 13:56 | XMS_ITS | Encounter Summary ---
Author Organization [employer] s tem Address [id number] [address] [place] [address] Care Team Providers Care Sas Analyst Name Role Phone Emmie Daley CERTIFIED MEDICAL ASSISTANT-SWAGER OPERATOR Primary Care Provid er Encounter Details Date Type Department Care Team ([facility] Contact Info) Description 02/09/2025 [facility] Only [facility] [address] [place] [address] Ref Prov, [place] [address] Social History Tobacco Use Types Packs/Day Years [...] on file Sexual Orientation Not on file documented as of this encounter Plan of Treatment Upcoming Encounters Date Type Department Care Team ([facility] Contact Info) Description 05/18/2025 1:00 PM EDT Office Visit [facility] - Family Medicine [address] [place] [phone] Emmie Daley APRN-SWAGER OPERATOR [address] [place] [address] documented as of this encounter Procedures Procedure Name Priority Date/Time Associated Diagnosis Comments STRESS TEST (EXERCISE ONLY) Routine 01/21/2025 9:37 AM EDT documented in this encounter Results * Stress test (exercise only) (01/21/2025 9:37 AM EDT) Anatomical Region Laterality Modality Chest N/A Other us Not In System Ref Prov CV STRESS ORDERABLES Nida l Result documented in this encounter Visit Diagnoses Not on filedocumented in this encounter Additional Health Concerns Assessment Noted Time PHQ-9 Depression Total Score: 0 12/16/19 25 1:30 PM EST A Body Mass Index follow-up plan has been documented for the patient 12/16/2024 2:22 PM EST documented as of this encounter Care Teams Sas Analyst Relationship Specialty Start Date End Date Emmie Daley, CERTIFIED MEDICAL ASSISTANT-SWAGER OPERATOR [address] [facility] [place] [address] PCP - General Family Medicine 02/20/22 documented as of this encounter
--- OUTSIDE RECORDS SUMMARY | 2025-04-14 13:56 | XMS_ITS | Encounter Summary ---
Author Organization [employer] Address [id number] [address] [place] [address] Care Team Providers Care Precinct Commanding Officer Name Role Phone DaleyAlicia doeerie Rick DYNAMICS AX TECHNICAL ARCHITECT-CALENDER LET OFF OPERATOR Primary Care Provid er Encounter Details Date Type Department Care Team (Late st Contact Info) Description 06/19/2022 Telephone [facility] [address] [facility] [place] [phone] Vianey Miranda CMA Social History Tobacco Use Types Packs/Day Years [...] PM EDT documented as of this encounter Miscellaneous Notes * Telephone Encounter - Vianey Miranda CMA - 06/19/2022 8:29 AM EDT Pt called, and said she was just sitting on her chair, no abd pain or anything, and she soiled herself, said it looked black, and almost like blood. I notified pt she should immediately report to ED for further evaluation. * Telephone Encounter - CARLITOS Haas - 06/19/2022 8:29 AM EDT Yes, this is correct. documented in this encounter Plan of Treatment Upcoming Encounters Date Type Department Care Team (Late st Contact Info) Description 05/18/2025 1:00 PM EDT Office Visit [facility] - Family Medicine [address] [place] [phone] Emmie Daley APRN-CNP [address] [place] [address] documented as of this encounter Visit Diagnoses Not on filedocumented in this encounter Additional Health Concerns Assessment Noted Time PHQ-9 Depression Total Score: 0 05/16/20 22 1:34 PM EDT A Body Mass Index follow-up plan has been documented for the patient 06/05/2022 12:55 PM EDT documented as of this encounter Care Teams Precinct Commanding Officer Relationship Specialty Start Date End Date Emmie Daley APRN-CNP [address] [place] [address] PCP - General Family Medicine 02/20/22 documented as of this encounter
--- OUTSIDE RECORDS SUMMARY | 2025-04-14 13:56 | XMS_ITS | Clinical Summary ---
Author Organization [facility] Address [address] [place] [address] Care Team Providers Care Water Vessel Captain Name Role Phone Emmie Daley Unavailable [phone] Unallocated, [facility] Provider MD Primary Care Provi nabeel Allergies Active Allergy Reactions Criticality Noted Date Comments Attends Briefs Small Rash Low 01/27/2013 Bee Venom Anaphylaxis High 01/27/2013 Other reaction(s): Not available Lisinopril Cough 07/03/2023 Medications albuterol HFA 90 mcg/act inhaler TAKE TWO PUFFS BY MOUTH EVERY 6 HOURS NEEDED 03/03/2023 Active EPINEPHrine (Epipen) 0.3 MG/0.3ML injection syringe USE DIRECTED FOR BEE STINGS 01/16/2023 Active gabapentin (Neurontin) 300 MG capsule Take 300 mg by mouth at bedtime 08/20/2023 Active lisinopril 10 MG tablet Take 10 mg by mouth in the morning. 06/25/2023 Active losartan (Cozaar) 25 MG tablet Take 25 mg by mouth 07/03/2023 Active methocarbamol (Robaxin) 500 MG tablet Take 1 tablet by mouth 3 (three) times a day as needed Active metoprolol tartrate (Lopressor) 25 MG tablet Take 1 tablet by mouth in the morning and 1 tablet before bedtime. 08/20/2023 Active nitroglycerin (Nitrostat) 0.4 MG SL tablet DISSOLVE 1 TABLET UNDER TONGUE NEEEDED Active propylthiouraci l (PTU) 50 MG tablet TAKE 1 TABLET BY MOUTH IN THE MORNING, 1 TABLET AT NOON, 1 TABLET BEFORE BEDTIME Active spironolactone (Aldactone) 25 MG tablet Take 25 mg by mouth in the morning. Active traMADol (Ultram) 50 MG tablet TAKE 1 TABLET BY MOUTH EVERY 8 HOURS NEEDED FOR PAIN FOR UP TO 5 DAYS. 01/14/2023 Active traZODone (Desyrel) 150 MG tablet Take 1 tablet by mouth at bedtime 08/20/2023 Active Active Problems No known active problems Family History Medical History Relation Name Comments Cancer Father Heart disease Father Hypertension Father Cancer Mother Diabetes Mother Heart disease Mother Hypertension Mother Kidney disease Mother Relation Name Status Comments Father Mother Alive Social History Tobacco Use Types Packs/Day Years Used Date Smoking Tobacco: Every Day Cigarettes 0.5 59 Passive Smoke Exposure: Past Smokeless Tobacco: Never Tobacco Cessation:Ready to Q uit: Not Asked; Counseling Given: Yes Alcohol Use Standard Drinks/Week Comments Not Currently 0 (1 standard drink = 0.6 oz pur e alcohol) coffee daily AUDIT-C Answer Date Recorded Q1: How often do you have a drink containing alc ohol? 2-4 times a month 12/04/2023 Average Number of Drinks Not on file 024 Frequency of Binge Drinking Not on file 11/20 Comments Unknown Sex and Gender Information Value Date Recorded Sex Assigned at Not on file Legal Sex Female 6:55 PM EDT Gender Identity Not on file Sexual Orientation Not on file Last Filed Vital Signs Vital Sign Reading Time Taken Comments Blood Pressure 130/80 07/08/2024 12:09 PM EDT Pulse 74 07/08/2024 12:09 PM EDT Temperature - - Respiratory Rate 18 07/08/2024 12:09 PM EDT Oxygen Saturation - - Inhaled Oxygen Concentration - - Weight 91.6 kg (202 lb) 07/08/2024 12:09 PM EDT Height 161.3 cm (5' 3.5 ) 07/08/2024 12:09 PM ED T Body Mass Index 35.22 07/08/2024 12:09 PM EDT Plan of Treatment Health Maintenance Due Date Last Done Comments CT Colonography 1955 Colonoscopy 1955 Colorectal Cancer Screening 1955 FIT-DNA 1955 FIT 1956 FOBT 1956 Lung Cancer Screening Shared Decision Making 1955 Sigmoidoscopy 1955 Mammogram 08/13/2023 08/13/2022, 08/13/2022 Medicare Annual Wellness (AWV) 09/13/2025 1 11/13/2023, 08/20/2023, 07/30/2022 Pneumococcal Vaccine: 65+ Years Completed , 10/02/2022 Influenza Vaccine Completed 08/10/2024, , 08/20/2023, Additional history exists Insurance MEDICAID [place] [employer] MEDICARE Care Teams Water Vessel Captain Relationship Specialty Start Date End Date Unallocated, [facility] Provider, [address] [place] [address] PCP - General Family Medicine 07/08/24 Emmie Daley CRNP Referring Physician Nurse Practitioner 07/08/24
--- OUTSIDE RECORDS SUMMARY | 2025-04-14 13:56 | XMS_ITS | Encounter Summary ---
Author Organization [employer] s tem Address [id number] [address] [place] [address] Care Team Providers Care Pharmacy Cashier Name Role Phone Emmie Daley SENIOR CLINICAL STUDY MANAGER-OPERATING ROOM NURSE Primary Care Provid er Encounter Details Date Type Department Care Team (Late st Contact Info) Description 02/11/2025 Telephone [facility] - Family Medicine [address] [place] [phone] Sandra Zuleta CMA Social History Tobacco Use Types Packs/Day [...] on file documented as of this encounter Miscellaneous Notes * Telephone Encounter - Sandra Zuleta CMA - 02/11/2025 10:20 AM EDT This is a FYI. This patient has been admitted to [facility] Lower Extremity Surg. documented in this encounter Plan of Treatment Upcoming Encounters Date Type Department Care Team (Late st Contact Info) Description 05/18/2025 1:00 PM EDT Office Visit [facility] - Family Medicine [address] [place] [address] Emmie Daley APRN-TESS [address] [place] [address] documented as of this encounter Visit Diagnoses Not on filedocumented in this encounter Additional Health Concerns Assessment Noted Time PHQ-9 Depression Total Score: 0 12/16/19 1:30 PM EST A Body Mass Index follow-up plan has been documented for the patient 12/16/2024 2:22 PM EST documented as of this encounter Care Teams Pharmacy Cashier Relationship Specialty Start Date End Date Emmie Daley, NADEEM-TESS [address] [place] [address] PCP - General Family Medicine 02/20/22 documented as of this encounter
--- OUTSIDE RECORDS SUMMARY | 2025-04-14 13:57 | XMS_ITS | Encounter Summary ---
Author Organization [facility] Sys tem Address [id number] [address] [place] [address] Care Team Providers Care Ship Surveyor Name Role Phone Emmie Daley BINDING DYER-MANAGER AIR Primary Care Provid er Encounter Details Date Type Department Care Team ([facility] Contact Info) Description 08/11/2024 Orders Only [facility] - Family Medicine [address] [place] [address] Emmie Daley, BINDING DYER-MANAGER AIR [address] [place] [address] Social History Tobacco Use Types Packs/Day Years Used Date Smoking Tobacco: Every Day Cigarettes 0.5 56 Smokeless Tobacco: Never Alcohol Use Standard Drinks/Week Comments Yes 0 (1 standard drink = 0.6 oz pur e alcohol) on weekends, not often. PHQ-2 Answer Date Recorded Total Score 0 04/12/2024 Childcare Answer Date Recorded Childcare Unknown 03/31/2019 Employment Answer Date Recorded Employment Unknown 03/31/2019 Hunger Screening Answer Date Recorded Within the past 12 months we worried whether our food would run out before we got money to buy more. Never True 04/12/2024 Within the past 12 months th e food we bought just didn't last and we didn't have money to get more. Never True 04/12/2024 Comments Unknown Sex and Gender Information Value Date Recorded Sex Assigned at Not on file Legal Sex Female 10:24 AM EST Gender Identity Not on file Sexual Orientation Not on file documented as of this encounter Plan of Treatment Upcoming Encounters Date Type Department Care Team ([facility] Contact Info) Description 05/18/2025 1:00 PM EDT Office Visit [facility] - Family Medicine [address] [place] [address] Emmie Daley APRN-MANAGER AIR [address] [place] [phone] documented as of this encounter Visit Diagnoses Not on filedocumented in this encounter Additional Health Concerns Assessment Noted Time PHQ-9 Depression Total Score: 0 04/12/20 24 9:23 AM EDT A Body Mass Index follow-up plan has been documented for the patient 08/10/2024 9:10 AM EDT documented as of this encounter Care Teams Ship Surveyor Relationship Specialty Start Date End Date Emmie Daley, BINDING DYER-MANAGER AIR [address] [place] [phone] PCP - General Family Medicine 02/20/22 documented as of this encounter
--- OUTSIDE RECORDS SUMMARY | 2025-04-14 13:57 | XMS_ITS | Encounter Summary ---
Author Organization [employer] s tem Address [id number] [address] [place] [address] Care Team Providers Care Real Estate Firm Manager Name Role Phone Emmie Daley HEALTH INFORMATION TECHNOLOGIST-NET WASHER Primary Care Provid er Encounter Details Date Type Department Care Team ([facility] Contact Info) Description 07/21/2024 [facility] [address] [place] [address] Sandra Zuleta CMA Special screening for malignant neoplasm of colon Social History Tobacco Use Types Packs/Day Years [...] Upcoming Encounters Date Type Department Care Team ([facility] Contact Info) Description 05/18/2025 1:00 PM EDT Office Visit [facility] - Family Medicine [address] [place] [address] Emmie Daley APRN-CNP [address] [place] [address] documented as of this encounter Procedures Procedure Name Priority Date/Time Associated Diagnosis Comments AMB REFERRAL TO GASTROENTEROLOGY Routine 07/21/2024 Special screening for malignant neoplasm of colon documented in this encounter Results * Ambulatory referral to Gastroenterology ([facility]) (07/21/2024) 07/21/2024 us Emmie URBINA OUTPATIENT REFERRAL ORDERABLES Final Result MANUALLY TRANSCRIBED RESULTS documented in this encounter Visit Diagnoses Diagnosis Special screening for malignant neoplasm of colon Special screening for malignant neoplasms, colon documented in this encounter Additional Health Concerns Assessment Noted Time PHQ-9 Depression Total Score: 0 04/12/20 9:23 AM EDT A Body Mass Index follow-up plan has been documented for the patient 04/12/2024 10:52 AM EDT documented as of this encounter Care Teams Real Estate Firm Manager Relationship Specialty Start Date End Date Emmie Daley APRN-CNP [address] [place] [phone] PCP - General Family Medicine 02/20/22 documented as of this encounter
--- OUTSIDE RECORDS SUMMARY | 2025-04-14 13:57 | XMS_ITS | Patient Health Record ---
Author Organization [facility] in [place] Address [address] [place] [address] Care Team Providers Care Mold Shaker Name Role Phone Jairo Walker Primary Care Provider UnavailShakir Villa Unavailable [phone] Fan Howard Unavailable [phone] Allergies No Known Allergies Results Component Value Reference Range Notes CT Chest Low Dose for Screen ing* Reviewed date:06/03/2024 07:52:23 AM Interpretation: Performing Lab: Notes/Report: XR ankle RT min 3V (Not yet reviewed by provider) Interpretation: Performing Lab: Notes/Report: Source Facility: [place] [address] [place] [address] XRay Report Signed Patient: ROBYN NUNEZ MR#: [id number] : 1955 Acct:[id number] Age/Sex: 68 / F ADM Date: 11/22/24 Loc: RAD Attending Dr: Henry Wong Ordering Physician: Henry Wong Date of Service: 11/22/24 Procedure(s): XR ankle RT min 3V Accession Number(s): [id number] cc: JAIRO WALKER ; Henry Wong [place] [address] Patient Name: ROBYN NUNEZ MRN: [facility]:[id number] date: 1955 Sex: F Assigned Patient Location: [facility] Current Patient Location: RAD Accession/Order Number: [id number] Exam Date: 11/22/2024 12:00 Report Date: 11/25/2024 09:48 At the request of: HENRY WONG Procedure: XR ankle RT min 3V PROCEDURE: XR ankle RT min 3V COMPARISON: None. HISTORY: Right Ankle Pain FINDINGS: BONES:No acute fracture or dislocation. Remote healed distal fibular fracture with internal fixation utilizing a lateral plate and screws. No mechanical failure. SOFT TISSUES:Negative. No visible soft tissue swelling. EFFUSION:None visible. OTHER: Negative. XR/XR ankle RT min 3V IMPRESSION: Remote healed distal fibular fracture. Electronically authenticated by: XAVIER GONZALES Date: 11/25/2024 09:48 Dictated By: Xavier Gonzales M.D. Signed By: 11/25/2451 DD/ TD/TT: Bathhouse Keeper: [place] [address] XRay Report Signed Patient: ROBYN NUNEZ MR#: [id number] : 1955 Acct:[id number] Age/Sex: 68 / F ADM Date: 11/22/24 Loc: [facility] Attending Dr: Henry Wong Ordering Physician: Henry Wong Date of Service: 11/22/24 Procedure(s): XR ank le RT min 3V Accession Number(s): [id number] cc: JAIRO WALKER The [address] [address] Patient Name: ROBYN NUNEZ MRN: [facility]:[id number] date: 1955 Sex: F Assigned Patient Location: [facility] Current Patient Location: [facility] Accession/Order Numb er: [id number] Exam Date: 11/22/2024 12:00 Report Date: 11/25/2024 09:48 At the request of: HENRY WONG Procedure: XR ankle RT min 3V PROCEDURE: XR ankle RT min 3V COMPARISON: None. HISTORY: Right Ankle Pain FINDINGS: BONES:No acute fract ure or dislocation. Remote healed distal fibular fracture with internal fixati on utilizing a lateral plate and screws. No mechanical failure. SOFT TISSUES:Negativ e. No visible soft tissue swelling. EFFUSION:None visible. OTHER: Negative. X R/XR ankle RT min 3V IMPRESSION: Remote healed distal fibular fracture. Electronically authe nticated by: XAVIER GONZALES Date: 11/25/2024 09:48 Dictated By: Xavier Gonzales M.D. Signed By: 11/25/2451 DD/ 7 TD/TT: Bathhouse Keeper: CT lung screening low-dose Reviewed date:06/03/2024 02:32:11 PM Interpretation: Performing Lab: Notes/Report: Source Facility: [place] [address] CT Scan Report Signed Patient: ROBYN NUNEZ MR#: [id number] : 1955 Acct:[id number] Age/Sex: 68 / F ADM Date: 06/02/24 Loc: CT Attending Dr: Fan Howard D.O. Ordering Physician: Fan Howard D.O. Date of Service: 06/02/24 Procedure(s): CT lung screening low-dose Accession Number(s): [id number] cc: JAIRO WALKER [place] [address] Patient Name: ROBYN NUNEZ MRN: [id number] date: 1955 Sex: F Assigned Patient Location: CT Current Patient Location: Accession/Order Number: [id number] Exam Date: 06/02/2024 08:08 Report Date: 06/03/2024 06:43 At the request of: FAN HOWARD Procedure: CT lung screening low-dose EXAMINATION: CT lung screening low-dose HISTORY: Screening Malignant Neoplasm Z12.2 COMPARISON: CT lung cancer screening 05/29/2023 TECHNIQUE: Axial, Coronal, and Sagittal images were created without the administration of IV contrast material. Dose reduction techniques were achieved by using automated exposure control and/or adjustment of mA and/or kV according to patient size and/or use of iterative reconstruction technique. FINDINGS: LUNGS: Moderate emphysematous changes and a few tiny 3 mm nodules scattered within the lungs; unchanged. PLEURA: No mass, effusion, or pneumothorax. VASCULATURE: No abnormality. ALISIA: No mass or pathologic adenopathy. MEDIASTINUM: No mass or pathologic adenopathy. CARDIAC: Trace amount pericardial fluid. Coronary Artery calcifications: Coronary calcifications are mild. AORTA: No aneurysm or dissection. CHEST WALL: No mass or axillary adenopathy BONES: No bone lesion or fracture. LIMITED ABDOMEN: No suspicious findings. Limited images of the upper abdomen. OTHER: Negative. CT/CT lung screening low-dose IMPRESSION: 1. Lung-RADS 2- Benign Appearance or Behavior. Nodules with a very low likelihood of becoming a clinically active cancer due to size or lack of growth. Follow-up CT Chest in 1 year. 2. Trace amount of pericardial fluid; new since prior study. Electronically authenticated by: MICHI MCGRAW Date: 06/03/2024 06:43 Dictated By: Michi Mcgraw M.D. Signed By: 06/03/2446 DD/ TD/TT: Bathhouse Keeper: [place] [address] CT Scan Report Signed Patient: ROBYN NUNEZ MR#: [id number] : 1955 Acct:[id number] Age/Sex: 68 / F ADM Date: 06/02/24 Loc: CT Attending Dr: Fan Howard D.O. Ordering Physician: Fan Howard D.O. Date of Service: 06/02/24 Procedure(s): CT yovany g screening low-dose Accession Number(s): [id number] cc: JAIRO WALKER [address] [address] Patient Name: ROBYN NUNEZ MRN: [facility]:[id number] date: 1955 Sex: F Assigned Patient Location: CT Current Patient Location: Accession/Order Numb er: [id number] Exam Date: 06/02/2024 08:08 Report Date: 06/03/2024 06:43 At the request of: FAN HOWARD Procedure: CT lung s creening low-dose EXAMINATION: CT lung screening low-dose HISTORY: Screening M alignant Neoplasm Z12.2 COMPARISON: CT lung cancer screening 05/29/2023 TECHNIQUE: Axial, Co john, and Sagittal images were created without the administration of IV contrast material. Dose reduction techniques were achieved by using automated e xposure control and/or adjustment of mA and/or kV according to patient size and/ or use of iterative reconstruction technique. FINDINGS: LUNGS: Moderate emph ysematous changes and a few tiny 3 mm nodules scattered within the lungs; unchanged. PLEURA: No mass, eff usion, or pneumothorax. VASCULATURE: No abnormality. ALISIA: No mass or pat hologic adenopathy. MEDIASTINUM: No mass or pathologic adenopathy. CARDIAC: Trace amoun t pericardial fluid. Coronary Artery calcifications: Coronary calcificati ons are mild. AORTA: No aneurysm o r dissection. CHEST WALL: No mass or axillary adenopathy BONES: No bone lesio n or fracture. LIMITED ABDOMEN: No suspicious findings. Limited images of the upper abdomen. OTHER: Negative. C T/CT lung screening low-dose IMPRESSION: 1. Lung-RADS 2- Brock gn Appearance or Behavior. Nodules with a very low likelihood of becomi ng a clinically active cancer due to size or lack of growth. Follow-up CT Chest in 1 year. 2. Trace amount of p ericardial fluid; new since prior study. Electronically authe nticated by: MICHI MCGRAW Date: 06/03/2024 06:43 Dictated By: Michi Mcgraw M.D. Signed By: 06/03/24 0646 DD/ 0643 TD/TT: Bathhouse Keeper: Reason For Referral Reason referral for aundrea We have an old system that [facility] 1 Other instability, r ight ankle (M25.371) Referral Organization [facility] Referring Provider First Name Shakir Referring Provider Last Name Gregoria Referring Provider Speciality Podiatry Referred Provider Aundrea Burden Referred Provider Specialty Podiatry Referral Priority Routine Medications Medication SIG (Take, Route, Frequency, Duration) Notes Start Date End Date Status Spironolactone 25 MG Oral for 90 Days Active Trelegy Ellipta 100-62.5-25 MCG/ACT 1 puff Inhalation Once a day for 90 days Rinse after use Active Lisinopril 2.5 MG 1 tablet Orally HS Active Metoprolol Tartrate 25 MG Oral for 90 Days Active FLUoxetine HCl 10 MG TAKE 1 CAPSULE (10 MG TOTAL) BY MOUTH NIGHTLY. Oral for 90 Days Active Gabapentin 100 MG Oral for 90 Days Active Albuterol Sulfate HFA 108 (90 Base) MCG/ACT 2 puffs as needed for SOB Inhalation Q4H for 90 days Active Diclofenac Sodium 75 MG Oral for 90 Days Active Gabapentin 300 MG 1 capsule Orally Once a day Active Levothyroxine Sodium 50 MCG Oral for 90 Days Active Lisinopril 10 MG 1 tablet Orally AM for 30 days Active Immunizations Vaccine Route Administration Date Status Comme nts Flu, Fluad (88476) 65 yrs+, single-dose syringe (7502-1992) Unknown 07/30/2022 Administered Flu, Fluad (33407) 65 yrs+, single-dose syringe (4586-4976) Unknown 08/20/2023 Administered Pneumococcal (Prevnar 20) Unknown 10/02/2022 Administer ed SARS-COV-2 (COVID 19) bivale nt 30 mcg/0.3 ml dose Unknown 08/14/2022 Administered Social History Tobacco Use: Social History Observation [...] user Moderate cigar ette smoker (10-19 cigs/day) Problems Problem Type SNOMED Code ICD Code Onset Dates Problem Status W/U Status Risk Notes Problem 444831503 Obesity, unspecified (E66.9) Active confirmed Problem Centrilobular emphysema (21157222) Centrilobular emphysema (J43.2) Active confirmed Problem Long-term current use of inhaled steroid (786264860) intermediate (current) use of inhaled steroids (Z79.51) Active confirmed Problem 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) Cigarette nicotine dependence with nicotine-induced disorder (F17.219) Active confirmed Problem Multiple pulmonary nodules (116188278) Multiple pulmonary nodules (R91.8) Active confirmed Problem Body mass index 35.00 to 39.99 (108006307614188) Body mass index [BMI] 37.0-37.9, adult (Z68.37) Active confirmed Vital Signs Heart Rate 69 /min 06/30/2024 Temperature 96.4 degrees Fahrenheit 06/30/2024 Respiratory Rate 18 /min 06/30/2024 Blood pressure diastolic 83 mm Hg 06/30/2024 Oximetry 92 % 06/30/2024 Height 62.5 in 06/30/2024 Blood pressure systolic 174 mm Hg 06/30/2024 Weight 206.2 lbs 06/30/2024 BMI 37.11 kg/m2 06/30/2024 Encounters Encounter Location Date Provider Diagnosis [facility] [place] [address] [place] [address] 04/28/2024 [facility] [place] [address] [place] [address] 05/05/2024 Fan [facility] Centrilobular emphysema J43.2 [facility] [place] [address] [place] [facility] [place] [address] 05/24/2024 [facility] [place] [address] [place] [address] 09/13/2024 Fan [facility] [address] [place] [address] [place] [address] 12/23/2024 Shakir Kinney [facility] [place] [address] [place] [address] 06/30/2024 Fan [facility] Centrilobular emphysema J43.2 ; Cigarette nicotine dependence with nicotine-induced disorder F17.219 ; Multiple pulmonary nodules R91.8 ; 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 She is symptomatic, using albuterol twice a day. This is not unexpected that she continues to smoke, though she has cut down from 3 packs a day to 1/2 pack a day. Continue current treatment. Follow-up 1 year. 06/30/2024 Cigarette nicotine dependence with nicotine-induced disorder (ICD-10 - F17.219) Discussed smoking cessation. She looked for a hypnotist locally, but none are present-they are in [place] in [place]. I told her not to use this as an excuse and to try to continue smoking cessation as best as she can. 11/23/2024 Displaced fracture of lateral malleolus of [...] significant cardiovascular disease. She recently seen her car escort but related that she is going to see a new car escort at the end of the month. She will require cardiac clearance and possibly pulmonary clearance.Postopera tive course was reviewed and the patient will likely be: Nonweightbearing for 1 to 3 weeks followed by protected weightbearing in cam boot Patient will be: outpatient postoperatively Proposed anesthesia: General And regional Proposed implants: Medline 3.3 mm suture anchors 11/23/2024 Other instability, right ankle (ICD-10 - M25.371) 05/05/2024 Centrilobular emphysema (ICD-10 - J43.2) 11/23/2024 Strain of muscle(s) and tendon(s) of peroneal muscle group at lower leg level, right leg, initial encounter (ICD-10 - S86.311A) 06/30/2024 Multiple pulmonary nodules (ICD-10 - R91.8) 3mm pulmonary nodules, unchanged on LDCT 06/05/2024 when compared to 05/28/2022. 06/30/2024 intermediate (current) use of inhaled steroids (ICD-10 - Z79.51) Patient was counseled to rinse & gargle with water after inhaled corticosteroid use. 11/23/2024 Other specified joint disorders, right ankle and foot (ICD-10 - M25.871) 11/23/2024 Cigarette nicotine dependence with nicotine-induced disorder (ICD-10 - F17.219) 06/30/2024 Encounter for screening for malignant neoplasm of respiratory organs (ICD-10 - Z12.2) Low-dose CT (LDCT) was recommended for lung cancer screening. The patient meets criteria including age 50-77, a smoking history of at least 20 pack-years, is currently smoking or has ceased smoking within the past 15 years, and has no signs or symptoms of lung cancer. Shared decision making performed with the patient. After LDCT has been completed, will review report and/or imaging and provide appropriate recommendations for the patient, including additional follow up if needed. Patient was counseled on smoking cessation/continued tobacco abstinence. LDCT is due 05/2025. 06/30/2024 Obesity, unspecified (ICD-10 - E66.9) Patient's weight is inducing a restrictive pulmonary physiology. Weight loss indicated: Decrease calories, increase activity. 11/23/2024 Right ankle pain (ICD-10 - M25.571) 06/30/2024 Body mass index [BMI] 37.0-37.9, adult (ICD-10 - Z68.37) 06/30/2024 Other Plan Of Treatment Pending Test Test Name Order Date XR Ankle RT (3 views) * (161) 11/23/2024 XR ankle RT min 3V 11/25/2024 Next Appt Details Provider Name:Fan Howard, 06/29/2025 08:00:00 AM, [address] [place], [address], Insurance Providers Payer Name Payer Address Payer Phone Subscriber Number Group Number Insured Name Patient Relationship to Insured Coverage Start Date Coverage End Date [facility] [employer] [address] [place] [phone] [id number] Robyn Nunez Self - patient is the insured 5 Medical (General) History Medical History History ICD Code Centrilobular emphysema J43.2 Cigarette nicotine dependence with nicot ine-induced disorder F17.219 Multiple pulmonary nodules R91.8 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
--- OUTSIDE RECORDS SUMMARY | 2025-04-14 13:57 | XMS_ITS | Encounter Summary ---
Author Organization [facility] [employer] [facility] Address [id number] [address] [place] [address] Care Team Providers Care Manager Risk Management Name Role Phone Emmie Daley WIG MAKER-COPPER ETCHER Primary Care Provid er Encounter Details Date Type Department Care Team (Late st Contact Info) Description 12/17/2024 Orders Only [facility] Internal Medicine - Family Medicine [address] [place] [address] Emmie Daley, WIG MAKER-COPPER ETCHER [address] [facility] [place] [address] Benign essential HTN; Nonrheumatic mitral valve regurgitation Social History Tobacco Use Types Packs/Day Years [...] Medicine - Family Medicine [address] [place] [address] Emmie Daley APRN-CNP [address] [place] [address] documented as of this encounter Procedures Procedure Name Priority Date/Time Associated Diagnosis Comments AMB REFERRAL TO CARDIOLOGY Routine 12/15/2024 8:20 AM EST Benign essential HTN Nonrheumatic mitral valve regurgitation documented in this encounter Results * Ambulatory referral to Cardiology ([facility]) (12/15/2024 8:20 AM EST) us Emmie URBINA OUTPATIENT REFERRAL ORDERABLES Final Result Performing Organization Address City/State/[facility] Co de Phone Number MANUALLY TRANSCRIBED RESULTS documented in this encounter Visit Diagnoses Diagnosis Benign essential HTN Nonrheumatic mitral valve regurgitation documented in this encounter Additional Health Concerns Assessment Noted Time PHQ-9 Depression Total Score: 0 12/16/19 25 1:30 PM EST A Body Mass Index follow-up plan has been documented for the patient 12/16/2024 2:22 PM EST documented as of this encounter Care Teams Manager Risk Management Relationship Specialty Start Date End Date Emmie Daley APRN-CNP [address] [place] [address] PCP - General Family Medicine 02/20/22 documented as of this encounter
--- OUTSIDE RECORDS SUMMARY | 2025-04-14 13:57 | XMS_ITS | Encounter Summary ---
Author Organization [employer] s [employer] Address [facility]-[id number] [address] [place] [address] Care Team Providers Care Director Global Intelligence Name Role Phone Emmie Daley MACHINE TRIMMER-AFTER SCHOOL TEACHER Primary Care Provid er Encounter Details Date Type Department Care Team ([facility] Contact Info) Description 08/11/2023 [facility] [address] [place] [address] Emmie Daley, MACHINE TRIMMER-AFTER SCHOOL TEACHER [address] [place] [address] Social History Tobacco Use Types Packs/Day Years Used Date Smoking Tobacco: Every Day Cigarettes 0.5 56 Smokeless Tobacco: Never Alcohol Use Standard Drinks/Week Comments Yes 0 (1 standard drink = 0.6 oz pur e alcohol) on weekends, not often. PHQ-2 Answer Date Recorded Total Score 0 07/01/2023 Childcare Answer Date Recorded Childcare Unknown 03/31/2019 Employment Answer Date Recorded Employment Unknown 03/31/2019 Comments Unknown Sex and Gender Information Value Date Recorded Sex Assigned at Not on file Legal Sex Female 10:24 AM EST Gender Identity Not on file Sexual Orientation Not on file documented as of this encounter Plan of Treatment Upcoming Encounters Date Type Department Care Team ([facility] Contact Info) Description 05/18/2025 1:00 PM EDT [facility] [address] [place] [address] Emmie Daley, MACHINE TRIMMER-AFTER SCHOOL TEACHER [address] [place] [address] documented as of this encounter Procedures Procedure Name Priority Date/Time Associated Diagnosis Comments XR SPINE CERVICAL 3 VWS OR LESS Routine 08/11/2023 12:53 PM EDT documented in this encounter Results * X-ray spine cervical 3 views or less (08/11/2023 12:53 PM EDT) Anatomical Region Laterality Modality MSK, Neuro, Spine, C-spine N/A Compu neel Radiography us Scanning Provider External IMG DIAGNOSTIC IMAGIN G ORDERABLES Final Result documented in this encounter Visit Diagnoses Not on filedocumented in this encounter Additional Health Concerns Assessment Noted Time PHQ-9 Depression Total Score: 0 07/01/20 9:30 AM EDT A Body Mass Index follow-up plan has been documented for the patient 07/15/2023 1:47 PM EDT documented as of this encounter Care Teams Director Global Intelligence Relationship Specialty Start Date End Date Emmie Daley APRN-TESS [address] [place] [address] PCP - General Family Medicine 02/20/22 documented as of this encounter
--- OUTSIDE RECORDS SUMMARY | 2025-04-14 13:57 | XMS_ITS | Encounter Summary ---
Author Organization [employer] Address [id number] [address] [place] [address] Care Team Providers Care Dye Automation Operator Name Role Phone Emmie Daley CAPSULE FILLING MACHINE OPERATOR-TILE SPRAYER Primary Care Provid er Encounter Details Date Type Department Care Team ([facility] Contact Info) Description 07/27/2024 [facility] [address] [place] [address] Ref Prov, [place] [address] Social History Tobacco Use Types Packs/Day Years [...] Upcoming Encounters Date Type Department Care Team ([facility] Contact Info) Description 05/18/2025 1:00 PM EDT Office Visit [facility] Internal Medicine - Family Medicine [address] [place] [address] Emmie Daley, CAPSULE FILLING MACHINE OPERATOR-TILE SPRAYER [address] [place] [address] documented as of this encounter Procedures Procedure Name Priority Date/Time Associated Diagnosis Comments XR KNEE RT MIN 4 VWS Routine 07/26/2024 9:45 AM EDT documented in this encounter Results * X-ray knee right minimum 4 views (07/26/2024 9:45 AM EDT) Anatomical Region Laterality Modality Lower Extremities, MSK, Knee Right Com puted Radiography us Not In System Ref Prov IMG DIAGNOSTIC IMAGING OR DERABLES Final Result documented in this encounter Visit Diagnoses Not on filedocumented in this encounter Additional Health Concerns Assessment Noted Time PHQ-9 Depression Total Score: 0 04/12/20 9:23 AM EDT A Body Mass Index follow-up plan has been documented for the patient 04/12/2024 10:52 AM EDT documented as of this encounter Care Teams Dye Automation Operator Relationship Specialty Start Date End Date Emmie Daley, NADEEM-TILE SPRAYER [address] [facility] [place] [address] PCP - General Family Medicine 02/20/22 documented as of this encounter
--- OUTSIDE RECORDS SUMMARY | 2025-04-14 13:57 | XMS_ITS | Encounter Summary ---
Author Organization [employer] s [employer] Address [facility] [place]-[id number] [address] [place] [address] Care Team Providers Care Singe Winder Name Role Phone Emmie Daley SPECIAL EFFECTS SPECIALIST-BUILDING RENTAL SUPERINTENDENT Primary Care Provid er Encounter Details Date Type Department Care Team ([facility] Contact Info) Description 04/26/2024 Orders Only [facility] Internal Medicine - Family Medicine [address] [place] [address] External, Scanning Provider Social History Tobacco Use Types Packs/Day Years [...] Upcoming Encounters Date Type Department Care Team ([facility] Contact Info) Description 05/18/2025 1:00 PM EDT Office Visit [facility] - Family Medicine [address] [place] [address] Emmie Daley, SPECIAL EFFECTS SPECIALIST-BUILDING RENTAL SUPERINTENDENT [address] [place] [address] documented as of this encounter Procedures Procedure Name Priority Date/Time Associated Diagnosis Comments XR SHOULDER LT MIN 2 VWS Routine 04/25/2024 2:10 PM EDT XR FOREARM RT 2 VWS Routine 04/25/2024 2:07 PM EDT XR FOOT RT MIN 3 VWS Routine 04/25/2024 2:[address] CERVICAL SPINE WO CONT Routine 04/25/2024 2:01 PM EDT XR KNEE LT MIN 4 VWS Routine 04/25/2024 1:59 PM EDT XR TIBIA FIBULA LT MIN 2 VWS Routine 04/25/2024 1:56 PM EDT documented in this encounter Results * X-ray shoulder left minimum 2 views (04/25/2024 2:10 PM EDT) Anatomical Region Laterality Modality MSK, Upper Extremities, Shoulder Left Computed Radiography us Scanning Provider External IMG DIAGNOSTIC IMAGIN G ORDERABLES Final Result * X-ray forearm right 2 views (04/25/2024 2:07 PM EDT) Anatomical Region Laterality Modality Upper Extremities, MSK, Forearm Right Computed Radiography us Scanning Provider External IMG DIAGNOSTIC IMAGIN G ORDERABLES Final Result * X-ray foot right minimum 3 views (04/25/2024 2:05 PM EDT) Anatomical Region Laterality Modality Lower Extremities, MSK, Foot Right Com puted Radiography us Scanning Provider External IMG DIAGNOSTIC IMAGIN G ORDERABLES Final Result * CT cervical spine without contrast (04/25/2024 2:01 PM EDT) Anatomical Region Laterality Modality MSK, Neuro, Spine, C-spine, Spine Covera N/A Computed Tomography us Scanning Provider External IMG CT ORDERABLES Fin al Result * X-ray knee left minimum 4 views (04/25/2024 1:59 PM EDT) Anatomical Region Laterality Modality Lower Extremities, MSK, Knee Left Com puted Radiography us Scanning Provider External IMG DIAGNOSTIC IMAGIN G ORDERABLES Final Result * X-ray tibia fibula left minimum 2 views (04/25/2024 1:56 PM EDT) Anatomical Region Laterality Modality Lower Extremities, MSK, Lower Leg Left Computed Radiography us Scanning Provider External IMG DIAGNOSTIC IMAGIN G ORDERABLES Final Result documented in this encounter Visit Diagnoses Not on filedocumented in this encounter Additional Health Concerns Assessment Noted Time PHQ-9 Depression Total Score: 0 04/12/20 9:23 AM EDT A Body Mass Index follow-up plan has been documented for the patient 04/12/2024 10:52 AM EDT documented as of this encounter Care Teams Singe Winder Relationship Specialty Start Date End Date Emmie Daley, SPECIAL EFFECTS SPECIALIST-BUILDING RENTAL SUPERINTENDENT [address] [place] [address] PCP - General Family Medicine 02/20/22 documented as of this encounter
--- OUTSIDE RECORDS SUMMARY | 2025-04-14 13:57 | XMS_ITS | Encounter Summary ---
Author Organization [employer] s tem Address [id number] [address] [place] [address] Care Team Providers Care Metals Analyst Name Role Phone Emmie Daley BOAT DECKHAND-WEAVER NEEDLE LOOM Primary Care Provid er Encounter Details Date Type Department Care Team ([facility] Contact Info) Description 05/03/2024 [facility] [address] [place] [address] Ref Prov, [place] [address] Social History Tobacco Use Types Packs/Day Years [...] Upcoming Encounters Date Type Department Care Team ([facility] Contact Info) Description 05/18/2025 1:00 PM EDT Office Visit [facility] - Family Medicine [address] [place] [address] Emmie Daley APRN-WEAVER NEEDLE LOOM [address] [place] [address] documented as of this encounter Procedures Procedure Name Priority Date/Time Associated Diagnosis Comments XR WRIST RT MIN 3 VWS Routine 05/03/2024 4:43 PM EDT documented in this encounter Results * X-ray wrist right minimum 3 views (05/03/2024 4:43 PM EDT) Anatomical Region Laterality Modality MSK, Upper Extremities, Wrist Right Co mputed Radiography us Not In System Ref Prov [...] documented as of this encounter Care Teams Metals Analyst Relationship Specialty Start Date End Date Emmie Daley, NADEEM-TESS [address] [facility] [place] [phone] PCP - General Family Medicine 02/20/22 documented as of this encounter
--- OUTSIDE RECORDS SUMMARY | 2025-04-14 13:57 | XMS_ITS | Encounter Summary ---
Author Organization [employer] s tem Address [id number] [address] [place] [address] Care Team Providers Care Rn Telemetry Name Role Phone Emmie Daley SOFT SHOE DANCER-LABOR AND DELIVERY NURSE Primary Care Provid er Encounter Details Date Type Department Care Team ([facility] Contact Info) Description 07/17/2023 [facility] [address] [place] [address] Emmie Daley, SOFT SHOE DANCER-LABOR AND DELIVERY NURSE [address] [place] [address] Social History Tobacco Use Types Packs/Day Years [...] Upcoming Encounters Date Type Department Care Team ([facility] Contact Info) Description 05/18/2025 1:00 PM EDT [facility] [address] [place] [address] Emmie Daley, SOFT SHOE DANCER-LABOR AND DELIVERY NURSE [address] [place] [address] documented as of this encounter Procedures Procedure Name Priority Date/Time Associated Diagnosis Comments XR SHOULDER RT MIN 2 VWS Routine 07/17/2023 10:23 AM EDT documented in this encounter Results * X-ray shoulder right minimum 2 views (07/17/2023 10:23 AM EDT) Anatomical Region Laterality Modality MSK, Upper Extremities, Shoulder Right Computed Radiography us Scanning Provider External IMG DIAGNOSTIC IMAGIN G ORDERABLES Final Result documented in this encounter Visit Diagnoses Not on filedocumented in this encounter Additional Health Concerns Assessment Noted Time PHQ-9 Depression Total Score: 0 07/01/20 23 9:30 AM EDT A Body Mass Index follow-up plan has been documented for the patient 07/15/2023 1:47 PM EDT documented as of this encounter Care Teams Rn Telemetry Relationship Specialty Start Date End Date Emmie Daley APRN-CNP [address] [place] [address] PCP - General Family Medicine 02/20/22 documented as of this encounter
--- OUTSIDE RECORDS SUMMARY | 2025-04-14 13:57 | XMS_ITS | Encounter Summary ---
Author Organization [employer] Address [id number] [address] [place] [address] Care Team Providers Care Turning Machine Operator Helper Name Role Phone Emmie Daley TROUBLE SHOOTER-NURSE SCHOOL Primary Care Provid er Encounter Details Date Type Department Care Team ([facility] Contact Info) Description 11/04/2024 [facility]phone [facility] [address] [place] [address] Vanesa, Isidra, GLOBAL ACCOUNT DIRECTOR Social History Tobacco Use Types Packs/Day Years Used Date Smoking Tobacco: Every Day Cigarettes 0.5 56 Smokeless Tobacco: Never Alcohol Use Standard Drinks/Week Comments Yes 0 (1 standard drink = 0.6 oz pur e alcohol) on weekends, not often. PHQ-2 Answer Date Recorded Total Score 0 09/13/2024 Childcare Answer Date Recorded Childcare Unknown 03/31/2019 [...] Encounters Date Type Department Care Team ([facility] Contact Info) Description 05/18/2025 1:00 PM EDT Office Visit [facility] Internal Medicine - Family Medicine [address] [place] [address] Emmie Daley, TROUBLE SHOOTER-NURSE SCHOOL [address] [place] [address] documented as of this encounter Visit Diagnoses Not on filedocumented in this encounter Additional Health Concerns Assessment Noted Time PHQ-9 Depression Total Score: 0 09/13/20 2:19 PM EST A Body Mass Index follow-up plan has been documented for the patient 11/03/2024 1:26 PM EST documented as of this encounter Care Teams Turning Machine Operator Helper Relationship Specialty Start Date End Date Emmie Daley, TROUBLE SHOOTER-NURSE SCHOOL [address] [place] [address] PCP - General Family Medicine 02/20/22 documented as of this encounter
--- OUTSIDE RECORDS SUMMARY | 2025-04-14 13:57 | XMS_ITS | Encounter Summary ---
Author Organization [employer] s tem Address [id number] [address] [place] [address] Care Team Providers Care Medical Coding Technician Name Role Phone Emmie Daley FOOD PROCESSOR-TIRE AND LUBE TECHNICIAN Primary Care Provid er Encounter Details Date Type Department Care Team ([facility] Contact Info) Description 06/03/2024 [facility] [address] [place] [address] Ref Prov, [place] [address] Social History Tobacco Use Types Packs/Day Years [...] Upcoming Encounters Date Type Department Care Team ([facility] Contact Info) Description 05/18/2025 1:00 PM EDT Office Visit [facility] - Family Medicine [address] [place] [phone] Emmie Daley, FOOD PROCESSOR-TIRE AND LUBE TECHNICIAN [address] [place] [address] documented as of this encounter Procedures Procedure Name Priority Date/Time Associated Diagnosis Comments CT LOW DOSE LUNG SCREENING Routine 06/02/2024 12:34 PM EDT ECHO DOPPLER Routine 06/02/2024 12:32 PM EDT documented in this encounter Results * CT low dose lung screening (Annual) (06/02/2024 12:34 PM EDT) Anatomical Region Laterality Modality Body, Lung, Chest, Body Covera C omputed Tomography us Not In System Ref Prov IMG CT ORDERABLES Final R esult * Echo Doppler (06/02/2024 12:32 PM EDT) Anatomical Region Laterality Modality Chest N/A Ultrasound [...] documented as of this encounter Care Teams Medical Coding Technician Relationship Specialty Start Date End Date Emmie Daley, FOOD PROCESSOR-TIRE AND LUBE TECHNICIAN [address] [place] [address] PCP - General Family Medicine 02/20/22 documented as of this encounter
--- OUTSIDE RECORDS SUMMARY | 2025-04-14 13:57 | XMS_ITS | Encounter Summary ---
Author Organization [employer] s tem Address [facility]-[id number] [address] [place] [address] Care Team Providers Care Sas Statistical Programmer Name Role Phone Emmie Daley PURSE FRAMER-CONCRETE BLOCK MAKER Primary Care Provid er Encounter Details Date Type Department Care Team ([facility] Contact Info) Description 07/07/2024 [facility] [address] [place] [address] Ref Prov, [place] [address] Social History Tobacco Use Types Packs/Day Years [...] Upcoming Encounters Date Type Department Care Team ([facility] Contact Info) Description 05/18/2025 1:00 PM EDT Office Visit [facility] Medicine - Family Medicine [address] [place] [address] Emmie Daley APRN-CONCRETE BLOCK MAKER [address] [place] [address] documented as of this encounter Procedures Procedure Name Priority Date/Time Associated Diagnosis Comments XR WRIST RT MIN 3 VWS Routine 07/05/2024 9:11 AM EDT documented in this encounter Results * X-ray wrist right minimum 3 views (07/05/2024 9:11 AM EDT) Anatomical Region Laterality Modality MSK, [...] as of this encounter Care Teams Sas Statistical Programmer Relationship Specialty Start Date End Date Emmie Daley, NADEEM-TESS [address] [place] [phone] PCP - General Family Medicine 02/20/22 documented as of this encounter
--- OUTSIDE RECORDS SUMMARY | 2025-04-14 13:57 | XMS_ITS | Encounter Summary ---
Author Organization [employer] s tem Address [facility] [place]-[id number] [address] [place] [address] Care Team Providers Care Nursing Coordinator Name Role Phone Emmie Daley EDGE DYER-LIGHTING ENGINEERING TECHNICIAN Primary Care Provid er Encounter Details Date Type Department Care Team ([facility] Contact Info) Description 06/08/2024 [facility] [address] [place] [address] Ref Prov, [place] [address] Social History Tobacco Use Types Packs/Day Years [...] Upcoming Encounters Date Type Department Care Team ([facility] Contact Info) Description 05/18/2025 1:00 PM EDT Office Visit [facility] - Family Medicine [address] [place] [address] Emmie Daley APRN-TESS [address] [place] [address] documented as of this encounter Procedures Procedure Name Priority Date/Time Associated Diagnosis Comments XR WRIST RT MIN 3 VWS Routine 06/07/2024 12:11 PM EDT XR ABDOMEN AP 1 VW Routine 06/02/2024 7:22 AM EDT documented in this encounter Results * X-ray wrist right minimum 3 views (06/07/2024 12:11 PM EDT) Anatomical Region Laterality Modality MSK, Upper Extremities, Wrist Right Co mputed Radiography us Not In System Ref Prov IMG DIAGNOSTIC IMAGING OR DERABLES Final Result * X-ray abdomen ap 1 view (06/02/2024 7:22 AM EDT) Anatomical Region Laterality Modality Body, Abdomen N/A Computed Radiogr aphy us Not In System Ref Prov IMG DIAGNOSTIC IMAGING OR DERABLES Final Result documented in this encounter Visit Diagnoses Not on filedocumented in this encounter Additional Health Concerns Assessment Noted Time PHQ-9 Depression Total Score: 0 04/12/20 9:23 AM EDT A Body Mass Index follow-up plan has been documented for the patient 04/12/2024 10:52 AM EDT documented as of this encounter Care Teams Nursing Coordinator Relationship Specialty Start Date End Date Emmie Daley, NADEEM-TESS [address] [place] [address] PCP - General Family Medicine 02/20/22 documented as of this encounter
--- OUTSIDE RECORDS SUMMARY | 2025-04-14 13:57 | XMS_ITS | Encounter Summary ---
Author Organization [employer] s tem Address [facility]-[id number] [address] [place] [address] Care Team Providers Care Streetcar Motorman Name Role Phone Emmie Daley DIETETIC ASSISTANT-MARKER SHIPMENTS Primary Care Provid er Encounter Details Date Type Department Care Team ([facility] Contact Info) Description 05/11/2024 [facility] [address] [place] [address] Ref Prov, [place] [address] Social History Tobacco Use Types Packs/Day Years [...] Upcoming Encounters Date Type Department Care Team ([facility] Contact Info) Description 05/18/2025 1:00 PM EDT Office Visit [facility] Medicine - Family Medicine [address] [place] [address] Emmie Daley APRN-MARKER SHIPMENTS [address] [place] [address] documented as of this encounter Procedures Procedure Name Priority Date/Time Associated Diagnosis Comments XR WRIST RT MIN 3 VWS Routine 05/10/2024 7:37 AM EDT documented in this encounter Results * X-ray wrist right minimum 3 views (05/10/2024 7:37 AM EDT) Anatomical Region Laterality Modality MSK, [...] documented as of this encounter Care Teams Streetcar Motorman Relationship Specialty Start Date End Date Emmie Daley, NADEEM-TESS [address] [place] [phone] PCP - General Family Medicine 02/20/22 documented as of this encounter
--- OUTSIDE RECORDS SUMMARY | 2025-04-14 13:57 | XMS_ITS | Encounter Summary ---
Author Organization [facility] [employer] Address [facility] [place]-[id number] [address] [place] [address] Care Team Providers Care Vegetable Harvest Worker Name Role Phone Emmie Daley TERRITORY SALES EXECUTIVE-BI DEVELOPER Primary Care Provid er Encounter Details Date Type Department Care Team (Late st Contact Info) Description 12/15/2023 Orders Only [facility] Internal Medicine - Family Medicine [address] [place] [address] Emmie Daley, TERRITORY SALES EXECUTIVE-BI DEVELOPER [address] [facility] [place] [address] Acquired hypothyroidism Social History Tobacco Use Types Packs/Day Years Used Date Smoking Tobacco: Every Day Cigarettes 0.5 56 Smokeless Tobacco: Never Alcohol Use Standard Drinks/Week Comments Yes 0 (1 standard drink = 0.6 oz pur e alcohol) on weekends, not often. PHQ-2 Answer Date Recorded Total Score 0 12/11/2023 Childcare Answer Date Recorded Childcare Unknown 03/31/2019 Employment Answer Date Recorded Employment Unknown 03/31/2019 Hunger Screening Answer Date Recorded Within the past 12 months we worried whether our food would run out before we got money to buy more. Never True 12/11/2023 Within the past 12 months th e food we bought just didn't last and we didn't have money to get more. Never True 12/11/2023 Comments Unknown Sex and Gender Information Value [...] Medicine - Family Medicine [address] [place] [address] Emmie Daley APRN-TESS [address] [place] [address] documented as of this encounter Visit Diagnoses Diagnosis Acquired hypothyroidism Unspecified hypothyroidism documented in this encounter Additional Health Concerns Assessment Noted Time PHQ-9 Depression Total Score: 0 12/11/19 24 9:37 AM EST A Body Mass Index follow-up plan has been documented for the patient 12/15/2023 5:30 PM EST documented as of this encounter Care Teams Vegetable Harvest Worker Relationship Specialty Start Date End Date Emmie Daley, TERRITORY SALES EXECUTIVE-BI DEVELOPER [address] [place] [phone] PCP - General Family Medicine 02/20/22 documented as of this encounter
--- OUTSIDE RECORDS SUMMARY | 2025-04-14 13:57 | XMS_ITS | Clinical Summary ---
Author Organization [facility] Address [address] [place] [address] Care Team Providers Care Supervisor Powdered Sugar Name Role Phone Emmie Daley MD Primary Care Provider [phone] Allergies Active Allergy Reactions Criticality Noted Date [...] Vaccination 01/13/2022 Pneumococcal Conjugate PCV 20 10/02/2022 Family History Medical History Relation Name Comments Coronary artery disease Brother Coronary artery disease Father Hypertension Father cva Father Coronary artery disease Mother Diabetes Mother Hypertension Mother Relation Name Status Comments Brother Father Mother Social History Tobacco Use Types [...] 11/17/2023 10:32 AM EST Plan of Treatment Health Maintenance Due Date Last Done Comments CT Colonography 1955 Colonoscopy 1955 Colorectal Cancer Screening 1955 FIT-DNA 1955 FIT 1955 FOBT 1955 Medicare Annual Wellness (AWV) 1955 Sigmoidoscopy 1956 Depression Screening 1968 Adult Tetanus 1978 Zoster Vaccines (1 of 2) 2006 Fall Risk Screening 2021 COVID-19 Vaccine ( season) 2024 08/14/2022, 01/13/2022, 01/13/2022, Additional history exists Mammogram 08/13/2024 08/13/2022, 08/13/2022 Influenza Vaccine (Season Ended) 2025 08/20/2023, 07/30/2022 Pneumococcal Vaccine: 50+ Years Completed 10/02/2022 HIB Vaccines Aged Out No longer eligi ble based on patient's age to complete this topic HPV Vaccines Aged Out No longer eligi ble based on patient's age to complete this topic IPV Vaccines Aged Out No longer eligi ble based on patient's age to complete this topic Meningococcal B Vaccine Aged Out No l onger eligible based on patient's age to complete this topic Meningococcal Vaccine Aged Out No camille diaz eligible based on patient's age to complete this topic Rotavirus Vaccines Aged Out No longer eligible based on patient's age to complete this topic Insurance [employer] MEDICARE Care Teams Supervisor Powdered Sugar Relationship Specialty Start Date End Date Emmie Daley MD PCP - General Family Medicine 05/23/23
--- OUTSIDE RECORDS SUMMARY | 2025-04-14 13:57 | XMS_ITS | Encounter Summary ---
Author Organization [employer] s tem Address [id number] [address] [place] [address] Care Team Providers Care Lodging Manager Name Role Phone Emmie Daley [employer]-PLATING OPERATOR Primary Care Provid er Encounter Details Date Type Department Care Team ([facility] Contact Info) Description 02/22/2022 Orders Only [facility] [address] [place] [address] [place] [address] Vianey Miranda, MICHAEL Chronic pain of right hip; Chest wall pain; Benign essential HTN; Graves disease; Mixed hyperlipidemia Social History Tobacco Use Types Packs/Day Years Used Date Smoking Tobacco: Every Day Cigarettes 0.5 56 Smokeless Tobacco: Never Alcohol Use Standard Drinks/Week Comments Yes 0 (1 standard drink = 0.6 oz pur e alcohol) on weekends, not often. PHQ-2 Answer Date Recorded Total Score 0 02/20/2022 Childcare Answer Date Recorded Childcare Unknown 03/31/2019 Employment Answer Date Recorded Employment Unknown 03/31/2019 Comments Unknown Sex and Gender Information Value Date Recorded Sex Assigned at Not on file Legal Sex Female 10:24 AM EST Gender Identity Not on file Sexual Orientation Not on file COVID-19 Exposure Response Date Recorded In the last 10 days, have yo u been in contact with someone who was confirmed or suspected to have Coronavirus/COVID-19? No / Unsure 02/20/2022 8:37 AM EDT documented as of this encounter Plan of Treatment Upcoming Encounters Date Type Department Care Team ([facility] Contact Info) Description 05/18/2025 1:00 PM EDT Office Visit [facility] [address] [place] [address] Emmie Daley, [employer]-PLATING OPERATOR [address] [place] [address] documented as of this encounter Procedures Procedure Name Priority Date/Time Associated Diagnosis Comments XR CHEST 2 VWS Routine 02/22/2022 10:23 AM EDT Chest wall pain XR HIP RT 2-3 VIEWS W OR WO PELVIS Routine 02/22/2022 10:22 AM EDT Chronic pain of right hip CBC WITH AUTO DIFFERENTIAL Routine 02/21/2022 Benign essential HTN Graves disease Chronic pain of right hip T3, FREE Routine 02/21/2022 Graves disease TSH Routine 02/21/2022 Graves disease T4, FREE Routine 02/21/2022 Graves disease LIPID PROFILE Routine 02/21/2022 Mixed hyperlipidemia COMPREHENSIVE METABOLIC PANEL Routine 02/21/2022 Benign essential HTN Graves disease documented in this encounter Results * X-ray chest 2 views (02/22/2022 10:23 AM EDT) Anatomical Region Laterality Modality Body, Chest N/A Computed Radiogr aphy Emmie Daley [facility] DIAGNOSTIC IMAGI NG ORDERABLES Final Result * X-ray hip right 2-3 views with or without pelvis (02/22/2022 10:22 AM EDT) Anatomical Region Laterality Modality Lower Extremities, MSK, Hip Right Comp uted Radiography Emmie Daley [employer]-[facility] DIAGNOSTIC IMAGI NG ORDERABLES Final Result * T4, free (02/21/2022) External T4 Free 0.91 0.76 - 1.46 MANUALLY TRANSCRIBED RESULTS 02/21/2022 Emmie J Daley [employer] LAB BLOOD ORDERABLES Final Result Performing Organization Address [facility] de Phone Number MANUALLY TRANSCRIBED RESULTS * (ABNORMAL) T3, free (02/21/2022) Pathologist [facility] External T3 Free 1.80(A) 2.18 - 3.95 MANUALLY TRANSCRIBED RESULTS 02/21/2022 Emmie J Daley PRESIDENT FINANCE COMPANYPLATING OPERATOR LAB BLOOD ORDERABLES Final Result Performing Organization Address [facility] de Phone Number MANUALLY TRANSCRIBED RESULTS * TSH (02/21/2022) [facility] External Tsh 2.872 0.470 - 4.680 MANUALLY TRANSCRIBED RESULTS 02/21/2022 Emmie PeachDaley [employer] LAB BLOOD ORDERABLES Final Result Performing Organization Address [facility] de Phone Number MANUALLY TRANSCRIBED RESULTS * Lipid profile (02/21/2022) [facility] External Cholesterol 175 <=200 MANUALLY TRANSCRIBED RESULTS External Cholesterol:Hdl 4.0 MANUALLY TRANSCRIBED RESULTS External Hdl Cholesterol 44 40 - 60 MANUALLY TRANSCRIBED RESULTS External Ldl (Calc) 101 MANUALLY TRANSCRIBED RESULTS External Triglycerides 150 <=150 MANUALLY TRANSCRIBED RESULTS External Very Low Lipoprotein 30 MANUALLY TRANSCRIBED RESULTS 02/21/2022 Emmie PeachDaley [facility] LAB BLOOD ORDERABLES Final Result Performing Organization Address [facility] Co de Phone Number MANUALLY TRANSCRIBED RESULTS * CBC auto differential (02/21/2022) [facility] External Wbc Count 7.0 4 - 11 MANUALLY TRANSCRIBED RESULTS External Rbc Count 4.94 4.2 - 5.4 MANUALLY TRANSCRIBED RESULTS External Hemoglobin 14.7 12 - 18 MANUALLY TRANSCRIBED RESULTS External Hematocrit Hct 43.5 36 - 48 MANUALLY TRANSCRIBED RESULTS External Mcv 88.1 61 - 99 MANUALL Y TRANSCRIBED RESULTS External MCH 29.8 26.7 - 34 MANUALL Y TRANSCRIBED RESULTS External Mchc 33.8 29.9 - 35.2 MANUALLY TRANSCRIBED RESULTS External Rdw 13 11 - 15 MANUALL Y TRANSCRIBED RESULTS External Platelet Count 273 150 - 450 MANUALLY TRANSCRIBED RESULTS External Mpv 10 9.5 - 13.5 MANUAL LY TRANSCRIBED RESULTS External Seg Neutrophil 65.6 43 - 75 MANUALLY TRANSCRIBED RESULTS External Lymphocyte, Atypical 1.5 1.2 - 3.8 MANUALLY TRANSCRIBED RESULTS External Absolute Lymphocyte 22.1 20.5 - 60 MANUALLY TRANSCRIBED RESULTS External Monocytes 8.8 1.7 - 12 MANUALLY TRANSCRIBED RESULTS External % Basophils 0.4 0.2 - 2 MANUALLY TRANSCRIBED RESULTS External Absolute Neutrophils 65.6 43 - 75 MANUALLY TRANSCRIBED RESULTS External Absolute Lymphocyte 1.5 1.4 - 6.5 MANUALLY TRANSCRIBED RESULTS External Absolute Monocytes 0.6 0.3 - 0.8 MANUALLY TRANSCRIBED RESULTS External Absolute Basophil 0.0 0.0 - 0.1 MANUALLY TRANSCRIBED RESULTS 02/21/2022 us Emmie Daley [employer]-PLATING OPERATOR LAB BLOOD ORDERABLES Final Result MANUALLY TRANSCRIBED RESULTS * (ABNORMAL) Comprehensive metabolic panel (02/21/2022) External Alt Sgpt 45 14 - 59 MANUALLY TRANSCRIBED RESULTS External Anion Gap 5.9 MANUALLY TRANSCRIBED RESULTS External Ast 28 15 - 97 MANUALL Y TRANSCRIBED RESULTS External Blood Urea Nitrogen Bun 17 7 - 18 MANUALLY TRANSCRIBED RESULTS External Calcium Ca 8.3(A) 8.5 - 10.1 MANUALLY TRANSCRIBED RESULTS External Chloride 103 98 - 107 MANUALLY TRANSCRIBED RESULTS External Co2 / Carbon Dioxide 29.0 21 - 32 MANUALLY TRANSCRIBED RESULTS External Creatinine 0.85 0.55 - 1.02 MANUALLY TRANSCRIBED RESULTS External Gfr Amer >60 >60 MANUALLY TRANSCRIBED RESULTS External Gfr Non Amer >60 >60 MANUALLY TRANSCRIBED RESULTS External Glucose Fasting Or Random (Fbs) 136(A) 74 - 108 MANUALLY TRANSCRIBED RESULTS External Potassium K 3.9 3.5 - 5.1 MANUALLY TRANSCRIBED RESULTS External Sodium Na 134(A) 136 - 145 MANUALLY TRANSCRIBED RESULTS Total Bilirubin 0.8 0.2 - 1.0 MANU ALLY TRANSCRIBED RESULTS External Total Protein 7.1 6.1 - 8.2 MANUALLY TRANSCRIBED RESULTS 02/21/2022 us Emmie URBINA LAB BLOOD ORDERABLES Final Result MANUALLY TRANSCRIBED RESULTS documented in this encounter Visit Diagnoses Diagnosis Chronic pain of right hip Chest wall pain Painful respiration Benign essential HTN Graves disease Toxic diffuse goiter without mention of thyrotoxic crisis or storm Mixed hyperlipidemia documented in this encounter Additional Health Concerns Assessment Noted Time PHQ-9 Depression Total Score: 0 02/21/20 8:52 AM EDT A Body Mass Index follow-up plan has been documented for the patient 02/25/2022 1:45 PM EDT documented as of this encounter Care Teams Lodging Manager Relationship Specialty Start Date End Date Emmie Daley APRN-CNP [address] [place] [address] PCP - General Family Medicine 02/20/22 documented as of this encounter
--- OUTSIDE RECORDS SUMMARY | 2025-04-14 13:57 | XMS_ITS | Encounter Summary ---
Author Organization [employer] tem Address [id number] [address] [place] [address] Care Team Providers Care Grain Elevator Man Name Role Phone Edi Emmie J DIRECTOR AGENCY & STRATEGIC PARTNERSHIPS-[employer] DEPUTY SHERIFF Primary Care Provid er Encounter Details Date Type Department Care Team (Late st Contact Info) Description 04/26/2024 Telephone [facility] [address] [facility] [place] [phone] Isidra Alexis CMA Social History Tobacco Use Types Packs/Day [...] encounter Miscellaneous Notes * Telephone Encounter - Isidra Alexis CMA - 04/26/2024 12:24 PM EDT Pt called stated that she was in the Er the other day she fell down a flight of stairs (11) and hasto go see another DR today . She just wanted you to be aware * Telephone Encounter - CARLITOS Haas - 04/26/2024 12:24 PM EDT Yes, I read the ER note from Ra * Telephone Encounter - Isidra Alexis CMA - 04/26/2024 12:24 PM EDT Ok documented in this encounter Plan of Treatment Upcoming Encounters Date Type Department Care Team (Late st Contact Info) Description 05/18/2025 1:00 PM EDT Office Visit [facility] [address] [place] [address] Emmie Daley APRN-CNP [address] [place] [address] documented as of this encounter Visit Diagnoses Not on filedocumented in this encounter Additional Health Concerns Assessment Noted Time PHQ-9 Depression Total Score: 0 04/12/20 24 9:23 AM EDT A Body Mass Index follow-up plan has been documented for the patient 04/12/2024 10:52 AM EDT documented as of this encounter Care Teams Grain Elevator Man Relationship Specialty Start Date End Date Emmie Daley APRN-CNP [address] [facility] [place] [phone] PCP - General Family Medicine 02/20/22 documented as of this encounter
--- OUTSIDE RECORDS SUMMARY | 2025-04-14 13:57 | XMS_ITS | Encounter Summary ---
Author Organization [employer] s tem Address [id number] [address] [place] [address] Care Team Providers Care Taxi Cab Driver Name Role Phone Emmie Daley INTEGRATION SOFTWARE ENGINEER-INTENSIVE CARE UNIT NURSE Primary Care Provid er Encounter Details Date Type Department Care Team ([facility] Contact Info) Description 07/09/2024 [facility] [address] [place] [address] Ref Prov, [place] [address] Social History Tobacco Use Types Packs/Day Years [...] Upcoming Encounters Date Type Department Care Team ([facility] Contact Info) Description 05/18/2025 1:00 PM EDT Office Visit [facility] Medicine [address] [place] [phone] Emmie Daley APRN-TESS [address] [place] [address] documented as of this encounter Procedures Procedure Name Priority Date/Time Associated Diagnosis Comments CT UROGRAM Routine 07/09/2024 12:43 PM EDT documented in this encounter Results * CT urogram (07/09/2024 12:43 PM EDT) Anatomical Region Laterality Modality Body, Abdomen, Body Covera N/A Compu neel Tomography us Not In System Ref Prov IMG CT ORDERABLES Final R esult documented in this encounter Visit Diagnoses Not on filedocumented in this encounter Additional Health Concerns Assessment Noted Time PHQ-9 Depression Total Score: 0 04/12/20 9:23 AM EDT A Body Mass Index follow-up plan has been documented for the patient 04/12/2024 10:52 AM EDT documented as of this encounter Care Teams Taxi Cab Driver Relationship Specialty Start Date End Date Emmie Daley, NADEEM-INTENSIVE CARE UNIT NURSE [address] [place] [phone] PCP - General Family Medicine 02/20/22 documented as of this encounter
--- OUTSIDE RECORDS SUMMARY | 2025-04-14 13:57 | XMS_ITS | Encounter Summary ---
Author Organization [employer] s tem Address [facility] [id number] [address] [place] [address] Care Team Providers Care Smt Technician Name Role Phone Emmie Daley BEEF TRIMMER-NEGATIVE TURNER Primary Care Provid er Encounter Details Date Type Department Care Team ([facility] Contact Info) Description 03/09/2024 Orders Only [facility] - Family Medicine [address] [place] [address] External, Scanning Provider Social History [...] Upcoming Encounters Date Type Department Care Team ([facility] Contact Info) Description 05/18/2025 1:00 PM EDT Office Visit [facility] - Family Medicine [address] [place] [address] Emmie Daley, BEEF TRIMMER-NEGATIVE TURNER [address] [place] [place] [phone] documented as of this encounter Procedures Procedure Name Priority Date/Time Associated Diagnosis Comments MR ANKLE RT W WO CONT Routine 03/08/2024 4:28 PM EDT documented in this encounter Results * MR ankle right with and without contrast (03/08/2024 4:28 PM EDT) Anatomical Region Laterality Modality MSK, Lower Extremities, Ankle, MSK Covera Right Magnetic Resonance us Scanning Provider External IMG MRI ORDERABLES Fi nal Result documented in this encounter Visit Diagnoses Not on filedocumented in this encounter Additional Health Concerns Assessment Noted Time PHQ-9 Depression Total Score: 0 12/11/19 24 9:37 AM EST A Body Mass Index follow-up plan has been documented for the patient 12/15/2023 5:30 PM EST documented as of this encounter Care Teams Smt Technician Relationship Specialty Start Date End Date Emmie Daley, BEEF TRIMMER-NEGATIVE TURNER [address] [facility] [place] [phone] PCP - General Family Medicine 02/20/22 documented as of this encounter
--- OUTSIDE RECORDS SUMMARY | 2025-04-14 13:57 | XMS_ITS | Encounter Summary ---
Author Organization [employer] s [employer] Address [id number] [address] [place] [address] Care Team Providers Care X Ray Examiner Of Aircraft Name Role Phone Emmie Daley TOOL ROOM MACHINIST-MANAGEMENT TRAINER Primary Care Provid er Encounter Details Date Type Department Care Team ([facility] Contact Info) Description 11/25/2024 [facility] [address] [place] [address] Ref Prov, [place] [address] Social History Tobacco Use Types Packs/Day Years [...] Upcoming Encounters Date Type Department Care Team ([facility] Contact Info) Description 05/18/2025 1:00 PM EDT Office Visit [facility] - Family Medicine [address] [place] [address] Emmie Daley APRN-MANAGEMENT TRAINER [address] [place] [address] documented as of this encounter Procedures Procedure Name Priority Date/Time Associated Diagnosis Comments XR ANKLE RT MIN 3 VWS Routine 11/22/2024 11:17 AM EST documented in this encounter Results * X-ray ankle right minimum 3 views (11/22/2024 11:17 AM EST) Anatomical Region Laterality Modality Lower Extremities, MSK, Ankle Right Co mputed Radiography us Not In System Ref Prov IMG DIAGNOSTIC IMAGING OR DERABLES Final Result documented in this encounter Visit Diagnoses Not on filedocumented in this encounter Additional Health Concerns Assessment Noted Time PHQ-9 Depression Total Score: 0 09/13/20 24 2:19 PM EST A Body Mass Index follow-up plan has been documented for the patient 11/03/2024 1:26 PM EST documented as of this encounter Care Teams X Ray Examiner Of Aircraft Relationship Specialty Start Date End Date Emmie Daley, NADEEM-MANAGEMENT TRAINER [address] [place] [address] PCP - General Family Medicine 02/20/22 documented as of this encounter
--- OUTSIDE RECORDS SUMMARY | 2025-04-14 13:57 | XMS_ITS | Encounter Summary ---
Author Organization [employer] s tem Address [id number] [address] [place] [address] Care Team Providers Care Mat Man Name Role Phone Emmie Daley APRN-FLIGHT CONTROL MANAGER Primary Care Provid er Encounter Details Date Type Department Care Team (Late st Contact Info) Description 03/10/2023 Telephone [facility] - Family Medicine [address] [place] [phone] Sandra Zuleta CMA Social History Tobacco Use Types Packs/Day Years Used Date Smoking Tobacco: Every Day Cigarettes 0.5 56 Smokeless Tobacco: Never Alcohol Use Standard Drinks/Week Comments Yes 0 (1 standard drink = 0.6 oz pur e alcohol) on weekends, not often. PHQ-2 Answer Date Recorded Total Score 0 03/03/2023 Childcare Answer Date Recorded Childcare Unknown 03/31/2019 Employment Answer Date Recorded Employment Unknown 03/31/2019 Comments Unknown Sex and Gender Information Value Date Recorded Sex Assigned at Not on file Legal Sex Female 10:24 AM EST Gender Identity Not on file Sexual Orientation Not on file documented as of this encounter Miscellaneous Notes * Telephone Encounter - Sandra Zuleta CMA - 03/10/2023 3:49 PM EDT Patient called because she forgot to mention to you that her legs are very weak and since she has been outside doing more it is getting worse. I offered her an appointment but she said she didn't need one. * Telephone Encounter - CARLITOS Haas - 03/10/2023 3:49 PM EDT This is chronic but reoccurs with her back pain. She has been very busy outdoors with chopping woodand gardening. She will call if it is intolerable. documented in this encounter Plan of Treatment Upcoming Encounters Date Type Department Care Team (Late st Contact Info) Description 05/18/2025 1:00 PM EDT Office Visit [facility] - Family Medicine [address] [place] [phone] Emmie Daley APRN-CNP [address] [place] [phone] documented as of this encounter Visit Diagnoses Not on filedocumented in this encounter Additional Health Concerns Assessment Noted Time PHQ-9 Depression Total Score: 0 03/03/20 23 1:29 PM EDT A Body Mass Index follow-up plan has been documented for the patient 03/06/2023 1:24 PM EDT documented as of this encounter Care Teams Mat Man Relationship Specialty Start Date End Date Emmie Daley APRN-CNP [address] [place] [address] PCP - General Family Medicine 02/20/22 documented as of this encounter
--- OUTSIDE RECORDS SUMMARY | 2025-04-14 13:57 | XMS_ITS | Clinical Summary ---
Author Organization [employer] Address [address] [place] [address] Care Team Providers Care Screening Representative Name Role Phone Ruy Covarrubias MD Unavailable [phone] Allergies Active Allergy Reactions Criticality Noted Date Comments Bee Venom Anaphylaxis 01/27/2013 *Paper Tape Rash 01/27/2013 Medications Respiratory Therapy Supplies (PATRICE PD) XX DANIELLE Active Tiotropium Alta Monohydrate (SPIRIVA HANDIHALER IN) take 1 Cap by inhalation daily every morning. On 01/20/2013 reports not taking in past month. Active albuterol (VENTOLIN HFA) 108 (90 BASE) MCG/ACT IN AERS take 1 Puff by inhalation 4 times daily as needed. On 01/20/2013 reports not in prior 3 months. Active lisinopril 2.5 MG PO TABS take 2.5 mg by mouth daily. 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 She reports pain in the area, but no trismus and no weight loss. 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 Smoking Assessment & Plan (01/21/2013 6:26 AM EDT): I spent 5 minutes counseling-encouraging her in smoking cessation. Chronic bronchitis with emphysema Assessment & Plan (01/21/2013 6:28 AM EDT): She has a 40-year smoking history. At [...] and supplemental inhaled oxygen if clinically indicated. History of cervical cancer Overview (01/20/2013): resected Family History Medical History Relation Name Comments Coronary Artery Disease Brother 5 CABG Cancer Father leukemia Heart Failure Father Diabetes Mother Relation Name Status Comments Brother 1 Alive 59 CABG age 59 (01/20/2013) Brother 2 Alive 55 (01/20/2013) Brother 3 Alive 54 (01/20/2013) Brother 4 Alive 53 (01/20/2013) Brother 5 Daughter 1 Alive 38 (01/20/2013) Daughter 2 Alive 37 (01/20/2013) Father (Age 72) leukemia Mother Alive 74 DM age 40, born with one lung (01/20/2013) Sister Alive 58 (01/20/2013) Social History Tobacco Use Types Packs/Day Years Used Date Smoking Tobacco: Every Day Cigarettes 0.5 47 Smokeless Tobacco: Never Tobacco Cessation:Ready to Q uit: No; Counseling Given: Yes Alcohol Use Standard Drinks/Week Comments Yes 2.5 (1 standard drin k = 0.6 oz pure alcohol) On 01/20/2013 reports drinking 4-5 beers once a week, but several months in a row without. Comments No Sex and Gender Information Value Date Recorded Sex Assigned at Not on file Legal Sex Female 2:39 PM EDT Gender Identity Not on file Sexual Orientation Not on file Occupation Industry Job Start Date Job End Date Not on file Not on file Not on file Not on file Last Filed Vital Signs Vital Sign Reading Time Taken Comments Blood Pressure 124/58 01/11/2014 12:52 PM EDT Pulse 88 01/11/2014 12:52 PM EDT Temperature 36.8 C (98.2 F) 01/11/2014 12:52 PM EDT Respiratory Rate 16 01/11/2014 12:5 2 PM EDT Oxygen Saturation 94% 09/20/2013 5:45 PM EST Inhaled Oxygen Concentration - - Weight 84.2 kg (185 lb 11.2 oz) 014 12:52 PM EDT Height 161.3 cm (5' 3.5 ) 09/20/2013 8:40 AM EST Body Mass Index 32.38 09/20/2013 8:40 AM EST Plan of Treatment Health Maintenance Due Date Last Done Comments DEXA SCAN DISCUSSION 1955 HEPATITIS C VIRUS SCREENING 1956 TETANUS 1956 PNEUMOCOCCAL VACCINE SERIES (1 of 2 - PCV) 1975 TDAP (ADULT) 1975 CERVICAL CANCER SCREENING DISCUSSION 1977 LIPID SCREENING 1996 COLORECTAL CANCER SCREENING DISCUSSION 2001 ZOSTER (SHINGLES) VACCINE (1 of 2) 2006 RSV VACCINE (1 - Risk 60-74 years 1-dose series) 2016 MAMMOGRAM SCREENING DISCUSSION 08/13/2023 08/13/2022 COVID-19 VACCINE ( season) 2024 08/14/2022, 01/13/2022, 07/14/2021, Additional history exists INFLUENZA VACCINE (Season Ended) 2025 07/30/2022 HEP B VACCINE Aged Out No longer elig ible based on patient's age to complete this topic Advance Directives For more information, please contact: [phone] (7:30 AM - 6PM [facility], Friday-Friday) * Full Code (Latest Code Status on File) Date Activated Date Inactivated Comments 09/20/2013 8:32 AM 09/20/2013 8:27 PM * Full Code Date Activated Date Inactivated Comments 01/27/2013 8:12 AM 01/27/2013 2:26 PM Care Teams Screening Representative Relationship Specialty Start Date End Date Ruy Covarrubias MD [address] [place] [address] PCP - Referring 1 Otolaryngology 01/20/13
--- OUTSIDE RECORDS SUMMARY | 2025-04-14 13:58 | XMS_ITS | Encounter Summary ---
Author Organization Patient Communicator Sys tem Address [id number] [address] [place] [address] Care Team Providers Care Dental Technician Name Role Phone Emmie Daley Rick POLYSOMNOGRAPHIC TECHNICIAN-KILN REMOVER Primary Care Provid er Encounter Details Date Type Department Care Team (Late st Contact Info) Description 11/20/2022 Telephone [facility] - Family Medicine [address] [place] [phone] Vianey Miranda CMA Social History Tobacco Use [...] have Coronavirus / COVID-19? No / Unsure 10/31/2022 12:41 PM EST documented as of this encounter Miscellaneous Notes * Telephone Encounter - Vianey Miranda CMA - 11/20/2022 2:41 PM EST Pt called, said she is ready to see a kidney doctor, please send referral. * Telephone Encounter - CARLITOS Haas - 11/20/2022 2:41 PM EST Discussion was urology for history of kidney stones. She is or was once established with DR. Singh. Can you inquire where she would like to go.? Please remind her will take up to 6 weeks to be seen.If pain is persistent and worsening, she will need to go to ER> * Telephone Encounter - Vianey Miranda CMA - 11/20/2022 2:41 PM EST Pt has family hx of kidney problems, mom had one kidney and lost it, daughter has had kidney removed, pt has a lot of problems with large kidney stones. She never heard from dr singh office in [place]. Should we resend, or would nephrology be more appropriate? Pt would like to stay as close to home as possible. * Telephone Encounter - CARLITOS Haas - 11/20/2022 2:41 PM EST Urology. Nephrology does not treat kidney stones. Her kidney function is normal. * Telephone Encounter - Vianey Miranda CMA - 11/20/2022 2:41 PM EST Gail can you please resend referral for singh? * Telephone Encounter - Gail Paredes MA - 11/20/2022 2:41 PM EST refaxed documented in this encounter Plan of Treatment Upcoming Encounters Date Type Department Care Team (Late st Contact Info) Description 05/18/2025 1:00 PM EDT Office Visit [facility] [address] [place] [phone] Emmie Daley APRN-TESS [address] [place] [address] documented as of this encounter Visit Diagnoses Not on filedocumented in this encounter Additional Health Concerns Assessment Noted Time PHQ-9 Depression Total Score: 0 07/30/20 22 8:12 AM EDT A Body Mass Index follow-up plan has been documented for the patient 11/18/2022 5:59 AM EST documented as of this encounter Care Teams Dental Technician Relationship Specialty Start Date End Date Emmie Daley APRN-CNP [address] [place] [phone] PCP - General Family Medicine 02/20/22 documented as of this encounter
--- OUTSIDE RECORDS SUMMARY | 2025-04-14 13:58 | XMS_ITS | Encounter Summary ---
Author Organization [employer] [facility] tem Address [facility] [id number] [address] [place] [address] Care Team Providers Care Decal Cutter Name Role Phone Emmie Daley BLEACH RANGE OPERATOR-HYDRAULIC GOVERNOR ASSEMBLER Primary Care Provid er Reason for Visit * Reason Comments Med Refill Encounter Details Date Type Department Care Team ([facility] Contact Info) Description 10/24/2022 Refill [facility] [address] [place] [address] Emmie Daley, BLEACH RANGE OPERATOR-HYDRAULIC GOVERNOR ASSEMBLER [address] [place] [phone] Graves disease Social History Tobacco Use Types Packs/Day Years [...] Upcoming Encounters Date Type Department Care Team ([facility] Contact Info) Description 05/18/2025 1:00 PM EDT Office Visit [facility] - [facility] [address] [place] [address] Emmie Daley, BLEACH RANGE OPERATOR-HYDRAULIC GOVERNOR ASSEMBLER [address] [place] [address] documented as of this encounter Visit Diagnoses Diagnosis Graves disease Toxic diffuse goiter without mention of thyrotoxic crisis or storm documented in this encounter Additional Health Concerns Assessment Noted Time PHQ-9 Depression Total Score: 0 07/30/20 8:12 AM EDT A Body Mass Index follow-up plan has been documented for the patient 07/09/2022 5:59 PM EDT documented as of this encounter Care Teams Decal Cutter Relationship Specialty Start Date End Date Emmie Daley, BLEACH RANGE OPERATOR-HYDRAULIC GOVERNOR ASSEMBLER [address] [facility] [place] [address] PCP - General Family Medicine 02/20/22 documented as of this encounter
--- OUTSIDE RECORDS SUMMARY | 2025-04-14 13:58 | XMS_ITS | Encounter Summary ---
Author Organization [employer] [facility] tem Address [facility] [id number] [address] [place] [address] Care Team Providers Care Branch Assistant Name Role Phone Emmie Daley AUTOCLAVE OPERATOR-OUTSIDE DEALER SALES REPRESENTATIVE Primary Care Provid er Reason for Visit * Reason Comments Med Refill Encounter Details Date Type Department Care Team ([facility] Contact Info) Description 09/04/2022 Refill [facility] [address] [place] [address] Emmie Daley, AUTOCLAVE OPERATOR-OUTSIDE DEALER SALES REPRESENTATIVE [address] [place] [address] Anxiety and depression Social History Tobacco Use Types Packs/Day Years [...] Upcoming Encounters Date Type Department Care Team ([facility] Contact Info) Description 05/18/2025 1:00 PM EDT Office Visit [facility] [address] [place] [address] Emmie Daley APRN-TESS [address] [place] [address] documented as of this encounter Visit Diagnoses Diagnosis Anxiety and depression documented in this encounter Additional Health Concerns Assessment Noted Time PHQ-9 Depression Total Score: 0 07/30/20 8:12 AM EDT A Body Mass Index follow-up plan has been documented for the patient 07/09/2022 5:59 PM EDT documented as of this encounter Care Teams Branch Assistant Relationship Specialty Start Date End Date Emmie Daley APRN-TESS [address] [place] [address] PCP - General Family Medicine 02/20/22 documented as of this encounter
--- OUTSIDE RECORDS SUMMARY | 2025-04-14 13:58 | XMS_ITS | Encounter Summary ---
Author Organization [employer] s tem Address [facility] [place] [id number] [address] [place] [address] Care Team Providers Care Fire Crew Specialist Name Role Phone Emmie Daley DUPLIGRAPH OPERATOR-TILLER WORKER Primary Care Provid er Encounter Details Date Type Department Care Team ([facility] Contact Info) Description 08/14/2022 Orders Only [facility] [address] [place] [address] Vianey Miranda CMA Asymptomatic menopause; Encounter for screening for osteoporosis; Encounter for screening mammogram for malignant neoplasm of breast Social History Tobacco Use Types Packs/Day Years [...] Upcoming Encounters Date Type Department Care Team ([facility] Contact Info) Description 05/18/2025 1:00 PM EDT Office Visit [facility] - Family Medicine [address] [place] [address] Emmie Daley APRN-CNP [address] [place] [address] documented as of this encounter Procedures Procedure Name Priority Date/Time Associated Diagnosis Comments DEXA SCAN CENTRAL SKELETAL Routine 08/14/2022 2:05 PM EDT Asymptomatic menopause Encounter for screening for osteoporosis MAMM SCREENING BILATERAL W CAD Routine 08/13/2022 Encounter for screening mammogram for malignant neoplasm of breast documented in this encounter Results * Dexa scan central skeletal (08/14/2022 2:05 PM EDT) Anatomical Region Laterality Modality N/A Radiographic Amarilis ging Emmie Daley APRN-TILLER WORKER [facility] [place] DXA ORDERABLES F inal Result * Mammography screening bilateral with CAD (08/13/2022) Anatomical Region Laterality Modality Breast Bilateral Mammography 08/13/2022 us Emmie Daley APRN-TILLER WORKER [facility] MAMMOGRAPHY ORDE RABLES Final Result documented in this encounter Visit Diagnoses Diagnosis Asymptomatic menopause Encounter for screening for osteoporosis Encounter for screening mammogram for malignant neoplasm of breast documented in this encounter Additional Health Concerns Assessment Noted Time PHQ-9 Depression Total Score: 0 07/30/20 8:12 AM EDT A Body Mass Index follow-up plan has been documented for the patient 07/09/2022 5:59 PM EDT documented as of this encounter Care Teams Fire Crew Specialist Relationship Specialty Start Date End Date Emmie Daley APRN-CNP [address] [place] [address] PCP - General Family Medicine 02/20/22 documented as of this encounter
--- OUTSIDE RECORDS SUMMARY | 2025-04-14 13:58 | XMS_ITS | Encounter Summary ---
Author Organization [facility] [employer] Sys tem Address [id number] [address] [place] [address] Care Team Providers Care Computer Applications Engineer Name Role Phone Emmie Daley SOCIAL MEDIA DESIGNER-BUSINESS PLANNING MANAGER Primary Care Provid er Reason for Visit * Reason Comments Med Refill Encounter Details Date Type Department Care Team ([facility] Contact Info) Description 11/17/2022 Refill [facility] [address] [place] [place] [address] Emmie Daley, SOCIAL MEDIA DESIGNER-BUSINESS PLANNING MANAGER [address] [place] [address] Arthritis, multiple joint involvement Social History Tobacco Use Types Packs/Day Years [...] PM EST documented as of this encounter Plan of Treatment Upcoming Encounters Date Type Department Care Team ([facility] Contact Info) Description 05/18/2025 1:00 PM EDT Office Visit [facility] [address] [place] [address] Emmie Daley APRN-TESS [address] [place] [address] documented as of this encounter Visit Diagnoses Diagnosis Arthritis, multiple joint involvement Unspecified arthropathy, multiple sites documented in this encounter Additional Health Concerns Assessment Noted Time PHQ-9 Depression Total Score: 0 07/30/20 22 8:12 AM EDT A Body Mass Index follow-up plan has been documented for the patient 11/18/2022 5:59 AM EST documented as of this encounter Care Teams Computer Applications Engineer Relationship Specialty Start Date End Date Emmie Daley APRN-BUSINESS PLANNING MANAGER [address] [place] [address] PCP - General Family Medicine 02/20/22 documented as of this encounter
--- OUTSIDE RECORDS SUMMARY | 2025-04-14 13:58 | XMS_ITS | Encounter Summary ---
Author Organization [employer] s tem Address [facility][id number] [address] [place] [address] Care Team Providers Care Stone Paver Name Role Phone Emmie Daley HIDE CURER-SANDER OPERATOR Primary Care Provid er Encounter Details Date Type Department Care Team ([facility] Contact Info) Description 06/20/2023 Orders Only [facility] - Family Medicine [address] [place] [phone] Vianey Miranda CMA Graves disease; Elevated glucose; Mixed hyperlipidemia; Benign essential HTN Social History Tobacco Use [...] Encounters Date Type Department Care Team ([facility] Contact Info) Description 05/18/2025 1:00 PM EDT Office Visit [facility] - Family Medicine [address] [address] Emmie Daley, HIDE CURER-SANDER OPERATOR [address] [place] [address] documented as of this encounter Procedures Procedure Name Priority Date/Time Associated Diagnosis Comments CBC WITH AUTO DIFFERENTIAL Routine 06/19/2023 Benign essential HTN T3, FREE Routine 06/19/2023 Graves disease TSH Routine 06/19/2023 Graves disease T4, FREE Routine 06/19/2023 Graves disease HEMOGLOBIN A1C Routine 06/19/2023 Elevated glucose LIPID PROFILE Routine 06/19/2023 Mixed hyperlipidemia COMPREHENSIVE METABOLIC PANEL Routine 06/19/2023 Benign essential HTN documented in this encounter Results * (ABNORMAL) Comprehensive metabolic panel (06/19/2023) External Albumin 3.7 3.4 - 5.0 MAN UALLY TRANSCRIBED RESULTS External Alt Sgpt 51 14 - 59 MANUALLY TRANSCRIBED RESULTS External Anion Gap 11.8 MANUALLY TRANSCRIBED RESULTS AST 33 15 - 37 MANUALLY TRANSCRIBED RESULTS External Blood Urea Nitrogen Bun 19(A) 7 - 18 MANUALLY TRANSCRIBED RESULTS External Calcium Ca 9.4 8.5 - 10.1 MANUALLY TRANSCRIBED RESULTS External Chloride 103 98 - 107 MANUALLY TRANSCRIBED RESULTS External Co2 / Carbon Dioxide 30.2 21 - 32 MANUALLY TRANSCRIBED RESULTS External Creatinine 0.83 0.55 - 1.02 MANUALLY TRANSCRIBED RESULTS External Gfr Amer >60 >60 MANUALLY TRANSCRIBED RESULTS External Gfr Non Amer >60 >60 MANUALLY TRANSCRIBED RESULTS External Alkaline Phosphatase 67 46 - 116 MANUALLY TRANSCRIBED RESULTS External Glucose Fasting Or Random (Fbs) 132(A) 74 - 106 MANUALLY TRANSCRIBED RESULTS External Potassium K 5 3.5 - 5.1 MANUALLY TRANSCRIBED RESULTS External Sodium Na 140 136 - 145 MANUALLY TRANSCRIBED RESULTS Total Bilirubin 0.8 0.2 - 1.0 MANU ALLY TRANSCRIBED RESULTS External Total Protein 7.9 6.4 - 8.2 MANUALLY TRANSCRIBED RESULTS 06/19/2023 us Emmie Daley HIDE CURER-SANDER OPERATOR LAB BLOOD ORDERABLES Final Result MANUALLY TRANSCRIBED RESULTS * (ABNORMAL) CBC auto differential (06/19/2023) External Wbc Count 6.4 4 - 11 MANUALLY TRANSCRIBED RESULTS External Rbc Count 5.36 4.20 - 5.40 MANUALLY TRANSCRIBED RESULTS External Hemoglobin 16.3(A) 12 - 16 MANUALLY TRANSCRIBED RESULTS External Hematocrit Hct 47.6 36 - 48 MANUALLY TRANSCRIBED RESULTS External Mcv 88.8 81 - 99 MANUALL Y TRANSCRIBED RESULTS External MCH 30.4 26.7 - 34 MANUALL Y TRANSCRIBED RESULTS External Mchc 34.2 29.9 - 35.2 MANUALLY TRANSCRIBED RESULTS External Rdw 12.6 11 - 15 MANUALL Y TRANSCRIBED RESULTS External Platelet Count 258 150 - 450 MANUALLY TRANSCRIBED RESULTS External Mpv 10.7 9.5 - 13.5 MANUALLY TRANSCRIBED RESULTS External Seg Neutrophil 3.9 1.4 - 6.5 MANUALLY TRANSCRIBED RESULTS External Lymphocyte, Atypical 25.5 20.5 - 60 MANUALLY TRANSCRIBED RESULTS External Absolute Lymphocyte 1.6 1.2 - 3.8 MANUALLY TRANSCRIBED RESULTS External Monocytes 9.7 1.7 - 12 MANUALLY TRANSCRIBED RESULTS External % Basophils 0.6 0.2 - 2.0 MANUALLY TRANSCRIBED RESULTS External Absolute Neutrophils 3.9 1.4 - 6.5 MANUALLY TRANSCRIBED RESULTS External Absolute Lymphocyte 1.6 1.2 - 3.8 MANUALLY TRANSCRIBED RESULTS External Absolute Monocytes 0.6 0.3 - 0.8 MANUALLY TRANSCRIBED RESULTS External Absolute Basophil 0 0 - 0.1 MANUALLY TRANSCRIBED RESULTS 06/19/2023 us Emmie Daley HIDE CURER-SANDER OPERATOR LAB BLOOD ORDERABLES Final Result MANUALLY TRANSCRIBED RESULTS * (ABNORMAL) Lipid profile (06/19/2023) External Cholesterol 166 0 - 200 MANUALLY TRANSCRIBED RESULTS External Cholesterol:Hdl 4 3.3 - 7.1 MANUALLY TRANSCRIBED RESULTS External Hdl Cholesterol 40 40 - 60 MANUALLY TRANSCRIBED RESULTS External Ldl (Calc) 93.0 0 - 100 MANUALLY TRANSCRIBED RESULTS External Triglycerides 165(A) 0 - 150 MANUALLY TRANSCRIBED RESULTS External Very Low Lipoprotein 33 MANUALLY TRANSCRIBED RESULTS 06/19/2023 Emmie Daley APRNBioGreen TeckSANDER OPERATOR LAB BLOOD ORDERABLES Final Result Performing Organization Address [facility] de Phone Number MANUALLY TRANSCRIBED RESULTS * Hemoglobin A1c (06/19/2023) External Hemoglobin A1C 5.7 4.5 - 6.2 % MANUALLY TRANSCRIBED RESULTS 06/19/2023 Emmie Daley [facility]IDE [facility] Final Result Performing Organization Address [facility] de Phone Number MANUALLY TRANSCRIBED RESULTS * (ABNORMAL) TSH (06/19/2023) External Tsh 7.566(A) 0.358 - 3.740 MANUALLY TRANSCRIBED RESULTS 06/19/2023 Emmie Cabrera Daley HIDE [facility] LAB [facility] Final Result Performing Organization Address [facility] de Phone Number MANUALLY TRANSCRIBED RESULTS * (ABNORMAL) T3, free (06/19/2023) External T3 Free 2.02(A) 2.18 - 3.98 MANUALLY TRANSCRIBED RESULTS 06/19/2023 Emmie Cabrera Daley HIDE [facility] LAB [facility]LO[facility] Final Result Performing Organization Address City/[facility] Co de Phone Number MANUALLY TRANSCRIBED RESULTS * (ABNORMAL) T4, free (06/19/2023) External T4 Free 0.58(A) 0.76 - 1.46 MANUALLY TRANSCRIBED RESULTS 06/19/2023 Emmie BackpackDaley HIDE CUREROC LAB BLOOD ORDERABLES Final Result MANUALLY TRANSCRIBED RESULTS documented in this encounter Visit Diagnoses Diagnosis Graves disease Toxic diffuse goiter 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
--- OUTSIDE RECORDS SUMMARY | 2025-04-14 13:58 | XMS_ITS | Encounter Summary ---
Author Organization [facility] [employer] [facility] tem Address [id number] [address] [place] [address] Care Team Providers Care Medical Nurse Name Role Phone Emmie Daley CHAIR FINISHER-MOP HANDLE ASSEMBLER Primary Care Provid er Encounter Details Date Type Department Care Team ([facility] Contact Info) Description 12/27/2022 [facility] [address] [place] [phone] External, Scanning Provider Social History Tobacco Use Types Packs/Day Years Used Date Smoking Tobacco: Every Day Cigarettes 0.5 56 Smokeless Tobacco: Never Alcohol Use Standard Drinks/Week Comments Yes 0 (1 standard drink = 0.6 oz pur e alcohol) on weekends, not often. PHQ-2 Answer Date Recorded Total Score 6 12/09/2022 Childcare Answer Date Recorded Childcare Unknown 03/31/2019 [...] have Coronavirus / COVID-19? No / Unsure 12/09/2022 2:31 PM EST documented as of this encounter Plan of Treatment Upcoming Encounters Date Type Department Care Team ([facility] Contact Info) Description 05/18/2025 1:00 PM EDT Office Visit [facility] Internal Medicine - Family Medicine [address] [place] [phone] Emmie Daley, CHAIR FINISHER-MOP HANDLE ASSEMBLER [address] [place] [address] documented as of this encounter Procedures Procedure Name Priority Date/Time Associated Diagnosis Comments CT UROGRAM Routine 12/27/2022 documented in this encounter Results * CT urogram (12/27/2022) Anatomical Region Laterality Modality Body, Abdomen, Body Covera N/A Compu neel Tomography us Scanning Provider External IMG CT ORDERABLES Fin al Result documented in this encounter Visit Diagnoses Not on filedocumented in this encounter Additional Health Concerns Assessment Noted Time PHQ-9 Depression Total Score: 6 12/09/19 23 2:55 PM EST A Body Mass Index follow-up plan has been documented for the patient 12/09/2022 7:05 PM EST documented as of this encounter Care Teams Medical Nurse Relationship Specialty Start Date End Date Emmie Daley, CHAIR FINISHER-MOP HANDLE ASSEMBLER [address] [place] [phone] PCP - General Family Medicine 02/20/22 documented as of this encounter
--- OUTSIDE RECORDS SUMMARY | 2025-04-14 13:58 | XMS_ITS | Encounter Summary ---
Author Organization [employer] s tem Address [facility] [id number] [address] [place] [address] Care Team Providers Care Air Tucker Name Role Phone Emmie Daley [employer] CROWN PRESSER-CARE COORDINATION MANAGER Primary Care Provid er Encounter Details Date Type Department Care Team ([facility] Contact Info) Description 05/29/2023 Orders Only [facility] - Family Medicine [address] [place] [address] External, Scanning Provider Social History [...] Upcoming Encounters Date Type Department Care Team ([facility] Contact Info) Description 05/18/2025 1:00 PM EDT Office Visit [facility] - Family Medicine [address] [place] [address] Emmie Daley, NADEEM-CARE COORDINATION MANAGER [address] [place] [address] documented as of this encounter Procedures Procedure Name Priority Date/Time Associated Diagnosis Comments CT LOW DOSE LUNG SCREENING Routine 05/29/2023 11:51 AM EDT documented in this encounter Results * CT low dose lung screening (Annual) (05/29/2023 11:51 AM EDT) Anatomical Region Laterality Modality Body, Lung, Chest, Body Covera C omputed Tomography us Scanning Provider External IMG CT ORDERABLES Fin al Result documented in this encounter Visit Diagnoses Not on filedocumented in this encounter Additional Health Concerns Assessment Noted Time PHQ-9 Depression Total Score: 0 03/03/20 23 1:29 PM EDT A Body Mass Index follow-up plan has been documented for the patient 03/06/2023 1:24 PM EDT documented as of this encounter Care Teams Air Tucker Relationship Specialty Start Date End Date Emmie Daley APRN-CARE COORDINATION MANAGER [address] [place] [phone] PCP - General Family Medicine 02/20/22 documented as of this encounter
--- OUTSIDE RECORDS SUMMARY | 2025-04-14 13:58 | XMS_ITS | Encounter Summary ---
Author Organization [employer] s tem Address [facility] [place][id number] [address] [place] [address] Care Team Providers Care Mink Slicer Name Role Phone Emmie Daley RESIDENCE COUNSELOR-LEARNING DESIGNER Primary Care Provid er Encounter Details Date Type Department Care Team ([facility] Contact Info) Description 04/28/2023 Orders Only [facility] - Family Medicine [address] [place] [phone] Ref Prov, [place] [address] Social History Tobacco Use Types Packs/Day Years [...] Upcoming Encounters Date Type Department Care Team ([facility] Contact Info) Description 05/18/2025 1:00 PM EDT Office Visit [facility] - Family Medicine [address] [place] [address] Emmie Daley, NADEEM-LEARNING DESIGNER [address] [place] [address] documented as of this encounter Procedures Procedure Name Priority Date/Time Associated Diagnosis Comments XR ABDOMEN AP 1 VW Routine 04/28/2023 documented in this encounter Results * X-ray abdomen ap 1 view (04/28/2023) Anatomical Region Laterality Modality Body, Abdomen N/A [...] documented as of this encounter Care Teams Mink Slicer Relationship Specialty Start Date End Date Emmie Daley, NADEEM-LEARNING DESIGNER [address] [place] [address] PCP - General Family Medicine 02/20/22 documented as of this encounter
--- OUTSIDE RECORDS SUMMARY | 2025-04-14 13:58 | XMS_ITS | Encounter Summary ---
Author Organization [employer] Address [id number] [address] [place] [address] Care Team Providers Care Roof Truss Detailer Name Role Phone Emmie Daley RAG INSPECTOR-STOREKEEPER STEWARD Primary Care Provid er Encounter Details Date Type Department Care Team ([facility] Contact Info) Description 10/07/2022 Orders Only [facility] - Family Medicine [address] [place] [address] External, Scanning Provider Social History [...] on file documented as of this encounter Progress Notes * Vianey Miranda CMA - 10/07/2022 12:18 PM EST Pt was notified in office. documented in this encounter Plan of Treatment Upcoming Encounters Date Type Department Care Team ([facility] Contact Info) Description 05/18/2025 1:00 PM EDT Office Visit [facility] - Family Medicine [address] [place] [address] Emmie Daley, RAG INSPECTOR-STOREKEEPER STEWARD [address] [place] [address] documented as of this encounter Procedures Procedure Name Priority Date/Time Associated Diagnosis Comments IMMUNE FECAL OB - FIT Routine 09/18/2022 documented in this encounter Results * Immune fecal OB (09/18/2022) Occult blood fecal Positive MANUALLY TRANSCRIBED RESULTS 09/18/2022 us Scanning Provider External BODY FLUIDS AND STOOL S ORDERABLES Final Result MANUALLY TRANSCRIBED RESULTS documented in this encounter Visit Diagnoses Not on filedocumented in this encounter Additional Health Concerns Assessment Noted Time PHQ-9 Depression Total Score: 0 07/30/20 8:12 AM EDT A Body Mass Index follow-up plan has been documented for the patient 07/09/2022 5:59 PM EDT documented as of this encounter Care Teams Roof Truss Detailer Relationship Specialty Start Date End Date Emmie Daley APRN-TESS [address] [place] [address] PCP - General Family Medicine 02/20/22 documented as of this encounter
--- NOTE | 2025-04-14 14:27 | PM.WCHP ---
Wound Care H&P: HPI History of Present Illness Narrative: Robyn is a very pleasant 69-year-old female who presents for routine nail care. She is a current smoker. She does admit to symptoms of claudication at times. She also has what she calls restless leg syndrome and paresthesias in her feet worse at nighttime. Meds Home Medications and Allergies Home Medications ?Medication ?Instructions ?Recorded ?Confirmed ?Type tramadol 50 mg tablet 50 mg PO Q6H PRN pain 5 days #20 07/17/23 04/25/24 Rx tabs albuterol sulfate 90 mcg/actuation 1 inh inhalation Q6H PRN 04/25/24 04/25/24 History aerosol inhaler bronchospasm diclofenac sodium 75 mg 75 mg PO Q12H 04/25/24 04/25/24 History tablet,delayed release fluoxetine 10 mg capsule 10 mg PO .QHS 04/25/24 04/25/24 History fluticasone fur. 100 mcg-umeclid 1 inh inhalation Q24H 04/25/24 04/25/24 History 62.5 mcg-vilant 25 mcg inhalat.powder (Trelegy Ellipta) gabapentin 100 mg capsule 100 mg PO Q12H 04/25/24 04/25/24 History gabapentin 300 mg capsule 300 mg PO Q12H 04/25/24 04/25/24 History levothyroxine 25 mcg tablet 25 mcg PO DAILY 04/25/24 04/25/24 History losartan 25 mg tablet 25 mg PO DAILY 04/25/24 04/25/24 History metoprolol tartrate 25 mg tablet 25 mg PO Q12H 04/25/24 04/25/24 History spironolactone 25 mg tablet 25 mg PO DAILY 04/25/24 04/25/24 History trazodone 150 mg tablet 150 mg PO .QHS 04/25/24 04/25/24 History Allergies Allergy/AdvReac Type Severity Reaction Status Date / Time No Known Drug Allergies Allergy Verified 07/17/23 08:44 Exam Narrative: Exam Narrative: Derm: Toenails 1 through 10 are thickened, elongated, and painful.? The toenails are diffusely incurvated. There is ingrowing of the left hallux lateral nail without evidence of paronychia. Skin is diffusely dry, thin, and atrophic.? Vascular: DP and PT pulses are nonpalpable bilaterally.? DP pulses are 1/4 bilaterally.? Capillary refill is less than 3 seconds to all toes. Digital hair is absent bilaterally. Neuro: Vibratory sensation is present bilaterally.? Achilles deep tendon reflex is 1+ bilaterally.? Protective sensation was tested with a monofilament and is present in 0/5 areas tested on the right and 3/5 areas tested on the left.? Musculoskeletal: No gross deformity.? Strength 5/5 in all planes bilaterally Assessment and Plan Assessment and Plan (1) Diminished pulses in lower extremity: (2) Tinea unguium: (3) Ingrown nail: Charlene Carlson is a pleasant 69-year-old female with history of tobacco use disorder who presents for routine nail care. Follow-up in 3 months. Acute Procedures Podiatry Nail Debridement Class B Findings Absent posterior tibial pulse: bilateral Advanced trophic changes as evidenced by any three of the following: decreased hair growth, nail changes (thickening) and skin texture (thin or shiny) Class C Findings Claudication: Yes Edema: Yes Burning: Yes Qualifies If: Qualifiers If:: A patient qualifies for nail debridement if they have: 1 class A finding (Q7) 2 class B findings (Q8) OR 1 class B & 2 class C findings in addition to a primary condition (Q9) Nail Procedure Nail Procedure Time out: Yes Nail procedure: other (Debridement of toenails 1 through 10) Number of affected nails: 10 Location (toes): left and right Procedure successful: Yes Patient tolerated procedure: well and no complications Additional comments: Toenails 1 through 10 were sharply debrided with nail nippers without incident. Ingrown toenail was removed from the left lateral nail border without incident. The nails were filed to her satisfaction.
== END 2025-04-14 13:54 | disposition home or self-care (01) ==
LOC: WC 13:54
PROVIDERS: PCP Nurse Practitioner; Visit Provider Physician Assistant
DX: B35.1 Tinea unguium (principal); L60.0 Ingrowing nail; I73.9 Peripheral vascular disease, unspecified; G25.81 Restless legs syndrome; R20.2 Paresthesia of skin; F17.200 Nicotine dependence, unspecified, uncomplicated; R09.89 Other specified symptoms and signs involving the circulatory and respiratory systems
CPT/HCPCS: 11721

== ENCOUNTER 2025-07-14 13:28 | Outpatient (OUT) | payer MEDICARE, MEDICAID, SELFPAY ==
--- NOTE | 2025-07-14 13:35 | PM.WCHP ---
Wound Care H&P: HPI History of Present Illness Narrative: Robyn is a very pleasant 69-year-old female who presents for routine nail care. She is a current smoker. She does admit to symptoms of claudication at times. She also has what she calls restless leg syndrome and paresthesias in her feet worse at nighttime. Meds Home Medications and Allergies Home Medications ?Medication ?Instructions ?Recorded ?Confirmed ?Type tramadol 50 mg tablet 50 mg PO Q6H PRN pain 5 days #20 07/17/23 04/25/24 Rx tabs albuterol sulfate 90 mcg/actuation 1 inh inhalation Q6H PRN 04/25/24 04/25/24 History aerosol inhaler bronchospasm diclofenac sodium 75 mg 75 mg PO Q12H 04/25/24 04/25/24 History tablet,delayed release fluoxetine 10 mg capsule 10 mg PO .QHS 04/25/24 04/25/24 History fluticasone fur. 100 mcg-umeclid 1 inh inhalation Q24H 04/25/24 04/25/24 History 62.5 mcg-vilant 25 mcg inhalat.powder (Trelegy Ellipta) gabapentin 100 mg capsule 100 mg PO Q12H 04/25/24 04/25/24 History gabapentin 300 mg capsule 300 mg PO Q12H 04/25/24 04/25/24 History levothyroxine 25 mcg tablet 25 mcg PO DAILY 04/25/24 04/25/24 History losartan 25 mg tablet 25 mg PO DAILY 04/25/24 04/25/24 History metoprolol tartrate 25 mg tablet 25 mg PO Q12H 04/25/24 04/25/24 History spironolactone 25 mg tablet 25 mg PO DAILY 04/25/24 04/25/24 History trazodone 150 mg tablet 150 mg PO .QHS 04/25/24 04/25/24 History Allergies Allergy/AdvReac Type Severity Reaction Status Date / Time No Known Drug Allergies Allergy Verified 07/17/23 08:44 Exam Narrative: Exam Narrative: Derm: Toenails 1 through 10 are thickened, elongated, mycotic and painful.? The toenails are diffusely incurvated. Skin is diffusely dry, thin, and atrophic.? Vascular: DP and PT pulses are nonpalpable bilaterally.? DP pulses are 1/4 bilaterally.? Capillary refill is less than 3 seconds to all toes. Digital hair is absent bilaterally. Neuro: Vibratory sensation is present bilaterally.? Achilles deep tendon reflex is 1+ bilaterally.? Protective sensation was tested with a monofilament and is present in 0/5 areas tested on the right and 3/5 areas tested on the left.? Musculoskeletal: No gross deformity.? Strength 5/5 in all planes bilaterally Assessment and Plan Assessment and Plan (1) Diminished pulses in lower extremity: (2) Tinea unguium: (3) Ingrown nail: Plan Robyn is a pleasant 69-year-old female with history of tobacco use disorder who presents for routine nail care. Follow-up in 3 months. Acute Procedures Podiatry Nail Debridement Class B Findings Absent posterior tibial pulse: bilateral Advanced trophic changes as evidenced by any three of the following: decreased hair growth, nail changes (thickening) and skin texture (thin or shiny) Class C Findings Claudication: Yes Edema: Yes Burning: Yes Qualifies If: Qualifiers If:: A patient qualifies for nail debridement if they have: 1 class A finding (Q7) 2 class B findings (Q8) OR 1 class B & 2 class C findings in addition to a primary condition (Q9) Nail Procedure Nail Procedure Time out: Yes Nail procedure: other (Debridement of toenails 1 through 10) Number of affected nails: 10 Location (toes): left and right Procedure successful: Yes Patient tolerated procedure: well and no complications Additional comments: Toenails 1 through 10 were sharply debrided with nail nippers without incident. The nails were filed to her satisfaction.
--- OUTSIDE RECORDS SUMMARY | 2025-07-14 13:36 | XMS_ITS | CCD ---
Author Organization [facility] Care Team Providers Care Gearcase Assembler Name Role Phone RANDAL ORTIZ Attending Unavailable Daley ELECTRIC POWERLINE EXAMINER - DATA MANAGEMENT SPECIALIST, Jairo J Primary Care [facility] ider BRAULIO LASSITER Consulting Unavailable AJIT ., JERI Attending Unavailable AJIT ., JERI Admitting Unavailable DLAEY, JAIRO Primary Care Unavailable AJIT ., JERI [...] Consulting Unavailable DALEY, JAIRO Primary Care Unavailable HIGHLANDER, SUNNY Laws Attending Unavailable HOMERO, SUNNY Laws Admitting Unavailable HIGHLYANN, SUNNY Laws Consulting Unavailable Unavailable Primary Care Provider Unavailshabbir e JAIRO DALEY Referring Unavailable DALEY, JAIRO J Primary Care Unavailable PRANAV TRINIDAD Attending Unavailable Daley ELECTRIC POWERLINE EXAMINER - DATA MANAGEMENT SPECIALIST, Jairo J Primary Care Prov ider CRISTOBAL OWENS Attending Unavailable EDI, JAIRO Referring Unavailable CRISTOBAL OWENS Attending Unavailable CRISTOBAL OWENS Attending Unavailable CRISTOBAL OWENS Attending Unavailable CRISTOBAL OWENS Attending Unavailable MD Wanda Hagan Attending Provider [phone] Edi, JACOB-C Jairo Cabrera Primary Care Provider Jairo Spears Unavailable [phone] Unallocated Shania ISRAEL Provider Primary Care Provi nabeel Edi ELECTRIC POWERLINE EXAMINER-Jairo PULIDO Primary Care Provid er Edi DIRECTORY COMPILER-CJairo Primary Care Provider Hay Rea MD Attending Provider JAIRO DALEY Attending Unavailable DALEYRIA CARLOSERIE J Referring Unavailable DLAEY, JAIRO J Primary Care Unavailable JAIRO DALEY Attending Unavailable DALEY, JAIRO J Referring Unavailable DALEY, JAIRO Rick Primary Care Unavailable DALEY, JAIRO Cabrera Attending Unavailable DALEY, JAIRO J Referring Unavailable DALEY, JAIRO J Primary Care Unavailable DALEY, JAIRO J Attending Unavailable DALEY, JAIRO J Referring Unavailable DALEY, JAIRO J Primary Care Unavailable DALEY, JAIRO J Attending Unavailable DALEY, JAIRO J Referring Unavailable DALEY, JAIRO J Primary Care Unavailable DALEY, JAIRO J Attending Unavailable DALEY, JAIRO Rick Referring Unavailable DALEY, JAIRO J Primary Care Unavailable Daley DIRECTORY COMPILER-C, Jairo Cabrera Primary Care Provider Hay Rea MD Attending Provider Hay Rea MD Referring Provider Daley ELECTRIC POWERLINE EXAMINER-DATA MANAGEMENT SPECIALIST, Jairo Moore Primary Care Unavailable Imtiaz Garvin Attending Unavailable Daley ELECTRIC POWERLINE EXAMINER-DATA MANAGEMENT SPECIALIST, Jiaro Moore Primary Care Unavailable Bertram DPM, Brant Sun Attending Unavailab le Daley ELECTRIC POWERLINE EXAMINER-DATA MANAGEMENT SPECIALIST, Jairo Moore Primary Care Unavailable Bertram DPM, Brant Sun Attending Unavailab le Bertram DPM, Brant Sun Admitting Unavailab le Geckle ELECTRIC POWERLINE EXAMINER-DATA MANAGEMENT SPECIALIST, Jayda Patel Attending Unavailable Daley ELECTRIC POWERLINE EXAMINER-DATA MANAGEMENT SPECIALIST, Jairo Moore Primary Care Unavailable Daley ELECTRIC POWERLINE EXAMINER-DATA MANAGEMENT SPECIALIST, Jairo Moore Primary Care Unavailable Bertram DPM, Brant Sun Attending Unavailab le Laudick PA-C, Nat Zaman Attending Unava ilable Daley ELECTRIC POWERLINE EXAMINER-DATA MANAGEMENT SPECIALIST, Jairo Oscar Primary Care Unavailable Daley ELECTRIC POWERLINE EXAMINER-DATA MANAGEMENT SPECIALIST, Jairo Oscar Primary Care Unavailable Imtiaz Garvin Attending Unavailable Daley ELECTRIC POWERLINE EXAMINER-DATA MANAGEMENT SPECIALIST, Jairo Oscar Primary Care Unavailable Bertram DPM, Brant Sun Attending Unavailab le Bertram DPM, Brant Sun Attending Unavailab le Daley ELECTRIC POWERLINE EXAMINER-DATA MANAGEMENT SPECIALIST, Jairo Moore Primary Care Unavailable Bertram DPM, Brant Sun Attending Unavailab le Daley ELECTRIC POWERLINE EXAMINER-DATA MANAGEMENT SPECIALIST, Jairo Oscar Primary Care Unavailable Bertram DPM, Brant Sun Attending Unavailab le Daley ELECTRIC POWERLINE EXAMINER-DATA MANAGEMENT SPECIALIST, Jairo Oscar Primary Care Unavailable Imtiaz Garvin Attending Unavailable Bertram DPM, Brant Sun Attending Unavailab le Bertram DPM, Brant Sun Attending Unavailab le Daley ELECTRIC POWERLINE EXAMINER-DATA MANAGEMENT SPECIALIST, Jairo Moore Primary Care Unavailable Daley DIRECTORY COMPILER-C, Jairo Cabrera Primary Care Provider Hay Rea MD Attending Provider Chantale Cardona MD Attending Provider Jairo Daley Primary Care Unavailable Chantale Cardona Admitting Unavailable Chantale Cardona Attending Unavailable Jairo Daley Primary Care Unavailable Hay Rea Admitting Unavai lable Álvaro, Hay Yang Attending Segun Rea, Hay Yang Referring RomyvaJairo Diaz Primary Care Unavailable Hay Rea Admitting Unavai lable Koromia, Hay Yang Attending Unavai lable Asaad, Imad Admitting Unavailable Asaad, Imad Attending Unavailable Jairo Daley Primary Care Unavailable JASON DOMINGUEZ Referring Unavailable JAIRO DALEY Primary Care Unavailable Allergies Allergy Classification Reported Allergen(s) Allergy Type Date of Onset Reaction(s) Facility (6 sources) Silicone adhesive tape Propensity to adverse reactions to drug 3 Rash [facility] (1 source) bee venom Drug allergy (disorder) 6 [facility] (1 source) Latex Drug allergy (disorder) [facility] (4 sources) Honey bee venom Allergy to substance 3 Anaphylaxis [facility] (13 sources) Lisinopril; Translations: [LISINOPRIL] Propensity to adverse reactions 3 Cough [facility] (4 sources) Attends Briefs Small Drug Intolerance 3 Rash [facility] (16 sources) Adhesive agent; Translations: [ADHESIVE] Propensity to adverse reactions to drug (disorder) 3 Rash [facility] (16 sources) BEE VENOM PROTEIN (HONEY BEE); Translations: [BEE VENOM PROTEIN (HONEY BEE)] Propensity to adverse reactions to drug (disorder) 3 [facility] (14 sources) Lisinopril Drug Allergy 3 Cough [facility] (6 sources) venom-honey bee; Translations: [venom-honey bee] Allergy to substance [address] [facility] (1 source) Adhesive Tape; Translations: [Tape] Propensity to adverse reactions (disorder) [facility] Rep[facility] (1 source) Bee/Wasp/Ant venom; Translations: [Bee Stings] Propensity to adverse reactions (disorder) [facility] (1 source) Lisinopril Drug Allergy [address] [facility] Repository NEGATED: Highlighted row has been ruled out! (6 sources) Other Propensity to adverse reactions 2 [facility] Medications Current Medications Medication Drug Class(es) [...] 1 tab Q 4 hrs PRN Active [id number] 200 actuat albuterol 0.09 mg/actuat metered dose inhaler (20 sources) beta2-Adrenergic Agonist Start: 07-07-2024 Start: 03-03-2023 End: 01-15-2024 take 2 puff(s) by inhalation every four hours as needed for wheezing albuterol (PROVENTIL HFA;VENTOLIN HFA) 90 mcg/actuation inhaler Indications: Chronic bronchitis with emphysema ([facility]) Inhale 2 puffs every 4 (four) hours [...] 4 times a day PRN 0 Active amLODIPine 10 mg oral tablet (2 sources) Dihydropyridine Calcium Channel Julio C Start: 07-05-2025 take 1 tablet by mouth once daily atomoxetine 25 mg oral capsule (3 sources) Norepinephrine Reuptake Inhibitor Start: 02-06-2012 take 1 capsule by mouth once daily atomoxetine (STRATTERA) 25 MG capsule Take 1 capsule by mouth daily. 30 capsule 11 02/06/2012 Active azithromycin 250 mg oral tablet (1 source) Macrolide Antimicrobial Start: 09-13-2024 End: 09-17-2024 azithromycin (ZITHROMAX) 250 mg tablet Indications: COPD exacerbation (CMS-HCC) Take 2 tablets the first day, then 1 tablet daily for 4 days. 6 tablet 09/13/2024 09/17/2024 Active diclofenac sodium 75 mg delayed release oral tablet (20 sources) Nonsteroidal Anti-inflammatory Drug Start: 08-20-2023 End: 12-16-2024 take 1 tablet by mouth twice daily Start: 11-17-2022 take 1 tablet by tapan in the morning diclofenac (VOLTAREN) 75 MG EC tablet diclofenac sodium 75 mg tablet,delayed release TAKE 1 TABLET BY MOUTH IN THE MORNING AND 1 TABLET BEFORE BEDTIME 0 11/17/2022 Active [id number] 0.3 ml EPINEPHrine 1 mg/ml auto-injector (19 sources) alpha-Adrenergic Agonist, beta-Adrenergic Agonist, Catecholamine Start: [...] 02/07/2012 Active FLUoxetine 10 mg oral capsule (20 sources) Serotonin Reuptake Inhibitor Start: 08-03-2023 End: 12-16-2024 take 1 capsule by mouth once daily Start: 09-04-2022 take 1 capsule by mo [facility] once daily FLUoxetine (PROZAC) 10 MG capsule fluoxetine 10 mg capsule TAKE 1 CAPSULE (10 MG TOTAL) BY MOUTH NIGHTLY. 0 09/04/2022 Active Arpanyaqpwa-Sxhhfjrxo-Pmxakj er (20 sources) Anticholinergic, Corticosteroid, beta2-Adrenergic Agonist Start: 12-14-2024 Start: 12-14-2024 Fluticasone-Um eclidin-Vilanter (Trelegy Ellipta) 100-62.5-25 mcg blister with device Active 1 INH INHALATION Once December 14, 2024 1:00am Start: 12-14-2024 Fluticasone-Um eclidin-Vilanter (Trelegy Ellipta) 100-62.5-25 mcg blister with device Active 1 INH INHALATION Once December 14, 2024 12:00am Start: 08-20-2023 End: 12-16-2024 take 1 puff(s) by mouth once daily TRELEGY ELLIPTA 100-62.5-25 mcg blister with device Indications: Chronic bronchitis with emphysema (CMS-HCC) INHALE 1 PUFF BY MOUTH EVERYDAY *RINSE MOUTH AFTER USE* Strength: 100-62.5-25 mcg 28 each 6 12/16/2024 Active gabapentin 300 mg oral capsule (20 sources) Anti-epileptic Agent Start: 07-07-2024 take 1 capsule by mouth twice daily Start: 08-20-2023 End: 12-16-2024 take 1 capsule by mouth once daily in the morning gabapentin (NEURONTIN) 100 mg capsule Indications: Fibromyalgia TAKE 1 CAPSULE BY MOUTH EVERY MORNING AND AFTERNOON 180 capsule 1 12/16/2024 Active Start: 10-28-2022 End: 12-16-2024 take 1 capsule by mouth once daily at bedtime levothyroxine sodium 0.025 m g oral tablet (20 sources) l-Thyroxine Start: 12-15-2023 End: 12-16-2024 take 1 tablet by mouth once daily Start: 10-02-2023 End: 12-15-2023 take 1 tablet by mouth in the morning levothyroxine (SYNTHROID, LEVOTHROID) 50 MCG tablet Indications: Acquired hypothyroidism TAKE 1 TABLET BY MOUTH IN THE MORNING 90 tablet 1 10/02/2023 12/15/2023 Discontinued (Reorder) lisinopril 10 mg oral tablet (6 sources) Angiotensin Converting Enzyme Inhibitor Start: 06-25-2023 End: 12-22-2023 take 1 tablet by mouth in the morning lisinopril 10 MG tablet Take 10 mg by mouth in the morning. 06/25/2023 Active losartan potassium 100 mg oral tablet (20 sources) Angiotensin 2 Receptor Julio C Start: 11-03-2024 End: 11-03-2025 take 1 tablet by mouth once daily Start: 07-03-2023 End: 04-12-2025 take 1 tablet by mouth once daily Losartan 25 mg tablet Discontinued 25 MG PO Daily July 07, 2024 12:00am December 15, 2024 4:11pm methocarbamol 500 mg oral tablet (4 sources) Muscle Relaxant take 1 tablet by mouth three times daily as needed methocarbamol (Robaxin) 500 MG tablet Take 1 tablet by mouth 3 (three) times a day as needed Active metoprolol tartrate 25 mg oral tablet (20 sources) beta-Adrenergic Julio C Start: 2022 End: 2024 take 1 tablet by mouth twice daily at mealtime nitroglycerin 0.4 mg sublingual tablet (20 sources) Nitrate Vasodilator nitroglyceri n (NITROSTAT) 0.4 MG SL tablet as directed Sublingual Active propylthiouracil 50 mg oral tablet (12 sources) Thyroid Hormone Synthesis Inhibitor Start: 2022 End: 2023 propylthiouracil (PTU) 50 MG tablet propylthiouracil 50 mg tablet TAKE 1 TABLET BY MOUTH IN THE MORNING, 1 TABLET AT NOON, 1 TABLET BEFORE BEDTIME 10/31/2022 Active tiotropium (5 sources) Anticholinergic Tiotropium Bromi de Monohydrate (SPIRIVA HANDIHALER IN) Inhale into the lungs daily. 0 Active traMADol hydrochloride 50 mg oral tablet (17 sources) Opioid Agonist Start: 2023 End: 2024 take 1 tablet by mouth every six hours as needed Start: 01-14-2023 End: 04-19-2024 take 1 tablet by mouth every eight hours as needed for pain traMADoL (ULTRAM) 50 mg tablet Indications: Arthritis, multiple joint involvement Take 1 tablet (50 mg total) by mouth every 8 (eight) hours as needed for pain for up to 10 days. 20 tablet 0 12/11/2023 12/21/2023 Active UNABLE TO FIND (5 sources) UNABLE TO FIND E pi pen PRN 0 Active Completed/Discontinued Medications Medication Drug Class(es) Dates Sig (Normalized) Sig (Original) [id number] Kfa-Ttsr-Dzw-Asb-C (6 sources) Osmotic Laxative, Vitamin C Start: 06-04-2024 End: 12-15-2024 take 1 dose by mouth once daily [id number] Tvy-Zway-Gyn-Asb-C (Plenvu) 140-9-5.2 gram powder in packet, sequential Discontinued 140 ML PO .COMPLEX 1 June 04, 2024 12:00am December 15, 2024 4:12pm First dose at 4pm the day before colonoscopy, Second dose at 11pm the night before the colonoscopy Start: 06-04-2024 End: 12-15-2024 take 1 dose by mouth once daily [id number] Txl-Odkq-Nsz-Asb-C (Plenvu) 140-9-5.2 gram powder in packet, sequential Discontinued 140 ML PO .COMPLEX 1 June 03, 2024 11:00pm December 15, 2024 3:12pm First dose at 4pm the day before colonoscopy, Second dose at 11pm the night before the colonoscopy Start: 06-04-2024 take 1 dose by mouth once daily [id number] Lgx-Svnh-Adg-Asb-C (Plenvu) 140-9-5.2 gram powder in packet, sequential Active 140 ML PO .COMPLEX 1 June 04, 2024 12:00am First dose at 4pm the day before colonoscopy, Second dose at 11pm the night before the colonoscopy Fluticasone Propion-Salmeterol (11 sources) Corticosteroid, beta2-Adrenergic Agonist Start: 07-07-2024 End: 07-05-2025 take 1 puff(s) by inhalation twice daily Fluticasone Propion-Salmeterol (Advair Diskus) 500-50 mcg/dose blister with device Discontinued 1 INH INHALATION Twice daily July 07, 2024 12:00am July 05, 2025 9:28am FreeTextSi puff Inhalation Twice a day; Note: Source Status: Taking; Provider: Neha Collazo ( ) Start: 07-07-2024 take 1 puff(s) by in halation twice daily Fluticasone Propion-Salmeterol (Advair Diskus) 500-50 mcg/dose blister with device Active 1 INH INHALATION Twice daily July 06, 2024 11:00pm FreeText[employer] puff Inhalation Twice a day; Note: Source Status: Taking; Provider: Neha Collazo ( ) Start: 07-07-2024 take 1 puff(s) by in halation twice daily Fluticasone Propion-Salmeterol (Advair Diskus) 500-50 mcg/dose blister with device Active 1 INH INHALATION Twice daily July 07, 2024 12:00am FreeTextSi puff Inhalation Twice a day; Note: Source Status: Taking; Provider: Neha Collazo ( ) fluticasone-salm eterol (ADVAIR) 250-50 MCG/DOSE AEPB Inhale 1 puff into the lungs every 12 hours. 2 puffs 0 Active hydroCHLOROthiazide 12.5 mg / lisinopril 10 mg oral tablet (6 sources) Thiazide Diuretic, Angiotensin Converting Enzyme Inhibitor Start: 07-07-2024 End: 07-07-2024 take 1 tablet by mouth once daily Lisinopril-Hydrochlorothiazide 10-12.5 mg tablet Discontinued 1 TAB PO Daily July 07, 2024 12:00am July 07, 2024 8:17am FreeText[employer] tablet Orally Once a day; Note: Source Status: Not-TakingundefinedPRN; Provider: Neha Collazo ( ) iopamidol ([id number]) [...] daily x4 days 11 tablet 09/13/2024 Active spironolactone 25 mg oral tablet (20 sources) Aldosterone Antagonist Start: 05-23-2023 End: 12-16-2025 take 1 tablet by mouth once daily Spironolactone 25 mg tablet Discontinued 25 MG PO Daily December 14, 2024 1:00am December 15, 2024 4:11pm traZODone hydrochloride 50 mg oral tablet (20 sources) Serotonin Reuptake Inhibitor Start: 07-07-2024 End: 12-15-2024 take 1 tablet by mouth once daily at bedtime Trazodone 50 mg tablet Discontinued 50 MG PO Daily at bedtime July 07, 2024 12:00am December 15, 2024 4:11pm FreeTextSi tablet at bedtime as needed Orally Once a day; Note: Source Status: Taking; Provider: Neha Collzao ( ) Start: 10-31-2022 End: 12-16-2024 take 1 tablet by mouth once daily at bedtime Problems Active Problems Problem Classification Problem Date Documented Date Episodic/Chronic Anxiety disorders (6 sources) Mixed anxiety and depressive disorder; Translations: [Anxiety disorder, unspecified] Onset: 04-12-2024 04-12-2024 Chronic Bacterial infection; unspecified site (1 source) Other specified bacterial agents as the cause of diseases classified elsewhere; Translations: [Other specified bacterial agents as the cause of diseases classified elsewhere] Onset: 10-06-2024 Episodic Cancer of cervix (1 source) Personal history of malignant neoplasm of cervix uteri; Translations: [PERS HX MALIG NEOPLASM CERV UTERI] Onset: 12-05-2022 Episodic Cardiac dysrhythmias (1 source) Unspecified atrial fibrillation; Translations: [Unspecified atrial fibrillation] Onset: 07-05-2025 Chronic Chronic obstructive pulmonary disease and bronchiectasis (20 [...] usually diagnosed in infancy, childhood, or adolescence (19 sources) Attention deficit hyperactivity disorder, predominantly inattentive [...] WITHOUT ESOPHAGITIS] Onset: 12-05-2022 Chronic Essential hypertension (20 sources) Essential (primary) hypertension; Translations: [Benign essential hypertension] Onset: 11-10-2019 Chronic Genitourinary symptoms and ill-defined conditions (4 sources) Rafael hematuria; Translations: [Gross hematuria] Episodic Headache; including migraine (1 source) Headache; including migraine; Translations: [HEADACHE UNSPECIFIED] Onset: 10-25-2022 Heart valve disorders (19 sources) Nonrheumatic mitral (valve) insufficiency; Translations: [Non-rheumatic mitral regurgitation ] Onset: 06-14-2021 Chronic Hypertension with complications and secondary hypertension (4 sources) Hypertensive heart disease without heart failure; Translations: [Unspecified hypertensive heart disease without heart failure] 12-15-2024 Chronic Joint disorders and dislocations; trauma-related (20 sources) Chondromalacia of left patella; Translations: [Chondromalacia patellae, left knee] Onset: 11-11-2022 11-11-2022 Chronic Miscellaneous mental health disorders (7 sources) Primary insomnia; Translations: [Primary insomnia] Onset: 08-20-2023 03-24-2024 Chronic Mood disorders (1 source) Depression Onset: 04-12-2024 Chronic Mood disorders (14 sources) Mood disorders; Translations: [Depression, unspecified] Onset: 04-12-2024 Resolved: 12-16-2024 09-13-2024 Osteoarthritis (16 sources) Unspecified osteoarthritis, unspecified site; Translations: [Osteoarthritis of joint of right ankle and/or foot] Onset: 06-21-2022 12-04-2023 Chronic Other aftercare (1 source) Other chcf (current) drug therapy; Translations: [OTH HALF-WAY CURRENT DRUG THERAPY] Onset: 12-05-2022 Episodic Other connective tissue disease (2 sources) Disorder of musculoskeletal system; Translations: [Other specified disorders of synovium, right ankle and foot] 12-04-2023 Episodic Other ear and sense organ disorders (1 source) Unspecified hearing loss, left ear; Translations: [UNSPECIFIED HEARING LOSS LEFT EAR] Onset: 12-05-2022 Chronic Other ear and sense organ disorders (17 sources) Sensorineural hearing loss, unilateral, left ear, with unrestricted hearing on the contralateral side; Translations: [Sensorineural hearing loss, unilateral] Onset: 10-21-2022 Chronic Other ear and sense organ disorders (1 source) Unspecified hearing loss, unspecified ear; Translations: [UNS HEARING LOSS UNSPECIFIED EAR] Onset: 06-21-2022 Chronic Other ear and sense organ disorders (13 sources) Deafness of left ear; Translations: [Unspecified hearing loss, left ear] Onset: 04-01-2022 04-01-2022 Chronic Other lower respiratory disease (3 sources) Pleurodynia; Translations: [PLEURODYNIA] Onset: 12-03-2022 Episodic Other nervous system disorders (1 source) Other chronic pain; Translations: [OTHER CHRONIC PAIN] Onset: 12-05-2022 Chronic Other nervous system disorders (13 sources) Chronic pain syndrome; Translations: [Chronic pain syndrome] Onset: 11-11-2022 11-11-2022 Chronic Other non-traumatic joint disorders (6 sources) Arthropathy of multiple joints; Translations: [Arthropathy, unspecified] 04-12-2024 Chronic Other non-traumatic joint disorders (1 source) Arthropathy, unspecified; Translations: [Arthropathy, unspecified] Onset: 04-12-2024 Chronic Other nutritional; endocrine; and metabolic disorders (1 source) Obesity, unspecified; Translations: [OBESITY UNSPECIFIED] Onset: 03-11-2022 Chronic Other nutritional; endocrine; and metabolic disorders (1 source) Body mass index (BMI) 35.0-35.9, adult; Translations: [BODY MASS INDEX BMI 35.0-35.9 ADULT] Onset: 03-11-2022 Chronic Other nutritional; endocrine; and metabolic disorders (15 sources) Morbid obesity; Translations: [Morbid (severe) obesity due to excess calories] Onset: 11-11-2022 11-11-2022 Chronic Other nutritional; endocrine; and metabolic disorders (1 source) Morbid (severe) obesity due to excess calories; Translations: [Morbid (severe) obesity due to excess calories] Onset: 11-11-2022 Chronic Other upper respiratory infections (2 sources) Chronic maxillary sinusitis; Translations: [Chronic sinusitis, unspecified] Onset: 10-25-2022 Chronic Residual codes; unclassified (1 source) Acquired absence of both cervix and uterus; Translations: [ACQUIRED ABSENCE BOTH CERVIX AND UTERUS] Onset: 12-05-2022 Episodic Screening and history of mental health and substance abuse codes (1 source) H/O: depression; Translations: [Personal history of other mental and behavioral disorders] 12-16-2024 Episodic Spondylosis; intervertebral disc disorders; other back problems (20 sources) Lumbar post-laminectomy syndrome; Translations: [Postlaminectomy syndrome, not elsewhere classified] Onset: 11-11-2022 11-11-2022 Chronic Spondylosis; intervertebral disc disorders; other back problems (1 source) Dorsalgia, unspecified; Translations: [DORSALGIA UNSPECIFIED] Onset: 12-05-2022 Episodic Substance-related disorders (20 sources) Nicotine dependence, cigarettes, uncomplicated; Translations: [Nicotine dependence, cigarettes, with unspecified nicotine-induced disorders] Onset: 04-01-2022 Chronic Superficial injury; contusion (3 sources) Contusion of left front wall of thorax, initial encounter; Translations: [Contusion of right elbow, initial encounter] Onset: 03-11-2022 Episodic Thyroid disorders (20 sources) Thyrotoxicosis with diffuse goiter without thyrotoxic crisis or storm; Translations: [Graves' disease] Onset: 05-25-2020 04-01-2022 Chronic Unclassified (1 source) Annual Exam Onset: 09-13-2024 Unclassified (1 source) fibro Onset: 08-10-2024 Past or Other Problems Problem Classification Problem Date Documented Da te Episodic/Chronic Abdominal pain (4 sources) Unspecified abdominal pain; Translations: [UNSPECIFIED ABDOMINAL PAIN] Onset: 08-07-2022 Episodic Calculus of urinary tract (20 sources) Kidney stone; Translations: [Calculus of kidney] Onset: 08-11-2022 Episodic Cancer of ovary (1 source) Personal history of malignant neoplasm of ovary; Translations: [PERSONAL HX MALIG NEOPLASM OVARY] Onset: 06-21-2022 Episodic Cardiac dysrhythmias (13 sources) Intermittent palpitations; Translations: [Palpitations] Onset: 05-23-2023 08-20-2023 Episodic Gastrointestinal hemorrhage (4 sources) Melena; Translations: [MELENA] Onset: 06-19-2022 Episodic Immunizations and screening for infectious disease (4 sources) Encounter for screening for other viral diseases; Translations: [Viral screening status] Onset: 12-11-2023 12-11-2023 Episodic Mycoses (3 sources) Onychomycosis; Translations: [Tinea unguium] 12-04-2023 Episodic Nonspecific chest pain (18 sources) Atypical chest pain; Translations: [Other chest pain] Onset: 05-19-2018 08-20-2023 Episodic Other bone disease and musculoskeletal deformities (1 source) Other specified disorders of bone density and structure, left thigh; Translations: [OTH D/O BONE DEN STRUCT LT THIGH] Onset: 08-18-2022 Episodic Other bone disease and musculoskeletal deformities (13 sources) Bone cyst; Translations: [Other cyst of bone, unspecified site] Onset: 05-23-2023 08-20-2023 Episodic Other connective tissue disease (1 source) Pain in right foot; Translations: [PAIN IN RIGHT FOOT] Onset: 04-04-2022 Episodic Other connective tissue disease (3 sources) Pain of toes of bilateral feet; Translations: [Pain in right toe(s)] 12-04-2023 Episodic Other connective tissue disease (20 sources) Fibromyalgia; Translations: [Fibromyalgia] Onset: 11-11-2022 11-11-2022 Episodic Other connective tissue disease (1 source) Fibromyalgia; Translations: [Fibromyalgia] Onset: 11-11-2022 Episodic Other infections; including parasitic (1 source) H/O: infectious disease; Translations: [Personal history of other infectious and parasitic diseases] 11-17-2023 Episodic Other non-traumatic joint disorders (4 sources) Pain in right ankle and joints of right foot; Translations: [PAIN IN RIGHT ANKLE] Onset: 07-03-2022 Episodic Other non-traumatic joint disorders (4 sources) Pain in right elbow; Translations: [PAIN IN RIGHT ELBOW] Onset: 03-08-2022 Episodic Other screening for suspected conditions (not mental disorders or infectious disease) (8 sources) Encounter for screening for osteoporosis; Translations: [Encounter for screening mammogram for malignant neoplasm of breast] Onset: 08-18-2022 04-12-2024 Episodic Other upper respiratory infections (1 source) Acute maxillary sinusitis, unspecified; Translations: [ACUTE MAXILLARY SINUSITIS UNS] Onset: 10-25-2022 Episodic Residual codes; unclassified (19 sources) Insomnia; Translations: [Insomnia, unspecified] Onset: 02-06-2012 [...] AMS, low o2 stats Onset: 09-11-2022 Unclassified (13 sources) Onset: 10-06-2024 Resolved: 12-16-2024 10-06-2024 Results Test Name Value Interpretation Reference Range Facility Orthopedic Office/Clinic Not [facility] 06-24-2025 Orthopedic Office/Clinic Note Chief Complaint F/U Lt Knee Pain History of Present Illness The content of this note was generated by an artificial intelligence (AI) language dictation. The patient or guardian has given their consent for the use of AI technology during the visit to capture and process the conversation. The AI will assist in providing information and support throughout the discussion. The AI will not store personal or sensitive information beyond the scope of this session, and the purpose is solely to facilitate the conversation. The patient is a 69-year-old female with a history of osteoarthritis and kidney stones, presenting with left knee pain. Left Knee Pain and Osteoarthritis The patient reports persistent pain in the left knee, mainly on the inside, which is currently throbbing and severe following a recent injection. She states the injection provided significant relief on one side of the knee but only partial relief on the other. She denies recent trauma or falls. Previous x-rays showed mild arthritis, and she has not had an MRI. She has completed limited physical therapy. The patient is not ready to consider surgery and prefers to continue with injections. She also notes ongoing pain in both knees. Bilateral Leg Swelling, Renal, and Cardiac History The patient reports persistent swelling in both legs. She has a history of recurrent kidney stones and underwent multiple procedures in childhood due to obstructed kidney tubes. She is currently under surveillance for kidney function and has an upcoming nephrology appointment at the end of the month. She reports no known current kidney failure. Family history is notable for her mother having only one kidney and her youngest daughter having a cadaveric kidney. The patient reports seeing a rn new graduate for her valve prior to her reconstructive foot surgery but has not returned since. She denies signs of infection or cellulitis. Social History The patient is a current smoker and is actively attempting to quit. Review of Systems Constitutional: Positive for smoking and trying to quit smoking. Cardiovascular: Positive for holding on to water in legs. Negative for signs of infection or cellulitis. Genitourinary: Positive for kidney stones. Musculoskeletal: Positive for swollen legs. Cardiac: Warm well-perfused distal extremities, regular rate and rhythm Lungs: Nonlabored breathing on room air Abdomen: Soft and nontender Physical Exam Extremities: Bilateral lower extremity pitting edema, no active signs of cellulitis or infection No signs of infection or cellulitis in the lower extremities Physical examination of the left knee: Physical semination left knee demonstrates no obvious signs of open wounds, skin is intact, mild to moderate intra-articular effusion, significant medial and mild lateral joint line tenderness, significantly painful with attempted Sangeetha's, full range of motion from 0 to 130 degrees of flexion however significant pain on terminal flexion, no evidence of varus or valgus instability on stress examination Additional Vitals No qualifying data available. Assessment and Plan: 1. Left knee pain 2. Osteoarthritis of left knee At this point time, the patient seems to be dealing with recurrent medial sided joint line tenderness. Concern for underlying moderate medial compartment osteoarthritis versus underlying meniscal pathology. She does have some joint space narrowing however given the location and severity of her symptoms I am concerned that she may have underlying meniscal pathology as well. However, given the constellation of her overall health and symptoms on presentation today including the bilateral lower extremity swelling and concern for underlying systemic etiology, we did elect to proceed with a repeat left knee injection. The risks and benefits of a left knee injection were discussed with the patient. The risk and benefits discussed include but are not limited to: Bleeding, infection, damage to nerves arteries and veins, the risk of subcutaneous fatty atrophy or skin depigmentation, the risk of a steroid flare as well as failure to relieve symptoms. After these risk and benefits were discussed, the patient was amenable to proceeding with a left knee injection. After obtaining consent, 3 mL of 2% lidocaine without epinephrine, 3 mL of .5% bupivacaine without epinephrine and 40 mg of Kenalog were drawn into a 10 mL syringe. The solution was injected into the left knee using a superolateral approach under sterile technique. The patient tolerated the procedure well without any complications. Patient was advised to ice the knee tonight to reduce swelling and inflammation. Patient was advised to avoid high-impact activities for 2 to 3 days following the injection. The patient was in good understanding of the plan. The patient tolerated this injection very well. The patient was advised to ice tonight and take it easy over the next week or so. Steroid may take 3 to 5 days to set in. The pa (more content not included)... [facility] Orthopedic Office/Clinic Note Chief Complaint F/U Lt Knee Pain History of Present Illness The content of this note was generated by an artificial intelligence (AI) language dictation. The patient or guardian has given their consent for the use of AI technology during the visit to capture and process the conversation. The AI will assist in providing information and support throughout the discussion. The AI will not store personal or sensitive information beyond the scope of this session, and the purpose is solely to facilitate the conversation. The patient is a 69-year-old female with a history of osteoarthritis and kidney stones, presenting with left knee pain. Left Knee Pain and Osteoarthritis The patient reports persistent pain in the left knee, mainly on the inside, which is currently throbbing and severe following a recent injection. She states the injection provided significant relief on one side of the knee but only partial relief on the other. She denies recent trauma or falls. Previous x-rays showed mild arthritis, and she has not had an MRI. She has completed limited physical therapy. The patient is not ready to consider surgery and prefers to continue with injections. She also notes ongoing pain in both knees. Bilateral Leg Swelling, Renal, and Cardiac History The patient reports persistent swelling in both legs. She has a history of recurrent kidney stones and underwent multiple procedures in childhood due to obstructed kidney tubes. She is currently under surveillance for kidney function and has an upcoming nephrology appointment at the end of the month. She reports no known current kidney failure. Family history is notable for her mother having only one kidney and her youngest daughter having a cadaveric kidney. The patient reports seeing a rn new graduate for her valve prior to her reconstructive foot surgery but has not returned since. She denies signs of infection or cellulitis. Social History The patient is a current smoker and is actively attempting to quit. Review of Systems Constitutional: Positive for smoking and trying to quit smoking. Cardiovascular: Positive for holding on to water in legs. Negative for signs of infection or cellulitis. Genitourinary: Positive for kidney stones. Musculoskeletal: Positive for swollen legs. Cardiac: Warm well-perfused distal extremities, regular rate and rhythm Lungs: Nonlabored breathing on room air Abdomen: Soft and nontender Physical Exam Extremities: Bilateral lower extremity pitting edema, no active signs of cellulitis or infection No signs of infection or cellulitis in the lower extremities Physical examination of the left knee: Physical semination left knee demonstrates no obvious signs of open wounds, skin is intact, mild to moderate intra-articular effusion, significant medial and mild lateral joint line tenderness, significantly painful with attempted Sangeetha's, full range of motion from 0 to 130 degrees of flexion however significant pain on terminal flexion, no evidence of varus or valgus instability on stress examination Additional Vitals No qualifying data available. Assessment and Plan: Patient is a 69-year-old female presenting for evaluation and management of left knee pain and bilateral leg swelling. 1. Left knee pain - Left knee pain with mild osteoarthritis and possible meniscus injury; prior injection provided partial relief, with persistent medial knee pain. The risks and benefits of a left knee injection were discussed with the patient. The risk and benefits discussed include but are not limited to: Bleeding, infection, damage to nerves arteries and veins, the risk of subcutaneous fatty atrophy or skin depigmentation, the risk of a steroid flare as well as failure to relieve symptoms. After these risk and benefits were discussed, the patient was amenable to proceeding with a left knee injection. After obtaining consent, 3 mL of 2% lidocaine without epinephrine, 3 mL of .5% bupivacaine without epinephrine and 40 mg of Kenalog were drawn into a 10 mL syringe. The solution was injected into the left knee using a superolateral approach under sterile technique. The patient tolerated the procedure well without any complications. Patient was advised to ice the knee tonight to reduce swelling and inflammation. Patient was advised to avoid high-impact activities for 2 to 3 days following the injection. The patient was in good understanding of the plan. - Administered repeat intra-articular injection today as patient preferred non-surgical management at this time. - MRI may be considered to evaluate for meniscus pathology if patient considers surgical intervention in the future. 2. Osteoarthritis of left knee See plan under Left knee pain. Orders: XR Knee 3 Views Left Bilateral leg swelling - Bilateral leg swelling likely due to systemic etiology; concern for possible heart failure or renal dysfunction given history and exam. - No signs of infection or cellulitis on exam. - Recommended (more content not included)... [facility] Orthopedic Office/Clinic Not [facility] 03-15-2025 Orthopedic Office/Clinic Note Chief Complaint hx of bilat. knee pain, but Lt. knee has become very painful after being NWB on Rt foot following Rt ankle surgery 2024 History of Present Illness Robyn is a 69-year-old female who presents today for evaluation of her left knee. The patient has a history of a right ankle surgery with podiatry and presents in a walking boot to the right lower extremity. Patient states that since her surgery she has had increasing left knee pain. Denies any trauma inciting event. Patient denies any numbness or tingling. Pain localized to the left knee without radiation. Pain worse medially. Denies any history of left knee surgery, injections or physical therapy. Review of Systems Cardiac: Warm well-perfused distal extremities, regular rate and rhythm Lungs: Nonlabored breathing on room air Abdomen: Soft and nontender Physical Exam Vitals & Measurements HR: 73 (Peripheral) BP: 164/82 HT: 157 cm WT: 100.5 kg WT: 100.5 kg (Dosing) BMI: 40.77 Physical examination left lower extremity: Physical examination left lower extremity demonstrates no obvious signs of external trauma, skin is intact, mild effusion, the patient has range of motion from near full extension to approximately 120 degrees of flexion with mild pain on terminal flexion, no evidence of varus or valgus instability on stress examination, negative Piper, moderate medial joint line tenderness, negative lateral joint line tenderness, EHL, FHL, dorsiflexion plantarflexion intact, sural, saphenous, superficial peroneal, deep peroneal and tibial nerve distributions intact, warm well-perfused left lower extremity Additional Vitals No qualifying data available. Assessment and Plan: Osteoarthritis of left knee At this point time, the patient does demonstrate moderate left knee osteoarthritis, worse medially. Patient was advised of diagnosis and treatment options. Patient is status post a recent right ankle surgery at this point time we will defer steroid medication given her recent surgery. The patient was given tramadol for intermittent pain relief. We will also get her into physical therapy to work on a home exercise program. The patient was advised to follow-up with us in the future if her symptoms persist or fail to improve. At that point in time, could consider advanced imaging versus an injection at that point in time. The patient was a good understanding of this plan and amenable to proceeding as such. Medical Decision Making Chronic conditions NOT treated during this visit that affected my overall medical decision making: [] Treatment plans discussed but not opted for at this time: [] Prescribed medication that requires intensive monitoring for toxicity: [] I have reviewed the patient?s medication list for medication interactions/contra indications and/or for upcoming procedures: [yes or no] Time Spent with the Patient I have personally spent [] minutes on this date, directly related to today's patient visit, including pre and post visit work, for this date of service. Time listed does not include time spent on separately billable services. Problem List/Past Medical History Ongoing Allergic rhinitis Ankle pain, right Asthma Chronic obstructive pulmonary disease (COPD) Deafness in left ear Fibromyalgia History of endometrial cancer History of hepatitis C History of kidney stones HTN (hypertension) Hypothyroidism Osteoarthritis of multiple joints Right ankle instability Historical No qualifying data Procedure/Surgical History Cardiac catheterization Tonsillectomy Appendectomy BSO - Total abdominal hysterectomy and bilateral salpingo-oophorecto my Right fibula ORIF Colonoscopy Fusion of lumbar spine Gastrocnemius Release (Right) (02/10/2025) Examination Under Anesthesia (Right, Ankle) (02/10/2025) Repair Peroneal Tendon (Right) (02/10/2025) Debridement Lower Extremity (Right) (02/10/2025) Arthroscopy Ankle (Right) (02/10/2025) Removal Hardware Extremity Lower (Right, Ankle) (02/10/2025) Application Splint (Right, Ankle) (02/10/2025) Medications Albuterol (Eqv-Proventil HFA) 90 mcg/inh inhalation aerosol, 6 g, 0 Refill(s), INHALE 2 PUFFS EVERY 4 HOURS NEEDED FOR WHEEZING OR SHORTNESS OF BREATH diclofenac sodium 75 mg oral delayed release tablet, TAKE 1 TABLET BY MOUTH IN THE MORNING AND BEFORE BEDTIME FOR PAIN DME, See Instructions DME, See Instructions FLUoxetine 10 mg oral capsule, 90 EA, 0 Refill(s), TAKE 1 CAPSULE (10 MG TOTAL) BY MOUTH NIGHTLY. gabapentin 100 mg oral capsule, 180 EA, 0 Refill(s), TAKE 1 CAPSULE BY MOUTH EVERY MORNING AND AFTERNOON gabapentin 300 mg oral capsule, 90 EA, 0 Refill(s), TAKE 1 CAPSULE BY MOUTH EVERY DAY AT NIGHT levothyroxine 25 mcg (0.025 mg) oral tablet, 90 EA, 0 Refill(s), TAKE 1 TABLET (25 MCG TOTAL) BY MOUTH IN THE MORNING losartan 100 mg oral tablet, 90 EA, 0 Refill(s), TAKE 1 TABLET (100 MG TOTAL) BY MOUTH IN THE MORNING Metoprolol Tartrate 25 mg oral tablet, 180 EA, 0 Refil (more content not included)... [facility] XR Knee 3 Views Lefton 03-11 XR Knee 3 Views Left Exam: Three-view left knee films Interpretation: 3 view left knee films demonstrate moderate medial compartment left knee osteoarthritis, early osteophyte formation noted, there is approximately 50 to 75% joint space narrowing on that involved compartment, early patellofemoral osteoarthritis with osteophyte formation noted, patellofemoral joint appears well aligned without evidence of patellar tilt or translation, no evidence of obvious loose body, mild to moderate tricompartmental osteoarthritis Final Signed by: Imtiaz Garvin MD Signed (Electronic Signature): 03/11/2025 10:17 am Transcribed DT/TM: 03/11/2025 10:17 (If Report Is Signed, Electronically Signed in Other Vendor System) [facility] Podiatry Office/Clinic Noteo n 02-28-2025 Podiatry Office/Clinic Note The content of this note was generated by an artificial intelligence (AI) language dictation. The patient or guardian has given their consent for the use of AI technology during the visit to capture and process the conversation. The AI will assist in providing information and support throughout the discussion. The AI will not store personal or sensitive information beyond the scope of this session, and the purpose is solely to facilitate the conversation. Chief Complaint p/o rt ankle hardware removal/ arthroscopy with debridement 02/10/25 History of Present Illness Disclaimer: The content of this note was generated by an artificial intelligence (AI) language model version 25.03.0.0 The patient is a 69-year-old female with a history of right ankle hardware removal and arthroscopy with debridement on 02/10/25, presenting for follow-up. Post-operative right ankle hardware removal and arthroscopy with debridement The patient is 18 days post-operative from right ankle hardware removal and arthroscopy with debridement. She reports significant itching around the surgical site, which she has been managing with lotion application. The stitches are intact, and the scars appear well-healed. She reports no pain from before surgery. However, she describes a fuzzy sensation at the bottom of her foot and pain when bending her foot, which she attributes to swelling. The doctor explains that this discomfort is also due to the gastroc recession performed during surgery, which can cause a tight or rubbery feeling in the calf muscle. This sensation may persist for up to six months but typically improves over time. The patient is able to move her foot up and down and wiggle her toes, with gross sensation intact. She has palpable dorsalis pedis and tibial pulses, with some ecchymosis and non-pitting edema noted around the foot and ankle, which is normal for this stage of recovery. The swelling may last up to six months but should gradually improve, especially with elevation and the use of compression socks. The patient inquires about weight-bearing and is informed that she can start putting weight on the foot once the stitches are removed today. She has brought her boot, which is in good condition, and will begin physical therapy to aid in transitioning out of the boot and into a shoe. The patient expresses concern about the necessity of physical therapy and is reassured that she can attend a few sessions to ensure she is performing the exercises correctly and then continue on her own if preferred. She asks about the location for physical therapy and is informed that she can choose a convenient location, such as [place]. The patient previously attended physical therapy at the building where Dr. Valentin was located. A telephone appointment is scheduled for six to eight weeks to monitor her progress and avoid unnecessary trips. The patient is concerned about the healing of her foot and is reassured that her recovery is progressing as expected. She will be provided with an ankle brace to aid in transitioning out of the boot. The patient is advised to bring the ankle brace to her first physical therapy session to discuss the transition plan. She expresses eagerness to resume outdoor activities and is informed that a good goal is to be 90% out of the boot by the time of the telephone visit in six to eight weeks. The patient is advised not to drive until she is out of the boot, as reaction time can be decreased for up to nine weeks post-surgery. She is encouraged to test her ability to drive in a safe environment once she transitions to a shoe. The patient mentions her 85-pound puppy jumping on her, which may contribute to swelling. She is advised to be patient with her recovery and use pain as a guide while gradually increasing activity levels. A planned trip will serve as a good test for her strength and mobility, and she is advised to take the boot and possibly a cane or walker for support. Patient is a pleasant 69-year-old female who is 19 days status post Procedure #1: Stress exam under anesthesia right ankle Procedure #2: Right ankle arthroscopy with extensive debridement Procedure #3: Right open gastrocnemius recession Procedure #4: Removal hardware right ankle/lateral malleolus Procedure #5: Right peroneus longus tendon tenolysis Procedure #6: Right peroneus brevis tendon repair with tubularization and debridement Procedure #7: Application short leg posterior and sugar-tong splint right lower extremity Patient is progressing. Pain well controlled on oral analgesics. Denies calf pain. Denies nausea vomiting fever chills shortness of breath or chest pain. Patient has been compliant with nonweightbearing status to the operative lower extremity. Patient has kept dressing and splint clean dry and intact. Having some itching but otherwise doing well. Overall doing well with no other complaints today. Patient presents with today. Review of Systems Musculoskeletal: Positive (more content not included)... [facility] Podiatry Office/Clinic Noteo n 02-15-2025 Podiatry Office/Clinic Note Chief Complaint Post-Op Right ankle hardware removal/arthroscopy w/debridement Sx on 02/10/25 History of Present Illness Patient is a pleasant 69-year-old female who is 6 days status post Procedure #1: Stress exam under anesthesia right ankle Procedure #2: Right ankle arthroscopy with extensive debridement Procedure #3: Right open gastrocnemius recession Procedure #4: Removal hardware right ankle/lateral malleolus Procedure #5: Right peroneus longus tendon tenolysis Procedure #6: Right peroneus brevis tendon repair with tubularization and debridement Procedure #7: Application short leg posterior and sugar-tong splint right lower extremity Patient is progressing. Pain well controlled on oral analgesics. Denies calf pain. Denies nausea vomiting fever chills shortness of breath or chest pain. Patient has been compliant with nonweightbearing status to the operative lower extremity. Patient has kept dressing and splint clean dry and intact. Having some itching but otherwise doing well. Overall doing well with no other complaints today. Patient presents with today. Review of Systems Constitutional Head Nose Mouth Throat Cardio/Respiratory Hematologic Chills: No Headache: No Shortness of Breath: No History of DVT: No Fever: No Sore Throat: No Chest Pain: No History of Claudication: No Ear Pain: No Palpitation: No History of Aneurysm: No History of Gangrene: No Genitourinary Musculoskeletal Psychiatric Vascular Burning: No Muscle Weakness: Yes Anxiety: No Blood Disorder: No Pain: No Joint Pain: Yes Depression: No Numbness: No Gastrointestinal Rheumatologic Problems: No History of Rheumatic Arthritis: No Pain: No History of Gout: No History of Lupus: No Physical Exam Vitals & Measurements HR: 97 (Peripheral) BP: 187/92 Constitutional: Patient is conversant, well developed and in no acute distress. They are alert and oriented to person place and time. Denies nausea, vomiting, fever, chills, shortness of breath, and calf pain. Pain is well controlled with medication. Respiratory: normal respiratory effort Neck: supple and symmetric Vascular: Dorsalis pedis pulses 2/4 and Posterior tibial pulses 2/4 with digital hair growth present. CFT was less than 3 secondsto the distal toes bilateral. There is notevidence of ischemic skin changes. Skin temperature to the toes is warm to the distal digits bilateral. Edema is absentto the lower extremities. Negative edema noted to bilateral calves. Negative increase in warmth to bilateral calves. Neurologic: Sensation is intact to the plantar feet as tested with [employer] monofilament. Gross motor intact bilateral lower extremity Dermatologic: Incisions to the right lower extremity are well coapted. No gapping or dehiscence noted. There is no redness, no drainage, no signs of infection. No purulence, no crepitus, no malodor, and no fluctuance noted to the operative extremity. Musculoskeletal: There is no pain around the incision site. Compartments are soft compressible with no pain on proportion to the operative lower extremity. No pain noted to bilateral calves. Additional Vitals BP Position/Location: Sitting, Left arm Assessment/Plan 1. Status post hardware removal Attention was directed to the right lower extremity where copious amounts of web roll was applied. A fiberglass posterior and sugar-tong short leg splint was measured and cut to the for the extremity. Splint was soaked and reamed dry then allowed to form the posterior aspect of the lower extremity and wrapped with an STEVE bandage. Ankle was kept in 90?. Brisk capillary refill time to toes was noted. 2. History of ankle fracture 3. Smoking history Patient is a pleasant 69-year-old male who is 6 days status post above-mentioned procedures right lower extremity. Patient is progressing well with low concern today for postoperative infection or DVT on exam. Patient is to continue nonweightbearing to the right lower extremity in Splint. Encouraged patient to keep dressing clean dry and intact. Xeroform and dry sterile dressing reapplied today. Patient return to clinic in 10 to 14 days for removal of sutures, at this time patient will likely transition to weightbearing as tolerated in cam boot pending clinical progression. All questions concerns answered. Patient and are amenable to plan. *No radiographs at next visit. Instructed patient to bring in cam boot. Possible transition to cam boot next visit Medical Decision Making Chronic conditions NOT treated during this visit that affected my overall medical decision making: [] Treatment plans discussed but not opted for at this time: [] Prescribed medication that requires intensive monitoring for toxicity: [] I have reviewed the patient?s medication list for medication interactions/contra indications and/or for upcoming procedures: [yes Time Spent with the Patient I have personally spent [] minutes on this date, (more content not included)... Normal [facility] .eGFRon 02-11-2025 GFR/1.73 sq M.predicted MDRD (S/P/Bld) [Vol rate/Area] mL/min/{1.73_m2} Normal >=60 [facility] Comment on above: Result Comment: [facility] Laboratories have implemented the eGFR calculation approach that does not have a coefficient for race and that conforms to the NKF-ASN Task Force Recommendations. Stages of Chronic Kidney Disease GFR Stage 3a Mild to moderate loss of kidney function 59 to 45 Stage 3b Moderate to severe loss of kidney function 44 to 33 Stage 4 Severe loss of kidney function 29 to 15 Stage 5 Kidney failure Less than 15 GFR calculated using the CKD-Epi Creatinine Equation (2020): eGFR = 142 X min(SCr/?, 1)? X max(SCr /?, 1)-1.200 X 0.9938Age X 1.012 [if female] Abbreviations/Units: eGFR (estimated glomerular filtration rate) = mL/min/1.73 m2 SCr (standardized serum creatinine) = mg/dL ? = 0.7 (females) or 0.9 (males) ? = -0.241 (females) or -0.302 (males) min = indicates the minimum of SCr/? or 1 max = indicates the maximum of SCr/? or 1 Age = years Performed By: #### E GFR ####[address] [address] CBC w/ Diffon 02-11-2025 Erythrocyte distribution width (RBC) [Ratio] 13.1 % Normal 11.6-14.8 [facility] Comment on above: Performed By: #### C BC ####[address] [address] Hematocrit (Bld) [Volume fraction] 38.8 % Normal 36.0-46.0 [facility] Comment on above: Performed By: #### C BC ####[address] [address] Hemoglobin (Bld) [Mass/Vol] 13.2 g/dL Normal 12.0-16.0 [facility] Comment on above: Performed By: #### C BC ####[address] [address] MCH (RBC) [Entitic mass] 29.7 pg Normal 27.0-35.0 [facility] Comment on above: Performed By: #### C BC ####[address] [address] MCHC 34.0 % Normal 31.0-37.0 [facility] Comment on above: Performed By: #### C BC ####[address] [address] MCV (RBC) [Entitic vol] 87.5 fL Normal 80.0-100.0 [facility] Comment on above: Performed By: #### C BC ####[address] [address] Platelet 212 x10*3/mcL Normal 150-450 [facility] Comment on above: Performed By: #### C BC ####[address] [address] Platelet mean volume (Bld) [Entitic vol] 9.1 fL Normal 6.7-10.6 [facility] Comment on above: Performed By: #### C BC ####[address] [address] RBC 4.44 x10*6/mcL Normal 3.80-5.20 [facility] Comment on above: Performed By: #### C BC ####[address] [address] WBC 11.6 x10*3/mcL High 4.5-11.0 [facility] Comment on above: Performed By: #### C BC ####[address] [address] CMPon 02-11-2025 Albumin [Mass/Vol] 3.0 g/dL Low 3.2-4.9 [facility] Comment on above: Performed By: #### C OMP ####[address] [address] Albumin/Globulin [Mass ratio] 0.9 {ratio} Low 1.1-2.2 [facility] Comment on above: Performed By: #### C OMP ####[address] [address] Alk Phos 49 IU/L Normal 32-91 [facility] Comment on above: Performed By: #### C OMP ####[address] [address] ALT [Catalytic activity/Vol] 47 U/L Normal 14-54 [facility] Comment on above: Performed By: #### C OMP ####[address] [address] Anion gap [Moles/Vol] 8 mmol/L Normal 4-12 [facility] Comment on above: Performed By: #### C OMP ####[address] [address] AST [Catalytic activity/Vol] 44 U/L High 15-41 [facility] Comment on above: Performed By: #### C OMP ####[address] [address] Bili Total 0.8 mg/dL Normal 0.3-1.2 [facility] Comment on above: Performed By: #### C OMP ####[address] [address] Calcium [Mass/Vol] 8.9 mg/dL Normal 8.5-10.3 [facility] Comment on above: Performed By: #### C OMP ####[address] [address] Chloride [Moles/Vol] 103 mmol/L Normal 98-110 [facility] Comment on above: Performed By: #### C OMP ####[address] [place] [address] CO2 [Moles/Vol] 24 mmol/L Normal 22-32 [facility] Comment on above: Performed By: #### C OMP ####[address] [place] [address] Creatinine [Mass/Vol] 0.87 mg/dL Normal 0.44-1.03 [facility] Comment on above: Performed By: #### C OMP ####[address] [address] Glucose [Mass/Vol] 171 mg/dL High 70-99 [facility] Comment on above: Performed By: #### C OMP ####[address] [address] Potassium [Moles/Vol] 4.1 mmol/L Normal 3.4-4.8 [facility] Comment on above: Performed By: #### C OMP ####[address] [address] Protein [Mass/Vol] 6.4 g/dL Low 6.5-8.1 [facility] Comment on above: Performed By: #### C OMP ####[address] [place] [address] Sodium [Moles/Vol] 135 mmol/L Normal 133-142 [facility] Comment on above: Performed By: #### C OMP ####[address] [place] [address] Urea nitrogen [Mass/Vol] 30 mg/dL High 8-26 [facility] Comment on above: Performed By: #### C OMP ####[address] [address] Urea nitrogen/Creatinine [Mass ratio] 34.5 mg/mg High 10.0-20.0 [facility] Comment on above: Performed By: #### C OMP ####[address] [address] Diff Autoon 02-11-2025 Baso Absolute 0.0 x10*3/mcL Normal 0.0-0.2 [facility] Comment on above: Performed By: #### . Automated Diff ####[address] [address] Basophils/100 WBC (Bld) 0.2 % Normal 0.0-1.5 [facility] Comment on above: Performed By: #### . Automated Diff ####[address] [address] Eos Absolute 0.0 x10*3/mcL Normal 0.0-0.4 [facility] Comment on above: Performed By: #### . Automated Diff ####[address] [address] Eosinophils/100 WBC (Bld) 0.0 % Normal 0.0-5.4 [facility] Comment on above: Performed By: #### . Automated Diff ####[address] [address] Lymph Absolute 0.8 x10*3/mcL Low 1.0-4.8 [facility] Comment on above: Performed By: #### . Automated Diff ####[address] [address] Lymphocytes/100 WBC (Bld) 6.6 % Low 27.2-40.8 [facility] Comment on above: Performed By: #### . Automated Diff ####[address] [address] [place] Absolute 0.6 x10*3/mcL Normal 0.1-1.1 [facility] Comment on above: Performed By: #### . Automated Diff ####[address] [address] Monocytes/100 WBC (Bld) 4.8 % Normal 3.7-11.9 [facility] Comment on above: Performed By: #### . Automated Diff ####[address] [address] Neutro Absolute 10.3 x10*3/mcL High 1.8-7.7 [facility] Comment on above: Performed By: #### . Automated Diff ####[address] [address] Neutro Auto 88.4 % High 47.2-70.8 [facility] Comment on above: Performed By: #### . Automated Diff ####[address] [address] Inpatient Clinical Summaryon 02-11-2025 Inpatient Clinical Summary [facility] [address] [place] [phone] [id number] [phone] Clinical Summary Person Information Name: Robyn Thorpe Age: 69 Years : 1955 Sex: Female PCP: Jairo Higuera Marital Status: Phone: PCP: Race: White Ethnicity: Not or Language: Kyrgyz Visit Id: Visit Reason: Speciality: Acuity: Enc Type: Observation Med Service: Surgery Arrival: 02/10/2025 10:42:53 Discharge: Dispo Type: Address: [facility] [address] [place] [phone] Preferred Communication Mode: Verbal Preferred Language: Kyrgyz Discharge Diagnosis: 1:Painful orthopaedic hardware; 2:Ankle impingement syndrome, right; 3:Right ankle instability; 4:Contracture, right ankle; 5:Achilles tendon contracture, right; 6:Tear of peroneal tendon of right foot; 7:History of ankle fracture; Post-op pain Discharged To: Home with family care Mode of Discharge Transportation: Private vehicle Home Treatments: Devices/Equipment: Professional Skilled Services: Special Services and Community Resources: Discharge Orders: Activity Restrictions No strenuous exercise Diet Instruction Regular home diet Follow up 02/11/25 10:01:00 EDT, Provider: Brant Burden DPM, 1 to 2 weeks, per podiatry instruction Tube Feeding and Supplements Home Health Consult and Ambulatory Referrals Treatment and Wound Care Incentive Spirometry Nursing to Encourage 02/10/25 0:22:00 EDT, Daily Skin Care: Skin Integrity: Localized abnormality Skin Abnormalities: Lines/Devices/BM Information: Urinary Catheter Type: Urinary Catheter Size: Urinary Catheter Activity Date: Pre-insertion Indwelling Catheter Education: Ostomy Type: GI Tube Type: GI Tube Size: GI Tube Activity Date: Date of Last Bowel Movement: 02/10/2025 Functional Status: Sensory Deficits: Hearing deficit, left ear, Hearing deficit, right ear, Uncorrected visual impairment Valuables/Belonging s: Clothes History of Falls Within 6 Months: No High Fall Risk Interventions: Activities of Daily Living: ADLs: Independent Bathing ADL: Dressing ADL: Personal Care Provided: Bed Mobility Assistance: Independent Ambulation Assistance: One person assistance Musculoskeletal Abnormality: Gait: Staggering Assistive Devices: Gait belt, Walker Special Orthopedic Devices: Current Level of Assistance for Self Care/Mobility: No change from baseline Cognitive Status: Orientation Assessment: Oriented x 4 Level of Consciousness: Alert Characteristics of Speech: Clear Aspiration Risk: None Affect/Behavior: Appropriate, Calm, Cooperative Smoking Status 5-9 cigarettes (between 1/4 to 1/2 pack)/day in last 30 days Laboratory or Other Results This Visit (last charted value for your 02/10/2025 visit) Hematology 02/11/2025 5:14 AM WBC: 11.6 x10 RBC: 4.44 x10 Neutro Auto: 88.4 % -- Normal range between ( 47.2 and 70.8 ) Lymph Auto: 6.6 % -- Normal range between ( 27.2 and 40.8 ) [place] Auto: 4.8 % -- Normal range between ( 3.7 and 11.9 ) Eos Auto: 0.0 % -- Normal range between ( 0.0 and 5.4 ) Basophil Auto: 0.2 % -- Normal range between ( 0.0 and 1.5 ) Baso Absolute: 0.0 x10 MCV: 87.5 fL -- Normal range between ( 80.0 and 100.0 ) MCHC: 34.0 % -- Normal range between ( 31.0 and 37.0 ) Lymph Absolute: 0.8 x10 Hct: 38.8 % -- Normal range between ( 36.0 and 46.0 ) [place] Absolute: 0.6 x10 MCH: 29.7 pg -- Normal range between ( 27.0 and 35.0 ) Neutro Absolute: 10.3 x10 Hgb: 13.2 g/dL -- Normal range between ( 12.0 and 16.0 ) Mean Platelet Volume: 9.1 fL -- Normal range between ( 6.7 and 10.6 ) Platelet: 212 x10 Eos Absolute: 0.0 x10 RDW: 13.1 % -- Normal range between ( 11.6 and 14.8 ) Chemistry 02/11/2025 5:14 AM Creatinine Lvl: 0.87 mg/dL -- Normal range between ( 0.44 and 1.03 ) BUN: 30 mg/dL -- Normal range between ( 8 and 26 ) Glucose Lvl: 171 mg/dL -- Normal range between ( 70 and 99 ) Potassium Lvl: 4.1 mmol/L -- Normal range between ( 3.4 and 4.8 ) AST: 44 IU/L -- Normal range between ( 15 and 41 ) ALT: 47 IU/L -- Normal range between ( 14 and 54 ) Sodium Lvl: 135 mmol/L -- Normal range between ( 133 and 142 ) Calcium Lvl: 8.9 mg/dL -- Normal range between ( 8.5 and 10.3 ) Albumin Lvl: 3.0 g/dL -- Normal range between ( 3.2 and 4.9 ) Total Protein: 6.4 g/dL -- Normal range between ( 6.5 and 8.1 ) Magnesium Lvl: 1.9 mg/dL -- Normal range between ( 1.7 and 2.4 ) Bili Total: 0.8 mg/dL -- Normal range between ( 0.3 and 1.2 ) Alk Phos: 49 IU/L -- Normal range between ( 32 and 91 ) Chloride: 103 mmol/L -- Normal range between ( 98 and 110 ) CO2: 24 mmol/L -- Normal range between ( 22 and 32 ) Anion Gap: 8 -- Normal range between ( 4 and 12 ) Estimated GFR: >60 mL/min/1.73m? BUN Crea Ratio: 34.5 -- Normal range between (more content not included)... Normal [facility] Magnesiumon 02-11-2025 Magnesium [Mass/Vol] 1.9 mg/dL Normal 1.7-2.4 [facility] Comment on above: Performed By: #### M G ####[facility] [place] [address] Progress Note-Nurseon 2024 Progress Note-Nurse Physical therapy reported to this flex o writer operator the patient was not able to get up any steps during session. She has three steps to get into her house. Physical therapy recommended ARU or a safe wheelchair ramp at home. Patient does not have a ramp but insisted that she would go home. She stated that her and her young neighbor are going to help her get into the house by helping her scoot up the steps, or use a plywood board as a ramp. Explained to patient that those are not safe options and patient continued to insist she has many young, able-bodied men that live close and can help them out at home. Hospitalist and pegger dobby looms notified of physical therapy recommendations and patient's refusal. Offered to set patient up with home health so that physical therapy can come periodically to help her recover and she stated that her dogs don't like strangers and that she would be fine and does not want it. Electronically signed by Sandhya Bazzi 02/11/25 10:46 EDT Normal [facility] Provider Letteron 02-11-2025 Provider Letter CARLITOS Hankins [address] [place] [address], [place] [address] Re: Robyn Thorpe Date of Visit: 02/10/2025 Dear Jairo URBINA, [facility] [address] [place], [place], [phone] Date: 02/11/2025 12:55:10 Please see attached discharge summary regarding Robyn Thorpe who was seen on 02/10/2025 16:16:43. Please see attached note for further details and please call with any questions or concerns. Sincerely, VIKI Saunders Providers: The following document(s) were included in the letter: February 11, 2025 12:50:52 EDT - (02/11/2025) Discharge Summary [facility] XR OR Ankle Righton 02-12-20 25 XR OR Ankle Right This report was not created by a radiologist, physician, or advanced practice provider. The details of this surgical case can be found within the surgical operative note. The surgical Operative note is located within the patient's chart. Final Signed by: Serene Amador Signed (Electronic Signature): 02/11/2025 7:03 am Transcribed DT/TM: 02/11/2025 7:03 (If Report Is Signed, Electronically Signed in Other Vendor System) Normal [facility] Consultation Note - Generico n 02-10-2025 Consultation Note - Generic Chief Complaint RIGHT ANKLE PAIN & INSTABLITY SARAH BETH FOR: RIGHT LOWER EXTREMITY SURGERY Reason for Consultation: Medical Software Release Manager Provider: DILEEP Sage Date of Consult: 02/10/2025 Assessment/Plan Removal hardware from R ankle: home medications resumed as appropriate, daily labs to monitor blood count, electrolytes, etc. History of Present Illness In 2020 patient sustained a right lateral malleolus displaced fracture after ground-level fall. This was repaired via open reduction internal fixation at outside hospital. Patient has residual pain from her lateral plate and wishes to have it removed. She also has MRI findings of longitudinal split tear of the peroneus brevis muscle tendon. Review of Systems Constitutional: [No fevers, chills, sweats] Eye: [No recent visual problems] ENMT: [No ear pain, nasal congestion, sore throat] Respiratory: [No shortness of breath, cough] Cardiovascular: [No Chest pain, palpitations, syncope] Gastrointestinal: [No nausea, vomiting, diarrhea, constipation] Genitourinary: [No hematuria, burning, frequency] Objective Vitals & Measurements T: 36.8 ?C (Oral) TMIN: 36.3 ?C (Oral) TMAX: 36.8 ?C (Temporal Artery) HR: 87 (Monitored) RR: 20 BP: 147/77 SpO2: 92% HT: 157 cm HT: 157 cm WT: 100.5 kg WT: 100.5 kg (Dosing) BMI: 40.77 BMI: 40.77 Lungs: [+pt on 2L nc, but Clear to auscultation, non-labored respiration]. Heart: [Normal rate, regular rhythm, no murmur, gallop or edema]. Abdomen: [Soft, non-tender, non-distended, normal bowel sounds, no masses]. Mental Status:[Alert and oriented x3]. Additional Vitals No qualifying data available. Problem List/Past Medical History Ongoing Allergic rhinitis Ankle pain, right Asthma Chronic obstructive pulmonary disease (COPD) Deafness in left ear Fibromyalgia History of endometrial cancer History of hepatitis C History of kidney stones HTN (hypertension) Hypothyroidism Osteoarthritis of multiple joints Right ankle instability Historical No qualifying data Degree of Malnutrition: No qualifying data available. Procedure/Surgical History Cardiac catheterization Tonsillectomy Appendectomy BSO - Total abdominal hysterectomy and bilateral salpingo-oophorecto my Right fibula ORIF Colonoscopy Fusion of lumbar spine Gastrocnemius Release (Right) (02/10/2025) Examination Under Anesthesia (Right, Ankle) (02/10/2025) Repair Peroneal Tendon (Right) (02/10/2025) Debridement Lower Extremity (Right) (02/10/2025) Arthroscopy Ankle (Right) (02/10/2025) Removal Hardware Extremity Lower (Right, Ankle) (02/10/2025) Application Splint (Right, Ankle) (02/10/2025) Medications Inpatient acetaminophen, 650 mg, Oral, [id number] Times albuterol, 180 mcg= 2 puffs, Inhale, q4hr, PRN Dilaudid, 1 mg= 1 mL, IV Push, q4hr, PRN docusate sodium, 100 mg, Oral, BID, PRN FLUoxetine, 10 mg, Oral, HS (at bedtime) hydrALAZINE, 10 mg= 0.5 mL, IV Push, q4hr, PRN levothyroxine, 25 mcg, Oral, Daily Melatonin, 6 mg, Oral, HS (at bedtime), PRN MiraLax, 17 g= 1 EA, Oral, Daily, PRN oxyCODONE, 5 mg, Oral, q4hr, PRN spironolactone, 25 mg, Oral, Daily Trelegy Ellipta 100 mcg-62.5 mcg-25 mcg/inh inhalation powder, 1 inh, Inhale, qAM Tums, 500 mg, Oral, QID, PRN Home acetaminophen 650 mg oral tablet, extended release, 650 mg= 1 tabs, Oral, q8hr Albuterol (Eqv-Proventil HFA) 90 mcg/inh inhalation aerosol, 6 g, 0 Refill(s), INHALE 2 PUFFS EVERY 4 HOURS NEEDED FOR WHEEZING OR SHORTNESS OF BREATH diclofenac sodium 75 mg oral delayed release tablet, TAKE 1 TABLET BY MOUTH IN THE MORNING AND BEFORE BEDTIME FOR PAIN DME, See Instructions FLUoxetine 10 mg oral capsule, 90 EA, 0 Refill(s), TAKE 1 CAPSULE (10 MG TOTAL) BY MOUTH NIGHTLY. gabapentin 100 mg oral capsule, 180 EA, 0 Refill(s), TAKE 1 CAPSULE BY MOUTH EVERY MORNING AND AFTERNOON gabapentin 300 mg oral capsule, 90 EA, 0 Refill(s), TAKE 1 CAPSULE BY MOUTH EVERY DAY AT NIGHT levothyroxine 25 mcg (0.025 mg) oral tablet, 90 EA, 0 Refill(s), TAKE 1 TABLET (25 MCG TOTAL) BY MOUTH IN THE MORNING losartan 100 mg oral tablet, 90 EA, 0 Refill(s), TAKE 1 TABLET (100 MG TOTAL) BY MOUTH IN THE MORNING Lovenox 40 mg/0.4 mL injectable solution, 40 mg= 0.4 mL, Subcutaneous, Daily Metoprolol Tartrate 25 mg oral tablet, 180 EA, 0 Refill(s), TAKE 1 TABLET BY MOUTH IN THE MORNING AND BEFORE BEDTIME ondansetron 4 mg oral tablet, 4 mg= 1 tabs, Oral, q8hr, PRN oxyCODONE 5 mg oral tablet, 5 mg= 1 tabs, Oral, q6hr, PRN spironolactone 25 mg oral tablet, 25 mg= 1 tabs, Oral, Daily traMADol 50 mg oral tablet, 40 EA, 0 Refill(s), TAKE 1 TABLET BY MOUTH EVERY 6 HOURS NEEDED FOR PAIN traZODone 150 mg oral tablet, 90 EA, 0 Refill(s), TAKE 1 TABLET BY MOUTH EVERY DAY AT NIGHT Trelegy Ellipta 100 mcg-62.5 mcg-25 mcg/inh inhalation powder, 1 inh, Inhale, qAM Vitamin B Complex with C and Zinc oral tablet, 1 tabs, Oral, Daily Allergies Bee Stings (Swelling) Tape ( (more content not included)... [facility] Operative Reporton 5 Operative Report Indication for Surgery Right ankle impingement/painful hardware/peroneal tendon repair The patient is a 69year old female who is brought to the operating room for removal of right lateral ankle hardware, repair of longitudinal split tear of peroneus brevis tendon, gastrocnemius recession, ankle arthroscopy with debridement. We went over the risks, benefits, and alternatives of the surgery. Patient was agreeable to proceed. Consent was signed. Patient was given 2 g Ancef prior to starting. In 2020 patient sustained a right lateral malleolus displaced fracture after ground-level fall. This was repaired via open reduction internal fixation at outside hospital. Patient has residual pain from her lateral plate and wishes to have it removed under anesthesia in the operative theater. She also has MRI findings of longitudinal split tear of the peroneus brevis muscle tendon. She wishes to proceed with operative intervention as above. All risk, benefits, alternatives explained. Consent signed. Patient marked. DESCRIPTION OF PROCEDURE: The patient had a popliteal block performed in preop holding. Patient was brought to the operating room, placed on the operating table in a supine position and given a general anesthetic. An ipsilateral hip bump was placed. A thigh tourniquet was placed and set to 275 mmHg. We padded all the bony prominences and then made a blanket platform to support the operative leg. We removed the dressing and thoroughly scrubbed the operative leg, then dried and did a formal prep and drape in the usual sterile fashion. A time-out was then done. Preoperative Diagnosis ANKLE IMPINGEMENT SYNDROME, HX OF ANKLE FRACTURE, PAINFUL ORTHOPAEDIC HARDWARE, ANKLE INSTABILITY, PERONEAL TENDIONOSIS ALL RT SIDE Diagnoses This Visit Achilles tendon contracture, right (M67.01) Ankle impingement syndrome, right (M25.871) Contracture, right ankle (M24.571) History of ankle fracture (Z87.81) Painful orthopaedic hardware (T84.84XA) Post-op pain (G89.18) Right ankle instability (M25.371) Tear of peroneal tendon of right foot (S86.311A) Postoperative Diagnosis Same Operation Removal Hardware Extremity Lower, Right, Ankle Arthroscopy Ankle, with debridement, Right Gastrocnemius Release, Right Repair Peroneal Tendon, POSSIBLE TENODESIS, Right Examination Under Anesthesia, Right, Ankle Application Splint, Right, Ankle Debridement Lower Extremity, ANKLE PERONEAL TENDON, Right Procedure #1: Stress exam under anesthesia right ankle Procedure #2: Right ankle arthroscopy with extensive debridement Procedure #3: Right open gastrocnemius recession Procedure #4: Removal hardware right ankle/lateral malleolus Procedure #5: Right peroneus longus tendon tenolysis Procedure #6: Right peroneus brevis tendon repair with tubularization and debridement Procedure #7: Application short leg posterior and sugar-tong splint right lower extremity Surgeon(s) Brant Burden DPM (Surgeon - Primary) Websphere Portal Developer Jonathon Patterson (Customer Quality Engineer) Anesthesia General Rubi ISRAEL, Lenny Mendes (Resource Director) Malik Reed DO (Resource Director) Gregory SILVER-DATA MANAGEMENT SPECIALIST, Marianne Parks (Provider) Robinson SILVER-ART TRACERLucero (Provider) Sima CESARN-ART TRACER, Jen (Provider) Preoperative popliteal/saphenous block Estimated Blood Loss 10 mL Urine Output Please anesthesia record Findings Please see operative part below Specimen(s) None Complications None apparent Technique Procedure #1: Stress exam under anesthesia right ankle Attention was directed to the right ankle. Under live fluoroscopic imaging and using manual manipulation with my hands the right ankle was stressed in multiple planes. Talar tilt and anterior drawer were both performed. These were noted to be negative. Stress external rotation was performed which was noted to be negative. This testing was again performed after removal of the lateral ankle hardware noted to be negative. Procedure #2: Right ankle arthroscopy with extensive debridement The right lower extremity was placed with the knee flexed on top of a sterile Ortho triangle that was padded with towels. Attention was directed to the right ankle. Syringe with a 22-gauge needle was introduced into the medial ankle joint just medial to the tibialis anterior tendon. Ankle inflated with 20 mL of lactated Ringer's. I exsanguinated the leg and inflated tourniquet to 275 mmHg. Incision was made with a 15 blade at the level of the ankle joint just medial to the tibialis anterior tendon. After visualizing the superficial peroneal nerve under the skin, the lateral portal was established and incision was made just lateral to the peroneus tertius tendon at the level of the ankle joint. The anterior medial and anterior lateral portals were established carefully. Blunt dissection to the capsule. I protected the superficial peroneal nerve branches and the saphenous vein and nerve. After portals established cannula and obturator were int (more content not included)... Normal [facility] Provider Letteron 02-10-2025 Provider Letter CARLITOS Hankins [address], [place] [address] Re: Robyn Thorpe Date of Visit: 02/10/2025 Dear Jairo URBINA, [facility] [address] [place], [place], [id number] Date: 02/10/2025 15:36:28 Please see attached operative note regarding Robyn Thorpe who was seen on 01/26/2025 16:28:17. Please see attached note for further details and please call with any questions or concerns. Sincerely, VIKI Saunders Providers: The following document(s) were included in the letter: February 10, 2025 15:25:11 EDT - (02/10/2025) Op Note Normal [facility] .eGFRon 02-02-2025 GFR/1.73 sq M.predicted MDRD (S/P/Bld) [Vol rate/Area] mL/min/{1.73_m2} Normal >=60 [facility] Comment on above: Result Comment: [facility] Laboratories have implemented the eGFR calculation approach that does not have a coefficient for race and that conforms to the NKF-ASN Task Force Recommendations. Stages of Chronic Kidney Disease GFR Stage 3a Mild to moderate loss of kidney function 59 to 45 Stage 3b Moderate to severe loss of kidney function 44 to 33 Stage 4 Severe loss of kidney function 29 to 15 Stage 5 Kidney failure Less than 15 GFR calculated using the CKD-Epi Creatinine Equation (2020): eGFR = 142 X min(SCr/?, 1)? X max(SCr /?, 1)-1.200 X 0.9938Age X 1.012 [if female] Abbreviations/Units: eGFR (estimated glomerular filtration rate) = mL/min/1.73 m2 SCr (standardized serum creatinine) = mg/dL ? = 0.7 (females) or 0.9 (males) ? = -0.241 (females) or -0.302 (males) min = indicates the minimum of SCr/? or 1 max = indicates the maximum of SCr/? or 1 Age = years Performed By: #### E GFR ####[address] [address] Basic Metabolic Profileon Anion gap [Moles/Vol] 8 mmol/L Normal 4-12 [facility] Comment on above: Performed By: #### C [id number] ####[address] [address] Calcium [Mass/Vol] 8.9 mg/dL Normal 8.5-10.3 [facility] Comment on above: Performed By: #### C [id number] ####[address] [address] Chloride [Moles/Vol] 105 mmol/L Normal 98-110 [facility] Comment on above: Performed By: #### C [id number] ####[address] [address] CO2 [Moles/Vol] 23 mmol/L Normal 22-32 [facility] Comment on above: Performed By: #### C [id number] ####[address] [address] Creatinine [Mass/Vol] 0.89 mg/dL Normal 0.44-1.03 [facility] Comment on above: Performed By: #### C [id number] ####[address] [address] Glucose [Mass/Vol] 102 mg/dL High 70-99 [facility] Comment on above: Performed By: #### C [id number] ####[address] [address] Potassium [Moles/Vol] 3.6 mmol/L Normal 3.4-4.8 [facility] Comment on above: Performed By: #### C [id number] ####[address] [address] Sodium [Moles/Vol] 136 mmol/L Normal 133-142 [facility] Comment on above: Performed By: #### C [id number] ####[address] [address] Urea nitrogen [Mass/Vol] 21 mg/dL Normal 8-26 [facility] Comment on above: Performed By: #### C [id number] ####[address] [address] Urea nitrogen/Creatinine [Mass ratio] 23.6 mg/mg High 10.0-20.0 [facility] Comment on above: Performed By: #### C [id number] ####[address] [address] CBC w/ Diffon 02-02-2025 Erythrocyte distribution width (RBC) [Ratio] 13.1 % Normal 11.6-14.8 [facility] Comment on above: Performed By: #### C BC ####[address] [address] Hematocrit (Bld) [Volume fraction] 41.0 % Normal 36.0-46.0 [facility] Comment on above: Performed By: #### C BC ####[address] [address] Hemoglobin (Bld) [Mass/Vol] 14.3 g/dL Normal 12.0-16.0 [facility] Comment on above: Performed By: #### C BC ####[address] [address] MCH (RBC) [Entitic mass] 30.4 pg Normal 27.0-35.0 [facility] Comment on above: Performed By: #### C BC ####[address] [address] MCHC 34.8 % Normal 31.0-37.0 [facility] Comment on above: Performed By: #### C BC ####[address] [address] MCV (RBC) [Entitic vol] 87.4 fL Normal 80.0-100.0 [facility] Comment on above: Performed By: #### C BC ####[place] [id number] Platelet 210 x10*3/mcL Normal 150-450 [facility] Comment on above: Performed By: #### C BC ####[place] [id number] Platelet mean volume (Bld) [Entitic vol] 8.9 fL Normal 6.7-10.6 [facility] Comment on above: Performed By: #### C BC ####[place] [address] RBC 4.69 x10*6/mcL Normal 3.80-5.20 [facility] Comment on above: Performed By: #### C BC ####[place] [address] WBC 5.5 x10*3/mcL Normal 4.5-11.0 [facility] Comment on above: Performed By: #### C BC ####[place] [id number] Diff Autoon 02-02-2025 Baso Absolute 0.0 x10*3/mcL Normal 0.0-0.2 [facility] Comment on above: Performed By: #### . Automated Diff ####[place] [id number] Basophils/100 WBC (Bld) 0.8 % Normal 0.0-1.5 [facility] Comment on above: Performed By: #### . Automated Diff ####[place] [id number] Eos Absolute 0.2 x10*3/mcL Normal 0.0-0.4 [facility] Comment on above: Performed By: #### . Automated Diff ####[address] [address] Eosinophils/100 WBC (Bld) 3.5 % Normal 0.0-5.4 [facility] Comment on above: Performed By: #### . Automated Diff ####[address] [address] Lymph Absolute 1.4 x10*3/mcL Normal 1.0-4.8 [facility] Comment on above: Performed By: #### . Automated Diff ####[address] [address] Lymphocytes/100 WBC (Bld) 25.8 % Low 27.2-40.8 [facility] Comment on above: Performed By: #### . Automated Diff ####[address] [address] [place] Absolute 0.6 x10*3/mcL Normal 0.1-1.1 [facility] Comment on above: Performed By: #### . Automated Diff ####[address] [address] Monocytes/100 WBC (Bld) 10.7 % Normal 3.7-11.9 [facility] Comment on above: Performed By: #### . Automated Diff ####[address] [address] Neutro Absolute 3.3 x10*3/mcL Normal 1.8-7.7 [facility] Comment on above: Performed By: #### . Automated Diff ####[address] [address] Neutro Auto 59.2 % Normal 47.2-70.8 [facility] Comment on above: Performed By: #### . Automated Diff ####[address] [address] NM helen perf SPECT rest stron 01-24-2025 NM helen perf SPECT rest str [facility] [address] [address] Nuclear Medicine Report Signed Patient: Robyn Thorpe MR#: [id number] : 1955 Acct:[id number] Age/Sex: 69 / F ADM Date: 01/21/25 Loc: EL Room: Type: [facility] Attending Dr: Hay Rea MD Copies to: MD Chantale Matt MD Ordering Provider: Hay Rea MD Date of Service: 01/21/25 NM/NM helen perf SPECT rest str: Chest Pain, Abnormal ECG NUCLEAR MYOCARDIAL PERFUSION DATE OF PROCEDURE: 01/24/2025 PROCEDURE: The patient received a stress dose of Lexiscan and was then injected with 29.4 millicuries of Technetium 99M Sestamibi. For rest images the patient was injected with 29.5 millicuries of Technetium 99M Sestamibi. FINDINGS: The raw cine images were reviewed. The post stress and rest perfusion images were reviewed as well as the computer quantification.? There was uniform uptake of the radiotracer with no perfusion defects identified.? On the gated portion of the study, there was uniform thickening with an overall ejection fraction calculated at 64%.? TID score was within normal limits. CONCLUSION: 1. Gated spect Sestamibi study is within normal limits. 2. Left ventricular function was preserved. Impression dictated by: Chantale Cardona M.D.01/24/2025 3:34 PM Dictation Location: [place] [address] Transcribed By: NADIA 01/24/25 1534 Dictated By: Chantale Cardona MD 01/24/25 1533 Signed By: 01/24/25 1534 Normal [facility] No Panel InformationOrdered By: Hay Rea on 01-21-2025 [facility] [address] [address] Cardiac Stress Test Signed Patient: Robyn Thorpe MR#: [id number] : 1955 Date of Service:0 01/21/25 Age/Sex: 69 / F ADM Date: 5 Loc: EL Room: Type: REG CLI Attending Dr: Hay Rea MD Copies to: MD Jairo Matt~ ORDERING PHYSICIAN: Dr. Rea INDICATION FOR STUDY/DIAGNOSIS: Chest pain PROCEDURE: After informed consent was obtained, the patient received a stress dose of Lexiscan while undergoing continuous 12 lead ECG monitoring. The patient's physical exam prior to administration of Lexiscan was normal. No changes occurred following the administration of Lexiscan. The baseline heart rate was 65 bpm and katie to a maximum of 85 bpm. The baseline blood pressure was 185/89 and katie to a maximum of 194/90. The patient had no chest pain following the administration of Lexiscan.? The baseline ECG revealed sinus rhythm, RBBB, no ST changes. Following administration of Lexiscan, there were no ST-T changes suggestive of ischemia. CONCLUSION: 1. Non-diagnostic Lexiscan ECG study. 2. Nuclear myocardial perfusion report to follow under a separate cover. Transcribed By: marlon 01/21/25 1026 Dictated By: Hay Rea MD 01/21/25 1026 Signed By: 01/21/[address] [facility] Work Phone: XR Ankle 2 Views Righton XR Ankle 2 Views Right 2 weightbearing views right ankle demonstrate: Right distal fibula with noted hardware from prior fibula fracture with no failure or hardware loosening of hardware or backing out of the hardware noted. Osseous trabeculation noted across the previous lateral malleolus fracture. Ankle mortise is otherwise well aligned and maintained. No increase in medial clear space. No increase in tib-fib clear space noted. 2 mm radiolucency noted at the lateral talar shoulder. No other foreign bodies noted. No acute fracture dislocations noted. No increase in soft tissue volume, density, or edema noted. Final Signed by: Brant Burden DPM Signed (Electronic Signature): 12/24/2024 3:45 pm Transcribed DT/TM: 12/24/2024 3:45 (If Report Is Signed, Electronically Signed in Other Vendor System) Normal [facility] XR Calcaneous Righton 2024 XR Calcaneous Right Lateral and calcaneal axial views demonstrate: Partial visualization of the hardware at the fibula better visualized on dedicated ankle views noted with no failure of hardware or loosening on these views. No varum or valgum of the calcaneus noted. No acute fracture dislocations noted. No other foreign bodies noted. No subchondral sclerosis joint space narrowing or cystic changes of the subtalar joint noted. No increase in soft tissue volume, density, or edema noted. No soft tissue calcifications noted. Final Signed by: Brant Burden DPM Signed (Electronic Signature): 12/24/2024 3:43 pm Transcribed DT/TM: 12/24/2024 3:43 (If Report Is Signed, Electronically Signed in Other Vendor System) Normal [facility] XR Foot 2 Views Righton XR Foot 2 Views Right 2 views right foot AP and oblique Medial demonstrate: Hardware at the lateral malleolus noted with better visualization on dedicated ankle views. No failure of the hardware backing out or lucency noted on these views. Contracture lesser digits noted. No other foreign bodies noted. No increase in soft tissue volume, density, or edema noted. No acute fracture dislocations noted. No soft tissue calcifications noted. Final Signed by: Brant Burden DPM Signed (Electronic Signature): 12/24/2024 3:46 pm Transcribed DT/TM: 12/24/2024 3:46 (If Report Is Signed, Electronically Signed in Other Vendor System) Normal [facility] FPG ECG *CARDIOLOGY ONLY*on 12-15-2024 FPG ECG *CARDIOLOGY ONLY* [facility] [place] [address] [place] [address] Electrocardiograph Report Signed Patient: Robyn Thorpe MR#: [id number] : 1955 Acct:[id number] Age/Sex: 69 / F ADM Date: 12/15/24 Loc: EKGCARDIO Room: Type: [facility] Attending Dr: Hay Rea MD Ordering Provider: Hay Rea MD Date of Service: 12/15/24 ECG/FPG ECG *CARDIOLOGY ONLY*: I10 - Essential (primary) hypertension Copies to: Test Reason : Blood Pressure : */* mmHG Vent. Rate : 68 BPM Atrial Rate : 68 BPM P-R Int : 136 ms QRS Dur : 128 ms QT Int : 466 ms P-R-T Axes : 77 -11 30 degrees QTcB Int : 495 ms Sinus rhythm with premature supraventricular complexes Right bundle branch block Abnormal ECG No previous ECGs available Confirmed by Hay Rea ([id number]) on 12/17/2024 8:54:47 AM Referred By: Electronically Signed By: Hay Rea Transcribed By: MUS Signed By Hay Rea MD 12/17/24 0854 Normal [facility] Amphetamine Screen Ql (U)Ord ered By: flo Hagan on 07-21-2024 Amphetamines Ql (U) Negative Negative [facility] Barbiturates [Presence] in U rine by Screen methodOrdered By: Wanda Hagan on 07-21-2024 Barbiturates Screen Ql (U) Negative Negative [facility] Benzodiazepines Screen Ql (U )Ordered By: Wanda Hagan on 07-21-2024 Benzodiazepines Ql (U) Negative Negative [facility] Benzoylecgonine [Presence] i n Urine by Screen methodOrdered By: flo Hagan on 07-21-2024 Benzoylecgonine Screen Ql (U) Negative Negative [facility] Cannabinoids [Presence] in U rine by Screen methodOrdered By: Imflo Hagan on 07-21-2024 Cannabinoids Screen Ql (U) Positive High Negative [facility] Comment on above: These are unconfirme d results and should not be used for legal purposes. Drug Cut-Off Concentration: AMPH 1000 ng/mL JAMES 200 ng/mL TERESSA 200 ng/mL COCM 300 ng/mL OP 300 ng/mL PCP 25 ng/mL THC 20 ng/mL Drug Screen,Urineon 07-21-20 24 Amphetamine Screen,Urine Negative Normal Negative [facility] Comment on above: Performed By: #### U RDS #### [address] Barbiturate Screen,Urine Negative Normal Negative [facility] Comment on above: Performed By: #### U RDS #### [place] [id number] [place] Benzodiazepines Screen,Urine Negative Normal Negative [facility] Comment on above: Performed By: #### U RDS #### [address] Cannabinoid Screen,Urine Positive High Negative [facility] Comment on above: Result Comment: Thes e are unconfirmed results and should not be used for legal purposes. Drug Cut-Off Concentration: AMPH 1000 ng/mL JAMES 200 ng/mL TERESSA 200 ng/mL COCM 300 ng/mL OP 300 ng/mL PCP 25 ng/mL THC 20 ng/mL PERFORMED BY: [place] [address] PATHOLOGIST INORGANIC CHEMISTRY TEACHER FREDERIC CHRISTINA M.D. Performed By: #### U RDS #### [address] Cocaine Screen,Urine Negative Normal Negative [facility] Comment on above: Performed By: #### U RDS #### [address] Opiate Screen,Urine Negative Normal Negative [facility] Comment on above: Performed By: #### U RDS #### [address] Phencyclidine Screen,Urine Negative Normal Negative [facility] Comment on above: Performed By: #### U RDS #### [address] Opiates [Presence] in Urine by Screen methodOrdered By: Wanda Hagan on 07-21-2024 Opiates Screen Ql (U) Negative Negative [facility] Pathology Request for Lab Co rpon 07-21-2024 Pathology Request for Lab Jesus Manuel Normal [facility] Comment on above: Order Comment: PATHO LOGY GI SPECIMEN Result Comment: See report. Scanned copy available in EMR. PERFORMED BY: [place] [address] PATHOLOGIST INORGANIC CHEMISTRY TEACHER FREDERIC CHRISTINA M.D. Performed By: #### P ATH TO [facility] #### [address] Phencyclidine Screen Ql (U)O rdered By: Wanda Hagan on 07-21-2024 Phencyclidine Ql (U) Negative Negative [facility] BUN & Creatinineon 4 Creatinine [Mass/Vol] 0.8 mg/dL 0.50 - 0.90 mg/dL [facility] [employer], [place] Filt Rate 84 - PINF [facility] Comment on above: These results are not [...] and review of laboratory results Abnormal [facility] Urea nitrogen [Mass/Vol] 24 mg/dL High 8 - 23 mg/dL [facility] 36on 06-14-2024 36 Pt informed, she told me she will be looking for new heart doctor as she is not happy with us. Normal [facility] HCV Ab IA Qlon 12-11-2023 Interpretation and review of laboratory results Abnormal [facility] [employer] [facility] ANTI HCV W/PCR REFLX Reactive Abnormal NRCT [facility] Comment on above: Result Comment: Supplemental testing for HCV RNA by PCR has been ordered per CDC recommendations. Hpgjmw-rh-yqglcc ratio is >=1.00. Performed By: #### T [facility], [address]-4 #### [facility] ([id number]) [address], [address] [place] [address] HCV RNA PAULY+probe Qnon 12-11 HCV RNA QUANT PCR [id number] IU/mL Abnormal Undetected [facility] Comment on above: Result Comment: NOTE Result in log IU/mL is 7.28. ADDITIONAL INFORMATION The quantification range of this assay is 15 to 100,000,000 IU/mL (1.18 log to 8.00 log IU/mL). Testing was performed using the diomedes HCV test ([employer] Test Performed by: [facility] [address] [place] [address] Rivet Hammer Machine Operator: Raj Bhatti M.D. Ph.D.; CLIA# [id number] Performed By: #### T HYR, [id number] #### [facility] ([id number]) [address], [address] [place] [address] Hepatitis C(HCV) Ab w/ Refle x to PCRon 12-11-2023 HCV Ab IA Ql Reactive Abnormal Non-Reactive^ Non-Reactive [facility] Comment on above: Supplemental testing for HCV RNA by PCR has been ordered per CDC recommendations. Jksoji-bm-sdrwzq ratio is >=1.00. THYROID PROFILEon 12-11-2023 Free T4 [Mass/Vol] 1.29 ng/dL Normal 0.61-1.60 [facility] Comment on above: Performed By: #### T HYR, 56293-1 #### [facility] ([id number]) [address] [place] [address], [facility] [address] [place] [address] TSH 0.45 uIU/mL Low 0.49-4.67 [facility] Comment on above: Performed By: #### T HYR, 82181-0 #### [facility] ([id number]) [address] [place] [address], [address] [address] Thyroid profile includes TSH FT4on 12-11-2023 Interpretation and review of laboratory results Abnormal [facility] TSH Qn 0.45 m[IU]/L Low [facility] Office Visiton 11-17-2023 Follow-up visit [id number] Robyn Thorpe 1955 F Date Provider Department Center 11/17/2023 271-PRANAV TRINIDAD CARD [facility] Family History Problem Relation Age of Onset Diabetes Mother Coronary artery disease Mother Hypertension Mother Coronary artery disease Father Hypertension Father Other Father Coronary artery disease Brother Family Status - Relation Status Age at Mother Father Brother Level of Service:84381 [place] OFFICE/OUTPATIENT ESTABLISHED LOW MDM 20 MIN [facility] Orders Onlyon 11-17-2023 Orders Only [id number] Robyn Thorpe Rick 1955 F Provider Department Center 11/17/[address] [facility] Family History Problem Relation Age of Onset Diabetes Mother Coronary artery disease Mother Hypertension Mother Coronary artery disease Father Hypertension Father Other Father Coronary artery disease Brother Family Status - Relation Status Age at Mother Father Brother [facility] 36on 07-03-2023 36 Patient stopped by the office today c/o cough with lisinopril. Can we switch her to losartan? Normal [facility] Orders Onlyon 06-25-2023 Orders Only [id number] Robyn Thorpe Rick 1955 F Provider Department Center 06/25/2023 VERONICA BELLO [facility] Family History Problem Relation Age of Onset Diabetes Mother Coronary artery disease Mother Hypertension Mother Coronary artery disease Father Hypertension Father Other Father Coronary artery disease Brother Family Status - Relation Status Age at Mother Father Brother [facility] Basic Metabolic Panelon 12-18 Anion gap [Moles/Vol] 8 mmol/L Low 9 - 17 mmol/L [employer] Calcium [Mass/Vol] 9.4 mg/dL 8.6 - 10. 4 mg/dL [facility] Chloride [Moles/Vol] 108 mmol/L High 98 - 10 7 mmol/L [employer] [facility] [employer] CO2 [Moles/Vol] 25 mmol/L 20 - 31 mmol/L [facility] [employer] Creatinine [Mass/Vol] 0.68 mg/dL 0.50 - 0.90 mg/dL [facility] [employer] GFR/1.73 sq M.predicted MDRD (S/P/Bld) [Vol rate/Area] - PINF [employer] Comment on above: These results are not [...] mg/dL High 70 - 99 mg/dL [facility] Interpretation and review of laboratory results Abnormal [facility] Potassium [Moles/Vol] 3.6 mmol/L Low 3.7 - 5.3 mmol/L [facility] Sodium [Moles/Vol] 141 mmol/L 135 - 144 mmol/L [facility] Urea nitrogen [Mass/Vol] 20 mg/dL 8 - 23 mg/dL [facility] Urea nitrogen/Creatinine (Bld) [Mass ratio] 29 High 9 - 20 [facility] CBC with Auto Differentialon 01-03-2023 Absolute Eos # 0.20 [facility] Absolute Immature Granulocyte 0.03 [facility] Absolute Lymph # 1.05 Low [facility] [facility] Absolute [place] # 0.78 [facility] Basophils (Bld) [#/Vol] 0.04 10*3/uL [facility] Basophils/100 WBC (Bld) 1 % 0 - 2 % [facility] Eosinophils/100 WBC (Bld) 3 % 1 - 4 % [facility] Hematocrit (Bld) [Volume fraction] 43.3 % 36.3 - 47.1 % [facility] Hemoglobin (Bld) [Mass/Vol] 14.3 g/dL 11.9 - 15.1 g/dL [facility] Immature granulocytes/100 WBC (Bld) 1 % High 0 [facility] Interpretation and review of laboratory results Abnormal [facility] Lymphocytes/100 WBC (Bld) 16 % Low 24 - 43 % [facility] MCH (RBC) [Entitic mass] 28.9 pg 25.2 - 33.5 pg [facility] MCHC (RBC) [Mass/Vol] 33.0 g/dL 28.4 - 34.8 g/dL [facility] MCV (RBC) [Entitic vol] 87.5 fL 82.6 - 102.9 fL [facility] Monocytes/100 WBC (Bld) 12 % 3 - 12 % [facility] [employer] NRBC Automated 0.0 0.0 per 100 WBC [facility] [employer] Platelet distribution width (Bld) [Ratio] 13.2 % 11.8 - 14.4 % [facility] Platelet mean volume (Bld) [Entitic vol] 10.9 fL 8.1 - 13.5 fL [facility] Platelets (Bld) [#/Vol] 227 10*3/uL [facility] RBC (Bld) [#/Vol] 4.95 10*6/uL 3.95 - 5.1 1 m/uL [facility] [employer] Segmented neutrophils/100 WBC (Bld) 67 % High 36 - 65 % [facility] [employer] Segs Absolute 4.37 [facility] [employer] WBC (Bld) [#/Vol] 6.5 10*3/uL [facility] [employer] [facility] [employer] EKG 12 LeadOrdered By: Enrique Quezada on 01-03-2023 Atrial Rate 64 BPM [facility] [employer] Work Phone: P [place] 75 degrees [facility] [employer] Work Phone: P-R Interval 146 ms [employer] [facility] [employer] Work Phone: Q-T Interval 480 ms [employer] [facility] [employer] Work Phone: QRS Duration 130 ms Number 100 [employer] Work Phone: QTc Calculation (Bazett) 495 ms [employer] [facility] [employer] Work Phone: R [place] 3 degrees [employer] [facility] [employer] Work Phone: T [place] 31 degrees [employer] [facility] [employer] Work Phone: Ventricular Rate 64 BPM [facility] [employer] Work Phone: [facility] [employer] Work Phone: EKG 12 Leadon 01-03-2023 Normal sinus rhythm Right bundle branch block Abnormal ECG No previous ECGs available Confirmed by YANELIS QUEZADA ([id number]) on 01/03/2023 11:52:02 PM [facility] RADIOLOGY Yanelis Quezada MD - 01/03/2023 Normal sinus rhythm Right bundle branch block Abnormal ECG No previous ECGs available Confirmed by YANELIS QUEZADA ([id number]) on 01/03/2023 11:52:02 PM [employer] Work Phone: BUN & Creatinineon 3 Creatinine [Mass/Vol] 0.78 mg/dL 0.50 - 0.90 mg/dL [employer] GFR/1.73 sq M.predicted MDRD (S/P/Bld) [Vol rate/Area] - PINF [employer] Comment on above: These results are not [...] [Mass/Vol] 22 mg/dL 8 - 23 mg/dL [employer] [facility] [employer] CT UROGRAMon 12-26-2022 1. Bilateral nonobstructing nephroliths larger on the right side of 6.5 mm. No ureteric obstruction. 2. Mild hepatic steatosis. Granulomas in liver and spleen. 3. Atherosclerotic disease. 4. Postsurgical changes lower lumbar spine. Other findings as above. [facility] EXAMINATION: CT UROGRAM 12/26/2022 1:23 [...] free pelvic fluid, pelvic or inguinal adenopathy. Peritoneum/Retroper itoneum: No aortic aneurysm. Scattered calcified plaque in the abdominal aorta proximal iliac arteries. No retroperitoneal or mesenteric adenopathy. Bones/Soft Tissues: Postsurgical changes lower lumbar spine with intact indwelling hardware. Multilevel degenerative changes are present, predominantly moderate. No acute osseous or subcutaneous soft tissue abnormality. [facility] [employer] [employer] Katelyn Aceves MD - 12/26/2022 EXAMINATION: [...] free pelvic fluid, pelvic or inguinal adenopathy. Peritoneum/Retroper itoneum: No aortic aneurysm. Scattered calcified plaque in [...] lower lumbar spine. Other findings as above. [facility] Work Phone: Radiology Study observation (narrative) [facility] Work Phone: CT UROGRAMOrdered By: Katelyn wilkes on 12-26-2022 [facility] Work Phone: Urinalysis with Microscopico n 12-12-2022 Bacteria, UA 2+ Abnormal None [facility] [employer] Bilirubin Urine Negative NEGATIVE [facility] [employer] Color, UA Yellow Yellow [facility] [employer] Epithelial Cells UA 2 TO 5 [facility] [employer] Glucose Auto test strip (U) [Mass/Vol] Negative NEGATIVE [facility] [employer] Interpretation and review of laboratory results Abnormal [facility] Ketones (U) [Mass/Vol] TRACE Abnormal NEGATIVE [facility] Leukocyte esterase Auto test strip Ql (U) Negative NEGATIVE [facility] [employer] Mucus, UA 1+ Abnormal None [facility] Nitrite Auto test strip Ql (U) Negative NEGATIVE [facility] [employer] Protein (U) [Mass/Vol] 6.0 mg/dL 5.0 - 9.0 [facility] [employer] Protein (U) [Mass/Vol] 1+ Abnormal NEGATIVE [facility] [employer] RBC clumps Auto (Urine sed) [#/Area] 5 TO 10 [facility] Specific [place], UA 1.025 High 1.010 - 1.020 B ON [facility] Turbidity UA Clear Clear [facility] Urine Hgb TRACE Abnormal NEGATIVE [facility] [employer] Urobilinogen, Urine Normal Normal [facility] WBC, UA 0 TO 2 [facility] [employer] XR RIBS LT PA Sophia 3 XR RIBS LT PA CH EXAM: XR RIBS LT PA CH HISTORY: Rib pain COMPARISON: 05/28/2022 TECHNIQUE: Four views of the left ribs. FINDINGS: No rib fracture indentified. The lungs are clear. IMPRESSION: 1. No acute rib fracture identified. Electronically authenticated by: JANEEN POOLE Date: 2022-12-03 10:28 Normal [facility] MRI BRAIN WO W CONon 023 [...] YANELIS ENGEL Date: 2022-10-22 13:55 Normal [facility] CREATININEon 10-21-2022 Creatinine [Mass/Vol] 0.94 mg/dL Normal 0.55-1.02 [facility] Comment on above: Performed By: #### C HUGH ####[facility] [address] [place], [place] [address]Ok. Tapan Gordon EGFR-AF MALDIVIAN >60 Normal >=60 [facility] Comment on above: Performed By: #### C HUGH ####[facility] [address] [place], [place] [address]Um. Tapan Gordon EGFR-NON AF MALDIVIAN =60 Normal >=60 [facility] Comment on above: Performed By: #### C HUGH ####[facility] [address] [place], [place] [address]Yy. Tapan Gordon MG MAMM SCREEN 3D NICKOLAS CADon 08-13-2022 MG MAMM SCREEN 3D NICKOLAS CAD Patient: ROBYN THORPE Exam Date: 08/13/2022 : 1955 Gender:F Ordering : JAIRO DALEY Admission #: [id number] Family : Order #: [id number] CLICK HERE TO VIEW EXAM RADIOLOGY REPORT [...] kidney cancer at age 65. LOCATION: [facility] BREAST COMPOSITION: Scattered areas fibroglandular density. [...] Hollingsworth MD on 08/14/2022 at 07:58 Normal [facility] XR DEXA BONE DENSITYon 08-13 XR [...] by: YANELIS ENGEL Date: 2022-08-13 16:09 Normal [facility] CT ABD/PELVIS WO CONon 08-07 CT ABD/PELVIS [...] by: YANELIS ENGEL Date: 2022-08-07 18:50 Normal [facility] ECHOCARDIO M/2D COMPLETEon 0 06-26-2022 ECHOCARDIO M/2D COMPLETE Patient: ROBYN THROPE Exam Date: 06/26/2022 : 1955 Gender:F Ordering : DR PRANAV TRINIDAD M.D. Admission #: [id number] Family : JAIRO DALEY Order #: [id number] CLICK HERE TO VIEW EXAM ECHOCARDIOGRAM REPORT [...] M.D. on 06/26/2022 at 18:22 Normal [facility] AMYLASEon 06-19-2022 Amylase [Catalytic activity/Vol] 48 U/L Normal 25-115 [facility] Comment on above: Performed By: #### C YASH COLLINS LIPA ####[facility] [address] [place] [address]Dr. Tapan Evan CBC AUTO DIFFon 06-19-2022 BASO # 0.0 103/ul Normal 0.0-0.1 [facility] Comment on above: Performed By: #### C BC ####[facility] [address] [place], [place] [address]Dr. Tapan Gordon Basophils/100 WBC (Bld) 0.5 % Normal 0.2-2.0 [facility] Comment on above: Performed By: #### C BC ####[facility] [address] [place], [place] [address]Dr. Tapan Gordon EO # 0.2 103/ul Normal 0.0-0.7 [facility] Comment on above: Performed By: #### C BC ####[facility] [address] [place], [place] [address]Dr. Tapan Gordon Eosinophils/100 WBC (Bld) 2.4 % Normal 0.9-7.0 [facility] Comment on above: Performed By: #### C BC ####[facility] [address] [place], [place] [address]Dr. Tapan Gordon Erythrocyte distribution width (RBC) [Ratio] 13.0 % Normal 11.0-15.0 [facility] Comment on above: Performed By: #### C BC ####[facility] [address] [place], [place] [address]Dr. Tapan Gordon Hematocrit (Bld) [Volume fraction] 43.6 % Normal 36.0-48.0 [facility] Comment on above: Performed By: #### C BC ####[facility] [address] [place], [place] [address]Dr. Tapan Gordon Hemoglobin (Bld) [Mass/Vol] 14.6 g/dL Normal 12.0-16.0 [facility] Comment on above: Performed By: #### C BC ####[facility] [address] [place] [id number]. Tapan Gordon IG # 0.02 10e3/ul Normal 0.00-0.03 [facility] Comment on above: Performed By: #### C BC ####[facility] [address] [place] [id number]. Tapan Gordon IG % 0.3 % Normal 0.0-0.5 [facility] Comment on above: Performed By: #### C BC ####[facility] [address] [place] [address]Dr. Tapan Gordon LYMPH # 1.5 103/ul Normal 1.2-3.8 [facility] Comment on above: Performed By: #### C BC ####[facility] [address] [place] [address]Dr. Malikapalma Gordon Lymphocytes/100 WBC (Bld) 23.4 % Normal 20.5-60.0 [facility] Comment on above: Performed By: #### C BC ####[facility] [address] [place] [id number]. Tapan Gordon MANUAL DIFF REQ NO Normal [facility] Comment on above: Performed By: #### C BC ####[facility] [address] [place] [id number]. Tapan Gordon MCH (RBC) [Entitic mass] 29.5 pg Normal 26.7-34.0 [facility] Comment on above: Performed By: #### C BC ####[facility] [address] [place], [place] [address]Dr. Tapan Gordon MCHC (RBC) [Mass/Vol] 33.5 g/dL Normal 29.9-35.2 [facility] Comment on above: Performed By: #### C BC ####[facility] [address] [place] [id number]. Tapan Gordon MCV (RBC) [Entitic vol] 88.1 fL Normal 81.0-99.0 [facility] Comment on above: Performed By: #### C BC ####[facility] [address] [place] [id number]. Tapan Gordon MONO # 0.6 103/ul Normal 0.3-0.8 [facility] Comment on above: Performed By: #### C BC ####[facility] [address] [place] [id number]. Tapan Gordon Monocytes/100 WBC (Bld) 9.8 % Normal 1.7-12.0 [facility] Comment on above: Performed By: #### C BC ####[facility] [address] [place] [id number]. Tapan Gordon NEUT # 4.0 103/ul Normal 1.4-6.5 [facility] Comment on above: Performed By: #### C BC ####[facility] [address] [place], [place] [address]Dr. Tapan Gordon Neutrophils/100 WBC (Bld) 63.6 % Normal 43.0-75.0 [facility] Comment on above: Performed By: #### C BC ####[facility] [address] [place], [place] [address]Dr. Tapan Gordon Platelet mean volume (Bld) [Entitic vol] 10.3 fL Normal 9.5-13.5 [facility] Comment on above: Performed By: #### C BC ####[facility] [address] [place], [place] [address]Dr. Tapan Gordon PLT 258 103/ul Normal 150-450 [facility] Comment on above: Performed By: #### C BC ####[facility] [address] [place], [place] [address]Dr. Tapan Gordon RBC 4.95 106/ul Normal 4.20-5.40 [facility] Comment on above: Performed By: #### C BC ####[facility] [address] [place], [place] [address]Dr. Tapan Gordon WBC 6.3 103/ul Normal 4.0-11.0 [facility] Comment on above: Performed By: #### C BC ####[facility] [address] [place], [place] [address] ABD/PELVIS WO CONon 06-19 [...] BRAULIO LASSITER Date: 2022-06-19 10:13 Normal [facility] ER URINE PROFILEon 2 Bilirubin Ql (U) Negative Normal NEGATIVE [facility] Comment on above: Performed By: #### U MICRO, ERUR #### [facility] [address] [place] [address] [address] Tapan Gordon Clarity (U) CLEAR Normal CLEAR [facility] Comment on above: Performed By: #### U MICRO, ERUR #### [facility] [address] [place] [address] [address] Tapan Gordon Color (U) LT. YELLOW Normal YELLOW [facility] Comment on above: Performed By: #### U MICRO, ERUR #### [facility] [address] [place] [address] [address] Tapan FORMAN A micrscopic examination will be performed if indicated. Normal [facility] Comment on above: Performed By: #### U MICRO, ERUR #### [facility] [address] [place] [address] [address] Tapan Gordon Glucose Ql (U) Negative Normal NEGATIVE [facility] Comment on above: Performed By: #### U MICRO, ERUR #### [facility] [address] [place] [address] [address] Tapan Gordon Hemoglobin Ql (U) LARGE Abnormal NEGATIVE [facility] Comment on above: Performed By: #### U MICRO, ERUR #### [facility] [address] [place] [address] [address] Tapan Gordon Ketones Ql (U) Negative Normal NEGATIVE [facility] Comment on above: Performed By: #### U MICRO, ERUR #### [facility] [address] [place] [address] [address] Tapan Gordon LEUKOCYTES Negative Normal NEGATIVE [facility] Comment on above: Performed By: #### U MICRO, ERUR #### [facility] [address] [place] [address] [address] Tapan Gordon Nitrite Ql (U) Negative Normal NEGATIVE [facility] Comment on above: Performed By: #### U MICRO, ERUR #### [facility] [address] [place] [address] [address] Tapan Gordon pH (U) 7.0 [pH] Normal 5-9 [facility] Comment on above: Performed By: #### U MICRO, ERUR #### [facility] [address] [place] [address] [address] Tapan Gordon SPEC GRAVITY 1.015 Normal 1.005-<=1.025 [facility] Comment on above: Performed By: #### U MICRO, ERUR #### [facility] [address] [place] [address] [address] Tapan Gordon UA PROTEIN TRACE Normal NEGATIVE/ TRACE [facility] Comment on above: Performed By: #### U MICRO, ERUR #### [facility] [address] [place] [address] [address] Tapan Gordon UR MICRO IND INDICATED Normal [facility] Comment on above: Performed By: #### U MICRO, ERUR #### [facility] [address] [place] [address] [address] Tapan Gordon Urobilinogen Qn (U) 2.0 {Aleida'U}/dL Abnormal 0.2 - 1. 0 [facility] Comment on above: Performed By: #### U MICRO, ERUR #### [facility] [address] [place] [address] [address] Tapan Gordon LIPASEon 06-19-2022 Lipase [Catalytic activity/Vol] 182.0 U/L Normal 73.0-393.0 [facility] Comment on above: Performed By: #### C KARINA YASH, LIPA ####[facility] [address] [place] [address]DrCedric Gordon OCC BLD IMMUNO SCREENon 05-22 OCCULT BLOOD Negative Normal NEGATIVE [facility] Comment on above: Performed By: #### O BSCRN ####[facility] [address] [place] [address]DrCedric Gordon PROF 14(COMP METB)on 022 Albumin [Mass/Vol] 3.5 g/dL Normal 3.4-5.0 [facility] Comment on above: Performed By: #### C MP, YASH, LIPA ####[facility] [address] [place] [address]DrCedric Gordon Albumin/Globulin [Mass ratio] 1.0 {ratio} Normal [facility] Comment on above: Performed By: #### C MP, YASH, LIPA ####[facility] [address] [place] [address]DrCedric Gordon ALP [Catalytic activity/Vol] 76 U/L Normal 46-116 [facility] Comment on above: Performed By: #### C MP, YASH, LIPA ####[facility] [address] [place] [id number]. Tapan Gordon ALT [Catalytic activity/Vol] 64 U/L Critically high 14-59 [facility] Comment on above: Performed By: #### C MP, YASH, LIPA ####[facility] [address] [place] [id number]. Tapan Gordon Anion gap [Moles/Vol] 11.2 mmol/L Normal [facility] Comment on above: Performed By: #### C MP, YASH, LIPA ####[facility] [address] [place] [address]Dr. Tapan Gordon AST [Catalytic activity/Vol] 38 U/L Critically high 15-37 [facility] Comment on above: Performed By: #### C MP, YASH, LIPA ####[facility] [address] [place] [address]Dr. Tapan Gordon Bilirubin [Mass/Vol] 0.7 mg/dL Normal 0.2-1.0 [facility] Comment on above: Performed By: #### C MP, YASH, LIPA ####[facility] [address] [place] [address]Dr. Tapan Gordon Calcium [Mass/Vol] 8.7 mg/dL Normal 8.5-10.1 [facility] Comment on above: Performed By: #### C MP, YASH, LIPA ####[facility] [address] [place] [address]Dr. Tapan Gordon Chloride [Moles/Vol] 104 mmol/L Normal 98-107 [facility] Comment on above: Performed By: #### C MP, YASH, LIPA ####[facility] [address] [place] [address]Dr. Tapan Gordon CO2 [Moles/Vol] 29.6 mmol/L Normal 21.0-32.0 [facility] Comment on above: Performed By: #### C MP, YASH, LIPA ####[facility] [address] [place] [address]Dr. Tapan Gordon Creatinine [Mass/Vol] 0.85 mg/dL Normal 0.55-1.02 [facility] Comment on above: Performed By: #### C MP, YASH, LIPA ####[facility] [address] [place] [address]Dr. Tapan Gordon EGFR-AF MALDIVIAN >60 Normal >=60 [facility] Comment on above: Performed By: #### C MP, YASH, LIPA ####[facility] [address] [place] [address]Dr. Tapan Gordon EGFR-NON AF MALDIVIAN >60 Normal >=60 [facility] Comment on above: Performed By: #### C MP, YASH, LIPA ####[facility] [address] [place] [address]Dr. Tapan Gordon Globulin (S) [Mass/Vol] 3.6 g/dL Normal [facility] Comment on above: Performed By: #### C MP, YASH, LIPA ####[facility] [address] [place], [place] [address]Dr. Tapan Gordon Glucose [Mass/Vol] 125 mg/dL Critically high 74-106 [facility] Comment on above: Performed By: #### C MP, YASH, LIPA ####[facility] [address] [place], [place] [address]Dr. Tapan Gordon Potassium [Moles/Vol] 3.8 mmol/L Normal 3.5-5.1 [facility] Comment on above: Performed By: #### C MP, YASH, LIPA ####[facility] [address] [place], [place] [address]Dr. Tapan Gordon Protein [Mass/Vol] 7.1 g/dL Normal 6.4-8.2 [facility] Comment on above: Performed By: #### C MP, YASH, LIPA ####[facility] [address] [place], [place] [address]Dr. Tapan Gordon Sodium [Moles/Vol] 141 mmol/L Normal 136-145 [facility] Comment on above: Performed By: #### C MP, YASH, LIPA ####[facility] [address] [place] [id number]. Tapan Gordon Urea nitrogen [Mass/Vol] 22.0 mg/dL Critically high 7.0-18.0 [facility] Comment on above: Performed By: #### C YASH COLLINS LIPA ####[facility] [address] [place], [place] [address]Dr. Tapan Gordon Urea nitrogen/Creatinine [Mass ratio] 25.9 mg/mg Normal [facility] Comment on above: Performed By: #### C YASH COLLINS LIPA ####[facility] [address] [place] [id number]. Tapan Gordon URINE MICROSCOPIC ONLYon BACTERIA TRACE Abnormal NONE SEEN [facility] Comment on above: Performed By: #### U MICRO, ERUR #### [facility] [address] [place] [address] [address] Tapan Gordon Bacteria identified Cx Nom (U) NOT INDICATED Normal [facility] Comment on above: Performed By: #### U MICRO, ERUR #### [facility] [address] [place] [address] [address] Tapan Gordon CAST NONE SEEN Normal NONE SEEN [facility] Comment on above: Performed By: #### U MICRO, ERUR #### [facility] [address] [place] [address] [address] Tapan Gordon Crystals LM Nom (Urine sed) NONE SEEN Normal NONE SEEN [facility] Comment on above: Performed By: #### U MICRO, ERUR #### [facility] [address] [place] [address] [address] Tapan Gordon Epithelial cells LM Ql (Urine sed) FEW Abnormal NONE SEEN /RARE [facility] Comment on above: Performed By: #### U MICRO, ERUR #### [facility] [address] [place] [address] [address] Tapan Gordon MUCOUS NONE SEEN Normal NONE SEEN [facility] Comment on above: Performed By: #### U MICRO, ERUR #### [facility] [address] [place] [address] [address] Tapan Gordon RBC 20-50 Abnormal 0-2 [facility] Comment on above: Performed By: #### U MICRO, ERUR #### [facility] [address] [place], [place] [address] Dr. Tapan Gordon WBC NONE SEEN Normal NONE SEEN [facility] Comment on above: Performed By: #### U MICRO, ERUR #### [facility] [address] [place], [place] [address] LUNG CANCER SCREENINGon [...] by: XAVIER HOLLINGSWORTH Date: 2022-05-29 07:22 Normal [facility] Vital Signs Date Time Vital Sign Value Performing Clinician Facility 07-05-2025 09:33-0400 Body height 158.75 cm Jairo MCKEON Work Phone: [facility] 07-05-2025 09:33-0400 Body mass index (BMI) [Ratio] 39.2 kg/m2 Jairo MCKEON Work Phone: [facility] 07-05-2025 09:33-0400 Body weight 98.88 kg Jairo Daley DIRECTORY COMPILER-C Work Phone: [facility] 07-05-2025 09:33-0400 Diastolic blood pressure 60 mm[Hg] Jairo Daley DIRECTORY COMPILER-C Work Phone: [facility] 07-05-2025 09:33-0400 Heart rate 64 /min Jairo Daley DIRECTORY COMPILER-C Work Phone: [facility] 07-05-2025 09:33-0400 Respiratory rate 18 /min Jairo Daley DIRECTORY COMPILER-C Work Phone: [facility] 07-05-2025 09:33-0400 SaO2% (BldA) [Mass fraction] 94 % Jairo Daley DIRECTORY COMPILER-C Work Phone: [facility] 07-05-2025 09:33-0400 Systolic blood pressure 110 mm[Hg] Jairo Daley DIRECTORY COMPILER-C Work Phone: [facility] 01-21-2025 09:48-0400 Diastolic blood pressure 89 mm[Hg] Jairo Daley DIRECTORY COMPILER-C Work Phone: [facility] 01-21-2025 09:48-0400 Heart rate 63 /min Jairo Daley DIRECTORY COMPILER-C Work Phone: [facility] 01-21-2025 09:48-0400 Systolic blood pressure 185 mm[Hg] Jairo Daley DIRECTORY COMPILER-C Work Phone: [facility] 12-16-2024 13:34-0500 Body height 160 cm Jairo Daley ELECTRIC POWERLINE EXAMINER-DATA MANAGEMENT SPECIALIST Work Phone: [facility] 12-16-2024 13:34-0500 Body mass index (BMI) [Ratio] 37.69 kg/m2 Jairo Daley ELECTRIC POWERLINE EXAMINER-DATA MANAGEMENT SPECIALIST Work Phone: [facility] 12-16-2024 13:34-0500 Body temperature 97.59 [degF] Jairo Sweetillo ELECTRIC POWERLINE EXAMINER-DATA MANAGEMENT SPECIALIST Work Phone: [facility] 12-16-2024 13:34-0500 Body weight 96.48 kg Jairo Daley ELECTRIC POWERLINE EXAMINER-DATA MANAGEMENT SPECIALIST Work Phone: [facility] 12-16-2024 13:34-0500 Diastolic blood pressure 80 mm[Hg] Jairo Daley ELECTRIC POWERLINE EXAMINER-DATA MANAGEMENT SPECIALIST Work Phone: [facility] 12-16-2024 13:34-0500 Heart rate 80 /min Jairo Daley ELECTRIC POWERLINE EXAMINER-DATA MANAGEMENT SPECIALIST Work Phone: [facility] 12-16-2024 13:34-0500 Respiratory rate 20 /min Jairo Daley ELECTRIC POWERLINE EXAMINER-DATA MANAGEMENT SPECIALIST Work Phone: [facility] 12-16-2024 13:34-0500 SaO2% (BldA) [Mass fraction] 98 % Jairopaulina Sweetillo ELECTRIC POWERLINE EXAMINER-DATA MANAGEMENT SPECIALIST Work Phone: [facility] 12-16-2024 13:34-0500 Systolic blood pressure 138 mm[Hg] Jairo Daley ELECTRIC POWERLINE EXAMINER-DATA MANAGEMENT SPECIALIST Work Phone: [facility] 12-15-2024 15:21-0500 Body height 158.75 cm Jairo Sweetillo DIRECTORY COMPILER-C Work Phone: [facility] 12-15-2024 15:21-0500 Body mass index (BMI) [Ratio] 38.3 kg/m2 Jairopaulina Sweetillo DIRECTORY COMPILER-C Work Phone: [facility] 12-15-2024 15:21-0500 Body weight 96.61 kg Jairo Daley DIRECTORY COMPILER-C Work Phone: [facility] 12-15-2024 15:21-0500 Diastolic blood pressure 86 mm[Hg] Jairo Daley DIRECTORY COMPILER-C Work Phone: [facility] 12-15-2024 15:21-0500 Heart rate 68 /min Jairo Daley DIRECTORY COMPILER-C Work Phone: [facility] 12-15-2024 15:21-0500 Respiratory rate 18 /min Jairo Sweetillo DIRECTORY COMPILER-C Work Phone: [facility] 12-15-2024 15:21-0500 SaO2% (BldA) [Mass fraction] 92 % Jairo Daley DIRECTORY COMPILER-C Work Phone: [facility] 12-15-2024 15:21-0500 Systolic blood pressure 136 mm[Hg] Jairo Sweetillo DIRECTORY COMPILER-C Work Phone: [facility] 11-03-2024 12:58-0500 Body height 160 cm Jairo Daley ELECTRIC POWERLINE EXAMINER-DATA MANAGEMENT SPECIALIST Work Phone: [facility] [employer] [facility] 11-03-2024 12:58-0500 Body mass index (BMI) [Ratio] 36.28 kg/m2 Jairo Daley ELECTRIC POWERLINE EXAMINER-DATA MANAGEMENT SPECIALIST Work Phone: [facility] [employer] [facility] 11-03-2024 12:58-0500 Body temperature 97.59 [degF] Jairo Sweetillo ELECTRIC POWERLINE EXAMINER-DATA MANAGEMENT SPECIALIST Work Phone: [facility] [employer] [facility] 11-03-2024 12:58-0500 Body weight 92.9 kg Jairo Daley ELECTRIC POWERLINE EXAMINER-DATA MANAGEMENT SPECIALIST Work Phone: [facility] [employer] [facility] 11-03-2024 12:58-0500 Diastolic blood pressure 88 mm[Hg] Jairo Sweetillo ELECTRIC POWERLINE EXAMINER-DATA MANAGEMENT SPECIALIST Work Phone: [facility] [employer] [facility] 11-03-2024 12:58-0500 Heart rate 61 /min Jairo Daley ELECTRIC POWERLINE EXAMINER-DATA MANAGEMENT SPECIALIST Work Phone: [facility] [employer] [facility] 11-03-2024 12:58-0500 Respiratory rate 18 /min Jairo Daley ELECTRIC POWERLINE EXAMINER-DATA MANAGEMENT SPECIALIST Work Phone: [facility] [employer] [facility] 11-03-2024 12:58-0500 SaO2% (BldA) [Mass fraction] 94 % Jairo Daley APRN-DATA MANAGEMENT SPECIALIST Work Phone: [facility] [employer] [facility] 11-03-2024 12:58-0500 Systolic blood pressure 160 mm[Hg] Jairo Daley APRN-DATA MANAGEMENT SPECIALIST Work Phone: [facility] 09-13-2024 14:20-0500 Body height 160 cm Jairo Daley APRN-DATA MANAGEMENT SPECIALIST Work Phone: [facility] 09-13-2024 14:20-0500 Body mass index (BMI) [Ratio] 36 kg/m2 Jairo Daley APRN-DATA MANAGEMENT SPECIALIST Work Phone: [facility] 09-13-2024 14:20-0500 Body temperature 97.9 [degF] Jairo Daley APRN-DATA MANAGEMENT SPECIALIST Work Phone: [facility] 09-13-2024 14:20-0500 Body weight 92.17 kg Jairo Daley APRN-DATA MANAGEMENT SPECIALIST Work Phone: [facility] 09-13-2024 14:20-0500 Diastolic blood pressure 80 mm[Hg] Jairo Daley APRN-DATA MANAGEMENT SPECIALIST Work Phone: [facility] 09-13-2024 14:20-0500 Heart rate 67 /min Jairo Daley APRN-DATA MANAGEMENT SPECIALIST Work Phone: [facility] 09-13-2024 14:20-0500 Respiratory rate 18 /min Jairo Daley APRN-DATA MANAGEMENT SPECIALIST Work Phone: [facility] 09-13-2024 14:20-0500 SaO2% (BldA) [Mass fraction] 91 % Jairo Daley APRN-DATA MANAGEMENT SPECIALIST Work Phone: [facility] 09-13-2024 14:20-0500 Systolic blood pressure 140 mm[Hg] Jairo Daley APRN-DATA MANAGEMENT SPECIALIST Work Phone: [facility] 08-10-2024 08:15-0400 Body height 160 cm Jairo Daley ELECTRIC POWERLINE EXAMINER-DATA MANAGEMENT SPECIALIST Work Phone: [facility] 08-10-2024 08:15-0400 Body mass index (BMI) [Ratio] 36.6 kg/m2 Jairo Daley ELECTRIC POWERLINE EXAMINER-DATA MANAGEMENT SPECIALIST Work Phone: [facility] 08-10-2024 08:15-0400 Body temperature 97.5 [degF] Jairo Daley APRN-DATA MANAGEMENT SPECIALIST Work Phone: [facility] 08-10-2024 08:15-0400 Body weight 93.71 kg Jairo Daley ELECTRIC POWERLINE EXAMINER-DATA MANAGEMENT SPECIALIST Work Phone: [facility] 08-10-2024 08:15-0400 Diastolic blood pressure 86 mm[Hg] Jairo Daley ELECTRIC POWERLINE EXAMINER-DATA MANAGEMENT SPECIALIST Work Phone: [facility] 08-10-2024 08:15-0400 Heart rate 64 /min Jairo Daley APRN-DATA MANAGEMENT SPECIALIST Work Phone: [facility] 08-10-2024 08:15-0400 Respiratory rate 18 /min Jairo Daley ELECTRIC POWERLINE EXAMINER-DATA MANAGEMENT SPECIALIST Work Phone: [facility] 08-10-2024 08:15-0400 SaO2% (BldA) [Mass fraction] 92 % Jairo Daley ELECTRIC POWERLINE EXAMINER-DATA MANAGEMENT SPECIALIST Work Phone: [facility] 08-10-2024 08:15-0400 Systolic blood pressure 138 mm[Hg] Jairo Daley ELECTRIC POWERLINE EXAMINER-DATA MANAGEMENT SPECIALIST Work Phone: [facility] 07-21-2024 09:40-0400 Diastolic blood pressure 78 mm[Hg] DIRECTORY COMPILER-C Jairo Sweetillo Work Phone: [facility] 07-21-2024 09:40-0400 Heart rate 72 /min DIRECTORY COMPILER-C Jairo Daley Work Phone: [facility] 07-21-2024 09:40-0400 Respiratory rate 20 /min DIRECTORY COMPILER-C Jairo Daley Work Phone: [facility] 07-21-2024 09:40-0400 SaO2% (BldA) [Mass fraction] 98 % DIRECTORY COMPILER-C Jairo Daley Work Phone: [facility] 07-21-2024 09:40-0400 Systolic blood pressure 138 mm[Hg] DIRECTORY COMPILER-C Jairo Daley Work Phone: [facility] 07-21-2024 06:51-0400 Body height 157.48 cm DIRECTORY COMPILER-C Jairo Daley Work Phone: [facility] 07-21-2024 06:51-0400 Body weight 92.98 kg DIRECTORY COMPILER-C Jairo Daley Work Phone: [facility] 07-08-2024 12:09-0400 Body height 161.3 cm Cristobal Owens DPM Work Phone: [facility] 07-08-2024 12:09-0400 Body mass index (BMI) [Ratio] 35.22 kg/m2 Cristobal Owens DPM Work Phone: [facility] 07-08-2024 12:09-0400 Body weight 91.63 kg Cristobal Owens DPM Work Phone: [facility] 07-08-2024 12:09-0400 Diastolic blood pressure 80 mm[Hg] Cristobal Owens DPM Work Phone: [facility] 07-08-2024 12:09-0400 Heart rate 74 /min Cristobal Owens DPM Work Phone: [facility] 07-08-2024 12:09-0400 Respiratory rate 18 /min Cristobal Owens DPM Work Phone: [facility] 07-08-2024 12:09-0400 Systolic blood pressure 130 mm[Hg] Cristobal Owens DPM Work Phone: [facility] 04-12-2024 09:24-0400 Body height 160 cm Jairo Daley APRN-TESS Work Phone: [facility] 04-12-2024 09:24-0400 Body mass index (BMI) [Ratio] 37.36 kg/m2 Jairo Daley APRN-DATA MANAGEMENT SPECIALIST Work Phone: [facility] 04-12-2024 09:24-0400 Body temperature 97.81 [degF] Jairo Daley APRN-DATA MANAGEMENT SPECIALIST Work Phone: [facility] 04-12-2024 09:24-0400 Body weight 95.66 kg Jairo Daley APRN-DATA MANAGEMENT SPECIALIST Work Phone: [facility] 04-12-2024 09:24-0400 Diastolic blood pressure 80 mm[Hg] Jairo Daley APRN-DATA MANAGEMENT SPECIALIST Work Phone: [facility] 04-12-2024 09:24-0400 Heart rate 64 /min Jairo Daley APRN-DATA MANAGEMENT SPECIALIST Work Phone: [facility] 04-12-2024 09:24-0400 Respiratory rate 18 /min Jairo Daley APRN-DATA MANAGEMENT SPECIALIST Work Phone: [facility] 04-12-2024 09:24-0400 SaO2% (BldA) [Mass fraction] 95 % Jairo Daley APRN-DATA MANAGEMENT SPECIALIST Work Phone: [facility] 04-12-2024 09:24-0400 Systolic blood pressure 138 mm[Hg] Jairo Daley APRN-DATA MANAGEMENT SPECIALIST Work Phone: [facility] 12-11-2023 09:40-0500 Body height 160 cm Jairo Daley APRN-DATA MANAGEMENT SPECIALIST Work Phone: [facility] 12-11-2023 09:40-0500 Body mass index (BMI) [Ratio] 36.6 kg/m2 Jairo Daley APRN-DATA MANAGEMENT SPECIALIST Work Phone: [facility] [employer] [facility] 12-11-2023 09:40-0500 Body temperature 98.01 [degF] Jairo Daley APRN-DATA MANAGEMENT SPECIALIST Work Phone: [facility] [employer] [facility] 12-11-2023 09:40-0500 Body weight 93.71 kg Jairo Daley ELECTRIC POWERLINE EXAMINER-DATA MANAGEMENT SPECIALIST Work Phone: [facility] 12-11-2023 09:40-0500 Diastolic blood pressure 90 mm[Hg] Jairo Daley ELECTRIC POWERLINE EXAMINER-DATA MANAGEMENT SPECIALIST Work Phone: [facility] 12-11-2023 09:40-0500 Heart rate 64 /min Jairo Daley APRN-DATA MANAGEMENT SPECIALIST Work Phone: [facility] 12-11-2023 09:40-0500 SaO2% (BldA) [Mass fraction] 93 % Jairo Daley APRN-DATA MANAGEMENT SPECIALIST Work Phone: [facility] 12-11-2023 09:40-0500 Systolic blood pressure 150 mm[Hg] Jairo Daley APRN-DATA MANAGEMENT SPECIALIST Work Phone: [facility] 12-04-2023 15:54-0500 Body height 161.3 cm Cristobal Owens DPM Work Phone: [facility] 12-04-2023 15:54-0500 Body mass index (BMI) [Ratio] 35.22 kg/m2 Cristobal Owens DPM Work Phone: [facility] 12-04-2023 15:54-0500 Body weight 91.63 kg Cristobal Owens DPM Work Phone: [facility] 12-04-2023 15:54-0500 Diastolic blood pressure 81 mm[Hg] Cristobal Owens DPM Work Phone: [facility] 12-04-2023 15:54-0500 Heart rate 88 /min Cristobal Owens DPM Work Phone: [facility] 12-04-2023 15:54-0500 Systolic blood pressure 131 mm[Hg] Cristobal Brown DPM Work Phone: [facility] Encounters Encounter Date Encounter Type Care Provider Facility Start: 07-12-2025 ambulatory JASON DOMINGUEZ [facility] Start: 07-05-2025 End: 07-05-2025 ambulatory Jairo Daley DIRECTORY COMPILER-C Work Phone: [facility] Work Phone: Start: 07-05-2025 End: 07-05-2025 Patient encounter procedure Hay Rea MD -[facility] Work Phone: Start: 06-24-2025 End: 06-24-2025 ambulatory Jairo Daley APRN-TESS [facility] Start: 04-18-2025 End: 04-18-2025 ambulatory Jairo URBINA Facility[facility] Start: 03-11-2025 End: 03-11-2025 ambulatory Nat Cuba PA-C Facility:[facility] Start: 02-28-2025 End: 02-28-2025 ambulatory Jairo Daley APRN-TESS Facility:[facility] Start: 02-15-2025 End: 02-15-2025 ambulatory Jairo Daley APRN-TESS Facility:[facility] Start: 02-10-2025 End: 02-11-2025 ambulatory Brant Bruden DPM Facility:[facility] Start: 02-02-2025 End: 02-02-2025 ambulatory Jairo Daley APRN-DATA MANAGEMENT SPECIALIST Facility:[facility] Start: 01-31-2025 End: 01-31-2025 [facility] Start: 01-21-2025 Non-patient / Non-visit Xuan Daley DIRECTORY COMPILER-C Work Phone: [facility] Work Phone: Start: 01-21-2025 End: 01-21-2025 Patient encounter procedure Jairo Daley DIRECTORY COMPILER-C Work Phone: [facility] Work Phone: Start: 01-21-2025 End: 01-21-2025 ambulatory Jairo Daley DIRECTORY COMPILER-C Work Phone: [facility] Work Phone: Start: 12-24-2024 End: 12-24-2024 ambulatory Brant Burden DPM Facility[facility] Start: 12-16-2024 End: 12-16-2024 Office outpatient visit 25 minutes Jairo Rick Edi ELECTRIC POWERLINE EXAMINER-DATA MANAGEMENT SPECIALIST Work Phone: [facility] Comment on above: Benign essential HTN (Primary Dx); Arthritis, multiple joint involvement; Fibromyalgia; Acquired hypothyroidism; Primary insomnia; Chronic bronchitis with emphysema ([facility]-H[facility]); History of depression Start: 12-16-2024 End: 12-16-2024 ambulatory Formerly named [facility] Start: 12-15-2024 End: 12-15-2024 ambulatory Jairo Daley DIRECTORY COMPILER-C Work Phone: [facility] Work Phone: Start: 12-15-2024 End: 12-15-2024 Patient encounter procedure Jairo Daley DIRECTORY COMPILER-C Work Phone[facility] Work Phone: Start: 11-03-2024 End: 11-03-2024 Office outpatient visit 15 minutes Jairo Rick Edi ELECTRIC POWERLINE EXAMINER-DATA MANAGEMENT SPECIALIST Work Phone: [facility] Comment on above: Benign essential HTN (Primary Dx); Obesity, morbid ([facility]-HCC) Start: 11-03-2024 End: 11-03-2024 ambulatory Formerly named [facility] Start: 10-21-2024 End: 11-01-2024 Telephone encounter Isidra Vanesa [facility] Start: 10-06-2024 End: 10-06-2024 ambulatory Formerly named [facility] Start: 09-13-2024 End: 09-13-2024 Patient encounter procedure Jairo Rick Edi SILVER-DATA MANAGEMENT SPECIALIST Work Phone: [facility] Comment on above: Medicare annual well ness visit, subsequent (Primary Dx); COPD exacerbation ([facility]) Start: 09-13-2024 End: 09-13-2024 ambulatory Formerly named [facility] Start: 08-10-2024 End: 08-10-2024 Office outpatient visit 25 minutes Jairo Daley APRN-DATA MANAGEMENT SPECIALIST Work Phone: [facility] Comment on above: Fibromyalgia (Primar y Dx); Need for influenza vaccination; Arthritis, multiple joint involvement; Anxiety and depression; Acquired hypothyroidism; Benign essential HTN; Primary insomnia; Chronic bronchitis with emphysema ([facility] Mixed hyperlipidemia; Screening for diabetes mellitus (DM) Start: 08-10-2024 End: 08-10-2024 ambulatory Former[facility] named [facility] Start: 07-21-2024 Non-patient / Non-visit JACOB-Tika Daley Work Phone: [facility] Work Phone: Start: 07-21-2024 End: 07-21-2024 Admission to same day surgery center JACOB-Tika Daley Work Phone: [facility] Work Phone: Start: 07-21-2024 End: 07-21-2024 ambulatory LINDA Daley Work Phone: [facility] Work Phone: Start: 07-09-2024 End: 07-09-2024 Subsequent hospital visit by physician Jairo Daley APRN - DATA MANAGEMENT SPECIALIST Work Phone: [facility] Comment on above: Microscopic hematuri a Start: 07-08-2024 End: 07-08-2024 Bamboo flowsheet Cristobal Owens DPM Work Phone: [facility] Start: 07-08-2024 End: 07-08-2024 Bamboo flowsheet Cristobal Owens DPM Work Phone: [facility] Start: 07-08-2024 End: 07-08-2024 Office outpatient visit 15 minutes Cristobal Owens DPM Work Phone: [facility] Comment on above: Peroneal tendon tear , right, initial encounter (Primary Dx); Onychomycosis; Toe pain, bilateral Start: 07-08-2024 End: 07-08-2024 ambulatory CRISTOBAL OWENS Not Available Start: 05-13-2024 End: 05-13-2024 Telephone encounter Jairo Daley APRN-DATA MANAGEMENT SPECIALIST Work Phone: [facility] Start: 04-29-2024 End: 04-29-2024 ambulatory CRISTOBAL OWENS Not Available Start: 04-26-2024 Non-patient / Non-visit DIRECTORY COMPILER-Tika Daley Work Phone: [facility] Work Phone: Start: 04-12-2024 End: 04-12-2024 Office outpatient visit 25 minutes Jairo Daley ELECTRIC POWERLINE EXAMINER-DATA MANAGEMENT SPECIALIST [facility] Comment on above: Benign essential HTN (Primary Dx); Anxiety and depression; Arthritis, multiple joint involvement; Fibromyalgia; Acquired hypothyroidism; Primary insomnia; Chronic bronchitis with emphysema ([facility]-H[facility]); Special screening for malignant neoplasm of colon Start: 04-12-2024 End: 04-12-2024 ambulatory JAIROMarion DALEY [facility] Start: 04-08-2024 End: 04-08-2024 Refill Jairo Daley ELECTRIC POWERLINE EXAMINER-DATA MANAGEMENT SPECIALIST Work Phone: [facility] Comment on above: Fibromyalgia Start: 03-24-2024 End: 03-24-2024 Refill Jairo Daley APRN-DATA MANAGEMENT SPECIALIST Work Phone: [facility] Comment on above: Primary insomnia Start: 03-11-2024 End: 03-11-2024 ambulatory CRISTOBAL OWENS Not Available Start: 02-19-2024 End: 02-19-2024 ambulatory CRISTOBAL OWENS Not Available Start: 01-15-2024 Refill Isidra Vanesa [facility] Comment on above: Chronic bronchitis w ith emphysema; Arthritis, multiple joint involvement; Anxiety and depression; Fibromyalgia; Acquired hypothyroidism; Benign essential HTN; Primary insomnia; History of kidney stones Start: 01-13-2024 Refill Isidra Vanesa [facility] Comment on above: Chronic bronchitis w ith emphysema; Arthritis, multiple joint involvement; Anxiety and depression; Fibromyalgia; Acquired hypothyroidism; Benign essential HTN; Primary insomnia Start: 12-11-2023 End: 12-12-2023 ambulatory [facility]IRO [facility] Start: 12-11-2023 End: 12-11-2023 Office outpatient visit 25 minutes Jairo Daley APRN-DATA MANAGEMENT SPECIALIST Work Phone: [facility] Family Medicine Comment on above: Acquired hypothyroid ism (Primary Dx); Panlobular emphysema (CMS-HCC); Obesity, morbid (CMS-HCC); Need for hepatitis C screening test; Arthritis, multiple joint involvement; Anxiety and depression; Fibromyalgia; Benign essential HTN Start: 12-04-2023 End: 12-04-2023 Office outpatient new [...] Medicine Start: 11-17-2023 End: 11-17-2023 ambulatory PRANAV TRINIDAD [facility] Start: 01-03-2023 End: 01-03-2023 Patient encounter status Jairo Daley ELECTRIC POWERLINE EXAMINER - DATA MANAGEMENT SPECIALIST Work Phone: [facility] Start: 01-03-2023 End: 01-03-2023 Subsequent hospital visit by physician Jairo Daley ELECTRIC POWERLINE EXAMINER - DATA MANAGEMENT SPECIALIST Work Phone: [facility] Comment on above: Renal calculus; Pre-op testing Start: 12-26-2022 End: 12-28-2022 Subsequent hospital visit by physician [facility] Scan Room [facility] Comment on above: Renal calculus; Gross hematuria Start: 12-12-2022 End: 12-12-2022 Subsequent hospital visit by physician Jairo Daley ELECTRIC POWERLINE EXAMINER - DATA MANAGEMENT SPECIALIST Work Phone: [facility] Comment on above: Renal calculus; Gross hematuria Start: 12-03-2022 End: 12-03-2022 ambulatory JANEEN POOLE Facility:[facility] Start: 10-21-2022 End: 10-22-[address] EULALIO MENESES Facility:[facility] Start: 09-11-2022 End: 09-22-2022 Emergency department patient visit RANDAL ORTIZ Facility:[facility] Start: 08-13-2022 End: 08-14-[address] XAVIER HOLLINGSWORTH Facility:[facility] Start: 08-07-2022 End: 08-08-[address] YANELIS ENGEL Facility:[facility] Start: 07-03-2022 End: 07-04-[address] YANELIS ENGEL Facility:[facility] Start: 06-26-2022 End: 06-27-[address] PRANAV TRINIDAD Facility:[facility] Start: 06-19-2022 End: 06-19-2022 ambulatory BRAULIO LASSITER Facility:[facility] Start: 05-28-2022 End: 05-29-[address] XAVIER HOLLINGSWORTH Facility:[facility] Start: 04-03-2022 End: 04-04-[address] YANELIS ENGEL Facility: Start: 03-08-2022 End: 03-08-[address] YANELIS ENGEL Facility:[facility] Procedures Date Procedure Procedure Detail Performing Clinician Start: 12-16-2024 Adult depression scr eening assessment Jairo Daley ELECTRIC POWERLINE EXAMINER-[facility] Work Phone: Start: 09-13-2024 Adult depression scr eening assessment Jairo Daley APRN-[facility] Work Phone: Start: 07-21-2024 Screening colonoscopy N P-C Jairo Daley Work Phone: Start: 07-09-2024 Assay of urea nitrog en quantitative Adele Zhanna Wayne ELECTRIC POWERLINE EXAMINER - [facility] Work Phone: Start: 04-12-2024 Adult depression scr eening assessment Jairo Daley ELECTRIC POWERLINE EXAMINER-[facility] Work Phone: Start: 12-11-2023 Adult depression scr eening assessment Jairo D[facility]IC [facility]LINE [facility] Work Phone: Start: 08-20-2023 Adult depression scr eening assessment Adysan Sleek [employer] Start: 01-03-2023 Ecg routine ecg w/le ast 12 lds w/i&r Adele Chao Wayne ELECTRIC POWERLINE EXAMINER - [facility] Work Phone: Start: 01-03-2023 Basic metabolic pane l calcium total Adele Chao Wayne ELECTRIC POWERLINE EXAMINER - [facility] Work Phone: Start: 12-26-2022 Ct abdomen & pelvis w/o contrst 1/> body re Jason Dominguez MD Work Phone: Start: 12-26-2022 Assay of urea nitrog en quantitative Jason Dominguez MD Work Phone: Start: 12-12-2022 Urnls dip stick/tabl et reagent auto microscopy Jason Dominguez MD Work Phone: Start: 08-13-2022 Mammography Adysan Sle ek [employer] Plan of Treatment Date Care Activity Detail Author Start: 12-16-2025 Adult BMI Screening Adult BMI Screen ing [facility] [employer] [facility] Start: 12-16-2025 Depression Screening Depression Scre ening [facility] [employer] [facility] Start: 12-16-2025 Fall Risk Screening Fall Risk Screen ing [facility] [employer] [facility] Start: 12-16-2025 Tobacco Screening Tobacco Screening [facility] Start: 11-03-2025 Adult BMI Follow Up Plan Adult BMI F ollow Up Plan [facility] Start: 11-03-2025 Adult BMI Screening Adult BMI Screen ing [facility] [employer] [facility] Start: 11-03-2025 Tobacco Screening Tobacco Screening [facility] Start: 10-06-2025 Adult BMI Follow Up Plan Adult BMI F ollow Up Plan [facility] Start: 10-06-2025 Adult BMI Screening Adult BMI Screen ing [facility] [employer] [facility] Start: 10-06-2025 Tobacco Screening Tobacco Screening [facility] Start: 09-13-2025 Adult BMI Screening Adult BMI Screen ing [facility] [employer] Start: 09-13-2025 Depression Screening Depression Scre ening [facility] [employer] [facility] Start: 09-13-2025 Fall Risk Screening Fall Risk Screen ing [facility] [employer] Start: 09-13-2025 Medicare Annual Well ness Visit Medicare Annual Wellness Visit [facility] Start: 09-13-2025 Tobacco Screening Tobacco Screening [facility] [employer] Start: 08-10-2025 Adult BMI Follow Up Plan Adult BMI F ollow Up Plan [facility] [employer] [facility] Start: 08-10-2025 Adult BMI Screening Adult BMI Screen ing [facility] [employer] [facility] Start: 08-10-2025 Tobacco Screening Tobacco Screening [facility] [employer] [facility] Start: 07-05-[address] [facility] Start: 06-09-2025 End: 06-09-2025 Patient encounter procedure 06/09/2025 9:00 AM EDT Office Visit [facility] UROLOGY Part of [address] [place] [address] Adele Black, ELECTRIC POWERLINE EXAMINER - DATA MANAGEMENT SPECIALIST [address] [place] [phone] 1yr PVR KUB [facility] UROLOGY Part of [facility] Comment on above: 1yr PVR KUB Start: 05-18-2025 End: 05-18-2025 Patient encounter procedure 05/18/2025 1:00 PM EDT [facility] [address] [place] [address] Jairo Daley, ELECTRIC POWERLINE EXAMINER-DATA MANAGEMENT SPECIALIST [address] [place] [address] [facility] Start: 04-12-2025 Adult BMI Follow Up Plan Adult BMI F ollow Up Plan [facility] Start: 04-12-2025 Adult BMI Screening Adult BMI Screen ing [facility] Start: 04-12-2025 Depression Screening Depression Scre ening [facility] Start: 04-12-2025 Fall Risk Screening Fall Risk Screen ing [facility] Start: 04-12-2025 Tobacco Screening Tobacco Screening [facility] Start: 01-21-2025 Radionuclide myocard ial perfusion stress study NM helen perf SPECT rest & str [facility] Start: 01-21-2025 SPECT Heart perfusio n at rest and W stress and W radionuclide IV [facility] Start: 12-16-2024 End: 12-16-2024 Patient encounter procedure 12/16/2024 2:00 PM EST Office Visit [facility] Internal Medicine - Family Medicine [address] [place] [address] Jairo Daley, ELECTRIC POWERLINE EXAMINER-DATA MANAGEMENT SPECIALIST [address] [place] [address] [facility] - [facility] Start: 12-15-[address] [facility] Start: 12-11-2024 Adult BMI Follow Up Plan Adult BMI F ollow Up Plan [facility] Start: 12-11-2024 Adult BMI Screening Adult BMI Screen ing [facility] Start: 12-11-2024 Depression Screening Depression Scre ening [facility] Start: 12-11-2024 Fall Risk Screening Fall Risk Screen ing [facility] Start: 12-11-2024 Tobacco Screening Tobacco Screening [facility] Start: 11-29-2024 COVID-19 Vaccine ( season) COVID-19 Vaccine ( season) [facility] Start: 11-03-2024 End: 11-03-2024 Patient encounter procedure 11/03/2024 1:00 PM EST [facility] [address] [place] [address] Jairo Daley, ELECTRIC POWERLINE EXAMINER-DATA MANAGEMENT SPECIALIST [address] [place] [address] [facility] Internal Medicine - Family Medicine Start: 09-23-2024 End: 09-23-2024 Patient encounter procedure 09/23/2024 11:50 AM EST Procedure Visit [facility] [address] [facility] [address] [place] [address] Cristobal Owens, DPKolby [address] [facility] [address] [place] [address] [facility] Start: 09-13-2024 End: 09-13-2024 Patient encounter procedure 09/13/2024 2:40 PM EST Office Visit [facility] Internal Medicine - Family Medicine [address] [place] [address] Jairo Daley, ELECTRIC POWERLINE EXAMINER-DATA MANAGEMENT SPECIALIST [address] [place] [address] [facility] - [facility] Start: 08-20-2024 Adult BMI Follow Up Plan Adult BMI F ollow Up Plan [facility] Start: 08-20-2024 Adult BMI Screening Adult BMI Screen ing [facility] Start: 08-20-2024 Depression Screening Depression Scre ening [facility] Start: 08-20-2024 Fall Risk Screening Fall Risk Screen ing [facility] Start: 08-20-2024 Medicare Annual Well ness Visit Medicare Annual Wellness Visit [facility] Start: 08-20-2024 Tobacco Screening Tobacco Screening [facility] Start: 08-13-2024 Screening for malign ant neoplasm of breast Breast cancer screen [facility] Start: 08-10-2024 End: 08-10-2024 Patient encounter procedure 08/10/2024 8:00 AM EDT Office Visit [facility] [address] [place] [address] Jairo Daley, ELECTRIC POWERLINE EXAMINER-DATA MANAGEMENT SPECIALIST [address] [place] [phone] [facility] Start: 07-21-[address] [facility] Start: 07-16-2024 End: 07-16-2024 Patient encounter procedure 07/16/2024 8:45 AM EDT Office Visit [facility] UROLOGY Part [address] [place] [phone] Jason Dominguez MD [address] [facility], [address] [place] [address] [facility] Comment on above: Follow up CT Start: 07-08-2024 End: 07-08-2024 Patient encounter procedure 07/08/2024 11:50 AM EDT Procedure Visit [facility] [address] [facility] [address] [place] [address] Cristobal Owens DPM [address] [facility] [address] [place] [address] Peroneal tendon tear, right, initial encounter (Primary Dx); Onychomycosis; Toe pain, bilateral [facility] Comment on above: Peroneal tendon tear , right, initial encounter (Primary Dx); Onychomycosis; Toe pain, bilateral Start: 06-29-2024 Annual Wellness Visi t (Medicare) Annual Wellness Visit (Medicare) [facility] Start: 06-20-2024 COVID-19 Vaccine ( season) COVID-19 Vaccine ( season) [facility] Start: 06-20-2024 Influenza vaccination [facility] Start: 05-20-2024 Influenza vaccination Flu vaccine (# 1) [facility] Start: 04-12-2024 End: 04-12-2024 Patient encounter procedure 04/12/2024 9:40 AM EDT Office Visit [facility] [address] [place] [address] Jairo Daley, ELECTRIC POWERLINE EXAMINER-[facility] [address] [phone] [facility] Start: 02-12-2024 End: 02-12-2024 Patient encounter procedure 02/12/2024 4:40 PM EDT Procedure Visit [facility] [address] [facility] [address] [place] [address] Cristobal Owens DPM [address] [address] [facility] Start: 01-07-2024 Tobacco Counseling Tobacco Counselin [facility] Start: 12-18-2023 End: 12-18-2023 Clinical Support 12/18/2023 8:50 AM EST Clinical Support [facility] [address] [facility] [address] [place] [address] Cristobal Owens DPM [address] [address] [facility] Start: 12-11-2023 End: 12-11-2023 Patient encounter procedure 12/11/2023 9:45 AM EST Office Visit [facility] [address] [place] [address] Jairo Daley, ELECTRIC POWERLINE EXAMINER-DATA MANAGEMENT SPECIALIST [address] [place] [phone] [facility] Start: 12-04-2023 End: 12-04-2023 Patient encounter procedure 12/04/2023 4:00 PM EST Office Visit [facility] [address] [facility] [address] [place] [phone] Cristobal Owens, VIKI [address] [facility] [address] [place] [address] [facility] Start: 08-13-2023 Screening for malign ant neoplasm of breast Mammogram [facility] Start: 06-20-2023 COVID-19 Vaccine () COVID-19 Vaccine () [facility] Start: 01-21-2023 End: 01-21-2023 Admission to same day surgery center 01/21/2023 Surgery IP Unit Jason Dominguez MD [address] [place] [address], [address] [place] [id number] ESWL EXTRACORPOREAL SHOCK WAVE LITHOTRIPSY [facility] Comment on above: ESWL EXTRACORPOREAL SHOCK WAVE LITHOTRIPSY Start: 01-21-2023 End: 01-21-2023 Lithotripsy xtrcorp shock wave ESWL EXTRACORPOREAL SHOCK WAVE LITHOTRIPSY Renal calculus 01/21/2023 7:30 AM EDT [facility] Start: 01-21-2023 Subsequent hospital visit by physician 01/21/2023 Hospital Encounter IP Unit Jason Dominguez MD [address] [place] [address], [address] [place] [address] [facility] Start: 12-31-2022 End: 12-31-2022 Patient encounter procedure 12/31/2022 Appointment Radiology [facility] CT Scan Start: 12-12-2022 Annual Wellness Visi t (AWV) Annual Wellness Visit (AWV) [facility] Start: 2016 Respiratory Syncytia l Virus (RSV) or age 60 yrs+ (1 - 1-dose 60+ series) Respiratory Syncytial Virus (RSV) or age 60 yrs+ (1 - 1-dose 60+ series) [facility] Start: 2011 Screening for osteoporosis DEXA (modify frequency per FRAX score) [facility] Start: 2006 Administration of varicella zoster vaccine Zoster (Shingles) Vaccine (1 of 2) [facility] [employer] [facility] Start: 2006 Screening for malign ant neoplasm of breast Breast cancer screen [facility] Start: 2006 Shingles vaccine (1 of 2) Shingles vaccine (1 of 2) [facility] Start: 2001 Screening for malign ant neoplasm of colon [facility] Start: 1996 Lipid panel Lipids [facility] Start: 1991 Diabetes screen Diabetes screen [facility] Start: 1975 DTaP,Tdap and Td Vaccines (1 - Tdap) DTaP,Tdap and Td Vaccines (1 - Tdap) [facility] [employer] [facility] Start: 1975 DTaP/Tdap/Td vaccine (1 - Tdap) DTaP/Tdap/Td vaccine (1 - Tdap) [facility] Start: 1974 Hepatitis C screening Hepatitis C sc reen [facility] Start: 1968 Depression Screen Depression Screen [facility] Start: 06-05-1957 COVID-19 Vaccine (#1) COVID-19 Vacci ne (#1) [facility] Start: 1956 Screening for malign ant neoplasm of colon [facility] Start: 1956 Tobacco Counseling Tobacco Counselin g [facility] [employer] [facility] End: 08-10-2025 CBC W Auto Differential panel - Blood CBC auto differential Lab Routine Acquired hypothyroidism 1 Occurrences starting 08/10/2024 until 08/10/2025 [facility] Comment on above: 1 Occurrences starti ng 08/10/2024 until 08/10/2025 End: 08-10-2025 Comprehensive metabolic 2000 panel - Serum or Plasma Comprehensive metabolic panel Lab Routine Acquired hypothyroidism 1 Occurrences starting 08/10/2024 until 08/10/2025 [employer] Work Phone: Comment on above: 1 Occurrences starti ng 08/10/2024 until 08/10/2025 End: 12-12-2022 Culture, Urine [facility] Work Phone: Comment on above: 1 Occurrences starti ng 12/12/2022 until 12/12/2022 End: 08-10-2025 Hemoglobin A1c/Hemoglobin.total in Blood Hemoglobin A1c Lab Routine Screening for diabetes mellitus (DM) 1 Occurrences starting 08/10/2024 until 08/10/2025 [employer] Comment on above: 1 Occurrences starti ng 08/10/2024 until 08/10/2025 End: 08-10-2025 Lipid 1996 panel - Serum or Plasma Lipid profile Lab Routine Mixed hyperlipidemia 1 Occurrences starting 08/10/2024 until 08/10/2025 [employer] Comment on above: 1 Occurrences starti ng 08/10/2024 until 08/10/2025 Patient Education Hemorrhoids (D C) Diverticulosis (DC) Colon Polypectomy (DC) Know your [facility] Work Phone: End: 08-10-2025 Thyrotropin [Units/volume] in Serum or Plasma TSH Lab Routine Acquired hypothyroidism 1 Occurrences starting 08/10/2024 until 08/10/2025 [employer] Comment on above: 1 Occurrences starti ng 08/10/2024 until 08/10/2025 US Lower extremity - right US foot right Imaging Routine Other specified disorders of synovium, right ankle and foot Ordered: 12/04/2023 [facility] Work Phone: Comment on above: Ordered: 12/04/2023 Immunizations Immunization Date Immunization Notes Care Provider Cristine hunt 08-10-2024 Seasonal trivalent influenza vaccine, adjuvanted, preservative free Jairo Daley APRN-[facility] Work Phone: [facility] 08-10-2024 Immunization, In Clinic,; Translations: [Drug or medicament (substance)] Jairo Daley ELECTRIC POWERLINE EXAMINER-DATA MANAGEMENT SPECIALIST Work Phone: [facility] 08-20-2023 Influenza Vaccine, Quadrivalent, Adjuvanted Adysan Sleek [facility] 08-20-2023 influenza virus vaccine, unspecified formulation Jairo Daley ELECTRIC POWERLINE EXAMINER-DATA MANAGEMENT SPECIALIST Work Phone: [facility] 10-02-2022 Pneumococcal Conjuga te 20-valent Adysan Sleek [facility] 10-02-2022 pneumococcal conjuga te vaccine, 7 valent Adysan Sleek [facility] 07-30-2022 Influenza Vaccine, Quadrivalent, Adjuvanted Adysan Sleek [facility] Payers Date Payer Category Payer Private Health Insurance 2024 Medicare [id number] 2024 Medicare HMO [id number] 2024 Self-pay [id number] 2024 Unknown [id number] 2024 Medicare [id number] 2023 Medicaid [id number] 2023 Medicare [id number] 2023 Medicare [id number] 2022 Medicaid [id number] [id number] 2022 Medicare [id number] [id number] .[id number] 2017 Medicare [id number] [id number].3 .407926.315 2017 Unknown [id number] 1959 Medicaid [id number] 1959 Medicare [id number] 1959 Unknown [id number] 1956 Unknown [id number] 2.16.840.1.082445.3.579.2.593 1956 Unknown [id number] 2.16.840.1.324978.3.579.2.593 1956 Unknown [id number] 2.16.840.1.882054.3.579.2.593 1956 Unknown [id number] 2.16.840.1.207143.3.579.2.593 1956 Unknown [id number] 2.16.840.1.019541.3.579.2.593 1956 Unknown [id number] 2.16.840.1.495739.3.579.2.593 1956 Unknown [id number] 2.16.840.1.204609.3.579.2.593 1956 Unknown [id number] 2.16.840.1.339468.3.579.2.593 1956 Unknown [id number] 2.16.840.1.881398.3.579.2.593 1956 Unknown [id number] 2.16.840.1.965696.3.579.2.593 1956 Unknown [id number] 2.16.840.1.706442.3.579.2.128 6 1956 Unknown [id number] 2.16.840.1.152311.3.579.2.125 9 1956 Unknown [id number] 2.16.840.1.481199.3.579.2.125 9 1956 Unknown [id number] 2.16.840.1.023431.3.579.2.125 9 1956 Unknown [id number] 2.16.840.1.426962.3.579.2.125 9 1957 Unknown [id number] 2.16.840.1.008479.3.579.2.125 9 1956 Unknown [id number] 2.16.840.1.533636.3.579.2.128 6 1956 Unknown [id number] 2.16.840.1.324538.3.579.2.128 6 1956 Unknown [id number] 2.16.840.1.098374.3.579.2.128 6 1956 Unknown [id number] 2.16.840.1.652991.3.579.2.128 6 1956 Unknown [id number] 2.840.1.074254.3.579.2.128 6 1956 Unknown [id number] 2.840.1.337819.3.579.2.128 6 1956 Unknown [id number] 2.16840.1.441232.3.579.2.196 1956 Unknown [id number] 2.840.1.099773.3.579.2.196 1956 Unknown [id number] 2.840.1.107412.3.579.2.196 1956 Unknown [id number] 2.840.1.644697.3.579.2.196 1956 Unknown [id number] 2.16840.1.129396.3.579.2.196 1956 Unknown [id number] 2.16840.1.088632.3.579.2.196 1956 Unknown [id number] 2.16840.1.704829.3.579.2.196 1956 Unknown [id number] 2.16840.1.351519.3.579.2.196 1956 Unknown [id number] 2.16.840.1.354516.3.579.2.196 1956 Unknown [id number] 2.16.840.1.246901.3.579.2.196 1956 Unknown [id number] 2.16.840.1.067041.3.579.2.196 1956 Unknown [id number] 2.16.840.1.519078.3.579.2.196 1956 Unknown [id number] 2.16.840.1.343479.3.579.2.196 1956 Unknown [id number] 2.16.840.1.167864.3.579.2.196 1956 Unknown [id number] 2.16.840.1.313153.3.579.2.173 Private Health Insurance [facility] [id number] Unknown HCAP/HFA/FAP Active [id number] Unknown [id number] 2.16840.1.468713.3.579.2.531 Unknown [id number] 2.16840.1.973576.3.579.2.531 Unknown [id number] 2.840.1.641601.3.579.2.531 Unknown [id number] 2.840.1.003215.3.579.2.531 Social History Date Type Detail Facility Start: 12-12-2022 End: 07-05-2025 Tobacco smoking status MEIS Smokes tobacco daily [facility] [employer] Phone: History of tobacco use Cigarette Smoker [facility] Phone: Start: 12-12-2022 End: 12-16-2024 Cigarettes smoked current (pack per day) - Reported 0.5 [facility] Start: 12-12-2022 End: 12-16-2024 Tobacco use and exposure Smokeless tobacco non-user [employer] Phone: Start: 12-12-2022 End: 12-16-2024 Alcohol intake Current drinker of alcohol (finding) [employer] Phone: Start: 12-12-2022 Tobacco Comment Smokes 6-8 cigs/day [employer] Phone: Start: 12-12-2022 Alcohol Comment Beer 2-3 every 2 wee ks [employer] Phone: Start: 1955 Sex Assigned At Not on file [facility] Phone: Start: 12-04-2023 Tobacco smoking stat [facility] Never smoked tobacco [facility] Start: 12-04-2023 End: 12-16-2024 Gender identity Not on file [facility] History of tobacco use Passive smoker [facility] Start: 12-04-2023 End: 07-08-2024 Alcohol intake Ex-drinker (finding) [facility] How often to you hav e a drink containing alcohol? 2-4 times a month [facility] Average Number of Drinks Not on file [facility] Start: 12-04-2023 Alcohol Comment coffee daily [facility] Start: 07-21-2024 End: 12-15-2024 Tobacco smoking status NHIS Smoker (finding) [facility] Start: 1955 Sex Assigned At Female [facility] Start: 02-20-2022 Alcohol Comment on weekends, n ot often. [employer] [facility] Start: 10-22-2016 End: 01-22-2025 Sex Female (finding) [facility] Goals Date Patient Goal Desired Activity /State Clinical Notes 03-08-2022 to 07-05-2025 Note Date & Type Note Facility 07-05-2025 Evaluation note Diagnosis Onset Date Resolution Essential (primary) hypertension acute July 05, 2025 9:12am Tobacco use disorder, continuous acute July 05, 2025 9:12am Left ventricular hypertrophy due to hypertensive disease noneactive June 202024 9:12am Atypical chest pain noneactive Mercedes james 2024 9:12am [facility] Work Phone: 1(856) 738-220406-30-2025 NoteThis is a Telephone Appointment *This visit was conducted by Telephone with real time communicationand interaction. The patient provided written consent for treatment. The patient understands their rights, the HIPAA risks and that they will be charged accordingly for the services rendered. This visit was held via telephone within the [facility] while they were at: Her home. This telephone visit was conducted due to: Lengthy transportation/transportation issues. Audio only communication was requested by the patientdue to Inability by patient to perform videoconferencing. Chief Complaint Follow-up right ankle hardware removal and arthroscopy with debridement History of Present Illness Patient is a pleasant 69-year-old female who is 68 days status post right ankle hardware removal and arthroscopy with debridement. She is progressing well. She relates that she feels better without her ankle brace on and has been using it less and less. Her pain is greatly proved since prior to surgery and she is very happy with her progress thus far. She is also seeing orthopedic surgery for her knee pain she relates. Review of Systems Constitutional Head Nose Mouth Throat Cardio/Respiratory Hematologic Chills: No Headache: No Shortness of Breath: No History of DVT: No Fever: No Sore Throat: No Chest Pain: No History of Claudication: No Ear Pain: No Palpitation: No History of Aneurysm: No History of Gangrene: No Genitourinary Musculoskeletal Psychiatric Vascular Burning: No Muscle Weakness: No Anxiety: No Blood Disorder: No Pain: No Joint Pain: Yes Depression: No Numbness: No Gastrointestinal Dermatology Rheumatologic Problems: No Rash: No History of Rheumatic Arthritis: No Pain: No Pruritus: No History of Gout: No History of Lupus: No [1] Physical Exam Vitals & Measurements HT: 157 cm WT: 95.6 kg WT: 95.6 kg (Dosing) BMI: 38.78 General: No audible acute distress. Normal conversant. Alert and oriented x 4. Attentive and appropriate. Asks appropriate questions. No gross deficits in reasoning memory or intellect. Respiratory: No audible labored breathing. No audible wheezing or stridor noted. Additional Vitals No qualifying data available. Assessment/Plan 1. Status post arthroscopy 2. Smoker Current smoking cessation Orders: XR Ankle 3 Views Right Patient is a pleasant 69-year-old male who is 68 days status post above- mentioned procedures right lower extremity. Patient is progressing well with low concern today for postoperative infection or DVT on exam. Progressing well postop she relates. Continue follow-up with orthopedics for knee issues. She can follow-up in 10 to 11 months for her 1 year postop visit. Sooner if she is having issues. All questions concerns answered. Patient and are amenable to plan. *Weightbearing right ankle radiographs next visit. 1 year postop visit next visit. Time Spent with the Patient Today's visit was performed via telehealth and utilized an audio only connection. Duration of the visit in conversation with the patient: [15] Problem List/Past Medical History Ongoing Allergic rhinitis Ankle pain, right Asthma Chronic obstructive pulmonary disease (COPD) Deafness in left ear Fibromyalgia History of endometrial cancer History of hepatitis C History of kidney stones HTN (hypertension) Hypothyroidism Osteoarthritis of multiple joints Right ankle instability Historical No qualifying data Procedure/Surgical History Cardiac catheterization Tonsillectomy Appendectomy BSO - Total abdominal hysterectomy and bilateral salpingo-oophorectomy Right fibula ORIF Colonoscopy Fusion of lumbar spine Gastrocnemius Release (Right) (02/10/2025) Examination Under Anesthesia (Right, Ankle) (02/10/2025) Repair Peroneal Tendon (Right) (02/10/2025) Debridement Lower Extremity (Right) (02/10/2025) Arthroscopy Ankle (Right) (02/10/2025) Removal Hardware Extremity Lower (Right, Ankle) (02/10/2025) Application Splint (Right, Ankle) (02/10/2025) Medications Albuterol (Eqv-Proventil HFA) 90 mcg/inh inhalation aerosol, 6 g, 0 Refill(s), INHALE 2 PUFFS EVERY4 HOURS NEEDED FOR WHEEZING OR SHORTNESS OF BREATH diclofenac sodium 75 mg oral delayed release tablet, TAKE 1 TABLET BY MOUTH IN THE MORNING AND BEFORE BEDTIME FOR PAIN DME, See Instructions DME, See Instructions FLUoxetine 10 mg oral capsule, 90 EA, 0 Refill(s), TAKE 1 CAPSULE (10 MG TOTAL) BY MOUTH NIGHTLY. gabapentin 100 mg oral capsule, 180 EA, 0 Refill(s), TAKE 1 CAPSULE BY MOUTH EVERY MORNING AND AFTERNOON gabapentin 300 mg oral capsule, 90 EA, 0 Refill(s), TAKE 1 CAPSULE BY MOUTH EVERY DAY AT NIGHT levothyroxine 25 mcg (0.025 mg) oral tablet, 90 EA, 0 Refill(s), TAKE 1 TABLET (25 MCG TOTAL) BY MOUTH IN THE MORNING losartan 100 mg oral tablet, 90 EA, 0 Refill(s), TAKE 1 TABLET (100 MG TOTAL) BY MOUTH IN THE MORNING Metoprolol Tartrate 25 mg o (more content not included)...[facility]04-25-2025 NoteAdmission Information Admitted on February 10, 2025 status post right lower extremity surgery. Please see procedure note further details. Hospital Course Patient underwent right ankle surgery on February 10, 2025. Please see procedure note for the details.She was admitted for postoperative pain control. Her pain is well-controlled on oral analgesics during her stay. She also had a preoperative regional block which has helped improve her pain quite a bit she relates. She had return of bowel function. She voided her bladder. She was seen by physical therapy and Occupational Therapy. They recommended acute rehab. She refuses acute rehab and wants to go home. They then recommended home health care. She also refuses home health care. She wants to go home and relates that she has her and several young neighbors who can assist her. She was also seen by hospitalist for medical comanagement. She denies calf pain. Otherwise feels comfortable with decision to discharge today. Medications Home Albuterol (Eqv-Proventil HFA) 90 mcg/inh inhalation aerosol, 6 g, 0 Refill(s), INHALE 2 PUFFS EVERY4 HOURS NEEDED FOR WHEEZING OR SHORTNESS OF BREATH diclofenac sodium 75 mg oral delayed release tablet, TAKE 1 TABLET BY MOUTH IN THE MORNING AND BEFORE BEDTIME FOR PAIN FLUoxetine 10 mg oral capsule, 90 EA, 0 Refill(s), TAKE 1 CAPSULE (10 MG TOTAL) BY MOUTH NIGHTLY. gabapentin 100 mg oral capsule, 180 EA, 0 Refill(s), TAKE 1 CAPSULE BY MOUTH EVERY MORNING AND AFTERNOON gabapentin 300 mg oral capsule, 90 EA, 0 Refill(s), TAKE 1 CAPSULE BY MOUTH EVERY DAY AT NIGHT levothyroxine 25 mcg (0.025 mg) oral tablet, 90 EA, 0 Refill(s), TAKE 1 TABLET (25 MCG TOTAL) BY MOUTH IN THE MORNING losartan 100 mg oral tablet, 90 EA, 0 Refill(s), TAKE 1 TABLET (100 MG TOTAL) BY MOUTH IN THE MORNING Metoprolol Tartrate 25 mg oral tablet, 180 EA, 0 Refill(s), TAKE 1 TABLET BY MOUTH IN THE MORNING AND BEFORE BEDTIME spironolactone 25 mg oral tablet, 25 mg= 1 tabs, Oral, Daily traZODone 150 mg oral tablet, 90 EA, 0 Refill(s), TAKE 1 TABLET BY MOUTH EVERY DAY AT NIGHT Trelegy Ellipta 100 mcg-62.5 mcg-25 mcg/inh inhalation powder, 1 inh, Inhale, qAM Prescriptions acetaminophen 650 mg oral tablet, extended release, 650 mg= 1 tabs, Oral, q8hr DME, See Instructions DME, See Instructions Lovenox 40 mg/0.4 mL injectable solution, 40 mg= 0.4 mL, Subcutaneous, Daily ondansetron 4 mg oral tablet, 4 mg= 1 tabs, Oral, q8hr, PRN oxyCODONE 5 mg oral tablet, 5 mg= 1 tabs, Oral, q6hr, PRN Vitamin B Complex with C and Zinc oral tablet, 1 tabs, Oral, Daily Procedures and Treatment Provided February 10, 2025 Procedure #1: Stress exam under anesthesia right ankle Procedure #2: Right ankle arthroscopy with extensive debridement Procedure #3: Right open gastrocnemius recession Procedure #4: Removal hardware right ankle/lateral malleolus Procedure #5: Right peroneus longus tendon tenolysis Procedure #6: Right peroneus brevis tendon repair with tubularization and debridement Procedure #7: Application short leg posterior and sugar-tong splint right lower extremity Physical Exam Vitals & Measurements T: 36.2 ?C (Oral) HR: 91 (Peripheral) RR: 16 BP: 142/66 SpO2: 91% HT: 157 cm HT: 157 cm WT: 100.5 kg (Dosing) WT: 100.5 kg BMI: 40.77 BMI: 40.77 Constitutional: Patient is conversant, well developed and in no acute distress. They are alert and oriented to person place and time. Denies nausea, vomiting, fever, chills, shortness of breath, and calf pain. Pain is well controlled with medication. Respiratory: normal respiratory effort Neck: supple and symmetric Vascular: Dorsalis pedis pulses 2/4 and Posterior tibial pulses 2/4 with digital hair growth present. CFT was less than 3 secondsto the distal toes bilateral. There is notevidence of ischemic skin changes. Skin temperature to the toes is warm to the distal digits bilateral. Edema is absentto the lower extremities. Negative edema noted to bilateral calves. Negative increase in warmth to bilateral calves. Neurologic: Sensation still altered from nerve block reportedly. Sensation is diminished to the plantar feet as tested with [employer] monofilament. Gross motor intact bilateral lower extremity Dermatologic: Dressing and splint are clean dry and intact right lower extremity. No streaking erythema noted proximal to dressing. No underlying hematoma or seroma formation noted. No purulence, no crepitus, no malodor, and no fluctuance noted to the operative extremity. Musculoskeletal: There is no pain around the incision site. Compartments are soft compressible withno pain on proportion to the operative lower extremity. No pain noted to bilateral calves. Additional Vitals No qualifying data available. Discharge Plan Day 1 status post above-mentioned procedures. Prescriptions signed and sent to pharmacy. Continue pain regimen Nonweightbearing right lower extremity. PT eval and treat. OT eval and treat. Reviewed notes. Discu (more content not included)...[facility]04-23-2025 NoteChief Complaint RIGHT ANKLE PAIN & INSTABLITY SARAH BETH FOR: RIGHT LOWER EXTREMITY SURGERY History of Present Illness PATIENT : 1955 PLANNED PROCEDURE: Right ankle removal of hardware, right ankle arthroscopy with debridement, peroneal tendon debridement/repair/possible tenodesis, possible lateral ankle stabilization, stress exam under anesthesia, gastrocnemius recession, possible multiple tenolysis, any other tendon transfer/ten otomy/tendon lengthening procedures as needed DATE OF PROCEDURE: December 13, 2024 LOCATION OF PROCEDURE: [facility] SURGEON: Brant Burden DPM INFORMED CONSENT: Obtained by and on file at [facility] Patient is a pleasant 69-year-old female who underwent open reduction internal fixation right anklefracture/lateral malleolus at an outside hospital. She now presents for removal of hardware ankle arthroscopy with debridement and potential lateral ankle stabilization as outlined above. She has hadpain and symptoms for greater than 6 months. All risk, benefits, alternatives explained. Consent signed. She wants to proceed with intervention as outlined above in the operative theater. Review of Systems Constitutional Head Nose Mouth Throat Cardio/Respiratory Hematologic Chills: No Headache: No Shortness of Breath: No History of DVT: No Fever: No Sore Throat: No Chest Pain: No History of Claudication: No Ear Pain: No Palpitation: No History of Aneurysm: No History of Gangrene: No Genitourinary Musculoskeletal Psychiatric Vascular Burning: No Muscle Weakness: Yes Anxiety: No Blood Disorder: No Pain: No Joint Pain: No Depression: No Numbness: No Gastrointestinal Dermatology Rheumatologic Problems: No Rash: No History of Rheumatic Arthritis: Yes Pain: No Pruritus: No History of Gout: No History of Lupus: No Physical Exam Vitals & Measurements HR: 91 (Peripheral) BP: 208/102 HT: 157 cm WT: 95.6 kg WT: 95.6 kg (Dosing) BMI: 38.78 General- A&Ox3, NAD, pleasant, cooperative HEENT- Normocephalic, PERRLA, EOMI, (-) d/c E/E/N/M; full neck ROM Cardiovascular- RRR, S1 & S2, (-) m/g/r/c, pulses equal bilaterally Pulmonary- CTA bilaterally, symmetrical excursion, (-) w/r/r Musculoskeletal- intact ROM, intact strength, intact gait Skin- intact without rashes/wounds/defect Neurovascular- intact/appropriate for stated age Additional Vitals No qualifying data available. Assessment/Plan Post-op pain METS: Greater than 4 ASA Physical Status Class: 2 S-MPM Class: 1 low risk for elective level major reconstructive foot and ankle procedure. This patient is a candidate for surgery at a same day surgery center. Further medical clearance from patient's primary care provider and/or specialists may be obtained based on risk stratification, exam findings, past medical history, and current medications. Problem List/Past Medical History Ongoing Allergic rhinitis Ankle pain, right Asthma Chronic obstructive pulmonary disease (COPD) Deafness in left ear Fibromyalgia History of endometrial cancer History of hepatitis C History of kidney stones HTN (hypertension) Hypothyroidism Osteoarthritis of multiple joints Right ankle instability Historical No qualifying data Procedure/Surgical History Cardiac catheterization Tonsillectomy Appendectomy BSO - Total abdominal hysterectomy and bilateral salpingo-oophorectomy Right fibula ORIF Colonoscopy Fusion of lumbar spine Medications Inpatient No active inpatient medications Home acetaminophen 650 mg oral tablet, extended release, 650 mg= 1 tabs, Oral, q8hr Albuterol (Eqv-Proventil HFA) 90 mcg/inh inhalation aerosol, 6 g, 0 Refill(s), INHALE 2 PUFFS EVERY4 HOURS NEEDED FOR WHEEZING OR SHORTNESS OF BREATH DME, See Instructions FLUoxetine 10 mg oral capsule, 90 EA, 0 Refill(s), TAKE 1 CAPSULE (10 MG TOTAL) BY MOUTH NIGHTLY. gabapentin 100 mg oral capsule, 180 EA, 0 Refill(s), TAKE 1 CAPSULE BY MOUTH EVERY MORNING AND AFTERNOON gabapentin 300 mg oral capsule, 90 EA, 0 Refill(s), TAKE 1 CAPSULE BY MOUTH EVERY DAY AT NIGHT levothyroxine 25 mcg (0.025 mg) oral tablet, 90 EA, 0 Refill(s), TAKE 1 TABLET (25 MCG TOTAL) BY MOUTH IN THE MORNING losartan 100 mg oral tablet, 90 EA, 0 Refill(s), TAKE 1 TABLET (100 MG TOTAL) BY MOUTH IN THE MORNING Lovenox 40 mg/0.4 mL injectable solution, 40 mg= 0.4 mL, Subcutaneous, Daily Metoprolol Tartrate 25 mg oral tablet, 180 EA, 0 Refill(s), TAKE 1 TABLET BY MOUTH IN THE MORNING AND BEFORE BEDTIME ondansetron 4 mg oral tablet, 4 mg= 1 tabs, Oral, q8hr, PRN oxyCODONE 5 mg oral tablet, 5 mg= 1 tabs, Oral, q6hr, PRN traMADol 50 mg oral tablet, 40 EA, 0 Refill(s), TAKE 1 TABLET BY MOUTH EVERY 6 HOURS NEEDED FOR PAIN traZODone 150 mg oral tablet, 90 EA, 0 Refill(s), TAKE 1 TABLET BY MOUTH EVERY DAY AT NIGHT Trelegy Ellipta 100 mcg-62.5 mcg-25 mcg/inh inhalation powder, 1 inh, Inhale, qAM V (more content not included)...[facility]03-07-2025 Note Chief Complaint Referral from Dr. Valentin for surgical discussion History of Present Illness Patient presents for painful right ankle and rearfoot which is aching and throbbing in nature and sometimes stinging and burning in recent months. Patient relates that this is most troublesome in shoe gear wear and when ambulating and weightbearing although sometimes without shoe gear as well. Patient denies recent trauma to the area, but does state a history of right ankle fracture in the past. She sustained a closed right ankle fracture after ground-level fall in 2020. This was treated at [facility]. Patient relates that they have tried [id number] pain relievers, padding, and modification of shoe gear as well as modification of activity levels to no avail. She states she had an MRI performed. States that the right ankle is painful and feels unstable at times. She has hardware on the outside of her right ankle. She states that this is also painful. She relates she sees a rn new graduate. She relates she has a history of smoking. Review of Systems Constitutional Head Nose Mouth Throat Cardio/Respiratory Hematologic Chills: No Headache: No Shortness of Breath: No History of DVT: No Fever: No Sore Throat: No Chest Pain: No History of Claudication: No Ear Pain: No Palpitation: No History of Aneurysm: No History of Gangrene: No Genitourinary Musculoskeletal Psychiatric Vascular Burning: No Muscle Weakness: Yes Anxiety: No Blood Disorder: No Pain: No Joint Pain: No Depression: No Numbness: No Gastrointestinal Dermatology Rheumatologic Problems: No Rash: No History of Rheumatic Arthritis: Yes Pain: No Pruritus: No History of Gout: No History of Lupus: No Physical Exam Vitals & Measurements HR: 91 (Peripheral) BP: 208/102 HT: 157 cm WT: 95.6 kg WT: 95.6 kg (Dosing) BMI: 38.78 Dermatologic: Skin has no open lesions or obvious dermatological findings Negative for overt rashes or irregular pigmented lesions. Skin turgor normal. Well-healed cicatrix noted to the right lateral ankle Neurological: Gross and epicritic sensation intact bilateral. Protective sensation intact as measured with [employer] Monofilament Gross motor intact bilateral. Achilles and Patellar reflexes within normal limits 2/4 bilateral, negative babinski, hallux downgoing. Negative tinels/valliex upon neural light percussion. Vascular: Pulses palpable +2/4 Dorsalis Pedis and Posterior Tibial arteries bilateral. Capillary fill time brisk, less than 3 seconds bilateral toes when leg elevated. Negative for significant edema in either lower extremity. Skin temp warm to cool proximal to distal bilateral. Orthopedic: Bony foot structure appears grossly rectus Extrinsic and intrinsic musculature of the foot are grossly normal with strengths of 5/5 all moversof the foot and ankle. Negative pain to passive or active range of motion bilateral and free of overt joint crepitation. Positive pain to direct palpation of the anterior ankle joint, medial ankle joint, lateral ankle joint, hardware over the lateral malleolus. Pain to palpation lateral ankle ligament complex. No pain to palpation along the posterior tibial tendon Achilles tendon or deltoid ligament complex. No pain w ith tib-fib squeeze test. No pain with stress eversion. No pain with stress abduction/pronation of the forefoot on the midfoot. No pain to palpation Lisfranc complex. No pain with attempted subtalar joint range of motion. Pain to palpation along the retromalleolar peroneal tendons. Decreased right ankle joint range of motion with no pain or crepitus on range of motion. Positive Sil[place]. Otherwise all other joints, ligaments, and tendons bilateral were negative on today's exam. Additional Vitals No qualifying data available. Assessment/Plan 1. Ankle impingement syndrome, right 2. Painful orthopaedic hardware 3. Right ankle instability 4. Right peroneal tendinosis 5. Smoking history 6. History of ankle fracture -Evaluation and Management with time spent with patient dedicated to discussion of pathogenesis andtreatment options for patient's problems including offloading, padding, taping, orthopedic boot, and long-term sequelae such as worsening of pain, deformity and options for surgery. Immobilization, Non weight bearing, Physical Therapy, and more all discussed. -Radiographs reviewed as above. 2 views right ankle 2 views right foot 2 views right calcaneal axial obtained interpreted reviewed discussed -Discussed conservative versus surgical intervention. Reviewed MRI. Discussed with patient. There is longitudinal split tear of the retromalleolar peroneus brevis tendon. It does appear that her fracture has united appropriately. She also has scarring surrounding her anterior talofibular ligament. Impingement noted the anterior ankle joint. Lengthy discussion with patient. Discussed conservative versus surgic (more content not included)...[facility]02-27-2025 History of Present illness Narrative* Jairo Daley APRN-DATA MANAGEMENT SPECIALIST - 12/16/2024 2:00 PM EST Images from the original note were not included. [address] [facility] [place] [address] SUBJECTIVE: Patient ID: Robyn Thorpe is a 69 y.o. female. Chief Complaint Patient presents with cv Presents for follow up Was seen in October for elevated blood pressure. Losartan was increased to 100 mg oral daily. She is also taking metoprolol and aldactone. States blood pressures have been 130's systolic and 80's diastolic. Improvement. States multiple joint pain and fibromyalgia has been aching her. Her knees havealso been hurting her. She request refill of tramadol today. States she stopped fluoxetine several months ago. She does not feel she needs this medication anymore. The following portions of the patient's history were reviewed and updated as appropriate: allergies, current medications, past family history, past medical history, past social history, past surgicalhistory and problem list. Past Surgical History: Procedure Laterality Date APPENDECTOMY HYSTERECTOMY ORTHOPEDIC SURGERY Right Shattered ankle, has hardware in still. TONSILLECTOMY Past Medical History: Diagnosis Date Allergic Asthma Back pain Cancer ([facility]) Chronic kidney disease Disease of [...] for menstrual problem and pelvic pain. Musculoskeletal: Positive for arthralgias. Skin: Negative. Allergic/Immunologic: Negative. Neurological: Negative for syncope and facial asymmetry. Hematological: Does not bruise/bleed easily. Psychiatric/Behavioral: Negative. PHYSICAL EXAMINATION: Vitals: 12/16/24 1334 BP: 138/80 BP Site: Left Arm BP Postition: Sitting BP CUFF SIZE: L (13-17 inches) Pulse: 80 Resp: 20 Temp: 36.4 C (97.6 F) TempSrc: Oral SpO2: 98% Weight: 96.5 kg (212 lb 11.2 oz) Height: 160 cm (5' 2.99 ) Patient noted to have elevated BMI and the following intervention(s) were applied: encouragement toexercise. Physical Exam Vitals and nursing note reviewed. [...] normal. ASSESSMENT/PLAN: Robyn was seen today for cv. Diagnoses and all orders for this visit: Benign essential HTN - metoprolol tartrate (LOPRESSOR) 25 mg tablet; TAKE 1 TABLET IN THE MORNING AND 1 TABLET BEFORE BEDTIME Strength: 25 mg - spironolactone (ALDACTONE) 25 mg tablet; Take 1 tablet (25 mg total) by mouth in the morning. Arthritis, multiple joint involvement - diclofenac (VOLTAREN) [...] 6 (six) hours as needed for pain. Fibromyalgia - gabapentin (NEURONTIN) 100 mg capsule; TAKE 1 CAPSULE BY MOUTH EVERY MORNING AND AFTERNOON - gabapentin (NEURONTIN) 300 mg capsule; Take 1 capsule (300 mg total) by mouth nightly. - traMADoL (ULTRAM) 50 mg tablet; Take 1 tablet (50 mg total) by mouth every 6 (six) hours as needed for pain. Acquired hypothyroidism - levothyroxine (SYNTHROID, LEVOTHROID) 25 MCG tablet; Take 1 tablet (25 mcg total) by mouth in themorning. Primary insomnia - traZODone (DESYREL) 150 mg tablet; Take 1 tablet (150 mg total) by mouth nightly. Chronic bronchitis with emphysema ([facility]) - TRELEGY ELLIPTA 100-62.5-25 mcg blister with device; INHALE 1 PUFF BY MOUTH EVERYDAY *RINSE MOUTHAFTER USE* Strength: 100-62.5-25 mcg 1.Acquired hypothyroidism Continue levothyroxine 25 mcg oral daily 2. Chronic pain Fibromyalgia Experiencing increased pain of joints with barometer / weather changes. She has been working outdoors more. Bilateral knee arthritis. Reorder diclofenac 75 mg oral twice daily Tramadol 50 mg oral 50 mg oral every 8 hours PRN pain. 3. Anxiety and depression Depression: Not at risk (12/16/2024) PHQ-2 PHQ-2 Score: 0 Patient stopped fluoxetine several months ago. She does not feel she needs to take anymore. Reportsher moods are stable. 4. HTN Better controlled 138/80. Was 160/100 at last visit in October Continue losartan 100 mg oral daily. Metoprolol tartrate 25 mg oral daily. Spironolactone 25 mg oral daily 5. COPD No current exacerbation Is monitored by pulmonology, Dr. Samsa. 6. Insomnia States she is sleeping well. Reorder trazodone 150 mg oral daily Patient is a current smoker, smoking cessation discussed today in office. He/She is not interested at this time Body mass index is 37.69 kg/m . Patient noted to have elevated BMI and the following intervention(s) were applied: Discussed current weight today. Consider healthy food choices, portion control. Avoid sugary beverages and high concentrated sweets. Routine exercise regimen encouraged. The OARRS/MAPPS database was reviewed today and found to be appropriate. No indication of medication diversion, or non compliance. ALL QUESTIONS ANSWERED Total time spent was 25 minutes: Preparing to see the patient (e.g., review of tests) Obtaining and/or reviewing separately obtained history Performing a medically appropriate examination and/or evaluation Counseling and educating the patient/family/caregiver Ordering medications, tests, or procedures Follow-up: 5 months Fibromyalgia, HTN, hypothyroidism CARLITOS Haas 12/16/24 1422 [facility]* Diagnosis Onset Date Resolution Status Admit Date Essential (primary) hypertension acute December 15, 025 2:55pm Tobacco use disorder, continuous acute December 15 025 2:55pm Left ventricular hypertrophy due to hypertensive disease noneactive Febr uary 2024 2:55pm Atypical chest pain noneactive Febru juan 2024 2:55pm [facility] Work Phone: [phone] 134-634101-15-2025 History of Present illness Narrative* CARLITOS Haas - 11/03/2024 1:00 PM EST Images from the original note were not included. [address] [facility] [address] SUBJECTIVE: Patient ID: Robyn Thorpe [...] and family history. Past treatments include beta blockersand calcium channel blockers. The current treatment provides moderate improvement. The following portions of the patient's history were reviewed and updated as appropriate: allergies, current medications, past family history, past medical history, past social history, past surgicalhistory and problem list. Past Surgical History: Procedure Laterality Date APPENDECTOMY HYSTERECTOMY ORTHOPEDIC SURGERY Right Shattered ankle, has hardware in still. TONSILLECTOMY Past Medical History: Diagnosis Date Allergic Asthma Back pain Cancer ([facility] [facility]) Chronic kidney disease Disease of thyroid gland [...] and the following intervention(s) were applied: encouragement toexercise. Physical Exam Vitals and nursing note reviewed. [...] CARLITOS Haas 11/03/24 1326 documented in this encounterKettering Health [facility]01-15-2025 Instructions* Patient Instructions* CARLITOS Haas - 11/03/2024 1:00 PM EST Are You Ready To Kick The Habit? Free Tobacco Cessation Resources [facility] Services [facility] Tobacco Treatment Centers provide all employees with free tobacco cessation services that include: Counseling to understand nicotine addiction Education about medications that can help you successfully quit Assistance with developing a plan to quit Call to set up an individual appointment or find out when group classes will be held: [facility]: [phone] [facility]: [phone] [facility]: [phone] [facility]: [phone] Quit Smoking Action Plan and Resources [facility] offers an eight-week, online smoking cessation plan to all [facility] employees, regardless of whether [place] is your medical insurance provider. Go to [email or web address]/[email or web address] and click the Health Risk Assessment and Resources link to get started. In the Tqapm0Ddiomj menu, click Action Plans instead of Health Risk Assessment to access the Quit Smoking Action Plan. Additional smoking cessation resources are also available to all [facility] employees on the Ixwiy0Oskpaf web page at www.flck.me/quitsmoking. [place] Tobacco Cessation Program If [place] is your medical insurance provider, there are more free resources available to you, including: No copays or deductibles on local tobacco cessation counseling services to help you quit Prescription assistance for tobacco cessation medications to help you quit For details about the tobacco cessation program available to [employer] members, go to www.Fishki.Ganeselo.com (Search: Tobacco Cessation Program). [place] Tobacco Quit Line 2-918-BXVI-NOW ( ) is a toll-free, telephonic service that helps [place] residents quit smoking and using tobacco. It is staffed by experts who tailor a quit plan for you and provide you with advice. [place] Tobacco Quit Line 6-785-XPPX-NOW ( ) is a toll-free, telephonic service that helps [place] residents quit smoking and using tobacco. It is staffed by experts who tailor a quit plan for you and provide you with advice. Two weeks of nicotine replacement therapy may be provided at no charge, if needed. Additional Resources These national organizations also offer free information and resources to help you quit tobacco: [place] [employer]--www.cancer.org/healthy/stayawayfromtobacco [place] Heart Association--www.heart.org (Search: Quit Smoking) Centers for Disease Control and Prevention--www.cdc.gov/tobacco [place] Lung Association--www.lungusa.org * Attachments The following attachments cannot be sent through Care Everywhere. * Diet and health (Kyrgyz) documented in this encounterSt Johnsbury HospitaliTraff Technology [id number] Miscellaneous Notes* Telephone Encounter - Isidra Alexis CMA - 10/21/2024 12:10 PM EST Pt called stated that her BP has been 200s over 100s and needs her meds changed its been like this for a week in a half * Telephone Encounter - CARLITOS Haas - 10/21/2024 12:10 PM EST She will need an appointment for further evaluation * Telephone Encounter - Isidra Alexis CMA - 10/21/2024 12:10 PM EST Can someone finagale this pls * Telephone Encounter - Nat Vivar - 10/21/2024 12:10 PM EST Whenever first available is, can be 20 min * Telephone Encounter - Isidra Alexis CMA - 10/21/2024 12:10 PM EST I can't find anything till the , I would think she needs to come in sooner if possible you guys are better at working the schedule * Telephone Encounter - Nat Vivar - 10/21/2024 12:10 PM EST If that's the first 20 minute we have then that's all. I can't move appointments to accommodate * Telephone Encounter - Isidra Alexis CMA - 10/21/2024 12:10 PM EST Pt is scheduled * Telephone Encounter - Isidra Alexis CMA - 10/21/2024 12:10 PM EST Pt called requesting a referral to a new rn new graduate in [place] Their name is [facility] Cardiology Phone number is [phone] Fax is [phone] documented in this encounterKettering [facility]01-02-2025 Telephone encounter Note* Telephone Encounter - Isidra Alexis CMA - 10/21/2024 12:10 PM EST Pt called stated that her BP has been 200s over 100s and needs her meds changed its been like this for a week in a half [facility]01-02-20[facility] Telephone encounter Note* Telephone Encounter - CARLITOS Haas - 10/21/2024 12:10 PM EST She will need an appointment for further evaluation [facility]01-02-2025 Telephone encounter Note* Telephone Encounter - Isidra Alexis CMA - 10/21/2024 12:10 PM EST Can someone finagale this pls [facility]01-02-2025 Telephone encounter Note* Telephone Encounter - Nat Vivar - 10/21/2024 12:10 PM EST Whenever first available is, can be 20 min [facility]01-02-2025 Telephone encounter Note* Telephone Encounter - Isidra Alexis CMA - 10/21/2024 12:10 PM EST I can't find anything till the , I would think she needs to come in sooner if possible you guys are better at working the schedule [facility]01-02-2025 Telephone encounter Note* Telephone Encounter - Nat Vivar - 10/21/2024 12:10 PM EST If that's the first 20 minute we have then that's all. I can't move appointments to accommodate [facility]01-02-2025 Telephone encounter Note* Telephone Encounter - Isidra Alexis CMA - 10/21/2024 12:10 PM EST Pt is scheduled [employer]01-02-2025 Telephone encounter Note* Telephone Encounter - Isidra Alexis CMA - 10/21/2024 12:10 PM EST Pt called requesting a referral to a new rn new graduate in [place] Their name is [facility] Phone number is [phone] Fax is [phone] [employer]11-25-2024 History of Present illness Narrative* Jairo Daley APRN-TESS - 09/13/2024 2:40 PM EST Subjective SUBJECTIVE: Patient ID: Robyn Thorpe is a 68 y.o. female who presents for a Medicare Annual Wellness exam. Presents for annual wellness. She stays active. Resides in her own home with significant other. Drives. Does not use assistive gait devices for ambulation. Is a smoker. CT low dose screening is done through [facility] yearly ([facility]) States she has been experiencing wheezing and coughing for two weeks. Annual Exam Associated symptoms include coughing. Pertinent negatives include no chest pain, chills or fever. The following portions of the patient's history were reviewed and updated as appropriate: allergies, current medications, past family history, past medical history, past social history, past surgicalhistory and problem list. Past Surgical History: Procedure Laterality Date APPENDECTOMY HYSTERECTOMY ORTHOPEDIC SURGERY Right Shattered ankle, has hardware in still. TONSILLECTOMY Past Medical History: Diagnosis Date Allergic Asthma Back pain Cancer ([facility]) Chronic kidney disease Disease of thyroid gland [...] Do you have a durable power of field property loss specialist?: (!) No Patient educated today about benefits of having a Living Will and DPOA. Information packet providedtoday. Cognitive Screening Do you have trouble remembering [...] and the following intervention(s) were applied: encouragement toexercise. Relevant Labs: Lab Results Component Value Date [...] Medicare annual wellness visit, subsequent COPD exacerbation ([facility]) - azithromycin (ZITHROMAX) 250 mg tablet; Take 2 tablets the first day, then 1 tablet daily for 4 days. - predniSONE (DELTASONE) 20 mg tablet; Take 1 tablet (20 mg total) by mouth See Admin Instructions.1 tab 2x daily x3 days, 1 tab [...] Patient Instructions on file for this visit. CARLITOS Haas 09/13/24 1510 documented in this encounterBet[facility] Hospital [employer] [id number] History of Present illness Narrative* CARLITOS Haas - 08/10/2024 8:00 AM EDT Images from the original note were not included. [address] [place] [address] SUBJECTIVE: Patient ID: Robyn Thorpe is a 68 y.o. female. Chief Complaint Patient presents with Hypothyroidism fibro Presents for follow up States multiple joint pain and fibromyalgia has been aching her. She relays my knees are bone on bone . She is planning having knee replacement in the near future. She doesn't know which knee she isdoing first. Pain This is a chronic problem. The current episode started more than 1 year ago. The problem occurs daily. The problem has been waxing and waning. Associated symptoms include arthralgias, myalgias and weakness. Pertinent negatives include no chills, fatigue, fever, headaches, joint swelling, neck pain,rash, sore throat, swollen glands, vertigo, visual change or vomiting. Nothing aggravates the symptoms. She has tried rest, oral narcotics, position changes, sleep, walking, relaxation, NSAIDs, heat,eating, ice, acetaminophen, immobilization and lying down for [...] past medical history, past social history, past surgicalhistory and problem list. Past Surgical History: Procedure Laterality Date APPENDECTOMY HYSTERECTOMY ORTHOPEDIC SURGERY Right Shattered ankle, has hardware in still. TONSILLECTOMY Past Medical History: Diagnosis Date Allergic Asthma Back pain Cancer ([facility]) Chronic kidney disease Disease of thyroid gland [...] and the following intervention(s) were applied: encouragement toexercise. Physical Exam Vitals and nursing note reviewed. [...] tablet (25 mcg total) by mouth in themorning. - Comprehensive metabolic panel; Future - CBC auto differential; Future - TSH; Future Benign essential HTN - metoprolol tartrate (LOPRESSOR) 25 mg tablet; TAKE 1 TABLET IN THE MORNING AND 1 TABLET BEFORE BEDTIME Strength: 25 mg Primary insomnia - traZODone (DESYREL) 150 mg tablet; Take 1 tablet (150 mg total) by mouth nightly. Chronic bronchitis with emphysema ([facility]) - TRELEGY ELLIPTA 100-62.5-25 mcg blister with device; INHALE 1 PUFF BY MOUTH EVERYDAY *RINSE MOUTHAFTER USE* Strength: 100-62.5-25 mcg Mixed hyperlipidemia - [...] 25 mg oral daily. Spironolactone 25 mg oraldaily 4. COPD No current exacerbation Is monitored [...] CARLITOS Haas 08/10/24 0910 documented in this encounterKettering Health [facility]10-22-2024 Instructions* Patient Instructions* CARLITOS Haas - 08/10/2024 8:00 AM EDT Are You Ready To Kick The Habit? Free Tobacco Cessation Resources [facility] Services [facility] Tobacco Treatment Centers provide all employees with free tobacco cessation services that include: Counseling to understand nicotine addiction Education about medications that can help you successfully quit Assistance with developing a plan to quit Call to set up an individual appointment or find out when group classes will be held: [facility]: [phone] [facility]: [phone] [facility]: [phone] [facility]: [phone] Quit Smoking Action Plan and Resources [facility] offers an eight-week, online smoking cessation plan to all [facility] employees, regardless of whether [place] is your medical insurance provider. Go to [email or web address]/[email or web address] and click the Health Risk Assessment and Resources link to get started. In the Sfiyt2Fyyqeb menu, click Action Plans instead of Health Risk Assessment to access the Quit Smoking Action Plan. Additional smoking cessation resources are also available to all [facility] employees on the Zvcrf7Obmpel web page at www.[email or web address].com/quitsmoking. [place] Tobacco Cessation Program If [place] is your medical insurance provider, there are more free resources available to you, including: No copays or deductibles on local tobacco cessation counseling services to help you quit Prescription assistance for tobacco cessation medications to help you quit For details about the tobacco cessation program available to [employer] members, go to www.Fishki.com (Search: Tobacco Cessation Program). [place] Tobacco Quit Line 2-216-VDUN-NOW ( ) is a toll-free, telephonic service that helps [place] residents quit smoking and using tobacco. It is staffed by experts who tailor a quit plan for you and provide you with advice. [place] Tobacco Quit Line 7-591-FJNX-NOW ( ) is a toll-free, telephonic service that helps [place] residents quit smoking and using tobacco. It is staffed by experts who tailor a quit plan for you and provide you with advice. Two weeks of nicotine replacement therapy may be provided at no charge, if needed. Additional Resources These national organizations also offer free information and resources to help you quit tobacco: [place] Cancer Society--www.cancer.org/healthy/stayawayfromtobacco [place] Heart Association--www.heart.org (Search: Quit Smoking) Centers for Disease Control and Prevention--www.cdc.gov/tobacco [place] Lung Association--www.lungusa.org * Attachments The following attachments cannot be sent through Care Everywhere. * Hypothyroidism (underactive thyroid) (Kyrgyz) documented in this encounterKettering Health [facility]10-02-[address] [facility]09-19-2024 History of Present illness Narrative * Cristobal Owens DPM - 07/08/2024 11:50 AM EDT Patient: Robyn Thorpe : 1955 PCP: No [...] her right wrist as well as hit herhead and was in the hospital for period [...] History: Diagnosis Date Allergies Anxiety Arthritis Asthma ([facility]) Cervical cancer ([facility] COPD (chronic obstructive pulmonary disease) ([facility] Depression ([facility]) History of medical problems knee scraping for knee replacement HTN (hypertension) ([facility]) Kidney disease Medications: Current Outpatient [...] HOURS NEEDED FOR PAIN FOR UP TO 5DAYS., Disp: , Rfl: traZODone (Desyrel) 150 MG [...] Insecurity: No Food Insecurity (04/12/2024) Received from [facility] Hunger Screening Within the past 12 months [...] Partner Violence: Unknown (12/11/2023) [facility] [place] [facility] Fear of Current [...] nails 1 through 10 MRI right ankle [facility] demonstrates findings of slight thickening of the Achilles tendonwith peroneal brevis longitudinal split tendon tear near [...] Patient may continue with conservative treatments including [id number] anti- inflammatories and other treatments suggested today. Patient may want to be s cheduled for surgical intervention in the near future. Discussed right peroneal tendon repair and patient patient and may consider once all other medical issues are done with Cristobal Owens DPM documented in this encounterPemiscot Memorial Health [id number] Miscellaneous Notes* Telephone Encounter - Nat Vivar - 05/13/2024 12:33 PM EDT Patient called and she had a really bad fall down the stairs. She went to the ER and had XR and everyhing but she is now having stomach pains, lower instenial pain, an a really bad cough. She was wondering if you could send XR orders. I think she needs to be seen but not sure where * Telephone Encounter - CARLITOS Haas - 05/13/2024 12:33 PM EDT Her fall was several weeks ago. Was hospitalized. I recommend ER or urgent care visit. * Telephone Encounter - Nat Vivar - 05/13/2024 12:33 PM EDT Patient notified and is going to the urgent care documented in this encounterKettering Health [facility]07-25-2024 Telephone encounter Note* Telephone Encounter - Natbuffy Vivar - 05/13/2024 12:33 PM EDT Patient called and she had a really bad fall down the stairs. She went to the ER and had XR and everyhing but she is now having stomach pains, lower instenial pain, an a really bad cough. She was wondering if you could send XR orders. I think she needs to be seen but not sure where [facility]07-25-2024 Telephone encounter Note* Telephone Encounter - CARLITOS Haas - 05/13/2024 12:33 PM EDT Her fall was several weeks ago. Was hospitalized. I recommend ER or urgent care visit. [facility]07-25-2024 Telephone encounter Note* Telephone Encounter - Nat Vivar - 05/13/2024 12:33 PM EDT Patient notified and is going to the urgent care [facility]06-24-20[facility] History of Present illness Narrative* Jairo Daley, ELECTRIC POWERLINE EXAMINER-DATA MANAGEMENT SPECIALIST - 04/12/2024 9:40 AM EDT Images from the original note were not included[place] [id number] SUBJECTIVE: Patient ID: Robyn Thorpe is a 68 y.o. female. Chief Complaint Patient presents with Hypertension Depression Fibromyalgia Presents for follow up She would like a referral for screening colonoscopy. States she has not had baseline screening. Sheis requesting Dr. Hagan, GI. Is seen yearly by cardiology for history of mild mitral valve history. She is also monitored by Dr. Spaulding, pulmonology, COPD. Denies current exacerbation of COPD at this time. She is a smoker, 1/2 PPD Pain This is a chronic problem. The current episode started more than 1 year ago. The problem occurs daily. The problem has been waxing and waning. Associated symptoms include arthralgias, myalgias and weakness. Pertinent negatives include no chills, fatigue, fever, headaches, joint swelling, neck pain,rash, sore throat, swollen glands, vertigo, visual change or vomiting. Nothing aggravates the symptoms. She has tried rest, oral narcotics, position changes, sleep, walking, relaxation, NSAIDs, heat,eating, ice, acetaminophen, immobilization and lying down for [...] past medical history, past social history, past surgicalhistory and problem list. The following portions of the patient's history were reviewed and updated as appropriate: allergies, current medications, past family history, past medical history, past social history, past surgicalhistory and problem list. Past Surgical History: Procedure Laterality Date APPENDECTOMY HYSTERECTOMY ORTHOPEDIC SURGERY Right Shattered ankle, has hardware in still. TONSILLECTOMY Past Medical History: Diagnosis Date Allergic Asthma Back pain Cancer ([facility]) Chronic kidney disease Disease of thyroid gland Hypertension Varicella Immunization History Administered Date(s) Administered COVID-19, mRNA, LNP-S, PF, 30mcg/0.3mL Dose 06/23/2021, 07/14/2021 Covid-19, Mrna, Lnp-s, Bivalent, Pf, 30mcg/0.3 ml 08/14/2022 Covid-19, Mrna, Lnp-s, Pf, 30 Mcg/0.3 Ml Dose, Joce-sucrose 01/13/2022 Influenza Vaccine, Quadrivalent, Adjuvanted 07/30/2022, 08/20/2023 Pneumococcal Conjugate 10/02/2022 Pneumococcal Conjugate 20-valent 10/02/2022 REVIEW OF SYSTEMS: Review of Systems Constitutional: Negative for chills and fever. HENT: Negative. Eyes: Negative for visual disturbance. Respiratory: Negative for chest tightness. Gastrointestinal: Negative. Endocrine: Negative. Genitourinary: Negative for menstrual problem and pelvic pain. Musculoskeletal: Positive for arthralgias, back pain and myalgias. Skin: Negative. Allergic/Immunologic: Negative. Neurological: Negative for syncope and facial asymmetry. Hematological: Does not bruise/bleed easily. Psychiatric/Behavioral: Negative. PHYSICAL EXAMINATION: Vitals: 04/12/24 0924 BP: 138/80 BP Site: Left Arm BP Postition: Sitting Pulse: 64 Resp: 18 Temp: 36.6 C (97.8 F) TempSrc: Oral SpO2: 95% Weight: 95.7 kg (210 lb 14.4 oz) Height: 160 cm (5' 3 ) Patient noted to have elevated BMI and the following intervention(s) were applied: encouragement toexercise. Physical Exam Vitals and nursing note reviewed. [...] There is no abdominal tenderness. Musculoskeletal: General: Tenderness present. Normal range of motion. Cervical back: Normal range of motion and neck supple. Lumbar back: Tenderness and bony tenderness present. Negative right straight leg raise test and negative left straight leg raise test. Lymphadenopathy: Cervical: No cervical adenopathy. Skin: General: Skin is warm and dry. Neurological: Mental Status: She is alert and oriented to person, place, and time. Deep Tendon Reflexes: Reflexes are normal and symmetric. Psychiatric: Mood and Affect: Mood normal. Behavior: Behavior normal. Thought Content: Thought content normal. Judgment: Judgment normal. ASSESSMENT/PLAN: Robyn was seen today for hypertension, depression and fibromyalgia. Diagnoses and all orders for this visit: Benign essential HTN - losartan (COZAAR) 25 mg tablet; Take 1 tablet (25 mg total) by mouth in the morning. - metoprolol tartrate (LOPRESSOR) 25 mg tablet; TAKE 1 TABLET IN THE MORNING AND 1 TABLET BEFORE BEDTIME Strength: 25 mg - spironolactone (ALDACTONE) 25 mg tablet; Take 1 tablet (25 mg total) by mouth in the morning. Anxiety and depression - FLUoxetine (PROzac) 10 mg capsule; Take 1 capsule (10 mg total) by mouth nightly. Arthritis, multiple joint involvement - diclofenac (VOLTAREN) 75 mg EC tablet; Take 1 tablet (75 mg total) by mouth in the morning and 1 tablet (75 mg total) before bedtime. TAKE 1 TABLET BY MOUTH IN THE MORNING AND 1 TABLET BEFORE BEDTIME. For pain.. - traMADoL (ULTRAM) 50 mg tablet; Take 1 tablet (50 mg total) by mouth every 8 (eight) hours as needed for pain for up to 7 days. Fibromyalgia - gabapentin (NEURONTIN) 100 mg capsule; TAKE 1 CAPSULE BY MOUTH EVERY MORNING AND AFTERNOON Acquired hypothyroidism - levothyroxine (SYNTHROID, LEVOTHROID) 25 MCG tablet; Take 1 tablet (25 mcg total) by mouth in themorning. Primary insomnia - traZODone (DESYREL) 150 mg tablet; Take 1 tablet (150 mg total) by mouth nightly. Chronic bronchitis with emphysema (CMS-HCC) - TRELEGY ELLIPTA 100-62.5-25 mcg blister with device; INHALE 1 PUFF BY MOUTH EVERYDAY *RINSE MOUTHAFTER USE* Strength: 100-62.5-25 mcg Special screening for malignant neoplasm of colon - Ambulatory referral to Gastroenterology (Non-[facility]); Future Colonoscopy screening discussed today. Risk and benefits of procedure explained. Patient is agreeable to pursue. The OARRS/MAPPS database was reviewed today and found to be appropriate. No indication of medication diversion, or non compliance. 1.Acquired hypothyroidism Check thyroid panel Continue levothyroxine 50 mcg oral daily 2. Chronic pain Fibromyalgia Experiencing increased pain of joints with barometer / weather changes. Reorder diclofenac Tramadol 50 mg oral 50 mg oral every 8 hours PRN pain. #20 tablets . No refills. 3. Anxiety and depression Depression: Not at risk (04/12/2024) PHQ-2 PHQ-2 Score: 0 Continue fluoxetine 10 mg oral daily 3. HTN Controlled Continue losartan 10 mg oral daily. Metoprolol tartrate 25 mg oral daily. Spironolactone 25 mg oraldaily 4. COPD No current exacerbation Is monitored by pulmonology, Dr. Spaulding. 5. Insomnia Doing well with sleeping Reorder trazodone 150 mg oral daily Patient is a current smoker, smoking cessation discussed today in office. He/She is not interested at this time ALL QUESTIONS ANSWERED Total time spent was 30 minutes: Preparing to see the patient (e.g., review of tests) Obtaining and/or reviewing separately obtained history Performing a medically appropriate examination and/or evaluation Counseling and educating the patient/family/caregiver Ordering medications, tests, or procedures Referring and communicating with other health career services representative (not separately reported) Follow-up: 4 months Fasting labs. Hypothyroid, fibromyalgia CARLITOS Haas 04/12/24 1052 documented in this encounter[facility]-28-[facility]24 Miscellaneous Notes* Telephone Encounter - Isidra Alexis CMA - 01/15/2024 12:05 PM EDT They went to the wrong pharmacy documented in this encounterK[facility]03-28-2024 Telephone encounter Note* Telephone Encounter - Isidra Alexis CMA - 01/15/2024 12:05 PM EDT They went to the wrong pharmacy [facility] History of Present illness Narrative* CARLITOS Haas - 12/11/2023 9:40 AM EST Images from the original note were not included. [address] [facility] [address] SUBJECTIVE: Patient ID: Robyn Thorpe is a 68 y.o. female. Chief Complaint Patient presents with Hypertension Presents for routine follow up Is seen yearly by cardiology for history of mild mitral valve history. She is also monitored by , pulmonology, COPD. Denies current exacerbation of COPD at this time. She is a smoker, 1/2 PPD Pain This is a chronic problem. The current episode started more than 1 year ago. The problem occurs daily. The problem has been waxing and waning. Associated symptoms include arthralgias, myalgias and weakness. Pertinent negatives include no chills, fatigue, fever, headaches, joint swelling, neck pain,rash, sore throat, swollen glands, vertigo, visual change or vomiting. Nothing aggravates the symptoms. She has tried rest, oral narcotics, position changes, sleep, walking, relaxation, NSAIDs, heat,eating, ice, acetaminophen, immobilization and lying down for [...] past medical history, past social history, past surgicalhistory and problem list. Past Surgical History: Procedure Laterality Date APPENDECTOMY HYSTERECTOMY ORTHOPEDIC SURGERY Right Shattered ankle, has hardware in still. TONSILLECTOMY Past Medical History: Diagnosis Date Allergic Asthma Back pain Cancer ([facility]) Chronic kidney disease Disease of thyroid gland Hypertension Varicella Immunization History Administered Date(s) Administered COVID-19, mRNA, LNP-S, PF, 30mcg/0.3mL Dose 06/23/2021, 07/14/2021 Covid-19, Mrna, Lnp-s, Bivalent, Pf, 30mcg/0.3 ml 08/14/2022 Covid-19, Mrna, Lnp-s, Pf, 30 Mcg/0.3 Ml Dose, Joec-sucrose 01/13/2022 Influenza Vaccine, Quadrivalent, Adjuvanted 07/30/2022, 08/20/2023 Pneumococcal Conjugate 10/02/2022 Pneumococcal Conjugate 20-valent 10/02/2022 REVIEW OF SYSTEMS: Review of Systems Constitutional: Negative for chills and fever. HENT: Negative. Eyes: Negative for visual disturbance. Respiratory: Negative for chest tightness and shortness of breath. Cardiovascular: Negative for chest pain and palpitations. Gastrointestinal: Negative. Endocrine: Negative. Genitourinary: Negative for menstrual problem and pelvic pain. Musculoskeletal: Positive for arthralgias and myalgias. Skin: Negative. Allergic/Immunologic: Negative. Neurological: Negative for syncope and facial asymmetry. Hematological: Does not bruise/bleed easily. Psychiatric/Behavioral: Negative. PHYSICAL EXAMINATION: Vitals: 12/11/23 0940 BP: 150/90 BP Site: Left Arm BP Postition: Sitting Pulse: 64 Temp: 36.7 C (98 F) TempSrc: Tympanic SpO2: 93% Weight: 93.7 kg (206 lb 9.6 oz) Height: 160 cm (5' 3 ) Patient noted to have elevated BMI and the following intervention(s) were applied: encouragement toexercise. Physical Exam Vitals and nursing note reviewed. [...] Diagnoses and all orders for this visit: Acquired hypothyroidism - Thyroid profile includes TSH FT4; Future Panlobular emphysema (CMS-HCC) Obesity, morbid (CMS-HCC) Need for hepatitis C screening test - Hepatitis C(HCV) Ab w/ Reflex to PCR; Future Arthritis, multiple joint involvement - diclofenac (VOLTAREN) 75 mg EC tablet; Take 1 tablet (75 mg total) by mouth in the morning and 1 tablet (75 mg total) before bedtime. TAKE 1 TABLET BY MOUTH IN THE MORNING AND 1 TABLET BEFORE BEDTIME. For pain.. - traMADoL (ULTRAM) 50 mg tablet; Take 1 tablet (50 mg total) by mouth every 8 (eight) hours as needed for pain for up to 10 days. Anxiety and depression - FLUoxetine (PROzac) 10 mg capsule; Take 1 capsule (10 mg total) by mouth nightly. Fibromyalgia - gabapentin (NEURONTIN) 100 mg capsule; TAKE 1 CAPSULE BY MOUTH EVERY MORNING AND AFTERNOON Strength: 100 mg - gabapentin (NEURONTIN) 300 mg capsule; Take 1 capsule (300 mg total) by mouth nightly. Benign essential HTN - metoprolol tartrate (LOPRESSOR) 25 mg tablet; TAKE 1 TABLET IN THE MORNING AND 1 TABLET BEFORE BEDTIME Strength: 25 mg Acquired hypothyroidism Check thyroid panel Continue levothyroxine 50 mcg oral daily 2. Chronic pain Fibromyalgia Experiencing increased pain of joints with barometer / weather changes. Reorder diclofenac Tramadol 50 mg oral 50 mg oral every 8 hours PRN pain. #20 tablets . No refills. 3. Anxiety and depression Depression: Not at risk (12/11/2023) PHQ-2 PHQ-2 Score: 0 Continue fluoxetine 10 mg oral daily 3. HTN Controlled Continue losartan 10 mg oral daily. Metoprolol tartrate 25 mg oral daily 4. COPD No current exacerbation Is monitored by pulmonology, Dr. Spaulding. The OARRS/MAPPS database was reviewed today and found to be appropriate. No indication of medication diversion, or non compliance. ALL QUESTIONS ANSWERED Total time spent was 30 minutes: Preparing to see the patient (e.g., review of tests) Obtaining and/or reviewing separately obtained history Performing a medically appropriate examination and/or evaluation Counseling and educating the patient/family/caregiver Ordering medications, tests, or procedures Follow-up: 4 months CARLITOS Haas 12/15/23 1730 documented in this encounterK[facility]02-15-2024 History of Present illness Narrative* Cristobal Owens, DPKolby - 12/04/2023 4:00 PM EST Patient: Robyn Cabrera Ila : 1955 PCP: [...] History: Diagnosis Date Allergies Anxiety Arthritis Asthma (CMS/HCC) Cervical cancer ([facility]) COPD (chronic obstructive pulmonary disease) ([facility]) Depression ([facility]) History of medical problems knee scraping for knee replacement HTN (hypertension) ([facility]) Kidney disease Medications: Current Outpatient [...] HOURS NEEDED FOR PAIN FOR UP TO 5DAYS., Disp: , Rfl: traZODone (Desyrel) 150 MG [...] joint capsule and synovium under US guidance withvisualization of injected fluid into area of concern per imaging. Injection consisted of a 2:1 mixture of xylocaine 2%plain and kenalog 10 for a total of 3ccs. Informed pt of risks and benefits of procedure including infection,damage or rupture to soft tissuestructures and steroid flare. Pt understood and consented. This is the patients 1st injection Reviewed ultrasound today with patient Cristobal Owens DPM documented in this encounterPemiscot Memorial Health [id number] [facility] Chief Complaint: Patient here [...] mouth in the morning., Disp: , Rfl: wukyizjnjvf-vzchwoeyw-bmjwxxey 100-62.5-25 mcg blister with device, INHALE 1 [...] normal in s (more content not included)... [facility]01-29-2024 Miscellaneous Notes* Telephone Encounter - Hilario Hurst CMA - 11/17/2023 8:45 AM EST Patient called into office requesting Referral Tarun THOMAS for podiatry in [place] * Telephone Encounter - CARLITOS Haas - 11/17/2023 8:45 AM EST I do need a reason (diagnosis is required) to why she wants a referral. * Telephone Encounter - Hilario Hurst CMA - 11/17/2023 8:45 AM EST Patient would like her toe nails trimmed, she stated that her hand strength isn't there to cut themherself anymore. * Telephone Encounter - CARLITOS Haas - 11/17/2023 8:45 AM EST done documented in this encounterK[facility]01-29-2024 Telephone encounter Note* Telephone Encounter - Hilario Hurst CMA - 11/17/2023 8:45 AM EST Patient called into office requesting Referral Tarun Brown [facility] for podiatry in [place] [facility] [employer] [id number] Telephone encounter Note* Telephone Encounter - CARLITOS Haas - 11/17/2023 8:45 AM EST I do need a reason (diagnosis is required) to why she wants a referral. [facility] [employer] [id number] Telephone encounter Note* Telephone Encounter - Hilario Hurst CMA - 11/17/2023 8:45 AM EST Patient would like her toe nails trimmed, she stated that her hand strength isn't there to cut themherself anymore. [facility] [employer] [id number] Telephone encounter Note* Telephone Encounter - CARLITOS Haas - 11/17/2023 8:45 AM EST done [facility] [employer] [phone] NoteHTN remains uncontrolled therefore script to increase lisinopril to 10 mg daily. Repeat BMP in 1 week Reviewed labs from 06/19/23 and renal function, liver function and cholesterol are normal and well controlled K+ 5.0- will monitor Veronica Cheney NP Division of Cardiology, [facility] Ph- [phone] Pager- [phone] Email- [email or web address] NotePROCEDURE: XR ANKLE RT MIN 3 VIEWS HISTORY: [...] Electronically authenticated by: YANELIS ENGEL Date: 2022-07-03 10:27[facility]06-15-2022 NotePROCEDURE: XR ANKLE RT MIN 3 VIEWS, XR [...] Electronically authenticated by: YANELIS ENGEL Date: 2022-04-03 15:51[facility]06-15-2022 NotePROCEDURE: XR ANKLE RT MIN 3 VIEWS, XR [...] Electronically authenticated by: YANELIS ENGEL Date: 2022-04-03 15:51[facility]05-20-2022 NotePROCEDURE: XR ELBOW RT MIN 3 VIEWS HISTORY: Pain ; right elbow pain and contusion after falling COMPARISON: None. FINDINGS: BONES:No fracture, acute abnormality, or significant arthropathy. SOFT TISSUES:No visible soft tissue swelling. EFFUSION:None visible. OTHER: Negative. IMPRESSION: 1. No acute bone abnormality. 2. Minimal degenerative changes. Electronically authenticated by: YANELIS ENGEL Date: 2022-03-08 12:09[facility]* Diagnosis Renal calculus Calculus of kidney Gross hematuria documented in this encounter [employer] Work Phone: [email or web address] note* Diagnosis Renal calculus Calculus of kidney Gross hematuria documented in this encounter [facility] [employer] Phone: evaluation note* Diagnosis Renal calculus Calculus of kidney Gross hematuria documented in this encounter [facility] [employer] Work Phone: [email or web address] note* Diagnosis Renal calculus Calculus of kidney Pre-op testing Preoperative examination, unspecified Renal calculus Calculus of kidney documented in this encounter [employer] Phone: evaluation note* Diagnosis Renal calculus Calculus of kidney Pre-op testing Preoperative examination, unspecified Renal calculus Calculus of kidney documented in this encounter [employer] Phone: [email or web address] note* Diagnosis DJD (degenerative joint disease), ankle and foot, right- Primary Other specified disorders of synovium, right ankle and foot Onychomycosis Dermatophytosis of nail Toe pain, bilateral documented in this encounter [facility] HealthcareEvaluation note* Diagnosis Microscopic hematuria documented in this encounter [facility] [employer] noteNo assessment information available [facility] Work Phone: Evaluation note* Diagnosis Peroneal tendon tear, right, initial encounter- Primary Onychomycosis Dermatophytosis of nail Toe pain, bilateral documented in this encounter [facility] HealthcareEvaluation note* Diagnosis Benign essential HTN- Primary Nonrheumatic mitral valve regurgitation documented in this encounter [facility]* Diagnosis Benign essential HTN- Primary Obesity, morbid ([facility]) Morbid obesity documented in this encounter [facility]* Diagnosis Primary insomnia Persistent disorder of initiating or maintaining sleep documented in this encounter [facility]* Diagnosis Hx of onychomycosis- Primary documented in this encounter [facility]* Diagnosis Fibromyalgia Unspecified myalgia and myositis documented in this encounter [facility]* Diagnosis Benign essential HTN- Primary Anxiety and depression Arthritis, multiple joint involvement Unspecified arthropathy, multiple sites Fibromyalgia Unspecified myalgia and myositis Acquired hypothyroidism Unspecified hypothyroidism Primary insomnia Persistent disorder of initiating or maintaining sleep Chronic bronchitis with emphysema (CMS-HCC) Obstructive chronic bronchitis without exacerbation Special screening for malignant neoplasm of colon Special screening for malignant neoplasms, colon documented in this encounter [facility]* Diagnosis Acquired hypothyroidism- Primary Unspecified hypothyroidism Panlobular emphysema (CMS-HCC) Other emphysema Obesity, morbid ([facility]-H[facility]) Morbid obesity Need for hepatitis C screening test Special screening examination for other specified viral diseases Arthritis, multiple joint involvement Unspecified arthropathy, multiple sites Anxiety and depression Fibromyalgia Unspecified myalgia and myositis Benign essential HTN documented in this encounter [facility]* Diagnosis Chronic bronchitis with emphysema (CMS-HCC) Obstructive chronic bronchitis without exacerbation Arthritis, multiple joint involvement Unspecified arthropathy, multiple sites Anxiety and depression Fibromyalgia Unspecified myalgia and myositis Acquired hypothyroidism Unspecified hypothyroidism Benign essential HTN Primary insomnia Persistent disorder of initiating or maintaining sleep documented in this encounter [facility]* Diagnosis Chronic bronchitis with emphysema ([facility]) Obstructive chronic bronchitis without exacerbation Arthritis, multiple joint involvement Unspecified arthropathy, multiple sites Anxiety and depression Fibromyalgia Unspecified myalgia and myositis Acquired hypothyroidism Unspecified hypothyroidism Benign essential HTN Primary insomnia Persistent disorder of initiating or maintaining sleep History of kidney stones documented in this encounter [facility] note* Diagnosis Fibromyalgia- Primary Unspecified myalgia and myositis Need for influenza vaccination Need for prophylactic vaccination and inoculation against influenza Arthritis, multiple joint involvement Unspecified arthropathy, multiple sites Anxiety and depression Acquired hypothyroidism Unspecified hypothyroidism Benign essential HTN Primary insomnia Persistent disorder of initiating or maintaining sleep Chronic bronchitis with emphysema (CMS-HCC) Obstructive chronic bronchitis without exacerbation Mixed hyperlipidemia Screening for diabetes mellitus (DM) Screening for diabetes mellitus documented in this encounter [facility]* Diagnosis Medicare annual wellness visit, subsequent- Primary COPD exacerbation ([facility]) Obstructive chronic bronchitis with exacerbation documented in this encounter [facility] SystemEvaluation note* Diagnosis Benign essential HTN- Primary Arthritis, multiple joint involvement Unspecified arthropathy, multiple sites Fibromyalgia Unspecified myalgia and myositis Acquired hypothyroidism Unspecified hypothyroidism Primary insomnia Persistent disorder of initiating or maintaining sleep Chronic bronchitis with emphysema ([facility]-H[facility]) Obstructive chronic bronchitis without exacerbation History of depression Personal history of other mental disorder documented in this encounter [facility] SystemHistory and physical note Author Wanda Hagan [facility] July 21, 2024 8:40am Note Date/Time July 21, 2024 8: 40am [facility] [address] [place] [address] Gastroenterology H&P Signed Patient: Robyn Thorpe MR#: [id number] : 1955 Acct:[id number] Age/Sex: 68 / F Adm Date: 4 Loc: Room: Type: [facility] Attending Dr: Wanda Hagan MD Copies [...] By: <Electronically signed by Wanda Hagan MD> 07/21/2424 [facility] Work Phone: InstructionsNot on filedocumented in this encounter [facility] SystemInstructionsNot on filedocumented in this encounter [facility] SystemInstructionsNot on filedocumented in this encounter [facility] SystemInstructions* Attachments The following attachments cannot be sent through Care Everywhere. * Hypothyroidism (underactive thyroid) (Kyrgyz) documented in this encounterProProm[facility] HospitalInstructions* Attachments The following attachments cannot be sent through Care Everywhere. * Depression (Kyrgyz) * Fibromyalgia (Kyrgyz) documented in this encounterPro[facility] SystemInstructionsNot on file documented in this encounterProOhio [facility] SystemInstructionsNot on file documented in this encounterSt. [facility] SystemInstructions* Attachments The following attachments cannot be sent through Care Everywhere. * COPD Diet (Kyrgyz) * COPD Exacerbation, Adult ED (Kyrgyz) documented in this encounterProPromedica [facility] HospitalInstructions* Attachments The following attachments cannot be sent through Care Everywhere. * Hypothyroidism (Underactive Thyroid) Discharge Instructions (Kyrgyz) * Chronic Knee Pain (Kyrgyz) * Controlling your blood pressure through lifestyle (Kyrgyz) documented in this encounterKettering Health [facility] MemorialRekyra for referral (narrative)* Consultation (Routine) - Pending Review Specialty Diagnoses / Procedures Referred By Gregor prabhakar Referred To Contact Podiatry Diagnoses Hx of onychomycosis Jairo Daley APRN-CNP [address] [place] [address] Cristobal Owens, [facility] [address] [address] Referral ID Status Reason Start Date Expiration Date Visits Requested Visits Authorized [id number] Pending Review Specialty Services Required 11/17/2023 11/16/2024 1 1 [facility] for referral (narrative)* Consultation (Routine) - Pending Review Specialty Diagnoses / Procedures Referred By Gregor prabhakar Referred To Contact Gastroenterology Diagnoses Special screening for malignant neoplasm of colon Jairo Daley APRN-CNP [address] [place] [address] Wanda Hagan MD [address] [facility] [address] [place] [address] Referral ID Status Reason Start Date Expiration Date Visits Requested Visits Authorized [id number] Pending Review Specialty Services Required 04/12/2024 04/12/2025 1 1 [facility] for referral (narrative)No reason for referral information availableUniversity Hospitals [facility] Work Phone: Summary Purpose Family History No Family History Records Found Relationship Condition Age at Onset Recorded Date/T chen father Unknown Malignant neoplasm Unknown Heart disease Unknown Hypertension Unknown mother Diabetes mellitus Unknown Family history of kidney disease Unknown Relationship Condition Age at Onset Recorded Date/T chen father Unknown Malignant neoplasm Unknown Heart disease Unknown Hypertension Unknown Congestive heart failure Unknown mother Diabetes mellitus Unknown Family history of kidney disease Unknown Unknown Paroxysmal atrial fibrillation Unknown brother Malignant neoplasm Unknown brother Heart disease Unknown History of coronary artery bypass surgery Unknown Relationship Condition Age at Onset Recorded Date/T chen father Unknown Malignant neoplasm Unknown Heart disease Unknown Hypertension Unknown Congestive heart failure Unknown mother Diabetes mellitus Unknown Family history of kidney disease Unknown Unknown Paroxysmal atrial fibrillation Unknown brother Malignant neoplasm Unknown brother Heart disease Unknown History of coronary artery bypass surgery Unknown sister History of colon surgery Unknown Advance Directives No Advanced Directives Records Found Date Activated Date Inactivated Comments 01/21/2023 8:09 AM 01/21/2023 4:07 PM Advance Directive Response Recorded Date/ Time Advance Directives No May 18 10:27am Advance Directive Response Recorded Date/ Time Advance Directives No May 18 9:27am Reason for Referral Specialty Diagnoses / Procedures Referred By Gregor t Referred To Contact Radiology Diagnoses Renal calculus Gross hematuria Renal Calculus [N20.0] Gross Hematuria [R31.0] Procedures CT UROGRAM CHG CT ABDOMEN & PELVIS W/O CONTRST 1/> [place] [id number] - CHG CT ABDOMEN & PELVIS W/O CONTRST 1/> BODY RE Jason Dominguez MD [address] [facility], [address] [place] [address] Referral ID Status Reason Start Date Expiration Date Visits Re quested Visits Authorized [id number] Closed 12/12/2022 12/12/2023 1 1 Specialty Diagnoses / Procedures Referred By Gregor prabhakar Referred To Contact Cardiology Diagnoses Renal calculus Pre-op testing Procedures EKG 12 Lead Adele Black W, ELECTRIC POWERLINE EXAMINER - DATA MANAGEMENT SPECIALIST [address] [facility] [address] [place] [address] Referral ID Status Reason Start Date Expiration Date Visits Re quested Visits Authorized [id number] Open 01/02/2023 01/02/2024 1 1 Chief Complaint and Reason for Visit Chief Complaint Screening Screening Chief Complaint Admit Date Benign Essential HTN, MV regurgitation F rustary 2024 2:55pm Reason for Visit Admit Date Essential (primary) hypertension uar y 2024 2:55pm Tobacco use disorder, continuous uar y 2024 2:55pm Left ventricular hypertrophy due to hype rtensive disease December 15, 2024 2:55pm Atypical chest pain December 15, 2024 2:55pm Chief Complaint Admit Date Benign Essential HTN, MV regurgitation F rustary 2024 2:55pm I10, R07.89, R94.31 December 15, 2024 3:00pm Chief Complaint Admit Date Benign Essential HTN, MV regurgitation [facility] 2024 2:55pm I10, R07.89, R94.31 December 15, 2024 3:00pm R07.89 R94.31 January 21, 2025 8:30 am R07.89 R94.31 January 21, 2025 10:2 6am Chief Complaint Admit Date 5 month July 05, 2025 9:12am Reason for Visit Admit Date Essential (primary) [facility] 20[facility] 9:12am Tobacco use disorder, continuous [facility] 2024 9:12am Left ventricular hypertrophy due to hype rtensive disease July 05, 2025 9:12am Atypical chest pain July 05, 2025 9:12am Additional Source Comments INFORMATION SOURCE (unrecogn ized section and content) DATE CREATED AUTHOR 09/22/2022 [facility] DATE CREATED AUTHOR AUTHOR'S ORGANIZ ATION 03/03/2023 [facility] DATE CREATED AUTHOR AUTHOR'S ORGANIZ ATION 12/19/2023 [facility] DATE CREATED AUTHOR AUTHOR'S ORGANIZ ATION 06/15/2024 [facility] DATE CREATED AUTHOR AUTHOR'S ORGANIZ ATION 07/10/2024 [facility] DATE CREATED AUTHOR AUTHOR'S ORGANIZ ATION 12/18/2024 [facility] DATE CREATED AUTHOR AUTHOR'S ORGANIZ ATION 06/25/2025 [facility] DATE CREATED AUTHOR AUTHOR'S ORGANIZ ATION 07/08/2025 [facility] DATE CREATED AUTHOR AUTHOR'S ORGANIZ ATION 07/13/2025 [facility] (unrecognized sec tion and content) Team Status: Active Member Role Status Dates Jairo Daley NP-Tika Primary Care Provider Active Team Status: Inactive Member Role Status Dates LINDA Haas Primary Care Provider Active Start: December 15, 2024 End: December 15, 2024 Hay Rea MD Attending Provider Activ e Start: December 15, 2024 End: December 15, 2024 Team Status: Active Member Role Status Dates LINDA Haas Primary Care Provider Active Start: December 15, 2024 Hay Rea MD Attending Provider Activ e Start: December 15, 2024 Gearcase Assembler Relationship Specialty Start Date End Date Jairo Daley APRN - CNP [address] [place] [address] PCP - General 12/12/22 Gearcase Assembler Relationship Specialty Start Date End Date Jairo Daley APRN - CNP [address] [place] [address] PCP - General 12/12/22 Gearcase Assembler Relationship Specialty Start Date End Date Jairo Daley APRN - CNP [address] [place] [address] PCP - General 12/12/22 Gearcase Assembler Relationship Specialty Start Date End Date Jairo Daley, ELECTRIC POWERLINE EXAMINER - DATA MANAGEMENT SPECIALIST [address] [place] [address] PCP - General 12/12/22 Gearcase Assembler Relationship Specialty Start Date End Date Jairo Daley, ELECTRIC POWERLINE EXAMINER - DATA MANAGEMENT SPECIALIST [address] [place] [address] PCP - General 12/12/22 Team Status: Active [...] Care Provider Active Start: July 21, 2024 Gearcase Assembler Relationship Specialty Start Date End Date Unallocated, Shania Cabrera MD [address], [place] [id number] PCP - General Family Medicine 07/08/24 Jairo Daley CRNP [address] [place] [address] Referring Physician Nurse Practitioner 07/08/24 Gearcase Assembler Relationship Specialty Start Date End Date Unallocated, Shania Cabrera MD [address] [place] [address] PCP - General Family Medicine 07/08/24 Jairo Daley CRNP [address] [place] [address] Referring Physician Nurse Practitioner 07/08/24 Gearcase Assembler Relationship Specialty Start Date End Date Jairo Daley [facility] [address] [place] [address] PCP - General Family Medicine 02/20/22 Gearcase Assembler Relationship Specialty Start Date End Date Jairo Daley [facility] [address] [place] [address] PCP - General Family Medicine 02/20/22 Gearcase Assembler Relationship Specialty Start Date End Date Jairo Daley [facility] [address] [place] [address] PCP - General Family Medicine 02/20/22 Gearcase Assembler Relationship Specialty Start Date End Date Jairo Daley [facility] [address] [place] [address] PCP - General Family Medicine 02/20/22 Gearcase Assembler Relationship Specialty Start Date End Date Jairo Daley [facility] [address] [place] [address] PCP - General Family Medicine 02/20/22 Gearcase Assembler Relationship Specialty Start Date End Date Jairo Daley [facility] [address] [place] [address] PCP - General Family Medicine 02/20/22 Gearcase Assembler Relationship Specialty Start Date End Date [facility] [address] [place] [address] PCP - General Family Medicine 02/20/22 Gearcase Assembler Relationship Specialty Start Date End Date Jairo Daley [facility] [address] [place] [address] PCP - General Family Medicine 02/20/22 Gearcase Assembler Relationship Specialty Start Date End Date Jairo Daley [facility] [address] [place] [address] PCP - General Family Medicine 02/20/22 Gearcase Assembler Relationship Specialty Start Date End Date Jairo Daley [facility] [address] [place] [address] PCP - General Family Medicine 02/20/22 Gearcase Assembler Relationship Specialty Start Date End Date Jairo Daley [facility] [address] [place] [address] PCP - General Family Medicine 02/20/22 Gearcase Assembler Relationship Specialty Start Date End Date Jairo Daley [facility] [address] [place] [address] PCP - General Family Medicine 02/20/22 Gearcase Assembler Relationship Specialty Start Date End Date Jairo Daley APRN-DATA MANAGEMENT SPECIALIST [address] [facility], [place] [address] PCP - General Family Medicine 02/20/22 Team Status: Inactive Member Role Status Dates LINDA Haas Primary Care Provider Active Start: January 21, 2025 End: January 21, 2025 Hay Rea MD Attending Provider, Referring Provider Active Start: January 21, 2025 End: January 21, 2025 Team Status: Active Member Role Status Dates LINDA Haas Primary Care Provider Active Start: January 21, 2025 Hay Rea MD Attending Provider, Referring Provider, Other Provider Active Start: January 21, 2025 Team Status: Inactive Member Role Status Dates LINDA Haas Primary Care Provider Active Start: July 05, 2025 End: July 05, 2025 Hay Rea MD Attending Provider Active Start: June End: July 05, 2025 Team Status: Active Member Role Status Dates LINDA Haas Primary Care Provider Active Start: July 05, 2025 Chantale Cardona MD Attending Provider Active Sta rt: July 05, 2025 Team Status: Inactive Member Role Status Dates LINDA Haas Primary Care Provider Active Start: July 05, 2025 End: July 05, 2025 Chantale Cardona MD Attending Provider Active Sta rt: July 05, 2025 End: July 05, 2025 Reason for Visit (unrecogniz ed section and content) Specialty Diagnoses / Procedures Referred By Gregor t Referred To Contact Radiology Diagnoses Renal calculus Gross hematuria Renal Calculus [N20.0] Gross Hematuria [R31.0] Procedures CT UROGRAM CHG CT ABDOMEN & PELVIS W/O CONTRST 1/> [place] [id number] - CHG CT ABDOMEN & PELVIS W/O CONTRST 1/> BODY RE Jason Dominguez MD [address] [place] [address], [address] [place] [address] Referral ID Status Reason Start Date Expiration Date Visits Re quested Visits Authorized [id number] Closed 12/12/2022 12/12/2023 1 1 Reason Comments DM Foot Care Dm Nails/ fungus Specialty Diagnoses / Procedures Referred By Gregor t Referred To Contact Podiatry Diagnoses Hx of onychomycosis Procedures AMB REFERRAL TO PODIATRY Jairo Daley CRNP [address] [place], [place] [address] Cristobal Owens, VIKI [address] [place] [address] Referral ID Status Reason Start Date Expiration Date Visits Re quested Visits Authorized [id number] Closed 11/17/2023 11/16/2024 1 1 Reason Comments Toenail Care NON DM NAIL CARE Reason Comments Hypertension Reason Comments Med Refill Reason Comments Hypertension Depression Fibromyalgia Reason Onset Date Comments Med Refill 01/13/2024 Reason Onset Date Comments Med Refill 01/15/2024 Reason Comments Hypothyroidism fibro Reason Comments Annual Exam medicare Reason Comments cv Goals (unrecognized section and content) Goals may be documented in a n alternate section FOR RECORDS PERTAINING TO PATIENTS WHO ARE [...] BE BASED ON THE PRIMARY CLINICAL RECORDS. [facility]. provides no warranty or guarantee of the accuracy or completeness of information in this document.
== END 2025-07-14 13:29 | disposition home or self-care (01) ==
LOC: WC 13:28
PROVIDERS: PCP Nurse Practitioner; Visit Provider Physician Assistant
DX: R09.89 Other specified symptoms and signs involving the circulatory and respiratory systems (principal); B35.1 Tinea unguium; L60.0 Ingrowing nail; L60.8 Other nail disorders
CPT/HCPCS: 11721

== ENCOUNTER 2025-08-22 15:10 | Emergency (ER) | payer MEDICARE, MEDICAID, SELFPAY ==
--- OUTSIDE RECORDS SUMMARY | 2024-07-01 03:30 | XMS_ITS ---
Author Organization The [facility] in [place] Address [address] [place] [address] Care Team Providers Care Scaffold Worker Name Role Phone Emmie Daley Primary Care Provider Unavaila Onesimo Kidd Unavailable [phone] REASON FOR VISIT 1y COPD, LDCT Encounters Encounter Location Date Provider Diagnosis Pulmonary Medicine [address] [address] 07/01/2024 Onesimo Spaulding Plan Of Treatment No Information Progress Notes * Robyn NUNEZDOB:1955 (69 yo F)Acc No.[id number]:07/01/2024 UNLOCKED PROGRESS NOTE Follow Up Patient: Karson LYNNEgiancarlo Cabrera :?CHICHO BernardoOB:1955???Age:68 Y ???Sex:FemaleDate:4Phone:[phone]:[address], [id number]:Emmie Daley Subjective: * Chief Complaints: * 1 . 1y COPD, LDCT. * Medical History: Objective: * Vitals: Assessment: Plan: * Treatment: * * Electronic signature of Onesimo Spaluding DO on 08/22/2025 at 03:36 PM ESTSign off status: PendingVisit Status:?R/S (Rescheduled) * Provider: Maday Spaulding DO Date: 0 07/01/2024 Generated for Printing/Faxing/eTransmitting on:?08/22/2025 03:36 PM EST
--- OUTSIDE RECORDS SUMMARY | 2024-09-06 05:00 | XMS_ITS ---
Author Organization [facility] Address [address] [place] [address] Care Team Providers Care Shooter'S Helper Name Role Phone JAIRO OCHOA Primary Care Provider Unavail able Michi Drake Unavailable [phone] REASON FOR VISIT RIGHT KNEE OA Encounters Encounter Location Date Provider Diagnosis [facility] [address] [place] [address] [place] [address] 09/06/2024 Michi Drake Plan Of Treatment No Information Progress Notes * ENRIQUESARA LebronDEEDEE CabreraDOB:1955 (69 yo F)Acc No.[id number]:09/06/2024 Patient:?SARA NUNEZDEEDEE Cabrera :?Michi Drake, MDDOB:1955???Age:68 Y ???Sex:FemaleDate:09/06/2024hone:[phone]:[address], [place] [id number]:JAIRO OCHOA Subjective: * Chief Complaints: * 1 . RIGHT KNEE OA. * Medical History: Objective: * Vitals: Assessment: Plan: * Treatment: Forms: * Images: * Electronic signature of Michi Drake MD on 08/22/2025 at 03:38 PM ESTSign off status: Pending * Provider: Getachew Drake MD Date: 11/06/2023 Generated for Printing/Faxing/eTransmitting on:?08/22/2025 03:38 PM EST
--- OUTSIDE RECORDS SUMMARY | 2024-11-01 08:30 | XMS_ITS ---
Author Organization [facility] Address [address] [place] [address] Care Team Providers Care Costume Design Teacher Name Role Phone JAIRO OCHOA Primary Care Provider Unavail able Michi Drake Unavailable [phone] Karthik Samaniego Unavailable [phone] REASON FOR VISIT RIGHT KNEE RECHECK - CSI 08/16 Medications Medication SIG (Take, Route, Frequency, Duration) Notes Start Date End Date Status Medrol Dosepak 4 mg as directed 07/26/2024ctive Encounters Encounter Location Date Provider Diagnosis [facility] [address] [place] [address] 11/01/2024 Karthik Samaniego Plan Of Treatment No Information Progress Notes * FRANKO NUNEZDOB:1955 (69 yo F)Acc No.[id number]:11/01/2024 Patient:?ENRIQUE FRANKO Cabrera :?Karthik Samaniego, DODOB:1955???Age:68 Y ???Sex:FemaleDate:11/01/2024Phone:[phone]:[address], [place] [id number]:JAIRO OCHOA Subjective: * Chief Complaints: * 1 . RIGHT KNEE RECHECK - CSI 08/16. * Medical History: * Medications: T aking Medrol Dosepak 4 mg tablet as directed Objective: * Vitals: Assessment: Plan: * Treatment: Forms: * Images: * Electronic signature of Karthik Samaniego DO on 08/22/2025 at 03:36 PM ESTSign off status: Pending * Provider: Eusebia Samaniego DO Date: 0 11/01/2024 Generated for Printing/Faxing/eTransmitting on:?08/22/2025 03:36 PM EST
--- OUTSIDE RECORDS SUMMARY | 2025-06-29 03:00 | XMS_ITS ---
Author Organization [facility] in [place] Address [address] [place] [address] Care Team Providers Care Clinical Physician Assistant Name Role Phone Emmie Daley Primary Care Provider Unavaila Onesimo Kidd Unavailable [phone] REASON FOR VISIT 1 Year F/U Encounters Encounter Location Date Provider Diagnosis Pulmonary Medicine [address] [address] 06/29/2025 Onesimo Spaulding Plan Of Treatment No Information Progress Notes * Robyn NUNEZDOB:1955 (69 yo F)Acc No.[id number]:06/29/2025 UNLOCKED PROGRESS NOTE Follow Up Patient: Karson LYNNEgiancarlo Cabrera :?Onesimo Spaulding DODOB:1955???Age:69 Y ???Sex:FemaleDate:06/29/2025Phone:[phone]:[address], [id number]:Emmie Daley Subjective: * Chief Complaints: * 1 . 1 Year F/U. * Medical History: Objective: * Vitals: Assessment: Plan: * Treatment: * * Electronic signature of Onesimo Spaulding DO on 08/22/2025 at 03:35 PM ESTSign off status: PendingVisit Status:?OFF CANC (OFFICE CANCEL) * Provider: Maday Spaulding DO Date: 0 06/29/2025 Generated for Printing/Faxing/eTransmitting on:?08/22/2025 03:35 PM EST
[2025-08-22] VITALS (24 sets, daily range): BP systolic 160–244; BP diastolic 67–135; PULSE 59–128; TEMP 36.4; O2SAT 93–98; BMI 41.6
--- NOTE | 2025-08-22 15:27 | ECG_ITS ---
[facility] Test Date: 2025-08-22 Pat Name: FRANKO NUNEZ Department: Room: - Gender: Female Refractory Specialist: : [id number] Requested By: [id number] Order Number: [id number] Reading MD: ROSETTA CARRASCO Measurements Intervals [place] Rate: 63 P: 67 RI: 142 QRS: 40 QRSD: 130 T: 42 QT: 452 QTc: 460 Interpretive Statements 1100 Sinus rhythm 2450 Right bundle branch block 9150 abnormal ECG Compared to ECG 04/25/2024 09:11:49 No significant changes Electronically Signed On 08-22-2025 16:32:57 EST by ROSETTA CARRASCO
--- OUTSIDE RECORDS SUMMARY | 2025-08-22 15:35 | XMS_ITS | Patient Health Record ---
Author Organization [facility] es Address [address] [facility] [place] [address] Care Team Providers Care Private Eye Name Role Phone Emmie Daley Primary Care Provider Allergies Allergen (clinical drug ingredient) Drug/Non Drug Allergy documented on EMR Reaction Allergy Type Onset Date Status bee pollen Bee Pollen swelling Drug Allergy ActivelisinoprilLisinoprilcoughDrug AllergyActiveTaperashAllergyActive Reason For Referral No Information Medications Medication SIG (Take, Route, Frequency, Duration) Notes Start Date End Date Status Losartan Potassium 100 MG Tablet 1 tablet Orally Once a day; Duration: 90 days ActivetraMADol HCl 50 MG Tablet1 tablet as needed Orally every 8 hrs; Duration: 30 days/5ActiveNorvasc 10 MG Tablet1 tablet Orally Once a day; Duration: 90 days5ActiveAlbuterol Sulfate HFA 108 (90 Base) MCG/ACT Aerosol SolutionINHALE 2 PUFFS BY MOUTH EVERY 4 HOURS NEEDED FOR SHORTNESS OF BREATH Inhalation; Duration: 90 DaysActiveSpironolactone 25 MG Tablet1 tablet Orally Once a day; Duration: 90 daysActiveNystatin 692915 UNIT/GM Powder1 application Externally Twice a day; Duration: 30 days08/05//6Active Levothyroxine Sodium 25 MCG Tablet1 tablet Oral Once a day; Duration: 90 days ActiveVitamin B Complex-C - Capsuleas directed Nlayyt575ActiveFlomax ActiveFLUoxetine HCl 10 MG Capsule1 capsule Orally Once a day; Duration: 90 days ActiveGabapentin 100 MG Capsule1 capsule Oral twice a day; Duration: 90 days ActiveTrelegy Ellipta 100-62.5-25 MCG/ACT Aerosol Powder Breath Activated1 puff Inhalation Once a day; Duration: 90 daysActivetraZODone HCl 150 MG Tablet1 tablet at bedtime Orally Once a day; Duration: 90 days5ActiveMetoprolol Tartrate 100 MG Tablet1 tablet with food Oral Twice a day; Duration: 90 days ActiveDiclofenac Sodium 75 MG Tablet Delayed Release1 tablet Orally Twice a day; Duration: 90 days6ActiveGabapentin 300 MG Capsule1 capsule Oral nightly; Duration: 90 daysActive Social History Tobacco Use: Social History Observation Description Date Details (start date - stop date) Current Smoker NA - NA Sex Assigned At : Social History Observation Description Sex Assigned At Female Social History Food Insecurity ScreeningSocial InfoQuestionAnswerNotesFood Insecurity Screening Within the last 12 months, have you been worried about your food running out before you received money to buy more?NoWithin the last 12 months, did the food you buy not last, and you didn't have money to buy more?NoWithin the last 12 months, have you had any difficulty affording to eat balanced meals including all food groups (fruits, vegetables, protein, and whole grains)?NoDrug/Alcohol: Social InfoQuestionAnswerNotesAUDIT-C (Standard)Did you have a drink containing alcohol in the past year?BoMqaotx3NqswdthkqygyheYbjenriqKdcsder Use:Social Info QuestionAnswerNotesTobacco Control (Standard)Tobacco use:Current smoker? How often do you smoke cigarettes?Every day? How many cigarettes a day do you smoke? 6-10? How soon after you wake up do you smoke your first cigarette?31-60 minutes ? Are you interested in quitting?Ready to quit Problems Problem Type SNOMED Code ICD Code Onset Dates Problem Status W/U Status Risk Notes Problem Tobacco user (249326167) Nicotin e dependence, unspecified, uncomplicated (F17.200) ActiveconfirmedProblemDepression (136468300)Depression (F32.9)Activeconfirmed ProblemAcquired hypothyroidism (180273598)Acquired hypothyroidism (E03.9)Active confirmedProblemLumbosacral spondylosis without myelopathy (27491218)Spondylosis without myelopathy or radiculopathy, lumbar region (M47.816)3Active confirmedProblemFibromyalgia (371578404)Fibromyalgia (M79.7)11/11/2022ctive confirmedProblemInsomnia (883395381)Insomnia (G47.00)02/06/2012ctiveconfirmed ProblemAtypical chest pain (025731815)Atypical chest pain (R07.89)05/23/2023 ActiveconfirmedProblemIntermittent palpitations (107904242)Intermittent palpitations (R00.2)05/23/2023ctiveconfirmedProblemAlcohol dependence (98762121)Uncomplicated alcohol dependence (F10.20)05/23/2023ctiveconfirmed ProblemAttention deficit disorder (76487599)ADD (attention deficit disorder) (F98.8)02/06/2012ctiveconfirmedProblemChronic pain syndrome (485581564)Chronic pain disorder (G89.4)11/11/2022ctiveconfirmedProblemEssential hypertension (32022310)Benign essential HTN (I10)05/23/2023ctiveconfirmedProblemArthritis of left knee (5643679893530452)Arthritis of left knee (M17.12)11/11/2022ctive confirmedProblemHistory of malignant neoplasm of cervix (253493622)History of cervical cancer (Z85.41)01/20/2013ctiveconfirmedProblemInternal derangement of left knee (02626058626772778)Internal derangement of left knee (M23.92) 11/11/2022ctiveconfirmedProblemHearing loss (03546923)Deafness in left ear (H91.92)01/20/2013ctiveconfirmedProblemGraves' disease (362684329)Graves' disease (E05.00)04/01/2022ctiveconfirmedProblemBone cyst (25596280)Bone cyst (M85.60)01/20/2013ctiveconfirmedProblemCervical spondylosis without myelopathy (922410509)Cervical spondylosis without myelopathy (M47.812)08/20/2023ctive confirmedProblemMitral valve regurgitation (39665798)Mitral valve regurgitation (I34.0)04/01/2022ctiveconfirmedProblemChondromalacia of patella (11584845) Chondromalacia patellae of left knee (M22.42)11/11/2022ctiveconfirmedProblem Chronic bronchitis with emphysema (227982533)Chronic bronchitis with emphysema (J44.89)01/21/2013ctiveconfirmedProblemLumbar post-laminectomy syndrome (402532284)Lumbar post-laminectomy syndrome (M96.1)11/11/2022ctiveconfirmed ProblemRenal calculus (39290731)Renal calculus (N20.0)01/20/2023ctiveconfirmed ProblemSensorineural hearing loss of left ear with normal hearing on right side (disorder) (9893781975)Sensorineural hearing loss (SNHL) of left ear with unrestricted hearing of right ear (H90.42)11/11/2022ctiveconfirmed Vital Signs Heart Rate 50 /min 08/05/2025 Rrbvyojmsrp18.6 degrees Otwwkonybe68/17/6881Zmqhlxeq84 %08/05/2025lood pressure ebcrtnxlg77 mm Hg08/05/20255977Cmhgmz85.5 in08/05/2025lood pressure bhmouyji671 mm Hg08/05/20251209Lrprpz008.8 lbs1MI38.66 kg/m208/05/2025 Encounters Encounter Location Date Provider Diagnosis [facility] [address] [place] [address] 07/26/2025 [facility] [place] [address] [facility] [place] [address]/Valerie EdiCandida infection B37.9[facility] [place] [address]/12/2024[facility] [place] [address]/03/2025Valerie Edi Fibromyalgia M79.7 ; Insomnia G47.00 ; Benign essential HTN I10 ; Chronic bronchitis with dfxnsubgtS73.89 ; Acquired hypothyroidism E03.9 ; Depression F32.9 and Nicotine dependence, unspecified, uncomplicated F17.200[facility] [address] [place] [address]/08/2025Valerie CastilloBenign essential HTN I10 and Nicotine dependence, unspecified, uncomplicated F17.200[facility] [address] [place] [address]/05/2025Valerie CastilloBenign essential HTN I10 ; Nicotine dependence, unspecified, uncomplicated F17.200 ; Leg edema R60.0 ; Hip pain M25.559 and Fibromyalgia M79.7[facility] [address] [address]/Valerie CastilloBenign essential HTN I10 and Estrellita infection B37.9 Assessments Encounter Date Diagnosis (ICD Code) Assessment Notes Treatment Notes Treatment Clinical Notes Section Notes 05/25/2025 Fibromyalgia (ICD-10 - M79.7) States she does have flare up of her fibromyalgia pain. On rare occassion, she does need to take tramadol for the overall pain. Is taking gabpentin 100 mg oral in the AM and afternoon, 300 mg at HS. No current exacerbation of pain at this time. Reorder tramadol. OARRS was reviewed.05/30/2025eni essential HTN (ICD- 10 - I10)Blood pressure has significantly redues. Was 184/83 last week. Is 133/71.Conitnue amlodpine 10 mg oral daily, losartan 100 mg oral daily, metoprolol tartrate 25 mg oral twice daily and tqnmeywkshzphn43 mg oral daily. 07/27/2025eni essential HTN (ICD-10 - I10)Blood pressure has improved. Unfortunately, she has developed leg swelling from amlodipine. DIscontinue amlodipine. Increaset metoprolol tartrate to 50 mg oral twice daily. Continue losartan 100 mg oral daily.08/05/2025andida infection (ICD-10 - B37.9) Clean area under breasts with water and mild soap and water. Keep area dry. Start Nystatin powder twice daily under breasts. Start fluconazole 150 mg oral daily for 10 days. 08/05/2025enign essential HTN (ICD-10 - I10) Blood pressure is 155/83. Increase metoprolol to 100 mg oral twice daily Was previously on amlodipine but discontinued due to lower leg swelling Continue to monitor blood pressure at home. Please call the office if blood pressure remains above 140 systollic and 90 diastolic. 08/08/2025andida infection (ICD-10 - B37.9)05/30/2025Nicotine dependence, unspecified, uncomplicated (ICD-10 - F17.200)Dsicussed smoking cessation today, patient is not interested at this time.07/27/2025Leg edema (ICD-10 - R60.0) Bilateral leg edema of lower extremities. Non-pitting. Was recently started on amlodipine. Suspect is the cause of her leg swelling. Discontinue amlodipine. 07/27/2025Nicotine dependence, unspecified, uncomplicated (ICD-10 - F17.200) Smoking cessation discussed. She is not interested at this time.05/25/2025 Insomnia (ICD-10 - G47.00)Sleeping well with trazodone 150 mg oral nightly. She does admit to marijuana smoking at HS at times. States this helps her sleep as well.05/25/2025enign essential HTN (ICD-10 - I10)Blood pressure is elevated today. 184/83. She is asymptomatic. WIll add amlodipine 10 mg oral dailyto her treatment plan. Continue losartan 100 mg, metoprolol 25 mg oral twice daily, and spiroaldactone 25 mg oral daily. Recheck in one week.07/27/2025Hip pain (ICD-10 - M25.559)05/25/2025hronic bronchitis with emphysema (ICD-10 - J44.89)Denies current exacerbation of COPD. She still continues to smoke. We discussed cessation today, she is not interested. Continue Trelegy as directed. She is monitored by pulmonology, Dr. Spaulding.07/27/2025Fibromyalgia (ICD-10 - M79.7) Reviewed OARRS. No discrepency. Refill Tramadol.5Acquired hypothyroidism (ICD-10 - E03.9)Continue levothyroxine 25 mcg oral daily 05/25/2025Depression (ICD-10 - F32.9)Patient reports her moods are stable. Will continue fluoxetine 10 mg oral daily05/25/2025Nicotine dependence, unspecified, uncomplicated (ICD-10 - F17.200)Discussed smoking cessation today. She is not interested at this time.05/25/2025OtherBody Mass Index: Care Instructions material was jhueddh3705/30/2025OtherBody Mass Index: Care Instructions material was bsgcgaw9007/27/2025OtherBody Mass Index: Care Instructions material was printed Plan Of Treatment Next Appt Details Provider Name:Emmie doe, 09/23/2025 10:00:00 AM, [address] [place], [address], Insurance Providers Payer Name Payer Address Payer Phone Subscriber Number Group Number Insured Name Patient Relationship to Insured Coverage Start Date Coverage End Date [facility] [address] [place] [address] [id number] Pilar NUNEZ - patient is the insuredSecondary UHC [place] MedicaidPO [address] [place] [id number], KARENSelf - patient is the insured.Transport [facility] wrap[address] [place] [phone] [id number], KARENSelf - patient is the insured Medical (General) History Medical History History ICD Code spondylosis fibromyalgiaalcohol dependancyADDgrave's diseasearthritis of left kneeHTN cervical cancerdeafness left earSurgical History Surgery Date(Month/Year) foot surgery right foot 2022 reconstructive surgery right foot 2024 Hospitalization History Reason Date(Month/Year) see surgeries
--- OUTSIDE RECORDS SUMMARY | 2025-08-22 15:36 | XMS_ITS | Clinical Summary ---
Author Organization [facility] Healthcare Address [address] [place] [address] Care Team Providers Care Sewage Reticulation Drafting Officer Name Role Phone Emmie Daley MOE Unavailable [phone] Unallocated, [facility] Provider Primary Care Provi nabeel Reid Valdez MD Unavailable Allergies Active AllergyReactionsCriticalityNoted DateCommentsAttends Briefs SmallRashLow 01/27/2013ee QnxgiKmkfiyhhinmZanm67/10/2013 Other reaction(s): Not available WbmtatycfqIjhqf48/14/2023 Medications MedicationSigDispense QuantityRefillsLast FilledStart DateEnd DateStatus albuterol HFA 90 mcg/act inhaler TAKE TWO PUFFS BY MOUTH EVERY 6 HOURS XHZSQG6903/03/2023ctive EPINEPHrine (Epipen) 0.3 MG/0.3ML injection syringe USE DIRECTED FOR BEE LCWOXO5901/16/2023ctive gabapentin (Neurontin) 300 MG capsule Take 300 mg by mouth at kykmguh3708/20/2023ctive lisinopril 10 MG tablet Take 10 mg by mouth in the morning.06/25/2023ctive losartan (Cozaar) 25 MG tablet Take 25 mg by mouth07/03/2023ctive methocarbamol (Robaxin) 500 MG tablet Take 1 tablet by mouth 3 (three) times a day as neededActive metoprolol tartrate (Lopressor) 25 MG tablet Take 1 tablet by mouth in the morning and 1 tablet before bedtime.08/20/2023 Active nitroglycerin (Nitrostat) 0.4 MG SL tablet DISSOLVE 1 TABLET UNDER TONGUE NEEEDEDActive propylthiouracil (PTU) 50 MG tablet TAKE 1 TABLET BY MOUTH IN THE MORNING, 1 TABLET AT NOON, 1 TABLET BEFORE BEDTIME Active spironolactone (Aldactone) 25 MG tablet Take 25 mg by mouth in the morning.Active traMADol (Ultram) 50 MG tablet TAKE 1 TABLET BY MOUTH EVERY 8 HOURS NEEDED FOR PAIN FOR UP TO 5 DAYS. 01/14/2023ctive traZODone (Desyrel) 150 MG tablet Take 1 tablet by mouth at osnrxsh3308/20/2023ctive Active Problems No known active problems Family History Medical HistoryRelationNameCommentsCancerFatherHeart diseaseFatherHypertension FatherCancerMotherDiabetesMotherHeart diseaseMotherHypertensionMotherKidney diseaseMotherRelationNameStatusCommentsFatherDeceasedMotherAlive Social History Tobacco UseTypesPacks/DayYears UsedDateSmoking Tobacco: Every DayCigarettes0.559 Passive Smoke Exposure: PastSmokeless Tobacco: Never Tobacco Cessation:Ready to Q uit: Not Asked; Counseling Given: Yes Alcohol UseStandard Drinks/WeekCommentsNot Currently0 (1 standard drink = 0.6 oz pure alcohol)coffee dailyAUDIT-CAnswerDate RecordedQ1: How often do you have a drink containing alcohol?2-4 times a month12/04/2023verage Number of DrinksNot on file12/04/2023Frequency of Binge DrinkingNot on file12/04/2023 CommentsUnknownSex and Gender InformationValueDate RecordedSex Assigned at Not on fileLegal BwrDsxwsz14/15/2023 6:55 PM EDTGender IdentityNot on fileSexual OrientationNot on file Last Filed Vital Signs Vital SignReadingTime TakenCommentsBlood Fhmtraei519/80007/08/2024 12:09 PM EDT Qdoen833007/08/2024 12:09 PM EDTTemperature--Respiratory Tjfn261407/08/2024 12:09 PM EDTOxygen Saturation--Inhaled Oxygen Concentration--Iksqew84.6 kg (202 lb) 07/08/2024 12:09 PM VVRAdepoj451.3 cm (5' 3.5 )07/08/2024 12:09 PM EDTBody Mass Index35.22007/08/2024 12:09 PM EDT Plan of Treatment Health MaintenanceDue DateLast DoneCommentsCT Fxvfxogppmbs15/17/1956Colonoscopy 1955Colorectal Cancer Hriebtyyt32/17/1957FIT-DNA1956FIT1955 FOBT1955 4036Dtknbfqnbwycr23/17/1957DTaP/Tdap/Td Vaccines (1 - Tdap)1963 Rtgnpqcoh54OVID-19 Vaccine (5 - season)2025 01/13/2022, 01/13/2022, 07/14/2021, Additional history existsInfluenza Vaccine (#1), 07/29/2024, 08/20/2023, Additional history exists Medicare Annual Wellness (AWV), 08/20/2023, 07/30/2022 Pneumococcal Vaccine: 65+ WeicwRegonedan38/14/2022, 10/02/2022HIB VaccinesAged OutNo longer eligible based on patient's age to complete this topicHPV Vaccines Aged OutNo longer eligible based on patient's age to complete this topic Hepatitis A VaccinesAged OutNo longer eligible based on patient's age to complete this topicHepatitis B VaccinesAged OutNo longer eligible based on patient's age to complete this topicIPV VaccinesAged OutNo longer eligible based on patient's age to complete this topicMeningococcal B VaccineAged OutNo longer eligible based on patient's age to complete this topicMeningococcal VaccineAged OutNo longer eligible based on patient's age to complete this topicRotavirus VaccinesAged OutNo longer eligible based on patient's age to complete this topic Insurance Care Teams Team MemberRelationshipSpecialtyStart DateEnd Date Unallocated, [place], [address] [facility] [place] [address] [facility] Reid Valdez MD [address] [place] [address] PCP - 01/18/25 Emmie Daley CRNP Referring PhysicianNurse Practitioner07/08/24
--- OUTSIDE RECORDS SUMMARY | 2025-08-22 15:36 | XMS_ITS | Patient Health Record ---
Author Organization [facility] Address [address] [place] [address] Care Team Providers Care Labor Contract Analyst Name Role Phone JAIRO OCHOA Primary Care Provider Unavail able Michi Drake Unavailable [phone] SamaniegoKarthik cornejo Unavailable [phone] Allergies Allergen (clinical drug ingredient) Drug/Non Drug Allergy documented on EMR Reaction Allergy Type Onset Date Status latex/surgical tape (uncoded)UnknownAllergyActive Reason For Referral No Information Medications Medication SIG (Take, Route, Frequency, Duration) Notes Start Date End Date Status Medrol Dosepak 4 mg as directed 4Active Social History Tobacco Use: Social History Observation Description Date Details (start date - stop date) Current Smoker NA - NA Smoking History Question Answer Notes Smoking Status Current Smoker AUDIT-C (Standard) Question Answer Notes Did you have a drink containing alcohol in the p ast year? No Dfgacu6OrbrotjicdjawqMgnaqvks Problems Problem Type SNOMED Code ICD Code Onset Dates Problem Status W/U Status Risk Notes Problem Cervical spondylosis without myelopathy (321368640) Spondylosis without myelopathy or radiculopathy, cervical region (M47.812) McjlxxqyqgtpqxvRqhexbh893397488Derbwymkxnb without myelopathy or radiculopathy, lumbar region (M47.816)EszugmmyayicexkPmsvmcy96492997Qqpui extraarticular fracture of lower end of right radius, subsequent encounter for closed fracture with routine healing (S52.268H)ActiveconfirmedProblemOsteoarthritis of knee (897538686)Primary osteoarthritis of right knee (M17.11)ActiveconfirmedProblem 90875045Gmkxp closed extra-articular fracture of distal end of right radius, initial encounter (S52.551A)Activeconfirmed Plan Of Treatment Pending Test Test Name Order Date SCC- KNEE 4 VIEW RIGHT 09403 07/26/2024 SCC- WRIST 3 VIEW RIGHT 63391 05/03/2024 SCC- WRIST 3 VIEW RIGHT 10396 05/10/2024 SCC- WRIST 3 VIEW RIGHT 44774 06/07/2024 SCC- WRIST 3 VIEW RIGHT 03032 07/05/2024 Insurance Providers Payer Name Payer Address Payer Phone Subscriber Number Group Number Insured Name Patient Relationship to Insured Coverage Start Date Coverage End Date MEDICARE UHC DUAL COMPLETE [address] [place] [phone] [id number] OHDSNP FRANKO NUNEZ Self - [facility] the [facility] [address] [place] [id number] Pilar NUNEZ - patient is the insuredMedicare [facility] of [place]PO [address] [place]ETTE QURESHI [id number], KARENSelf - patient is the [id number] 2024 Medical (General) History Medical History History ICD Code Latex Allergy AsthmaCancerKidney troubleHigh Blood Pressure
--- OUTSIDE RECORDS SUMMARY | 2025-08-22 15:36 | XMS_ITS | Clinical Summary ---
Author Organization [facility] Address [address], [address] [place] [address] Care Team Providers Care Cut Out Machine Operator Name Role Phone Emmie Daley APRN - ADJUNCT HISTORY INSTRUCTOR Primary Care Prov ider Allergies Active AllergyReactionsCriticalityNoted DateCommentsAdhesive TapeRashLow 01/27/20136711CgnryzvcunKacfk33/14/6223Tuoex99/19/2012 BEES Medications MedicationSigDispense QuantityRefillsLast FilledStart DateEnd DateStatus hydrocodone-acetaminophen (LORTAB) 7.5-500 MG per tablet Take 1 tablet by mouth. 1 tab Q 4 hrs PRNActive atomoxetine (STRATTERA) 25 MG capsule Take 1 capsule by mouth daily. 30 capsule 11002/06/2012ctive Additional Information Patient not taking.Reported on 07/18/2025 EPINEPHrine (EPIPEN 2-ROSALINDA) 0.3 MG/0.3ML DANIELLE injection Inject 0.3 mLs into the muscle once as needed for 1 dose. 1 Device ctive smiabllusho-cuoxlepsg-nlxhgy (TRELEGY ELLIPTA) 100-62.5-25 MCG/ACT AEPB inhaler Trelegy Ellipta 100 mcg-62.5 mcg-25 mcg powder for inhalation INHALE 1 PUFF BY MOUTH EVERYDAY *RINSE MOUTH AFTER USE*Active gabapentin (NEURONTIN) 300 MG capsule Take 1 capsule by mouth in the morning and at bedtime.10/28/2022ctive metoprolol tartrate (LOPRESSOR) 25 MG tablet metoprolol tartrate 25 mg tablet TAKE 1 TABLET BY MOUTH TWICE A DAY10/31/2022ctive nitroGLYCERIN (NITROSTAT) 0.4 MG SL tablet nitroglycerin 0.4 mg sublingual tablet DISSOLVE 1 TABLET UNDER TONGUE NEEEDEDActive propylthiouracil (PTU) 50 MG tablet propylthiouracil 50 mg tablet TAKE 1 TABLET BY MOUTH IN THE MORNING, 1 TABLET AT NOON, 1 TABLET BEFORE BEDTIME 10/31/2022ctive traZODone (DESYREL) 150 MG tablet trazodone 150 mg tablet TAKE 1 TABLET BY MOUTH AT ROMRKCP8510/31/2022ctive spironolactone (ALDACTONE) 25 MG tablet Take 1 tablet by mouth daily 30 tablet 11005/23/2023ctive albuterol sulfate HFA (PROVENTIL;VENTOLIN;PROAIR) 108 (90 Base) MCG/ACT inhaler INHALE 2 PUFFS EVERY 4 HOURS NEEDED FOR WHEEZING OR SHORTNESS OF BREATH 03/03/2023ctive diclofenac (VOLTAREN) 75 MG EC tablet Take 1 tablet by mouth 2 times daily5Active FLUoxetine (PROZAC) 10 MG capsule Take 1 capsule by mouth daily5Active amLODIPine (NORVASC) 10 MG tablet Take 1 tablet by mouth dailyActive tamsulosin (FLOMAX) 0.4 MG capsule Take 1 capsule by mouth every evening 30 capsule 5Active Active Problems ProblemNoted DateDiagnosed DateRenal cnezlxhi00/03/3218Zayagqsp10/19/2012DD (attention deficit disorder)02/06/2012Tobacco abuse02/06/2012 Encounters DateTypeDepartmentCare NwruBdgxcnanmch39/10/2025bstract [facility] Pulmonology [address] [place] [address] [address] [place] [address] Onesimo Spaulding DO 07/19/2025Results Follow-Up [facility] Part of [facility] [address] [place] [address] Katya Stephens, HORSE BREEDER - ADJUNCT HISTORY INSTRUCTOR Qdketln2307/18/2025 11:18 AM EDT - 07/18/2025 11:59 PM EDTHospital Encounter [facility] [address] [place] [address] Gross hematuria; Mixed incontinence; Incomplete bladder emptying Discharge Disposition: Home or Self Care07/18/2025 10:00 AM EDTOffice Visit [facility] [address] [place] [address] Angel Sow PA-C Incomplete bladder emptying (Primary Dx); Renal calculus; Gross hematuria; Mixed incontinence; Congestive heart failure, unspecified HF chronicity, unspecified heart failure type (HCC)07/18/2025Results Follow-Up [facility] [address] [place] [address] Angel Sow PA-C 07/12/2025 10:38 AM EDT - 07/14/2025 11:59 PM EDTHospital Encounter [facility] Radiology [address] [place] [address] Renal calculus Discharge Disposition: Home or Self Carefrom Last 3 Months Immunizations ImmunizationAdministration DatesNext DueCOVID-19, SPIKEVAX (Moderna), (age 12y+), IM, 50mcg/0.5mL07/29/2024Influenza, FLUAD, (age 65 y+), IM, Quadv, 0.5mL 08/20/2023,07/30/2022Influenza, FLUZONE High Dose, (age 65 y+), IM, Trivalent PF, 0.5mL4Pneumococcal, PCV20, PREVNAR 20, (age 6w+), IM, 0.5mL 10/02/2022 Family History Medical HistoryRelationNameCommentsOtherFatherCHFCancerOtherLeukemia, liver cancer, lung cancer, bladder cancerOtherOtherCHFRelationNameStatusCommentsFather DeceasedMotherAliveOther Social History Tobacco UseTypesPacks/DayYears UsedDateSmoking Tobacco: Every DayCigarettes0.5 59.8Started: 1966Smokeless Tobacco: Never Tobacco Cessation:Ready to Q uit: Yes; Counseling Given: Yes Comments:Smokes 6-8 cigs/day Alcohol UseStandard Drinks/WeekCommentsYes0 (1 standard drink = 0.6 oz pure alcohol)Beer 2-3 every 2 weeksCommentsNoSex and Gender InformationValue Date RecordedSex Assigned at BirthNot on fileLegal VmrMcumla77/12/2013 10:17 PM ESTGender IdentityNot on fileSexual OrientationNot on file Last Filed Vital Signs Vital SignReadingTime TakenCommentsBlood Ggukfhea092/7709 10:14 AM EDT Fkvpo4500 10:14 AM CWIPbqhvffevdh86.2 ??C (97.1 ??F)07/18/2025 10:14 AM EDTRespiratory Pela6956 1:00 PM EDTOxygen Cfzziklcma49%01/21/2023 1:00 PM EDTInhaled Oxygen Concentration--Xkzltv31.3 kg (219 lb)07/18/2025 10:14 AM LUFRlbhvh585.8 cm (5' 2.5 )06/08/2024 2:12 PM EDTBody Mass Index39.4208 2:12 PM EDT Plan of Treatment DateTypeDepartmentCare Team (Latest Contact Info)Ypggmdchoyx97/11/2025 8:00 AM ESTOffice Visit [facility] [address] [place] [address] Onesimo Spaulding, DO [address] [place] [address] annual f/u copd and asthma- phong pt09/07/2025 1:15 PM ESTOffice Visit [facility] Part of [address] [place] [address] Angel Sow PA-C [address] [place] [address] Kehinde [address] [place] [id number] 6-8w med check/ pvr04 2:20 PM EDTOffice Visit [facility] Part of [address] [address] Michi Quezada MD [address] [place] [address] Referral from Emmie with Congestive heart failureHealth MaintenanceDue Date Last DoneCommentsDepression Jmwwdz7312/06/1968Hepatitis C foqeiy4312/06/1974Lipids 12/06/19961801Uvoexfwvswn35/17/2002Colorectal Cancer Egdwfn3912/06/2001FIT/FOBT: Average risk2001Fecal-DNA (Cologuard): Average risk2001 Sigmoidoscopy/CT rsrzvanrsqsd13/17/2002Lung Cancer Screening &/or Counseling 2006Respiratory Syncytial Virus (RSV) or age 60 yrs+ (1 - Risk 60-74 years 1-dose series)2016Annual Wellness Visit (Medicare)06/29/2024 Breast cancer mycrbv1641Flu vaccine (#1)/, 07/29/2024, 08/20/2023, Additional history existsCOVID-19 Vaccine ( - 2023- season), 08/14/2022, 01/13/2022, Additional history exists DTaP/Tdap/Td vaccine (2 - Td or Tdap)DEXA (modify frequency per FRAX score)Jkvlhrpli35/26/2022Pneumococcal 0-49 years VaccineDiscontinued 2Pneumococcal 50+ years RjxtsniXfwolrgim64/14/2022hingles vaccine Jdxdqmlmr71/18/2025, 04/02/2025Hepatitis A vaccineAged OutNo longer eligible based on patient's age to complete this topicHepatitis B vaccineAged OutNo longer eligible based on patient's age to complete this topicHib vaccineAged Out No longer eligible based on patient's age to complete this topicMeningococcal (ACWY) vaccineAged OutNo longer eligible based on patient's age to complete this topicMeningococcal B vaccineAged OutNo longer eligible based on patient's age to complete this topicPolio vaccineAged OutNo longer eligible based on patient's age to complete this topic Procedures Procedure NamePriorityDate/TimeAssociated DiagnosisCommentsMEAS,POST-VOID RES,US,NON-ERVJJHDWpccwhn29/29/2025 10:31 AM EDT Mixed incontinence URINALYSIS WITH DEECAFLGDWNUjqpbqr99/29/2025 10:30 AM EDT Gross hematuria Mixed incontinence CULTURE, OUWFBQubcnxb20/29/2025 10:30 AM EDT Gross hematuria Mixed incontinence Incomplete bladder emptying XR ABDOMEN (KUB) (SINGLE AP VIEW)Tqbuulf9807/12/2025 10:49 AM EDT Renal calculus from Last 3 Months Results * Urinalysis with Microscopic (07/18/2025 10:30 AM EDT)ComponentValueRef Range Test MethodAnalysis TimePerformed AtPathologist SignatureColor, UAYellowYellow 07/18/2025 10:30 AM [facility] LABTurbidity UAClearClear 07/18/2025 10:30 AM [facility] LABGlucose, UrNEGATIVE NEGATIVE mg/dL07/18/2025 10:30 AM [facility] Bilirubin, PxphxZMPJFQPGRXYFYFVD86/29/2025 10:30 AM [facility] LABKetones, UrineNEGATIVENEGATIVE mg/dL07/18/2025 10:30 AM [facility] LABSpecific [place], UA1.0151.010 - 1.3347207/18/2025 10:30 AM [facility] LABUrine HgbNEGATIVENEGATIVE 07/18/2025 10:30 AM [facility] LABpH, Urine6.55.0 - 9.0 07/18/2025 10:30 AM [facility] LABProtein, UANEGATIVE NEGATIVE mg/dL07/18/2025 10:30 AM [facility] Urobilinogen, UrineNormal0.0 - 1.0 EU/dL07/18/2025 10:30 AM [facility] LABNitrite, XjhkbQOYFYOPXSFMBTWAX61/29/2025 10:30 AM [facility] LABLeukocyte Esterase, LdyudLNMALSOJMZMSRFHM84/29/2025 10:30 AM [facility] LABWBC, UA2 TO 50 - 5 /HPF07/18/2025 10:30 AM [facility] LABRBC, UA0 TO 20 - 2 /HPF07/18/2025 10:30 AM [facility] LABEpithelial Cells, UA0 TO 20 - 25 /HPF07/18/2025 10:30 AM [facility] LABSpecimen (Source) Anatomical Location / LateralityCollection Method / VolumeCollection Time Received TimeUrineURINE SPECIMEN / Tujlkyn9607/18/2025 10:30 AM EDT07/18/2025 11:57 AM EDT Narrative Authorizing ProviderResult TypeResult StatusKatya Stephens APRN - CNPURINE ORDERABLESFinal ResultPerforming OrganizationAddressCity/State/ZIP CodePhone Number [facility] [address] [phone] * Culture, Urine (07/18/2025 10:30 AM EDT)ComponentValueRef RangeTest Method Analysis TimePerformed AtPathologist SignatureSpecimen Description.CLEAN CATCH URINE07/18/2025 10:30 AM [facility] LABSpecial Requests Site: Urine07/18/2025 10:30 AM [facility] LABCultureNO SIGNIFICANT VUCDWN5707/18/2025 10:30 AM [facility] LABORATORIESSpecimen (Source) Anatomical Location / LateralityCollection Method / VolumeCollection Time Received TimeUrineURINE SPECIMEN / Yyixami7907/18/2025 10:30 AM EDT07/18/2025 11:57 AM EDT Narrative Authorizing ProviderResult TypeResult StatusKatya Stephens HORSE BREEDER - ADJUNCT HISTORY INSTRUCTOR MICROBIOLOGY - GENERAL ORDERABLESFinal ResultPerforming OrganizationAddress City/State/ZIP CodePhone Number [facility] [address] [place] [address], [facility] [phone] [employer] [address] [place] [address], [facility] [phone] * XR ABDOMEN (KUB) (SINGLE AP VIEW) (07/12/2025 10:49 AM EDT)Anatomical Region LateralityModalityAbdomenComputed RadiographySpecimen (Source)Anatomical Location / LateralityCollection Method / VolumeCollection TimeReceived Time 07/15/2025 12:43 PM EDT Impressions 07/15/2025 12:44 PM EDT No urinary calculus is seen. Narrative 07/15/2025 12:44 PM EDT EXAMINATION: ONE SUPINE XRAY VIEW(S) OF THE ABDOMEN07/12/2025 10:49 am COMPARISON: KUB 06/02/2024 HISTORY: ORDERING SYSTEM PROVIDED HISTORY: Renal calculus, FINDINGS: No definite urinary tract calculus is seen on this study. ??Multiple pelvic phleboliths. ??No bowel obstruction. ??Postop lumbar spine. Procedure Note Timi Jones MD - 07/15/2025 EXAMINATION: ONE SUPINE XRAY VIEW(S) OF THE ABDOMEN07/12/2025 10:49 am COMPARISON: KUB 06/02/2024 HISTORY: ORDERING SYSTEM PROVIDED HISTORY: Renal calculus, FINDINGS: No definite urinary tract calculus is seen on this study. Multiplepelvic phleboliths. No bowel obstruction. Postop lumbar spine. IMPRESSION: No urinary calculus is seen. Authorizing ProviderResult TypeResult StatusThshannon [facility] ORDERABLESFinal Result from Last 3 Months Insurance Advance Directives * Full Code (Latest Code Status on File) Date ActivatedDate InactivatedComments01/21/2023 8:09 AM01/21/2023 4:07 PM Care Teams Team MemberRelationshipSpecialtyStart DateEnd Date Emmie Daley, NADEEM - ADJUNCT HISTORY INSTRUCTOR PCP - General12/12/22
--- OUTSIDE RECORDS SUMMARY | 2025-08-22 15:36 | XMS_ITS | Clinical Summary ---
Author Organization [employer] s tem Address [id number] [address] [place] [address] Care Team Providers Care Psychology Lecturer Name Role Phone Unavailable Primary Care Provider Unavailabl e Allergies Active AllergyReactionsCriticalityNoted DateCommentsBee Venom Protein (Honey Bee)02/20/20226262EojqgphmluNodym94/14/4236MxmdyeqvVlhcFsy24/10/2013 Medications MedicationSigDispense QuantityRefillsLast FilledStart DateEnd DateStatus nitroglycerin (NITROSTAT) 0.4 MG SL tablet as directed SublingualActive albuterol (PROVENTIL HFA;VENTOLIN HFA) 90 mcg/actuation inhaler Indications:Chronic bronchitis with emphysema ([facility]-HCC)Inhale 2 puffs every 4 (four) hours as needed for wheezing or shortness of breath. 18 g 603/4Active losartan (COZAAR) 100 mg tablet Indications:Benign essential HTNTake 1 tablet (100 mg total) by mouth in the morning. 90 tablet 301/706844/6Active diclofenac (VOLTAREN) 75 mg EC tablet Indications:Arthritis, multiple joint involvementTake 1 tablet (75 mg total) by mouth in the morning and 1 tablet (75 mg total) before bedtime. TAKE1 TABLET BY MOUTH IN THE MORNING AND 1 TABLET BEFORE BEDTIME. For pain.. 180 tablet 5Active gabapentin (NEURONTIN) 100 mg capsule Indications:FibromyalgiaTAKE 1 CAPSULE BY MOUTH EVERY MORNING AND AFTERNOON 180 capsule 102//5Active gabapentin (NEURONTIN) 300 mg capsule Indications:FibromyalgiaTake 1 capsule (300 mg total) by mouth nightly. 90 capsule 5Active levothyroxine (SYNTHROID, LEVOTHROID) 25 MCG tablet Indications:Acquired hypothyroidismTake 1 tablet (25 mcg total) by mouth in the morning. 90 tablet 5Active metoprolol tartrate (LOPRESSOR) 25 mg tablet Indications:Benign essential HTNTAKE 1 TABLET IN THE MORNING AND 1 TABLET BEFORE BEDTIME Strength: 25 mg 180 tablet 5Active spironolactone (ALDACTONE) 25 mg tablet Indications:Benign essential HTNTake 1 tablet (25 mg total) by mouth in the morning. 90 tablet /1616026Active traZODone (DESYREL) 150 mg tablet Indications:Primary insomniaTake 1 tablet (150 mg total) by mouth nightly. 90 tablet 5Active TRELEGY ELLIPTA 100-62.5-25 mcg blister with device Indications:Chronic bronchitis with emphysema (CMS-HCC)INHALE 1 PUFF BY MOUTH EVERYDAY *RINSE MOUTH AFTER USE* Strength: 100-62.5-25 mcg 28 each 605Active traMADoL (ULTRAM) 50 mg tablet Indications:Arthritis, multiple joint involvement,FibromyalgiaTake 1 tablet (50 mg total) by mouth every 6 (six) hours as needed for pain. 40 tablet 5Active Active Problems ProblemNoted DateDiagnosed DateCervical spondylosis without sgkuauvdzf85/01/2023 Spondylosis without myelopathy or radiculopathy, lumbar pkzjkt8708/20/2023one cyst05/23/2023 Overview (08/20/2023): In January 2013 reports 3 year history of slowly enlarging mass in the mouth that has become more bothersome recently, because her upper dentures no longer fit. She reports painin the area, but no trismus and no weight loss. 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 Intermittent sebjqdyknobk31/04/2023 Overview (08/20/2023): Last Assessment & Plan: Stable with metoprolol Tobacco edxybrzask54/04/2023 Overview (08/20/2023): Last Assessment & Plan: Tobacco use is unchanged- pt is not willing to quit smoking at this time Renal uewqhtuo36/03/2023rthritis of left knee11/11/2022hronic pain disorder 11/11/20220760Etugkktlzyta11/23/2023Lumbar post-laminectomy ywnrdapn27/23/2023 Chondromalacia patellae of left knee11/11/2022Internal derangement of left knee 11/11/2022Sensorineural hearing loss (SNHL) of left ear with unrestricted hearing of right ear11/11/2022Obesity, hiwimp2611/11/2022eafness in left ear 04/01/2022 Overview (04/01/2022): lifelong Uxxiffz2404/01/2022 Overview (04/01/2022): Last Assessment & Plan: I spent 5 minutes counseling-encouraging her in smoking cessation. Mitral valve bpwaqwidzashy11/26/2021Graves' dxmgdzc0705/25/2020Essential nrnghilgkyxz87/22/2020Atypical chest pain05/19/2018 Overview (08/20/2023): Last Assessment & Plan: Stable ADD (attention deficit disorder)02/06/20123283Aldbwmdd73/19/2012 Resolved Problems ProblemNoted DateDiagnosed DateResolved DatePanlobular xowxorpqi04/22/2024 5Chronic bronchitis with kqlfaanxe31 Overview (04/01/2022): Last Assessment & Plan: She has a 40-year smoking history. At the time of my evaluation, her peak exhalatory flow was 280 L/minute and her transdermal arterial pulse oximetry while breathing ambient air at rest was 98% whenshe was seated. Additional pulmonary testing is not indicated at this time. I instructed her to inhale her tiotropium (Spiriva) every morning, including on the morning of surgery. In the postoperative period continue to treat her with incentive spirometry hourly when awake and continue tiotropium inhaled QAM. Treat her with additional inhaled bronchodilators and supplemental inhaled oxygen if clinically indicated. Immunizations ImmunizationAdministration DatesNext DueInfluenza Vaccine, Quadrivalent, Fcgamzxfyr30/01/2023,07/30/2022Influenza, Trivalent, Npvnvbrkdk22/22/2024 Pneumococcal Fooquuvdd23/14/2022neumococcal Conjugate 20-ilbrac7710/02/2022 Family History Medical HistoryRelationNameCommentsCancerBrotherDiabetesDaughter 1Kidney failure Daughter 1Heart diseaseFatherLeukemiaFatherCancerMotherHeart diseaseMotherKidney diseaseMotherRelationNameStatusCommentsBrotherDeceasedDaughter 1AliveDaughter 2 AliveFatherDeceasedMotherDeceased Social History Tobacco UseTypesPacks/DayYears UsedDateSmoking Tobacco: Every DayCigarettes0.556 Smokeless Tobacco: Never Tobacco Cessation:Ready to Q uit: Not Asked; Counseling Given: Not Answered Alcohol UseStandard Drinks/WeekCommentsYes0 (1 standard drink = 0.6 oz pure alcohol)on weekends, not often.PHQ-2AnswerDate RecordedTotal Tjfzd252 ChildcareAnswerDate EvetphscTzcznkbwhYpdbemu11/12/2019EmploymentAnswerDate HtidxxmaDzvsrxvqjpGeusiyq18/12/2019Hunger ScreeningAnswerDate RecordedWithin the past 12 months we worried whether our food would run out before we got money to buy more.Never True12/16/2024Within the past 12 months the food we bought just didn't last and we didn't have money to get more.Never True12/16/2024 CommentsUnknownSex and Gender InformationValueDate RecordedSex Assigned at Not on fileLegal ZouVirplj35/03/2017 10:24 AM ESTGender IdentityNot on file Sexual OrientationNot on file Last Filed Vital Signs Vital SignReadingTime TakenCommentsBlood Uunicckc558/8002/ 1:34 PM EST Tsfzl8402/27/2025 1:34 PM FRCOsatysbfmlx49.4 ??C (97.6 ??F)12/16/2024 1:34 PM ESTRespiratory Npgs675612/16/2024 1:34 PM ESTOxygen Hpkwqykvmh67%12/16/2024 1:34 PM ESTInhaled Oxygen Concentration--Wiezua24.5 kg (212 lb 11.2 oz)12/16/2024 1:34 PM COHUnchpu080 cm (5' 2.99 )12/16/2024 1:34 PM ESTBody Mass Index37.69 12/16/2024 1:34 PM EST Plan of Treatment Health MaintenanceDue DateLast DoneCommentsTobacco Bknquzjark54/17/1957DTaP,Tdap and Td Vaccines (1 - Tdap)12/06/19759869Luvyrbmqdju56/17/2002Zoster (Shingles) Vaccine (1 of 2)2006RSV ( or age 60+ yrs) (1 - Risk 60-74 years 1- dose series)12/06/20167607Krorleygy36OVID-19 Vaccine ( - season)/07/2024, 08/14/2022, 01/13/2022, Additional history exists Influenza Isaklzb23/, 07/29/2024, 08/20/2023, Additional history existsMedicare Annual Wellness Visit, 08/20/2023, 07/30/2022dult BMI Follow Up [facility] BMI Screening Depression Vvofoyelf05Fall Risk Screening Tobacco Dqdhgblmc17 Medical Devices Not on file Procedures Procedure NamePriorityDate/TimeAssociated DiagnosisCommentsMAMM SCREENING BILATERAL W PUIGdyrewd15/25/2022 Encounter for screening mammogram for malignant neoplasm of breast from Last 3 Months or Most Recently Relevant to Health Maintenance Results * Mammography screening bilateral with CAD (08/13/2022)Anatomical Region LateralityModalityBreastBilateralMammographySpecimen (Source)Anatomical Location / LateralityCollection Method / VolumeCollection TimeReceived Time 08/13/2022 Narrative Authorizing ProviderResult TypeResult StatusValeroger Daley MILIEU TECHNICIAN-CNPIMG MAMMOGRAPHY ORDERABLESFinal Result from Last 3 Months or Most Recently Relevant to Health Maintenance Insurance
--- OUTSIDE RECORDS SUMMARY | 2025-08-22 15:36 | XMS_ITS | Clinical Summary ---
Author Organization [facility] Address [address] [place] [address] Care Team Providers Care Boat Driver Name Role Phone Emmie Daley MD Primary Care Provider [phone] Allergies Active AllergyReactionsCriticalityNoted UihgQvpjndynOmhhoxbzFshtNbk39/10/2013ee Venom Protein (Honey Bee)VzwxguketuvZbpy68/10/2013 Other reaction(s): Not available HdlwlptshqAyqjf17/14/2023 Medications MedicationSigDispense QuantityRefillsLast FilledStart DateEnd DateStatus albuterol 90 mcg/actuation inhaler TAKE TWO PUFFS BY MOUTH EVERY 6 HOURS NEEDEDActive EPINEPHrine 0.3 mg/0.3 mL auto-injector USE DIRECTED FOR BEE HHJQGE2501/16/2023ctive fzofknztlqy-itpjvdqxl-lqfrxdto 100-62.5-25 mcg blister with device INHALE 1 PUFF BY MOUTH EVERYDAY *RINSE MOUTH AFTER USE*03/03/2023ctive metoprolol tartrate (Lopressor) 25 mg tablet Take 1 tablet by mouth in the morning and at bedtime.06/14/2021ctive nitroglycerin (Nitrostat) 0.4 mg SL tablet DISSOLVE 1 TABLET UNDER TONGUE NEEEDEDActive traMADol (Ultram) 50 mg tablet TAKE 1 TABLET BY MOUTH EVERY 8 HOURS NEEDED FOR PAIN FOR UP TO 5 DAYS. 01/14/2023ctive traZODone (Desyrel) 150 mg tablet Take 1 tablet by mouth at bedtime.10/31/2022ctive gabapentin (Neurontin) 100 mg capsule Take 100 mg by mouth in the morning and at bedtime.Active gabapentin (Neurontin) 300 mg capsule Take 300 mg by mouth at bedtime.Active FLUoxetine (PROzac) 10 mg capsule Take 10 mg by mouth in the morning.Active diclofenac (Voltaren) 75 mg EC tablet Take 75 mg by mouth in the morning and at bedtime. Do not crush, chew, or split. Active propylthiouracil (PTU) 50 mg tablet Take 50 mg by mouth in the morning, at noon, and at bedtime.Active spironolactone (Aldactone) 25 mg tablet Indications:Nonrheumatic mitral valve regurgitation,Benign essential HTNTake 1 tablet (25 mg) by mouth in the morning. 90 tablet 308ctive lisinopril 10 mg tablet Indications:Uncontrolled hypertensionTake 1 tablet (10 mg) by mouth in the morning. 30 tablet ctive Additional Information Patient not taking.Reported on 11/17/2023 losartan (Cozaar) 25 mg tablet Indications:Benign hypertensive heart disease with heart failure (CMS/HCC)Take 1 tablet (25 mg) by mouth once daily as directed. 90 tablet ctive Active Problems ProblemNoted DateDiagnosed DateUncontrolled hghpcelcqkop73/14/2023 Assessment & Plan (06/10/2023 11:26 AM EDT): [...] daily for better HTN management Mitral valve hdqbjwoniepzs73/04/2023 Overview (05/23/2023): Mild to mod per 04/26/21 ECHO Assessment & Plan (06/10/2023 11:26 AM EDT): Echo reviewed with pt and noted Mod MV regurg Assessment & Plan (05/23/2023 1:00 PM EDT): Repeat echo ordered in light of SOB with exertion and MR noted on prior echo Intermittent ppwkogjaqsvh72/04/2023 Assessment & Plan (05/23/2023 1:01 PM EDT): Stable with metoprolol Atypical chest pain05/23/2023 Assessment & Plan (05/23/2023 1:00 PM EDT): Stable Benign essential HTN05/23/2023 Assessment & Plan (06/10/2023 11:25 AM EDT): [...] and electrolytes and pt voiced understanding Tobacco byutyojmbe66/04/2023 Assessment & Plan (05/23/2023 1:01 PM EDT): Tobacco use is unchanged- pt is not willing to quit smoking at this time Uncomplicated alcohol cfncwxnmua81/04/2023 Assessment & Plan (05/23/2023 1:01 PM EDT): F/u with PCP Bone cyst Overview (05/23/2023): In January 2013 reports 3 year history of slowly enlarging mass in the mouth that has become more bothersome recently, because her upper dentures no longer fit. She reports pain in the area, but no trismus and no weight loss. 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 History of cervical Overview (05/23/2023): resected Renal csdbzkvz89rthritis of left knee Internal derangement of left kneehondromalacia patellae of left kneehronic pain fmphphme36 Xumkgjbrlswf25Lumbar post-laminectomy rwegialu63/23/2023 05/23/2023Obesity, bqzdvl53Sensorineural hearing loss (SNHL) of left ear with unrestricted hearing of right earhronic bronchitis with vqlwiyyuw61 Overview (05/23/2023): Last Assessment & Plan: She [...] if clinically indicated. Deafness in left ear Overview (05/23/2023): lifelong lifelong Yncazhm11 Overview (05/23/2023): Last Assessment & Plan: I spent 5 minutes counseling-encouraging her in smoking cessation. Last Assessment & Plan: I spent 5 minutes counseling-encouraging her in smoking cessation. Graves' hdemhgj93Essential Chest painDD (attention deficit disorder)02/06/2012 05/23/20235778Aufwalgq91Tobacco abuse Immunizations ImmunizationAdministration DatesNext DueInfluenza, Seasonal, Quadrivalent, Gvjumopgpq24/11/2022Moderna SARS-CoV-2 Gnpwqqtlwms08/27/2022neumococcal Conjugate PCV Family History Medical HistoryRelationNameCommentsCoronary artery diseaseBrotherCoronary artery diseaseFatherHypertensionFathercvaFatherCoronary artery diseaseMotherDiabetes MotherHypertensionMotherRelationNameStatusCommentsBrotherFatherMother Social History Tobacco UseTypesPacks/DayYears UsedDateSmoking Tobacco: Every DayCigarettes Smokeless Tobacco: Never Tobacco Cessation:Ready to Q uit: Not Asked; Counseling Given: Not Answered Alcohol UseStandard Drinks/WeekCommentsYes0 (1 standard drink = 0.6 oz pure alcohol)moderateUT Safety & EnvironmentAnswerDate RecordedFear of Current or Ex-PartnerNot on file12/11/2023Emotionally AbusedNot on file12/11/2023hysically AbusedNot on file02/22/2024Sexually AbusedNot on file4Physically or Sexually AbusedNot on file12/11/2023CommentsUnknownSex and Gender InformationValueDate RecordedSex Assigned at BirthNot on fileLegal SexFemale 04/17/2022 11:52 PM EDTGender IdentityNot on fileSexual OrientationNot on file Last Filed Vital Signs Vital SignReadingTime TakenCommentsBlood Wzsncpsn484/72011/17/2023 10:32 AM EST Pczes595311/17/2023 10:32 AM ESTTemperature--Respiratory Rate--Oxygen Saturation 94%11/17/2023 10:32 AM ESTInhaled Oxygen Concentration--Snxzvg36.1 kg (203 lb) 11/17/2023 10:32 AM UEVEvdkqc580.8 cm (5' 2.5 )11/17/2023 10:32 AM ESTBody Mass Index36.54011/17/2023 10:32 AM EST Plan of Treatment Health MaintenanceDue DateLast DoneCommentsCT Bxisqsmtvhrs85/17/1957Colonoscopy 1955Colorectal Cancer Kztchxqai05/17/1957FIT-DNA1956FIT1956 FOBT1955Medicare Annual Wellness (AWV)1955 0892Udalpxnzdhmiq57/17/1957 Depression Psrnolvzx82/17/1969Adult Msbapal6912/06/1978Zoster Vaccines (1 of 2) 2006Fall Risk Maawyjxeb72/17/8465Aydzxakla59, 08/13/2022 COVID-19 Vaccine ( season), 01/13/2022, 01/13/2022, Additional history existsInfluenza Vaccine (#1)511/10/2022, 07/30/2022neumococcal Vaccine: 50+ YnxrjSwtrslgkl08/14/2022HIB VaccinesAged Out No longer eligible based on patient's age to complete this topicHPV VaccinesAged OutNo longer eligible based on patient's age to complete this topicIPV Vaccines Aged OutNo longer eligible based on patient's age to complete this topic Meningococcal B VaccineAged OutNo longer eligible based on patient's age to complete this topicMeningococcal VaccineAged OutNo longer eligible based on patient's age to complete this topicRotavirus VaccinesAged OutNo longer eligible based on patient's age to complete this topic Insurance Care Teams Team MemberRelationshipSpecialtyStart DateEnd Emmie Daley MD PCP - GeneralFamily Medicine05/23/23
--- OUTSIDE RECORDS SUMMARY | 2025-08-22 15:37 | XMS_ITS | Patient Health Record ---
Author Organization [facility] [place] Address [address] [place] [address] Care Team Providers Care Stone Cleaner Name Role Phone Jairo Walker Primary Care Provider UnavailShakir Villa Unavailable [phone] Onesimo Spaulding Unavailable [phone] Allergies No Known Allergies Results Component Value Reference Range Notes XR ankle RT min 3V (Not yet reviewed by provider) Interpretation: Performing Lab: Notes/Report: Source Facility: [place] [address] XRay Report Signed Patient: FRANKO NUNEZ MR#: [id number] : 1955 Acct:[id number] Age/Sex: 68 / F ADM Date: 11/22/24 Loc: RAD Attending Dr: Henry Wong Ordering Physician: Henry Wong Date of Service: 11/22/24 Procedure(s): XR ankle RT min 3V Accession Number(s): [id number] cc: JAIRO WALKER ; Henry Wong [place] [id number] Patient Name: FRANKO NUNEZ MRN: [id number] date: 1955 Sex: F Assigned Patient Location: RAD Current Patient Location: RAD Accession/Order Number: [id number] Exam Date: 11/22/2024 12:00 Report Date: 11/25/2024 [...] Dictated By: Xavier Gonzales M.D. Signed By: 11/25/24950 DD/ 7 TD/TT: Special Education Assistant: Reason For Referral Reason referral for aundrea We have an old system that [facility] 1 Other instability, r ight ankle (M25.371) Referral Organization [facility] [place] (PODIATRY) Referring Provider First Name Shakir Referring Provider Last Name Gregoria Referring Provider Speciality Podiatry Referred Provider Aundrea Burden Referred Provider Specialty Podiatry Referral Priority Routine Medications Medication SIG (Take, Route, Frequency, Duration) Notes Start Date End Date Status Spironolactone 25 MG Oral; Duration: 90 Days ActiveAlbuterol Sulfate HFA 108 (90 Base) MCG/ACT 2 puffs as needed for SOB Inhalation Q4H; Duration: 90 days Dispense #3 inhalers ActiveLisinopril 2.5 MG1 tablet Orally HSActiveMetoprolol Tartrate 25 MGOral; Duration: 90 DaysActiveFLUoxetine HCl 10 MGTAKE 1 CAPSULE (10 MG TOTAL) BY MOUTH NIGHTLY. Oral; Duration: 90 DaysActiveGabapentin 100 MGOral; Duration: 90 Days ActiveTrelegy Ellipta 100-62.5-25 MCG/ACT 1 puff Inhalation Once a day; Duration: 90 days Rinse after use ; Dispense #3 inhalers ActiveDiclofenac Sodium 75 MGOral; Duration: 90 DaysActiveGabapentin 300 MG1 capsule Orally Once a dayActiveLevothyroxine Sodium 50 MCGOral; Duration: 90 DaysActiveLisinopril 10 MG1 tablet Orally AM; Duration: 30 daysActive Immunizations Vaccine Route Administration Date Status Comme nts Flu, Fluad (46471) 65 yrs+, single-dose syringe (8666-0530) Unknown 07/30/2022 Administered Flu, Fluad (31047) 65 yrs+, single-dose syringe (8925-3961)Ojjpfua8308/20/2023 AdministeredPneumococcal (Prevnar 20)Ucihpiw3410/02/20227843ObjznlqowsgaJDES-UWA-7 (COVID 19) bivalent 30 mcg/0.3 ml kezbLxbhadk85/26/2022Administered Social History Tobacco Use: Social History Observation Description Date Details (start date - stop date) Current Smoker NA - NA Tobacco Use/Smoking Question Answer Notes Patient is a current every day smoker Additional Findings: Tobacco UserLight cigarette smoker ((1-9 cigs/day)Tobacco Control (Standard) Question Answer Notes Tobacco use: Current every day smoker Additional Findings: Tobacco userModerate cigarette smoker (10-19 cigs/day) Problems Problem Type SNOMED Code ICD Code Onset Dates Problem Status W/U Status Risk Notes Problem Obesity (589006227) Obesity, unspecified (E66.9) ActiveconfirmedProblemCentrilobular emphysema (63565450)Centrilobular emphysema (J43.2)ActiveconfirmedProblemLong-term current use of inhaled steroid (514304027)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 (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) use of inhaled steroids (Z79.51)Activeconfirmed ProblemMental disorder caused by drug (241537649)Cigarette nicotine dependence with nicotine-induced disorder (F17.219)ActiveconfirmedProblemMultiple pulmonary nodules (139064712)Multiple pulmonary nodules (R91.8)ActiveconfirmedProblemBody mass index 35.00 to 39.99 (841593673565191)Body mass index [BMI] 37.0-37.9, adult (Z68.37)Activeconfirmed Encounters Encounter Location Date Provider Diagnosis [facility] (PODIATRY) [address] [place] [address] [place] [address] 11/23/2024 Shakir Kinney Displaced fracture of lateral malleolus of right fibula, sequela S82.61XS ; Other instability, right ankle M25.371 ; Strain of muscle(s) and tendon(s) of peroneal muscle group at lower leg level, right leg, initial encounter S86.311A ; Other specified joint disorders, right ankle and foot M25.871 ; Cigarette nicotine dependence with nicotine-induced disorder F17.219 and Right ankle pain M25.571 [facility] [place] [address] [place] [address] 09/13/2024 Onesimo Spaulding [facility] (PODIATRY)[address] [place] [address] [place] [address]/03/2025[facility] [address] [place] [address]/07/2025Onesimo SpauldingCentrilobular emphysema J43.2 Assessments Encounter Date Diagnosis (ICD Code) Assessment Notes Treatment Notes Treatment Clinical Notes Section Notes 11/23/2024 Displaced fracture o f lateral malleolus of right fibula, sequela (ICD-10 - S82.61XS) Patient was seen and evaluated. Patient's condition was provided and all questions were answered tosatisfaction. I reviewed x-rays, MRI and physical exam [...] significant cardiovascular disease. She recently seen her material controller but related that she is going to see a new material controller at the end of the month. She will require cardiac clearance and possibly pulmonary clearance.Postoperative course was reviewed and the patient will likely be: Nonweightbearing for 1 to 3 weeks followed byprotected weightbearing in cam boot Patient will be: outpatient postoperatively Proposed anesthesia: General And regional Proposed implants: Medline 3.3 mm suture anchors 11/23/2024Other instability, right ankle (ICD-10 - M25.371)04/28/2025 Centrilobular emphysema (ICD-10 - J43.2)11/23/2024Strain of muscle(s) and tendon(s) of peroneal muscle group at lower leg level, right leg, initial en counter (ICD-10 - S86.311A)11/23/2024Other specified joint disorders, right ankle and foot (ICD-10 - M25.871)11/23/2024igarette nicotine dependence with nicotine-induced disorder (ICD-10 - F17.219)11/23/2024Right ankle pain (ICD-10 - M25.571) Plan Of Treatment Pending Test Test Name Order Date XR Ankle RT (3 views) * (161) 11/23/2024 XR ankle RT min 3V 11/25/2024 Future Test Test Name Order Date CT Chest Low Dose for Screening* 025 Insurance Providers Payer Name Payer Address Payer Phone Subscriber Number Group Number Insured Name Patient Relationship to Insured Coverage Start Date Coverage End Date [facility] [employer] [address] [place] [address] [id number] Franko Nunez Self - patient is the insured 5 Medical (General) History Medical History History ICD Code Centrilobular emphysema J43.2 Cigarette nicotine dependence with nicot ine-induced disorder F17.219 Multiple pulmonary nodules R91.8 group home (current) use of inhaled stero ids Z79.51 Graves' disease E05.00 HTN (hypertension) I10 Mitral valve regurgitation I34.0 PAD (peripheral artery disease) I73.9 Osteoarthritis M19.90 History of cervical cancer Z85.41 Surgical History Surgery Date(Month/Year) right knee arthroscopy hysterectomytonsillectomyback surgeryappendectomyright foot surgeryureteral stentlithotripsy
--- OUTSIDE RECORDS SUMMARY | 2025-08-22 15:38 | XMS_ITS | Clinical Summary ---
Author Organization [facility] Address [address] [place] [address] Care Team Providers Care Programming Engineer Name Role Phone Ruy Covarrubias MD Unavailable [phone] Allergies Active AllergyReactionsCriticalityNoted DateCommentsBee VenomAnaphylaxis 01/27/2013*Paper XkicAnup16/10/2013 Medications MedicationSigDispense QuantityRefillsLast FilledStart DateEnd DateStatus Respiratory Therapy Supplies (PATRICE PD) XX DANIELLE Active Tiotropium [place] Monohydrate (SPIRIVA HANDIHALER IN) take 1 Cap by inhalation daily every morning. On 01/20/2013 reports not taking in past month.Active albuterol (VENTOLIN HFA) 108 (90 BASE) MCG/ACT IN AERS take 1 Puff by inhalation 4 times daily as needed. On 01/20/2013 reports not in prior 3 months.Active lisinopril 2.5 MG PO TABS take 2.5 mg by mouth daily.Active Active Problems ProblemNoted DateDiagnosed DateDeafness in left ear Overview (01/20/2013): lifelong Bone [...] cancer Overview (01/20/2013): resected Family History Medical HistoryRelationNameCommentsCoronary Artery DiseaseBrother 5CABGCancer FatherleukemiaHeart FailureFatherDiabetesMotherRelationNameStatusCommentsBrother 7Jdsuu95 CABG age 59 (01/20/2013)Brother 0Cscrn37 (01/20/2013)Brother 2Kgdhx73 (01/20/2013)Brother 4Gkizp53 (01/20/2013)Brother 5Daughter 5Ltgmy20 (01/20/2013) Daughter 0Fnrjf63 (01/20/2013)FatherDeceased (Age 72)fimdcbwtRmdpciChhqk67 DM age 40, born with one lung (01/20/2013)AqdpotBsmqj65 (01/20/2013) Social History Tobacco UseTypesPacks/DayYears UsedDateSmoking Tobacco: Every DayCigarettes0.547 Smokeless Tobacco: Never Tobacco Cessation:Ready to Q uit: No; Counseling Given: Yes Alcohol UseStandard Drinks/WeekCommentsYes2.5 (1 standard drink = 0.6 oz pure alcohol)On 01/20/2013 reports drinking 4-5 beers once a week, but several months in a row without.CommentsNoSex and Gender InformationValueDate Recorded Sex Assigned at BirthNot on fileLegal NtpOnaakd72/18/2013 2:39 PM EDTGender IdentityNot on fileSexual OrientationNot on fileOccupationIndustryJob Start Date Job End DateNot on fileNot on fileNot on fileNot on file Last Filed Vital Signs Vital SignReadingTime TakenCommentsBlood Qypteuld511/5803 12:52 PM EDT Soabl5668 12:52 PM CZSXwoiwcbierk99.8 ??C (98.2 ??F)01/11/2014 12:52 PM EDTRespiratory Wrhp989801/11/2014 12:52 PM EDTOxygen Dcyfebxuxm54%09/20/2013 5:45 PM ESTInhaled Oxygen Concentration--Pybvqg40.2 kg (185 lb 11.2 oz)01/11/2014 12:52 PM ZSBXhlyyp557.3 cm (5' 3.5 )09/20/2013 8:40 AM ESTBody Mass Index32.38 09/20/2013 8:40 AM EST Plan of Treatment Health MaintenanceDue DateLast DoneCommentsDEXA SCAN QINYUQDTZI59/17/1956 HEPATITIS C VIRUS LCYGEZNQT48/17/4128GKHGPVO77/17/1957PNEUMOCOCCAL VACCINE SERIES (1 of 2 - PCV)1975TDAP (ADULT)1975CERVICAL CANCER SCREENING TMWJMOXYPD97/17/1978LIPID ZDIQOZOAT09/17/1997COLORECTAL CANCER SCREENING MKYWWMPXXT02/17/2002RSV VACCINE (1 - Risk 50-74 years 1-dose series)2006 ZOSTER (SHINGLES) VACCINE (1 of 2)2006MAMMOGRAM SCREENING DISCUSSION /2COVID-19 VACCINE ( season)/, 01/13/2022, 07/14/2021, Additional history existsINFLUENZA VACCINE (#1) /08/2022HEP B VACCINEAged OutNo longer eligible based on patient's age to complete this topic Advance Directives For more information, please contact: [phone] (7:30 AM - 6PM [facility], Friday-Friday) * Full Code (Latest Code Status on File) Date ActivatedDate QofzhgqiphuOunkktan44/11/2012 8:32 AM09/20/2013 8:27 PM * Full Code Date ActivatedDate InactivatedComments01/27/2013 8:12 AM01/27/2013 2:26 PM Care Teams Team MemberRelationshipSpecialtyStart DateEnd Date Ruy Covarrubias MD PCP - Referring 2Fxqfosllrctcyu7/3/13
[2025-08-22 15:39] LABS: Hematocrit 41.5 % (36.0-48.0); Hemoglobin 14.1 g/dL (12.0-16.0); Immature Granulocytes Abs Auto 0.01 10^3/uL (0.00-0.03); Immature Granulocytes Pct Auto 0.2 % (0.0-0.5); Lymphocytes Absolute Auto 2.0 10^3/uL (1.2-3.8); Mean Corpuscular HGB Conc 34.0 g/dL (29.9-35.2); Mean Corpuscular Hemoglobin 30.1 pg (26.7-34.0); Mean Corpuscular Volume 88.5 fL (81.0-99.0); Platelet Count 221 10^3/uL (150-450); Red Blood Count 4.69 10^6/uL (4.20-5.40); White Blood Count 6.6 10^3/uL (4.0-11.0)
--- OUTSIDE RECORDS SUMMARY | 2025-08-22 15:41 | XMS_ITS | CCD ---
Author Organization [facility] Care Team Providers Care Network Manager Name Role Phone RANDAL ORTIZ Attending Unavailable Daley AUDIT CONSULTANT - ORAL SURGERY PHYSICIAN, Jairo J Primary Care [facility] ider BRAULIO LASSITER Consulting Unavailable AJIT ., JERI Attending Unavailable AJIT ., JERI Admitting Unavailable DALEY, JAIRO Primary Care Unavailable AJIT ., JERI Consulting Unavailable JANEEN POOLE Consulting Unavailable AMALIA ., FAVIO Attending Unavailable AMALIA .FAVIO Admitting Unavailable DALEY, JAIRO Primary Care Unavailable [...] Attending Unavailable HOMERO, SUNNY Laws Admitting Unavailable HIGHLSUNNY LERNER Consulting Unavailable Unavailable Primary Care Provider Unavailshabbir e JAIRO DALEY Referring Unavailable DALEY, JAIRO J Primary Care Unavailable PRANAV TRINIDAD Attending Unavailable Daley AUDIT CONSULTANT - ORAL SURGERY PHYSICIAN, Jairo J Primary Care Prov ider CRISTOBAL OWENS Attending Unavailable JAIRO DALEY Referring Unavailable CRISTOBAL OWENS Attending Unavailable CRISTOBAL OWENS Attending Unavailable CRISTOBAL OWENS Attending Unavailable CRISTOBAL OWENS Attending Unavailable MD Wanda Hagan Attending Provider Edi, ALLERGIST-C Jairo Cabrera Primary Care Provider Jairo Spears Unavailable [phone] Unallocated , Shania Provider Primary Care Provi nabeel Edi AUDIT CONSULTANT-Jairo PULIDO Primary Care Provid er Edi ALLERGIST-CJairo Primary Care Provider Hay Rea MD Attending Provider JAIRO DALEY Attending Unavailable DALEYRIAJAIRO J Referring Unavailable DALEY, JAIRO J Primary Care Unavailable DALEYJAIRO Attending Unavailable DALEYRIAJAIRO J Referring Unavailable DALEY, JAIRO Rick Primary Care Unavailable DALEY, JAIRO Rick Attending Unavailable DALEY, [...] DALEY, JAIRO J Primary Care Unavailable Daley ALLERGIST-C, Jairo Cabrera Primary Care Provider Hay Rea MD Attending Provider Hay Rea MD Referring Provider Daley AUDIT CONSULTANT-ORAL SURGERY PHYSICIAN, Jairo Oscar Primary Care Unavailable Imtiaz Garvin Attending Unavailable Daley AUDIT CONSULTANT-ORAL SURGERY PHYSICIAN, Jairo Moore Primary Care Unavailable Bertram DPM, Brant Sun Attending Unavailab le Daley AUDIT CONSULTANT-ORAL SURGERY PHYSICIAN, Jairo Burtonan Primary Care Unavailable Bertram DPM, Brant Sun Attending Unavailab le Bertram DPM, Brant Sun Admitting Unavailab le Geckle AUDIT CONSULTANT-ORAL SURGERY PHYSICIAN, Jayda Patel Attending Unavailable Daley AUDIT CONSULTANT-ORAL SURGERY PHYSICIAN, Jairo Oscar Primary Care Unavailable Daley AUDIT CONSULTANT-ORAL SURGERY PHYSICIAN, Jairo Oscar Primary Care Unavailable Bertram DPM, Brant Sun Attending Unavailab le Laudick PA-C, Nat Zaman Attending Unava ilable Daley AUDIT CONSULTANT-ORAL SURGERY PHYSICIAN, Jairo Oscar Primary Care Unavailable Daley AUDIT CONSULTANT-ORAL SURGERY PHYSICIAN, Jairo Oscar Primary Care Unavailable Imtiaz Garvin Attending Unavailable Daley AUDIT CONSULTANT-ORAL SURGERY PHYSICIAN, Jairopaulina Moore Primary Care Unavailable Bertram DPM, Brant Sun Attending Unavailab le Bertram DPM, Brant Sun Attending Unavailab le Daley AUDIT CONSULTANT-ORAL SURGERY PHYSICIAN, Jairo Moore Primary Care Unavailable Bertram DPM, Brant Sun Attending Unavailab le Daley AUDIT CONSULTANT-ORAL SURGERY PHYSICIAN, Jairo Moore Primary Care Unavailable Bertram DPM, Brant Sun Attending Unavailab le Daley AUDIT CONSULTANT-ORAL SURGERY PHYSICIAN, Jairo Moore Primary Care Unavailable Imtiaz Garvin Attending Unavailable Bertram DPM, Brant Sun Attending Unavailab le Bertram DPM, Brant Sun Attending Unavailab le Daley AUDIT CONSULTANT-ORAL SURGERY PHYSICIAN, Jairo Moore Primary Care Unavailable Daley ALLERGIST-C, Jairo Cabrera Primary Care Provider Hay Rea MD Attending Provider Chantale Cardona MD Attending Provider [phone] Jairo Daley Primary Care Unavailable Chantale Cardona Admitting Unavailable Chantale Cardona Attending Unavailable Jairo Daley Primary Care Unavailable Koromia, Hay Yang Admitting Unavai lable Koromia, Hay Yang Attending Unavai lable Koromia, Hay Yang Referring Unavai Jairo Douglas Primary Care Unavailable Veronicaomia, Hay Yang Admitting Unavai lable Koromia, Hay Yang Attending Unavai lable Asaad, Imad Admitting Unavailable Asaad, Imad Attending Unavailable Jairo Daley Primary Care Unavailable Edi AUDIT CONSULTANT - ORAL SURGERY PHYSICIAN, Jairo Cabrera Primary Care Prov ider FILIBERTO SOW Referring Unavailable JAIRO DALEY Primary Care Unavailable JAIRO DALEY Primary Care Unavailable JASON DOMINGUEZ Referring Unavailable Allergies Allergy ClassificationReported Allergen(s)Allergy TypeDate of OnsetReaction(s) Facility (8 sources)Silicone adhesive tapePropensity to adverse reactions to drug 90-73-3418CrfnGUNHospital Corporation of America (1 source)bee venomDrug allergy (disorder)02-23-0064Hft [facility] Repository (1 source)LatexDrug allergy (disorder)[facility] Repository (4 sources)Honey bee venomAllergy to oqpiiujbj59-67-5218SjsddmggqhnZHFL Healthcare (13 sources)Lisinopril; Translations: [LISINOPRIL]Propensity to adverse mwpqknyty85-97-1459DoanyOOFK [facility] (4 sources)Attends Briefs SmallDrug Ymislrqhbri80-08-4128XqumSYXK Healthcare (16 sources)Adhesive agent; Translations: [ADHESIVE]Propensity to adverse reactions to drug (disorder)96-98-3204PhmqPiwXngftu Repository (16 sources)BEE VENOM PROTEIN (HONEY BEE); Translations: [BEE VENOM PROTEIN (HONEY BEE)]Propensity to adverse reactions to drug (disorder)01-27-2013 [facility] Repository (16 sources)LisinoprilDrug Unbbspo91-69-8915VhbrjNQPReston Hospital Center (6 sources)venom-honey bee; Translations: [venom-honey bee]Allergy to substance 19-26-7521WtrliwmjdvvRucykisvkAdams [facility] (1 source)Adhesive Tape; Translations: [Tape]Propensity to adverse reactions (disorder)[facility] Rep[facility] (1 source)Bee/Wasp/Ant venom; Translations: [Bee Stings]Propensity to adverse reactions (disorder)[facility] Repository (1 source)LisinoprilDrug Ixejvtp71-72-4547UlmivqymrSelect Medical [facility] RepositoryNEGATED: Highlighted row has been ruled out! (8 sources)OtherPropensity to adverse xafdkyrqj68-98-9391MFT [facility] Medications Current Medications MedicationDrug Class(es)DatesSig (Normalized)Sig (Original)acetaminophen 500 mg / HYDROcodone bitartrate 7.5 mg oral tablet (8 sources)Opioid Agonisttake 1 tablet by mouth once as needed, then take 1 tablet by mouth every four hours as neededhydrocodone-acetaminophen (LORTAB) 7.5-500 MG per tablet Take 1 tablet by mouth. 1 tab Q 4 hrs PRN [id number] 200 actuat albuterol 0.09 mg/actuat metered dose inhaler (20 sources)beta2-Adrenergic AgonistStart: 75-01-4946Szita: 63-61-6462ghrp 2 puff(s) by inhalation every four hours as needed for wheezingalbuterol sulfate HFA (PROVENTIL;VENTOLIN;PROAIR) 108 (90 Base) MCG/ACT inhaler INHALE 2 PUFFS EVERY 4 HOURS NEEDED FOR WHEEZING OR SHORTNESS OF BREATH 03/03/2023 Active Start: 03-03-2023 End: 88-44-6856wjfo 2 puff(s) by inhalation every four hours as needed for wheezingalbuterol (PROVENTIL HFA;VENTOLIN HFA) 90 mcg/actuation inhaler Indications: Chronic bronchitis with emphysema ([facility]-H[facility]) Inhale 2 puffs every 4 (four) hours as needed for wheezing or shortness of breath. 18 g 6 01/15/2024 ActiveStart: 02-20-9579orbl 2 puff(s) by mouth every six hours as needed albuterol HFA 90 mcg/act inhaler TAKE TWO PUFFS BY MOUTH EVERY 6 HOURS NEEDED 03/03/2023 Activetake 2 puff(s) by inhalation four times daily as needed ALBUTEROL IN Inhale into the lungs. 2 puffs 4 times a day PRN 0 ActiveamLODIPine 10 mg oral tablet (3 sources)Dihydropyridine Calcium Channel BlockerStart: 28-10-3444ajko 1 tablet by mouth once dailyatomoxetine 25 mg oral capsule (3 sources)Norepinephrine Reuptake InhibitorStart: 28-15-4084fhow 1 capsule by mouth once dailyatomoxetine (STRATTERA) 25 MG capsule Take 1 capsule by mouth daily. 30 capsule 11 02/06/2012 Activeazithromycin 250 mg oral tablet (1 source)Macrolide AntimicrobialStart: 09-13-2024 End: 64-63-7735vcgdcmjqsekw (ZITHROMAX) 250 mg tablet Indications: COPD exacerbation (CMS-HCC) Take 2 tablets the first day, then 1 tablet daily for 4 days. 6 tablet 09/13/2024 09/17/2024 Activediclofenac sodium 75 mg delayed release oral tablet (20 sources)Nonsteroidal Anti-inflammatory DrugStart: 89-70-9388gpfm 1 tablet by mouth twice dailydiclofenac (VOLTAREN) 75 MG EC tablet Take 1 tablet by mouth 2 times daily 07/10/2025 ActiveStart: 08-20-2023 End: 04-60-1009dven 1 tablet by mouth twice dailyStart: 82-97-7138qrhg 1 tablet by mouth in the morningdiclofenac (VOLTAREN) 75 MG EC tablet diclofenac sodium 75 mg tablet,delayed release TAKE 1 TABLET BY MOUTH IN THE MORNING AND 1 TABLET BEFORE BEDTIME 0 11/17/2022 [id number] 0.3 ml EPINEPHrine 1 mg/ml auto-injector (20 sources)alpha-Adrenergic Agonist, beta-Adrenergic Agonist, Catecholamine Start: 01-16-2023 End: 48-13-9840BBYSIQEzjdo (EPIPEN) 0.3 mg/0.3 mL auto-injector USE DIRECTED FOR BEE STINGS 2 each 3 Discontinued (Therapy completed) Start: 64-96-7880IKUGDPCpfqu (EPIPEN 2-ROSALINDA) 0.3 MG/0.3ML DANIELLE injection Inject 0.3 mLs into the muscle once as needed for 1 dose. 1 Device 1 02/07/2012 Active esomeprazole 40 mg delayed release oral capsule (5 sources)Proton Pump InhibitorStart: 69-33-9754atkm 1 capsule by mouth once daily before breakfastesomeprazole (NEXIUM) 40 MG capsule Take 1 capsule by mouth every morning (before breakfast). 30 capsule 5 02/07/2012 ActiveFLUoxetine 10 mg oral capsule (20 sources)Serotonin Reuptake InhibitorStart: 08-97-7401jdna 1 capsule by mouth once dailyFLUoxetine (PROZAC) 10 MG capsule Take 1 capsule by mouth daily 05/25/2025 ActiveStart: 08-03-2023 End: 42-24-0724miwg 1 capsule by mouth once dailyStart: 28-59-2262rorq 1 capsule by mouth once dailyFLUoxetine (PROZAC) 10 MG capsule fluoxetine 10 mg capsule TAKE 1 CAPSULE (10 MG TOTAL) BY MOUTH NIGHTLY. 0 09/04/2022 Active Tdtzjeiimdq-Bpvjfjydx-Xcokwoii (20 sources)Anticholinergic, Corticosteroid, beta2-Adrenergic AgonistStart: 44-43-0229Czfzs: 52-45-6140Lmmeamfgjdp-Umeclidin-Vilanter (Trelegy Ellipta) 100-62.5-25 mcg blister with device Active 1 INH INHALATION Once December 14, 2024 1:00amStart: 85-43-0714Etlehhobely-Umeclidin-Vilanter (Trelegy Ellipta) 100-62.5-25 mcg blister with device Active 1 INH INHALATION Once December 14, 2024 12:00amStart: 08-20-2023 End: 19-76-7962qgvx 1 puff(s) by mouth once dailyTRELEGY ELLIPTA 100-62.5-25 mcg blister with device Indications: Chronic bronchitis with emphysema (CMS-HCC) INHALE 1 PUFF BY MOUTH EVERYDAY *RINSE MOUTH AFTER USE* Strength: 100-62.5-25 mcg 28 each 6 12/16/2024 Activegabapentin 300 mg oral capsule (20 sources)Anti-epileptic AgentStart: 60-79-3089kyxb 1 capsule by mouth twice dailyStart: 08-20-2023 End: 49-84-5444hvdg 1 capsule by mouth once daily in the morninggabapentin (NEURONTIN) 100 mg capsule Indications: Fibromyalgia TAKE 1 CAPSULE BY MOUTH EVERY MORNING AND AFTERNOON 180 capsule 1 12/16/2024 ActiveStart: 10-28-2022 End: 69-49-0558exxr 1 capsule by mouth at bedtimegabapentin (NEURONTIN) 300 MG capsule Take 1 capsule by mouth in the morning and at bedtime. 10/28/2022 Active levothyroxine sodium 0.025 mg oral tablet (20 sources)l-ThyroxineStart: 12-15-2023 End: 22-09-5455aggn 1 tablet by mouth once dailyStart: 10-02-2023 End: 84-55-7082zrtd 1 tablet by mouth in the morninglevothyroxine (SYNTHROID, LEVOTHROID) 50 MCG tablet Indications: Acquired hypothyroidism TAKE 1 TABLET BY MOUTH IN THE MORNING 90 tablet 1 10/02/2023 12/15/2023 Discontinued (Reorder) lisinopril 10 mg oral tablet (6 sources)Angiotensin Converting Enzyme InhibitorStart: 06-25-2023 End: 51-00-9608uqnz 1 tablet by mouth in the morninglisinopril 10 MG tablet Take 10 mg by mouth in the morning. 06/25/2023 Activelosartan potassium 100 mg oral tablet (20 sources)Angiotensin 2 Receptor BlockerStart: 11-03-2024 End: 92-46-8459raiq 1 tablet by mouth once dailyStart: 07-03-2023 End: 92-56-5143hrxp 1 tablet by mouth once dailyLosartan 25 mg tablet Discontinued 25 MG PO Daily July 07, 2024 12:00am December 15, 2024 4 :11pmmethocarbamol 500 mg oral tablet (4 sources)Muscle Relaxanttake 1 tablet by mouth three times daily as needed methocarbamol (Robaxin) 500 MG tablet Take 1 tablet by mouth 3 (three) times a day as needed Activemetoprolol tartrate 25 mg oral tablet (20 sources)beta-Adrenergic BlockerStart: 10-31-2022 End: 27-12-1444iavn 1 tablet by mouth twice dailymetoprolol tartrate (LOPRESSOR) 25 MG tablet metoprolol tartrate 25 mg tablet TAKE 1 TABLET BY MOUTH TWICE A DAY 10/31/2022 Activenitroglycerin 0.4 mg sublingual tablet (20 sources)Nitrate VasodilatornitroGLYCERIN (NITROSTAT) 0.4 MG SL tablet nitroglycerin 0.4 mg sublingual tablet DISSOLVE 1 TABLETUNDER TONGUE NEEEDED Activepropylthiouracil 50 mg oral tablet (14 sources)Thyroid Hormone Synthesis InhibitorStart: 10-31-2022 End: 95-57-9048xuswzxabpqfbzdfv (PTU) 50 MG tablet propylthiouracil 50 mg tablet TAKE 1 TABLET BY MOUTH IN THE MORNING, 1 TABLET AT NOON, 1 TABLET BEFORE BEDTIME 10/31/2022 Activetamsulosin hydrochloride 0.4 mg oral capsule (1 source)alpha-Adrenergic BlockerStart: 87-60-9650gtpm 1 capsule by mouth once daily in the eveningtamsulosin (FLOMAX) 0.4 MG capsule Take 1 capsule by mouth every evening 30 capsule 1 07/18/2025 Activetiotropium (5 sources)AnticholinergicTiotropium [place] Monohydrate (SPIRIVA HANDIHALER IN) Inhale into the lungs daily. 0 ActivetraMADol hydrochloride 50 mg oral tablet (17 sources)Opioid AgonistStart: 08-10-2024 End: 67-65-7753ffvl 1 tablet by mouth every six hours as neededStart: 01-14-2023 End: 20-08-3664qpbe 1 tablet by mouth every eight hours as needed for pain traMADoL (ULTRAM) 50 mg tablet Indications: Arthritis, multiple joint involvement Take 1 tablet (50mg total) by mouth every 8 (eight) hours as needed for pain for up to 10 days. 20 tablet 0 12/11/2023 12/21/2023 ActiveUNABLE TO FIND (5 sources)UNABLE TO FIND Epi pen PRN 0 Active Completed/Discontinued Medications MedicationDrug Class(es)DatesSig (Normalized)Sig (Original)Mtk0367-Ddk Qcl-Yczm-Tds-Asb-C (6 sources)Osmotic Laxative, Vitamin CStart: 06-04-2024 End: 39-22-8402vasi 1 dose by mouth once wousjQxc5483-Niw Mcm-Anul-Kkk-Asb-C (Plenvu) 140-9-5.2 gram powder in packet, sequential Discontinued 140 ML PO .COMPLEX 1 1 June 04, 2024 12:00am December 15, 2024 4:12pm First dose at 4pm the day before colonoscopy, Second dose at 11pm the night before the colonoscopyStart: 06-04-2024 End: 27-99-2959kkga 1 dose by mouth once deszrTzp1033-Bas Dgf-Nmvm-Fsj-Asb-C (Plenvu) 140-9-5.2 gram powder in packet, sequential Discontinued 140 ML PO .COMPLEX 1 1 June 03, 2024 11:00pm December 15, 2024 3:12pm First dose at 4pm the day before colonoscopy, Second dose at 11pm the night before the colonoscopyStart: 05-50-0495jfan 1 dose by mouth once tsgosDfr3335-Tzf Fus-Xhwp-Bzn-Asb-C (Plenvu) 140-9-5.2 gram powder in packet, sequential Active 140 ML PO .COMPLEX 1 1 June 04, 2024 12:00am First dose at 4pm the day before colonoscopy, Second dose at 11pm the night before the colonoscopy Fluticasone Propion-Salmeterol (11 sources)Corticosteroid, beta2-Adrenergic AgonistStart: 07-07-2024 End: 27-64-4247bzbl 1 puff(s) by inhalation twice dailyFluticasone Propion- Salmeterol (Advair Diskus) 500-50 mcg/dose blister with device Discontinued 1 IN H INHALATION Twice daily July 07, 2024 12:00am July 05, 2025 9:28am FreeTextSi puff Inhalation Twice a day; Note: Source Status: Taking; Provider: Neha Collazo ( )Start: 89-37-8656ycyi 1 puff(s) by inhalation twice dailyFluticasone Propion-Salmeterol (Advair Diskus) 500-50 mcg/dose blister with device Active 1 INH INHALATION Twice daily July 06, 2024 11:00pm FreeTextSi puff Inhalation Twice a day; Note: Source Status: Taking; Provider: Neha Collazo ( )Start: 27-41-1070nseg 1 puff(s) by inhalation twice dailyFluticasone Propion-Salmeterol (Advair Diskus) 500-50 mcg/dose blister with device Active 1 INH INHALATION Twice daily July 07, 2024 12:00am FreeTextSi puff Inhalation Twice a day; Note: Source Status: Taking; Provider: Neha Collazo ( )fluticasone- salmeterol (ADVAIR) 250-50 MCG/DOSE AEPB Inhale 1 puff into the lungs every 12 hours. 2puffs 0 ActivehydroCHLOROthiazide 12.5 mg / lisinopril 10 mg oral tablet (6 sources)Thiazide Diuretic, Angiotensin Converting Enzyme InhibitorStart: 07-07-2024 End: 88-88-8965jews 1 tablet by mouth once dailyLisinopril-Hydrochlorothiazide 10-12.5 mg tablet Discontinued 1 TAB PO Daily July 07, 2024 12:00am July 07, 2024 8:17am FreeTextSi tablet Orally Once a day; Note: Source Status: Not-TakingundefinedPRN; Provider: Neha Collazo ( )iopamidol (ISOVUE-370) 76 % injection 120 mL (1 source)Start: 12-26-2022 End: 92-17-1955vedhgzxzs (ISOVUE-370) 76 % injection 120 mLpredniSONE 20 mg oral tablet (3 sources)Start: 10-06-2024 End: 14-46-8650glpxsjFXBH (DELTASONE) 20 mg tablet Indications: COPD exacerbation (CMS-HCC) Take 1 tablet (20 mg total) by mouth See Admin Instructions. 1 tab 2x daily x3 days, 1 tab daily x3 days, 1/2 tablet dailyx4 days 11 tablet 10/06/2024 11/03/2024 Discontinued (Therapy completed)Start: 28-72-5919tzrvstXAOO (DELTASONE) 20 mg tablet Indications: COPD exacerbation (CMS-HCC) Take 1 tablet (20 mg total) by mouth See Admin Instructions. 1 tab 2x daily x3 days, 1 tab daily x3 days, 1/2 tablet dailyx4 days 11 tablet 09/13/2024 Activespironolactone 25 mg oral tablet (20 sources)Aldosterone AntagonistStart: 05-23-2023 End: 83-49-4062ratz 1 tablet by mouth once dailySpironolactone 25 mg tablet Discontinued 25 MG PO Daily December 14, 2024 1:00am December 15, 2024 4:11pmtraZODone hydrochloride 50 mg oral tablet (20 sources)Serotonin Reuptake InhibitorStart: 07-07-2024 End: 71-72-8784bpbu 1 tablet by mouth once daily at bedtimeTrazodone 50 mg tablet Discontinued 50 MG PO Daily at bedtime July 07, 2024 12:00am 2024 4:11pm FreeTextSi tablet at bedtime as needed Orally Once a day; Note: Source Status: Taking; Provider: Neha Collazo ( ) Start: 10-31-2022 End: 20-49-5478nkfa 1 tablet by mouth at bedtimetraZODone (DESYREL) 150 MG tablet trazodone 150 mg tablet TAKE 1 TABLET BY MOUTH AT BEDTIME 10/31/2022 Active Problems Active Problems Problem ClassificationProblemDateDocumented DateEpisodic/ChronicAnxiety disorders (6 sources)Mixed anxiety and depressive disorder; Translations: [Anxiety disorder, unspecified]Onset: 447913-71-3644NldxiktLpqxhugdh infection; unspecified site (1 source)Other specified bacterial agents as the cause of diseases classified elsewhere; Translations: [Other specified bacterial agents as the cause of diseases classified elsewhere]Onset: 70-15-7767AhavwzhvRettxw of cervix (1 source)Personal history of malignant neoplasm of cervix uteri; Translations: [PERS HX MALIG NEOPLASM CERV UTERI]Onset: 72-08-9611BpwqeqzcNisbuws dysrhythmias (1 source)Unspecified atrial fibrillation; Translations: [Unspecified atrial fibrillation]Onset: 90-26-4321YzzmjheSmpwypp obstructive pulmonary disease and bronchiectasis (20 sources)Emphysema, unspecified; Translations: [Chronic bronchitis]Onset: 04-01-2022 Resolved: 268164-32-5119FtwzjfaNjoqsfh obstructive pulmonary disease and bronchiectasis (1 source)Chronic obstructive pulmonary disease and bronchiectasis; Translations: [Other specified chronic obstructive pulmonary disease]Onset: 26-32-7382Uflcetoix of lipid metabolism (2 sources)Mixed hyperlipidemia; Translations: [Mixed hyperlipidemia]Onset: 890118-27-1286BnhnphrFobwzyfla usually diagnosed in infancy, childhood, or adolescence (20 sources)Attention deficit hyperactivity disorder, predominantly inattentive type; Translations: [Other specified behavioral and emotional disorders with onset usually occurring in childhood and adolescence]Onset: ChronicE Codes: Fall (1 source)Fall on same level from slipping, tripping and stumbling with subsequent striking against unspecified object, initial encounter; Translations: [FALL SAME LVL SLIP STRK UNS OBJ INT]Onset: 64-24-5739DoodewnkTjeudjposw disorders (1 source)Gastro-esophageal reflux disease without esophagitis; Translations: [GERD WITHOUT ESOPHAGITIS]Onset: 43-55-4526CbpuydcCgsocpauq hypertension (20 sources)Essential (primary) hypertension; Translations: [Benign essential hypertension]Onset: 41-56-6921YliuyiwScqlmleuuxrpw symptoms and ill-defined conditions (2 sources)Incontinence; Translations: [Mixed incontinence]Onset: 07-18-2025 84-85-3471YufqgnxNvegqtdsbbssh symptoms and ill-defined conditions (8 sources)Rafael hematuria; Translations: [Gross hematuria]Onset: 07-18-2025 EpisodicHeadache; including migraine (1 source)Headache; including migraine; Translations: [HEADACHE UNSPECIFIED] Onset: 21-63-4992Kkivk valve disorders (19 sources)Nonrheumatic mitral (valve) insufficiency; Translations: [Non- rheumatic mitral regurgitation ]Onset: 67-11-2227YxmfyusNgzzwjwspezf with complications and secondary hypertension (4 sources)Hypertensive heart disease without heart failure; Translations: [Unspecified hypertensive heart disease without heart failure]26-77-4583Eyoagdt Joint disorders and dislocations; trauma-related (20 sources)Chondromalacia of left patella; Translations: [Chondromalacia patellae, left knee]Onset: 957445-30-2808SjaiwhrGuszswiqbffvv mental health disorders (7 sources)Primary insomnia; Translations: [Primary insomnia]Onset: 08-20-2023 79-63-0593BaegybhPixp disorders (1 source)DepressionOnset: 87-99-4485VzpwslfIboi disorders (14 sources)Mood disorders; Translations: [Depression, unspecified]Onset: 04-12-2024 Resolved: 771202-20-6585Egmxrmofjljgcn (16 sources)Unspecified osteoarthritis, unspecified site; Translations: [Osteoarthritis of joint of right ankleand/or foot]Onset: 603904-06-6316 ChronicOther aftercare (1 source)Other fpc (current) drug therapy; Translations: [OTH CHIN STRAP CUTTER CURRENT DRUG THERAPY]Onset: 37-61-9172FuunoosvSlwgk connective tissue disease (2 sources)Disorder of musculoskeletal system; Translations: [Other specified disorders of synovium, right ankle and foot]71-99-5245IamaxyzwGdraw ear and sense organ disorders (1 source)Unspecified hearing loss, left ear; Translations: [UNSPECIFIED HEARING LOSS LEFT EAR]Onset: 72-66-8253YbqcmmgNgqti ear and sense organ disorders (17 sources)Sensorineural hearing loss, unilateral, left ear, with unrestricted hearing on the contralateral side; Translations: [Sensorineural hearing loss, unilateral]Onset: 88-39-6935JgxwsoxMsyqa ear and sense organ disorders (1 source)Unspecified hearing loss, unspecified ear; Translations: [UNS HEARING LOSS UNSPECIFIED EAR]Onset: 88-30-1365EpansnsZhltj ear and sense organ disorders (13 sources)Deafness of left ear; Translations: [Unspecified hearing loss, left ear]Onset: 122373-41-8100UsxvzdwJodoo lower respiratory disease (3 sources)Pleurodynia; Translations: [PLEURODYNIA]Onset: 64-82-9678Iqnqeayz Other nervous system disorders (1 source)Other chronic pain; Translations: [OTHER CHRONIC PAIN]Onset: 40-94-8574ZaeulfuWudpt nervous system disorders (13 sources)Chronic pain syndrome; Translations: [Chronic pain syndrome]Onset: 743577-05-8587HnerbvpTlito non-traumatic joint disorders (6 sources)Arthropathy of multiple joints; Translations: [Arthropathy, unspecified]63-97-4899YydypgbNufgb non-traumatic joint disorders (1 source)Arthropathy, unspecified; Translations: [Arthropathy, unspecified] Onset: 80-11-4851BdsawqsAxpzx nutritional; endocrine; and metabolic disorders (1 source)Obesity, unspecified; Translations: [OBESITY UNSPECIFIED]Onset: 85-99-1062MzxndonOvzoy nutritional; endocrine; and metabolic disorders (1 source)Body mass index (BMI) 35.0-35.9, adult; Translations: [BODY MASS INDEX BMI 35.0-35.9 ADULT]Onset: 88-28-3459SdtnjzpWmqmq nutritional; endocrine; and metabolic disorders (15 sources)Morbid obesity; Translations: [Morbid (severe) obesity due to excess calories]Onset: 080290-56-5327EtdzgshWlhfc nutritional; endocrine; and metabolic disorders (1 source)Morbid (severe) obesity due to excess calories; Translations: [Morbid (severe) obesity due to excess calories]Onset: 89-72-0543IgmysnhVfyau upper respiratory infections (2 sources)Chronic maxillary sinusitis; Translations: [Chronic sinusitis, unspecified]Onset: 23-52-3578CbrrvdiBobtfqfd codes; unclassified (1 source)Acquired absence of both cervix and uterus; Translations: [ACQUIRED ABSENCE BOTH CERVIX AND UTERUS]Onset: 21-92-3752HbdlxefaJoclxmqfl and history of mental health and substance abuse codes (1 source)H/O: depression; Translations: [Personal history of other mental and behavioral disorders]07-90-7793JvrxcxprWhulkakffts; intervertebral disc disorders; other back problems (20 sources)Lumbar post-laminectomy syndrome; Translations: [Postlaminectomy syndrome, not elsewhere classified]Onset: hronic Spondylosis; intervertebral disc disorders; other back problems (1 source)Dorsalgia, unspecified; Translations: [DORSALGIA UNSPECIFIED]Onset: 45-32-8142ZrimnzdoNdtpclzrq-related disorders (20 sources)Nicotine dependence, cigarettes, uncomplicated; Translations: [Nicotine dependence, cigarettes, with unspecified nicotine-induced disorders] Onset: 23-26-5424KdjmtbiSsqisawczry injury; contusion (3 sources)Contusion of left front wall of thorax, initial encounter; Translations: [Contusion of right elbow,initial encounter]Onset: 03-11-2022 EpisodicThyroid disorders (20 sources)Thyrotoxicosis with diffuse goiter without thyrotoxic crisis or storm; Translations: [Graves' disease]Onset: 169109-93-4224Szdghfx Unclassified (1 source)Annual ExamOnset: 62-88-8067Dlvswqnghvtq (1 source)fibroOnset: 08-10-2024 Past or Other Problems Problem ClassificationProblemDateDocumented DateEpisodic/ChronicAbdominal pain (4 sources)Unspecified abdominal pain; Translations: [UNSPECIFIED ABDOMINAL PAIN]Onset: 29-39-0683DiaonsbwLycdfqmk of urinary tract (20 sources)Kidney stone; Translations: [Calculus of kidney]Onset: 08-11-2022 EpisodicCancer of ovary (1 source)Personal history of malignant neoplasm of ovary; Translations: [PERSONAL HX MALIG NEOPLASM OVARY]Onset: 48-03-1586PyvkxmbdGwwrcas dysrhythmias (13 sources)Intermittent palpitations; Translations: [Palpitations]Onset: 374516-44-4896EasxcdjwNknnlwgqzeaitpef hemorrhage (4 sources)Melena; Translations: [MELENA]Onset: 36-95-8229HzsctssbIbamqkiqlawkw and screening for infectious disease (4 sources)Encounter for screening for other viral diseases; Translations: [Viral screening status]Onset: 910118-64-3927WtnnraxaLqchjov (3 sources)Onychomycosis; Translations: [Tinea unguium]68-69-1564Qqwhoiyz Nonspecific chest pain (18 sources)Atypical chest pain; Translations: [Other chest pain]Onset: 641538-72-9303BruugxqkDxapf bone disease and musculoskeletal deformities (1 source)Other specified disorders of bone density and structure, left thigh; Translations: [OTH D/O BONE DEN STRUCT LT THIGH]Onset: 01-58-9271BawsipueMisvo bone disease and musculoskeletal deformities (13 sources)Bone cyst; Translations: [Other cyst of bone, unspecified site] Onset: 648878-05-6647GnhtiwqtWuddf connective tissue disease (1 source)Pain in right foot; Translations: [PAIN IN RIGHT FOOT]Onset: 86-05-0723JuimwtxuAvhjv connective tissue disease (3 sources)Pain of toes of bilateral feet; Translations: [Pain in right toe(s)] 03-16-2679XwhxzhmnFixxi connective tissue disease (20 sources)Fibromyalgia; Translations: [Fibromyalgia]Onset: 11-11-2022 63-95-9484LodwoymyRsmtt connective tissue disease (1 source)Fibromyalgia; Translations: [Fibromyalgia]Onset: 01-67-1217Wgkuzhto Other infections; including parasitic (1 source)H/O: infectious disease; Translations: [Personal history of other infectious and parasitic diseases]16-06-9376GzcdttygTqzow non-traumatic joint disorders (4 sources)Pain in right ankle and joints of right foot; Translations: [PAIN IN RIGHT ANKLE]Onset: 54-26-0920EewmvxzfBksic non-traumatic joint disorders (4 sources)Pain in right elbow; Translations: [PAIN IN RIGHT ELBOW]Onset: 48-21-8884PjzsmitvYnmuh screening for suspected conditions (not mental disorders or infectious disease) (8 sources)Encounter for screening for osteoporosis; Translations: [Encounter for screening mammogram for malignant neoplasm of breast]Onset: 08-18-2022 83-14-9174StsexghnKrglw upper respiratory infections (1 source)Acute maxillary sinusitis, unspecified; Translations: [ACUTE MAXILLARY SINUSITIS UNS]Onset: 40-51-9637AxnxyfibZkyrqgnm codes; unclassified (20 sources)Insomnia; Translations: [Insomnia, unspecified]Onset: 02-06-2012 98-60-9463IlgbmtnsXyesnivj codes; unclassified (8 sources)Tobacco user; Translations: [Tobacco use]Onset: EpisodicResidual codes; unclassified (4 sources)Asymptomatic menopausal state; Translations: [ASYMPTOMATIC MENOPAUSAL STATE]Onset: 07-71-2674YqcwrliuChkhvept codes; unclassified (1 source)Family history of leukemia; Translations: [FAMILY HISTORY OF LEUKEMIA] Onset: 27-81-6664ZrolympyLjwdonwz codes; unclassified (1 source)Family history of malignant neoplasm of kidney; Translations: [FAM HX MALIGNANT NEOPLASM KIDNEY]Onset: 29-30-2621GkveajtaEaqifzpi codes; unclassified (1 source)Acquired absence of ovaries, bilateral; Translations: [ACQUIRED ABSENCE OVARIES BILATERAL]Onset: 72-60-1205EioeqddyYhjwvcf and strains (1 source)Tendon injury - lower limb; Translations: [Strain of muscle(s) and tendon(s) of peroneal muscle group at lower leg level, right leg, initial encounter]94-15-7068MagwujnkSdqbqnssterf (1 source)AMS, low o2 statsOnset: 73-28-1027Yvfruppupcbs (13 sources)Onset: 10-06-2024 Resolved: Results Test NameValueInterpretationReference RangeFacilityCult,Urineon 07-19-2025 Cult,UrineSpecimen Description .CLEAN CATCH URINE Special Requests Site: Urine Culture NO SIGNIFICANT GROWTH Report Status FINAL 07/19/2025[facility]aritan HospitalComment on above: Performed By: #### URC #### [facility] [address], [place] [id number] Manual Arts Therapy Teacher: Richard Farias MD [facility] [address] [place], [place] [id number] Manual Arts Therapy Teacher: Xavier Cuevas MDUrinalysis w/ Microon 35-10-1573Whqbfflco, SemiQt,UrNegativeKettering Health TroyComment on above:Performed By: #### UAMIC #### [facility] [address] [place] [address] [place] [address] Manual Arts Therapy Teacher: Arya Melendez, UrineNegMercy Health St. [facility] Comment on above:Performed By: #### UAMIC #### [facility] [address] [place], [place] [id number] Manual Arts Therapy Teacher: Ed Melendez ([facility] Comment on above:Performed By: #### UAMIC #### [facility] [address] [place], [place] [id number] Manual Arts Therapy Teacher: Oh Melendez (YellowUniversity Hospitals St. [facility] Comment on above:Performed By: #### UAMIC #### [facility] [address] [place], [place] [address] Manual Arts Therapy Teacher: Xavier Cuevas MDEpithelial cells LM Ql (Urine sed)0 TO 1Ukcmnn0-10 [facility]leness HospitalComment on above:Performed By: #### UAMIC #### [facility] [address] [place] [address] [place] [address] Manual Arts Therapy Teacher: Xavier Cuevas MDGlucose Ql (U)NegativeNormalNEGOhiohealth O'Bleness HospitalComment on above:Performed By: #### UAMIC #### [facility] [address] [place] [address] [address] [place], [place] [address] Manual Arts Therapy Teacher: Xavier Cuevas MDKetones Ql (U)NegativeNormalNEGOhiohealth O'Bleness HospitalComment on above:Performed By: #### UAMIC #### [facility] [address] [place] [address] [address] [place], [place] [address] Manual Arts Therapy Teacher: Xavier Cuevas MDLeukocyte esterase Test strip Ql (U)NegativeNormal NEGOhiohealth O'Bleness HospitalComment on above:Performed By: #### UAMIC #### [facility] [address] [place] [address] [place] [address] Manual Arts Therapy Teacher: Xavier Cuevas MDNitrite,UrNegativeNormalNEGAkron Children'S Hospital on above:Performed By: #### UAMIC #### [facility] [address] [place] [address] [place] [address] Manual Arts Therapy Teacher: PAU Melendez,Ur6.6Svglnu3.0-9.0[facility]'Bleness HospitalComment on above:Performed By: #### UAMIC #### [facility] [address] [place] [address] [place] [address] Manual Arts Therapy Teacher: PAU Melendezrotein Ql (U)NegativeNormalNEGOhiohealth O'Bleness HospitalComment on above:Performed By: #### UAMIC #### [facility] [address] [place] [address] [address] [place], [place] [address] Manual Arts Therapy Teacher: JOSE Melendezpec. [place],Ur1.681Dwqinv3.010-1.020Ohio[facility] O'Bleness HospitalComment on above:Performed By: #### UAMIC #### [facility] [address] [place], [facility]83 Manual Arts Therapy Teacher: Baltazar Melendez RBC's0 TO 4Xikfma6-1PcnarKettering Health Troy Comment on above:Performed By: #### UAMIC #### [facility] [address] [place] [address] Manual Arts Therapy Teacher: Baltazar Melendez WBC's2 TO 1Xfyaai1-0BpqybOhiohealth O'Bleness Hospital Comment on above:Performed By: #### UAMIC #### [facility] [address] [place] [address] Manual Arts Therapy Teacher: Xavier Cuevas MDUrobilinogen,UrNormalNormal0.0-1.0[facility] O'Bleness HospitalComment on above:Performed By: #### UAMIC #### [facility] [address] [place], [facility]83 Manual Arts Therapy Teacher: Xavier Cuevas MDUrinalysis with Microscopicon 75-19-5078Hqdiojvsy Ql (U)NegativeNEGATIVEBon Secours Mercy HealthClarity (U)ClearClearBon Secours Cleveland Clinic Children[facility] Hospital For Rehabilitationy HealthColor (U)YellowYellowBon Secours Cleveland Clinic Children'S Hospital For Rehabilitationy HealthEpithelial cells LM.HPF (Urine sed) [#/Area]0 TO 2[facility] HealthGlucose Test strip (U) [Mass/Vol]NegativeNEGATIVE mg/dLBon Secours Mercy HealthHemoglobin Auto test strip Ql (U)NegativeNEGATIVEBon Secours Mercy HealthKetones (U) [Mass/Vol] NegativeNEGATIVE mg/dLBon Secours Mercy HealthLeukocyte esterase Test strip Ql (U)NegativeNEGATIVEBon Secours Mercy HealthNitrite Ql (U)NegativeNEGATIVEBon Secours Mercy HealthpH (U)6.5 [pH]5.0 - 9.0[facility] HealthProtein (U) [Mass/Vol]NegativeNEGATIVE mg/dLBon Secours Mercy HealthRBC LM.HPF (Urine sed) [#/Area]0 TO 2Bon White HospitalSpecific gravity (U) [Rel density]1.015 1.010 - 1.020Bon White HospitalUrobilinogen Qn (U)Normal0.0 - 1.0 EU/dLBon White HospitalWBC LM.HPF (Urine sed) [#/Area]2 TO 5Bon White HospitalBon White HospitalXR ABDOMEN (KUB) (SINGLE AP VIEW)on 49-91-7537VB ABDOMEN (KUB) (SINGLE AP VIEW)EXAMINATION: ONE SUPINE XRAY VIEW(S) OF THE ABDOMEN07/12/2025 10:49 am COMPARISON: KUB 06/02/2024 HISTORY: ORDERING SYSTEM PROVIDED HISTORY: Renal calculus, FINDINGS: No definite urinary tract calculus is seen on this study. Multiple pelvic phleboliths. No bowel obstruction. Postop lumbar spine. IMPRESSION: No urinary calculus is seen. Interpreted by: Timi Jones MD Signed by: Timi Jones MD 07/15/25 Final resultNormalMercy Windham HospitalOrthopedic Office/Clinic Noteon 90-65-0881Wwdqwlrwuy Office/Clinic NoteChief Complaint F/U Lt Knee Pain History of [...] history is notable for her mother having tatiana kidney and her youngest daughter having a cadaveric kidney. The patient reports seeing a frame maker for her valve prior to her reconstructive foot surgery but has not returned since. She deniessigns of infection or cellulitis. Social History The [...] of open wounds, skin is intact, mild tomoderate intra-articular effusion, significant medial and mild lateral [...] mL syringe. The solution was injected into theleft knee using a superolateral approach under sterile [...] set in. The pa (more content not included)...[facility]/Clinic NoteChief Complaint F/U Lt Knee Pain History of [...] history is notable for her mother having tatiana kidney and her youngest daughter having a cadaveric kidney. The patient reports seeing a frame maker for her valve prior to her reconstructive foot surgery but has not returned since. She deniessigns of infection or cellulitis. Social History The [...] of open wounds, skin is intact, mild tomoderate intra-articular effusion, significant medial and mild lateral [...] mL syringe. The solution was injected into theleft knee using a superolateral approach under sterile technique. The patient tolerated the procedure well without any complications. Patient was advised to ice the knee tonight to reduce swelling and inflammation. Patient was advised to avoid high-impact activities for 2 to 3 days following the injection. The patient was in good understanding of the plan. - Administered repeat intra-articular injection today as patient preferred non- surgical management at this time. - MRI may [...] on exam. - Recommended (more content not included)...[facility] Office/Clinic Noteon 44-06-5817Wcgansqqlk Office/Clinic NoteChief Complaint hx of bilat. knee pain, but Lt. knee has become very painful after being NWB on Rt foot following Rt ankle surgery 2024 History of Present Illness Robyn is a 69-year-old female who presents today for evaluation of her left knee. The patient has ahistory of a right ankle surgery with podiatry and presents in a walking boot to the right lower extremity. Patient states that since her surgery she has had increasing left knee pain. Denies any trauma inciting event. Patient denies any numbness or tingling. Pain localized to the left knee withoutradiation. Pain worse medially. Denies any history of [...] no obvious signs of external trauma, skin isintact, mild effusion, the patient has range of [...] does demonstrate moderate left knee osteoarthritis, worse medially.Patient was advised of diagnosis and treatment options. Patient is status post a recent right anklesurgery at this point time we will defer [...] understanding of this plan and amenable to proceed ing as such. Medical Decision Making Chronic conditions NOT treated during this visit that affected my overall medical decision making: [] Treatment plans discussed but not opted for at this time: [] Prescribed medication that requires intensive monitoring for toxicity: [] I have reviewed the patient?s medication list for medication interactions/contraindications and/or for upcoming procedures: [yes or no] [...] 180 EA, 0 Refil (more content not included)...[facility] HospitalXR Knee 3 Views Lefton 44-26-3320PT Knee 3 Views LeftExam: Three-view left knee films Interpretation: 3 view [...] to moderate tricompartmental osteoarthritis Final Signed by: Bharathi ISRAEL, Imtiaz Hearn Signed (Electronic Signature): 03/11/2025 10:17 am Transcribed DT/TM: 03/11/2025 10:17 (If Report Is Signed, Electronically Signed in Other Vendor System)[facility] CenterPodiatry Office/Clinic Noteon 20-80-3668Qyoeegeq Office/Clinic NoteThe content of this note was generated by an artificial intelligence (AI) language dictation. The patient or guardian has given their consent for the use of AI technology during the visit to capture and process the conversation. The AI will assist in providing information and support throughout thediscussion. The AI will not store personal or [...] can choose a convenient location, such as [place]. The patient previously attended physical therapy at the building where Dr. Valentin was located. A telephone appointment is scheduled for six to eight weeks to monitor herprogress and avoid unnecessary trips. The patient is concerned about the healing of her foot and is reassured that her recovery is progressing as expected. She will be provided with an ankle brace to aid in transitioning out of the boot.The patient is advised to bring the ankle brace to her first physical therapy session to discuss the transition plan. She expresses eagerness to resume outdoor activities and is informed that a good goal is to be 90% out of the boot by the time of the telephone visit in six to eight weeks. The patient is advised notto drive until she is out of the [...] of Systems Musculoskeletal: Positive (more content not included)...[facility] HospitalPodiatry Office/Clinic Noteon 65-36-0878Nylkzdhf Office/Clinic Note Chief Complaint Post-Op Right ankle [...] to the plantar feet as tested with [place] [employer] monofilament. Gross motor intact bilateral [...] reviewed the patient?s medication list for medication interactions/contraindications and/or for upcoming procedures: [yes Time Spent with the Patient I have personally spent [] minutes on this date, (more content not included)... [facility].eGFRon 87-96-2855FKX/1.73 sq M.predicted MDRD (S/P/Bld) [Vol rate/Area]mL/min/{1.73_m2}Normal>=60Kindred Hospital DaytonComment on above:Result Comment: [facility] have implemented the eGFR calculation approach that does not havea coefficient for race and that conforms to [...] maximum of SCr/? or 1 Age = yearsPerformed By: #### EGFR ####[address] [address]OTG w/ Diffon 18-91-6712Znzftysrdgb distribution width (RBC) [Ratio]13.1 %Fcnnzt00.6-14.8BAultman Alliance Community HospitalComment on above:Performed By: #### CBC ####[address] [address]Dvrvgaqyyq (Bld) [Volume fraction]38.8 %Seiydf28.0-46.0 [facility] DaytonComment on above:Performed By: #### CBC ####[address] [address]Rczyixeyeq (Bld) [Mass/Vol]13.2 g/xUAacugd67.0-16.0[facility] DaytonComment on above:Performed By: #### CBC ####[place] [address]MCH (RBC) [Entitic mass]29.7 miNypcob87.0-35.0[facility] DaytonComment on above:Performed By: #### CBC ####[address] [address]KBQD75.0 %Rjjynd35.0-37.0 [facility] DaytonComment on above:Performed By: #### CBC ####[place] [address]MCV (RBC) [Entitic vol]87.5 lODeoxqx14.0-100.0[facility] DaytonComment on above:Performed By: #### CBC ####[place] [address]Platelet212 x10*3/qaUCyofpz166-840MmzlxjlooKindred Hospital DaytonComment on above:Performed By: #### CBC ####[place] [address]Platelet mean volume (Bld) [Entitic vol]9.1 fL Normal6.7-10.6BAultman Alliance Community HospitalComment on above:Performed By: #### CBC ####[address] [address]ZKY7.44 x10*6/mcLNormal3.80-5.20[facility] DaytonComment on above:Performed By: #### CBC ####[place] [address]WBC11.6 x10*3/mcLHigh4.5-11.0[facility] DaytonComment on above:Performed By: #### CBC ####[place] [address]CMPon 87-60-0299Rlnzbcs [Mass/Vol]3.0 g/dLLow3.2-4.9 [facility] DaytonComment on above:Performed By: #### COMP ####[place] [address] Albumin/Globulin [Mass ratio]0.9 {ratio}Low1.1-2.2BA[facility] Hospital Comment on above:Performed By: #### COMP ####[place] [address] [facility], [place] [address]Ahp Phos49 IU/SEoovke66-30InmzzkxlzKindred Hospital DaytonComment on above:Performed By: #### COMP ####[address], [place] [address]MOV [Catalytic activity/Vol]47 U/VHmwzas99-13 [facility] DaytonComment on above:Performed By: #### COMP ####[address], [place] [address]Gjjvs gap [Moles/Vol]8 mmol/LNormal4-12[facility] Hospital DaytonComment on above: Performed By: #### COMP ####[address] [place] [address]AGH [Catalytic activity/Vol]44 U/JQmgg35-62OqsmdlgznKindred Hospital DaytonComment on above:Performed By: #### COMP ####[address], [place] [address]Sago Total0.8 mg/dLNormal 0.3-1.2BAultman Alliance Community HospitalComment on above:Performed By: #### COMP ####[address] [place] [address]Ckjitfq [Mass/Vol]8.9 mg/dLNormal8.5-10.3BAultman Alliance Community HospitalComment on above: Performed By: #### COMP ####[address], [place] [address]Ewmgmtee [Moles/Vol]103 mmol/IQrgglj33-348EvubhywtrKindred Hospital DaytonComment on above:Performed By: #### COMP ####[address], [place] [address]EA7 [Moles/Vol]24 mmol/L Baoioo26-49XpcrwcckrKindred Hospital DaytonComment on above:Performed By: #### COMP ####[address] [place] [address] Creatinine [Mass/Vol]0.87 mg/dLNormal0.44-1.03[facility] Comment on above:Performed By: #### COMP ####[address] [address]Zngtxvg [Mass/Vol]171 mg/lUVoxz37-51XwqwrmgwnKindred Hospital DaytonComment on above:Performed By: #### COMP ####[address] [address]Pdgobuhle [Moles/Vol]4.1 mmol/LNormal3.4-4.8BA[facility] Alliance Community HospitalComment on above:Performed By: #### COMP ####[address] [address] Protein [Mass/Vol]6.4 g/dLLow6.5-8.1BAult[facility] Alliance Community HospitalComment on above:Performed By: #### COMP ####[address] [address]Lgoinp [Moles/Vol]135 mmol/EKvhyxb867-593BzqwrjbbyKindred Hospital DaytonComment on above:Performed By: #### COMP ####[address] [address]Ukrm nitrogen [Mass/Vol]30 mg/dL High8-26[facility] Hospital DaytonComment on above:Performed By: #### COMP ####[address] [address]Stya nitrogen/Creatinine [Mass ratio]34.5 mg/jeDbju41.0-20.0[facility] Hospital DaytonComment on above:Performed By: #### COMP ####[address] [address]Hgvy Autoon 03-48-5358Qmdj Absolute0.0 x10*3/mcLNormal0.0-0.2BAultman Alliance Community HospitalComment on above:Performed By: #### .Automated Diff ####[address] [address]Jcorvahjw/100 WBC (Bld)0.2 %Normal0.0-1.5BAultman Alliance Community HospitalComment on above:Performed By: #### .Automated Diff ####[address] [address]Ban Absolute0.0 x10*3/mcL Normal0.0-0.4BAultman Alliance Community HospitalComment on above:Performed By: #### .Automated Diff ####[address] [address]Eidwicavxke/100 WBC (Bld)0.0 %Normal0.0-5.4[facility] Comment on above:Performed By: #### .Automated Diff ####[address] [address]Nvglb Absolute0.8 x10*3/mcLLow 1.0-4.8BAult[facility] Alliance Community HospitalComment on above:Performed By: #### .Automated Diff ####[address] [address]Trsdozenejh/100 WBC (Bld)6.6 %Low27.2-40.8[facility] Comment on above:Performed By: #### .Automated Diff ####[address] [address]Ckpf Absolute0.6 x10*3/mcLNormal 0.1-1.1BA[facility] Alliance Community HospitalComment on above:Performed By: #### .Automated Diff ####[address] [address]Ipcswukzi/100 WBC (Bld)4.8 %Normal3.7-11.9[facility] Comment on above:Performed By: #### .Automated Diff ####[address] [address]Gecjyd Rrwgngos51.3 x10*3/mcLHigh 1.8-7.7BAult[facility] Alliance Community HospitalComment on above:Performed By: #### .Automated Diff ####[address] [address]Kmymsw Auto88.4 %High47.2-70.8BAult[facility] Alliance Community HospitalComment on above:Performed By: #### .Automated Diff ####[facility] [place], [place] [address] Clinical Summaryon 96-17-3356Trusinkyv Clinical SummarySt. [facility] [address] [place], [place] [id number] [phone] [id number] [phone] Clinical Summary Person Information Name: Robyn Thorpe Age: 69 Years : 1955 Sex: Female PCP: Jairo Higuera Marital Status: Phone: PCP: Race: White Ethnicity: Not or Language: [place]er Visit Id: Visit Reason: Speciality: Acuity: Enc Type: Observation Med Service: Surgery Arrival: 02/10/2025 10:42:53 Discharge: Dispo Type: Address: [facility] [address] [facility] [id number] Preferred Communication Mode: Verbal Preferred Language: [place] Discharge Diagnosis: 1:Painful orthopaedic hardware; 2:Ankle impingement [...] Hearing deficit, right ear, Uncorrected visual impairment Valuables/Belongings: Clothes History of Falls Within 6 Months: [...] range between ( 27.2 and 40.8 ) [place] Auto: 4.8 % -- Normal range between [...] range between ( 36.0 and 46.0 ) [place] Absolute: 0.6 x10 MCH: 29.7 pg -- [...] Normal range between (more content not included)... NormalKindred Hospital DaytonMagnesiumon 82-78-5462Ffjsabbyz [Mass/Vol] 1.9 mg/dLNormal1.7-2.4BAultman Alliance Community HospitalComment on above:Performed By: #### MG ####[address] [address] Progress Note-Nurseon 49-98-8248Lxuioqbz Note-NursePhysical therapy reported to this handbook writer the patient was not able to get [...] that those are not safe options and pat ieritu continued to insist she has many young, able-bodied men that live close and can help them out at home. Hospitalist and welding process engineer notified of physical therapy recommendations and patient's refusal. Offered to set patient up with home health so that physical therapy can come periodically to help her recover and she stated that her dogs don't like strangers and that she would be fine and does not want it. Electronically signed by Sandhya Bazzi 02/11/25 10:46 EDTNoAdena Health SystemProvider Letteron [id number] Letter CARLITOS Hankins [address] [place] [address], [facility] [place] [address] Re: Robyn Thorpe Date of Visit: 02/10/2025 Dear Jairo URBINA, [address], [id number] Date: 02/11/2025 12:55:10 Please see attached discharge summary regarding RomneyRobyn pang who was seen on 02/10/2025 16:16:43. Please see attached note for further details and please call with any questions or concerns. Sincerely, VIKI Saunders Providers: The following document(s) were included in the letter: February 11, 2025 12:50:52 EDT - (02/11/2025) Discharge SummaryNoAdena Health SystemXR OR Ankle Righton 72-56-0572WJ OR Ankle Right This report was not [...] Is Signed, Electronically Signed in Other Vendor System)Normal [facility] DaytonConsultation Note - Genericon 02-10-2025 Consultation Note - GenericChief Complaint RIGHT ANKLE PAIN & INSTABLITY SARAH BETH FOR: RIGHT LOWER EXTREMITY SURGERY Reason for Consultation: Medical Business Practices Officer Provider: DILEEP Sage Date of Consult: 02/10/2025 Assessment/Plan Removal hardware from R ankle: home medications resumed as appropriate, daily labs to monitor bloodcount, electrolytes, etc. History of Present Illness In 2020 patient sustained a right lateral malleolus displaced fracture after ground-level fall. This was repaired via open reduction internal fixation at outside hospital. Patient has residual pain from her lateral plate and wishes to have it removed. 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 Review [...] (02/10/2025) Medications Inpatient acetaminophen, 650 mg, Oral, o1th-Wnevifvg Times albuterol, 180 mcg= 2 puffs, Inhale, [...] Stings (Swelling) Tape ( (more content not included)...[facility] Operative Reporton 51-61-5782Escwtnafd ReportIndication for Surgery Right ankle impingement/painful hardware/peroneal tendon [...] popliteal block performed in preop holding. Patient wasbrought to the operating room, placed on the [...] Surgeon(s) Brant Burden DPM (Surgeon - Primary) Counter Top Maker Jonathon Patterson (Pitch Flaker) Anesthesia General Rubi ISRAEL, Lenny Mendes (Supervisor Glycerin) Malik Reed DO (Supervisor Glycerin) Gregory CESARN-ORAL SURGERY PHYSICIAN, Marianne Parks (Provider) Robinson AUDIT CONSULTANT-WIND TURBINE CONTROLS ENGINEER, Lucero Alexandre (Provider) Sima AUDIT CONSULTANT-WIND TURBINE CONTROLS ENGINEER, Jen (Provider) Preoperative popliteal/saphenous block Estimated Blood [...] tendon. Ankle inflated with 20 mL of lactatedRinger's. I exsanguinated the leg and inflated tourniquet to 275 mmHg. Incision was made with a 15 blade at the level of the ankle joint just medial to the tibialis anterior tendon. After visualizingthe superficial peroneal nerve under the skin, the [...] and obturator were int (more content not included)...[facility] HospitalProvider Letteron 02-10-2025 Provider Letter CARLITOS Hankins [address] [place] [address], [place] [address] Re: Robyn Thorpe Date of Visit: 02/10/2025 Dear Jairo URBINA, [address], [phone] Date: 02/10/2025 15:36:28 Please see attached operative note regarding Robyn Thorpe who was seen on 01/26/2025 16:28:17. Please see attached note for further details and please call with any questions or concerns. Sincerely, VIKI Saunders Providers: The following document(s) were included in the letter: February 10, 2025 15:25:11 EDT - (02/10/2025) Op NoteNormalKindred Hospital Dayton.eGFRon 55-23-9507IHK/1.73 sq M.predicted MDRD (S/P/Bld) [Vol rate/Area] mL/min/{1.73_m2}Normal>=60Kindred Hospital DaytonComment on above:Result Comment: [facility] have implemented the eGFR calculation approach that does not havea coefficient for race and that conforms to [...] maximum of SCr/? or 1 Age = yearsPerformed By: #### EGFR ####[address] [address]Duqme Metabolic Profileon 17-41-8656Nkebc gap [Moles/Vol] 8 mmol/LNormal4-12[facility]red Hospital DaytonComment on above:Performed By: #### CD:[id number] ####[address] [address]Vbyynic [Mass/Vol]8.9 mg/dLNormal8.5-10.3BA[facility] Comment on above:Performed By: #### CD:[id number] ####[address] [address]Hcpkxfwi [Moles/Vol]105 mmol/L Wnyhlo72-407DsyblijfqKindred Hospital DaytonComment on above:Performed By: #### CD:[id number] ####[address] [address]PM5 [Moles/Vol]23 mmol/MJihbxm00-40AqtbqlkpsKindred Hospital DaytonComment on above:Performed By: #### CD:[id number] ####[address] [address]Frlqqfkwbu [Mass/Vol]0.89 mg/dLNormal0.44-1.03 [facility] Hospital DaytonComment on above:Performed By: #### CD:[id number] ####[address] [address]Xhagqhi [Mass/Vol]102 mg/jEBxte24-18MwcbbslueKindred Hospital DaytonComment on above: Performed By: #### CD:[id number] ####[address] [address]Lwqikrpcq [Moles/Vol]3.6 mmol/LNormal3.4-4.8BAultman Alliance Community HospitalComment on above:Performed By: #### CD:[id number] ####[address] [address]Mkyckd [Moles/Vol]136 mmol/VDnhczv325-433OhoqrneljKindred Hospital DaytonComment on above:Performed By: #### CD:[id number] ####[address] [address]Tgws nitrogen [Mass/Vol]21 mg/dLNormal8-26Kindred Hospital DaytonComment on above:Performed By: #### CD:[id number] ####[address] [address]Xsxg nitrogen/Creatinine [Mass ratio]23.6 mg/gjNvkm02.0-20.0[facility]red Hospital DaytonComment on above:Performed By: #### CD:[id number] ####[address] [address]TNR w/ Diffon 02-02-2025 Erythrocyte distribution width (RBC) [Ratio]13.1 %Dmbbxr36.6-14.8BAultman Alliance Community HospitalComment on above:Performed By: #### CBC ####[address] [address]Tiwfqpvhcn (Bld) [Volume fraction]41.0 %Ryqnty83.0-46.0[facility]red Hospital DaytonComment on above: Performed By: #### CBC ####[address] [address]Dpruhacqvb (Bld) [Mass/Vol]14.3 g/dDQxoouf04.0-16.0 [facility] Hospital DaytonComment on above:Performed By: #### CBC ####[address] [address]ETG (RBC) [Entitic mass]30.4 chMwckoz94.0-35.0[facility]red Hospital DaytonComment on above:Performed By: #### CBC ####[address] [address]PRVS66.8 %Jgumsj43.0-37.0[facility] Comment on above:Performed By: #### CBC ####[address] [address]YYY (RBC) [Entitic vol]87.4 dRHrubam16.0-100.0 [facility] Hospital DaytonComment on above:Performed By: #### CBC ####[address] [address]Ljuuaupm084 x10*3/khORwlxvk808-888Hfwrtldbh Valley Health SystemComment on above:Performed By: #### CBC ####[place] [address]Platelet mean volume (Bld) [Entitic vol]8.9 fLNormal6.7-10.6BAultman Alliance Community HospitalComment on above:Performed By: #### CBC ####[place], [place] [address]RBC4.69 x10*6/mcLNormal3.80-5.20 [facility] Hospital DaytonComment on above:Performed By: #### CBC ####[place], [place] [address]WBC5.5 x10*3/mcLNormal4.5-11.0[facility] Hospital DaytonComment on above:Performed By: #### CBC ####[place], [place] [address]Diff Autoon 10-44-1777Tzpo Absolute0.0 x10*3/mcLNormal0.0-0.2BAultman Alliance Community HospitalComment on above:Performed By: #### .Automated Diff ####[place] [address] Basophils/100 WBC (Bld)0.8 %Normal0.0-1.5BAultman Alliance Community HospitalComment on above:Performed By: #### .Automated Diff ####[place] [address]Eos Absolute0.2 x10*3/mcLNormal0.0-0.4 [facility]red Hospital DaytonComment on above:Performed By: #### .Automated Diff ####[place] [address] Eosinophils/100 WBC (Bld)3.5 %Normal0.0-5.4BAultman Alliance Community HospitalComment on above:Performed By: #### .Automated Diff ####[address] [address]Myiuo Absolute1.4 x10*3/mcLNormal1.0-4.8 [facility] Hospital DaytonComment on above:Performed By: #### .Automated Diff ####[address] [address] Lymphocytes/100 WBC (Bld)25.8 %Low27.2-40.8BAultman Alliance Community HospitalComment on above:Performed By: #### .Automated Diff ####[address] [address]Urjf Absolute0.6 x10*3/mcLNormal0.1-1.1 [facility] Hospital DaytonComment on above:Performed By: #### .Automated Diff ####[address] [address] Monocytes/100 WBC (Bld)10.7 %Normal3.7-11.9BAultman Alliance Community HospitalComment on above:Performed By: #### .Automated Diff ####[address] [address]Pqdfhy Absolute3.3 x10*3/mcLNormal1.8-7.7 [facility] Hospital DaytonComment on above:Performed By: #### .Automated Diff ####[address] [address]Pjfcbz Auto59.2 %Thrzoe17.2-70.8BAultman Alliance Community HospitalComment on above: Performed By: #### .Automated Diff ####[address] [address]GA helen perf SPECT rest stron 36-93-5975QM helen perf SPECT rest [facility] Main [address] [address] Nuclear Medicine Report Signed Patient: Robyn Thorpe MR#: [id number] : 1955 Acct:[id number] Age/Sex: 69 / F ADM Date: 01/21/25 Loc: EL Room: Type: [facility] CLI Attending Dr: Hay Rea MD Copies [...] Chantale Cardona M.D.01/24/2025 3:34 PM Dictation Location: [place] [address] Transcribed By: NADIA 01/24/25 1534 Dictated By: Chantale Cardona MD 01/24/25 1533 Signed By: 01/24/[address] [place] [address] Physician GroupNo Panel InformationOrdered By: Hay Rea on 09-45-8393GHRGGNBLDCOMMUNITY REGIONAL MED[facility]ENTER Main [place] [address] [place] [address] Cardiac Stress Test Signed Patient: Robyn Thorpe MR#: [id number] : 1955 Date of Service:0 01/21/25 Age/Sex: 69 / F ADM Date: 5 Loc: EL Room: Type: [facility] CLI Attending Dr: Hay Rea MD Copies to: MD Jairo MattC~ ORDERING PHYSICIAN: Dr. Rea INDICATION FOR STUDY/DIAGNOSIS: [...] MD 01/21/25 1026 Signed By: 01/21/25 1028 [facility] Work Phone: XR Ankle 2 Views Righton 03-02-2444SW Ankle 2 Views Right2 weightbearing views right ankle demonstrate: Right distal [...] noted. No acute fracture dislocations noted. No increasein soft tissue volume, density, or edema noted. Final Signed by: Brant Burden DPM Signed (Electronic Signature): 12/24/2024 3:45 pm Transcribed DT/TM: 12/24/2024 3:45 (If Report Is Signed, Electronically Signed in Other Vendor System)Normal [facility] Hospital DaytonXR Calcaneous Righton 47-43-4501TX Calcaneous RightLateral and calcaneal axial views demonstrate: Partial visualization [...] Is Signed, Electronically Signed in Other Vendor System)Normal [facility]red Hospital DaytonXR Foot 2 Views Righton 79-37-4137BA Foot 2 Views Right2 views right foot AP and oblique Medial demonstrate: Hardware at the lateral malleolus noted with better visualization on dedicated ankle views. No failure of the hardware backing out or lucency noted on these views. Contracture lesser digits noted. Noother foreign bodies noted. No increase in soft tissue volume, density, or edema noted. No acute fracture dislocations noted. No soft tissue calcifications noted. Final Signed by: Brant Burden DPM Signed (Electronic Signature): 12/24/2024 3:46 pm Transcribed DT/TM: 12/24/2024 3:46 (If Report Is Signed, Electronically Signed in Other Vendor System)Normal [facility]red Hospital DaytonFPG ECG *CARDIOLOGY ONLY*on 70-67-0376IQH ECG *CARDIOLOGY ONLY*[facility] Main [place] [address] [place] [address] Electrocardiograph Report Signed Patient: Robyn Thorpe MR#: [id number] : 1955 Acct:[id number] Age/Sex: 69 / F ADM Date: 12/15/24 Loc: EKGCARDIO Room: Type: [facility] Attending Dr: Hay Rea MD Ordering Provider: [...] previous ECGs available Confirmed by Hay Rea ([id number]) on 12/17/2024 8:54:47 AM Referred By: Electronically Signed By: Hay Rea Transcribed By: MUS Signed By Hay Rea MD 12/17/[address] [place], [place] [address]Amphetamine Screen Ql (U)Ordered By: Imflo Hagan on 90-58-4831Xkkthnpcwaxn Ql (U)NegativeNegMount Carmel Health SystemBarbiturates [Presence] in Urine by Screen methodOrdered By: Imad Asaad on 69-85-7609Ermgylkrzjhj Screen Ql (U)NegativeNegMount Carmel Health SystemBenzodiazepines Screen Ql (U)Ordered By: Imad Asaad on 71-12-2434Rymleytelmfxlrf Ql (U)NegativeNegMount Carmel Health SystemBenzoylecgonine [Presence] in Urine by Screen methodOrdered By: Imad Asaad on 41-62-4392Oglcogcnnvazhhr Screen Ql (U)NegativeNegativeSelect Medical Specialty Hospital - Columbus SouthCannabinoids [Presence] in Urine by Screen methodOrdered By: Imad Asaad on 71-89-9984Fqfwkonmpeak Screen Ql (U)PositiveHighNegMount Carmel Health SystemComment on above:These are unconfirmed results and should not be used for legal purposes. Drug Cut-Off Concentration: AMPH 1000 ng/mL JAMES 200 ng/mL TERESSA 200 ng/mL COCM 300 ng/mL OP 300 ng/mL PCP 25 ng/mL THC 20 ng/mLDrug Screen,Urineon 60-90-9898Snkhmaiwdtk Screen,UrineNegativeNormal NegativeChoctaw Health CenterComment on above:Performed By: #### URDS #### [facility] [address] [place] [address] USABarbiturate Screen,UrineNegativeNormalNegativeThe Excela Westmoreland HospitalComment on above:Performed By: #### URDS #### [facility] [address] [place] [address] USABenzodiazepines Screen,UrineNegativeNormalNegativeThe Atrium Health Physician GroupComment on above:Performed By: #### URDS #### [place] [address] USACannabinoid Screen,UrinePositiveHighNegativeMemorial Hospital Miramar Physician GroupComment on above:Result Comment: These are unconfirmed results and should not be used for legal purposes. Drug Cut-Off Concentration: AMPH 1000 ng/mL JAMES 200 ng/mL TERESSA 200 ng/mL COCM 300 ng/mL OP 300 ng/mL PCP 25 ng/mL THC 20 ng/mL PERFORMED BY: [place] [address] PATHOLOGIST CONING MACHINE OPERATOR FREDERIC CHRISTINA M.D.Performed By: #### URDS #### [place] [address] USACocaine Screen,UrineNegativeNormalNegativeThe Atrium Health Physician GroupComment on above:Performed By: #### URDS #### [place] [address] USAOpiate Screen,UrineNegativeNormalNegativeMemorial Hospital Miramar Physician GroupComment on above:Performed By: #### URDS #### [place] [address] USAPhencyclidine Screen,UrineNegativeNormalNegativeMemorial Hospital Miramar Physician GroupComment on above:Performed By: #### URDS #### [place] [address] USAOpiates [Presence] in Urine by Screen methodOrdered By: Imad Asaad on 57-11-9426Mydvadp Screen Ql (U)NegativeNegativeSelect Medical Specialty Hospital - [facility] SouthPathology Request for Lab Corpon 89-19-7666Simgwyiim Request for Lab CorpNormalThBoise Veterans Affairs Medical Center Physician GroupComment on above:Order Comment: PATHOLOGY GI SPECIMENResult Comment: See report. Scanned copy available in EMR. PERFORMED BY: [place] [address] PATHOLOGIST CONING MACHINE OPERATOR FREDERIC CHRISTINA M.D.Performed By: #### PATH TO [facility] #### [facility] [address] [place] [address] USAPhencyclidine Screen Ql (U)Ordered By: Wanda Hagan on 82-52-9993Htpkzwmijogia Ql (U)NegativeNegativeSelect Medical Specialty [facility] BUN & Creatinineon 20-35-8309Lfbwyqljfj [Mass/Vol]0.8 mg/dL0.50 - 0.90 mg/dLBON ADENA REGIONAL MEDICAL CENTEREst, Glokolby Filt Rate84- PINFBON ADENA REGIONAL MEDICAL CENTERComment on above: These results are not intended [...] tubular secretion. Interpretation and review of laboratory resultsAbnoDominion Hospital Urea nitrogen [Mass/Vol]24 mg/dLHigh8 - 23 mg/dLBON [facility]36on 31-32-729759Gx informed, she told me she will be looking for new heart doctor as she is not happy with us.NormalKettering Health Washington TownshipHCV Ab IA Qlon 12-11-2023 Interpretation and review of laboratory resultsAbnoHoward Young Medical Center SystemANTI HCV W/PCR REFLXReactiveAbnormalNRCTProMemorial HospitalCombeaumont hospital on above:Result Comment: Supplemental testing for HCV RNA by PCR has been ordered per CDC recommendations. Dydygm-cj-qubkrk ratio is >=1.00.Performed By: #### THYR, 17316-4 #### [facility] ([id number]) [address] [address] [address] [address], [address] [place], [place] [address]RYA RNA PAULY+probe Qnon 93-30-0470PAY RNA QUANT [id number] IU/mL AbnormalUndetectedProMemorial HospitalCombeaumont hospital on above:Result Comment: NOTE Result in log IU/mL is 7.28. ADDITIONAL INFORMATION The quantification range of this assay is 15 to 100,000,000 IU/mL (1.18 log to 8.00 log IU/mL). Testing was performed using the diomedes HCV test ([employer] Test Performed by: [facility] [address] [place] [address] Manual Arts Therapy Teacher: Raj Bhatti M.D. Ph.D.; CLIA# [id number] By: #### THYR, 16741-6 #### [facility] ([id number]) [address], [address] [place], [place] [address]Kjtlenfch C(HCV) Ab w/ Reflex to PCRon 44-11-3913JVB Ab IA Ql ReactiveAbnormalNon-Reactive^Non-ReactiveProMary Rutan HospitalComment on above: Supplemental testing for HCV RNA by PCR has been ordered per CDC recommendations. Phqfbj-ax-xyjbrz ratio is >=1.00. THYROID PROFILEon 75-08-8004Clxa T4 [Mass/Vol]1.29 ng/dLNormal0.61-1.60W[facility] Community HospitalComment on above:Performed By: #### THYR, 00580-2 #### [facility] ([id number]) [address] [facility], [address] [place], [place] [address]DRL6.45 uIU/mLLow0.49-4.67Madison HealthComment on above:Performed By: #### THYR, 32743-7 #### [facility] ([id number]) [address] [facility], [address] [place], [place] [address]Lidmsru profile includes TSH FT4on 43-21-2306Wgnbyvlnpfbogt and review of laboratory resultsAbnormalWooster Community HospitalTS Qn0.45 m[IU]/LLow [facility] SystemOffice Visiton 76-96-9053Lsqcgm-up [id number] Robyn Thorpe 1955 F Date Provider Department Center 11/17/2023 271-PRANAV TRINIDAD GEE [facility] Family History Problem Relation Age of Onset Diabetes Mother Coronary artery disease Mother Hypertension Mother Coronary artery disease Father Hypertension Father Other Father Coronary artery disease Brother Family Status - Relation Status Age at Mother Father Brother Level of Service:[address]92 [place] OFFICE/OUTPATIENT ESTABLISHED LOW MDM 20 [facility] HospitalOrders Onlyon 33-37-9393Ligydb [id number] Robyn Thorpe 1955 F Date Provider Department Center 11/17/2023 PAT BAL GEE [facility] Family History Problem Relation Age of Onset Diabetes Mother Coronary artery disease Mother Hypertension Mother Coronary artery disease Father Hypertension Father Other Father Coronary artery disease Brother Family Status - Relation Status Age at Mother Father BrotherMiami Valley Hospital36on 82-44-912615Blnggpz stopped by the office today c/o cough with lisinopril. Can we switch her to losartan?[facility] Valley HospitalOrders Onlyon 06-25-2023 Orders [id number] Robyn Thorpe 1955 F Date Provider Department Center 06/25/2023 120-VERONICA FLOR Jl . Family History Problem Relation Age of Onset Diabetes Mother Coronary artery disease Mother Hypertension Mother Coronary artery disease Father Hypertension Father Other Father Coronary artery disease Brother Family Status - Relation Status Age at Mother Father BrotherMiami Valley HospitalBasic Metabolic Panelon 99-06-9653Xxhwg gap [Moles/Vol]8 mmol/LLow9 - 17 mmol/LBON [employer] Calcium [Mass/Vol]9.4 mg/dL8.6 - 10.4 mg/dLBON Avenso HEALTHChloride [Moles/Vol]108 mmol/LHigh98 - 107 mmol/LBON SECCopan SystemsCO2 [Moles/Vol] 25 mmol/L20 - 31 mmol/LBON SECCopan SystemsCreatinine [Mass/Vol]0.68 mg/dL 0.50 - 0.90 mg/dLBON AppniqueGFR/1.73 sq M.predicted MDRD (S/P/Bld) [Vol rate/Area]- PINFBON ADENA REGIONAL MEDICAL CENTERComment on above: These results are not intended [...] therapy that affects renal tubular secretion. Glucose [Mass/Vol]109 mg/gEEyil22 - 99 mg/dLBON [facility] Interpretation and review of laboratory resultsAbnormalLIFEPOINT HEALTH Potassium [Moles/Vol]3.6 mmol/LLow3.7 - 5.3 mmol/LBON A[facility] REGIONAL MEDICAL CENTERSodium [Moles/Vol]141 mmol/L135 - 144 mmol/LBON [facility] VinylmintUrea nitrogen [Mass/Vol]20 mg/dL8 - 23 mg/dLBON [facility]ASC[facility] VinylmintUrea nitrogen/Creatinine (Bld) [Mass ratio]51Pohr3 - 20BON [facility] SOUTHBON [facility] CBC with Auto Differentialon 83-02-4339Chdzkbit Eos #0.20BON SECOURS [facility] MedicineAbsolute Immature Granulocyte0.03B[facility] MEDICAL CENTERMobile BridgeAbsolute Lymph # 1.05LowBON SECOURS [facility]ALS PAR[facility] MEDICAL CENTERMobile BridgeAbsolute [place] #0.78BON SECLuxim [facility]OS[facility] MEDICAL CENTERMobile Bridge Basophils (Bld) [#/Vol]0.04 10*3/uLBON SECCopan SystemsBasophils/100 WBC (Bld)1 %0 - 2 %BON SECGUADALUPE COUNTY HOSPITAL Ajaline [facility] HEALTHCARE MAIN CAMPUSEosinophils/100 WBC (Bld)3 %1 - 4 %BON SECCopan SystemsHematocrit (Bld) [Volume fraction]43.3 %36.3 - 47.1 %BON SECCopan SystemsHemoglobin (Bld) [Mass/Vol]14.3 g/dL11.9 - 15.1 g/dLBON SECASTRIA TOPPENISH HOSPITALMobile BridgeImmature granulocytes/100 WBC (Bld)1 %Znyn6XFX HOLY CROSS HOSPITALLuxim [facility] CENTERMobile BridgeInterpretation and review of laboratory resultsAbnormalBON HOLY CROSS HOSPITALZeenoh WAYNE HEALTHCARE MAIN CAMPUSLymphocytes/100 WBC (Bld)16 %Low24 - 43 %BON SECASTRIA TOPPENISH HOSPITALY HEALTHH (RBC) [Entitic mass]28.9 pg25.2 - 33.5 pgBON SECOURS [facility]ERSITY [facility]ALS PARMA MEDICAL CENTERY HEALTHHC (RBC) [Mass/Vol]33.0 g/dL28.4 - 34.8 g/dLBON SECASTRIA TOPPENISH HOSPITALY HEALTHV (RBC) [Entitic vol]87.5 fL82.6 - 102.9 fLBON SECOCHSNER MEDICAL CENTER HEALTHMonocytes/100 WBC (Bld)12 %3 - 12 %[facility] CENTERY HEALTHNRBC Automated0.00.0 per 100 WBCBON SECOURS [facility]OS[facility]ALS PAR[facility] MEDICAL CENTERY HEALTHPlatelet distribution width (Bld) [Ratio]13.2 %11.8 - 14.4 %[facility]CY HEALTHPlatelet mean volume (Bld) [Entitic vol]10.9 fL8.1 - 13.5 fLBON SECOCHSNER MEDICAL CENTER HEALTHPlatelets (Bld) [#/Vol]227 10*3/uLBON SECOCHSNER MEDICAL CENTER HEALTH RBC (Bld) [#/Vol]4.95 10*6/uL3.95 - 5.11 m/uLLIFEPOINT HEALTHSegmented neutrophils/100 WBC (Bld)67 %High36 - 65 %BON SECOCHSNER MEDICAL CENTER HEALTHSegs Absolute 4.37BON SECOURS [facility] CENTERY HEALTHWBC (Bld) [#/Vol]6.5 10*3/uLBON SECOCHSNER MEDICAL CENTER HEALTH BON SECOCHSNER MEDICAL CENTER HEALTHEKG 12 LeadOrdered By: Yanelis Quezada on 97-89-6766Qdsznn Bvkt88DHVVTK SECLuxim [facility] HEALTH Work Phone: P Hxel49rdzuawcMSM SECLuxim [facility] HEALTH Work Phone: P-R Tlzmfcya681 msBON SECOURS [employer]Y HEALTH Work Phone: Q-T Andcukrk526 msBON SECOURS [employer].Y HEALTH Work Phone: QRS Lvzwjbcz209 msBON SECOURS [facility] Work Phone: QTc Calculation (Stephan)495 msBON SECOURS [facility]ERY HEALTH Work Phone: R [id number] SECLuxim [facility] Work Phone: T Soxw38qoyfdjsMCB [employer] Work Phone: Ventricular Bteb27OWZXIV [employer] Work Phone: BON [employer] Work Phone: EKG 12 Leadon 19-33-5873Zbgfhz sinus rhythm Right bundle branch block Abnormal ECG No previous ECGs available Confirmed by YANELIS QUEZADA ([id number]) on 01/03/2023 11:52:02 [facility] Yanelis Quezada MD - 01/03/2023 Normal sinus rhythm Right bundle branch block Abnormal ECG No previous ECGs available Confirmed by YANELIS QUEZADA ([id number]) on 01/03/2023 11:52:02 PM [facility] App[employer]ique Work Phone: bUN & Creatinineon 67-54-5614Tojszmnxnz [Mass/Vol]0.78 mg/dL0.50 - 0.90 mg/dLBON AppniqueGFR/1.73 sq M.predicted MDRD (S/P/Bld) [Vol rate/Area]- PINFBON AppniqueComment on above: These results are not intended [...] that affects renal tubular secretion. Urea nitrogen [Mass/Vol]22 mg/dL8 - 23 mg/dLBON AppniqueBANNER IRONWO[facility] [facility] AppniqueCT UROGRAMon . Bilateral nonobstructing nephroliths larger on the right side of 6.5 mm. No ureteric obstruction. 2. Mild hepatic steatosis. Granulomas in liver and spleen. 3. Atherosclerotic disease. 4. Postsurgical changes lower lumbar spine. Other findings as above. [facility] CONSOLIDATEDEXAMINATION: CT UROGRAM 12/26/2022 1:23 pm TECHNIQUE: CT [...] free pelvic fluid, pelvic or inguinal adenopathy. Peritoneum/Retroperitoneum: No aortic aneurysm. Scattered calcified plaque in the abdominal aorta proximal iliac arteries. No retroperitoneal or mesenteric adenopathy. Bones/Soft Tissues: Postsurgical changes lower lumbar spine with intact indwelling hardware. Multilevel degenerative changes are present, predominantly moderate. No acute osseous or subcutaneous soft tissue abnormality. [facility] Katelyn Álvarez MD - 12/26/2022 EXAMINATION: CT UROGRAM 12/26/2022 [...] free pelvic fluid, pelvic or inguinal adenopathy. Peritoneum/Retroperitoneum: No aortic aneurysm. Scattered calcified plaque in [...] lower lumbar spine. Other findings as above. [employer] Work Phone: radiology Study observation (narrative)[employer] Phone: cT UROGRAMOrdered By: Katelyn Aceves on [id number] [employer] Phone: Urinalysis with [employer] 06-55-4083Dfabuuie, UA2+ AbnormalNoneBON AppniqueBilirubin UrineNegativeNEGATIVEBANNER IRONWOOD [facility]ENTER AppniqueColor, UAYellowYellowBANNER IRONWOOD MEDICAL CENTER AppniqueEpithelial Cells UA2 TO 5BON AppniqueGlucose Auto test strip (U) [Mass/Vol]NegativeNEGATIVE InTouch TechnologiesInterpretation and review of laboratory resultsAbnormal [facility] [employer] HEALTHKetones (U) [Mass/Vol]TRACEAbnormalNEGATIVEBANNER IRONWOOD MEDICAL CENTER AppniqueLeukocyte esterase Auto test strip Ql (U)NegativeNEGATIVEBANNER IRONWOOD MEDICAL CENTER [employer] HEALTHMucus, UA1+AbnormalNoneBON AppniqueNitrite Auto test strip Ql (U)NegativeNEGATIVEBANNER IRONWOOD MEDICAL [facility]ENTER [employer] HEALTHProtein (U) [Mass/Vol]6.0 mg/dL5.0 - 9.0[facility] Avenso HEALTHProtein (U) [Mass/Vol]1+AbnormalNEGATIVE InTouch TechnologiesRBC clumps Auto (Urine sed) [#/Area]5 TO 10B[facility] CENTERSpecific [place], UA1.323Orfg7.010 - 1.020[facility] Turbidity UAClearClearBON A[facility] REG[facility] MEDICAL CENTERUrine HgbTRACEAbnormalNEGATIVEBON [facility] MEDICAL CENTERUrobilinogen, UrineNormalNormalBON ADENA REGIONAL MEDICAL CENTERWBC, UA0 TO 2BON SECSELECT [facility]BON SECSELECT [facility]ICAL [facility] ED[facility] SHAWXR RIBS LT PA Sophia [id number] RIBS LT PA CHEXAM: XR RIBS LT PA CH HISTORY: Rib pain COMPARISON: 05/28/2022 TECHNIQUE: Four views of the left ribs. FINDINGS: No rib fracture indentified. The lungs are clear. IMPRESSION: 1. No acute rib fracture identified. Electronically authenticated by: JANEEN POOLE Date: 2022-12-03 10:28[facility] HospitalMRI BRAIN WO W CONon [id number] BRAIN WO W CONEXAMINATION: MRI BRAIN WO W CON HISTORY: Sensorineural [...] Electronically authenticated by: YANELIS ENGEL Date: 2022-10-22 13:55NormalThe [facility] CenterCREATININEon 59-90-9397Sdwqiddbsv [Mass/Vol]0.94 mg/dLNormal 0.55-1.02The [facility] CenterComment on above:Performed By: #### CREA ####[facility] [address], [place] [address]Lo. Yilan ChangEGFR-AF MAURITIAN>60Normal>=60The [facility] CenterComment on above: Performed By: #### CREA ####[facility] [address] [place] [id number]. Yilan ChangEGFR-NON AF MAURITIAN=60Normal>=60The [facility] CenterComment on above:Performed By: #### CREA ####[facility] [address] [place] [address]Dr. Yilan ChangMG MAMM SCREEN 3D NICKOLAS CADon 15-11-6945QO MAMM SCREEN 3D NICKOLAS CADPatient: ROBYN THORPE Exam Date: 08/13/2022 : 1955 Gender:F Ordering : JAIRO DALEY Admission #: [id number] Family : Order #: [id number] CLICK HERE TO VIEW EXAM RADIOLOGY REPORT [...] kidney cancer at age 65. LOCATION: [facility] BREAST COMPOSITION: Scattered areas [...] by: Xavier Hollingsworth MD on 08/14/2022 at 07:58[facility] HospitalXR DEXA BONE DENSITYon [id number] DEXA BONE DENSITYEXAMINATION: XR DEXA BONE DENSITY, 08/13/2022 1:16 PM [...] Electronically authenticated by: YANELIS ENGEL Date: 2022-08-13 16:09[facility] HospitalCT ABD/PELVIS WO CONon [id number] ABD/PELVIS WO CON EXAMINATION: CT ABD/PELVIS WO [...] Electronically authenticated by: YANELIS ENGEL Date: 2022-08-07 18:50NoMartins Ferry HospitalECHOCARDIO M/2D COMPLETEon [id number] M/2D COMPLETE Patient: ROBYN THORPE Exam Date: 06/26/2022 : 1955 Gender:F Ordering : DR PRANAV TRINIDAD M.D. Admission #: [id number] Family : JAIRO DALEY Order #: [id number] CLICK HERE TO VIEW EXAM ECHOCARDIOGRAM REPORT [...] by: Hay Vargas M.D. on 06/26/2022 at 18:22NoMartins Ferry HospitalAMYLASEon 85-21-6995Ctfgoot [Catalytic activity/Vol]48 U/KJehipo60-191 [facility] CampusComment on above:Performed By: #### CMP, YASH, LIPA ####[facility] Wofrimrw[address] [place], [place] [address]Dr. Yilan ChangCBC AUTO DIFFon [id number] #0.0 103/ulNormal0.0-0.1The [facility] CenterComment on above:Performed By: #### CBC ####[facility] Hqrrfzgjiz[address] [place], [place] [address]Dr.Yilan ChangBasophils/100 WBC (Bld)0.5 %Normal0.2-2.0The [facility] Medical CenterComment on above:Performed By: #### CBC ####[facility] K[address]ie[address] [place], [place] [address]Dr.Yilan ChangEO #0.2 103/ulNormal0.0-0.7The [facility] CenterComment on above:Performed By: #### CBC ####[facility] Xprxnzlq[address] [place], [place] [address]Dr.Yilan ChangEosinophils/100 WBC (Bld)2.4 %Normal 0.9-7.0The [facility] Medical CenterComment on above:Performed By: #### CBC ####[facility] [address] [place] [address]Dr.Malikapalma Gordon Erythrocyte distribution width (RBC) [Ratio]13.0 %Lcehso10.0-15.0The [facility] CenterComment on above:Performed By: #### CBC ####[facility] Rvwehcuvcs[address] [place], [place] [address]Dr.Tapan GordonHematocrit (Bld) [Volume fraction]43.6 %Pwndef59.0-48.0The [facility]aben HospitalComment on above:Performed By: #### CBC ####[facility] Eqsccpvjlv[address] [place], [place] [address]Dr.Tapan GordonHemoglobin (Bld) [Mass/Vol]14.6 g/dL Tbwxpy96.0-16.0The [facility] CenterComment on above:Performed By: #### CBC ####[facility] [address]qyrudf[address] [place], [place] [address]Dr. Tapan GordonIG #0.02 10e3/ulNormal0.00-0.03The [facility] CenterComment on above: Performed By: #### CBC ####[facility] Zltobhwzec[address] [place], [place] [address]Dr.Tapan GordonIG %0.3 %Normal0.0-0.5The [facility] CenterComment on above:Performed By: #### CBC ####[facility] [address]vjncnp[address] [place], [place] [address]Dr.Tapan GordonLYMPH #1.5 103/ulNormal1.2-3.8The [facility] CenterComment on above:Performed By: #### CBC ####[facility] Tlrtutquyy[address] [place], [place] [address]Dr. Tapan GordonLymphocytes/100 WBC (Bld)23.4 %Vjbacd00.5-60.0The [facility] Comment on above:Performed By: #### CBC ####[facility] Evbyffcjxd[address] [place], [place] [address]Dr.Tapan GordonMANUAL DIFF REQNONormalThe [facility] CenterComment on above:Performed By: #### CBC ####[facility] [address] [place] [address]Dr.Tapan EvanH (RBC) [Entitic mass]29.5 uvBbydxh24.7-34.0The [facility] CenterComment on above: Performed By: #### CBC ####[facility] [address]ogwigfk[address] [place], [place] [address]Dr.Malikapalma GordonHC (RBC) [Mass/Vol]33.5 g/dLNormal 29.9-35.2The [facility] CenterComment on above:Performed By: #### CBC ####[facility] Aoyuvclxqr[address] [place], [place] [address]Dr. Tapan GordonV (RBC) [Entitic vol]88.1 xQGwfauo77.0-99.0The [facility] Comment on above:Performed By: #### CBC ####[facility] Hopppnuhvx[address] [place], [place] [address]Dr.Tapan GordonMONO #0.6 103/ulNormal0.3-0.8 The [facility] CenterComment on above:Performed By: #### CBC ####[facility] O[address]tvtezp[address] [place], [place] [address]DrDesirae Gordon Monocytes/100 WBC (Bld)9.8 %Normal1.7-12.0The [facility] CenterComment on above: Performed By: #### CBC ####[facility] [address]fsesi[address] [place], [place] [address]Dr.Tapan GordonNEUT #4.0 103/ulNormal1.4-6.5The [facility] CenterComment on above:Performed By: #### CBC ####[facility] Nnaexazzzv[address] [place], [place] [address]Dr.Tapan GordonNeutrophils/100 WBC (Bld)63.6 %Ujsaur13.0-75.0The [facility] CenterComment on above:Performed By: #### CBC ####[facility] [address]elajz[address] [place], [place] [address]Dr.Yilan ChangPlatelet mean volume (Bld) [Entitic vol]10.3 fLNormal9.5-13.5 The [facility] CenterComment on above:Performed By: #### CBC ####[facility] [address] [place] [address]Dr.Tapan GordonPLT258 103/cgXohvbz323-928Hhm [facility] CenterComment on above:Performed By: #### CBC ####[facility] [address] [place] [address]Dr. Tapan GordonRBC4.95 106/ulNormal4.20-5.40The [facility] CenterComment on above: Performed By: #### CBC ####[facility] [address] [place] [address]Dr.Tapan GordonWBC6.3 103/ulNormal4.0-11.0The [facility] CenterComment on above:Performed By: #### CBC ####[facility] [address] [place] [address]Dr.Tapan GordonCT ABD/PELVIS WO CONon [id number] ABD/PELVIS WO CONEXAMINATION: CT ABD/PELVIS WO CON, 06/19/2022 9:34 AM [...] Electronically authenticated by: BRAULIO RODARTEOWS Date: 2022-06-19 10:13[facility] URINE PROFILEon 75-64-6245Wpfqvcplq Ql (U)NegativeNormal NEGATIVESumma Health Barberton CampusComment on above:Performed By: #### UMICRO, ERUR #### [facility] [address] [address] [address] Tapan Rosarioarity (U)CLEARNormalCLEARSumma Health Barberton CampusComment on above: Performed By: #### UMICRO, ERUR #### [facility] [address] [address] [address] Tapan Alcantar (U)LT. YELLOWNormalYCleveland Clinic Union HospitalComment on above:Performed By: #### UMICRO, ERUR #### [facility] [address] [address] [address] Tapan Mota micrscopic examination will be performed if indicated. NormalSumma Health Barberton CampusComment on above:Performed By: #### UMICRO, ERUR #### [facility] [address] [address] [address] Tapan GordonGlucose Ql (U)NegativeNormalNEGATIVESumma Health Barberton CampusComment on above:Performed By: #### UMICRO, ERUR #### [facility] [address] [address] [address] Tapan GordonHemoglobin Ql (U)LARGEAbnormalNEGATIVESumma Health Barberton Campus Comment on above:Performed By: #### UMICRO, ERUR #### [facility] [address] [address] [address] Tapan GordonKetones Ql (U)NegativeNormalNEGATIVESumma Health Barberton CampusComment on above:Performed By: #### UMICRO, ERUR #### [facility] [address] [address] [address] Tapan GordonLEUKOCYTESNegativeNormalNEGATIVEThe [facility] CenterComment on above:Performed By: #### GIBSON, ERUR #### [facility] [address] [address] [address] Tapan GordonNitrite Ql (U)NegativeNormalNEGATIVEThe [facility] CenterComment on above:Performed By: #### GIBSON, ERUR #### [facility] [address] [address] [address] Tapan GordonpH (U)7.0 [pH]Normal5-9The [facility] CenterComment on above: Performed By: #### GIBSON ERUR #### [facility] [address] [place] [address] Dr. Tapan GordonSPEC GRAVITY1.578Yijnrb6.005-<=1.025The [facility] CenterComment on above:Performed By: #### GIBSON ERUR #### [facility] [address] [place] [address] Dr. Tapan Duckworth PROTEINTRACENormalNEGATIVE/ TRACEThe [facility] CenterComment on above:Performed By: #### GIBSON ERUR #### [facility] [address] [place] [address] Dr. Tapan Rolle MICRO INDINDICATEDNormalThe [facility] CenterComment on above: Performed By: #### GIBSON ERUR #### [facility] [address] [place] [address] Dr. Tapan Mcmahanbilinogen Qn (U)2.0 {Aleida'U}/dLAbnormal0.2 - 1.0The [facility] on above:Performed By: #### GIBSON, ERUR #### [facility] [address] [place] [address] Dr. Tapan GordonLIPASEon 35-37-8047Nsanoz [Catalytic activity/Vol]182.0 U/LNormal 73.0-393.0The [facility] Hospitalment on above:Performed By: #### CMP, YASH, LIPA ####[facility] [address] [place] [address]Dr. Yilan ChangOCC BLD IMMUNO SCREENon 85-98-4787FZWFYC BLOODNegativeNormal NEGATIVEThe [facility] Hospitalment on above:Performed By: #### OBSCRN ####[facility] [address] [place] [address]Dr. Yilan ChangPROF 14(COMP METB)on 33-23-7960Driwvjk [Mass/Vol]3.5 g/dLNormal 3.4-5.0The [facility] Hospitalment on above:Performed By: #### CMP, YASH, LIPA ####[facility] [address] [place] [address]Dr. Yilan ChangAlbumin/Globulin [Mass ratio]1.0 {ratio}NormalThe [facility] Comment on above:Performed By: #### CMP, YASH, LIPA ####[facility] [address] [place] [address]Dr. Yilan ChangALP [Catalytic activity/Vol]76 U/CUimmqg22-328Wdp [facility] CenterCombeaumont hospital on above:Performed By: #### CMP, YASH, LIPA ####[facility] [address] [place] [address]Dr. Yilan ChangALT [Catalytic activity/Vol]64 U/L Critically tvxc97-41Uel [facility] CenterComment on above:Performed By: #### CMP, YASH, LIPA ####[facility] [address] [place] [address]Dr. Yilan ChangAnion gap [Moles/Vol]11.2 mmol/LNormalThe [facility] CenterComment on above:Performed By: #### CMP, YASH, LIPA ####[facility] [address] [place] [address]Dr. Yilan ChangAST [Catalytic activity/Vol]38 U/LCritically ttum17-57Hhg [facility] CenterComment on above:Performed By: #### CMP, YASH, LIPA ####[facility] [address] [place] [address]Dr. Yilan ChangBilirubin [Mass/Vol]0.7 mg/dL Normal0.2-1.0The [facility] CenterComment on above:Performed By: #### CMP, YASH, LIPA ####[facility] [address] [place] [address]Dr. Yilan ChangCalcium [Mass/Vol]8.7 mg/dLNormal8.5-10.1The [facility] CenterComment on above:Performed By: #### CMP, YASH, LIPA ####[facility] [address] [place] [address]Dr. Yilan ChangChloride [Moles/Vol]104 mmol/NCarmyr05-434Zcv [facility] CenterComment on above:Performed By: #### CMP, YASH, LIPA ####[facility] [address] [place], [place] [address]Dr. Yilan ChangCO2 [Moles/Vol]29.6 mmol/LNormal 21.0-32.0The [facility] CenterComment on above:Performed By: #### CMP, YASH, LIPA ####[facility] [address]cflvw[address] [place], [place] [address]Dr. Yilan ChangCreatinine [Mass/Vol]0.85 mg/dLNormal0.55-1.02[facility] Comment on above:Performed By: #### CMP, YASH, LIPA ####[facility] [address] [place], [place] [address]Dr. Yilan ChangEGFR-AF MAURITIAN>60Normal>=60The [facility] CenterComment on above:Performed By: #### CMP, YASH, LIPA ####[facility] [address]ptsi[address] [place], [place] [address]Dr. Yilan ChangEGFR-NON AF MAURITIAN>60Normal>=60The [facility] Comment on above:Performed By: #### CMP, YASH, LIPA ####[facility] [address]znyup[address] [place], [place] [address]Dr. Yilan ChangGlobulin (S) [Mass/Vol]3.6 g/dLNoMartins Ferry HospitalComment on above:Performed By: #### CMP, YASH, LIPA ####[facility] [address] [place] [address]Dr. Yilan ChangGlucose [Mass/Vol]125 mg/dLCritically kzuu03-692Lov [facility] CenterComment on above:Performed By: #### CMP, YASH, LIPA ####[facility] [address] [place] [address]Dr. Yilan Gordon Potassium [Moles/Vol]3.8 mmol/LNormal3.5-5.1The [facility] CenterComment on above:Performed By: #### DONELL YASH, LIPA ####[facility] [address] [place] [address]Dr. Yilan ChangProtein [Mass/Vol]7.1 g/dL Normal6.4-8.2The [facility] CenterComment on above:Performed By: #### DONELL, YASH, LIPA ####[facility] [address] [place] [address]Dr. Yilan ChangSodium [Moles/Vol]141 mmol/FMhwppo922-822Dey [facility] CenterComment on above:Performed By: #### CMP, YASH, LIPA ####[facility] [address] [place] [address]Dr. Yilan ChangUrea nitrogen [Mass/Vol]22.0 mg/dLCritically high7.0-18.0The [facility] CenterComment on above:Performed By: #### CMP, YASH, LIPA ####[facility] [address] [place] [address]Dr. Yilan ChangUrea nitrogen/Creatinine [Mass ratio]25.9 mg/mgNoMartins Ferry HospitalCombeaumont hospital on above:Performed By: #### CMP, YASH, LIPA ####[facility] [address] [place] [address]Dr. Yilan ChangURINE MICROSCOPIC ONLYon 06-19-2022 BACTERIATRACEAbnormalNONE SEENSumma Health Barberton CampusComment on above:Performed By: #### GIBSON, ERUR #### [facility] [address] [address] [address] Tapan Link identified Cx Nom (U)NOT INDICATEDNormalThe [facility] CenterCombeaumont hospital on above:Performed By: #### GIBSON, ERUR #### [facility] [address] [address] [address] Tapan Joel SEENNormalNONE SEENSt. [facility] Hospital on above:Performed By: #### GIBSON, ERUR #### [facility] [address] [address] [address] Tapan Sawant LM Nom (Urine sed)NONE SEENNormalNONE SEENSt. Francis Hospital on above:Performed By: #### GIBSON, ERUR #### [facility] [address] [address] [address] Phelan ChangEpithelial cells LM Ql (Urine sed)FEWAbnormalNONE SEEN /RAREThe [facility] CenterCombeaumont hospital on above:Performed By: #### GIBSON, ERUR #### [facility] [address] [address] [address] Tapan BarryUSPÉREZE SEENNormalNONE SEENSt. Francis Hospital on above:Performed By: #### GIBSON, ERUR #### [facility] [address] [address] [address] Tapan GomezKnoknZEQ61-76Udwzegnl9-3Rwp [facility] on above: Performed By: #### GIBSON, ERUR #### [facility] [address] [address] [address] Tapan JuarezBCNONE SEENNormalNONE SEENSt. Francis Hospital on above: Performed By: #### GIBSON, ERUR #### [facility] [address] [address] [address] Tapan GordonCT LUNG CANCER SCREENINGon 47-05-8169YD LUNG CANCER SCREENING EXAMINATION: CT LUNG CANCER [...] Electronically authenticated by: XAVIER HOLLINGSWORTH Date: 2022-05-29 07:22[facility] Vital Signs Date TimeVital SignValuePerforming LljjewaebSshgrhxx25-41-5438 09:33-0400Body dyzewn655.75 cmVjeff Daley ALLERGIST-C Work Phone: [facility]09-16-2025 09:33-0400 Body mass index (BMI) [Ratio]39.2 kg/m3SfogbalJairo Daley ALLERGIST-C Work Phone: [facility]09-16-2025 09:33-0400 Body itmfzs33.88 kgLaurarichellefarhana Daley ALLERGIST-C Work Phone: [facility]09-16-2025 09:33-0400 Diastolic blood iuamgkhe45 mm[Hg]Jairo Daley ALLERGIST-C Work Phone: [facility]09-16-2025 09:33-0400 Heart rate64 /minJairo Daley ALLERGIST-C Work Phone: [facility]09-16-2025 09:33-0400 Respiratory rate18 /minLaurarifarhana Daley ALLERGIST-C Work Phone: [phone] [place], [place] 1907009-16-2025 09:33-0400 SaO2% (BldA) [Mass fraction]94 %Jairo Daley ALLERGIST-C Work Phone: [phone]09-16-2025 09:33-0400 Systolic blood uhdiyolu205 mm[Hg]Jairo Daley ALLERGIST-C Work Phone: [phone] [place], [place] 1907004-04-2025 09:48-0400 Diastolic blood lcgvrysy19 mm[Hg]Jairo Daley ALLERGIST-C Work Phone: [phone] [place], [place] 1907004-04-2025 09:48-0400 Heart rate63 /minLaurarie Daley ALLERGIST-C Work Phone: [phone] [place], [place] 1907004-04-2025 09:48-0400 Systolic blood yomuavbd695 mm[Hg]Jairo Daley ALLERGIST-C Work Phone: [phone]02-27-2025 13:34-0500 Body cmValerifarhana Daley AUDIT CONSULTANT-ORAL SURGERY PHYSICIAN Work Phone: [facility]02-27-2025 13:34-0500Body mass index (BMI) [Ratio]37.69 kg/l1Qupqaho Daley AUDIT CONSULTANT-ORAL SURGERY PHYSICIAN Work Phone: [facility]02-27-2025 13:34-0500Body wdjxpjomort21.59 [degF]Jairo Daley AUDIT CONSULTANT-ORAL SURGERY PHYSICIAN Work Phone: [facility]02-27-2025 13:34-0500Body ihusap28.48 kgLaurarie Daley AUDIT CONSULTANT-ORAL SURGERY PHYSICIAN Work Phone: [facility]02-27-2025 13:34-0500Diastolic blood mm[Hg]Jairo Daley AUDIT CONSULTANT-ORAL SURGERY PHYSICIAN Work Phone: [facility]02-27-2025 13:34-0500Heart rate 80 /minJairo Daley AUDIT CONSULTANT-ORAL SURGERY PHYSICIAN Work Phone: [facility]02-27-2025 13:34-0500 Respiratory rate20 /minJairo Sweetillo AUDIT CONSULTANT-ORAL SURGERY PHYSICIAN Work Phone: [facility]02-27-2025 13:34-3498FcE6% (BldA) [Mass fraction]98 %Jairo Daley AUDIT CONSULTANT-ORAL SURGERY PHYSICIAN Work Phone: [facility]02-27-2025 13:34-0500Systolic blood jwymcefk673 mm[Hg]Jairo Daley AUDIT CONSULTANT-ORAL SURGERY PHYSICIAN Work Phone: [facility]02-26-2025 15:21-0500Body ffcvaj584.75 cmVjeff Sweetillo ALLERGIST-C Work Phone: [facility]02-26-2025 15:21-0500 Body mass index (BMI) [Ratio]38.3 kg/q8Bwpecrs Daley ALLERGIST-C Work Phone: [facility]02-26-2025 15:21-0500 Body .61 kgJairo Sweetillo ALLERGIST-C Work Phone: [facility]02-26-2025 15:21-0500 Diastolic blood mm[Hg]Jairo Sweetillo ALLERGIST-C Work Phone: [facility]02-26-2025 15:21-0500 Heart rate68 /minLaurarie Daley ALLERGIST-C Work Phone: [facility] [place] 15:21-0500 Respiratory rate18 /minLaurarie Daley ALLERGIST-C Work Phone: [facility]02-26-2025 15:21-0500 SaO2% (BldA) [Mass fraction]92 %Jairo Daley ALLERGIST-C Work Phone: [facility]02-26-2025 15:21-0500 Systolic blood ykbpcplr022 mm[Hg]Jairo Daley ALLERGIST-C Work Phone: [facility]01-15-2025 12:58-0500 Body cmValeroger Daley AUDIT CONSULTANT-ORAL SURGERY PHYSICIAN Work Phone: [facility]01-15-2025 12:58-0500Body mass index (BMI) [Ratio]36.28 kg/z2WkujwygJairo Sweetillo AUDIT CONSULTANT-ORAL SURGERY PHYSICIAN Work Phone: [facility]01-15-2025 12:58-0500Body sxcislaqbkd67.59 [degF]Jairo Sweetillo AUDIT CONSULTANT-ORAL SURGERY PHYSICIAN Work Phone: [facility] Pvktug59-64-3600 12:58-0500Body wdjikz40.9 kgJairo Sweetillo AUDIT CONSULTANT-ORAL SURGERY PHYSICIAN Work Phone: [facility]01-15-2025 12:58-0500Diastolic blood mm[Hg]Jairo Sweetillo AUDIT CONSULTANT-ORAL SURGERY PHYSICIAN Work Phone: [facility] Rdwcsk03-32-2719 12:58-0500Heart rate 61 /minJairo Sweetillo AUDIT CONSULTANT-ORAL SURGERY PHYSICIAN Work Phone: [facility]01-15-2025 12:58-0500 Respiratory rate18 /minJairo Sweetillo AUDIT CONSULTANT-ORAL SURGERY PHYSICIAN Work Phone: [facility]01-15-2025 12:58-3428ZqM9% (BldA) [Mass fraction]94 %Jairo Daley AUDIT CONSULTANT-ORAL SURGERY PHYSICIAN Work Phone: [facility]01-15-2025 12:58-0500Systolic blood bvzepkaq573 mm[Hg]Jairo Sweetillo AUDIT CONSULTANT-ORAL SURGERY PHYSICIAN Work Phone: [facility] Ponrci70-52-9339 14:20-0500Body sgqtio352 cmVjeff Daley APRN-ORAL SURGERY PHYSICIAN Work Phone: [facility]11-25-2024 14:20-0500Body mass index (BMI) [Ratio]36 kg/i5GkmxqwhJairo Daley APRN-ORAL SURGERY PHYSICIAN Work Phone: [facility]11-25-2024 14:20-0500Body .9 [degF]Jairo Daley APRN-ORAL SURGERY PHYSICIAN Work Phone: [facility]11-25-2024 14:20-0500Body vhsgxy01.17 kgJairo Daley APRN-ORAL SURGERY PHYSICIAN Work Phone: [facility]11-25-2024 14:20-0500Diastolic blood earjnlnn11 mm[Hg]Jairo Daley APRN-ORAL SURGERY PHYSICIAN Work Phone: [facility]11-25-2024 14:20-0500Heart rate 67 /minJairo Daley APRN-ORAL SURGERY PHYSICIAN Work Phone: [facility]11-25-2024 14:20-0500 Respiratory rate18 /minJairo Daley APRN-ORAL SURGERY PHYSICIAN Work Phone: [facility]11-25-2024 14:20-4007KgT2% (BldA) [Mass fraction]91 %Jairo Daley APRN-ORAL SURGERY PHYSICIAN Work Phone: [facility]11-25-2024 14:20-0500Systolic blood ghdbxfub905 mm[Hg]Jairo Daley APRN-ORAL SURGERY PHYSICIAN Work Phone: [facility]10-22-2024 08:15-0400Body haggam317 Niyah Daley APRN-ORAL SURGERY PHYSICIAN Work Phone: [facility]10-22-2024 08:15-0400Body mass index (BMI) [Ratio]36.6 kg/j9RgtwzldJairo Daley AUDIT CONSULTANT-ORAL SURGERY PHYSICIAN Work Phone: [facility]10-22-2024 08:15-0400Body kkanqrmauoh89.5 [degF]Jairo Daley AUDIT CONSULTANT-ORAL SURGERY PHYSICIAN Work Phone: [facility]10-22-2024 08:15-0400Body .71 kgJairo Daley AUDIT CONSULTANT-ORAL SURGERY PHYSICIAN Work Phone: [facility]10-22-2024 08:15-0400Diastolic blood lwwcceux93 mm[Hg]Jairo Dalye AUDIT CONSULTANT-ORAL SURGERY PHYSICIAN Work Phone: [facility]10-22-2024 08:15-0400Heart rate 64 /minJairo Daley AUDIT CONSULTANT-ORAL SURGERY PHYSICIAN Work Phone: [facility]10-22-2024 08:15-0400 Respiratory rate18 /minJairo Daley AUDIT CONSULTANT-ORAL SURGERY PHYSICIAN Work Phone: [facility]10-22-2024 08:15-2791NxA3% (BldA) [Mass fraction]92 %Jairo Daley AUDIT CONSULTANT-ORAL SURGERY PHYSICIAN Work Phone: [facility]10-22-2024 08:15-0400Systolic blood ldkfnkov653 mm[Hg]Jairo Daley AUDIT CONSULTANT-ORAL SURGERY PHYSICIAN Work Phone: [facility]10-02-2024 09:40-0400Diastolic blood ljnqolas91 mm[Hg]ALLERGIST-C Jairo Daley Work Phone: [facility]10-02-2024 09:40-0400 Heart rate72 /minNP-C Jairo Daley Work Phone: [facility]10-02-2024 09:40-0400 Respiratory rate20 /minNP-C Jairo Daley Work Phone: [facility]10-02-2024 09:40-0400 SaO2% (BldA) [Mass fraction]98 %ALLERGIST-C Jairo Daley Work Phone: [facility]10-02-2024 09:40-0400 Systolic blood drgrajts110 mm[Hg]ALLERGIST-C Jairo Daley Work Phone: [facility]10-02-2024 06:51-0400 Body .48 cmNP-C Jairo Daley Work Phone: [facility]10-02-2024 06:51-0400 Body deatqk32.98 kgNP-C Jairo Daley Work Phone: [facility]09-19-2024 12:09-0400 Body hydwjh463.3 cmCristobal Owens DPM Work Phone: [facility] HospitalGuzatalaoe97-36-3651 12:09-0400Body mass index (BMI) [Ratio]35.22 kg/d1RmbrpugmCristobal Owens DPM Work Phone: [facility] HospitalTjbftwuqwr09-02-1608 12:09-0400Body tlkruu10.63 kgCristobal Owens DPM Work Phone: [facility] HospitalVcgomonpfn07-25-5341 12:09-0400Diastolic blood htbfikqj34 mm[Hg]Cristobal Owens DPM Work Phone: [facility] HospitalYghbvydngn68-97-7527 12:09-0400Heart rate74 /min Cristobal Owens DPM Work Phone: [facility] HospitalEgcuidklcm85-87-8691 12:09-0400Respiratory rate18 /minCristobal Owens DPM Work Phone: [facility] HospitalDmsmfnjhap39-68-0678 12:09-0400Systolic blood uncbawcr138 mm[Hg]Cristobal Owens DPM Work Phone: [facility] HospitalYnwvhpxosu52-26-5181 09:24-0400Body rdcblo257 cm Jairo Daley AUDIT CONSULTANT-ORAL SURGERY PHYSICIAN Work Phone: [facility]06-24-2024 09:24-0400Body mass index (BMI) [Ratio]37.36 kg/o5OekfqykJairo Daley APRN-ORAL SURGERY PHYSICIAN Work Phone: [facility] CenterUshi Wvnuff66-24-9953 09:24-0400Body refxesiqvew97.81 [degF]Jairo Daley APRN-ORAL SURGERY PHYSICIAN Work Phone: [facility] Txixjy38-44-9483 09:24-0400Body .66 kgJairo Daley APRN-ORAL SURGERY PHYSICIAN Work Phone: [facility] Fhbixt51-60-4121 09:24-0400Diastolic blood dpiutdxh28 mm[Hg]Jairo Daley APRN-ORAL SURGERY PHYSICIAN Work Phone: [facility] Yftyjm45-66-5165 09:24-0400Heart rate 64 /minJairo Daley APRN-ORAL SURGERY PHYSICIAN Work Phone: [facility] Dssnvl39-03-7350 09:24-0400 Respiratory rate18 /minJairo Daley APRN-TESS Work Phone: [facility] Dyjipi40-26-3007 09:24-8161IwD1% (BldA) [Mass fraction]95 %Jairo Daley APRN-TESS Work Phone: [facility] Viwist94-36-5506 09:24-0400Systolic blood uimjeczo066 mm[Hg]Jairo Daley APRN-ORAL SURGERY PHYSICIAN Work Phone: [facility] Rajjzf42-23-3786 09:40-0500Body tguchi604 cmVjeff Daley APRN-ORAL SURGERY PHYSICIAN Work Phone: [facility] HospitalHooja Tdxise37-01-4469 09:40-0500Body mass index (BMI) [Ratio]36.6 kg/m9VoewzmiJairo Daley APRN-ORAL SURGERY PHYSICIAN Work Phone: [facility] CenterUshi Lvgjzi71-70-5807 09:40-0500Body gyhcuzzzrub36.01 [degF]Jairo Daley APRN-ORAL SURGERY PHYSICIAN Work Phone: [facility]02-22-2024 09:40-0500Body hvyhof61.71 kgJairo Daley AUDIT CONSULTANT-ORAL SURGERY PHYSICIAN Work Phone: [facility]02-22-2024 09:40-0500Diastolic blood ciaffila66 mm[Hg]Jairo Daley AUDIT CONSULTANT-ORAL SURGERY PHYSICIAN Work Phone: [facility]02-22-2024 09:40-0500Heart rate 64 /minJairo Daley AUDIT CONSULTANT-ORAL SURGERY PHYSICIAN Work Phone: [facility]02-22-2024 09:40-4165WrB7% (BldA) [Mass fraction]93 %Jairo Daley APRN-ORAL SURGERY PHYSICIAN Work Phone: [facility]02-22-2024 09:40-0500Systolic blood ucaupqna435 mm[Hg]Jairo Daley APRN-ORAL SURGERY PHYSICIAN Work Phone: [facility]02-15-2024 15:54-0500Body smcnsi958.3 cmCristobal Christopher DPM Work Phone: [facility] HospitalHwmtwpmkni04-08-2969 15:54-0500Body mass index (BMI) [Ratio]35.22 kg/k9LillqqfgCristobal Owens DPM Work Phone: [facility] HealthKhbrdzojon80-59-7758 15:54-0500Body qgalky68.63 kgCristobal Owens DPM Work Phone: [facility] HospitalKferufnawp67-71-5056 15:54-0500Diastolic blood fjxyivxi09 mm[Hg]Cristobal Owens DPM Work Phone: [facility] HospitalJheogxwrii29-48-3767 15:54-0500Heart rate88 /min Cristobal Owens DPM Work Phone: noCarondelet HealthBfkrplatvn88-97-2189 15:54-0500Systolic blood mbizxofy167 mm[Hg]Cristobal Owens DPM Work Phone: [facility] Healthcare Encounters Encounter DateEncounter TypeCare ProviderFacilityStart: 07-18-2025 End: 77-77-7942ruthmbegrvAEMC D DORKOSKIEAdena Pike Medical Center HospitalStart: 07-18-2025 End: 77-72-3449Gzkxpxpnwg hospital visit by Markos Britt CNP Work Phone: [facility] LABComment on above:Gross hematuria; Mixed incontinence; Incomplete bladder emptyingStart: 07-12-2025 End: 44-29-8851rlvqniafrgTDTSTGB J CASTTERRANCEAdena Pike Medical Center HospitalStart: 07-12-2025 End: 74-40-8487Notznnmkkm hospital visit by Julio Roger Huerta [address] [place] [address] RadiologyComment on above:Renal calculusStart: 07-05-2025 End: 41-09-3585xbympbztflBfoxvanEarline MCKEON Work Phone: [facility] Work Phone: Start: 07-05-2025 End: 72-58-7178Rxqeakq encounter procedureGeorge Trey Rea MD-[facility] Work Phone: Start: 06-24-2025 End: 20-67-1228ddrhjmalfdAktiojtJairo URBINAFacility:Ortho/Sport Med Start: 04-18-2025 End: 03-57-3863pavgbaclkjHkehxdxEarline URBINAFacility:Ortho/Sport Med Start: 03-11-2025 End: 93-47-2773usjdduoyclWrbsenr Lynn Laudick PA-CFacility:Ortho/Sport MedStart: 02-28-2025 End: 20-25-5842uybzkgogogPjodtghJairo URBINAFacility:Ortho/Sport Med Start: 02-15-2025 End: 46-29-3711zxspjcyydiMpitfyrJairo URBINAFacility:Ortho/Sport Med Start: 02-10-2025 End: 83-37-7492ipqpdewutnNsshv Jon Johnson DPMFacility:[facility] Start: 02-02-2025 End: 14-85-4637jizajehfdoVnsymgwCelina Daley APRN-CNPFacility:[facility] Hospitaltart: 01-31-2025 End: 03-07-0187pvsiexteibDhwynylCelina Daley APRN-CNPFacility:[facility] Hospitaltart: 01-80-0850Kcx-patient / Non-visitJairo Daley ALLERGIST-C Work Phone: [facility] Work Phone: Start: 01-21-2025 End: 16-83-2697Zudbxps encounter procedureValeroger Daley ALLERGIST-C Work Phone: [facility]-Electrodiagnostics Work Phone: Start: 01-21-2025 End: 01-54-8125txyaxambysBzexaic J Castillo ALLERGIST-C Work Phone: [facility] Work Phone: Start: 12-24-2024 End: 30-25-4409cvgvoelqizSlqub Jon Johnson DPMFacility:Ortho/Sport MedStart: 12-16-2024 End: 03-22-4776Ewkxng outpatient visit 25 minutesJairo Daley APRN-ORAL SURGERY PHYSICIAN Work Phone: [facility] CenterMedidc [facility] Internal Medicine - Family MedicineComment on above:Benign essential HTN (Primary Dx); Arthritis, multiple joint involvement; Fibromyalgia; Acquired hypothyroidism; Primary insomnia; Chronic bronchitis with emphysema ([facility]); History of depressionStart: 12-16-2024 End: 29-06-8279qfrkvlbjnpYEQIQEZ J CASTILLOOhio [facility] Start: 12-15-2024 End: 97-36-4884hnrwkwbjfpCbtjoag J Castillo ALLERGIST-C Work Phone: [facility] Work Phone: Start: 12-15-2024 End: 95-70-2013Etdokxz encounter procedureJairo Daley ALLERGIST-C Work Phone: [employer] [facility] [facility]Former[facility] Work Phone: Start: 11-03-2024 End: 10-96-2231Xvlpxr outpatient visit 15 minutesJairo Daley AUDIT CONSULTANT-ORAL SURGERY PHYSICIAN Work Phone: [facility] Internal Medicine - Family MedicineComment on above:Benign essential HTN (Primary Dx); Obesity, morbid ([facility])Start: 11-03-2024 End: 06-58-0184pbvudfivqjAISKLRUSnoqualmie Valley Hospital [facility] Start: 10-21-2024 End: 25-50-7236Uzftvemlr encounterMisty Vanesa [facility] Physicians Internal Medicine - Family [facility]atart: 10-06-2024 End: 12-89-0842ptjgtmlrwiQGKDEYBSnoqualmie Valley Hospital [facility] Start: 09-13-2024 End: 99-66-4432Mvabfcx encounter procedureValeroger Daley AUDIT CONSULTANT-ORAL SURGERY PHYSICIAN Work Phone: [facility] Internal Medicine - Family MedicineComment on above:Medicare annual wellness visit, subsequent (Primary Dx); COPD exacerbation ([facility])Start: 09-13-2024 End: 77-26-9081qxbsglcxsiJMBTYLRSnoqualmie Valley Hospital [facility] Start: 08-10-2024 End: 83-36-3746Vomkpe outpatient visit 25 minutesJairo Daley AUDIT CONSULTANT-ORAL SURGERY PHYSICIAN Work Phone: [facility] Internal Medicine - Family MedicineComment on above:Fibromyalgia (Primary Dx); Need for influenza vaccination; Arthritis, multiple joint involvement; Anxiety and depression; Acquired hypothyroidism; Benign essential HTN; Primary insomnia; Chronic bronchitis with emphysema ([facility]); Mixed hyperlipidemia; Screening for diabetes mellitus (DM)Start: 08-10-2024 End: 57-24-6845ncsvpefgwsSXOLWSQSnoqualmie Valley Hospital [facility] Start: 72-38-4558Xhg-patient / Lmb-aqtycKO-STika Daley Work Phone: [facility] Work Phone: Start: 07-21-2024 End: 34-84-2019Oykwkyjfv to same day surgery centerLINAD Daley Work Phone: [facility]-Dig[facility]ive [facility] Work Phone: Start: 07-21-2024 End: 26-50-4282dsyglwnjtdYOLINDA Daley Work Phone: [facility] Work Phone: Start: 07-09-2024 End: 44-54-9138Kjakgsgwjl hospital visit by Markos Daley APRN - ORAL SURGERY PHYSICIAN Work Phone: mthz LaboratoryComment on above:Microscopic hematuria Start: 07-08-2024 End: 05-22-4043Kszrjc Omaira Owens DPM Work Phone: [facility] PODIATRYStart: 07-08-2024 End: 78-32-1780Zlkxdz Omaira Owens DPM Work Phone: [facility] PODIATRYStart: 07-08-2024 End: 40-55-7710Xdgcqr outpatient visit 15 minutesNicmirtha Owens DPM Work Phone: [facility] PODIATRYComment on above:Peroneal tendon tear, right, initial encounter (Primary Dx); Onychomycosis; Toe pain, bilateralStart: 07-08-2024 End: 99-60-4526ddfpmfztahZGWJOBFY A BROWNNot AvailableStart: 05-13-2024 End: 33-29-4434Lulkcsrnn encounterJairo Daley APRN-ORAL SURGERY PHYSICIAN Work Phone: [facility] - Family MedicineStart: 04-29-2024 End: 65-41-3230qxranipwloNVQLTAKL A BROWNNot AvailableStart: 82-68-4543Dso- patient / Boi-aqprtQP-MLINDA Daley Work Phone: [facility] Work Phone: Start: 04-12-2024 End: 51-99-1526Qptobm outpatient visit 25 minutesJairo Daley APRN-TESS Work Phone: [facility] Internal Medicine - Family MedicineComment on above:Benign essential HTN (Primary Dx); Anxiety and depression; Arthritis, multiple joint involvement; Fibromyalgia; Acquired hypothyroidism; Primary insomnia; Chronic bronchitis with emphysema ([facility]); Special screening for malignant neoplasm of colonStart: 04-12-2024 End: 45-42-6093ngcvkyjuzyTWGGEBJBaylor [facility] Start: 04-08-2024 End: 34-94-7097SyrbvfPliufosChapo Daley APRN-ORAL SURGERY PHYSICIAN Work Phone: [facility] Internal Medicine - Family MedicineComment on above:FibromyalgiaStart: 03-24-2024 End: 60-20-1627DyqxxrTytabbgRoxie Daley APRN-TESS Work Phone: [facility] Internal Medicine - Family MedicineComment on above:Primary insomniaStart: 03-11-2024 End: 24-55-5697kxoyamqqgoIABVOWQB A BROWNNot AvailableStart: 02-19-2024 End: 67-02-3439gijggcecluDAHOCKBZ A BROWNNot AvailableStart: 48-11-7985Lirglh Isidra Vanesa [facility] Physicians Internal Medicine - Family MedicineComment on above:Chronic bronchitis with emphysema; Arthritis, multiple joint involvement; Anxiety and depression; Fibromyalgia; Acquired hypothyroidism; Benign essential HTN; Primary insomnia; History of kidney stonesStart: 70-69-2948AnslejIianb Vanesa [facility] Physicians Internal Medicine - Family MedicineComment on above:Chronic bronchitis with emphysema; Arthritis, multiple joint involvement; Anxiety and depression; Fibromyalgia; Acquired hypothyroidism; Benign essential HTN; Primary insomniaStart: 12-11-2023 End: 29-84-4012lnxfywkbnmBOMXPHX [facility] Systemtart: 12-11-2023 End: 46-09-7100Ymcxle outpatient visit 25 minutesJairo Daley APRN-ORAL SURGERY PHYSICIAN Work Phone: [facility] Medicine - Family MedicineComment on above:Acquired hypothyroidism (Primary Dx); Panlobular emphysema ([facility]); Obesity, morbid ([facility]); Need for hepatitis C screening test; Arthritis, multiple joint involvement; Anxiety and depression; Fibromyalgia; Benign essential HTNStart: 12-04-2023 End: 43-89-7738Lttbxg outpatient new 30 minutesCristobal Owens DPM Work Phone: [facility] CI PODIATRYComment on above:DJD (degenerative joint disease), ankle and foot, right (Primary Dx); Other specified disorders of synovium, right ankle and foot; Onychomycosis; Toe pain, bilateralStart: 12-04-2023 End: 00-06-4670kwbhyvucecQQPYBXWD A BROWNNot AvailableStart: 69-48-5785Fsgry abstractingCristobal Owens DPM Work Phone: [facility] PODIATRYStart: 10-62-0329Fmltpxglu encounter Hilario Hurst CMAProMedica Physicians Internal Medicine - Family [facility]atart: 11-17-2023 End: 58-38-4518eqmnruagoxAUJJ [facility] Foundationtart: 01-03-2023 End: 80-85-3599Axvcbfg encounter Trish Britt CNP Work Phone: m[facility]z EKGStart: 01-03-2023 End: 22-20-2636Rknleiknpn hospital visit by Markos Britt CNP Work Phone: m[facility]z EKGComment on above:Renal calculus; Pre-op testingStart: 12-26-2022 End: 94-20-5567Vzulfuljga hospital visit by physicianVa [facility] Cat Scan RoomMTHZ LaboratoryComment on above:Renal calculus; Gross hematuriaStart: 12-12-2022 End: 47-03-5034Dsmqyiuudr hospital visit by Markos Britt CNP Work Phone: mthz LaboratoryComment on above:Renal calculus; Gross hematuriaStart: 12-03-2022 End: 21-53-8594pbxpljikalQVXY CURETONFacility:G5Fnuic: 10-21-2022 End: 31-75-8364eojzdivtglRT EULALIO FREITASSFacility:X4Mprol: 09-11-2022 End: 75-29-9571Lodwiocgl department patient visitRANDAL Sahu SHOPEFacility:SIS Start: 08-13-2022 End: 19-89-5250lcgpecchnbTY XAVIER HOLLINGSWORTHFacility:Y4Miswm: 08-07-2022 End: 70-50-5088kqwdikejkaAP YANELIS MATTHEWSERFacility:U0Xgjqn: 07-03-2022 End: 89-96-4274urnvurghgtFL YANELIS RAMOSEBERFacility:M5Rhwca: 06-26-2022 End: 62-82-8796ltiplzjvecAF EHAB ELTAHAWYFacility:B2Mhztc: 06-19-2022 End: 49-34-2509uikdknwqhaVOPJPWW BARROWSFacility:D6Hgdib: 05-28-2022 End: 47-73-3019efyurygsadHF XAVIER HOLLINGSWORTHFacility:O9Nsucw: 04-03-2022 End: 72-63-5663fwsrrfkxmiWG YANELIS ENGELFacility:Y8Wsbuw: 03-08-2022 End: 16-76-3654qpimnirtgzWQ YANELIS ENGELFacility:H1 Procedures DateProcedureProcedure DetailPerforming ClinicianStart: 54-14-0747Uexba dip stick/tablet reagent auto microscopyJulifarhana Stephens AUDIT CONSULTANT - ORAL SURGERY PHYSICIAN Work Phone: Start: 32-51-6189Vydee depression screening assessment Jairo Daley AUDIT CONSULTANT-ORAL SURGERY PHYSICIAN Work Phone: Start: 12-91-4468Bnpie depression screening assessment Jairo Daley AUDIT CONSULTANT-ORAL SURGERY PHYSICIAN Work Phone: Start: 81-39-5115Pkuxqqdrn colonoscopyNP-C Jairo Daley Work Phone: Start: 03-98-6829Rxqnx of urea nitrogen quantitative Adele Black AUDIT CONSULTANT - ORAL SURGERY PHYSICIAN Work Phone: start: 26-37-8937Ecspx depression screening assessment Jairo Daley AUDIT CONSULTANTPAUL [facility]. [facility] STATE [facility] Work Phone: Start: 64-00-0461Majni depression screening assessment Jairo Daley [facility] Work Phone: Start: 83-36-2830Cmqwp depression screening assessment Hilario Natali CMAStart: 24-80-6390Vjv routine ecg w/least 12 lds w/i&rBethany W Wayne [facility] Work Phone: Start: 50-44-5306Eqsnh metabolic panel calcium total Adele Black [facility] Work Phone: Start: 73-92-1539Ow abdomen & pelvis w/o contrst 1/> body reThomshaquille Dominguez MD Work Phone: Start: 08-44-2166Bqirp of urea nitrogen quantitative Jason Dominguez MD Work Phone: Start: 78-29-4104Qaodj dip stick/tablet reagent auto microscopyThomas Alberto ISRAEL Work Phone: Start: 40-43-6842XqehctfhsawIwdkgt Natali [facility] Plan of Treatment DateCare ActivityDetailAuthorStart: 96-24-3072UOmM/Tdap/Td vaccine (2 - Td or Tdap)DTaP/Tdap/Td vaccine (2 - Td or Tdap)[facility] HospitalStart: 65-76-3154Ivliukwufkz Syncytial Virus (RSV) or age 60 yrs+ (1 - 1-dose 75+ series)Respiratory Syncytial Virus (RSV) or age 60 yrs+ (1 - 1-dose 75+ series)[facility] HospitalStart: 24-68-9230Tlghr BMI ScreeningAdult BMI ScreeningProGuernsey Memorial Hospital SystemStart: 02-38-5081Bkmnfduqjh Screening Depression ScreeningProGuernsey Memorial Hospital SystemStart: 31-24-5148Xxxj Risk Screening Fall Risk ScreeningProGuernsey Memorial Hospital SystemStart: 41-40-8968Zoqauen Screening Tobacco ScreeningParkview Health Bryan Hospitalca Health SystemStart: 92-58-7381Fwgeo BMI Follow Up PlanAdult BMI Follow Up PlanMarion Hospital Health SystemStart: 74-47-0772Dzhpt BMI ScreeningAdult BMI ScreeningAshtabula County Medical Center SystemStart: 92-43-3646Kmrqcfz ScreeningTobacco ScreeningAshtabula County Medical Center SystemStart: 71-93-3390Fkuwc BMI Follow Up PlanAdult BMI Follow Up PlanAshtabula County Medical Center SystemStart: 10-06-2025 Adult BMI ScreeningAdult BMI ScreeningAshtabula County Medical Center SystemStart: 10-06-2025 Tobacco ScreeningTobacco ScreeningAshtabula County Medical Center SystemStart: 84-56-7621Vwwbc BMI ScreeningAdult BMI ScreeningAshtabula County Medical Center SystemStart: 09-13-2025 Depression ScreeningDepression ScreeningAshtabula County Medical Center SystemStart: 09-13-2025 Fall Risk ScreeningFall Risk ScreeningAshtabula County Medical Center SystemStart: 09-13-2025 Medicare Annual Wellness VisitMedicare Annual Wellness VisitAshtabula County Medical Center SystemStart: 28-14-6282Ggtnjkg ScreeningTobacco ScreeningAshtabula County Medical Center System Start: 09-07-2025 End: 64-11-7546Fluhdyb encounter jyhdyoebc69/19/2025 1:15 PM EST Office Visit [facility] [address] [place] [address] Filiberto Sow PA-C [address] [facility] [address] [place] [address] 6-8w med check/ [facility]vrMER[facility] Part [facility] HospitalComment on above:6-8w med check/ pvrStart: 25-73-9070Tegjp BMI Follow Up PlanAdult BMI Follow Up Plan [facility] SystemStart: 82-81-2732Xyuem BMI ScreeningAdult BMI Screening [facility] SystemStart: 26-81-5313Sixqlec ScreeningTobacco Screening [facility] SystemStart: 07-18-2025 End: 50-30-9841Cchncwc encounter fobkltgxy01/29/2025 10:00 AM EDT Office Visit [facility] Part of [address] [place] [id number] Filiberto Sow PA-C [address] [place] [address] [address] [place] [address] 1 year F/U KUB. [facility] Part [facility] HospitalComment [facility] above:1 year F/U KUB.Start: 06-01-7524GgxwtpbuuUniversity Hospitals Geneva Medical Centertart: [id number] Vaccine ( season)COVID-19 Vaccine ( season)[facility]: [facility] End: 89-64-1017Hgbipwx encounter dzgiiqwin53/21/2025 9:00 AM EDT Office Visit [facility] Part of [address] [place] [id number] Adele Black, AUDIT CONSULTANT - ORAL SURGERY PHYSICIAN [address] [place] [address] [address] [place] [id number] 1yr [facility] UROLOGMadison HealthComment on above: 1yr PVR KUBStart: 00-04-0116Ktmqpkwhj vaccinationFlu vaccine (#1)[facility] HospitalStart: 05-18-2025 End: 46-58-1746Bbjqfxg encounter /30/2025 1:00 PM EDT Office Visit [facility] [address] [place] [address] Jairo Daley, AUDIT CONSULTANT-ORAL SURGERY PHYSICIAN [address] [place] [address] [facility] - Family MedicineStart: 47-23-0127Lpvhq BMI Follow Up PlanAdult BMI Follow Up PlanAshtabula County Medical Center SystemStart: 14-84-7490Dytlq BMI ScreeningAdult BMI ScreeningProGuernsey Memorial Hospital SystemStart: 35-52-6085Trzejwrfpb ScreeningDepression ScreeningProGuernsey Memorial Hospital SystemStart: 41-01-9128Mkgx Risk ScreeningFall Risk ScreeningAshtabula County Medical Center SystemStart: 82-46-5013Vibwbyp ScreeningTobacco ScreeningAshtabula County Medical Center SystemStart: 58-12-4491Adyjgimvylln myocardial perfusion stress studyNM helen perf SPECT rest & strUniversity Hospitals Geneva Medical Centertart: 73-08-2463KBPFZ Heart perfusion at rest and W stress and W radionuclide [facility] Hospitaltart: 12-16-2024 End: 06-27-0725Owlsiqq encounter mcturxowa45/27/2025 2:00 PM EST Office Visit [facility] [address] [place] [address] Jairo Daley, AUDIT CONSULTANT-ORAL SURGERY PHYSICIAN [address] [place] [address] [facility] - Family MedicineStart: 47-26-8112IpltvozvyUniversity Hospitals Geneva Medical Centertart: 69-83-1443Szwpk BMI Follow Up PlanAdult BMI Follow Up PlanAshtabula County Medical Center SystemStart: 56-10-5553Srsnd BMI ScreeningAdult BMI ScreeningProGuernsey Memorial Hospital SystemStart: 55-74-1006Knhjpgeapg ScreeningDepression ScreeningProGuernsey Memorial Hospital SystemStart: 70-95-5362Khnv Risk ScreeningFall Risk ScreeningAshtabula County Medical Center SystemStart: 92-15-5407Sgwoems ScreeningTobacco ScreeningAshtabula County Medical Center SystemStart: 13-02-4392ZUYES-19 Vaccine ( season)COVID-19 Vaccine ()[facility] Centertart: 11-03-2024 End: 35-02-1661Okdidxg encounter cghvajcnl09/15/2025 1:00 PM EST Office Visit [facility] [address] [place] [address] Jairo Daley, AUDIT CONSULTANT-ORAL SURGERY PHYSICIAN [address] [place] [address] [facility] MedicineStart: 09-23-2024 End: 09-57-5364Qbvqfbp encounter tgvldzega15/05/2024 11:50 AM EST Procedure Visit [facility] [address] [facility] [address] [place] [address] Cristobal Owens, DPKolby [address] [facility] [address] [place] [address] [facility] CI PODIATRYStart: 09-13-2024 End: 75-49-8188Vlsnxku encounter qavdmnlbs61/25/2024 2:40 PM EST Office Visit [facility] [address] [place] [address] Jairo Daley, AUDIT CONSULTANT-ORAL SURGERY PHYSICIAN [address] [place] [address] [facility] MedicineStart: 51-20-4474Fryvy BMI Follow Up PlanAdult BMI Follow Up PlanAshtabula County Medical Center SystemStart: 88-09-2651Irvgd BMI ScreeningAdult BMI ScreeningAshtabula County Medical Center SystemStart: 55-78-8867Jzihvenabl ScreeningDepression ScreeningProGuernsey Memorial Hospital SystemStart: 71-96-0438Ndbt Risk ScreeningFall Risk ScreeningProGuernsey Memorial Hospital SystemStart: 11-01-2024Medicare Annual Wellness VisitMedicare Annual Wellness VisitAshtabula County Medical Center SystemStart: 76-09-3931Ldnvswu ScreeningTobacco ScreeningAshtabula County Medical Center SystemStart: 84-95-2538Wiqludkyv for malignant neoplasm of breastBreast cancer screenBON ADENA REGIONAL MEDICAL CENTERStart: 08-10-2024 End: 49-42-3071Ghairbg encounter /22/2024 8:00 AM EDT Office Visit [facility] [address] [place] [address] Jairo Daley, AUDIT CONSULTANT-ORAL SURGERY PHYSICIAN [address] [place] [address] [facility] - Family MedicineStart: 22-31-2603EfsddgzjqUniversity Hospitals Geneva Medical Centertart: 07-16-2024 End: 07-67-3346Zergdhu encounter tfmzlessc14/27/2024 8:45 AM EDT Office Visit [facility] [address] [facility] [address] [place] [address] Jason Dominguez MD [address] [facility], [address] [place] [address] Follow up [facility] Part [facility] Children's HospitalComment on above:Follow up CTStart: 07-08-2024 End: 79-30-4007Aqikxjq encounter tiehkptlm70/19/2024 11:50 AM EDT Procedure Visit [facility] [address] [facility] [address] [place] [address] Cristobal Owens DPM [address] [facility] [address] [place] [address] Peroneal tendon tear, right, initial encounter (Primary Dx); Onychomycosis;Toe pain, bilateralNOMS CI PODIATRYComment on above:Peroneal tendon tear, right, initial encounter (Primary Dx); Onychomycosis; Toe pain, bilateralStart: 54-81-2433Pvqujp Wellness Visit (Medicare)Annual Wellness Visit (Medicare)[facility] CENTERStart: 84-88-0614RYGTB-19 Vaccine ( season)COVID-19 Vaccine ( season)[facility] CENTERStart: 01-58-5633Iscldtlnt vaccinationNODE HealthcareStart: 86-01-0949Czizllzba vaccinationFlu vaccine (#1)[facility]ENTERStart: 04-12-2024 End: 96-93-5149Kbdhzni encounter /24/2024 9:40 AM EDT Office Visit [facility] [address] [place] [address] Jairo Daley, AUDIT CONSULTANT-ORAL SURGERY PHYSICIAN [address] [place] [address] [facility] - Family MedicineStart: 02-12-2024 End: 57-39-4177Slliwjj encounter dtpfmskky97/25/2024 4:40 PM EDT Procedure Visit [facility] [address] [facility] [address] [place] [address] Cristobal Owens DPM [address] [address] [facility] CI PODIATRYStart: 53-94-5213Cglzhun Counseling Tobacco CounselingNovant Health Franklin Medical Centertart: 12-18-2023 End: 53-62-1942Vfuvdkda Gjnrhfc5212/18/2023 8:50 AM EST Clinical Support [facility] [address] [address] [place] [address] Cristobal Owens DPM [address] [address] [facility] CI PODIATRYStart: 12-11-2023 End: 94-00-8068Upumvtt encounter rwkoaifrb70/22/2024 9:45 AM EST Office Visit [facility] [address] [place] [address] Jairo Daley, AUDIT CONSULTANT-ORAL SURGERY PHYSICIAN [address] [place] [address] [facility] - Family MedicineStart: 12-04-2023 End: 12-66-0964Zeatvgx encounter cjfgpfudr13/15/2024 4:00 PM EST Office Visit [facility] [address] [facility] [address] [place] [address] Cristobal Owens, VIKI [address] [facility] [address] [place] [address] [facility] CI PODIATRYStart: 09-16-4126Qudswxnlh for malignant neoplasm of breastMammogramBRIGHAM CITY COMMUNITY HOSPITAL HealthcareStart: 70-51-0142NVHJL-19 Vaccine ( season)COVID-19 Vaccine ()[facility] SystemStart: 01-21-2023 End: 41-20-9347Smhacxqcx to same day surgery jlwkfm4001/21/2023 Surgery IP Unit Jason Dominguez MD [address] [place] [address], [address] [place] [address] ESWL EXTRACORPOREAL SHOCK WAVE LITHOTRIPSYMTHZ ORComment on above:ESWL EXTRACORPOREAL SHOCK WAVE LITHOTRIPSY Start: 01-21-2023 End: 11-54-2527Hhcnqjkzloy xtrcorp shock waveESWL EXTRACORPOREAL SHOCK WAVE LITHOTRIPSY Renal calculus 01/21/2023 7:30 AM [facility] Start: 00-42-8650Bntxzmmeal hospital visit by hvbynnxns46/04/2023 Hospital Encounter IP Unit Jason Dominguez MD [address] [facility], [address] [place], [place] [address] MTHZ ORStart: 12-31-2022 End: 06-39-8933Ceuxume encounter wtgqzxtli24/14/2023 Appointment [facility] CT ScanStart: 55-01-3224Gctidq Wellness Visit (AWV)Annual Wellness Visit (AWV)[facility]ALTHStart: 90-82-4891Rygbcuimcyw Syncytial Virus (RSV) or age 60 yrs+ (1 - 1-dose 60+ series)Respiratory Syncytial Virus (RSV) or age 60 yrs+ (1 - 1-dose 60+ series)[facility] Hospitalart: 68-70-7691Ynoarevvo for osteoporosisDEXA (modify frequency per FRAX score)[facility]: 29-76-3951Mbgbdldschczdz of varicella zoster vaccineZoster (Shingles) Vaccine (1 of 2)[facility] Centertart: 87-52-1550Ncltralzm for malignant neoplasm of breastBreast cancer screenInova Women's Hospitalart: 33-02-7602Csciivpej for malignant neoplasm of lung Lung Cancer Screening &/or CounselingBon Secours Mary Immaculate Hospitalart: 2006 Shingles vaccine (1 of 2)Shingles vaccine (1 of 2)[facility]: 18-49-3534Tdcwluyjm for malignant neoplasm of colonLIFEPOINT HEALTH Start: 37-86-0376Mdnvu panelLipidsInova Women's Hospitalart: 1991 Diabetes screenDiabetes [facility] Daughtersart: 57-33-0858IEwY,Tdap and Td Vaccines (1 - Tdap)DTaP,Tdap and Td Vaccines (1 - Tdap)[facility] Centertart: 24-82-0600JDrG/Tdap/Td vaccine (1 - Tdap)DTaP/Tdap/Td vaccine (1 - Tdap)[facility]ALTHStulman: 57-36-2418Dnjhwyrch C screeningHepatitis C [facility] Daughtersart: 42-49-7334Xmkdtzcuur ScreenDepression [facility] VCUart: 84-42-6752LPYZR-19 Vaccine (#1)COVID-19 Vaccine (#1)[facility]: 08-38-1446Rzumjmtec for malignant neoplasm of colonNOMS HealthcareStart: 30-97-1307Nngzuvv CounselingTobacco CounselingWooster Community Hospital End: 19-93-5106RGT W Auto Differential panel - BloodCBC auto differential Lab Routine Acquired hypothyroidism 1 Occurrences starting 08/10/2024 until [facility] HospitalComment on above:1 Occurrences starting 08/10/2024 until 08/10/2025 End: 12-98-2383Qocdxqvzcmoqt metabolic 2000 panel - Serum or PlasmaComprehensive metabolic panel Lab Routine Acquired hypothyroidism 1 Occurrences starting 08/10/2024until 08/10/2025[facility] Work Phone: Comment on above:1 Occurrences starting 08/10/2024 until 08/10/2025 End: 46-40-7087[place], UrineBON Appnique Work Phone: Comment on above:1 Occurrences starting 12/12/2022 until 12/12/2022 End: 24-29-5149Zzgiuma, UrineBon Dr Lal PathLabsComment on above:1 Occurrences starting 07/18/2025 until 07/18/2025 End: 15-51-8209Lbjpwtvbgu A1c/Hemoglobin.total in BloodHemoglobin A1c Lab Routine Screening for diabetes mellitus (DM) 1 Occurrences starting 08/10/2024 until 08/10/2025ProUshi SystemComment on above:1 Occurrences starting 08/10/2024 until 08/10/2025 End: 50-72-6511Cgpty 1996 panel - Serum or PlasmaLipid profile Lab Routine Mixed hyperlipidemia 1 Occurrences starting 08/10/2024 until 08/10/2025ProGrafoidComment on above:1 Occurrences starting 08/10/2024 until 08/10/2025 Patient EducationHemorrhoids (DC) Diverticulosis (DC) Colon Polypectomy (DC) Know your [facility] Work Phone: End: 59-74-8384Ydtjpbnkfcq [Units/volume] in Serum or PlasmaTSH Lab Routine Acquired hypothyroidism 1 Occurrences starting 08/10/2024 until 08/10/2025 [facility] Quture SystemComment on above:1 Occurrences starting 08/10/2024 until 08/10/2025US Lower extremity - rightUS foot right Imaging Routine Other specified disorders of synovium, right ankle and foot Ordered: 12/04/2023[facility] Work Phone: Comment on above:Ordered: 12/04/2023 End: 91-10-1541YE Abdomen Single viewBon Dr Lal PathLabsComment on above:1 Occurrences starting 07/12/2025 until 07/12/2025 Immunizations Immunization DateImmunizationNotesCare PogmtuiwUslpiuqm67-26-9329Wowkxpoa trivalent influenza vaccine, adjuvanted, preservative freeValerifarhana Edi URBINA Work Phone: [facility] HospitalSrbqeo06-92-5310Hwsiljvwnjxw, In Clinic,; Translations: [Drug or medicament (substance)]Jairo Edi URBINA Work Phone: [facility] HospitalNgahoc35-52-0691NAUHZ-87, SPIKEVAX (Moderna), (age 12y+), IM, 50mcg/0.5mLMth 2BCentra Health10-10-2024 influenza, high dose seasonal, preservative-freeMth [address] [place] [address] 61-19-1762Dgkcmnrrx Vaccine, Quadrivalent, AdjuvantedAdysan Sleek [facility]11-01-2023influenza virus vaccine, unspecified formulationValerifarhana HERNANDEZORAL SURGERY PHYSICIAN Work Phone: [facility] HospitalWaffge25-27-0587Acluahhqgfaf Conjugate 20-valentAdysan Sleek [facility] HamiltonPyfsko20-58-4365akbaeycousgg conjugate vaccine, 7 valentAdysan Sleek [facility]10-11-2022 Influenza Vaccine, Quadrivalent, AdjuvantedAdysan Sleek [facility] Payers DatePayer CategoryPayerPolicy [id number] Health [id number] [id number] 2024Medicare HMO [id number]-kmp [id number] [id number] 2024Medicare [id number] [id number] [id number] [id number] 2023Medicaid [id number] 2022Medicare [id number] [id number] 1.2.840.907388.1.13.239.2.7.3.958[id number] [id number] [id number] [id number] [id number] 2.840.1.480008.3.579.2.59814-20-5035Cpgpbxs8259364 2.840.1.296039.3.579.2.87943-86-8326Asbwusj8809821 2.840.1.287443.3.579.2.69837-17-2189Fimwwjq1719830 2..840.1.848865.3.579.2.96146-93-7585Gupeqbw4443636 2.840.1.144945.3.579.2.32123-83-7904Eqqeivi2712128 2..840.1.383092.3.579.2.86554-64-3502Njsnoip1244824 2.840.1.011707.3.579.2.00435-41-4312Sjnyjfb0885265 2.16.840.1.438062.3.579.2.48642-58-2657Hqufwxm7931260 2.16.840.1.836587.3.579.2.62316-85-6484Vznwvye3279916 2.16.840.1.881456.3.579.2.46437-49-2479Tzqplha49402879 2.16.840.1.194441.3.579.2.933962-32-5759Rbasxbi1370908 2.16840.1.115775.3.579.2.055775-85-4146Hmkfasy7129474 2.16.840.1.952634.3.579.2.214451-95-3677Aaxaczk9667834 2.840.1.976938.3.579.2.743127-10-1240Dirsxua0888523 2.840.1.717897.3.579.2.873967-60-4940Fwybnzm3058226 2.840.1.079226.3.579.2.745478-63-0156Rshasjg038372418 2.840.1.915796.3.579.2.314439-97-2384Gvngmda849909765 2.840.1.517782.3.579.2.126534-57-7137Unclede03132713 2.840.1.650609.3.579.2.526616-30-8715Fnrazxq79941467 2.840.1.088928.3.579.2.523204-20-8803Mnmlcvs44349779 2.840.1.236548.3.579.2.974692-16-1877Nroimif12674089 2.16840.1.762530.3.579.2.971120-15-7042Kmmyrao245457901 2.840.1.950186.3.579.2.49422-05-1965Ftuwbzj908221308 2.16.840.1.757815.3.579.2.24462-62-4468Umkqthi784155694 2..840.1.166871.3.579.2.20459-05-4240Sjscyqk212997968 2..840.1.098644.3.579.2.71786-65-3007Ybzfngp618038897 2..840.1.343569.3.579.2.78491-96-6211Sxtjakc044445124 2.840.1.563384.3.579.2.49249-47-4159Aktqebw689766885 2.840.1.961477.3.579.2.23851-17-7154Hqoihpk305998892 2.840.1.876493.3.579.2.64398-88-9225Lqvtfok443964878 2..840.1.118024.3.579.2.10655-74-9257Mcubpbt899957205 2.840.1.935891.3.579.2.25214-60-6644Oduwfjh936570822 2.840.1.448974.3.579.2.35788-23-8906Pwtusrt870116642 2.840.1.713172.3.579.2.93153-71-3584Awqwryl505574971 2.840.1.769076.3.579.2.85149-26-3627Ymufxbu892764675 2..840.1.781244.3.579.2.67859-23-7382Mirgnum19009452 2.840.1.315459.3.579.2.80995-94-8334Kpgicbv91969428 2.16.840.1.781243.3.579.2.173[facility] Oahjipvwt905288268 n8pk4043-w970-1h9w-f24b-1pi9eh363445PemlrbhMDHT/HFA/FAP Wvzftu924723369 0222cmcy-5qq6-84563wh9-1018-xz51-643o36506065Ifvwvyu70076914 2.16.840.1.316807.3.579.2.103Ygvhftw55753643 2.16.840.1.276963.3.579.2.531 Oevgrxm07925582 2.16.840.1.244053.3.579.2.143Hqlhdzk52557503 2.16.840.1.783028.3.579.2.531 Social History DateTypeDetailFacilityStart: 10[birth year]20-1965 End: 25-76-1404Ajovkgo smoking status NHISSmokes tobacco dailyBON Spacebar Phone: start: 34-80-8450Uptawbc of tobacco useCigarette SmokerBANNER IRONWOOD MEDICAL [facility]ENTER Spacebar Phone: start: 12-12-2022 End: 01-26-6546Kvtapvjlnb smoked current (pack per day) - Reported0.5NOMS HealthcareStart: 12-12-2022 End: 45-69-6572Evkvzms use and exposureSmokeless tobacco non-userBON Spacebar Phone: start: 12-12-2022 End: 02-41-6280Tivswrf intakeCurrent drinker of alcohol (finding)[employer] Phone: start: 81-99-1877Hiqdplo CommentSmokes 6-8 cigs/dayBANNER IRONWOOD MEDICAL CENTER Spacebar Phone: start: 22-31-7650Rkhddii CommentBeer 2-3 every 2 weeks [employer] Phone: start: 88-72-8599Aun Assigned At BirthNot on [facility] medical centerGUALBERTO MAHER [facility] Work Phone: start: 05-63-3947Nqqvqzo smoking status NHISNever smoked tobaccoBRIGHAM CITY COMMUNITY HOSPITAL HealthcareStart: 12-04-2023 End: 23-75-6407Xqymxh identityNot on [facility] HealthcareHistory of tobacco use Passive smokerNODE HealthcareStart: 12-04-2023 End: 08-28-3437Lqtbqaw intakeEx-drinker (finding)[facility] HealthcareHow often to you have a drink containing alcohol?2-4 times a monthNODE HealthcareAverage Number of DrinksNot on [facility] HealthcareStart: 24-37-1856Ledpzmw Commentcoffee daily [facility] HealthcareStart: 07-21-2024 End: 94-73-4512Ypwebsq smoking status NHISSmoker (finding)[facility] Centertart: 74-59-8988Ghb Assigned At Psychiatric HospitalFeWexner Medical Centertart: 36-66-2969Nnvqmrg Commenton weekends, not often.[facility] SystemStart: 12-01-2012 End: 21-62-2882LykHpfhtk (finding)Socialbakersedic Quture System Goals DatePatient GoalDesired Activity/State Clinical Notes 03-08-2022 to 07-05-2025 Note Date & DdoxDvduTgrnfxvf60-08-6689 Evaluation note* Diagnosis Onset Date Resolution Status Admit Date Essential (primary) hypertension acuteSept2024 9:12amTobacco use disorder, continuousacuteSept2024 9:12amLeft ventricular hypertrophy due to hypertensive disease noneactiveSept2024 9:12amAtypical chest painnoneactiveSept2024 9:12am [facility] Work Phone: 1(273) 979-712406-30-2025 NoteThis is a Telephone Appointment *This visit was conducted by Telephone with real time communicationand interaction. The patient provided written consent for treatment. The patient understands their rights, the HIPAA risks and that they will be charged accordingly for the services rendered. This visit was held via telephone within the [facility] while they were at: Her home. This [...] Tartrate 25 mg o (more content not included)...[facility]04-25-2025 NoteAdmission Information Admitted on February 10, 2025 [...] TABLET BY MOUTH EVERY DAY AT NIGHT Carmelo Ellipta 100 mcg-62.5 mcg-25 mcg/inh inhalation powder, [...] to the plantar feet as tested with [place] [employer] monofilament. Gross motor intact bilateral [...] treat. Reviewed notes. Discu (more content not included)...[facility]04-23-2025 NoteChief Complaint RIGHT ANKLE PAIN & INSTABLITY [...] PROCEDURE: December 13, 2024 LOCATION OF PROCEDURE: [facility] SURGEON: Brant Burden DPM INFORMED CONSENT: Obtained by and on file at [facility] Patient is a pleasant 69-year-old female [...] inh, Inhale, qAM V (more content not included)...[facility]03-07-2025 Note Chief Complaint Referral from Dr. Valentin [...] fall in 2020. This was treated at [facility]. Patient relates that they have tried oplb-otm-gdxxnve pain relievers, padding, and modification of shoe gear as well as modification of activity levels to no avail. She states she had an MRI performed. States that the right ankle is painful and feels unstable at times. She has hardware on the outside of her right ankle. She states that this is also painful. She relates she sees a frame maker. She relates she has a history of [...] bilateral. Protective sensation intact as measured with [place] [employer] Monofilament Gross motor intact bilateral. [...] Discussed conservative versus surgic (more content not included)...[facility]02-27-2025 History of Present illness Narrative* Jairo Daley APRN-ORAL SURGERY PHYSICIAN - 12/16/2024 2:00 PM EST Images from the original note were not included. [address] [place] [address] SUBJECTIVE: Patient ID: Robyn Thorpe is a [...] Diagnosis Date Allergic Asthma Back pain Cancer ([facility]) Chronic kidney disease Disease of thyroid gland [...] by mouth nightly. Chronic bronchitis with emphysema ([facility]) - TRELEGY ELLIPTA 100-62.5-25 mcg blister with [...] exacerbation Is monitored by pulmonology, Dr. Spaulding. 6. Insomnia States she is sleeping well. [...] CARLITOS Haas 12/16/24 1422 documented in this encounterWooster Community Hospital02-26-2025 Evaluation note* Diagnosis Onset Date Resolution Status Admit Date Essential (primary) hypertension acuteFebruary 2024 2:55pmTobacco use disorder, continuousacuteFebruary 2024 2:55pmLeft ventricular hypertrophy due to hypertensive disease noneactiveFebruary 2024 2:55pmAtypical chest painnoneactiveFebruary 2024 2:55pm [facility] Work Phone: 1(640) 696-172301-15-2025 History of Present illness Narrative* CARLITOS Haas - 11/03/2024 1:00 PM EST Images from the original note were not included. [address] [place] [address] SUBJECTIVE: Patient ID: Robyn Thorpe is a [...] Diagnosis Date Allergic Asthma Back pain Cancer ([facility]) Chronic kidney disease Disease of thyroid gland [...] Sooner if blood pressure does not improve Jairo Daley APRN-ORAL SURGERY PHYSICIAN 11/03/24 1326 documented in this encounterWooster Community Hospital01-15-2025 Instructions* Patient Instructions* CARLITOS Haas - 11/03/2024 1:00 PM EST Are You Ready To Kick The Habit? Free Tobacco Cessation Resources [facility] Services [facility] provide all employees with free tobacco cessation services that include: Counseling to understand nicotine addiction Education about medications that can help you successfully quit Assistance with developing a plan to quit Call to set up an individual appointment or find out when group classes will be held: [facility]: [phone] [facility]: [phone] [facility]: [phone] [facility]: [phone] Quit Smoking Action Plan and Resources [facility] offers an eight-week, online smoking cessation plan to all [facility] employees, regardless of whether [place] is your medical insurance provider. Go to [email or web address]/[email or web address] and click the Health Risk Assessment and Resources link to get started. In the adflyer menu, click Action Plans instead of Health Risk Assessment to access the Quit Smoking Action Plan. Additional smoking cessation resources are also available to all [facility] employees on the Dzxbj1Qeggug web page at www.Nuxeo/quitsmoking. [place] Tobacco Cessation Program If [place] is your medical insurance provider, there are more free resources available to you, including: No copays or deductibles on local tobacco cessation counseling services to help you quit Prescription assistance for tobacco cessation medications to help you quit For details about the tobacco cessation program available to [employer] members, go to www.Official Limited Virtual.Yodlee (Search: Tobacco Cessation Program). [place] Tobacco Quit Line 9-244-LJJM-NOW ( ) is a toll-free, telephonic service that helps [place] residents quit smoking and using tobacco. It is staffed by experts who tailor a quit plan for you and provide you with advice. [place] Tobacco Quit Line 2-673-ENCW-NOW ( ) is a toll-free, telephonic service that helps [place] residents quit smoking and using tobacco. It is staffed by experts who tailor a quit plan for you and provide you with advice. Two weeks of nicotine replacement therapy may be provided at no charge, if needed. Additional Resources These national organizations also offer free information and resources to help you quit tobacco: [place] Society--www.cancer.org/healthy/stayawayfromtobacco [place] [employer]--www.heart.org (Search: Quit Smoking) Centers for Disease Control and Prevention--www.cdc.gov/tobacco [place] [employer]--www.lungusa.org * Attachments The following attachments cannot be sent through Care Everywhere. * Diet and health ([place]) documented in this encounterGifford Medical CenterGrafoid01-02-2025 Miscellaneous Notes* Telephone Encounter - Isidra Alexis [...] called requesting a referral to a new frame maker in [place] Their name is [facility] Card[facility] Phone number is [phone] Fax is [phone] documented [facility] Telephone encounter Note* Telephone Encounter - Isidra Alexis CMA - 10/21/2024 12:10 PM EST Pt called stated that her BP has been 200s over 100s and needs her meds changed its been like this for a week in a half [facility] [employer][id number] Telephone encounter Note* Telephone Encounter - CARLITOS Haas - 10/21/2024 12:10 PM EST She will need an appointment for further evaluation [facility]01-02-20[facility] Telephone encounter Note* Telephone Encounter - Isidra Alexis CMA - 10/21/2024 12:10 PM EST Can someone finagale this pls [facility]01-02-2025 Telephone encounter Note* Telephone Encounter - Nat Vivar - 10/21/2024 12:10 PM EST Whenever first available is, can be 20 min [facility]01-02-2025 Telephone encounter Note* Telephone Encounter - Isidra Alexis CMA - 10/21/2024 12:10 PM EST I can't find anything till the , I would think she needs to come in sooner if possible you guys are better at working the schedule [facility]01-02-2025 Telephone encounter Note* Telephone Encounter - Nat Vivar - 10/21/2024 12:10 PM EST If that's the first 20 minute we have then that's all. I can't move appointments to accommodate [facility]01-02-2025 Telephone encounter Note* Telephone Encounter - Isidra Alexis CMA - 10/21/2024 12:10 PM EST Pt is scheduled [facility]01-02-2025 Telephone encounter Note* Telephone Encounter - Isidra Alexis CMA - 10/21/2024 12:10 PM EST Pt called requesting a referral to a new frame maker in [place] Their name is [facility] Phone number is [phone] Fax is [phone] [facility]11-25-2024 History of Present illness Narrative* Jairo Daley, AUDIT CONSULTANT-ORAL SURGERY PHYSICIAN - 09/13/2024 2:40 PM EST Subjective SUBJECTIVE: Patient ID: Robyn Thorpe is a 68 y.o. female who presents for a Medicare Annual Wellness exam. Presents for annual wellness. She stays active. Resides in her own home with significant other. Drives. Does not use assistive gait devices for ambulation. Is a smoker. CT low dose screening is done through editing intern yearly ([facility]) States she has been experiencing [...] Diagnosis Date Allergic Asthma Back pain Cancer ([facility]) Chronic kidney disease Disease of thyroid gland [...] Do you have a durable power of collections attorney?: (!) No Patient educated today about [...] Medicare annual wellness visit, subsequent COPD exacerbation ([facility]) - azithromycin (ZITHROMAX) 250 mg tablet; Take [...] CARLITOS Haas 09/13/24 1510 documented in [facility] encounterMar[facility] Q[facility] [id number] History of Present illness Narrative* Jairo Daley, AUDIT CONSULTANT-ORAL SURGERY PHYSICIAN - 08/10/2024 8:00 AM EDT Images from the original note were not included. [address] [place] [id number] SUBJECTIVE: Patient ID: Robyn Thorpe is a [...] Diagnosis Date Allergic Asthma Back pain Cancer ([facility]) Chronic kidney disease Disease of thyroid gland [...] by mouth nightly. Chronic bronchitis with emphysema ([facility]) - TRELEGY ELLIPTA 100-62.5-25 mcg blister with [...] CARLITOS Haas 08/10/24 0910 documented in this encounterWooster [facility] Hospital10-22-2024 Instructions* Patient Instructions* CARLITOS Haas - 08/10/2024 8:00 AM EDT Are You Ready To Kick The Habit? Free Tobacco Cessation Resources [facility] Services [facility] provide all employees with free tobacco cessation services that include: Counseling to understand nicotine addiction Education about medications that can help you successfully quit Assistance with developing a plan to quit Call to set up an individual appointment or find out when group classes will be held: Brian sweeney [facility]: [phone] [facility]: [phone] [facility]: [phone] [facility]: [phone] Quit Smoking Action Plan and Resources [facility] offers an eight-week, online smoking cessation plan to all [facility] employees, regardless of whether [place] is your medical insurance provider. Go to www.iFollo.org/employeewellness and click the Health Risk Assessment and Resources link to get started. In the adflyer menu, click Action Plans instead of Health Risk Assessment to access the Quit Smoking Action Plan. Additional smoking cessation resources are also available to all [facility] employees on the Iwzzy1Lcfhxl web page at www.Nuxeo/quitsmoking. [place] Tobacco Cessation Program If [place] is your medical insurance provider, there are more free resources available to you, including: No copays or deductibles on local tobacco cessation counseling services to help you quit Prescription assistance for tobacco cessation medications to help you quit For details about the tobacco cessation program available to [place] members, go to www.[employer] Virtual.Yodlee (Search: Tobacco Cessation Program). [place] Tobacco Quit Line 7-678-HRZF-NOW ( ) is a toll-free, telephonic service that helps [place] residents quit smoking and using tobacco. It is staffed by experts who tailor a quit plan for you and provide you with advice. [place] Tobacco Quit Line 1-664-JOFG-NOW ( ) is a toll-free, telephonic service that helps [place] residents quit smoking and using tobacco. It is staffed by experts who tailor a quit plan for you and provide you with advice. Two weeks of nicotine replacement therapy may be provided at no charge, if needed. Additional Resources These national organizations also offer free information and resources to help you quit tobacco: [place] [employer]--www.cancer.org/healthy/stayawayfromtobacco [place] [employer]--www.heart.org (Search: Quit Smoking) Centers for Disease Control and Prevention--www.cdc.gov/tobacco [place] [employer]--www.lungusa.org * Attachments The following attachments cannot be sent through Care Everywhere. * Hypothyroidism (underactive thyroid) ([place]) documented in this encounterParkview Health Bryan HospitalHooja [id number] Procedure note [facility]09-19-2024 History of Present illness Narrative * Cristobal [...] History: Diagnosis Date Allergies Anxiety Arthritis Asthma ([facility]) Cervical cancer ([facility]) COPD (chronic obstructive pulmonary disease) ([facility]) Depression ([facility]) History of medical problems knee scraping for knee replacement HTN (hypertension) ([facility]) Kidney disease Medications: Current Outpatient Medications: albuterol [...] Insecurity: No Food Insecurity (04/12/2024) [facility] Hunger Screening Within the past 12 months [...] Partner Violence: Unknown (12/11/2023) Received from [facility] [place] [employer] Environment Fear of Current [...] nails 1 through 10 MRI right ankle [facility] demonstrates findings of slight thickening of [...] Patient may continue with conservative treatments including cnua-fpf-tmzoipi anti- inflammatories and other treatments suggested today. Patient may want to be s cheduled for surgical intervention in the near future. Discussed right peroneal tendon repair and patient patient and may consider once all other medical issues are done with Cristobal Owens DPM documented in this encounterCedar County Memorial [id number] Miscellaneous Notes* Telephone Encounter - Nat Vivar [...] to the urgent care documented in this encounterW[facility]oster [facility] Hospital07-25-2024 Telephone encounter Note* Telephone Encounter - [facility] Ghazala - 05/13/2024 12:33 PM EDT Patient called and she had a really bad fall down the stairs. She went to the ER and had XR and everyhing but she is now having stomach pains, lower instenial pain, an a really bad cough. She was wondering if you could send XR orders. I think she needs to be seen but not sure where [facility]07-25-2024 Telephone encounter Note* Telephone Encounter - CARLITOS Haas - 05/13/2024 12:33 PM EDT Her fall was several weeks ago. Was hospitalized. I recommend ER or urgent care visit. [facility]07-25-[facility] Telephone encounter Note* Telephone Encounter - Nat Vivar - 05/13/2024 12:33 PM EDT Patient notified and is going to the urgent care [facility]06-24-[facility] History of Present illness Narrative* CARLITOS Haas - 04/12/2024 9:40 AM EDT Images from the original note were not included. [address] [facility] [id number] SUBJECTIVE: Patient ID: Robyn Thorpe is a [...] Diagnosis Date Allergic Asthma Back pain Cancer ([facility]) Chronic kidney disease Disease of thyroid gland [...] procedures Referring and communicating with other health home health care coordinator (not separately reported) Follow-up: 4 months Fasting labs. Hypothyroid, fibromyalgia CARLITOS Haas 04/12/24 1052 documented in this encounterWooster Community Hospital03-28-2024 Miscellaneous Notes* Telephone Encounter - Isidra Alexis CMA - 01/15/2024 12:05 PM EDT They went to the wrong pharmacy documented in this encounterWooster Community Hospital03-28-2024 Telephone encounter Note* Telephone Encounter - Isidra Alexis CMA - 01/15/2024 12:05 PM EDT They went to the wrong pharmacy [facility]02-22-[facility] History of Present illness Narrative* CARLITOS Haas - 12/11/2023 9:40 AM EST Images from the original note were not included. [address] [facility] [id number] SUBJECTIVE: Patient ID: Robyn Thorpe is [...] Diagnosis Date Allergic Asthma Back pain Cancer ([facility]) Chronic kidney disease Disease of thyroid gland [...] CARLITOS Haas 12/15/23 1730 documented in this encounterWooster Community Hospital02-15-2024 History of Present illness Narrative* Cristobal Owens, VIKI - 12/04/2023 4:00 PM EST Patient: Robyn Thorpe : 1955 PCP: No [...] History: Diagnosis Date Allergies Anxiety Arthritis Asthma ([facility]) Cervical cancer ([facility]) COPD (chronic obstructive pulmonary disease) ([facility]) Depression ([facility]) History of medical problems knee scraping for knee replacement HTN (hypertension) ([facility]) Kidney disease Medications: Current Outpatient Medications: albuterol [...] patient Cristobal Owens DPM documented in this encounterCedar County Memorial [id number] Chief Complaint: [...] mouth in the morning., Disp: , Rfl: wjelriqndgv-mccvhmbid-evchgtqu 100-62.5-25 mcg blister with device, INHALE 1 [...] normal in s (more content not included)... [facility]01-29-2024 Miscellaneous Notes* Telephone Encounter - Hilario Hurst CMA - 11/17/2023 8:45 AM EST Patient called into office requesting Referral Tarun Owens [facility] for podiatry in [place] * Telephone Encounter - CARLITOS Haas - [...] 8:45 AM EST done documented in this encounterWooster [facility] Hospital01-29-2024 Telephone encounter Note* Telephone Encounter - Hilario Hurst CMA - 11/17/2023 8:45 AM EST Patient called into office requesting Referral Tarun Owens [facility] for podiatry in [place] [facility]01-29-20[facility] Telephone encounter Note* Telephone Encounter - CARLITOS Haas - 11/17/2023 8:45 AM EST I do need a reason (diagnosis is required) to why she wants a referral. [facility]01-29-2024 Telephone encounter Note* Telephone Encounter - Hilario Hurst CMA - 11/17/2023 8:45 AM EST Patient would like her toe nails trimmed, she stated that her hand strength isn't there to cut themherself anymore. [facility]01-29-2024 Telephone encounter Note* Telephone Encounter - CARLITOS Haas - 11/17/2023 8:45 AM EST done [facility]09-06-2023 NoteHTN remains uncontrolled therefore script to increase lisinopril to 10 mg daily. Repeat BMP in 1 week Reviewed labs from 06/19/23 and renal function, liver function and cholesterol are normal and well controlled K+ 5.0- will monitor Veronica Flor NP Division of Cardiology, [facility]- [phone] Pager- [phone] Email- [email or web address]09-14-2022 NotePROCEDURE: XR ANKLE RT MIN 3 VIEWS [...] Electronically authenticated by: YANELIS ENGEL Date: 2022-07-03 10:27[facility]06-15-2022 NotePROCEDURE: XR ANKLE RT MIN 3 VIEWS, [...] Electronically authenticated by: YANELIS ENGEL Date: 2022-04-03 15:51[facility]06-15-2022 NotePROCEDURE: XR ANKLE RT MIN 3 VIEWS, [...] Electronically authenticated by: YANELIS ENGEL Date: 2022-04-03 15:51[facility]05-20-2022 NotePROCEDURE: XR ELBOW RT MIN 3 VIEWS HISTORY: Pain ; right elbow pain and contusion after falling COMPARISON: None. FINDINGS: BONES:No fracture, acute abnormality, or significant arthropathy. SOFT TISSUES:No visible soft tissue swelling. EFFUSION:None visible. OTHER: Negative. IMPRESSION: 1. No acute bone abnormality. 2. Minimal degenerative changes. Electronically authenticated by: YANELIS ENGEL Date: 2022-03-08 12:09[facility]* Diagnosis Renal calculus Calculus of kidney Gross hematuria documented in this encounter [facility] [employer] Work Phone: evaluation note* Diagnosis Renal calculus Calculus of kidney Gross hematuria documented in this encounter [facility] [employer] Phone: evaluation note* Diagnosis Renal calculus Calculus of kidney Gross hematuria documented in this encounter [employer] Work Phone: evalmfmqsd note* Diagnosis Renal calculus Calculus of kidney Pre-op testing Preoperative examination, unspecified Renal calculus Calculus of kidney documented in this encounter [facility] [employer] Phone: evalnytaqi note* Diagnosis Renal calculus Calculus of kidney Pre-op testing Preoperative examination, unspecified Renal calculus Calculus of kidney documented in this encounter [facility] [employer] Phone: evaltpclju note* Diagnosis DJD (degenerative joint disease), ankle and foot, right- Primary Other specified disorders of synovium, right ankle and foot Onychomycosis Dermatophytosis of nail Toe pain, bilateral documented in this encounter [facility] HealthcareEvaluation note* Diagnosis Microscopic hematuria documented in this encounter [facility] [employer] noteNo assessment information available [facility] Work Phone: Evaluation note* Diagnosis Peroneal tendon tear, right, initial encounter- Primary Onychomycosis Dermatophytosis of nail Toe pain, bilateral documented in this encounter [facility] HealthcareEvaluation note* Diagnosis Benign essential HTN- Primary Nonrheumatic mitral valve regurgitation documented in this encounter [facility]* Diagnosis Benign essential HTN- Primary Obesity, morbid ([facility]) Morbid obesity documented in this encounter [facility]* Diagnosis Primary insomnia Persistent disorder of initiating or maintaining sleep documented in this [facility]* Diagnosis Hx of onychomycosis- Primary documented in this encounter [facility]* Diagnosis Fibromyalgia Unspecified myalgia and myositis documented in this encounter [facility]* Diagnosis Benign essential HTN- Primary Anxiety and depression Arthritis, multiple joint involvement Unspecified arthropathy, multiple sites Fibromyalgia Unspecified myalgia and myositis Acquired hypothyroidism Unspecified hypothyroidism Primary insomnia Persistent disorder of initiating or maintaining sleep Chronic bronchitis with emphysema ([facility]) Obstructive chronic bronchitis without exacerbation Special screening for malignant neoplasm of colon Special screening for malignant neoplasms, colon documented in this encounter [facility] SystemEvaluation [facility]* Diagnosis Acquired hypothyroidism- Primary Unspecified hypothyroidism Panlobular emphysema ([facility]) Other emphysema Obesity, morbid ([facility]) Morbid obesity Need for hepatitis C screening test Special screening examination for other specified viral diseases Arthritis, multiple joint involvement Unspecified arthropathy, multiple sites Anxiety and depression Fibromyalgia Unspecified myalgia and myositis Benign essential HTN documented in this encounter [facility] SystemEvaluation note* Diagnosis Chronic bronchitis with emphysema ([facility]) Obstructive chronic bronchitis without exacerbation Arthritis, multiple joint involvement Unspecified arthropathy, multiple sites Anxiety and depression Fibromyalgia Unspecified myalgia and myositis Acquired hypothyroidism Unspecified hypothyroidism Benign essential HTN Primary insomnia Persistent disorder of initiating or maintaining sleep documented in this encounter [facility] SystemEvaluation note* Diagnosis Chronic bronchitis with emphysema ([facility]) Obstructive chronic bronchitis without exacerbation Arthritis, multiple joint involvement Unspecified arthropathy, multiple sites Anxiety and depression Fibromyalgia Unspecified myalgia and myositis Acquired hypothyroidism Unspecified hypothyroidism Benign essential HTN Primary insomnia Persistent disorder of initiating or maintaining sleep History of kidney stones documented in this encounter [facility] SystemEvaluation note* Diagnosis Fibromyalgia- Primary Unspecified myalgia and myositis Need for influenza vaccination Need for prophylactic vaccination and inoculation against influenza Arthritis, multiple joint involvement Unspecified arthropathy, multiple sites Anxiety and depression Acquired hypothyroidism Unspecified hypothyroidism Benign essential HTN Primary insomnia Persistent disorder of initiating or maintaining sleep Chronic bronchitis with emphysema ([facility]) Obstructive chronic bronchitis without exacerbation Mixed hyperlipidemia Screening for diabetes mellitus (DM) Screening for diabetes mellitus documented in this encounter [facility] SystemEvaluation note* Diagnosis Medicare annual wellness visit, subsequent- Primary COPD exacerbation ([facility]) Obstructive chronic bronchitis with exacerbation documented in this encounter [facility] SystemEvaluation note* Diagnosis Benign essential HTN- Primary Arthritis, multiple joint involvement Unspecified arthropathy, multiple sites Fibromyalgia Unspecified myalgia and myositis Acquired hypothyroidism Unspecified hypothyroidism Primary insomnia Persistent disorder of initiating or maintaining sleep Chronic bronchitis with emphysema ([facility]) Obstructive chronic bronchitis without exacerbation History of depression Personal history of other mental disorder documented in this encounter [facility] SystemEvaluation note* Diagnosis Renal calculus Calculus of kidney documented in this encounter [facility] HealthEvaluation note* Diagnosis Gross hematuria Mixed incontinence Mixed incontinence urge and stress (male)(female) Incomplete bladder emptying documented in this encounter [facility] HealthHistory and physical note Author Wanda LuiMer[facility] Health [facility] July 21, 2024 8:40amNote Date/TimeOctober 2023 8:40[place] [address] Gastroenterology H&P Signed Patient: Robyn Thorpe MR#: [id number] : 1955 Acct:[id number] Age/Sex: 68 / F Adm Date: 4 Loc: Room: Type: [facility] Attending Dr: Wanda Hagan MD Copies to: MD Jairo Cui~ Date of Service: 07/21/2024 HISTORY & PHYSICAL: Patient's history with special attention to the cardiovascular, pulmonary systems and the current problem was reviewed with the patient immediately prior to the procedure. Present medications and doses reviewed in the EMR. Allergies and pertinent laboratory tests were also re viewedat this time in the EMR. The physical [...] Hagan M.D. Documented By: Wanda Hagan MD 07/21/24838 Signed By: <Electronically signed by Wanda Hagan MD> 07/21/24839 [facility] Work Phone: InstructionsNot on filedocumented in this encounter [facility] SystemInstructionsNot on filedocumented in this encounter [facility] SystemInstructionsNot on filedocumented in this encounter [facility]Instructions* Attachments The following attachments cannot be sent through Care Everywhere. * Hypothyroidism (underactive thyroid) ([place]) documented in this encounterWooster Community HospitalInstructions* Attachments The following attachments cannot be sent through Care Everywhere. * Depression ([place]) * Fibromyalgia ([place]) documented in this encounterProGuernsey Memorial Hospital SystemInstructionsNot on file documented in this encounterAshtabula [facility] SystemInstructionsNot on file documented in this encounterWooster Community HospitalInstructions* Attachments The following attachments cannot be sent through Care Everywhere. * COPD Diet ([place]) * COPD Exacerbation, Adult ED ([place]) documented in this encounterAshtabula [facility] SystemInstructions* Attachments The following attachments cannot be sent through Care Everywhere. * Hypothyroidism (Underactive Thyroid) Discharge Instructions ([place]) * Chronic Knee Pain ([place]) * Controlling your blood pressure through lifestyle ([place]) documented in this encounterWooster Community HospitalReason for referral (narrative)* Consultation (Routine) - Pending ReviewSpecialtyDiagnoses / ProceduresReferred By ContactReferred To ContactPodiatry Diagnoses Hx of onychomycosis Jairo Daley APRN-TESS [address] [place] [address] Cristobal Owens, [facility] [address] [address] Referral IDStatusReasonStart DateExpiration DateVisits RequestedVisits [id number] Review Specialty Services Required / [facility] HospitalRekyra for referral (narrative)* Consultation (Routine) - Pending ReviewSpecialtyDiagnoses / ProceduresReferred By ContactReferred To ContactGastroenterology Diagnoses Special screening for malignant neoplasm of colon Jairo Daley APRN-ORAL SURGERY PHYSICIAN [address] [place] [address] Wanda Hagan MD [address] [address] Referral IDStatusReasonStart DateExpiration DateVisits RequestedVisits [id number] Review Specialty Services Required / [facility] for referral (narrative)No reason for referral information availableMercy Health – The Jewish [facility] Work Phone: Summary Purpose Family History No Family History Records Found Relationship Condition Age at Onset Recorded Date/T chen father Unknown Malignant neoplasmUnknownHeart diseaseUnknownHypertensionUnknownmotherDiabetes mellitusUnknownFamily history of kidney diseaseUnknown Relationship Condition Age at Onset Recorded Date/T chen father Unknown Malignant neoplasmUnknownHeart diseaseUnknownHypertensionUnknownCongestive heart failureUnknownmotherDiabetes mellitusUnknownFamily history of kidney disease UnknownDeceasedUnknownParoxysmal atrial fibrillationUnknownbrotherMalignant neoplasmUnknownbrotherHeart diseaseUnknownHistory of coronary artery bypass surgeryUnknown Relationship Condition Age at Onset Recorded Date/T chen father Unknown Malignant neoplasmUnknownHeart diseaseUnknownHypertensionUnknownCongestive heart failureUnknownmotherDiabetes mellitusUnknownFamily history of kidney disease UnknownDeceasedUnknownParoxysmal atrial fibrillationUnknownbrotherMalignant neoplasmUnknownbrotherHeart diseaseUnknownHistory of coronary artery bypass surgeryUnknownsisterHistory of colon surgeryUnknown Advance Directives No Advanced Directives Records Found Date ActivatedDate InactivatedComments01/21/2023 8:09 AM01/21/2023 4:07 PM Advance Directive Response Recorded Date/ Time Advance Directives No May 18 10:27am Advance Directive Response Recorded Date/ Time Advance Directives No May 18 9:27am Reason for Referral SpecialtyDiagnoses / ProceduresReferred By ContactReferred To ContactRadiology Diagnoses Renal calculus Gross hematuria Renal Calculus [N20.0] Gross Hematuria [R31.0] Procedures CT UROGRAM CHG CT ABDOMEN & PELVIS W/O CONTRST 1/> [place] [id number] - CHG CT ABDOMEN & PELVIS W/O CONTRST 1/> BODY RE Jason Dominguez MD [address] [facility], [address] [place] [address] Referral IDStatusReasonStulman DateExpiration DateVisits RequestedVisits [id number] / Procedures Referred By ContactReferred To ContactCardiology Diagnoses Renal calculus Pre-op testing Procedures EKG 12 Lead Adele Black, AUDIT CONSULTANT - ORAL SURGERY PHYSICIAN [address] [facility] [address] [place] [address] Referral IDStatusReasonStulman DateExpiration DateVisits RequestedVisits [id number]// Chief Complaint and Reason for Visit Chief Complaint Screening Screening Chief Complaint Admit Date Benign Essential HTN, MV regurgitation [facility] 2024 2:55pm Reason for Visit Admit Date Essential (primary) hypertension r y 2024 2:55pm Tobacco use disorder, continuous [...] for Visit Admit Date Essential (primary) [facility] 2024 9:12am Tobacco use disorder, continuous [facility] 2024 9:12am Left ventricular hypertrophy due to hype rtensive disease July 05, 2025 9:12am Atypical chest pain July 05, 2025 9:12am Additional Source Comments INFORMATION SOURCE (unrecogn ized section and content) DATE CREATED AUTHOR 09/22/2022 [facility] DATE CREATED AUTHOR AUTHOR'S ORGANIZ ATION 03/03/2023 [facility] DATE CREATED AUTHOR AUTHOR'S ORGANIZ ATION 12/19/2023 [facility] DATE CREATED AUTHOR AUTHOR'S ORGANIZ ATION 06/15/2024 [facility] DATE CREATED AUTHOR AUTHOR'S ORGANIZ ATION 07/10/2024 [facility] DATE CREATED AUTHOR AUTHOR'S ORGANIZ ATION 12/18/2024 [facility] DATE CREATED AUTHOR AUTHOR'S ORGANIZ ATION 06/25/2025 [facility] DATE CREATED AUTHOR AUTHOR'S ORGANIZ ATION 07/08/2025 [facility] DATE CREATED AUTHOR AUTHOR'S ORGANIZ ATION 07/22/2025 [facility] Care Teams (unrecognized sec tion and content) Team Status: Active Member Role Status Dates LINDA Haas Primary Care Provider Active Team Status: Inactive Member Role Status Dates LINDA Haas Primary Care Provider Active Start: December 15, 2024 End: December 15, 2024GeColt Green ProviderActive Start: December 15, 2024 End: December 15, 2024 Team Status: Active Member Role Status Dates LINDA Haas Primary Care Provider Active Start: December 15, 2024 Colt Matt ProviderActiveStart: December 15, 2024 Team MemberRelationshipSpecialtyStart DateEnd Date Jairo Daley, AUDIT CONSULTANT - ORAL SURGERY PHYSICIAN [address] [place] [address] PCP - [facility]12/12/22Team MemberRelationshipSpecialtyStart DateEnd Date Jairo Daley, AUDIT CONSULTANT - ORAL SURGERY PHYSICIAN [address] [place] [address] PCP - [facility]12/12/22Team MemberRelationshipSpecialtyStart DateEnd Date Jairo Daley, AUDIT CONSULTANT - ORAL SURGERY PHYSICIAN [address] [place] [address] PCP [facility]12/12/22Team MemberRelationshipSpecialtyStart DateEnd Date Jairo Daley, AUDIT CONSULTANT - ORAL SURGERY PHYSICIAN [address] [place] [address] PCP [facility]12/12/22Team MemberRelationshipSpecialtyStart DateEnd Date Jairo Daley, AUDIT CONSULTANT - [facility] [address] [place] [address] PCP [facility]12/12/22 Team Status: Active Member Role Status Dates Sid Seth DO Attending Provider Active Sta rt: April 26, 2024 Team Status: Inactive Member Role Status Dates Wanda Hagan MD Attending Provider Active Start: July 21, 2024 End: July 21, 2024Jairo Daley NP-CPrimary Care ProviderActiveStart: July 21, 2024 End: July 21, 2024 Team Status: Active Member Role Status Dates Wanda Hagan MD Attending Provider, Other Provider Active Start: July 21, 2024 Jairo Daley NP-CPrimary Care ProviderActiveStart: July 21, 2024 Team MemberRelationshipSpecialtyStart DateEnd Date Unallocated, [place] Provider, [address] [address] PCP - GeneralFamily Medicine07/08/24 Jairo Daley CRNP [address] [place] [address] Referring PhysicianNurse Practitioner07/08/24Team MemberRelationshipSpecialty Start DateEnd Date Unallocated, [place] Provider, [address] [place] [address] PCP - GeneralFamily Medicine07/08/24 Jairo Daley CRNP [address] [place] [address] Referring PhysicianNurse Practitioner07/08/24Team MemberRelationshipSpecialty Start DateEnd Date Jairo Daley, AUDIT CONSULTANT-ORAL SURGERY PHYSICIAN [address] [place] [address] PCP - GeneralFamily Medicine02/20/22Team MemberRelationshipSpecialtyStart DateEnd Date Jairo Daley AUDIT CONSULTANT-ORAL SURGERY PHYSICIAN [address] [place] [address] PCP - GeneralFamily Medicine02/20/22Team MemberRelationshipSpecialtyStart DateEnd Date Jairo Daley AUDIT CONSULTANT-ORAL SURGERY PHYSICIAN [address] [place] [address] PCP - GeneralFamily Medicine02/20/22Team MemberRelationshipSpecialtyStart DateEnd Date Jairo Daley AUDIT CONSULTANT-ORAL SURGERY PHYSICIAN [address] [place] [address] PCP - GeneralFamily Medicine02/20/22Team MemberRelationshipSpecialtyStart DateEnd Date Jairo Daley, AUDIT CONSULTANT-[facility] [address] [place] [address] PCP - GeneralFamily Medicine02/20/22Team MemberRelationshipSpecialtyStart DateEnd Date Jairo Daley, AUDIT CONSULTANT-[facility] [address] [place] [address] PCP - GeneralFamily Medicine02/20/22Team MemberRelationshipSpecialtyStart DateEnd Date Jairo Daley, AUDIT CONSULTANT-[facility] [address] [place] [address] PCP - GeneralFamily Medicine02/20/22Team MemberRelationshipSpecialtyStart DateEnd Date Jairo Daley, AUDIT CONSULTANT-ORAL SURGERY PHYSICIAN [address] [place] [address] PCP - GeneralFamily Medicine02/20/22Team MemberRelationshipSpecialtyStart DateEnd Date Jairo Daley, AUDIT CONSULTANT-ORAL SURGERY PHYSICIAN [address] [place] [address] PCP - GeneralFamily Medicine02/20/22Team MemberRelationshipSpecialtyStart DateEnd Date Jairo Daley, [facility] [address] [place] [address] PCP - [facility]02/20/22Team MemberRelationshipSpecialtyStart DateEnd Date Jairo Daley, [facility] [address] [place] [address] PCP - [facility]02/20/22Team MemberRelationshipSpecialtyStart DateEnd Date Jairo Daley [facility] [address] [place] [address] [facility] - [facility]02/20/22Team MemberRelationshipSpecialtyStart DateEnd Date Jairo Daley, [facility] [address] [place] [address] PCP - [facility]02/20/22 Team Status: Inactive Member Role Status Dates Jairo Daley ALLERGIST-C Primary Care Provider Active Start: January 21, 2025 End: January 21, 2025GeorColt Dias Provider, Referring ProviderActiveStart: January 21, 2025 End: January 21, 2025 Team Status: Active Member Role Status Dates Jairo Daley ALLERGIST-C Primary Care Provider Active Start: January 21, 2025 Colt Matt Provider, Referring Provider, Other ProviderActiveStart: January 21, 2025 Team Status: Inactive Member Role Status Dates Jairo Daley ALLERGIST-C Primary Care Provider Active Start: July 05, 2025 End: July 05, 2025GeorColt Dias ProviderActive Start: July 05, 2025 End: July 05, 2025 Team Status: Active Member Role Status Dates LINDA Haas Primary Care Provider Active Start: July 05, 2025 Chantale Colt Cardona ProviderActiveStart: July 05, 2025 Team Status: Inactive Member Role Status Dates LINDA Haas Primary Care Provider Active Start: July 05, 2025 End: July 05, 2025Colt Ham ProviderActiveStart: July 05, 2025 End: July 05, 2025Team MemberRelationshipSpecialtyStart DateEnd Date Jairo Daley, AUDIT CONSULTANT - ORAL SURGERY PHYSICIAN PCP - General12/12/22Team MemberRelationshipSpecialtyStart DateEnd Date Jairo Daley AUDIT CONSULTANT - ORAL SURGERY PHYSICIAN PCP - General12/12/22 Reason for Visit (unrecogniz ed section and content) SpecialtyDiagnoses / ProceduresReferred By ContactReferred To ContactRadiology Diagnoses Renal calculus Gross hematuria Renal Calculus [N20.0] Gross Hematuria [R31.0] Procedures CT UROGRAM CHG CT ABDOMEN & PELVIS W/O CONTRST 1/> [place] [id number] - CHG CT ABDOMEN & PELVIS W/O CONTRST 1/> BODY RE Jason Dominguez MD [address] [place] [address], [address] [place] [address] Referral IDStatusReasonStart DateExpiration DateVisits RequestedVisits [id number] Foot CareDm Nails/ fungusSpecialtyDiagnoses / ProceduresReferred By ContactReferred To Contact Podiatry Diagnoses Hx of onychomycosis Procedures AMB REFERRAL TO PODIATRY Jairo Daley CRNP [address], [place] [address] Cristobal Owens DPM [address] [place] [address] Referral IDStatusReasonStart DateExpiration DateVisits RequestedVisits [id number] CareNON DM NAIL CAREReasonCommentsHypertensionReasonCommentsMed RefillReasonCommentsHypertension DepressionFibromyalgiaReasonOnset DateCommentsMed [id number] DateCommentsMed [id number]dismfibroReasonComments Annual ExammedicareReasonCommentscv Goals (unrecognized section and content) Goals may [...] BE BASED ON THE PRIMARY CLINICAL RECORDS. [employer] provides no warranty or guarantee of the accuracy or completeness of information in this document.
[2025-08-22] MEDS: HYDRALAZINE HCL 20 MG/ML VIAL 10 MG IVP (15:54)
[2025-08-22] MEDS: KETOROLAC TROMETHAMINE 30 MG/ML VIAL 15 MG IVP (15:55)
[2025-08-22 15:58] LABS: Anion Gap 11.5
[2025-08-22 16:01] LABS: Alanine Aminotransferase 40 U/L (14-59); Albumin Globulin Ratio 0.9; Albumin Level 3.3 g/dL (3.4-5.0); Alkaline Phosphatase 68 U/L (46-116); Aspartate Amino Transferase 39 U/L (15-37); Blood Urea Nitrogen 27.0 mg/dL (7.0-18.0); Calcium 9.2 mg/dL (8.5-10.1); Carbon Dioxide 28.3 mmol/L (21.0-32.0); Chloride 106 mmol/L (98-107); Estimated GFR (African America >60 (>=60 mL/min/1.73m^2); Estimated GFR (Non-African Ame 53 (>=60 mL/min/1.73m^2); Globulin 3.7 g/dL; Glucose 122 mg/dL (74-106); Potassium 3.8 mmol/L (3.5-5.1); Sodium 142 mmol/L (136-145); Total Protein 7.0 g/dL (6.4-8.2)
--- NOTE | 2025-08-22 16:17 | ED.CHESTPAI1 ---
HPI - Chest Pain General Chief Complaint: Chest Pain Stated Complaint: DOCTOR WANTS HER EVALUATED Time Seen by Provider: 08/22/25 15:26 Source: patient Mode of arrival: walk-in Limitations: no limitations History of Present Illness HPI narrative: The patient presented to us after her primary care office sent her over to be evaluated apparently for the last couple months she has been having multiple falls the last was 1 week ago the patient walked in here with no difficulty and she is ambulating in the room with no difficulty as well, denying any balance issue mentioned that when she fell she does not think that she hit her head and she denies any dizziness is at baseline, the patient mentioned that there was no headache nausea vomiting or any other concerns She did stop her blood pressure medication because it was causing her bilateral edema and that after telling her primary care but she does not remember which 1 which is mostly amlodipine Patient does not remember which blood pressure medication she is taking she is denying any chest pain She does have some headache Related Data Home Medications ?Medication ?Instructions ?Recorded ?Confirmed diclofenac sodium 75 mg 75 mg PO Q12H 04/25/24 08/22/25 tablet,delayed release fluoxetine 10 mg capsule 10 mg PO .QHS 04/25/24 08/22/25 fluticasone fur. 100 mcg-umeclid 1 inh inhalation Q24H 04/25/24 08/22/25 62.5 mcg-vilant 25 mcg inhalat.powder (Trelegy Ellipta) gabapentin 100 mg capsule 100 mg PO Q12H 04/25/24 08/22/25 gabapentin 300 mg capsule 300 mg PO DAILY 04/25/24 08/22/25 levothyroxine 25 mcg tablet 25 mcg PO DAILY 04/25/24 08/22/25 losartan 25 mg tablet 100 mg PO DAILY 04/25/24 08/22/25 metoprolol tartrate 25 mg tablet 100 mg PO Q12H 04/25/24 08/22/25 spironolactone 25 mg tablet 25 mg PO DAILY 04/25/24 08/22/25 trazodone 150 mg tablet 150 mg PO .QHS 04/25/24 08/22/25 amlodipine 10 mg tablet (Norvasc) 10 mg PO DAILY 08/22/25 08/22/25 tamsulosin 0.4 mg capsule (Flomax) 0.4 mg PO DAILY 08/22/25 08/22/25 vitamin B complex-vitamin C-folic tab 08/22/25 acid 400 mcg tablet Previous Rx's ?Medication ?Instructions ?Recorded hydrochlorothiazide 25 mg tablet 25 mg PO DAILY #20 tabs 08/22/25 Allergies Allergy/AdvReac Type Severity Reaction Status Date / Time No Known Drug Allergies Allergy Verified 07/17/23 08:44 Review of Systems ROS Status of ROS 10 or more systems reviewed and unremarkable except as noted in history and below PFSH PFSH Social History Little interest or pleasure in doing things: not at all Feeling down, depressed, or hopeless: not at all Exam Narrative Exam Narrative: Nurses notes and vital signs reviewed and patient is not hypoxic. General: Well-appearing and in no apparent distress. Skin: Warm, dry, no pallor noted. No rash. Head: Normocephalic, atraumatic. Neck: Supple, non-tender. Cardiovascular: Regular Rate and Rhythm without murmur, gallop or rub. Respiratory: No accessory muscle use or respiratory distress. Lungs are clear to auscultation, no wheezing, rales or rhonchi Chest Wall: no tenderness Back: No midline thoracic or lumbar vertebral tenderness. No CVA tenderness Musculoskeletal: normal ROM, no calf or popliteal tenderness, no lower extremity edema/swelling GI: Abdomen is soft, non-distended. Normal bowel sounds. No masses appreciated. No tenderness to palpation. No rebound, guarding, or rigidity noted. Neurological: A&O x4. No cranial nerve dysfunction observed. No truncal ataxia. Moves all extremities. Sensation intact. Psychiatric: Cooperative and interactive. Normal mood and affect. Constitutional Vital Signs, click to edit/add: Last Vital Signs Temp 97.6 F 08/22/25 15:13 Pulse 68 08/22/25 17:50 Resp 24 H 08/22/25 17:50 BP 174/77 H 08/22/25 17:30 Pulse Ox 97 08/22/25 17:50 O2 Del Method Room Air 08/22/25 15:13 Course Vital Signs Vital signs: Vital Signs Temperature 97.6 F 08/22/25 15:13 Pulse Rate 74 08/22/25 15:13 Respiratory Rate 18 08/22/25 15:13 Blood Pressure 217/94 H 08/22/25 15:13 Pulse Oximetry 96 08/22/25 15:13 Oxygen Delivery Method Room Air 08/22/25 15:13 Temperature 97.6 F 08/22/25 15:13 Pulse Rate 68 08/22/25 17:50 Respiratory Rate 24 H 08/22/25 17:50 Blood Pressure 174/77 H 08/22/25 17:30 Pulse Oximetry 97 08/22/25 17:50 Oxygen Delivery Method Room Air 08/22/25 15:13 MDM - Chest Pain MDM Narrative Medical decision making narrative: The patient examination was benign and her EKG was showing sinus rhythm with a heart rate of 63 there was some right bundle branch block CBC and chemistry showed no acute pathology and the patient troponin was negative twice it was noted that the patient blood pressure responded to blood pressure medication in the ER mostly hydralazine one-time The patient also was not sure which blood pressure medication he is taking right now after making sure that there is no endorgan damage and the fact that the patient just need the second blood pressure medication to be started The patient went home and called back here with the name of the medication that she is taking with his losartan 100 mg and I did add hydrochlorothiazide 25 mg daily with that Patient was instructed to start taking the medication and follow-up with her primary care The patient to follow-up with the primary care within 2 to 3 days and to come back to the ER in case of any worsening of the current symptoms or any new symptoms or concerns Lab Data Labs: Lab Results 08/22/25 08/22/25 Range/Units 15:30 17:13 WBC 6.6 (4.0-11.0) 10^3/uL RBC 4.69 (4.20-5.40) 10^6/uL Hgb 14.1 (12.0-16.0) g/dL Hct 41.5 (36.0-48.0) % MCV 88.5 (81.0-99.0) fL MCH 30.1 (26.7-34.0) pg MCHC 34.0 (29.9-35.2) g/dL RDW 13.3 (11.0-15.0) % Plt Count 221 (150-450) 10^3/uL MPV 10.3 (9.5-13.5) fL Neut % (Auto) 54.1 (43.0-75.0) % Lymph % (Auto) 30.3 (20.5-60.0) % Mcclain % (Auto) 11.3 (1.7-12.0) % Eos % (Auto) 3.3 (0.9-7.0) % Baso % (Auto) 0.8 (0.2-2.0) % Neut # (Auto) 3.6 (1.4-6.5) 10^3/uL Lymph # (Auto) 2.0 (1.2-3.8) 10^3/uL Mcclain # (Auto) 0.7 (0.3-0.8) 10^3/uL Eos # (Auto) 0.2 (0.0-0.7) 10^3/uL Baso # (Auto) 0.1 (0.0-0.1) 10^3/uL Abs Immat Gran (auto) 0.01 (0.00-0.03) 10^3/uL Imm/Tot Granulo (auto) 0.2 (0.0-0.5) % Sodium 142 (136-145) mmol/L Potassium 3.8 (3.5-5.1) mmol/L Chloride 106 (98-107) mmol/L Carbon Dioxide 28.3 (21.0-32.0) mmol/L Anion Gap 11.5 BUN 27.0 H (7.0-18.0) mg/dL Creatinine 1.04 H (0.55-1.02) mg/dL Est GFR ( Amer) >60 (>=60 mL/min/1.73m^2) Est GFR (Non-Af Amer) 53 L (>=60 mL/min/1.73m^2) BUN/Creatinine Ratio 26.0 Glucose 122 H (74-106) mg/dL Calcium 9.2 (8.5-10.1) mg/dL Total Bilirubin 0.8 (0.2-1.0) mg/dL AST 39 H (15-37) U/L ALT 40 (14-59) U/L Alkaline Phosphatase 68 (46-116) U/L Troponin I High Sens 9.7 9.7 (4.0-51.3) pg/mL Total Protein 7.0 (6.4-8.2) g/dL Albumin 3.3 L (3.4-5.0) g/dL Globulin 3.7 g/dL Albumin/Globulin Ratio 0.9 Discharge Plan Discharge Chief Complaint: Chest Pain Clinical Impression: Headache, HTN (hypertension), Fall Patient Disposition: Home, Self-Care Time of Disposition Decision: 17:52 Condition: Good Prescriptions / Home Meds: New hydrochlorothiazide 25 mg tablet 25 mg PO DAILY Qty: 20 0RF No Action diclofenac sodium 75 mg tablet,delayed release (DR/EC) 75 mg PO Q12H fluoxetine 10 mg capsule 10 mg PO .QHS Trelegy Ellipta 100-62.5-25 mcg blister with device 1 inh INHALATION Q24H gabapentin 300 mg capsule 300 mg PO DAILY levothyroxine 25 mcg tablet 25 mcg PO DAILY losartan 25 mg tablet 100 mg PO DAILY metoprolol tartrate 25 mg tablet 100 mg PO Q12H trazodone 150 mg tablet 150 mg PO .QHS gabapentin 100 mg capsule 100 mg PO Q12H spironolactone 25 mg tablet 25 mg PO DAILY amlodipine [Norvasc] 10 mg tablet 10 mg PO DAILY B complex-vitamin C-folic acid 400 mcg tablet tamsulosin [Flomax] 0.4 mg capsule 0.4 mg PO DAILY Print Language: Maori Instructions: Hypertension (ED), Fall Prevention (ED) Additional Instructions: Please call back at [phone] Referrals: JAIRO WALKER [Primary Care Provider, Unknown] - 1 week Discharge Date/Time: 08/22/25 18:04
--- NOTE | 2025-08-22 16:38 | CT_ITS ---
The [address] [address] Patient Name: FRANKO NUNEZ MRN: [id number] date: 1955 Sex: F Assigned Patient Location: ER Current Patient Location: ER Accession/Order Number: [id number] Exam Date: 08/22/2025 16:35 Report Date: 08/22/2025 16:43 At the request of: EMRE ZARATE MD Procedure: CT head/brain wo con CT BRAIN WITHOUT CONTRAST: CLINICAL HISTORY: headache COMPARISON: 04/25/2024 TECHNIQUE: Contiguous axial unenhanced images were obtained through the brain. This CT exam was performed using one or more following dose reduction techniques: Automated exposure control, adjustment of the mA and/or kV according to patient size, or use of iterative reconstruction technique. FINDINGS: There is no evidence of midline shift, intra or extra-axial fluid collection, hemorrhage or CT evidence of acute large vascular distribution stroke. Visualized intraorbital contents appear unremarkable. Visualized paranasal sinuses are clear. The surrounding soft tissues are normal. CT/CT head/brain wo con IMPRESSION: NO ACUTE INTRACRANIAL ABNORMALITY. Impression dictated by: Poncho Camp M.D. 08/22/2025 4:43 PM Dictation Location: [place] [address] Electronically authenticated by: [id number] Date: 08/22/2025 16:43
== END 2025-08-22 18:04 | disposition home or self-care (01) ==
PROVIDERS: Emergency Provider Emergency Medicine; PCP Nurse Practitioner
DX: R51.9 Headache, unspecified (principal); I10 Essential (primary) hypertension; Z91.81 History of falling
CPT/HCPCS: 36415; 70450; 80053; 84484; 85025; 93005; 96374; 96375; 99285; J0360; J1885

== ENCOUNTER 2025-09-06 10:23 | Outpatient (OUT) | payer MEDICARE, MEDICAID, SELFPAY ==
--- OUTSIDE RECORDS SUMMARY | 2025-09-06 10:29 | XMS_ITS | CCD ---
Author Organization [facility] Care Team Providers Care Auto Body Worker Name Role Phone RANDAL ORTIZ Attending Unavailable Daley WASHING TUB OPERATOR - MICA MACHINE OPERATOR, Jairo J Primary Care [facility] ider BRAULIO LASSITER Consulting Unavailable AJIT [...] Primary Care Unavailable DALEY, JAIRO Attending Unavailable DALYE, JAIRO Admitting Unavailable ZIEBER, DR YANELIS Zaldivar [...] Care Unavailable PRANAV TRINIDAD Attending Unavailable Daley WASHING TUB OPERATOR - MICA MACHINE OPERATOR, Jairo J Primary Care Prov ider CRISTOBAL OWENS Attending Unavailable EDI, JAIRO Referring Unavailable CRISTOBAL OEWNS Attending Unavailable CRISTOBAL OWENS Attending Unavailable CRISTOBAL OWENS Attending Unavailable CRISTOBAL OWENS Attending Unavailable MD Wanda Hagan Attending Provider [phone] Edi, JACOB-C Jairo Cabrera Primary Care Provider Jairo Spears Unavailable Unallocated Shania ISRAEL Provider Primary Care Provi nabeel Edi WASHING TUB OPERATOR-Jairo PULIDO Primary Care Provid er Edi GLOBAL MARKETING INTERN-CJairo Primary Care Provider Hay Rea MD Attending Provider JAIRO DALEY Attending Unavailable DALEYRIA CARLOSERIE J Referring Unavailable DALEY, JAIRO J Primary Care Unavailable JAIRO DALEY [...] DALEY, JAIRO J Primary Care Unavailable Daley GLOBAL MARKETING INTERN-C, Jairo Cabrera Primary Care Provider Hay Rea MD Attending Provider Hay Rea MD Referring Provider Daley WASHING TUB OPERATOR-MICA MACHINE OPERATOR, Jairo Moore Primary Care Unavailable Imtiaz Garvin Attending Unavailable Daley WASHING TUB OPERATOR-MICA MACHINE OPERATOR, Jairo Moore Primary Care Unavailable Bertram DPM, Brant Sun Attending Unavailab le Daley WASHING TUB OPERATOR-MICA MACHINE OPERATOR, Jairo Moore Primary Care Unavailable Bertram DPM, Brant Sun Attending Unavailab le Bertram DPM, Brant Sun Admitting Unavailab le Geckle WASHING TUB OPERATOR-MICA MACHINE OPERATOR, Jayda Patel Attending Unavailable Daley WASHING TUB OPERATOR-MICA MACHINE OPERATOR, Jairo Moore Primary Care Unavailable Daley WASHING TUB OPERATOR-MICA MACHINE OPERATOR, Jairo Moore Primary Care Unavailable Bertram DPM, Brant Sun Attending Unavailab le Laudick PA-C, Nat Zaman Attending Unava ilable Daley WASHING TUB OPERATOR-MICA MACHINE OPERATOR, Jairo Oscar Primary Care Unavailable Daley WASHING TUB OPERATOR-MICA MACHINE OPERATOR, Jairo Oscar Primary Care Unavailable Imtiaz Garvin Attending Unavailable Daley WASHING TUB OPERATOR-MICA MACHINE OPERATOR, Jairo Oscar Primary Care Unavailable Bertram DPM, Brant Sun Attending Unavailab le Bertram DPM, Brant Sun Attending Unavailab le Daley WASHING TUB OPERATOR-MICA MACHINE OPERATOR, Jairo Moore Primary Care Unavailable Bertram DPM, Brant Sun Attending Unavailab le Daley WASHING TUB OPERATOR-MICA MACHINE OPERATOR, Jairo Oscar Primary Care Unavailable Bertram DPM, Brant Sun Attending Unavailab le Daley WASHING TUB OPERATOR-MICA MACHINE OPERATOR, Jairo Oscar Primary Care Unavailable Imtiaz Garvin Attending Unavailable Bertram DPM, Brant Sun Attending Unavailab le Bertram DPM, Brant Sun Attending Unavailab le Daley WASHING TUB OPERATOR-MICA MACHINE OPERATOR, Jairo Moore Primary Care Unavailable Daley GLOBAL MARKETING INTERN-C, Jairo Cabrera Primary Care Provider Hay Rea MD Attending Provider Chantale aCrdona MD Attending Provider [phone] Jairo Daley Primary Care Unavailable Chantale Cardona Admitting Unavailable Chantale Cardona Attending Unavailable Jairo Daley Primary Care Unavailable Koromia, Hay Yang Admitting Unavai lable Koromia, Hay Yang Attending Unavai lable Koromia, Hay Yang Referring Unavai labJairo Richards Primary Care Unavailable Veronicaombindu, Hay Yang Admitting Unavai lable Koromia, Hay Yang Attending Unavai lable Asaad, Imad Admitting Unavailable Asaad, Imad Attending Unavailable Jairo Daley Primary Care Unavailable Edi WASHING TUB OPERATOR - MICA MACHINE OPERATORJairo Primary Care Prov ider JAIRO DALEY Primary Care Unavailable FILIBERTO SOW Referring Unavailable JAIRO DALEY Primary Care Unavailable JASON DOMINGUEZ Referring Unavailable JAIRO DALEY Primary Care Unavailable JUVENCIO RUELAS Referring Unavailable JAIRO DALEY Primary Care Unavailable JUVENCIO RUELAS Referring Unavailable Allergies Allergy ClassificationReported Allergen(s)Allergy TypeDate of OnsetReaction(s) Facility (8 sources)Silicone adhesive tapePropensity to adverse reactions to drug 07-90-9947[facility]DT[facility] ([facility] source)bee venomDrug allergy (disorder)99-33-8875Bzk [facility] Rep[facility] (1 source)LatexDrug allergy (disorder)[facility] Rep[facility] (4 sources)Honey bee venomAllergy to illhjsbhk72-99-3828DjjvfuahqxzMATD Healthcare (13 sources)Lisinopril; Translations: [LISINOPRIL]Propensity to adverse wuhngoawf29-50-8265JjbnuBRVT Healthcare (4 sources)Attends Briefs SmallDrug Wxacxzpfeuk50-91-3268MzmcMRUO Healthcare (16 sources)Adhesive agent; Translations: [ADHESIVE]Propensity to adverse reactions to drug (disorder)59-91-4992PlhqOnbGppscl Repository (16 sources)BEE VENOM PROTEIN (HONEY BEE); Translations: [BEE VENOM PROTEIN (HONEY BEE)]Propensity to adverse reactions to drug (disorder)01-27-2013 [facility] Repository (16 sources)LisinoprilDrug Pdsekcj67-80-7107RpwswGBMCarilion [facility]iles [facility] (6 sources)venom-honey bee; Translations: [venom-honey bee]Allergy to substance 94-60-7305NysalmdfydaSwqqtbxbjAv[facility] (1 source)Adhesive Tape; Translations: [Tape]Propensity to adverse reactions (disorder)[facility] Repository (1 source)Bee/Wasp/Ant venom; Translations: [Bee Stings]Propensity to adverse reactions (disorder)[facility] Repository (1 source)LisinoprilDrug Vzffwma51-24-5188FdgylrhrdAvita Health System [facility] RepositoryNEGATED: Highlighted row has been ruled out! (8 sources)OtherPropensity to adverse -39-7639MKO [facility] Medications Current Medications MedicationDrug Class(es)DatesSig (Normalized)Sig (Original)acetaminophen 500 mg / HYDROcodone bitartrate 7.5 mg oral tablet (8 sources)Opioid Agonisttake 1 tablet by mouth once as needed, then take 1 tablet by mouth every four hours as neededhydrocodone-acetaminophen (LORTAB) 7.5-500 MG per tablet Take 1 tablet by mouth. 1 tab Q 4 hrs PRN [id number] 200 actuat albuterol 0.09 mg/actuat metered dose inhaler (20 sources)beta2-Adrenergic AgonistStart: 70-93-6199Whrtb: 16-39-0024fdvl 2 puff(s) by inhalation every four hours as needed for wheezingalbuterol sulfate HFA (PROVENTIL;VENTOLIN;PROAIR) 108 (90 Base) MCG/ACT inhaler INHALE 2 PUFFS EVERY 4 HOURS NEEDED FOR WHEEZING OR SHORTNESS OF BREATH 03/03/2023 Active Start: 03-03-2023 End: 84-27-8573yqlx 2 puff(s) by inhalation every four hours as needed for wheezingalbuterol (PROVENTIL HFA;VENTOLIN HFA) 90 mcg/actuation inhaler Indications: Chronic bronchitis with emphysema ([facility]-HCC) Inhale 2 puffs every 4 (four) hours as needed for wheezing or shortness of breath. 18 g 6 01/15/2024 ActiveStart: 82-18-6254dqze 2 puff(s) by mouth every six hours as needed albuterol HFA 90 mcg/act inhaler TAKE TWO PUFFS BY MOUTH EVERY 6 HOURS NEEDED 03/03/2023 Activetake 2 puff(s) by inhalation four times daily as needed ALBUTEROL IN Inhale into the lungs. 2 puffs 4 times a day PRN 0 ActiveamLODIPine 10 mg oral tablet (3 sources)Dihydropyridine Calcium Channel BlockerStart: 06-54-5996yjnr 1 tablet by mouth once dailyatomoxetine 25 mg oral capsule (3 sources)Norepinephrine Reuptake InhibitorStart: 45-63-1295lhuq 1 capsule by mouth once dailyatomoxetine (STRATTERA) 25 MG capsule Take 1 capsule by mouth daily. 30 capsule 11 02/06/2012 Activeazithromycin 250 mg oral tablet (1 source)Macrolide AntimicrobialStart: 09-13-2024 End: 38-44-7906pdevmjpownos (ZITHROMAX) 250 mg tablet Indications: COPD exacerbation (CMS-HCC) Take 2 tablets the first day, then 1 tablet daily for 4 days. 6 tablet 09/13/2024 09/17/2024 Activediclofenac sodium 75 mg delayed release oral tablet (20 sources)Nonsteroidal Anti-inflammatory DrugStart: 68-66-7714ssxm 1 tablet by mouth twice dailydiclofenac (VOLTAREN) 75 MG EC tablet Take 1 tablet by mouth 2 times daily 07/10/2025 ActiveStart: 08-20-2023 End: 63-57-7841edbu 1 tablet by mouth twice dailyStart: 21-84-7597yhjh 1 tablet by mouth in the morningdiclofenac (VOLTAREN) 75 MG EC tablet diclofenac sodium 75 mg tablet,delayed release TAKE 1 TABLET BY MOUTH IN THE MORNING AND 1 TABLET BEFORE BEDTIME 0 11/17/2022 Rqcbszyjf302954 0.3 ml EPINEPHrine 1 mg/ml auto-injector (20 sources)alpha-Adrenergic Agonist, beta-Adrenergic Agonist, Catecholamine Start: 01-16-2023 End: 12-62-6831JGUNDTRqbil (EPIPEN) 0.3 mg/0.3 mL auto-injector USE DIRECTED FOR BEE STINGS 2 each 3 Discontinued (Therapy completed) Start: 13-91-7408LZOHNXXafuj (EPIPEN 2-ROSALINDA) 0.3 MG/0.3ML DANIELLE injection Inject 0.3 mLs into the muscle once as needed for 1 dose. 1 Device 1 02/07/2012 Active esomeprazole 40 mg delayed release oral capsule (5 sources)Proton Pump InhibitorStart: 25-97-2029iadx 1 capsule by mouth once daily before breakfastesomeprazole (NEXIUM) 40 MG capsule Take 1 capsule by mouth every morning (before breakfast). 30 capsule 5 02/07/2012 ActiveFLUoxetine 10 mg oral capsule (20 sources)Serotonin Reuptake InhibitorStart: 28-53-0406njlp 1 capsule by mouth once dailyFLUoxetine (PROZAC) 10 MG capsule Take 1 capsule by mouth daily 05/25/2025 ActiveStart: 08-03-2023 End: 14-87-6800yekp 1 capsule by mouth once dailyStart: 70-27-8536wobv 1 capsule by mouth once dailyFLUoxetine (PROZAC) 10 MG capsule fluoxetine 10 mg capsule TAKE 1 CAPSULE (10 MG TOTAL) BY MOUTH NIGHTLY. 0 09/04/2022 Active Grlxducvyru-Jwhqedqrt-Zqaubtic (20 sources)Anticholinergic, Corticosteroid, beta2-Adrenergic AgonistStart: 99-77-5505Rwwck: 37-85-0805Rehdelweusm-Umeclidin-Vilanter (Trelegy Ellipta) 100-62.5-25 mcg blister with device Active 1 INH INHALATION Once December 14, 2024 1:00amStart: 70-93-4227Khgjwesplxq-Umeclidin-Vilanter (Trelegy Ellipta) 100-62.5-25 mcg blister with device Active 1 INH INHALATION Once December 14, 2024 12:00amStart: 08-20-2023 End: 87-47-7896nsjb 1 puff(s) by mouth once dailyTRELEGY ELLIPTA 100-62.5-25 mcg blister with device Indications: Chronic bronchitis with emphysema (CMS-HCC) INHALE 1 PUFF BY MOUTH EVERYDAY *RINSE MOUTH AFTER USE* Strength: 100-62.5-25 mcg 28 each 6 12/16/2024 Activegabapentin 300 mg oral capsule (20 sources)Anti-epileptic AgentStart: 57-61-5364elhx 1 capsule by mouth twice dailyStart: 08-20-2023 End: 74-76-6913hror 1 capsule by mouth once daily in the morninggabapentin (NEURONTIN) 100 mg capsule Indications: Fibromyalgia TAKE 1 CAPSULE BY MOUTH EVERY MORNING AND AFTERNOON 180 capsule 1 12/16/2024 ActiveStart: 10-28-2022 End: 59-65-0203valk 1 capsule by mouth at bedtimegabapentin (NEURONTIN) 300 MG capsule Take 1 capsule by mouth in the morning and at bedtime. 10/28/2022 Active levothyroxine sodium 0.025 mg oral tablet (20 sources)l-ThyroxineStart: 12-15-2023 End: 61-61-6223kipx 1 tablet by mouth once dailyStart: 10-02-2023 End: 09-79-9429qrra 1 tablet by mouth in the morninglevothyroxine (SYNTHROID, LEVOTHROID) 50 MCG tablet Indications: Acquired hypothyroidism TAKE 1 TABLET BY MOUTH IN THE MORNING 90 tablet 1 10/02/2023 12/15/2023 Discontinued (Reorder) lisinopril 10 mg oral tablet (6 sources)Angiotensin Converting Enzyme InhibitorStart: 06-25-2023 End: 90-98-6592gost 1 tablet by mouth in the morninglisinopril 10 MG tablet Take 10 mg by mouth in the morning. 06/25/2023 Activelosartan potassium 100 mg oral tablet (20 sources)Angiotensin 2 Receptor BlockerStart: 11-03-2024 End: 45-87-0151bcyn 1 tablet by mouth once dailyStart: 07-03-2023 End: 73-58-3798evhl 1 tablet by mouth once dailyLosartan 25 [...] oral tablet (20 sources)beta-Adrenergic BlockerStart: 10-31-2022 End: 11-03-8773kcua 1 tablet by mouth twice dailymetoprolol tartrate (LOPRESSOR) 25 MG tablet metoprolol tartrate 25 mg tablet TAKE 1 TABLET BY MOUTH TWICE A DAY 10/31/2022 Activenitroglycerin 0.4 mg sublingual tablet (20 sources)Nitrate VasodilatornitroGLYCERIN (NITROSTAT) 0.4 MG SL tablet nitroglycerin 0.4 mg sublingual tablet DISSOLVE 1 TABLETUNDER TONGUE NEEEDED Activepropylthiouracil 50 mg oral tablet (14 sources)Thyroid Hormone Synthesis InhibitorStart: 10-31-2022 End: 33-17-4977irzqvyjdzixecdco (PTU) 50 MG tablet propylthiouracil 50 mg tablet TAKE 1 TABLET BY MOUTH IN THE MORNING, 1 TABLET AT NOON, 1 TABLET BEFORE BEDTIME 10/31/2022 Activetamsulosin hydrochloride 0.4 mg oral capsule (1 source)alpha-Adrenergic BlockerStart: 90-29-2972lcnj 1 capsule by mouth once daily in the eveningtamsulosin (FLOMAX) 0.4 MG capsule Take 1 capsule by mouth every evening 30 capsule 1 07/18/2025 Activetiotropium (5 sources)AnticholinergicTiotropium [employer] Monohydrate (SPIRIVA HANDIHALER IN) Inhale into the lungs daily. 0 ActivetraMADol hydrochloride 50 mg oral tablet (17 sources)Opioid AgonistStart: 08-10-2024 End: 62-66-7601fgfj 1 tablet by mouth every six hours as neededStart: 01-14-2023 End: 65-51-0107zzng 1 tablet by mouth every eight hours as needed for pain traMADoL (ULTRAM) 50 mg tablet Indications: Arthritis, multiple joint involvement Take 1 tablet (50mg total) by mouth every 8 (eight) hours as needed for pain for up to 10 days. 20 tablet 0 12/11/2023 12/21/2023 ActiveUNABLE TO FIND (5 sources)UNABLE TO FIND Epi pen PRN 0 Active Completed/Discontinued Medications MedicationDrug Class(es)DatesSig (Normalized)Sig (Original)Ioc4053-Ujt Dxl-Ajim-Gmz-Asb-C (6 sources)Osmotic Laxative, Vitamin CStart: 06-04-2024 End: 47-73-9717fgtv 1 dose by mouth once kdldqUpi6780-Ogp Wua-Ygsb-Nhk-Asb-C (Plenvu) 140-9-5.2 gram powder in packet, sequential Discontinued 140 ML PO .COMPLEX 1 1 June 04, 2024 12:00am December 15, 2024 4:12pm First dose at 4pm the day before colonoscopy, Second dose at 11pm the night before the colonoscopyStart: 06-04-2024 End: 27-55-2217fwqg 1 dose by mouth once ixgjgGad5258-Cej Yuk-Ahmx-Kim-Asb-C (Plenvu) 140-9-5.2 gram powder in packet, sequential Discontinued 140 ML PO .COMPLEX 1 1 June 03, 2024 11:00pm December 15, 2024 3:12pm First dose at 4pm the day before colonoscopy, Second dose at 11pm the night before the colonoscopyStart: 54-96-2085nbrt 1 dose by mouth once epsrrWey7050-Aab Mqw-Vwgp-Rxz-Asb-C (Plenvu) 140-9-5.2 gram powder in packet, sequential Active 140 ML PO .COMPLEX 1 1 June 04, 2024 12:00am First dose at 4pm the day before colonoscopy, Second dose at 11pm the night before the colonoscopy Fluticasone Propion-Salmeterol (11 sources)Corticosteroid, beta2-Adrenergic AgonistStart: 07-07-2024 End: 27-19-8740vvis 1 puff(s) by inhalation twice dailyFluticasone Propion- Salmeterol (Advair Diskus) 500-50 mcg/dose blister with device Discontinued 1 IN H INHALATION Twice daily July 07, 2024 12:00am July 05, 2025 9:28am FreeTextSi puff Inhalation Twice a day; Note: Source Status: Taking; Provider: Neha Collazo ( )Start: 22-72-5170oddp 1 puff(s) by inhalation twice dailyFluticasone Propion-Salmeterol (Advair Diskus) 500-50 mcg/dose blister with device Active 1 INH INHALATION Twice daily July 06, 2024 11:00pm FreeTextSi puff Inhalation Twice a day; Note: Source Status: Taking; Provider: Neha Collazo ( )Start: 68-73-0543seht 1 puff(s) by inhalation twice dailyFluticasone Propion-Salmeterol [...] Diuretic, Angiotensin Converting Enzyme InhibitorStart: 07-07-2024 End: 85-14-1771uofd 1 tablet by mouth once dailyLisinopril-Hydrochlorothiazide 10-12.5 mg tablet Discontinued 1 TAB PO Daily July 07, 2024 12:00am July 07, 2024 8:17am FreeTextSi tablet Orally Once a day; Note: Source Status: Not-TakingundefinedPRN; Provider: Neha Collazo ( )iopamidol (ISOVUE-370) 76 % injection 120 mL (1 source)Start: 12-26-2022 End: 71-77-2555cqhupniit (ISOVUE-370) 76 % injection 120 mLpredniSONE 20 mg oral tablet (3 sources)Start: 10-06-2024 End: 42-97-9320tilwqrVFWN (DELTASONE) 20 mg tablet Indications: COPD exacerbation (CMS-HCC) Take 1 tablet (20 mg total) by mouth See Admin Instructions. 1 tab 2x daily x3 days, 1 tab daily x3 days, 1/2 tablet dailyx4 days 11 tablet 10/06/2024 11/03/2024 Discontinued (Therapy completed)Start: 41-46-6076puvhpiYLZT (DELTASONE) 20 mg tablet Indications: COPD exacerbation (CMS-HCC) Take 1 tablet (20 mg total) by mouth See Admin Instructions. 1 tab 2x daily x3 days, 1 tab daily x3 days, 1/2 tablet dailyx4 days 11 tablet 09/13/2024 Activespironolactone 25 mg oral tablet (20 sources)Aldosterone AntagonistStart: 05-23-2023 End: 00-18-5940orlb 1 tablet by mouth once dailySpironolactone 25 mg tablet Discontinued 25 MG PO Daily December 14, 2024 1:00am December 15, 2024 4:11pmtraZODone hydrochloride 50 mg oral tablet (20 sources)Serotonin Reuptake InhibitorStart: 07-07-2024 End: 94-09-4583adtv 1 tablet by mouth once daily at bedtimeTrazodone 50 mg tablet Discontinued 50 MG PO Daily at bedtime July 07, 2024 12:00am 2024 4:11pm FreeTextSi tablet at bedtime as needed Orally Once a day; Note: Source Status: Taking; Provider: Neha Collazo ( ) Start: 10-31-2022 End: 75-42-7377hzre 1 tablet by mouth at bedtimetraZODone (DESYREL) 150 MG tablet trazodone 150 mg tablet TAKE 1 TABLET BY MOUTH AT BEDTIME 10/31/2022 Active Problems Active Problems Problem ClassificationProblemDateDocumented DateEpisodic/ChronicAnxiety disorders (6 sources)Mixed anxiety and depressive disorder; Translations: [Anxiety disorder, unspecified]Onset: 035878-12-8241VnmrslcPficflbfb infection; unspecified site (1 source)Other specified bacterial agents as the cause of diseases classified elsewhere; Translations: [Other specified bacterial agents as the cause of diseases classified elsewhere]Onset: 10-48-8995HaoufdeqXvycbwqi of urinary tract (20 sources)Kidney stone; Translations: [Calculus of kidney]Onset: 08-11-2022 EpisodicCancer of cervix (1 source)Personal history of malignant neoplasm of cervix uteri; Translations: [PERS HX MALIG NEOPLASM CERV UTERI]Onset: 29-12-8286YpfzapieLlglmgb dysrhythmias (1 source)Unspecified atrial fibrillation; Translations: [Unspecified atrial fibrillation]Onset: 17-38-7593BttfllnTkticvw obstructive pulmonary disease and bronchiectasis (20 sources)Emphysema, unspecified; Translations: [Chronic bronchitis]Onset: 04-01-2022 Resolved: 173759-01-5025OsqmcueXjmaidl obstructive pulmonary disease and bronchiectasis (1 source)Chronic obstructive pulmonary disease and bronchiectasis; Translations: [Other specified chronic obstructive pulmonary disease]Onset: 64-60-0990Wsslnmxgw of lipid metabolism (2 sources)Mixed hyperlipidemia; Translations: [Mixed hyperlipidemia]Onset: 337361-81-8483VztkwtzPwwmorpsv usually diagnosed in infancy, childhood, or adolescence (20 sources)Attention deficit hyperactivity disorder, predominantly inattentive type; Translations: [Other specified behavioral and emotional disorders with onset usually occurring in childhood and adolescence]Onset: ChronicE Codes: Fall (1 source)Fall on same level from slipping, tripping and stumbling with subsequent striking against unspecified object, initial encounter; Translations: [FALL SAME LVL SLIP STRK UNS OBJ INT]Onset: 07-55-1796AcixbppvLuiqdooihd disorders (1 source)Gastro-esophageal reflux disease without esophagitis; Translations: [GERD WITHOUT ESOPHAGITIS]Onset: 98-34-9716RuquwphIlethdbgu hypertension (20 sources)Essential (primary) hypertension; Translations: [Benign essential hypertension]Onset: 68-44-7732TfoxdriFjdxpcjltwfxk symptoms and ill-defined conditions (2 sources)Incontinence; Translations: [Mixed incontinence]Onset: 07-18-2025 56-74-1824SaikzkaMvpqyszjhuwpl symptoms and ill-defined conditions (10 sources)Rafael hematuria; Translations: [Gross hematuria]Onset: 07-18-2025 EpisodicHeadache; including migraine (1 source)Headache; including migraine; Translations: [HEADACHE UNSPECIFIED] Onset: 15-90-9306Wixaj valve disorders (19 sources)Nonrheumatic mitral (valve) insufficiency; Translations: [Non- rheumatic mitral regurgitation ]Onset: 00-11-9946MqqkhlvZvtdnozgathl with complications and secondary hypertension (4 sources)Hypertensive heart disease without heart failure; Translations: [Unspecified hypertensive heart disease without heart failure]11-00-1766Mvfclvf Joint disorders and dislocations; trauma-related (20 sources)Chondromalacia of left patella; Translations: [Chondromalacia patellae, left knee]Onset: 495385-44-4206KgfnfsdJqzboahjuvdmg mental health disorders (7 sources)Primary insomnia; Translations: [Primary insomnia]Onset: 08-20-2023 31-93-5909VogiwljErvn disorders (1 source)DepressionOnset: 73-15-5108QfhhpwyRiwg disorders (14 sources)Mood disorders; Translations: [Depression, unspecified]Onset: 04-12-2024 Resolved: 879051-36-2053Mwogqidcipkfhk (16 sources)Unspecified osteoarthritis, unspecified site; Translations: [Osteoarthritis of joint of right ankleand/or foot]Onset: 073007-32-5515 ChronicOther aftercare (1 source)Other watermaster (current) drug therapy; Translations: [OTH SUPERVISOR STOCK RANCH CURRENT DRUG THERAPY]Onset: 44-39-5253SeatcmsuWubov connective tissue disease (2 sources)Disorder of musculoskeletal system; Translations: [Other specified disorders of synovium, right ankle and foot]35-86-0003BymmemvxFfwlm ear and sense organ disorders (1 source)Unspecified hearing loss, left ear; Translations: [UNSPECIFIED HEARING LOSS LEFT EAR]Onset: 35-99-6776AincozeLrsri ear and sense organ disorders (17 sources)Sensorineural hearing loss, unilateral, left ear, with unrestricted hearing on the contralateral side; Translations: [Sensorineural hearing loss, unilateral]Onset: 04-21-0056UonjuoqWkbmy ear and sense organ disorders (1 source)Unspecified hearing loss, unspecified ear; Translations: [UNS HEARING LOSS UNSPECIFIED EAR]Onset: 83-91-1005LjsxuwtGxsil ear and sense organ disorders (13 sources)Deafness of left ear; Translations: [Unspecified hearing loss, left ear]Onset: 556085-20-0772AoitdulWnxvd lower respiratory disease (3 sources)Pleurodynia; Translations: [PLEURODYNIA]Onset: 88-58-3496Oagprfsi Other nervous system disorders (1 source)Other chronic pain; Translations: [OTHER CHRONIC PAIN]Onset: 85-69-7040JnbdkkgAaipl nervous system disorders (13 sources)Chronic pain syndrome; Translations: [Chronic pain syndrome]Onset: 671757-09-0868EqtzdfqQhwrw non-traumatic joint disorders (6 sources)Arthropathy of multiple joints; Translations: [Arthropathy, unspecified]81-87-9456YtoofluIzuzf non-traumatic joint disorders (1 source)Arthropathy, unspecified; Translations: [Arthropathy, unspecified] Onset: 60-71-6702PjlhrluIbbqj nutritional; endocrine; and metabolic disorders (1 source)Obesity, unspecified; Translations: [OBESITY UNSPECIFIED]Onset: 63-95-9973UqqtipiCwtis nutritional; endocrine; and metabolic disorders (1 source)Body mass index (BMI) 35.0-35.9, adult; Translations: [BODY MASS INDEX BMI 35.0-35.9 ADULT]Onset: 91-49-2493FmdjvfrTyzio nutritional; endocrine; and metabolic disorders (15 sources)Morbid obesity; Translations: [Morbid (severe) obesity due to excess calories]Onset: 527882-11-4703MrejuycDjxqx nutritional; endocrine; and metabolic disorders (1 source)Morbid (severe) obesity due to excess calories; Translations: [Morbid (severe) obesity due to excess calories]Onset: 96-07-0250JcxtrccUvfhc upper respiratory infections (2 sources)Chronic maxillary sinusitis; Translations: [Chronic sinusitis, unspecified]Onset: 61-58-7722ZaftgxiZwxdzcfm codes; unclassified (1 source)Acquired absence of both cervix and uterus; Translations: [ACQUIRED ABSENCE BOTH CERVIX AND UTERUS]Onset: 53-86-1356EqkdvcceLagwqivln and history of mental health and substance abuse codes (1 source)H/O: depression; Translations: [Personal history of other mental and behavioral disorders]85-10-8774WgyeuhooMvdgubeykws; intervertebral disc disorders; other back problems (20 sources)Lumbar post-laminectomy syndrome; Translations: [Postlaminectomy syndrome, not elsewhere classified]Onset: hronic Spondylosis; intervertebral disc disorders; other back problems (1 source)Dorsalgia, unspecified; Translations: [DORSALGIA UNSPECIFIED]Onset: 47-65-0998UvyxufosSnxdqoaai-related disorders (20 sources)Nicotine dependence, cigarettes, uncomplicated; Translations: [Nicotine dependence, cigarettes, with unspecified nicotine-induced disorders] Onset: 98-10-5511FkrkgpsVinclkaqrzz injury; contusion (3 sources)Contusion of left front wall of thorax, initial encounter; Translations: [Contusion of right elbow,initial encounter]Onset: 03-11-2022 EpisodicThyroid disorders (20 sources)Thyrotoxicosis with diffuse goiter without thyrotoxic crisis or storm; Translations: [Graves' disease]Onset: 968082-38-8531Oujoaxy Unclassified (1 source)Annual ExamOnset: 51-46-7521Rfvkoedxaklv (1 source)fibroOnset: 08-10-2024 Past or Other Problems Problem ClassificationProblemDateDocumented DateEpisodic/ChronicAbdominal pain (4 sources)Unspecified abdominal pain; Translations: [UNSPECIFIED ABDOMINAL PAIN]Onset: 82-60-0796FwgbtykvGwqtut of ovary (1 source)Personal history of malignant neoplasm of ovary; Translations: [PERSONAL HX MALIG NEOPLASM OVARY]Onset: 27-15-9990ZaytpraeVxfobvp dysrhythmias (13 sources)Intermittent palpitations; Translations: [Palpitations]Onset: 308188-66-7125PvyhoejzBalopawbxsnfaznh hemorrhage (4 sources)Melena; Translations: [MELENA]Onset: 88-37-8192YvsshxrzRnhxvsrnzmswv and screening for infectious disease (4 sources)Encounter for screening for other viral diseases; Translations: [Viral screening status]Onset: 445901-44-7723CsgzmatgDtzgbxg (3 sources)Onychomycosis; Translations: [Tinea unguium]64-79-0565Cnekfgyt Nonspecific chest pain (18 sources)Atypical chest pain; Translations: [Other chest pain]Onset: 698973-14-4041KuvvfsjaHejqq bone disease and musculoskeletal deformities (1 source)Other specified disorders of bone density and structure, left thigh; Translations: [OTH D/O BONE DEN STRUCT LT THIGH]Onset: 59-50-2886HhxsqawyXblzm bone disease and musculoskeletal deformities (13 sources)Bone cyst; Translations: [Other cyst of bone, unspecified site] Onset: 267670-60-5705UwlngrhxEvruw connective tissue disease (1 source)Pain in right foot; Translations: [PAIN IN RIGHT FOOT]Onset: 16-88-8572VtqsyifdLtrtm connective tissue disease (3 sources)Pain of toes of bilateral feet; Translations: [Pain in right toe(s)] 88-07-0564BfyfekktYzlma connective tissue disease (20 sources)Fibromyalgia; Translations: [Fibromyalgia]Onset: 11-11-2022 16-18-6550LeilvrrdJdzsm connective tissue disease (1 source)Fibromyalgia; Translations: [Fibromyalgia]Onset: 13-97-4355Zxehddwl Other infections; including parasitic (1 source)H/O: infectious disease; Translations: [Personal history of other infectious and parasitic diseases]71-09-9694WwiwpldqFsysw non-traumatic joint disorders (4 sources)Pain in right ankle and joints of right foot; Translations: [PAIN IN RIGHT ANKLE]Onset: 61-28-8124HlklmhfhXcamo non-traumatic joint disorders (4 sources)Pain in right elbow; Translations: [PAIN IN RIGHT ELBOW]Onset: 30-60-9252LvplhbbqBdbyd screening for suspected conditions (not mental disorders or infectious disease) (8 sources)Encounter for screening for osteoporosis; Translations: [Encounter for screening mammogram for malignant neoplasm of breast]Onset: 08-18-2022 43-62-5360QxidgnujMgqug upper respiratory infections (1 source)Acute maxillary sinusitis, unspecified; Translations: [ACUTE MAXILLARY SINUSITIS UNS]Onset: 79-64-1550BuvkiwzdMbariavi codes; unclassified (20 sources)Insomnia; Translations: [Insomnia, unspecified]Onset: 02-06-2012 64-94-2815IzejgydiHwnfbszb codes; unclassified (8 sources)Tobacco user; Translations: [Tobacco use]Onset: EpisodicResidual codes; unclassified (4 sources)Asymptomatic menopausal state; Translations: [ASYMPTOMATIC MENOPAUSAL STATE]Onset: 94-99-8549CquuraejRcoveynu codes; unclassified (1 source)Family history of leukemia; Translations: [FAMILY HISTORY OF LEUKEMIA] Onset: 94-67-4097FcpumkgoFyysaauh codes; unclassified (1 source)Family history of malignant neoplasm of kidney; Translations: [FAM HX MALIGNANT NEOPLASM KIDNEY]Onset: 68-93-8513AlhkgmcsFoaglxph codes; unclassified (1 source)Acquired absence of ovaries, bilateral; Translations: [ACQUIRED ABSENCE OVARIES BILATERAL]Onset: 90-95-3879VpmnzetgVyhujba and strains (1 source)Tendon injury - lower limb; Translations: [Strain of muscle(s) and tendon(s) of peroneal muscle group at lower leg level, right leg, initial encounter]63-08-3327XhjgkgkxKjkatvirnjnm (1 source)AMS, low o2 statsOnset: 90-22-2240Jlchawkvckxw (13 sources)Onset: 10-06-2024 Resolved: Results Test NameValueInterpretationReference RangeFacilityBasic Metabolic Profon 01-17-3525Imfcu gap [Moles/Vol]8 mmol/LLow9-16[facility] HospitalComment on above:Performed By: #### BMP #### [address] [place], [place] [address]83 Duco Polisher: Xavier Cuevas MDBUN/CRE Wheqo36Rmhgjr7-62Diyvj [facility] Comment on above:Performed By: #### BMP #### [address] [place] [address] Duco Polisher: NAGA Melendezalcium [Mass/Vol]9.7 mg/dLNormal8.6-10.4[facility] HospitalComment on above:Performed By: #### BMP #### [address] [place] [address] Duco Polisher: NGAA Melendezhloride [Moles/Vol]103 mmol/NTsrpnv94-986AzegkSelect Medical Ohiohealth Rehabilitation HospitalComment on above:Performed By: #### BMP #### [address] [place] [address] Duco Polisher: Xavier Cuevas MDCO2 [Moles/Vol]30 mmol/SWdhuii36-35UvigdSelect Medical Ohiohealth Rehabilitation HospitalComment on above:Performed By: #### BMP #### [address] [place], [place] [address]83 Duco Polisher: NAGA Melendezreatinine [Mass/Vol]1.0 mg/dLHigh0.50-0.90[facility] HospitalComment on above:Performed By: #### BMP #### [address] [place] [address] Duco Polisher: Xavier Cuevas MDGFR/1.73 sq M.predicted among non-blacks MDRD (S/P/Bld) [Vol rate/Area]64 mL/min/{1.73_m2}Normal>60[facility] Comment on above:Result Comment: These results are not intended for [...] or following therapy that affects renal tubular secretion.Performed By: #### BMP #### [address] [place] [address] Duco Polisher: Xavier Cuevas MDGlucose [Mass/Vol]109 mg/wKUtli94-72SpcosMercy Health West HospitalComment on above:Performed By: #### BMP #### [address] [place] [id number] Duco Polisher: PAU Melendezotassium [Moles/Vol]4.3 mmol/LNormal3.7-5.3MMercy Health West HospitalComment on above:Performed By: #### BMP #### [address] [place] [address] Duco Polisher: Xavier Cuevas MDSodium [Moles/Vol]141 mmol/KYuujfk306-456CaqzeSelect Medical Ohiohealth Rehabilitation HospitalComment on above:Performed By: #### BMP #### [address] [place] [address] Duco Polisher: Xavier Cuevas MDUrea nitrogen [Mass/Vol]19 mg/dLNormal8-23[facility] HospitalComment on above:Performed By: #### BMP #### [facility] [address] [place] [address] Duco Polisher: NAGA Melendezult,Urineon 14-46-7829Zcpp,UrineSpecimen Description .CLEAN CATCH URINE Special Requests Site: Urine Culture NO SIGNIFICANT GROWTH Report Status FINAL 07/19/2025NoMercy Health West HospitalComment on above: Performed By: #### URC #### [facility] [address] [place], [place] 2[address] Duco Polisher: Richard Farias MD [facility] [address] [place] [address] [place] [address] Duco Polisher: Xavier Cuevas MDUrinalysis w/ Microon 73-60-3712Fcwluyzsb, SemiQt,UrNegativeNormalNEGSelect Medical Ohiohealth Rehabilitation HospitalComment on above:Performed By: #### UAMIC #### [facility] [address] [place] [address] [place], [place] [id number] Duco Polisher: Arya Melendez, UrineNegativePremier Health Atrium Medical Center Comment on above:Performed By: #### UAMIC #### [facility] [address] [place] [address] Dr[place], [place] [address] Duco Polisher: NAGA Melendezlarity (U)ClearNoalCLEARSelect Medical Ohiohealth Rehabilitation Hospital Comment on above:Performed By: #### UAMIC #### [facility] [address] [place] [address] [place] [address] Duco Polisher: NAGA Melendezolor (U)YellowPremier Health Atrium Medical Center Comment on above:Performed By: #### UAMIC #### [facility] [address] [place] [address] [place] [address] Duco Polisher: Xavier Cuevas MDEpithelial cells LM Ql (Urine sed)0 TO 1Jqoksj6-37 [facility] HospitalComment on above:Performed By: #### UAMIC #### [facility] [address] [place] [address] [place] [address] Duco Polisher: Xavier Cuevas MDGlucose Ql (U)NegativeNormalNEGMercy University Of [facility] Health Center/John Dempsey HospitalComment on above:Performed By: #### UAMIC #### [facility] [address] [place] [address] Dr[place], [place] [phone] Duco Polisher: Xavier Cuevas MDKetones Ql (U)NegativeNormalNEGMercy Seminole HospitalComment on above:Performed By: #### UAMIC #### [address] [place], [place] [address] Duco Polisher: Xavier Cuevas MDLeukocyte esterase Test strip Ql (U)NegativeNormal NEGMercy University Of [facility] Health Center/John Dempsey HospitalComment on above:Performed By: #### UAMIC #### [address] [place], [facility]83 Duco Polisher: Xavier Cuevas MDNitrite,UrNegativeNormalNEGSelect Medical [facility]health Rehabilitation Hospital Comment on above:Performed By: #### UAMIC #### [facility] [address] [place] [address] Dr[place], [place] 6266[address] Duco Polisher: Xavier Cuevas [facility],Ur6.2Fwfqyi9.0-9.0[facility] HospitalComment on above:Performed By: #### UAMIC #### [facility] [address] [place] [address] Dr[place], [facility]83 Duco Polisher: PAU Melendezrotein Ql (U)NegativeNormalNEGAdena Fayette Medical Center HospitalComment on above:Performed By: #### UAMIC #### [facility] [address] [place] [address] Dr[place], [place] 54[address] Duco Polisher: JOSE Melendezpec. [place],Ur1.175Pjjwqq1.010-1.020MerConnecticut HospiceComment on above:Performed By: #### UAMIC #### [facility] [address] [place] [address] Duco Polisher: Xavier Cuevas MDUrine RBC's0 TO 7Hlnshe4-4WvfewMercy Health West Hospital Comment on above:Performed By: #### UAMIC #### [facility] [address] [place], [place] [address] Duco Polisher: Baltazar Melendez WBC's2 TO 0Jrbhvw6-6LkzzdSelect Medical [facility]health Rehabilitation Hospital Comment on above:Performed By: #### UAMIC #### [facility] [address] [place], [place] [address]83 Duco Polisher: Xavier Cuevas MDUrobilinogen,UrNormalNormal0.0-1.0[facility] HospitalComment on above:Performed By: #### UAMIC #### [facility] [address] [place], [facility]83 Duco Polisher: Xavier Cuevas MDUrinalysis with Microscopicon 04-18-2938Oipuebule Ql (U)NegativeNEGATIVEBon Secours Mercy HealthClarity (U)ClearClearBon Secours Mercy HealthColor (U)YellowYellowBon Secours Mercy HealthEpithelial cells LM.HPF (Urine sed) [#/Area]0 TO [...] HealthRBC LM.HPF (Urine sed) [#/Area]0 TO 2Bon [facility] Mercy HealthSpecific gravity (U) [Rel density]1.015 1.010 - 1.020Bon [facility] Medical CenterUrobilinogen Qn (U)Normal0.0 - 1.0 EU/dLBon Adena Regional Medical CenterWBC LM.HPF (Urine sed) [#/Area]2 TO 5Bon [facility] SystemXR ABDOMEN (KUB) (SINGLE AP VIEW)on 76-89-6032AT ABDOMEN (KUB) (SINGLE AP VIEW)EXAMINATION: ONE SUPINE XRAY VIEW(S) OF THE ABDOMEN07/12/2025 10:49 am COMPARISON: KUB 06/02/2024 HISTORY: ORDERING SYSTEM PROVIDED HISTORY: Renal calculus, FINDINGS: No definite urinary tract calculus is seen on this study. Multiple pelvic phleboliths. No bowel obstruction. Postop lumbar spine. IMPRESSION: No urinary calculus is seen. Interpreted by: Timi Jones MD Signed by: Timi Jones MD 07/15/25 Final resultNormalMercy University Of [facility] Health Center/John Dempsey HospitalOrthopedic Office/Clinic Noteon 15-84-6090Zdowixqsqd Office/Clinic NoteChief Complaint F/U Lt Knee Pain [...] cadaveric kidney. The patient reports seeing a clinical lab assistant for her valve prior to her reconstructive [...] set in. The pa (more content not included)...[facility] TroyOrthopedic Office/Clinic NoteChief Complaint F/U Lt Knee Pain [...] cadaveric kidney. The patient reports seeing a clinical lab assistant for her valve prior to her reconstructive [...] on exam. - Recommended (more content not included)...[facility] Orthopedic Office/Clinic Noteon 06-26-8090Oefaaovxob Office/Clinic NoteChief Complaint hx of bilat. knee [...] 180 EA, 0 Refil (more content not included)...[facility] TroyXR Knee 3 Views Lefton 17-59-4117BS Knee 3 Views LeftExam: Three-view left knee [...] Signed, Electronically Signed in Other Vendor System)[facility] HospitalPodiatry Office/Clinic Noteon 14-78-4073Oislcqfq Office/Clinic NoteThe content of this note was [...] can [place] a convenient [place], such [place]. The patient previously attended physical therapy at [...] of Systems Musculoskeletal: Positive (more content not included)...[facility] TroyPodiatry Office/Clinic Noteon 05-90-2764Pofdsndd Office/Clinic Note Chief Complaint Post-Op Right ankle [...] to the plantar feet as tested with [place] [employer] monofilament. Gross motor intact bilateral [...] on this date, (more content not included)... [facility].eGFRon 08-85-0646EDG/1.73 sq M.predicted MDRD (S/P/Bld) [Vol rate/Area]mL/min/{1.73_m2}Normal>=60[facility] HospitalComment on above:Result Comment: [facility] have implemented the eGFR calculation [...] 1 Age = yearsPerformed By: #### EGFR ####[address] [address]RCQ w/ Diffon 41-16-5058Rlrylrxqlyn distribution width (RBC) [Ratio]13.1 %Azryed35.6-14.8BLakeHealth Beachwood Medical CenterComment on above:Performed By: #### CBC ####[address] [address]Ferfbmvbrq (Bld) [Volume fraction]38.8 %Gbsuus63.0-46.0 [facility] HospitalComment on above:Performed By: #### CBC ####[address] [address]Diugdodncv (Bld) [Mass/Vol]13.2 g/wBLwnjhb26.0-16.0Lutheran HospitalComment on above:Performed By: #### CBC ####[address] [address]ZVK (RBC) [Entitic mass]29.7 nhCuochw44.0-35.0Lutheran HospitalComment on above:Performed By: #### CBC ####[address] [address]KMVQ24.0 %Yoouic78.0-37.0 [facility] HospitalComment on above:Performed By: #### CBC ####[address] [address]LQL (RBC) [Entitic vol]87.5 gJHpiwpn90.0-100.0Lutheran HospitalComment on above:Performed By: #### CBC ####[address] [address]Bjevmlcn759 x10*3/wgPOvittr067-057JjhafbfmpLutheran HospitalComment on above:Performed By: #### CBC ####[address] [address]Vrdmgxur mean volume (Bld) [Entitic vol]9.1 fL Normal6.7-10.6BLakeHealth Beachwood Medical CenterComment on above:Performed By: #### CBC ####[address] [address]ZJD5.44 x10*6/mcLNormal3.80-5.20[facility]uther[facility] HospitalComment on above:Performed By: #### CBC ####[address] [address]SHV84.6 x10*3/mcLHigh4.5-11.0Lutheran HospitalComment on above:Performed By: #### CBC ####[address] [address]PDCmd 37-88-2168Jitfkkp [Mass/Vol]3.0 g/dLLow3.2-4.9 Luther[facility] HospitalComment on above:Performed By: #### COMP ####[address] [address] Albumin/Globulin [Mass ratio]0.9 {ratio}Low1.1-2.2BLakeHealth Beachwood Medical Center Comment on above:Performed By: #### COMP ####[address], [place] [address]Rpk Phos49 IU/KEinbdb77-65MalhggjdsLutheran HospitalComment on above:Performed By: #### COMP ####[address], [place] [address]HPD [Catalytic activity/Vol]47 U/DYgiagf01-53 [facility] HospitalComment on above:Performed By: #### COMP ####[address], [place] [address]Lescx gap [Moles/Vol]8 mmol/LNormal4-12Luther[facility] HospitalComment on above: Performed By: #### COMP ####[address], [place] [address]FFV [Catalytic activity/Vol]44 U/DKkoa32-41CeqenrntjLutheran HospitalComment on above:Performed By: #### COMP ####[address], [place] [address]Skoo Total0.8 mg/dLNormal 0.3-1.2BLakeHealth Beachwood Medical CenterComment on above:Performed By: #### COMP ####[address], [place] [address]Bjxkiwe [Mass/Vol]8.9 mg/dLNormal8.5-10.3BLakeHealth Beachwood Medical CenterComment on above: Performed By: #### COMP ####[address], [place] [address]Lspwrytp [Moles/Vol]103 mmol/PWptkbi59-944FhfosezsiLutheran HospitalComment on above:Performed By: #### COMP ####[address], [place] [address]HG6 [Moles/Vol]24 mmol/L Tygvqq87-83YdbewzgrvLutheran HospitalComment on above:Performed By: #### COMP ####[address] [place] [address] Creatinine [Mass/Vol]0.87 mg/dLNormal0.44-1.03[facility] Comment on above:Performed By: #### COMP ####[address] [address]Evgdrer [Mass/Vol]171 mg/rWMnmk02-30MwcmhiqvvLutheran HospitalComment on above:Performed By: #### COMP ####[address] [address]Hovebugkg [Moles/Vol]4.1 mmol/LNormal3.4-4.8BLakeHealth Beachwood Medical CenterComment on above:Performed By: #### COMP ####[address] [address] Protein [Mass/Vol]6.4 g/dLLow6.5-8.1BLakeHealth Beachwood Medical CenterComment on above:Performed By: #### COMP ####[address] [address]Uopplm [Moles/Vol]135 mmol/RYxhmga310-232XqbnurpscLutheran HospitalComment on above:Performed By: #### COMP ####[address] [address]Fihf nitrogen [Mass/Vol]30 mg/dL High8-26Lutheran HospitalComment on above:Performed By: #### COMP ####[address] [address]Dqxe nitrogen/Creatinine [Mass ratio]34.5 mg/ahQggf66.0-20.0Lutheran HospitalComment on above:Performed By: #### COMP ####[address] [address]Vouy Autoon 90-45-3141Nwuc Absolute0.0 x10*3/mcLNormal0.0-0.2BLakeHealth Beachwood Medical CenterComment on above:Performed By: #### .Automated Diff ####[address] [address]Ertzstnwl/100 WBC (Bld)0.2 %Normal0.0-1.5BLakeHealth Beachwood Medical CenterComment on above:Performed By: #### .Automated Diff ####[address] [address]Nex Absolute0.0 x10*3/mcL Normal0.0-0.4BLakeHealth Beachwood Medical CenterComment on above:Performed By: #### .Automated Diff ####[address] [address]Cjhchtjngrj/100 WBC (Bld)0.0 %Normal0.0-5.4BLakeHealth Beachwood Medical Center Comment on above:Performed By: #### .Automated Diff ####[address] [address]Lbham Absolute0.8 x10*3/mcLLow 1.0-4.8BLakeHealth Beachwood Medical CenterComment on above:Performed By: #### .Automated Diff ####[address] [address]Jtodoeldvei/100 WBC (Bld)6.6 %Low27.2-40.8BLakeHealth Beachwood Medical Center Comment on above:Performed By: #### .Automated Diff ####[address] [address]Otwi Absolute0.6 x10*3/mcLNormal 0.1-1.1BLakeHealth Beachwood Medical CenterComment on above:Performed By: #### .Automated Diff ####[address] [address]Mficjfwtu/100 WBC (Bld)4.8 %Normal3.7-11.9BLakeHealth Beachwood Medical Center Comment on above:Performed By: #### .Automated Diff ####[address] [address]Uhdgay Rwfbchnj59.3 x10*3/mcLHigh 1.8-7.7BLakeHealth Beachwood Medical CenterComment on above:Performed By: #### .Automated Diff ####[address] [address]Ydvbrk Auto88.4 %High47.2-70.8Bl[facility] Health SystemComment on above:Performed By: #### .Automated Diff ####[facility] [place], [place] [address]Pszlwcyge Clinical Summaryon 06-73-6772Oqwkolfov Clinical SummaryWashington [facility] [address] [place], [place] [id number] [phone] [id number] [phone] Clinical Summary Person Information Name: Robyn [place] Age: 69 Years : 1955 Sex: Female PCP: Jairo Higuera Marital Status: Phone: PCP: Race: White Ethnicity: Not or Language: Cameroonian Visit Id: Visit Reason: Speciality: Acuity: Enc Type: Observation Med Service: Surgery Arrival: 02/10/2025 10:42:53 Discharge: Dispo Type: Address: [facility] [address] [place] [id number] Preferred Communication Mode: Verbal Preferred Language: Cameroonian Discharge Diagnosis: 1:Painful orthopaedic hardware; 2:Ankle impingement [...] range between ( 27.2 and 40.8 ) Marshall Auto: 4.8 % -- Normal range between [...] range between ( 36.0 and 46.0 ) [place] Absolute: 0.6 x10 MCH: 29.7 pg -- [...] Normal range between (more content not included)... NormalLutheran HospitalMagnesiumon 27-79-6260Vtnfpydfd [Mass/Vol] 1.9 mg/dLNormal1.7-2.4BLakeHealth Beachwood Medical CenterComment on above:Performed By: #### MG ####[address] [address] Progress Note-Nurseon 54-15-0427Wrbzvrmo Note-NursePhysical therapy reported to this technical writer the patient was not able to [...] that those are not safe options and rahel garcia continued to insist she has many young, able-bodied men that live close and can help them out at home. Hospitalist and microsoft dynamics ax developer notified of physical therapy recommendations and patient's refusal. Offered to set patient up with home health so that physical therapy can come periodically to help her recover and she stated that her dogs don't like strangers and that she would be fine and does not want it. Electronically signed by Sandhya Bazzi 02/11/25 10:46 EDTNoAvita Health System Bucyrus HospitalProvider Letteron 57-85-1036Ronedaap Letter CARLITOS Hankins [address] [place] [address], [facility] [place] [address] Re: Robyn Garciay Date of Visit: 02/10/2025 Dear Jairo URBINA, [address], [phone] Date: 02/11/2025 12:55:10 Please see attached discharge summary regarding Robyn Thorpe who was seen on 02/10/2025 16:16:43. Please see attached note for further details and please call with any questions or concerns. Sincerely, VIKI Saunders Providers: The following document(s) were included in the letter: February 11, 2025 12:50:52 EDT - (02/11/2025) Discharge SummaryNoAvita Health System Bucyrus HospitalXR OR Ankle Righton 32-19-5109OW OR Ankle Right This report was not [...] Signed, Electronically Signed in Other Vendor System)Normal Luther[facility] HospitalConsultation Note - Genericon 02-10-2025 Consultation Note - GenericChief Complaint RIGHT ANKLE PAIN & INSTABLITY SARAH BETH FOR: RIGHT LOWER EXTREMITY SURGERY Reason for Consultation: Medical Eye Clinic Manager Provider: DILEEP Sage Date of Consult: [...] (02/10/2025) Medications Inpatient acetaminophen, 650 mg, Oral, d0ab-Umaipipc Times albuterol, 180 mcg= 2 puffs, Inhale, [...] Stings (Swelling) Tape ( (more content not included)...[facility] Operative Reporton 18-85-8388Grjcgadey ReportIndication for Surgery Right ankle impingement/painful hardware/peroneal [...] Surgeon(s) Brant Burden DPM (Surgeon - Primary) Supervisor Phosphorus Processing Jonathon Patterson (Table Games Manager) Anesthesia General Rubi ISRAEL, Lenny Mendes (Real Estate Intern) Malik Reed DO (Real Estate Intern) Gregory SILVER-MICA MACHINE OPERATOR, Marianne Parks (Provider) Robinson WASHING TUB OPERATOR-DEPOSITION REPORTER, Lucero Alexandre (Provider) Sima WASHING TUB OPERATOR-DEPOSITION REPORTER, Jen (Provider) Preoperative popliteal/saphenous block Estimated Blood [...] and obturator were int (more content not included)...[facility] TroyProvider Letteron 02-10-2025 Provider Letter CARLITOS Hankins [address] [facility], [place] [address] Re: Robyn Thorpe Date of Visit: 02/10/2025 Dear Jairo URBINA, [facility] [address] [place] [address], [phone] Date: 02/10/2025 15:36:28 Please see attached operative note regarding Robyn Thorpe who was seen on 01/26/2025 16:28:17. Please see attached note for further details and please call with any questions or concerns. Sincerely, VIKI Saunders Providers: The following document(s) were included in the letter: February 10, 2025 15:25:11 EDT - (02/10/2025) Op NoteNormalLutheran Hospital.eGFRon 15-50-1095DFP/1.73 sq M.predicted MDRD (S/P/Bld) [Vol rate/Area] mL/min/{1.73_m2}Normal>=60Lutheran HospitalComment on above:Result Comment: [facility] Laboratories have implemented the eGFR calculation [...] 1 Age = yearsPerformed By: #### EGFR ####[facility] [place] [address]Ntwrv Metabolic Profileon 06-49-3230Eacqf gap [Moles/Vol] 8 mmol/LNormal4-12Lutheran HospitalComment on above:Performed By: #### CD:[id number] ####[address] [address]Qvcnepu [Mass/Vol]8.9 mg/dLNormal8.5-10.3BLakeHealth Beachwood Medical Center Comment on above:Performed By: #### CD:[id number] ####[address] [address]Dgfpqplz [Moles/Vol]105 mmol/L Voiiws05-201MmcodqzuaLutheran HospitalComment on above:Performed By: #### CD:[id number] ####[address] [address]PA3 [Moles/Vol]23 mmol/YCkhbqo79-10GgfaupoaaLutheran HospitalComment on above:Performed By: #### CD:[id number] ####[address] [address]Xbozuxqoxg [Mass/Vol]0.89 mg/dLNormal0.44-1.03 Lutheran HospitalComment on above:Performed By: #### CD:[id number] ####[address] [address]Bbiwmqw [Mass/Vol]102 mg/hVRwxf21-58HcyxejdfqLutheran HospitalComment on above: Performed By: #### CD:[id number] ####[address] [address]Dfvivlvce [Moles/Vol]3.6 mmol/LNormal3.4-4.8BLakeHealth Beachwood Medical CenterComment on above:Performed By: #### CD:[id number] ####[address] [address]Zpnlgi [Moles/Vol]136 mmol/LFzwbxq874-018LxnvlnnxoLutheran HospitalComment on above:Performed By: #### CD:[id number] ####[address] [address]Qgco nitrogen [Mass/Vol]21 mg/dLNormal8-26Lutheran HospitalComment on above:Performed By: #### CD:[id number] ####[address] [address]Prjp nitrogen/Creatinine [Mass ratio]23.6 mg/qsZbub64.0-20.0Lutheran HospitalComment on above:Performed By: #### CD:[id number] ####[address] [address]STH w/ Diffon 02-02-2025 Erythrocyte distribution width (RBC) [Ratio]13.1 %Zpjkua83.6-14.8BLakeHealth Beachwood Medical CenterComment on above:Performed By: #### CBC ####[address] [address]Etyqxxueip (Bld) [Volume fraction]41.0 %Wrlvtf89.0-46.0Lutheran HospitalComment on above: Performed By: #### CBC ####[address] [address]Gntogemahu (Bld) [Mass/Vol]14.3 g/oDKuduyq36.0-16.0 Lutheran HospitalComment on above:Performed By: #### CBC ####[address] [address]BNE (RBC) [Entitic mass]30.4 krWhfubd56.0-35.0Lutheran HospitalComment on above:Performed By: #### CBC ####[address] [address]ASTO63.8 %Svmfou51.0-37.0[facility] Comment on above:Performed By: #### CBC ####[address] [address]CSO (RBC) [Entitic vol]87.4 sEXsdwet00.0-100.0 Lutheran HospitalComment on above:Performed By: #### CBC ####[address] [address]Tzcsmdcq132 x10*3/qaFGghisj977-259FiudscckoLutheran HospitalComment on above:Performed By: #### CBC ####[address] [address]Hucxgwun mean volume (Bld) [Entitic vol]8.9 fLNormal6.7-10.6BSelect Medical OhioHealth Rehabilitation Hospital SystemComment on above:Performed By: #### CBC ####[address] [address]PKG4.69 x10*6/mcLNormal3.80-5.20 Lutheran HospitalComment on above:Performed By: #### CBC ####[address] [address]YXB9.5 x10*3/mcLNormal4.5-11.0Lutheran HospitalComment on above:Performed By: #### CBC ####[address] [address]Ikhd Autoon 46-21-5994Vhcj Absolute0.0 x10*3/mcLNormal0.0-0.2BLakeHealth Beachwood Medical CenterComment on above:Performed By: #### .Automated Diff ####[address] [address] Basophils/100 WBC (Bld)0.8 %Normal0.0-1.5BLakeHealth Beachwood Medical CenterComment on above:Performed By: #### .Automated Diff ####[address] [address]Xao Absolute0.2 x10*3/mcLNormal0.0-0.4 Lutheran HospitalComment on above:Performed By: #### .Automated Diff ####[address] [address] Eosinophils/100 WBC (Bld)3.5 %Normal0.0-5.4BLakeHealth Beachwood Medical CenterComment on above:Performed By: #### .Automated Diff ####[address] [address]Unobm Absolute1.4 x10*3/mcLNormal1.0-4.8 [facility] SystemComment on above:Performed By: #### .Automated Diff ####[address] [address] Lymphocytes/100 WBC (Bld)25.8 %Low27.2-40.8BSelect Medical OhioHealth Rehabilitation Hospital SystemComment on above:Performed By: #### .Automated Diff ####[address] [address]Boxc Absolute0.6 x10*3/mcLNormal0.1-1.1 [facility] SystemComment on above:Performed By: #### .Automated Diff ####[address] [address] Monocytes/100 WBC (Bld)10.7 %Normal3.7-11.9BSelect Medical OhioHealth Rehabilitation Hospital SystemComment on above:Performed By: #### .Automated Diff ####[address] [address]Pqgulg Absolute3.3 x10*3/mcLNormal1.8-7.7 [facility] SystemComment on above:Performed By: #### .Automated Diff ####[address] [address]Noknrm Auto59.2 %Xjnmqe70.2-70.8BSelect Medical OhioHealth Rehabilitation Hospital SystemComment on above: Performed By: #### .Automated Diff ####[address] [address]DO helen perf SPECT rest stron 15-11-3391JX helen perf SPECT rest [facility] Main [address] [address] Nuclear Medicine Report Signed Patient: Robyn Thorpe MR#: [id number] : 1955 Acct:[id number] Age/Sex: 69 / F ADM Date: 01/21/25 Loc: EL Room: Type: [facility] CLI Attending Dr: Hay Rea MD [...] Chantale Cardona M.D.01/24/2025 3:34 PM Dictation Location: [place] [address] Transcribed By: NADIA 01/24/25 1534 Dictated By: Chantale Cardona MD 01/24/25 1533 Signed By: 01/24/25 [facility] Physician GroupNo Panel InformationOrdered By: Hay Rea on 32-41-6810DTMCXALVVTUSCARAWAS [place] [address] Cardiac Stress Test Signed Patient: Robyn Thorpe MR#: [id number] : 1955 Date of Service:0 01/21/25 Age/Sex: 69 / F ADM Date: 5 Loc: EL Room: Type: [facility] CLI Attending Dr: Hay Rea MD [...] MD 01/21/25 1026 Signed By: 01/21/25 1028 [facility] Work Phone: XR Ankle 2 Views Righton 84-50-0969KW Ankle 2 Views Right2 weightbearing views right [...] Signed, Electronically Signed in Other Vendor System)Normal Lutheran HospitalXR Calcaneous Righton 92-87-7421ZI Calcaneous RightLateral and calcaneal axial views demonstrate: [...] Signed, Electronically Signed in Other Vendor System)Normal Lutheran HospitalXR Foot 2 Views Righton 00-77-4172SQ Foot 2 Views Right2 views right foot [...] Signed, Electronically Signed in Other Vendor System)Normal Lutheran HospitalFPG ECG *CARDIOLOGY ONLY*on 00-87-6610BFG ECG *CARDIOLOGY ONLY*[facility] Main [place] [address] [place] [address] Electrocardiograph Report Signed Patient: Robyn Thorpe MR#: [id number] : 1955 Acct:[id number] Age/Sex: 69 / F ADM Date: 12/15/24 [...] previous ECGs available Confirmed by Hay Rea ([id number]) on 12/17/2024 8:54:47 AM Referred By: Electronically Signed By: Hay Rea Transcribed By: MUS Signed By Hay Rea MD 12/17/24 0854New Prague HospitalAmphetamine Screen Ql (U)Ordered By: Imad Asaad on 08-63-5975Tujibbbyplch Ql (U)NegativeNegUC West [place] HospitalBarbiturates [Presence] in Urine by Screen methodOrdered By: Imad Asaad on 49-52-0815Ylqdldffwegl Screen Ql (U)NegativeNegUC West [place] HospitalBenzodiazepines Screen Ql (U)Ordered By: Imad Asaad on 16-36-2791Iiqplqztsxgfxsf Ql (U)NegativeNegUC West [place] HospitalBenzoylecgonine [Presence] in Urine by Screen methodOrdered By: Imad Asaad on 92-16-9212Rmeoeinzkiklgpb Screen Ql (U)NegativeNegUC West Chester HospitalCannabinoids [Presence] in Urine by Screen methodOrdered By: Imad Asaad on 20-07-5386Wagwjlmjymyu Screen Ql (U)PositiveHighNegUC West Chester HospitalComment on above:These are unconfirmed results and should not be used for legal purposes. Drug Cut-Off Concentration: AMPH 1000 ng/mL JAMES 200 ng/mL TERESSA 200 ng/mL COCM 300 ng/mL OP 300 ng/mL PCP 25 ng/mL THC 20 ng/mLDrug Screen,Urineon 99-51-0569Jhzobkusbtx Screen,UrineNegativeNormal NegativeOcean Springs HospitalComment on above:Performed By: #### URDS #### [facility] [address] [place] [address] USABarbiturate Screen,UrineNegativeNormalNegativeSaint Joseph'S Hospital GroupComment on above:Performed By: #### URDS #### [facility] [address] [place] [address] USABenzodiazepines Screen,UrineNegativeNormalNegativeSaint Joseph'S Hospital GroupComment on above:Performed By: #### URDS #### [place] [address] USACannabinoid Screen,UrinePositiveHighNegativeNortheast Florida State Hospital Physician GroupComment on above:Result Comment: These are unconfirmed results and should not be used for legal purposes. Drug Cut-Off Concentration: AMPH 1000 ng/mL JAMES 200 ng/mL TERESSA 200 ng/mL COCM 300 ng/mL OP 300 ng/mL PCP 25 ng/mL THC 20 ng/mL PERFORMED BY: [place] [address] PATHOLOGIST COPY CHIEF FREDERIC CHRISTINA M.D.Performed By: #### URDS #### [place] [address] USACocaine Screen,UrineNegativeNormalNegativeNortheast Florida State Hospital Physician [facility] CenterComment on above:Performed By: #### URDS #### [place] [address] USAOpiate Screen,UrineNegativeNormalNegativeNortheast Florida State Hospital Physician GroupComment on above:Performed By: #### URDS #### [place] [address] USAPhencyclidine Screen,UrineNegativeNormalNegativeNortheast Florida State Hospital Physician [facility] Medical CenterComment on above:Performed By: #### URDS #### [place] [address] USAOpiates [Presence] in Urine by Screen methodOrdered By: Imflo Asaad on 21-78-8868Xvixvqf Screen Ql (U)NegativeNegativeAvita Health System Ontario HospitalPathology Request for Lab Corpon 82-75-2794Xmtszizmu Request for Lab CorpNormHCA Florida Osceola Hospital Physician GroupComment on above:Order Comment: PATHOLOGY GI SPECIMENResult Comment: See report. Scanned copy available in EMR. PERFORMED BY: [place] [address] PATHOLOGIST COPY CHIEF FREDERIC CHRISTINA M.D.Performed By: #### PATH TO [facility] #### [place] [address] USAPhencyclidine Screen Ql (U)Ordered By: Wanda Hagan on 68-70-7776Rtgdmlfildyml Ql (U)NegativeNegativeAvita Health System Ontario Hospital BUN & Creatinineon 15-41-4497Eqbaxldeau [Mass/Vol]0.8 mg/dL0.50 - 0.90 mg/dLBON UNIVERSITY HOSPITALS HEALTH SYSTEMEst, Solitario Warren Rate84- PINFBON UNIVERSITY HOSPITALS HEALTH SYSTEMComment on above: These results are not intended [...] tubular secretion. Interpretation and review of laboratory resultsAbJohn Randolph Medical Center Urea nitrogen [Mass/Vol]24 mg/dLHigh8 - 23 mg/dLBON [facility]36on 02-92-273146Rr informed, she told me she will be looking for new heart doctor as she is not happy with us.NormalSelect Medical OhioHealth Rehabilitation Hospital - DublinHCV Ab [place] Qlon 12-11-2023 Interpretation and review of laboratory resultsAbnoVernon Memorial HospitalANTI HCV W/PCR REFLXReactiveAbnormalNRCTProOhio State Health System on above:Result Comment: Supplemental testing for HCV RNA by PCR has been ordered per CDC recommendations. Soiahx-vd-omgyic ratio is >=1.00.Performed By: #### THYR, 41233-1 #### [facility] ([id number]) [address] [place], [place] [address]TYG RNA PAULY+probe Qnon 31-09-0797TZZ RNA QUANT [id number] IU/mL AbnormalUndetectedAshtabula General Hospital on above:Result Comment: NOTE Result in log IU/mL is 7.28. ADDITIONAL INFORMATION The quantification range of this assay is 15 to 100,000,000 IU/mL (1.18 log to 8.00 log IU/mL). Testing was performed using the diomedes HCV test ([employer] Test Performed by: [facility] [address] [place] [address] Duco Polisher: Raj Bhatti M.D. Ph.D.; CLIA# [id number] By: #### THYR, 52868-3 #### [facility] ([id number]) [address] [place] [address], [address] [address]Iebjzxqli C(HCV) Ab w/ Reflex to PCRon 56-85-8237PWQ Ab [place] Ql ReactiveAbnormalNon-Reactive^Non-ReactiveProTwin City HospitalComment on above: Supplemental testing for HCV RNA by PCR has been ordered per CDC recommendations. Exmcsc-fx-bfytoc ratio is >=1.00. THYROID PROFILEon 04-85-5587Nwvs T4 [Mass/Vol]1.29 ng/dLNormal0.61-1.60Tog[facility] VA Medical CenterComment on above:Performed By: #### THYR, 40194-0 #### [facility] ([id number]) [address] [place] [address], [address] [address]XGU1.45 uIU/mLLow0.49-4.67Kindred Hospital DaytonComment on above:Performed By: #### THYR, 51368-6 #### [facility] ([id number]) [address] [place] [address], [address] [address]Nvptybf profile includes TSH FT4on 59-77-8866Ofoxaewvwsrdfk and review of laboratory resultsAbnormalTogus VA Medical CenterTS Qn0.45 m[IU]/LLow Forbes HospitalOffice Visiton 35-72-7954Xumsol-up [id number] Robyn Thorpe 1955 F Date Provider Department Center 11/17/2023 Julisa-PRANAV TRINIDAD GEE Alejandro Family History Problem Relation Age of Onset Diabetes Mother Coronary artery disease Mother Hypertension Mother Coronary artery disease Father Hypertension Father Other Father Coronary artery disease Brother Family Status - Relation Status Age at Mother Father Brother Level of Service:53599 SD OFFICE/OUTPATIENT ESTABLISHED LOW MDM 20 [facility] CenterOrders Onlyon 21-27-9668Gpvuyw [id number] Robyn Thorpe 1955 F Date Provider Department Center 11/17/2023 PAT BAL GEE [facility] Family History Problem Relation Age of Onset Diabetes Mother Coronary artery disease Mother Hypertension Mother Coronary artery disease Father Hypertension Father Other Father Coronary artery disease Brother Family Status - Relation Status Age at Mother Father BrotherNoSt. Elizabeth Hospital36on 22-41-632313Npmzsmz stopped by the office today c/o cough with lisinopril. Can we switch her to losartan?[facility]HealthOrders Onlyon 06-25-2023 Orders [id number] Robyn Thorpe 1955 F Date Provider Department Center 06/25/2023 VERONICA BELLO [facility] Family History Problem Relation Age of Onset Diabetes Mother Coronary artery disease Mother Hypertension Mother Coronary artery disease Father Hypertension Father Other Father Coronary artery disease Brother Family Status - Relation Status Age at Mother Father BrotherOhioHealthBasic Metabolic Panelon 61-60-2077Vdydr gap [Moles/Vol]8 mmol/LLow9 - 17 mmol/LBON SECContraVir Pharmaceuticals Calcium [Mass/Vol]9.4 mg/dL8.6 - 10.4 mg/dLBON SECSchool Places HEALTHChloride [Moles/Vol]108 mmol/LHigh98 - 107 mmol/LBON SECSchool Places HEALTHCO2 [Moles/Vol] 25 mmol/L20 - 31 mmol/LBON SECContraVir PharmaceuticalsCreatinine [Mass/Vol]0.68 mg/dL 0.50 - 0.90 mg/dLBON SECContraVir PharmaceuticalsGFR/1.73 sq M.predicted MDRD (S/P/Bld) [Vol rate/Area]- PINFBON SOUT[facility]AST ARIZONA MEDICAL CENTERContraVir PharmaceuticalsComment on above: These results are not intended [...] that affects renal tubular secretion. Glucose [Mass/Vol]109 mg/wTMpai91 - 99 mg/dLBON RECUPYL Interpretation and review of laboratory resultsAbnormalBON SECOURS [facility] HEALTH SYSTEMRivalHealth HEALTH Potassium [Moles/Vol]3.6 mmol/LLow3.7 - 5.3 mmol/LBON SECOURS MERCY HEALTHSodium [Moles/Vol]141 mmol/L135 - 144 mmol/LBON SECOURS [facility] HEALTH SYSTEMGlydeUrea nitrogen [Mass/Vol]20 mg/dL8 - 23 mg/dLBON SECOURS MFG.comUrea nitrogen/Creatinine (Bld) [Mass ratio]59Bfna5 - 20BON SECOURS [facility] HEALTH SYSTEMY MERCY MEMORIAL HOSPITALBON SECOURS [facility] VALLEY HEALTH SYSTEMRivalHealth HEALTH CBC with Auto Differentialon 67-45-9389Juikcset Eos #0.20BON SECOURS [facility] Accudial PharmaceuticalAbsolute Immature Granulocyte0.03BON [facility] HEALTHAbsolute Lymph # 1.05LowBON SECOURS MERCY Accudial PharmaceuticalAbsolute Marshall #0.78BON SECOURS MERCRivalHealth HEALTH Basophils (Bld) [#/Vol]0.04 10*3/uLBON SECOURS MFG.comBasophils/100 WBC (Bld)1 %0 - 2 %B[facility] Accudial PharmaceuticalEosinophils/100 WBC (Bld)3 %1 - 4 %BON SECOURS MERCGlydeHematocrit (Bld) [Volume fraction]43.3 %36.3 - 47.1 %BON SECOURS MFG.comHemoglobin (Bld) [Mass/Vol]14.3 g/dL11.9 - 15.1 g/dLBON SECOURS MERCGlydeImmature granulocytes/100 WBC (Bld)1 %Ktvb7QKE SECOURS [employer] HEALTHInterpretation and review of laboratory resultsAbnormalBON SECEmerus Hospital PartnersY Accudial PharmaceuticalLymphocytes/100 WBC (Bld)16 %Low24 - 43 %BON SECOURS MFG.comMCH (RBC) [Entitic mass]28.9 pg25.2 - 33.5 pgBON SECOURS BLANCHARD VALLEY HEALTH SYSTEMY HEALTHMCHC (RBC) [Mass/Vol]33.0 g/dL28.4 - 34.8 g/dLBON SECOURS MERCY HEALTHMCV (RBC) [Entitic vol]87.5 fL82.6 - 102.9 fLBON SECOURS MERCY HEALTHMonocytes/100 WBC (Bld)12 %3 - 12 %B[facility] HEALTHNRBC Automated0.00.0 per 100 WBCBON SECOURS MERCY HEALTHPlatelet distribution width (Bld) [Ratio]13.2 %11.8 - 14.4 %B[facility]CY HEALTHPlatelet mean volume (Bld) [Entitic vol]10.9 fL8.1 - 13.5 fLBON SECOURS MERCY HEALTHPlatelets (Bld) [#/Vol]227 10*3/uLBON SECOURS [facility] HEALTH RBC (Bld) [#/Vol]4.95 10*6/uL3.95 - 5.11 m/uLBON SECLAKE CHARLES MEMORIAL HOSPITAL HEALTHSegmented neutrophils/100 WBC (Bld)67 %High36 - 65 %BON SEC[facility] BL[facility] HEALTH SYSTEMY HEALTHSegs Absolute 4.37BON [facility] MERCY HEALTHWBC (Bld) [#/Vol]6.5 10*3/uLBON SECOURS [facility] HEALTH BON SECOURS BLAN[facility] VALLEY HEALTH SYSTEMY HEALTHEKG 12 LeadOrdered By: Yanelis Quezada on 77-71-1686Tznnoe Lcve05DNOBPP SECVerengo Solar [facility] HE[facility] SYSTEMRivalHealth HEALTH Work Phone: P Bfmy79sjlxhgpSYQ [facility]ALTH Work Phone: P-R Dcsbkzsy561 msBON SECOURS [facility]CY HEALTH Work Phone: Q-T Qttfpawa604 msBON [facility]RS [facility]CY [facility]ALTH Work Phone: QRS Qfnoweyd331 msBON [facility]RS [facility]CY HEALTH Work Phone: QTc Calculation (Stephan)495 msBON [facility]RS [facility]CY HEALTH Work Phone: R Liru9tzekasaRHD SECEmerus Hospital PartnersY HEALTH Work Phone: T Efoy59kmkmbmpNJB SECEmerus Hospital PartnersY HEALTH Work Phone: Ventricular Ynon94AGGJAX RECUPYL Work Phone: BON [employer] Phone: EKG 12 Leadon 53-93-6503Kiahce sinus rhythm Right bundle branch block Abnormal ECG No previous ECGs available Confirmed by YANELIS QUEZADA ([id number]) on 01/03/2023 11:52:02 [facility]THE [facility] RAD[facility] Yanelis Quezada MD - 01/03/2023 Normal sinus rhythm Right bundle branch block Abnormal ECG No previous ECGs available Confirmed by YANELIS QUEZADA ([id number]) on 01/03/2023 11:52:02 PM [facility] [employer] Phone: bUN & Creatinineon 32-14-3963Uyezebbfja [Mass/Vol]0.78 mg/dL0.50 - 0.90 mg/dLBON RECUPYLGFR/1.73 sq M.predicted MDRD (S/P/Bld) [Vol rate/Area]- PINFBON RECUPYLComment on above: These results are not intended [...] Urea nitrogen [Mass/Vol]22 mg/dL8 - 23 mg/dLBON Cognition TherapeuticsCT UROGRAMon . Bilateral nonobstructing nephroliths larger on the right side of 6.5 mm. No ureteric obstruction. 2. Mild hepatic steatosis. Granulomas in liver and spleen. 3. Atherosclerotic disease. 4. Postsurgical changes lower lumbar spine. Other findings as above. [facility] RIS CONSOLIDATEDEXAMINATION: CT UROGRAM 12/26/2022 1:23 pm TECHNIQUE: [...] acute osseous or subcutaneous soft tissue abnormality. [facility] Katelyn Álvarez MD - 12/26/2022 EXAMINATION: CT [...] lower lumbar spine. Other findings as above. [employer] Work Phone: radiology Study observation (narrative)[employer] Phone: ct UROGRAMOrdered By: Katelyn Aceves on 41-67-2772MTG [employer] Phone: Urinalysis with Microscopicon 68-77-2786Lzigfijx, UA2+ AbnormalNoneBON RECUPYLBilirubin UrineNegativeNEGATIVEMOUNTAIN VISTA MEDICAL CENTER RECUPYLColor, UAYellowYellowMOUNTAIN VISTA MEDICAL CENTER RECUPYLEpithelial Cells UA2 TO 5BON RECUPYLGlucose Auto test strip (U) [Mass/Vol]NegativeNEGATIVE BravoflyInterpretation and review of laboratory resultsAbnormal [facility] [employer] HEALTHKetones (U) [Mass/Vol]TRACEAbnormalNEGATIVEMOUNTAIN VISTA MEDICAL CENTER RECUPYLLeukocyte esterase Auto test strip Ql (U)NegativeNEGATIVEMOUNTAIN VISTA MEDICAL CENTER [employer] HEALTHMucus, UA1+AbnormalNoneBON RECUPYLNitrite Auto test strip Ql (U)NegativeNEGATIVEMOUNTAIN VISTA MEDICAL CENTER [employer] HEALTHProtein (U) [Mass/Vol]6.0 mg/dL5.0 - 9.0BON [employer] HEALTHProtein (U) [Mass/Vol]1+AbnormalNEGATIVE [facility] RECUPYLRBC clumps Auto (Urine sed) [#/Area]5 TO 10BON [facility] HEALTH SYSTEMSpecific [place], UA1.466Jggb0.010 - 1.020BON SECMERCY [facility] ST[facility] Turbidity UAClearClearBON SECMERCY HEALTH ST. ELIZABETH YOUNGSTOWN HOSPITALUrine HgbTRACEAbnormalNEGATIVEBON SECMERCY HEALTH ST. ELIZABETH YOUNGSTOWN HOSPITALUrobilinogen, UrineNormalNormalBON SECMERCY HEALTH ST. ELIZABETH YOUNGSTOWN HOSPITALWBC, UA0 TO 2BON SEC[address] ELIZABETH YOUNGSTOWN HOSPITALBON SECMERCY HEALTH ST. ELIZABETH YOUNGSTOWN HOSPITALXR RIBS LT PA Sophia 42-57-6386WP RIBS LT PA CHEXAM: XR RIBS LT PA CH HISTORY: Rib pain COMPARISON: 05/28/2022 TECHNIQUE: Four views of the left ribs. FINDINGS: No rib fracture indentified. The lungs are clear. IMPRESSION: 1. No acute rib fracture identified. Electronically authenticated by: JANEEN POOLE Date: 2022-12-03 10:28[facility] Shelby HospitalMRI BRAIN WO W CONon 94-86-5501XCG BRAIN WO W CONEXAMINATION: MRI BRAIN WO [...] on chronic sinusitis. Electronically authenticated by: YANELIS ENEGL Date: 2022-10-22 13:55[facility] Shelby HospitalCREATININEon 96-05-5378Kebwxefdfw [Mass/Vol]0.94 mg/dLNormal 0.55-1.02Barnesville HospitalComment on above:Performed By: #### CREA ####[facility] [address] [place], [place] [address]Qc. Yilan ChangEGFR-AF ARMENIAN>60Normal>=60The [facility] Medical CenterComment on above: Performed By: #### CREA ####[facility] [address] [place], [place] [address]Pk. Yilan ChangEGFR-NON AF ARMENIAN=60Normal>=60The [facility] Medical CenterComment on above:Performed By: #### CREA ####[facility] [address] [place] [address]Dr. Yilan ChangMG MAMM SCREEN 3D NICKOLAS CADon 47-20-7005MS MAMM SCREEN 3D NICKOLAS CADPatient: ROBYN THORPE Exam Date: 08/13/2022 : 1955 Gender:F Ordering : JAIRO DALEY Admission #: [id number] Family : Order #: [id number] CLICK HERE TO VIEW EXAM RADIOLOGY REPORT [...] at age 65. LOCATION: [facility] BREAST COMPOSITION: Scattered areas fibroglandular [...] by: Xavier Hollingsworth MD on 08/14/2022 at 07:58NoLakeHealth Beachwood Medical CenterXR DEXA BONE DENSITYon 73-40-1261RG DEXA BONE DENSITYEXAMINATION: XR DEXA BONE DENSITY, [...] Electronically authenticated by: YANELIS ENGEL Date: 2022-08-13 16:[address] [place] [address] ABD/PELVIS WO CONon 27-07-5628JZ ABD/PELVIS WO CON EXAMINATION: CT ABD/PELVIS WO [...] Electronically authenticated by: YANELIS ENGEL Date: 2022-08-07 18:50NormMetroHealth Parma Medical CenterECHOCARDIO M/2D COMPLETEon 52-07-5497ZHBXVKJKJP M/2D COMPLETE Patient: ROBYN THORPE Exam Date: 06/26/2022 : 1955 Gender:F Ordering : DR PRANAV TRINIDAD M.D. Admission #: [id number] Family : JAIRO DALEY Order #: [id number] CLICK HERE TO VIEW EXAM ECHOCARDIOGRAM REPORT [...] by: Hay Vargas M.D. on 06/26/2022 at 18:22Ohio[facility] Shelby HospitalAMYLASEon 13-71-5785Lnrucwh [Catalytic activity/Vol]48 U/HZxjpyt97-015 Barnesville HospitalComment on above:Performed By: #### CMP, YASH, LIPA ####[facility] [address] [place], [place] [address]Dr. Yilan ChangCBC AUTO DIFFon 71-20-1929AOTX #0.0 103/ulNormal0.0-0.1Barn[facility]ville HospitalComment on above:Performed By: #### CBC ####[facility] [address] [place], [place] [address]Dr.Yilan ChangBasophils/100 WBC (Bld)0.5 %Normal0.2-2.0Barn[facility]ville HospitalComment on above:Performed By: #### CBC ####[facility] [address] [place], [place] [address]Dr.Yilan ChangEO #0.2 103/ulNormal0.0-0.7The [facility] Medical CenterComment on above:Performed By: #### CBC ####[facility] [address] [place], [place] [address]Dr.Yilan ChangEosinophils/100 WBC (Bld)2.4 %Normal 0.9-7.0The [facility] Medical CenterComment on above:Performed By: #### CBC ####[facility] [address] [place], [place] [address]Dr.Tapan Gordon Erythrocyte distribution width (RBC) [Ratio]13.0 %Yvbbal28.0-15.0The [facility] Medical CenterComment on above:Performed By: #### CBC ####[facility] Kehvbprdws[address] [place], [place] [address]Dr.Tapan GordonHematocrit (Bld) [Volume fraction]43.6 %Lrqqux28.0-48.0The [facility] CenterComment on above:Performed By: #### CBC ####[facility] Adazxnupbi[address] [place], [place] [address]Dr.Tapan GordonHemoglobin (Bld) [Mass/Vol]14.6 g/dL Zednef52.0-16.0The [facility] CenterComment on above:Performed By: #### CBC ####[facility] Mispvnydry[address] [place], [place] [address]Dr. Yilan ChangIG #0.02 10e3/ulNormal0.00-0.03The [facility] CenterComment on above: Performed By: #### CBC ####[facility] Gcynwrfrct[address] [place], [place] [address]Dr.Tapan ChangIG %0.3 %Normal0.0-0.5The [facility] CenterComment on above:Performed By: #### CBC ####[facility] Dbxxzmzpgs7[address] [place], [place] [address]Dr.Tapan ChangLYMPH #1.5 103/ulNormal1.2-3.8The [facility] CenterComment on above:Performed By: #### CBC ####[facility] Hzqxtynqmk[address] [place], [place] [address]Dr. Tapan GordonLymphocytes/100 WBC (Bld)23.4 %Plsyog83.5-60.0The [facility] Comment on above:Performed By: #### CBC ####[facility] Bxfnhccspz[address] [place], [place] [address]Dr.Malikalan EvanMANUAL DIFF REQNONormalThe [facility] CenterComment on above:Performed By: #### CBC ####[facility] [address] [place] [address]Dr.Tapan EvanH (RBC) [Entitic mass]29.5 udGnppbw10.7-34.0The [facility] CenterComment on above: Performed By: #### CBC ####[facility] Pfukzhan[address] [place], [place] [address]Dr.Tapan EvanHC (RBC) [Mass/Vol]33.5 g/dLNormal 29.9-35.2The [facility] CenterComment on above:Performed By: #### CBC ####[facility] Qkljipjcuj[address] [place], [place] [address]Dr. Malikapalma GordonV (RBC) [Entitic vol]88.1 qLJbvzqc37.0-99.0The [facility] Comment on above:Performed By: #### CBC ####[facility] Bxsklwuxdf[address] [place], [place] [address]Dr.Tapan GordonMONO #0.6 103/ulNormal0.3-0.8 The [facility] CenterComment on above:Performed By: #### CBC ####[facility] Zmrgqvrxfr[address] [place], [place] [address]Dr.Malikapalma Gordon Monocytes/100 WBC (Bld)9.8 %Normal1.7-12.0The [facility] CenterComment on above: Performed By: #### CBC ####[facility] Gttgsftfze[address] [place], [place] [address]Dr.Malikapalma EvanNEUT #4.0 103/ulNormal1.4-6.5The [facility] CenterComment on above:Performed By: #### CBC ####[facility] Gkwjrnig[address] [place], [place] [address]Dr.Malikapalma GordonNeutrophils/100 WBC (Bld)63.6 %Quqppu05.0-75.0The [facility] CenterComment on above:Performed By: #### CBC ####[facility] Xwgngspnvv[address] [place], [place] [address]Dr.Tapan GordonPlatelet mean volume (Bld) [Entitic vol]10.3 fLNormal9.5-13.5 The [facility] CenterComment on above:Performed By: #### CBC ####[facility] [address] [place], [place] [address]Gi.Tapan GordonPLT258 103/frQqwizm959-575Ihr [facility] CenterComtr[facility] on above:Performed By: #### CBC ####[facility] T[address] [place], [place] [address]Yc. Tapan GordonRBC4.95 106/ulNormal4.20-5.40The [facility] CenterComment on above: Performed By: #### CBC ####[facility] [address] [place], [place] [address]Pn.Tapan GordonWBC6.3 103/ulNormal4.0-11.0The [facility] CenterComment on above:Performed By: #### CBC ####[facility] Tr[address] [place], [place] [address]Vq.Tapan GordonCT ABD/PELVIS WO CONon [id number] ABD/PELVIS WO CONEXAMINATION: CT ABD/PELVIS WO CON, [...] Electronically authenticated by: BRAULIO LASSITER Date: 2022-06-19 10:13[facility] URINE PROFILEon [id number] Ql (U)NegativeNormal NEGATIVEBarnesville HospitalComment on above:Performed By: #### GIBSON, ERUR #### [facility] Laboratory [address] [address] [address] Tapan Rosarioarity (U)CLEARNormalCLEARBarnesville HospitalComment on above: Performed By: #### GIBSON, ERUR #### [facility] [address] [address] [address] Tapan Alcantar (U)LT. YELLOWNormalYELLOWBarnesville HospitalComment on above:Performed By: #### GIBSON, ERUR #### [facility] [address] [address] [address] Tapan Mota micrscopic examination will be performed if indicated. NormalBarnesville HospitalComment on above:Performed By: #### GIBSON, ERUR #### [facility] [address] [address] [address] Tapan GordonGlucose Ql (U)NegativeNormalNEGATIVEBarnesville HospitalComment on above:Performed By: #### GIBSON, ERUR #### [facility] [address] [address] [address] Tapan GordonHemoglobin Ql (U)LARGEAbnormalNEGATIVEBarnesville Hospital Comment on above:Performed By: #### GIBSON, ERUR #### [facility] [address] [address] [address] Tapan GordonKetones Ql (U)NegativeNormalNEGATIVEBarnesville HospitalComment on above:Performed By: #### GIBSON, ERUR #### [facility] [address] [address] [address] Tapan GordonLEUKOCYTESNegativeNormalNEGATIVEBarnesville HospitalComment on above:Performed By: #### LIZABETH ARREAGAR #### [facility] [address] [address] [address] Tapan Coellotrite Ql (U)NegativeNormalNEGATIVEThe [facility] CenterComment on above:Performed By: #### LIZABETH ARREAGAR #### [facility] [address] [address] [address] Tapan GordonpH (U)7.0 [pH]Normal5-9The [facility] CenterComment on above: Performed By: #### BOONE ARREAGA #### [facility] [address] [place] [address] Dr. Tapan GordonSPEC GRAVITY1.494Nzehjn7.005-<=1.025The [facility] CenterComment on above:Performed By: #### LIZABETH ARREAGAR #### [facility] [address] [place] [address] Dr. Tapan Duckworth PROTEINTRACENormalNEGATIVE/ TRACEThe [facility] CenterComment on above:Performed By: #### BOONE ARREAGA #### [facility] [address] [place] [address] Dr. Tapan Rolle MICRO INDINDICATEDNormalThe [facility] CenterComment on above: Performed By: #### BOONE ARREAGA #### [facility] [address] [place] [address] Dr. Tapan Mcmahanbilinogen Qn (U)2.0 {Aleida'U}/dLAbnormal0.2 - 1.0The [facility] CenterComment on above:Performed By: #### LIZABETH ARREAGAR #### [facility] [address] [place] [address] Dr. Tapan GordonLIPASEon [id number] [Catalytic activity/Vol]182.0 U/LNormal 73.0-393.0The [facility] CenterComment on above:Performed By: #### CMP, YASH, LIPA ####[facility] [address] [address]Dr. Yilan ChangOCC BLD IMMUNO SCREENon [id number] BLOODNegativeNormal NEGATIVEThe [facility] CenterComment on above:Performed By: #### OBSCRN ####[facility] [address] [place] [address]Dr. Yilan ChangPROF 14(COMP METB)on [id number] [Mass/Vol]3.5 g/dLNormal 3.4-5.0The [facility] CenterComment on above:Performed By: #### CMP, YASH, LIPA ####[facility] [address] [place] [address]Dr. Malikalan ChangAlbumin/Globulin [Mass ratio]1.0 {ratio}NormalThe [facility] Comment on above:Performed By: #### CMP, YASH, LIPA ####[facility] [address] [address]Dr. Malikalan ChangALP [Catalytic activity/Vol]76 U/NOtrrjw64-565Cva [facility] CenterComment on above:Performed By: #### CMP, YASH, LIPA ####[facility] [address] [place] [address]Dr. Yilan ChangALT [Catalytic activity/Vol]64 U/L Critically inwe16-98Srn [facility] CenterComment on above:Performed By: #### CMP, YASH, LIPA ####[facility] [address] [place] [address]Dr. Yilan ChangAnion gap [Moles/Vol]11.2 mmol/LNormalThe [facility] CenterComment on above:Performed By: #### CMP, YASH, LIPA ####[facility] [address] [place] [address]Dr. Yilan ChangAST [Catalytic activity/Vol]38 U/LCritically yart40-37Kmy [facility] CenterComment on above:Performed By: #### CMP, YASH, LIPA ####[facility] [address] [place], [place] [address]Dr. Yilan ChangBilirubin [Mass/Vol]0.7 mg/dL Normal0.2-1.0The [facility] CenterComment on above:Performed By: #### CMP, YASH, LIPA ####[facility] [address] [place] [address]Dr. Yilan ChangCalcium [Mass/Vol]8.7 mg/dLNormal8.5-10.1The [facility] CenterComment on above:Performed By: #### CMP, YASH, LIPA ####[facility] [address] [place] [address]Dr. Yilan ChangChloride [Moles/Vol]104 mmol/MDjupfl63-459Jga [facility] CenterComment on above:Performed By: #### CMP, YASH, LIPA ####[facility] [address] [place] [address]Dr. Yilan ChangCO2 [Moles/Vol]29.6 mmol/LNormal 21.0-32.0The [facility] CenterComment on above:Performed By: #### CMP, YASH, LIPA ####[facility] [address] [place] [address]Dr. Yilan ChangCreatinine [Mass/Vol]0.85 mg/dLNormal0.55-1.02The [facility] Comment on above:Performed By: #### CMP, YASH, LIPA ####[facility] [address] [place] [address]Dr. Yilan ChangEGFR-AF ARMENIAN>60Normal>=60The [facility] CenterComment on above:Performed By: #### CMP, YASH, LIPA ####[facility] Rvrjyuxirk[address] [place], [place] [address]Dr. Yilan ChangEGFR-NON AF ARMENIAN>60Normal>=60The [facility] Comment on above:Performed By: #### CMP, YASH, LIPA ####[facility] [address]vupndpd[address] [place], [place] [address]Dr. Yilan ChangGlobulin (S) [Mass/Vol]3.6 g/dLNormalThe [facility] CenterComment on above:Performed By: #### CMP, YASH, LIPA ####[facility] [address] [place] [address]Dr. Yilan ChangGlucose [Mass/Vol]125 mg/dLCritically obui37-032Byy [facility] CenterComtr[facility] on above:Performed By: #### CMP, YASH, LIPA ####[facility] [address] [place] [address]Dr. Yilan Gordon Potassium [Moles/Vol]3.8 mmol/LNormal3.5-5.1The [facility] CenterComment on above:Performed By: #### CMP, YASH, LIPA ####[facility] [address] [place] [address]Dr. Yilan ChangProtein [Mass/Vol]7.1 g/dL Normal6.4-8.2The [facility] CenterComment on above:Performed By: #### CMP, YASH, LIPA ####[facility] Fifgy[address]aai[address] [place], [place] [address]Dr. Yilan ChangSodium [Moles/Vol]141 mmol/XPijnfd579-985Dut [facility] on above:Performed By: #### CMP, YASH, LIPA ####[facility] [address] [place] [address]Dr. Yilan ChangUrea nitrogen [Mass/Vol]22.0 mg/dLCritically high7.0-18.0The [facility] CenterComtr[facility] on above:Performed By: #### CMP, YASH, LIPA ####[facility] [address] [place] [address]Dr. Yilan ChangUrea nitrogen/Creatinine [Mass ratio]25.9 mg/mgNormalThe [facility] CenterComtr[facility] on above:Performed By: #### CMP, YASH, LIPA ####[facility] [address] [place] [address]Dr. Yilan ChangURINE MICROSCOPIC ONLYon 06-19-2022 BACTERIATRACEAbnormalNONE SEENThe [facility] CenterComment on above:Performed By: #### BOONE ARREAGA #### [facility] Laboratory [address] [address] [address] Tapan Link identified Cx Nom (U)NOT INDICATEDNormalThe [facility] CenterComment on above:Performed By: #### GIBSON, ERUR #### [facility] [address] [address] [address] Tapan PoonNONMarion SEENNormalNONE SEENThe [facility] CenterComment on above:Performed By: #### GIBSON, ERUR #### [facility] [address] [address] [address] Tapan Luuystals LM Nom (Urine sed)NONE SEENNormalNONE SEENThe [facility] CenterComtr[facility] health [facility] on above:Performed By: #### GIBSON, ERUR #### [facility] [address] [place] [address] Dr. Phelan ChangEpithelial cells LM Ql (Urine sed)FEWAbnormalNONE SEEN /RAREThe [facility] CenterComment on above:Performed By: #### GIBSON, ERUR #### [facility] Laboratory [address] [place] [address] Dr. Tapan EmeryCOUSNONE SEENNormalNONE SEENBarnesville HospitalComtrinity health [facility] hospital on above:Performed By: #### GIBSON, ERUR #### [facility] [address] [place] [address] Dr. Tapan GomezRuveaETT64-82Hvrzpnpq5-4Fky [facility] CenterComment on above: Performed By: #### GIBSON, ERUR #### [facility] [address] [place] [address] Dr. Tapan GordonWBCNONE SEENNormalNONE SEENBarnesville HospitalComtrinity health [facility] on above: Performed By: #### GIBSON, ERUR #### [facility] [address] [place] [address] Dr. Tapan GordonCT LUNG CANCER SCREENINGon [id number] LUNG CANCER SCREENING EXAMINATION: CT LUNG CANCER [...] Electronically authenticated by: XAVIER HOLLINGSWORTH Date: 2022-05-29 07:22[facility] Vital Signs Date TimeVital SignValuePerforming QnabgbkwdCygtgtkw15-31-6433 09:33-0400Body iywkuw964.75 cmValeroger Daley [employer] MARKET[employer] INTERN[employer] Work Phone: [facility]09-16-2025 09:33-0400 Body mass index (BMI) [Ratio]39.2 kg/z4Prprtrs Daley [employer] Work Phone: [facility]09-16-2025 09:33-0400 Body .88 kgLaurarimarion Daley [employer] Work Phone: [facility]09-16-2025 09:33-0400 Diastolic blood aovcbybj72 mm[Hg]Jairo Sweetillo [employer] Work Phone: [facility]09-16-2025 09:33-0400 Heart rate64 /minJairo Daley [employer] MARKET[employer] Work Phone: [facility]09-16-2025 09:33-0400 Respiratory rate18 /minJairo Sweetillo [employer] MARKET[employer] INTERN[employer] Work Phone: [phone]09-16-2025 09:33-0400 SaO2% (BldA) [Mass fraction]94 %Jairo Sweetillo [employer] Work Phone: [phone]09-16-2025 09:33-0400 Systolic blood fpjevxkb565 mm[Hg]Jairo Daley [employer] Work Phone: [facility]04-04-2025 09:48-0400 Diastolic blood dmewvkpt63 mm[Hg]Jairo Daley [employer] Work Phone: [phone]04-04-2025 09:48-0400 Heart rate63 /minJairo Daley [employer] MARKET[employer] Work Phone: [facility]04-04-2025 09:48-0400 Systolic blood dvkytlrm316 mm[Hg]Jairo Daley [employer] Work Phone: [facility]02-27-2025 13:34-0500 Body tkqyba116 cmValeroger Sweetillo WASHING TUB OPERATOR-MICA MACHINE OPERATOR Work Phone: [facility]02-27-2025 13:34-0500Body mass index (BMI) [Ratio]37.69 kg/l4Gomxebr Daley WASHING TUB OPERATOR-MICA MACHINE OPERATOR Work Phone: [facility]02-27-2025 13:34-0500Body kqiqpxiaals28.59 [degF]Jairo Sweetillo WASHING TUB OPERATOR-MICA MACHINE OPERATOR Work Phone: [facility]02-27-2025 13:34-0500Body uwlwwp45.48 kgJairo Daley WASHING TUB OPERATOR-MICA MACHINE OPERATOR Work Phone: [facility]02-27-2025 13:34-0500Diastolic blood mm[Hg]Jairo Sweetillo WASHING TUB OPERATOR-MICA MACHINE OPERATOR Work Phone: [facility]02-27-2025 13:34-0500Heart rate 80 /minLaurarie Daley WASHING TUB OPERATOR-MICA MACHINE OPERATOR Work Phone: [facility]02-27-2025 13:34-0500 Respiratory rate20 /minValerie Daley WASHING TUB OPERATOR-MICA MACHINE OPERATOR Work Phone: [facility]02-27-2025 13:34-0473VfX6% (BldA) [Mass fraction]98 %Jairo Daley WASHING TUB OPERATOR-MICA MACHINE OPERATOR Work Phone: [facility]02-27-2025 13:34-0500Systolic blood jczoqzvk068 mm[Hg]Jairo Daley WASHING TUB OPERATOR-MICA MACHINE OPERATOR Work Phone: [facility]02-26-2025 15:21-0500Body zysqhc763.75 cmValerie Daley [employer] MARKETING INTERN[employer]C Work Phone: [facility]02-26-2025 15:21-0500 Body mass index (BMI) [Ratio]38.3 kg/m2Ddbejhv Daley [employer] Work Phone: [facility]02-26-2025 15:21-0500 Body fglsry54.61 kgLaurarie Daley [employer] MARKETING INTERN[employer] Work Phone: [facility]02-26-2025 15:21-0500 Diastolic blood edlyiemk17 mm[Hg]Jairo Daley [employer] MARKET[employer] Work Phone: [facility]02-26-2025 15:21-0500 Heart rate68 /minValerie Daley G[employer] MARKETING INTERN-C Work Phone: [facility]02-26-2025 15:21-0500 Respiratory rate18 /minValerie Daley G[employer] MARKETING INTERN[employer]C Work Phone: [facility]02-26-2025 15:21-0500 SaO2% (BldA) [Mass fraction]92 %Jairo Daley [employer] MARKETING INTERN[employer]C Work Phone: [facility]02-26-2025 15:21-0500 Systolic blood tocafzvn634 mm[Hg]Jairo Daley [employer] MARKET[employer] Work Phone: [facility]01-15-2025 12:58-0500 Body cmVjeff Daley WASHING TUB OPERATOR-MICA MACHINE OPERATOR Work Phone: [facility]01-15-2025 12:58-0500Body mass index (BMI) [Ratio]36.28 kg/e8BlefqkcJairo Daley WASHING TUB OPERATOR-MICA MACHINE OPERATOR Work Phone: [facility]01-15-2025 12:58-0500Body kdtozfrbdvf34.59 [degF]Jairo Daley WASHING TUB OPERATOR-MICA MACHINE OPERATOR Work Phone: [facility]01-15-2025 12:58-0500Body vkssco25.9 kgJairo Daley WASHING TUB OPERATOR-MICA MACHINE OPERATOR Work Phone: [facility]01-15-2025 12:58-0500Diastolic blood bqzddaxt00 mm[Hg]Jairo Sweetillo WASHING TUB OPERATOR-MICA MACHINE OPERATOR Work Phone: [facility]01-15-2025 12:58-0500Heart rate 61 /minJairo Daley WASHING TUB OPERATOR-MICA MACHINE OPERATOR Work Phone: [facility]01-15-2025 12:58-0500 Respiratory rate18 /minJairo Sweetillo WASHING TUB OPERATOR-MICA MACHINE OPERATOR Work Phone: [facility]01-15-2025 12:58-1382MtG8% (BldA) [Mass fraction]94 %Jairo Daley WASHING TUB OPERATOR-MICA MACHINE OPERATOR Work Phone: [facility]01-15-2025 12:58-0500Systolic blood mm[Hg]Jairo Daley WASHING TUB OPERATOR-MICA MACHINE OPERATOR Work Phone: [facility]11-25-2024 14:20-0500Body twucwd127 cmVjeff Sweetillo WASHING TUB OPERATOR-MICA MACHINE OPERATOR Work Phone: [facility]11-25-2024 14:20-0500Body mass index (BMI) [Ratio]36 kg/z0MosryjlJairo Daley APRN-MICA MACHINE OPERATOR Work Phone: [facility]11-25-2024 14:20-0500Body orcwvjdgmgd53.9 [degF]Jairo Daley APRN-MICA MACHINE OPERATOR Work Phone: [facility]11-25-2024 14:20-0500Body hirlwu29.17 kgJairo Daley APRN-MICA MACHINE OPERATOR Work Phone: [facility]11-25-2024 14:20-0500Diastolic blood mieoioxr44 mm[Hg]Jairo Daley APRN-MICA MACHINE OPERATOR Work Phone: [facility]11-25-2024 14:20-0500Heart rate 67 /minJairo Daley APRN-MICA MACHINE OPERATOR Work Phone: [facility]11-25-2024 14:20-0500 Respiratory rate18 /minJairo Daley APRN-MICA MACHINE OPERATOR Work Phone: [facility]11-25-2024 14:20-0920VxL5% (BldA) [Mass fraction]91 %Jairo Daley APRN-MICA MACHINE OPERATOR Work Phone: [facility]11-25-2024 14:20-0500Systolic blood gdpkimze100 mm[Hg]Jairo Daley APRN-MICA MACHINE OPERATOR Work Phone: [facility]10-22-2024 08:15-0400Body mfyrql372 cmValeroger Daley APRN-MICA MACHINE OPERATOR Work Phone: [facility]10-22-2024 08:15-0400Body mass index (BMI) [Ratio]36.6 kg/w2JkbueeeJairo Daley APRN-MICA MACHINE OPERATOR Work Phone: [facility] [employer] Lqtczp00-17-3226 08:15-0400Body gpiabzrmmca45.5 [degF]Jairo Daley WASHING TUB OPERATOR-MICA MACHINE OPERATOR Work Phone: [facility]10-22-2024 08:15-0400Body kjoyfc32.71 kgJairo Daley WASHING TUB OPERATOR-MICA MACHINE OPERATOR Work Phone: [facility]10-22-2024 08:15-0400Diastolic blood fnkjngix95 mm[Hg]Jairo Daley WASHING TUB OPERATOR-MICA MACHINE OPERATOR Work Phone: [facility]10-22-2024 08:15-0400Heart rate 64 /minJairo Daley WASHING TUB OPERATOR-MICA MACHINE OPERATOR Work Phone: [facility]10-22-2024 08:15-0400 Respiratory rate18 /minJairo Daley WASHING TUB OPERATOR-MICA MACHINE OPERATOR Work Phone: [facility]10-22-2024 08:15-4272KhV5% (BldA) [Mass fraction]92 %Jairo Daley WASHING TUB OPERATOR-MICA MACHINE OPERATOR Work Phone: [facility]10-22-2024 08:15-0400Systolic blood erewsgtd032 mm[Hg]Jairo Daley WASHING TUB OPERATOR-MICA MACHINE OPERATOR Work Phone: [facility]10-02-2024 09:40-0400Diastolic blood yiznvcxr32 mm[Hg][employer] Jairo Sweetillo Work Phone: [facility]10-02-2024 09:40-0400 Heart rate72 /minNP-C Jairo Sweetillo Work Phone: [facility]10-02-2024 09:40-0400 Respiratory rate20 /minNP-C Jairo Daley Work Phone: [facility]10-02-2024 09:40-0400 SaO2% (BldA) [Mass fraction]98 %[employer] Jairo Daley Work Phone: [facility]10-02-2024 09:40-0400 Systolic blood mm[Hg][employer]N-[employer] Jairo Daley Work Phone: [facility]10-02-2024 06:51-0400 Body .48 cmNP-C Jairo Daley Work Phone: [facility]10-02-2024 06:51-0400 Body escorl80.98 kgNP-C Jairo Daley Work Phone: [facility]09-19-2024 12:09-0400 Body omxvmc278.3 cmCristobal Christopher DPM Work Phone: [facility] HospitalXkxysxxucc83-12-8265 12:09-0400Body mass index (BMI) [Ratio]35.22 kg/k3TplrydliCristobal Owens DPM Work Phone: [facility] HospitalTipnflsmgl63-41-2053 12:09-0400Body .63 kgCristobal Owens DPM Work Phone: [facility] HospitalAkvwzefndw34-81-0660 12:09-0400Diastolic blood zvbcqyta62 mm[Hg]Cristobal Owens DPM Work Phone: [facility] HospitalCoxrjcafcw29-56-8220 12:09-0400Heart rate74 /min Cristobal Owens DPM Work Phone: [facility] HospitalRdviahenan49-26-7820 12:09-0400Respiratory rate18 /minCristobal Oewns DPM Work Phone: [facility] HospitalTpqmmozhlx11-69-3903 12:09-0400Systolic blood josgmvho693 mm[Hg]Cristobal Owens DPM Work Phone: [facility] HospitalCydkukmvxf79-44-0251 09:24-0400Body cm Jairo Daley WASHING TUB OPERATOR-MICA MACHINE OPERATOR Work Phone: [facility]06-24-2024 09:24-0400Body mass index (BMI) [Ratio]37.36 kg/h5LloswvoJairo Daley WASHING TUB OPERATOR-MICA MACHINE OPERATOR Work Phone: [facility] [employer] Bofxfv58-12-3164 09:24-0400Body oeelurrvrsr24.81 [degF]Jairo Daley APRN-MICA MACHINE OPERATOR Work Phone: [facility] [employer] Dmoxad95-89-5910 09:24-0400Body srsnuq06.66 kgJairo Daley APRN-MICA MACHINE OPERATOR Work Phone: [facility] [employer] Zbymeo10-84-0770 09:24-0400Diastolic blood wugpfxye95 mm[Hg]Jairo Daley APRN-MICA MACHINE OPERATOR Work Phone: [facility] [employer] Qppfhc39-65-1040 09:24-0400Heart rate 64 /minJairo Daley APRN-MICA MACHINE OPERATOR Work Phone: [facility] [employer] Ftskrq47-69-4644 09:24-0400 Respiratory rate18 /minJairo Daley APRN-MICA MACHINE OPERATOR Work Phone: [facility]06-24-2024 09:24-1184GyB3% (BldA) [Mass fraction]95 %Jairo Daley APRN-MICA MACHINE OPERATOR Work Phone: [facility] [employer] Adezrs21-58-4144 09:24-0400Systolic blood lgcbwtal144 mm[Hg]Jairo Daley APRN-MICA MACHINE OPERATOR Work Phone: [facility] [employer] Cwpijw62-84-2061 09:40-0500Body tvgzni637 cmValeroger Daley APRN-MICA MACHINE OPERATOR Work Phone: [facility] [employer] Dtgfto00-45-8849 09:40-0500Body mass index (BMI) [Ratio]36.6 kg/s4RtlaiyrJairo Daley APRN-MICA MACHINE OPERATOR Work Phone: [facility] [employer] Wottbn34-11-2066 09:40-0500Body kcznaeterae29.01 [degF]Jairo Daley APRN-MICA MACHINE OPERATOR Work Phone: [facility] [employer] Qxvqvc80-94-8334 09:40-0500Body .71 kgaJiro Daley WASHING TUB OPERATOR-MICA MACHINE OPERATOR Work Phone: [facility]02-22-2024 09:40-0500Diastolic blood hamahstn50 mm[Hg]Jairo Daley WASHING TUB OPERATOR-MICA MACHINE OPERATOR Work Phone: [facility]02-22-2024 09:40-0500Heart rate 64 /minJairo Daley APRN-MICA MACHINE OPERATOR Work Phone: [facility]02-22-2024 09:40-5981LjD0% (BldA) [Mass fraction]93 %Jairo Daley WASHING TUB OPERATOR-MICA MACHINE OPERATOR Work Phone: [facility]02-22-2024 09:40-0500Systolic blood ezhxklet002 mm[Hg]Jairo Daley WASHING TUB OPERATOR-MICA MACHINE OPERATOR Work Phone: [facility]02-15-2024 15:54-0500Body .3 cmCristobal Owens DPM Work Phone: [facility] HospitalPdikxyuxjj87-32-1521 15:54-0500Body mass index (BMI) [Ratio]35.22 kg/s4ZlutexmeCristobal Owens DPM Work Phone: [facility] HospitalAntnzrirxy04-59-6827 15:54-0500Body btsrqo37.63 kgCristobal Owens DPM Work Phone: [facility] HospitalOdynvzfteq90-32-9889 15:54-0500Diastolic blood mm[Hg]Cristobal Owens DPM Work Phone: [facility] HospitalOsmratcmmb32-61-8719 15:54-0500Heart rate88 /min Cristobal Owens DPM Work Phone: [facility] HospitalGbwtffyyej54-40-8626 15:54-0500Systolic blood bxdlrjzu507 mm[Hg]Cristobal Owens DPM Work Phone: [place] Healthcare Encounters Encounter DateEncounter TypeCare ProviderFacilityStart: 08-31-2025 End: 56-86-3944wkpyotryqcWMFRJWE J CASTILLOAdena [facility] HospitalStart: 07-18-2025 End: 20-10-0155fxfmqkzyexWQAAHOQ Rick DALEYAdena [facility]ayette [facility] Center HospitalStart: 07-18-2025 End: 89-73-1600Iauinrwkby hospital visit by Markos Britt CNP Work Phone: [facility] LABComment on above:Gross hematuria; Mixed incontinence; Incomplete bladder emptyingStart: 07-12-2025 End: 99-12-3532piiiqlpfczQSPAIXS Rick DALEYAdena [facility] HospitalStart: 07-12-2025 End: 43-03-8546Hsysczrtdu hospital visit by Aimee Huerta [address] [place] [address] RadiologyComment on above:Renal calculusStart: 07-05-2025 End: 03-48-9513aebsivoybeYhayxbc J Castillo GLOBAL MARKETING INTERNNegar Work Phone: [facility] Work Phone: Start: 07-05-2025 End: 64-65-1116Nphveyq encounter procedureGeorwhit Rea MD-[facility] Cardiology Work Phone: Start: 06-24-2025 End: 74-20-7434qqalhqtvmyYhaanusJairo URBINAFacility:Ortho/Sport Med Start: 04-18-2025 End: 59-63-7581cgzkgvsrakZqbgwtrJairo URBINAFacility:Ortho/Sport Med Start: 03-11-2025 End: 96-27-3134iuaaimdqwiTdicmss Lynn Laudick PA-CFacility:Ortho/Sport MedStart: 02-28-2025 End: 78-65-0766mewterjkeqCxedlccJairo URBINAFacility:Ortho/Sport Med Start: 02-15-2025 End: 12-83-9221edqsboofjvSwmpaxgJairo URBINAFacility:Ortho/Sport Med Start: 02-10-2025 End: 91-28-9469awpfeetjucPxrmt Jon Johnson DPMFacility:[facility] Start: 02-02-2025 End: 20-41-9623jfnhurgcisKnogovrCelina Daley APRN-CNPFacility:[facility] Hospitaltart: 01-31-2025 End: 40-71-8745rhcitkytjuQoqpffqCelina Daley APRN-CNPFacility:[facility] Hospitaltart: 43-30-9224Yke-patient / Non-visitJairo Daley GLOBAL MARKETING INTERN-C Work Phone: [facility] Physician GroupCounts Include [address] [facility] Cardiology Work Phone: Start: 01-21-2025 End: 10-56-0521Frnbgvi encounter procedureJairo Daley GLOBAL MARKETING INTERN-C Work Phone: [facility]Electrodiagnostics Work Phone: Start: 01-21-2025 End: 05-32-1534qsatfhfnwoHhqybnw J Castillo GLOBAL MARKETING INTERN-C Work Phone: [facility] Work Phone: Start: 12-24-2024 End: 51-08-2867trdijeatfgEkhefConner Burden DPMFacility:Ortho/Sport MedStart: 12-16-2024 End: 53-33-1700Cdrziz outpatient visit 25 minutesValeroger Daley APRN-MICA MACHINE OPERATOR Work Phone: [facility] - Family MedicineComment on above:Benign essential HTN (Primary Dx); Arthritis, multiple joint involvement; Fibromyalgia; Acquired hypothyroidism; Primary insomnia; Chronic bronchitis with emphysema ([facility]); History of depressionStart: 12-16-2024 End: 43-31-8033lpapdwipjoEKLWZBD J [facility]ILLOMarion [facility] Start: 12-15-2024 End: 27-08-6080xgxxlajsioQhmbdod J Castillo GLOBAL MARKETING INTERN-C Work Phone: [facility] Work Phone: Start: 12-15-2024 End: 62-04-1145Adthbky encounter True Daley NP-C Work Phone: [facility] Physician GroupCounts Include [address] [facility] Cardiology Work Phone: Start: 11-03-2024 End: 07-75-5761Wgbjby outpatient visit 15 minutesJairo Daley WASHING TUB OPERATOR-MICA MACHINE OPERATOR Work Phone: [facility] Physicians Internal Medicine - Family MedicineComment on above:Benign essential HTN (Primary Dx); Obesity, morbid ([facility]-HCC)Start: 11-03-2024 End: 98-33-9084rvihfijysxBEIEXMELourdes Medical Center [facility] Start: 10-21-2024 End: 97-67-7912Xlmawroqu encounterMisty Vanesa [facility]Medi[facility] Internal [facility] - Family [facility] Centertart: 10-06-2024 End: 58-30-2888rwznoyiyitKFBJWGCSt. [facility] Hospital [facility] Start: 09-13-2024 End: 55-07-0088Zdnhoex encounter procedureJairo Daley WASHING TUB OPERATOR-MICA MACHINE OPERATOR Work Phone: [facility] Physicians Internal Medicine - Family MedicineComment on above:Medicare annual wellness visit, subsequent (Primary Dx); COPD exacerbation ([facility])Start: 09-13-2024 End: 75-06-6784vjzablpsdgWKBZODDSt. [facility] Hospital [facility] Start: 08-10-2024 End: 58-64-2013Wyaihn outpatient visit 25 minutesJairo Daley WASHING TUB OPERATOR-MICA MACHINE OPERATOR Work Phone: [facility] Physicians Internal Medicine - Family MedicineComment on above:Fibromyalgia (Primary Dx); Need for influenza vaccination; Arthritis, multiple joint involvement; Anxiety and depression; Acquired hypothyroidism; Benign essential HTN; Primary insomnia; Chronic bronchitis with emphysema ([facility]); Mixed hyperlipidemia; Screening for diabetes mellitus (DM)Start: 08-10-2024 End: 19-61-4189vtjuefwblmAOFDBFKSt. [facility] Hospital [facility] Start: 44-86-0174Sde-patient / Fvu-lqhdmXD-WTika Daley Work Phone: [facility] Work Phone: Start: 07-21-2024 End: 40-27-4084Xduxudeno to same day surgery centerLINDA Daley Work Phone: [facility]-Digestive Health Work Phone: Start: 07-21-2024 End: 85-39-7752lgwgmyrsfdTMLINDA Daley Work Phone: [facility] Work Phone: Start: 07-09-2024 End: 94-95-6973Pxuwfqwyhd hospital visit by Markos Daley APRN - TESS Work Phone: mthz LaboratoryComment on above:Microscopic hematuria Start: 07-08-2024 End: 44-77-4060Bkcjat flowsJl Owens DPM Work Phone: [facility] CI PODIATRYStart: 07-08-2024 End: 89-02-2836Qdclzp Omaira Owens DPM Work Phone: [facility] CI PODIATRYStart: 07-08-2024 End: 98-89-7026Trloif outpatient visit 15 minutesNicmirtha Owens DPM Work Phone: [facility] CI PODIATRYComment on above:Peroneal tendon tear, right, initial encounter (Primary Dx); Onychomycosis; Toe pain, bilateralStart: 07-08-2024 End: 58-59-0385pkmlvpusasTRDSOMAT A BROWNNot AvailableStart: 05-13-2024 End: 60-99-7566Sdsoxcjat encounterJairo Daley APRN-TESS Work Phone: [facility] - Family MedicineStart: 04-29-2024 End: 33-50-2614fvkrsomcmsUXTIKVDP A BROWNNot AvailableStart: 94-81-8799Gtf- patient / Fhd-neuwmDL-OLINDA Daley Work Phone: [facility] Work Phone: Start: 04-12-2024 End: 06-12-5297Xgkczi outpatient visit 25 minutesJairo Daley APRN-MICA MACHINE OPERATOR Work Phone: [facility] Physicians Internal Medicine - Family MedicineComment on above:Benign essential HTN (Primary Dx); Anxiety and depression; Arthritis, multiple joint involvement; Fibromyalgia; Acquired hypothyroidism; Primary insomnia; Chronic bronchitis with emphysema ([facility]); Special screening for malignant neoplasm of colonStart: 04-12-2024 End: 35-94-0994dmwbvawubuIAGSIQKSt. [facility] Hospital [facility] Start: 04-08-2024 End: 02-43-6218OjtmhnVbmkqulRoxie Daley APRN-MICA MACHINE OPERATOR Work Phone: [facility] Physicians Internal Medicine - Family MedicineComment on above:FibromyalgiaStart: 03-24-2024 End: 20-19-9034YxnglyLvwtykoRoxie Daley APRN-MICA MACHINE OPERATOR Work Phone: [facility] Physicians Internal Medicine - Family MedicineComment on above:Primary insomniaStart: 03-11-2024 End: 89-83-2243nbstlktxpzBBPTEADC A BROWNNot AvailableStart: 02-19-2024 End: 54-17-7142pbbnxungxhMLPQGEWX A BROWNNot AvailableStart: 65-58-5923Goyowk Isidra Vanesa [facility] Physicians Internal Medicine - Family MedicineComment on above:Chronic bronchitis with emphysema; Arthritis, multiple joint involvement; Anxiety and depression; Fibromyalgia; Acquired hypothyroidism; Benign essential HTN; Primary insomnia; History of kidney stonesStart: 26-06-2918TpbbgpNvtnp Vanesa [facility] Internal Medicine - Family MedicineComment on above:Chronic bronchitis with emphysema; Arthritis, multiple joint involvement; Anxiety and depression; Fibromyalgia; Acquired hypothyroidism; Benign essential HTN; Primary insomniaStart: 12-11-2023 End: 77-62-3875bvlxmwkorgDYVFTUK [facility] Hospitaltart: 12-11-2023 End: 01-97-9579Slieoq outpatient visit 25 minutesJairo Daley APRN-MICA MACHINE OPERATOR Work Phone: [facility] - Family MedicineComment on above:Acquired hypothyroidism (Primary Dx); Panlobular emphysema ([facility]-HCC); Obesity, morbid (CMS-HCC); Need for hepatitis C screening test; Arthritis, multiple joint involvement; Anxiety and depression; Fibromyalgia; Benign essential HTNStart: 12-04-2023 End: 27-14-3822Upmdyc outpatient new 30 minutesCristobal Owens DPM Work Phone: [facility] CI PODIATRYComment on above:DJD (degenerative joint disease), ankle and foot, right (Primary Dx); Other specified disorders of synovium, right ankle and foot; Onychomycosis; Toe pain, bilateralStart: 12-04-2023 End: 12-73-1488gypknulbheSFAQPEEN A BROWNNot AvailableStart: 16-54-4248Cvblk abstractingCristobal Owens DPM Work Phone: [facility] CI PODIATRYStart: 97-14-8170Abxydbach encounter Hilario Hurst CMAProMedica Physicians Internal Medicine - Family [facility] Centertart: 11-17-2023 End: 78-10-2370bgafiptercQMNI [facility] Main Campustart: 01-03-2023 End: 63-84-0932Jrfnbqh encounter Trish Britt CNP Work Phone: mthz EKGStart: 01-03-2023 End: 70-05-8791Riixkwszwt hospital visit by Markos Britt CNP Work Phone: mthz EKGComment on above:Renal calculus; Pre-op testingStart: 12-26-2022 End: 45-47-1193Jojjzeycqi hospital visit by physicianInter[facility] Cat Scan RoomMTHZ LaboratoryComment on above:Renal calculus; Gross hematuriaStart: 12-12-2022 End: 34-99-3198Tcllyubxuf hospital visit by Markos Britt CNP Work Phone: mthz LaboratoryComment on above:Renal calculus; Gross hematuriaStart: 12-03-2022 End: 05-62-0374bnzlujszxiEXIS CURETONFacility:Z5Qaddk: 10-21-2022 End: 17-98-5576gwawmzvpqdCL EULALIO TIMMISFacility:N0Mppag: 09-11-2022 End: 32-31-6244Jewalrxmg department patient visitRANDAL Sahu SHOPEFacility:SIS Start: 08-13-2022 End: 59-96-8288bletwfkdupIP XAVIER HOLLINGSWORTHFacility:I3Hztyt: 08-07-2022 End: 78-41-9473wfthhwaljlMH YANELIS MATTHEWSERFacility:X0Bqsns: 07-03-2022 End: 91-28-1090rqeznijlthWX YANELIS Zaldivar ZIEBERFacility:Y7Ewffd: 06-26-2022 End: 30-55-5062dgrcfvxfzeBX EHAB ELTAHAWYFacility:R1Txtli: 06-19-2022 End: 66-98-6847zpddxvtdmcQTDKMRB BARROWSFacility:N4Ifcgi: 05-28-2022 End: 56-79-9666cekfldvcmrXR XAVIER HOLLINGSWORTHFacility:I8Pwmet: 04-03-2022 End: 26-56-5003uctappbwtoYW YANELIS ENGELFacility:H5Qhnbn: 03-08-2022 End: 37-97-8231kqrcvommlkCD YANELIS ENGELFacility:H1 Procedures DateProcedureProcedure DetailPerforming ClinicianStart: 76-11-1530Ycwdk dip stick/tablet reagent auto microscopyJulimarion Ruelas WASHING TUB OPERATOR - MICA MACHINE OPERATOR Work Phone: Start: 10-95-0115Rmksx depression screening assessment Jairo Daley WASHING TUB OPERATOR-MICA MACHINE OPERATOR Work Phone: Start: 74-25-0651Hmweg depression screening assessment Jairo Daley WASHING TUB OPERATOR-MICA MACHINE OPERATOR Work Phone: Start: 61-81-6386Dpwtbtdug colonoscopyNP-C Jairo Daley Work Phone: Start: 36-87-9005Aneau of urea nitrogen quantitative Adele Black [facility] Work Phone: start: 35-29-6467Xpsky depression screening assessment Jairo Daley APRNBRIGHAM AND W[facility] Work Phone: Start: 79-15-7831Upbcu depression screening assessment Jairo Daley [facility] Work Phone: Start: 95-39-2492Kjjpn depression screening assessment Hilario Hurst CMAStart: 09-39-5071Hrc routine ecg w/least 12 lds w/i&rBethany W Wayne [facility] Work Phone: Start: 65-48-7960Jzaif metabolic panel calcium total Adele Black [facility] Work Phone: Start: 65-69-2107Vr abdomen & pelvis w/o contrst 1/> body reThomshaquille Dominguez MD Work Phone: Start: 68-21-7613Siubk of urea nitrogen quantitative Jason Dominguez MD Work Phone: Start: 25-87-2846Wusjr dip stick/tablet reagent auto microscopyThomas Alberto ISRAEL Work Phone: Start: 33-97-5305RggqppupnsgBhmwvs Natali [employer]OCK [employer] FABRICATOR Plan of Treatment DateCare ActivityDetailAuthorStart: 43-53-0416BAqY/Tdap/Td vaccine (2 - Td or Tdap)DTaP/Tdap/Td vaccine (2 - Td or Tdap)[facility] CenterStart: 97-57-4844Zcoblmnnytv Syncytial Virus (RSV) or age 60 yrs+ (1 - 1-dose 75+ series)Respiratory Syncytial Virus (RSV) or age 60 yrs+ (1 - 1-dose 75+ series)[facility] CenterStart: 72-51-3452Tvlom BMI ScreeningAdult BMI ScreeningProDayton Va Medical Center SystemStart: 19-90-2883Cngojpwcxn Screening Depression ScreeningProDayton Va Medical Center SystemStart: 49-90-8518Mjga Risk Screening Fall Risk ScreeningProMedica Health SystemStart: 25-75-3875Imtuvme Screening Tobacco ScreeningLouis [facility] Health SystemStart: 38-06-1638Mzuxt BMI Follow Up PlanAdult BMI Follow Up PlanBarberton Citizens Hospital SystemStart: 41-09-7070Woowc BMI ScreeningAdult BMI ScreeningBarberton Citizens Hospital SystemStart: 62-73-1163Owmqupc ScreeningTobacco ScreeningBarberton Citizens Hospital SystemStart: 04-23-1645Vwdhm BMI Follow Up PlanAdult BMI Follow Up PlanBarberton Citizens Hospital SystemStart: 10-06-2025 Adult BMI ScreeningAdult BMI ScreeningBarberton Citizens Hospital SystemStart: 10-06-2025 Tobacco ScreeningTobacco ScreeningBarberton Citizens Hospital SystemStart: 44-60-0456Qjrjq BMI ScreeningAdult BMI ScreeningBarberton Citizens Hospital SystemStart: 09-13-2025 Depression ScreeningDepression ScreeningBarberton Citizens Hospital SystemStart: 09-13-2025 Fall Risk ScreeningFall Risk ScreeningBarberton Citizens Hospital SystemStart: 09-13-2025 Medicare Annual Wellness VisitMedicare Annual Wellness VisitBarberton Citizens Hospital SystemStart: 12-04-9711Qypwpst ScreeningTobacco ScreeningBarberton Citizens Hospital System Start: 09-07-2025 End: 18-75-1466Fkbttnf encounter tigbtembn69/19/2025 1:15 PM EST Office Visit [facility] UROLOGY Part of [address] [place] [address] Filiberto Sow, PANegar [address] [facility] [address] [place] [address] 6-8w med check/ [facility]vrMER[facility] [place] [facility] Part [facility] HospitalComment on above:6-8w med check/ pvrStart: 93-82-7186Hjvuw BMI Follow Up PlanAdult BMI Follow Up Plan [facility] SystemStart: 96-97-7106Drvfq BMI ScreeningAdult BMI Screening [facility] SystemStart: 23-53-1764Nwtglpa ScreeningTobacco Screening [facility] SystemStart: 07-18-2025 End: 22-90-1933Tywcwqt encounter xbsdjhkcy60/29/2025 10:00 AM EDT Office Visit [facility] UROLOGY Part [address] [place] [address] Filiberto Sow, FERNANDO [address] [place] [address] [address] [facility] [place] [address] 1 year F/U KUB. [facility] UROLOGY Part [facility] HospitalComment on above:1 year F/U KUB.Start: 63-11-9688BbpwdhjgfMarion Hospitaltart: 60-69-0265PLFBH-19 Vaccine ( season)COVID-19 Vaccine ( season)[facility] CenterStart: 06-09-2025 End: 59-58-5420Risufsa encounter okttwjwvx75/21/2025 9:00 AM EDT Office Visit [facility] UROLOGY Part of [address] [place] [address] Adele Black, WASHING TUB OPERATOR - MICA MACHINE OPERATOR [address] [place] [address] [address] [facility] [place] [id number] 1yr PVR [facility] HamiltonComment on above: 1yr PVR KUBStart: 70-53-3007Fvhhrervp vaccinationFlu vaccine (#1)[facility] CenterStart: 05-18-2025 End: 11-42-4928Oiomnur encounter dbphvbphu12/30/2025 1:00 PM EDT Office Visit [facility] [address] [place] [address] Jairo Daley, WASHING TUB OPERATOR-MICA MACHINE OPERATOR [address] [place] [address] [facility] - Family MedicineStart: 00-88-7247Aexjm BMI Follow Up PlanAdult BMI Follow Up PlanProMedica Health SystemStart: 98-86-7373Bjruy BMI ScreeningAdult BMI ScreeningProDayton Va Medical Center SystemStart: 32-90-9363Brzbibwdse ScreeningDepression ScreeningProDayton Va Medical Center SystemStart: 54-87-9477Tozq Risk ScreeningFall Risk ScreeningBarberton Citizens Hospital SystemStart: 41-96-1165Rycwknh ScreeningTobacco ScreeningBarberton Citizens Hospital SystemStart: 06-26-7144Ckgfhefwmrrr myocardial perfusion stress studyNM helen perf SPECT rest & strMarion Hospitaltart: 73-98-0524TJEAF Heart perfusion at rest and W stress and W radionuclide [facility] Hospitaltart: 12-16-2024 End: 32-69-8845Ontceca encounter turdsqklf37/27/2025 2:00 PM EST Office Visit [facility] [address] [place] [address] Jairo Daley, WASHING TUB OPERATOR-MICA MACHINE OPERATOR [address] [place] [address] [facility] - Family MedicineStart: 91-51-4282SohpyjftkMarion Hospitaltart: 16-46-1274Qootc BMI Follow Up PlanAdult BMI Follow Up PlanBarberton Citizens Hospital SystemStart: 70-52-6468Ihvlh BMI ScreeningAdult BMI ScreeningBarberton Citizens Hospital SystemStart: 00-15-0458Dicikauxem ScreeningDepression ScreeningBarberton Citizens Hospital SystemStart: 85-92-2555Wccw Risk ScreeningFall Risk ScreeningBarberton Citizens Hospital SystemStart: 34-46-1349Obbxgst ScreeningTobacco ScreeningBarberton Citizens Hospital SystemStart: 46-61-2662AOGLN-19 Vaccine ()COVID-19 Vaccine ()[facility] Hendersonvilletart: 11-03-2024 End: 73-90-5628Fmfkamk encounter auwswuqke78/15/2025 1:00 PM EST Office Visit [facility] [address] [place] [address] Jairo Daley, WASHING TUB OPERATOR-MICA MACHINE OPERATOR [address] [place] [address] [facility] - [facility] MedicineStart: 09-23-2024 End: 48-21-5985Ngentxo encounter eejqjiqip52/05/2024 11:50 AM EST Procedure Visit [facility] [address] [facility] [address] [place] [address] Cristobal Owens, VIKI [address] [facility] [address] [place] [address] [facility] CI PODIATRYStart: 09-13-2024 End: 17-40-2972Cschmzr encounter /25/2024 2:40 PM EST Office Visit [facility] [address] [place] [address] Jairo Daley, WASHING TUB OPERATOR-MICA MACHINE OPERATOR [address] [place] [address] [facility] - [facility] MedicineStart: 42-65-4493Txiyc BMI Follow Up PlanAdult BMI Follow Up PlanProDayton Va Medical Center SystemStart: 71-17-9986Vpzoo BMI ScreeningAdult BMI ScreeningProDayton Va Medical Center SystemStart: 84-58-4132Sekiyycllt ScreeningDepression ScreeningProSelect [facility] SystemStart: 68-31-2354Ojiv Risk ScreeningFall Risk ScreeningProSelect [facility] SystemStart: 11-01-2024Medicare Annual Wellness VisitMedicare Annual Wellness VisitProSelect [facility], [facility] SystemStart: 68-64-4072Wnzlahy ScreeningTobacco ScreeningProSelect [facility], [facility] SystemStart: 07-60-3374Rimrcrdna for malignant neoplasm of breastBreast cancer screenBON UNIVERSITY HOSPITALS HEALTH SYSTEMStart: 08-10-2024 End: 05-46-9540Cpqsoqo encounter tgeqdwwfg44/22/2024 8:00 AM EDT Office Visit [facility] [address] [place] [address] Jairo Daley, WASHING TUB OPERATOR-MICA MACHINE OPERATOR [address] [place] [address] [facility] Family [facility] Centertart: 16-47-8245EtzxhzlpwMarion Hospitaltart: 07-16-2024 End: 28-46-1963Hvxsynf encounter kgxagrbsc98/27/2024 8:45 AM EDT [facility] [facility] Part of [facility] [address] [place] [address] Jason Dominguez MD [address], [address] [place] [address] Follow up [facility] Part [facility] HospitalComment on above:Follow up CTStart: 07-08-2024 End: 65-78-7527Ufvwlnj encounter lyoiinnap28/19/2024 11:50 AM EDT Procedure Visit [facility] [address] [facility] [address] [place] [address] Cristobal Owens, DPBrock [address] [facility] [address] [place] [address] Peroneal tendon tear, right, initial encounter (Primary Dx); Onychomycosis;Toe pain, bilateralNOMS CI PODIATRYComment on above:Peroneal tendon tear, right, initial encounter (Primary Dx); Onychomycosis; Toe pain, bilateralStart: 56-57-3339Muriib Wellness Visit (Medicare)Annual Wellness Visit (Medicare)[facility]Start: 50-31-4580JHCGA-19 Vaccine ( season)COVID-19 Vaccine ( season)[facility] SYSTEMStart: 77-48-9013Ezmedzoib vaccinationBarnes-Jewish Saint Peters HospitalStart: 57-21-4940Ewjgpdkyi vaccinationFlu vaccine (#1)[facility]Start: 04-12-2024 End: 01-85-6035Jqqqums encounter pzmmegqlr05/24/2024 9:40 AM EDT Office Visit [facility] [address] [place] [address] Jairo Daley, WASHING TUB OPERATOR-MICA MACHINE OPERATOR [address] [place] [address] [facility]: 02-12-2024 End: 20-38-2424Ptgplfk encounter ucvccythj33/25/2024 4:40 PM EDT Procedure Visit [facility] [address] [address] [place] [address] Cristobal Owens DPM [address] [address] [facility] CI PODIATRYStart: 13-29-6408Hgesomi Counseling Tobacco CounselingAdventHealth Hendersonvilletart: 12-18-2023 End: 21-23-5003Unfcsxho Mmaxken7012/18/2023 8:50 AM EST Clinical Support [facility] [address] [address] [place] [address] Cristobal Owens DPM [address] [address] [facility] CI PODIATRYStart: 12-11-2023 End: 17-71-4885Grzfgiz encounter xfffzoimx51/22/2024 9:45 AM EST Office Visit [facility] [address] [place] [address] Jairo Daley, WASHING TUB OPERATOR-MICA MACHINE OPERATOR [address] [place] [address] [facility] - Family MedicineStart: 12-04-2023 End: 04-49-5342Albacnh encounter kpjepbkxz50/15/2024 4:00 PM EST Office Visit [facility] [address] [facility] [address] [place] [address] Cristobal Owens DPM [address] [facility] [address] [place] [address] [facility] CI PODIATRYStart: 09-21-7567Qsqtmujvf for malignant neoplasm of breastMammogramRIVERTON HOSPITAL HealthcareStart: 50-07-0589KFOPU-19 Vaccine ( season)COVID-19 Vaccine ( season)[facility] SystemStart: 01-21-2023 End: 63-26-9691Eorfyizae to same day surgery hrimrl8001/21/2023 Surgery IP Unit Jason Dominguez MD [address] [place] [address], [address] [place] [address] ESWL EXTRACORPOREAL SHOCK WAVE LITHOTRIPSYMTHZ ORComment on above:ESWL EXTRACORPOREAL SHOCK WAVE LITHOTRIPSY Start: 01-21-2023 End: 46-10-8389Uzbzvnotsur xtrcorp shock waveESWL EXTRACORPOREAL SHOCK WAVE LITHOTRIPSY Renal calculus 01/21/2023 7:30 AM [facility] Start: 67-62-5026Eliuqtkdyv hospital visit by jdusjqmcx22/04/2023 Hospital Encounter IP Unit Jason Dominguez MD [address] [place] [address], [address] [place] [address] MTHZ ORStart: 12-31-2022 End: 02-17-0307Ozsfwuy encounter yuoqwblwh25/14/2023 Appointment [facility] CT ScanStart: 60-90-0477Nbfjby Wellness Visit (AWV)Annual Wellness Visit (AWV)[facility]ITALStart: 40-87-5997Djusjjncaej Syncytial Virus (RSV) or age 60 yrs+ (1 - 1-dose 60+ series)Respiratory Syncytial Virus (RSV) or age 60 yrs+ (1 - 1-dose 60+ series)[facility]: 63-34-4966Ormczqukl for osteoporosisDEXA (modify frequency per FRAX score)[facility]: 15-46-9575Cgxzsxlxsmukii of varicella zoster vaccineZoster (Shingles) Vaccine (1 of 2)[facility] Hendersonvilletart: 01-05-8952Dppwstgoa for malignant neoplasm of breastBreast cancer screenValley Healthart: 61-59-8782Wrftcuszc for malignant neoplasm of lung Lung Cancer Screening &/or CounselingRiverside Tappahannock Hospitalart: 2006 Shingles vaccine (1 of 2)Shingles vaccine (1 of 2)[facility]: 90-42-0686Cebzwhxfs for malignant neoplasm of colonC[facility] Start: 28-54-3971Cszos panelLipidsValley Healthart: 1991 Diabetes screenDiabetes [facility] Hospitalart: 70-46-1749HPnA,Tdap and Td Vaccines (1 - Tdap)DTaP,Tdap and Td Vaccines (1 - Tdap)[facility]illetart: 04-58-2857IQrZ/Tdap/Td vaccine (1 - Tdap)DTaP/Tdap/Td vaccine (1 - Tdap)[facility]ITALStart: 19-27-9755Eifhkyjek C screeningHepatitis C [facility] Hospitalart: 01-63-8648Kqmiodpglq ScreenDepression [facility] Healthcareart: 17-21-3369HBMSA-19 Vaccine (#1)COVID-19 Vaccine (#1)[facility]art: 83-72-8137Vhvydcocz for malignant neoplasm of colonNOMS HealthcareStart: 26-29-2832Yxkireu CounselingTobacco CounselingTogus VA Medical Center End: 18-74-5160QQC W Auto Differential panel - BloodCBC auto differential Lab Routine Acquired hypothyroidism 1 Occurrences starting 08/10/2024 until [facility] Medical CenterComment on above:1 Occurrences starting 08/10/2024 until 08/10/2025 End: 84-72-3613Jzolyvknmpqdv metabolic 2000 panel - Serum or PlasmaComprehensive metabolic panel Lab Routine Acquired hypothyroidism 1 Occurrences starting 08/10/2024until 08/10/2025[facility] Work Phone: Comment on above:1 Occurrences starting 08/10/2024 until 08/10/2025 End: 89-60-7071Eolvwtd, UrineBON RECUPYL Work Phone: Comment on above:1 Occurrences starting 12/12/2022 until 12/12/2022 End: 20-95-2756Xmepmsx, UrineBon VestmarkComment on above:1 Occurrences starting 07/18/2025 until 07/18/2025 End: 34-43-2748Hheojhcfxi A1c/Hemoglobin.total in BloodHemoglobin A1c Lab Routine Screening for diabetes mellitus (DM) 1 Occurrences starting 08/10/2024 until 08/10/2025ProVT Silicon SystemComment on above:1 Occurrences starting 08/10/2024 until 08/10/2025 End: 24-07-2298Mihuh 1996 panel - Serum or PlasmaLipid profile Lab Routine Mixed hyperlipidemia 1 Occurrences starting 08/10/2024 until 08/10/2025ProVT [employer] SystemComment on above:1 Occurrences starting 08/10/2024 until 08/10/2025 Patient EducationHemorrhoids (DC) Diverticulosis (DC) Colon Polypectomy (DC) Know your [facility] Work Phone: End: 59-90-0499Vqexrmjyqxu [Units/volume] in Serum or PlasmaTSH Lab Routine Acquired hypothyroidism 1 Occurrences starting 08/10/2024 until 08/10/2025 [facility] MVP Vault SystemComment on above:1 Occurrences starting 08/10/2024 until 08/10/2025US Lower extremity - rightUS foot right Imaging Routine Other specified disorders of synovium, right ankle and foot Ordered: 12/04/2023[facility] Work Phone: Comment on above:Ordered: 12/04/2023 End: 91-98-7038CW Abdomen Single viewBon Secours Mercy HealthComment on above:1 Occurrences starting 07/12/2025 until 07/12/2025 Immunizations Immunization DateImmunizationNotesCare JxwsekttUjozqlgv07-18-7357Pzbkwbjp trivalent influenza vaccine, adjuvanted, preservative freeValerimarion Edi SILVER-MICA MACHINE OPERATOR Work Phone: [facility] VA Medical CenterFiaome32-38-8477Weyhfjweadky, In Clinic,; Translations: [Drug or medicament (substance)]Jairo Edi [facility] Work Phone: [facility] Medical CenterNaqbah74-53-1955FLAFR-09, SPIKEVAX (Moderna), (age 12y+), IM, 50mcg/0.5mLMth 2BBon [facility]10-10-2024 influenza, high dose seasonal, preservative-freeMth 2BBon [facility] 26-90-6514Daohiccoj Vaccine, Quadrivalent, AdjuvantedAdysan Sleek [facility]11-01-2023influenza virus vaccine, unspecified formulationValerie Edi [facility] Work Phone: [facility] Medical CenterGodzug15-41-6025Yfejgfgxyypx Conjugate 20-valentAdysan Sleek [facility] NorthDdixxj96-27-2774vjrbabmfcyvs conjugate vaccine, 7 valentAdysan Sleek [facility]10-11-2022 Influenza Vaccine, Quadrivalent, AdjuvantedAdysan Sleek [facility] Payers DatePayer CategoryPayerPolicy [id number] Health [id number] [id number] 2024Medicare HMO [id number]-oei [id number] [id number] 2024Medicare [id number] [id number] [id number] [id number] 2023Medicaid [id number] 2022Medicare [id number] [id number] 1.2.840.284896.1.13.239.2.7.3.177[id number] [id number] [id number] [id number] [id number] 2.840.1.808573.3.57[id number] 2.840.1.967477.3.579.2.43750-80-4926Lwvsrti2534838 2.840.1.824811.3.579.2.06178-01-7979Dizfhbh9482372 2.840.1.982516.3.579.2.59263-64-6916Qpnqzdg2408178 2.840.1.195122.3.579.2.38752-05-3786Glvkwhr2263536 2..840.1.109163.3.579.2.16863-91-8562Tllyqjw5105315 2.840.1.696583.3.579.2.08711-59-3117Jmhowzm2162660 2..840.1.097118.3.579.2.25711-95-5892Eiryyaf6664146 2.16840.1.005781.3.579.2.90366-93-9419Pfzdhmp1589198 2.16.840.1.995036.3.579.2.56197-65-9361Qnjvyqe90083700 2.16.840.1.221122.3.579.2.439516-04-0488Zxbzcoh4485981 2.16840.1.784162.3.579.2.509638-26-4532Fmlmglb5622840 2.16.840.1.789604.3.579.2.220488-39-3466Jxcocxj0693268 2.840.1.915586.3.579.2.041236-61-3221Vqmacmv9674933 2.840.1.193798.3.579.2.626266-62-7517Parqrpo1338768 2.840.1.460348.3.579.2.248315-85-8506Kxcczla975631087 2.840.1.189673.3.579.2.818565-68-7834Sdwoeqy787220724 2.840.1.228167.3.579.2.617333-93-0323Khkckmd82690783 2.840.1.624089.3.579.2.771060-38-7857Rqvlalg69423905 2.840.1.169874.3.579.2.165962-78-8145Wrvelfg81432812 2.840.1.790903.3.579.2.980235-26-3617Dkruflr05826947 2.16.840.1.457138.3.579.2.496043-62-2284Fxhccna502914346 2.16840.1.260055.3.579.2.72192-15-4064Meylfjv167867372 2.16.840.1.849449.3.579.2.60235-10-1698Pxneqgu553130423 2.16.840.1.718468.3.579.2.53044-84-3875Lgmtyfo466705815 2.16.840.1.865339.3.579.2.61568-63-7967Mckhqmq101576055 2.16.840.1.672493.3.579.2.87473-87-8091Ktmylze291718495 2..840.1.071035.3.579.2.08657-82-5043Qimgury426006127 2.16.840.1.645124.3.579.2.45023-61-4131Qavsqdg669790091 2..840.1.847718.3.579.2.97963-59-4086Kyeouia261759815 2..840.1.856585.3.579.2.50813-86-8645Ldnvodn689019578 2..840.1.913911.3.579.2.16231-56-7163Sysoprr100352194 2..840.1.354871.3.579.2.85191-27-1208Ovdiydq430297741 2.16.840.1.340721.3.579.2.11361-09-0346Snbrzwp871142019 2.16.840.1.132212.3.579.2.22360-84-0405Xbgiiny796509120 2.16.840.1.696726.3.579.2.85690-22-4464Lnbxukk18512119 2.16.840.1.592707.3.579.2.83149-90-0059Moevqpl65855529 2.16.840.1.545153.3.579.2.73580-19-7919Hiwmuwp27544998 2.16.840.1.518429.3.579.2.82831-26-7242Kzcivhb38141179 2.16.840.1.584468.3.579.2.173Private Health Mqvenznpj540834535 r4lb5288-e237-8i4k-z71b-2iq6lt158907UwvvycbEYFT/HFA/FAP Yyibcd478762255 1966fqft-8pr8-22134ko8-8462-kb38-451i92402781Iwataiu06988698 2.16.840.1.013759.3.579.2.150Psdxuwz78598097 2.16.840.1.207436.3.579.2.531 Rrbgbuc11403267 2.16.840.1.151948.3.579.2.692Jlbmlxv43747183 2.16.840.1.351907.3.579.2.531 Social History DateTypeDetailFacilityStart: 10-20-1965 End: 14-15-0852Cglbkre smoking status NHISSmokes tobacco dailyMOUNTAIN [facility]IST[facility] [employer]ang Phone: start: 94-54-0227Bsqqkyl of tobacco useCigarette SmokerMOUNTAIN VISTA MEDICAL CENTER Bo[employer] Phone: start: 12-12-2022 End: 10-62-4326Nbmkradkcy smoked current (pack per day) - Reported0.5N[facility] HealthcareStart: 12-12-2022 End: 65-42-4292Ybfqqii use and exposureSmokeless tobacco non-userMOUNTAIN VISTA MEDICAL CENTER [employer] Phone: start: 12-12-2022 End: 22-46-2363Lnpfato intakeCurrent drinker of alcohol (finding)[facility] [employer] Phone: start: 39-12-5247Irsofnk CommentSmokes 6-8 cigs/dayBON Boomerang Phone: start: 99-78-2604Ypottzk CommentBeer 2-3 every 2 weeks [facility] [employer] Phone: start: 85-89-4600Lnv Assigned At BirthNot on fileMOUNTAIN VISTA MEDICAL CENTER Boomer[employer] Phone: start: 58-06-4672Mwjunze smoking status NHISNever smoked tobaccoNOWA HealthcareStart: 12-04-2023 End: 98-13-0235Scwufb identityNot on [facility] HealthcareHistory of tobacco use Passive smokerNOWA HealthcareStart: 12-04-2023 End: 90-52-7102Bgmyqae intakeEx-drinker (finding)[facility] HealthcareHow often to you have a drink containing alcohol?2-4 times a monthNOWA HealthcareAverage Number of DrinksNot on [facility] HealthcareStart: 65-98-0625Einrvkd Commentcoffee daily [facility] HealthcareStart: 07-21-2024 End: 29-96-4649Eygmoie smoking status NHISSmoker (finding)[facility] Hospitaltart: 12-18-8639Sgu Assigned At BirthFeProMedica Flower Hospitaltart: 31-61-2811Euafcha Commenton weekends, not often.[employer] SystemStart: 12-01-2012 End: 31-66-9169PmrFpmafb (finding)[facility] Goals DatePatient GoalDesired Activity/State Clinical Notes 03-08-2022 to 07-05-2025 Note Date & GdtiJwgiIntalrac24-64-8028 Evaluation note* Diagnosis Onset Date Resolution Status Admit Date Essential (primary) hypertension acuteSeptember 2024 9:12amTobacco use disorder, continuousacuteSeptember 2024 9:12amLeft ventricular hypertrophy due to hypertensive disease noneactiveSeptember 2024 9:12amAtypical chest painnoneactiveSeptember 2024 9:12am [facility] Work Phone: 1(552) 650-552806-30-2025 NoteThis is a Telephone Appointment *This visit was conducted by Telephone with real time communicationand interaction. The patient provided written consent for treatment. The patient understands their rights, the HIPAA risks and that they will be charged accordingly for the services rendered. This visit was held via telephone within the state of [place] while they were at: Her home. This [...] Tartrate 25 mg o (more content not included)...[facility]04-[facility]-20[facility] NoteAdmission Information Admitted on February 10, [...] to the plantar feet as tested with [place] [employer] monofilament. Gross motor intact bilateral [...] treat. Reviewed notes. Discu (more content not included)...[facility]04-23-2025 NoteChief Complaint RIGHT ANKLE PAIN & [...] PROCEDURE: December 13, 2024 LOCATION OF PROCEDURE: [facility] SURGEON: Brant Burden DPM INFORMED CONSENT: Obtained by and on file at [facility] Patient is a pleasant 69-year-old female who [...] inh, Inhale, qAM V (more content not included)...[facility]03-07-2025 Note Chief Complaint Referral from Dr. [...] 2020. This was treated at [facility]. Patient relates that they have tried xrcb-gmg-dtvwwhh pain relievers, padding, and modification of shoe gear as well as modification of activity levels to no avail. She states she had an MRI performed. States that the right ankle is painful and feels unstable at times. She has hardware on the outside of her right ankle. She states that this is also painful. She relates she sees a clinical lab assistant. She relates she has a history of [...] bilateral. Protective sensation intact as measured with [place] [employer] Monofilament Gross motor intact bilateral. [...] Discussed conservative versus surgic (more content not included)...[facility]02-27-2025 History of Present illness Narrative* Jairo Daley APRN-TESS - 12/16/2024 2:00 PM EST Images from the original note were not included. [address] [place] [address] SUBJECTIVE: Patient ID: Robyn Thorpe is a [...] Diagnosis Date Allergic Asthma Back pain Cancer ([facility]) Chronic kidney disease Disease of thyroid gland [...] by mouth nightly. Chronic bronchitis with emphysema ([facility]) - TRELEGY ELLIPTA 100-62.5-25 mcg blister with [...] CARLITOS Haas 12/16/24 1422 documented in this encounterTogus VA Medical Center02-26-2025 Evaluation note* Diagnosis Onset Date Resolution Status Admit Date Essential (primary) hypertension acuteFebruary 2024 2:55pmTobacco use disorder, continuousacuteFebruary 2024 2:55pmLeft ventricular hypertrophy due to hypertensive disease noneactiveFebruary 2024 2:55pmAtypical chest painnoneactiveFebruary 2024 2:55pm [facility] Work Phone: [phone]) 402-671701-15-2025 History of Present illness Narrative* CARLITOS Haas - 11/03/2024 1:00 PM EST Images from the original note were not included. [address] [facility] [address] SUBJECTIVE: Patient ID: Robyn Thorpe is [...] Diagnosis Date Allergic Asthma Back pain Cancer ([facility]) Chronic kidney disease Disease of thyroid gland [...] CARLITOS Haas 11/03/24 1326 documented in this encounterTogus VA Medical Center01-15-2025 Instructions* Patient Instructions* CARLITOS Haas - 11/03/2024 1:00 PM EST Are You Ready To Kick The Habit? Free Tobacco Cessation Resources [facility] Tobacco Treatment Center Services [facility] Tobacco Treatment Centers provide all employees with free tobacco cessation services that include: Counseling to understand nicotine addiction Education about medications that can help you successfully quit Assistance with developing a plan to quit Call to set up an individual appointment or find out when group classes will be held: [facility]: [phone] [facility]: [phone] [facility]: [phone] [facility]: [phone] Quit Smoking Action Plan and Resources [facility] offers an eight-week, online smoking cessation plan to all [facility] employees, regardless of whether [employer] is your medical insurance provider. Go to www.SEA.org/employeewellness and click the Health Risk Assessment and Resources link to get started. In the [employer] menu, click Action Plans instead of Health Risk Assessment to access the Quit Smoking Action Plan. Additional smoking cessation resources are also available to all [facility] employees on the Dvmca2Jjsaje web page at www.U-NOTE/quitsmoking. [employer] Tobacco Cessation Program If [employer] is your medical insurance provider, there are more free resources available to you, including: No copays or deductibles on local tobacco cessation counseling services to help you quit Prescription assistance for tobacco cessation medications to help you quit For details about the tobacco cessation program available to [employer] members, go to www.U-NOTE (Search: Tobacco Cessation Program). [place] Tobacco Quit Line 2-471-DANS-NOW ( ) is a toll-free, telephonic service that helps [place] residents quit smoking and using tobacco. It is staffed by experts who tailor a quit plan for you and provide you with advice. [place] Tobacco Quit Line 5-338-URQH-NOW ( ) is a toll-free, telephonic service that helps [place] residents quit smoking and using tobacco. It is staffed by experts who tailor a quit plan for you and provide you with advice. Two weeks of nicotine replacement therapy may be provided at no charge, if needed. Additional Resources These national organizations also offer free information and resources to help you quit tobacco: [place] [employer]--www.cancer.org/healthy/stayawayfromtobacco [place] Heart Association--www.heart.org (Search: Quit Smoking) Centers for Disease Control and Prevention--www.cdc.gov/tobacco [place] Lung Association--www.lungusa.org * Attachments The following attachments cannot be sent through Care Everywhere. * Diet and health (Cameroonian) documented in this encounterNortheastern Vermont Regional HospitalCambridge [facility]01-02-2025 Miscellaneous Notes* Telephone Encounter - Isidra Alexis [...] called requesting a referral to a new clinical lab assistant in [place] Their name is [facility] Phone number is [phone] Fax is [phone] documented in this encounterAshtabula General HospitalSnowman Twyjnw10-81-6511 Telephone encounter Note* Telephone Encounter - Isidra Alexis CMA - 10/21/2024 12:10 PM EST Pt called stated that her BP has been 200s over 100s and needs her meds changed its been like this for a week in a half [facility]01-02-2025 Telephone encounter Note* Telephone Encounter - CARLITOS Haas - 10/21/2024 12:10 PM EST She will need an appointment for further evaluation [facility]01-02-2025 Telephone encounter Note* Telephone Encounter - Isidra Alexis CMA - 10/21/2024 12:10 PM EST Can someone finagale this pls [facility]01-02-2025 Telephone encounter Note* Telephone Encounter - Nat Vivar - 10/21/2024 12:10 PM EST Whenever first available is, can be 20 min [facility]01-02-2025 Telephone encounter Note* Telephone Encounter - Isidra Alexis CMA - 10/21/2024 12:10 PM EST I can't find anything till the , I would think she needs to come in sooner if possible you guys are better at working the schedule [facility]01-02-2025 Telephone encounter Note* Telephone Encounter - Nat Vivar - 10/21/2024 12:10 PM EST If that's the first 20 minute we have then that's all. I can't move appointments to accommodate [facility]01-02-2025 Telephone encounter Note* Telephone Encounter - Isidra Alexis CMA - 10/21/2024 12:10 PM EST Pt is scheduled [employer]01-02-2025 Telephone encounter Note* Telephone Encounter - Isidra Alexis CMA - 10/21/2024 12:10 PM EST Pt called requesting a referral to a new clinical lab assistant in [place] Their name is [facility] Phone number is [phone] Fax is [phone] [employer]11-25-2024 History of Present illness Narrative* Jairo Daley, NADEEM-TESS - 09/13/2024 2:40 PM EST Subjective SUBJECTIVE: Patient ID: Robyn Thorpe is a 68 y.o. female who presents for a Medicare Annual Wellness exam. Presents for annual wellness. She stays active. Resides in her own home with significant other. Drives. Does not use assistive gait devices for ambulation. Is a smoker. CT low dose screening is done through file system installer yearly ([facility]) States she has been experiencing wheezing and [...] Diagnosis Date Allergic Asthma Back pain Cancer ([facility]) Chronic kidney disease Disease of thyroid gland [...] Do you have a durable power of communication center coordinator?: (!) No Patient educated today about benefits [...] Medicare annual wellness visit, subsequent COPD exacerbation ([facility]) - azithromycin (ZITHROMAX) 250 mg tablet; Take [...] CARLITOS Haas 09/13/24 1510 documented in this encounterAshtabula General HospitalSnowman [id number] History of Present illness Narrative* CARLITOS Haas - 08/10/2024 8:00 AM EDT Images from the original note were not included. [address] [place] [address] SUBJECTIVE: Patient ID: Robyn Thorpe is a [...] Diagnosis Date Allergic Asthma Back pain Cancer ([facility]) Chronic kidney disease Disease of thyroid gland [...] by mouth nightly. Chronic bronchitis with emphysema ([facility]) - TRELEGY ELLIPTA 100-62.5-25 mcg blister with [...] CARLITOS Haas 08/10/24 0910 documented in this encounterTogus VA Medical Center10-22[facility]2024 Instructions* Patient Instructions* CARLITOS Haas - 08/10/2024 8:00 AM EDT Are You Ready To Kick The Habit? Free Tobacco Cessation Resources [facility] Tobacco Treatment Center Services [facility] Tobacco Treatment [facility] provide all employees with free tobacco cessation services that include: Counseling to understand nicotine addiction Education about medications that can help you successfully quit Assistance with developing a plan to quit Call to set up an individual appointment or find out when group classes will be held: [facility]: [phone] [facility]: [phone] [facility]: [phone] [facility]: [phone] Quit Smoking Action Plan and Resources [facility] offers an eight-week, online smoking cessation plan to all [facility] employees, regardless of whether [employer] is your medical insurance provider. Go to [email or web address] Office.[email or web address]/employeewellness and click the Health Risk Assessment and Resources link to get started. In the Lbqpk8Paeyxi menu, click Action Plans instead of Health Risk Assessment to access the Quit Smoking Action Plan. Additional smoking cessation resources are also available to all [facility] employees on the Ntxqu9Xkdkjf web page at www.[email or web address].com/quitsmoking. [employer] Tobacco Cessation Program If [employer] is your medical insurance provider, there are more free resources available to you, including: No copays or deductibles on local tobacco cessation counseling services to help you quit Prescription assistance for tobacco cessation medications to help you quit For details about the tobacco cessation program available to [employer] members, go to www.west cornwallMoviles.[email or web address].ANDalyze (Search: Tobacco Cessation Program). [place] Tobacco Quit Line 4-918-ABSC-NOW ( ) is a toll-free, telephonic service that helps [place] residents quit smoking and using tobacco. It is staffed by experts who tailor a quit plan for you and provide you with advice. [place] Tobacco Quit Line 4-449-MTHR-NOW ( ) is a toll-free, telephonic service that helps [place] residents quit smoking and using tobacco. It is staffed by experts who tailor a quit plan for you and provide you with advice. Two weeks of nicotine replacement therapy may be provided at no charge, if needed. Additional Resources These national organizations also offer free information and resources to help you quit tobacco: [place] [employer]--www.cancer.org/healthy/stayawayfromtobacco [place] Heart [employer]--www.heart.org (Search: Quit Smoking) Centers for Disease Control and Prevention--www.cdc.gov/tobacco [place] Lung [employer]--www.lungusa.org * Attachments The following attachments cannot be sent through Care Everywhere. * Hypothyroidism (underactive thyroid) (Cameroonian) documented in this encounterAshtabula General HospitalSnowman [id number] Procedure note [facility]09-19-2024 History of Present illness Narrative * [...] History: Diagnosis Date Allergies Anxiety Arthritis Asthma ([facility]) Cervical cancer ([facility]) COPD (chronic obstructive pulmonary disease) ([facility]) Depression ([facility]) History of medical problems knee scraping for knee replacement HTN (hypertension) ([facility]) Kidney disease Medications: Current Outpatient Medications: albuterol [...] Insecurity: No Food Insecurity (04/12/2024) Received from [facility] Hunger Screening Within the past 12 [...] Partner Violence: Unknown (12/11/2023) Re[facility] from [facility] [place] Safety [employer] Environment Fear of [...] through 10 MRI right ankle [facility] demonstrates findings of slight thickening [...] Patient may continue with conservative treatments including elan-nxz-bwohhcy anti- inflammatories and other treatments suggested today. Patient may want to be s cheduled for surgical intervention in the near future. Discussed right peroneal tendon repair and patient patient and may consider once all other medical issues are done with Cristobal Owens DPM documented in this encounterBarnes-Jewish Saint Peters [id number] Miscellaneous Notes* Telephone Encounter - Nat Vivar [...] not sure where * Telephone Encounter - Jairo Daley APRN-MICA MACHINE OPERATOR - 05/13/2024 12:33 PM EDT Her fall was several weeks ago. Was hospitalized. I recommend ER or urgent care visit. * Telephone Encounter - Natbuffy Vivar - 05/13/2024 12:33 PM EDT Patient notified and is going to the urgent care [facility] Telephone encounter Note* Telephone Encounter - Natbuffy [...] to be seen but not sure where [facility] Telephone encounter Note* Telephone Encounter - CARLITOS Haas - 05/13/2024 12:33 PM EDT Her fall was several weeks ago. Was hospitalized. I recommend ER or urgent care visit. [facility]07-25-2024 Telephone encounter Note* Telephone Encounter - Nat Vivar - 05/13/2024 12:33 PM EDT Patient notified and is going to the urgent care [facility] History of Present illness Narrative* CARLITOS Haas - 04/12/2024 9:40 AM EDT Images from the original note were not included. [address] [place] [id number] SUBJECTIVE: Patient ID: Robyn Thorpe is a 68 y.o. female. Chief Complaint Patient presents with Hypertension Depression Fibromyalgia Presents for follow up She would like a referral for screening colonoscopy. States she has not had baseline screening. Sheis requesting Dr. aHgan, GI. Is seen yearly by cardiology for [...] Diagnosis Date Allergic Asthma Back pain Cancer ([facility]) Chronic kidney disease Disease of thyroid gland [...] by mouth nightly. Chronic bronchitis with emphysema ([facility]) - TRELEGY ELLIPTA 100-62.5-25 mcg blister with [...] procedures Referring and communicating with other health intensive care medicine specialist (not separately reported) Follow-up: 4 months Fasting labs. Hypothyroid, fibromyalgia CARLITOS Haas 04/12/24 1052 documented in this encounterTogus [facility]03-28-2024 Miscellaneous Notes* Telephone Encounter - Isidra Alexis CMA - 01/15/2024 12:05 PM EDT They went to the wrong pharmacy documented in this encounterTogus [facility] Center03-28-2024 Telephone encounter Note* Telephone Encounter - Isidra Alexis CMA - 01/15/2024 12:05 PM EDT They went to the wrong pharmacy [facility] History of Present illness Narrative* CARLITOS Haas - 12/11/2023 9:40 AM EST Images from the original note were not included. [address] [facility] [id number] SUBJECTIVE: Patient ID: Robyn Thorpe is a [...] Diagnosis Date Allergic Asthma Back pain Cancer ([facility]) Chronic kidney disease Disease of thyroid gland [...] CARLITOS Haas 12/15/23 1730 documented in this encounterAshtabula General HospitalTrue Office [facility] Iron[facility] [id number] History of Present illness Narrative* Cristobal Owens DPM - 12/04/2023 4:00 PM EST Patient: Robyn [...] History: Diagnosis Date Allergies Anxiety Arthritis Asthma ([facility]) Cervical cancer ([facility]) COPD (chronic obstructive pulmonary disease) ([facility]) Depression ([facility]) History of medical problems knee scraping for knee replacement HTN (hypertension) ([facility]) Kidney disease Medications: Current Outpatient Medications: albuterol [...] patient Cristobal Owens DPM documented in this encounterBarnes-Jewish Saint Peters [id number] Chief Complaint: [...] mouth in the morning., Disp: , Rfl: rtqoqtymqzn-pdmknzazv-mgpivube 100-62.5-25 mcg blister with device, INHALE 1 [...] normal in s (more content not included)... [facility]01-29-2024 Miscellaneous Notes* Telephone Encounter - Hilario Hurst CMA - 11/17/2023 8:45 AM EST Patient called into office requesting Referral Tarun Owens [facility] for podiatry in [place] * Telephone Encounter - CARLITOS Haas - [...] 8:45 AM EST done documented in this encounterT[facility]01-29-2024 Telephone encounter Note* Telephone Encounter - Hilario Hurst CMA - 11/17/2023 8:45 AM EST Patient called into office requesting Referral Tarun Owens [facility] for [place]iatry in [place] [facility]01-29-2024 Telephone encounter Note* Telephone Encounter - CARLITOS Haas - 11/17/2023 8:45 AM EST I do need a reason (diagnosis is required) to why she wants a referral. [facility]01-29-2024 Telephone encounter Note* Telephone Encounter - Hilario Hurst CMA - 11/17/2023 8:45 AM EST Patient would like her toe nails trimmed, she stated that her hand strength isn't there to cut themherself anymore. [facility]01-29-2024 Telephone encounter Note* Telephone Encounter - CARLITOS Haas - 11/17/2023 8:45 AM EST done [facility]09-06-2023 NoteHTN remains uncontrolled therefore script to increase lisinopril to 10 mg daily. Repeat BMP in 1 week Reviewed labs from 06/19/23 and renal function, liver function and cholesterol are normal and well controlled K+ 5.0- will monitor Veronica Cheney NP Division of Cardiology, [facility] Ph- [phone] Pager- [phone] Email- [email or web address]09-14-2022 NotePROCEDURE: XR ANKLE RT MIN 3 VIEWS [...] Electronically authenticated by: YANELIS ENGEL Date: 2022-07-03 10:27[facility]06-15-2022 NotePROCEDURE: XR ANKLE RT MIN 3 VIEWS, [...] Electronically authenticated by: YANELIS ENGEL Date: 2022-04-03 15:51[facility]06-15-2022 NotePROCEDURE: XR ANKLE RT MIN 3 VIEWS, [...] Electronically authenticated by: YANELIS ENGEL Date: 2022-04-03 15:51[facility]05-20-2022 NotePROCEDURE: XR ELBOW RT MIN 3 VIEWS HISTORY: Pain ; right elbow pain and contusion after falling COMPARISON: None. FINDINGS: BONES:No fracture, acute abnormality, or significant arthropathy. SOFT TISSUES:No visible soft tissue swelling. EFFUSION:None visible. OTHER: Negative. IMPRESSION: 1. No acute bone abnormality. 2. Minimal degenerative changes. Electronically authenticated by: YANELIS ENGEL Date: 2022-03-08 12:09[facility]Evaluation [facility]* Diagnosis Renal calculus Calculus of kidney Gross hematuria documented in this encounter [facility] Work Phone: evaluation note* Diagnosis Renal calculus Calculus of kidney Gross hematuria documented in this encounter [employer] Phone: evaluation note* Diagnosis Renal calculus Calculus of kidney Gross hematuria documented in this encounter [employer] Phone: evaluation note* Diagnosis Renal calculus Calculus of kidney Pre-op testing Preoperative examination, unspecified Renal calculus Calculus of kidney documented in this encounter [employer] Phone: evaluation note* Diagnosis Renal calculus Calculus of kidney Pre-op testing Preoperative examination, unspecified Renal calculus Calculus of kidney documented in this encounter [employer] Phone: evaldepxcc note* Diagnosis DJD (degenerative joint disease), ankle and foot, right- Primary Other specified disorders of synovium, right ankle and foot Onychomycosis Dermatophytosis of nail Toe pain, bilateral documented in this encounter [facility] HealthcareEvaluation note* Diagnosis Microscopic hematuria documented in this encounter memloom noteNo assessment information available [facility] Work Phone: Evaluation note* Diagnosis Peroneal tendon tear, right, initial encounter- Primary Onychomycosis Dermatophytosis of nail Toe pain, bilateral documented in this encounter [facility] HealthcareEvaluation note* Diagnosis Benign essential HTN- Primary Nonrheumatic mitral valve regurgitation documented [facility] this encounter [facility]* Diagnosis Benign essential HTN- Primary Obesity, morbid ([facility]) Morbid obesity documented in this encounter [facility]* Diagnosis Primary insomnia Persistent disorder of initiating or maintaining sleep documented in this encounter [facility]* Diagnosis Hx of onychomycosis- Primary documented in this encounter [facility]* Diagnosis Fibromyalgia Unspecified myalgia and myositis documented in this encounter [facility]* Diagnosis Benign essential HTN- Primary Anxiety and depression Arthritis, multiple joint involvement Unspecified arthropathy, multiple sites Fibromyalgia Unspecified myalgia and myositis Acquired hypothyroidism Unspecified hypothyroidism Primary insomnia Persistent disorder of initiating or maintaining sleep Chronic bronchitis with emphysema ([facility]) Obstructive chronic bronchitis without exacerbation Special screening for malignant neoplasm of colon Special screening for malignant neoplasms, colon documented in this encounter [facility]* Diagnosis Acquired hypothyroidism- Primary Unspecified hypothyroidism Panlobular emphysema (CMS-HCC) Other emphysema Obesity, morbid ([facility]) Morbid obesity Need for hepatitis C screening test Special screening examination for other specified viral diseases Arthritis, multiple joint involvement Unspecified arthropathy, multiple sites Anxiety and depression Fibromyalgia Unspecified myalgia and myositis Benign essential HTN documented in this encounter [facility]* Diagnosis Chronic bronchitis with emphysema (CMS-HCC) Obstructive chronic bronchitis without exacerbation Arthritis, multiple joint involvement Unspecified arthropathy, multiple sites Anxiety and depression Fibromyalgia Unspecified myalgia and myositis Acquired hypothyroidism Unspecified hypothyroidism Benign essential HTN Primary insomnia Persistent disorder of initiating or maintaining sleep documented in this encounter [facility]* Diagnosis Chronic bronchitis with emphysema ([facility]) Obstructive chronic bronchitis without exacerbation Arthritis, multiple joint involvement Unspecified arthropathy, multiple sites Anxiety and depression Fibromyalgia Unspecified myalgia and myositis Acquired hypothyroidism Unspecified hypothyroidism Benign essential HTN Primary insomnia Persistent disorder of initiating or maintaining sleep History of kidney stones documented [facility] this encounter [facility]* Diagnosis Fibromyalgia- Primary Unspecified myalgia and myositis Need for influenza vaccination Need for prophylactic vaccination and inoculation against influenza Arthritis, multiple joint involvement Unspecified arthropathy, multiple sites Anxiety and depression Acquired hypothyroidism Unspecified hypothyroidism Benign essential HTN Primary insomnia Persistent disorder of initiating or maintaining sleep Chronic bronchitis with emphysema ([facility]) Obstructive chronic bronchitis without exacerbation Mixed hyperlipidemia Screening for diabetes mellitus (DM) Screening for diabetes mellitus documented in this encounter [facility]* Diagnosis Medicare annual wellness visit, subsequent- Primary COPD exacerbation ([facility]) Obstructive chronic bronchitis with exacerbation documented in this encounter [facility]* Diagnosis Benign essential HTN- Primary Arthritis, multiple joint involvement Unspecified arthropathy, multiple sites Fibromyalgia Unspecified myalgia and myositis Acquired hypothyroidism Unspecified hypothyroidism Primary insomnia Persistent disorder of initiating or maintaining sleep Chronic bronchitis with emphysema ([facility]) Obstructive chronic bronchitis without exacerbation History of depression Personal history of other mental disorder documented in this encounter [facility]* Diagnosis Renal calculus Calculus of kidney documented in this encounter [facility] HealthEvaluation note* Diagnosis Gross hematuria Mixed incontinence Mixed incontinence urge and stress (male)(female) Incomplete bladder emptying documented in this encounter [facility] HealthHistory and physical note Author Wanda Hagan [facility] July 21, 2024 8:40amNote Date/TimeOct2023 8:40am[place] [address] Gastroenterology H&P Signed Patient: Robyn Thorpe MR#: [id number] : 1955 Acct:[id number] Age/Sex: 68 / F Adm Date: 4 Loc: Room: Type: [facility] Attending Dr: Wanda Hagan MD Copies [...] Wanda Hagan MD> 07/21/24 0840 [facility] Work Phone: InstructionsNot on filedocumented in this encounter [facility] SystemInstructionsNot on filedocumented in this encounter [facility] SystemInstructionsNot on filedocumented in this encounter [facility] SystemInstructions* Attachments The following attachments cannot be sent through Care Everywhere. * Hypothyroidism (underactive thyroid) (Cameroonian) documented in this encounterProMedica Health SystemInstructions* Attachments The following attachments cannot be sent through Care Everywhere. * Depression (Cameroonian) * Fibromyalgia (Cameroonian) documented in this encounterProMedica Health SystemInstructionsNot on file documented in this encounterProMedica Health SystemInstructionsNot on file documented in this encounterProMedica [facility] SystemInstructions* Attachments The following attachments cannot be sent through Care Everywhere. * COPD Diet (Cameroonian) * COPD Exacerbation, Adult ED (Cameroonian) documented in this encounterProMedica Health SystemInstructions* Attachments The following attachments cannot be sent through Care Everywhere. * Hypothyroidism (Underactive Thyroid) Discharge Instructions (Cameroonian) * Chronic Knee Pain (Cameroonian) * Controlling your blood pressure through lifestyle (Cameroonian) documented in this encounterProSelect Medical [facility], In[facility] Ironwood HospitalReason for referral (narrative)* Consultation (Routine) - Pending ReviewSpecialtyDiagnoses / ProceduresReferred By ContactReferred To ContactPodiatry Diagnoses Hx of onychomycosis Jairo Daley APRN-CNP [address] [place] [address] Cristobal Owens DPM [address] [address] Referral IDStatusReasonStart DateExpiration DateVisits RequestedVisits [id number] Review Specialty Services Required / [facility] CenterRekyra for referral (narrative)* Consultation (Routine) - Pending ReviewSpecialtyDiagnoses / ProceduresReferred By ContactReferred To ContactGastroenterology Diagnoses Special screening for malignant neoplasm of colon Jairo Daley APRN-CNP [address] [place] [address] Wanda Hagan MD [address] [facility], [address] [address] Referral IDStatusReasonStart DateExpiration DateVisits RequestedVisits [id number] Review Specialty Services Required [facility] CenterRedo[facility] for referral (narrative)No reason for referral information availableSelect Medical Specialty [facility] Work Phone: Summary Purpose Family History No [...] & PELVIS W/O CONTRST 1/> [place] [id number] - CHG CT ABDOMEN & PELVIS W/O CONTRST 1/> BODY RE Jason Dominguez MD [address] [facility], [address] [place] [address] Referral IDStatusReasonStart DateExpiration DateVisits RequestedVisits [id number] / Procedures Referred By ContactReferred To ContactCardiology Diagnoses Renal calculus Pre-op testing Procedures EKG 12 Lead Adele Black, WASHING TUB OPERATOR - MICA MACHINE OPERATOR [address] [facility] [address] [place] [address] Referral IDStatusReasonStart DateExpiration DateVisits RequestedVisits [id number]/ Chief Complaint and Reason for Visit Chief Complaint Screening Screening Chief Complaint Admit Date Benign Essential HTN, MV regurgitation F ebruary 2024 2:55pm Reason for Visit Admit Date Essential (primary) hypertension r 2024 2:55pm Tobacco use disorder, continuous y 2024 2:55pm Left ventricular hypertrophy due to hype rtensive disease December 15, 2024 2:55pm Atypical chest pain December 15, 2024 2:55pm Chief Complaint Admit Date Benign Essential HTN, MV regurgitation F ebruary 2024 2:55pm I10, R07.89, R94.31 December 15, 2024 3:00pm Chief Complaint Admit Date Benign Essential HTN, MV regurgitation F ebruary 2024 2:55pm I10, R07.89, R94.31 December 15, 2024 3:00pm R07.89 R94.31 January 21, 2025 8:30 am R07.89 R94.31 January 21, 2025 10:2 6am Chief Complaint Admit Date 5 month July 05, 2025 9:12am Reason for Visit Admit Date Essential (primary) hypertension Septemb er 2024 9:12am Tobacco use disorder, continuous Septemb er 2024 9:12am Left ventricular hypertrophy due to hype rtensive disease July 05, 2025 9:12am Atypical chest pain July 05, 2025 9:12am Additional Source Comments INFORMATION SOURCE (unrecogn ized section and content) DATE CREATED AUTHOR 09/22/2022 [facility] DATE CREATED AUTHOR AUTHOR'S ORGANIZ ATION 03/03/2023 [facility] DATE CREATED AUTHOR AUTHOR'S ORGANIZ ATION 12/19/2023 [facility] DATE CREATED AUTHOR AUTHOR'S ORGANIZ ATION 06/15/2024 [facility] DATE CREATED AUTHOR AUTHOR'S ORGANIZ ATION 07/10/2024 [facility] DATE CREATED AUTHOR AUTHOR'S ORGANIZ ATION 12/18/2024 [facility] DATE CREATED AUTHOR AUTHOR'S ORGANIZ ATION 06/25/2025 [facility] DATE CREATED AUTHOR AUTHOR'S ORGANIZ ATION 07/08/2025 [facility] DATE CREATED AUTHOR AUTHOR'S ORGANIZ ATION 09/01/2025 [facility] Care Teams (unrecognized sec tion and content) Team Status: Active Member Role Status Dates LINDA Haas Primary Care Provider Active Team Status: Inactive Member Role Status Dates LINDA Haas Primary Care Provider Active Start: December 15, 2024 End: December 15, 2024GeorColt Dias ProviderActive Start: December 15, 2024 End: December 15, 2024 Team Status: Active Member Role Status Dates Jairo J Daley , [employer]C Primary Care Provider Active Start: December 15, 2024 Hay Rea COLTENttending ProviderActiveStart: December 15, 2024 Team MemberRelationshipSpecialtyStart DateEnd Date Jairo Daley, WASHING TUB OPERATOR - MICA MACHINE OPERATOR [address], [place] [address] PCP - [facility]12/12/22Team MemberRelationshipSpecialtyStart DateEnd Date Jairo Daley, WASHING TUB OPERATOR - MICA MACHINE OPERATOR [address], [place] [address] PCP - [facility]12/12/22Team MemberRelationshipSpecialtyStart DateEnd Date Jairo Daley, WASHING TUB OPERATOR - MICA MACHINE OPERATOR [address], [place] [address] PCP [facility]12/12/22Team MemberRelationshipSpecialtyStart DateEnd Date Jairo Daley, WASHING TUB OPERATOR - MICA MACHINE OPERATOR [address], [place] [address] PCP - [facility]12/12/22Team MemberRelationshipSpecialtyStart DateEnd Date Jairo Daley, WASHING TUB OPERATOR - MICA MACHINE OPERATOR [address], [place] [address] PCP - [facility]12/12/22 Team Status: Active Member Role Status Dates Sid Seth DO Attending Provider Active Sta rt: April 26, 2024 Team Status: Inactive Member Role Status Dates Wanda Hagan MD Attending Provider Active Start: July 21, 2024 End: July 21, 2024NIKO [facility]CP[facility] Care ProviderActiveStart: July 21, 2024 End: July 21, 2024 Team Status: Active Member Role Status Dates Wanda Hagan MD Attending Provider, Other Provider Active Start: July 21, 2024 Jairo Daley GLOBAL MARKETING INTERN-[facility] Care ProviderActiveStart: July 21, 2024 Team MemberRelationshipSpecialtyStart DateEnd Date Unallocated, Shania Cabrera MD [address] [place] [address] [facility] Jairo Daley CRNP [address] [place] [address] Referring PhysicianNurse Practitioner07/08/24Team MemberRelationshipSpecialty Start DateEnd Date Unallocated, Shania Cabrera MD [address] [place] [address] PCP - [facility]07/08/24 Jairo Daley CRNP [address] [place] [address] Referring PhysicianNurse Practitioner07/08/24Team MemberRelationshipSpecialty Start DateEnd Date Jairo Daley, WASHING TUB OPERATOR-MICA MACHINE OPERATOR [address] [place] [address] [facility]/20/22Team MemberRelationshipSpecialtyStart DateEnd Date Jairo Daley, WASHING TUB OPERATOR-MICA MACHINE OPERATOR [address] [place] [address] [facility]/22Team MemberRelationshipSpecialtyStart DateEnd Date Jairo Daley, WASHING TUB OPERATOR-MICA MACHINE OPERATOR [address] [place] [address] PCP - [facility]02/20/22Team MemberRelationshipSpecialtyStart DateEnd Date Jairo Daley, WASHING TUB OPERATOR-MICA MACHINE OPERATOR [address] [place] [address] PCP - GeneralFamily Medicine02/20/22Team MemberRelationshipSpecialtyStart DateEnd Date Jairo Daley, WASHING TUB OPERATOR-MICA MACHINE OPERATOR [address] [place] [address] PCP - [facility]02/20/22Team MemberRelationshipSpecialtyStart DateEnd Date Jairo Daley, WASHING TUB OPERATOR-MICA MACHINE OPERATOR [address] [place] [address] PCP - [facility]02/20/22Team MemberRelationshipSpecialtyStart DateEnd Date Jairo Daley, WASHING TUB OPERATOR-MICA MACHINE OPERATOR [address] [place] [address] PCP - [facility]02/20/22Team MemberRelationshipSpecialtyStart DateEnd Date Jairo Daley, WASHING TUB OPERATOR-MICA MACHINE OPERATOR [address] [place] [address] PCP - GeneralFamily Medicine02/20/22Team MemberRelationshipSpecialtyStart DateEnd Date Jairo Daley, WASHING TUB OPERATOR-MICA MACHINE OPERATOR [address] [place] [address] PCP - [facility]02/20/22Team MemberRelationshipSpecialtyStart DateEnd Date Jairo Daley, WASHING TUB OPERATOR-[facility] [address] [place] [address] PCP - [facility]02/20/22Team MemberRelationshipSpecialtyStart DateEnd Date Jairo Daley, WASHING TUB OPERATOR-[facility] [address] [place] [address] PCP - [facility]02/20/22Team MemberRelationshipSpecialtyStart DateEnd Date Jairo Daley, WASHING TUB OPERATOR-[facility] [address] [place] [address] PCP - [facility]02/20/22Team MemberRelationshipSpecialtyStart DateEnd Date Jairo Daley, WASHING TUB OPERATOR-[facility] [address] [place] [address] PCP - [facility]02/20/22 Team Status: Inactive Member Role Status Dates Jairo Daley NP-C Primary Care Provider Active Start: January 21, 2025 End: January 21, 2025GeorColt Dias Provider, Referring ProviderActiveStart: January 21, 2025 End: January 21, 2025 Team Status: Active Member Role Status Dates Jairo Daley NP-C Primary Care Provider Active Start: January 21, 2025 Hay Lower [place]a Koromia , MDAttending Provider, Referring Provider, Other ProviderActiveStart: January 21, 2025 Team Status: Inactive Member Role Status Dates LINDA Haas Primary Care Provider Active Start: July 05, 2025 End: July 05, 2025Georwhit Lower ElwhaColt Hernandez ProviderActive Start: July 05, 2025 End: July 05, 2025 Team Status: Active Member Role Status Dates LINDA Haas Primary Care Provider Active Start: July 05, 2025 Colt Ham ProviderActiveStart: July 05, 2025 Team Status: Inactive Member Role Status Dates LINDA Haas Primary Care Provider Active Start: July 05, 2025 End: July 05, 2025Colt Ham ProviderActiveStart: July 05, 2025 End: July 05, 2025Team MemberRelationshipSpecialtyStart DateEnd Date Jairo Daley APRN - TESS PCP - General12/12/22Team MemberRelationshipSpecialtyStart DateEnd Date Jairo Daley APRN - CNP PCP - General12/12/22 Reason for Visit (unrecogniz ed section and content) SpecialtyDiagnoses / ProceduresReferred By ContactReferred To ContactRadiology Diagnoses Renal calculus Gross hematuria Renal Calculus [N20.0] Gross Hematuria [R31.0] Procedures CT UROGRAM CHG CT ABDOMEN & PELVIS W/O CONTRST 1/> [place] [id number] - CHG CT ABDOMEN & PELVIS W/O CONTRST 1/> BODY RE Jason Dominguez MD [address] [place] [address], [address] [place] [address] Referral IDStatusReasonStart DateExpiration DateVisits RequestedVisits [id number] Foot CareDm Nails/ fungusSpecialtyDiagnoses / ProceduresReferred By ContactReferred To Contact Podiatry Diagnoses Hx of onychomycosis Procedures AMB REFERRAL TO PODIATRY Jairo Daley CRNP [address] [place] [address] Cristobal Owens DPM [address] [place] [address] Referral IDStatusReasonStart DateExpiration DateVisits RequestedVisits [id number]/[id number]//[id number] CareNON DM NAIL CAREReasonCommentsHypertensionReasonCommentsMed RefillReasonCommentsHypertension DepressionFibromyalgiaReasonOnset DateCommentsMed [id number] DateCommentsMed [id number]dismfibroReasonComments Annual ExammedicareReasonCommentscv Goals (unrecognized section and content) [...] BE BASED ON THE PRIMARY CLINICAL RECORDS. [facility] [employer] [facility]. provides no warranty or guarantee of the accuracy or completeness of information in this document.
[2025-09-06] MEDS: ALBUTEROL SULFATE 2.5 MG/3 ML VIAL NEB IH (11:47)
--- NOTE | 2025-09-06 12:24 | CT_ITS ---
The [address] [address] Patient Name: FRANKO NUNEZ MRN: [id number] date: 1955 Sex: F Assigned Patient Location: CARD Current Patient Location: CARD Accession/Order Number: [id number] Exam Date: 09/06/2025 12:31 Report Date: 09/06/2025 19:41 At the request of: FAN HOWARD DO Procedure: CT lung screening low-dose CT Chest lung screening without contrast TECHNIQUE: Axial imaging with 2-D reconstruction. The CT exam was performed using one or more the following dose reduction techniques: Automated exposure control, adjustment of the MA and/or Kv according to patient size, or use of the iterative reconstruction technique. History: 59 pack-year smoking history COMPARISON: None THYROID: Unremarkable TRACHEA AND BRONCHI: Patent ESOPHAGUS: Unremarkable. HEART: Within normal limits PERICARDIAL EFFUSION: None CORONARY ARTERY CALCIFICATION: Present MEDIASTINUM: No adenopathy. No pneumoperitoneum. No mediastinal hematoma. PULMONARY ALISIA: No hilar mass or adenopathy is seen. THORACIC AORTA Unremarkable LUNG NODULE . Tiny 3 mm nodule is unchanged. No enlarging or new nodules. LUNGS: Emphysema PLEURAL EFFUSION: None PNEUMOTHORAX: No pneumothorax seen. CHEST WALL: No abnormality AXILLA:Unremarkable BONY STRUCTURES Intact UPPER ABDOMEN: Images of the upper abdomen are noncontributory. CT/CT lung screening low-dose IMPRESSION: No visible lung nodule. FINAL ASSESSMENT: Benign behavior/appearance Lung-RADS Version 1.0 Assessment Category: 2 REMARKS: Continued annual screening with LDCT in 12 months is recommended. Impression dictated by: Rj Pappas M.D. 09/06/2025 7:41 PM Dictation Location: [place] Electronically authenticated by: [id number] Y Date: 09/06/2025 19:41
== END 2025-09-06 10:24 | disposition home or self-care (01) ==
LOC: CARD 10:23
PROVIDERS: PCP Nurse Practitioner; Visit Provider Internal Medicine
DX: J43.2 Centrilobular emphysema (principal); Z12.2 Encounter for screening for malignant neoplasm of respiratory organs; R94.2 Abnormal results of pulmonary function studies; F17.219 Nicotine dependence, cigarettes, with unspecified nicotine-induced disorders
CPT/HCPCS: 71271; 94060; 94726; 94729; 99407

== ENCOUNTER 2025-09-22 12:50 | Outpatient (OUT) | payer MEDICARE, MEDICAID, SELFPAY ==
--- OUTSIDE RECORDS SUMMARY | 2025-09-22 13:01 | XMS_ITS | CCD ---
Author Organization [facility] Care Team Providers Care Director Weights And Measures Name Role Phone RANDAL ORTIZ Attending Unavailable Daley MANAGER CHANGE - INTERNET SALESPERSON, Jairo J Primary Care [facility] ider BRAULIO LASSITER Consulting Unavailable AJIT ., [...] Care Unavailable PRANAV TRINIDAD Attending Unavailable Daley MANAGER CHANGE - INTERNET SALESPERSON, Jairo J Primary Care Prov ider CRISTOBAL OWENS Attending Unavailable EDI, JAIRO Referring Unavailable CRISTOBAL OWENS Attending Unavailable CRISTOBAL OWENS Attending Unavailable CRISTOBAL OWENS Attending Unavailable CRISTOBAL OWENS Attending Unavailable MD Wanda Hagan Attending Provider [phone] Edi, JACOB-C Jairo Cabrera Primary Care Provider Jairo Spears Unavailable [phone] Unallocated Shania ISRAEL Provider Primary Care Provi nabeel Edi MANAGER CHANGE-Jairo PULIDO Primary Care Provid er Edi ORE FEEDER-CJairo Primary Care Provider Hay Rea MD Attending [...] DALEY, JAIRO J Primary Care Unavailable Daley ORE FEEDER-C, Jairo Cabrera Primary Care Provider Hay Rea MD Attending Provider Hay Rea MD Referring Provider Daley MANAGER CHANGE-INTERNET SALESPERSON, Jairo Moore Primary Care Unavailable Imtiaz Garvin Attending Unavailable Daley MANAGER CHANGE-INTERNET SALESPERSON, Jairo Moore Primary Care Unavailable Bertram DPM, Brant Sun Attending Unavailab le Daley MANAGER CHANGE-INTERNET SALESPERSON, Jairo Moore Primary Care Unavailable Bertram DPM, Brant Sun Attending Unavailab le Bertram DPM, Brant Sun Admitting Unavailab le Geckle MANAGER CHANGE-INTERNET SALESPERSON, Jayda Patel Attending Unavailable Daley MANAGER CHANGE-INTERNET SALESPERSON, Jairo Moore Primary Care Unavailable Daley MANAGER CHANGE-INTERNET SALESPERSON, Jairo Moore Primary Care Unavailable Bertram DPM, Brant Sun Attending Unavailab le Laudick PA-C, Nat Zaman Attending Unava ilable Daley MANAGER CHANGE-INTERNET SALESPERSON, Jairo Oscar Primary Care Unavailable Daley MANAGER CHANGE-INTERNET SALESPERSON, Jairo Oscar Primary Care Unavailable Imtiaz Garvin Attending Unavailable Daley MANAGER CHANGE-INTERNET SALESPERSON, Jairo Oscar Primary Care Unavailable Bertram DPM, Brant Sun Attending Unavailab le Bertram DPM, Brant Sun Attending Unavailab le Daley MANAGER CHANGE-INTERNET SALESPERSON, Jairo Moore Primary Care Unavailable Bertram DPM, Brant Sun Attending Unavailab le Daley MANAGER CHANGE-INTERNET SALESPERSON, Jairo Oscar Primary Care Unavailable Bertram DPM, Brant Sun Attending Unavailab le Daley MANAGER CHANGE-INTERNET SALESPERSON, Jairo Oscar Primary Care Unavailable Imtiaz Garvin Attending Unavailable Bertram DPM, Brant Sun Attending Unavailab le Bertram DPM, Brant Sun Attending Unavailab le Daley MANAGER CHANGE-INTERNET SALESPERSON, Jairo Moore Primary Care Unavailable Daley ORE FEEDER-C, Jairo Cabrera Primary Care Provider Hay Rea MD Attending Provider Chantale Cardona MD Attending Provider [phone] Jairo Daley Primary Care Unavailable Chantale Cardona Admitting Unavailable Chantale Cardona Attending Unavailable aJiro Daley Primary Care Unavailable Koromia, Hay Yang Admitting Unavai lable Koromia, Hay Yang Attending Unavai lable Koromia, Hay Yang Referring Unavai labJairo Richards Primary Care Unavailable Veronicaombindu, Hay Yang Admitting Unavai lable Koromia, Hay Yang Attending Unavai lable Asaad, Imad Admitting Unavailable Asaad, Imad Attending Unavailable Jairo Daley Primary Care Unavailable Edi MANAGER CHANGE - INTERNET SALESPERSONJairo Primary Care Prov ider JAIRO DALEY Primary Care Unavailable FILIBERTO SOW Referring Unavailable JAIRO DALEY Primary Care Unavailable JASON DOMINGUEZ Referring Unavailable JAIRO DALEY Primary Care Unavailable JUVENCIO RUELAS Referring Unavailable JAIRO DALEY Primary Care Unavailable JUVENCIO RUELAS Referring Unavailable Allergies Allergy ClassificationReported Allergen(s)Allergy TypeDate of OnsetReaction(s) Facility (8 sources)Silicone adhesive tapePropensity to adverse reactions to drug 26-11-0281[facility]zgmM[facility]UVC[facility] ([facility] source)bee venomDrug allergy (disorder)53-14-0518Yal [facility] (1 source)LatexDrug allergy (disorder)[facility] (4 sources)Honey bee venomAllergy to ibphwdkmh98-01-3231BwgblljvopqTSZH Healthcare (13 sources)Lisinopril; Translations: [LISINOPRIL]Propensity to adverse ovbvyecci50-99-8185KajgeFETV Healthcare (4 sources)Attends Briefs SmallDrug Lsemqpslkwa91-39-2391UyjlFVDE Healthcare (16 sources)Adhesive agent; Translations: [ADHESIVE]Propensity to adverse reactions to drug (disorder)90-77-4652BtisVtyUufbjf Repository (16 sources)BEE VENOM PROTEIN (HONEY BEE); Translations: [BEE VENOM PROTEIN (HONEY BEE)]Propensity to adverse reactions to drug (disorder)01-27-2013 [facility] (16 sources)LisinoprilDrug Icdwiew13-11-5008VfwxiEGTIn[facility] (6 sources)venom-honey bee; Translations: [venom-honey bee]Allergy to substance 79-86-9387CninsqlzxtiNnmgicfmrSelect [facility] (1 source)Adhesive Tape; Translations: [Tape]Propensity to adverse reactions (disorder)[facility] [place] [facility] (1 source)Bee/Wasp/Ant venom; Translations: [Bee Stings]Propensity to adverse reactions (disorder)[facility] [place] [facility] (1 source)LisinoprilDrug Dxlsdzj64-15-7108ZcgfyhvvtSelect Medical [facility] RepositoryNEGATED: Highlighted row has been ruled out! (8 sources)OtherPropensity to adverse -79-2474[facility] Medications Current Medications MedicationDrug Class(es)DatesSig (Normalized)Sig (Original)acetaminophen 500 mg / HYDROcodone bitartrate 7.5 mg oral tablet (8 sources)Opioid Agonisttake 1 tablet by mouth once as needed, then take 1 tablet by mouth every four hours as neededhydrocodone-acetaminophen (LORTAB) 7.5-500 MG per tablet Take 1 tablet by mouth. 1 tab Q 4 hrs PRN [id number] 200 actuat albuterol 0.09 mg/actuat metered dose inhaler (20 sources)beta2-Adrenergic AgonistStart: 12-46-8764Sokpo: 62-87-4564kcrr 2 puff(s) by inhalation every four hours as needed for wheezingalbuterol sulfate HFA (PROVENTIL;VENTOLIN;PROAIR) 108 (90 Base) MCG/ACT inhaler INHALE 2 PUFFS EVERY 4 HOURS NEEDED FOR WHEEZING OR SHORTNESS OF BREATH 03/03/2023 Active Start: 03-03-2023 End: 60-79-3914vjlu 2 puff(s) by inhalation every four hours as needed for wheezingalbuterol (PROVENTIL HFA;VENTOLIN HFA) 90 mcg/actuation inhaler Indications: Chronic bronchitis with emphysema ([facility]) Inhale 2 puffs every 4 (four) hours as needed for wheezing or shortness of breath. 18 g 6 01/15/2024 ActiveStart: 10-85-7335zmjl 2 puff(s) by mouth every six hours as needed albuterol HFA 90 mcg/act inhaler TAKE TWO PUFFS BY MOUTH EVERY 6 HOURS NEEDED 03/03/2023 Activetake 2 puff(s) by inhalation four times daily as needed ALBUTEROL IN Inhale into the lungs. 2 puffs 4 times a day PRN 0 ActiveamLODIPine 10 mg oral tablet (3 sources)Dihydropyridine Calcium Channel BlockerStart: 43-21-1692fzrt 1 tablet by mouth once dailyatomoxetine 25 mg oral capsule (3 sources)Norepinephrine Reuptake InhibitorStart: 70-97-3486ebac 1 capsule by mouth once dailyatomoxetine (STRATTERA) 25 MG capsule Take 1 capsule by mouth daily. 30 capsule 11 02/06/2012 Activeazithromycin 250 mg oral tablet (1 source)Macrolide AntimicrobialStart: 09-13-2024 End: 48-50-5164zxatbzatygfu (ZITHROMAX) 250 mg tablet Indications: COPD exacerbation (CMS-HCC) Take 2 tablets the first day, then 1 tablet daily for 4 days. 6 tablet 09/13/2024 09/17/2024 Activediclofenac sodium 75 mg delayed release oral tablet (20 sources)Nonsteroidal Anti-inflammatory DrugStart: 21-91-3998mqfs 1 tablet by mouth twice dailydiclofenac (VOLTAREN) 75 MG EC tablet Take 1 tablet by mouth 2 times daily 07/10/2025 ActiveStart: 08-20-2023 End: 62-81-7681wwid 1 tablet by mouth twice dailyStart: 56-41-4292bkrv 1 tablet by mouth in the morningdiclofenac (VOLTAREN) 75 MG EC tablet diclofenac sodium 75 mg tablet,delayed release TAKE 1 TABLET BY MOUTH IN THE MORNING AND 1 TABLET BEFORE BEDTIME 0 11/17/2022 Crlwqejar090504 0.3 ml EPINEPHrine 1 mg/ml auto-injector (20 sources)alpha-Adrenergic Agonist, beta-Adrenergic Agonist, Catecholamine Start: 01-16-2023 End: 37-70-6694FCOMFFGgvie (EPIPEN) 0.3 mg/0.3 mL auto-injector USE DIRECTED FOR BEE STINGS 2 each 3 Discontinued (Therapy completed) Start: 37-25-3631GWLKBKPqgbn (EPIPEN 2-ROSALINDA) 0.3 MG/0.3ML DANIELLE injection Inject 0.3 mLs into the muscle once as needed for 1 dose. 1 Device 1 02/07/2012 Active esomeprazole 40 mg delayed release oral capsule (5 sources)Proton Pump InhibitorStart: 78-81-4040jltq 1 capsule by mouth once daily before breakfastesomeprazole (NEXIUM) 40 MG capsule Take 1 capsule by mouth every morning (before breakfast). 30 capsule 5 02/07/2012 ActiveFLUoxetine 10 mg oral capsule (20 sources)Serotonin Reuptake InhibitorStart: 85-45-6943iaww 1 capsule by mouth once dailyFLUoxetine (PROZAC) 10 MG capsule Take 1 capsule by mouth daily 05/25/2025 ActiveStart: 08-03-2023 End: 91-79-4640jhzo 1 capsule by mouth once dailyStart: 91-34-0283xmbo 1 capsule by mouth once dailyFLUoxetine (PROZAC) 10 MG capsule fluoxetine 10 mg capsule TAKE 1 CAPSULE (10 MG TOTAL) BY MOUTH NIGHTLY. 0 09/04/2022 Active Rgblhoibpse-Idbftabyx-Imcvigqb (20 sources)Anticholinergic, Corticosteroid, beta2-Adrenergic AgonistStart: 80-76-4479Gxbxv: 54-42-4048Zdzfsbgzljs-Umeclidin-Vilanter (Trelegy Ellipta) 100-62.5-25 mcg blister with device Active 1 INH INHALATION Once December 14, 2024 1:00amStart: 59-30-7586Rsomvbmfnqz-Umeclidin-Vilanter (Trelegy Ellipta) 100-62.5-25 mcg blister with device Active 1 INH INHALATION Once December 14, 2024 12:00amStart: 08-20-2023 End: 37-91-3721yvmi 1 puff(s) by mouth once dailyTRELEGY ELLIPTA 100-62.5-25 mcg blister with device Indications: Chronic bronchitis with emphysema (CMS-HCC) INHALE 1 PUFF BY MOUTH EVERYDAY *RINSE MOUTH AFTER USE* Strength: 100-62.5-25 mcg 28 each 6 12/16/2024 Activegabapentin 300 mg oral capsule (20 sources)Anti-epileptic AgentStart: 73-21-1082krlm 1 capsule by mouth twice dailyStart: 08-20-2023 End: 93-58-7878ptlw 1 capsule by mouth once daily in the morninggabapentin (NEURONTIN) 100 mg capsule Indications: Fibromyalgia TAKE 1 CAPSULE BY MOUTH EVERY MORNING AND AFTERNOON 180 capsule 1 12/16/2024 ActiveStart: 10-28-2022 End: 68-15-8486ntfn 1 capsule by mouth at bedtimegabapentin (NEURONTIN) 300 MG capsule Take 1 capsule by mouth in the morning and at bedtime. 10/28/2022 Active levothyroxine sodium 0.025 mg oral tablet (20 sources)l-ThyroxineStart: 12-15-2023 End: 55-95-2065nigf 1 tablet by mouth once dailyStart: 10-02-2023 End: 26-57-5865kjkg 1 tablet by mouth in the morninglevothyroxine (SYNTHROID, LEVOTHROID) 50 MCG tablet Indications: Acquired hypothyroidism TAKE 1 TABLET BY MOUTH IN THE MORNING 90 tablet 1 10/02/2023 12/15/2023 Discontinued (Reorder) lisinopril 10 mg oral tablet (6 sources)Angiotensin Converting Enzyme InhibitorStart: 06-25-2023 End: 84-17-0602ffwu 1 tablet by mouth in the morninglisinopril 10 MG tablet Take 10 mg by mouth in the morning. 06/25/2023 Activelosartan potassium 100 mg oral tablet (20 sources)Angiotensin 2 Receptor BlockerStart: 11-03-2024 End: 13-34-3063esaz 1 tablet by mouth once dailyStart: 07-03-2023 End: 72-95-1998fpgj 1 tablet by mouth once dailyLosartan 25 [...] oral tablet (20 sources)beta-Adrenergic BlockerStart: 10-31-2022 End: 00-54-4412vrcv 1 tablet by mouth twice dailymetoprolol tartrate (LOPRESSOR) 25 MG tablet metoprolol tartrate 25 mg tablet TAKE 1 TABLET BY MOUTH TWICE A DAY 10/31/2022 Activenitroglycerin 0.4 mg sublingual tablet (20 sources)Nitrate VasodilatornitroGLYCERIN (NITROSTAT) 0.4 MG SL tablet nitroglycerin 0.4 mg sublingual tablet DISSOLVE 1 TABLETUNDER TONGUE NEEEDED Activepropylthiouracil 50 mg oral tablet (14 sources)Thyroid Hormone Synthesis InhibitorStart: 10-31-2022 End: 75-63-8760aibhtzffbnvldkdn (PTU) 50 MG tablet propylthiouracil 50 mg tablet TAKE 1 TABLET BY MOUTH IN THE MORNING, 1 TABLET AT NOON, 1 TABLET BEFORE BEDTIME 10/31/2022 Activetamsulosin hydrochloride 0.4 mg oral capsule (1 source)alpha-Adrenergic BlockerStart: 32-09-5898lmjj 1 capsule by mouth once daily in the eveningtamsulosin (FLOMAX) 0.4 MG capsule Take 1 capsule by mouth every evening 30 capsule 1 07/18/2025 Activetiotropium (5 sources)AnticholinergicTiotropium Bartlett Monohydrate (SPIRIVA HANDIHALER IN) Inhale into the lungs daily. 0 ActivetraMADol hydrochloride 50 mg oral tablet (17 sources)Opioid AgonistStart: 08-10-2024 End: 97-53-5801esvp 1 tablet by mouth every six hours as neededStart: 01-14-2023 End: 17-03-3320qjps 1 tablet by mouth every eight hours as needed for pain traMADoL (ULTRAM) 50 mg tablet Indications: Arthritis, multiple joint involvement Take 1 tablet (50mg total) by mouth every 8 (eight) hours as needed for pain for up to 10 days. 20 tablet 0 12/11/2023 12/21/2023 ActiveUNABLE TO FIND (5 sources)UNABLE TO FIND Epi pen PRN 0 Active Completed/Discontinued Medications MedicationDrug Class(es)DatesSig (Normalized)Sig (Original)[id number]-Exz Cur-Hojr-Vwj-Asb-C (6 sources)Osmotic Laxative, Vitamin CStart: 06-04-2024 End: 35-79-5232taqn 1 dose by mouth once cqlxlKez9473-Rbd Dvs-Urtl-Koi-Asb-C (Plenvu) 140-9-5.2 gram powder in packet, sequential Discontinued 140 ML PO .COMPLEX 1 1 June 04, 2024 12:00am December 15, 2024 4:12pm First dose at 4pm the day before colonoscopy, Second dose at 11pm the night before the colonoscopyStart: 06-04-2024 End: 10-78-8949eeht 1 dose by mouth once mraloKkn6168-Bbb Eiy-Hgzc-Ccr-Asb-C (Plenvu) 140-9-5.2 gram powder in packet, sequential Discontinued 140 ML PO .COMPLEX 1 1 June 03, 2024 11:00pm December 15, 2024 3:12pm First dose at 4pm the day before colonoscopy, Second dose at 11pm the night before the colonoscopyStart: 41-62-2001jfln 1 dose by mouth once emdueLsa1468-Dct Wpd-Pxlu-Dit-Asb-C (Plenvu) 140-9-5.2 gram powder in packet, sequential Active 140 ML PO .COMPLEX 1 1 June 04, 2024 12:00am First dose at 4pm the day before colonoscopy, Second dose at 11pm the night before the colonoscopy Fluticasone Propion-Salmeterol (11 sources)Corticosteroid, beta2-Adrenergic AgonistStart: 07-07-2024 End: 12-44-4522zhkq 1 puff(s) by inhalation twice dailyFluticasone Propion- Salmeterol (Advair Diskus) 500-50 mcg/dose blister with device Discontinued 1 IN H INHALATION Twice daily July 07, 2024 12:00am July 05, 2025 9:28am FreeTextSi puff Inhalation Twice a day; Note: Source Status: Taking; Provider: Neha Collazo ( )Start: 24-11-9621hywz 1 puff(s) by inhalation twice dailyFluticasone Propion-Salmeterol (Advair Diskus) 500-50 mcg/dose blister with device Active 1 INH INHALATION Twice daily July 06, 2024 11:00pm FreeTextSi puff Inhalation Twice a day; Note: Source Status: Taking; Provider: Neha Collazo ( )Start: 13-37-8460oiil 1 puff(s) by inhalation twice dailyFluticasone Propion-Salmeterol [...] Diuretic, Angiotensin Converting Enzyme InhibitorStart: 07-07-2024 End: 28-09-5628fmdx 1 tablet by mouth once dailyLisinopril-Hydrochlorothiazide 10-12.5 mg tablet Discontinued 1 TAB PO Daily July 07, 2024 12:00am July 07, 2024 8:17am FreeTextSi tablet Orally Once a day; Note: Source Status: Not-TakingundefinedPRN; Provider: Neha Collazo ( )iopamidol (ISOVUE-370) 76 % injection 120 mL (1 source)Start: 12-26-2022 End: 84-62-8413upjftwyih (ISOVUE-370) 76 % injection 120 mLpredniSONE 20 mg oral tablet (3 sources)Start: 10-06-2024 End: 54-97-5281evhfkmAROI (DELTASONE) 20 mg tablet Indications: COPD exacerbation (CMS-HCC) Take 1 tablet (20 mg total) by mouth See Admin Instructions. 1 tab 2x daily x3 days, 1 tab daily x3 days, 1/2 tablet dailyx4 days 11 tablet 10/06/2024 11/03/2024 Discontinued (Therapy completed)Start: 67-58-3883jxbglrZTQO (DELTASONE) 20 mg tablet Indications: COPD exacerbation (CMS-HCC) Take 1 tablet (20 mg total) by mouth See Admin Instructions. 1 tab 2x daily x3 days, 1 tab daily x3 days, 1/2 tablet dailyx4 days 11 tablet 09/13/2024 Activespironolactone 25 mg oral tablet (20 sources)Aldosterone AntagonistStart: 05-23-2023 End: 67-23-9144xmcm 1 tablet by mouth once dailySpironolactone 25 mg tablet Discontinued 25 MG PO Daily December 14, 2024 1:00am December 15, 2024 4:11pmtraZODone hydrochloride 50 mg oral tablet (20 sources)Serotonin Reuptake InhibitorStart: 07-07-2024 End: 63-99-0047qdtc 1 tablet by mouth once daily at bedtimeTrazodone 50 mg tablet Discontinued 50 MG PO Daily at bedtime July 07, 2024 12:00am 2024 4:11pm FreeTextSi tablet at bedtime as needed Orally Once a day; Note: Source Status: Taking; Provider: Neha Collazo ( ) Start: 10-31-2022 End: 15-61-9145jiow 1 tablet by mouth at bedtimetraZODone (DESYREL) 150 MG tablet trazodone 150 mg tablet TAKE 1 TABLET BY MOUTH AT BEDTIME 10/31/2022 Active Problems Active Problems Problem ClassificationProblemDateDocumented DateEpisodic/ChronicAnxiety disorders (6 sources)Mixed anxiety and depressive disorder; Translations: [Anxiety disorder, unspecified]Onset: 190516-53-7483EgjspqiEgbtganxd infection; unspecified site (1 source)Other specified bacterial agents as the cause of diseases classified elsewhere; Translations: [Other specified bacterial agents as the cause of diseases classified elsewhere]Onset: 95-87-0593TdoaxylyDhfidbce of urinary tract (20 sources)Kidney stone; Translations: [Calculus of kidney]Onset: 08-11-2022 EpisodicCancer of cervix (1 source)Personal history of malignant neoplasm of cervix uteri; Translations: [PERS HX MALIG NEOPLASM CERV UTERI]Onset: 87-79-6373GiffttuwHnmiuak dysrhythmias (1 source)Unspecified atrial fibrillation; Translations: [Unspecified atrial fibrillation]Onset: 77-44-5201MlbkiksPnwzsyk obstructive pulmonary disease and bronchiectasis (20 sources)Emphysema, unspecified; Translations: [Chronic bronchitis]Onset: 04-01-2022 Resolved: 568695-22-8136WvqbbqcRzyagqu obstructive pulmonary disease and bronchiectasis (1 source)Chronic obstructive pulmonary disease and bronchiectasis; Translations: [Other specified chronic obstructive pulmonary disease]Onset: 20-03-9993Ieixvzdwk of lipid metabolism (2 sources)Mixed hyperlipidemia; Translations: [Mixed hyperlipidemia]Onset: 323986-75-2892BtrdakqGtiiprbxc usually diagnosed in infancy, childhood, or adolescence (20 sources)Attention deficit hyperactivity disorder, predominantly inattentive type; Translations: [Other specified behavioral and emotional disorders with onset usually occurring in childhood and adolescence]Onset: ChronicE Codes: Fall (1 source)Fall on same level from slipping, tripping and stumbling with subsequent striking against unspecified object, initial encounter; Translations: [FALL SAME LVL SLIP STRK UNS OBJ INT]Onset: 23-26-4212PiwfghjeXnakqfepgx disorders (1 source)Gastro-esophageal reflux disease without esophagitis; Translations: [GERD WITHOUT ESOPHAGITIS]Onset: 25-71-1517GrdgyhkTdhisvjdr hypertension (20 sources)Essential (primary) hypertension; Translations: [Benign essential hypertension]Onset: 74-02-9762HfivwgeQqhonnyssfvai symptoms and ill-defined conditions (2 sources)Incontinence; Translations: [Mixed incontinence]Onset: 07-18-2025 71-06-3788UubzqaoDoufeqyilqxey symptoms and ill-defined conditions (10 sources)Rafael hematuria; Translations: [Gross hematuria]Onset: 07-18-2025 EpisodicHeadache; including migraine (1 source)Headache; including migraine; Translations: [HEADACHE UNSPECIFIED] Onset: 87-02-5700Aoyit valve disorders (19 sources)Nonrheumatic mitral (valve) insufficiency; Translations: [Non- rheumatic mitral regurgitation ]Onset: 12-77-1306VvktigdBsuaednsdirv with complications and secondary hypertension (4 sources)Hypertensive heart disease without heart failure; Translations: [Unspecified hypertensive heart disease without heart failure]92-77-7737Yfijpdv Joint disorders and dislocations; trauma-related (20 sources)Chondromalacia of left patella; Translations: [Chondromalacia patellae, left knee]Onset: 978257-58-4141VwmlprrEhiycbtxbapil mental health disorders (7 sources)Primary insomnia; Translations: [Primary insomnia]Onset: 08-20-2023 34-11-0875OoinecmVqyh disorders (1 source)DepressionOnset: 78-19-5631SaqgohkZrca disorders (14 sources)Mood disorders; Translations: [Depression, unspecified]Onset: 04-12-2024 Resolved: 377165-33-5472Ieyljxuphaqgdu (16 sources)Unspecified osteoarthritis, unspecified site; Translations: [Osteoarthritis of joint of right ankleand/or foot]Onset: 090507-25-3398 ChronicOther aftercare (1 source)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; Translations: [OTH SNF CURRENT DRUG THERAPY]Onset: 80-61-5049FsbmcmamTtzlq connective tissue disease (2 sources)Disorder of musculoskeletal system; Translations: [Other specified disorders of synovium, right ankle and foot]05-39-9898LakaqldtHdjuw ear and sense organ disorders (1 source)Unspecified hearing loss, left ear; Translations: [UNSPECIFIED HEARING LOSS LEFT EAR]Onset: 52-49-6938GeyewkvOigrv ear and sense organ disorders (17 sources)Sensorineural hearing loss, unilateral, left ear, with unrestricted hearing on the contralateral side; Translations: [Sensorineural hearing loss, unilateral]Onset: 48-25-0839WncwokqCaksh ear and sense organ disorders (1 source)Unspecified hearing loss, unspecified ear; Translations: [UNS HEARING LOSS UNSPECIFIED EAR]Onset: 74-49-3457IjylenyEnjmr ear and sense organ disorders (13 sources)Deafness of left ear; Translations: [Unspecified hearing loss, left ear]Onset: 231421-62-2435QhuuttjPdzye lower respiratory disease (3 sources)Pleurodynia; Translations: [PLEURODYNIA]Onset: 32-55-5465Sbzkjokp Other nervous system disorders (1 source)Other chronic pain; Translations: [OTHER CHRONIC PAIN]Onset: 00-77-2640JsphyzeNafyk nervous system disorders (13 sources)Chronic pain syndrome; Translations: [Chronic pain syndrome]Onset: 435369-01-6274MvxgxrrOimqn non-traumatic joint disorders (6 sources)Arthropathy of multiple joints; Translations: [Arthropathy, unspecified]22-53-1171TljfuujTnnsw non-traumatic joint disorders (1 source)Arthropathy, unspecified; Translations: [Arthropathy, unspecified] Onset: 71-10-1202QklncbbUhtbf nutritional; endocrine; and metabolic disorders (1 source)Obesity, unspecified; Translations: [OBESITY UNSPECIFIED]Onset: 85-40-4856UpgkjcaPmabm nutritional; endocrine; and metabolic disorders (1 source)Body mass index (BMI) 35.0-35.9, adult; Translations: [BODY MASS INDEX BMI 35.0-35.9 ADULT]Onset: 24-92-6599VqwifswJwfye nutritional; endocrine; and metabolic disorders (15 sources)Morbid obesity; Translations: [Morbid (severe) obesity due to excess calories]Onset: 802229-46-0888XsndlheWoypo nutritional; endocrine; and metabolic disorders (1 source)Morbid (severe) obesity due to excess calories; Translations: [Morbid (severe) obesity due to excess calories]Onset: 97-14-4476EzavuafLsvzw upper respiratory infections (2 sources)Chronic maxillary sinusitis; Translations: [Chronic sinusitis, unspecified]Onset: 24-23-9766ZdshmwkItaoeqzi codes; unclassified (1 source)Acquired absence of both cervix and uterus; Translations: [ACQUIRED ABSENCE BOTH CERVIX AND UTERUS]Onset: 29-50-0207MhpuyekgFdrbudeur and history of mental health and substance abuse codes (1 source)H/O: depression; Translations: [Personal history of other mental and behavioral disorders]14-44-1315AhivykcmGiwrvywvbsm; intervertebral disc disorders; other back problems (20 sources)Lumbar post-laminectomy syndrome; Translations: [Postlaminectomy syndrome, not elsewhere classified]Onset: hronic Spondylosis; intervertebral disc disorders; other back problems (1 source)Dorsalgia, unspecified; Translations: [DORSALGIA UNSPECIFIED]Onset: 76-02-8625OchtltydCikhyoahh-related disorders (20 sources)Nicotine dependence, cigarettes, uncomplicated; Translations: [Nicotine dependence, cigarettes, with unspecified nicotine-induced disorders] Onset: 06-97-6203TatvgwvNegsheikaro injury; contusion (3 sources)Contusion of left front wall of thorax, initial encounter; Translations: [Contusion of right elbow,initial encounter]Onset: 03-11-2022 EpisodicThyroid disorders (20 sources)Thyrotoxicosis with diffuse goiter without thyrotoxic crisis or storm; Translations: [Graves' disease]Onset: 455599-15-9926Ynqygah Unclassified (1 source)Annual ExamOnset: 04-98-5101Zfxjtupbiege (1 source)fibroOnset: 08-10-2024 Past or Other Problems Problem ClassificationProblemDateDocumented DateEpisodic/ChronicAbdominal pain (4 sources)Unspecified abdominal pain; Translations: [UNSPECIFIED ABDOMINAL PAIN]Onset: 39-86-9770VidxnaymEibbrk of ovary (1 source)Personal history of malignant neoplasm of ovary; Translations: [PERSONAL HX MALIG NEOPLASM OVARY]Onset: 50-84-1040MvvowwwrEulmggk dysrhythmias (13 sources)Intermittent palpitations; Translations: [Palpitations]Onset: 042391-08-1749HxnhhhlnXtmonqxjbbkyhkui hemorrhage (4 sources)Melena; Translations: [MELENA]Onset: 33-97-7292KjzxzlbhRitfvvholnfgb and screening for infectious disease (4 sources)Encounter for screening for other viral diseases; Translations: [Viral screening status]Onset: 516818-55-2083JhnqfzxpLwhjqkq (3 sources)Onychomycosis; Translations: [Tinea unguium]13-44-5081Meifcxfn Nonspecific chest pain (18 sources)Atypical chest pain; Translations: [Other chest pain]Onset: 376415-73-1857VgxwhgbcVozfg bone disease and musculoskeletal deformities (1 source)Other specified disorders of bone density and structure, left thigh; Translations: [OTH D/O BONE DEN STRUCT LT THIGH]Onset: 93-34-2497VnzkwcsdYtqhy bone disease and musculoskeletal deformities (13 sources)Bone cyst; Translations: [Other cyst of bone, unspecified site] Onset: 202176-56-9624TxrrpdwxExvbc connective tissue disease (1 source)Pain in right foot; Translations: [PAIN IN RIGHT FOOT]Onset: 06-33-1186DtqfnfpyKnjlq connective tissue disease (3 sources)Pain of toes of bilateral feet; Translations: [Pain in right toe(s)] 61-61-9561OboikpzzWtiga connective tissue disease (20 sources)Fibromyalgia; Translations: [Fibromyalgia]Onset: 11-11-2022 83-49-9967SgwknawfTrpeb connective tissue disease (1 source)Fibromyalgia; Translations: [Fibromyalgia]Onset: 69-73-0070Lyxecxnp Other infections; including parasitic (1 source)H/O: infectious disease; Translations: [Personal history of other infectious and parasitic diseases]00-34-1550QqdvkalpMtngs non-traumatic joint disorders (4 sources)Pain in right ankle and joints of right foot; Translations: [PAIN IN RIGHT ANKLE]Onset: 24-03-5011QwdapgruFihuy non-traumatic joint disorders (4 sources)Pain in right elbow; Translations: [PAIN IN RIGHT ELBOW]Onset: 69-05-1980AnjnugnzUqygp screening for suspected conditions (not mental disorders or infectious disease) (8 sources)Encounter for screening for osteoporosis; Translations: [Encounter for screening mammogram for malignant neoplasm of breast]Onset: 08-18-2022 03-11-5915LkavukztKnebh upper respiratory infections (1 source)Acute maxillary sinusitis, unspecified; Translations: [ACUTE MAXILLARY SINUSITIS UNS]Onset: 09-17-4248BkfhpfzmYcesknff codes; unclassified (20 sources)Insomnia; Translations: [Insomnia, unspecified]Onset: 02-06-2012 52-76-0468MtcirfvlIucvluru codes; unclassified (8 sources)Tobacco user; Translations: [Tobacco use]Onset: EpisodicResidual codes; unclassified (4 sources)Asymptomatic menopausal state; Translations: [ASYMPTOMATIC MENOPAUSAL STATE]Onset: 28-53-8077OguaomijMpqzkwfa codes; unclassified (1 source)Family history of leukemia; Translations: [FAMILY HISTORY OF LEUKEMIA] Onset: 65-31-9415HpidcyhbKogxueuk codes; unclassified (1 source)Family history of malignant neoplasm of kidney; Translations: [FAM HX MALIGNANT NEOPLASM KIDNEY]Onset: 66-50-7664WfywuqoaNxbchztk codes; unclassified (1 source)Acquired absence of ovaries, bilateral; Translations: [ACQUIRED ABSENCE OVARIES BILATERAL]Onset: 49-89-1546CjzqrhmxUbgpzqb and strains (1 source)Tendon injury - lower limb; Translations: [Strain of muscle(s) and tendon(s) of peroneal muscle group at lower leg level, right leg, initial encounter]89-25-7094ScabvkxwGyhlvvgwonbk (1 source)AMS, low o2 statsOnset: 80-81-4514Lecdgrjctoev (13 sources)Onset: 10-06-2024 Resolved: Results Test NameValueInterpretationReference RangeFacilityBasic Metabolic Profon 90-69-9033Gkiik gap [Moles/Vol]8 mmol/LLow9-16Ohio[facility]. Bing, Md, Cancer CenterComment on above:Performed By: #### BMP #### [address] [place], [place] [id number] Stock Pitcher: Xavier Cuevas MDBUN/CRE Nmygd05Ujstip5-93Pdiqb [facility] Comment on above:Performed By: #### BMP #### [address] [place] [address] Stock Pitcher: NAGA Melendezalcium [Mass/Vol]9.7 mg/dLNormal8.6-10.4Ohio[facility]. [facility], Md, Cancer CenterComment on above:Performed By: #### BMP #### [address] [place] [address] Stock Pitcher: NAGA Melendezhloride [Moles/Vol]103 mmol/HPsaaak79-303EclfnOhiohealth Arthur G.H. Bing, Md, Cancer CenterComment on above:Performed By: #### BMP #### [address] [place] [address] Stock Pitcher: Xavier Cuevas MDCO2 [Moles/Vol]30 mmol/LBklkao92-75EzcpyOhiohealth Arthur G.H. Bing, Md, Cancer CenterComment on above:Performed By: #### BMP #### [address] [place], [place] [address] Stock Pitcher: NAGA Melendezreatinine [Mass/Vol]1.0 mg/dLHigh0.50-0.90Ohio[facility]. [facility], Md, Cancer CenterComment on above:Performed By: #### BMP #### [address] [place] [address] Stock Pitcher: Xavier Cuevas MDGFR/1.73 sq M.predicted among non-blacks MDRD (S/P/Bld) [Vol rate/Area]64 mL/min/{1.73_m2}Normal>60[facility] Comment on above:Result Comment: These results are [...] renal tubular secretion.Performed By: #### BMP #### [address] [place] [address] Stock Pitcher: Xavier Cuevas MDGlucose [Mass/Vol]109 mg/zHOqhh77-16DvlaxKindred Hospital DaytonComment on above:Performed By: #### BMP #### [address] [place] [address] Stock Pitcher: PAU Melendezotassium [Moles/Vol]4.3 mmol/LNormal3.7-5.3MKindred Hospital DaytonComment on above:Performed By: #### BMP #### [address] [place] [address] Stock Pitcher: Xavier Cuevas MDSodium [Moles/Vol]141 mmol/JOvalyw411-176MbjgsOhiohealth Arthur G.H. Bing, Md, Cancer CenterComment on above:Performed By: #### BMP #### [address] [place] [address] Stock Pitcher: Xavier Cuevas MDUrea nitrogen [Mass/Vol]19 mg/dLNormal8-23Ohio[facility]. Bing, Md, Cancer CenterComment on above:Performed By: #### BMP #### [facility] [address] [place] [address] Stock Pitcher: NAGA Melendezult,Urineon 06-72-6789Obpy,UrineSpecimen Description .CLEAN CATCH URINE Special Requests Site: Urine Culture NO SIGNIFICANT GROWTH Report Status FINAL 07/19/2025NoBarberton Citizens HospitalComment on above: Performed By: #### URC #### [facility] [address] [place], [place] [id number] Stock Pitcher: Richard Farias MD [facility] [address] [place] [address] [place] [address] Stock Pitcher: Xavier Cuevas MDUrinalysis w/ Microon 69-44-6318Vpljrgmzc, SemiQt,UrNegativeNormalNEGOhiohealth Arthur G.H. Bing, Md, Cancer CenterComment on above:Performed By: #### UAMIC #### [facility] [address] [place] [address] [place], [place] [phone] Stock Pitcher: Arya Melendez, UrineNegativeKettering Health Main Campus Comment on above:Performed By: #### UAMIC #### [facility] [address] [place] [address] Dr[place], [place] [phone] Stock Pitcher: NAGA Melendezlarity (U)ClearNoalCLEAROhiohealth Arthur G.H. Bing, Md, Cancer Center Comment on above:Performed By: #### UAMIC #### [facility] [address] [place] [address] [place] [address] Stock Pitcher: NAGA Melendezolor (U)YellowKettering Health Miamisburg Comment on above:Performed By: #### UAMIC #### [facility] [address] [place] [address] [place] [address] Stock Pitcher: Xavier Cuevas MDEpithelial cells LM Ql (Urine sed)0 TO 8Ukafrr9-99 [facility], Md, Cancer CenterComment on above:Performed By: #### UAMIC #### [facility] [address] [place] [address] [place] [address] Stock Pitcher: Xavier Cuevas MDGlucose Ql (U)NegativeNormalNEGMercy Middlesex HospitalComment on above:Performed By: #### UAMIC #### [facility] [address] [place] [address] [place], [place] [phone] Stock Pitcher: Xavier Cuevas MDKetones Ql (U)NegativeNormalNEGMercy Springtown HospitalComment on above:Performed By: #### UAMIC #### [address] [place], [place] [phone] Stock Pitcher: Xavier Cuevas MDLeukocyte esterase Test strip Ql (U)NegativeNormal NEGMercy Middlesex HospitalComment on above:Performed By: #### UAMIC #### [address] [place], [facility]83 Stock Pitcher: Xavier Cuevas MDNitrite,UrNegativeNormalNEGOhiohealth Arthur G.[facility]. [facility], Cancer Center Comment on above:Performed By: #### UAMIC #### [facility] [address] [place] [address] Dr[place], [place] 06[address] Stock Pitcher: Xavier Cuevas [facility],Ur6.6Jpkerf4.0-9.0Ohio[facility]. [facility], Md, Cancer CenterComment on above:Performed By: #### UAMIC #### [facility] [address] [place] [address] Dr[place], [facility]83 Stock Pitcher: PAU Melendezrotein Ql (U)NegativeNormalNEGSelect Medical Trihealth Rehabilitation Hospital HospitalComment on above:Performed By: #### UAMIC #### [facility] [address] [place] [address] [place], [place] [phone] Stock Pitcher: JOSE Melendezpec. [place],Ur1.838Jwhwbt2.010-1.020MerCharlotte Hungerford HospitalComment on above:Performed By: #### UAMIC #### [facility] [address] [place] [address] Stock Pitcher: Xavier Cuevas MDUrine RBC's0 TO 2Vzczcb7-1RvpzdKindred Hospital Dayton Comment on above:Performed By: #### UAMIC #### [facility] [address] [place], [place] [address] Stock Pitcher: Baltazar Melendez WBC's2 TO 6Labsxo2-9RmhcdOhiohealth Arthur G.H. Bing, Md, Cancer Center Comment on above:Performed By: #### UAMIC #### [facility] [address] [place], [place] 5039483 Stock Pitcher: Xavier Cuevas MDUrobilinogen,UrNormalNormal0.0-1.0[facility], Md, Cancer CenterComment on above:Performed By: #### UAMIC #### [facility] [address] [place], [facility]83 Stock Pitcher: Xavier Cuevas MDUrinalysis with Microscopicon 47-90-1290Qcjfxfeum Ql (U)NegativeNEGATIVEBon Secours Mercy HealthClarity (U)ClearClearBon Secours [...] gravity (U) [Rel density]1.015 1.010 - 1.020Bon [facility]. Mary'S Medical CenterUrobilinogen Qn (U)Normal0.0 - 1.0 EU/dLBon St. Mary'S Medical CenterWBC LM.HPF (Urine sed) [#/Area]2 TO 5Bon [facility] Care Hospital and SchoolXR ABDOMEN (KUB) (SINGLE AP VIEW)on 24-21-7130HA ABDOMEN (KUB) (SINGLE AP VIEW)EXAMINATION: ONE SUPINE XRAY VIEW(S) OF THE ABDOMEN07/12/2025 10:49 am COMPARISON: KUB 06/02/2024 HISTORY: ORDERING SYSTEM PROVIDED HISTORY: Renal calculus, FINDINGS: No definite urinary tract calculus is seen on this study. Multiple pelvic phleboliths. No bowel obstruction. Postop lumbar spine. IMPRESSION: No urinary calculus is seen. Interpreted by: Timi Jones MD Signed by: Timi Jones MD 07/15/25 Final resultNormalMercy Middlesex HospitalOrthopedic Office/Clinic Noteon 02-50-5513Cwyrcwrjco Office/Clinic NoteChief Complaint F/U Lt Knee Pain [...] cadaveric kidney. The patient reports seeing a metal furniture repairer for her valve prior to her reconstructive [...] set in. The pa (more content not included)...[facility] HospitalOrthopedic Office/Clinic NoteChief Complaint F/U Lt Knee [...] cadaveric kidney. The patient reports seeing a metal furniture repairer for her valve prior to her reconstructive [...] on exam. - Recommended (more content not included)...[facility] Orthopedic Office/Clinic Noteon 55-59-0063Nfgfeniglo Office/Clinic NoteChief Complaint hx of bilat. knee [...] 180 EA, 0 Refil (more content not included)...[facility] HospitalXR Knee 3 Views Lefton 24-73-0419EQ Knee 3 Views LeftExam: Three-view left knee [...] Is Signed, Electronically Signed in Other Vendor System)[facility] HospitalPodiatry Office/Clinic Noteon 40-49-3380Eetidrug Office/Clinic NoteThe content of this note was [...] can choose a convenient location, such as [place]. The patient previously attended physical therapy at [...] of Systems Musculoskeletal: Positive (more content not included)...[facility] HospitalPodiatry Office/Clinic Noteon 17-32-1427Maplvnrq Office/Clinic Note Chief Complaint Post-Op Right ankle [...] to the plantar feet as tested with [employer] monofilament. Gross motor intact bilateral [...] on this date, (more content not included)... [facility].eGFRon 46-45-9148TUX/1.73 sq M.predicted MDRD (S/P/Bld) [Vol rate/Area]mL/min/{1.73_m2}Normal>=60[facility], AvonComment on above:Result Comment: [facility] have implemented the eGFR [...] 1 Age = yearsPerformed By: #### EGFR ####[address] [address]DDZ w/ Diffon 15-44-6661Gulqjgnjhja distribution width (RBC) [Ratio]13.1 %Ozttrs53.6-14.8BSelect Medical Specialty Hospital - Southeast OhioComment on above:Performed By: #### CBC ####[address] [address]Nqggabomgl (Bld) [Volume fraction]38.8 %Uusyif58.0-46.0 [facility], AvonComment on above:Performed By: #### CBC ####[address] [address]Xwbculjxzs (Bld) [Mass/Vol]13.2 g/qYScjxwr99.0-16.0[facility], AvonComment on above:Performed By: #### CBC ####[address] [address]VOK (RBC) [Entitic mass]29.7 kyUgwddw38.0-35.0[facility], AvonComment on above:Performed By: #### CBC ####[address] [address]KSGQ39.0 %Tvhqhd88.0-37.0 [facility] Hospital, AvonComment on above:Performed By: #### CBC ####[address] [address]CZK (RBC) [Entitic vol]87.5 gOEohmpi81.0-100.0[facility], AvonComment on above:Performed By: #### CBC ####[address] [address]Viilpsps511 x10*3/eiILxjucz126-804GxszmjuxwSelect Medical Cleveland Clinic Rehabilitation Hospital, AvonComment on above:Performed By: #### CBC ####[address] [address]Nsivtszc mean volume (Bld) [Entitic vol]9.1 fL Normal6.7-10.6BSelect Medical Specialty Hospital - Southeast OhioComment on above:Performed By: #### CBC ####[address] [address]WGD5.44 x10*6/mcLNormal3.80-5.20[facility], AvonComment on above:Performed By: #### CBC ####[address] [address]GBO79.6 x10*3/mcLHigh4.5-11.0[facility], AvonComment on above:Performed By: #### CBC ####[address] [address]VUQpq 74-23-3329Laohnne [Mass/Vol]3.0 g/dLLow3.2-4.9 [facility] Hospital, AvonComment on above:Performed By: #### COMP ####[address] [address] Albumin/Globulin [Mass ratio]0.9 {ratio}Low1.1-2.2BSelect Medical Specialty Hospital - [facility] [place] Comment on above:Performed By: #### COMP ####[address], [place] [address]Ifu Phos49 IU/UJsbctg50-31KgcavhnlzSelect Medical [facility] Clinic Rehabilitation Hospital, AvonComment on above:Performed By: #### COMP ####[address], [place] [address]GME [Catalytic activity/Vol]47 U/FYswfgu47-95 [facility], AvonComment on above:Performed By: #### COMP ####[address], [place] [address]Hjiap gap [Moles/Vol]8 mmol/LNormal4-12[facility] Hospital, AvonComment on above: Performed By: #### COMP ####[address], [place] [address]IEM [Catalytic activity/Vol]44 U/CWfza61-94VqqfqeibxSelect Medical [facility] Clinic Rehabilitation Hospital, AvonComment on above:Performed By: #### COMP ####[address], [place] [address]Eqcd Total0.8 mg/dLNormal 0.3-1.2BSelect Medical Specialty Hospital - Southeast OhioComment on above:Performed By: #### COMP ####[address], [place] [address]Lwtvhrz [Mass/Vol]8.9 mg/dLNormal8.5-10.3BSelect Medical Specialty Hospital - Southeast OhioComment on above: Performed By: #### COMP ####[address], [place] [address]Dlviwfcd [Moles/Vol]103 mmol/ZXepmly02-693BivphmbyzSelect Medical Cleveland Clinic Rehabilitation Hospital, AvonComment on above:Performed By: #### COMP ####[address], [place] [address]ZV3 [Moles/Vol]24 mmol/L Vhascx98-55WzoxddfxzSelect Medical Cleveland Clinic Rehabilitation Hospital, AvonComment on above:Performed By: #### COMP ####[address] [place] [address] Creatinine [Mass/Vol]0.87 mg/dLNormal0.44-1.03[facility] Comment on above:Performed By: #### COMP ####[address] [address]Xoizkor [Mass/Vol]171 mg/bWKkre61-19FserjpeziSelect Medical Cleveland Clinic Rehabilitation Hospital, AvonComment on above:Performed By: #### COMP ####[address] [address]Psdlnuojs [Moles/Vol]4.1 mmol/LNormal3.4-4.8BSelect Medical Specialty Hospital - Southeast OhioComment on above:Performed By: #### COMP ####[address] [address] Protein [Mass/Vol]6.4 g/dLLow6.5-8.1BSelect Medical Specialty Hospital - Southeast OhioComment on above:Performed By: #### COMP ####[address] [address]Ujltrp [Moles/Vol]135 mmol/NWxgpip653-863UepqahjcnSelect Medical Cleveland Clinic Rehabilitation Hospital, AvonComment on above:Performed By: #### COMP ####[address] [address]Xoaj nitrogen [Mass/Vol]30 mg/dL High8-26[facility], AvonComment on above:Performed By: #### COMP ####[address] [address]Tfmr nitrogen/Creatinine [Mass ratio]34.5 mg/vsGxrp23.0-20.0[facility] Hospital, AvonComment on above:Performed By: #### COMP ####[address] [address]Dbma Autoon 34-44-3391Isyz Absolute0.0 x10*3/mcLNormal0.0-0.2BSelect Medical Specialty Hospital - Southeast OhioComment on above:Performed By: #### .Automated Diff ####[address] [address]Pwpjkphpw/100 WBC (Bld)0.2 %Normal0.0-1.5BSelect Medical Specialty Hospital - Southeast OhioComment on above:Performed By: #### .Automated Diff ####[address] [address]Bbw Absolute0.0 x10*3/mcL Normal0.0-0.4BSelect Medical Specialty Hospital - Southeast OhioComment on above:Performed By: #### .Automated Diff ####[address] [address]Nxotphkxozy/100 WBC (Bld)0.0 %Normal0.0-5.4BSelect Medical Specialty Hospital - [facility] [place] Comment on above:Performed By: #### .Automated Diff ####[address] [address]Mkykz Absolute0.8 x10*3/mcLLow 1.0-4.8BSelect Medical Specialty Hospital - Southeast OhioComment on above:Performed By: #### .Automated Diff ####[address] [address]Duzhfvxxoqg/100 WBC (Bld)6.6 %Low27.2-40.8BSelect Medical Specialty Hospital - [facility] [place] Comment on above:Performed By: #### .Automated Diff ####[address] [address]Rour Absolute0.6 x10*3/mcLNormal 0.1-1.1BSelect Medical Specialty Hospital - Southeast OhioComment on above:Performed By: #### .Automated Diff ####[address] [address]Deowwvwws/100 WBC (Bld)4.8 %Normal3.7-11.9BSelect Medical Specialty Hospital - [facility] [place] Comment on above:Performed By: #### .Automated Diff ####[address] [address]Xsfafc Adetaept01.3 x10*3/mcLHigh 1.8-7.7BSelect Medical Specialty Hospital - Southeast OhioComment on above:Performed By: #### .Automated Diff ####[address] [address]Edivrw Auto88.4 %High47.2-70.8[facility] Health SystemComment on above:Performed By: #### .Automated Diff ####[facility] [place], [place] [address]Ybnuleazj Clinical Summaryon 08-13-9771Anerawpyi Clinical SummarySkagit Valley Hospital [address] [place], [place] [id number] [phone] [id number] [phone] Clinical Summary Person Information Name: Robyn Thorpe Age: 69 Years : 1955 Sex: Female PCP: Jairo Higuera Marital Status: Phone: PCP: Race: White Ethnicity: Not or Language: Venezuelan Visit Id: Visit Reason: Speciality: Acuity: Enc Type: Observation Med Service: Surgery Arrival: 02/10/2025 10:42:53 Discharge: Dispo Type: Address: [facility] [address] [place] [phone] Preferred Communication Mode: Verbal Preferred Language: Venezuelan Discharge Diagnosis: 1:Painful orthopaedic hardware; 2:Ankle impingement [...] range between ( 27.2 and 40.8 ) [place] Auto: 4.8 % -- Normal range between [...] range between ( 36.0 and 46.0 ) [place] Absolute: 0.6 x10 MCH: 29.7 pg -- [...] Normal range between (more content not included)... NormalSelect Medical [facility] Clinic Rehabilitation Hospital, AvonMagnesiumon 51-13-6173Clggqdfgj [Mass/Vol] 1.9 mg/dLNormal1.7-2.4BSelect Medical Specialty Hospital - Southeast OhioComment on above:Performed By: #### MG ####[address] [address] Progress Note-Nurseon 32-95-0746Smdbvkam Note-NursePhysical therapy reported to this teletypewriter operator the patient was not able to [...] help them out at home. Hospitalist and translator notified of physical therapy recommendations and patient's refusal. Offered to set patient up with home health so that physical therapy can come periodically to help her recover and she stated that her dogs don't like strangers and that she would be fine and does not want it. Electronically signed by Sandhya Bazzi 02/11/25 10:46 EDTNoKindred Hospital DaytonProvider Letteron 53-30-6237Joemtspx Letter CARLITOS Hankins [address] [place] [address], [facility] [place] [address] Re: Robyn Garciay Date of Visit: 02/10/2025 Dear Jairo URBINA, [address], [phone] Date: 02/11/2025 12:55:10 Please see attached discharge summary regarding Robyn Thorpe who was seen on 02/10/2025 16:16:43. Please see attached note for further details and please call with any questions or concerns. 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 Provider: DILEEP Sage Date of Consult: 02/10/2025 [...] (02/10/2025) Medications Inpatient acetaminophen, 650 mg, Oral, h0sw-Lvjvmazs Times albuterol, 180 mcg= 2 puffs, Inhale, [...] Stings (Swelling) Tape ( (more content not included)...[facility] Operative Reporton 27-98-8314Nttauinet ReportIndication for Surgery Right ankle impingement/painful hardware/peroneal [...] Surgeon(s) Brant Burden DPM (Surgeon - Primary) Inside Sales Professional Jonathon Patterson (Envelope Sealer Operator) Anesthesia General Rubi ISRAEL, Lenny Mendes (Dairy Supplies Sales Representative) Malik Reed DO (Dairy Supplies Sales Representative) Gregory SILVER-INTERNET SALESPERSON, Marianne Parks (Provider) Robinson MANAGER CHANGE-STEWARDESS SUPERVISOR, Lucero Alexandre (Provider) Sima MANAGER CHANGE-STEWARDESS SUPERVISOR, Jen (Provider) Preoperative popliteal/saphenous block Estimated Blood [...] and obturator were int (more content not included)...[facility]pelier HospitalProvider Letteron 02-10-2025 Provider Letter CARLITOS Hankins [address] [facility] [address] [address] [place] [address] Re: Robyn Thorpe Date of Visit: 02/10/2025 Dear Jairo URBINA, [facility] [address] [place] [address], [phone] Date: 02/10/2025 15:36:28 Please see attached operative note regarding Robyn Thorpe who was seen on 01/26/2025 16:28:17. Please see attached note for further details and please call with any questions or concerns. Sincerely, VIKI Saunders Providers: The following document(s) were included in the letter: February 10, 2025 15:25:11 EDT - (02/10/2025) Op NoteNormalSelect Medical [facility] Clinic [facility] [place].eGFRon 20-85-9575SKM/1.73 sq M.predicted MDRD (S/P/Bld) [Vol rate/Area] mL/min/{1.73_m2}Normal>=60[facility] [place]Comment on above:Result Comment: [facility] Laboratories have implemented the eGFR [...] 1 Age = yearsPerformed By: #### EGFR ####[facility] [place] [address]Akctc Metabolic Profileon 38-40-3442Wwcbo gap [Moles/Vol] 8 mmol/LNormal4-12[facility], [place]onComment on above:Performed By: #### CD:[id number] ####[address] [address]Gfbyeps [Mass/Vol]8.9 mg/dLNormal8.5-10.3BSelect Medical [facility] [place] Comment on above:Performed By: #### CD:[id number] ####[address] [address]Ewuiolpr [Moles/Vol]105 mmol/L Flpddv98-980XpghxriyeSelect Medical Cleveland Clinic [facility], AvonComment on above:Performed By: #### CD:[id number] ####[address] [address]CF9 [Moles/Vol]23 mmol/ZSacmtc48-35YfyzwrltvSelect Medical Cleveland Clinic [facility], AvonComment on above:Performed By: #### CD:[id number] ####[address] [address]Jhklsqpejw [Mass/Vol]0.89 mg/dLNormal0.44-1.03 [facility], AvonComment on above:Performed By: #### CD:[id number] ####[address] [address]Wupsrrt [Mass/Vol]102 mg/vWLfau03-11OwnyroslhSelect Medical Cleveland Clinic [facility] Hospital, AvonComment on above: Performed By: #### CD:[id number] ####[address] [address]Lblzujvcm [Moles/Vol]3.6 mmol/LNormal3.4-4.8BSelect Medical Specialty Hospital - Southeast OhioComment on above:Performed By: #### CD:[id number] ####[address] [address]Jgpnow [Moles/Vol]136 mmol/PLfhfmn241-094AbogwuhjxSelect Medical [facility] Clinic [facility], AvonComment on above:Performed By: #### CD:[id number] ####[address] [address]Sgni nitrogen [Mass/Vol]21 mg/dLNormal8-26[facility], AvonComment on above:Performed By: #### CD:[id number] ####[address] [address]Rfti nitrogen/Creatinine [Mass ratio]23.6 mg/soZpsw66.0-20.0[facility], AvonComment on above:Performed By: #### CD:[id number] ####[address] [address]KWF w/ Diffon 02-02-2025 Erythrocyte distribution width (RBC) [Ratio]13.1 %Knymfs39.6-14.8BSelect Medical Specialty Hospital - Southeast OhioComment on above:Performed By: #### CBC ####[address] [address]Bfegxsdivc (Bld) [Volume fraction]41.0 %Pcjklr07.0-46.0[facility], [place]onComment on above: Performed By: #### CBC ####[address] [address]Obzhuttrnx (Bld) [Mass/Vol]14.3 g/iKTvbeuq76.0-16.0 [facility], AvonComment on above:Performed By: #### CBC ####[address] [address]ZWZ (RBC) [Entitic mass]30.4 qnZhkgvp69.0-35.0[facility], AvonComment on above:Performed By: #### CBC ####[address] [address]ILTZ01.8 %Dvoqiq62.0-37.0[facility] [place] Comment on above:Performed By: #### CBC ####[address] [address]BQL (RBC) [Entitic vol]87.4 eNTsuswr71.0-100.0 [facility], AvonComment on above:Performed By: #### CBC ####[address] [address]Adesuvgs130 x10*3/ndIBawdpa932-186PvoylunhwSelect Medical Cleveland Clinic [facility], AvonComment on above:Performed By: #### CBC ####[address] [address]Onlhkrkp mean volume (Bld) [Entitic vol]8.9 fLNormal6.7-10.6BCleveland Clinic Akron General SystemComment on above:Performed By: #### CBC ####[address] [address]XOG7.69 x10*6/mcLNormal3.80-5.20 [facility], AvonComment on above:Performed By: #### CBC ####[address] [address]FNA1.5 x10*3/mcLNormal4.5-11.0[facility], AvonComment on above:Performed By: #### CBC ####[address] [address]Bion Autoon 74-06-5620Frwk Absolute0.0 x10*3/mcLNormal0.0-0.2BSelect Medical Specialty Hospital - Southeast OhioComment on above:Performed By: #### .Automated Diff ####[address] [address] Basophils/100 WBC (Bld)0.8 %Normal0.0-1.5BSelect Medical Specialty Hospital - Southeast OhioComment on above:Performed By: #### .Automated Diff ####[address] [address]Ohl Absolute0.2 x10*3/mcLNormal0.0-0.4 [facility], AvonComment on above:Performed By: #### .Automated Diff ####[address] [address] Eosinophils/100 WBC (Bld)3.5 %Normal0.0-5.4BSelect Medical Specialty Hospital - Southeast OhioComment on above:Performed By: #### .Automated Diff ####[address] [address]Tseac Absolute1.4 x10*3/mcLNormal1.0-4.8 [facility] SystemComment on above:Performed By: #### .Automated Diff ####[address] [address] Lymphocytes/100 WBC (Bld)25.8 %Low27.2-40.8BCleveland Clinic Akron General SystemComment on above:Performed By: #### .Automated Diff ####[address] [address]Vtgs Absolute0.6 x10*3/mcLNormal0.1-1.1 [facility] SystemComment on above:Performed By: #### .Automated Diff ####[address] [address] Monocytes/100 WBC (Bld)10.7 %Normal3.7-11.9BCleveland Clinic Akron General SystemComment on above:Performed By: #### .Automated Diff ####[address] [address]Rnchzf Absolute3.3 x10*3/mcLNormal1.8-7.7 [facility] SystemComment on above:Performed By: #### .Automated Diff ####[address] [address]Gtjdjq Auto59.2 %Hbhykm57.2-70.8BCleveland Clinic Akron General SystemComment on above: Performed By: #### .Automated Diff ####[address] [address]OZ helen perf SPECT rest stron 69-43-2961SE helen perf SPECT rest [facility] [address] [address] Nuclear Medicine Report Signed Patient: Robyn Thorpe MR#: [id number] : 1955 Acct:[id number] Age/Sex: 69 / F ADM Date: 01/21/25 Loc: EL Room: Type: [facility] CLI Attending Dr: Hay Rea MD Copies [...] Chantale Cardona M.D.01/24/2025 3:34 PM Dictation Location: [place] [address] Transcribed By: NADIA 01/24/25 1534 Dictated By: Chantale Cardona MD 01/24/25 1533 Signed By: 01/24/25 [facility] Physician GroupNo Panel InformationOrdered By: Hay Rea on 27-08-2063GCYLDXKVSOHIO STATE [facility] [place] [address] Cardiac Stress Test Signed Patient: Robyn Thorpe MR#: [id number] : 1955 Date of Service:0 01/21/25 Age/Sex: 69 / F ADM Date: 5 Loc: EL Room: Type: [facility] CLI Attending Dr: Hay Rea MD [...] 1026 Signed By: 01/21/25 1028 [facility] Work Phone: XR Ankle 2 Views Righton 55-38-1155XO Ankle 2 Views Right2 weightbearing views right [...] Signed, Electronically Signed in Other Vendor System)Normal [facility], AvonXR Calcaneous Righton 50-98-7221EQ Calcaneous RightLateral and calcaneal axial views demonstrate: [...] Signed, Electronically Signed in Other Vendor System)Normal [facility], AvonXR Foot 2 Views Righton 76-12-3589SP Foot 2 Views Right2 views right foot [...] Signed, Electronically Signed in Other Vendor System)Normal [facility], [place]onFPG ECG *CARDIOLOGY ONLY*on 08-01-4199EAR ECG *CARDIOLOGY ONLY*[facility] Main [place] [address] [place] [address] Electrocardiograph Report Signed Patient: Robyn Thorpe MR#: [id number] : 1955 Acct:[id number] Age/Sex: 69 / F ADM Date: 12/15/24 Loc: EKGCARDIO Room: Type: [facility] Attending Dr: Hay Rea MD Ordering Provider: [...] previous ECGs available Confirmed by Hay Rea ([id number]) on 12/17/2024 8:54:47 AM Referred By: Electronically Signed By: Hay Rea Transcribed By: MUS Signed By Hay Rea MD 12/17/24 0854Children's MinnesotaAmphetamine Screen Ql (U)Ordered By: Imad Asaad on 12-01-8893Kuhcvhcmukhn Ql (U)NegativeNegSheltering Arms HospitalBarbiturates [Presence] in Urine by Screen methodOrdered By: Imad Asaad on 24-35-5524Dbjkxsevhglk Screen Ql (U)NegativeNegSheltering Arms HospitalBenzodiazepines Screen Ql (U)Ordered By: Imad Asaad on 15-95-2252Njvtpfzfgshxmwc Ql (U)NegativeNegSheltering Arms HospitalBenzoylecgonine [Presence] in Urine by Screen methodOrdered By: Imad Asaad on 62-73-2887Jaaxmdpttwasavj Screen Ql (U)NegativeNegSheltering Arms HospitalCannabinoids [Presence] in Urine by Screen methodOrdered By: Imad Asaad on 72-45-7176Hlcwfovhgamy Screen Ql (U)PositiveHighNegSheltering Arms HospitalComment on above:These are unconfirmed results and should not be used for legal purposes. Drug Cut-Off Concentration: AMPH 1000 ng/mL JAMES 200 ng/mL TERESSA 200 ng/mL COCM 300 ng/mL OP 300 ng/mL PCP 25 ng/mL THC 20 ng/mLDrug Screen,Urineon 90-77-6801Acusytnrynv Screen,UrineNegativeNormal NegativeMethodist Olive Branch HospitalComment on above:Performed By: #### URDS #### [facility] [address] [place] [address] USABarbiturate Screen,UrineNegativeNormalNegativeProvidence City Hospital GroupComment on above:Performed By: #### URDS #### [facility] [address] [place] [address] USABenzodiazepines Screen,UrineNegativeNormalNegativeProvidence City Hospital GroupComment on above:Performed By: #### URDS #### [place] [address] USACannabinoid Screen,UrinePositiveHighNegativeHca Florida Ucf [facility] Physician GroupComment on above:Result Comment: These are unconfirmed results and should not be used for legal purposes. Drug Cut-Off Concentration: AMPH 1000 ng/mL JAMES 200 ng/mL TERESSA 200 ng/mL COCM 300 ng/mL OP 300 ng/mL PCP 25 ng/mL THC 20 ng/mL PERFORMED BY: [place] [address] PATHOLOGIST [employer] UNLOADER FREDERIC CHRISTINA M.D.Performed By: #### URDS #### [place] [address] USACocaine Screen,UrineNegativeNormalNegativeHca Florida [facility]cf [facility] Physician [facility]hatchie General HospitalComment on above:Performed By: #### URDS #### [place] [address] USAOpiate Screen,UrineNegativeNormalNegativeHca Florida Ucf [facility] Physician GroupComment on above:Performed By: #### URDS #### [place] [address] USAPhencyclidine Screen,UrineNegativeNormalNegativeHca Florida [facility]cf [facility] Physician [facility]allahatchie General HospitalComment on above:Performed By: #### URDS #### [place] [address] USAOpiates [Presence] in Urine by Screen methodOrdered By: Imflo Asaad on 53-82-0856Htslkwm Screen Ql (U)NegativeNegativeSelect Medical [facility] Rehabilitation HospitalPathology Request for Lab Corpon 61-28-2366Qsdtwhajp Request for Lab CorpNormSt. Vincent's [facility] County Physician GroupComment on above:Order Comment: PATHOLOGY GI SPECIMENResult Comment: See report. Scanned copy available in EMR. PERFORMED BY: [place] [address] PATHOLOGIST KIL[employer] UNLOAD[employer] FREDERIC CHRISTINA M.D.Performed By: #### PATH TO [facility] #### [place] [address] USAPhencyclidine Screen Ql (U)Ordered By: Wanda Hagan on 81-95-6035Sltzpmldrubdn Ql (U)NegativeNegativeSelect Medical [facility] Hospital BUN & Creatinineon 52-48-3557Xdpvuvqlgi [Mass/Vol]0.8 mg/dL0.50 - 0.90 mg/dLBON WHITE HOSPITALEst, Solitario Warren Rate84- PINFBON WHITE HOSPITALComment on above: These results are not intended [...] tubular secretion. Interpretation and review of laboratory resultsAbHospital Corporation of America Urea nitrogen [Mass/Vol]24 mg/dLHigh8 - 23 mg/dLBON [facility]ANT[facility]36on 70-99-099229Dv informed, she told me she will be looking for new heart doctor as she is not happy with us.NormalVeterans Health AdministrationHCV Ab [place] Qlon 12-11-2023 Interpretation and review of laboratory resultsAbnoUpland Hills HealthANTI HCV W/PCR REFLXReactiveAbnormalNRCTProAdams County Regional Medical Center on above:Result Comment: Supplemental testing for HCV RNA by PCR has been ordered per CDC recommendations. Ylegzj-fq-aorizj ratio is >=1.00.Performed By: #### THYR, 36798-3 #### [facility] ([id number]) [address] [place], [place] [address]ENP RNA PAULY+probe Qnon 91-98-0521QVU RNA QUANT [id number] IU/mL AbnormalUndetectedSelect Medical [facility] Rehabilitation Hospital on above:Result Comment: NOTE Result in log IU/mL is 7.28. ADDITIONAL INFORMATION The quantification range of this assay is 15 to 100,000,000 IU/mL (1.18 log to 8.00 log IU/mL). Testing was performed using the diomedes HCV test ([employer] Test Performed by: [facility] [address] [place] [address] Stock Pitcher: Raj Bhatti M.D. Ph.D.; CLIA# [id number] By: #### THYR, 45047-8 #### [facility] ([id number]) [address] [place] [address], [address] [address]Wdywmncur C(HCV) Ab w/ Reflex to PCRon 43-30-0928NTN Ab [place] Ql ReactiveAbnormalNon-Reactive^Non-ReactiveProWvumedicine Harrison Community HospitalComment on above: Supplemental testing for HCV RNA by PCR has been ordered per CDC recommendations. Arlsvi-mw-fdeero ratio is >=1.00. THYROID PROFILEon 22-35-7977Anvw T4 [Mass/Vol]1.29 ng/dLNormal0.61-1.60Pro[facility] Deaconess HospitalComment on above:Performed By: #### THYR, 47142-0 #### [facility] ([id number]) [address] [place] [address], [address] [address]GQZ7.45 uIU/mLLow0.49-4.67[facility]walk Memorial HospitalComment on above:Performed By: #### THYR, 19610-5 #### [facility] ([id number]) [address] [place] [address], [address] [address]Devdmgh profile includes TSH FT4on 56-29-2701Actzaelweqbvkc and review of laboratory resultsAbnormalProtestant Deaconess HospitalTS Qn0.45 m[IU]/LLow [facility] Visiton 98-53-1723Vgsnjo-up [id number] Robyn Thorpe 1955 F Date Provider Department Center 11/17/2023 Julisa-PRANAV TRINIDAD GEE Alejandro Family History Problem Relation Age of Onset Diabetes Mother Coronary artery disease Mother Hypertension Mother Coronary artery disease Father Hypertension Father Other Father Coronary artery disease Brother Family Status - Relation Status Age at Mother Father Brother Level of Service:72370 MO OFFICE/OUTPATIENT ESTABLISHED LOW MDM [facility] HospitalOrders Onlyon 39-85-8637Dwklct [id number] Robyn Thorpe 1955 F Date Provider Department Center 11/17/2023 PAT BAL GEE [facility] Family History Problem Relation Age of Onset Diabetes Mother Coronary artery disease Mother Hypertension Mother Coronary artery disease Father Hypertension Father Other Father Coronary artery disease Brother Family Status - Relation Status Age at Mother Father BrotherNoKettering Health Miamisburg36on 10-20-880527Anhqvxl stopped by the office today c/o cough with lisinopril. Can we switch her to losartan?[facility] HospitalOr[facility] Onlyon 06-25-2023 Orders [id number] Robyn Thorpe 1955 F Date Provider Department Center 06/25/2023 VERONICA BELLO [facility] St. Family History Problem Relation Age of Onset Diabetes Mother Coronary artery disease Mother Hypertension Mother Coronary artery disease Father Hypertension Father Other Father Coronary artery disease Brother Family Status - Relation Status Age at Mother Father BrotherGenesis HospitalBasic Metabolic Panelon 28-22-5030Bmasi gap [Moles/Vol]8 mmol/LLow9 - 17 mmol/LBON SECBigcommerce Calcium [Mass/Vol]9.4 mg/dL8.6 - 10.4 mg/dLBON SECMission Motors HEALTHChloride [Moles/Vol]108 mmol/LHigh98 - 107 mmol/LBON SECMission Motors HEALTHCO2 [Moles/Vol] 25 mmol/L20 - 31 mmol/LBON SECBigcommerceCreatinine [Mass/Vol]0.68 mg/dL 0.50 - 0.90 mg/dLBON SECBigcommerceGFR/1.73 sq M.predicted MDRD (S/P/Bld) [Vol rate/Area]- PINFBON FLAGSTAFF MEDICAL CENTERBigcommerceComment on above: These results are not intended [...] that affects renal tubular secretion. Glucose [Mass/Vol]109 mg/pLLugv54 - 99 mg/dLBON LiveRSVP Interpretation and review of laboratory resultsAbnormalBON SECOURS TUSCARAWAS HOSPITALShenandoah Studios HEALTH Potassium [Moles/Vol]3.6 mmol/LLow3.7 - 5.3 mmol/LBON SECOURS MERCY HEALTHSodium [Moles/Vol]141 mmol/L135 - 144 mmol/LBON SECOURS TUSCARAWAS HOSPITALPrimordialUrea nitrogen [Mass/Vol]20 mg/dL8 - 23 mg/dLBON SECOURS HaptikUrea nitrogen/Creatinine (Bld) [Mass ratio]65Kuvd7 - 20BON SECOURS TUSCARAWAS HOSPITALY PARKWOOD HOSPITALBON SECOURS TUSCARAWAS HOSPITALShenandoah Studios HEALTH CBC with Auto Differentialon 85-82-7925Uraltnmj Eos #0.20BON SECOURS MERCY BiotteryAbsolute Immature Granulocyte0.03BON SEC[facility]RS [facility] HEALTHAbsolute Lymph # 1.05LowBON SECOURS MERCY BiotteryAbsolute [place] #0.78BON SECOURS MERCShenandoah Studios HEALTH Basophils (Bld) [#/Vol]0.04 10*3/uLBON SECOURS HaptikBasophils/100 WBC (Bld)1 %0 - 2 %B[facility] BiotteryEosinophils/100 WBC (Bld)3 %1 - 4 %BON SECOURS MERCPrimordialHematocrit (Bld) [Volume fraction]43.3 %36.3 - 47.1 %BON SECOURS HaptikHemoglobin (Bld) [Mass/Vol]14.3 g/dL11.9 - 15.1 g/dLBON SECOURS MERCPrimordialImmature granulocytes/100 WBC (Bld)1 %Zlvf9XAO SECOURS Watsi HEALTHInterpretation and review of laboratory resultsAbnormalBON SECMiNOWirelessY BiotteryLymphocytes/100 WBC (Bld)16 %Low24 - 43 %BON SECOURS HaptikMCH (RBC) [Entitic mass]28.9 pg25.2 - 33.5 pgBON SECOURS TUSCARAWAS HOSPITALY HEALTHMCHC (RBC) [Mass/Vol]33.0 g/dL28.4 - 34.8 g/dLBON SECOURS MERCY HEALTHMCV (RBC) [Entitic vol]87.5 fL82.6 - 102.9 fLBON SECOURS MERCY HEALTHMonocytes/100 WBC (Bld)12 %3 - 12 %[facility] HEALTHNRBC Automated0.00.0 per 100 WBCBON SECOURS MERCY HEALTHPlatelet distribution width (Bld) [Ratio]13.2 %11.8 - 14.4 %[facility] HEALTHPlatelet mean volume (Bld) [Entitic vol]10.9 fL8.1 - 13.5 fLBON SECOURS MERCY HEALTHPlatelets (Bld) [#/Vol]227 10*3/uLBON SECOURS [facility] HEALTH RBC (Bld) [#/Vol]4.95 10*6/uL3.95 - 5.11 m/uLBON SECOVERTON BROOKS [facility] HEALTHSegmented neutrophils/100 WBC (Bld)67 %High36 - 65 %BON SECOURS TUSCARAWAS HOSPITALY HEALTHSegs Absolute 4.37B[facility] MER[facility] HEALTHWBC (Bld) [#/Vol]6.5 10*3/uLBON SECOURS [facility] HEALTH BON SECOURS TUSCARAWAS HOSPITALY HEALTHEKG 12 LeadOrdered By: Yanelis Quezada on 21-71-0475Rhutoh Vnsi50VLTUFP SECPelican Therapeutics TUSCARAWAS HOSPITALShenandoah Studios HEALTH Work Phone: P Mhpv12vhnwqbePGJ [facility] HEALTH Work Phone: P-R Lfbctmyp783 msBON SECOURS MERCY HEALTH Work Phone: Q-T Bqchzzmf930 msBON SECOURS MERCY HEALTH Work Phone: QRS Xujyiwau936 msBON SECOURS [facility]CY [facility]ALTH Work Phone: QTc Calculation (Stephan)495 msBON SECOURS [facility]CY [facility]ALTH Work Phone: R Wypv6vxxneaaVMR SECMiNOWirelessY HEALTH Work Phone: T Vaaz89ewzncmbJRW SECMiNOWirelessY HEALTH Work Phone: Ventricular Mhyl73WZRLCG LiveRSVP Work Phone: BON [employer] Phone: EKG 12 Leadon 39-52-5234Sbeitt sinus rhythm Right bundle branch block Abnormal ECG No previous ECGs available Confirmed by YANELIS QUEZADA ([id number]) on 01/03/2023 11:52:02 PMCED[facility] Yanelis Quezada MD - 01/03/2023 Normal sinus rhythm Right bundle branch block Abnormal ECG No previous ECGs available Confirmed by YANELIS QUEZADA ([id number]) on 01/03/2023 11:52:02 PM [facility] [employer] Phone: bUN & Creatinineon 44-28-1271Lcrbhmjkkv [Mass/Vol]0.78 mg/dL0.50 - 0.90 mg/dLBON LiveRSVPGFR/1.73 sq M.predicted MDRD (S/P/Bld) [Vol rate/Area]- PINFBON LiveRSVPComment on above: These results are not intended [...] Urea nitrogen [Mass/Vol]22 mg/dL8 - 23 mg/dLBON dotCloudCT UROGRAMon . Bilateral nonobstructing nephroliths larger on the right side of 6.5 mm. No ureteric obstruction. 2. Mild hepatic steatosis. Granulomas in liver and spleen. 3. Atherosclerotic disease. 4. Postsurgical changes lower lumbar spine. Other findings as above. [facility] RIS CONSOLIDATEDEXAMINATION: CT UROGRAM 12/26/2022 1:23 pm [...] acute osseous or subcutaneous soft tissue abnormality. [facility] Katelyn Álvarez MD - 12/26/2022 EXAMINATION: [...] lower lumbar spine. Other findings as above. [employer] Work Phone: radiology Study observation (narrative)[employer] Phone: ct UROGRAMOrdered By: Katelyn Aceves on 95-02-1677JSV [employer] Phone: Urinalysis with Microscopicon 33-76-2997Ytrdjfhu, UA2+ AbnormalNoneBON LiveRSVPBilirubin UrineNegativeNEGATIVESUMMIT HEALTHCARE REGIONAL [facility]ENTER LiveRSVPColor, UAYellowYellowSUMMIT HEALTHCARE REGIONAL MEDICAL CENTER LiveRSVPEpithelial Cells UA2 TO 5BON LiveRSVPGlucose Auto test strip (U) [Mass/Vol]NegativeNEGATIVE TelikInterpretation and review of laboratory resultsAbnormal [facility] [employer] HEALTHKetones (U) [Mass/Vol]TRACEAbnormalNEGATIVESUMMIT HEALTHCARE REGIONAL MEDICAL CENTER LiveRSVPLeukocyte esterase Auto test strip Ql (U)NegativeNEGATIVESUMMIT HEALTHCARE REGIONAL [facility]ENTER [employer] HEALTHMucus, UA1+AbnormalNoneBON LiveRSVPNitrite Auto test strip Ql (U)NegativeNEGATIVESUMMIT HEALTHCARE REGIONAL [facility] [employer] HEALTHProtein (U) [Mass/Vol]6.0 mg/dL5.0 - 9.0BON [employer] HEALTHProtein (U) [Mass/Vol]1+AbnormalNEGATIVE [facility] LiveRSVPRBC clumps Auto (Urine sed) [#/Area]5 TO 10BON WHITE HOSPITALSpecific [place], UA1.664Mxur0.010 - 1.020BON [address] [address] [facility] Turbidity UAClearClearBON SECWILSON STREET HOSPITALUrine HgbTRACEAbnormalNEGATIVEBON SECWILSON STREET HOSPITALUrobilinogen, UrineNormalNormalBON SECWILSON STRE[address] HOSPITALWBC, UA0 TO [address] HOSPITALBON SECWILSON STREET HOSPITALXR RIBS LT PA Sophia 93-70-5078QQ RIBS LT PA CHEXAM: XR RIBS LT PA CH HISTORY: Rib pain COMPARISON: 05/28/2022 TECHNIQUE: Four views of the left ribs. FINDINGS: No rib fracture indentified. The lungs are clear. IMPRESSION: 1. No acute rib fracture identified. Electronically authenticated by: JANEEN POOLE Date: 2022-12-03 10:28[facility] CampusMRI BRAIN WO W CONon 00-50-0697FYL BRAIN WO W CONEXAMINATION: MRI BRAIN WO [...] Electronically authenticated by: YANELIS ENGEL Date: 2022-10-22 13:55[facility] CampusCREATININEon 05-78-3431Uggkmmrhkq [Mass/Vol]0.94 mg/dLNormal 0.55-1.02[facility]walk Memorial HospitalComment on above:Performed By: #### CREA ####[facility] [address] [place], [place] [address]Zu. Yilan ChangEGFR-AF INDONESIAN>60Normal>=60The Summa HealthComment on above: Performed By: #### CREA ####[facility] [address] [place], [place] [address]Iu. Yilan ChangEGFR-NON AF INDONESIAN=60Normal>=60The [facility]ma HealthComment on above:Performed By: #### CREA ####[facility] [address] [place] [address]Dr. Yilan ChangMG MAMM SCREEN 3D NICKOLAS CADon 65-92-2268TU MAMM SCREEN 3D NICKOLAS CADPatient: ROBYN THORPE Exam Date: 08/13/2022 : 1955 Gender:F Ordering : JAIRO DALEY Admission #: [id number] Family : Order #: [id number] CLICK HERE TO VIEW EXAM RADIOLOGY REPORT [...] kidney cancer at age 65. LOCATION: [facility] BREAST COMPOSITION: Scattered areas fibroglandular density. FINDINGS: [...] by: Xavier Hollingsworth MD on 08/14/2022 at 07:58NoUniversity Hospitals TriPoint Medical CenterXR DEXA BONE DENSITYon 38-22-8882IF DEXA BONE DENSITYEXAMINATION: XR DEXA BONE DENSITY, [...] Electronically authenticated by: YANELIS ENGEL Date: 2022-08-13 16:[address] [place] [address] ABD/PELVIS WO CONon 29-86-5378JE ABD/PELVIS WO CON EXAMINATION: CT ABD/PELVIS WO [...] Electronically authenticated by: YANELIS ENGEL Date: 2022-08-07 18:50NormChildren's Hospital of ColumbusECHOCARDIO M/2D COMPLETEon 85-20-2202KIWKAHROYP M/2D COMPLETE Patient: ROBYN THORPE Exam Date: 06/26/2022 : 1955 Gender:F Ordering : DR PRANAV TRINIDAD M.D. Admission #: [id number] Family : JAIRO DALEY Order #: [id number] CLICK HERE TO VIEW EXAM ECHOCARDIOGRAM REPORT [...] by: Hay Vargas M.D. on 06/26/2022 at 18:22[facility] West CampusAMYLASEon 72-31-3180Njzmqnk [Catalytic activity/Vol]48 U/WPpiczu95-015 [facility] HospitalComment on above:Performed By: #### CMP, YASH, LIPA ####[facility] [address] [place], [place] [address]Dr. Yilan ChangCBC AUTO DIFFon 42-46-3217QNKG #0.0 103/ulNormal0.0-0.1[facility]walk Memorial HospitalComment on above:Performed By: #### CBC ####[facility] [address] [place], [place] [address]Dr.Yilan ChangBasophils/100 WBC (Bld)0.5 %Normal0.2-2.0Norwalk [facility] HospitalComment on above:Performed By: #### CBC ####[facility] [address]uns[address] [place], [place] [address]Dr.Yilan ChangEO #0.2 103/ulNormal0.0-0.7The [facility]ma HealthComment on above:Performed By: #### CBC ####[facility] Osqbvsiz[address] [place], [place] [address]Dr.Yilan ChangEosinophils/100 WBC (Bld)2.4 %Normal 0.9-7.0The [facility] HealthComment on above:Performed By: #### CBC ####[facility] Xwqhijigar[address] [place], [place] [address]Dr.Tapan Gordon Erythrocyte distribution width (RBC) [Ratio]13.0 %Zoymwc98.0-15.0The [facility] HealthComment on above:Performed By: #### CBC ####[facility] Opvnljbkkp[address] [place], [place] [address]Dr.Tapan GordonHematocrit (Bld) [Volume fraction]43.6 %Mgymvg03.0-48.0The [facility] HealthComment on above:Performed By: #### CBC ####[facility] Inamlhoval[address] [place], [place] [address]Dr.Tapan GordonHemoglobin (Bld) [Mass/Vol]14.6 g/dL Bnsyuz38.0-16.0The [facility] HealthComment on above:Performed By: #### CBC ####[facility] Uxwbnkacas[address] [place], [place] [address]Dr. Yilan ChangIG #0.02 10e3/ulNormal0.00-0.03The [facility] HealthComment on above: Performed By: #### CBC ####[facility] [address]aigklcibp[address] [place], [place] [address]Dr.Tapan ChangIG %0.3 %Normal0.0-0.5The [facility] HealthComment on above:Performed By: #### CBC ####[facility] Sonzgiksdm[address] [place], [place] [address]Dr.Tapan ChangLYMPH #1.5 103/ulNormal1.2-3.8The [facility] HealthComment on above:Performed By: #### CBC ####[facility] [address]fumqzcadx[address] [place], [place] [address]Dr. Tapan GordonLymphocytes/100 WBC (Bld)23.4 %Riumgk03.5-60.0The [facility] Comment on above:Performed By: #### CBC ####[facility] Ehxpjxqpxt[address] [place], [place] [address]Dr.Malikalan EvanMANUAL DIFF REQNONormalThe [facility] HealthComment on above:Performed By: #### CBC ####[facility] [address] [place] [address]Dr.Tapan EvanH (RBC) [Entitic mass]29.5 gwXlbvkj50.7-34.0The [facility] HealthComment on above: Performed By: #### CBC ####[facility] Nhpirfdinx[address] [place], [place] [address]Dr.Tapan EvanHC (RBC) [Mass/Vol]33.5 g/dLNormal 29.9-35.2The [facility] HealthComment on above:Performed By: #### CBC ####[facility] [address]aiujwqldd[address] [place], [place] [address]Dr. Malikapalma GordonV (RBC) [Entitic vol]88.1 fIIftrsf06.0-99.0The [facility] Comment on above:Performed By: #### CBC ####[facility] Hpwrwlnnth[address] [place], [place] [address]Dr.Tapan GordonMONO #0.6 103/ulNormal0.3-0.8 The [facility] HealthComment on above:Performed By: #### CBC ####[facility] Cprbhhspgu[address] [place], [place] [address]Dr.Malikapalma Gordon Monocytes/100 WBC (Bld)9.8 %Normal1.7-12.0The [facility] HealthComment on above: Performed By: #### CBC ####[facility] Vtcnefkgzz[address] [place], [place] [address]Dr.Malikapalma EvanNEUT #4.0 103/ulNormal1.4-6.5The [facility] HealthComment on above:Performed By: #### CBC ####[facility] [address]lemrkwkp[address] [place], [place] [address]Dr.Malikapalma GordonNeutrophils/100 WBC (Bld)63.6 %Tkklrf92.0-75.0The [facility] HealthComment on above:Performed By: #### CBC ####[facility] Ibuuuyjkiy[address] [place], [place] [address]Dr.Tapan GordonPlatelet mean volume (Bld) [Entitic vol]10.3 fLNormal9.5-13.5 The [facility] HealthComment on above:Performed By: #### CBC ####[facility] [address]wr[address] [place], [place] [address]Yl.Tapan GordonPLT258 103/hrRwgtyv960-513Ghx [facility] on above:Performed By: #### CBC ####[facility] [address]tmjh[address] [place], [place] [address]Rp. Tapan GordonRBC4.95 106/ulNormal4.20-5.40The [facility] HealthComment on above: Performed By: #### CBC ####[facility] Hthmipyqkv64[address] [place], [place] [address]Ts.Tapan GordonWBC6.3 103/ulNormal4.0-11.0The [facility] HealthComment on above:Performed By: #### CBC ####[facility] Z[address]oaduh[address] [place], [place] [address]Ti.Tapan GordonCT ABD/PELVIS WO CONon [id number] ABD/PELVIS WO CONEXAMINATION: CT ABD/PELVIS WO CON, [...] Electronically authenticated by: BRAULIO LASSITER Date: 2022-06-19 10:13[facility] URINE PROFILEon [id number] Ql (U)NegativeNormal NEGATIVENorwalk Memorial HospitalComment on above:Performed By: #### GIBSON, ERUR #### [facility] [address] [place] [address] [address] Tapan Rosarioarity (U)CLEARNormalCLEARNorwalk Memorial HospitalComment on above: Performed By: #### GIBSON, ERUR #### [facility] [address] [address] [address] Tapan Alcantar (U)LT. YELLOWNormalYELLOWNorwalk Memorial HospitalComment on above:Performed By: #### GIBSON, ERUR #### [facility] [address] [address] [address] Tapan Mota micrscopic examination will be performed if indicated. NormalNorwalk Memorial HospitalComment on above:Performed By: #### GIBSON, ERUR #### [facility] [address] [address] [address] Tapan GordonGlucose Ql (U)NegativeNormalNEGATIVENorwalk Memorial HospitalComment on above:Performed By: #### GIBSON, ERUR #### [facility] [address] [address] [address] Tapan GordonHemoglobin Ql (U)LARGEAbnormalNEGATIVENorwalk Memorial Hospital Comment on above:Performed By: #### GIBSON, ERUR #### [facility] [address] [address] [address] Tapan GordonKetones Ql (U)NegativeNormalNEGATIVENorwalk Memorial HospitalComment on above:Performed By: #### GIBSON, ERUR #### [facility] [address] [address] [address] Tapan GordonLEUKOCYTESNegativeNormalNEGATIVENorwalk Memorial HospitalComment on above:Performed By: #### LIZABETH ARREAGAR #### [facility] [address] [address] [address] Tapan Coellotrite Ql (U)NegativeNormalNEGATIVEThe [facility] HealthComment on above:Performed By: #### LIZABETH ARERAGAR #### [facility] [address] [address] [address] Tapan GordonpH (U)7.0 [pH]Normal5-9The [facility] HealthComment on above: Performed By: #### BOONE ARREAGA #### [facility] [address] [place] [address] Dr. Tapan GordonSPEC GRAVITY1.899Lituzu9.005-<=1.025The [facility] HealthComment on above:Performed By: #### LIZABETH ARREAGAR #### [facility] [address] [place] [address] Dr. Tapan Duckworth PROTEINTRACENormalNEGATIVE/ TRACEThe [facility] HealthComment on above:Performed By: #### BOONE ARREAGA #### [facility] [address] [place] [address] Dr. Tapan Rolle MICRO INDINDICATEDNormalThe [facility] HealthComment on above: Performed By: #### BOONE ARREAGA #### [facility] [address] [place] [address] Dr. Tapan Mcmahanbilinogen Qn (U)2.0 {Aleida'U}/dLAbnormal0.2 - 1.0The [facility] HealthComment on above:Performed By: #### LIZABETH ARREAGAR #### [facility] [address] [place] [address] Dr. Tapan GordonLIPASEon 15-31-1586Jzaffx [Catalytic activity/Vol]182.0 U/LNormal 73.0-393.0The [facility] HealthComment on above:Performed By: #### CMP, YASH, LIPA ####[facility] [address] [place] [address]Dr. Yilan ChangOCC BLD IMMUNO SCREENon 36-72-7943XELFOJ BLOODNegativeNormal NEGATIVEThe [facility] HealthComment on above:Performed By: #### OBSCRN ####[facility] [address] [place] [address]Dr. Yilan ChangPROF 14(COMP METB)on 69-07-2069Eoyyeiz [Mass/Vol]3.5 g/dLNormal 3.4-5.0The [facility] HealthComment on above:Performed By: #### CMP, YASH, LIPA ####[facility] [address] [place] [address]Dr. Malikalan ChangAlbumin/Globulin [Mass ratio]1.0 {ratio}NormalThe [facility] Comment on above:Performed By: #### CMP, YASH, LIPA ####[facility] Y[address] [place] [address]Dr. Malikalan ChangALP [Catalytic activity/Vol]76 U/TNhkjnt24-185Ete [facility] HealthComment on above:Performed By: #### CMP, YASH, LIPA ####[facility] Jrgftyyelj[address] [place] [address]Dr. Yilan ChangALT [Catalytic activity/Vol]64 U/L Critically wybe53-49Aat [facility] HealthComment on above:Performed By: #### CMP, YASH, LIPA ####[facility] [address]sm[address] [place] [address]Dr. Yilan ChangAnion gap [Moles/Vol]11.2 mmol/LNormalThe [facility] HealthComment on above:Performed By: #### CMP, YASH, LIPA ####[facility] Ne[address]wfjv[address] [place] [address]Dr. Yilan ChangAST [Catalytic activity/Vol]38 U/LCritically kvvy17-10Sjq [facility] HealthComment on above:Performed By: #### CMP, YASH, LIPA ####[facility] [address] [place], [place] [address]Dr. Yilan ChangBilirubin [Mass/Vol]0.7 mg/dL Normal0.2-1.0The [facility] HealthComment on above:Performed By: #### CMP, YASH, LIPA ####[facility] [address] [place] [address]Dr. Yilan ChangCalcium [Mass/Vol]8.7 mg/dLNormal8.5-10.1The [facility] HealthComment on above:Performed By: #### CMP, YASH, LIPA ####[facility] [address]yp[address] [place] [address]Dr. Yilan ChangChloride [Moles/Vol]104 mmol/AXttzau98-257Wpx [facility] HealthComment on above:Performed By: #### CMP, YASH, LIPA ####[facility] I[address]swiwk[address] [place] [address]Dr. Yilan ChangCO2 [Moles/Vol]29.6 mmol/LNormal 21.0-32.0The [facility] HealthComment on above:Performed By: #### CMP, YSAH, LIPA ####[facility] [address] [place] [address]Dr. Yilan ChangCreatinine [Mass/Vol]0.85 mg/dLNormal0.55-1.02The [facility] Comment on above:Performed By: #### CMP, YASH, LIPA ####[facility] [address] [place] [address]Dr. Yilan ChangEGFR-AF INDONESIAN>60Normal>=60The [facility] HealthComment on above:Performed By: #### CMP, YASH, LIPA ####[facility] [address]esp[address] [place], [place] [address]Dr. Yilan ChangEGFR-NON AF INDONESIAN>60Normal>=60The [facility] Comment on above:Performed By: #### CMP, YASH, LIPA ####[facility] U[address]uzagecg[address] [place], [place] [address]Dr. Yilan ChangGlobulin (S) [Mass/Vol]3.6 g/dLNormalThe [facility] HealthComment on above:Performed By: #### CMP, YASH, LIPA ####[facility] X[address]ushtm[address] [place] [address]Dr. Yilan ChangGlucose [Mass/Vol]125 mg/dLCritically ugkn44-801Sgz [facility]Comk[facility] on above:Performed By: #### CMP, YASH, LIPA ####[facility] [address]by[address] [place] [address]Dr. Yilan Gordon Potassium [Moles/Vol]3.8 mmol/LNormal3.5-5.1The [facility] HealthComment on above:Performed By: #### CMP, YASH, LIPA ####[facility] Y[address]mxvsit[address] [place] [address]Dr. Yilan ChangProtein [Mass/Vol]7.1 g/dL Normal6.4-8.2The [facility] HealthComment on above:Performed By: #### CMP, YASH, LIPA ####[facility] X[address]us[address]uz[address] [place], [place] [address]Dr. Yilan ChangSodium [Moles/Vol]141 mmol/AAzbxaa092-071Bng [facility] on above:Performed By: #### CMP, YASH, LIPA ####[facility] On[address]dlk[address] [place] [address]Dr. Yilan ChangUrea nitrogen [Mass/Vol]22.0 mg/dLCritically high7.0-18.0The [facility]Comkresge eye institute on above:Performed By: #### CMP, YASH, LIPA ####[facility] [address]bi[address] [place] [address]Dr. Yilan ChangUrea nitrogen/Creatinine [Mass ratio]25.9 mg/mgNormalThe [facility] HealthComkresge eye institute on above:Performed By: #### CMP, YASH, LIPA ####[facility] [address] [place] [address]Dr. Yilan ChangURINE MICROSCOPIC ONLYon 06-19-2022 BACTERIATRACEAbnormalNONE SEENThe [facility] HealthComment on above:Performed By: #### BOONE ARREAGA #### [facility] [address] [address] [address] Tapan Link identified Cx Nom (U)NOT INDICATEDNormalThe [facility] HealthComment on above:Performed By: #### GIBSON, ERUR #### [facility] [address] [address] [address] Tapan oPonNONMarion SEENNormalNONE SEENThe [facility] HealthComment on above:Performed By: #### GIBSON, ERUR #### [facility] [address] [address] [address] Tapan Luuystals LM Nom (Urine sed)NONE SEENNormalNONE SEENThe [facility]Comkresge [facility] institute on above:Performed By: #### GIBSON, ERUR #### [facility] [address] [place] [address] Dr. Phelan ChangEpithelial cells LM Ql (Urine sed)FEWAbnormalNONE SEEN /RAREThe [facility] HealthComment on above:Performed By: #### GIBSON, ERUR #### [facility] [address] [place] [address] Dr. Tapan EmeryCOUSNONE SEENNormalNONE SEENNorwalk Memorial HospitalComkresge eye institute on above:Performed By: #### GIBSON, ERUR #### [facility] [address] [place] [address] Dr. Tapan GomezIrbmjYMJ13-09Jjvnfpyf0-8Emy [facility] HealthComment on above: Performed By: #### GIBSON, ERUR #### [facility] [address] [place] [address] Dr. Tapan GordonWBCNONE SEENNormalNONE SEENNorwalk Memorial HospitalComkresge eye institute on above: Performed By: #### GIBSON, ERUR #### [facility] [address] [place] [address] Dr. Tapan GordonCT LUNG CANCER SCREENINGon [id number] LUNG CANCER SCREENING EXAMINATION: CT LUNG CANCER [...] Electronically authenticated by: XAVIER HOLLINGSWORTH Date: 2022-05-29 07:22[facility] Vital Signs Date TimeVital SignValuePerforming IydflbnnuOxvgybnl51-63-0554 09:33-0400Body plezjd234.75 cmValeroger Daley ORE FEEDER-C Work Phone: [facility]09-16-2025 09:33-0400 Body mass index (BMI) [Ratio]39.2 kg/x8Wbgqsgk Daley ORE FEEDER-C Work Phone: [facility]09-16-2025 09:33-0400 Body zblwny42.88 kgLaurarimarion Daley ORE FEEDER-C Work Phone: [facility]09-16-2025 09:33-0400 Diastolic blood rnbglnhu10 mm[Hg]Jairo Sweetillo ORE FEEDER-C Work Phone: [facility]09-16-2025 09:33-0400 Heart rate64 /minJairo Daley ORE FEEDER-C Work Phone: [facility]09-16-2025 09:33-0400 Respiratory rate18 /minJairo Sweetillo ORE FEEDER-C Work Phone: [phone]09-16-2025 09:33-0400 SaO2% (BldA) [Mass fraction]94 %Jairo Sweetillo ORE FEEDER-C Work Phone: [phone]09-16-2025 09:33-0400 Systolic blood kpblpumt249 mm[Hg]Jairo Daley ORE FEEDER-C Work Phone: [facility]04-04-2025 09:48-0400 Diastolic blood kinwmqzz63 mm[Hg]Jairo Daley ORE FEEDER-C Work Phone: [phone]04-04-2025 09:48-0400 Heart rate63 /minJairo Daley ORE FEEDER-C Work Phone: [facility]04-04-2025 09:48-0400 Systolic blood iqmhdtcj055 mm[Hg]Jairo Daley ORE FEEDER-C Work Phone: [facility]02-27-2025 13:34-0500 Body hhyzcr098 cmValeroger Sweetillo MANAGER CHANGE-INTERNET SALESPERSON Work Phone: [facility]02-27-2025 13:34-0500Body mass index (BMI) [Ratio]37.69 kg/p9Cjzyonh Daley MANAGER CHANGE-INTERNET SALESPERSON Work Phone: [facility]02-27-2025 13:34-0500Body qebsgbysifj07.59 [degF]Jairo Sweetillo MANAGER CHANGE-INTERNET SALESPERSON Work Phone: [facility]02-27-2025 13:34-0500Body .48 kgJairo Daley MANAGER CHANGE-INTERNET SALESPERSON Work Phone: [facility]02-27-2025 13:34-0500Diastolic blood btzkocnf87 mm[Hg]Jairo Sweetillo MANAGER CHANGE-INTERNET SALESPERSON Work Phone: [facility]02-27-2025 13:34-0500Heart rate 80 /minLaurarie Daley MANAGER CHANGE-INTERNET SALESPERSON Work Phone: [facility]02-27-2025 13:34-0500 Respiratory rate20 /minValerie Daley MANAGER CHANGE-INTERNET SALESPERSON Work Phone: [facility]02-27-2025 13:34-6252HlN4% (BldA) [Mass fraction]98 %Jario Daley MANAGER CHANGE-INTERNET SALESPERSON Work Phone: [facility]02-27-2025 13:34-0500Systolic blood jgsiufqb772 mm[Hg]Jairo Daley MANAGER CHANGE-INTERNET SALESPERSON Work Phone: [facility]02-26-2025 15:21-0500Body jkblog476.75 cmValerie Daley ORE FEEDER-C Work Phone: [facility]02-26-2025 15:21-0500 Body mass index (BMI) [Ratio]38.3 kg/i5Demygqv Daley ORE FEEDER-C Work Phone: [facility]02-26-2025 15:21-0500 Body frtivs14.61 kgLaurarie Daley ORE FEEDER-C Work Phone: [facility]02-26-2025 15:21-0500 Diastolic blood gvczjojn94 mm[Hg]Jairo Daley ORE FEEDER-C Work Phone: [facility]02-26-2025 15:21-0500 Heart rate68 /minValerie Daley ORE FEEDER-C Work Phone: [facility]02-26-2025 15:21-0500 Respiratory rate18 /minValerie Daley ORE FEEDER-C Work Phone: [facility]02-26-2025 15:21-0500 SaO2% (BldA) [Mass fraction]92 %Jairo Daley ORE FEEDER-C Work Phone: [facility]02-26-2025 15:21-0500 Systolic blood ilvpoutu698 mm[Hg]Jairo Daley ORE FEEDER-C Work Phone: [facility]01-15-2025 12:58-0500 Body aupxpt522 cmVjeff Daley MANAGER CHANGE-INTERNET SALESPERSON Work Phone: [facility]01-15-2025 12:58-0500Body mass index (BMI) [Ratio]36.28 kg/t0YuusjlvJairo Daley MANAGER CHANGE-INTERNET SALESPERSON Work Phone: [facility]01-15-2025 12:58-0500Body exuapxnxbpi69.59 [degF]Jairo Daley MANAGER CHANGE-INTERNET SALESPERSON Work Phone: [facility]01-15-2025 12:58-0500Body .9 kgJairo Daley MANAGER CHANGE-INTERNET SALESPERSON Work Phone: [facility]01-15-2025 12:58-0500Diastolic blood yvvgoofb56 mm[Hg]Jairo Sweetillo MANAGER CHANGE-INTERNET SALESPERSON Work Phone: [facility]01-15-2025 12:58-0500Heart rate 61 /minJairo Daley MANAGER CHANGE-INTERNET SALESPERSON Work Phone: [facility]01-15-2025 12:58-0500 Respiratory rate18 /minJairo Sweetillo MANAGER CHANGE-INTERNET SALESPERSON Work Phone: [facility]01-15-2025 12:58-9799JzS7% (BldA) [Mass fraction]94 %Jairo Daley MANAGER CHANGE-INTERNET SALESPERSON Work Phone: [facility]01-15-2025 12:58-0500Systolic blood mm[Hg]Jairo Daley MANAGER CHANGE-INTERNET SALESPERSON Work Phone: [facility]11-25-2024 14:20-0500Body fqcrgo487 cmVjeff Sweetillo MANAGER CHANGE-INTERNET SALESPERSON Work Phone: [facility]11-25-2024 14:20-0500Body mass index (BMI) [Ratio]36 kg/u6JywqgekJairo Daley APRN-INTERNET SALESPERSON Work Phone: [facility]11-25-2024 14:20-0500Body bafsprtqrhh40.9 [degF]Jairo Daley APRN-INTERNET SALESPERSON Work Phone: [facility]11-25-2024 14:20-0500Body fiyzuv45.17 kgJairo Daley APRN-INTERNET SALESPERSON Work Phone: [facility]11-25-2024 14:20-0500Diastolic blood prsmapke03 mm[Hg]Jairo Daley APRN-INTERNET SALESPERSON Work Phone: [facility]11-25-2024 14:20-0500Heart rate 67 /minJairo Daley APRN-INTERNET SALESPERSON Work Phone: [facility]11-25-2024 14:20-0500 Respiratory rate18 /minJairo Daley APRN-INTERNET SALESPERSON Work Phone: [facility]11-25-2024 14:20-4678QkD1% (BldA) [Mass fraction]91 %Jairo Daley APRN-INTERNET SALESPERSON Work Phone: [facility]11-25-2024 14:20-0500Systolic blood ljtytxid940 mm[Hg]Jairo Daley APRN-INTERNET SALESPERSON Work Phone: [facility]10-22-2024 08:15-0400Body bystze395 cmValeroger Daley APRN-INTERNET SALESPERSON Work Phone: [facility]10-22-2024 08:15-0400Body mass index (BMI) [Ratio]36.6 kg/u1LururfjJairo Daley APRN-INTERNET SALESPERSON Work Phone: [facility] Bolzgb21-91-7532 08:15-0400Body fucnnfubjbe95.5 [degF]Jairo Daley MANAGER CHANGE-INTERNET SALESPERSON Work Phone: [facility]10-22-2024 08:15-0400Body gabtdt18.71 kgJairo Daley MANAGER CHANGE-INTERNET SALESPERSON Work Phone: [facility]10-22-2024 08:15-0400Diastolic blood yjychoym79 mm[Hg]Jairo Daley MANAGER CHANGE-INTERNET SALESPERSON Work Phone: [facility]10-22-2024 08:15-0400Heart rate 64 /minJairo Daley MANAGER CHANGE-INTERNET SALESPERSON Work Phone: [facility]10-22-2024 08:15-0400 Respiratory rate18 /minJairo Daley MANAGER CHANGE-INTERNET SALESPERSON Work Phone: [facility]10-22-2024 08:15-5698WdQ7% (BldA) [Mass fraction]92 %Jairo Daley MANAGER CHANGE-INTERNET SALESPERSON Work Phone: [facility]10-22-2024 08:15-0400Systolic blood csjhedou112 mm[Hg]Jairo Daley MANAGER CHANGE-INTERNET SALESPERSON Work Phone: [facility]10-02-2024 09:40-0400Diastolic blood hulsuzpo17 mm[Hg]ORE FEEDER-C Jairo Sweetillo Work Phone: [facility]10-02-2024 09:40-0400 Heart rate72 /minNP-C Jairo Sweetillo Work Phone: [facility]10-02-2024 09:40-0400 Respiratory rate20 /minNP-C Jairo Daley Work Phone: [facility]10-02-2024 09:40-0400 SaO2% (BldA) [Mass fraction]98 %ORE FEEDER-C Jairo Daley Work Phone: [facility]10-02-2024 09:40-0400 Systolic blood zddvzifu567 mm[Hg]ORE FEEDER-C Jairo Daley Work Phone: [facility]10-02-2024 06:51-0400 Body ipwaup843.48 cmNP-C Jairo Daley Work Phone: [facility]10-02-2024 06:51-0400 Body hlltla56.98 kgNP-C Jairo Daley Work Phone: [facility]09-19-2024 12:09-0400 Body khpuqb125.3 cmCristobal Christopher DPM Work Phone: [facility] CenterNeilbawtfg37-97-3771 12:09-0400Body mass index (BMI) [Ratio]35.22 kg/a8QzgwjdsfCristobal Owens DPM Work Phone: [facility] CenterUcvxrfkdbu98-50-4635 12:09-0400Body neyvbd73.63 kgCristobal Owens DPM Work Phone: [facility] CenterRsexexxhmw10-71-3617 12:09-0400Diastolic blood mmziwoqv56 mm[Hg]Cristobal Owens DPM Work Phone: [facility] CenterFrscywydfu11-75-5619 12:09-0400Heart rate74 /min Cristobal Owens DPM Work Phone: [facility] CenterMcwudrmgsw81-84-1204 12:09-0400Respiratory rate18 /minCristobal Owens DPM Work Phone: [facility] CenterIhhvojqjgd42-08-5268 12:09-0400Systolic blood cvoujdah971 mm[Hg]Cristobal Owens DPM Work Phone: [facility] CenterBcpdwqgixw83-98-3061 09:24-0400Body ookdlu991 cm Jairo Daley MANAGER CHANGE-INTERNET SALESPERSON Work Phone: [facility]06-24-2024 09:24-0400Body mass index (BMI) [Ratio]37.36 kg/t8GyqtramJairo Daley MANAGER CHANGE-INTERNET SALESPERSON Work Phone: [facility] Phtlwm02-58-9624 09:24-0400Body slnjsicffpb62.81 [degF]Jairo Daley APRN-INTERNET SALESPERSON Work Phone: [facility] Iqpqhf01-58-0787 09:24-0400Body vlsfao67.66 kgJaior Daley APRN-INTERNET SALESPERSON Work Phone: [facility] Vmnmla42-39-2649 09:24-0400Diastolic blood qbdvrqoe09 mm[Hg]Jairo Daley APRN-INTERNET SALESPERSON Work Phone: [facility] Unxkgn06-58-0090 09:24-0400Heart rate 64 /minJairo Daley APRN-INTERNET SALESPERSON Work Phone: [facility] Czwmbb84-08-4059 09:24-0400 Respiratory rate18 /minJairo Daley APRN-INTERNET SALESPERSON Work Phone: [facility]06-24-2024 09:24-8000KrL8% (BldA) [Mass fraction]95 %Jairo Daley APRN-INTERNET SALESPERSON Work Phone: [facility] Hkezlh61-58-3545 09:24-0400Systolic blood dkvotewk201 mm[Hg]Jairo Daley APRN-INTERNET SALESPERSON Work Phone: [facility] Teecnp10-59-4726 09:40-0500Body edtnvn403 cmValeroger Daley APRN-INTERNET SALESPERSON Work Phone: [facility] Urqatu82-95-5895 09:40-0500Body mass index (BMI) [Ratio]36.6 kg/r1GanweekJairo Daley APRN-INTERNET SALESPERSON Work Phone: [facility] Bxlxla21-99-0155 09:40-0500Body ksbhaopwcjf41.01 [degF]Jairo Daley APRN-INTERNET SALESPERSON Work Phone: [facility] Zctzfl11-29-5981 09:40-0500Body zkqnze17.71 kgJairo Daley MANAGER CHANGE-INTERNET SALESPERSON Work Phone: [facility]02-22-2024 09:40-0500Diastolic blood gqeywjxc01 mm[Hg]Jairo Daley MANAGER CHANGE-INTERNET SALESPERSON Work Phone: [facility]02-22-2024 09:40-0500Heart rate 64 /minJairo Daley APRN-INTERNET SALESPERSON Work Phone: [facility]02-22-2024 09:40-8015RrH0% (BldA) [Mass fraction]93 %Jairo Daley MANAGER CHANGE-INTERNET SALESPERSON Work Phone: [facility]02-22-2024 09:40-0500Systolic blood qlgpcfuo066 mm[Hg]Jairo Daley MANAGER CHANGE-INTERNET SALESPERSON Work Phone: [facility]02-15-2024 15:54-0500Body xuktqv762.3 cmCristobal Owens DPM Work Phone: [facility] CenterEopgymdtpq86-78-3898 15:54-0500Body mass index (BMI) [Ratio]35.22 kg/z5OdekprigCristobal Owens DPM Work Phone: [facility] CenterZvlbsxcfus10-79-9896 15:54-0500Body oclptw14.63 kgCristobal Owens DPM Work Phone: [facility] CenterErqhupqroa74-86-1486 15:54-0500Diastolic blood vufgpdjt60 mm[Hg]Cristobal Owens DPM Work Phone: [facility] CenterNqqsunjvdr89-74-1446 15:54-0500Heart rate88 /min Cristobal Owens DPM Work Phone: [facility] CenterMlmrylffsy73-50-6554 15:54-0500Systolic blood znionwsb174 mm[Hg]Cristobal Owens DPM Work Phone: noLA Healthcare Encounters Encounter DateEncounter TypeCare ProviderFacilityStart: 08-31-2025 End: 04-51-9376rlzmawqdxcNIHTKRT J CASTILLOSelect [facility] HospitalStart: 07-18-2025 End: 65-20-7222ripirrcricMVPJRTR Rick DALEYSelect Medical [facility] HospitalStart: 07-18-2025 End: 47-23-7533Veezuiempj hospital visit by Markos Britt CNP Work Phone: [facility] LABComment on above:Gross hematuria; Mixed incontinence; Incomplete bladder emptyingStart: 07-12-2025 End: 34-76-9637bcmhantsqiPYVQLPL Rick DALEYSelect Medical [facility] HospitalStart: 07-12-2025 End: 19-84-4870Rabtgdcpzz hospital visit by Aimee Huerta [address] [place] [address] RadiologyComment on above:Renal calculusStart: 07-05-2025 End: 32-40-6735zvibjcyxjyZwlryhb J Castillo ORE FEEDERNegar Work Phone: [facility] Work Phone: Start: 07-05-2025 End: 20-20-8062Fazjnsk encounter procedureGeorwhit Rea MD-Count Includes [facility] Cardiology Work Phone: Start: 06-24-2025 End: 97-07-1524jocoipjhazSkozrxnJairo URBINAFacility:Ortho/Sport Med Start: 04-18-2025 End: 61-83-8773grkewffiqxZjeqxfmJairo URBINAFacility:Ortho/Sport Med Start: 03-11-2025 End: 28-28-2376tpbgvhuxfqSreidwn Lynn Laudick PA-CFacility:Ortho/Sport MedStart: 02-28-2025 End: 52-18-9354dofqdgfohwTnowauqJairo URBINAFacility:Ortho/Sport Med Start: 02-15-2025 End: 39-31-0289iwkfzstxzlLstplwoJairo URBINAFacility:Ortho/Sport Med Start: 02-10-2025 End: 52-00-3445tqqyqadvxwUrgeg Jon Johnson DPMFacility:[facility] Start: 02-02-2025 End: 38-55-8362zljqkluefwYpuyjbtCelina Daley APRN-CNPFacility:[facility] Hilltart: 01-31-2025 End: 89-75-5532ctphcayyhaVrxadqqCelina Daley APRN-CNPFacility:[facility] Hilltart: 37-54-1001Txv-patient / Non-visitJairo Daley ORE FEEDER-C Work Phone: [facility]Car[facility] Work Phone: Start: 01-21-2025 End: 72-42-9074Inphbhp encounter procedureJairo Daley ORE FEEDER-C Work Phone: [facility] Ctr-Electrodiagnostics Work Phone: Start: 01-21-2025 End: 64-45-4667rfmzrifrigZrbwcsm J Castillo ORE FEEDER-C Work Phone: [facility] Work Phone: Start: 12-24-2024 End: 02-38-0449znziyujvfaUhuycConner Burden DPMFacility:Ortho/Sport MedStart: 12-16-2024 End: 94-00-3393Jhqtbf outpatient visit 25 minutesValeroger Daley APRN-INTERNET SALESPERSON Work Phone: [facility] - Family MedicineComment on above:Benign essential HTN (Primary Dx); Arthritis, multiple joint involvement; Fibromyalgia; Acquired hypothyroidism; Primary insomnia; Chronic bronchitis with emphysema ([facility]); History of depressionStart: 12-16-2024 End: 68-96-1217brubcdtvtuLKSLPMP J CASTILLOBrec[facility] Start: 12-15-2024 End: 06-48-2698lvsfishhpvGbfgnxw J Castillo ORE FEEDER-C Work Phone: [facility] Work Phone: Start: 12-15-2024 End: 22-04-8865Udceaqs encounter True Daley NP-C Work Phone: [facility]Car[facility] Work Phone: Start: 11-03-2024 End: 49-19-0569Hahabx outpatient visit 15 minutesJairo Daley MANAGER CHANGE-INTERNET SALESPERSON Work Phone: [facility] Internal Medicine - Family MedicineComment on above:Benign essential HTN (Primary Dx); Obesity, morbid ([facility]-HCC)Start: 11-03-2024 End: 43-78-6841lxkallztlwXOFIRAWLegacy Health Ambulatory PPG Start: 10-21-2024 End: 98-16-4324Twfxngftq encounterMisty Vanesa [facility] HospitalMediil [facility] Internal [facility] - Family [facility] Hospitaltart: 10-06-2024 End: 54-88-1654levxdsohglHQLCKOLGarfield County Public Hospital [facility] Start: 09-13-2024 End: 11-37-5734Ebevzzd encounter procedureJairo Daley MANAGER CHANGE-INTERNET SALESPERSON Work Phone: [facility] Internal Medicine - Family MedicineComment on above:Medicare annual wellness visit, subsequent (Primary Dx); COPD exacerbation ([facility])Start: 09-13-2024 End: 87-84-4165uscybocttfKWUEVTGGarfield County Public Hospital [facility] Start: 08-10-2024 End: 87-67-8707Moiqlz outpatient visit 25 minutesJairo Daley MANAGER CHANGE-INTERNET SALESPERSON Work Phone: [facility] Internal Medicine - Family MedicineComment on above:Fibromyalgia (Primary Dx); Need for influenza vaccination; Arthritis, multiple joint involvement; Anxiety and depression; Acquired hypothyroidism; Benign essential HTN; Primary insomnia; Chronic bronchitis with emphysema ([facility]); Mixed hyperlipidemia; Screening for diabetes mellitus (DM)Start: 08-10-2024 End: 51-09-9771beltvuglsaOWJOKURGarfield County Public Hospital [facility]ulatory [facility] Start: 24-48-6649Hsq-patient / Oba-sukfiTM-RTika Daley Work Phone: [facility] Work Phone: Start: 07-21-2024 End: 32-64-3870Lglrjjwlq to same day surgery centerLINDA Daley Work Phone: [facility] Ctr-Digestive Health Work Phone: Start: 07-21-2024 End: 17-76-0653qnzvbmugcdZQLINDA Daley Work Phone: [facility] Work Phone: Start: 07-09-2024 End: 22-38-7336Gnvgtqnpfw hospital visit by Markos Daley APRN - TESS Work Phone: mthz LaboratoryComment on above:Microscopic hematuria Start: 07-08-2024 End: 41-51-0404Mqtozf flowsJl Owens DPM Work Phone: [facility] CI PODIATRYStart: 07-08-2024 End: 15-25-8074Mhxhkt Omaira Owens DPM Work Phone: [facility] CI PODIATRYStart: 07-08-2024 End: 68-30-0621Gdixrg outpatient visit 15 minutesNicmirtha Owens DPM Work Phone: noms CI PODIATRYComment on above:Peroneal tendon tear, right, initial encounter (Primary Dx); Onychomycosis; Toe pain, bilateralStart: 07-08-2024 End: 52-78-8614fefpgroocvYAPTJEAX A BROWNNot AvailableStart: 05-13-2024 End: 83-33-1642Fxdupoipq encounterJairo Daley APRN-TESS Work Phone: [facility] - Family MedicineStart: 04-29-2024 End: 23-46-0540fiylamuaqxCHJRZNBJ A BROWNNot AvailableStart: 19-12-5052Kzk- patient / Upz-vvhlbOW-KLINDA Daley Work Phone: [facility] Work Phone: Start: 04-12-2024 End: 26-92-0659Nyabqw outpatient visit 25 minutesJairo Daley APRN-INTERNET SALESPERSON Work Phone: [facility] Internal Medicine - Family MedicineComment on above:Benign essential HTN (Primary Dx); Anxiety and depression; Arthritis, multiple joint involvement; Fibromyalgia; Acquired hypothyroidism; Primary insomnia; Chronic bronchitis with emphysema ([facility]); Special screening for malignant neoplasm of colonStart: 04-12-2024 End: 24-76-5259ahspvoslqwPNIYVGPGarfield County Public Hospital Ambulatory [facility] Start: 04-08-2024 End: 84-45-3970CqsdbpYvzsqipRoxie Daley APRN-INTERNET SALESPERSON Work Phone: [facility] Internal Medicine - Family MedicineComment on above:FibromyalgiaStart: 03-24-2024 End: 62-99-0496WjkuwiHqqchnbRoxie Daely APRN-INTERNET SALESPERSON Work Phone: [facility] Internal Medicine - Family MedicineComment on above:Primary insomniaStart: 03-11-2024 End: 22-76-8837unqtbwpyqdQBJVHUAU A BROWNNot AvailableStart: 02-19-2024 End: 55-30-4282pfqqjutcpoIZPJXHWW A BROWNNot AvailableStart: 10-11-7366Iqtmsn Isidra Vanesa [facility] Internal Medicine - Family MedicineComment on above:Chronic bronchitis with emphysema; Arthritis, multiple joint involvement; Anxiety and depression; Fibromyalgia; Acquired hypothyroidism; Benign essential HTN; Primary insomnia; History of kidney stonesStart: 66-14-5346FdcfeiWvfxt Vanesa [facility] Internal Medicine - Family MedicineComment on above:Chronic bronchitis with emphysema; Arthritis, multiple joint involvement; Anxiety and depression; Fibromyalgia; Acquired hypothyroidism; Benign essential HTN; Primary insomniaStart: 12-11-2023 End: 22-19-2314jfrfxcaojiRBRRWFQ [facility] Hospitaltart: 12-11-2023 End: 83-28-4577Vxxxby outpatient visit 25 minutesJairo Daley APRN-INTERNET SALESPERSON Work Phone: [facility] Medicine - Family MedicineComment on above:Acquired hypothyroidism (Primary Dx); Panlobular emphysema ([facility]); Obesity, morbid (CMS-HCC); Need for hepatitis C screening test; Arthritis, multiple joint involvement; Anxiety and depression; Fibromyalgia; Benign essential HTNStart: 12-04-2023 End: 37-19-4423Sulebr outpatient new 30 minutesCristobal Owens DPM Work Phone: [facility] CI PODIATRYComment on above:DJD (degenerative joint disease), ankle and foot, right (Primary Dx); Other specified disorders of synovium, right ankle and foot; Onychomycosis; Toe pain, bilateralStart: 12-04-2023 End: 93-48-1722hkcbfmpksoUJEKLRKQ A BROWNNot AvailableStart: 53-86-2759Skunb abstractingCristobal Owens DPM Work Phone: [facility] CI PODIATRYStart: 21-88-3506Lvqmdqaqc encounter Hilario Hurst CMAProMedica Physicians Internal Medicine - Family [facility] Hospitaltart: 11-17-2023 End: 37-53-7651clofxdsppxRDMH [facility] Hospitaltart: 01-03-2023 End: 31-85-3891Tsjpxrm encounter Trish Britt CNP Work Phone: mthz EKGStart: 01-03-2023 End: 25-01-7976Hrafuhkahu hospital visit by Markos Britt CNP Work Phone: mthz EKGComment on above:Renal calculus; Pre-op testingStart: 12-26-2022 End: 66-45-0375Sytscaxaux hospital visit by physicianSamaritan [facility] Center Cat Scan RoomMTHZ LaboratoryComment on above:Renal calculus; Gross hematuriaStart: 12-12-2022 End: 90-71-5672Myzlhasxkq hospital visit by Markos Britt CNP Work Phone: mthz LaboratoryComment on above:Renal calculus; Gross hematuriaStart: 12-03-2022 End: 59-81-6275rdqxefnomeSSIE CURETONFacility:H6Macmd: 10-21-2022 End: 27-87-0955ppbcukufmrNJ EULALIO TIMMISFacility:O2Qxxde: 09-11-2022 End: 65-74-8034Abmhlvbwv department patient visitRANDAL Sahu SHOPEFacility:SIS Start: 08-13-2022 End: 94-60-8216ejwbroslikDA XAVIER HOLLINGSWORTHFacility:Z8Kfbri: 08-07-2022 End: 34-59-2826apjycfdgdrET YANELIS MATTHEWSERFacility:H9Msgmp: 07-03-2022 End: 06-94-8292qndzamvpmmBP YANELIS Zaldivar ZIEBERFacility:G6Kbqkf: 06-26-2022 End: 24-35-8972olrhmiuzntCK EHAB ELTAHAWYFacility:K8Aycbt: 06-19-2022 End: 15-71-8664rigzpvpczkVZDBXZF BARROWSFacility:N5Oollu: 05-28-2022 End: 16-16-6668abdqzngwoiJQ XAVIER HOLLINGSWORTHFacility:W5Nqdtd: 04-03-2022 End: 06-03-5090iccahocpixLD YANELIS ENGELFacility:F7Oyuso: 03-08-2022 End: 06-14-3332cxkvfqoiuqZX YANELIS ENGELFacility:H1 Procedures DateProcedureProcedure DetailPerforming ClinicianStart: 79-43-3662Gtxwi dip stick/tablet reagent auto microscopyJulimarion Ruelas MANAGER CHANGE - INTERNET SALESPERSON Work Phone: Start: 96-55-9038Cmtst depression screening assessment Jairo Daley MANAGER CHANGE-INTERNET SALESPERSON Work Phone: Start: 73-19-3271Zwyxs depression screening assessment Jairo Daley MANAGER CHANGE-INTERNET SALESPERSON Work Phone: Start: 29-05-5524Nieazbmnc colonoscopyNP-C Jairo Daley Work Phone: Start: 90-25-9057Dzifv of urea nitrogen quantitative Adele Black [facility] Work Phone: start: 90-77-8259Fhwxw depression screening assessment Jairo Daley APRNLAHEY H[facility] & MED[facility] Work Phone: Start: 86-83-6571Pxwra depression screening assessment Jairo Daley [facility] Work Phone: Start: 58-60-3074Orgzp depression screening assessment Hialrio Hurst CMAStart: 94-98-5961Bpb routine ecg w/least 12 lds w/i&rBethany W Wayne [facility] Work Phone: Start: 93-47-4603Lirgv metabolic panel calcium total Adele Black [facility] Work Phone: Start: 62-88-3388Mn abdomen & pelvis w/o contrst 1/> body reThomshaquille Dominguez MD Work Phone: Start: 61-81-3875Scntz of urea nitrogen quantitative Jason Dominguez MD Work Phone: Start: 11-12-8185Mkvml dip stick/tablet reagent auto microscopyThomas Alberto ISRAEL Work Phone: Start: 17-48-2547XkzzwlkbwzgHiobrg Natali BONDING MOLDER Plan of Treatment DateCare ActivityDetailAuthorStart: 16-57-7216XYdO/Tdap/Td vaccine (2 - Td or Tdap)DTaP/Tdap/Td vaccine (2 - Td or Tdap)[facility] SystemStart: 23-51-2028Uctaqnoyudc Syncytial Virus (RSV) or age 60 yrs+ (1 - 1-dose 75+ series)Respiratory Syncytial Virus (RSV) or age 60 yrs+ (1 - 1-dose 75+ series)[facility] SystemStart: 40-58-1564Otuhw BMI ScreeningAdult BMI ScreeningProUniversity [facility] SystemStart: 18-19-5813Vtytuuhovm Screening Depression ScreeningProUniversity Hospitals [facility] SystemStart: 34-73-1393Fqlf Risk Screening Fall Risk ScreeningProMedica Health SystemStart: 79-96-6850Vwsnbul Screening Tobacco ScreeningSouthview Medical Center Health SystemStart: 37-71-8104Nmfxo BMI Follow Up PlanAdult BMI Follow Up PlanLouis Stokes [facility] SystemStart: 91-15-8650Qnvrj BMI ScreeningAdult BMI ScreeningLouis Stokes [facility] SystemStart: 99-63-1116Ucrkroi ScreeningTobacco ScreeningLouis Stokes [facility] SystemStart: 19-09-2836Enlin BMI Follow Up PlanAdult BMI Follow Up PlanLouis Stokes [facility] SystemStart: 10-06-2025 Adult BMI ScreeningAdult BMI ScreeningLouis Stokes [facility] SystemStart: 10-06-2025 Tobacco ScreeningTobacco ScreeningLouis Stokes [facility] SystemStart: 47-27-3772Bnfco BMI ScreeningAdult BMI ScreeningLouis Stokes [facility] SystemStart: 09-13-2025 Depression ScreeningDepression ScreeningLouis [facility] SystemStart: 09-13-2025 Fall Risk ScreeningFall Risk ScreeningLouis Stokes [facility] SystemStart: 09-13-2025 Medicare Annual Wellness VisitMedicare Annual Wellness VisitLouis Stokes [facility] Center SystemStart: 82-35-1634Rqtzdye ScreeningTobacco ScreeningLouis Stokes [facility] System Start: 09-07-2025 End: 92-76-1982Gqbozvs encounter whkankobn86/19/2025 1:15 PM EST Office Visit [facility] UROLOGY Part of [address] [place] [address] Filiberto Sow, PANegar [address] [facility] [address] [place] [address] 6-8w med check/ [facility]vrMER[facility] Part [facility] HospitalComment on above:6-8w med check/ pvrStart: 21-69-5470Rrewh BMI Follow Up PlanAdult BMI Follow Up Plan [facility] SystemStart: 12-13-0575Ykjrb BMI ScreeningAdult BMI Screening [facility] SystemStart: 61-32-1329Xsyfeyp ScreeningTobacco Screening [facility] SystemStart: 07-18-2025 End: 88-04-2660Yzwteab encounter locsbiyph75/29/2025 10:00 AM EDT Office Visit [facility] UROLOGY Part [address] [place] [address] Filiberto Sow, FERNANDO [address] [place] [address] [address] [place] [address] 1 year F/U KUB. [facility] UROLOGY Part [facility] HospitalComment on above:1 year F/U KUB.Start: 73-27-6689LeyakwxfpMercy Health Springfield Regional Medical Centertart: 10-77-9425IFZME-19 Vaccine ( season)COVID-19 Vaccine ( season)[facility] CenterStart: 06-09-2025 End: 25-37-8941Nxzhxhz encounter nffkmmjce21/21/2025 9:00 AM EDT Office Visit [facility] UROLOGY Part of [address] [place] [address] Adele Black, MANAGER CHANGE - INTERNET SALESPERSON [address] [place] [address] [address] [place] [address] [address] P[address] [facility] Medical CenterComment on above: 1yr PVR KUBStart: 09-28-3253Dcdlwnzrc vaccinationFlu vaccine (#1)[facility] CenterStart: 05-18-2025 End: 13-36-3245Eomvzrn encounter unothgsqr52/30/2025 1:00 PM EDT Office Visit [facility] [address] [place] [address] Jairo Daley, MANAGER CHANGE-INTERNET SALESPERSON [address] [place] [address] [facility] - Family MedicineStart: 81-61-2283Kbqzv BMI Follow Up PlanAdult BMI Follow Up PlanProMedica Health SystemStart: 86-36-5725Brfux BMI ScreeningAdult BMI ScreeningProUniversity Hospitals [facility] SystemStart: 29-52-9892Qrlprfwjoh ScreeningDepression ScreeningProUniversity Hospitals [facility] SystemStart: 66-10-0110Ibvs Risk ScreeningFall Risk ScreeningLouis Stokes [facility] SystemStart: 37-44-5134Zjpmkub ScreeningTobacco ScreeningLouis Stokes [facility] SystemStart: 47-29-1867Nmthyipqttrx myocardial perfusion stress studyNM helen perf SPECT rest & strMercy Health Springfield Regional Medical Centertart: 82-99-1267XRVIP Heart perfusion at rest and W stress and W radionuclide [facility] Northtart: 12-16-2024 End: 41-65-6494Vgunkkp encounter amniiuzvr66/27/2025 2:00 PM EST Office Visit [facility] [address] [place] [address] Jairo Daley, MANAGER CHANGE-INTERNET SALESPERSON [address] [place] [address] [facility] - Family MedicineStart: 44-89-0361MjxsjhstuMercy Health Springfield Regional Medical Centertart: 62-42-8828Bqttm BMI Follow Up PlanAdult BMI Follow Up PlanLouis Stokes [facility] Center SystemStart: 67-16-1766Pjxgi BMI ScreeningAdult BMI ScreeningLouis Stokes [facility] SystemStart: 01-08-1864Bdyqrdjhnx ScreeningDepression ScreeningLouis Stokes [facility] SystemStart: 26-28-0512Ljrd Risk ScreeningFall Risk ScreeningLouis Stokes [facility] SystemStart: 70-74-9287Yrzfwpm ScreeningTobacco ScreeningLouis Stokes [facility] SystemStart: 46-44-8606PSRDU-19 Vaccine ()COVID-19 Vaccine ()[facility] Hospitaltart: 11-03-2024 End: 24-77-3352Irmamiv encounter gjwolwjcz21/15/2025 1:00 PM EST Office Visit [facility] [address] [place] [address] Jairo Daley, MANAGER CHANGE-INTERNET SALESPERSON [address] [place] [address] [facility] - [facility] MedicineStart: 09-23-2024 End: 60-32-3045Jlejqff encounter cvmmhpzja68/05/2024 11:50 AM EST Procedure Visit [facility] [address] [facility] 120 [place] [address] Cristobal Owens, VIKI [address] [facility] 5 [place] [address] [facility] CI PODIATRYStart: 09-13-2024 End: 68-07-0192Iopdtix encounter zrbvimmej93/25/2024 2:40 PM EST Office Visit [facility] [address] [place] [address] Jairo Daley, MANAGER CHANGE-INTERNET SALESPERSON [address] [place] [address] [facility] MedicineStart: 57-86-3008Wvnmw BMI Follow Up PlanAdult BMI Follow Up PlanProUniversity Hospitals [facility] SystemStart: 72-57-8452Alxcq BMI ScreeningAdult BMI ScreeningProUniversity Hospitals [facility] SystemStart: 39-06-8227Szmkrrantv ScreeningDepression ScreeningProNewark Hospitalca Health SystemStart: 50-71-6929Lsck Risk ScreeningFall Risk ScreeningProNewark Hospitalca Health SystemStart: 11-01-2024Medicare Annual Wellness VisitMedicare Annual Wellness VisitProNewark Hospitalca [facility] SystemStart: 58-56-1577Hckrjmp ScreeningTobacco ScreeningProNewark Hospitalca [facility] SystemStart: 39-60-2757Riokzknym for malignant neoplasm of breastBreast cancer screenBON WHITE HOSPITALStart: 08-10-2024 End: 50-64-1385Jpdilej encounter /22/2024 8:00 AM EDT Office Visit [facility] [address] [place] [address] Jairo Daley, MANAGER CHANGE-INTERNET SALESPERSON [address] [place] [address] [facility] - Family [facility] Hospitaltart: 71-53-2241YhzizwfzbMercy Health Springfield Regional Medical Centertart: 07-16-2024 End: 96-31-9455Fyisfok encounter xacfngsei58/27/2024 8:45 AM EDT Office Visit [facility]OLOGY Part of [facility] [address] [facility] [address] [place] [address] Jason Dominguez MD [address] [facility], [address] [place] [address] Follow up [facility] UR[facility] Part [facility] HospitalComment on above:Follow up CTStart: 07-08-2024 End: 94-61-2902Bplpjcg encounter lokqxwwwr13/19/2024 11:50 AM EDT Procedure Visit [facility] [address] [facility] [address] [place] [address] Cristobal Owens, DPBrock [address] [facility] 5 [place] [address] Peroneal tendon tear, right, initial encounter (Primary Dx); Onychomycosis;Toe pain, bilateralNOMS CI PODIATRYComment on above:Peroneal tendon tear, right, initial encounter (Primary Dx); Onychomycosis; Toe pain, bilateralStart: 33-67-0204Bvbcqy Wellness Visit (Medicare)Annual Wellness Visit (Medicare)[facility]ITALStart: 76-13-4260YIZWI-19 Vaccine ( season)COVID-19 Vaccine ( season)[facility]ITALStart: 63-89-3338Foajuwqvf vaccinationParkland Health CenterStart: 30-64-0732Bwzhrczkl vaccinationFlu vaccine (#1)GUALBERTO GUNNAR [facility]ITALStart: 04-12-2024 End: 82-14-2427Dnzomjb encounter uvhxkkhjr76/24/2024 9:40 AM EDT Office Visit [facility] [address] [place] [address] Jairo Daley, MANAGER CHANGE-INTERNET SALESPERSON [address] [place] [address] [facility] Atlantatart: 02-12-2024 End: 10-36-8509Uhnqkun encounter ducjjcmos88/25/2024 4:40 PM EDT Procedure Visit [facility] [address] [address] [place] [address] Cristobal Owens DPM [address] [address] [facility] CI PODIATRYStart: 98-76-8118Mpscrlp Counseling Tobacco CounselingScotland Memorial Hospitaltart: 12-18-2023 End: 35-81-2790Funopfqe Oozuipa6712/18/2023 8:50 AM EST Clinical Support [facility] [address] [address] [place] [address] Cristobal Owens DPM [address] [address] [facility] CI PODIATRYStart: 12-11-2023 End: 11-34-1762Bgsztfz encounter /22/2024 9:45 AM EST Office Visit [facility] [address] [place] [address] Jairo Daley, MANAGER CHANGE-INTERNET SALESPERSON [address] [place] [address] [facility] - Family MedicineStart: 12-04-2023 End: 37-66-8606Xbbkqih encounter utcigbiss37/15/2024 4:00 PM EST Office Visit [facility] [address] [facility] [facility] [address] [place] [id number] Cristobal Owens DPM [address] [facility] [address] [place] [address] NOMS CI PODIATRYStart: 56-52-8477Dmfgmficr for malignant neoplasm of breastMammogramKANE COUNTY HUMAN RESOURCE SSD HealthcareStart: 83-49-3661LMUBO-19 Vaccine ( season)COVID-19 Vaccine ( season)[facility] SystemStart: 01-21-2023 End: 07-84-1083Uutnlzvaf to same day surgery xtffrz1501/21/2023 Surgery IP Unit Jason Dominguez MD [address] [place] [address], [address] [place] [address] ESWL EXTRACORPOREAL SHOCK WAVE LITHOTRIPSYMTHZ ORComment on above:ESWL EXTRACORPOREAL SHOCK WAVE LITHOTRIPSY Start: 01-21-2023 End: 25-81-7726Uhxskapzjzh xtrcorp shock waveESWL EXTRACORPOREAL SHOCK WAVE LITHOTRIPSY Renal calculus 01/21/2023 7:30 AM [facility] Start: 44-89-3847Beyxmryhtd hospital visit by hblmbliey84/04/2023 Hospital Encounter IP Unit Jason Dominguez MD [address] [place] [address], [address] [place] [address] MTHZ ORStart: 12-31-2022 End: 47-91-8921Asilgqg encounter agotavjid61/14/[address] [facility] [address] ScanStart: 29-80-6318Oamabw Wellness Visit (AWV)Annual Wellness Visit (AWV)[facility]Start: 65-66-4273Hjiahedshff Syncytial Virus (RSV) or age 60 yrs+ (1 - 1-dose 60+ series)Respiratory Syncytial Virus (RSV) or age 60 yrs+ (1 - 1-dose 60+ series)[facility]: 22-09-6495Dybflmyyt for osteoporosisDEXA (modify frequency per FRAX score)[facility]: 89-65-4186Qmifugugvjihix of varicella zoster vaccineZoster (Shingles) Vaccine (1 of 2)[facility]: 29-15-8946Pbqxrvvtk for malignant neoplasm of breastBreast cancer screenSentara CarePlex Hospitalart: 44-62-8285Rkwywhrdq for malignant neoplasm of lung Lung Cancer Screening &/or CounselingSentara [facility] Centerart: 2006 Shingles vaccine (1 of 2)Shingles vaccine (1 of 2)[facility]: 01-45-6751Derzjgbuk for malignant neoplasm of colonRIVERSIDE HEALTH SYSTEM Start: 00-14-3458Kjzve panelLipidsSentara CarePlex Hospitalart: 1991 Diabetes screenDiabetes [facility] Hospitalart: 61-42-7762JGaO,Tdap and Td Vaccines (1 - Tdap)DTaP,Tdap and Td Vaccines (1 - Tdap)[facility]tart: 09-86-0855VMnI/Tdap/Td vaccine (1 - Tdap)DTaP/Tdap/Td vaccine (1 - Tdap)[facility]Start: 09-36-0827Kuuqdtmzj C screeningHepatitis C [facility] Hospitalart: 56-37-1560Jkfhyemcxq ScreenDepression [facility] Hospitalart: 48-51-9801ZUZLA-19 Vaccine (#1)COVID-19 Vaccine (#1)[facility]: 88-81-6756Qkhgworpt for malignant neoplasm of colonNOMS HealthcareStart: 96-25-1253Ifafwan CounselingTobacco CounselingProtestant Deaconess Hospital End: 80-18-0103KLP W Auto Differential panel - BloodCBC auto differential Lab Routine Acquired hypothyroidism 1 Occurrences starting 08/10/2024 until [facility] HospitalComment on above:1 Occurrences starting 08/10/2024 until 08/10/2025 End: 51-30-7839Dqdxqemuhmpia metabolic 2000 panel - Serum or PlasmaComprehensive metabolic panel Lab Routine Acquired hypothyroidism 1 Occurrences starting 08/10/2024until 08/10/2025[facility] Work Phone: Comment on above:1 Occurrences starting 08/10/2024 until 08/10/2025 End: 71-04-0181Anbrksf, UrineBON LiveRSVP Work Phone: Comment on above:1 Occurrences starting 12/12/2022 until 12/12/2022 End: 10-30-8472Qceqcjk, UrineBon Electron DatabaseComment on above:1 Occurrences starting 07/18/2025 until 07/18/2025 End: 03-72-6918Wtkdlovpgp A1c/Hemoglobin.total in BloodHemoglobin A1c Lab Routine Screening for diabetes mellitus (DM) 1 Occurrences starting 08/10/2024 until 08/10/2025ProExperenti SystemComment on above:1 Occurrences starting 08/10/2024 until 08/10/2025 End: 13-85-2746Ophqb 1996 panel - Serum or PlasmaLipid profile Lab Routine Mixed hyperlipidemia 1 Occurrences starting 08/10/2024 until 08/10/2025ProExperenti SystemComment on above:1 Occurrences starting 08/10/2024 until 08/10/2025 Patient EducationHemorrhoids (DC) Diverticulosis (DC) Colon Polypectomy (DC) Know your [facility] Work Phone: End: 57-25-0354Hnqbpvqxqpy [Units/volume] in Serum or PlasmaTSH Lab Routine Acquired hypothyroidism 1 Occurrences starting 08/10/2024 until 08/10/2025 [facility] Lender Sentinel SystemComment on above:1 Occurrences starting 08/10/2024 until 08/10/2025US Lower extremity - rightUS foot right Imaging Routine Other specified disorders of synovium, right ankle and foot Ordered: 12/04/2023[facility] Work Phone: Comment on above:Ordered: 12/04/2023 End: 70-20-3208XB Abdomen Single viewBon Secours Mercy HealthComment on above:1 Occurrences starting 07/12/2025 until 07/12/2025 Immunizations Immunization DateImmunizationNotesCare KsxlppvnDmbkdkmg18-91-0847Bqdmawzn trivalent influenza vaccine, adjuvanted, preservative freeValerimarion Edi SILVER-INTERNET SALESPERSON Work Phone: [facility] HospitalTrkbnz91-23-4218Bwscavdnbxhw, In Clinic,; Translations: [Drug or medicament (substance)]Jairo Edi [facility] Work Phone: [facility]aconess HospitalBgcijf31-13-0486JWJVZ-37, SPIKEVAX (Moderna), (age 12y+), IM, 50mcg/0.5mLMth 2BBon [facility]ours De[facility]10-10-2024 influenza, high dose seasonal, preservative-freeMth 2BBon [facility]ours [facility] 87-71-4861Bkgfxvgyd Vaccine, Quadrivalent, AdjuvantedAdysan Sleek [facility]11-01-2023influenza virus vaccine, unspecified formulationValerie Edi [facility] Work Phone: [facility] HospitalVbyjpc96-63-9720Gsvxqkbreint Conjugate 20-valentAdysan Sleek [facility] HospitalBztglj86-04-0742yyyqhmhwihvs conjugate vaccine, 7 valentAdysan Sleek [facility]10-11-2022 Influenza Vaccine, Quadrivalent, AdjuvantedAdysan Sleek [facility] Payers DatePayer CategoryPayerPolicy [id number] Health [id number] [id number] 2024Medicare HMO [id number]-fuo [id number] [id number] 2024Medicare [id number] 2024Medicaid11111111 [id number] [id number] 2023Medicaid [id number] 2022Medicare [id number] [id number] 1.2.840.796842.1.13.239.2.7.3.880[id number] [id number] [id number] [id number] [id number] 2.840.1.283961.3.579.2.59785-32-4271Lmahlnz1372046 2.840.1.941195.3.579.2.62121-39-7189Hcmakgw9394657 2.840.1.615675.3.579.2.76551-41-3535Lzetmlv7465938 2.840.1.567869.3.579.2.61524-85-4349Auhcubr2956382 2.840.1.852265.3.579.2.34307-28-9813Xajhmfk0645973 2..840.1.973912.3.579.2.45826-11-4077Iwspbli0131072 2.840.1.485165.3.579.2.15676-57-2187Nzlxbox2660509 2..840.1.276653.3.579.2.70683-59-1475Lghggfy6763243 2.16840.1.178603.3.579.2.31297-19-7246Rvzlkjf6392719 2.16.840.1.530202.3.579.2.20674-88-8878Bzayyef79705565 2.16.840.1.297392.3.579.2.424118-01-5543Djjtxzi8702911 2.16840.1.818194.3.579.2.787805-55-9563Gexzqrh3826229 2.16.840.1.590086.3.579.2.860395-57-2981Agcgiao3675447 2.840.1.426457.3.579.2.091677-67-1446Lfgpfzy0892077 2.840.1.023421.3.579.2.564223-33-7563Uavwcao6968166 2.840.1.501876.3.579.2.482872-96-0137Uendjkg409176079 2.840.1.966868.3.579.2.720759-45-8906Plnvxkz534414147 2.840.1.579546.3.579.2.485337-70-7107Xkafsga15147305 2.840.1.669000.3.579.2.239840-40-6380Vdgutdb22758268 2.840.1.598245.3.579.2.084826-52-7096Xbyomtn41347053 2.840.1.345848.3.579.2.026344-33-9049Bgtssrb64887575 2.16.840.1.621683.3.579.2.605946-02-1149Nzpstrl843596486 2.16840.1.298300.3.579.2.66874-92-4577Bdegoky618532798 2.16.840.1.832722.3.579.2.15017-13-1090Vdjixao385908259 2.16.840.1.695351.3.579.2.16345-72-7930Uzfvxnz971933139 2.16.840.1.790659.3.579.2.50879-13-8448Ikyzyva712335412 2.16.840.1.201695.3.579.2.37889-05-8680Zboldfo304433294 2..840.1.709135.3.579.2.99810-11-5268Zaqqmqm143694784 2.16.840.1.378549.3.579.2.43829-02-7324Chzprjv709189857 2..840.1.119322.3.579.2.93184-49-2075Wxgaxfy240438745 2..840.1.932640.3.579.2.77437-27-4630Dzjektp525153525 2..840.1.967779.3.579.2.61965-68-9356Zcdqfub895169679 2..840.1.069770.3.579.2.36867-39-6399Xrfvxhg407029037 2.16.840.1.809286.3.579.2.53601-96-4717Yktptvr072252124 2.16.840.1.284980.3.579.2.33618-72-2259Rhddksx472267542 2.16.840.1.188350.3.579.2.38277-25-8341Fgcnfmy68678216 2.16.840.1.866239.3.579.2.19509-56-7402Hivvoiq57984247 2.16.840.1.243148.3.579.2.96020-04-0172Aoqbsnf71512899 2.16.840.1.091783.3.579.2.96328-05-1682Ajeccfu10653474 2.16.840.1.112087.3.579.2.173Private Health Yjlruvktg494741723 f0df8744-m357-2u3g-r30n-4ah7iq598075YqtkkzkMHBL/HFA/FAP Qjmdne435765360 8759dhhf-0fu3-18633ko9-2952-md98-375i38855419Zqrqtjg61679068 2.16.840.1.553711.3.579.2.383Xyzcafi75424024 2.16.840.1.003747.3.579.2.531 Ynarnev24074311 2.16.840.1.561577.3.579.2.367Fnjpdwr91759952 2.16.840.1.418357.3.579.2.531 Social History DateTypeDetailFacilityStart: [birth year]20-1964 End: 78-08-0227Kcucgzi smoking status NHISSmokes tobacco dailySUMMIT [facility]ALTHC[facility] [employer] Phone: start: 62-97-2314Hkhfxgj of tobacco useCigarette SmokerSUMMIT HEALTHCARE REGIONAL MEDICAL [facility]ENTER [employer] Phone: start: 12-12-2022 End: 94-05-8940Ipzxcaneqo smoked current (pack per day) - Reported0.5NOMS HealthcareStart: 12-12-2022 End: 46-47-7930Hjoqzgr use and exposureSmokeless tobacco non-userSUMMIT HEALTHCARE REGIONAL MEDICAL CENTER [employer] Phone: start: 12-12-2022 End: 16-21-0305Mefhpix intakeCurrent drinker of alcohol (finding)[facility] [employer] Phone: start: 07-46-3093Zbbepez CommentSmokes 6-8 cigs/dayBON [employer] Phone: start: 34-92-8056Pvfykbq CommentBeer 2-3 every 2 weeks [facility] [employer] Phone: start: 68-58-7380Qqj Assigned At BirthNot on fileSUMMIT HEALTHCARE REGIONAL MEDICAL CENTER [employer] Phone: start: 74-67-8716Miaxfst smoking status NHISNever smoked tobaccoNOLA HealthcareStart: 12-04-2023 End: 27-81-3297Wufudt identityNot on [facility] HealthcareHistory of tobacco use Passive smokerNOLA HealthcareStart: 12-04-2023 End: 98-26-1033Uzcurrr intakeEx-drinker (finding)[facility] HealthcareHow often to you have a drink containing alcohol?2-4 times a monthNOLA HealthcareAverage Number of DrinksNot on [facility] HealthcareStart: 03-28-1720Pfskgfi Commentcoffee daily [facility] HealthcareStart: 07-21-2024 End: 04-36-4177Euiwxih smoking status NHISSmoker (finding)[facility] Centertart: 53-80-8333Xzd Assigned At BirthFeChildren's Hospital for Rehabilitationtart: 54-15-7313Ahabjzl Commenton weekends, not often.[employer] SystemStart: 12-01-2012 End: 30-95-2840GzeDvsbej (finding)[facility] Goals DatePatient GoalDesired Activity/State Clinical Notes 03-08-2022 to 07-05-2025 Note Date & NrfyBalxEbtpsbhq92-32-9318 Evaluation note* Diagnosis Onset Date Resolution Status Admit Date Essential (primary) hypertension acuteSeptember 2024 9:12amTobacco use disorder, continuousacuteSeptember 2024 9:12amLeft ventricular hypertrophy due to hypertensive disease noneactiveSeptember 2024 9:12amAtypical chest painnoneactiveSeptember 2024 9:12am [facility] Work Phone: 1(889) 638-419506-30-2025 NoteThis is a Telephone Appointment *This visit was conducted by Telephone with real time communicationand interaction. The patient provided written consent for treatment. The patient understands their rights, the HIPAA risks and that they will be charged accordingly for the services rendered. This visit was held via telephone within the state of [place] while they were at: Her home. This [...] Tartrate 25 mg o (more content not included)...[facility]04-25-2025 NoteAdmission Information Admitted on February 10, 2025 [...] to the plantar feet as tested with Cambria Mary Kay monofilament. Gross motor intact bilateral [...] treat. Reviewed notes. Discu (more content not included)...[facility]04-23-2025 NoteChief Complaint RIGHT ANKLE PAIN & INSTABLITY [...] PROCEDURE: December 13, 2024 LOCATION OF PROCEDURE: [facility] SURGEON: Brant Burden DPM INFORMED CONSENT: Obtained by and on file at [facility] Patient is a pleasant 69-year-old female [...] inh, Inhale, qAM V (more content not included)...[facility]03-07-2025 Note Chief Complaint Referral from Dr. Valentin [...] Hospital. Patient relates that they have tried ifhw-hgl-qcpdnsu pain relievers, padding, and modification of shoe gear as well as modification of activity levels to no avail. She states she had an MRI performed. States that the right ankle is painful and feels unstable at times. She has hardware on the outside of her right ankle. She states that this is also painful. She relates she sees a metal furniture repairer. She relates she has a history of [...] bilateral. Protective sensation intact as measured with Cambria Mary Kay Monofilament Gross motor intact bilateral. [...] Discussed conservative versus surgic (more content not included)...[facility]02-27-2025 History of Present illness Narrative* Jairo Daley APRN-TESS - 12/16/2024 2:00 PM EST Images from the original note were not included. [address] [place] [address] SUBJECTIVE: Patient ID: Robyn Thorpe is a [...] Diagnosis Date Allergic Asthma Back pain Cancer ([facility]) Chronic kidney disease Disease of thyroid gland [...] by mouth nightly. Chronic bronchitis with emphysema ([facility]) - TRELEGY ELLIPTA 100-62.5-25 mcg blister with [...] CARLITOS Haas 12/16/24 1422 documented in this encounterProtestant Deaconess Hospital02-26-2025 Evaluation note* Diagnosis Onset Date Resolution Status Admit Date Essential (primary) hypertension acuteFebruary 2024 2:55pmTobacco use disorder, continuousacuteFebruary 2024 2:55pmLeft ventricular hypertrophy due to hypertensive disease noneactiveFebruary 2024 2:55pmAtypical chest painnoneactiveFebruary 2024 2:55pm [facility] Work Phone: 1(341) 395-119501-15-2025 History of Present illness Narrative* CARLITOS Haas - 11/03/2024 1:00 PM EST Images from the original note were not included. [address] [facility] [address] SUBJECTIVE: Patient ID: Robyn Thorpe [...] Diagnosis Date Allergic Asthma Back pain Cancer ([facility]) Chronic kidney disease Disease of [...] CARLITOS Haas 11/03/24 1326 documented in this encounterProtestant Deaconess Hospital01-15-2025 Instructions* Patient Instructions* CARLITOS Haas - 11/03/2024 1:00 PM EST Are You Ready To Kick The Habit? Free Tobacco Cessation Resources [facility] Tobacco Treatment Center Services [facility] Tobacco Treatment Centers provide all employees with free tobacco cessation services that include: Counseling to understand nicotine addiction Education about medications that can help you successfully quit Assistance with developing a plan to quit Call to set up an individual appointment or find out when group classes will be held: [facility]: [phone] [facility]: [phone] [facility]: [phone] [facility]: [phone] Quit Smoking Action Plan and Resources [facility] offers an eight-week, online smoking cessation plan to all [facility] employees, regardless of whether [place] is your medical insurance provider. Go to [email or web address] and click the Health Risk Assessment and Resources link to get started. In the Mobilitus menu, click Action Plans instead of Health Risk Assessment to access the Quit Smoking Action Plan. Additional smoking cessation resources are also available to all [facility] employees on the Tsoxz0Akcyaa web page at www.Dealer Inspire/quitsmoking. [place] Tobacco Cessation Program If [place] is your medical insurance provider, there are more free resources available to you, including: No copays or deductibles on local tobacco cessation counseling services to help you quit Prescription assistance for tobacco cessation medications to help you quit For details about the tobacco cessation program available to [place] members, go to www.Dealer Inspire (Search: Tobacco Cessation Program). [place] Tobacco Quit Line 8-313-TMXA-NOW ( ) is a toll-free, telephonic service that helps [place] residents quit smoking and using tobacco. It is staffed by experts who tailor a quit plan for you and provide you with advice. [place] Tobacco Quit Line 0-735-JOHT-NOW ( ) is a toll-free, telephonic service that helps [place] residents quit smoking and using tobacco. It is staffed by experts who tailor a quit plan for you and provide you with advice. Two weeks of nicotine replacement therapy may be provided at no charge, if needed. Additional Resources These national organizations also offer free information and resources to help you quit tobacco: [place] Cancer Society--www.cancer.org/healthy/stayawayfromtobacco [place] Heart Association--www.heart.org (Search: Quit Smoking) Centers for Disease Control and Prevention--www.cdc.gov/tobacco [place] Lung Association--www.lungusa.org * Attachments The following attachments cannot be sent through Care Everywhere. * Diet and health ([place]enezuelan) documented in this encounterNorthwestern Medical CenterFlipter01-02-2025 Miscellaneous Notes* Telephone Encounter - Isidra Alexis [...] called requesting a referral to a new metal furniture repairer in [place] Their name is [facility] Phone number is [phone] Fax is [phone] documented in this encounterOhio Valley HospitalPhatNoise Mrbrjy02-30-5689 Telephone encounter Note* Telephone Encounter - Isidra Alexis CMA - 10/21/2024 12:10 PM EST Pt called stated that her BP has been 200s over 100s and needs her meds changed its been like this for a week in a half [facility]01-02-2025 Telephone encounter Note* Telephone Encounter - CARLITOS Haas - 10/21/2024 12:10 PM EST She will need an appointment for further evaluation [facility]01-02-2025 Telephone encounter Note* Telephone Encounter - Isidra Alexis CMA - 10/21/2024 12:10 PM EST Can someone finagale this pls [facility]01-02-2025 Telephone encounter Note* Telephone Encounter - Nat Vivar - 10/21/2024 12:10 PM EST Whenever first available is, can be 20 min [facility]01-02-2025 Telephone encounter Note* Telephone Encounter - Isidra Alexis CMA - 10/21/2024 12:10 PM EST I can't find anything till the , I would think she needs to come in sooner if possible you guys are better at working the schedule [facility]01-02-2025 Telephone encounter Note* Telephone Encounter - Nat Vivar - 10/21/2024 12:10 PM EST If that's the first 20 minute we have then that's all. I can't move appointments to accommodate [facility]01-02-2025 Telephone encounter Note* Telephone Encounter - Isidra Alexis CMA - 10/21/2024 12:10 PM EST Pt is scheduled [facility]01-02-2025 Telephone encounter Note* Telephone Encounter - Isidra Alexis CMA - 10/21/2024 12:10 PM EST Pt called requesting a referral to a new metal furniture repairer in [place] Their name is [facility] Phone number is [phone] Fax is [phone] [facility]11-25-2024 History of Present illness Narrative* Jairo Daley, [...] CT low dose screening is done through port purser yearly ([facility]) States she has been experiencing wheezing [...] Diagnosis Date Allergic Asthma Back pain Cancer ([facility]) Chronic kidney disease Disease of [...] Do you have a durable power of criminal attorney?: (!) No Patient educated today about [...] Medicare annual wellness visit, subsequent COPD exacerbation ([facility]) - azithromycin (ZITHROMAX) 250 mg tablet; Take [...] CARLITOS Haas 09/13/24 1510 documented in this encounterOhio Valley HospitalPhatNoise Ntdsjd15-92-8725 History of Present illness Narrative* CARLITOS Haas - 08/10/2024 8:00 AM EDT Images from the original note were not included. [address] [place] [address] SUBJECTIVE: Patient ID: Robyn Thorpe is a [...] Diagnosis Date Allergic Asthma Back pain Cancer ([facility]) Chronic kidney disease Disease of [...] by mouth nightly. Chronic bronchitis with emphysema ([facility]) - TRELEGY ELLIPTA 100-62.5-25 mcg [...] CARLITOS Haas 08/10/24 0910 documented in this encounterProtestant Deaconess Hospital10-22-2024 Instructions* Patient Instructions* CARLITOS Haas - 08/10/2024 8:00 AM EDT Are You Ready To Kick The Habit? Free Tobacco Cessation Resources [facility] Tobacco Treatment Center Services [facility] Tobacco Treatment [facility] provide all employees with free tobacco cessation services that include: Counseling to understand nicotine addiction Education about medications that can help you successfully quit Assistance with developing a plan to quit Call to set up an individual appointment or find out when group classes will be held: [facility]: [phone] [facility]: [phone] [facility]: [phone] [facility]: [phone] Quit Smoking Action Plan and Resources [facility] offers an eight-week, online smoking cessation plan to all [facility] employees, regardless of whether [place] is your medical insurance provider. Go to www.m-Care TechnologymediCurbStand.[email or web address]/employeewellness and click the Health Risk Assessment and Resources link to get started. In the Mobnh8Sniqzt menu, click Action Plans instead of Health Risk Assessment to access the Quit Smoking Action Plan. Additional smoking cessation resources are also available to all [facility] employees on the Cxdsv2Msmukx web page at www.EyeSee360.com/quitsmoking. [place] Tobacco Cessation Program If [place] is your medical insurance provider, there are more free resources available to you, including: No copays or deductibles on local tobacco cessation counseling services to help you quit Prescription assistance for tobacco cessation medications to help you quit For details about the tobacco cessation program available to [place] members, go to www.elmerDealPerk.Evento (Search: Tobacco Cessation Program). [place] Tobacco Quit Line 5-176-LSDV-NOW ( ) is a toll-free, telephonic service that helps [place] residents quit smoking and using tobacco. It is staffed by experts who tailor a quit plan for you and provide you with advice. [place] Tobacco Quit Line 0-637-AKMT-NOW ( ) is a toll-free, telephonic service that helps [place] residents quit smoking and using tobacco. It is staffed by experts who tailor a quit plan for you and provide you with advice. Two weeks of nicotine replacement therapy may be provided at no charge, if needed. Additional Resources These national organizations also offer free information and resources to help you quit tobacco: [place] Cancer Society--www.cancer.org/healthy/stayawayfromtobacco [place] Heart Association--www.heart.org (Search: Quit Smoking) Centers for Disease Control and Prevention--www.cdc.gov/tobacco [place] Lung Association--www.lungusa.org * Attachments The following attachments cannot be sent through Care Everywhere. * Hypothyroidism (underactive thyroid) ([place]enezuel[place]) documented in this encounterOhio Valley HospitalPhatNoise Chociq27-84-1351 Procedure note [facility] [facility]09-19-2024 History of Present illness Narrative * [...] History: Diagnosis Date Allergies Anxiety Arthritis Asthma ([facility]) Cervical cancer ([facility]) COPD (chronic obstructive pulmonary disease) ([facility]) Depression ([facility]) History of medical problems knee scraping for knee replacement HTN (hypertension) ([facility]) Kidney disease Medications: Current Outpatient Medications: [...] Insecurity: No Food Insecurity (04/12/2024) Received from [facility] Hunger Screening Within the [...] Partner Violence: Unknown (12/11/2023) [facility] [place] Safety & Environment Fear of Current [...] nails 1 through 10 MRI right ankle [facility] demonstrates findings of slight thickening of the [...] Patient may continue with conservative treatments including vsdz-nqt-rmoyfoj anti- inflammatories and other treatments suggested today. Patient may want to be s cheduled for surgical intervention in the near future. Discussed right peroneal tendon repair and patient patient and may consider once all other medical issues are done with Cristobal Owens DPM documented in this encounterParkland Health [id number] Miscellaneous Notes* Telephone Encounter - Nat Vivar [...] where * Telephone Encounter - Jairo Daley APRN-INTERNET SALESPERSON - 05/13/2024 12:33 PM EDT Her fall was several weeks ago. Was hospitalized. I recommend ER or urgent care visit. * Telephone Encounter - Natbuffy Vivar - 05/13/2024 12:33 PM EDT Patient notified and is going to the urgent care [facility] Telephone encounter Note* Telephone Encounter - Natbuffy [...] to be seen but not sure where [facility]07-[facility] Telephone encounter Note* Telephone Encounter - CARLITOS Haas - 05/13/2024 12:33 PM EDT Her fall was several weeks ago. Was hospitalized. I recommend ER or urgent care visit. [facility]07-25-2024 Telephone encounter Note* Telephone Encounter - Nat Vivar - 05/13/2024 12:33 PM EDT Patient notified and is going to the urgent care [facility]06-24-[facility] History of Present illness Narrative* CARLITOS Haas - 04/12/2024 9:40 AM EDT Images from the original note were not included. [address] [place] [id number] SUBJECTIVE: Patient ID: Robyn Thorpe is a [...] Diagnosis Date Allergic Asthma Back pain Cancer ([facility]) Chronic kidney disease Disease of [...] by mouth nightly. Chronic bronchitis with emphysema ([facility]) - TRELEGY ELLIPTA 100-62.5-25 mcg [...] Referring and communicating with other health career specialist (not separately reported) Follow-up: 4 months Fasting labs. Hypothyroid, fibromyalgia CARLITOS Haas 04/12/24 1052 documented in this encounterPro[facility]03-28-2024 Miscellaneous Notes* Telephone Encounter - Isidra Alexis CMA - 01/15/2024 12:05 PM EDT They went to the wrong pharmacy documented in this encounterProtest[facility]03-28-2024 Telephone encounter Note* Telephone Encounter - Isidra Alexis CMA - 01/15/2024 12:05 PM EDT They went to the wrong pharmacy [facility]02-22-20[facility] History of Present illness Narrative* CARLITOS Haas - 12/11/2023 9:40 AM EST Images from the original note were not included. [address] [facility] [id number] SUBJECTIVE: Patient ID: Robyn Thorpe is a [...] Diagnosis Date Allergic Asthma Back pain Cancer ([facility]) Chronic kidney disease Disease of [...] CARLITOS Haas 12/15/23 1730 documented in this encounterOhio Valley HospitalCurbStand [facility] Choice Medical [id number] History of Present illness Narrative* Cristobal Owens [...] History: Diagnosis Date Allergies Anxiety Arthritis Asthma ([facility]) Cervical cancer ([facility]) COPD (chronic obstructive pulmonary disease) ([facility] Depression ([facility]) History of medical problems knee scraping for knee replacement HTN (hypertension) ([facility]) Kidney disease Medications: Current Outpatient Medications: [...] patient Cristobal Owens DPM documented in this encounterParkland Health [id number] Chief Complaint: [...] mouth in the morning., Disp: , Rfl: rcegkbhbymv-czcbxwnft-ozyciwmq 100-62.5-25 mcg blister with device, INHALE 1 [...] normal in s (more content not included)... [facility]01-29-2024 Miscellaneous Notes* Telephone Encounter - Hilario Hurst CMA - 11/17/2023 8:45 AM EST Patient called into office requesting Referral Tarun Owens [facility] for podiatry in [place] * Telephone Encounter - CARLITOS Haas - [...] 8:45 AM EST done documented in this encounterProtestant Deacon[facility]01-29-2024 Telephone encounter Note* Telephone Encounter - Hilario Hurst CMA - 11/17/2023 8:45 AM EST Patient called into office requesting Referral Tarun Owens [facility] for podiatry in [place] [facility]01-29-2024 Telephone encounter Note* Telephone Encounter - CARLITOS Haas - 11/17/2023 8:45 AM EST I do need a reason (diagnosis is required) to why she wants a referral. [facility]01-29-2024 Telephone encounter Note* Telephone Encounter - Hilario Hurst CMA - 11/17/2023 8:45 AM EST Patient would like her toe nails trimmed, she stated that her hand strength isn't there to cut themherself anymore. [facility]01-29-2024 Telephone encounter Note* Telephone Encounter - CARLITOS Haas - 11/17/2023 8:45 AM EST done [facility]09-06-2023 NoteHTN remains uncontrolled therefore script to increase lisinopril to 10 mg daily. Repeat BMP in 1 week Reviewed labs from 06/19/23 and renal function, liver function and cholesterol are normal and well controlled K+ 5.0- will monitor Veronica Cheney NP Division of Cardiology, [facility] Ph- [phone] Pager- [phone] Email- [email or web address] NotePROCEDURE: XR ANKLE RT MIN 3 VIEWS [...] Electronically authenticated by: YANELIS ENGEL Date: 2022-07-03 10:27[facility]06-15-2022 NotePROCEDURE: XR ANKLE RT MIN 3 [...] Electronically authenticated by: YANELIS ENGEL Date: 2022-04-03 15:51[facility]06-15-2022 NotePROCEDURE: XR ANKLE RT MIN 3 [...] Electronically authenticated by: YANELIS ENGEL Date: 2022-04-03 15:51[facility]05-20-2022 NotePROCEDURE: XR ELBOW RT MIN 3 VIEWS HISTORY: Pain ; right elbow pain and contusion after falling COMPARISON: None. FINDINGS: BONES:No fracture, acute abnormality, or significant arthropathy. SOFT TISSUES:No visible soft tissue swelling. EFFUSION:None visible. OTHER: Negative. IMPRESSION: 1. No acute bone abnormality. 2. Minimal degenerative changes. Electronically authenticated by: YANELIS ENGEL Date: 2022-03-08 12:09[facility]* Diagnosis Renal calculus Calculus of kidney Gross hematuria documented in this encounter [facility] Work Phone: evaluation note* Diagnosis Renal calculus Calculus of kidney Gross hematuria documented in this encounter [employer] Phone: evaluation note* Diagnosis Renal calculus Calculus of kidney Gross hematuria documented in this encounter [employer] Phone: evaluation note* Diagnosis Renal calculus Calculus of kidney Pre-op testing Preoperative examination, unspecified Renal calculus Calculus of kidney documented in this encounter [employer] Phone: evaluation note* Diagnosis Renal calculus Calculus of kidney Pre-op testing Preoperative examination, unspecified Renal calculus Calculus of kidney documented in this encounter [employer] Phone: evalmarirh note* Diagnosis DJD (degenerative joint disease), ankle and foot, right- Primary Other specified disorders of synovium, right ankle and foot Onychomycosis Dermatophytosis of nail Toe pain, bilateral documented in this encounter [facility]* Diagnosis Microscopic hematuria documented in this encounter [employer] noteNo assessment information available [facility] Work Phone: Evaluation note* Diagnosis Peroneal tendon tear, right, initial encounter- Primary Onychomycosis Dermatophytosis of nail Toe pain, bilateral documented in this encounter [facility]* Diagnosis Benign essential HTN- Primary Nonrheumatic mitral valve regurgitation documented in this encounter [facility]* Diagnosis Benign essential HTN- Primary Obesity, morbid ([facility]) Morbid obesity documented in this encounter [facility]* Diagnosis Primary insomnia Persistent disorder of initiating or maintaining sleep documented in this encounter [facility]* Diagnosis Hx of onychomycosis- Primary documented in this encounter [facility]* Diagnosis Fibromyalgia Unspecified myalgia and myositis documented in this encounter [facility]* Diagnosis Benign essential HTN- Primary Anxiety and depression Arthritis, multiple joint involvement Unspecified arthropathy, multiple sites Fibromyalgia Unspecified myalgia and myositis Acquired hypothyroidism Unspecified hypothyroidism Primary insomnia Persistent disorder of initiating or maintaining sleep Chronic bronchitis with emphysema ([facility]) Obstructive chronic bronchitis without exacerbation Special screening for malignant neoplasm of colon Special screening for malignant neoplasms, colon documented in this encounter [facility]* Diagnosis Acquired hypothyroidism- Primary Unspecified hypothyroidism Panlobular emphysema (CMS-HCC) Other emphysema Obesity, morbid ([facility]) Morbid obesity Need for hepatitis C screening test Special screening examination for other specified viral diseases Arthritis, multiple joint involvement Unspecified arthropathy, multiple sites Anxiety and depression Fibromyalgia Unspecified myalgia and myositis Benign essential HTN documented in this encounter [facility]* Diagnosis Chronic bronchitis with emphysema (CMS-HCC) Obstructive chronic bronchitis without exacerbation Arthritis, multiple joint involvement Unspecified arthropathy, multiple sites Anxiety and depression Fibromyalgia Unspecified myalgia and myositis Acquired hypothyroidism Unspecified hypothyroidism Benign essential HTN Primary insomnia Persistent disorder of initiating or maintaining sleep documented in this encounter [facility]* Diagnosis Chronic bronchitis with emphysema ([facility]) Obstructive chronic bronchitis without exacerbation Arthritis, multiple joint involvement Unspecified arthropathy, multiple sites Anxiety and depression Fibromyalgia Unspecified myalgia and myositis Acquired hypothyroidism Unspecified hypothyroidism Benign essential HTN Primary insomnia Persistent disorder of initiating or maintaining sleep History of kidney stones documented in this encounter [facility]* Diagnosis Fibromyalgia- Primary Unspecified myalgia and myositis Need for influenza vaccination Need for prophylactic vaccination and inoculation against influenza Arthritis, multiple joint involvement Unspecified arthropathy, multiple sites Anxiety and depression Acquired hypothyroidism Unspecified hypothyroidism Benign essential HTN Primary insomnia Persistent disorder of initiating or maintaining sleep Chronic bronchitis with emphysema ([facility]) Obstructive chronic bronchitis without exacerbation Mixed hyperlipidemia Screening for diabetes mellitus (DM) Screening for diabetes mellitus documented in this encounter [facility]* Diagnosis Medicare annual wellness visit, subsequent- Primary COPD exacerbation ([facility]) Obstructive chronic bronchitis with exacerbation documented in this encounter [facility]* Diagnosis Benign essential HTN- Primary Arthritis, multiple joint involvement Unspecified arthropathy, multiple sites Fibromyalgia Unspecified myalgia and myositis Acquired hypothyroidism Unspecified hypothyroidism Primary insomnia Persistent disorder of initiating or maintaining sleep Chronic bronchitis with emphysema ([facility]) Obstructive chronic bronchitis without exacerbation History of depression Personal history of other mental disorder documented in this encounter [facility]* Diagnosis Renal calculus Calculus of kidney documented in this encounter [facility]* Diagnosis Gross hematuria Mixed incontinence Mixed incontinence urge and stress (male)(female) Incomplete bladder emptying documented in this encounter [facility] HealthHistory and physical note Author Wanda Hagan [facility] July 21, 2024 8:40amNote Date/TimeOct2023 8:40[place] [address] Gastroenterology H&P Signed Patient: Robyn Thorpe MR#: [id number] : 1955 Acct:[id number] Age/Sex: 68 / F Adm Date: 4 Loc: Room: Type: [facility] Attending Dr: Wanda Hagan MD Copies to: [...] signed by Wanda Hagan MD> 07/21/24 0840 [facility] Work Phone: InstructionsNot on filedocumented in this encounter [facility]ructionsNot on filedocumented in this encounter [facility] SystemInstructionsNot on filedocumented in this encounter [facility]Inst[facility]* Attachments The following attachments cannot be sent through Care Everywhere. * Hypothyroidism (underactive thyroid) ([place]) documented in this encounterProMedica Health SystemInstructions* Attachments The following attachments cannot be sent through Care Everywhere. * Depression ([place]) * Fibromyalgia ([place]) documented in this encounterProMedica Health SystemInstructionsNot on file documented in this encounterProMedica Health SystemInstructionsNot on file documented in this encounterProMedica [facility] SystemInst[facility]* Attachments The following attachments cannot be sent through Care Everywhere. * COPD Diet ([place]) * COPD Exacerbation, Adult ED ([place]enezuelan) documented in this encounterProMedica Health SystemInstructions* Attachments The following attachments cannot be sent through Care Everywhere. * Hypothyroidism (Underactive Thyroid) Discharge Instructions ([place]an) * Chronic Knee Pain ([place]) * Controlling your blood pressure through lifestyle ([place]) documented in this encounterProNewark Hospitalca [facility] Choice Medical CenterReason for referral (narrative)* Consultation (Routine) - Pending ReviewSpecialtyDiagnoses / ProceduresReferred By ContactReferred To ContactPodiatry Diagnoses Hx of onychomycosis Jairo Daley APRN-CNP [address] [place] [address] Cristobal Owens DPM [address] [address] Referral IDStatusReasonStart DateExpiration DateVisits RequestedVisits [id number] Review Specialty Services Required / [facility] Hospital[facility] for referral (narrative)* Consultation (Routine) - Pending ReviewSpecialtyDiagnoses / ProceduresReferred By ContactReferred To ContactGastroenterology Diagnoses Special screening for malignant neoplasm of colon Jairo Daley APRN-CNP [address] [place] [address] Wanda Hagan MD [address] [facility], [address] [address] Referral IDStatusReasonStart DateExpiration DateVisits RequestedVisits [id number] Review Specialty Services Required [facility] HospitalResaint [facility] for referral (narrative)No reason for referral information [...] & PELVIS W/O CONTRST 1/> [place] [address] - CHG CT ABDOMEN & PELVIS W/O CONTRST 1/> BODY RE Jason Dominguez MD [address] [facility], [address] [place] [address] Referral IDStatusReasonStart DateExpiration DateVisits RequestedVisits [id number] / Procedures Referred By ContactReferred To ContactCardiology Diagnoses Renal calculus Pre-op testing Procedures EKG 12 Lead Adele Black, MANAGER CHANGE - INTERNET SALESPERSON [address] [facility] [address] [place] [address] Referral IDStatusReasonStart DateExpiration DateVisits RequestedVisits [id number]/ Chief Complaint and Reason for Visit Chief [...] section and content) DATE CREATED AUTHOR 09/22/2022 [facility] DATE CREATED AUTHOR AUTHOR'S ORGANIZ ATION 03/03/2023 [facility] DATE CREATED AUTHOR AUTHOR'S ORGANIZ ATION 12/19/2023 [facility] DATE CREATED AUTHOR AUTHOR'S ORGANIZ ATION 06/15/2024 [facility] DATE CREATED AUTHOR AUTHOR'S ORGANIZ ATION 07/10/2024 [facility] DATE CREATED AUTHOR AUTHOR'S ORGANIZ ATION 12/18/2024 [facility] DATE CREATED AUTHOR AUTHOR'S ORGANIZ ATION 06/25/2025 [facility] DATE CREATED AUTHOR AUTHOR'S ORGANIZ ATION 07/08/2025 [facility] DATE CREATED AUTHOR AUTHOR'S ORGANIZ ATION 09/01/2025 [facility] Care Teams (unrecognized sec tion and content) Team Status: Active Member Role Status Dates LINDA Haas Primary Care Provider Active Team Status: Inactive Member Role Status Dates LINDA Haas Primary Care Provider Active Start: December 15, 2024 End: December 15, 2024GeorColt Dias ProviderActive Start: December 15, 2024 End: December 15, 2024 Team Status: Active Member Role Status Dates Jairo J Daley , ORE FEEDER-C Primary Care Provider Active Start: December 15, 2024 Hay Rea COLTENttending ProviderActiveStart: December 15, 2024 Team MemberRelationshipSpecialtyStart DateEnd Date Jairo Daley, MANAGER CHANGE - INTERNET SALESPERSON [address], [place] [address] PCP - [facility]12/12/22Team MemberRelationshipSpecialtyStart DateEnd Date Jairo Daley, MANAGER CHANGE - INTERNET SALESPERSON [address], [place] [address] PCP - [facility]12/12/22Team MemberRelationshipSpecialtyStart DateEnd Date Jairo Daley, MANAGER CHANGE - INTERNET SALESPERSON [address], [place] [address] PCP [facility]12/12/22Team MemberRelationshipSpecialtyStart DateEnd Date Jairo Daley, MANAGER CHANGE - INTERNET SALESPERSON [address], [place] [address] PCP - [facility]12/12/22Team MemberRelationshipSpecialtyStart DateEnd Date Jairo Daley, MANAGER CHANGE - INTERNET SALESPERSON [address], [place] [address] PCP - [facility]12/12/22 Team Status: Active Member Role Status Dates Sid Seth DO Attending Provider Active Sta rt: April 26, 2024 Team Status: Inactive Member Role Status Dates Wanda Hagan MD Attending Provider Active Start: July 21, 2024 End: July 21, 2024NIKO HaasCPrregional medical center [facility] Care ProviderActiveStart: July 21, 2024 End: July 21, 2024 Team Status: Active Member Role Status Dates Wanda Hagan MD Attending Provider, Other Provider Active Start: July 21, 2024 Jairo Daley ORE FEEDER-[facility] Care ProviderActiveStart: July 21, 2024 Team MemberRelationshipSpecialtyStart DateEnd Date Unallocated, Shania Cabrera MD [address] [place] [address] [facility]/24 Jairo Daley CRNP [address] [place] [address] Referring PhysicianNurse Practitioner07/08/24Team MemberRelationshipSpecialty Start DateEnd Date Unallocated, Shania Cabrera MD [address] [place] [address] PCP - [facility] Medicine07/08/24 Jairo Daley CRNP [address] [place] [address] Referring PhysicianNurse Practitioner07/08/24Team MemberRelationshipSpecialty Start DateEnd Date Jairo Daley, MANAGER CHANGE-INTERNET SALESPERSON [address] [place] [address] [facility]02/20/22Team MemberRelationshipSpecialtyStart DateEnd Date Jairo Daley, MANAGER CHANGE-INTERNET SALESPERSON [address] [place] [address] [facility] - [facility]02/20/22Team MemberRelationshipSpecialtyStart DateEnd Date Jairo Daley, MANAGER CHANGE-INTERNET SALESPERSON [address] [place] [address] PCP - GeneralFamily Medicine02/20/22Team MemberRelationshipSpecialtyStart DateEnd Date Jairo Daley, MANAGER CHANGE-INTERNET SALESPERSON [address] [place] [address] PCP - GeneralFamily Medicine02/20/22Team MemberRelationshipSpecialtyStart DateEnd Date Jairo Daley, MANAGER CHANGE-INTERNET SALESPERSON [address] [place] [address] PCP - Generalmily Medicine02/20/22Team MemberRelationshipSpecialtyStart DateEnd Date Jairo Daley, MANAGER CHANGE-INTERNET SALESPERSON [address] [place] [address] PCP - Generalmily Medicine02/20/22Team MemberRelationshipSpecialtyStart DateEnd Date Jairo Daley, MANAGER CHANGE-INTERNET SALESPERSON [address] [place] [address] PCP - Generalmily Medicine02/20/22Team MemberRelationshipSpecialtyStart DateEnd Date Jairo Daley, MANAGER CHANGE-INTERNET SALESPERSON [address] [place] [address] PCP - GeneralFamily Medicine02/20/22Team MemberRelationshipSpecialtyStart DateEnd Date Jairo Daley, MANAGER CHANGE-INTERNET SALESPERSON [address] [place] [address] PCP - [facility] Medicine02/20/22Team MemberRelationshipSpecialtyStart DateEnd Date Jairo Daley, MANAGER CHANGE-[facility] [address] [place] [address] PCP - [facility] Medicine02/20/22Team MemberRelationshipSpecialtyStart DateEnd Date Jairo Daley, MANAGER CHANGE-[facility] [address] [place] [address] PCP - [facility] Medicine02/20/22Team MemberRelationshipSpecialtyStart DateEnd Date Jairo Daley, MANAGER CHANGE-[facility] [address] [place] [address] PCP - [facility] Medicine02/20/22Team MemberRelationshipSpecialtyStart DateEnd Date Jairo Daley, MANAGER CHANGE-[facility] [address] [place] [address] PCP - [facility] Medicine02/20/22 Team Status: Inactive Member Role Status Dates Jairo Daley NP-C Primary Care Provider Active Start: January 21, 2025 End: January 21, 2025GeorColt Dias Provider, Referring ProviderActiveStart: January 21, 2025 End: January 21, 2025 Team Status: Active Member Role Status Dates Jairo Daley NP-C Primary Care Provider Active Start: January 21, 2025 Hay Chinik Koromia , MDAttending Provider, Referring Provider, Other ProviderActiveStart: January 21, 2025 Team Status: Inactive Member Role Status Dates LINDA Haas Primary Care Provider Active Start: July 05, 2025 End: July 05, 2025Georwhit ChinikColt Hernandez ProviderActive Start: July 05, 2025 End: [...] & PELVIS W/O CONTRST 1/> [place] [id number] - CHG CT ABDOMEN & PELVIS W/O CONTRST 1/> BODY RE Jason Dominguez MD [address] [place] [address], [address] [place] [address] Referral IDStatusReasonStart DateExpiration DateVisits RequestedVisits [id number] Foot CareDm Nails/ fungusSpecialtyDiagnoses / ProceduresReferred By ContactReferred To Contact Podiatry Diagnoses Hx of onychomycosis Procedures AMB REFERRAL TO PODIATRY Jairo Daley CRNP [address] [place] [address] Cristobal Owens DPM [address] [place] [address] Referral IDStatusReasonStart DateExpiration DateVisits RequestedVisits [id number]/29/20241//[id number] CareNON DM NAIL CAREReasonCommentsHypertensionReasonCommentsMed RefillReasonCommentsHypertension DepressionFibromyalgiaReasonOnset DateCommentsMed Rpweba974ReasonOnset DateCommentsMed Ymggbu514ReasonCommentsHypothyroidismfibroReasonComments Annual ExammedicareReasonCommentscv Goals (unrecognized section and content) [...] BE BASED ON THE PRIMARY CLINICAL RECORDS. [facility]. provides no warranty or guarantee of the accuracy or completeness of information in this document.
[2025-09-22 13:50] LABS: Hematocrit 44.0 % (36.0-48.0); Hemoglobin 14.7 g/dL (12.0-16.0); Immature Granulocytes Abs Auto 0.01 10^3/uL (0.00-0.03); Immature Granulocytes Pct Auto 0.1 % (0.0-0.5); Lymphocytes Absolute Auto 2.3 10^3/uL (1.2-3.8); Mean Corpuscular HGB Conc 33.4 g/dL (29.9-35.2); Mean Corpuscular Hemoglobin 29.5 pg (26.7-34.0); Mean Corpuscular Volume 88.2 fL (81.0-99.0); Platelet Count 235 10^3/uL (150-450); Red Blood Count 4.99 10^6/uL (4.20-5.40); White Blood Count 7.3 10^3/uL (4.0-11.0)
== END 2025-09-22 12:51 | disposition home or self-care (01) ==
LOC: LAB 12:55
PROVIDERS: PCP Nurse Practitioner; Visit Provider Internal Medicine
DX: J43.2 Centrilobular emphysema (principal)
CPT/HCPCS: 36415; 85025

== ENCOUNTER 2025-09-22 13:24 | Outpatient (OUT) | payer MEDICARE, MEDICAID, SELFPAY ==
--- OUTSIDE RECORDS SUMMARY | 2025-09-22 13:27 | XMS_ITS | Clinical Summary ---
Author Organization [facility] Address [address] [place] [address] Care Team Providers Care Assistant Grocery Name Role Phone Emmie Daley MD Primary Care Provider [phone] Allergies Active AllergyReactionsCriticalityNoted RdyjHdgqwfgzGxtzftzyCjpwBbu07/10/2013ee Venom Protein (Honey Bee)PpgamgbghavGirn71/10/2013 Other reaction(s): Not available SyrnrmoassKxezx61/14/2023 Medications MedicationSigDispense QuantityRefillsLast FilledStart DateEnd DateStatus albuterol 90 mcg/actuation inhaler TAKE TWO PUFFS BY MOUTH EVERY 6 HOURS NEEDEDActive EPINEPHrine 0.3 mg/0.3 mL auto-injector USE DIRECTED FOR BEE OAHOZR5001/16/2023ctive vtydlpzndlz-fmlgpwitd-rzmkmhkb 100-62.5-25 mcg blister with device INHALE 1 [...] tablet ctive Active Problems ProblemNoted DateDiagnosed DateUncontrolled drtikmswambm82/14/2023 Assessment & Plan (06/10/2023 11:26 AM EDT): [...] daily for better HTN management Mitral valve wcangphutobzn80/04/2023 Overview (05/23/2023): Mild to mod per 04/26/21 ECHO Assessment & Plan (06/10/2023 11:26 AM EDT): Echo reviewed with pt and noted Mod MV regurg Assessment & Plan (05/23/2023 1:00 PM EDT): Repeat echo ordered in light of SOB with exertion and MR noted on prior echo Intermittent oelbkpbovhzp52/04/2023 Assessment & Plan (05/23/2023 1:01 PM EDT): [...] and electrolytes and pt voiced understanding Tobacco /04/2023 Assessment & Plan (05/23/2023 1:01 PM EDT): Tobacco use is unchanged- pt is not willing to quit smoking at this time Uncomplicated alcohol mafsgmukps14/04/2023 Assessment & Plan (05/23/2023 1:01 PM EDT): [...] of the skull base. History of cervical dtjcpu50 Overview (05/23/2023): resected Renal uxwuwygt62rthritis of left knee Internal derangement of left kneehondromalacia patellae of left kneehronic pain yxhmfxmx21 Dareqorhheto50Lumbar post-laminectomy ivasunnp97/23/2023 05/23/2023Obesity, jmwcti05Sensorineural hearing loss (SNHL) of left ear with unrestricted hearing of right earhronic bronchitis with pjwacdkwf45 Overview (05/23/2023): Last Assessment & Plan: She [...] in left ear Overview (05/23/2023): lifelong lifelong Olutjfv81 Overview (05/23/2023): Last Assessment & Plan: I spent 5 minutes counseling-encouraging her in smoking cessation. Last Assessment & Plan: I spent 5 minutes counseling-encouraging her in smoking cessation. Graves' umgivuw05Essential umwhihwextyz99 Chest painDD (attention deficit disorder)02/06/2012 05/23/20234252Ebdpalqd38Tobacco abuse Immunizations ImmunizationAdministration DatesNext DueInfluenza, Seasonal, Quadrivalent, Pwikscexmj09/11/2022Moderna SARS-CoV-2 Ywmathiuadx57/27/2022neumococcal Conjugate PCV Family History Medical HistoryRelationNameCommentsCoronary artery [...] Last Filed Vital Signs Vital SignReadingTime TakenCommentsBlood Lvcmwwnz503/72011/17/2023 10:32 AM EST Gdvkg899711/17/2023 10:32 AM ESTTemperature--Respiratory Rate--Oxygen Saturation 94%11/17/2023 10:32 AM ESTInhaled Oxygen Concentration--Mwvvdi14.1 kg (203 lb) 11/17/2023 10:32 AM WAQXyfexr765.8 cm (5' 2.5 )11/17/2023 10:32 AM ESTBody Mass Index36.54011/17/2023 10:32 AM EST Plan of Treatment Health MaintenanceDue DateLast DoneCommentsCT Pelhzsirqobv61/17/1957Colonoscopy 1956Colorectal Cancer Hbcsijfqi59/17/1957FIT-DNA1956FIT1956 FOBT1956Medicare Annual Wellness (AWV)1955 1685Mpagkiajetccz90/17/1957 Depression Ejslmiuek51/17/1969Adult Bbfjvwn4712/06/1978Zoster Vaccines (1 of 2) 2006Fall Risk Tvksdftse05/17/3280Jqeatozql54, 08/13/2022 COVID-19 Vaccine ( season), 01/13/2022, 01/13/2022, Additional history existsInfluenza Vaccine (#1)511/10/2022, 07/30/2022neumococcal Vaccine: 50+ EciwbWhkrzbnhx19/14/2022HIB VaccinesAged Out No longer eligible based on [...]
--- OUTSIDE RECORDS SUMMARY | 2025-09-22 13:27 | XMS_ITS | Encounter Summary ---
Author Organization [facility] Address [address], [address] [place] [address] Care Team Providers Care Tanyard Worker Name Role Phone Emmie Daley Rick RELOCATION SPECIALIST - UNIT LEADER Primary Care Prov ider Encounter Details DateTypeDepartmentCare Team (Latest Contact Info)Snqxjgywcad89/18/2025Abstract [facility] Pulmonology [address] [place] [address] 6 [place] [address] [place] [address] [place] [address] 6 [place] [address] Social History Tobacco UseTypesPacks/DayYears UsedDateSmoking Tobacco: Every YxkEbbeqfmhyl239.9 Started: 1965Smokeless Tobacco: Never Comments:Smokes 6-8 cigs/day Alcohol UseStandard Drinks/WeekCommentsYes0 (1 standard drink = 0.6 oz pure alcohol)Beer 2-3 every 2 weeksCommentsNoSex and Gender InformationValue Date RecordedSex Assigned at BirthNot on fileLegal OptVuhfoi12/12/2013 10:17 PM ESTGender IdentityNot on fileSexual OrientationNot on fileOccupationIndustryJob Start 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 on fileNot on fileNot on filedocumented as of this encounter Plan of Treatment DateTypeDepartmentCare Team (Latest Contact Info)Hnubsvhiikd47/10/2026 11:00 AM ESTOffice Visit [facility]anny Pulmonology [address] [place] [address] StanleyOnesimo adanDO [address] [facility] [address] [place] [address] 3 [place] F/U COPD02/07/2026 2:20 PM EDTOffice Visit [facility] CARDIOLOGY Part of [address] [address] Michi Quezada MD [address] [place] [address] Referral from Emmie with Congestive heart hbbrvpj7703/07/2026 10:00 AM EDTOffice Visit [facility] UROLOGY Part of [address] [place] [phone] Katya Stephens, RELOCATION SPECIALIST - UNIT LEADER [address] [place] [address] [address] [place], [place] [phone] 6m pvrdocumented as of this encounter Visit Diagnoses Not on filedocumented in this encounter Additional Health Concerns AssessmentNoted TimeA fall risk assessment has been completed for the patient 08/30/2025 8:20 AM ESTdocumented as of this encounter Care Teams Team MemberRelationshipSpecialtyStart DateEnd Date Emmie Daley, RELOCATION SPECIALIST - UNIT LEADER PCP - General12/12/22documented as of this encounter
--- OUTSIDE RECORDS SUMMARY | 2025-09-22 13:27 | XMS_ITS | Encounter Summary ---
Author Organization [facility] Address [address], [address] [place] [address] Care Team Providers Care Gold Blower Name Role Phone Emmie Daley Rick WATER FILTERER - PROGRAM COUNSELOR Primary Care Prov ider Encounter Details DateTypeDepartmentCare Team (Latest Contact Info)Qwjesxjednc94/20/2025Orders Only [facility] Pulmonology [address] [facility], [facility] [address] [place] [address] Dennis Myers MA Cigarette nicotine dependence with nicotine-induced disorder; Encounter for screening for lung cancer Social History Tobacco UseTypesPacks/DayYears UsedDateSmoking Tobacco: Every LfeTsuxyuyuwu917.9 Started: 1965Smokeless Tobacco: Never Comments:Smokes 6-8 cigs/day Alcohol UseStandard Drinks/WeekCommentsYes0 (1 standard drink = 0.6 oz pure alcohol)Beer 2-3 every 2 weeksCommentsNoSex and Gender InformationValue Date RecordedSex Assigned at BirthNot on fileLegal HcuEuyqyn69/12/2013 10:17 PM ESTGender IdentityNot on fileSexual OrientationNot on fileOccupationIndustryJob Start 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 on fileNot on fileNot on filedocumented as of this encounter Plan of Treatment DateTypeDepartmentCare Team (Latest Contact Info)Hhzouxbqbzz74/10/2026 11:00 AM ESTOffice Visit [facility] Pulmonology [address] [facility], [address] [place] [address] Onesimo Spaulding, [address] [facility] [address] [place] [address] 3 [place] F/U COPD02/07/2026 2:20 PM EDTOffice Visit [facility] CARDIOLOGY Part of [address] [phone] Michi Quezada MD [address] [place] [address] Referral from Emmie with Congestive heart pccjjqb6203/07/2026 10:00 AM EDTOffice Visit [facility] UROLOGY Part of [address] [place] [phone] Katya Stephens WATER FILTERER - PROGRAM COUNSELOR [address] [place] [address] [address] [place] [address] 6m pvrdocumented as of this encounter Procedures Procedure NamePriorityDate/TimeAssociated DiagnosisCommentsCT LUNG SCREENING (INITIAL/ANNUAL)Tduwqaa3009/06/2025 Cigarette nicotine dependence with nicotine-induced disorder Encounter for screening for lung cancer documented in this encounter Results * CT LUNG CANCER SCREENING (INITIAL/ANNUAL) (09/06/2025)Anatomical Region LateralityModalityLung, ChestComputed Tomography Narrative Authorizing ProviderResult TypeResult StatusNatgalo Spaulding DOI CT ORDERABLES Final Result documented in this encounter Visit Diagnoses Diagnosis Cigarette nicotine dependence with nicotine-induced disorder Unspecified drug-induced mental disorder Encounter for screening for lung cancer documented in this encounter Additional Health Concerns AssessmentNoted TimeA fall risk assessment has been completed for the patient 08/30/2025 8:20 AM ESTdocumented as of this encounter Care Teams Team MemberRelationshipSpecialtyStart DateEnd Date Emmie Daley, WATER FILTERER - PROGRAM COUNSELOR PCP - General12/12/22documented as of this encounter
--- OUTSIDE RECORDS SUMMARY | 2025-09-22 13:27 | XMS_ITS | Clinical Summary ---
Author Organization [facility] Address [id number] [address] [place] [address] Care Team Providers Care Creative Services Coordinator Name Role Phone Unavailable Primary Care Provider Unavailabl e Allergies Active AllergyReactionsCriticalityNoted DateCommentsBee Venom Protein (Honey Bee)02/20/20229091BhjimnzkciCrgwq05/14/2075GmirgyzoMowkDuq26/10/2013 Medications MedicationSigDispense QuantityRefillsLast FilledStart DateEnd DateStatus nitroglycerin (NITROSTAT) 0.4 MG SL tablet as directed SublingualActive albuterol (PROVENTIL HFA;VENTOLIN HFA) 90 mcg/actuation inhaler Indications:Chronic bronchitis with emphysema ([facility])Inhale 2 puffs every 4 (four) hours as needed for wheezing or shortness of breath. 18 g 603/4Active losartan (COZAAR) 100 mg tablet Indications:Benign essential HTNTake 1 tablet (100 mg total) by mouth in the morning. 90 tablet 301/737037/6Active diclofenac (VOLTAREN) 75 mg EC tablet Indications:Arthritis, [...] by mouth in the morning. 90 tablet /[id number] traZODone (DESYREL) 150 mg tablet Indications:Primary insomniaTake [...] Active Problems ProblemNoted DateDiagnosed DateCervical spondylosis without enbjlomfix95/01/2023 Spondylosis without myelopathy or radiculopathy, lumbar azjvmr3208/20/2023one cyst05/23/2023 Overview (08/20/2023): In January 2013 reports 3 year history of slowly enlarging mass in the mouth that has become more bothersome recently, because her upper dentures no longer fit. She reports painin the area, but no trismus and no weight loss. 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 Intermittent tjpjrgnfaobw75/04/2023 Overview (08/20/2023): Last Assessment & Plan: Stable with metoprolol Tobacco ybmdwwgbqg86/04/2023 Overview (08/20/2023): Last Assessment & Plan: Tobacco use is unchanged- pt is not willing to quit smoking at this time Renal tyolrtwp24/03/2023rthritis of left knee11/11/2022hronic pain disorder 11/11/20223483Vjovbrlmavsa77/23/2023Lumbar post-laminectomy nozterfe17/23/2023 Chondromalacia patellae of left knee11/11/2022Internal derangement of left knee 11/11/2022Sensorineural hearing loss (SNHL) of left ear with unrestricted hearing of right ear11/11/2022Obesity, vmltmm5411/11/2022eafness in left ear 04/01/2022 Overview (04/01/2022): lifelong Lcbpqsb9404/01/2022 Overview (04/01/2022): Last Assessment & Plan: I spent 5 minutes counseling-encouraging her in smoking cessation. Mitral valve blpdcdlcytwtt43/26/2021Graves' kejbgfy4305/25/2020Essential iqmnkxmelnkv82/22/2020Atypical chest pain05/19/2018 Overview (08/20/2023): Last Assessment & Plan: Stable ADD (attention deficit disorder)02/06/20121960Tiuikntb59/19/2012 Resolved Problems ProblemNoted DateDiagnosed DateResolved DatePanlobular qultelxcp98/22/2024 5Chronic bronchitis with sheowdfci56 Overview (04/01/2022): Last Assessment & Plan: She [...] indicated. Immunizations ImmunizationAdministration DatesNext DueInfluenza Vaccine, Quadrivalent, Tqnxecbwnf19/01/2023,07/30/2022Influenza, Trivalent, Zojzjsqrnm92/22/2024 Pneumococcal Shvhbbgbn60/14/2022neumococcal Conjugate 20-kkzjrj8310/02/2022 Family History Medical HistoryRelationNameCommentsCancerBrotherDiabetesDaughter 1Kidney failure Daughter 1Heart diseaseFatherLeukemiaFatherCancerMotherHeart diseaseMotherKidney diseaseMotherRelationNameStatusCommentsBrotherDeceasedDaughter 1AliveDaughter 2 AliveFatherDeceasedMotherDeceased Social History Tobacco UseTypesPacks/DayYears UsedDateSmoking Tobacco: Every DayCigarettes0.556 Smokeless Tobacco: Never Tobacco Cessation:Ready to Q uit: Not Asked; Counseling Given: Not Answered Alcohol UseStandard Drinks/WeekCommentsYes0 (1 standard drink = 0.6 oz pure alcohol)on weekends, not often.PHQ-2AnswerDate RecordedTotal Rlooc783 ChildcareAnswerDate ZfoedwtoBhkigrmttKnsxpkv60/12/2019EmploymentAnswerDate BwxznnviDduxyokgxdChnjpum13/12/2019Hunger ScreeningAnswerDate RecordedWithin the past 12 months we worried whether our food would run out before we got money to buy more.Never True12/16/2024Within the past 12 months the food we bought just didn't last and we didn't have money to get more.Never True12/16/2024 CommentsUnknownSex and Gender InformationValueDate RecordedSex Assigned at Not on fileLegal VklCnmmne70/03/2017 10:24 AM ESTGender IdentityNot on file Sexual OrientationNot on file Last Filed Vital Signs Vital SignReadingTime TakenCommentsBlood Ysjdiqwg312/8002/ 1:34 PM EST Xsmxe7899/27/2025 1:34 PM OZNQuodlkyhzxz85.4 ??C (97.6 ??F)12/16/2024 1:34 PM ESTRespiratory Sxmn442112/16/2024 1:34 PM ESTOxygen Hndljiagrl62%12/16/2024 1:34 PM ESTInhaled Oxygen Concentration--Hwtida04.5 kg (212 lb 11.2 oz)12/16/2024 1:34 PM GCIOometx865 cm (5' 2.99 )12/16/2024 1:34 PM ESTBody Mass Index37.69 12/16/2024 1:34 PM EST Plan of Treatment Health MaintenanceDue DateLast DoneCommentsTobacco Gayybthtcp39/17/1957DTaP,Tdap and Td Vaccines (1 - Tdap)12/06/19752321Ldmpsjnwbtv75/17/2002Zoster (Shingles) Vaccine (1 of 2)2006RSV ( or age 60+ yrs) (1 - Risk 60-74 years 1- dose series)12/06/20165513Ufktmafdg20OVID-19 Vaccine ( - season)/07/2024, 08/14/2022, 01/13/2022, Additional history exists Influenza Gvaqyly60/, 07/29/2024, 08/20/2023, Additional history existsMedicare Annual Wellness Visit, 08/20/2023, 07/30/2022dult BMI Follow Up Plandult BMI Screening Depression Cmbtcscqw01Fall Risk Screening Tobacco Abkzgsdpu50 Medical Devices Not on file Procedures Procedure NamePriorityDate/TimeAssociated DiagnosisCommentsMAMM SCREENING BILATERAL W UAEFqznoyy04/25/2022 Encounter for screening mammogram for malignant neoplasm of breast from Last 3 Months or Most Recently Relevant to Health Maintenance Results * Mammography screening bilateral with CAD (08/13/2022)Anatomical Region LateralityModalityBreastBilateralMammographySpecimen (Source)Anatomical Location / LateralityCollection Method / VolumeCollection TimeReceived Time 08/13/2022 Narrative Authorizing ProviderResult TypeResult StatusValeroger Daley CHIEF ENTERPRISE ARCHITECT-CNPIMG MAMMOGRAPHY ORDERABLESFinal Result from Last 3 Months or Most Recently Relevant to Health Maintenance Insurance
--- OUTSIDE RECORDS SUMMARY | 2025-09-22 13:27 | XMS_ITS | Encounter Summary ---
Author Organization [facility] Address [address], [address] [place] [address] Care Team Providers Care Engine Specialist Name Role Phone Emmie Daley CAREER CONSULTANT - LEAD DIE MOLDER Primary Care Prov ider Encounter Details DateTypeDepartmentCare Team (Latest Contact Info)Dqtiaobkqrh61/21/2025Orders Only [facility] Pulmonology [address] [place] [address] Dennis Myers MA Centrilobular emphysema Social History Tobacco UseTypesPacks/DayYears UsedDateSmoking Tobacco: Every MqfYnmkwbvjqp862.9 Started: 1965Smokeless Tobacco: Never Comments:Smokes 6-8 cigs/day Alcohol UseStandard Drinks/WeekCommentsYes0 (1 standard drink = 0.6 oz pure alcohol)Beer 2-3 every 2 weeksCommentsNoSex and Gender InformationValue Date RecordedSex Assigned at BirthNot on fileLegal QcgCeqpjo21/12/2013 10:17 PM ESTGender IdentityNot on fileSexual OrientationNot on fileOccupationIndustryJob Start 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 on fileNot on fileNot on filedocumented as of this encounter Plan of Treatment DateTypeDepartmentCare Team (Latest Contact Info)Objozlfgdxu88/10/2026 11:00 AM ESTOffice Visit [facility] Pul[facility] [address], [address] [place] [address] Onesimo Spaulding, [address] [facility] [address] [place] [address] 3 [place] F/U COPD02/07/2026 2:20 PM EDTOffice Visit [facility] CARDIOLOGY Part of [address] [phone] Michi Quezada MD [address] [place] [address] Referral from Emmie with Congestive heart gkikscn2803/07/2026 10:00 AM EDTOffice Visit [facility] UROLOGY Part of [address] [place] [address] Katya Stephens, CAREER CONSULTANT - LEAD DIE MOLDER [address] [place] [address] [address] [place] [address] 6m pvrdocumented as of this encounter Procedures Procedure NamePriorityDate/TimeAssociated DiagnosisCommentsFULL PFT STUDY WITH QSOPRKDNXMXXYHEhdbaqp04/18/2025 Centrilobular emphysema documented in this encounter Results * Full PFT Study With Bronchodilator (09/06/2025)ComponentValueRef RangeTest MethodAnalysis TimePerformed AtPathologist SignatureFVC-PreFVC PredFVC %Lnxl-KgkCRC-XljjONO %Laxc-NtlnQLP4-NxcEGK0 PredFEV1 %Iweu-ZuzJKA2-VkceEOQ4 %Pred-PostFEV1/FVC-PreFEV1/FVC PredFEV1/FVC %Pred-PreFEV1/FVC-PostFEV1/FVC %Pred-PostFEF 81-55-FcjHDK 25-75% PredFEF 25-75% %Pred-PreFEF 39-46-LygoHBY 25-75 Post %PredFEF 25-75 %ChangeExpiratory TimeExpiratory Zozh-LmewDDZ-LhnJUR PredPEF %Puxq-UtfPIP-RvbtIBG %Pred-PostPEF %ChangeMVV-PreMVV PredMVV %Pred-Pre DLCODLCO PredDLCO %PredDLCO/VADLCO/VA PredDLCO/VA %PredVAVA PredVA %PredRawRaw PredRaw %PredGawGAW PREDGaw %PredSVCSVC PredSVC %PredTLCTLC PredTLC Pre %Pred RVRV PredRV Pre %PredICIC PredIC Pre %PredVTGVTG PredVTG %PredMIPMEP Narrative Authorizing ProviderResult TypeResult StatusN[facility] DOPFT ORDERABLESFinal Result documented in this encounter Visit Diagnoses Diagnosis Centrilobular emphysema Other emphysema documented in this encounter Additional Health Concerns AssessmentNoted TimeA fall risk assessment has been completed for the patient 08/30/2025 8:20 AM ESTdocumented as of this encounter Care Teams Team MemberRelationshipSpecialtyStart DateEnd Date Emmie Daley, NADEEM - LEAD DIE MOLDER PCP - General12/12/22documented as of this encounter
--- OUTSIDE RECORDS SUMMARY | 2025-09-22 13:27 | XMS_ITS | Encounter Summary ---
Author Organization [facility] Address [address], [address] [place] [address] Care Team Providers Care Licensed Guide Name Role Phone Emmie Daley Rick HYDROGRAPHY TEACHER - CHURCH WORKER Primary Care Prov ider Encounter Details DateTypeDepartmentCare Team (Latest Contact Info)Nyfdeeohupi70/20/2025Abstract [facility] Pulmonology [address] [place] [address] 6 [place] [address] [place] [address] [place] [address] 6 [place] [address] Social History Tobacco UseTypesPacks/DayYears UsedDateSmoking Tobacco: Every OwdQijfktbyeg705.9 Started: 1965Smokeless Tobacco: Never Comments:Smokes 6-8 cigs/day Alcohol UseStandard Drinks/WeekCommentsYes0 (1 standard drink = 0.6 oz pure alcohol)Beer 2-3 every 2 weeksCommentsNoSex and Gender InformationValue Date RecordedSex Assigned at BirthNot on fileLegal LqnLuhtrj02/12/2013 10:17 PM ESTGender IdentityNot on fileSexual OrientationNot on fileOccupationIndustryJob Start 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 on fileNot on fileNot on filedocumented as of this encounter Plan of Treatment DateTypeDepartmentCare Team (Latest Contact Info)Vkygdfsrpsi11/10/2026 11:00 AM ESTOffice Visit [facility]anny Pulmonology [address] [place] [address] StanleyOnesimo adanDO [address] [facility] [address] [place] [address] 3 [place] F/U COPD02/07/2026 2:20 PM EDTOffice Visit [facility] CARDIOLOGY Part of [address] [address] Michi Quezada MD [address] [place] [address] Referral from Emmie with Congestive heart gkhcimm2003/07/2026 10:00 AM EDTOffice Visit [facility] UROLOGY Part of [address] [place] [phone] Katya Stephens, HYDROGRAPHY TEACHER - CHURCH WORKER [address] [place] [address] [address] [place], [place] [phone] 6m pvrdocumented as of this encounter Visit Diagnoses Not on filedocumented in this encounter Additional Health Concerns AssessmentNoted TimeA fall risk assessment has been completed for the patient 08/30/2025 8:20 AM ESTdocumented as of this encounter Care Teams Team MemberRelationshipSpecialtyStart DateEnd Date Emmie Daley, HYDROGRAPHY TEACHER - CHURCH WORKER PCP - General12/12/22documented as of this encounter
--- OUTSIDE RECORDS SUMMARY | 2025-09-22 13:27 | XMS_ITS | Encounter Summary ---
Author Organization [facility] Address [address], [address] [place] [address] Care Team Providers Care Electronic Prepress Technician Name Role Phone DaleyEmmie doe Rick COLLEGE ASSOCIATE - SALON ASSISTANT Primary Care Prov ider Encounter Details DateTypeDepartmentCare Team (Latest Contact Info)Dtrweuuxnnn00/21/2025Abstract [facility] Pulmonology [address] [place], [place] [id number] Onesimo Spaulding, [address] [place] [address] Social History Tobacco UseTypesPacks/DayYears UsedDateSmoking Tobacco: Every [id number] Started: 1965Smokeless Tobacco: Never Comments:Smokes 6-8 cigs/day Alcohol UseStandard Drinks/WeekCommentsYes0 (1 standard drink = 0.6 oz pure alcohol)Beer 2-3 every 2 weeksCommentsNoSex and Gender InformationValue Date RecordedSex Assigned at BirthNot on fileLegal SzdTohgxd43/12/2013 10:17 PM ESTGender IdentityNot on fileSexual OrientationNot on fileOccupationIndustryJob Start 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 on fileNot on fileNot on filedocumented as of this encounter Plan of Treatment DateTypeDepartmentCare Team (Latest Contact Info)Uqepmzjmbqc67/10/2026 11:00 AM ESTOffice Visit [facility] [place] [facility] [address] [place] [address] Onesimo Spaulding DO [address] [place] [address] 3 [place] F/U COPD02/07/2026 2:20 PM EDTOffice Visit [facility] CARDIOLOGY Part of [address] [address] Michi Quezada MD [address] [place] [phone] Referral from Emmie with Congestive heart nvzpnjn1903/07/2026 10:00 AM EDTOffice Visit [facility] UROLOGY Part of [address] [place] [address] Katya Stephens, COLLEGE ASSOCIATE - SALON ASSISTANT [address] [place] [address] [address] [phone] 6m pvrdocumented as of this encounter Visit Diagnoses Not on filedocumented in this encounter Additional Health Concerns AssessmentNoted TimeA fall risk assessment has been completed for the patient 08/30/2025 8:20 AM ESTdocumented as of this encounter Care Teams Team MemberRelationshipSpecialtyStart DateEnd Date Emmie Daley, COLLEGE ASSOCIATE - SALON ASSISTANT PCP - General12/12/22documented as of this encounter
--- OUTSIDE RECORDS SUMMARY | 2025-09-22 13:27 | XMS_ITS | Encounter Summary ---
Author Organization [facility] Address [address], [address] [place] [address] Care Team Providers Care Stock Speculator Name Role Phone Emmie Daley Rick SACK CLEANER - PARTNER CCO Primary Care Prov ider Encounter Details DateTypeDepartmentCare Team (Latest Contact Info)Qubhqigkdmp49/17/2025Abstract [facility] [place] Pulmonology [address] [place] [address] Onesimo Spaulding DO [address] [place] [address] Social History Tobacco UseTypesPacks/DayYears UsedDateSmoking Tobacco: Every IbcDtogmtngvc258.9 Started: 1965Smokeless Tobacco: Never Comments:Smokes 6-8 cigs/day Alcohol UseStandard Drinks/WeekCommentsYes0 (1 standard drink = 0.6 oz pure alcohol)Beer 2-3 every 2 weeksCommentsNoSex and Gender InformationValue Date RecordedSex Assigned at BirthNot on fileLegal HpqKdlwuz35/12/2013 10:17 PM ESTGender IdentityNot on fileSexual OrientationNot on fileOccupationIndustryJob Start 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 on fileNot on fileNot on filedocumented as of this encounter Plan of Treatment DateTypeDepartmentCare Team (Latest Contact Info)Ytdxtmexzyb13/10/2026 11:00 AM ESTOffice Visit [facility] [place] [facility] [address] [place] [address] StanleyOnesimo adanDO [address] [place] [address] 3 [place] F/U COPD02/07/2026 2:20 PM EDTOffice Visit [facility] CARDIOLOGY Part of [address] [address] Michi Quezada MD [address] [place] [address] Referral from Emmie with Congestive heart cjwucyz5503/07/2026 10:00 AM EDTOffice Visit [facility] UROLOGY Part of [address] [place] [address] Katya Stephens, SACK CLEANER - PARTNER CCO [address] [place] [address] Kehinde [address] [phone] 6m pvrdocumented as of this encounter Visit Diagnoses Not on filedocumented in this encounter Additional Health Concerns AssessmentNoted TimeA fall risk assessment has been completed for the patient 08/30/2025 8:20 AM ESTdocumented as of this encounter Care Teams Team MemberRelationshipSpecialtyStart DateEnd Date Emmie Daley, SACK CLEANER - PARTNER CCO PCP - General12/12/22documented as of this encounter
--- OUTSIDE RECORDS SUMMARY | 2025-09-22 13:27 | XMS_ITS | Clinical Summary ---
Author Organization [facility] Address [address], [address] [place] [address] Care Team Providers Care Paint Spray Inspector Name Role Phone DaleyEmmie Rick AWNING HANGER - MASTER SONAR TECHNICIAN Primary Care Prov ider Allergies Active AllergyReactionsCriticalityNoted DateCommentsAdhesive TapeRashLow 01/27/2013ee EjrfaYuuxbvdsbbgXxoz05/16/9610DdjvfbabeeUxnipFbjz24/14/2023 Medications MedicationSigDispense QuantityRefillsLast FilledStart DateEnd DateStatus hydrocodone-acetaminophen (LORTAB) 7.5-500 MG per tablet Take 1 tablet by mouth. 1 tab Q 4 hrs PRNActive atomoxetine (STRATTERA) 25 MG capsule Take 1 capsule by mouth daily. 30 capsule ctive Additional Information Patient not taking.Reported on 09/07/2025 EPINEPHrine (EPIPEN 2-ROSALINDA) 0.3 MG/0.3ML DANIELLE injection Inject 0.3 mLs into the muscle once as needed for 1 dose. 1 Device ctive gabapentin (NEURONTIN) 300 MG capsule Take 1 [...] tablet TAKE 1 TABLET BY MOUTH AT DADCGMO85/12/2023Active spironolactone (ALDACTONE) 25 MG tablet Take 1 tablet by mouth daily 30 tablet 1103Active diclofenac (VOLTAREN) 75 MG EC tablet Take 1 tablet by mouth 2 times daily5Active FLUoxetine (PROZAC) 10 MG capsule Take 1 capsule by mouth daily5Active amLODIPine (NORVASC) 10 MG tablet Take 1 tablet by mouth dailyActive levothyroxine (SYNTHROID) 25 MCG tablet Take 1 tablet by mouth daily5Active hydroCHLOROthiazide (HYDRODIURIL) 25 MG tablet Take 1 tablet by mouth daily5Active losartan (COZAAR) 100 MG tablet Take 1 tablet by mouth daily5Active KLAYESTA 157784 UNIT/GM powder Apply 1 g topically 2 times daily APPLY TO AFFECTED AREA5Active traMADol (ULTRAM) 50 MG tablet Take 1 tablet by mouth every 8 hours as needed.5Active fluconazole (DIFLUCAN) 150 MG tablet Take 1 tablet by mouth daily5Active qsjxziiyjgh-epovrdarp-koklam (TRELEGY ELLIPTA) 100-62.5-25 MCG/ACT AEPB inhaler Indications:Centrilobular emphysema (HCC)Inhale 1 puff into the lungs daily Rinse after use 3 each 5Active albuterol sulfate HFA (PROVENTIL;VENTOLIN;PROAIR) 108 (90 Base) MCG/ACT inhaler Indications:Centrilobular emphysema (HCC)Inhale 2 puffs into the lungs every 4 hours as needed for Shortness of Breath 54 g 5Active tamsulosin (FLOMAX) 0.4 MG capsule Take 1 capsule by mouth every evening 90 capsule 5Active zlokavijomd-octjooahc-efvnjd (TRELEGY ELLIPTA) 100-62.5-25 MCG/ACT AEPB inhaler Trelegy Ellipta 100 mcg-62.5 mcg-25 mcg powder for inhalation INHALE 1 PUFF BY MOUTH EVERYDAY *RINSE MOUTH AFTER USE*08/30/2025Discontinued albuterol sulfate HFA (PROVENTIL;VENTOLIN;PROAIR) 108 (90 Base) MCG/ACT inhaler INHALE 2 PUFFS EVERY 4 HOURS NEEDED FOR WHEEZING OR SHORTNESS OF BREATH /08/2025Discontinued(REORDER) tamsulosin (FLOMAX) 0.4 MG capsule Take 1 capsule by mouth every evening 30 capsule /20241020/Discontinued(REORDER) lsrlhvntrzu-mzvxtoewt-arnnhd (TRELEGY ELLIPTA) 100-62.5-25 MCG/ACT AEPB inhaler Inhale 1 puff into the lungs dailyDiscontinued Active Problems ProblemNoted DateDiagnosed DateLong term (current) use of inhaled steroids 08/29/2025 Assessment & Plan (08/30/2025 9:46 AM EST): The patient was counseled to rinse and gargle after use of her steroid- containing inhaler to reducethe risk of oral candidiasis and other potential adverse effects. Centrilobular emphysema Assessment & Plan (08/30/2025 9:46 AM EST): Patient's control is worsening Despite Trelegy, she is having to use her albuterol up to every 4 hours; some days, more often than that. Long discussion that this is not unexpected as she is aging and she continues to smoke. Several options are unavailable d/t her active smoking (e.g. endobronchialvalves). She has not participated in pulmonary rehabilitation. Discussed medication treatments of Ohtuvayre and Dupixent/Nucala. Ohtuvayre can be added on top of Trelegy, is via nebulizer (she does not have one), and discussed adverse effects such as mood changes and decreased appetite. It can be expensive. Would need a CBC to check eosinophils to see if she would be a candidate for Dupixent/Nucala - these are even more expensive than Ohtuvayre. Patient voiced she would like to try Ohtuvayre. PFT would need to be done within 1 year to qualify for pulmonaryrehabilitation. There may also be an underlying cardiac component contributing as well, but the majority of her symptoms are likely pulmonary-related. She follows with [facility] Cardiology. Plan: -Begin paperwork for Ohtuvayre -CBC -PFT (has been >4 years since last done) -Work on smoking cessation A tlay-ua-dalv encounter was performed with the patient today in order to document need for a nebulizer with nebulized medications. She requires a nebulizer for the following reason: -The particular medication required to treat this condition, ensifentrine (Ohtuvayre) is available only by nebulized administration. This documentation authorizes the order of the nebulizer and all associated supplies. Will see her back in 3 months to review the above, especially as she is doing worse. Orders: CBC with Auto Differential; Future nssxcbercpc-gtpvsimmh-alfmrz (TRELEGY ELLIPTA) 100-62.5-25 MCG/ACT AEPB inhaler; Inhale 1 puff intothe lungs daily Rinse after use albuterol sulfate HFA (PROVENTIL;VENTOLIN;PROAIR) 108 (90 Base) MCG/ACT inhaler; Inhale 2 puffs into the lungs every 4 hours as needed for Shortness of Breath Full PFT Study With Bronchodilator; Future Cigarette nicotine dependence with nicotine-induced disorder Assessment & Plan (08/30/2025 9:46 AM EST): Discussed smoking cessation for 4 minutes. Patient continues to smoke. She voiced she wants to stop, but she just can't. She has tried numerous cessation treatments in the past without any success. She was looking into hypnosis, but none are available locally. I asked if she had done any research online, or look to see if there were any YouTube videos. She said she did not look into anything online. I recommended she broaden her search. There may be programs in a larger market such as [facility], so she may need to travel. She stated she will begin looking further on the internet. LDCT was due May 2025, but it does not appear that it was done. Last LDCT 05/29/2023 (RADS-2). Ordering LDCT to be done as soon as patient is able. She voiced understanding. Orders: CT LUNG CANCER SCREENING (INITIAL/ANNUAL); Future Multiple pulmonary nodules Assessment & Plan (08/30/2025 9:46 AM EST): LDCT 05/29/2023 shows a few scattered 3mm nodules that are stable/unchanged compared to prior testing LDCT 05/29/2023. No further F/U required according to current Fleischner Society Guidelines; they will continue to be monitored via annual LDCT screening. Resolved Problems ProblemNoted DateDiagnosed DateResolved DateRenal sujleadt15 Xrnvwpos48DD (attention deficit disorder) Tobacco abuse Encounters DateTypeDepartmentCare QvijXcabqulwqtq31/21/2025Telephone [facility] Pulmonology [address] [place] [address] [address] [place] [address] Onesimo Spaulding, CBC Order09/09/2025bstract [facility] Pul[facility]ology [address] [place] [address] [address] [place] [address] Onesimo Spaulding, DO 09/09/2025Orders Only [facility] [address] [place] [address] [address] [place] [address] Dennis Myers MA Centrilobular vuohylbkz49/20/2025bstract [facility] [address], [address] [place] [address] Onesimo Spaulding, DO 09/08/2025Orders Only [facility] [address], [address] [place] [address] Dennis Myers MA Cigarette nicotine dependence with nicotine-induced disorder; Encounter for screening for lung zfbbwy3909/07/2025 1:15 PM ESTOffice Visit [facility] Part of [address] [place] [address] Angel Sow PA-C Renal calculus (Primary Dx); Gross hematuria; Mixed incontinence; Incomplete bladder zivofegy74/18/2025[facility] [address], [address] [place] [address] Onesimo Spaulding DO 09/05/2025[facility] [address] [place] [address] Onesimo Spaulding DO 08/31/2025 10:59 AM EST - 09/02/2025 11:59 PM ESTHospital Encounter [facility] [address] [place] [address] Renal calculus; Gross hematuria Discharge Disposition: Home or Self Care08/31/2025 10:58 AM ESTHospital Encounter [facility] [address] [place] [phone] Renal calculus; Gross hematuria; Mixed incontinence; Incomplete bladder emptying Discharge Disposition: Home or Self Care08/30/2025 8:00 AM ESTOffice Visit [facility] [address], [address] [place] [address] Onesimo Spaulding DO Centrilobular emphysema (Primary Dx); Multiple pulmonary nodules; Cigarette nicotine dependence with nicotine-induced disorder; MCC (current) use of inhaled steroids; Encounter for screening for lung cancer; Class 2 obesity without serious comorbidity with body mass index (BMI) of 38.0 to 38.9 in adult, unspecified obesity type07/29/2025[facility] [address] [place] [address] Onesimo Spaulding DO 07/19/2025Results Follow-Up [facility] Part of [address] [place] [address] Katya Stephens, AWNING HANGER - MASTER SONAR TECHNICIAN Zzhaboj6007/18/2025 11:18 AM EDT - 07/18/2025 11:59 PM EDTHospital Encounter [facility] [address] [place] [address] Gross hematuria; Mixed incontinence; Incomplete bladder emptying Discharge Disposition: Home or Self Care07/18/2025 10:00 AM EDTOffice Visit [facility] [address] [place] [address] Angel Sow PA-C Incomplete bladder emptying (Primary Dx); Renal calculus; Gross hematuria; Mixed incontinence; Congestive heart failure, unspecified HF chronicity, unspecified heart failure type (HCC)07/18/2025Results Follow-Up [facility] [place] [address] Angel Sow PA-C 07/12/2025 10:38 AM EDT - 07/14/2025 11:59 PM EDTHospital Encounter [facility] [address] [place] [address] Renal calculus Discharge Disposition: Home or Self Carefrom Last 3 Months Immunizations ImmunizationAdministration DatesNext DueCOVID-19, SPIKEVAX (Moderna), (age 12y+), IM, 50mcg/0.5mL07/29/2024Influenza, FLUAD, (age 65 y+), IM, Quadv, 0.5mL 08/20/2023,07/30/2022Influenza, FLUAD, (age 65 y+), IM, Trivalent PF, 0.5mL 08/10/2024Influenza, FLUZONE High Dose, (age 65 y+), IM, Trivalent PF, 0.5mL 07/29/2024neumococcal, PCV20, PREVNAR 20, (age 6w+), IM, 0.5mL10/02/2022TDaP, ADACEL (age 10y-64y), BOOSTRIX (age 10y+), IM, 0.5mL04/02/2025Zoster Recombinant (Shingrix)07/07/2025,04/02/2025 Family History Medical HistoryRelationNameCommentsCancerBrotherCancerFatherHeart FailureFather HypertensionFatherCancerMotherDiabetes type 2MotherHeart DiseaseMother HypertensionMotherCancerOtherLeukemia, liver cancer, lung cancer, bladder cancer OtherOtherCHFRelationNameStatusCommentsBrotherFatherMotherOther Social History Tobacco UseTypesPacks/DayYears UsedDateSmoking Tobacco: Every KtmRclujmkoly797.9 Started: 1965Smokeless Tobacco: Never Tobacco Cessation:Ready to Q uit: Not Asked; Counseling Given: No Comments:Smokes 6-8 cigs/day Alcohol UseStandard Drinks/WeekCommentsYes0 (1 standard drink = 0.6 oz pure alcohol)Beer 2-3 every 2 weeksCommentsNoSex and Gender InformationValue Date RecordedSex Assigned at BirthNot on fileLegal EinKrinfw56/12/2013 10:17 PM ESTGender IdentityNot on fileSexual OrientationNot on fileOccupationIndustryJob Start 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 on fileNot on fileNot on file Last Filed Vital Signs Vital SignReadingTime TakenCommentsBlood Iztggtwl787/7609/07/2025 1:12 PM EST Hmwwl179309/07/2025 1:12 PM HCPHsyqhcddrek86.2 ??C (97.1 ??F)09/07/2025 1:12 PM ESTRespiratory Vzoz318410/30/2024 8:12 AM ESTOxygen Bbibqolhww66%08/30/2025 8:12 AM ESTon room airInhaled Oxygen Concentration--Gjiwqo47.4 kg (217 lb)09/07/2025 1:12 PM IOLVubsgp051.8 cm (5' 2.5 )08/30/2025 8:12 AM ESTBody Mass Index39.06 08/30/2025 8:12 AM EST Plan of Treatment DateTypeDepartmentCare Team (Latest Contact Info)Ayxmyhvsffb54/10/2026 11:00 AM ESTOffice Visit [facility] [address], [address] [place] [address] Onesimo Spaulding DO [address] [place] [address] 3 MO F/U COPD02/07/2026 2:20 PM EDTOffice Visit [facility] [address] [phone] Michi Quezada MD [address] [place] [address] Referral from Emmie with Congestive heart pbjhffu3003/07/2026 10:00 AM EDTOffice Visit [facility] Part of [facility] [address] [place] [address] Katya Stephens, AWNING HANGER - MASTER SONAR TECHNICIAN [address] [place] [address] [address] [place] [address] 6m pvrHealth MaintenanceDue DateLast DoneCommentsDepression Zcgtcs3812/06/1968 Hepatitis C glwgac5112/06/1974Diabetes eyzsob2212/06/19912962Pynntj70/17/1997Colonoscopy 2001Colorectal Cancer Ukyetj9612/06/2001FIT/FOBT: Average risk2001 Fecal-DNA (Cologuard): Average risk2001Sigmoidoscopy/CT colonography 2001Respiratory Syncytial Virus (RSV) or age 60 yrs+ (1 - Risk 60-74 years 1-dose series)2016Breast cancer cbnefh97 Annual Wellness Visit (Medicare Advantage)10/20/2024Flu vaccine (#1)05/20/2025 08/10/2024, 07/29/2024, 08/20/2023, Additional history existsCOVID-19 Vaccine ( season), 08/14/2022, 01/13/2022, Additional history existsLung Cancer Screening &/or Lsmbhlgcdj67 DTaP/Tdap/Td vaccine (2 - Td or Tdap)DEXA (modify frequency per FRAX score)Wodjabclc42/26/2022Pneumococcal 0-49 years VaccineDiscontinued 10/02/2022neumococcal 50+ years DjhhfihShpcznqhg56/14/2022hingles vaccine Vfsiewnsl36/18/2025, 04/02/2025Hepatitis A vaccineAged OutNo longer eligible based [...] complete this topic Procedures Procedure NamePriorityDate/TimeAssociated DiagnosisCommentsMEAS,POST-VOID RES,US,NON-NUSOFWLGhaucwp63/19/2025 1:35 PM EST Incomplete bladder emptying FULL PFT STUDY WITH XSMEEJTEEUMDIEYntuznl51/18/[address] LUNG SCREENING (INITIAL/ANNUAL)Mayiqqs4609/06/2025 Cigarette nicotine dependence with nicotine-induced disorder Encounter for screening for lung cancer XR ABDOMEN (KUB) (SINGLE AP VIEW)Grwbvpr9808/31/2025 11:14 AM EST Renal calculus Gross hematuria BASIC METABOLIC VAQHZGmhkxhj84/12/2025 11:08 AM EST Renal calculus Gross hematuria Mixed incontinence Incomplete bladder emptying USMAN,POST-VOID RES,US,NON-ILFGPOWOgptryp14/29/2025 10:31 AM EDT Mixed incontinence URINALYSIS WITH YVIQUDJDIWNWjwrjvc67/29/2025 10:30 AM EDT Gross hematuria Mixed incontinence CULTURE, UIXMKUaivyss86/29/2025 10:30 AM EDT Gross hematuria Mixed incontinence Incomplete bladder emptying XR ABDOMEN (KUB) (SINGLE AP VIEW)Xiqxryk0207/12/2025 10:49 AM EDT Renal calculus from Last 3 Months Results * CT LUNG CANCER SCREENING (INITIAL/ANNUAL) (09/06/2025)Anatomical Region LateralityModalityLung, ChestComputed Tomography Narrative Authorizing ProviderResult TypeUniversity Medical Center CT ORDERABLES Final Result * Full PFT Study With Bronchodilator (09/06/2025)ComponentValueRef RangeTest MethodAnalysis TimePerformed AtPathologist SignatureFVC-PreFVC PredFVC %Oqbo-VwoTHK-VkaqTGP %Hwnt-SbioSWJ0-FerBNR1 PredFEV1 %Urgd-XfdMRZ6-TcnyMPU5 %Pred-PostFEV1/FVC-PreFEV1/FVC PredFEV1/FVC %Pred-PreFEV1/FVC-PostFEV1/FVC %Pred-PostFEF 00-40-DfbJWP 25-75% PredFEF 25-75% %Pred-PreFEF 98-74-WknbQFL 25-75 Post %PredFEF 25-75 %ChangeExpiratory TimeExpiratory Wvaq-MixmDCB-WjpOGI PredPEF %Muna-DuwPZE-HzfhBLO %Pred-PostPEF %ChangeMVV-PreMVV PredMVV %Pred-Pre DLCODLCO PredDLCO %PredDLCO/VADLCO/VA PredDLCO/VA %PredVAVA PredVA %PredRawRaw PredRaw %PredGawGAW PREDGaw %PredSVCSVC PredSVC %PredTLCTLC PredTLC Pre %Pred RVRV PredRV Pre %PredICIC PredIC Pre %PredVTGVTG PredVTG %PredMIPMEP Narrative Authorizing ProviderResult TypeResult [facility] DOPFT ORDERABLESFinal Result * XR ABDOMEN (KUB) (SINGLE AP VIEW) (08/31/2025 11:14 AM EST) Only the most recent of2 resultswithin the time period is included. Anatomical RegionLateralityModalityAbdomenComputed RadiographySpecimen (Source) Anatomical Location / LateralityCollection Method / VolumeCollection Time Received Time09/02/2025 8:16 AM EST Impressions 09/02/2025 8:17 AM EST 1. No acute findings. 2. Possible punctate calcifications projecting in the region of the left renal pelvis Narrative 09/02/2025 8:17 AM EST EXAM: 1 VIEW XRAY OF THE ABDOMEN 08/31/2025 11:14:22 AM COMPARISON: 07/12/2025 CLINICAL HISTORY: Renal calculus; Gross hematuria. ORDERING SYSTEM PROVIDED HISTORY: Renal calculus; TECHNOLOGIST PROVIDED HISTORY: Stones FINDINGS: BOWEL: Nonobstructive bowel gas pattern. SOFT TISSUES: Calcified phleboliths in pelvis. Punctate calcifications projecting in the region of the left renalpelvisi. BONES: Surgical changes of the lower lumbar spine. Procedure Note Chalo Plummer MD - 09/02/2025 EXAM: 1 VIEW XRAY OF THE ABDOMEN 08/31/2025 11:14:22 AM COMPARISON: 07/12/2025 CLINICAL HISTORY: Renal calculus; Gross hematuria. ORDERING SYSTEM PROVIDED HISTORY: Renal calculus; TECHNOLOGIST PROVIDED HISTORY: Stones FINDINGS: BOWEL: Nonobstructive bowel gas pattern. SOFT TISSUES: Calcified phleboliths in pelvis. Punctate calcifications projecting in theregion of the left renal pelvisi. BONES: Surgical changes of the lower lumbar spine. IMPRESSION: 1. No acute findings. 2. Possible punctate calcifications projecting in the region of the leftrenal pelvis Authorizing ProviderResult TypeResult StatusKytomas [facility]ACARDIN[facility] DIAG[facility]AG[facility] ORDERABLESFinal Result * (ABNORMAL) Basic Metabolic Panel (08/31/2025 11:08 AM EST)ComponentValueRef RangeTest MethodAnalysis TimePerformed AtPathologist XqqfemwtvPexqll041107 - 145 mmol/L110/31/2024 11:08 AM [facility] LABPotassium4.3 3.7 - 5.3 mmol/L110/31/2024 11:08 AM [facility] Qshcuwfv16299 - 107 mmol/L110/31/2024 11:08 AM [facility] ESZDH68007 - 31 mmol/L110/31/2024 11:08 AM [facility] Anion Gap8(L)9 - 16 mmol/L110/31/2024 11:08 AM [facility] DABZveogvq530(H)74 - 99 mg/dL08/31/2025 11:08 AM [facility] RSTOJC516 - 23 mg/dL08/31/2025 11:08 AM [facility] LABCreatinine1.0(H)0.50 - 0.90 mg/dL08/31/2025 11:08 AM [facility] LABEstSolitario Filt Rate64>60 mL/min/1.12h82508/31/2025 11:08 AM [facility] LABComment: ? These results are not intended for use in patients <18 years of age. ? eGFR results are calculated without a race factor using the 2020 CKD-EPI equation. Careful clinical correlation is recommended, particularly when comparing to results calculated using previous equations. The CKD-EPI equation is less accurate in patients with extremes of muscle mass, extra-renal metabolism of creatine, excessive creatine ingestion, or following therapy that affects renal tubular secretion. BUN/Creatinine Gnbvi304 - 11:08 AM [facility] LABCalcium9.78.6 - 10.4 mg/dL08/31/2025 11:08 AM [facility] LABSpecimen (Source)Anatomical Location / LateralityCollection Method / Volume Collection TimeReceived TimeBloodBLOOD SPECIMEN / Mumftej8308/31/2025 11:08 AM EST 08/31/2025 11:09 AM EST Narrative Authorizing ProviderResult TypeResult StatusKatya Stephens AWNING HANGER - CNPCHEMISTRY ORDERABLESFinal ResultPerforming OrganizationAddressCity/State/ZIP CodePhone Number [facility] [address] [phone] * Urinalysis with Microscopic (07/18/2025 10:30 AM EDT)ComponentValueRef Range Test MethodAnalysis TimePerformed AtPathologist SignatureColor, UAYellowYellow 07/18/2025 10:30 AM [facility] LABTurbidity UAClearClear 07/18/2025 10:30 AM [facility] LABGlucose, UrNEGATIVE NEGATIVE mg/dL07/18/2025 10:30 AM [facility] Bilirubin, ZzhigQTUQIPYKSLIRZCEK23/29/2025 10:30 AM [facility] LABKetones, UrineNEGATIVENEGATIVE mg/dL07/18/2025 10:30 AM [facility] LABSpecific Adams, UA1.0151.010 - 1.6201807/18/2025 10:30 AM [facility] LABUrine HgbNEGATIVENEGATIVE 07/18/2025 10:30 AM [facility] LABpH, Urine6.55.0 - 9.0 07/18/2025 10:30 AM [facility] LABProtein, UANEGATIVE NEGATIVE mg/dL07/18/2025 10:30 AM [facility] Urobilinogen, UrineNormal0.0 - 1.0 EU/dL07/18/2025 10:30 AM [facility] LABNitrite, RchhrHGBFNYWYIEUWAMHN99/29/2025 10:30 AM [facility] LABLeukocyte Esterase, IcytbMLLDDNZENXPNUDPX26/29/2025 10:30 AM [facility] LABWBC, UA2 TO 50 - 5 /HPF07/18/2025 10:30 AM [facility] LABRBC, UA0 TO 20 - 2 /HPF07/18/2025 10:30 AM [facility] LABEpithelial Cells, UA0 TO 20 - 25 /HPF07/18/2025 10:30 AM [facility] LABSpecimen (Source) Anatomical Location / LateralityCollection Method / VolumeCollection Time Received TimeUrineURINE SPECIMEN / Bczxcgd7607/18/2025 10:30 AM EDT07/18/2025 11:57 AM EDT Narrative Authorizing ProviderResult TypeResult StatusJulie Brock Stephens AWNING HANGER - CNPURINE ORDERABLESFinal ResultPerforming OrganizationAddressCity/State/ZIP CodePhone Number [facility] [address] [id number] [phone] * Culture, Urine (07/18/2025 10:30 AM EDT)ComponentValueRef RangeTest Method Analysis TimePerformed AtPathologist SignatureSpecimen Description.CLEAN CATCH URINE07/18/2025 10:30 AM [facility] LABSpecial Requests Site: Urine07/18/2025 10:30 AM [facility] LABCultureNO SIGNIFICANT FLUMXE6207/18/2025 10:30 AM [facility] LABORATORIESSpecimen (Source) Anatomical Location / LateralityCollection Method / VolumeCollection Time Received TimeUrineURINE SPECIMEN / Rczxliz9107/18/2025 10:30 AM EDT07/18/2025 11:57 AM EDT Narrative Authorizing ProviderResult TypeResult StatusKatya Stephens AWNING HANGER - MASTER SONAR TECHNICIAN MICROBIOLOGY - GENERAL ORDERABLESFinal ResultPerforming OrganizationAddress City/State/ZIP CodePhone Number [facility] [address] [place] [address], [facility] [phone] [facility] [address] [place] [address], [facility] [phone] from Last 3 Months Insurance Advance Directives * Full Code (Latest Code Status on File) Date ActivatedDate InactivatedComments01/21/2023 8:09 AM01/21/2023 4:07 PM NameRelationshipHealthcare Agent RelationshipCommunicationLarry Covert Sr.Other Primary Decision Maker* Care Teams Team MemberRelationshipSpecialtyStart DateEnd Date Emmie Daley, AWNING HANGER - MASTER SONAR TECHNICIAN PCP - General12/12/22
--- OUTSIDE RECORDS SUMMARY | 2025-09-22 13:27 | XMS_ITS | Encounter Summary ---
Author Organization [facility] Address [address], [address] [place] [address] Care Team Providers Care Coal Washer Tender Name Role Phone Emmie Daley Rick FISH NET STRINGER - RN STAFF Primary Care Prov ider Reason for Visit * ReasonOnset DateCommentsCBC Order09/09/2025 Encounter Details DateTypeDepartmentCare Team (Latest Contact Info)Zayecvovikx03/21/2025Telephone [facility] Pulmonology [address] [place], [place] [phone] Onesimo Spaulding [address] [place], [place] [phone] CBC Order Social History Tobacco UseTypesPacks/DayYears UsedDateSmoking Tobacco: Every FitBpbtvyscdz559.9 Started: 1965Smokeless Tobacco: Never Comments:Smokes 6-8 cigs/day Alcohol UseStandard Drinks/WeekCommentsYes0 (1 standard drink = 0.6 oz pure alcohol)Beer 2-3 every 2 weeksCommentsNoSex and Gender InformationValue Date RecordedSex Assigned at BirthNot on fileLegal XfxXrfsjj30/12/2013 10:17 PM ESTGender IdentityNot on fileSexual OrientationNot on fileOccupationIndustryJob 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 on fileNot on fileNot on filedocumented as of this encounter Plan of Treatment DateTypeDepartmentCare Team (Latest Contact Info)Icsfgkjozsf58/10/2026 11:00 AM ESTOffice Visit [facility] Pul[facility] [address], [address] [place] [address] Onesimo SpauldingDO [address] [place] [address] 3 MO F/U COPD02/07/2026 2:20 PM EDTOffice Visit [facility] C[facility] Part of [address] [address] Michi Quezada MD [address] [place] [phone] Referral from Emmie with Congestive heart pgvsixy6103/07/2026 10:00 AM EDTOffice Visit [facility] UR[facility] Part of [address] [place] [phone] Katya Stephens, FISH NET STRINGER - RN STAFF [address] [place] [address] [address] [place], [place] [phone] 6m pvrdocumented as of this encounter Visit Diagnoses Not on filedocumented in this encounter Additional Health Concerns AssessmentNoted TimeA fall risk assessment has been completed for the patient 08/30/2025 8:20 AM ESTdocumented as of this encounter Care Teams Team MemberRelationshipSpecialtyStart DateEnd Date Emmie Daley, FISH NET STRINGER - RN STAFF PCP - General12/12/22documented as of this encounter
--- OUTSIDE RECORDS SUMMARY | 2025-09-22 13:27 | XMS_ITS | Clinical Summary ---
Author Organization [facility] Address [address] [place] [address] Care Team Providers Care Pleating Supervisor Name Role Phone Ruy Covarrubias MD Unavailable [phone] Allergies Active AllergyReactionsCriticalityNoted DateCommentsBee VenomAnaphylaxis 01/27/2013*Paper SdhdNzvm22/10/2013 Medications MedicationSigDispense QuantityRefillsLast FilledStart DateEnd DateStatus Respiratory Therapy Supplies (PATRICE PD) XX DANIELLE Active Tiotropium Banner Monohydrate (SPIRIVA HANDIHALER IN) take 1 Cap [...] Medical HistoryRelationNameCommentsCoronary Artery DiseaseBrother 5CABGCancer FatherleukemiaHeart FailureFatherDiabetesMotherRelationNameStatusCommentsBrother 5Cpgcv36 CABG age 59 (01/20/2013)Brother 6Hsime29 (01/20/2013)Brother 1Bzdft28 (01/20/2013)Brother 8Pftud81 (01/20/2013)Brother 5Daughter 9Anobp83 (01/20/2013) Daughter 0Qipcz98 (01/20/2013)FatherDeceased (Age 72)bgdegrxwJqvewlEuryz13 DM age 40, born with one lung (01/20/2013)SedbvdNllgq66 (01/20/2013) Social History Tobacco UseTypesPacks/DayYears UsedDateSmoking Tobacco: Every DayCigarettes0.547 Smokeless Tobacco: Never Tobacco Cessation:Ready to Q uit: No; Counseling Given: Yes Alcohol UseStandard Drinks/WeekCommentsYes2.5 (1 standard drink = 0.6 oz pure alcohol)On 01/20/2013 reports drinking 4-5 beers once a week, but several months in a row without.CommentsNoSex and Gender InformationValueDate Recorded Sex Assigned at BirthNot on fileLegal JuyKozytu38/18/2013 2:39 PM EDTGender IdentityNot on fileSexual OrientationNot on fileOccupationIndustryJob Start Date Job End DateNot on fileNot on fileNot on fileNot on file Last Filed Vital Signs Vital SignReadingTime TakenCommentsBlood Aefiliji490/5803 12:52 PM EDT Mqolm7233 12:52 PM MPYXjjbdxnfwmw90.8 ??C (98.2 ??F)01/11/2014 12:52 PM EDTRespiratory Vbhm444101/11/2014 12:52 PM EDTOxygen Xsajmxjngi42%09/20/2013 5:45 PM ESTInhaled Oxygen Concentration--Eejdje11.2 kg (185 lb 11.2 oz)01/11/2014 12:52 PM JPFDnbyka867.3 cm (5' 3.5 )09/20/2013 8:40 AM ESTBody Mass Index32.38 09/20/2013 8:40 AM EST Plan of Treatment Health MaintenanceDue DateLast DoneCommentsDEXA SCAN WNAQHGLKKJ61/17/1957 HEPATITIS C VIRUS SPTAWCBRN41/17/3359TQRAOOD16/17/1957PNEUMOCOCCAL VACCINE SERIES (1 of 2 - PCV)1975TDAP (ADULT)1975CERVICAL CANCER SCREENING ZOZANAHQYM84/17/1978LIPID LVZMAXRLI65/17/1997COLORECTAL CANCER SCREENING JZZQZZZLUV19/17/2002LUNG CANCER SCREENING BTCXLKTLBC88/17/2007RSV VACCINE (1 - Risk 50-74 years 1-dose series)2006ZOSTER (SHINGLES) VACCINE (1 of 2) 2006MAMMOGRAM SCREENING RDDNDCZKTK53/25/202310/2COVID-19 VACCINE ( season), 01/13/2022, 07/14/2021, Additional history existsINFLUENZA VACCINE (#1)HEP B VACCINEAged OutNo longer eligible based on patient's age to complete this topic Advance Directives For more information, please contact: [phone] (7:30 AM - 6PM [facility], Friday-Friday) * Full Code (Latest Code Status on File) Date ActivatedDate KobosngmrieBbauibkm90/2/2013 8:32 AM09/20/2013 8:27 PM * Full Code Date ActivatedDate InactivatedComments01/27/2013 8:12 AM01/27/2013 2:26 PM Care Teams Team MemberRelationshipSpecialtyStart DateEnd Date Ruy Covarrubias MD PCP - Referring 6Iedfryfebcrgas1/3/13
--- OUTSIDE RECORDS SUMMARY | 2025-09-22 13:27 | XMS_ITS | Encounter Summary ---
Author Organization [facility] Address [address], [address] [place] [address] Care Team Providers Care Nursing Specialist Name Role Phone Emmie Daley Rick HEARING AND SPEECH ASSISTANT - COMPOUND WORKER Primary Care Prov ider Encounter Details DateTypeDepartmentCare Team (Latest Contact Info)Apacvcfewaf29/29/2025Results Follow-Up [facility] Part of [address] [place] [address] Angel Sow, PALorenzaC [address] [place] [address] Social History Tobacco UseTypesPacks/DayYears UsedDateSmoking Tobacco: Every DayCigarettes0.5 59.9Started: 1965Smokeless Tobacco: Never Comments:Smokes 6-8 cigs/day Alcohol UseStandard Drinks/WeekCommentsYes0 (1 standard drink = 0.6 oz pure alcohol)Beer 2-3 every 2 weeksCommentsNoSex and Gender InformationValue Date RecordedSex Assigned at BirthNot on fileLegal DqlTessge16/12/2013 10:17 PM ESTGender IdentityNot on fileSexual OrientationNot on filedocumented as of this encounter Plan of Treatment DateTypeDepartmentCare Team (Latest Contact Info)Fiouxgzqmoy84/10/2026 11:00 AM ESTOffice Visit [facility] Pul[facility] [address] [place] [address] Onesimo Spaulding DO [address] [place] [address] 3 MO F/U COPD02/07/2026 2:20 PM EDTOffice Visit [facility] Part of [address] [phone] Michi Quezada MD [address] [place] [address] Referral from Emmie with Congestive heart qvhabol6103/07/2026 10:00 AM EDTOffice Visit [facility] Part of [address] [place] [phone] Katya Stephens HEARING AND SPEECH ASSISTANT - COMPOUND WORKER [address] [place] [address] [address] [place] [phone] 6m pvrdocumented as of this encounter Visit Diagnoses Not on filedocumented in this encounter Care Teams Team MemberRelationshipSpecialtyStart DateEnd Date Emmie Daley, HEARING AND SPEECH ASSISTANT - COMPOUND WORKER PCP - General12/12/22documented as of this encounter
--- OUTSIDE RECORDS SUMMARY | 2025-09-22 13:27 | XMS_ITS | Clinical Summary ---
Author Organization [facility] Address [address] [place] [address] Care Team Providers Care Supervisor Lime Name Role Phone Emmie Daley MOE Unavailable [phone] Unallocated, [facility] Provider Primary Care Provi nabeel Reid Valdez MD Unavailable Allergies Active AllergyReactionsCriticalityNoted DateCommentsAttends Briefs SmallRashLow 01/27/2013ee NnntgRradhmwslluWwsy08/10/2013 Other reaction(s): Not available AxelphnxchJwijd40/14/2023 Medications MedicationSigDispense QuantityRefillsLast FilledStart DateEnd DateStatus albuterol HFA 90 mcg/act inhaler TAKE TWO PUFFS BY MOUTH EVERY 6 HOURS LOKTLP2403/03/2023ctive EPINEPHrine (Epipen) 0.3 MG/0.3ML injection syringe USE DIRECTED FOR BEE QXAKQG9201/16/2023ctive gabapentin (Neurontin) 300 MG capsule Take 300 mg by mouth at txdmqvj4208/20/2023ctive lisinopril 10 MG tablet Take 10 mg [...] tablet Take 1 tablet by mouth at zrplnja7308/20/2023ctive Active Problems No known active problems Family [...] InformationValueDate RecordedSex Assigned at Not on fileLegal BofQuugic50/15/2023 6:55 PM EDTGender IdentityNot on fileSexual OrientationNot on file Last Filed Vital Signs Vital SignReadingTime TakenCommentsBlood Nslabauo488/80007/08/2024 12:09 PM EDT Owwcr806007/08/2024 12:09 PM EDTTemperature--Respiratory Kics225107/08/2024 12:09 PM EDTOxygen Saturation--Inhaled Oxygen Concentration--Mcgoyq29.6 kg (202 lb) 07/08/2024 12:09 PM XXUEhvdyn766.3 cm (5' 3.5 )07/08/2024 12:09 PM EDTBody Mass Index35.22007/08/2024 12:09 PM EDT Plan of Treatment Health MaintenanceDue DateLast DoneCommentsCT Xeskgngzmavc12/17/1957Colonoscopy 1956Colorectal Cancer Sozisbctz04/17/1957FIT-DNA1956FIT1956 FOBT1956 7206Iwqrnashittli22/17/2191Xxqkpgsbl22OVID-19 Vaccine ( season)503/, 01/13/2022, 07/14/2021, Additional history existsInfluenza Vaccine (#1), 07/29/2024, 08/20/2023, Additional history existsMedicare Annual Wellness (AWV)09/13/2025 09/13/2024, 08/20/2023, 07/30/2022neumococcal Vaccine: 65+ YearsCompleted 10/02/2022, 10/02/2022 Insurance Care Teams Team MemberRelationshipSpecialtyStart DateEnd Date Unallocated, [place], [address] [place] [address] [facility] - [facility] Reid Valdez MD [address] [place] [address] PCP - [facility]/10/2511 Emmie Daley CRNP Referring PhysicianNurse Practitioner07/08/24
--- NOTE | 2025-09-22 14:14 | PM.WCHP ---
Wound Care H&P: HPI History of Present Illness Narrative: Robyn is a very pleasant 69-year-old female who presents for routine nail care. She states she recently quit smoking and already feels so much better. She does admit to symptoms of claudication at times. She also has what she calls restless leg syndrome and paresthesias in her feet worse at nighttime. PFSH PFSH Social History Little interest or pleasure in doing things: not at all Feeling down, depressed, or hopeless: not at all Meds Home Medications and Allergies Home Medications ?Medication ?Instructions ?Recorded ?Confirmed ?Type diclofenac sodium 75 mg 75 mg PO Q12H 04/25/24 08/22/25 History tablet,delayed release fluoxetine 10 mg capsule 10 mg PO .QHS 04/25/24 08/22/25 History fluticasone fur. 100 mcg-umeclid 1 inh inhalation Q24H 04/25/24 08/22/25 History 62.5 mcg-vilant 25 mcg inhalat.powder (Trelegy Ellipta) gabapentin 100 mg capsule 100 mg PO Q12H 04/25/24 08/22/25 History gabapentin 300 mg capsule 300 mg PO DAILY 04/25/24 08/22/25 History levothyroxine 25 mcg tablet 25 mcg PO DAILY 04/25/24 08/22/25 History losartan 25 mg tablet 100 mg PO DAILY 04/25/24 08/22/25 History metoprolol tartrate 25 mg tablet 100 mg PO Q12H 04/25/24 08/22/25 History spironolactone 25 mg tablet 25 mg PO DAILY 04/25/24 08/22/25 History trazodone 150 mg tablet 150 mg PO .QHS 04/25/24 08/22/25 History amlodipine 10 mg tablet (Norvasc) 10 mg PO DAILY 08/22/25 08/22/25 History hydrochlorothiazide 25 mg tablet 25 mg PO DAILY #20 tabs 08/22/25 Rx tamsulosin 0.4 mg capsule (Flomax) 0.4 mg PO DAILY 08/22/25 08/22/25 History vitamin B complex-vitamin C-folic tab 08/22/25 History acid 400 mcg tablet Allergies Allergy/AdvReac Type Severity Reaction Status Date / Time adhesive tape Allergy Intermediate Blister Verified 09/06/25 11:46 bee venom protein (honey bee) Allergy Intermediate Hives Verified 09/06/25 11:46 Exam Narrative: Exam Narrative: Derm: Toenails 1 through 10 are thickened, elongated, mycotic and painful.? The toenails are diffusely incurvated. Skin is diffusely dry, thin, and atrophic.? Vascular: DP and PT pulses are nonpalpable bilaterally.? DP pulses are 1/4 bilaterally.? Capillary refill is less than 3 seconds to all toes. Digital hair is absent bilaterally. Neuro: Vibratory sensation is present bilaterally.? Achilles deep tendon reflex is 1+ bilaterally.? Protective sensation was tested with a monofilament and is present in 0/5 areas tested on the right and 3/5 areas tested on the left.? Musculoskeletal: No gross deformity.? Strength 5/5 in all planes bilaterally Assessment and Plan Assessment and Plan (1) Tinea unguium: (2) Diminished pulses in lower extremity: (3) Ingrown nail: Charlene Carlson is a pleasant 69-year-old female with history of tobacco use disorder who presents for routine nail care. Follow-up in 3 months. Acute Procedures Podiatry Nail Debridement Class B Findings Absent posterior tibial pulse: bilateral Advanced trophic changes as evidenced by any three of the following: decreased hair growth, nail changes (thickening) and skin texture (thin or shiny) Class C Findings Claudication: Yes Edema: Yes Burning: Yes Qualifies If: Qualifiers If:: A patient qualifies for nail debridement if they have: 1 class A finding (Q7) 2 class B findings (Q8) OR 1 class B & 2 class C findings in addition to a primary condition (Q9) Nail Procedure Nail Procedure Time out: Yes Nail procedure: other (Debridement of toenails 1 through 10) Number of affected nails: 10 Location (toes): left and right Procedure successful: Yes Patient tolerated procedure: well and no complications Additional comments: Toenails 1 through 10 were sharply debrided with nail nippers without incident. The nails were filed to her satisfaction.
== END 2025-09-22 13:25 | disposition home or self-care (01) ==
LOC: WC 13:25
PROVIDERS: PCP Nurse Practitioner; Visit Provider Physician Assistant
DX: B35.1 Tinea unguium (principal); M79.675 Pain in left toe(s); M79.674 Pain in right toe(s); J43.2 Centrilobular emphysema; R09.89 Other specified symptoms and signs involving the circulatory and respiratory systems; L60.0 Ingrowing nail; L60.8 Other nail disorders; B49 Unspecified mycosis
CPT/HCPCS: 11721; 36415; 85025

== ENCOUNTER 2025-10-10 10:57 | Outpatient (OUT) | payer MEDICARE, MEDICAID, SELFPAY ==
--- OUTSIDE RECORDS SUMMARY | 2024-07-01 03:30 | XMS_ITS ---
Author Organization [facility] in [place] Address [address] [place] [address] Care Team Providers Care Windrower Operator Name Role Phone Emmie Daley Primary Care Provider Unavaila Onesimo Kidd Unavailable [phone] REASON FOR VISIT 1y COPD, LDCT Encounters Encounter Location Date Provider Diagnosis Pulmonary Medicine [address] [address] 07/01/2024 Onesimo Spaulding Plan Of Treatment No Information Progress Notes * Robyn NUNEZDOB:1955 (69 yo F)Acc No.[id number]:07/01/2024 UNLOCKED PROGRESS NOTE Follow Up Patient: Karson LYNNEgiancarlo Cabrera :?CHICHO BernardoOB:1955???Age:68 Y ???Sex:FemaleDate:4Phone:[phone]:[address], [id number]:Emmie Daley Subjective: * Chief Complaints: * 1 . 1y COPD, LDCT. * Medical History: Objective: * Vitals: Assessment: Plan: * Treatment: * * Electronic signature of Onesimo Spaulding DO on 10/10/2025 at 11:05 AM ESTSign off status: PendingVisit Status:?R/S (Rescheduled) * Provider: Maday Spaulding DO Date: 0 07/01/2024 Generated for Printing/Faxing/eTransmitting on:?10/10/2025 11:05 AM EST
--- OUTSIDE RECORDS SUMMARY | 2024-09-06 05:00 | XMS_ITS ---
Author Organization [facility] Address [address] [place] [address] Care Team Providers Care Animal Technician Name Role Phone JAIRO OCHOA Primary Care Provider Unavail able Michi Drake Unavailable [phone] REASON FOR VISIT RIGHT KNEE OA Encounters Encounter Location Date Provider Diagnosis [facility] [facility] [address] [place] [address] [place] [address] 09/06/2024 Michi Drake Plan Of Treatment No Information Progress Notes * ENRIQUESARA LebronDEEDEE CabreraDOB:1955 (69 yo F)Acc No.[id number]:09/06/2024 Patient:?SARA NUNEZDEEDEE Cabrera :?Michi Drake, MDDOB:1955???Age:68 Y ???Sex:FemaleDate:09/06/2024hone:[phone]:[address], [place] [phone]:JAIRO OCHOA Subjective: * Chief Complaints: * 1 . RIGHT KNEE OA. * Medical History: Objective: * Vitals: Assessment: Plan: * Treatment: Forms: * Images: * Electronic signature of Michi Drake MD on 10/10/2025 at 11:05 AM ESTSign off status: Pending * Provider: Getachew Drake MD Date: 11/06/2023 Generated for Printing/Faxing/eTransmitting on:?10/10/2025 11:05 AM EST
--- OUTSIDE RECORDS SUMMARY | 2024-11-01 08:30 | XMS_ITS ---
Author Organization [facility] Address [address] [place] [address] Care Team Providers Care Stereoptician Name Role Phone JAIRO OCHOA Primary Care Provider Unavail able Michi Drake Unavailable [phone] aKrthik Samaniego Unavailable [phone] REASON FOR VISIT RIGHT KNEE RECHECK - CSI 08/16 Medications Medication SIG (Take, Route, Frequency, Duration) Notes Start Date End Date Status Medrol Dosepak 4 mg as directed 07/26/2024ctive Encounters Encounter Location Date Provider Diagnosis [facility] [address] [place] [address] 11/01/2024 Karthik Samaniego Plan Of Treatment No Information Progress Notes * FRANKO NUNEZDOB:1955 (69 yo F)Acc No.[id number]:11/01/2024 Patient:?ENRIQUE FRANKO Cabrera :?Karthik Samaniego, DODOB:1955???Age:68 Y ???Sex:FemaleDate:11/01/2024Phone:[phone]:[address], [place] [id number]:JAIRO OCHOA Subjective: * Chief Complaints: * 1 . RIGHT KNEE RECHECK - CSI 08/16. * Medical History: * Medications: T aking Medrol Dosepak 4 mg tablet as directed Objective: * Vitals: Assessment: Plan: * Treatment: Forms: * Images: * Electronic signature of Karthik Samaniego DO on 10/10/2025 at 11:05 AM ESTSign off status: Pending * Provider: Eusebia Samaniego, Date: 0 11/01/2024 Generated for Printing/Faxing/eTransmitting on:?10/10/2025 11:05 AM EST
--- OUTSIDE RECORDS SUMMARY | 2025-06-29 03:00 | XMS_ITS ---
Author Organization [facility] in [place] Address [address] [place] [address] Care Team Providers Care Field Marketing Director Name Role Phone Emmie Daley Primary Care Provider Unavaila Onesimo Kidd Unavailable [phone] REASON FOR VISIT 1 Year F/U Encounters Encounter Location Date Provider Diagnosis Pulmonary Medicine [address] [address] 06/29/2025 Onesimo Spaulding Plan Of Treatment No Information Progress Notes * Robyn NUNEZDOB:1955 (69 yo F)Acc No.[id number]:06/29/2025 UNLOCKED PROGRESS NOTE Follow Up Patient: Karson LYNNEgiancarlo Cabrera :?Onesimo Spaulding DODOB:1955???Age:69 Y ???Sex:FemaleDate:06/29/2025Phone:[phone]:[address], [id number]:Emmie Daley Subjective: * Chief Complaints: * 1 . 1 Year F/U. * Medical History: Objective: * Vitals: Assessment: Plan: * Treatment: * * Electronic signature of Onesimo Spaulding DO on 10/10/2025 at 11:03 AM ESTSign off status: PendingVisit Status:?OFF CANC (OFFICE CANCEL) * Provider: Maday Spaulding DO Date: 0 06/29/2025 Generated for Printing/Faxing/eTransmitting on:?10/10/2025 11:03 AM EST
--- OUTSIDE RECORDS SUMMARY | 2025-10-10 11:03 | XMS_ITS | Patient Health Record ---
Author Organization [facility] es Address [address] [facility] [place] [address] Care Team Providers Care Ad Clerk Name Role Phone Emmie Daley Primary Care Provider [phone] Allergies Allergen (clinical drug ingredient) Drug/Non Drug Allergy documented on EMR Reaction Allergy Type Onset Date Status bee pollen Bee Pollen swelling Drug Allergy ActivelisinoprilLisinoprilcoughDrug AllergyActiveTaperashAllergyActive Reason For Referral No Information Medications Medication SIG (Take, Route, Frequency, Duration) Notes Start Date End Date Status Gabapentin 100 MG Capsule 1 capsule Oral twice a day; Duration: 90 days ActiveLevothyroxine Sodium 25 MCG Tablet1 tablet Oral Once a day; Duration: 90 daysActivetraMADol HCl 50 MG Tablet1 tablet as needed Orally every 12 hours; Duration: 30 days5ActiveFlomaxActiveDiclofenac Sodium 75 MG Tablet Delayed Release1 tablet Orally Twice a day; Duration: 90 daysActiveVitamin B Complex-C - Capsuleas directed [id number] Sulfate HFA 108 (90 Base) MCG/ACT Aerosol SolutionINHALE 2 PUFFS BY MOUTH EVERY 4 HOURS NEEDED FOR SHORTNESS OF BREATH Inhalation; Duration: 90 DaysActiveFLUoxetine HCl 10 MG Capsule1 capsule Orally Once a day; Duration: 90 daysActiveSpironolactone 25 MG Tablet1 tablet Orally Once a day; Duration: 90 daysActivetraZODone HCl 150 MG Tablet1 tablet at bedtime Orally Once a day; Duration: 90 days05/25/2025 ActiveLosartan Potassium 100 MG Tablet1 tablet Orally Once a day; Duration: 90 daysActivehydroCHLOROthiazide 25 MG Tablet1 tablet in the morning Orally Once a day; Duration: 90 days/03/2026ActiveNystatin [id number] UNIT/GM Powder1 application Externally Twice a day; Duration: 30 days/ctive Gabapentin 300 MG Capsule1 capsule Oral nightly; Duration: 90 daysActiveTrelegy Ellipta 100-62.5-25 MCG/ACT Aerosol Powder Breath Activated1 puff Inhalation Once a day; Duration: 90 daysActive Social History Tobacco Use: Social History Observation Description Date Details (start date - stop date) Former Smoker NA - NA Sex Assigned At [...] a drink containing alcohol in the past year?Yes? How often did you have a drink containing alcohol in the past year?Monthly or less (1 point)? How many drinks did you have on a typical day when you were drinking in the past year?3 or 4 drinks (1 point)? How often did you have six or more drinks on one occasion in the past year?Never (0 point)Ofqmjy9AmgnlxnujidavgVbvfbqyhPxixuhi Use:Social InfoQuestionAnswerNotes Tobacco Control (Standard)Tobacco use:Former smoker? How long has it been since you last smoked?Less than 1 month Problems Problem Type SNOMED Code ICD Code Onset Dates Problem Status W/U Status Risk Notes Problem Tobacco user (398123519) Nicotin e dependence, unspecified, uncomplicated (F17.200) ActiveconfirmedProblemDepression (261865693)Depression (F32.9)Activeconfirmed ProblemAcquired hypothyroidism (315314982)Acquired hypothyroidism (E03.9)Active confirmedProblemLumbosacral spondylosis without myelopathy (58279843)Spondylosis without myelopathy or radiculopathy, lumbar region (M47.816)08/20/2023ctive confirmedProblemFibromyalgia (284398386)Fibromyalgia (M79.7)11/11/2022ctive confirmedProblemInsomnia (889434383)Insomnia (G47.00)02/06/2012ctiveconfirmed ProblemAtypical chest pain (894049558)Atypical chest pain (R07.89)05/23/2023 ActiveconfirmedProblemIntermittent palpitations (940935301)Intermittent palpitations (R00.2)05/23/2023ctiveconfirmedProblemAlcohol dependence (18726613)Uncomplicated alcohol dependence (F10.20)05/23/2023ctiveconfirmed ProblemAttention deficit disorder (83277776)ADD (attention deficit disorder) (F98.8)02/06/2012ctiveconfirmedProblemChronic pain syndrome (429857841)Chronic pain disorder (G89.4)11/11/2022ctiveconfirmedProblemEssential hypertension (88596616)Benign essential HTN (I10)05/23/2023ctiveconfirmedProblemArthritis of left knee (6173193018251500)Arthritis of left knee (M17.12)11/11/2022ctive confirmedProblemHistory of malignant neoplasm of cervix (759409737)History of cervical cancer (Z85.41)01/20/2013ctiveconfirmedProblemInternal derangement of left knee (02424235384110475)Internal derangement of left knee (M23.92) 11/11/2022ctiveconfirmedProblemHearing loss (72728923)Deafness in left ear (H91.92)01/20/2013ctiveconfirmedProblemGraves' disease (419423942)Graves' disease (E05.00)04/01/2022ctiveconfirmedProblemBone cyst (01356387)Bone cyst (M85.60)01/20/2013ctiveconfirmedProblemCervical spondylosis without myelopathy (198516500)Cervical spondylosis without myelopathy (M47.812)08/20/2023ctive confirmedProblemMitral valve regurgitation (69813872)Mitral valve regurgitation (I34.0)04/01/2022ctiveconfirmedProblemChondromalacia of patella (25462254) Chondromalacia patellae of left knee (M22.42)11/11/2022ctiveconfirmedProblem Chronic bronchitis with emphysema (318115592)Chronic bronchitis with emphysema (J44.89)01/21/2013ctiveconfirmedProblemLumbar post-laminectomy syndrome (054701924)Lumbar post-laminectomy syndrome (M96.1)11/11/2022ctiveconfirmed ProblemRenal calculus (91289936)Renal calculus (N20.0)01/20/2023ctiveconfirmed ProblemSensorineural hearing loss of left ear with normal hearing on right side (disorder) (6180798294)Sensorineural hearing loss (SNHL) of left ear with unrestricted hearing of right ear (H90.42)11/11/2022ctiveconfirmed Vital Signs Heart Rate 58 /min 09/23/2025 Bvefonjjzec32.4 degrees Wyvmhyeqtt53/05/1370Ktqhqzmu04 %09/23/2025lood pressure nerlwftut06 mm Hg09/23/20252728Uavwlf46.5 in09/23/2025lood pressure uosvymhg232 mm Hg09/23/20258348Xsalyw575.4 lbs111/24/2024BMI38.59 kg/m209/23/2025 Encounters Encounter Location Date Provider Diagnosis [facility] [address] [place] [address] 07/26/2025 [facility] [place] [address]/16/2025 [facility] [place] [address]Valerie CastilloCandida infection B37.9[facility] [place] [address] [place] [address]/04/2025 Emmie CastilloBenign essential HTN I10[facility] [place] [address]/03/2025Valerie CastilloFibromyalgia M79.7 ; Insomnia G47.00 ; Benign essential HTN I10 ; Chronic bronchitis with jgjxtqbjjY89.89 ; Acquired hypothyroidism E03.9 ; Depression F32.9 and Nicotine dependence, unspecified, uncomplicated F17.[address] [address] 05/30/2025Valerie CastilloBenign essential HTN I10 and Nicotine dependence, unspecified, uncomplicated F17.200S [address] [address]/05/2025Valerie CastilloBenign essential HTN I10 ; Nicotine dependence, unspecified, uncomplicated F17.200 ; Leg edema R60.0 ; Hip pain M25.559 and Fibromyalgia M79.[address] [address] 08/05/2025Valerie CastilloBenign essential HTN I10 and Estrellita infection B37.[address] [address]/05/2025Valerie Daley Fibromyalgia M79.7 ; Benign essential HTN I10 ; Acquired hypothyroidism E03.9 ; Insomnia G47.00 andDepression F32.9 Assessments Encounter Date Diagnosis (ICD Code) Assessment Notes Treatment Notes Treatment Clinical Notes Section Notes 08/23/2025 Benign essential HTN (ICD-10 - I 10) 09/23/2025Fibromyalgia (ICD-10 - M79.7) Patient voices fibromyalgia pain is increased due to cold weather. We did discuss prednisone burst.She has declines today. Request refill of tramadol 50 mg oral every 12 hours PRN Continue gabapentin and diclofenac. 07/27/2025enign essential HTN (ICD-10 - I10)Blood pressure has [...] 150 mg oral daily for 10 days. 08/05/2025eni essential HTN (ICD-10 - I10) Blood pressure is 155/83. Increase metoprolol to 100 mg oral twice daily Was previously on amlodipine but discontinued due to lower leg swelling Continue to monitor blood pressure at home. Please call the office if blood pressure remains above 140 systollic and 90 diastolic. 08/08/2025andida infection (ICD-10 - B37.9)05/25/2025Fibromyalgia (ICD-10 - M79.7)States she does have flare up of her fibromyalgia pain. On rare occassion, she does need to take tramadol for the overall pain. Is taking gabpentin 100 mg oral in the AM and afternoon, 300 mg at HS. No current exacerbation of pain at this time. Reorder tramadol. OAR[place] was reviewed.05/30/2025eni essential HTN (ICD-10 - I10)Blood pressure has significantly redues. Was 184/83 last week. Is 133/71.Conitnue amlodpine 10 mg oral daily, losartan 100 mg oral daily, metoprolol tartrate 25 mg oral twice daily and tnkyolxhpldyir18 mg oral daily. 09/23/2025eni essential HTN (ICD-10 - I10) Blood pressure 140/72 Continue losartan 100 mg oral dailyi HCTZ 25 mg oral daily She was discontinue metoprolol by ER due to bradycardia Prevoiusly took amolodipine but developed lower leg swelling. Was discontinued. 05/30/2025Nicotine dependence, unspecified, uncomplicated (ICD-10 - F17.200) Dsicussed smoking cessation today, patient is not interested at this time. 07/27/2025Leg edema (ICD-10 - R60.0)Bilateral leg edema of lower extremities. Non-pitting. Was recently started on amlodipine. Suspect is the cause of her leg swelling. Discontinue amlodipine.09/23/2025quired hypothyroidism (ICD-10 - E03.9)07/27/2025Nicotine dependence, unspecified, uncomplicated (ICD-10 - F17.200)Smoking cessation discussed. She is not interested at this time. 05/25/2025Insomnia (ICD-10 - G47.00)Sleeping well with trazodone 150 [...] 25 mg oral daily. Recheck in one week.09/23/2025 Insomnia (ICD-10 - G47.00)07/27/2025Hip pain (ICD-10 - M25.559)09/23/2025 Depression (ICD-10 - F32.9) Patient reports moods are stable. Continue fluoxetine 10 mg oral daily. Depression scoring is zero today 05/25/2025hronic bronchitis with emphysema (ICD-10 - J44.89)Denies current exacerbation of COPD. She still continues to smoke. We discussed cessation today, she is not interested. Continue Trelegy as directed. She is monitored by pulmonology, Dr. Spaulding.07/27/2025Fibromyalgia (ICD-10 - M79.7)Reviewed OARRS. No discrepency. Refill Tramadol.5Acquired hypothyroidism (ICD-10 - E03.9) Continue levothyroxine 25 mcg oral daily05/25/2025Depression (ICD-10 - F32.9) Patient reports her moods are stable. Will continue fluoxetine 10 mg oral daily 05/25/2025Nicotine dependence, unspecified, uncomplicated (ICD-10 - F17.200) Discussed smoking cessation today. She is not interested at this time.05/25/2025 OtherBody Mass Index: Care Instructions material was mwvkcej0305/30/2025OtherBody Mass Index: Care Instructions material was yetffbk0207/27/2025OtherBody Mass Index: Care Instructions material was kpvfmhz5909/23/2025OtherBody Mass Index: Care Instructions material was printed Plan Of Treatment Next Appt Details Provider Name:Emmie doe, 01/23/2026 10:00:00 AM, [address] [place], [address], Insurance Providers Payer Name Payer Address Payer Phone Subscriber Number Group Number Insured Name Patient Relationship to Insured Coverage Start Date Coverage End Date [facility] [employer] [address] [place] [address] [id number] Pilar NUNEZ - patient is the insuredSecondary UHC [place] MedicaidPO [address] [place] [id number], KARENSelf - patient is the insured.Transport [facility] wrapPO [address] [place] [phone] [id number], KARENSelf - patient is the insured Medical (General) History Medical History History ICD Code spondylosis fibromyalgiaalcohol dependancyADDgrave's diseasearthritis of left kneeHTN cervical cancerdeafness left earSurgical History Surgery Date(Month/Year) foot surgery right foot 2022 reconstructive surgery right foot 2024 Hospitalization History Reason Date(Month/Year) see surgeries
--- OUTSIDE RECORDS SUMMARY | 2025-10-10 11:03 | XMS_ITS | Clinical Summary ---
Author Organization [facility] Address [address], [address] [place] [address] Care Team Providers Care Herd Tester Name Role Phone DaleyAliciaEmmie Rick IBM MAINFRAME SYSTEMS PROGRAMMER - PURCHASING DEPARTMENT CLERK Primary Care Prov ider Allergies Active AllergyReactionsCriticalityNoted DateCommentsAdhesive TapeRashLow 01/27/2013ee CceugRcsqkljzasuPjkm50/16/6419CniolbxjghAwsitctaUxh84/18/2025 Diarrhea and increased frequency with Flomax SxcshpnfnfAeshaHriz71/14/2023 Medications MedicationSigDispense QuantityRefillsLast FilledStart DateEnd DateStatus hydrocodone-acetaminophen [...] tablet TAKE 1 TABLET BY MOUTH AT QJIYDNH2110/31/2022ctive spironolactone (ALDACTONE) 25 MG tablet Take 1 tablet by mouth daily 30 tablet 11005/23/2023ctive diclofenac (VOLTAREN) 75 MG EC tablet Take 1 tablet by mouth 2 times daily5Active FLUoxetine (PROZAC) 10 MG capsule Take 1 capsule by mouth daily05/25/2025tive amLODIPine (NORVASC) 10 MG tablet Take 1 tablet by mouth dailyActive levothyroxine (SYNTHROID) 25 MCG tablet Take 1 tablet by mouth daily07/11/2025tive hydroCHLOROthiazide (HYDRODIURIL) 25 MG tablet Take 1 tablet by mouth daily5Active losartan (COZAAR) 100 MG tablet Take 1 tablet by mouth daily5Active KLAYESTA 224703 UNIT/GM powder Apply 1 g topically 2 times daily APPLY TO AFFECTED AREA5Active traMADol (ULTRAM) 50 MG tablet Take 1 tablet by mouth every 8 hours as needed.5Active fluconazole (DIFLUCAN) 150 MG tablet Take 1 tablet by mouth daily5Active puitvgwroaj-spnvlvkzh-zhhmsx (TRELEGY ELLIPTA) 100-62.5-25 MCG/ACT AEPB inhaler Indications:Centrilobular [...] capsule by mouth every evening 90 capsule Discontinued(Side effects) Active Problems ProblemNoted DateDiagnosed DateLong term (current) [...] symptoms are likely pulmonary-related. She follows with [facility] Cardiology. Plan: -Begin paperwork for Ohtuvayre -CBC -PFT (has been >4 years since last done) -Work on smoking cessation A betq-wq-olco encounter was performed with the patient today [...] worse. Orders: CBC with Auto Differential; Future gnydmwwskhv-fqrixuhil-lbejba (TRELEGY ELLIPTA) 100-62.5-25 MCG/ACT AEPB inhaler; Inhale [...] look to see if there were any Gobblerube videos. She said she did not look into anything online. I recommended she broaden her search. There may be programs in a larger market such as [facility], so she may need to travel. She [...] screening. Resolved Problems ProblemNoted DateDiagnosed DateResolved DateRenal uiknghlf24 Czcybvsu14DD (attention deficit disorder) Tobacco abuse Encounters DateTypeDepartmentCare OvqzXbzjpmlajkm56/16/2025Telephone [facility] Part of [address] [place] [address] Angel Sow PA-C medication qfvdwmv2509/22/2025Orders Only [facility]mon[facility] [address] [place] [address] Jasson Onesimo, DO 09/22/2025Orders Only [facility] [address] [place] [address] Dennis Myers MA Centrilobular foxyiuvfs18/21/2025Telephone [facility] [address] [place] [address] Jasson Onesimo, DO CBC Order09/09/2025bstract [facility] [address] [place] [address] Samsa Onesimo, DO 09/09/2025Orders Only [facility] [address] [place] [address] Dennis Myers MA Centrilobular spqjjszif77/20/2025bstract [facility] [address], [address] [place] [address] StanleyOnesimo, DO 09/08/2025Orders Only [facility] [place] Pulmonology [address], [address] [place] [address] Dennis Myers MA Cigarette nicotine dependence with nicotine-induced disorder; Encounter for screening for lung gztbyg5509/07/2025 1:15 PM ESTOffice Visit [facility] Part of [address] [place] [address] Angel Sow PA-C Renal calculus (Primary Dx); Gross hematuria; Mixed incontinence; Incomplete bladder /18/2025bstract [facility] Pulmonology [address], [address] [place] [address] Onesimo Spaulding DO 09/05/2025bstract [facility] Pulmonology [address] [place] [address] Onesimo Spaulding, 08/31/2025 10:59 AM EST - 09/02/2025 11:[address] [facility] [address] [place] [address] Renal calculus; Gross hematuria Discharge Disposition: Home or Self Care08/31/2025 10:58 AM ESTHospital Encounter [facility] [address] [place] [address] Renal calculus; Gross hematuria; Mixed incontinence; Incomplete bladder emptying Discharge Disposition: Home or Self Care08/30/2025 8:00 AM ESTOffice Visit [facility] [address] [facility] [place] [address] Onesimo Spaulding, Centrilobular emphysema (Primary Dx); Multiple pulmonary nodules; Cigarette nicotine dependence with nicotine-induced disorder; 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; Encounter for screening for lung cancer; Class 2 obesity without serious comorbidity with body mass index (BMI) of 38.0 to 38.9 in adult, unspecified obesity type07/29/2025bstract [facility] [address] [place] [address] Onesimo Spaulding DO 07/19/2025Results Follow-Up [facility] Part of [address] [place] [address] Katya Stephens, NADEEM - PURCHASING DEPARTMENT CLERK Gatgtmd6507/18/2025 11:18 AM EDT - 07/18/2025 11:59 PM EDTHospital Encounter [facility] [address] [place] [address] Gross hematuria; Mixed incontinence; Incomplete bladder emptying Discharge Disposition: Home or Self Care07/18/2025 10:00 AM EDTOffice Visit [facility] Part [address] [place] [address] Angel Sow PA-C Incomplete bladder emptying (Primary Dx); Renal calculus; Gross hematuria; Mixed incontinence; Congestive heart failure, unspecified HF chronicity, unspecified heart failure type (HCC)07/18/2025Results Follow-Up [facility] Part [address] [place] [address] Angel Sow PA-C 07/12/2025 10:38 AM EDT - 07/14/2025 11:[address] [facility] [address] [place], [place] [id number] Renal calculus Discharge Disposition: Home or Self Carefrom Last 3 Months Immunizations ImmunizationAdministration DatesNext DueCOVID-19, SPIKEVAX (Moderna), (age 12y+), IM, 50mcg/0.5mL07/29/2024Influenza, FLUAD, (age 65 y+), IM, Quadv, 0.5mL 08/20/2023,07/30/2022Influenza, FLUAD, (age 65 y+), IM, Trivalent PF, 0.5mL 08/10/2024Influenza, FLUZONE High Dose, (age 65 y+), IM, Trivalent PF, 0.5mL 4Pneumococcal, PCV20, PREVNAR 20, (age 6w+), IM, 0.5mL10/02/2022TDaP, ADACEL (age 10y-64y), BOOSTRIX (age 10y+), IM, 0.5mL04/02/2025Zoster Recombinant (Shingrix)07/07/2025,04/02/2025 Family History Medical HistoryRelationNameCommentsCancerBrotherCancerFatherHeart FailureFather HypertensionFatherCancerMotherDiabetes type 2MotherHeart DiseaseMother HypertensionMotherCancerOtherLeukemia, liver cancer, lung cancer, bladder cancer OtherOtherCHFRelationNameStatusCommentsBrotherFatherMotherOther Social History Tobacco UseTypesPacks/DayYears UsedDateSmoking Tobacco: Every JwpZtrptczmjy534 Started: 1964Smokeless Tobacco: Never Tobacco Cessation:Ready to Q uit: Not Asked; Counseling Given: No Comments:Smokes 6-8 cigs/day Alcohol UseStandard Drinks/WeekCommentsYes0 (1 standard drink = 0.6 oz pure alcohol)Beer 2-3 every 2 weeksCommentsNoSex and Gender InformationValue Date RecordedSex Assigned at BirthNot on fileLegal QzvWfewmu71/12/2013 10:17 PM ESTGender IdentityNot on fileSexual OrientationNot on fileOccupationIndustryJob Start 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 on fileNot on fileNot on file Last Filed Vital Signs Vital SignReadingTime TakenCommentsBlood Ojaqjfqr656/7609/07/2025 1:12 PM EST Zzqzl819609/07/2025 1:12 PM LNJRglnfqerdqu42.2 ??C (97.1 ??F)09/07/2025 1:12 PM ESTRespiratory Dgdu040610/30/2024 8:12 AM ESTOxygen Vpuqzsproy07%08/30/2025 8:12 AM ESTon room airInhaled Oxygen Concentration--Mmtfgb63.4 kg (217 lb)09/07/2025 1:12 PM GRRJkvfad011.8 cm (5' 2.5 )08/30/2025 8:12 AM ESTBody Mass Index39.06 08/30/2025 8:12 AM EST Plan of Treatment DateTypeDepartmentCare Team (Latest Contact Info)Zbrtbybozmm73/05/2026 9:30 AM ESTOffice Visit [facility] Part of [address] [place] [address] Katya Stephens, [employer] MAINFRAME SYSTEMS PROGRAMMER - PURCHASING DEPARTMENT CLERK [address] [place] [address] [address] [place] [address] 1-2m /fu11/29/2025 11:00 AM ESTOffice Visit [facility]ology [address], [address] [place] [address] Onesimo Spaulding DO [address] [place] [address] 3 [place] F/U COPD02/07/2026 2:20 PM EDTOffice Visit [facility] Part of [address] [address] Michi Quezada MD [address] [place] [address] Referral from Emmie with Congestive heart popgwtk4303/07/2026 10:00 AM EDTOffice Visit [facility] Part of [address] [place] [address] Katya Stephens, [employer] MAINFRAME SYSTEMS PROGRAMMER - PURCHASING DEPARTMENT CLERK [address] [place] [address] [address] [place] [id number] 6m pvrHealth MaintenanceDue DateLast DoneCommentsDepression Hguqnr9612/06/1968 Hepatitis C zdzhui5312/06/1974Diabetes kmbwkr1412/06/19911619Pgziym47/17/1997Colonoscopy 2001Colorectal Cancer Ykcjir0612/06/2001FIT/FOBT: Average risk2001 Fecal-DNA (Cologuard): Average risk2001Sigmoidoscopy/CT colonography 2001Respiratory Syncytial Virus (RSV) or age 60 yrs+ (1 - Risk 60-74 years 1-dose series)2016Breast cancer gljtpa88 Annual Wellness Visit (Medicare Advantage)10/20/2024Flu vaccine (#1)05/20/2025 08/10/2024, 07/29/2024, 08/20/2023, Additional history existsCOVID-19 Vaccine ( season), 08/14/2022, 01/13/2022, Additional history existsLung Cancer Screening &/or Ejaxafpczc81/18/50076311/06/2024 DTaP/Tdap/Td vaccine (2 - Td or Tdap)DEXA (modify frequency per FRAX score)Rcyyezczs67/26/2022Pneumococcal 0-49 years VaccineDiscontinued 2Pneumococcal 50+ years WdufcsrZyrkgpyvm77/14/2022hingles vaccine Fgdzlrxri95/18/2025, 04/02/2025Hepatitis A vaccineAged OutNo longer eligible based [...] to complete this topic Procedures Procedure NamePriorityDate/TimeAssociated DiagnosisCommentsCBC WITH AUTO NLDMWKPHWXKXFxlwlah24/04/2025 USMAN,POST-VOID RES,US,NON-ORYNLLNNadfmsr87/19/2025 1:35 PM EST Incomplete bladder emptying FULL PFT STUDY WITH JXUEMHTIFPOGUIUrqefod61/18/[address] LUNG SCREENING (INITIAL/ANNUAL)Uajbxsf3809/06/2025 Cigarette nicotine dependence with nicotine-induced disorder Encounter for screening for lung cancer XR ABDOMEN (KUB) (SINGLE AP VIEW)Shwhrrb9208/31/2025 11:14 AM EST Renal calculus Gross hematuria BASIC METABOLIC RYXBTUplrwwe90/12/2025 11:08 AM EST Renal calculus Gross hematuria Mixed incontinence Incomplete bladder emptying USMAN,POST-VOID RES,US,NON-BYADUPHWbbmhnh17/29/2025 10:31 AM EDT Mixed incontinence URINALYSIS WITH LPEGVZMUOLESizhokd06/29/2025 10:30 AM EDT Gross hematuria Mixed incontinence CULTURE, XCHMIKgjeogv99/29/2025 10:30 AM EDT Gross hematuria Mixed incontinence Incomplete bladder emptying XR ABDOMEN (KUB) (SINGLE AP VIEW)Ucoucmq7207/12/2025 10:49 AM EDT Renal calculus from Last 3 Months Results * CBC with Auto Differential (09/22/2025)ComponentValueRef RangeTest Method Analysis TimePerformed AtPathologist SignatureWBC7.310^3/mLRBC4.9910^6/??L Bcqfqdkpxv41.712.0 - 16.0 g/gHHpyeqjhplu30.036 - 46 %MCV88.4xROPH98.5pgMCHC 33.4g/zRXknxbnrqz549P/??LRDW13.0%FOJ837kIOzzzumtiupu %55.9%Lymphocytes %31.2% Monocytes %9.5%Eosinophils %2.5%Basophils %0.8%Neutrophils Absolute4.1/??L Lymphocytes Absolute2.3/??LMonocytes Absolute0.7/??LEosinophils Absolute0.2 /??LBasophils Absolute0.1/??LSpecimen (Source)Anatomical Location / Laterality Collection Method / VolumeCollection TimeReceived TimeBloodBLOOD SPECIMEN / Iduxsbs6209/22/2025 Narrative Authorizing ProviderResult TypeResult [facility] DOHEMATOLOGY ORDERABLES Edited Result - Final * CT LUNG CANCER SCREENING (INITIAL/ANNUAL) (09/06/2025)Anatomical Region LateralityModalityLung, ChestComputed Tomography Narrative Authorizing ProviderResult TypeResult [facility] CT ORDERABLES Final Result * Full PFT Study With Bronchodilator (09/06/2025)ComponentValueRef RangeTest MethodAnalysis TimePerformed AtPathologist SignatureFVC-PreFVC PredFVC %Hbyl-AykODZ-YmevHLI %Dqrf-ZvrlFGO9-OvtFGV1 PredFEV1 %Xskx-LenBJY9-YwlrLZQ6 %Pred-PostFEV1/FVC-PreFEV1/FVC PredFEV1/FVC %Pred-PreFEV1/FVC-PostFEV1/FVC %Pred-PostFEF 93-97-BthLBC 25-75% PredFEF 25-75% %Pred-PreFEF 12-88-JljqIUF 25-75 Post %PredFEF 25-75 %ChangeExpiratory TimeExpiratory Iaal-KdiwYAA-OyrDKH PredPEF %Hqlk-XdsALS-LpjxKTF %Pred-PostPEF %ChangeMVV-PreMVV PredMVV %Pred-Pre DLCODLCO PredDLCO %PredDLCO/VADLCO/VA PredDLCO/VA %PredVAVA PredVA %PredRawRaw PredRaw %PredGawGAW PREDGaw %PredSVCSVC PredSVC %PredTLCTLC PredTLC Pre %Pred RVRV PredRV Pre %PredICIC PredIC Pre %PredVTGVTG PredVTG %PredMIPMEP Narrative Authorizing ProviderResult TypeResult StatusNathan [facility] ORDERABLESFinal Result * XR ABDOMEN (KUB) (SINGLE [...] of the leftrenal pelvis Authorizing ProviderResult TypeResult StatusAngel [facility] DI[facility] ORDERABLESFinal Result * (ABNORMAL) Basic Metabolic Panel (08/31/2025 11:08 AM EST)ComponentValueRef RangeTest MethodAnalysis TimePerformed AtPathologist RwxyxpcdzMmdcjb841725 - 145 mmol/L110/31/2024 11:08 AM [facility] LABPotassium4.3 3.7 - 5.3 mmol/L110/31/2024 11:08 AM [facility] Fispczzz90578 - 107 mmol/L110/31/2024 11:08 AM [facility] ANGNE37861 - 31 mmol/L110/31/2024 11:08 AM [facility] Anion Gap8(L)9 - 16 mmol/L110/31/2024 11:08 AM [facility] NWMTdpxdie141(H)74 - 99 mg/dL08/31/2025 11:08 AM [facility] TFQABG810 - 23 mg/dL08/31/2025 11:08 AM [facility] LABCreatinine1.0(H)0.50 - 0.90 mg/dL08/31/2025 11:08 AM [facility] LABEst, Glom Filt Rate64>60 mL/min/1.46c02508/31/2025 11:08 AM [facility] LABComment: ? These results are not [...] therapy that affects renal tubular secretion. BUN/Creatinine Patlq243 - 11:08 AM [facility] LABCalcium9.78.6 - 10.4 mg/dL08/31/2025 11:08 AM [facility] LABSpecimen (Source)Anatomical Location / LateralityCollection Method / Volume Collection TimeReceived TimeBloodBLOOD SPECIMEN / Whndhgu1108/31/2025 11:08 AM EST 08/31/2025 11:09 AM EST Narrative Authorizing ProviderResult TypeResult StatusJucarlos Stephens [employer] MAINFRAME SYSTEMS PROGRAMMER - CNPCHEMISTRY ORDERABLESFinal ResultPerforming OrganizationAddressCity/State/ZIP CodePhone Number [facility] [address] [phone] * Urinalysis with Microscopic (07/18/2025 10:30 AM EDT)ComponentValueRef Range Test MethodAnalysis TimePerformed AtPathologist SignatureColor, UAYellowYellow 07/18/2025 10:30 AM [facility] LABTurbidity UAClearClear 07/18/2025 10:30 AM [facility] LABGlucose, UrNEGATIVE NEGATIVE mg/dL07/18/2025 10:30 AM [facility] Bilirubin, KgyqvSHCBGLJXSIOIVVSW52/29/2025 10:30 AM [facility] LABKetones, UrineNEGATIVENEGATIVE mg/dL07/18/2025 10:30 AM [facility] LABSpecific [place], UA1.0151.010 - 1.6536107/18/2025 10:30 AM [facility] LABUrine HgbNEGATIVENEGATIVE 07/18/2025 10:30 AM [facility] LABpH, Urine6.55.0 - 9.0 07/18/2025 10:30 AM [facility] LABProtein, UANEGATIVE NEGATIVE mg/dL07/18/2025 10:30 AM [facility] Urobilinogen, UrineNormal0.0 - 1.0 EU/dL07/18/2025 10:30 AM [facility] LABNitrite, BdjdeTKSIOKGVTLSMVTNU62/29/2025 10:30 AM [facility] LABLeukocyte Esterase, IwzbmDMJJSHNEHSQTMZGL81/29/2025 10:30 AM [facility] LABWBC, UA2 TO 50 - 5 /HPF07/18/2025 10:30 AM [facility] LABRBC, UA0 TO 20 - 2 /HPF07/18/2025 10:30 AM [facility] LABEpithelial Cells, UA0 TO 20 - 25 /HPF07/18/2025 10:30 AM [facility] LABSpecimen (Source) Anatomical Location / LateralityCollection Method / VolumeCollection Time Received TimeUrineURINE SPECIMEN / Egakygk0807/18/2025 10:30 AM EDT07/18/2025 11:57 AM EDT Narrative Authorizing ProviderResult TypeResult StatusKatya Stephens APRN - CNPURINE ORDERABLESFinal ResultPerforming OrganizationAddressCity/State/ZIP CodePhone Number [facility] [address] [place] [address] * Culture, Urine (07/18/2025 10:30 AM EDT)ComponentValueRef RangeTest Method Analysis TimePerformed AtPathologist SignatureSpecimen Description.CLEAN CATCH URINE07/18/2025 10:30 AM [facility] LABSpecial Requests Site: Urine07/18/2025 10:30 AM [facility] LABCultureNO SIGNIFICANT DHGSXV1007/18/2025 10:30 AM [facility] LABORATORIESSpecimen (Source) Anatomical Location / LateralityCollection Method / VolumeCollection Time Received TimeUrineURINE SPECIMEN / Sqjfazy5107/18/2025 10:30 AM EDT07/18/2025 11:57 AM EDT Narrative Authorizing ProviderResult TypeResult StatusKatya Stephens [employer] MAINFRAME SYSTEMS PROGRAMMER - PURCHASING DEPARTMENT CLERK MICROBIOLOGY - GENERAL ORDERABLESFinal ResultPerforming OrganizationAddress City/State/ZIP CodePhone Number [facility] [address] [place] [address], [facility] [phone] [address] [place] [address], [facility] [phone] from Last 3 Months Insurance Advance Directives * Full Code (Latest Code Status on File) Date ActivatedDate InactivatedComments01/21/2023 8:09 AM01/21/2023 4:07 PM NameRelationshipHealthcare Agent RelationshipCommunicationLarry Covert Sr.Other Primary Decision Maker* Care Teams Team MemberRelationshipSpecialtyStart DateEnd Date Emmie Daley, [employer] MAINFRAME SYSTEMS PROGRAMMER - PURCHASING DEPARTMENT CLERK PCP - General12/12/22
--- OUTSIDE RECORDS SUMMARY | 2025-10-10 11:04 | XMS_ITS | Clinical Summary ---
Author Organization [facility] Healthcare Address [address] [place] [address] Care Team Providers Care Proof Technician Name Role Phone Emmie Daley MOE Unavailable [phone] Unallocated, [facility] Provider Primary Care Provi nabeel Reid Valdez MD Unavailable Allergies Active AllergyReactionsCriticalityNoted DateCommentsAttends Briefs SmallRashLow 01/27/2013ee FartoHcraqbiskojNzda08/10/2013 Other reaction(s): Not available RxoaerxaumHpcqs70/14/2023 Medications MedicationSigDispense QuantityRefillsLast FilledStart DateEnd DateStatus albuterol HFA 90 mcg/act inhaler TAKE TWO PUFFS BY MOUTH EVERY 6 HOURS IJRBNO1403/03/2023ctive EPINEPHrine (Epipen) 0.3 MG/0.3ML injection syringe USE DIRECTED FOR BEE XJANRV3801/16/2023ctive gabapentin (Neurontin) 300 MG capsule Take 300 mg by mouth at xuymlll4408/20/2023ctive lisinopril 10 MG tablet Take 10 mg [...] tablet Take 1 tablet by mouth at mnejgaj5508/20/2023ctive Active Problems No known active problems Family [...] InformationValueDate RecordedSex Assigned at Not on fileLegal ZvbHrjmso97/15/2023 6:55 PM EDTGender IdentityNot on fileSexual OrientationNot on file Last Filed Vital Signs Vital SignReadingTime TakenCommentsBlood Wpywzycy837/80007/08/2024 12:09 PM EDT Tfcoy703707/08/2024 12:09 PM EDTTemperature--Respiratory Nptt322307/08/2024 12:09 PM EDTOxygen Saturation--Inhaled Oxygen Concentration--Rtqhgh99.6 kg (202 lb) 07/08/2024 12:09 PM QTPRjtevv758.3 cm (5' 3.5 )07/08/2024 12:09 PM EDTBody Mass Index35.22007/08/2024 12:09 PM EDT Plan of Treatment Health MaintenanceDue DateLast DoneCommentsCT Rrlsrwqjajyl63/17/1957Colonoscopy 1956Colorectal Cancer Gxtgofeld89/17/1957FIT-DNA1956FIT1956 FOBT1956 8850Ovtcvzevbmxxp32/17/5254Cvanmixvz60OVID-19 Vaccine ( season)/07/2024, 08/14/2022, 01/13/2022, Additional history existsInfluenza Vaccine (#1)/, 07/29/2024, 08/20/2023, Additional history existsMedicare Annual Wellness (AWV)09/13/2025 09/13/2024, 08/20/2023, 07/30/2022neumococcal Vaccine: 65+ YearsCompleted 10/02/2022, 10/02/2022 Insurance Care Teams Team MemberRelationshipSpecialtyStart DateEnd Date Unallocated, [place], [address] [place] [address] [facility] - [facility] Reid Valdez MD [address] [place] [address] PCP - [facility]/ Emmie Daley CRNP Referring PhysicianNurse Practitioner07/08/24
--- OUTSIDE RECORDS SUMMARY | 2025-10-10 11:04 | XMS_ITS | Clinical Summary ---
Author Organization [facility] Address [address] [place] [address] Care Team Providers Care Labor Specialist Name Role Phone Emmie Daley MD Primary Care Provider [phone] Allergies Active AllergyReactionsCriticalityNoted VuriVarlzdsuHfaytlsoRkzpTal28/10/2013ee Venom Protein (Honey Bee)OoqtxsfgwwuChho88/10/2013 Other reaction(s): Not available SvgkrqbdmmVgkhz82/14/2023 Medications MedicationSigDispense QuantityRefillsLast FilledStart DateEnd DateStatus albuterol 90 mcg/actuation inhaler TAKE TWO PUFFS BY MOUTH EVERY 6 HOURS NEEDEDActive EPINEPHrine 0.3 mg/0.3 mL auto-injector USE DIRECTED FOR BEE YIOYRG7801/16/2023ctive hkdvzmziozp-tagapegiz-mboxirlo 100-62.5-25 mcg blister with device INHALE 1 [...] tablet ctive Active Problems ProblemNoted DateDiagnosed DateUncontrolled uymykxsoetdf10/14/2023 Assessment & Plan (06/10/2023 11:26 AM EDT): [...] daily for better HTN management Mitral valve krjdotgqhujfl84/04/2023 Overview (05/23/2023): Mild to mod per 04/26/21 ECHO Assessment & Plan (06/10/2023 11:26 AM EDT): Echo reviewed with pt and noted Mod MV regurg Assessment & Plan (05/23/2023 1:00 PM EDT): Repeat echo ordered in light of SOB with exertion and MR noted on prior echo Intermittent utvitwigroil84/04/2023 Assessment & Plan (05/23/2023 1:01 PM EDT): [...] and electrolytes and pt voiced understanding Tobacco qqrsjgspby83/04/2023 Assessment & Plan (05/23/2023 1:01 PM EDT): Tobacco use is unchanged- pt is not willing to quit smoking at this time Uncomplicated alcohol etilkdxpod86/04/2023 Assessment & Plan (05/23/2023 1:01 PM EDT): [...] of the skull base. History of cervical nrbeez03 Overview (05/23/2023): resected Renal xcpezlxu41rthritis of left knee Internal derangement of left kneehondromalacia patellae of left kneehronic pain ymnedumh13 Ptnrghmbkuhy63Lumbar post-laminectomy /23/2023 05/23/2023Obesity, ufuypf57Sensorineural hearing loss (SNHL) of left ear with unrestricted hearing of right earhronic bronchitis with rjgesvgdl20 Overview (05/23/2023): Last Assessment & Plan: She [...] in left ear Overview (05/23/2023): lifelong lifelong Uqhpzuw71 Overview (05/23/2023): Last Assessment & Plan: I spent 5 minutes counseling-encouraging her in smoking cessation. Last Assessment & Plan: I spent 5 minutes counseling-encouraging her in smoking cessation. Graves' xkkybnc10Essential orperriopenl61 Chest painDD (attention deficit disorder)02/06/2012 05/23/20234907Lwuxkpfs06Tobacco abuse Immunizations ImmunizationAdministration DatesNext DueInfluenza, Seasonal, Quadrivalent, Kazbvtlzzr41/11/2022Moderna SARS-CoV-2 Ectnnfvimst07/27/2022neumococcal Conjugate PCV Family History Medical HistoryRelationNameCommentsCoronary artery [...] Last Filed Vital Signs Vital SignReadingTime TakenCommentsBlood Lhirtaip242/72011/17/2023 10:32 AM EST Qunec658311/17/2023 10:32 AM ESTTemperature--Respiratory Rate--Oxygen Saturation 94%11/17/2023 10:32 AM ESTInhaled Oxygen Concentration--Kqbewc69.1 kg (203 lb) 11/17/2023 10:32 AM BGVXpatgr799.8 cm (5' 2.5 )11/17/2023 10:32 AM ESTBody Mass Index36.54011/17/2023 10:32 AM EST Plan of Treatment Health MaintenanceDue DateLast DoneCommentsCT Atkljvzsxfsb97/17/1957Colonoscopy 1955Colorectal Cancer Wlvuuqipi73/17/1957FIT-DNA1956FIT1955 FOBT1955Medicare Annual Wellness (AWV)1955 4712Aaqsrgtebuzog20/17/1957 Depression Knkftoiae79/17/1969Adult Fplncvu7512/06/1978Zoster Vaccines (1 of 2) 2006Fall Risk Comqgdlkj53/17/0340Fnceojujj41, 08/13/2022 COVID-19 Vaccine ( season), 01/13/2022, 01/13/2022, Additional history existsInfluenza Vaccine (#1)511/10/2022, 07/30/2022neumococcal Vaccine: 50+ QctgcVurkfyaad40/14/2022HIB VaccinesAged Out No longer eligible based on [...]
--- OUTSIDE RECORDS SUMMARY | 2025-10-10 11:04 | XMS_ITS | Patient Health Record ---
Author Organization [facility] Address [address] [place] [address] Care Team Providers Care Cotton Weigher Operator Name Role Phone JAIRO OCHOA Primary Care Provider Unavail able Michi Drake Unavailable [phone] SamaniegoKarthik cornejo Unavailable [phone] Allergies Allergen (clinical drug ingredient) Drug/Non Drug [...] alcohol in the p ast year? No Ylryvf7GadyqriuhpcsqdDioqghbj Problems Problem Type SNOMED Code ICD Code Onset Dates Problem Status W/U Status Risk Notes Problem Other extraarticular fracture of lower end of right radius, subsequent encounter for closed fracture with routine healing (S52.551D)ActiveconfirmedProblem Osteoarthritis of knee (968944184)Primary osteoarthritis of right knee (M17.11) ActiveconfirmedProblemOther closed extra-articular fracture of distal end of right radius, initial encounter (S52.551A)ActiveconfirmedProblemLumbosacral spondylosis without myelopathy (16824966)Spondylosis without myelopathy or radiculopathy, lumbar region (M47.816)ActiveconfirmedProblemCervical spondylosis without myelopathy (826505112)Spondylosis without myelopathy or radiculopathy, cervical region (M47.812)Activeconfirmed Plan Of Treatment Pending Test Test Name Order Date SCC- KNEE 4 VIEW RIGHT [id number] 07/26/2024 SCC- WRIST 3 VIEW RIGHT 21751 05/03/2024 SCC- WRIST 3 VIEW RIGHT 58868 05/10/2024 SCC- WRIST 3 VIEW RIGHT 93728 06/07/2024 SCC- WRIST 3 VIEW RIGHT 54541 07/05/2024 Insurance Providers Payer Name Payer Address Payer Phone Subscriber Number Group Number Insured Name Patient Relationship to Insured Coverage Start Date Coverage End Date MEDICARE UHC DUAL COMPLETE [address] [place] [phone] [id number] OHDSNP FRANKO NUNEZ Self - patient [place] the [place] [address] [place] [id number] Pilar NUNEZ - patient is the insuredMedicare [employer] of [place]PO [address] [place]ETTE QURESHI [id number], KARENSelf - patient is the [id number] 2024 Medical (General) History Medical History History ICD Code Latex Allergy AsthmaCancerKidney troubleHigh Blood Pressure
--- OUTSIDE RECORDS SUMMARY | 2025-10-10 11:05 | XMS_ITS | Encounter Summary ---
Author Organization [facility] Address [address], [address] [place] [address] Care Team Providers Care Public Health Representative Name Role Phone Emmie Daley DIGITAL DATA ANALYST - PUNCH BOX TENDER Primary Care Prov ider Encounter Details DateTypeDepartmentCare Team (Latest Contact Info)Hwbyytuekma23/04/2025Orders Only [facility] Pulmonology [address] [facility] [address] [place] [address] Dennis Myers MA Centrilobular emphysema Social History Tobacco UseTypesPacks/DayYears UsedDateSmoking Tobacco: Every CfxJgeyjoogfj498 Started: 1965Smokeless Tobacco: Never Comments:Smokes 6-8 cigs/day Alcohol UseStandard Drinks/WeekCommentsYes0 (1 standard drink = 0.6 oz pure alcohol)Beer 2-3 every 2 weeksCommentsNoSex and Gender InformationValue Date RecordedSex Assigned at BirthNot on fileLegal RuiNivpey22/12/2013 10:17 PM ESTGender IdentityNot on fileSexual OrientationNot on fileOccupationIndustryJob Start 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 on fileNot on fileNot on filedocumented as of this encounter Plan of Treatment DateTypeDepartmentCare Team (Latest Contact Info)Xsmljyzmzzo18/05/2026 9:30 AM ESTOffice Visit [facility] UR[facility] Part of [address] [place] [phone] Katya Stephens, DIGITAL DATA ANALYST - PUNCH BOX TENDER [address] [place] [address] [address] [place] [address] 1-2m /fu11/29/2025 11:00 AM ESTOffice Visit [facility] Pul[facility]ology [address] [place] [address] Onesimo Spaulding DO [address] [facility] [address] [place] [address] 3 [place] F/U COPD02/07/2026 2:20 PM EDTOffice Visit [facility] CARDIOLOGY Part of [address] [place] [phone] Michi Quezada MD [address] [place] [address] [phone] Referral from Emmie with Congestive heart hlalyfh0303/07/2026 10:00 AM EDTOffice Visit [facility] UROLOG[facility] Part of [address] [place] [phone] Katya Stephens, DIGITAL DATA ANALYST - PUNCH BOX TENDER [address] [place] [address] [address] [place] [address] 6m pvrdocumented as of this encounter Visit Diagnoses Diagnosis Centrilobular emphysema Other emphysema documented in this encounter Additional Health Concerns AssessmentNoted TimeA fall risk assessment has been completed for the patient 08/30/2025 8:20 AM ESTdocumented as of this encounter Care Teams Team MemberRelationshipSpecialtyStart DateEnd Date Emmie Daley, DIGITAL DATA ANALYST - PUNCH BOX TENDER PCP - General12/12/22documented as of this encounter
--- OUTSIDE RECORDS SUMMARY | 2025-10-10 11:05 | XMS_ITS | Encounter Summary ---
Author Organization [facility] Address [address], [address] [place] [address] Care Team Providers Care Car Pilot Name Role Phone Emmie Daley Rick TOOL SALVAGE WORKER - CLUTCH INSPECTOR Primary Care Prov ider Encounter Details DateTypeDepartmentCare Team (Latest Contact Info)Tfzuvaclzrh93/04/2025Orders Only [facility] Pulmonology [address] [facility] [address] [place] [address] Onesimo Spaulding DO [address] [place] [address] Social History Tobacco UseTypesPacks/DayYears UsedDateSmoking Tobacco: Every EurUvbgiebrtm697 Started: 1965Smokeless Tobacco: Never Comments:Smokes 6-8 cigs/day Alcohol UseStandard Drinks/WeekCommentsYes0 (1 standard drink = 0.6 oz pure alcohol)Beer 2-3 every 2 weeksCommentsNoSex and Gender InformationValue Date RecordedSex Assigned at BirthNot on fileLegal DhiLensww92/12/2013 10:17 PM ESTGender IdentityNot on fileSexual OrientationNot on fileOccupationIndustryJob Start 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 on fileNot on fileNot on filedocumented as of this encounter Plan of Treatment DateTypeDepartmentCare Team (Latest Contact Info)Fioqvcraqga23/05/2026 9:30 AM ESTOffice Visit [facility] UROLOG[facility] Part of [address] [place] [address] Katya Stephens, TOOL SALVAGE WORKER - CLUTCH INSPECTOR [address] [place] [address] [address] [place] [address] 1-2m /fu11/29/2025 11:00 AM ESTOffice Visit [facility] Pulmonology [address] [address] [facility] [place] [address] Onesimo Spaulding, DO [address] [place] [address] 3 [place] F/U COPD02/07/2026 2:20 PM EDTOffice Visit [facility] CARDIOLOGY Part of [address] [place] [address] Michi Quezada MD [address] [place] [address] Referral from Emmie with Congestive heart ongaqcd9703/07/2026 10:00 AM EDTOffice Visit [facility] UROLOGY Part of [address] [place] [address] Katya Stephens, TOOL SALVAGE WORKER - CLUTCH INSPECTOR [address] [place] [address] [address] [place] [address] 6m pvrdocumented as of this encounter Procedures Procedure NamePriorityDate/TimeAssociated DiagnosisCommentsCBC WITH AUTO PDUCPNXOCWPVCwzubhh49/04/2025 documented in this encounter Results * CBC with Auto Differential (09/22/2025)ComponentValueRef RangeTest Method Analysis TimePerformed AtPathologist SignatureWBC7.310^3/mLRBC4.9910^6/??L Hpbsomyilh91.712.0 - 16.0 g/zLSgurmaeopi35.036 - 46 %MCV88.3uCKWI32.5pgMCHC 33.4g/wHAstqlgmgd835T/??LRDW13.0%PVI219jNOujkaymjpvk %55.9%Lymphocytes %31.2% Monocytes %9.5%Eosinophils %2.5%Basophils %0.8%Neutrophils Absolute4.1/??L Lymphocytes Absolute2.3/??LMonocytes Absolute0.7/??LEosinophils Absolute0.2 /??LBasophils Absolute0.1/??LSpecimen (Source)Anatomical Location / Laterality Collection Method / VolumeCollection TimeReceived TimeBloodBLOOD SPECIMEN / Sfeipay4209/22/2025 Narrative Authorizing ProviderResult TypeResult StatusNatSan Luis Rey Hospital DOHEMATOLOGY ORDERABLES Edited Result - Final documented in this encounter Visit Diagnoses Not on filedocumented in this encounter Additional Health Concerns AssessmentNoted TimeA fall risk assessment has been completed for the patient 08/30/2025 8:20 AM ESTdocumented as of this encounter Care Teams Team MemberRelationshipSpecialtyStart DateEnd Date Emmie Daley, TOOL SALVAGE WORKER - CLUTCH INSPECTOR PCP - General12/12/22documented as of this encounter
--- OUTSIDE RECORDS SUMMARY | 2025-10-10 11:05 | XMS_ITS | Patient Health Record ---
Author Organization [facility] Address [address] [place] [address] Care Team Providers Care Contract Consultant Name Role Phone Jairo Walker Primary Care Provider UnavailShakir Villa Unavailable [phone] Fan Howard Unavailable [phone] Allergies No Known Allergies Results Component Value Reference Range Notes CT lung screening low-dose ( Not yet reviewed by provider) Interpretation: Performing Lab: Notes/Report: Source Facility: [place] [address] CT Scan Report Signed Patient: ROBYN NUNEZ MR#: [id number] : 1955 Acct:[id number] Age/Sex: 69 / F ADM Date: 09/06/25 Loc: CARD Attending Dr: Fan Howard D.O. Ordering Physician: Fan Howard D.O. Date of Service: 09/06/25 Procedure(s): CT lung screening low-dose Accession Number(s): [id number] cc: JAIRO WALKER [place] [id number] Patient Name: ROBYN NUNEZ MRN: [id number] date: 1955 Sex: F Assigned Patient Location: CARD Current Patient Location: CARD Accession/Order Number: [id number] Exam Date: 09/06/2025 12:31 Report Date: 09/06/2025 19:41 At the request of: FAN HOWARD Procedure: CT lung screening low-dose CT Chest lung screening without contrast TECHNIQUE: Axial imaging with 2-D reconstruction. The CT exam was performed using one or more the following dose reduction techniques: Automated exposure control, adjustment of the MA and/or Kv according to patient size, or use of the iterative reconstruction technique. History: 59 pack-year smoking history COMPARISON: None THYROID: Unremarkable TRACHEA AND BRONCHI: Patent ESOPHAGUS: Unremarkable. HEART: Within normal limits PERICARDIAL EFFUSION: None CORONARY ARTERY CALCIFICATION: Present MEDIASTINUM: No adenopathy. No pneumoperitoneum. No mediastinal hematoma. PULMONARY ALISIA: No hilar mass or adenopathy is seen. THORACIC AORTA Unremarkable LUNG NODULE . Tiny 3 mm nodule is unchanged. No enlarging or new nodules. LUNGS: Emphysema PLEURAL EFFUSION: None PNEUMOTHORAX: No pneumothorax seen. CHEST WALL: No abnormality AXILLA:Unremarkable BONY STRUCTURES Intact UPPER ABDOMEN: Images of the upper abdomen are noncontributory. CT/CT lung screening low-dose IMPRESSION: No visible lung nodule. FINAL ASSESSMENT: Benign behavior/appearance Lung-RADS Version 1.0 Assessment Category: 2 REMARKS: Continued annual screening with LDCT in 12 months is recommended. Impression dictated by: Rj Pappas M.D. 09/06/2025 7:41 PM Dictation Location: [place] [address] Electronically authenticated by: [id number] Y Date: 09/06/2025 19:41 Dictated By: Rj Pappas D.O. Signed By: 09/06/251943 DD/ 40 TD/TT: Head Of Store Operations: CBC AUTO DIFF (Not yet revie wed by provider) Interpretation: Performing Lab: Notes/Report: [facility] , White Blood Count 7.3 4.0-11.0 10 3/uL Red Blood Count4.994.20-5.40 10 6/eOTmyjfyoqcr12.712.0-16.0 g/xSVwkhaisdbg16.0 36.0-48.0 %Mean Corpuscular Bfnytv12.281.0-99.0 fLMean Corpuscular Hemoglobin 29.526.7-34.0 pgMean Corpuscular HGB Conc33.429.9-35.2 g/dLRed Cell Distribution Width13.011.0-15.0 %Platelet Einlj256876-109 10 3/uLMean Platelet Psfvuw82.99.5- 13.5 fLNeutrophils Percent Auto55.943.0-75.0 %Lymphocytes Percent Auto31.220.5- 60.0 %Monocytes Percent Auto9.51.7-12.0 %Eosinophils Percent Auto2.50.9-7.0 % Basophils Percent Auto0.80.2-2.0 %Immature Granulocytes Pct Auto0.10.0-0.5 % Neutrophils Absolute Auto4.11.4-6.5 10 3/uLLymphocytes Absolute Auto2.31.2-3.8 10 3/uLMonocytes Absolute Auto0.70.3-0.8 10 3/uLEosinophils Absolute Auto0.20.0- 0.7 10 3/uLBasophils Absolute Auto0.10.0-0.1 10 3/uLImmature Granulocytes Abs Auto0.010.00-0.03 10 3/uLPerforming Lab:see noteML - [facility] LBXR ankle RT min 3V (Not yet reviewed by provider) Interpretation: Performing Lab: Notes/Report: Source Facility: [place] [address] XRay Report Signed Patient: ROBYN NUNEZ MR#: [id number] : 1955 Acct:[id number] Age/Sex: 68 / F ADM Date: 11/22/24 Loc: RAD Attending Dr: Henry Wong Ordering Physician: Henry Wong Date of Service: 11/22/24 Procedure(s): XR ankle RT min 3V Accession Number(s): [id number] cc: JAIRO WALKER ; Henry Wong [place] [address] Patient Name: ROBYN NUNEZ MRN: [id number] date: 1955 Sex: F Assigned Patient Location: RAD Current Patient Location: RAD Accession/Order Number: [id number] Exam Date: 11/22/2024 12:00 Report Date: 11/25/2024 [...] Gonzales M.D. Signed By: 11/25/2451 DD/ TD/TT: Head Of Store Operations: Reason For Referral Reason referral for aundrea We have an old system that i will have to send [facility] Diagnosis 1 Other instability, r ight ankle (M25.371) Referral Organization [facility] (PODIATRY) Referring Provider First Name Shakir Referring [...] Administration Date Status Comme nts Flu, Fluad (46530) 65 yrs+, single-dose syringe (2006-6035) Unknown 07/30/2022 Administered Flu, Fluad (34217) 65 yrs+, single-dose syringe (5349-3203)Urbdaby7808/20/2023 AdministeredPneumococcal (Prevnar 20)Fktsokq9310/02/20221464HyqlbhlzeezbIKXB-VIQ-2 (COVID 19) bivalent 30 mcg/0.3 ml wiqoOygchyc60/26/2022Administered Social History Tobacco Use: Social History Observation [...] Status W/U Status Risk Notes Problem Obesity (100561108) Obesity, unspecified (E66.9) ActiveconfirmedProblemCentrilobular emphysema (03400484)Centrilobular emphysema (J43.2)ActiveconfirmedProblemLong-term current use of inhaled steroid (972815082)vermin 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 (current) use of inhaled steroids (Z79.51)Activeconfirmed ProblemMental disorder caused by drug (856987115)Cigarette nicotine dependence with nicotine-induced disorder (F17.219)ActiveconfirmedProblemMultiple pulmonary nodules (764435621)Multiple pulmonary nodules (R91.8)ActiveconfirmedProblemBody mass index 35.00 to 39.99 (617201746622300)Body mass index [BMI] 37.0-37.9, adult (Z68.37)Activeconfirmed Encounters Encounter Location Date Provider Diagnosis [facility] (POD[facility]) [address] [place] [address] [place] [address] 11/23/2024 Shakir Kinney Displaced fracture of lateral malleolus of right fibula, sequela S82.61XS ; Other instability, right ankle M25.371 ; Strain of muscle(s) and tendon(s) of peroneal muscle group at lower leg level, right leg, initial encounter S86.311A ; Other specified joint disorders, right ankle and foot M25.871 ; Cigarette nicotine dependence with nicotine-induced disorder F17.219 and Right ankle pain M25.571 [facility] (POD[facility]) [address] [place] [address] [place] [address] 12/23/2024 [facility] [address] [place] [address]/10/2025 Fan StanleysaCentrilobular emphysema J43.2 Assessments Encounter Date Diagnosis (ICD [...] significant cardiovascular disease. She recently seen her cost estimator but related that she is going to see a new cost estimator at the end of the month. She [...] Ankle RT (3 views) * (161) 11/23/2024 CBC AUTO DIFF 09/22/2025 XR ankle RT min 3V 11/25/2024 CT lung screening low-dose 09/06/2025 Future Test Test Name Order Date CT Chest Low Dose for Screening* 025 Insurance Providers Payer Name Payer Address Payer Phone Subscriber Number Group Number Insured Name Patient Relationship to Insured Coverage Start Date Coverage End Date [facility] DU[facility] PRIMARY MEDICARE [address] [place] [address] [phone] [id number] Robyn Nunez Self - patient is the insured 5 Medical (General) History Medical History History ICD Code Centrilobular emphysema J43.2 Cigarette nicotine dependence with nicot ine-induced disorder F17.219 Multiple pulmonary nodules R91.8 longterm (current) use of inhaled stero ids Z79.51 Graves' disease E05.00 HTN (hypertension) I10 Mitral valve regurgitation I34.0 PAD (peripheral artery disease) I73.9 Osteoarthritis M19.90 History of cervical cancer Z85.41 Surgical History Surgery Date(Month/Year) right knee arthroscopy hysterectomytonsillectomyback surgeryappendectomyright foot surgeryureteral stentlithotripsy
--- OUTSIDE RECORDS SUMMARY | 2025-10-10 11:05 | XMS_ITS | Encounter Summary ---
Author Organization [facility] Address [address], [address] [place] [address] Care Team Providers Care [place] Worker Name Role Phone Emmie Daley Rick SUPERVISOR WATER SOFTENER SERVICE - REGISTERED RADIOGRAPHER Primary Care Prov ider Reason for Visit * ReasonOnset DateCommentsmedication gzqrlmp0810/04/2025 Encounter Details DateTypeDepartmentCare Team (Latest Contact Info)Lxgskkqploi84/16/2025Telephone [facility] UROLOGY Part of [address] [place] [address] Angel Sow PA-C [address] [place] [address] [address] [place], [place] [phone] medication concern Social History Tobacco UseTypesPacks/DayYears UsedDateSmoking Tobacco: Every GciMcvbkafzic074 Started: 1965Smokeless Tobacco: Never Comments:Smokes 6-8 cigs/day Alcohol UseStandard Drinks/WeekCommentsYes0 (1 standard drink = 0.6 oz pure alcohol)Beer 2-3 every 2 weeksCommentsNoSex and Gender InformationValue Date RecordedSex Assigned at BirthNot on fileLegal JuhCweubk05/12/2013 10:17 PM ESTGender IdentityNot on fileSexual OrientationNot on fileOccupationIndustryJob Start 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 on fileNot on fileNot on filedocumented as of this encounter Plan of Treatment DateTypeDepartmentCare Team (Latest Contact Info)Pnbynqqzsbf70/05/2026 9:30 AM ESTOffice Visit [facility] Part of [address] [place] [address] Katya Stephens, SUPERVISOR WATER SOFTENER SERVICE - REGISTERED RADIOGRAPHER [address] [place] [address] [address] [place] [address] 1-2m /fu11/29/2025 11:00 AM ESTOffice Visit [facility] Pul[facility]ology [address] [place] [address] Onesimo Spaulding DO [address] [facility] [address] [place] [address] 3 [place] F/U COPD02/07/2026 2:20 PM EDTOffice Visit [facility] CARDIOLOGY Part of [address] [address] Michi Quezada MD [address] [place] [address] Referral from Emmie with Congestive heart uegirnu1703/07/2026 10:00 AM EDTOffice Visit [facility] Part of [address] [place] [address] Katya Stephens, SUPERVISOR WATER SOFTENER SERVICE - REGISTERED RADIOGRAPHER [address] [place] [address] [address] [place] [address] 6m pvrNameTypePriorityAssociated DiagnosesOrder ScheduleBasic Metabolic PanelLab Routine Incomplete bladder emptying Mixed incontinence Expected: 10/18/2025, Expires: 10/04/2026documented as of this encounter Visit Diagnoses Diagnosis Incomplete bladder emptying- Primary Mixed incontinence Mixed incontinence urge and stress (male)(female) documented in this encounter Additional Health Concerns AssessmentNoted TimeA fall risk assessment has been completed for the patient 08/30/2025 8:20 AM ESTdocumented as of this encounter Care Teams Team MemberRelationshipSpecialtyStart DateEnd Date Emmie Daley, SUPERVISOR WATER SOFTENER SERVICE - REGISTERED RADIOGRAPHER PCP - General12/12/22documented as of this encounter
--- OUTSIDE RECORDS SUMMARY | 2025-10-10 11:05 | XMS_ITS | Clinical Summary ---
Author Organization [facility] Address [address] [place] [address] Care Team Providers Care Track Rider Name Role Phone Ruy Covarrubias MD Unavailable [phone] Allergies Active AllergyReactionsCriticalityNoted DateCommentsBee VenomAnaphylaxis 01/27/2013*Paper NurfFxxf20/10/2013 Medications MedicationSigDispense QuantityRefillsLast FilledStart DateEnd DateStatus Respiratory Therapy Supplies (PATRICE PD) XX DANIELLE Active Tiotropium [place] Monohydrate ([employer] [place]) take 1 Cap [...] Medical HistoryRelationNameCommentsCoronary Artery DiseaseBrother 5CABGCancer FatherleukemiaHeart FailureFatherDiabetesMotherRelationNameStatusCommentsBrother 3Owwwk30 CABG age 59 (01/20/2013)Brother 1Tvzfo70 (01/20/2013)Brother 1Cjbvx49 (01/20/2013)Brother 6Dajbe68 (01/20/2013)Brother 5Daughter 6Iwffz59 (01/20/2013) Daughter 1Xfbgy43 (01/20/2013)FatherDeceased (Age 72)ehvuyrvyCyuqbyHgxhb33 DM age 41, born with one lung (01/20/2013)WvuxqrPquzp11 (01/20/2013) Social History Tobacco UseTypesPacks/DayYears UsedDateSmoking Tobacco: Every DayCigarettes0.547 Smokeless Tobacco: Never Tobacco Cessation:Ready to Q uit: No; Counseling Given: Yes Alcohol UseStandard Drinks/WeekCommentsYes2.5 (1 standard drink = 0.6 oz pure alcohol)On 01/20/2013 reports drinking 4-5 beers once a week, but several months in a row without.CommentsNoSex and Gender InformationValueDate Recorded Sex Assigned at BirthNot on fileLegal VnfZstxne87/18/2013 2:39 PM EDTGender IdentityNot on fileSexual OrientationNot on fileOccupationIndustryJob Start Date Job End DateNot on fileNot on fileNot on fileNot on file Last Filed Vital Signs Vital SignReadingTime TakenCommentsBlood Qftliict245/5803 12:52 PM EDT Xpjpt5962 12:52 PM QGPBcctodpmcav66.8 ??C (98.2 ??F)01/11/2014 12:52 PM EDTRespiratory Ccen100601/11/2014 12:52 PM EDTOxygen Lcusqmtzqr06%09/20/2013 5:45 PM ESTInhaled Oxygen Concentration--Glgeev31.2 kg (185 lb 11.2 oz)01/11/2014 12:52 PM BADEplnxx305.3 cm (5' 3.5 )09/20/2013 8:40 AM ESTBody Mass Index32.38 09/20/2013 8:40 AM EST Plan of Treatment Health MaintenanceDue DateLast DoneCommentsDEXA SCAN VXIYYOUDRV25/17/1956 HEPATITIS C VIRUS YUKNGATLH09/17/4759NUCYQDF05/17/1957PNEUMOCOCCAL VACCINE SERIES (1 of 2 - PCV)1975TDAP (ADULT)1975CERVICAL CANCER SCREENING WXLBWXOHXX70/17/1978LIPID BWFGROSRN09/17/1997COLORECTAL CANCER SCREENING ALFJQJGCXO12/17/2002LUNG CANCER SCREENING OJWKECNFXO14/17/2007RSV VACCINE (1 - Risk 50-74 years 1-dose series)2006ZOSTER (SHINGLES) VACCINE (1 of 2) 2006MAMMOGRAM SCREENING QHUPTZPQWD87/25/202310/2COVID-19 VACCINE ( season), 01/13/2022, 07/14/2021, Additional history existsINFLUENZA VACCINE (#1)HEP B VACCINEAged OutNo longer eligible based on patient's age to complete this topic Advance Directives For more information, please contact: [phone] (7:30 AM - 6PM [facility], Friday-Friday) * Full Code (Latest Code Status on File) Date ActivatedDate MhfceuieuxyJgkzjdci72/2/2013 8:32 AM09/20/2013 8:27 PM * Full Code Date ActivatedDate InactivatedComments01/27/2013 8:12 AM01/27/2013 2:26 PM Care Teams Team MemberRelationshipSpecialtyStart DateEnd Date Ruy Covarrubias MD PCP - Referring 9Bhduwzitrgfraq6/3/13
== END 2025-10-10 10:58 | disposition home or self-care (01) ==
LOC: WC 10:57
PROVIDERS: PCP Nurse Practitioner; Visit Provider Physician Assistant
DX: L84 Corns and callosities (principal)
CPT/HCPCS: G0463